=== PATIENT | female | born 1945 | race Caucasian/White ===

== ENCOUNTER 2023-07-28 13:50 | Emergency (ER) | payer MEDICARE, OTHER, SELFPAY ==
[2023-07-28] VITALS (14 sets, daily range): BP systolic 96–108; BP diastolic 54–65; PULSE 85–99; RESP 18–29; TEMP 36.7; O2SAT 92–96; BMI 25.7
--- NOTE | 2023-07-28 14:01 | ED.SOB1 ---
HPI - SOB/Dyspnea General Chief Complaint: Upper Respiratory Infection Stated Complaint: SHORTNESS OF BREATH/COUGH Time Seen by Provider: 07/28/23 14:01 Source: patient and family Mode of arrival: ambulance History of Present Illness HPI Narrative: tthis patient is here from home with her for evaluation of shortness of breath. She was in [place] approximately a week ago for not feeling well. They gave her some potassium treatments but did not diagnose influenza, Covid or respiratory syncytial virus. Her cough has continued. She is not on any antibiotics. She has a brain tumor, she is not ambulatory but she is awake and alert. Related Data Home Medications Medication Instructions Recorded Confirmed apixaban 5 mg tablet (Eliquis) 5 mg PO BID 07/28/23 07/28/23 citalopram 20 mg tablet 20 mg PO DAILY 07/28/23 07/28/23 dexamethasone 2 mg tablet 2 mg PO DAILY 07/28/23 07/28/23 famotidine 20 mg tablet 20 mg PO DAILY 07/28/23 07/28/23 furosemide 20 mg tablet 20 mg PO BID 07/28/23 07/28/23 hydrochlorothiazide 25 mg tablet 25 mg PO DAILY 07/28/23 07/28/23 lisinopril 10 mg tablet 10 mg PO DAILY 07/28/23 07/28/23 lomustine 40 mg capsule (Gleostine) 160 mg PO .COMPLEX 07/28/23 07/28/23 potassium chloride 20 mEq 20 meq PO BID 07/28/23 07/28/23 tablet,extended release(part/cryst) Allergies Allergy/AdvReac Type Severity Reaction Status Date / Time No Known Drug Allergies Allergy Verified 07/28/23 14:01 Exam Narrative Exam Narrative: patient's awake alert good historian here with several family members. We also receive records from her other hospital. That institution her respiratory syncytial virus, Covid and influenza were all negative. BNP was negative as was troponin. Additionally I will mention at this stage and her who previously had lung cancer has oxygen at home, has nebulizer machine at home and also has pulse oximetry. She's been running ninety-two percent at home. She does feel better after nebulizer treatment here with less coughing. She is currently not on any antibiotics steroids or bronchodilators Examination she's not confused she's awake alert good historian. Her skin is warm dry mucous members are moist and pink with no evidence of dehydration. Lungs have scattered bronchospastic type cough or oximetry maintained ninety-three percent. Cardiac evaluation her EKG is normal with no ST segment elevation or malignant ectopy. There is nonspecific T-wave flattening. Otherwise is normal. Her legs do not have any edema. Skin perfusion is excellent. Constitutional Vital Signs, click to edit/add: Last Vital Signs Temp 98.0 F 07/28/23 13:58 Pulse 99 H 07/28/23 13:58 Resp 18 07/28/23 13:58 BP 108/54 07/28/23 13:58 Pulse Ox 96 07/28/23 13:58 O2 Del Method Room Air 07/28/23 13:58 Course Vital Signs Vital signs: Vital Signs Temperature 98.0 F 07/28/23 13:58 Pulse Rate 99 H 07/28/23 13:58 Respiratory Rate 18 07/28/23 13:58 Blood Pressure 108/54 07/28/23 13:58 Pulse Oximetry 96 07/28/23 13:58 Oxygen Delivery Method Room Air 07/28/23 13:58 Temperature 98.0 F 07/28/23 13:58 Pulse Rate 99 H 07/28/23 13:58 Respiratory Rate 18 07/28/23 13:58 Blood Pressure 108/54 07/28/23 13:58 Pulse Oximetry 96 07/28/23 13:58 Oxygen Delivery Method Room Air 07/28/23 13:58 MDM - SOB/Dyspnea MDM Narrative Medical decision making narrative: her repeat respiratory syncytial virus testing is positive. This institution. Otherwise her laboratory testing CBC troponin and BNP are all essentially normal. His findings are consistent with respiratory syncytial virus bronchiolitis. She does have the ability to take oxygen and steroid at home. We'll give her breathing treatments every four hours. Discharge Plan Discharge Chief Complaint: Upper Respiratory Infection Clinical Impression: Respiratory syncytial virus (RSV) bronchiolitis Patient Disposition: Home, Self-Care Time of Disposition Decision: 15:51 Prescriptions / Home Meds: No Action Eliquis 5 mg tablet 5 mg PO BID citalopram 20 mg tablet 20 mg PO DAILY furosemide 20 mg tablet 20 mg PO BID hydrochlorothiazide 25 mg tablet 25 mg PO DAILY Gleostine 40 mg capsule 160 mg PO .COMPLEX Rx Instructions: 160 mg orally Q6wks; dexamethasone 2 mg tablet 2 mg PO DAILY famotidine 20 mg tablet 20 mg PO DAILY lisinopril 10 mg tablet 10 mg PO DAILY potassium chloride 20 mEq tablet,ER particles/crystals 20 meq PO BID Additional Instructions: prednisone/albuterol/return if she deteriorates or has low oxygen saturation Stand Alone Forms: Portal Instructions Referrals: DENYS HINKLE [Primary Care Provider] - 1 week
--- NOTE | 2023-07-28 14:20 | ECG_ITS ---
[facility] Test Date: 2023-07-28 Pat Name: BRAD HANDY Department: Room: - Gender: Female [employer]sembling [employer]: : 1945 Requested By: [id number] Order Number: [id number] Reading MD: ORCAEL STANLEY Measurements Intervals [place] Rate: 89 P: 40 [place]: 152 QRS: 55 QRSD: 88 T: -69 QT: 338 QTc: 384 Interpretive Statements 1100 Sinus rhythm 1470 with occasional supraventricular premature complexes [address] depression, can't exclude inferolateral ischemia 9150 abnormal ECG No previous ECG available for comparison Electronically Signed On 07-29-2023 11:30:30 EST by ROCAEL STANLEY
--- NOTE | 2023-07-28 14:20 | XR_ITS ---
The [address] [address] Patient Name: BRAD HANDY MRN: [id number] date: 1945 Sex: F Assigned Patient Location: ER Current Patient Location: ED.MAIN Accession/Order Number: [id number] Exam Date: 07/28/2023 15:00 Report Date: 07/28/2023 15:50 At the request of: STEPHAN WRIGHT Procedure: XR chest 1V EXAM: XR chest 1V COMPARISON: None available. CLINICAL INDICATION: Cough. FINDINGS: The cardiomediastinal silhouette is within normal limits. Nonspecific obscuration left hemidiaphragm. No focal consolidation. No significant pleural effusion. No pneumothorax. XR/XR chest 1V IMPRESSION: Nonspecific obscuration left hemidiaphragm. Otherwise the lungs appear clear. Electronically authenticated by: ZAID CARRERA Date: 07/28/2023 15:50
[2023-07-28] MEDS: 0.9 % SODIUM CHLORIDE 1,000 ML 100 ML IV (14:37)
[2023-07-28] MEDS: IPRATROPIUM/ALBUTEROL SULFATE 3 ML AMPUL.NEB IH (14:40)
[2023-07-28 14:43] LABS: Basophils Percent Auto 0.4 % (0.2-2.0); Eosinophils Percent Auto 0.1 % (0.9-7.0); Hematocrit 33.7 % (36.0-48.0); Hemoglobin 10.5 g/dL (12.0-16.0); Immature Granulocytes Abs Auto 0.04 10^3/uL (0.00-0.03); Immature Granulocytes Pct Auto 0.5 % (0.0-0.5); Lymphocytes Absolute Auto 0.2 10^3/uL (1.2-3.8); Lymphocytes Percent Auto 2.2 % (20.5-60.0); Mean Corpuscular HGB Conc 31.2 g/dL (29.9-35.2); Mean Corpuscular Hemoglobin 30.8 pg (26.7-34.0); Mean Corpuscular Volume 98.8 fL (81.0-99.0); Mean Platelet Volume 10.4 fL (9.5-13.5); Monocytes Absolute Auto 0.3 10^3/uL (0.3-0.8); Monocytes Percent Auto 4.5 % (1.7-12.0); Neutrophils Absolute Auto 6.8 10^3/uL (1.4-6.5); Neutrophils Percent Auto 92.3 % (43.0-75.0); Platelet Count 203 10^3/uL (150-450); Red Blood Count 3.41 10^6/uL (4.20-5.40); Red Cell Distribution Width 14.5 % (11.0-15.0); White Blood Count 7.4 10^3/uL (4.0-11.0)
[2023-07-28 14:45] LABS: PCO2 VBG 35.9 mmHg (40.0-52.0); pH VBG 7.452 (7.330-7.430)
[2023-07-28 15:02] LABS: SARS-CoV-2 Ag NEGATIVE (NEGATIVE)
[2023-07-28 15:03] LABS: Influenza Virus A Antigen Negative; Influenza Virus B Antigen Negative; Internal Control Within Normal Limits; Respiratory Syncytial Virus Detected (NOT DETECTE)
[2023-07-28 15:05] LABS: Troponin I High Sensitivity 5.7 pg/mL (4.0-51.3)
[2023-07-29 15:59] LABS: SARS-CoV-2 NAA NOT DETECTED (NOT DETECTE)
== END 2023-07-28 16:15 | disposition home or self-care (01) ==
PROVIDERS: Emergency Provider Emergency Medicine Emergency Medical Services; PCP Family Medicine
DX: J21.0 Acute bronchiolitis due to respiratory syncytial virus (principal); Z79.01 Long term (current) use of anticoagulants; Z79.899 Other long term (current) drug therapy; Z20.822 Contact with and (suspected) exposure to COVID-19
CPT/HCPCS: 36415; 71045; 82800; 83880; 84484; 85025; 87420; 87635; 87798; 87804; 87811; 93005; 94640; 99285

== ENCOUNTER 2023-07-31 02:37 | Observation (INO) | payer MEDICARE, OTHER, SELFPAY ==
[2023-07-31] VITALS (34 sets, daily range): BP systolic 124–134; BP diastolic 63–83; PULSE 78–108; RESP 16–33; TEMP 36.3–37.3; O2SAT 91–98; BMI 26.6; BMI 27.7
--- OUTSIDE RECORDS SUMMARY | 2023-07-31 02:50 | XMS_ITS | CCD ---
Author Name Unknown Address [address] [place] [address] Organization [facility] Care Team Providers Care Communications Operator Name Role Phone RICH MEJÍA Attending Unavailable RICH MEJÍA Consulting Unavailable RICH MEJÍA Admitting Unavailable DR MILVIA HINKLE Primary Care Unavailable MD Milvia Hinkle Primary Care Provider DO Anastacio Friedman Attending Provider Milvia Hinkle Primary Care Provider [phone] Sherry Winchester RN Unavailable [phone] Anshul Riggs MD Unavailable [phone] Jessica Cartagena PA-C Unavailable Aníbal JEFFERSON, Marian Unavailable Unavailable Sherry Winchester RN Unavailable ANSHUL RIGGS Referring Unavailable MILVIA HINKLE Primary Care Unavailable MILVIA HINKLE Primary Care Unavailable JESSICA CARTAGENA Referring Unavailable MD Milvia Lynch Primary Care Pr ovider PAUL Dimas Emergency Provider Milvia Lynch Primary Care Un available Kayley Dimas Attending Unavailable Kayley Dimas Admitting Unavailable MAX STALLINGS Attending Unavailable MILVIA HINKLE Primary Care Unavailable ANSHUL RIGGS Referring Unavailable MILVIA HINKLE Primary Care Unavailable MILVIA HINKLE Primary Care Unavailable TERRA AGUILERA Referring Unavailable MILVIA HINKLE Primary Care Unavailable MILVIA HINKLE Primary Care Unavailable JESSICA CARTAGENA Attending Unavailable MILVIA HINKLE Primary Care Unavailable KARAMLOU, ANSHUL Referring Unavailable MILVIA HINKLE Primary Care Unavailable MILVIA HINKLE Primary Care Unavailable KARAMLOU, ANSHUL Referring Unavailable JESSICA CARTAGENA Attending Unavailable MILVIA HINKLE Primary Care Unavailable CHANDRAKANT, MAX Referring Unavailable MILVIA HINKLE Primary Care Unavailable KARAMLOU, ANSHUL Referring Unavailable KARAMLOU, ANSHUL Attending Unavailable MILVIA HINKLE Primary Care Unavailable CHANDRAKANT, MAX Referring Unavailable MILVIA HINKLE Primary Care Unavailable KARAMLOU, ANSHUL Referring Unavailable KARAMLOU, ANSHUL Attending Unavailable MILVIA HINKLE Primary Care Unavailable CHANDRAKANT, MAX Referring Unavailable MILVIA HINKLE Primary Care Unavailable KARAMLOU, ANSHUL Referring Unavailable KARAMLOU, ANSHUL Attending Unavailable MILVIA HINKLE Primary Care Unavailable MARTINA GUTIERREZ Referring Unavailable MILVIA HINKLE Primary Care Unavailable MARTINA GUTIERREZ Attending Unavailable MILVIA HINKLE Primary Care Unavailable MILVIA HINKLE Primary Care Unavailable KARAMLOU, ANSHUL Referring Unavailable MILVIA HINKLE Primary Care Unavailable KARAMLOU, ANSHUL Attending Unavailable MILVIA HINKLE Primary Care Unavailable Jenn HOLT Attending Unavailable MILVIA HINKLE Primary Care Unavailable MILVIA HINKLE Primary Care Unavailable KARAMLOU, ANSHUL Referring Unavailable LOTUS KATE Referring Unavailable PUNEET GAUTAMUEL Attending Unavailable MILVIA HINKLE Primary Care Unavailable MILVIA HINKLE Primary Care Unavailable CHANDRAKANT, MAX Attending Unavailable MILVIA HINKLE Primary Care Unavailable CHANDRAKANT, MAX Referring Unavailable MILVIA HINKLE Primary Care Unavailable MILVIA HINKLE Primary Care Unavailable YISSEL GREENWOOD Referring Unavailable SERLETIS, DEMITRE Referring Unavailable MILVIA HINKLE Primary Care Unavailable TERRA AGUILERA Referring Unavailable MILVIA HINKLE Primary Care Unavailable MILVIA HINKLE Primary Care Unavailable KARAMLOU, ANSHUL Attending Unavailable MILVIA HINKLE Primary Care Unavailable KARAMLOU, ANSHUL Referring Unavailable PUNEET BARKERAN Attending Unavailable JEWELL VANDANA Admitting Unavailable MILVIA HINKLE Primary Care Unavailable MARQUIS, ROSE Consulting Unavailable MILVIA HINLKE Primary Care Unavailable KARAMLOU, ANSHUL Attending Unavailable MILVIA HINKLE G Primary Care Unavailable KARAMLOU, ANSHUL Referring Unavailable ARIN, MILVIA G Primary Care Unavailable KARAMLOU, ANSHUL Attending Unavailable KARAMLOU, ANSHUL Referring Unavailable KARAMLOU, ANSHUL Referring Unavailable ARIN, MILVIA Griffith Primary Care Unavailable ARIN, MILVIA Griffith Primary Care Unavailable SA CHANDRAKANTJU Attending Unavailable MILVIA HINKLE Primary Care Unavailable CHANDRAKANT, MAX Referring Unavailable MILVIA HINKLE Primary Care Unavailable KARAMLOU, ANSHUL Referring Unavailable KARAMLOU, ANSHUL Attending Unavailable MILVIA HINKLE Primary Care Unavailable KARAMLOU, ANSHUL Referring Unavailable DIYA MURRY Attending Unavailable MILVIA HINKLE Primary Care Unavailable FIGUEROA, YVONNE Referring Unavailable JACKLYN MIR Attending Unavailable JACKLYN MIR Admitting Unavailable MILVIA HINKLE Primary Care Unavailable TERENCE HEARD Attending Unavailable MILVIA HINKLE Primary Care Unavailable DEMOND CAMARENA Admitting Unavailable JACKLYN MIR Attending Unavailable SERLETIS, DEMITRE Admitting Unavailable MILVIA HINKLE Primary Care Unavailable PUNEET BARKERAN Attending Unavailable JEWELL, VANDANA Admitting Unavailable MARQUIS, ROSE Consulting Unavailable MILVIA HINKLE Primary Care Unavailable KARAMLOU, ANSHUL Attending Unavailable PUNEET GAUTAMUEL Referring Unavailable MILVIA HINKLE Primary Care Unavailable ARIN, MILVIA Griffith Primary Care Unavailable MILVIA HINKLE Primary Care Unavailable SA CHANDRAKANTJU Attending Unavailable JACKLYN MIR Referring Unavailable KARAMLOU, ANSHUL Referring Unavailable ADOLFO MARTINS Attending Unavailable MILVIA HINKLE Primary Care Unavailable DIPIKA DUFF Referring Unavaila ble MILVIA HINKLE Primary Care Unavailable KARAMLOU, ANSHUL Referring Unavailable JESSICA CARTAGENA Attending Unavailable MILVIA HINKLE Primary Care Unavailable MILVIA HINKLE Primary Care Unavailable MILVIA HINKLE Primary Care Unavailable MILVIA HINKLE Primary Care Unavailable MILVIA HINKLE Primary Care Unavailable NEVAFedeBRENANMARTINA Attending Unavailable MILVIA HINKLE Primary Care Unavailable MILVIA HINKLE Primary Care Unavailable JESSICA CARTAGENA Referring Unavailable MILVIA HINKLE Primary Care Unavailable MILVIA HINKLE Primary Care Unavailable KARAMLOU, ANSHUL Attending Unavailable MILVIA HINKLE Primary Care Unavailable MILVIA HINKLE Primary Care Unavailable CHANDRAKANT, MAX Referring Unavailable MILVIA HINKLE Primary Care Unavailable KARAMLOU, ANSHUL Referring Unavailable KARAMLOU, ANSHUL Attending Unavailable MILVIA HINKLE Primary Care Unavailable MILVIA HINKLE Primary Care Unavailable KARAMLOU, ANSHUL Referring Unavailable JESSICA CARTAGENA Attending Unavailable MILVIA HINKLE Primary Care Unavailable KARAMLOU, ANSHUL Referring Unavailable MILVIA HINKLE Primary Care Unavailable MILVIA HINKLE Primary Care Unavailable MILVIA HINKLE Primary Care Unavailable MILVIA HINKLE Primary Care Unavailable MILVIA HINKLE Primary Care Unavailable CHANDRAKANT, MAX Attending Unavailable MILVIA HINKLE Primary Care Unavailable MILVIA HINKLE Primary Care Unavailable KARAMLOU, ANSHUL Referring Unavailable MILVIA HINKLE Primary Care Unavailable KARAMLOU, ANSHUL Attending Unavailable MILVIA HINKLE Primary Care Unavailable CHANDRAKANT, MAX Attending Unavailable MILVIA HINKLE Primary Care Unavailable PATO BELTRE Attending Unavailable PATO BELTRE Admitting Unavailable MILVIA HINKLE Primary Care Unavailable MILVIA HINKLE Primary Care Unavailable MILVIA HINKLE Primary Care Unavailable JESSICA CARTAGENA Attending Unavailable MILVIA HINKLE Primary Care Unavailable JESSICA CARTAGENA Referring Unavailable MILVIA HINKLE Primary Care Unavailable MILVIA HINKLE Primary Care Unavailable MILVIA HINKLE Primary Care Unavailable CHANDRAKANT, MAX Attending Unavailable MILVIA HINKLE Primary Care Unavailable MILVIA HINKLE Primary Care Unavailable MILVIA HINKLE Primary Care Unavailable DIPIKA DUFF Referring Unavaila ble MILVIA HINKLE Primary Care Unavailable MILVIA HINKLE Primary Care Unavailable MILVIA HINKLE Primary Care Unavailable CHANDRAKANT, MAX Referring Unavailable MILVIA HINKLE Primary Care Unavailable LOTUS, KATE Referring Unavailable MILVIA HINKLE Primary Care Unavailable LOTUS, KATE Attending Unavailable LOTUS, KATE Referring Unavailable MILVIA HINKLE Primary Care Unavailable LOTUS, KATE Referring Unavailable ARIN, MILVIA Griffith Primary Care Unavailable LOTUS, KATE Referring Unavailable MILVIA HINKLE Primary Care Unavailable MILVIA HINKLE Primary Care Unavailable ARIN, MILVIA Griffith Primary Care Unavailable CHANDRAKANT, MAX Attending Unavailable CHANDRAKANT, MAX Referring Unavailable MILVIA HINKLE Primary Care Unavailable KARAMLOU, ANSHUL Referring Unavailable MILVIA HINKLE Primary Care Unavailable CHANDRAKANT, MAX Referring Unavailable MILVIA HINKLE Primary Care Unavailable KARAMLOU, ANSHUL Referring Unavailable KARAMLOU, ANSHUL Attending Unavailable MILVIA HINKLE Primary Care Unavailable CHANDRAKANT, MAX Referring Unavailable MILVIA HINKLE Primary Care Unavailable ARIN, MILVIA Griffith Primary Care Unavailable Allergies Allergy Classification Reported Allergen(s) Allergy Type Date of Onset Reaction(s) Facility (20 sources) pantoprazole; Translations: [PANTOPRAZOLE] Drug Allergy 11-02-2022 Other: See Comments [facility] Medications Current Medications Medication Drug Class(es) Dates Sig (Normalized) Sig (Original) dexamethasone 2 mg oral tablet (20 sources) Corticosteroid Start: 06-15-2023 End: 09-13-2023 take 1 tablet by mouth once daily at breakfast dexAMETHasone (DECADRON) 2 mg tablet Take 1 tablet by mouth daily with breakfast. 30 tablet 2 06/15/2023 09/13/2023 Active Start: 01-09-2023 End: 06-29-2023 take 1 tablet by mouth once daily at breakfast dexAMETHasone (DECADRON) 4 mg tablet Take 1 tablet by mouth daily with breakfast. 30 tablet 1 04/04/2023 06/29/2023 Discontinued Start: 01-09-2023 End: 01-09-2023 take 1 tablet by mouth once daily at breakfast dexAMETHasone (DECADRON) 2 mg tablet Take 1 tablet by mouth daily with breakfast. 90 tablet 1 01/09/2023 01/09/2023 Discontinued Start: 12-20-2022 End: 01-19-2023 dexAMETHasone (DECADRON) 4 m g tablet Take 1 tablet by mouth every 48 hours. 15 tablet 0 12/20/2022 01/09/2023 Discontinued Start: 11-07-2022 End: 02-05-2023 take 1 tablet by mouth twice daily at mealtime dexAMETHasone (DECADRON) 4 mg tablet Take 1 tablet by mouth twice daily with meals. 60 tablet 2 11/07/2022 12/20/2022 Discontinued Start: 10-16-2022 End: 10-24-2022 dexAMETHasone (DECADRON) 2 m g tablet Take as discussed. 2 tablets in am (4mg) and 1 tablet in PM (2mg). Can increase to 2 tablets in AM and PM in necessary. 60 tablet 2 10/24/2022 Active Start: 09-07-2022 End: 10-12-2022 take 1 tablet by mouth every twelve hours dexAMETHasone (DECADRON) 2 mg tablet Take 1 tablet by mouth every 12 hours for 30 days. 60 tablet 0 09/07/2022 10/06/2022 Discontinued Start: 08-28-2022 End: 09-24-2022 take 1 tablet by mouth twice daily at mealtime dexAMETHasone (DECADRON) 2 mg tablet Take 1 tablet by mouth twice daily with meals for 54 doses. 54 tablet 0 08/28/2022 09/12/2022 Discontinued (Duplicate Entry) Start: 08-10-2022 End: 08-17-2022 take 1 tablet by mouth twice daily at mealtime dexAMETHasone (DECADRON) 6 mg tablet Take 1 tablet by mouth twice daily with meals for 7 days. 14 tablet 0 08/10/2022 08/17/2022 Suspended Comment on above: Take 1 tablet by mayank th twice daily with meals for 7 days. Take 1 tablet by mayank th twice daily with meals for 54 doses. Take 1 tablet by mayank th every 12 hours for 30 days. Take 2 tablets by mo [facility] twice daily with meals. Take as discussed. 2 tablets in am (4mg) and 1 tablet in PM (2mg). Can increase to 2 tablets in AM and PM in necessary. Take 1 tablet by mayank th twice daily with meals. Take 1 tablet by mayank th twice daily with Breakfast and Dinner. Take 1 tablet by mayank th every 48 hours. Take 1 tablet by mayank th daily with breakfast. furosemide 20 mg oral tablet (9 sources) Loop Diuretic Start: 06-15-20 End: 09-13-19 take 1 tablet by mouth twice daily furosemide (LASIX) 20 mg tablet Take 1 tablet by mouth two times a day. TAKE 60MG (3 X 20MG TABLETS) TWICE DAILY. 60 tablet 2 06/15/2023 09/13/2023 Active Comment on above: Take 1 tablet by mayank th two times a day. TAKE 60MG (3 X 20MG TABLETS) TWICE DAILY. iv contrast (will be provided with radiology test) (11 sources) Start: 06-18-20 End: 06-19-20 inject 1 dose intravenously once iv contrast (will be provided with radiology test) Indications: Glioblastoma (HCC) MRI Brain Inject, intravenously, once for 1 dose.No IV access, insert saline lock prior to beginning of sedation, infusion, injection of imaging exam.Discontinue saline lock post exam. If Pt. has a central line or IVAD, may access for administration according to line specific nursing protocol.Once exam is complete flush line and de-access according to line specific nursing protocol in the MR contrast administration guidelines link 1 Each 0 06/18/2023 06/19/2023 Active Start: 06-07-2023 End: 06-08-2023 inject 1 dose intravenously once iv contrast (will be provided with radiology test) Indications: Glioblastoma (HCC) MRI Brain Inject, intravenously, once for 1 dose.No IV access, insert saline lock prior to beginning of sedation, infusion, injection of imaging exam.Discontinue saline lock post exam. If Pt. has a central line or IVAD, may access for administration according to line specific nursing protocol.Once exam is complete flush line and de-access according to line specific nursing protocol in the MR contrast administration guidelines link 1 Each 0 06/07/2023 06/08/2023 Active Start: 04-04-2023 End: 04-05-2023 inject 1 dose intravenously once iv contrast (will be provided with radiology test) MRI Brain Inject, intravenously, once for 1 dose.No IV access, insert saline lock prior to beginning of sedation, infusion, injection of imaging exam.Discontinue saline lock post exam. If Pt. has a central line or IVAD, may access for administration according to line specific nursing protocol.Once exam is complete flush line and de-access according to line specific nursing protocol in the MR contrast administration guidelines link 1 Each 0 04/04/2023 04/05/2023 Active Start: 01-09-2023 End: 01-10-2023 inject 1 dose intravenously once iv contrast (will be provided with radiology test) Indications: Glioblastoma multiforme (HCC) MRI Brain Inject, intravenously, once for 1 dose.No IV access, insert saline lock prior to beginning of sedation, infusion, injection of imaging exam.Discontinue saline lock post exam. If Pt. has a central line or IVAD, may access for administration according to line specific nursing protocol.Once exam is complete flush line and de-access according to line specific nursing protocol in the MR contrast administration guidelines link 1 Each 0 01/09/2023 01/10/2023 Active Start: 11-13-2022 End: 11-14-2022 inject 1 dose intravenously once iv contrast (will be provided with radiology test) Indications: Glioblastoma multiforme (HCC) MRI Brain Inject, intravenously, once for 1 dose.No IV access, insert saline lock prior to beginning of sedation, infusion, injection of imaging exam.Discontinue saline lock post exam. If Pt. has a central line or IVAD, may access for administration according to line specific nursing protocol.Once exam is complete flush line and de-access according to line specific nursing protocol in the MR contrast administration guidelines link 1 Each 0 11/13/2022 11/14/2022 Start: 11-02-2022 End: 11-03-2022 inject 1 dose intravenously once iv contrast (will be provided with radiology test) Indications: Glioblastoma multiforme (HCC) MRI Brain Inject, intravenously, once for 1 dose.No IV access, insert saline lock prior to beginning of sedation, infusion, injection of imaging exam.Discontinue saline lock post exam. If Pt. has a central line or IVAD, may access for administration according to line specific nursing protocol.Once exam is complete flush line and de-access according to line specific nursing protocol in the MR contrast administration guidelines link 1 Each 0 11/02/2022 11/03/2022 Start: 11-02-2022 End: 11-03-2022 inject 1 dose intravenously once iv contrast (will be provided with radiology test) Indications: Glioblastoma multiforme (HCC) MRI Brain Inject, intravenously, once for 1 dose.No IV access, insert saline lock prior to beginning of sedation, infusion, injection of imaging exam.Discontinue saline lock post exam. If Pt. has a central line or IVAD, may access for administration according to line specific nursing protocol.Once exam is complete flush line and de-access according to line specific nursing protocol in the MR contrast administration guidelines link 1 Each 0 11/02/2022 11/03/2022 Active Comment on above: MRI Brain Inject, in travenously, once for 1 dose.No IV access, insert saline lock prior to beginning of sedation, infusion, injection of imaging exam.Discontinue saline lock post exam. If Pt. has a central line or IVAD, may access for administration according to line specific nursing protocol.Once exam is complete flush line and de-access according to line specific nursing protocol in the MR contrast administration guidelines link lisinopril 10 mg oral tablet (20 sources) Angiotensin Converting Enzyme Inhibitor Start: 3 End: 3 take 1 tablet by mouth once daily lisinopril (ZESTRIL) 10 mg tablet Take 1 tablet by mouth once daily. 90 tablet 0 04/18/2023 07/17/2023 Active Start: 06-05-2022 End: 09-19-2022 lisinopril (ZESTRIL, PRINIVI L) 10 mg tablet Comment on above: Take 1 tablet by mayank th once daily. Take 1 tablet by mayank th every morning. LORazepam 1 mg oral tablet (20 sources) Benzodiazepine Start: 01-09-2023 End: 01-11-2023 LORazepam (ATIVAN) 1 mg tablet Indications: Glioblastoma multiforme (HCC) , Anxiety about health Take 1 tablet by mouth one time only for 1 dose. Take 30 min prior to MRI 2 tablet 0 01/09/2023 01/11/2023 Active Start: 11-30-2022 End: 12-02-2022 LORazepam (ATIVAN) 1 mg tabl et Indications: Glioblastoma multiforme (HCC) Take 1 tablet by mouth one time only for 1 dose. Take 30 min prior to MRI 2 tablet 0 11/30/2022 12/02/2022 Active Start: 11-07-2022 End: 11-24-2022 LORazepam (ATIVAN) 1 mg tabl et Take 1 tablet by mouth once daily as needed (prior to MRI) for up to 2 doses. 2 tablet 0 11/07/2022 11/24/2022 Active Start: 11-02-2022 End: 11-04-2022 take 1 tablet by mouth once LORazepam (ATIVAN) 1 mg ta blet Indications: Glioblastoma multiforme (HCC) Take 1 tablet by mouth one time only for 1 dose. Prior to MRI 2 tablet 0 11/02/2022 11/04/2022 Active Start: 09-20-2022 End: 09-25-2022 LORazepam (ATIVAN) 0.5 mg In dications: Brain tumor (HCC) Take half of a tablet (0.25 mg) one hour prior to radiation treatment as needed for anxiety/claustrophobia. 15 tablet 0 09/20/2022 09/25/2022 Start: 09-11-2022 End: 09-20-2022 LORazepam (ATIVAN) 0.5 mg In dications: Brain tumor (HCC) Take one tablet 60 minutes prior to radiation treatment as needed for anxiety/claustrophobia. May repeat once 15 minutes prior to radiation treatment for anxiety/claustrophobia if still necessary. Do not start before September 11, 2022. 10 tablet 0 09/11/2022 09/20/2022 Discontinued Start: 08-02-2022 LORazepam (ATI VAN) 0.5 mg Comment on above: Take one tablet 60 m inutes prior to radiation treatment as needed for anxiety/claustrophobia. May repeat once 15 minutes prior to radiation treatment for anxiety/claustrophobia if still necessary. Do not start before September 11, 2022. Take half of a table t (0.25 mg) one hour prior to radiation treatment as needed for anxiety/claustrophobia. Take 1 tablet by mayank th one time only for 1 dose. Prior to MRI Take 1 tablet by mayank th once daily as needed (prior to MRI) for up to 2 doses. Take 1 tablet by mayank th one time only for 1 dose. Take 30 min prior to MRI sulfamethoxazole 800 mg / trimethoprim 160 mg oral tablet (20 sources) Dihydrofolate Reductase Inhibitor Antibacterial, Sulfonamide Antimicrobial Start: 2022 End: 2022 take 1 tablet by mouth three times weekly sulfamethoxazole- trimethoprim (BACTRIM DS) 800-160 mg per tablet Take 1 tablet by mouth three times a week (Sun, Sun, Sun). 12 tablet 0 11/16/2022 11/17/2022 Discontinued Start: 11-08-2022 End: 05-30-2023 take 1 tablet by mouth once sulfamethoxazole-trimethoprim (BACTRIM D S) 800-160 mg per tablet Take 1 tablet by mouth every Sunday,Sunday,Sunday. 24 tablet 2 02/07/2023 05/30/2023 Active Comment on above: 1 tablet by ORAL/FEE DING TUBE route every Sunday,Sunday,Sunday. Take 1 tablet by mayank th three times a week (Sun, Sun, Sun). Take 1 tablet by mayank th every Sunday,Sunday,Sunday. Completed/Discontinued Medications Medication Drug Class(es) Dates Sig (Normalized) Sig (Original) acetaminophen 325 mg oral tablet (20 sources) Start: 08-10-2022 End: 01-09-2023 take 2 tablets by mouth every six hours as needed acetaminophen (TYLENOL) 325 mg tablet 2 tablets by ORAL/FEEDING TUBE route every 6 hours as needed for pain or fever (specify). 0 08/10/2022 01/09/2023 Discontinued Comment on above: 2 tablets by ORAL/FE EDING TUBE route every 6 hours as needed for pain or fever (specify). aluminum hydroxide 40 mg/ml / magnesium hydroxide 40 mg/ml / simethicone 4 mg/ml oral suspension (20 sources) Start: 11-07-2022 take 30 mL by mouth every six hours as needed aluminum-magnesium hydroxide-simethico ne 200-200-20 mg/5 mL suspension Take 30 mL by mouth every 6 hours as needed. 0 11/07/2022 Active Comment on above: Take 30 mL by mouth every 6 hours as needed. apixaban 5 mg oral tablet (20 sources) Factor Xa Inhibitor Start: 11-16-2022 take 1 tablet by mouth in the morning, then take 1 tablet by mouth at bedtime apixaban (ELIQUIS) 5 mg tab(s) Take 1 tablet (5 mg total) by mouth in the morning and 1 tablet (5 mg total) before bedtime. Do all this for 30 days. Indications: Blood Clot in a Deep Vein. 60 tablet 0 11/16/2022 Active Start: 09-27-2022 End: 11-08-2022 take 1 tablet by mouth twice daily apixaban (ELIQUIS) 5 mg tab(s) Take 1 tablet by mouth twice daily. 180 tablet 3 10/09/2022 11/08/2022 Active Start: 09-20-2022 End: 09-27-2022 take 1 tablet by mouth twice daily apixaban (ELIQUIS) 2.5 mg tab(s) Take 1 tablet by mouth twice daily. 60 tablet 1 09/20/2022 09/27/2022 Discontinued Comment on above: Take 1 tablet by mayank th twice daily. Take 1 tablet (5 mg total) by mouth in the morning and 1 tablet (5 mg total) before bedtime. Do all this for 30 days. Indications: Blood Clot in a Deep Vein. atorvastatin 40 mg oral tablet (20 sources) HMG-CoA Reductase Inhibitor Start: 06-05-2022 End: 09-19-2022 atorvastatin (LIPITOR) 40 mg tablet cephalexin 500 mg oral capsule (7 sources) Cephalosporin Antibacterial Start: 12-19-2022 End: 01-09-2023 cephALEXin (KEFLEX) 500 mg capsule Start: 07-25-2022 cephALEXin (KE FLEX) 500 mg capsule citalopram 20 mg oral tablet (20 sources) Serotonin Reuptake Inhibitor Start: 01-09-2023 End: 04-09-2023 take 1 tablet by mouth once daily citalopram (CELEXA) 20 mg tablet Take 1 tablet by mouth once daily. 30 tablet 2 04/05/2023 Active Comment on above: Take 1 tablet by mayank th once daily. diclofenac sodium 50 mg delayed release oral tablet (3 sources) Nonsteroidal Anti-inflammatory Drug Start: 06-05-2022 diclofenac, EC, (VOLTAREN) 50 mg EC tablet docusate sodium 100 mg oral capsule (14 sources) Start: 08-28-2022 End: 09-19-2022 take 1 capsule by mouth every twelve hours as needed docusate sodium (COLACE) 100 mg capsule Take 1 capsule by mouth twice daily as needed for constipation. 0 08/28/2022 09/19/2022 Discontinued Comment on above: Take 1 capsule by mo [facility] twice daily as needed for constipation. docusate sodium 50 mg / sennosides, shelter 8.6 mg oral tablet (10 sources) Start: 08-28-2022 End: 09-14-2022 take 1 tablet by mouth twice daily senna-docusate (SENNA-S) 8.6-50 mg per tablet 1 tablet by ORAL/FEEDING TUBE route twice daily. 0 08/28/2022 09/14/2022 Discontinued (Discontinued by Patient) Comment on above: 1 tablet by ORAL/FEE DING TUBE route twice daily. ergocalciferol 1.25 mg oral capsule (20 sources) Provitamin D2 Compound Start: 06-05-2022 End: 01-09-2023 take 1 capsule by mouth every week ergocalciferol 50,000 unit capsule (VITAMIN D2, DRISDOL) Take 50,000 Units by mouth one time a week. 0 06/05/2022 01/09/2023 Discontinued (Discontinued by Patient) Comment on above: Take 50,000 Units by mouth one time a week. famotidine 20 mg oral tablet (20 sources) Histamine-2 Receptor Antagonist Start: 11-07-2022 End: 03-07-2023 take 1 tablet by mouth twice daily at bedtime famotidine (PEPCID) 20 mg tablet Take 1 tablet by mouth twice daily in the morning and before bedtime. 60 tablet 0 03/07/2023 Active Comment on above: Take 1 tablet by mayank th twice daily. Take 1 tablet by mayank twice daily in the morning and before bedtime. FLUoxetine 40 mg oral capsule (20 sources) Serotonin Reuptake Inhibitor Start: 09-27-2022 End: 01-09-2023 take 1 capsule by mouth once daily in the morning FLUoxetine (PROZAC) 40 mg capsule Take 1 capsule by mouth every morning. 90 capsule 0 12/25/2022 01/09/2023 Discontinued (Side Effects) Comment on above: Take 1 capsule by mo uth once daily. Take 1 capsule by mo uth every morning. granisetron 1 mg oral tablet (20 sources) Serotonin-3 Receptor Antagonist Start: 06-18-2023 take 1 tablet by mouth once granisetron HCl (KYTRIL) 1 mg tablet Indications: Glioblastoma (HCC) Take 1 tablet by mouth 1 hour before taking chemo. May take every 12 hours after. 30 tablet 0 06/18/2023 Active Start: 09-13-2022 End: 01-09-2023 take 1 tablet by mouth once granisetron HCl (KYTRIL) 1 mg tablet Indications: Glioblastoma (HCC) Take 1 tablet by mouth 1 hour before taking chemo. May take every 12 hours after. 30 tablet 0 06/18/2023 Active Comment on above: Take 1 tablet by mayank th 1 hour prior to temozolomide dose to prevent nausea, may take an additional dose in the am if needed Take 1 tablet by mayank th 1 hour before taking chemo. May take every 12 hours after. 1 ml heparin sodium, porcine 5000 unt/ml injection (6 sources) Unfractionated Heparin, Anti-coagulant Star t: 01-09 End: 08-24 inject 1 mL by subcutaneous injection every eight hours heparin 5,000 unit/mL injection Inject 1 mL subcutaneously every 8 hours. 0 08/28/2022 09/12/2022 Discontinued Comment on above: Inject 1 mL subcutan eously every 8 hours. hydroCHLOROthiazide 12.5 mg oral tablet (20 sources) Thiazide Diuretic Star t: 10-22 take 1 tablet by mouth once daily in the morning hydroCHLOROthiazide 12.5 mg tablet Take 1 tablet by mouth every morning. 30 tablet 0 11/16/2022 Active Start: 11-08-2022 End: 02-06-2023 take 1 tablet by mouth once daily hydroCHLOROthiazide 25 mg tablet 1 tablet by ORAL/FEEDING TUBE route once daily. 30 tablet 2 11/08/2022 11/17/2022 Discontinued Start: 06-05-2022 End: 09-19-2022 take 1 tablet by mouth once daily hydroCHLOROthiazide (HYDRODIURIL, ESIDRIX) 25 mg tablet Take 25 mg by mouth once daily. 0 06/05/2022 09/19/2022 Discontinued Comment on above: Take 25 mg by mouth once daily. 1 tablet by ORAL/FEE DING TUBE route once daily. Take 1 tablet by mayank th every morning. levETIRAcetam 750 mg oral tablet (20 sources) Start: 08-10-19 End: 03-07-20 take 1 tablet by mouth twice daily in the morning levETIRAcetam (KEPPRA) 750 mg tablet Take 1 tablet by mouth twice daily in the morning and before bed. 60 tablet 0 11/16/2022 03/07/2023 Discontinued Comment on above: Take 1 tablet by mayank th twice daily for 7 days. Take 1 tablet by mayank th twice daily. Maintain until follow-up. Take 1 tablet by mayank th twice daily at 6AM and 9PM. Take 1 tablet by mayank th twice daily. Take 1 tablet twice a day on Sunday, Sunday, and Sunday Take 1 tablet by mayank th twice daily in the morning and before bed. lomustine 40 mg oral capsule (6 sources) Alkylating Drug Start: 07-02-20 End: 07-03-20 lomustine (GLEOSTINE) 40 mg capsule Take 4 capsules (160 mg) by mouth every 6 weeks. First dose 06/22/23, next dose due 08/03/23 4 capsule 2 07/03/2023 Active Start: 06-18-2023 End: 06-19-2023 take 4 capsules by mouth once lomustine (GLEOSTINE) 40 mg capsule Indications: Glioblastoma (HCC) Take 4 capsules (160 mg) by mouth one time only for 1 dose. 4 capsule 0 06/18/2023 06/19/2023 Active Comment on above: Take 4 capsules (160 mg) by mouth one time only for 1 dose. Take 4 capsules (160 mg) by mouth every 6 weeks. First dose 06/22/23, next dose due 08/03/23 Take 160 mg by mouth every 6 weeks. First does 06/22/23, next dose due 08/03/23 meclizine hydrochloride 25 mg oral tablet (20 sources) Antiemetic Start: 06-05-20 End: 09-19-19 meclizine (ANTIVERT) 25 mg tab Take 25 mg by mouth as needed. 0 06/05/2022 09/19/2022 Discontinued Comment on above: Take 25 mg by mouth as needed. methocarbamol 750 mg oral tablet (6 sources) Muscle Relaxant Start: 08-28-19 End: 09-12-19 take 1 tablet by mouth three times daily methocarbamol (ROBAXIN) 750 mg tablet 1 tablet by ORAL/FEEDING TUBE route three times daily. 0 08/28/2022 09/12/2022 Discontinued (Discontinued by another Health Care Provider) Comment on above: 1 tablet by ORAL/FEE DING TUBE route three times daily. methylphenidate hydrochloride 5 mg oral tablet (20 sources) Central Nervous System Stimulant Start: 04-04-20 End: 06-29-20 take 2 tablets by mouth once daily methylphenidate (RITALIN) 5 mg tablet Indications: Glioblastoma multiforme (HCC) Take 2 tablets by mouth once daily for 30 days. 60 tablet 0 04/18/2023 06/29/2023 Discontinued (Course of therapy completed) Start: 03-27-2023 End: 04-26-2023 take 1 tablet by mouth twice daily methylphenidate (RITALIN) 5 mg tablet Indications: Glioblastoma multiforme (HCC) Take 1 tablet by mouth twice daily for 30 days. 60 tablet 0 03/27/2023 04/04/2023 Discontinued Start: 03-07-2023 End: 04-06-2023 take 1 tablet by mouth once daily methylphenidate (RITALIN) 5 mg tablet Indications: Glioblastoma multiforme (HCC) Take 1 tablet by mouth once daily for 30 days. 30 tablet 0 03/07/2023 03/27/2023 Discontinued Comment on above: Take 1 tablet by mayank once daily for 30 days. Take 1 tablet by mayank twice daily for 30 days. Take 2 tablets by mo [facility] once daily for 30 days. ondansetron 8 mg oral tablet (2 sources) Serotonin-3 Receptor Antagonist Start: 023 End: 023 take 1 tablet by mouth every eight hours as needed ondansetron (ZOFRAN) 8 mg tablet Take 1 tablet by mouth every 8 hours as needed for nausea/vomiting. 30 tablet 1 09/12/2022 09/13/2022 Discontinued Comment on above: Take 1 tablet by mayank every 8 hours as needed for nausea/vomiting. pantoprazole 40 mg delayed release oral tablet (20 sources) Proton Pump Inhibitor Start: End: take 1 tablet by mouth once daily in the morning pantoprazole DR (PROTONIX) 40 mg tablet Take 1 tablet by mouth once daily at 6 am for 30 days. 30 tablet 0 10/20/2022 11/02/2022 Discontinued (Allergic response) Comment on above: Take 1 tablet by mayank th DAILY (6 AM). Take 1 tablet by mayank th once daily at 6 am for 30 days. polyethylene glycol 3350 40157 mg powder for oral solution (11 sources) Osmotic Laxative Start: End: polyethylene glycol 3350 17 gram packet Take 1 Packet by mouth once daily as needed. Dissolve dose in 4 - 8 ounces of liquid and take as directed. 0 11/07/2022 01/09/2023 Discontinued (Discontinued by Patient) Comment on above: Take 1 Packet by mayank th once daily as needed. Dissolve dose in 4 - 8 ounces of liquid and take as directed. prochlorperazine 10 mg oral tablet (20 sources) Phenothiazine Start: End: take 1 tablet by mouth every four hours as needed prochlorperazine (COMPAZINE) 10 mg tablet Take 1 tablet by mouth every 4 hours as needed. 30 tablet 1 09/12/2022 01/09/2023 Discontinued (Discontinued by Patient) Start: 08-28-2022 End: 09-13-2022 take 10 mg intravenously every six hours as needed prochlorperazine (COMPAZINE) 10 mg/2 mL (5 mg/mL) soln injection Inject 10 mg intravenously every 6 hours as needed. 0 08/28/2022 09/13/2022 Discontinued Comment on above: Inject 10 mg intrave nously every 6 hours as needed. Take 1 tablet by mayank th every 4 hours as needed. temozolomide 20 mg oral capsule (20 sources) Alkylating Drug Start: 03-07-2023 temozolomide (TEMODAR) 20 mg capsule Take 1 capsule (20 mg) by mouth once daily with 1 other temozolomide prescription for 270 mg total. 5 capsule 1 03/07/2023 Active Start: 01-10-2023 End: 03-07-2023 temozolomide (TEMODAR) 5 mg capsule Take 3 capsules (15 mg) by mouth once daily with 1 other temozolomide prescription for 265 mg total. 15 capsule 3 01/10/2023 03/07/2023 Discontinued Start: 11-07-2022 End: 01-09-2023 temozolomide (TEMODAR) 20 mg capsule Take 1 capsule (20 mg) by mouth once daily for 5 days with 1 other temozolomide prescription for 270 mg total. 5 capsule 0 11/30/2022 01/09/2023 Discontinued Start: 11-07-2022 End: 03-07-2023 Temozolomide 250 mg capsule Take 1 capsule (250 mg) by mouth once daily with 1 other Temozolomide prescription for 270 mg total. 5 capsule 1 03/07/2023 Active Start: 09-12-2022 End: 10-25-2022 temozolomide (TEMODAR) 20 mg capsule Take 1 capsule (20 mg) by mouth once daily with 2 other temozolomide prescriptions for 135 mg total. 42 capsule 0 09/12/2022 Active Start: 09-12-2022 End: 10-25-2022 temozolomide (TEMODAR) 5 mg capsule Take 3 capsules (15 mg) by mouth once daily with 2 other temozolomide prescriptions for 135 mg total. 126 capsule 0 09/12/2022 Active Start: 09-12-2022 End: 10-25-2022 temozolomide (TEMODAR) 100 m g capsule Take 1 capsule (100 mg) by mouth once daily with 2 other temozolomide prescriptions for 135 mg total. 42 capsule 0 09/12/2022 Active Comment on above: Take 3 capsules (15 mg) by mouth once daily with 2 other temozolomide prescriptions for 135 mg total. Take 1 capsule (20 m g) by mouth once daily with 2 other temozolomide prescriptions for 135 mg total. Take 1 capsule (100 mg) by mouth once daily with 2 other temozolomide prescriptions for 135 mg total. Take 1 capsule (20 m g) by mouth once daily for 5 days with 1 other temozolomide prescription for 270 mg total. Take 1 capsule (250 mg) by mouth once daily for 5 days with 1 other Temozolomide prescription for 270 mg total. Take 1 capsule (250 mg) by mouth once daily for 5 days. Take 3 capsules (15 mg) by mouth once daily with 1 other temozolomide prescription for 265 mg total. Take 1 capsule (250 mg) by mouth once daily with 1 other Temozolomide prescription for 265 mg total. Take 1 capsule (20 m g) by mouth once daily with 1 other temozolomide prescription for 270 mg total. Take 1 capsule (250 mg) by mouth once daily with 1 other Temozolomide prescription for 270 mg total. Problems Active Problems Problem Classification Problem Date Documented Date Episodic/Chronic Acute cerebrovascular disease (20 sources) Hematoma of subdural space of neuraxis; Translations: [SDH (subdural hematoma)] Onset: 3 08-25-2022 Chronic Anxiety disorders (5 sources) Anxiety about body function or health; Translations: [Other specified anxiety disorders] Onset: 3 Chronic Anxiety disorders (1 source) Anxiety disorder due to a general medical condition; Translations: [Anxiety disorder due to known physiological condition] 05-11-2023 Episodic Cancer of brain and nervous system (20 sources) Glioblastoma multiforme ; Translations: [Malignant neoplasm of brain, unspecified] Onset: 3 Chronic Coagulation and hemorrhagic disorders (5 sources) Hypercoagulability state; Translations: [Other primary thrombophilia] Onset: 3 05-07-2023 Chronic Disorders of lipid metabolism (20 sources) Hyperlipidemia; Translations: [Hyperlipidemia, unspecified] Onset: 3 08-08-2022 Chronic Essential hypertension (20 sources) Hypertensive disorder; Translations: [Essential (primary) hypertension] Onset: 3 08-08-2022 Chronic Malaise and fatigue (20 sources) Asthenia; Translations: [Weakness] Onset: 3 11-04-2022 Episodic Mood disorders (1 source) Depressive disorder; Translations: [Other specified depressive episodes] Chronic Neoplasms of unspecified nature or uncertain behavior (20 sources) Neoplasm of brain; Translations: [Neoplasm of unspecified behavior of brain] Onset: 3 08-08-2022 Chronic Other and ill-defined cerebrovascular disease (1 source) Cerebral autosomal dominant arteriopathy with subcortical infarcts and leukoencephalopathy; Translations: [Cerebral autosomal dominant arteriopathy with subcortical infarcts and leukoencephalopathy] 06-09-2023 Chronic Other and unspecified benign neoplasm (1 source) Benign neoplasm of meninges; Translations: [Benign neoplasm of meninges, unspecified] 06-07-2023 Chronic Other circulatory disease (1 source) History of insertion of inferior vena caval filter; Translations: [Presence of other vascular implants and grafts] 04-30-2023 Chronic Other circulatory disease (1 source) Inferior vena cava filter in situ; Translations: [Presence of other vascular implants and grafts] 05-11-2023 Chronic Other circulatory disease (1 source) Presence of other vascular implants and grafts; Translations: [S/P IVC filter] Onset: 3 Chronic Other lower respiratory disease (3 sources) Cough; Translations: [COUGH] Onset: 1 Episodic Other lower respiratory disease (1 source) Dyspnea; Translations: [Dyspnea, unspecified] 07-18-2023 Episodic Other nervous system disorders (1 source) Mass lesion of brain; Translations: [Other specified disorders of brain] Chronic Other nervous system disorders (20 sources) Cerebral edema; Translations: [Cerebral edema] Onset: 3 08-08-2022 Chronic Other nervous system disorders (1 source) Difficulty in walking, not elsewhere classified; Translations: [Difficulty walking] Onset: 3 Chronic Other nervous system disorders (1 source) Other specified disorders of brain; Translations: [Brain mass] Onset: 3 Chronic Other nervous system disorders (1 source) Disorder of nervous system; Translations: [Other specified disorders of central nervous system] 06-09-2023 Episodic Other nutritional; endocrine; and metabolic disorders (20 sources) Hypophosphatemia; Translations: [Other disorders of phosphorus metabolism] Onset: 3 08-18-2022 Chronic Secondary malignancies (1 source) Secondary malignant neoplastic disease; 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] Chronic Viral infection (2 sources) COVID-19; Translations: [COVID-19] Onset: 1 Past or Other Problems Problem Classification Problem Date Documented Da te Episodic/Chronic Epilepsy; convulsions (1 source) Unspecified convulsions; Translations: [Seizure-like activity (HCC)] Onset: 08-08-2022 Episodic Fluid and electrolyte disorders (20 sources) Hypokalemia; Translations: [Hypokalemia] Onset: 08-18-2022 08-18-2022 Episodic Other connective tissue disease (20 sources) Other symptoms and signs involving the musculoskeletal system; Translations: [Other musculoskeletal symptoms referable to limbs] Onset: 08-16-2022 08-16-2022 Episodic Phlebitis; thrombophlebitis and thromboembolism (20 sources) Deep venous thrombosis; Translations: [Acute embolism and thrombosis of unspecified deep veins of unspecified lower extremity] Onset: 08-18-2022 08-18-2022 Episodic Residual codes; unclassified (20 sources) At risk of epileptic fits; Translations: [Other specified personal risk factors, not elsewhere classified] Onset: 08-08-2022 08-08-2022 Episodic Urinary tract infections (1 source) Urinary tract infection, site not specified; Translations: [Urinary tract infection without hematuria, site unspecified] Onset: 11-04-2022 Episodic Results Test Name Value Interpretation Reference Range Facility [facility] 07-27-2023 [facility] Normal [facility] CNPNon 07-24-2023 CNPN Normal [facility] CNPNon 07-20-2023 CNPN Normal [facility] Activated partial thrombopla stin time (aPTT) in platelet poor plasma by coagulation aOrdered By: Kayley Dimas on 07-18-2023 aPTT Coag (PPP) [Time] 31.0 s 25.1-36.5 [facility] Comment on above: A hematocrit value g reater than 55% may lead to inaccurate results in coagulation testing. Patients having hematocrit values >55% require a special collection tube for coagulation studies. Please contact the laboratory at [phone] for redraw instructions. Alanine aminotransferase [En zymatic activity/volume] in Serum or PlasmaOrdered By: PROVIDER TEMP on 07-18-2023 ALT [Catalytic activity/Vol] 7 U/L 7-52 [facility] Albumin [Mass/volume] in Ser um or Plasma by Bromocresol green (BCG) dye binding methoOrdered By: PROVIDER TEMP on 07-18-2023 Albumin BCG dye [Mass/Vol] 3.8 g/dL 3.5-5.7 [facility] Alkaline phosphatase [Enzyma tic activity/volume] in Serum or PlasmaOrdered By: PROVIDER TEMP on 07-18-2023 ALP [Catalytic activity/Vol] 67 U/L 34-104 [facility] Aspartate aminotransferase [ Enzymatic activity/volume] in Serum or PlasmaOrdered By: PROVIDER TEMP on 07-18-2023 AST [Catalytic activity/Vol] 7 U/L 13-39 [facility] Automated urine color determ inationOrdered By: Kayley Dimas on 07-18-2023 Color (U) Yellow Normal Yellow [facility] Comment on above: Order Comment: Name Collection Type:: Clean-Voided Midstream Performed By: #### U A #### [facility] [address] B-Type Natriuretic Peptideon 07-18-2023 Natriuretic peptide B (Bld) [Mass/Vol] 371.0 pg/mL High 5-100 [facility] Comment on above: Result Comment: PERF ORMED BY: [place] [address] PATHOLOGIST MEDICAL TRANSCRIPTION EDITOR CALIN HIDALGO M.D. Performed By: #### P TT, PT #### [facility] [address] Basophils Auto (Bld) [#/Vol] Ordered By: PROVIDER TEMP on 07-18-2023 Basophils (Bld) [#/Vol] 0.1 10*3/uL 0.0-0.2 [facility] Basophils/100 WBC Auto (Bld) Ordered By: PROVIDER TEMP on 07-18-2023 Basophils/100 WBC (Bld) 0.8 % . [facility] Bilirubin Test strip Ql (U)O rdered By: Kayley Dimas on 07-18-2023 Bilirubin Ql (U) Negative Negative [facility] Bilirubin.total [Mass/volume ] in Serum or PlasmaOrdered By: PROVIDER TEMP on 07-18-2023 Bilirubin [Mass/Vol] 0.5 mg/dL 0.3-1.0 [facility] CNPNon 07-18-2023 CNPN Normal [facility] COVID CepheidOrdered By: Himanshu Diaz on 07-18-2023 SARS-CoV-2 (COVID-19) Ab IA Ql Negative Negative [facility] Comment on above: This is a duplicate Cepheid Xpert Xpress CoV-2/Flu/RSV Plus RNA by RT-PCR result to be used for statistical tracking purpose only. SARS-CoV-2 (COVID-19) RNA JOAN+probe Ql (Unsp spec) [facility] COVID-19 / Flu A/B / RSV PCR on 07-18-2023 SARS-CoV-2 (COVID-19) RNA JOAN+probe Ql (Unsp spec) COVID-19 Cepheid Result Negative for SARS-CoV-2 RNA by RT-PCR Flu A Cepheid Result Negative for Flu A RNA by RT-PCR Flu B Cepheid Result Negative for Flu B RNA by RT-PCR RSV Cepheid Result Negative for RSV RNA by RT-PCR COVID19 Blank Space -- Reference: Negative COVID19 Blank Space -- Cepheid Disclaimer The Cepheid Xpert Xpress CoV-2/Flu/RSV Plus has Cepheid Disclaimer not been FDA cleared or approved; this test has Cepheid Disclaimer been authorized by FDA under an EUA for use by Cepheid Disclaimer authorized laboratories; this test has been Cepheid Disclaimer authorized only for the simultaneous qualitative Cepheid Disclaimer detection and differentiation of nucleic acids from Cepheid Disclaimer SARS-CoV-2, influenza A, influenza B, and Cepheid Disclaimer respiratory syncytial virus (RSV), and not for any Cepheid Disclaimer other viruses or pathogens; and this test is only Cepheid Disclaimer authorized for the duration of the declaration that Cepheid Disclaimer circumstances exist justifying the authorization of Cepheid Disclaimer emergency use of in vitro diagnostic tests for Cepheid Disclaimer detection and/or diagnosis of COVID-19 under Cepheid Disclaimer Section 564(b)(1) of the Act, 21 U.S.C. 360bbb- Cepheid Disclaimer 3(b)(1), unless the authorization is terminated or Cepheid Disclaimer revoked sooner. PERFORMED BY: [facility] [address] [place] [address] PATHOLOGIST MEDICAL TRANSCRIPTION EDITOR CALIN HIDALGO M.D. Normal [facility] Comment on above: Performed By: #### C OVID19 FLU RSV, CEPHEID NEG #### [address] [address] [facility] Calcium [Mass/volume] in Ser um or PlasmaOrdered By: PROVIDER TEMP on 07-18-2023 Calcium [Mass/Vol] 8.9 mg/dL 8.6-10.3 [facility] Carbon dioxide, total [Moles /volume] in Serum or PlasmaOrdered By: PROVIDER TEMP on 07-18-2023 CO2 [Moles/Vol] 27.1 mmol/L 21.0-31.0 [facility] Cepheid COVID PCR Negativeon 07-18-2023 SARS-CoV-2 (COVID-19) RNA JOAN+probe Ql (Unsp spec) Negative Normal Negative [facility] Comment on above: Result Comment: This is a duplicate Cepheid Xpert Xpress CoV-2/Flu/RSV Plus RNA by RT-PCR result to be used for statistical tracking purpose only. PERFORMED BY: [place] [address] PATHOLOGIST MEDICAL TRANSCRIPTION EDITOR CALIN HIDALGO M.D. Performed By: #### C OVID19 FLU RSV, CEPHEID NEG #### [facility] [address] [place] [address] [place] Chloride [Moles/volume] in S jethro or PlasmaOrdered By: PROVIDER TEMP on 07-18-2023 Chloride [Moles/Vol] 106 mmol/L 98-107 [facility] Complete Blood Count Auto Di ffon 07-18-2023 Basophils (Bld) [#/Vol] 0.1 10*3/uL Normal 0.0-0.2 [facility] Comment on above: Result Comment: PERF ORMED BY: [facility] [address] [place] [address] PATHOLOGIST MEDICAL TRANSCRIPTION EDITOR CALIN HIDALGO M.D. Performed By: #### C MP, CBC, BNP, HS TROP #### [facility] [address] [place] [address] Basophils/100 WBC (Bld) 0.8 % Normal . [facility] Comment on above: Performed By: #### C MP, CBC, BNP, HS TROP #### [facility] [address] [place] [address] Eosinophils (Bld) [#/Vol] 0.0 10*3/uL Normal 0.0-0.45 [facility] Comment on above: Performed By: #### C MP, CBC, BNP, HS TROP #### [address] Eosinophils/100 WBC (Bld) 0.1 % Normal . [facility] Comment on above: Performed By: #### C MP, CBC, BNP, HS TROP #### [address] Erythrocyte distribution width (RBC) [Ratio] 14.6 % Normal 11.9-15.3 [facility] Comment on above: Performed By: #### C MP, CBC, BNP, HS TROP #### [address] Hematocrit (Bld) [Volume fraction] 31.4 % Low 34.0-46.4 [facility] Comment on above: Performed By: #### C MP, CBC, BNP, HS TROP #### [place] [address] [place] Hemoglobin (Bld) [Mass/Vol] 10.8 g/dL Low 11.8-15.4 [facility] Comment on above: Performed By: #### C MP, CBC, BNP, HS TROP #### [facility] [address] [place] [address] [place] Lymphocytes (Bld) [#/Vol] 0.1 10*3/uL Low 1.00-4.8 [facility] Comment on above: Performed By: #### C MP, CBC, BNP, HS TROP #### [place] [address] [place] Lymphocytes/100 WBC (Bld) 0.9 % Normal . [facility] Comment on above: Performed By: #### C MP, CBC, BNP, HS TROP #### [address] MCH (RBC) [Entitic mass] 31.5 pg Normal 24.7-34.3 [facility] Comment on above: Performed By: #### C MP, CBC, BNP, HS TROP #### [address] MCV (RBC) [Entitic vol] 91.5 fL Normal 80-100 [facility] Comment on above: Performed By: #### C MP, CBC, BNP, HS TROP #### [address] Mean Corpuscular HGB Conc 34.4 g/dL Normal 32.0-35.0 [facility] Comment on above: Performed By: #### C MP, CBC, BNP, HS TROP #### [address] Monocytes (Bld) [#/Vol] 0.2 10*3/uL Normal 0.0-0.8 [facility] Comment on above: Performed By: #### C MP, CBC, BNP, HS TROP #### [address] Monocytes/100 WBC (Bld) 26.85 % High 0.00-20.00 [facility] Comment on above: Result Comment: For adults in ED, MDW > 20.0 may be associated with a higher risk of sepsis during the first 12 hrs of hospital admission Performed By: #### C MP, CBC, BNP, HS TROP #### [place] [address] [place] Monocytes/100 WBC (Bld) 1.7 % Normal . [facility] Comment on above: Performed By: #### C MP, CBC, BNP, HS TROP #### [address] Neutrophils (Bld) [#/Vol] 10.4 10*3/uL High 1.8-7.7 [facility] Comment on above: Performed By: #### C MP, CBC, BNP, HS TROP #### [address] Neutrophils/100 WBC (Bld) 96.5 % Normal . [facility] Comment on above: Performed By: #### C MP, CBC, BNP, HS TROP #### [address] NRBC% 0.0 /100{WBC} Normal 0-0.5 [facility] Comment on above: Performed By: #### C MP, CBC, BNP, HS TROP #### [address] Platelet mean volume (Bld) [Entitic vol] 8.8 fL Normal 6.3-10.7 [facility] Comment on above: Performed By: #### C MP, CBC, BNP, HS TROP #### [address] Platelets (Bld) [#/Vol] 140 10*3/uL Low 150-450 [facility] Comment on above: Performed By: #### C MP, CBC, BNP, HS TROP #### [address] RBC (Bld) [#/Vol] 3.43 10*6/uL Low 3.60-5.00 [facility] Comment on above: Performed By: #### C MP, CBC, BNP, HS TROP #### [address] WBC (Bld) [#/Vol] 10.8 10*3/uL Normal 3.8-11.6 [facility] Comment on above: Performed By: #### C MP, CBC, BNP, HS TROP #### [address] Comprehensive Metabolic Pane noelle 07-18-2023 Albumin [Mass/Vol] 3.8 g/dL Normal 3.5-5.7 [facility] Comment on above: Performed By: #### C MP, CBC, BNP, HS TROP #### [facility] [address] Albumin/Globulin [Mass ratio] 1.4 {ratio} Normal [facility] Comment on above: Performed By: #### C MP, CBC, BNP, HS TROP #### [facility] [address] ALP [Catalytic activity/Vol] 67 U/L Normal 34-104 [facility] Comment on above: Performed By: #### C MP, CBC, BNP, HS TROP #### [facility] [address] ALT [Catalytic activity/Vol] 7 U/L Normal 7-52 [facility] Comment on above: Performed By: #### C MP, CBC, BNP, HS TROP #### [facility] [address] [place] [address] Anion gap [Moles/Vol] 12.9 mmol/L Normal 6.0-15.0 [facility] Comment on above: Performed By: #### C MP, CBC, BNP, HS TROP #### [facility] [address] [place] [address] [place] AST [Catalytic activity/Vol] 7 U/L Low 13-39 [facility] Comment on above: Performed By: #### C MP, CBC, BNP, HS TROP #### [facility] [address] [place] [address] [place] Bilirubin [Mass/Vol] 0.5 mg/dL Normal 0.3-1.0 [facility] Comment on above: Performed By: #### C MP, CBC, BNP, HS TROP #### [facility] [address] [place] [address] [place] Calcium [Mass/Vol] 8.9 mg/dL Normal 8.6-10.3 [facility] Comment on above: Performed By: #### C MP, CBC, BNP, HS TROP #### [facility] [address] [place] [address] [place] Chloride [Moles/Vol] 106 mmol/L Normal 98-107 [facility] Comment on above: Performed By: #### C MP, CBC, BNP, HS TROP #### [address] CO2 [Moles/Vol] 27.1 mmol/L Normal 21.0-31.0 [facility] Comment on above: Performed By: #### C MP, CBC, BNP, HS TROP #### [address] Creatinine [Mass/Vol] 0.61 mg/dL Normal 0.60-1.20 [facility] Comment on above: Performed By: #### C MP, CBC, BNP, HS TROP #### [address] Creatinine Clr Calc Pharmacy 53.96 [facility] Comment on above: Result Comment: PERF ORMED BY: [place] [address] PATHOLOGIST MEDICAL TRANSCRIPTION EDITOR CALIN HIDALGO M.D. Performed By: #### C MP, CBC, BNP, HS TROP #### [address] GFR/1.73 sq M.predicted MDRD (S/P/Bld) [Vol rate/Area] mL/min/{1.73_m2} [facility] Comment on above: Performed By: #### C MP, CBC, BNP, HS TROP #### [address] Globulin (S) [Mass/Vol] 2.7 g/dL Normal [facility] Comment on above: Performed By: #### C MP, CBC, BNP, HS TROP #### [address] Glucose [Mass/Vol] 135 mg/dL High 70-100 [facility] Comment on above: Result Comment: [place] Glucose Reference Range is dependent on time and content of last meal. Glucose of more than 200 mg/dL in a nonstressed, ambulatory subject supports the diagnosis of Diabetes Mellitus. ADA recommended reference range Performed By: #### C MP, CBC, BNP, HS TROP #### [facility] [address] Potassium [Moles/Vol] 3.0 mmol/L Low 3.5-5.1 [facility] Comment on above: Performed By: #### C MP, CBC, BNP, HS TROP #### [facility] [address] Protein [Mass/Vol] 6.5 g/dL Normal 6.4-8.9 [facility] Comment on above: Performed By: #### C MP, CBC, BNP, HS TROP #### [facility] [address] Sodium [Moles/Vol] 143 mmol/L Normal 136-145 [facility] Comment on above: Performed By: #### C MP, CBC, BNP, HS TROP #### [address] Urea nitrogen [Mass/Vol] 22 mg/dL Normal 7-25 [facility] Comment on above: Performed By: #### C MP, CBC, BNP, HS TROP #### [address] Creatinine [Mass/volume] in Serum or PlasmaOrdered By: PROVIDER TEMP on 07-18-2023 Creatinine [Mass/Vol] 0.61 mg/dL 0.60-1.20 [facility] ECG 12 lead ECGon 07-18-2023 ECG 12 lead ECG [facility] [place] [address] Electrocardiograph Report Signed Patient: Marilin Mae MR#: [id number] : 1945 Acct:[id number] Age/Sex: 78 / F ADM Date: 07/18/23 Loc: ER Room: Type: [facility] ER Attending Dr: Ordering Provider: Kayley Dimas APRN Date of Service: 07/18/23 ECG/ECG 12 lead ECG: Shortness of Breath/Dyspnea Copies to: Test Reason : Blood Pressure : / mmHG Vent. Rate : 088 BPM Atrial Rate : 088 BPM P-R Int : 100 ms QRS Dur : 102 ms QT Int : 394 ms P-R-T Axes : 037 053 264 degrees QTc Int : 476 ms Sinus rhythm with short [place] Confirmed by Terrance DUENAS DO ([id number]) on 07/19/2023 6:11:13 AM Referred By: Electronically Signed By:Terrance DUENAS DO Transcribed By: MUS Signed By Terrance Duenas DO 1 09/19/22 0611 Normal [facility] Eosinophils Auto (Bld) [#/Vo l]Ordered By: PROVIDER TEMP on 07-18-2023 Eosinophils (Bld) [#/Vol] 0.0 10*3/uL 0.0-0.45 [facility] Eosinophils/100 WBC Auto (Bl d)Ordered By: PROVIDER TEMP on 07-18-2023 Eosinophils/100 WBC (Bld) 0.1 % . [facility] Erythrocyte distribution wid th Auto (RBC) [Ratio]Ordered By: PROVIDER TEMP on 07-18-2023 Erythrocyte distribution width (RBC) [Ratio] 14.6 % 11.9-15.3 [facility] Fecal occult blood detection by immunochemistryOrdered By: Kayley Dimas on 07-18-2023 Hemoglobin.gastrointest inal Ql (Stl) [facility] Globulin Calc (S) [Mass/Vol] Ordered By: PROVIDER TEMP on 07-18-2023 Globulin (S) [Mass/Vol] 2.7 g/dL [facility] Glucose [Mass/volume] in Ser um or PlasmaOrdered By: PROVIDER TEMP on 07-18-2023 Glucose [Mass/Vol] 135 mg/dL 70-100 [facility] Comment on above: ADA recommended refe rence rangeRandom Glucose Reference Range is dependent on time and content of last meal. Glucose of more than 200 mg/dL in a nonstressed, ambulatory subject supports the diagnosis of Diabetes Mellitus. Hematocrit Auto (Bld) [Volum e fraction]Ordered By: PROVIDER TEMP on 07-18-2023 Hematocrit (Bld) [Volume fraction] 31.4 % 34.0-46.4 [facility] Hemoglobin [Mass/volume] in BloodOrdered By: PROVIDER TEMP on 07-18-2023 Hemoglobin (Bld) [Mass/Vol] 10.8 g/dL 11.8-15.4 [facility] INR in Platelet poor plasma by Coagulation assayOrdered By: Kayley Dimas on 07-18-2023 INR Coag (PPP) [Relative time] 1.5 {INR} [facility] Comment on above: INR Therapeutic Rang e A) Pre- and Peroperative OAT started two weeks before surgery. NOT HIP SURGERY: 1.5 - 2.5 HIP SURGERY: 2 - 3B) Primary and secondary prevention of venous THROMBOSIS: 2 - 3C) Active venous thrombosis, pulmonary embolismand prevention of recurrent venous thrombosis: 2 - 3D) Prevention of arterial thromboembolismincluding patients with mechanical heart valves: 3 - 4.5 Ketones Auto test strip (U) [Mass/Vol]Ordered By: Kayley Dimas on 07-18-2023 Ketones (U) [Mass/Vol] Negative Negative Fi [facility] Leukocytes [#/volume] correc bradly for nucleated erythrocytes in Blood by Automated counOrdered By: PROVIDER TEMP on 07-18-2023 WBC corrected for nucl RBC Auto (Bld) [#/Vol] 10.8 10*3/uL 3.8-11.6 [facility] Lymphocytes Auto (Bld) [#/Vo l]Ordered By: PROVIDER TEMP on 07-18-2023 Lymphocytes (Bld) [#/Vol] 0.1 10*3/uL 1.00-4.8 [facility] Lymphocytes/100 WBC Auto (Bl d)Ordered By: PROVIDER TEMP on 07-18-2023 Lymphocytes/100 WBC (Bld) 0.9 % . [facility] MCH Auto (RBC) [Entitic mass ]Ordered By: PROVIDER TEMP on 07-18-2023 MCH (RBC) [Entitic mass] 31.5 pg 24.7-34.3 [facility] MCHC Auto (RBC) [Mass/Vol]Or dered By: PROVIDER TEMP on 07-18-2023 MCHC (RBC) [Mass/Vol] 34.4 g/dL 32.0-35.0 [facility] MCV Auto (RBC) [Entitic vol] Ordered By: PROVIDER TEMP on 07-18-2023 MCV (RBC) [Entitic vol] 91.5 fL 80-100 F [facility] Monocyte distribution width [Entitic volume] in Blood by AutomatedOrdered By: PROVIDER TEMP on 07-18-2023 Monocyte distribution width Auto (Bld) [Entitic vol] 26.85 % 0.00-20.00 [facility] Comment on above: For adults in ED, MD W > 20.0 may be associated with a higher risk of sepsis during the first 12 hrs of hospital admission Monocytes Auto (Bld) [#/Vol] Ordered By: PROVIDER TEMP on 07-18-2023 Monocytes (Bld) [#/Vol] 0.2 10*3/uL 0.0-0.8 [facility] Monocytes/100 WBC Auto (Bld) Ordered By: PROVIDER TEMP on 07-18-2023 Monocytes/100 WBC (Bld) 1.7 % . F [facility] Natriuretic peptide B [Mass/ Vol]Ordered By: PROVIDER TEMP on 07-18-2023 Natriuretic peptide B (Bld) [Mass/Vol] 371.0 pg/mL 5-100 [facility] Neutrophils Auto (Bld) [#/Vo l]Ordered By: PROVIDER TEMP on 07-18-2023 Neutrophils (Bld) [#/Vol] 10.4 10*3/uL 1.8-7.7 [facility] Neutrophils/100 WBC Auto (Bl d)Ordered By: PROVIDER TEMP on 07-18-2023 Neutrophils/100 WBC (Bld) 96.5 % . [facility] Nitrite Test strip Ql (U)Ord ered By: Kayley Dimas on 07-18-2023 Nitrite Ql (U) Negative Negative [facility] No Panel InformationOrdered By: PROVIDER TEMP on 07-18-2023 Estimated GFR (CKD-EPI) > 60.0 mL/Min [facility] Pharmacy Creatinine Clearance (Chem 53.96 [facility] Nucleated erythrocytes [Pres ence] in Blood by Automated countOrdered By: PROVIDER TEMP on 07-18-2023 Nucleated RBC Auto Ql (Bld) 0.0 /100{WBC} 0-0.5 [facility] Partial Thromboplastin Timeo n 07-18-2023 aPTT Coag (Bld) [Time] 31.0 s Normal 25.1-36.5 [facility] Comment on above: Result Comment: A he matocrit value greater than 55% may lead to inaccurate results in coagulation testing. Patients having hematocrit values >55% require a special collection tube for coagulation studies. Please contact the laboratory at [phone] for redraw instructions. PERFORMED BY: [place] [address] PATHOLOGIST MEDICAL TRANSCRIPTION EDITOR CALIN HIDALGO M.D. Performed By: #### P TT, PT #### [address] Platelet mean volume Auto (B ld) [Entitic vol]Ordered By: PROVIDER TEMP on 07-18-2023 Platelet mean volume (Bld) [Entitic vol] 8.8 fL 6.3-10.7 [facility] Platelets Auto (Bld) [#/Vol] Ordered By: PROVIDER TEMP on 07-18-2023 Platelets (Bld) [#/Vol] 140 10*3/uL 150-450 [facility] Potassium [Moles/volume] in Serum or PlasmaOrdered By: PROVIDER TEMP on 07-18-2023 Potassium [Moles/Vol] 3.0 mmol/L 3.5-5.1 [facility] Protein Auto test strip (U) [Mass/Vol]Ordered By: Kayley Dimas on 07-18-2023 Protein (U) [Mass/Vol] Negative Negative [facility] Protein [Mass/volume] in Ser um or PlasmaOrdered By: PROVIDER TEMP on 07-18-2023 Protein [Mass/Vol] 6.5 g/dL 6.4-8.9 [facility] Prothrombin Time INRon 07-18 INR Coag (PPP) [Relative time] 1.5 {INR} Normal [facility] Comment on above: Result Comment: INR Therapeutic Range A) Pre- and Peroperative OAT started two weeks before surgery. NOT HIP SURGERY: 1.5 - 2.5 HIP SURGERY: 2 - 3 B) Primary and secondary prevention of venous THROMBOSIS: 2 - 3 C) Active venous thrombosis, pulmonary embolism and prevention of recurrent venous thrombosis: 2 - 3 D) Prevention of arterial thromboembolism including patients with mechanical heart valves: 3 - 4.5 Performed By: #### P TT, PT #### [facility] [address] [place] [id number] [facility] PT Coag (PPP) [Time] 17.6 s High 9.0-12.9 [facility] Comment on above: Result Comment: A he matocrit value greater than 55% may lead to inaccurate results in coagulation testing. Patients having hematocrit values >55% require a special collection tube for coagulation studies. Please contact the laboratory at [phone] for redraw instructions. Performed By: #### P TT, PT #### [facility] [address] [place] [address] [facility] Prothrombin time (PT)Ordered By: Kayley Dimas on 07-18-2023 PT Coag (PPP) [Time] 17.6 s 9.0-12.9 [facility] Comment on above: A hematocrit value g reater than 55% may lead to inaccurate results in coagulation testing. Patients having hematocrit values >55% require a special collection tube for coagulation studies. Please contact the laboratory at [phone] for redraw instructions. RBC Auto (Bld) [#/Vol]Ordere d By: PROVIDER TEMP on 07-18-2023 RBC (Bld) [#/Vol] 3.43 10*6/uL 3.60-5.00 [facility] Serum or plasma albumin/glob ulin mass ratioOrdered By: PROVIDER TEMP on 07-18-2023 Albumin/Globulin [Mass ratio] 1.4 {ratio} [facility] Serum or plasma anion gap de terminationOrdered By: PROVIDER TEMP on 07-18-2023 Anion gap [Moles/Vol] 12.9 mmol/L 6.0-15.0 [facility] Sodium [Moles/volume] in Ser um or PlasmaOrdered By: PROVIDER TEMP on 07-18-2023 Sodium [Moles/Vol] 143 mmol/L 136-145 [facility] Specific gravity Auto test s trip (U) [Rel density]Ordered By: Kayley Dimas on 07-18-2023 Specific gravity (U) [Rel density] 1.015 1.001-1.03 0 [facility] Stool Occult Blood (Guaiac)o n 07-18-2023 Stool Occult Blood (Guaiac) Occult Blood Negative for Occult Blood by Guaiac Methodology -- Reference range = Negative PERFORMED BY: [place] [address] PATHOLOGIST MEDICAL TRANSCRIPTION EDITOR CALIN HIDALGO M.D. Normal [facility] Comment on above: Performed By: #### O B(GUAIAC) #### [facility] [address] [place] [address] [place] Troponin I High Sensitivityo n 07-18-2023 Troponin I High Sensitivity 7.3 pg/mL Normal 0.0-15.0 [facility] Comment on above: Result Comment: PERF ORMED BY: [place] [address] PATHOLOGIST MEDICAL TRANSCRIPTION EDITOR CALIN HIDALGO M.D. Performed By: #### P TT, PT #### [facility] [address] [place] [address] Troponin I.cardiac [Mass/vol ume] in Serum or Plasma by Detection limit <= 0.01 ng/Ordered By: PROVIDER TEMP on 07-18-2023 Troponin I.cardiac DL <= 0.01 ng/mL [Mass/Vol] 7.3 pg/mL 0.0-15.0 [facility] Urea nitrogen [Mass/volume] in Serum or PlasmaOrdered By: PROVIDER TEMP on 07-18-2023 Urea nitrogen [Mass/Vol] 22 mg/dL 02-13 [facility] Urinalysison 07-18-2023 Appearance (U) Clear Normal Clear [facility] Comment on above: Order Comment: Name Collection Type:: Clean-Voided Midstream Performed By: #### U A #### [facility] [address] [place] [address] [place] Bilirubin,Urine Negative Normal Negative [facility] Comment on above: Order Comment: Name Collection Type:: Clean-Voided Midstream Performed By: #### U A #### [address] Glucose Ql (U) Normal Normal Normal [facility] Comment on above: Order Comment: Name Collection Type:: Clean-Voided Midstream Performed By: #### U A #### [address] Ketones Ql (U) Negative Normal Negative [facility] Comment on above: Order Comment: Name Collection Type:: Clean-Voided Midstream Performed By: #### U A #### [address] Leukocyte esterase Test strip Ql (U) Negative Normal Negative [facility] Comment on above: Order Comment: Name Collection Type:: Clean-Voided Midstream Performed By: #### U A #### [facility] [address] [place] [address] [place] Nitrite,Urine Negative Normal Negative [facility] Comment on above: Order Comment: Name Collection Type:: Clean-Voided Midstream Performed By: #### U A #### [facility] [address] [place] [address] Occult Blood,Urine Negative Normal Negative [facility] Comment on above: Order Comment: Name Collection Type:: Clean-Voided Midstream Result Comment: PERF ORMED BY: [place] [address] PATHOLOGIST MEDICAL TRANSCRIPTION EDITOR CALIN HIDALGO M.D. Performed By: #### U A #### [place] [address] [place] Protein,Urine Negative Normal Negative [facility] Comment on above: Order Comment: Name Collection Type:: Clean-Voided Midstream Performed By: #### U A #### [facility] [address] [place] [address] [place] Specificy [place],Urine 1.015 Normal 1.00 1-1.03 0 [facility] Comment on above: Order Comment: Name Collection Type:: Clean-Voided Midstream Performed By: #### U A #### [place] [id number] [facility] Urobilinogen,Urine Normal Normal Normal [facility] Comment on above: Order Comment: Name Collection Type:: Clean-Voided Midstream Performed By: #### U A #### [place] [id number] [facility] Urine clarity by refractomet ry automatedOrdered By: Kayley Dimas on 07-18-2023 Clarity Refractometry automated (U) Clear Clear [facility] Urine glucose measurement by automated test strip (mass/volume)Ordered By: Kayley Dimas on 07-18-2023 Glucose Auto test strip (U) [Mass/Vol] Normal mg/dL Normal [facility] Urine hemoglobin detection b y automated test stripOrdered By: Kayley Dimas on 07-18-2023 Hemoglobin Auto test strip Ql (U) Negative Negative [facility] Urine leukocyte esterase det ection by automated test stripOrdered By: Kayley Dimas on 07-18-2023 Leukocyte esterase Auto test strip Ql (U) Negative Negative [facility] Urine pH measurement by auto mated test stripOrdered By: Kayley Dimas on 07-18-2023 pH (U) 6.0 [pH] Normal 5.0-9.0 [facility] Comment on above: Order Comment: Name Collection Type:: Clean-Voided Midstream Performed By: #### U A #### [place] [id number] [facility] Urobilinogen Auto test strip (U) [Mass/Vol]Ordered By: Kayley Dimas on 07-18-2023 Urobilinogen (U) [Mass/Vol] Normal mg/dL Normal [facility] WBC Auto (Bld) [#/Vol]Ordere d By: AARON TEMP on 07-18-2023 WBC (Bld) [#/Vol] 10.8 10*3/uL 3.8-11.6 [facility] XR chest 2V*on 07-18-2023 XR chest 2V* [facility] [place] [address] [place], [place] [id number] XRay Report Signed Patient: Marilin Mae MR#: [id number] : 1945 Acct:[id number] Age/Sex: 78 / F ADM Date: 07/18/23 Loc: ER Room: Type: PRE ER Attending Dr: Copies to: AARON MUJICA Ordering Provider: AARON MUJICA Date of Service: 07/18/23 XR/XR chest 2V*: Shortness of Breath/Dyspnea Plain film chest 2 view HISTORY: Weakness. Bilateral lower extremity edema. Shortness of breath COMPARISON: 12/02/2013 FINDINGS: SUPPORT DEVICES: None POSTSURGICAL CHANGES: None HEART: Within normal limits PULMONARY TONY: Within normal limits MEDIASTINUM: Unremarkable LUNGS AND PLEURA: Developing mild basilar pleural-parenchymal changes. No pneumothorax. BONY STRUCTURES: Intact ADDITIONAL FINDINGS None XR/XR chest 2V* IMPRESSION: Developing mild basilar pleural-parenchymal changes. May consider failure with small bilateral pleural effusions. Impression dictated by: Keshav Monsivais M.D.07/18/2023 4:26 PM Dictation Location: [place] [address] Transcribed By: [facility] 07/18/231625 Dictated By: Keshav Monsivais DO 07/18/231624 Signed By: 07/18/231625 [facility] CBC W Auto Differential pane l (Bld)on 07-17-2023 Basophils (Bld) [#/Vol] 10*3/uL Normal <0.11 C [facility] Comment on above: Order Comment: Speci men Type: BLOOD SPECIMENOrdering Facility: [facility] Address: [address] [place] [address] Performed By: #### 5 7021-8 ####[facility] LABCLIA [id number] [place] [address] Basophils/100 WBC (Bld) 0.1 % Normal C [facility] Comment on above: Order Comment: Speci men Type: BLOOD SPECIMENOrdering Facility: [facility] Address: [address] [place] [address] Performed By: #### 5 7021-8 ####[facility] LABCLIA [id number] [place] [address] Differential cell count method Nom (Bld) Auto Normal [facility] Comment on above: Order Comment: Speci men Type: BLOOD SPECIMENOrdering Facility: [facility] Address: [address] [place] [address] Performed By: #### 5 7021-8 ####[facility] LABCLIA [id number] [place] [address] Eosinophils (Bld) [#/Vol] 10*3/uL Normal <0.46 [facility] Comment on above: Order Comment: Speci men Type: BLOOD SPECIMENOrdering Facility: [facility] Address: [address] [place] [address] Performed By: #### 5 7021-8 ####[facility] LABCLIA [id number] [place] [address] Eosinophils/100 WBC (Bld) 0.1 % Normal [facility] Comment on above: Order Comment: Speci men Type: BLOOD SPECIMENOrdering Facility: [facility] Address: [address] [place] [address] Performed By: #### 5 7021-8 ####[facility] LABCLIA [id number] [place] [address] Erythrocyte distribution width (RBC) [Ratio] 13.8 % Normal 11.5-15.0 [facility] Comment on above: Order Comment: Speci men Type: BLOOD SPECIMENOrdering Facility: [facility] Address: [address] [place] [address] Performed By: #### 5 7021-8 ####[facility] LABCLIA [id number] [place] [address] Hematocrit (Bld) [Volume fraction] 33.4 % Low 36.0-46.0 [facility] Comment on above: Order Comment: Speci men Type: BLOOD SPECIMENOrdering Facility: [facility] Address: [address] [place] [address] Performed By: #### 5 7021-8 ####[facility]CLIA [id number] [place] [address] Hemoglobin (Bld) [Mass/Vol] 10.9 g/dL Low 11.5-15.5 [facility] Comment on above: Order Comment: Speci men Type: BLOOD SPECIMENOrdering Facility: [facility] Address: [address] [place] [address] Performed By: #### 5 7021-8 ####[facility] LABCLIA [id number] [place] [address] Immature granulocytes (Bld) [#/Vol] 0.05 10*3/uL Normal <0.10 [facility] Comment on above: Order Comment: Speci men Type: BLOOD SPECIMENOrdering Facility: [facility] Address: [address] [place] [address] Performed By: #### 5 7021-8 ####[facility] LABCLIA [id number] [place] [address] Immature granulocytes/100 WBC (Bld) 0.6 % Normal [facility] Comment on above: Order Comment: Speci men Type: BLOOD SPECIMENOrdering Facility: [facility] Address: [address] [place] [address] Performed By: #### 5 7021-8 ####[facility] LABCLIA [id number] [place] [address] Lymphocytes (Bld) [#/Vol] 0.48 10*3/uL Low 1.00-4.00 [facility] Comment on above: Order Comment: Speci men Type: BLOOD SPECIMENOrdering Facility: [facility] Address: [address] [place] [address] Performed By: #### 5 7021-8 ####[facility] LABCLIA [id number] [place] [address] Lymphocytes/100 WBC (Bld) 5.4 % Normal [facility] Comment on above: Order Comment: Speci men Type: BLOOD SPECIMENOrdering Facility: [facility] Address: [address] [place] [address] Performed By: #### 5 7021-8 ####[facility] LABCLIA [id number] [place] [address] MCH (RBC) [Entitic mass] 30.8 pg Normal 26.0-34.0 [facility] Comment on above: Order Comment: Speci men Type: BLOOD SPECIMENOrdering Facility: [facility] Address: [address] [place] [address] Performed By: #### 5 7021-8 ####[facility] LABIA [id number] [place] [address] MCHC (RBC) [Mass/Vol] 32.6 g/dL Normal 30.5-36.0 [facility] Comment on above: Order Comment: Speci men Type: BLOOD SPECIMENOrdering Facility: [facility] Address: [address] [place] [address] Performed By: #### 5 7021-8 ####[facility] LABCLIA [id number] [place] [address] MCV (RBC) [Entitic vol] 94.4 fL Normal 80.0-100.0 [facility] Comment on above: Order Comment: Speci men Type: BLOOD SPECIMENOrdering Facility: [facility] Address: [address] [place] [address] Performed By: #### 5 7021-8 ####[facility] LABIA [id number] [place] [address] Monocytes (Bld) [#/Vol] 0.51 10*3/uL Normal <0.87 [facility] Comment on above: Order Comment: Speci men Type: BLOOD SPECIMENOrdering Facility: [facility] Address: [address] [place] [address] Performed By: #### 5 7021-8 ####[facility] LABCLIA [id number] [place] [address] Monocytes/100 WBC (Bld) 5.8 % Normal [facility] Comment on above: Order Comment: Speci men Type: BLOOD SPECIMENOrdering Facility: [facility] Address: [address] [place] [address] Performed By: #### 5 7021-8 ####[facility] LABCLIA [id number] [place] [address] Neutrophils (Bld) [#/Vol] 7.75 10*3/uL High 1.45-7.50 [facility] Comment on above: Order Comment: Speci men Type: BLOOD SPECIMENOrdering Facility: [facility] Address: [address] [place] [address] Performed By: #### 5 7021-8 ####[facility] LABCLIA [id number] [place] [address] Neutrophils/100 WBC (Bld) 88.0 % Normal [facility] Comment on above: Order Comment: Speci men Type: BLOOD SPECIMENOrdering Facility: [facility] Address: [address] [place] [address] Performed By: #### 5 7021-8 ####[facility] LABCLIA [id number] [place] [address] Nucleated RBC (Bld) [#/Vol] 10*3/uL Normal <0.01 [facility] Comment on above: Order Comment: Speci men Type: BLOOD SPECIMENOrdering Facility: [facility] Address: [address] [place] [address] Performed By: #### 5 7021-8 ####[facility] LABCLIA [id number] [place] [address] Nucleated RBC/100 WBC (Bld) [Ratio] 0.0 /100 WBC Normal [facility] Comment on above: Order Comment: Speci men Type: BLOOD SPECIMENOrdering Facility: [facility] Address: [address] [place] [address] Performed By: #### 5 7021-8 ####[facility] LABCLIA [id number] [place] [address] Platelet mean volume (Bld) [Entitic vol] 10.4 fL Normal 9.0-12.7 [facility] Comment on above: Order Comment: Speci men Type: BLOOD SPECIMENOrdering Facility: [facility] Address: [address] [place] [address] Performed By: #### 5 7021-8 ####[facility] LABCLIA [id number] [place] [address] Platelets (Bld) [#/Vol] 127 10*3/uL Low 150-400 [facility] Comment on above: Order Comment: Speci men Type: BLOOD SPECIMENOrdering Facility: [facility] Address: [address] [place] [address] Performed By: #### 5 7021-8 ####[facility] LABCLIA [id number] [place] [address] RBC (Bld) [#/Vol] 3.54 10*6/uL Low 3.90-5.20 [facility] Comment on above: Order Comment: Speci men Type: BLOOD SPECIMENOrdering Facility: [facility] Address: [address] [place] [address] Performed By: #### 5 7021-8 ####[facility] LABCLIA [id number] [place] [address] WBC (Bld) [#/Vol] 8.81 10*3/uL Normal 3.70-11.00 [facility] Comment on above: Order Comment: Speci men Type: BLOOD SPECIMENOrdering Facility: [facility] Address: [address] [place] [address] Performed By: #### 5 7021-8 ####[facility] LABCLIA [id number] [place] [address] CNPNon 07-17-2023 CNPN Normal [facility] metabolic 2000 panelon 07-17-2023 Albumin [Mass/Vol] 3.7 g/dL Low 3.9-4.9 [facility] Comment on above: Order Comment: Speci men Type: BLOOD SPECIMENOrdering Facility: [facility] Address: [address] [place] [address] Performed By: #### 2 4323-8 ####[facility] LABCLIA [id number] [place] [address] ALP [Catalytic activity/Vol] 65 U/L Normal 34-123 [facility] Comment on above: Order Comment: Speci men Type: BLOOD SPECIMENOrdering Facility: [facility] Address: [address] [place] [address] Performed By: #### 2 4323-8 ####[facility] LABCLIA [id number] [place] [address] ALT [Catalytic activity/Vol] 7 U/L Normal 7-38 [facility] Comment on above: Order Comment: Speci men Type: BLOOD SPECIMENOrdering Facility: [facility] Address: [address] [place] [address] Performed By: #### 2 4323-8 ####[facility] LABCLIA [id number] [place] [address] Anion gap [Moles/Vol] 15 mmol/L Normal 9-18 [facility] Comment on above: Order Comment: Speci men Type: BLOOD SPECIMENOrdering Facility: [facility] Address: [address] [place] [address] Performed By: #### 2 4323-8 ####[facility] LABCLIA [id number] [place] [address] AST [Catalytic activity/Vol] 7 U/L Low 13-35 [facility] Comment on above: Order Comment: Speci men Type: BLOOD SPECIMENOrdering Facility: [facility] Address: [address] [place] [address] Performed By: #### 2 4323-8 ####[facility] LABCLIA [id number] [place] [address] Bilirubin [Mass/Vol] 0.3 mg/dL Normal 0.2-1.3 [facility] Comment on above: Order Comment: Speci men Type: BLOOD SPECIMENOrdering Facility: [facility] Address: [address] [place] [address] Performed By: #### 2 4323-8 ####[facility] LABCLIA [id number] [place] [address] Calcium [Mass/Vol] 9.5 mg/dL Normal 8.5-10.2 [facility] Comment on above: Order Comment: Speci men Type: BLOOD SPECIMENOrdering Facility: [facility] Address: [address] [place] [address] Performed By: #### 2 4323-8 ####[facility] LABCLIA [id number] [place] [address] Chloride [Moles/Vol] 104 mmol/L Normal 97-105 [facility] Comment on above: Order Comment: Speci men Type: BLOOD SPECIMENOrdering Facility: [facility] Address: [address] [place] [address] Performed By: #### 2 4323-8 ####[facility] LABCLIA [id number] [place] [address] CO2 [Moles/Vol] 24 mmol/L Normal 22-30 [facility] Comment on above: Order Comment: Speci men Type: BLOOD SPECIMENOrdering Facility: [facility] Address: [address] [place] [address] Performed By: #### 2 4323-8 ####[facility] LABCLIA [id number] [place] [address] Creatinine [Mass/Vol] 0.67 mg/dL Normal 0.58-0.96 [facility] Comment on above: Order Comment: Kurt barraza Type: BLOOD SPECIMENOrdering Facility: [facility] Address: [address] [place] [id number] Performed By: #### 2 4323-8 ####[facility] LABCLIA [id number] [place] [address] Creatinine and Glomerular filtration rate.predicted panel (S/P/Bld) 88 mL/min/1.73m??? Normal >=60 [facility] Comment on above: Order Comment: Kurt barraza Type: BLOOD SPECIMENOrdering Facility: [facility] Address: [address] [place] [address] Result Comment: Kim mated Glomerular Filtration Rate (eGFR) is calculated using the 2020 CKD-EPI creatinine equation. This equation utilizes serum creatinine, sex, and age as parameters. The creatinine assay has traceable calibration to isotope dilution-mass spectrometry. Refer to KDIGO guidelines for clinical interpretation. In patients with unstable renal function, e.g. those with acute kidney injury, the eGFR may not accurately reflect actual GFR. Performed By: #### 2 4323-8 ####[facility] LABCLIA [id number] [place] [address] Glucose [Mass/Vol] 96 mg/dL Normal 74-99 [facility] Comment on above: Order Comment: Kurt barraza Type: BLOOD SPECIMENOrdering Facility: [facility] Address: [address] [place] [address] Result Comment: The [place] Diabetes [employer] (ADA) provides guidance for cutoff values for fasting glucose and random glucose. The ADA defines fasting as no caloric intake for at least 8 hours. Fasting plasma glucose results between 100 to 125 mg/dL indicate increased risk for diabetes (prediabetes).Fasting plasma glucose results greater than or equal to 126 mg/dL meet the criteria for diagnosis of diabetes. In the absence of unequivocal hyperglycemia, results should be confirmed by repeat testing. In a patient with classic symptoms of hyperglycemia or hyperglycemic crisis, random plasma glucose results greater than or equal to 200 mg/dL meet the criteria for diagnosis of diabetes.Reference: Standards of Medical Care in Diabetes 2016, [place] [employer]. Diabetes Care. 2016.39(Suppl 1). Performed By: #### 2 4323-8 ####[facility] LABCLIA [id number] [place] [address] Potassium [Moles/Vol] 2.5 mmol/L Low 3.7-5.1 [facility] Comment on above: Order Comment: Speci men Type: BLOOD SPECIMENOrdering Facility: [facility] Address: [address] [place] [address] Performed By: #### 2 4323-8 ####[facility] LABCLIA [id number] [place] [address] Protein [Mass/Vol] 6.2 g/dL Low 6.3-8.0 [facility] Comment on above: Order Comment: Speci men Type: BLOOD SPECIMENOrdering Facility: [facility] Address: [address] [place] [address] Performed By: #### 2 4323-8 ####[facility] LABCLIA [id number] [place] [address] Sodium [Moles/Vol] 143 mmol/L Normal 136-144 [facility] Comment on above: Order Comment: Speci men Type: BLOOD SPECIMENOrdering Facility: [facility] Address: [address] [place] [address] Performed By: #### 2 4323-8 ####[facility] LABCLIA [id number] [place] [address] Urea nitrogen [Mass/Vol] 23 mg/dL High 7-21 [facility] Comment on above: Order Comment: Speci men Type: BLOOD SPECIMENOrdering Facility: [facility] Address: [address] [place] [address] Performed By: #### 2 4323-8 ####[facility] LABCLIA [id number] [place] [address] CBC W Auto Differential pane l (Bld)on 07-10-2023 Basophils (Bld) [#/Vol] 10*3/uL Normal <0.11 [facility] Comment on above: Order Comment: Speci men Type: BLOOD SPECIMENOrdering Facility: [facility] Address: [address] [place] [address] Performed By: #### 5 7021-8 ####[facility] LABCLIA [id number] [place] [address] Basophils/100 WBC (Bld) 0.3 % Normal [facility] Comment on above: Order Comment: Speci men Type: BLOOD SPECIMENOrdering Facility: [facility] Address: [address] [place] [address] Performed By: #### 5 7021-8 ####[facility] LABCLIA [id number] [place] [address] Differential cell count method Nom (Bld) Auto Normal [facility] Comment on above: Order Comment: Speci men Type: BLOOD SPECIMENOrdering Facility: [facility] Address: [address] [place] [address] Performed By: #### 5 7021-8 ####[facility] LABCLIA [id number] [place] [address] Eosinophils (Bld) [#/Vol] 10*3/uL Normal <0.46 [facility] Comment on above: Order Comment: Speci men Type: BLOOD SPECIMENOrdering Facility: [facility] Address: [address] [place] [address] Performed By: #### 5 7021-8 ####[facility] LABCLIA [id number] [place] [address] Eosinophils/100 WBC (Bld) 0.0 % Normal [facility] Comment on above: Order Comment: Speci men Type: BLOOD SPECIMENOrdering Facility: [facility] Address: [address] [place] [address] Performed By: #### 5 7021-8 ####[facility] LABCLIA [id number] [place] [address] Erythrocyte distribution width (RBC) [Ratio] 14.4 % Normal 11.5-15.0 [facility] Comment on above: Order Comment: Speci men Type: BLOOD SPECIMENOrdering Facility: [facility] Address: [address] [place] [address] Performed By: #### 5 7021-8 ####[facility] LABCLIA [id number] [place] [address] Hematocrit (Bld) [Volume fraction] 35.9 % Low 36.0-46.0 [facility] Comment on above: Order Comment: Speci men Type: BLOOD SPECIMENOrdering Facility: [facility] Address: [address] [place] [address] Performed By: #### 5 7021-8 ####[facility] LABCLIA [id number] [place] [address] Hemoglobin (Bld) [Mass/Vol] 11.9 g/dL Normal 11.5-15.5 [facility] Comment on above: Order Comment: Speci men Type: BLOOD SPECIMENOrdering Facility: [facility] Address: [address] [place] [address] Performed By: #### 5 7021-8 ####[facility] LABCLIA [id number] [place] [address] Immature granulocytes (Bld) [#/Vol] 0.08 10*3/uL Normal <0.10 [facility] Comment on above: Order Comment: Speci men Type: BLOOD SPECIMENOrdering Facility: [facility] Address: [address] [place] [address] Performed By: #### 5 7021-8 ####[facility] LABIA [id number] [place] [address] Immature granulocytes/100 WBC (Bld) 1.1 % Normal [facility] Comment on above: Order Comment: Speci men Type: BLOOD SPECIMENOrdering Facility: [facility] Address: [address] [place] [address] Performed By: #### 5 7021-8 ####[facility] LABCLIA [id number] [place] [address] Lymphocytes (Bld) [#/Vol] 0.24 10*3/uL Low 1.00-4.00 [facility] Comment on above: Order Comment: Speci men Type: BLOOD SPECIMENOrdering Facility: [facility] Address: [address] [place] [address] Performed By: #### 5 7021-8 ####[facility] LABCLIA [id number] [place] [address] Lymphocytes/100 WBC (Bld) 3.3 % Normal [facility] Comment on above: Order Comment: Speci men Type: BLOOD SPECIMENOrdering Facility: [facility] Address: [address] [place] [address] Performed By: #### 5 7021-8 ####[facility] LABCLIA [id number] [place] [address] MCH (RBC) [Entitic mass] 31.6 pg Normal 26.0-34.0 [facility] Comment on above: Order Comment: Speci men Type: BLOOD SPECIMENOrdering Facility: [facility] Address: [address] [place] [address] Performed By: #### 5 7021-8 ####[facility] LABCLIA [id number] [place] [address] MCHC (RBC) [Mass/Vol] 33.1 g/dL Normal 30.5-36.0 [facility] Comment on above: Order Comment: Speci men Type: BLOOD SPECIMENOrdering Facility: [facility] Address: [address] [place] [address] Performed By: #### 5 7021-8 ####[facility] LABCLIA [id number] [place] [address] MCV (RBC) [Entitic vol] 95.5 fL Normal 80.0-100.0 [facility] Comment on above: Order Comment: Speci men Type: BLOOD SPECIMENOrdering Facility: [facility] Address: [address] [place] [address] Performed By: #### 5 7021-8 ####[facility] [id number] [place] [address] Monocytes (Bld) [#/Vol] 0.42 10*3/uL Normal <0.87 [facility] Comment on above: Order Comment: Speci men Type: BLOOD SPECIMENOrdering Facility: [facility] Address: [address] [place] [address] Performed By: #### 5 7021-8 ####[facility] [id number] [place] [address] Monocytes/100 WBC (Bld) 5.8 % Normal C [facility] Comment on above: Order Comment: Speci men Type: BLOOD SPECIMENOrdering Facility: [facility] Address: [address] [place] [address] Performed By: #### 5 7021-8 ####[facility] [id number] [place] [address] Neutrophils (Bld) [#/Vol] 6.45 10*3/uL Normal 1.45-7.50 [facility] Comment on above: Order Comment: Speci men Type: BLOOD SPECIMENOrdering Facility: [facility] Address: [address] [place] [address] Performed By: #### 5 7021-8 ####[facility] LABCLIA [id number] [place] [address] Neutrophils/100 WBC (Bld) 89.5 % Normal [facility] Comment on above: Order Comment: Speci men Type: BLOOD SPECIMENOrdering Facility: [facility] Address: [address] [place] [address] Performed By: #### 5 7021-8 ####[facility] LABCLIA [id number] [place] [address] Nucleated RBC (Bld) [#/Vol] 10*3/uL Normal <0.01 [facility] Comment on above: Order Comment: Speci men Type: BLOOD SPECIMENOrdering Facility: [facility] Address: [address] [place] [address] Performed By: #### 5 7021-8 ####[facility] LABCLIA [id number] [place] [address] Nucleated RBC/100 WBC (Bld) [Ratio] 0.0 /100 WBC Normal [facility] Comment on above: Order Comment: Speci men Type: BLOOD SPECIMENOrdering Facility: [facility] Address: [address] [place] [address] Performed By: #### 5 7021-8 ####[facility] LABCLIA [id number] [place] [address] Platelet mean volume (Bld) [Entitic vol] 9.9 fL Normal 9.0-12.7 [facility] Comment on above: Order Comment: Speci men Type: BLOOD SPECIMENOrdering Facility: [facility] Address: [address] [place] [address] Performed By: #### 5 7021-8 ####[facility] LABCLIA [id number] [place] [address] Platelets (Bld) [#/Vol] 144 10*3/uL Low 150-400 [facility] Comment on above: Order Comment: Speci men Type: BLOOD SPECIMENOrdering Facility: [facility] Address: [address] [place] [address] Performed By: #### 5 7021-8 ####[facility] LABCLIA [id number] [place] [address] RBC (Bld) [#/Vol] 3.76 10*6/uL Low 3.90-5.20 [facility] Comment on above: Order Comment: Speci men Type: BLOOD SPECIMENOrdering Facility: [facility] Address: [address] [place] [address] Performed By: #### 5 7021-8 ####[facility] LABIA [id number] [place] [address] WBC (Bld) [#/Vol] 7.21 10*3/uL Normal 3.70-11.00 [facility] Comment on above: Order Comment: Speci men Type: BLOOD SPECIMENOrdering Facility: [facility] Address: [address] [place] [address] Performed By: #### 5 7021-8 ####[facility] LABIA [id number] [place] [address] CNOVSPon 07-10-2023 CNOVSP Normal [facility] metabolic 2000 panelon 07-10-2023 Albumin [Mass/Vol] 4.1 g/dL Normal 3.9-4.9 [facility] Comment on above: Order Comment: Speci men Type: BLOOD SPECIMENOrdering Facility: [facility] Address: [address] [place] [address] Performed By: #### 2 4323-8 ####[facility] LABIA [id number] [place] [address] ALP [Catalytic activity/Vol] 56 U/L Normal 34-123 [facility] Comment on above: Order Comment: Speci men Type: BLOOD SPECIMENOrdering Facility: [facility] Address: [address] [place] [address] Performed By: #### 2 4323-8 ####[facility] LABCLIA [id number] [place] [address] ALT [Catalytic activity/Vol] 6 U/L Low 7-38 [facility] Comment on above: Order Comment: Speci men Type: BLOOD SPECIMENOrdering Facility: [facility] Address: [address] [place] [address] Performed By: #### 2 4323-8 ####[facility] LABCLIA [id number] [place] [address] Anion gap [Moles/Vol] 14 mmol/L Normal 9-18 [facility] Comment on above: Order Comment: Speci men Type: BLOOD SPECIMENOrdering Facility: [facility] Address: [address] [place] [address] Performed By: #### 2 4323-8 ####[facility] LABCLIA [id number] [place] [address] AST [Catalytic activity/Vol] 8 U/L Low 13-35 [facility] Comment on above: Order Comment: Speci men Type: BLOOD SPECIMENOrdering Facility: [facility] Address: [address] [place] [address] Performed By: #### 2 4323-8 ####[facility] LABCLIA [id number] [place] [address] Bilirubin [Mass/Vol] 0.4 mg/dL Normal 0.2-1.3 [facility] Comment on above: Order Comment: Speci men Type: BLOOD SPECIMENOrdering Facility: [facility] Address: [address] [place] [address] Performed By: #### 2 4323-8 ####[facility] LABCLIA [id number] [place] [address] Calcium [Mass/Vol] 9.5 mg/dL Normal 8.5-10.2 [facility] Comment on above: Order Comment: Speci men Type: BLOOD SPECIMENOrdering Facility: [facility] Address: [address] [place] [address] Performed By: #### 2 4323-8 ####[facility] LABCLIA [id number] [place] [address] Chloride [Moles/Vol] 105 mmol/L Normal 97-105 [facility] Comment on above: Order Comment: Speci men Type: BLOOD SPECIMENOrdering Facility: [facility] Address: [address] [place] [address] Performed By: #### 2 4323-8 ####[facility] LABCLIA [id number] [place] [address] CO2 [Moles/Vol] 24 mmol/L Normal 22-30 [facility] Comment on above: Order Comment: Speci men Type: BLOOD SPECIMENOrdering Facility: [facility] Address: [address] [place] [address] Performed By: #### 2 4323-8 ####[facility] LABCLIA [id number] [place] [address] Creatinine [Mass/Vol] 0.75 mg/dL Normal 0.58-0.96 [facility] Comment on above: Order Comment: Speci men Type: BLOOD SPECIMENOrdering Facility: [facility] Address: [address] [place] [address] Performed By: #### 2 4323-8 ####[facility] LABCLIA [id number] [place] [address] Creatinine and Glomerular filtration rate.predicted panel (S/P/Bld) 81 mL/min/1.73m??? Normal >=60 [facility] Comment on above: Order Comment: Speci men Type: BLOOD SPECIMENOrdering Facility: [facility] Address: [address] [place] [address] Result Comment: Kim mated Glomerular Filtration Rate (eGFR) is calculated using the 2020 CKD-EPI creatinine equation. This equation utilizes serum creatinine, sex, and age as parameters. The creatinine assay has traceable calibration to isotope dilution-mass spectrometry. Refer to KDIGO guidelines for clinical interpretation. In patients with unstable renal function, e.g. those with acute kidney injury, the eGFR may not accurately reflect actual GFR. Performed By: #### 2 4323-8 ####[facility] LABCLIA [id number] [place] [address] Glucose [Mass/Vol] 165 mg/dL High 74-99 [facility] Comment on above: Order Comment: Speci men Type: BLOOD SPECIMENOrdering Facility: [facility] Address: [address] [id number] Result Comment: The [place] [employer] (ADA) provides guidance for cutoff values for fasting glucose and random glucose. The ADA defines fasting as no caloric intake for at least 8 hours. Fasting plasma glucose results between 100 to 125 mg/dL indicate increased risk for diabetes (prediabetes).Fasting plasma glucose results greater than or equal to 126 mg/dL meet the criteria for diagnosis of diabetes. In the absence of unequivocal hyperglycemia, results should be confirmed by repeat testing. In a patient with classic symptoms of hyperglycemia or hyperglycemic crisis, random plasma glucose results greater than or equal to 200 mg/dL meet the criteria for diagnosis of diabetes.Reference: Standards of Medical Care in Diabetes 2016, [place] [employer]. Diabetes Care. 2016.39(Suppl 1). Performed By: #### 2 4323-8 ####[facility] LABCLIA [id number] [place] [address] Potassium [Moles/Vol] 3.4 mmol/L Low 3.7-5.1 [facility] Comment on above: Order Comment: Speci men Type: BLOOD SPECIMENOrdering Facility: [facility] Address: [address] [place] [address] Performed By: #### 2 4323-8 ####[facility]CLIA [id number] [place] [address] Protein [Mass/Vol] 6.2 g/dL Low 6.3-8.0 [facility] Comment on above: Order Comment: Speci men Type: BLOOD SPECIMENOrdering Facility: [facility] Address: [address] [place] [address] Performed By: #### 2 4323-8 ####[facility]CLIA [id number] [place] [address] Sodium [Moles/Vol] 143 mmol/L Normal 136-144 [facility] Comment on above: Order Comment: Speci men Type: BLOOD SPECIMENOrdering Facility: [facility] Address: [address] [place] [address] Performed By: #### 2 4323-8 ####[facility] LABCLIA [id number] [place] [address] Urea nitrogen [Mass/Vol] 22 mg/dL High 7- [facility] Comment on above: Order Comment: Speci men Type: BLOOD SPECIMENOrdering Facility: [facility] Address: [address] [place] [address] Performed By: #### 2 4323-8 ####[facility] LABCLIA [id number] [place] [address] CNPNon 07-02-2023 CNPN Normal [facility] CBC W Auto Differential pane l (Bld)on 06-29-2023 Basophils (Bld) [#/Vol] 10*3/uL Normal <0.11 C [facility] Comment on above: Order Comment: Speci men Type: BLOOD SPECIMENOrdering Facility: [facility] Address: [address] [place] [address] Performed By: #### 5 7021-8 ####[facility] LABCLIA [id number] [place] [address] Basophils/100 WBC (Bld) 0.2 % Normal C [facility] Comment on above: Order Comment: Speci men Type: BLOOD SPECIMENOrdering Facility: [facility] Address: [address] [place] [address] Performed By: #### 5 7021-8 ####[facility] LABCLIA [id number] [place] [address] Differential cell count method Nom (Bld) Auto Normal [facility] Comment on above: Order Comment: Speci men Type: BLOOD SPECIMENOrdering Facility: [facility] Address: [address] [place] [address] Performed By: #### 5 7021-8 ####[facility] LABCLIA [id number] [place] [address] Eosinophils (Bld) [#/Vol] 10*3/uL Normal <0.46 [facility] Comment on above: Order Comment: Speci men Type: BLOOD SPECIMENOrdering Facility: [facility] Address: [address] [place] [address] Performed By: #### 5 7021-8 ####[facility] LABCLIA [id number] [place] [address] Eosinophils/100 WBC (Bld) 0.0 % Normal [facility] Comment on above: Order Comment: Speci men Type: BLOOD SPECIMENOrdering Facility: [facility] Address: [address] [place] [address] Performed By: #### 5 7021-8 ####[facility] LABCLIA [id number] [place] [address] Erythrocyte distribution width (RBC) [Ratio] 13.8 % Normal 11.5-15.0 [facility] Comment on above: Order Comment: Speci men Type: BLOOD SPECIMENOrdering Facility: [facility] Address: [address] [place] [address] Performed By: #### 5 7021-8 ####[facility] LABCLIA [id number] [place] [address] Hematocrit (Bld) [Volume fraction] 35.1 % Low 36.0-46.0 [facility] Comment on above: Order Comment: Speci men Type: BLOOD SPECIMENOrdering Facility: [facility] Address: [address] [place] [address] Performed By: #### 5 7021-8 ####[facility] LABCLIA [id number] [place] [address] Hemoglobin (Bld) [Mass/Vol] 11.5 g/dL Normal 11.5-15.5 [facility] Comment on above: Order Comment: Speci men Type: BLOOD SPECIMENOrdering Facility: [facility] Address: [address] [place] [address] Performed By: #### 5 7021-8 ####[facility] LABCLIA [id number] [place] [address] Immature granulocytes (Bld) [#/Vol] 0.05 10*3/uL Normal <0.10 [facility] Comment on above: Order Comment: Speci men Type: BLOOD SPECIMENOrdering Facility: [facility] Address: [address] [place] [address] Performed By: #### 5 7021-8 ####[facility] LABCLIA [id number] [place] [address] Immature granulocytes/100 WBC (Bld) 0.9 % Normal [facility] Comment on above: Order Comment: Speci men Type: BLOOD SPECIMENOrdering Facility: [facility] Address: [address] [place] [address] Performed By: #### 5 7021-8 ####[facility] LABCLIA [id number] [place] [address] Lymphocytes (Bld) [#/Vol] 0.50 10*3/uL Low 1.00-4.00 [facility] Comment on above: Order Comment: Speci men Type: BLOOD SPECIMENOrdering Facility: [facility] Address: [address] [place] [address] Performed By: #### 5 7021-8 ####[facility] LABCLIA [id number] [place] [address] Lymphocytes/100 WBC (Bld) 9.0 % Normal [facility] Comment on above: Order Comment: Speci men Type: BLOOD SPECIMENOrdering Facility: [facility] Address: [address] [place] [address] Performed By: #### 5 7021-8 ####[facility] LABIA [id number] [place] [address] MCH (RBC) [Entitic mass] 31.3 pg Normal 26.0-34.0 [facility] Comment on above: Order Comment: Speci men Type: BLOOD SPECIMENOrdering Facility: [facility] Address: [address] [place] [address] Performed By: #### 5 7021-8 ####[facility] LABCLIA [id number] [place] [address] MCHC (RBC) [Mass/Vol] 32.8 g/dL Normal 30.5-36.0 [facility] Comment on above: Order Comment: Speci men Type: BLOOD SPECIMENOrdering Facility: [facility] Address: [address] [place] [address] Performed By: #### 5 7021-8 ####[facility] LABCLIA [id number] [place] [address] MCV (RBC) [Entitic vol] 95.4 fL Normal 80.0-100.0 C [facility] Comment on above: Order Comment: Speci men Type: BLOOD SPECIMENOrdering Facility: [facility] Address: [address] [place] [address] Performed By: #### 5 7021-8 ####[facility] LABCLIA [id number] [place] [address] Monocytes (Bld) [#/Vol] 0.34 10*3/uL Normal <0.87 [facility] Comment on above: Order Comment: Speci men Type: BLOOD SPECIMENOrdering Facility: [facility] Address: [address] [place] [address] Performed By: #### 5 7021-8 ####[facility] LABCLIA [id number] [place] [address] Monocytes/100 WBC (Bld) 6.1 % Normal C [facility] Comment on above: Order Comment: Speci men Type: BLOOD SPECIMENOrdering Facility: [facility] Address: [address] [place] [address] Performed By: #### 5 7021-8 ####[facility] LABCLIA [id number] [place] [address] Neutrophils (Bld) [#/Vol] 4.63 10*3/uL Normal 1.45-7.50 [facility] Comment on above: Order Comment: Speci men Type: BLOOD SPECIMENOrdering Facility: [facility] Address: [address] [place] [address] Performed By: #### 5 7021-8 ####[facility] LABCLIA [id number] [place] [address] Neutrophils/100 WBC (Bld) 83.8 % Normal [facility] Comment on above: Order Comment: Speci men Type: BLOOD SPECIMENOrdering Facility: [facility] Address: [address] [place] [address] Performed By: #### 5 7021-8 ####[facility] LABCLIA [id number] [place] [address] Nucleated RBC (Bld) [#/Vol] 10*3/uL Normal <0.01 [facility] Comment on above: Order Comment: Speci men Type: BLOOD SPECIMENOrdering Facility: [facility] Address: [address] [place] [address] Performed By: #### 5 7021-8 ####[facility] LABCLIA [id number] [place] [address] Nucleated RBC/100 WBC (Bld) [Ratio] 0.0 /100 WBC Normal [facility] Comment on above: Order Comment: Speci men Type: BLOOD SPECIMENOrdering Facility: [facility] Address: [address] [place] [address] Performed By: #### 5 7021-8 ####[facility] LABCLIA [id number] [place] [address] Platelet mean volume (Bld) [Entitic vol] 10.6 fL Normal 9.0-12.7 [facility] Comment on above: Order Comment: Speci men Type: BLOOD SPECIMENOrdering Facility: [facility] Address: [address] [place] [address] Performed By: #### 5 7021-8 ####[facility] LABCLIA [id number] [place] [address] Platelets (Bld) [#/Vol] 188 10*3/uL Normal 150-400 [facility] Comment on above: Order Comment: Speci men Type: BLOOD SPECIMENOrdering Facility: [facility] Address: [address] [place] [address] Performed By: #### 5 7021-8 ####[facility] LABCLIA [id number] [place] [address] RBC (Bld) [#/Vol] 3.68 10*6/uL Low 3.90-5.20 [facility] Comment on above: Order Comment: Speci men Type: BLOOD SPECIMENOrdering Facility: [facility] Address: [address] [place] [address] Performed By: #### 5 7021-8 ####[facility] LABCLIA [id number] [place] [address] WBC (Bld) [#/Vol] 5.53 10*3/uL Normal 3.70-11.00 [facility] Comment on above: Order Comment: Speci men Type: BLOOD SPECIMENOrdering Facility: [facility] Address: [address] [place] [address] Performed By: #### 5 7021-8 ####[facility] LABCLIA [id number] [place] [address] CNOVSPon 06-29-2023 CNOVSP Normal [facility] CNPNon 06-29-2023 CNPN Normal [facility] Comprehensive metabolic 2000 panelon 06-29-2023 Albumin [Mass/Vol] 4.0 g/dL Normal 3.9-4.9 [facility] Comment on above: Order Comment: Speci men Type: BLOOD SPECIMENOrdering Facility: [facility] Address: [address] [place] [address] Performed By: #### 2 4323-8 ####[facility] LABCLIA [id number] [place] [address] ALP [Catalytic activity/Vol] 65 U/L Normal 34-123 [facility] Comment on above: Order Comment: Speci men Type: BLOOD SPECIMENOrdering Facility: [facility] Address: [address] [place] [address] Performed By: #### 2 4323-8 ####[facility] LABCLIA [id number] [place] [address] ALT [Catalytic activity/Vol] 6 U/L Low 7-38 [facility] Comment on above: Order Comment: Speci men Type: BLOOD SPECIMENOrdering Facility: [facility] Address: [address] [place] [address] Performed By: #### 2 4323-8 ####[facility] LABCLIA [id number] [place] [address] Anion gap [Moles/Vol] 14 mmol/L Normal 9-18 [facility] Comment on above: Order Comment: Speci men Type: BLOOD SPECIMENOrdering Facility: [facility] Address: [address] [place] [address] Performed By: #### 2 4323-8 ####[facility] LABCLIA [id number] [place] [address] AST [Catalytic activity/Vol] 8 U/L Low 13-35 [facility] Comment on above: Order Comment: Speci men Type: BLOOD SPECIMENOrdering Facility: [facility] Address: [address] [place] [address] Performed By: #### 2 4323-8 ####[facility] LABCLIA [id number] [place] [address] Bilirubin [Mass/Vol] 0.4 mg/dL Normal 0.2-1.3 [facility] Comment on above: Order Comment: Speci men Type: BLOOD SPECIMENOrdering Facility: [facility] Address: [address] [place] [address] Performed By: #### 2 4323-8 ####[facility] LABCLIA [id number] [place] [address] Calcium [Mass/Vol] 9.7 mg/dL Normal 8.5-10.2 [facility] Comment on above: Order Comment: Speci men Type: BLOOD SPECIMENOrdering Facility: [facility] Address: [address] [place] [address] Performed By: #### 2 4323-8 ####[facility] LABCLIA [id number] [place] [address] Chloride [Moles/Vol] 106 mmol/L High 97-105 [facility] Comment on above: Order Comment: Speci men Type: BLOOD SPECIMENOrdering Facility: [facility] Address: [address] [place] [address] Performed By: #### 2 4323-8 ####[facility] LABCLIA [id number] [place] [address] CO2 [Moles/Vol] 25 mmol/L Normal 22-30 [facility] Comment on above: Order Comment: Speci men Type: BLOOD SPECIMENOrdering Facility: [facility] Address: [address] [place] [address] Performed By: #### 2 4323-8 ####[facility] LABCLIA [id number] [place] [address] Creatinine [Mass/Vol] 0.73 mg/dL Normal 0.58-0.96 [facility] Comment on above: Order Comment: Speci men Type: BLOOD SPECIMENOrdering Facility: [facility] Address: [address] [place] [address] Performed By: #### 2 4323-8 ####[facility] LABIA [id number] [place] [address] Creatinine and Glomerular filtration rate.predicted panel (S/P/Bld) 83 mL/min/1.73m??? Normal >=60 [facility] Comment on above: Order Comment: Speci men Type: BLOOD SPECIMENOrdering Facility: [facility] Address: [address] [place] [address] Result Comment: Kim mated Glomerular Filtration Rate (eGFR) is calculated using the 2020 CKD-EPI creatinine equation. This equation utilizes serum creatinine, sex, and age as parameters. The creatinine assay has traceable calibration to isotope dilution-mass spectrometry. Refer to KDIGO guidelines for clinical interpretation. In patients with unstable renal function, e.g. those with acute kidney injury, the eGFR may not accurately reflect actual GFR. Performed By: #### 2 4323-8 ####[facility] LABCLIA [id number] [place] [address] Glucose [Mass/Vol] 133 mg/dL High 74-99 [facility] Comment on above: Order Comment: Kurt barraza Type: BLOOD SPECIMENOrdering Facility: [facility] Address: [address] [place] [address] Result Comment: The [place] [employer] (ADA) provides guidance for cutoff values for fasting glucose and random glucose. The ADA defines fasting as no caloric intake for at least 8 hours. Fasting plasma glucose results between 100 to 125 mg/dL indicate increased risk for diabetes (prediabetes).Fasting plasma glucose results greater than or equal to 126 mg/dL meet the criteria for diagnosis of diabetes. In the absence of unequivocal hyperglycemia, results should be confirmed by repeat testing. In a patient with classic symptoms of hyperglycemia or hyperglycemic crisis, random plasma glucose results greater than or equal to 200 mg/dL meet the criteria for diagnosis of diabetes.Reference: Standards of Medical Care in Diabetes 2016, [place] [employer]. Diabetes Care. 2016.39(Suppl 1). Performed By: #### 2 4323-8 ####[facility] LABCLIA [id number] [place] [address] Potassium [Moles/Vol] 3.8 mmol/L Normal 3.7-5.1 [facility] Comment on above: Order Comment: Kurt barraza Type: BLOOD SPECIMENOrdering Facility: [facility] Address: [address] [place] [address] Performed By: #### 2 4323-8 ####[facility] LABCLIA [id number] [place] [address] Protein [Mass/Vol] 6.1 g/dL Low 6.3-8.0 [facility] Comment on above: Order Comment: Speci men Type: BLOOD SPECIMENOrdering Facility: [facility] Address: [address] [place] [address] Performed By: #### 2 4323-8 ####[facility] LABCLIA [id number] [place] [address] Sodium [Moles/Vol] 145 mmol/L High 136-144 [facility] Comment on above: Order Comment: Speci men Type: BLOOD SPECIMENOrdering Facility: [facility] Address: [address] [place] [address] Performed By: #### 2 4323-8 ####[facility] LABCLIA [id number] [place] [address] Urea nitrogen [Mass/Vol] 21 mg/dL Normal 7-21 [facility] Comment on above: Order Comment: Speci men Type: BLOOD SPECIMENOrdering Facility: [facility] Address: [address] [place] [address] Performed By: #### 2 4323-8 ####[facility] LABCLIA [id number] [place] [address] CNSWon 06-25-2023 CNSW Normal [facility] CNPNon 06-23-2023 CNPN Normal [facility] CNPNon 06-22-2023 CNPN Normal [facility] CNCOon 06-19-2023 CNCO Letter Text Normal [facility] CNPNon 06-18-2023 CNPN Normal [facility] CNOVon 06-15-2023 CNOV Normal [facility] CNPNon 06-15-2023 CNPN Normal [facility] CNPNon 06-04-2023 CNPN Normal [facility] CNPNon 06-01-2023 CNPN Normal [facility] CNTRTMon 05-31-2023 CNTRTM Normal [facility] CBC W Auto Differential pane l (Bld)on 05-29-2023 Basophils (Bld) [#/Vol] 0.03 10*3/uL Normal <0.11 [facility] Comment on above: Order Comment: Speci men Type: BLOOD SPECIMENOrdering Facility: [facility] Address: [address] [place] [address] Performed By: #### 5 7021-8 ####[facility] LABCLIA [id number] [place] [address] Basophils/100 WBC (Bld) 0.5 % Normal [facility] Comment on above: Order Comment: Speci men Type: BLOOD SPECIMENOrdering Facility: [facility] Address: [address] [place] [address] Performed By: #### 5 7021-8 ####[facility] LABCLIA [id number] [place] [address] Differential cell count method Nom (Bld) Auto Normal [facility] Comment on above: Order Comment: Speci men Type: BLOOD SPECIMENOrdering Facility: [facility] Address: [address] [place] [address] Performed By: #### 5 7021-8 ####[facility] LABCLIA [id number] [place] [address] Eosinophils (Bld) [#/Vol] 10*3/uL Normal <0.46 [facility] Comment on above: Order Comment: Speci men Type: BLOOD SPECIMENOrdering Facility: [facility] Address: [address] [place] [address] Performed By: #### 5 7021-8 ####[facility] LABCLIA [id number] [place] [address] Eosinophils/100 WBC (Bld) 0.2 % Normal [facility] Comment on above: Order Comment: Speci men Type: BLOOD SPECIMENOrdering Facility: [facility] Address: [address] [place] [address] Performed By: #### 5 7021-8 ####[facility] LABCLIA [id number] [place] [address] Erythrocyte distribution width (RBC) [Ratio] 14.4 % Normal 11.5-15.0 [facility] Comment on above: Order Comment: Speci men Type: BLOOD SPECIMENOrdering Facility: [facility] Address: [address] [place] [address] Performed By: #### 5 7021-8 ####[facility] LABCLIA [id number] [place] [address] Hematocrit (Bld) [Volume fraction] 31.8 % Low 36.0-46.0 [facility] Comment on above: Order Comment: Speci men Type: BLOOD SPECIMENOrdering Facility: [facility] Address: [address] [place] [address] Performed By: #### 5 7021-8 ####[facility] LABCLIA [id number] [place] [address] Hemoglobin (Bld) [Mass/Vol] 10.5 g/dL Low 11.5-15.5 [facility] Comment on above: Order Comment: Speci men Type: BLOOD SPECIMENOrdering Facility: [facility] Address: [address] [place] [address] Performed By: #### 5 7021-8 ####[facility] LABCLIA [id number] [place] [address] Immature granulocytes (Bld) [#/Vol] 0.07 10*3/uL Normal <0.10 [facility] Comment on above: Order Comment: Speci men Type: BLOOD SPECIMENOrdering Facility: [facility] Address: [address] [place] [address] Performed By: #### 5 7021-8 ####[facility] LABCLIA [id number] [place] [address] Immature granulocytes/100 WBC (Bld) 1.1 % Normal [facility] Comment on above: Order Comment: Speci men Type: BLOOD SPECIMENOrdering Facility: [facility] Address: [address] [place] [address] Performed By: #### 5 7021-8 ####[facility] LABCLIA [id number] [place] [address] Lymphocytes (Bld) [#/Vol] 0.79 10*3/uL Low 1.00-4.00 [facility] Comment on above: Order Comment: Speci men Type: BLOOD SPECIMENOrdering Facility: [facility] Address: [address] [place] [address] Performed By: #### 5 7021-8 ####[facility] LABCLIA [id number] [place] [address] Lymphocytes/100 WBC (Bld) 12.4 % Normal [facility] Comment on above: Order Comment: Speci men Type: BLOOD SPECIMENOrdering Facility: [facility] Address: [address] [place] [address] Performed By: #### 5 7021-8 ####[facility] LABCLIA [id number] [place] [address] MCH (RBC) [Entitic mass] 32.1 pg Normal 26.0-34.0 [facility] Comment on above: Order Comment: Speci men Type: BLOOD SPECIMENOrdering Facility: [facility] Address: [address] [place] [address] Performed By: #### 5 7021-8 ####[facility] LABCLIA [id number] [place] [address] MCHC (RBC) [Mass/Vol] 33.0 g/dL Normal 30.5-36.0 [facility] Comment on above: Order Comment: Speci men Type: BLOOD SPECIMENOrdering Facility: [facility] Address: [address] [place] [address] Performed By: #### 5 7021-8 ####[facility] LABCLIA [id number] [place] [address] MCV (RBC) [Entitic vol] 97.2 fL Normal 80.0-100.0 C [facility] Comment on above: Order Comment: Speci men Type: BLOOD SPECIMENOrdering Facility: [facility] Address: [address] [place] [address] Performed By: #### 5 7021-8 ####[facility] LABCLIA [id number] [place] [address] Monocytes (Bld) [#/Vol] 0.67 10*3/uL Normal <0.87 [facility] Comment on above: Order Comment: Speci men Type: BLOOD SPECIMENOrdering Facility: [facility] Address: [address] [place] [address] Performed By: #### 5 7021-8 ####[facility] LABCLIA [id number] [place] [address] Monocytes/100 WBC (Bld) 10.5 % Normal C [facility] Comment on above: Order Comment: Speci men Type: BLOOD SPECIMENOrdering Facility: [facility] Address: [address] [place] [address] Performed By: #### 5 7021-8 ####[facility] LABCLIA [id number] [place] [address] Neutrophils (Bld) [#/Vol] 4.80 10*3/uL Normal 1.45-7.50 [facility] Comment on above: Order Comment: Speci men Type: BLOOD SPECIMENOrdering Facility: [facility] Address: [address] [place] [address] Performed By: #### 5 7021-8 ####[facility] LABCLIA [id number] [place] [address] Neutrophils/100 WBC (Bld) 75.3 % Normal [facility] Comment on above: Order Comment: Speci men Type: BLOOD SPECIMENOrdering Facility: [facility] Address: [address] [place] [address] Performed By: #### 5 7021-8 ####[facility] LABCLIA [id number] [place] [address] Nucleated RBC (Bld) [#/Vol] 10*3/uL Normal <0.01 [facility] Comment on above: Order Comment: Speci men Type: BLOOD SPECIMENOrdering Facility: [facility] Address: [address] [place] [address] Performed By: #### 5 7021-8 ####[facility] LABCLIA [id number] [place] [address] Nucleated RBC/100 WBC (Bld) [Ratio] 0.0 /100 WBC Normal [facility] Comment on above: Order Comment: Speci men Type: BLOOD SPECIMENOrdering Facility: [facility] Address: [address] [place] [address] Performed By: #### 5 7021-8 ####[facility] LABCLIA [id number] [place] [address] Platelet mean volume (Bld) [Entitic vol] 10.5 fL Normal 9.0-12.7 [facility] Comment on above: Order Comment: Speci men Type: BLOOD SPECIMENOrdering Facility: [facility] Address: [address] [place] [address] Performed By: #### 5 7021-8 ####[facility] LABCLIA [id number] [place] [address] Platelets (Bld) [#/Vol] 204 10*3/uL Normal 150-400 [facility] Comment on above: Order Comment: Speci men Type: BLOOD SPECIMENOrdering Facility: [facility] Address: [address] [place] [address] Performed By: #### 5 7021-8 ####[facility] LABCLIA [id number] [place] [address] RBC (Bld) [#/Vol] 3.27 10*6/uL Low 3.90-5.20 [facility] Comment on above: Order Comment: Speci men Type: BLOOD SPECIMENOrdering Facility: [facility] Address: [address] [place] [address] Performed By: #### 5 7021-8 ####[facility] LABIA [id number] [place] [address] WBC (Bld) [#/Vol] 6.37 10*3/uL Normal 3.70-11.00 [facility] Comment on above: Order Comment: Speci men Type: BLOOD SPECIMENOrdering Facility: [facility] Address: [address] [place] [address] Performed By: #### 5 7021-8 ####[facility] LABIA [id number] [place] [address] CNOVSPon 05-29-2023 CNOVSP Normal [facility] metabolic 2000 panelon 05-29-2023 Albumin [Mass/Vol] 4.1 g/dL Normal 3.9-4.9 [facility] Comment on above: Order Comment: Speci men Type: BLOOD SPECIMENOrdering Facility: [facility] Address: [address] [place] [address] Performed By: #### 2 4323-8 ####[facility] LABIA [id number] [place] [address] ALP [Catalytic activity/Vol] 45 U/L Normal 34-123 [facility] Comment on above: Order Comment: Speci men Type: BLOOD SPECIMENOrdering Facility: [facility] Address: [address] [place] [address] Performed By: #### 2 4323-8 ####ST. [facility] [id number] [place] [address] ALT [Catalytic activity/Vol] 8 U/L Normal 7-38 [facility] Comment on above: Order Comment: Speci men Type: BLOOD SPECIMENOrdering Facility: [facility] Address: [address] [place] [address] Performed By: #### 2 4323-8 ####[facility] LABCLIA [id number] [place] [address] Anion gap [Moles/Vol] 12 mmol/L Normal 9-18 [facility] Comment on above: Order Comment: Speci men Type: BLOOD SPECIMENOrdering Facility: [facility] Address: [address] [place] [address] Performed By: #### 2 4323-8 ####[facility] LABCL[facility] [id number] [place] [address] AST [Catalytic activity/Vol] 10 U/L Low 13-35 [facility] Comment on above: Order Comment: Speci men Type: BLOOD SPECIMENOrdering Facility: [facility] Address: [address] [place] [address] Performed By: #### 2 4323-8 ####[facility] LABCLIA [id number] [place] [address] Bilirubin [Mass/Vol] 0.3 mg/dL Normal 0.2-1.3 [facility] Comment on above: Order Comment: Speci men Type: BLOOD SPECIMENOrdering Facility: [facility] Address: [address] [place] [address] Performed By: #### 2 4323-8 ####[facility] LABCLIA [id number] [place] [address] Calcium [Mass/Vol] 9.4 mg/dL Normal 8.5-10.2 [facility] Comment on above: Order Comment: Speci men Type: BLOOD SPECIMENOrdering Facility: [facility] Address: [address] [place] [address] Performed By: #### 2 4323-8 ####[facility]CL[facility] [id number] [place] [address] Chloride [Moles/Vol] 104 mmol/L Normal 97-105 [facility] Comment on above: Order Comment: Speci men Type: BLOOD SPECIMENOrdering Facility: [facility] Address: [address] [place] [address] Performed By: #### 2 4323-8 ####[facility]CL[facility] [id number] [place] [address] CO2 [Moles/Vol] 26 mmol/L Normal 22-30 [facility] Comment on above: Order Comment: Speci men Type: BLOOD SPECIMENOrdering Facility: [facility] Address: [address] [place] [address] Performed By: #### 2 4323-8 ####[facility]CL[facility] [id number] [place] [address] Creatinine [Mass/Vol] 0.97 mg/dL High 0.58-0.96 [facility] Comment on above: Order Comment: Speci men Type: BLOOD SPECIMENOrdering Facility: [facility] Address: [address] [place] [address] Performed By: #### 2 4323-8 ####[facility] [id number] [place] [address] Creatinine and Glomerular filtration rate.predicted panel (S/P/Bld) 59 mL/min/1.73m??? Low >=60 [facility] Comment on above: Order Comment: Speci men Type: BLOOD SPECIMENOrdering Facility: [facility] Address: [address] [place] [address] Result Comment: Kim mated Glomerular Filtration Rate (eGFR) is calculated using the 2020 CKD-EPI creatinine equation. This equation utilizes serum creatinine, sex, and age as parameters. The creatinine assay has traceable calibration to isotope dilution-mass spectrometry. Refer to KDIGO guidelines for clinical interpretation. In patients with unstable renal function, e.g. those with acute kidney injury, the eGFR may not accurately reflect actual GFR. Performed By: #### 2 4323-8 ####[facility]CL[facility] [id number] [place] [address] Glucose [Mass/Vol] 114 mg/dL High 74-99 [facility] Comment on above: Order Comment: Speci men Type: BLOOD SPECIMENOrdering Facility: [facility] Address: [address] [place] [address] Result Comment: The [place] Diabetes Association (ADA) provides guidance for cutoff values for fasting glucose and random glucose. The ADA defines fasting as no caloric intake for at least 8 hours. Fasting plasma glucose results between 100 to 125 mg/dL indicate increased risk for diabetes (prediabetes).Fasting plasma glucose results greater than or equal to 126 mg/dL meet the criteria for diagnosis of diabetes. In the absence of unequivocal hyperglycemia, results should be confirmed by repeat testing. In a patient with classic symptoms of hyperglycemia or hyperglycemic crisis, random plasma glucose results greater than or equal to 200 mg/dL meet the criteria for diagnosis of diabetes.Reference: Standards of Medical Care in Diabetes 2016, [place] [employer]. Diabetes Care. 2016.39(Suppl 1). Performed By: #### 2 4323-8 ####[facility]CL[facility] [id number] [place] [address] Potassium [Moles/Vol] 3.0 mmol/L Low 3.7-5.1 [facility] Comment on above: Order Comment: Speci men Type: BLOOD SPECIMENOrdering Facility: [facility] Address: [address] [place] [address] Performed By: #### 2 4323-8 ####[facility] [id number] [place] [address] Protein [Mass/Vol] 6.0 g/dL Low 6.3-8.0 [facility] Comment on above: Order Comment: Speci men Type: BLOOD SPECIMENOrdering Facility: [facility] Address: [address] [place] [address] Performed By: #### 2 4323-8 ####[facility]CL[facility] [id number] [place] [address] Sodium [Moles/Vol] 142 mmol/L Normal 136-144 [facility] Comment on above: Order Comment: Speci men Type: BLOOD SPECIMENOrdering Facility: [facility] Address: [address] [address] Performed By: #### 2 4323-8 ####[facility]CL[facility] [id number] [place] [address] Urea nitrogen [Mass/Vol] 24 mg/dL High 7-21 [facility] Comment on above: Order Comment: Speci men Type: BLOOD SPECIMENOrdering Facility: [facility] Address: [place] [address] Performed By: #### 2 4323-8 ####[facility]CL[facility] [id number] [place] [address] ALLIED HEALTHon 05-25-2023 [facility] HNO ID: [id number] Author: Umm Junior MRI Tech Service: Radiology Author Type: Manager Net Type: Allied Health Filed: 05/25/2023 2:45 PM Note Text: Radiology Service Progress Note DATE OF SERVICE: May 25, 2023 TIME: 2:17 PM PATIENT IDENTITY VERIFICATION COMPLETED USING TWO (2) STANDARD IDENTIFIERS: Name and Date of confirmed by patient verbally and Name and Date of confirmed by identification band. FALL SCREENING: Has the patient had 2 falls in the last year or 1 fall with injury or currently using an Ambulatory Assistive Device (Walker, Cane, Wheelchair, Crutches, etc.)? No PATIENT GENDER DATA: Female. status: : No status: NO. PATIENT RELEVANT IMPLANT DATA REVIEWED: Yes ALLERGIES: Reviewed and unchanged CONTRAST ALLERGY: NO. EXAM: MRI - CONTRAST TYPE: GROUP II PERIPHERAL IV DATA: Ambulatory: A peripheral IV was started in the Right antecubital site with a Angio cath: 24 gauge. RADIOLOGY DEPARTMENT: MR; Exam(s) Completed: Head: Routine Brain SIGNATURE: LEENA Leonardo, Za Smith, RT(R) PATIENT NAME: Marilin Mae DATE: May 25, 2023 TIME: 2:17 PM [facility] MRI BRAIN WO/W IVCONon 05-25 MRI BRAIN WO/W IVCON * * *Final Report* * * DATE OF EXAM: May 25 2023 2:46PM [facility] 0295 - MRI BRAIN WO/W IVCON / PROCEDURE REASON: Glioblastoma multiforme (HCC) * * * * Physician Interpretation * * * * EXAMINATION: MRI BRAIN WO/W IVCON CLINICAL HISTORY: Glioblastoma multiform he TECHNIQUE: Routine brain MRI protocol without and with contrast including diffusion images. MQ: MRBWOW_2 Contrast: 14 mL Dotarem IV COMPARISON: Brain MRI from 02/23/2023 and 12/08/2022. RESULT: Postoperative changes: Postoperative changes from prior right frontoparietal craniotomy changes are again seen with mild adjacent dural thickening and enhancement with blood breakdown products as before. Acute Change: There is no evidence of restricted diffusion to suggest an acute infarct. Hemorrhage: Extensive blood breakdown products are seen at the site of the surgical cavity about the high right parietal convexity and the right parafalcine parietal lobe, as before. Mass Lesion/ Mass Effect: Redemonstration of thick enhancing foci about the right parietal centrum semiovale with an adjacent focus at periventricular parietal garcia radiata with associated susceptibility, along with a punctate focus in the right parietal parafalcine region as before, overall increased in size since prior examination. Extensive confluent areas of T2 prolongation within the bilateral deep white matter, right more than left appear to have progressed since the prior examination. Foci of T2 prolongation in the infratentorial brain, likely represent chronic microangiopathic ischemic changes. Parenchyma: Moderate diffuse cerebral volume loss. Ventricles: Diffuse ventriculomegaly in proportion to the degree of central cerebral volume loss. Skull Base: Hypothalamic and pituitary region are grossly normal. Craniocervical junction is normal. No significant marrow replacement process. Vasculature: Major intracranial arterial structures, and dural venous sinuses show typical flow void, suggesting patency by spin echo criteria. Other: Mild polypoid mucosal thickening of the bilateral maxillary sinuses. Bilateral pseudophakia fatty infiltration of the bilateral parotid glands. The orbits and extracranial soft tissues are unremarkable. IMPRESSION: Interval further increase in the size and definition of the previously seen foci of avid enhancement in the right parietal region with associated susceptibility, along with increased right more than left asymmetric confluent deep white matter T2 prolongation. Additional ancillary findings are unchanged since the prior exam. Framing Carpenter: DOV Transcribe Date/Time: May 25 2023 4:35P Dictated by : KEHINDE BECKETT MD This examination was interpreted and the report reviewed and electronically signed by: KEHINDE BECKETT MD on May 25 2023 4:55PM EST [id number] [facility] NURSING PROGon 05-25-2023 NURSING PROG HNO ID: [id number] Author: Gloria Hare RN Service: Radiology Author Type: Registered Nurse Type: Nursing Progress Note Filed: 05/25/2023 2:46 PM Note Text: Radiology Service Progress Note DATE OF SERVICE: May 25, 2023 TIME: 2:45 PM PATIENT WEIGHT: 152 LBS PATIENT IDENTITY VERIFICATION COMPLETED USING TWO (2) STANDARD IDENTIFIERS: Name and Date of confirmed by patient verbally and Name and Date of confirmed by identification band. FALL SCREENING: Has the patient had 2 falls in the last year or 1 fall with injury or currently using an Ambulatory Assistive Device (Walker, Cane, Wheelchair, Crutches, etc.)? No PATIENT GENDER DATA: Female. status: : No status: NO. ALLERGIES: Reviewed and unchanged CONTRAST ALLERGY: No EXAM: MRI - CONTRAST TYPE: GROUP II IV SITE: Ambulatory: A peripheral IV was started in the Right antecubital site with a Angio cath: 24 gauge. and A Saline lock was inserted per protocol inserted by Willy Corrigan Rn IV SITE APPEARANCE: Clean,Dry and Intact SIGNATURE: Gloria Hare RN PATIENT NAME: Marilin Mae DATE: May 25, 2023 TIME: 2:45 PM [facility] BRIEF OP NOTon 05-24-2023 BRIEF OP NOT Normal [facility] HISTORY PHYSICALon HISTORY PHYSICAL Normal [facility] IR IVC FILTER REMOVALon IR IVC FILTER REMOVAL Normal [facility] NURSING PROGon 05-24-2023 NURSING PROG Normal [facility] PT EDon 05-24-2023 PT ED Normal [facility] SURGICAL PATHOLOGYon 023 CASE REPORT Normal [facility] Comment on above: Order Comment: Speci men Type: TISSUE SPECIMENOrdering Facility: [facility] Address: [address] [place] [address] Result Comment: Surg ical Pathology Report Case: [id number] Provider: Pato Beltre MD Collected: 05/24/2023 03:02 PMOrdering Location: [place] [address] Received: 05/25/2023 01:03 AMPathologist: Beny Underwood MD, PhDSpecimen: HARDWARE Performed By: #### S ####[facility] LABCLIA [id number] [place] [address] [place] CLINICAL HISTORY IVC filter removal Normal [facility] Comment on above: Order Comment: Speci men Type: TISSUE SPECIMENOrdering Facility: [facility] Address: [address] [place] [address] Performed By: #### S ####[facility] LABCLIA [id number] [place] [address] [place] FINAL DIAGNOSIS Normal [facility] Comment on above: Order Comment: Speci men Type: TISSUE SPECIMENOrdering Facility: [facility] Address: [address] [place] [address] Result Comment: A. I nferior vena cava, removal:-Vascular Filter (gross examination only)./MLG Performed By: #### S ####[facility] LABCLIA [id number] [address] [place] FINAL PERFORMING LAB Normal [facility] Comment on above: Order Comment: Speci men Type: TISSUE SPECIMENOrdering Facility: [facility] Address: [address] [place] [address] Result Comment: Diag nostic interpretation performed at [facility], [address] [place] [address] CLIA# [id number] Director: Mike Escobedo M.D. Performed By: #### S ####[facility] LABCLIA [id number] [place] [address] [place] GROSS DESCRIPTION A. HARDWARE Normal [facility] Comment on above: Order Comment: Speci men Type: TISSUE SPECIMENOrdering Facility: [facility] Address: [address] [place] [address] Result Comment: Rece ived fresh labeled as hardware is a vascular filter composed of six struts. The vascular filter is intact with no soft tissue present. Photographs are taken. No sections are taken. The specimen is reviewed with Dr. Underwood.[facility] May 25, 2023 10:44 AMGross examination performed at [facility], [address] [place] [address] Performed By: #### S ####[facility] LABCLIA [id number] [facility] [id number] [address] [place] Basic metabolic 2000 panelon 05-22-2023 Anion gap [Moles/Vol] 12 mmol/L Normal 9-18 [facility] Comment on above: Order Comment: Speci men Type: BLOOD SPECIMENOrdering Facility: [facility] Address: [address] [place] [address] Performed By: #### 2 4321-2 ####[facility] LABCLIA [id number] [place] [address] Calcium [Mass/Vol] 9.7 mg/dL Normal 8.5-10.2 [facility] Comment on above: Order Comment: Speci men Type: BLOOD SPECIMENOrdering Facility: [facility] Address: [address] [place] [address] Performed By: #### 2 4321-2 ####[facility] LABCLIA [id number] [place] [address] Chloride [Moles/Vol] 103 mmol/L Normal 97-105 [facility] Comment on above: Order Comment: Speci men Type: BLOOD SPECIMENOrdering Facility: [facility] Address: [address] [place] [address] Performed By: #### 2 4321-2 ####[facility] LABCLIA [id number] [place] [address] CO2 [Moles/Vol] 24 mmol/L Normal 22-30 [facility] Comment on above: Order Comment: Speci men Type: BLOOD SPECIMENOrdering Facility: [facility] Address: [address] [place] [address] Performed By: #### 2 4321-2 ####[facility] LABCLIA [id number] [place] [address] Creatinine [Mass/Vol] 0.78 mg/dL Normal 0.58-0.96 [facility] Comment on above: Order Comment: Speci men Type: BLOOD SPECIMENOrdering Facility: [facility] Address: [address] [place] [address] Performed By: #### 2 4321-2 ####[facility] LABCLIA [id number] [place] [address] Creatinine and Glomerular filtration rate.predicted panel (S/P/Bld) 77 mL/min/1.73m??? Normal >=60 [facility] Comment on above: Order Comment: Speci men Type: BLOOD SPECIMENOrdering Facility: [facility] Address: [address] [place] [address] Result Comment: Kim mated Glomerular Filtration Rate (eGFR) is calculated using the 2020 CKD-EPI creatinine equation. This equation utilizes serum creatinine, sex, and age as parameters. The creatinine assay has traceable calibration to isotope dilution-mass spectrometry. Refer to KDIGO guidelines for clinical interpretation. In patients with unstable renal function, e.g. those with acute kidney injury, the eGFR may not accurately reflect actual GFR. Performed By: #### 2 4321-2 ####[facility] LABCLIA [id number] [place] [address] Glucose [Mass/Vol] 157 mg/dL High 74-99 [facility] Comment on above: Order Comment: Speci men Type: BLOOD SPECIMENOrdering Facility: [facility] Address: [address] [place] [address] Result Comment: The [place] Diabetes Association (ADA) provides guidance for cutoff values for fasting glucose and random glucose. The ADA defines fasting as no caloric intake for at least 8 hours. Fasting plasma glucose results between 100 to 125 mg/dL indicate increased risk for diabetes (prediabetes).Fasting plasma glucose results greater than or equal to 126 mg/dL meet the criteria for diagnosis of diabetes. In the absence of unequivocal hyperglycemia, results should be confirmed by repeat testing. In a patient with classic symptoms of hyperglycemia or hyperglycemic crisis, random plasma glucose results greater than or equal to 200 mg/dL meet the criteria for diagnosis of diabetes.Reference: Standards of Medical Care in Diabetes 2016, [place] [employer]. Diabetes Care. 2016.39(Suppl 1). Performed By: #### 2 4321-2 ####[facility] LABCLIA [id number] [place] [address] Potassium [Moles/Vol] 3.3 mmol/L Low 3.7-5.1 [facility] Comment on above: Order Comment: Speci men Type: BLOOD SPECIMENOrdering Facility: [facility] Address: [address] [place] [address] Performed By: #### 2 4321-2 ####[facility] [id number] [place] [address] Sodium [Moles/Vol] 139 mmol/L Normal 136-144 [facility] Comment on above: Order Comment: Speci men Type: BLOOD SPECIMENOrdering Facility: [facility] Address: [address] [place] [address] Performed By: #### 2 4321-2 ####[facility] LABCLIA [id number] [place] [address] Urea nitrogen [Mass/Vol] 26 mg/dL High 7-21 [facility] Comment on above: Order Comment: Speci men Type: BLOOD SPECIMENOrdering Facility: [facility] Address: [address] [place] [address] Performed By: #### 2 4321-2 ####[facility] LABIA [id number] [place] [address] CBC W Auto Differential pane l (Bld)on 05-22-2023 Basophils (Bld) [#/Vol] 10*3/uL Normal <0.11 [facility] Comment on above: Order Comment: Speci men Type: BLOOD SPECIMENOrdering Facility: [facility] Address: [address] [place] [address] Performed By: #### 5 7021-8 ####[facility] LABCLIA [id number] [place] [address] Basophils/100 WBC (Bld) 0.3 % Normal [facility] Comment on above: Order Comment: Speci men Type: BLOOD SPECIMENOrdering Facility: [facility] Address: [address] [place] [address] Performed By: #### 5 7021-8 ####[facility] LABCLIA [id number] [place] [address] Differential cell count method Nom (Bld) Auto Normal [facility] Comment on above: Order Comment: Speci men Type: BLOOD SPECIMENOrdering Facility: [facility] Address: [address] [place] [address] Performed By: #### 5 7021-8 ####[facility] LABCLIA [id number] [place] [address] Eosinophils (Bld) [#/Vol] 10*3/uL Normal <0.46 [facility] Comment on above: Order Comment: Speci men Type: BLOOD SPECIMENOrdering Facility: [facility] Address: [address] [place] [address] Performed By: #### 5 7021-8 ####[facility] LABCLIA [id number] [place] [address] Eosinophils/100 WBC (Bld) 0.1 % Normal [facility] Comment on above: Order Comment: Speci men Type: BLOOD SPECIMENOrdering Facility: [facility] Address: [address] [place] [address] Performed By: #### 5 7021-8 ####[facility] LABCLIA [id number] [place] [address] Erythrocyte distribution width (RBC) [Ratio] 14.5 % Normal 11.5-15.0 [facility] Comment on above: Order Comment: Speci men Type: BLOOD SPECIMENOrdering Facility: [facility] Address: [address] [place] [address] Performed By: #### 5 7021-8 ####[facility] LABCLIA [id number] [place] [address] Hematocrit (Bld) [Volume fraction] 35.1 % Low 36.0-46.0 [facility] Comment on above: Order Comment: Speci men Type: BLOOD SPECIMENOrdering Facility: [facility] Address: [address] [place] [address] Performed By: #### 5 7021-8 ####[facility] LABIA [id number] [place] [address] Hemoglobin (Bld) [Mass/Vol] 11.6 g/dL Normal 11.5-15.5 [facility] Comment on above: Order Comment: Speci men Type: BLOOD SPECIMENOrdering Facility: [facility] Address: [address] [place] [address] Performed By: #### 5 7021-8 ####[facility] LABCLIA [id number] [place] [address] Immature granulocytes (Bld) [#/Vol] 0.11 10*3/uL High <0.10 [facility] Comment on above: Order Comment: Speci men Type: BLOOD SPECIMENOrdering Facility: [facility] Address: [address] [place] [address] Performed By: #### 5 7021-8 ####[facility] LAB[facility] [id number] [place] [address] Immature granulocytes/100 WBC (Bld) 1.6 % Normal [facility] Comment on above: Order Comment: Speci men Type: BLOOD SPECIMENOrdering Facility: [facility] Address: [address] [place] [address] Performed By: #### 5 7021-8 ####[facility] LABCLIA [id number] [place] [address] Lymphocytes (Bld) [#/Vol] 0.41 10*3/uL Low 1.00-4.00 [facility] Comment on above: Order Comment: Speci men Type: BLOOD SPECIMENOrdering Facility: [facility] Address: [address] [place] [address] Performed By: #### 5 7021-8 ####[facility] LABCLIA [id number] [place] [address] Lymphocytes/100 WBC (Bld) 6.0 % Normal [facility] Comment on above: Order Comment: Speci men Type: BLOOD SPECIMENOrdering Facility: [facility] Address: [address] [place] [address] Performed By: #### 5 7021-8 ####[facility] LABCLIA [id number] [place] [address] MCH (RBC) [Entitic mass] 32.1 pg Normal 26.0-34.0 [facility] Comment on above: Order Comment: Speci men Type: BLOOD SPECIMENOrdering Facility: [facility] Address: [address] [place] [address] Performed By: #### 5 7021-8 ####[facility] LABCLIA [id number] [place] [address] MCHC (RBC) [Mass/Vol] 33.0 g/dL Normal 30.5-36.0 [facility] Comment on above: Order Comment: Speci men Type: BLOOD SPECIMENOrdering Facility: [facility] Address: [address] [place] [address] Performed By: #### 5 7021-8 ####[facility] LABCLIA [id number] [place] [address] MCV (RBC) [Entitic vol] 97.2 fL Normal 80.0-100.0 [facility] Comment on above: Order Comment: Speci men Type: BLOOD SPECIMENOrdering Facility: [facility] Address: [address] [place] [address] Performed By: #### 5 7021-8 ####[facility] LABCLIA [id number] [place] [address] Monocytes (Bld) [#/Vol] 0.16 10*3/uL Normal <0.87 [facility] Comment on above: Order Comment: Speci men Type: BLOOD SPECIMENOrdering Facility: [facility] Address: [address] [place] [address] Performed By: #### 5 7021-8 ####[facility] LABCLIA [id number] [place] [address] Monocytes/100 WBC (Bld) 2.3 % Normal [facility] Comment on above: Order Comment: Speci men Type: BLOOD SPECIMENOrdering Facility: [facility] Address: [address] [place] [address] Performed By: #### 5 7021-8 ####[facility] LABCLIA [id number] [place] [address] Neutrophils (Bld) [#/Vol] 6.12 10*3/uL Normal 1.45-7.50 [facility] Comment on above: Order Comment: Speci men Type: BLOOD SPECIMENOrdering Facility: [facility] Address: [address] [place] [address] Performed By: #### 5 7021-8 ####[facility] LABCLIA [id number] [place] [address] Neutrophils/100 WBC (Bld) 89.7 % Normal [facility] Comment on above: Order Comment: Speci men Type: BLOOD SPECIMENOrdering Facility: [facility] Address: [address] [place] [address] Performed By: #### 5 7021-8 ####[facility] LABCLIA [id number] [place] [address] Nucleated RBC (Bld) [#/Vol] 10*3/uL Normal <0.01 [facility] Comment on above: Order Comment: Speci men Type: BLOOD SPECIMENOrdering Facility: [facility] Address: [address] [place] [address] Performed By: #### 5 7021-8 ####[facility] LABCLIA [id number] [place] [address] Nucleated RBC/100 WBC (Bld) [Ratio] 0.0 /100 WBC Normal [facility] Comment on above: Order Comment: Speci men Type: BLOOD SPECIMENOrdering Facility: [facility] Address: [address] [place] [address] Performed By: #### 5 7021-8 ####[facility] LABCLIA [id number] [place] [address] Platelet mean volume (Bld) [Entitic vol] 10.3 fL Normal 9.0-12.7 [facility] Comment on above: Order Comment: Speci men Type: BLOOD SPECIMENOrdering Facility: [facility] Address: [address] [place] [address] Performed By: #### 5 7021-8 ####[facility] LABCLIA [id number] [place] [address] Platelets (Bld) [#/Vol] 232 10*3/uL Normal 150-400 [facility] Comment on above: Order Comment: Speci men Type: BLOOD SPECIMENOrdering Facility: [facility] Address: [address] [place] [address] Performed By: #### 5 7021-8 ####[facility] LABCLIA [id number] [place] [address] RBC (Bld) [#/Vol] 3.61 10*6/uL Low 3.90-5.20 [facility] Comment on above: Order Comment: Speci men Type: BLOOD SPECIMENOrdering Facility: [facility] Address: [address] [place] [address] Performed By: #### 5 7021-8 ####[facility] LABCLIA [id number] [place] [address] WBC (Bld) [#/Vol] 6.83 10*3/uL Normal 3.70-11.00 [facility] Comment on above: Order Comment: Speci men Type: BLOOD SPECIMENOrdering Facility: [facility] Address: [address] [place] [address] Performed By: #### 5 7021-8 ####[facility] LABCLIA [id number] [place] [address] PT panel Coag (PPP)on 2022 INR Coag (PPP) [Relative time] 1.0 {INR} Normal 0.9-1.3 [facility] Comment on above: Order Comment: Speci men Type: BLOOD SPECIMENOrdering Facility: [facility] Address: [address] [place] [address] Result Comment: Milana min K Antagonist (VKA) Therapeutic Range: INR 2 to 3 (Target INR of 2.5)Note: For patients treated with VKA drugs, such as warfarin, the [employer] 2012 Guideline recommends a therapeutic INR range of 2 to 3 (target INR of 2.5). This recommendation includes high-risk patients with antiphospholipid syndrome with previous arterial or venous thromboembolism, current-generation mechanical or bioprosthetic aortic heart valve replacement.Note: Patients with mechanical aortic valve replacement and additional risk factors for thromboembolic events (atrial fibrillation, previous thromboembolism, LV dysfunction, hypercoagulable conditions) or an older generation mechanical AVR (i.e., ball in-Cage) or any mechanical MVR should have a INR therapeutic range of 2.5 to 3.5 (target INR of 3).Funmilayo GH, et al. Chest 2012, 141:7S-47SKevin RA, et al. [facility] 2017, 70: 252-289 Performed By: #### 3 4528-0 ####[facility] LABCLIA [id number] [facility] [id number] [place] PT Coag (PPP) [Time] 10.5 s Normal 9.7-13.0 [facility] Comment on above: Order Comment: Speci men Type: BLOOD SPECIMENOrdering Facility: [facility] Address: [address] [place] [address] Performed By: #### 3 4528-0 ####[facility] LABCLIA [id number] [facility] [id number] [address] [facility] [place] NURSING PROGon 05-17-2023 NURSING PROG Normal [facility] CNPNon 05-11-2023 CNPN Normal [facility] CBC W Auto Differential pane l (Bld)on 05-04-2023 Basophils (Bld) [#/Vol] 10*3/uL Normal <0.11 [facility] Comment on above: Order Comment: Speci men Type: BLOOD SPECIMENOrdering Facility: [facility] Address: [address] [place] [address] Performed By: #### 5 7021-8 ####[facility] LABCLIA [id number] [place] [address] Basophils/100 WBC (Bld) 0.2 % Normal [facility] Comment on above: Order Comment: Speci men Type: BLOOD SPECIMENOrdering Facility: [facility] Address: [address] [place] [address] Performed By: #### 5 7021-8 ####[facility] LABCLIA [id number] [place] [address] Differential cell count method Nom (Bld) Auto Normal [facility] Comment on above: Order Comment: Speci men Type: BLOOD SPECIMENOrdering Facility: [facility] Address: [address] [place] [address] Performed By: #### 5 7021-8 ####[facility] LABCLIA [id number] [place] [address] Eosinophils (Bld) [#/Vol] 10*3/uL Normal <0.46 [facility] Comment on above: Order Comment: Speci men Type: BLOOD SPECIMENOrdering Facility: [facility] Address: [address] [place] [address] Performed By: #### 5 7021-8 ####[facility] LABCLIA [id number] [place] [address] Eosinophils/100 WBC (Bld) 0.1 % Normal [facility] Comment on above: Order Comment: Speci men Type: BLOOD SPECIMENOrdering Facility: [facility] Address: [address] [place] [address] Performed By: #### 5 7021-8 ####[facility] LABCLIA [id number] [place] [address] Erythrocyte distribution width (RBC) [Ratio] 14.6 % Normal 11.5-15.0 [facility] Comment on above: Order Comment: Speci men Type: BLOOD SPECIMENOrdering Facility: [facility] Address: [address] [place] [address] Performed By: #### 5 7021-8 ####[facility] LABCLIA [id number] [place] [address] Hematocrit (Bld) [Volume fraction] 34.7 % Low 36.0-46.0 [facility] Comment on above: Order Comment: Speci men Type: BLOOD SPECIMENOrdering Facility: [facility] Address: [address] [place] [address] Performed By: #### 5 7021-8 ####[facility] LABCLIA [id number] [place] [address] Hemoglobin (Bld) [Mass/Vol] 11.4 g/dL Low 11.5-15.5 [facility] Comment on above: Order Comment: Speci men Type: BLOOD SPECIMENOrdering Facility: [facility] Address: [address] [place] [address] Performed By: #### 5 7021-8 ####[facility] LABCLIA [id number] [place] [address] Immature granulocytes (Bld) [#/Vol] 0.31 10*3/uL High <0.10 [facility] Comment on above: Order Comment: Speci men Type: BLOOD SPECIMENOrdering Facility: [facility] Address: [address] [place] [address] Performed By: #### 5 7021-8 ####[facility] LABCLIA [id number] [place] [address] Immature granulocytes/100 WBC (Bld) 2.9 % Normal [facility] Comment on above: Order Comment: Speci men Type: BLOOD SPECIMENOrdering Facility: [facility] Address: [address] [place] [address] Performed By: #### 5 7021-8 ####[facility] LABCLIA [id number] [place] [address] Lymphocytes (Bld) [#/Vol] 0.62 10*3/uL Low 1.00-4.00 [facility] Comment on above: Order Comment: Speci men Type: BLOOD SPECIMENOrdering Facility: [facility] Address: [address] [place] [address] Performed By: #### 5 7021-8 ####[facility] LABCLIA [id number] [place] [address] Lymphocytes/100 WBC (Bld) 5.7 % Normal [facility] Comment on above: Order Comment: Speci men Type: BLOOD SPECIMENOrdering Facility: [facility] Address: [address] [place] [address] Performed By: #### 5 7021-8 ####[facility] LABCLIA [id number] [place] [address] MCH (RBC) [Entitic mass] 32.9 pg Normal 26.0-34.0 [facility] Comment on above: Order Comment: Speci men Type: BLOOD SPECIMENOrdering Facility: [facility] Address: [address] [place] [address] Performed By: #### 5 7021-8 ####[facility] LABCLIA [id number] [place] [address] MCHC (RBC) [Mass/Vol] 32.9 g/dL Normal 30.5-36.0 [facility] Comment on above: Order Comment: Speci men Type: BLOOD SPECIMENOrdering Facility: [facility] Address: [address] [place] [address] Performed By: #### 5 7021-8 ####[facility] LABCLIA [id number] [place] [address] MCV (RBC) [Entitic vol] 100.0 fL Normal 80.0-100.0 C [facility] Comment on above: Order Comment: Speci men Type: BLOOD SPECIMENOrdering Facility: [facility] Address: [address] [place] [address] Performed By: #### 5 7021-8 ####[facility] LABCLIA [id number] [place] [address] Monocytes (Bld) [#/Vol] 0.81 10*3/uL Normal <0.87 [facility] Comment on above: Order Comment: Speci men Type: BLOOD SPECIMENOrdering Facility: [facility] Address: [address] [place] [address] Performed By: #### 5 7021-8 ####[facility] LABCLIA [id number] [place] [address] Monocytes/100 WBC (Bld) 7.5 % Normal C [facility] Comment on above: Order Comment: Speci men Type: BLOOD SPECIMENOrdering Facility: [facility] Address: [address] [place] [address] Performed By: #### 5 7021-8 ####[facility] LABCLIA [id number] [place] [address] Neutrophils (Bld) [#/Vol] 9.09 10*3/uL High 1.45-7.50 [facility] Comment on above: Order Comment: Speci men Type: BLOOD SPECIMENOrdering Facility: [facility] Address: [address] [place] [address] Performed By: #### 5 7021-8 ####[facility] LABCLIA [id number] [place] [address] Neutrophils/100 WBC (Bld) 83.6 % Normal [facility] Comment on above: Order Comment: Speci men Type: BLOOD SPECIMENOrdering Facility: [facility] Address: [address] [place] [address] Performed By: #### 5 7021-8 ####[facility] LABCLIA [id number] [place] [address] Nucleated RBC (Bld) [#/Vol] 10*3/uL Normal <0.01 [facility] Comment on above: Order Comment: Speci men Type: BLOOD SPECIMENOrdering Facility: [facility] Address: [address] [place] [address] Performed By: #### 5 7021-8 ####[facility] LABCLIA [id number] [place] [address] Nucleated RBC/100 WBC (Bld) [Ratio] 0.0 /100 WBC Normal [facility] Comment on above: Order Comment: Speci men Type: BLOOD SPECIMENOrdering Facility: [facility] Address: [address] [place] [address] Performed By: #### 5 7021-8 ####[facility] LABCLIA [id number] [place] [address] Platelet mean volume (Bld) [Entitic vol] 10.4 fL Normal 9.0-12.7 [facility] Comment on above: Order Comment: Speci men Type: BLOOD SPECIMENOrdering Facility: [facility] Address: [address] [place] [address] Performed By: #### 5 7021-8 ####[facility] LABCLIA [id number] [place] [address] Platelets (Bld) [#/Vol] 189 10*3/uL Normal 150-400 [facility] Comment on above: Order Comment: Speci men Type: BLOOD SPECIMENOrdering Facility: [facility] Address: [address] [place] [address] Performed By: #### 5 7021-8 ####[facility] LABCLIA [id number] [place] [address] RBC (Bld) [#/Vol] 3.47 10*6/uL Low 3.90-5.20 [facility] Comment on above: Order Comment: Speci men Type: BLOOD SPECIMENOrdering Facility: [facility] Address: [address] [place] [address] Performed By: #### 5 7021-8 ####[facility] LABIA [id number] [place] [address] WBC (Bld) [#/Vol] 10.86 10*3/uL Normal 3.70-11.00 [facility] Comment on above: Order Comment: Speci men Type: BLOOD SPECIMENOrdering Facility: [facility] Address: [address] [place] [address] Performed By: #### 5 7021-8 ####[facility] LABIA [id number] [place] [address] CNOVSPon 05-04-2023 CNOVSP Normal [facility] Comprehensive metabolic 2000 panelon 05-04-2023 Albumin [Mass/Vol] 4.2 g/dL Normal 3.9-4.9 [facility] Comment on above: Order Comment: Speci men Type: BLOOD SPECIMENOrdering Facility: [facility] Address: [address] [place] [address] Performed By: #### 2 4323-8 ####[facility] LABCLIA [id number] [place] [address] ALP [Catalytic activity/Vol] 39 U/L Normal 34-123 [facility] Comment on above: Order Comment: Speci men Type: BLOOD SPECIMENOrdering Facility: [facility] Address: [address] [place] [address] Performed By: #### 2 4323-8 ####[facility] LABCLIA [id number] [place] [address] ALT [Catalytic activity/Vol] 12 U/L Normal 7-38 [facility] Comment on above: Order Comment: Speci men Type: BLOOD SPECIMENOrdering Facility: [facility] Address: [address] [place] [address] Performed By: #### 2 4323-8 ####[facility] LABCLIA [id number] [place] [address] Anion gap [Moles/Vol] 11 mmol/L Normal 9-18 [facility] Comment on above: Order Comment: Speci men Type: BLOOD SPECIMENOrdering Facility: [facility] Address: [address] [place] [address] Performed By: #### 2 4323-8 ####[facility] LABCLIA [id number] [place] [address] AST [Catalytic activity/Vol] 11 U/L Low 13-35 [facility] Comment on above: Order Comment: Speci men Type: BLOOD SPECIMENOrdering Facility: [facility] Address: [address] [place] [address] Performed By: #### 2 4323-8 ####[facility] LABCLIA [id number] [place] [address] Bilirubin [Mass/Vol] 0.3 mg/dL Normal 0.2-1.3 [facility] Comment on above: Order Comment: Speci men Type: BLOOD SPECIMENOrdering Facility: [facility] Address: [address] [place] [address] Performed By: #### 2 4323-8 ####[facility] LABCLIA [id number] [place] [address] Calcium [Mass/Vol] 10.0 mg/dL Normal 8.5-10.2 [facility] Comment on above: Order Comment: Speci men Type: BLOOD SPECIMENOrdering Facility: [facility] Address: [address] [place] [address] Result Comment: LO PENALOZA JT Performed By: #### 2 4323-8 ####[facility] LABCLIA [id number] [place] [address] Chloride [Moles/Vol] 105 mmol/L Normal 97-105 [facility] Comment on above: Order Comment: Speci men Type: BLOOD SPECIMENOrdering Facility: [facility] Address: [address] [place] [address] Performed By: #### 2 4323-8 ####[facility] LABCLIA [id number] [place] [address] CO2 [Moles/Vol] 28 mmol/L Normal 22-30 [facility] Comment on above: Order Comment: Speci men Type: BLOOD SPECIMENOrdering Facility: [facility] Address: [address] [place] [address] Performed By: #### 2 4323-8 ####[facility] LABCLIA [id number] [place] [address] Creatinine [Mass/Vol] 0.79 mg/dL Normal 0.58-0.96 [facility] Comment on above: Order Comment: Speci men Type: BLOOD SPECIMENOrdering Facility: [facility] Address: [address] [place] [address] Performed By: #### 2 4323-8 ####[facility] LABCLIA [id number] [place] [address] Creatinine and Glomerular filtration rate.predicted panel (S/P/Bld) 76 mL/min/1.73m??? Normal >=60 [facility] Comment on above: Order Comment: Speci men Type: BLOOD SPECIMENOrdering Facility: [facility] Address: [address] [place] [address] Result Comment: Kim mated Glomerular Filtration Rate (eGFR) is calculated using the 2020 CKD-EPI creatinine equation. This equation utilizes serum creatinine, sex, and age as parameters. The creatinine assay has traceable calibration to isotope dilution-mass spectrometry. Refer to KDIGO guidelines for clinical interpretation. In patients with unstable renal function, e.g. those with acute kidney injury, the eGFR may not accurately reflect actual GFR. Performed By: #### 2 4323-8 ####[facility] LABCLIA [id number] [place] [address] Glucose [Mass/Vol] 84 mg/dL Normal 74-99 [facility] Comment on above: Order Comment: Speci men Type: BLOOD SPECIMENOrdering Facility: [facility] Address: [address] [place] [address] Result Comment: The [place] [employer] (ADA) provides guidance for cutoff values for fasting glucose and random glucose. The ADA defines fasting as no caloric intake for at least 8 hours. Fasting plasma glucose results between 100 to 125 mg/dL indicate increased risk for diabetes (prediabetes).Fasting plasma glucose results greater than or equal to 126 mg/dL meet the criteria for diagnosis of diabetes. In the absence of unequivocal hyperglycemia, results should be confirmed by repeat testing. In a patient with classic symptoms of hyperglycemia or hyperglycemic crisis, random plasma glucose results greater than or equal to 200 mg/dL meet the criteria for diagnosis of diabetes.Reference: Standards of Medical Care in Diabetes 2016, [place] [employer]. Diabetes Care. 2016.39(Suppl 1). Performed By: #### 2 4323-8 ####[facility] LABCLIA [id number] [place] [address] Potassium [Moles/Vol] 3.3 mmol/L Low 3.7-5.1 [facility] Comment on above: Order Comment: Speci men Type: BLOOD SPECIMENOrdering Facility: [facility] Address: [address] [place] [address] Performed By: #### 2 4323-8 ####[facility] LABCLIA [id number] [place] [address] Protein [Mass/Vol] 6.1 g/dL Low 6.3-8.0 [facility] Comment on above: Order Comment: Speci men Type: BLOOD SPECIMENOrdering Facility: [facility] Address: [address] [place] [id number] Performed By: #### 2 4323-8 ####[facility] LABCLIA [id number] [place] [address] Sodium [Moles/Vol] 144 mmol/L Normal 136-144 [facility] Comment on above: Order Comment: Speci men Type: BLOOD SPECIMENOrdering Facility: [facility] Address: [address] [place] [address] Performed By: #### 2 4323-8 ####[facility] LABCLIA [id number] [place] [address] Urea nitrogen [Mass/Vol] 33 mg/dL High 7-21 [facility] Comment on above: Order Comment: Speci men Type: BLOOD SPECIMENOrdering Facility: [facility] Address: [address] [place] [address] Performed By: #### 2 4323-8 ####[facility] LABCLIA [id number] [place] [address] US LEG VEIN DVT VIVIENNE VAS LABo n 04-13-2023 US LEG VEIN DVT VIVIENNE VAS LAB Normal [facility] CNPNon 04-09-2023 CNPN Normal [facility] CBC W Auto Differential pane l (Bld)on 04-04-2023 Anisocytosis Ql (Bld) Present Normal [facility] Comment on above: Order Comment: Speci men Type: BLOOD SPECIMENOrdering Facility: [facility] Address: [address] [place] [id number] Performed By: #### 5 7021-8 ####[facility] LABCLIA [id number] [place], [place] [address]CL[facility] [id number] [place] [address] [place] Basophils (Bld) [#/Vol] 0.00 10*3/uL Normal <0.11 [facility] Comment on above: Order Comment: Speci men Type: BLOOD SPECIMENOrdering Facility: [facility] Address: [address] [place] [address] Performed By: #### 5 7021-8 ####[facility] LABCLIA [id number] [address] LABCLIA [id number] [place] [address] [place] Basophils/100 WBC (Bld) 0.0 % Normal [facility] Comment on above: Order Comment: Speci men Type: BLOOD SPECIMENOrdering Facility: [facility] Address: [address] [place] [address] Performed By: #### 5 7021-8 ####[facility] LABCLIA [id number] [address] LABCLIA [id number] [place] [address] [place] Dacrocytes LM Ql (Bld) Few Normal [facility] Comment on above: Order Comment: Speci men Type: BLOOD SPECIMENOrdering Facility: [facility] Address: [address] [place] [address] Performed By: #### 5 7021-8 ####[facility] LABCLIA [id number] [address] LABCLIA [id number] [place] [address] [place] Differential cell count method Nom (Bld) Manual Normal [facility] Comment on above: Order Comment: Speci men Type: BLOOD SPECIMENOrdering Facility: [facility] Address: [address] [place] [address] Performed By: #### 5 7021-8 ####[facility] LABCLIA [id number] [address] LABCLIA [id number] [place] [address] [place] Eosinophils (Bld) [#/Vol] 0.00 10*3/uL Normal <0.46 [facility] Comment on above: Order Comment: Speci men Type: BLOOD SPECIMENOrdering Facility: [facility] Address: [address] [place] [address] Performed By: #### 5 7021-8 ####[facility] LABCLIA [id number] [address] LABCLIA [id number] [place] [address] [place] Eosinophils/100 WBC (Bld) 0.0 % Normal [facility] Comment on above: Order Comment: Speci men Type: BLOOD SPECIMENOrdering Facility: [facility] Address: [address] [place], [place] [address] Performed By: #### 5 7021-8 ####[facility] LABCLIA [id number] [address] LABCLIA [id number] [place] [address] [place] Erythrocyte distribution width (RBC) [Ratio] 15.2 % High 11.5-15.0 [facility] Comment on above: Order Comment: Speci men Type: BLOOD SPECIMENOrdering Facility: [facility] Address: [address] Performed By: #### 5 7021-8 ####[facility] LABCLIA [id number] [address] LABCLIA [id number] [place] [address] [place] Hematocrit (Bld) [Volume fraction] 34.4 % Low 36.0-46.0 [facility] Comment on above: Order Comment: Speci men Type: BLOOD SPECIMENOrdering Facility: [facility] Address: [address] [place] [address] Performed By: #### 5 7021-8 ####[facility] LABCLIA [id number] [address] LABCLIA [id number] [place] [address] [place] Hemoglobin (Bld) [Mass/Vol] 11.3 g/dL Low 11.5-15.5 [facility] Comment on above: Order Comment: Speci men Type: BLOOD SPECIMENOrdering Facility: [facility] Address: [address] [place] [address] Performed By: #### 5 7021-8 ####[facility] LABCLIA [id number] [address] LABCLIA [id number] [place] [address] [place] Lymphocytes (Bld) [#/Vol] 0.16 10*3/uL Low 1.00-4.00 [facility] Comment on above: Order Comment: Speci men Type: BLOOD SPECIMENOrdering Facility: [facility] Address: [address] [place] [address] Performed By: #### 5 7021-8 ####[facility] LABCLIA [id number] [address] LABCLIA [id number] [place] [address] [place] Lymphocytes/100 WBC (Bld) 1.7 % Normal [facility] Comment on above: Order Comment: Speci men Type: BLOOD SPECIMENOrdering Facility: [facility] Address: [address] [place] [address] Performed By: #### 5 7021-8 ####[facility] LABCLIA [id number] [place] [address] LABCLIA [id number] [place] [address] [place] MCH (RBC) [Entitic mass] 32.6 pg Normal 26.0-34.0 [facility] Comment on above: Order Comment: Speci men Type: BLOOD SPECIMENOrdering Facility: [facility] Address: [address] [place] [address] Performed By: #### 5 7021-8 ####[facility] LABCLIA [id number] [address] LABCLIA [id number] [place] [address] [place] MCHC (RBC) [Mass/Vol] 32.8 g/dL Normal 30.5-36.0 [facility] Comment on above: Order Comment: Speci men Type: BLOOD SPECIMENOrdering Facility: [facility] Address: [address] [place], [place] [id number] Performed By: #### 5 7021-8 ####[facility] LABCLIA [id number] [address] LABCLIA [id number] [place] [address] [place] MCV (RBC) [Entitic vol] 99.1 fL Normal 80.0-100.0 [facility] Comment on above: Order Comment: Speci men Type: BLOOD SPECIMENOrdering Facility: [facility] Address: [address] [place], [place] [id number] Performed By: #### 5 7021-8 ####[facility] LABCLIA [id number] [address] LABCLIA [id number] [place] [address] [place] Metamyelocytes/100 WBC (Bld) 1.7 % Normal [facility] Comment on above: Order Comment: Speci men Type: BLOOD SPECIMENOrdering Facility: [facility] Address: [address] [place] [address] Performed By: #### 5 7021-8 ####[facility] LABCLIA [id number] [address] LABCLIA [id number] [place] [address] [place] Monocytes (Bld) [#/Vol] 0.16 10*3/uL Normal <0.87 [facility] Comment on above: Order Comment: Speci men Type: BLOOD SPECIMENOrdering Facility: [facility] Address: [address] [place] [address] Performed By: #### 5 7021-8 ####[facility] LABCLIA [id number] [address] LABCLIA [id number] [place] [address] [place] Monocytes/100 WBC (Bld) 1.7 % Normal [facility] Comment on above: Order Comment: Speci men Type: BLOOD SPECIMENOrdering Facility: [facility] Address: [address] [place] [address] Performed By: #### 5 7021-8 ####[facility] LABCLIA [id number] [address] LABCLIA [id number] [place] [address] [place] Neutrophils (Bld) [#/Vol] 9.14 10*3/uL High 1.45-7.50 [facility] Comment on above: Order Comment: Speci men Type: BLOOD SPECIMENOrdering Facility: [facility] Address: [address] [place] [address] Performed By: #### 5 7021-8 ####[facility] LABCLIA [id number] [place] [address] LABCLIA [id number] [place] [address] [place] Neutrophils/100 WBC (Bld) 94.9 % Normal [facility] Comment on above: Order Comment: Speci men Type: BLOOD SPECIMENOrdering Facility: [facility] Address: [address] [place] [address] Performed By: #### 5 7021-8 ####[facility] LABCLIA [id number] [address] LABCLIA [id number] [place] [address] [place] Nucleated RBC (Bld) [#/Vol] 10*3/uL Normal <0.01 [facility] Comment on above: Order Comment: Speci men Type: BLOOD SPECIMENOrdering Facility: [facility] Address: [address] [place] [address] Performed By: #### 5 7021-8 ####[facility] LABCLIA [id number] [address] LABCLIA [id number] [place] [address] [place] Nucleated RBC/100 WBC (Bld) [Ratio] 0.0 /100 WBC Normal [facility] Comment on above: Order Comment: Speci men Type: BLOOD SPECIMENOrdering Facility: [facility] Address: [address] [place] [address] Performed By: #### 5 7021-8 ####[facility] LABCLIA [id number] [address] LABCLIA [id number] [place] [address] [place] Ovalocytes LM Ql (Bld) Few Normal [facility] Comment on above: Order Comment: Speci men Type: BLOOD SPECIMENOrdering Facility: [facility] Address: [address] [place] [address] Performed By: #### 5 7021-8 ####[facility] LABCLIA [id number] [address] LABCLIA [id number] [place] [address] [place] Platelet mean volume (Bld) [Entitic vol] 10.0 fL Normal 9.0-12.7 [facility] Comment on above: Order Comment: Speci men Type: BLOOD SPECIMENOrdering Facility: [facility] Address: [address] [place] [address] Performed By: #### 5 7021-8 ####[facility] LABCLIA [id number] [address] LABCLIA [id number] [place] [address] [place] Platelets (Bld) [#/Vol] 196 10*3/uL Normal 150-400 [facility] Comment on above: Order Comment: Speci men Type: BLOOD SPECIMENOrdering Facility: [facility] Address: [address] [place] [address] Performed By: #### 5 7021-8 ####[facility] LABCLIA [id number] [address] LABCLIA [id number] [place] [address] [place] Platelets Estimate (Bld) [#/Vol] Adequate Normal [facility] Comment on above: Order Comment: Speci men Type: BLOOD SPECIMENOrdering Facility: [facility] Address: [address] [place], [place] [address] Performed By: #### 5 7021-8 ####[facility] LABCLIA [id number] [address] LABCLIA [id number] [place] [address] [place] Polychromasia LM Ql (Bld) Slight Normal [facility] Comment on above: Order Comment: Speci men Type: BLOOD SPECIMENOrdering Facility: [facility] Address: [address] [place] [address] Performed By: #### 5 7021-8 ####[facility] LABCLIA [id number] [address] LABCLIA [id number] [place] [address] [place] RBC (Bld) [#/Vol] 3.47 10*6/uL Low 3.90-5.20 [facility] Comment on above: Order Comment: Speci men Type: BLOOD SPECIMENOrdering Facility: [facility] Address: [address] [place] [address] Performed By: #### 5 7021-8 ####[facility] LABCLIA [id number] [address] LABCLIA [id number] [place] [address] [place] RED CELL MORPH Reviewed: see result s of individual morphologies Normal [facility] Comment on above: Order Comment: Speci men Type: BLOOD SPECIMENOrdering Facility: [facility] Address: [address] [place], [place] [address] Performed By: #### 5 7021-8 ####[facility] LABCLIA [id number] [address] LABCLIA [id number] [place] [address] [place] WBC (Bld) [#/Vol] 9.63 10*3/uL Normal 3.70-11.00 [facility] Comment on above: Order Comment: Speci men Type: BLOOD SPECIMENOrdering Facility: [facility] Address: [address] Performed By: #### 5 7021-8 ####[facility] LABCLIA [id number] [place], [place] [address] LABCLIA [id number] [place] [address] [place] WBC Left Shift Ql (Bld) Present Normal [facility] Comment on above: Order Comment: Speci men Type: BLOOD SPECIMENOrdering Facility: [facility] Address: [address] [place] [address] Performed By: #### 5 7021-8 ####[facility] LABCLIA [id number] [place] [address] LABCLIA [id number] [place] [address] [place] CNOVSPon 04-04-2023 CNOVSP Normal [facility] Comprehensive metabolic 2000 panelon 04-04-2023 Albumin [Mass/Vol] 4.0 g/dL Normal 3.9-4.9 [facility] Comment on above: Order Comment: Speci men Type: BLOOD SPECIMENOrdering Facility: [facility] Address: [address] [place] [address] Performed By: #### 2 4323-8 ####[facility] LABCLIA [id number] [place] [address] ALP [Catalytic activity/Vol] 41 U/L Normal 34-123 [facility] Comment on above: Order Comment: Speci men Type: BLOOD SPECIMENOrdering Facility: [facility] Address: [address] [place], [place] [address] Performed By: #### 2 4323-8 ####[facility] LABCLIA [id number] [place] [address] ALT [Catalytic activity/Vol] 17 U/L Normal 7-38 [facility] Comment on above: Order Comment: Speci men Type: BLOOD SPECIMENOrdering Facility: [facility] Address: [address] [place] [address] Performed By: #### 2 4323-8 ####[facility] LABCLIA [id number] [place] [address] Anion gap [Moles/Vol] 15 mmol/L Normal 9-18 [facility] Comment on above: Order Comment: Speci men Type: BLOOD SPECIMENOrdering Facility: [facility] Address: [address] [address] Performed By: #### 2 4323-8 ####[facility] LABCLIA [id number] [place] [address] AST [Catalytic activity/Vol] 11 U/L Low 13-35 [facility] Comment on above: Order Comment: Speci men Type: BLOOD SPECIMENOrdering Facility: [facility] Address: [address] [address] Performed By: #### 2 4323-8 ####[facility] LABCLIA [id number] [place] [address] Bilirubin [Mass/Vol] 0.3 mg/dL Normal 0.2-1.3 [facility] Comment on above: Order Comment: Speci men Type: BLOOD SPECIMENOrdering Facility: [facility] Address: [address] [address] Performed By: #### 2 4323-8 ####[facility] LABCLIA [id number] [place] [address] Calcium [Mass/Vol] 9.1 mg/dL Normal 8.5-10.2 [facility] Comment on above: Order Comment: Speci men Type: BLOOD SPECIMENOrdering Facility: [facility] Address: [address] [address] Performed By: #### 2 4323-8 ####[facility] LABCLIA [id number] [place] [address] Chloride [Moles/Vol] 106 mmol/L High 97-105 [facility] Comment on above: Order Comment: Speci men Type: BLOOD SPECIMENOrdering Facility: [facility] Address: [address] [place] [address] Performed By: #### 2 4323-8 ####[facility] LABCLIA [id number] [place] [address] CO2 [Moles/Vol] 21 mmol/L Low 22-30 [facility] Comment on above: Order Comment: Speci men Type: BLOOD SPECIMENOrdering Facility: [facility] Address: [address] [place] [address] Performed By: #### 2 4323-8 ####[facility] LABCLIA [id number] [place] [address] Creatinine [Mass/Vol] 0.99 mg/dL High 0.58-0.96 [facility] Comment on above: Order Comment: Speci men Type: BLOOD SPECIMENOrdering Facility: [facility] Address: [address] [place] [address] Performed By: #### 2 4323-8 ####[facility] LABCLIA [id number] [place] [address] Creatinine and Glomerular filtration rate.predicted panel (S/P/Bld) 58 mL/min/1.73m??? Low >=60 [facility] Comment on above: Order Comment: Speci men Type: BLOOD SPECIMENOrdering Facility: [facility] Address: [address] [place] [address] Result Comment: Kim mated Glomerular Filtration Rate (eGFR) is calculated using the 2020 CKD-EPI creatinine equation. This equation utilizes serum creatinine, sex, and age as parameters. The creatinine assay has traceable calibration to isotope dilution-mass spectrometry. Refer to KDIGO guidelines for clinical interpretation. In patients with unstable renal function, e.g. those with acute kidney injury, the eGFR may not accurately reflect actual GFR. Performed By: #### 2 4323-8 ####[facility] LABCLIA [id number] [place] [address] Glucose [Mass/Vol] 145 mg/dL High 74-99 [facility] Comment on above: Order Comment: Speci men Type: BLOOD SPECIMENOrdering Facility: [facility] Address: [address] [place] [address] Result Comment: The [place] Diabetes Association (ADA) provides guidance for cutoff values for fasting glucose and random glucose. The ADA defines fasting as no caloric intake for at least 8 hours. Fasting plasma glucose results between 100 to 125 mg/dL indicate increased risk for diabetes (prediabetes).Fasting plasma glucose results greater than or equal to 126 mg/dL meet the criteria for diagnosis of diabetes. In the absence of unequivocal hyperglycemia, results should be confirmed by repeat testing. In a patient with classic symptoms of hyperglycemia or hyperglycemic crisis, random plasma glucose results greater than or equal to 200 mg/dL meet the criteria for diagnosis of diabetes.Reference: Standards of Medical Care in Diabetes 2016, [place] [employer]. Diabetes Care. 2016.39(Suppl 1). Performed By: #### 2 4323-8 ####[facility] LABCLIA [id number] [place] [address] Potassium [Moles/Vol] 4.1 mmol/L Normal 3.7-5.1 [facility] Comment on above: Order Comment: Speci men Type: BLOOD SPECIMENOrdering Facility: [facility] Address: [address] [place] [address] Performed By: #### 2 4323-8 ####[facility] LABCLIA [id number] [place] [address] Protein [Mass/Vol] 5.9 g/dL Low 6.3-8.0 [facility] Comment on above: Order Comment: Speci men Type: BLOOD SPECIMENOrdering Facility: [facility] Address: [address] [place] [address] Performed By: #### 2 4323-8 ####[facility] LABCLIA [id number] [place] [address] Sodium [Moles/Vol] 142 mmol/L Normal 136-144 [facility] Comment on above: Order Comment: Speci men Type: BLOOD SPECIMENOrdering Facility: [facility] Address: [address] [place] [address] Performed By: #### 2 4323-8 ####[facility] LABCLIA [id number] [place] [address] Urea nitrogen [Mass/Vol] 32 mg/dL High 7-21 [facility] Comment on above: Order Comment: Speci men Type: BLOOD SPECIMENOrdering Facility: [facility] Address: [address] [address] Performed By: #### 2 4323-8 ####[facility] LABCLIA [id number] [place] [address] CNPNon 03-30-2023 CNPN Normal [facility] CNPNon 03-22-2023 CNPN Normal [facility] CNPNon 03-13-2023 CNPN Normal [facility] CBC W Auto Differential pane l (Bld)on 03-07-2023 Anisocytosis Ql (Bld) Present Normal [facility] Comment on above: Order Comment: Speci men Type: BLOOD SPECIMENOrdering Facility: [facility] Address: [address] [place] [address] Performed By: #### 5 7021-8 ####[facility] LABCLIA [id number] [place], [place] [address]OSCZSJVTPOH[facility] LABCL[facility] [id number] [facility] [id number] [place] [id number] [place] Basophils (Bld) [#/Vol] 0.00 10*3/uL Normal <0.11 [facility] Comment on above: Order Comment: Speci men Type: BLOOD SPECIMENOrdering Facility: [facility] Address: [address] [place] [address] Performed By: #### 5 7021-8 ####[facility] LABCLIA [id number] [address] LABCLIA [id number] [place] [address] [place] Basophils/100 WBC (Bld) 0.0 % Normal [facility] Comment on above: Order Comment: Speci men Type: BLOOD SPECIMENOrdering Facility: [facility] Address: [address] [place] [address] Performed By: #### 5 7021-8 ####[facility] LABCLIA [id number] [address] LABCLIA [id number] [place] [address] [place] Differential cell count method Nom (Bld) Manual Normal [facility] Comment on above: Order Comment: Speci men Type: BLOOD SPECIMENOrdering Facility: [facility] Address: [address] [place] [address] Performed By: #### 5 7021-8 ####[facility] LABCLIA [id number] [address] LABCLIA [id number] [place] [address] [place] Eosinophils (Bld) [#/Vol] 0.00 10*3/uL Normal <0.46 [facility] Comment on above: Order Comment: Speci men Type: BLOOD SPECIMENOrdering Facility: [facility] Address: [address] [place] [address] Performed By: #### 5 7021-8 ####[facility] LABCLIA [id number] [address] LABCLIA [id number] [place] [address] [place] Eosinophils/100 WBC (Bld) 0.0 % Normal [facility] Comment on above: Order Comment: Speci men Type: BLOOD SPECIMENOrdering Facility: [facility] Address: [address] [place] [address] Performed By: #### 5 7021-8 ####[facility] LABCLIA [id number] [address] LABCLIA [id number] [place] [address] [place] Erythrocyte distribution width (RBC) [Ratio] 15.2 % High 11.5-15.0 [facility] Comment on above: Order Comment: Speci men Type: BLOOD SPECIMENOrdering Facility: [facility] Address: [address] [place] [address] Performed By: #### 5 7021-8 ####[facility] LABCLIA [id number] [address] LABCLIA [id number] [place] [address] [place] Hematocrit (Bld) [Volume fraction] 33.0 % Low 36.0-46.0 [facility] Comment on above: Order Comment: Speci men Type: BLOOD SPECIMENOrdering Facility: [facility] Address: [address] [place] [address] Performed By: #### 5 7021-8 ####[facility] LABCLIA [id number] [address] LABCLIA [id number] [place] [address] [place] Hemoglobin (Bld) [Mass/Vol] 10.8 g/dL Low 11.5-15.5 [facility] Comment on above: Order Comment: Speci men Type: BLOOD SPECIMENOrdering Facility: [facility] Address: [address] [place] [address] Performed By: #### 5 7021-8 ####[facility] LABCLIA [id number] [address] LABCLIA [id number] [place] [address] [place] Lymphocytes (Bld) [#/Vol] 0.17 10*3/uL Low 1.00-4.00 [facility] Comment on above: Order Comment: Speci men Type: BLOOD SPECIMENOrdering Facility: [facility] Address: [address] [place] [address] Performed By: #### 5 7021-8 ####[facility] LABCLIA [id number] [address] LABCLIA [id number] [place] [address] [place] Lymphocytes/100 WBC (Bld) 1.7 % Normal [facility] Comment on above: Order Comment: Speci men Type: BLOOD SPECIMENOrdering Facility: [facility] Address: [address] [place] [address] Performed By: #### 5 7021-8 ####[facility] LABCLIA [id number] [address] LABCLIA [id number] [place] [address] [place] MCH (RBC) [Entitic mass] 33.1 pg Normal 26.0-34.0 [facility] Comment on above: Order Comment: Speci men Type: BLOOD SPECIMENOrdering Facility: [facility] Address: [address] [place], [place] [address] Performed By: #### 5 7021-8 ####[facility] LABCLIA [id number] [address] LABCLIA [id number] [place] [address] [place] MCHC (RBC) [Mass/Vol] 32.7 g/dL Normal 30.5-36.0 [facility] Comment on above: Order Comment: Speci men Type: BLOOD SPECIMENOrdering Facility: [facility] Address: [address] [place] [address] Performed By: #### 5 7021-8 ####[facility] LABCLIA [id number] [address] LABCLIA [id number] [place] [address] [place] MCV (RBC) [Entitic vol] 101.2 fL High 80.0-100.0 C [facility] Comment on above: Order Comment: Speci men Type: BLOOD SPECIMENOrdering Facility: [facility] Address: [address] [place] [address] Performed By: #### 5 7021-8 ####[facility] LABCLIA [id number] [address] LABCLIA [id number] [place] [address] [place] Monocytes (Bld) [#/Vol] 0.26 10*3/uL Normal <0.87 [facility] Comment on above: Order Comment: Speci men Type: BLOOD SPECIMENOrdering Facility: [facility] Address: [address] [place] [address] Performed By: #### 5 7021-8 ####[facility] LABCLIA [id number] [address] LABCLIA [id number] [place] [address] [place] Monocytes/100 WBC (Bld) 2.6 % Normal C [facility] Comment on above: Order Comment: Speci men Type: BLOOD SPECIMENOrdering Facility: [facility] Address: [address] [place] [address] Performed By: #### 5 7021-8 ####[facility] LABCLIA [id number] [place] [address] LABCLIA [id number] [place] [address] [place] MYELO% 0.9 % Normal [facility] Comment on above: Order Comment: Speci men Type: BLOOD SPECIMENOrdering Facility: [facility] Address: [address] [place] [address] Performed By: #### 5 7021-8 ####[facility] LABCLIA [id number] [address] LABCLIA [id number] [place] [address] [place] Neutrophils (Bld) [#/Vol] 9.49 10*3/uL High 1.45-7.50 [facility] Comment on above: Order Comment: Speci men Type: BLOOD SPECIMENOrdering Facility: [facility] Address: [address] [place] [address] Performed By: #### 5 7021-8 ####[facility] LABCLIA [id number] [address] LABCLIA [id number] [place] [address] [place] Neutrophils/100 WBC (Bld) 94.8 % Normal [facility] Comment on above: Order Comment: Speci men Type: BLOOD SPECIMENOrdering Facility: [facility] Address: [address] [place] [address] Performed By: #### 5 7021-8 ####[facility] LABCLIA [id number] [address] LABCLIA [id number] [place] [address] [place] Nucleated RBC (Bld) [#/Vol] 10*3/uL Normal <0.01 [facility] Comment on above: Order Comment: Speci men Type: BLOOD SPECIMENOrdering Facility: [facility] Address: [facility] [address] Performed By: #### 5 7021-8 ####[facility] LABCLIA [id number] [address] LABCLIA [id number] [place] [address] [place] Nucleated RBC/100 WBC (Bld) [Ratio] 0.0 /100 WBC Normal [facility] Comment on above: Order Comment: Speci men Type: BLOOD SPECIMENOrdering Facility: [facility] Address: [address] Performed By: #### 5 7021-8 ####[facility] LABCLIA [id number] [address] LABCLIA [id number] [place] [address] [place] Ovalocytes LM Ql (Bld) Few Normal [facility] Comment on above: Order Comment: Speci men Type: BLOOD SPECIMENOrdering Facility: [facility] Address: [address] Performed By: #### 5 7021-8 ####[facility] LABCLIA [id number] [address] LABCLIA [id number] [place] [address] [place] Platelet mean volume (Bld) [Entitic vol] 10.2 fL Normal 9.0-12.7 [facility] Comment on above: Order Comment: Speci men Type: BLOOD SPECIMENOrdering Facility: [facility] Address: [address] Performed By: #### 5 7021-8 ####[facility] LABCLIA [id number] [address] LABCLIA [id number] [place] [address] [place] Platelets (Bld) [#/Vol] 201 10*3/uL Normal 150-400 [facility] Comment on above: Order Comment: Speci men Type: BLOOD SPECIMENOrdering Facility: [facility] Address: [address] [place] [address] Performed By: #### 5 7021-8 ####[facility] LABCLIA [id number] [address] LABCLIA [id number] [place] [address] [place] Platelets Estimate (Bld) [#/Vol] Adequate Normal [facility] Comment on above: Order Comment: Speci men Type: BLOOD SPECIMENOrdering Facility: [facility] Address: [address] [place] [address] Performed By: #### 5 7021-8 ####[facility] LABCLIA [id number] [address] LABCLIA [id number] [place] [address] [place] Polychromasia LM Ql (Bld) Slight Normal [facility] Comment on above: Order Comment: Speci men Type: BLOOD SPECIMENOrdering Facility: [facility] Address: [address] [place], [place] [address] Performed By: #### 5 7021-8 ####[facility] LABCLIA [id number] [address] LABCLIA [id number] [place] [address] [place] RBC (Bld) [#/Vol] 3.26 10*6/uL Low 3.90-5.20 [facility] Comment on above: Order Comment: Speci men Type: BLOOD SPECIMENOrdering Facility: [facility] Address: [address] [place], [place] [id number] Performed By: #### 5 7021-8 ####[facility] LABCLIA [id number] [address] LABCLIA [id number] [place] [address] [place] RED CELL MORPH Reviewed: see result s of individual morphologies Normal [facility] Comment on above: Order Comment: Speci men Type: BLOOD SPECIMENOrdering Facility: [facility] Address: [address] [address] Performed By: #### 5 7021-8 ####[facility] LABCLIA [id number] [address] LABCLIA [id number] [place] [address] [place] WBC (Bld) [#/Vol] 10.01 10*3/uL Normal 3.70-11.00 [facility] Comment on above: Order Comment: Speci men Type: BLOOD SPECIMENOrdering Facility: [facility] Address: [address] [place], [place] [address] Performed By: #### 5 7021-8 ####[facility] LABCLIA [id number] [address] LABCLIA [id number] [place] [address] [place] WBC Left Shift Ql (Bld) Present Normal C [facility] Comment on above: Order Comment: Speci men Type: BLOOD SPECIMENOrdering Facility: [facility] Address: [address] [place] [address] Performed By: #### 5 7021-8 ####[facility] LABCLIA [id number] [address] LABCLIA [id number] [place] [address] [place] CNOVSPon 03-07-2023 CNOVSP Normal [facility] Comprehensive metabolic 2000 panelon 03-07-2023 Albumin [Mass/Vol] 4.1 g/dL Normal 3.9-4.9 [facility] Comment on above: Order Comment: Speci men Type: BLOOD SPECIMENOrdering Facility: [facility] Address: [address] [place] [address] Performed By: #### 2 4323-8 ####[facility] LABCLIA [id number] [place] [address] [place] ALP [Catalytic activity/Vol] 39 U/L Normal 34-123 [facility] Comment on above: Order Comment: Speci men Type: BLOOD SPECIMENOrdering Facility: [facility] Address: [address] [place] [address] Performed By: #### 2 4323-8 ####[facility] LABCLIA [id number] [place] [address] [place] ALT [Catalytic activity/Vol] 15 U/L Normal 7-38 [facility] Comment on above: Order Comment: Speci men Type: BLOOD SPECIMENOrdering Facility: [facility] Address: [address] [place] [address] Performed By: #### 2 4323-8 ####[facility] LABCLIA [id number] [place] [address] [place] Anion gap [Moles/Vol] 13 mmol/L Normal 9-18 [facility] Comment on above: Order Comment: Speci men Type: BLOOD SPECIMENOrdering Facility: [facility] Address: [address] [place] [address] Performed By: #### 2 4323-8 ####[facility] LABCLIA [id number] [place] [address] [place] AST [Catalytic activity/Vol] 14 U/L Normal 13-35 [facility] Comment on above: Order Comment: Speci men Type: BLOOD SPECIMENOrdering Facility: [facility] Address: [address] Performed By: #### 2 4323-8 ####[facility] LABCLIA [id number] [place] [address] [place] Bilirubin [Mass/Vol] 0.3 mg/dL Normal 0.2-1.3 [facility] Comment on above: Order Comment: Speci men Type: BLOOD SPECIMENOrdering Facility: [facility] Address: [address] Performed By: #### 2 4323-8 ####[facility] LABCLIA [id number] [place] [address] [place] Calcium [Mass/Vol] 9.6 mg/dL Normal 8.5-10.2 [facility] Comment on above: Order Comment: Speci men Type: BLOOD SPECIMENOrdering Facility: [facility] Address: [address] Performed By: #### 2 4323-8 ####[facility] LABCLIA [id number] [place] [address] [place] Chloride [Moles/Vol] 100 mmol/L Normal 97-105 [facility] Comment on above: Order Comment: Speci men Type: BLOOD SPECIMENOrdering Facility: [facility] Address: [address] Performed By: #### 2 4323-8 ####[facility] LABCLIA [id number] [place] [address] [place] CO2 [Moles/Vol] 25 mmol/L Normal 22-30 [facility] Comment on above: Order Comment: Speci men Type: BLOOD SPECIMENOrdering Facility: [facility] Address: [address] Performed By: #### 2 4323-8 ####[facility] LABCLIA [id number] [address] [facility] Creatinine [Mass/Vol] 0.94 mg/dL Normal 0.58-0.96 [facility] Comment on above: Order Comment: Kurt barraza Type: BLOOD SPECIMENOrdering Facility: [facility] Address: [address] [address] Performed By: #### 2 4323-8 ####[facility] LABIA [id number] [address] Creatinine and Glomerular filtration rate.predicted panel (S/P/Bld) 61 mL/min/1.73m??? Normal >=60 [facility] Comment on above: Order Comment: Kurt barraza Type: BLOOD SPECIMENOrdering Facility: [facility] Address: [address] [place] [address] Result Comment: Kim mated Glomerular Filtration Rate (eGFR) is calculated using the 2020 CKD-EPI creatinine equation. This equation utilizes serum creatinine, sex, and age as parameters. The creatinine assay has traceable calibration to isotope dilution-mass spectrometry. Refer to KDIGO guidelines for clinical interpretation. In patients with unstable renal function, e.g. those with acute kidney injury, the eGFR may not accurately reflect actual GFR. Performed By: #### 2 4323-8 ####[facility] LABIA [id number] [address] [place] Glucose [Mass/Vol] 139 mg/dL High 74-99 [facility] Comment on above: Order Comment: Kurt barraza Type: BLOOD SPECIMENOrdering Facility: [facility] Address: [address] [address] Result Comment: The [place] Diabetes Association (ADA) provides guidance for cutoff values for fasting glucose and random glucose. The ADA defines fasting as no caloric intake for at least 8 hours. Fasting plasma glucose results between 100 to 125 mg/dL indicate increased risk for diabetes (prediabetes).Fasting plasma glucose results greater than or equal to 126 mg/dL meet the criteria for diagnosis of diabetes. In the absence of unequivocal hyperglycemia, results should be confirmed by repeat testing. In a patient with classic symptoms of hyperglycemia or hyperglycemic crisis, random plasma glucose results greater than or equal to 200 mg/dL meet the criteria for diagnosis of diabetes.Reference: Standards of Medical Care in Diabetes 2016, [place] Diabetes Association. Diabetes Care. 2016.39(Suppl 1). Performed By: #### 2 4323-8 ####[facility] LABCLIA [id number] [place] [address] [place] Potassium [Moles/Vol] 4.2 mmol/L Normal 3.7-5.1 [facility] Comment on above: Order Comment: Speci men Type: BLOOD SPECIMENOrdering Facility: [facility] Address: [address] [address] Performed By: #### 2 4323-8 ####[facility] LABIA [id number] [place] [address] [place] Protein [Mass/Vol] 6.1 g/dL Low 6.3-8.0 [facility] Comment on above: Order Comment: Speci men Type: BLOOD SPECIMENOrdering Facility: [facility] Address: [address] [address] Performed By: #### 2 4323-8 ####[facility] LABIA [id number] [place] [address] [place] Sodium [Moles/Vol] 138 mmol/L Normal 136-144 [facility] Comment on above: Order Comment: Speci men Type: BLOOD SPECIMENOrdering Facility: [facility] Address: [address] Performed By: #### 2 4323-8 ####[facility] LABIA [id number] [place] [address] [place] Urea nitrogen [Mass/Vol] 37 mg/dL High 7-21 [facility] Comment on above: Order Comment: Speci men Type: BLOOD SPECIMENOrdering Facility: [facility] Address: [address] Performed By: #### 2 4323-8 ####[facility] LABCLIA [id number] [place] [id number] [facility] ALLIED HEALTHon 02-23-2023 ALLIED HEALTH HNO ID: [id number] Author: Tatiana Hill RT(R) Service: Radiology Author Type: Technologist Type: Allied Health Filed: 02/23/2023 12:06 PM Note Text: Radiology Service Progress Note DATE OF SERVICE: February 23, 2023 TIME: 11:48 AM PATIENT IDENTITY VERIFICATION COMPLETED USING TWO (2) STANDARD IDENTIFIERS: Name and Date of confirmed by patient verbally and Name and Date of confirmed by identification band. FALL SCREENING: Has the patient had 2 falls in the last year or 1 fall with injury or currently using an Ambulatory Assistive Device (Walker, Cane, Wheelchair, Crutches, etc.)? Yes, Patient High Risk for Falls What interventions were put in place to prevent falls during this visit? [place] Risk Wristband Applied, Instructed Patient to Call for Help if Needed, Offered Assistance with Transfers/Clothing, Instructed Patient to Remain Seated (Not on Exam Table) Until Exam, and Increased Observations by Caregivers PATIENT GENDER DATA: Female. status: : No status: NO. PATIENT RELEVANT IMPLANT DATA REVIEWED: Yes ALLERGIES: Reviewed and unchanged CONTRAST ALLERGY: NO. EXAM: MRI - CONTRAST TYPE: GROUP II PERIPHERAL IV DATA: Ambulatory: A peripheral IV was started in the Right with a Butterfly: 23 gauge. RADIOLOGY DEPARTMENT: MR; Exam(s) Completed: Head: Routine Brain SIGNATURE: RT Jonnie(R), RT Lubna(R) PATIENT NAME: Marilin Mae DATE: February 23, 2023 TIME: 11:48 AM [facility] MRI BRAIN WO/W IVCONon 02-23 MRI BRAIN WO/W IVCON * * *Final Report* * * DATE OF EXAM: Feb 23 2023 12:06PM [facility] 0295 - MRI BRAIN WO/W IVCON / PROCEDURE REASON: Glioblastoma multiforme (HCC) * * * * Physician Interpretation * * * * EXAMINATION: MRI BRAIN WO/W IVCON HISTORY: Glioblastoma multiforme (HCC). TECHNIQUE: Multi-planar multi-sequence MR images were obtained through the brain both pre-and post intravenous contrast administration. MQ: MRBWOW_2 Contrast: 14 mL Dotarem IV COMPARISON: MRI brain dated 12/08/2022. RESULT: Right parietal craniotomy is again seen with resection cavity in the right frontal region with peripheral thick linear enhancement. More confluent patchy enhancement in the right high parietal region has overall decreased in extent compared to the prior MRI dated 12/08/2022. Also, FLAIR hyperintense presumed left products within the right parietal resection cavity have evolved since the prior exam. Confluent T2 and FLAIR hyperintensity involving the right posterior frontal lobe and right parietal lobe appears similar in extent. Bilateral deep and periventricular confluent T2 and FLAIR hyperintensity has mildly progressed, perhaps representing posttreatment changes and/or chronic microvascular ischemic changes. Areas of susceptibility seen along the margins of the right parietal resection cavity compatible with old hemorrhagic products. Ventricles are unchanged in size and configuration. No significant ventricular enlargement or midline shift. No evidence of acute hemorrhage on sequences obtained. Trace ethmoid sinus mucosal thickening is seen. No evidence of acute infarct. IMPRESSION: Small area of patchy/confluent enhancement in the right parietal region which has decreased in extent since 12/08/2022. Right parietal resection cavity with thick peripheral linear enhancement seen. Stable extent confluent T2 and FLAIR hyperintensity in the right posterior frontal and parietal regions. Increased extent of bilateral confluent T2 and FLAIR hyperintensity involving the deep and periventricular white matter, perhaps chronic microvascular ischemic changes and/or posttreatment changes. Susceptibility/old hemorrhagic products along the margins of the right parietal resection cavity. Framing [facility] Transcribe Date/Time: Feb 23 2023 12:27P Dictated by : JOSH WOLF MD This examination was interpreted and the report reviewed and electronically signed by: JOSH WOLF MD on Feb 23 2023 12:37PM EST [id number] Normal [facility] CNOVSPon 02-07-2023 CNOVSP Normal [facility] CBC W Auto Differential pane l (Bld)on 01-09-2023 Anisocytosis Ql (Bld) Present Normal [facility] Comment on above: Order Comment: Speci men Type: BLOOD SPECIMENOrdering Facility: [facility] Address: [address] [place] [address] [place] [address] Performed By: #### 5 7021-8 ####[facility] LABCLIA [id number] [address] LABCLIA [id number] [place] [address] [place] Basophils (Bld) [#/Vol] 0.00 10*3/uL Normal <0.11 [facility] Comment on above: Order Comment: Speci men Type: BLOOD SPECIMENOrdering Facility: [facility] Address: [address] Performed By: #### 5 7021-8 ####[facility] LABCLIA [id number] [address] LABCLIA [id number] [place] [address] [place] Basophils/100 WBC (Bld) 0.0 % Normal [facility] Comment on above: Order Comment: Speci men Type: BLOOD SPECIMENOrdering Facility: [facility] Address: [address] Performed By: #### 5 7021-8 ####[facility] LABCLIA [id number] [address] LABCLIA [id number] [place] [address] [place] Differential cell count method Nom (Bld) Manual Normal [facility] Comment on above: Order Comment: Speci men Type: BLOOD SPECIMENOrdering Facility: [facility] Address: [address] [place] [address] Performed By: #### 5 7021-8 ####[facility] LABCLIA [id number] [address] LABCLIA [id number] [place] [address] [place] Eosinophils (Bld) [#/Vol] 0.00 10*3/uL Normal <0.46 [facility] Comment on above: Order Comment: Speci men Type: BLOOD SPECIMENOrdering Facility: [facility] Address: [address] [place] [address] Performed By: #### 5 7021-8 ####[facility] LABCLIA [id number] [address] LABCLIA [id number] [place] [address] [place] Eosinophils/100 WBC (Bld) 0.0 % Normal [facility] Comment on above: Order Comment: Speci men Type: BLOOD SPECIMENOrdering Facility: [facility] Address: [address] [place] [address] Performed By: #### 5 7021-8 ####[facility] LABCLIA [id number] [address] LABCLIA [id number] [place] [address] [place] Erythrocyte distribution width (RBC) [Ratio] 17.1 % High 11.5-15.0 [facility] Comment on above: Order Comment: Speci men Type: BLOOD SPECIMENOrdering Facility: [facility] Address: [address] [place] [address] Performed By: #### 5 7021-8 ####[facility] LABCLIA [id number] [address] LABCLIA [id number] [place] [address] [place] Hematocrit (Bld) [Volume fraction] 31.3 % Low 36.0-46.0 [facility] Comment on above: Order Comment: Speci men Type: BLOOD SPECIMENOrdering Facility: [facility] Address: [address] [place] [address] Performed By: #### 5 7021-8 ####[facility] LABCLIA [id number] [place] [id number] LABCLIA [id number] [place] [address] [place] Hemoglobin (Bld) [Mass/Vol] 10.4 g/dL Low 11.5-15.5 [facility] Comment on above: Order Comment: Speci men Type: BLOOD SPECIMENOrdering Facility: [facility] Address: [address] [place] [address] Performed By: #### 5 7021-8 ####[facility] LABCLIA [id number] [address] LABCLIA [id number] [place] [address] [place] Lymphocytes (Bld) [#/Vol] 0.27 10*3/uL Low 1.00-4.00 [facility] Comment on above: Order Comment: Speci men Type: BLOOD SPECIMENOrdering Facility: [facility] Address: [address] [place] [address] Performed By: #### 5 7021-8 ####[facility] LABCLIA [id number] [address] LABCLIA [id number] [place] [address] [place] Lymphocytes/100 WBC (Bld) 2.7 % Normal [facility] Comment on above: Order Comment: Speci men Type: BLOOD SPECIMENOrdering Facility: [facility] Address: [address] [place], [place] [address] Performed By: #### 5 7021-8 ####[facility] LABCLIA [id number] [address] LABCLIA [id number] [place] [address] [place] MCH (RBC) [Entitic mass] 30.6 pg Normal 26.0-34.0 [facility] Comment on above: Order Comment: Speci men Type: BLOOD SPECIMENOrdering Facility: [facility] Address: [address] [place] [address] Performed By: #### 5 7021-8 ####[facility] LABCLIA [id number] [address] LABCLIA [id number] [place] [address] [place] MCHC (RBC) [Mass/Vol] 33.2 g/dL Normal 30.5-36.0 [facility] Comment on above: Order Comment: Speci men Type: BLOOD SPECIMENOrdering Facility: [facility] Address: [address] [place] [address] Performed By: #### 5 7021-8 ####[facility] LABCLIA [id number] [address] LABCLIA [id number] [place] [address] [place] MCV (RBC) [Entitic vol] 92.1 fL Normal 80.0-100.0 C [facility] Comment on above: Order Comment: Speci men Type: BLOOD SPECIMENOrdering Facility: [facility] Address: [address] [place], [place] [address] Performed By: #### 5 7021-8 ####[facility] LABCLIA [id number] [address] LABCLIA [id number] [place] [address] [place] Monocytes (Bld) [#/Vol] 0.09 10*3/uL Normal <0.87 [facility] Comment on above: Order Comment: Speci men Type: BLOOD SPECIMENOrdering Facility: [facility] Address: [address] [place], [place] [address] Performed By: #### 5 7021-8 ####[facility] LABCLIA [id number] [address] LABCLIA [id number] [place] [address] [place] Monocytes/100 WBC (Bld) 0.9 % Normal [facility] Comment on above: Order Comment: Speci men Type: BLOOD SPECIMENOrdering Facility: [facility] Address: [address] [place] [address] Performed By: #### 5 7021-8 ####[facility] LABCLIA [id number] [address] LABCLIA [id number] [place] [address] [place] MYELO% 1.8 % Normal [facility] Comment on above: Order Comment: Speci men Type: BLOOD SPECIMENOrdering Facility: [facility] Address: [address] [place] [address] Performed By: #### 5 7021-8 ####[facility] LABCLIA [id number] [address] LABCLIA [id number] [place] [address] [place] Neutrophils (Bld) [#/Vol] 9.33 10*3/uL High 1.45-7.50 [facility] Comment on above: Order Comment: Speci men Type: BLOOD SPECIMENOrdering Facility: [facility] Address: [address] [place], [place] [address] Performed By: #### 5 7021-8 ####[facility] LABCLIA [id number] [address] LABCLIA [id number] [place] [address] [place] Neutrophils/100 WBC (Bld) 94.6 % Normal [facility] Comment on above: Order Comment: Speci men Type: BLOOD SPECIMENOrdering Facility: [facility] Address: [address] [address] Performed By: #### 5 7021-8 ####[facility] LABCLIA [id number] [address] LABCLIA [id number] [place] [address] [place] Nucleated RBC (Bld) [#/Vol] 0.09 10*3/uL High <0.01 [facility] Comment on above: Order Comment: Speci men Type: BLOOD SPECIMENOrdering Facility: [facility] Address: [address] [place] [address] Performed By: #### 5 7021-8 ####[facility] LABCLIA [id number] [address] LABCLIA [id number] [place] [address] [place] Nucleated RBC/100 WBC (Bld) [Ratio] 0.9 /100 WBC Normal [facility] Comment on above: Order Comment: Speci men Type: BLOOD SPECIMENOrdering Facility: [facility] Address: [address] [place] [address] Performed By: #### 5 7021-8 ####[facility] LABCLIA [id number] [address] LABCLIA [id number] [place] [address] [place] Ovalocytes LM Ql (Bld) Few Normal [facility] Comment on above: Order Comment: Speci men Type: BLOOD SPECIMENOrdering Facility: [facility] Address: [address] [place] [address] Performed By: #### 5 7021-8 ####[facility] LABCLIA [id number] [address] [facility] LABCLIA [id number] [place] [address] [place] Platelet mean volume (Bld) [Entitic vol] 10.1 fL Normal 9.0-12.7 [facility] Comment on above: Order Comment: Speci men Type: BLOOD SPECIMENOrdering Facility: [facility] Address: [address] [place] [address] Performed By: #### 5 7021-8 ####[facility] LABCLIA [id number] [address] LABCLIA [id number] [place] [address] [place] Platelets (Bld) [#/Vol] 231 10*3/uL Normal 150-400 [facility] Comment on above: Order Comment: Speci men Type: BLOOD SPECIMENOrdering Facility: [facility] Address: [address] [place] [address] Performed By: #### 5 7021-8 ####[facility] LABCLIA [id number] [address] LABCLIA [id number] [place] [address] [place] Platelets Estimate (Bld) [#/Vol] Adequate Normal [facility] Comment on above: Order Comment: Speci men Type: BLOOD SPECIMENOrdering Facility: [facility] Address: [address] [place], [place] [address] Performed By: #### 5 7021-8 ####[facility] LABCLIA [id number] [address] LABCLIA [id number] [place] [address] [place] RBC (Bld) [#/Vol] 3.40 10*6/uL Low 3.90-5.20 [facility] Comment on above: Order Comment: Speci men Type: BLOOD SPECIMENOrdering Facility: [facility] Address: [address] [place] [address] Performed By: #### 5 7021-8 ####[facility] LABCLIA [id number] [place] [id number] LABCLIA [id number] [place] [address] [place] RED CELL MORPH Reviewed: see result s of individual morphologies Normal [facility] Comment on above: Order Comment: Speci men Type: BLOOD SPECIMENOrdering Facility: [facility] Address: [address] [place] [address] Performed By: #### 5 7021-8 ####[facility] LABCLIA [id number] [address] LABCLIA [id number] [place] [address] [place] WBC (Bld) [#/Vol] 9.86 10*3/uL Normal 3.70-11.00 [facility] Comment on above: Order Comment: Speci men Type: BLOOD SPECIMENOrdering Facility: [facility] Address: [address] [place] [address] Performed By: #### 5 7021-8 ####[facility] LABCLIA [id number] [place] [id number] LABCLIA [id number] [place] [address] [place] WBC Left Shift Ql (Bld) Present Normal C [facility] Comment on above: Order Comment: Speci men Type: BLOOD SPECIMENOrdering Facility: [facility] Address: [address] [place] [address] Performed By: #### 5 7021-8 ####[facility] LABCLIA [id number] [address] LABCLIA [id number] [place] [id number] [id number] [place] CNOVSPon 01-09-2023 CNOVSP Normal [facility] Comprehensive metabolic 2000 panelon 01-09-2023 Albumin [Mass/Vol] 3.8 g/dL Low 3.9-4.9 [facility] Comment on above: Order Comment: Speci men Type: BLOOD SPECIMENOrdering Facility: [facility] Address: [address] [place] [address] Performed By: #### 2 4323-8 ####[facility] LABCLIA [id number] [place] [address] ALP [Catalytic activity/Vol] 60 U/L Normal 34-123 [facility] Comment on above: Order Comment: Speci men Type: BLOOD SPECIMENOrdering Facility: [facility] Address: [address] [place] [address] Performed By: #### 2 4323-8 ####[facility] LABCLIA [id number] [place] [address] ALT [Catalytic activity/Vol] 16 U/L Normal 7-38 [facility] Comment on above: Order Comment: Speci men Type: BLOOD SPECIMENOrdering Facility: [facility] Address: [address] [place] [address] Performed By: #### 2 4323-8 ####[facility] LABCLIA [id number] [place] [address] Anion gap [Moles/Vol] 12 mmol/L Normal 9-18 [facility] Comment on above: Order Comment: Speci men Type: BLOOD SPECIMENOrdering Facility: [facility] Address: [address] [place] [address] Performed By: #### 2 4323-8 ####[facility] LABCLIA [id number] [place] [address] AST [Catalytic activity/Vol] 12 U/L Low 13-35 [facility] Comment on above: Order Comment: Speci men Type: BLOOD SPECIMENOrdering Facility: [facility] Address: [address] [address] Performed By: #### 2 4323-8 ####[facility] LABCLIA [id number] [place] [address] Bilirubin [Mass/Vol] 0.6 mg/dL Normal 0.2-1.3 [facility] Comment on above: Order Comment: Speci men Type: BLOOD SPECIMENOrdering Facility: [facility] Address: [address] [address] Performed By: #### 2 4323-8 ####[facility] LABCLIA [id number] [place] [address] Calcium [Mass/Vol] 10.0 mg/dL Normal 8.5-10.2 [facility] Comment on above: Order Comment: Speci men Type: BLOOD SPECIMENOrdering Facility: [facility] Address: [address] [place] [address] Performed By: #### 2 4323-8 ####[facility] LABCLIA [id number] [place] [address] Chloride [Moles/Vol] 101 mmol/L Normal 97-105 [facility] Comment on above: Order Comment: Speci men Type: BLOOD SPECIMENOrdering Facility: [facility] Address: [address] [place] [address] Performed By: #### 2 4323-8 ####[facility] LABCLIA [id number] [place] [address] CO2 [Moles/Vol] 26 mmol/L Normal 22-30 [facility] Comment on above: Order Comment: Speci men Type: BLOOD SPECIMENOrdering Facility: [facility] Address: [address] [place] [address] Performed By: #### 2 4323-8 ####[facility] LABCLIA [id number] [place] [address] Creatinine [Mass/Vol] 0.80 mg/dL Normal 0.58-0.96 [facility] Comment on above: Order Comment: Kurt barraza Type: BLOOD SPECIMENOrdering Facility: [facility] Address: [address] [address] Performed By: #### 2 4323-8 ####[facility] LABIA [id number] [place] [address] ESTIMATED GLOMERULAR FILTRATION RATE 75 mL/min/1.73m??? Normal >=60 [facility] Comment on above: Order Comment: Kurt barraza Type: BLOOD SPECIMENOrdering Facility: [facility] Address: [address] [place] [address] Result Comment: Kim mated Glomerular Filtration Rate (eGFR) is calculated using the 2020 CKD-EPI creatinine equation. This equation utilizes serum creatinine, sex, and age as parameters. The creatinine assay has traceable calibration to isotope dilution-mass spectrometry. Refer to KDIGO guidelines for clinical interpretation. In patients with unstable renal function, e.g. those with acute kidney injury, the eGFR may not accurately reflect actual GFR. Performed By: #### 2 4323-8 ####[facility] LABIA [id number] [place] [address] Glucose [Mass/Vol] 161 mg/dL High 74-99 [facility] Comment on above: Order Comment: Kurt barraza Type: BLOOD SPECIMENOrdering Facility: [facility] Address: [address] [place] [address] Result Comment: The [place] Diabetes Association (ADA) provides guidance for cutoff values for fasting glucose and random glucose. The ADA defines fasting as no caloric intake for at least 8 hours. Fasting plasma glucose results between 100 to 125 mg/dL indicate increased risk for diabetes (prediabetes).Fasting plasma glucose results greater than or equal to 126 mg/dL meet the criteria for diagnosis of diabetes. In the absence of unequivocal hyperglycemia, results should be confirmed by repeat testing. In a patient with classic symptoms of hyperglycemia or hyperglycemic crisis, random plasma glucose results greater than or equal to 200 mg/dL meet the criteria for diagnosis of diabetes.Reference: Standards of Medical Care in Diabetes 2016, [place] [employer]. Diabetes Care. 2016.39(Suppl 1). Performed By: #### 2 4323-8 ####[facility] LABCLIA [id number] [place] [address] Potassium [Moles/Vol] 3.4 mmol/L Low 3.7-5.1 [facility] Comment on above: Order Comment: Speci men Type: BLOOD SPECIMENOrdering Facility: [facility] Address: [address] [address] Performed By: #### 2 4323-8 ####[facility] LABCLIA [id number] [place] [address] Protein [Mass/Vol] 6.1 g/dL Low 6.3-8.0 [facility] Comment on above: Order Comment: Speci men Type: BLOOD SPECIMENOrdering Facility: [facility] Address: [address] [address] Performed By: #### 2 4323-8 ####[facility] LABCLIA [id number] [place] [address] Sodium [Moles/Vol] 139 mmol/L Normal 136-144 [facility] Comment on above: Order Comment: Speci men Type: BLOOD SPECIMENOrdering Facility: [facility] Address: [address] [address] Performed By: #### 2 4323-8 ####[facility] LABCLIA [id number] [place] [address] Urea nitrogen [Mass/Vol] 47 mg/dL High 7-21 [facility] Comment on above: Order Comment: Speci men Type: BLOOD SPECIMENOrdering Facility: [facility] Address: [address] [address] Performed By: #### 2 4323-8 ####[facility] LABCLIA [id number] [place] [address] CBC W Auto Differential pane l (Bld)on 12-20-2022 Anisocytosis Ql (Bld) Present Normal [facility] Comment on above: Order Comment: Speci men Type: BLOOD SPECIMENOrdering Facility: [facility] Address: [address] [place] [address] Performed By: #### 5 7021-8 ####[facility] LABCLIA [id number] [address] LABCLIA [id number] [place] [address] [place] Basophils (Bld) [#/Vol] 0.00 10*3/uL Normal <0.11 [facility] Comment on above: Order Comment: Speci men Type: BLOOD SPECIMENOrdering Facility: [facility] Address: [address] [place] [address] Performed By: #### 5 7021-8 ####[facility] LABCLIA [id number] [address] LABCLIA [id number] [place] [address] [place] Basophils/100 WBC (Bld) 0.0 % Normal [facility] Comment on above: Order Comment: Speci men Type: BLOOD SPECIMENOrdering Facility: [facility] Address: [address] [place], [place] [address] Performed By: #### 5 7021-8 ####[facility] LABCLIA [id number] [address] LABCLIA [id number] [place] [address] [place] Differential cell count method Nom (Bld) Manual Normal [facility] Comment on above: Order Comment: Speci men Type: BLOOD SPECIMENOrdering Facility: [facility] Address: [address] [place] [address] Performed By: #### 5 7021-8 ####[facility] LABCLIA [id number] [address] LABCLIA [id number] [place] [address] [place] Eosinophils (Bld) [#/Vol] 0.00 10*3/uL Normal <0.46 [facility] Comment on above: Order Comment: Speci men Type: BLOOD SPECIMENOrdering Facility: [facility] Address: [address] [place] [address] Performed By: #### 5 7021-8 ####[facility] LABCLIA [id number] [address] LABCLIA [id number] [place] [address] [place] Eosinophils/100 WBC (Bld) 0.0 % Normal [facility] Comment on above: Order Comment: Speci men Type: BLOOD SPECIMENOrdering Facility: [facility] Address: [address] [place], [place] [address] Performed By: #### 5 7021-8 ####[facility] LABCLIA [id number] [address] LABCLIA [id number] [place] [address] [place] Erythrocyte distribution width (RBC) [Ratio] 15.5 % High 11.5-15.0 [facility] Comment on above: Order Comment: Speci men Type: BLOOD SPECIMENOrdering Facility: [facility] Address: [address] Performed By: #### 5 7021-8 ####[facility] LABCLIA [id number] [address] LABCLIA [id number] [place] [address] [place] Hematocrit (Bld) [Volume fraction] 35.0 % Low 36.0-46.0 [facility] Comment on above: Order Comment: Speci men Type: BLOOD SPECIMENOrdering Facility: [facility] Address: [address] [place] [address] Performed By: #### 5 7021-8 ####[facility] LABCLIA [id number] [address] LABCLIA [id number] [place] [address] [place] Hemoglobin (Bld) [Mass/Vol] 11.7 g/dL Normal 11.5-15.5 [facility] Comment on above: Order Comment: Speci men Type: BLOOD SPECIMENOrdering Facility: [facility] Address: [address] [place] [address] Performed By: #### 5 7021-8 ####[facility] LABCLIA [id number] [address] LABCLIA [id number] [place] [address] [place] Lymphocytes (Bld) [#/Vol] 0.31 10*3/uL Low 1.00-4.00 [facility] Comment on above: Order Comment: Speci men Type: BLOOD SPECIMENOrdering Facility: [facility] Address: [address] [place] [address] Performed By: #### 5 7021-8 ####[facility] LABCLIA [id number] [address] LABCLIA [id number] [place] [address] [place] Lymphocytes/100 WBC (Bld) 3.0 % Normal [facility] Comment on above: Order Comment: Speci men Type: BLOOD SPECIMENOrdering Facility: [facility] Address: [address] [place] [address] Performed By: #### 5 7021-8 ####[facility] LABCLIA [id number] [address] [address] LABCLIA [id number] [place] [address] [place] MCH (RBC) [Entitic mass] 30.2 pg Normal 26.0-34.0 [facility] Comment on above: Order Comment: Speci men Type: BLOOD SPECIMENOrdering Facility: [facility] Address: [address] [place] [address] Performed By: #### 5 7021-8 ####[facility] LABCLIA [id number] [address] LABCLIA [id number] [place] [address] [place] MCHC (RBC) [Mass/Vol] 33.4 g/dL Normal 30.5-36.0 [facility] Comment on above: Order Comment: Speci men Type: BLOOD SPECIMENOrdering Facility: [facility] Address: [address] [place] [address] Performed By: #### 5 7021-8 ####[facility] LABCLIA [id number] [address] LABCLIA [id number] [place] [address] [place] MCV (RBC) [Entitic vol] 90.2 fL Normal 80.0-100.0 [facility] Comment on above: Order Comment: Speci men Type: BLOOD SPECIMENOrdering Facility: [facility] Address: [address] [place], [place] [address] Performed By: #### 5 7021-8 ####[facility] LABCLIA [id number] [address] LABCLIA [id number] [place] [address] [place] Monocytes (Bld) [#/Vol] 0.41 10*3/uL Normal <0.87 [facility] Comment on above: Order Comment: Speci men Type: BLOOD SPECIMENOrdering Facility: [facility] Address: [address] [place] [address] Performed By: #### 5 7021-8 ####[facility] LABCLIA [id number] [address] LABCLIA [id number] [place] [address] [place] Monocytes/100 WBC (Bld) 4.0 % Normal [facility] Comment on above: Order Comment: Speci men Type: BLOOD SPECIMENOrdering Facility: [facility] Address: [address] [place] [address] Performed By: #### 5 7021-8 ####[facility] LABCLIA [id number] [address] LABCLIA [id number] [place] [address] [place] Neutrophils (Bld) [#/Vol] 9.50 10*3/uL High 1.45-7.50 [facility] Comment on above: Order Comment: Speci men Type: BLOOD SPECIMENOrdering Facility: [facility] Address: [address] [place], [place] [address] Performed By: #### 5 7021-8 ####[facility] LABCLIA [id number] [address] LABCLIA [id number] [place] [address] [place] Neutrophils/100 WBC (Bld) 93.0 % Normal [facility] Comment on above: Order Comment: Speci men Type: BLOOD SPECIMENOrdering Facility: [facility] Address: [address] [place], [place] [address] Performed By: #### 5 7021-8 ####[facility] LABCLIA [id number] [address] LABCLIA [id number] [place] [address] [place] Nucleated RBC (Bld) [#/Vol] 10*3/uL Normal <0.01 [facility] Comment on above: Order Comment: Speci men Type: BLOOD SPECIMENOrdering Facility: [facility] Address: [address] [place] [address] Performed By: #### 5 7021-8 ####[facility] LABCLIA [id number] [address] LABCLIA [id number] [place] [address] [place] Nucleated RBC/100 WBC (Bld) [Ratio] 0.0 /100 WBC Normal [facility] Comment on above: Order Comment: Speci men Type: BLOOD SPECIMENOrdering Facility: [facility] Address: [address] [place] [address] Performed By: #### 5 7021-8 ####[facility] LABCLIA [id number] [address] LABCLIA [id number] [place] [address] [place] Ovalocytes LM Ql (Bld) Few Normal [facility] Comment on above: Order Comment: Speci men Type: BLOOD SPECIMENOrdering Facility: [facility] Address: [address] [place] [address] Performed By: #### 5 7021-8 ####[facility] LABCLIA [id number] [address] LABCLIA [id number] [place] [address] [place] Platelet mean volume (Bld) [Entitic vol] 10.5 fL Normal 9.0-12.7 [facility] Comment on above: Order Comment: Speci men Type: BLOOD SPECIMENOrdering Facility: [facility] Address: [address] [place] [address] Performed By: #### 5 7021-8 ####[facility] LABCLIA [id number] [address] LABCLIA [id number] [place] [address] [place] Platelets (Bld) [#/Vol] 151 10*3/uL Normal 150-400 [facility] Comment on above: Order Comment: Speci men Type: BLOOD SPECIMENOrdering Facility: [facility] Address: [address] [place] [address] Performed By: #### 5 7021-8 ####[facility] LABCLIA [id number] [address] LABCLIA [id number] [place] [address] [place] Platelets Estimate (Bld) [#/Vol] Adequate Normal [facility] Comment on above: Order Comment: Speci men Type: BLOOD SPECIMENOrdering Facility: [facility] Address: [address] [place] [address] Performed By: #### 5 7021-8 ####[facility] LABCLIA [id number] [address] LABCLIA [id number] [place] [address] [place] Polychromasia LM Ql (Bld) Slight Normal [facility] Comment on above: Order Comment: Speci men Type: BLOOD SPECIMENOrdering Facility: [facility] Address: [address] [place] [address] Performed By: #### 5 7021-8 ####[facility] LABCLIA [id number] [address] LABCLIA [id number] [place] [address] [place] RBC (Bld) [#/Vol] 3.88 10*6/uL Low 3.90-5.20 [facility] Comment on above: Order Comment: Speci men Type: BLOOD SPECIMENOrdering Facility: [facility] Address: [address] [place] [address] Performed By: #### 5 7021-8 ####[facility] LABCLIA [id number] [address] LABCLIA [id number] [place] [address] [place] RED CELL MORPH Reviewed: see result s of individual morphologies Normal [facility] Comment on above: Order Comment: Speci men Type: BLOOD SPECIMENOrdering Facility: [facility] Address: [address] [place] [address] Performed By: #### 5 7021-8 ####[facility] LABCLIA [id number] [address] LABCLIA [id number] [place] [address] [place] WBC (Bld) [#/Vol] 10.21 10*3/uL Normal 3.70-11.00 [facility] Comment on above: Order Comment: Speci men Type: BLOOD SPECIMENOrdering Facility: [facility] Address: [address] [place], [place] [address] Performed By: #### 5 7021-8 ####[facility] LABCLIA [id number] [address] LABCLIA [id number] [place] [address] [place] CNOVSPon 12-20-2022 CNOVSP Normal [facility] Comprehensive metabolic 2000 panelon 12-20-2022 Albumin [Mass/Vol] 4.0 g/dL Normal 3.9-4.9 [facility] Comment on above: Order Comment: Speci men Type: BLOOD SPECIMENOrdering Facility: [facility] Address: [address] [address] Performed By: #### 2 4323-8 ####[facility] LABCLIA [id number] [place] [address] ALP [Catalytic activity/Vol] 48 U/L Normal 34-123 [facility] Comment on above: Order Comment: Speci men Type: BLOOD SPECIMENOrdering Facility: [facility] Address: [address] [address] Performed By: #### 2 4323-8 ####[facility] LABCLIA [id number] [place] [address] ALT [Catalytic activity/Vol] 21 U/L Normal 7-38 [facility] Comment on above: Order Comment: Speci men Type: BLOOD SPECIMENOrdering Facility: [facility] Address: [address] [address] Performed By: #### 2 4323-8 ####[facility] LABCLIA [id number] [place] [address] Anion gap [Moles/Vol] 9 mmol/L Normal 9-18 [facility] Comment on above: Order Comment: Speci men Type: BLOOD SPECIMENOrdering Facility: [facility] Address: [address] [address] Performed By: #### 2 4323-8 ####[facility] LABCLIA [id number] [place] [address] AST [Catalytic activity/Vol] 16 U/L Normal 13-35 [facility] Comment on above: Order Comment: Speci men Type: BLOOD SPECIMENOrdering Facility: [facility] Address: [address] [address] Performed By: #### 2 4323-8 ####[facility] LABCLIA [id number] [place] [address] Bilirubin [Mass/Vol] 0.6 mg/dL Normal 0.2-1.3 [facility] Comment on above: Order Comment: Speci men Type: BLOOD SPECIMENOrdering Facility: [facility] Address: [address] [place] [address] Performed By: #### 2 4323-8 ####[facility] LABCLIA [id number] [place] [address] Calcium [Mass/Vol] 9.8 mg/dL Normal 8.5-10.2 [facility] Comment on above: Order Comment: Speci men Type: BLOOD SPECIMENOrdering Facility: [facility] Address: [address] [place] [address] Performed By: #### 2 4323-8 ####[facility] LABCLIA [id number] [place] [address] Chloride [Moles/Vol] 101 mmol/L Normal 97-105 [facility] Comment on above: Order Comment: Speci men Type: BLOOD SPECIMENOrdering Facility: [facility] Address: [address] [place] [address] Performed By: #### 2 4323-8 ####[facility] LABCLIA [id number] [place] [address] CO2 [Moles/Vol] 27 mmol/L Normal 22-30 [facility] Comment on above: Order Comment: Speci men Type: BLOOD SPECIMENOrdering Facility: [facility] Address: [address] [place] [address] Performed By: #### 2 4323-8 ####[facility] LABCLIA [id number] [place] [address] Creatinine [Mass/Vol] 0.79 mg/dL Normal 0.58-0.96 [facility] Comment on above: Order Comment: Speci men Type: BLOOD SPECIMENOrdering Facility: [facility] Address: [facility] [address] [address] Performed By: #### 2 4323-8 ####[facility] LABCLIA [id number] [place] [address] ESTIMATED GLOMERULAR FILTRATION RATE 76 mL/min/1.73m??? Normal >=60 [facility] Comment on above: Order Comment: Kurt barraza Type: BLOOD SPECIMENOrdering Facility: [facility] Address: [address] [place] [address] Result Comment: Kim mated Glomerular Filtration Rate (eGFR) is calculated using the 2020 CKD-EPI creatinine equation. This equation utilizes serum creatinine, sex, and age as parameters. The creatinine assay has traceable calibration to isotope dilution-mass spectrometry. Refer to KDIGO guidelines for clinical interpretation. In patients with unstable renal function, e.g. those with acute kidney injury, the eGFR may not accurately reflect actual GFR. Performed By: #### 2 4323-8 ####[facility] LABCLIA [id number] [place] [address] Glucose [Mass/Vol] 118 mg/dL High 74-99 [facility] Comment on above: Order Comment: Kurt barraza Type: BLOOD SPECIMENOrdering Facility: [facility] Address: [address] [place] [address] Result Comment: The [place] Diabetes [employer] (ADA) provides guidance for cutoff values for fasting glucose and random glucose. The ADA defines fasting as no caloric intake for at least 8 hours. Fasting plasma glucose results between 100 to 125 mg/dL indicate increased risk for diabetes (prediabetes).Fasting plasma glucose results greater than or equal to 126 mg/dL meet the criteria for diagnosis of diabetes. In the absence of unequivocal hyperglycemia, results should be confirmed by repeat testing. In a patient with classic symptoms of hyperglycemia or hyperglycemic crisis, random plasma glucose results greater than or equal to 200 mg/dL meet the criteria for diagnosis of diabetes.Reference: Standards of Medical Care in Diabetes 2016, [place] [employer]. Diabetes Care. 2016.39(Suppl 1). Performed By: #### 2 4323-8 ####[facility] LABCLIA [id number] [place] [address] Potassium [Moles/Vol] 4.1 mmol/L Normal 3.7-5.1 [facility] Comment on above: Order Comment: Speci men Type: BLOOD SPECIMENOrdering Facility: [facility] Address: [address] [place] [address] Performed By: #### 2 4323-8 ####[facility] LABCLIA [id number] [place] [address] Protein [Mass/Vol] 6.3 g/dL Normal 6.3-8.0 [facility] Comment on above: Order Comment: Speci men Type: BLOOD SPECIMENOrdering Facility: [facility] Address: [address] [place] [address] Performed By: #### 2 4323-8 ####[facility] LABIA [id number] [place] [address] Sodium [Moles/Vol] 137 mmol/L Normal 136-144 [facility] Comment on above: Order Comment: Speci men Type: BLOOD SPECIMENOrdering Facility: [facility] Address: [address] [place] [address] Performed By: #### 2 4323-8 ####[facility] LABCLIA [id number] [place] [address] Urea nitrogen [Mass/Vol] 44 mg/dL High 7-21 [facility] Comment on above: Order Comment: Speci men Type: BLOOD SPECIMENOrdering Facility: [facility] Address: [address] [place] [address] Performed By: #### 2 4323-8 ####[facility] LABIA [id number] [place] [address] MRI BRAIN WO/W IVCONon 12-08 MRI BRAIN WO/W IVCON Normal [facility] CBC W Auto Differential pane l (Bld)on 11-30-2022 Basophils (Bld) [#/Vol] 10*3/uL Normal <0.11 [facility] Comment on above: Order Comment: Speci men Type: BLOOD SPECIMENOrdering Facility: [facility] Address: [address] [address] Performed By: #### 5 7021-8 ####[facility] LABCLIA [id number] [place] [address] Basophils/100 WBC (Bld) 0.0 % Normal [facility] Comment on above: Order Comment: Speci men Type: BLOOD SPECIMENOrdering Facility: [facility] Address: [address] [address] Performed By: #### 5 7021-8 ####[facility] LABCLIA [id number] [place] [address] Differential cell count method Nom (Bld) Auto Normal [facility] Comment on above: Order Comment: Speci men Type: BLOOD SPECIMENOrdering Facility: [facility] Address: [address] [address] Performed By: #### 5 7021-8 ####[facility] LABCLIA [id number] [place] [address] Eosinophils (Bld) [#/Vol] 10*3/uL Normal <0.46 [facility] Comment on above: Order Comment: Speci men Type: BLOOD SPECIMENOrdering Facility: [facility] Address: [address] [address] Performed By: #### 5 7021-8 ####[facility] LABCLIA [id number] [place] [address] Eosinophils/100 WBC (Bld) 0.0 % Normal [facility] Comment on above: Order Comment: Speci men Type: BLOOD SPECIMENOrdering Facility: [facility] Address: [address] [address] Performed By: #### 5 7021-8 ####[facility] LABCLIA [id number] [place] [address] Erythrocyte distribution width (RBC) [Ratio] 14.4 % Normal 11.5-15.0 [facility] Comment on above: Order Comment: Speci men Type: BLOOD SPECIMENOrdering Facility: [facility] Address: [address] [place] [address] Performed By: #### 5 7021-8 ####[facility] LABIA [id number] [place] [address] Hematocrit (Bld) [Volume fraction] 37.7 % Normal 36.0-46.0 [facility] Comment on above: Order Comment: Speci men Type: BLOOD SPECIMENOrdering Facility: [facility] Address: [address] [place] [address] Performed By: #### 5 7021-8 ####[facility] [id number] [place] [address] Hemoglobin (Bld) [Mass/Vol] 12.6 g/dL Normal 11.5-15.5 [facility] Comment on above: Order Comment: Speci men Type: BLOOD SPECIMENOrdering Facility: [facility] Address: [address] [place] [address] Performed By: #### 5 7021-8 ####[facility] [id number] [place] [address] Immature granulocytes (Bld) [#/Vol] 0.18 10*3/uL High <0.10 [facility] Comment on above: Order Comment: Speci men Type: BLOOD SPECIMENOrdering Facility: [facility] Address: [address] [place] [address] Performed By: #### 5 7021-8 ####[facility] [id number] [place] [address] Immature granulocytes/100 WBC (Bld) 2.3 % Normal [facility] Comment on above: Order Comment: Speci men Type: BLOOD SPECIMENOrdering Facility: [facility] Address: [address] [place] [address] Performed By: #### 5 7021-8 ####[facility] [id number] [place] [address] Lymphocytes (Bld) [#/Vol] 0.17 10*3/uL Low 1.00-4.00 [facility] Comment on above: Order Comment: Speci men Type: BLOOD SPECIMENOrdering Facility: [facility] Address: [address] [place] [address] Performed By: #### 5 7021-8 ####[facility] [id number] [place] [address] Lymphocytes/100 WBC (Bld) 2.2 % Normal [facility] Comment on above: Order Comment: Speci men Type: BLOOD SPECIMENOrdering Facility: [facility] Address: [address] [place] [address] Performed By: #### 5 7021-8 ####[facility] [id number] [place] [address] MCH (RBC) [Entitic mass] 30.0 pg Normal 26.0-34.0 [facility] Comment on above: Order Comment: Speci men Type: BLOOD SPECIMENOrdering Facility: [facility] Address: [address] [place] [address] Performed By: #### 5 7021-8 ####[facility] [id number] [place] [address] MCHC (RBC) [Mass/Vol] 33.4 g/dL Normal 30.5-36.0 [facility] Comment on above: Order Comment: Speci men Type: BLOOD SPECIMENOrdering Facility: [facility] Address: [address] [place] [address] Performed By: #### 5 7021-8 ####[facility] LABCLIA [id number] [place] [address] MCV (RBC) [Entitic vol] 89.8 fL Normal 80.0-100.0 [facility] Comment on above: Order Comment: Speci men Type: BLOOD SPECIMENOrdering Facility: [facility] Address: [address] [place] [address] Performed By: #### 5 7021-8 ####[facility] LABCLIA [id number] [place] [address] Monocytes (Bld) [#/Vol] 0.45 10*3/uL Normal <0.87 [facility] Comment on above: Order Comment: Speci men Type: BLOOD SPECIMENOrdering Facility: [facility] Address: [address] [place] [address] Performed By: #### 5 7021-8 ####[facility] LABCLIA [id number] [place] [address] Monocytes/100 WBC (Bld) 5.9 % Normal [facility] Comment on above: Order Comment: Speci men Type: BLOOD SPECIMENOrdering Facility: [facility] Address: [address] [place] [address] Performed By: #### 5 7021-8 ####[facility] LABCLIA [id number] [place] [address] Neutrophils (Bld) [#/Vol] 6.88 10*3/uL Normal 1.45-7.50 [facility] Comment on above: Order Comment: Speci men Type: BLOOD SPECIMENOrdering Facility: [facility] Address: [address] [place] [address] Performed By: #### 5 7021-8 ####[facility] LABCLIA [id number] [place] [address] Neutrophils/100 WBC (Bld) 89.6 % Normal [facility] Comment on above: Order Comment: Speci men Type: BLOOD SPECIMENOrdering Facility: [facility] Address: [address] [place] [address] Performed By: #### 5 7021-8 ####[facility] LABCLIA [id number] [place] [address] Nucleated RBC (Bld) [#/Vol] 10*3/uL Normal <0.01 [facility] Comment on above: Order Comment: Speci men Type: BLOOD SPECIMENOrdering Facility: [facility] Address: [address] [place] [address] Performed By: #### 5 7021-8 ####[facility] LABCLIA [id number] [place] [address] Nucleated RBC/100 WBC (Bld) [Ratio] 0.0 /100 WBC Normal [facility] Comment on above: Order Comment: Speci men Type: BLOOD SPECIMENOrdering Facility: [facility] Address: [address] [place] [address] Performed By: #### 5 7021-8 ####[facility] [id number] [place] [address] Platelet mean volume (Bld) [Entitic vol] 10.3 fL Normal 9.0-12.7 [facility] Comment on above: Order Comment: Speci men Type: BLOOD SPECIMENOrdering Facility: [facility] Address: [address] [place] [address] Performed By: #### 5 7021-8 ####[facility] [id number] [place] [address] Platelets (Bld) [#/Vol] 138 10*3/uL Low 150-400 [facility] Comment on above: Order Comment: Speci men Type: BLOOD SPECIMENOrdering Facility: [facility] Address: [address] [place] [address] Result Comment: Resu lts checked and verified.No clot detected. Performed By: #### 5 7021-8 ####[facility] [id number] [place] [address] RBC (Bld) [#/Vol] 4.20 10*6/uL Normal 3.90-5.20 [facility] Comment on above: Order Comment: Speci men Type: BLOOD SPECIMENOrdering Facility: [facility] Address: [address] [place] [address] Performed By: #### 5 7021-8 ####[facility] [id number] [place] [address] WBC (Bld) [#/Vol] 7.68 10*3/uL Normal 3.70-11.00 [facility] Comment on above: Order Comment: Speci men Type: BLOOD SPECIMENOrdering Facility: [facility] Address: [address] [place] [address] Performed By: #### 5 7021-8 ####[facility] [id number] [place] [address] CNOVon 11-30-2022 CNOV Normal [facility] CNOVSPon 11-30-2022 CNOVSP Normal [facility] Comprehensive metabolic 2000 panelon 11-30-2022 Albumin [Mass/Vol] 3.8 g/dL Low 3.9-4.9 [facility] Comment on above: Order Comment: Speci men Type: BLOOD SPECIMENOrdering Facility: [facility] Address: [address] [place] [address] Performed By: #### 2 4323-8 ####[facility] LABCLIA [id number] [place] [address] ALP [Catalytic activity/Vol] 53 U/L Normal 34-123 [facility] Comment on above: Order Comment: Speci men Type: BLOOD SPECIMENOrdering Facility: [facility] Address: [address] [place] [address] Performed By: #### 2 4323-8 ####[facility] LABCLIA [id number] [place] [address] ALT [Catalytic activity/Vol] 24 U/L Normal 7-38 [facility] Comment on above: Order Comment: Speci men Type: BLOOD SPECIMENOrdering Facility: [facility] Address: [address] [address] Performed By: #### 2 4323-8 ####[facility] LABCLIA [id number] [place] [address] Anion gap [Moles/Vol] 11 mmol/L Normal 9-18 [facility] Comment on above: Order Comment: Speci men Type: BLOOD SPECIMENOrdering Facility: [facility] Address: [address] [address] Performed By: #### 2 4323-8 ####[facility] [id number] [place] [address] AST [Catalytic activity/Vol] 12 U/L Low 13-35 [facility] Comment on above: Order Comment: Speci men Type: BLOOD SPECIMENOrdering Facility: [facility] Address: [address] [address] Performed By: #### 2 4323-8 ####[facility] [id number] [place] [address] Bilirubin [Mass/Vol] 0.7 mg/dL Normal 0.2-1.3 [facility] Comment on above: Order Comment: Speci men Type: BLOOD SPECIMENOrdering Facility: [facility] Address: [address] [address] Performed By: #### 2 4323-8 ####[facility] LABCLIA [id number] [place] [address] Calcium [Mass/Vol] 9.4 mg/dL Normal 8.5-10.2 [facility] Comment on above: Order Comment: Speci men Type: BLOOD SPECIMENOrdering Facility: [facility] Address: [address] [address] Performed By: #### 2 4323-8 ####[facility] LABCLIA [id number] [place] [address] Chloride [Moles/Vol] 101 mmol/L Normal 97-105 [facility] Comment on above: Order Comment: Speci men Type: BLOOD SPECIMENOrdering Facility: [facility] Address: [address] [place] [address] Performed By: #### 2 4323-8 ####[facility] LABCLIA [id number] [place] [address] CO2 [Moles/Vol] 26 mmol/L Normal 22-30 [facility] Comment on above: Order Comment: Speci men Type: BLOOD SPECIMENOrdering Facility: [facility] Address: [address] [place] [address] Performed By: #### 2 4323-8 ####[facility] LABCLIA [id number] [place] [address] Creatinine [Mass/Vol] 0.86 mg/dL Normal 0.58-0.96 [facility] Comment on above: Order Comment: Speci men Type: BLOOD SPECIMENOrdering Facility: [facility] Address: [address] [place] [address] Performed By: #### 2 4323-8 ####[facility] LABCLIA [id number] [place] [address] ESTIMATED GLOMERULAR FILTRATION RATE 69 mL/min/1.73m??? Normal >=60 [facility] Comment on above: Order Comment: Speci men Type: BLOOD SPECIMENOrdering Facility: [facility] Address: [address] [place] [address] Result Comment: Kim mated Glomerular Filtration Rate (eGFR) is calculated using the 2020 CKD-EPI creatinine equation. This equation utilizes serum creatinine, sex, and age as parameters. The creatinine assay has traceable calibration to isotope dilution-mass spectrometry. Refer to KDIGO guidelines for clinical interpretation. In patients with unstable renal function, e.g. those with acute kidney injury, the eGFR may not accurately reflect actual GFR. Performed By: #### 2 4323-8 ####[facility] LABCLIA [id number] [place] [address] Glucose [Mass/Vol] 127 mg/dL High 74-99 [facility] Comment on above: Order Comment: Speci men Type: BLOOD SPECIMENOrdering Facility: [facility] Address: [address] [place] [address] Result Comment: The [place] Diabetes Association (ADA) provides guidance for cutoff values for fasting glucose and random glucose. The ADA defines fasting as no caloric intake for at least 8 hours. Fasting plasma glucose results between 100 to 125 mg/dL indicate increased risk for diabetes (prediabetes).Fasting plasma glucose results greater than or equal to 126 mg/dL meet the criteria for diagnosis of diabetes. In the absence of unequivocal hyperglycemia, results should be confirmed by repeat testing. In a patient with classic symptoms of hyperglycemia or hyperglycemic crisis, random plasma glucose results greater than or equal to 200 mg/dL meet the criteria for diagnosis of diabetes.Reference: Standards of Medical Care in Diabetes 2016, [place] [employer]. Diabetes Care. 2016.39(Suppl 1). Performed By: #### 2 4323-8 ####[facility] LABCLIA [id number] [place] [address] Potassium [Moles/Vol] 3.7 mmol/L Normal 3.7-5.1 [facility] Comment on above: Order Comment: Speci men Type: BLOOD SPECIMENOrdering Facility: [facility] Address: [address] [address] Performed By: #### 2 4323-8 ####[facility] LABCLIA [id number] [place] [address] Protein [Mass/Vol] 6.0 g/dL Low 6.3-8.0 [facility] Comment on above: Order Comment: Speci men Type: BLOOD SPECIMENOrdering Facility: [facility] Address: [address] [place] [address] Performed By: #### 2 4323-8 ####[facility] LABCLIA [id number] [place] [address] Sodium [Moles/Vol] 138 mmol/L Normal 136-144 [facility] Comment on above: Order Comment: Speci men Type: BLOOD SPECIMENOrdering Facility: [facility] Address: [address] [place] [address] Performed By: #### 2 4323-8 ####[facility] LABCLIA [id number] [place] [address] Urea nitrogen [Mass/Vol] 27 mg/dL High 7-21 [facility] Comment on above: Order Comment: Speci men Type: BLOOD SPECIMENOrdering Facility: [facility] Address: [address] [place] [address] Performed By: #### 2 4323-8 ####[facility] LABCLIA [id number] [place] [address] CNPNon 11-28-2022 CNPN Normal [facility] CNPNon 11-24-2022 CNPN Normal [facility] CNOVSPon 11-17-2022 CNOVSP Normal [facility] Comprehensive metabolic 2000 panelon 11-17-2022 Albumin [Mass/Vol] 4.2 g/dL Normal 3.9-4.9 [facility] Comment on above: Order Comment: Speci men Type: BLOOD SPECIMENOrdering Facility: [facility] Address: [address] [place] [address] Performed By: #### 2 4323-8 ####[facility] LABCLIA [id number] [place] [address] ALP [Catalytic activity/Vol] 44 U/L Normal 34-123 [facility] Comment on above: Order Comment: Speci men Type: BLOOD SPECIMENOrdering Facility: [facility] Address: [address] [place] [address] Performed By: #### 2 4323-8 ####[facility] LABCLIA [id number] [place] [address] ALT [Catalytic activity/Vol] 25 U/L Normal 7-38 [facility] Comment on above: Order Comment: Speci men Type: BLOOD SPECIMENOrdering Facility: [facility] Address: [address] [address] Performed By: #### 2 4323-8 ####[facility] LABCLIA [id number] [place] [address] Anion gap [Moles/Vol] 11 mmol/L Normal 9-18 [facility] Comment on above: Order Comment: Speci men Type: BLOOD SPECIMENOrdering Facility: [facility] Address: [address] [place] [address] Performed By: #### 2 4323-8 ####[facility] LAB[facility] [id number] [place] [address] AST [Catalytic activity/Vol] 15 U/L Normal 13-35 [facility] Comment on above: Order Comment: Speci men Type: BLOOD SPECIMENOrdering Facility: [facility] Address: [address] [place] [address] Performed By: #### 2 4323-8 ####[facility] LABCLIA [id number] [place] [address] Bilirubin [Mass/Vol] 0.6 mg/dL Normal 0.2-1.3 [facility] Comment on above: Order Comment: Speci men Type: BLOOD SPECIMENOrdering Facility: [facility] Address: [address] [address] Performed By: #### 2 4323-8 ####[facility] LABCLIA [id number] [place] [address] Calcium [Mass/Vol] 9.6 mg/dL Normal 8.5-10.2 [facility] Comment on above: Order Comment: Speci men Type: BLOOD SPECIMENOrdering Facility: [facility] Address: [address] [place] [address] Performed By: #### 2 4323-8 ####[facility] LABCLIA [id number] [place] [address] Chloride [Moles/Vol] 98 mmol/L Normal 97-105 [facility] Comment on above: Order Comment: Speci men Type: BLOOD SPECIMENOrdering Facility: [facility] Address: [address] [place] [address] Performed By: #### 2 4323-8 ####[facility] LABCLIA [id number] [place] [address] CO2 [Moles/Vol] 27 mmol/L Normal 22-30 [facility] Comment on above: Order Comment: Speci men Type: BLOOD SPECIMENOrdering Facility: [facility] Address: [address] [place] [address] Performed By: #### 2 4323-8 ####[facility] LABCLIA [id number] [place] [address] Creatinine [Mass/Vol] 0.83 mg/dL Normal 0.58-0.96 [facility] Comment on above: Order Comment: Speci men Type: BLOOD SPECIMENOrdering Facility: [facility] Address: [address] [place] [address] Performed By: #### 2 4323-8 ####[facility] LABCLIA [id number] [place] [address] ESTIMATED GLOMERULAR FILTRATION RATE 72 mL/min/1.73m??? Normal >=60 [facility] Comment on above: Order Comment: Speci men Type: BLOOD SPECIMENOrdering Facility: [facility] Address: [address] [place] [address] Result Comment: Kim mated Glomerular Filtration Rate (eGFR) is calculated using the 2020 CKD-EPI creatinine equation. This equation utilizes serum creatinine, sex, and age as parameters. The creatinine assay has traceable calibration to isotope dilution-mass spectrometry. Refer to KDIGO guidelines for clinical interpretation. In patients with unstable renal function, e.g. those with acute kidney injury, the eGFR may not accurately reflect actual GFR. Performed By: #### 2 4323-8 ####[facility] [id number] [place] [address] Glucose [Mass/Vol] 115 mg/dL High 74-99 [facility] Comment on above: Order Comment: Speci men Type: BLOOD SPECIMENOrdering Facility: [facility] Address: [address] [place] [address] Result Comment: The [place] Diabetes Association (ADA) provides guidance for cutoff values for fasting glucose and random glucose. The ADA defines fasting as no caloric intake for at least 8 hours. Fasting plasma glucose results between 100 to 125 mg/dL indicate increased risk for diabetes (prediabetes).Fasting plasma glucose results greater than or equal to 126 mg/dL meet the criteria for diagnosis of diabetes. In the absence of unequivocal hyperglycemia, results should be confirmed by repeat testing. In a patient with classic symptoms of hyperglycemia or hyperglycemic crisis, random plasma glucose results greater than or equal to 200 mg/dL meet the criteria for diagnosis of diabetes.Reference: Standards of Medical Care in Diabetes 2016, [place] [employer]. Diabetes Care. 2016.39(Suppl 1). Performed By: #### 2 4323-8 ####[facility] [id number] [place] [address] Potassium [Moles/Vol] 4.4 mmol/L Normal 3.7-5.1 [facility] Comment on above: Order Comment: Speci men Type: BLOOD SPECIMENOrdering Facility: [facility] Address: [address] [address] Performed By: #### 2 4323-8 ####[facility] [id number] [place] [address] Protein [Mass/Vol] 6.3 g/dL Normal 6.3-8.0 [facility] Comment on above: Order Comment: Speci men Type: BLOOD SPECIMENOrdering Facility: [facility] Address: [address] [address] Performed By: #### 2 4323-8 ####[facility] LABCLIA [id number] [place] [address] Sodium [Moles/Vol] 136 mmol/L Normal 136-144 [facility] Comment on above: Order Comment: Speci men Type: BLOOD SPECIMENOrdering Facility: [facility] Address: [address] [place] [address] Performed By: #### 2 4323-8 ####[facility] LABCLIA [id number] [place] [id number] Urea nitrogen [Mass/Vol] 37 mg/dL High 7-21 [facility] Comment on above: Order Comment: Speci men Type: BLOOD SPECIMENOrdering Facility: [facility] Address: [address] [place] [address] Performed By: #### 2 4323-8 ####[facility] LABCLIA [id number] [place] [id number] TSH SerPl-aCncon 11-17-2022 TSH Qn 1.800 m[IU]/L Normal 0.270-4.20 0 [facility] Comment on above: Order Comment: Speci men Type: BLOOD SPECIMENOrdering Facility: [facility] Address: [address] [place] [address] Performed By: #### 3 016-3 ####[facility] LABCLIA [id number] [place] [address] [place] CBC W Auto Differential pane l (Bld)on 11-16-2022 Basophils (Bld) [#/Vol] 0.00 10*3/uL <0.11 k/uL [facility] Basophils/100 WBC (Bld) 0.0 % C [facility] Differential cell count method Nom (Bld) Manual [facility] Eosinophils (Bld) [#/Vol] 0.00 10*3/uL <0.46 k/uL [facility] Eosinophils/100 WBC (Bld) 0.0 % [facility] Erythrocyte distribution width (RBC) [Ratio] 13.8 % 11.5 - 15.0 % [facility] Hematocrit (Bld) [Volume fraction] 35.7 % Low 36.0 - 46.0 % [facility] Hemoglobin (Bld) [Mass/Vol] 11.7 g/dL 11.5 - 15.5 g/dL [facility] Lymphocytes (Bld) [#/Vol] 0.15 10*3/uL Low 1.00 - 4.00 k/uL [facility] Lymphocytes/100 WBC (Bld) 2.0 % [facility] MCH (RBC) [Entitic mass] 29.7 pg 26.0 - 34.0 pg [facility] MCHC (RBC) [Mass/Vol] 32.8 g/dL 30.5 - 36.0 g/dL [facility] MCV (RBC) [Entitic vol] 90.6 fL 80.0 - 100.0 fL [facility] [place] % 1.0 % [facility] Monocytes (Bld) [#/Vol] 0.38 10*3/uL <0.87 k/uL [facility] Monocytes/100 WBC (Bld) 5.0 % C [facility] Neutrophils (Bld) [#/Vol] 6.97 10*3/uL 1.45 - 7.50 k/uL [facility] Neutrophils/100 WBC (Bld) 92.0 % [facility] Nucleated RBC (Bld) [#/Vol] <0.01 k/uL [facility] Nucleated RBC/100 WBC (Bld) [Ratio] 0.0 /100 WBC [facility] Platelet mean volume (Bld) [Entitic vol] 10.7 fL 9.0 - 12.7 fL [facility] Platelets (Bld) [#/Vol] 152 10*3/uL 150 - 400 k/uL [facility] Platelets Estimate (Bld) [#/Vol] Adequate [facility] RBC (Bld) [#/Vol] 3.94 10*6/uL 3.90 - 5.20 m/uL [facility] Red Cell Morph Reviewed: unremarkable [facility] WBC (Bld) [#/Vol] 7.58 10*3/uL 3.70 - 11.00 k/uL [facility] WBC Left Shift Ql (Bld) Present [facility] Basophils (Bld) [#/Vol] 0.00 10*3/uL Normal <0.11 [facility] Comment on above: Order Comment: Speci men Type: BLOOD SPECIMENOrdering Facility: [facility] Address: [address] [place] [address] Performed By: #### 5 7021-8 ####[facility] LABORATORYCLIA [id number] [place] [address] [place] Basophils/100 WBC (Bld) 0.0 % Normal [facility] Comment on above: Order Comment: Speci men Type: BLOOD SPECIMENOrdering Facility: [facility] Address: [address] [place] [address] Performed By: #### 5 7021-8 ####[facility] LABORATORYCLIA [id number] [place] [address] [place] Differential cell count method Nom (Bld) Manual Normal [facility] Comment on above: Order Comment: Speci men Type: BLOOD SPECIMENOrdering Facility: [facility] Address: [address] [place] [address] Performed By: #### 5 7021-8 ####[facility] LABORATORYCLIA [id number] [place] [address] [place] Eosinophils (Bld) [#/Vol] 0.00 10*3/uL Normal <0.46 [facility] Comment on above: Order Comment: Speci men Type: BLOOD SPECIMENOrdering Facility: [facility] Address: [address] [place] [address] Performed By: #### 5 7021-8 ####[facility] LABORATORYCLIA [id number] [place] [address] [place] Eosinophils/100 WBC (Bld) 0.0 % Normal [facility] Comment on above: Order Comment: Speci men Type: BLOOD SPECIMENOrdering Facility: [facility] Address: [address] [place] [address] Performed By: #### 5 7021-8 ####[facility] LABORATORYCLIA [id number] [place] [address] [place] Erythrocyte distribution width (RBC) [Ratio] 13.8 % Normal 11.5-15.0 [facility] Comment on above: Order Comment: Speci men Type: BLOOD SPECIMENOrdering Facility: [facility] Address: [address] [place] [address] Performed By: #### 5 7021-8 ####[facility] LABORATORYCLIA [id number] [place] [address] [place] Hematocrit (Bld) [Volume fraction] 35.7 % Low 36.0-46.0 [facility] [facility] Comment on above: Order Comment: Speci men Type: BLOOD SPECIMENOrdering Facility: [facility] Address: [address] [place] [address] Performed By: #### 5 7021-8 ####MICHAEL LABORATORYCLIA [id number] [place] [address] [place] Hemoglobin (Bld) [Mass/Vol] 11.7 g/dL Normal 11.5-15.5 [facility] Comment on above: Order Comment: Speci men Type: BLOOD SPECIMENOrdering Facility: [facility] Address: [address] [place] [address] Performed By: #### 5 7021-8 ####MICHAEL LABORATORYCLIA [id number] [place] [address] [place] Lymphocytes (Bld) [#/Vol] 0.15 10*3/uL Low 1.00-4.00 [facility] Comment on above: Order Comment: Speci men Type: BLOOD SPECIMENOrdering Facility: [facility] Address: [address] [place] [address] Performed By: #### 5 7021-8 ####MICHAEL LABORATORYCLIA [id number] [place] [address] [place] Lymphocytes/100 WBC (Bld) 2.0 % Normal [facility] Comment on above: Order Comment: Speci men Type: BLOOD SPECIMENOrdering Facility: [facility] Address: [address] [place] [address] Performed By: #### 5 7021-8 ####MICHAEL LABORATORYCLIA [id number] [place] [address] [place] MCH (RBC) [Entitic mass] 29.7 pg Normal 26.0-34.0 [facility] Comment on above: Order Comment: Speci men Type: BLOOD SPECIMENOrdering Facility: [facility] Address: [address] [place] [address] Performed By: #### 5 7021-8 ####MICHAEL LABORATORYCLIA [id number] [place] [address] [place] MCHC (RBC) [Mass/Vol] 32.8 g/dL Normal 30.5-36.0 [facility] Comment on above: Order Comment: Speci men Type: BLOOD SPECIMENOrdering Facility: [facility] Address: [address] [place] [address] Performed By: #### 5 7021-8 ####MICHAEL LABORATORYCLIA [id number] [place] [address] [place] MCV (RBC) [Entitic vol] 90.6 fL Normal 80.0-100.0 [facility] Comment on above: Order Comment: Speci men Type: BLOOD SPECIMENOrdering Facility: [facility] Address: [address] [place] [address] Performed By: #### 5 7021-8 ####MICHAEL LABORATORYCLIA [id number] [place] [address] [place] Metamyelocytes/100 WBC (Bld) 1.0 % Normal [facility] Comment on above: Order Comment: Speci men Type: BLOOD SPECIMENOrdering Facility: [facility] Address: [address] [place] [address] Performed By: #### 5 7021-8 ####MICHAEL LABORATORYCLIA [id number] [place] [address] [place] Monocytes (Bld) [#/Vol] 0.38 10*3/uL Normal <0.87 [facility] Comment on above: Order Comment: Speci men Type: BLOOD SPECIMENOrdering Facility: [facility] Address: [address] [place] [address] Performed By: #### 5 7021-8 ####MICHAEL LABORATORYCLIA [id number] [place] [address] [place] Monocytes/100 WBC (Bld) 5.0 % Normal [facility] Comment on above: Order Comment: Speci men Type: BLOOD SPECIMENOrdering Facility: [facility] Address: [address] [place] [address] Performed By: #### 5 7021-8 ####MICHAEL LABORATORYCLIA [id number] [place] [address] [place] Neutrophils (Bld) [#/Vol] 6.97 10*3/uL Normal 1.45-7.50 [facility] Comment on above: Order Comment: Speci men Type: BLOOD SPECIMENOrdering Facility: [facility] Address: [address] [place] [address] Performed By: #### 5 7021-8 ####MICHEAL LABORATORYCLIA [id number] [place] [address] [place] Neutrophils/100 WBC (Bld) 92.0 % Normal [facility] Comment on above: Order Comment: Speci men Type: BLOOD SPECIMENOrdering Facility: [facility] Address: [address] [place] [address] Performed By: #### 5 7021-8 ####MICHAEL LABORATORYCLIA [id number] [place] [address] [place] Nucleated RBC (Bld) [#/Vol] 10*3/uL Normal <0.01 [facility] Comment on above: Order Comment: Speci men Type: BLOOD SPECIMENOrdering Facility: [facility] Address: [address] [place] [address] Performed By: #### 5 7021-8 ####MICHAEL LABORATORYCLIA [id number] [place] [address] [place] Nucleated RBC/100 WBC (Bld) [Ratio] 0.0 /100 WBC Normal [facility] Comment on above: Order Comment: Speci men Type: BLOOD SPECIMENOrdering Facility: [facility] Address: [address] [place] [address] Performed By: #### 5 7021-8 ####MICHAEL LABORATORYCLIA [id number] [place] [address] [place] Platelet mean volume (Bld) [Entitic vol] 10.7 fL Normal 9.0-12.7 [facility] Comment on above: Order Comment: Speci men Type: BLOOD SPECIMENOrdering Facility: [facility] Address: [address] [place] [address] Performed By: #### 5 7021-8 ####MICHAEL LABORATORYCLIA [id number] [place] [address] [place] Platelets (Bld) [#/Vol] 152 10*3/uL Normal 150-400 [facility] Comment on above: Order Comment: Speci men Type: BLOOD SPECIMENOrdering Facility: [facility] Address: [address] [place] [address] Performed By: #### 5 7021-8 ####MICHAEL LABORATORYCLIA [id number] [place] [address] [place] Platelets Estimate (Bld) [#/Vol] Adequate Normal [facility] Comment on above: Order Comment: Speci men Type: BLOOD SPECIMENOrdering Facility: [facility] Address: [address] [place] [address] Performed By: #### 5 7021-8 ####MICHAEL LABORATORYCLIA [id number] [place] [address] [place] RBC (Bld) [#/Vol] 3.94 10*6/uL Normal 3.90-5.20 [facility] Comment on above: Order Comment: Speci men Type: BLOOD SPECIMENOrdering Facility: [facility] Address: [address] [place] [address] Performed By: #### 5 7021-8 ####MICHAEL LABORATORYCLIA [id number] [place] [address] [place] RED CELL MORPH Reviewed: unremarkable Normal [facility] Comment on above: Order Comment: Speci men Type: BLOOD SPECIMENOrdering Facility: [facility] Address: [address] [place] [address] Performed By: #### 5 7021-8 ####MICHAEL LABORATORYCLIA [id number] [place] [address] [place] WBC (Bld) [#/Vol] 7.58 10*3/uL Normal 3.70-11.00 [facility] Comment on above: Order Comment: Speci men Type: BLOOD SPECIMENOrdering Facility: [facility] Address: [address] [place] [address] Performed By: #### 5 7021-8 ####MICHAEL LABORATORYCLIA [id number] [place] [address] [place] WBC Left Shift Ql (Bld) Present Normal C [facility] Comment on above: Order Comment: Speci men Type: BLOOD SPECIMENOrdering Facility: [facility] Address: [address] [place] [address] Performed By: #### 5 7021-8 ####MICHAEL LABORATORYCLIA [id number] [place] [address] [place] Comprehensive metabolic 2000 panelon 11-16-2022 Albumin [Mass/Vol] 3.6 g/dL Low 3.9 - 4.9 g/dL [facility] ALP [Catalytic activity/Vol] 36 U/L 34 - 123 U/L [facility] ALT [Catalytic activity/Vol] 19 U/L 7 - 38 U/L [facility] Anion gap [Moles/Vol] 8 mmol/L Low 9 - 18 mmol/L [facility] AST [Catalytic activity/Vol] 13 U/L 13 - 35 U/L [facility] Bilirubin [Mass/Vol] 0.6 mg/dL 0.2 - 1 .3 mg/dL [facility] Calcium [Mass/Vol] 9.2 mg/dL 8.5 - 10. 2 mg/dL [facility] Chloride [Moles/Vol] 101 mmol/L 97 - 10 5 mmol/L [facility] CO2 [Moles/Vol] 27 mmol/L 22 - 30 mmol/L [facility] Creatinine [Mass/Vol] 0.89 mg/dL 0.58 - 0.96 mg/dL [facility] Estimated Glomerular Filtration Rate 66 mL/min/1.73m >=60 mL/min/1.7 3m [facility] Glucose [Mass/Vol] 91 mg/dL 74 - 99 mg/dL [facility] Potassium [Moles/Vol] 4.5 mmol/L 3.7 - 5.1 mmol/L [facility] Protein [Mass/Vol] 5.2 g/dL Low 6.3 - 8.0 g/dL [facility] Sodium [Moles/Vol] 136 mmol/L 136 - 144 mmol/L [facility] Urea nitrogen [Mass/Vol] 36 mg/dL High 7 - 21 mg/dL [facility] Albumin [Mass/Vol] 3.6 g/dL Low 3.9-4.9 [facility] Comment on above: Order Comment: Speci men Type: BLOOD SPECIMENOrdering Facility: [facility] Address: [address] [place] [address] Performed By: #### 2 4323-8 ####MICHAEL LABORATORYCLIA [id number] [place] [address] [place] ALP [Catalytic activity/Vol] 36 U/L Normal 34-123 [facility] Comment on above: Order Comment: Speci men Type: BLOOD SPECIMENOrdering Facility: [facility] Address: [address] [place] [address] Performed By: #### 2 4323-8 ####MICHAEL LABORATORYCLIA [id number] [place] [address] [place] ALT [Catalytic activity/Vol] 19 U/L Normal 7-38 [facility] Comment on above: Order Comment: Speci men Type: BLOOD SPECIMENOrdering Facility: [facility] Address: [address] [place] [address] Performed By: #### 2 4323-8 ####MICHAEL LABORATORYCLIA [id number] [place] [address] [place] Anion gap [Moles/Vol] 8 mmol/L Low 9-18 [facility] Comment on above: Order Comment: Speci men Type: BLOOD SPECIMENOrdering Facility: [facility] Address: [address] [place] [address] Performed By: #### 2 4323-8 ####MICHAEL LABORATORYCLIA [id number] [place] [address] [place] AST [Catalytic activity/Vol] 13 U/L Normal 13-35 [facility] Comment on above: Order Comment: Speci men Type: BLOOD SPECIMENOrdering Facility: [facility] Address: [address] [place] [address] Performed By: #### 2 4323-8 ####MICHAEL LABORATORYCLIA [id number] [place] [address] [place] Bilirubin [Mass/Vol] 0.6 mg/dL Normal 0.2-1.3 [facility] Comment on above: Order Comment: Speci men Type: BLOOD SPECIMENOrdering Facility: [facility] Address: [address] [place] [address] Performed By: #### 2 4323-8 ####MICHAEL LABORATORYCLIA [id number] [place] [address] [place] Calcium [Mass/Vol] 9.2 mg/dL Normal 8.5-10.2 [facility] Comment on above: Order Comment: Speci men Type: BLOOD SPECIMENOrdering Facility: [facility] Address: [address] [place] [address] Performed By: #### 2 4323-8 ####MICHAEL LABORATORYCLIA [id number] [place] [address] [place] Chloride [Moles/Vol] 101 mmol/L Normal 97-105 [facility] Comment on above: Order Comment: Speci men Type: BLOOD SPECIMENOrdering Facility: [facility] Address: [address] [place] [address] Performed By: #### 2 4323-8 ####MICHAEL LABORATORYCLIA [id number] [place] [address] [place] CO2 [Moles/Vol] 27 mmol/L Normal 22-30 [facility] Comment on above: Order Comment: Speci men Type: BLOOD SPECIMENOrdering Facility: [facility] Address: [address] [place] [address] Performed By: #### 2 4323-8 ####MICHAEL LABORATORYCLIA [id number] [place] [address] [place] Creatinine [Mass/Vol] 0.89 mg/dL Normal 0.58-0.96 [facility] Comment on above: Order Comment: Speci men Type: BLOOD SPECIMENOrdering Facility: [facility] Address: [address] [place] [address] Performed By: #### 2 4323-8 ####MICHAEL LABORATORYCLIA [id number] [place] [address] [place] ESTIMATED GLOMERULAR FILTRATION RATE 66 mL/min/1.73m??? Normal >=60 [facility] Comment on above: Order Comment: Speci men Type: BLOOD SPECIMENOrdering Facility: [facility] Address: [address] [place] [address] Result Comment: Kim mated Glomerular Filtration Rate (eGFR) is calculated using the 2020 CKD-EPI creatinine equation. This equation utilizes serum creatinine, sex, and age as parameters. The creatinine assay has traceable calibration to isotope dilution-mass spectrometry. Refer to KDIGO guidelines for clinical interpretation. In patients with unstable renal function, e.g. those with acute kidney injury, the eGFR may not accurately reflect actual GFR. Performed By: #### 2 4323-8 ####MICHAEL LABORATORYCLIA [id number] [place] [address] [place] Glucose [Mass/Vol] 91 mg/dL Normal 74-99 [facility] Comment on above: Order Comment: Speci men Type: BLOOD SPECIMENOrdering Facility: [facility] Address: [address] [place] [address] Result Comment: The [place] [employer] (ADA) provides guidance for cutoff values for fasting glucose and random glucose. The ADA defines fasting as no caloric intake for at least 8 hours. Fasting plasma glucose results between 100 to 125 mg/dL indicate increased risk for diabetes (prediabetes).Fasting plasma glucose results greater than or equal to 126 mg/dL meet the criteria for diagnosis of diabetes. In the absence of unequivocal hyperglycemia, results should be confirmed by repeat testing. In a patient with classic symptoms of hyperglycemia or hyperglycemic crisis, random plasma glucose results greater than or equal to 200 mg/dL meet the criteria for diagnosis of diabetes.Reference: Standards of Medical Care in Diabetes 2016, [place] [employer]. Diabetes Care. 2016.39(Suppl 1). Performed By: #### 2 4323-8 ####MICHAEL LABORATORYCLIA [id number] [place] [address] [place] Potassium [Moles/Vol] 4.5 mmol/L Normal 3.7-5.1 [facility] Comment on above: Order Comment: Speci men Type: BLOOD SPECIMENOrdering Facility: [facility] Address: [address] [place] [address] Performed By: #### 2 4323-8 ####MICHAEL LABORATORYCLIA [id number] [place] [address] [place] Protein [Mass/Vol] 5.2 g/dL Low 6.3-8.0 [facility] Comment on above: Order Comment: Speci men Type: BLOOD SPECIMENOrdering Facility: [facility] Address: [address] [place] [address] Performed By: #### 2 4323-8 ####MICHAEL LABORATORYCLIA [id number] [place] [address] [place] Sodium [Moles/Vol] 136 mmol/L Normal 136-144 [facility] Comment on above: Order Comment: Speci men Type: BLOOD SPECIMENOrdering Facility: [facility] Address: [address] [place] [address] Performed By: #### 2 4323-8 ####MICHAEL LABORATORYCLIA [id number] [place] [address] [place] Urea nitrogen [Mass/Vol] 36 mg/dL High 7-21 [facility] Comment on above: Order Comment: Speci men Type: BLOOD SPECIMENOrdering Facility: [facility] Address: [address] [place] [address] Performed By: #### 2 4323-8 ####SAN JUAN LABORATORYCLIA [id number] [place] [address] [place] CBC W Auto Differential pane l (Bld)on 11-13-2022 Basophils (Bld) [#/Vol] <0.11 k/uL C [facility] Basophils/100 WBC (Bld) 0.1 % C [facility] Differential cell count method Nom (Bld) Auto [facility] Eosinophils (Bld) [#/Vol] <0.46 k/uL [facility] Eosinophils/100 WBC (Bld) 0.0 % [facility] Erythrocyte distribution width (RBC) [Ratio] 13.7 % 11.5 - 15.0 % [facility] Hematocrit (Bld) [Volume fraction] 36.9 % 36.0 - 46.0 % [facility] Hemoglobin (Bld) [Mass/Vol] 12.1 g/dL 11.5 - 15.5 g/dL [facility] Immature granulocytes (Bld) [#/Vol] 0.14 10*3/uL High <0.10 k/uL [facility] Immature granulocytes/100 WBC (Bld) 2.0 % [facility] Lymphocytes (Bld) [#/Vol] 0.34 10*3/uL Low 1.00 - 4.00 k/uL [facility] Lymphocytes/100 WBC (Bld) 4.8 % [facility] MCH (RBC) [Entitic mass] 30.3 pg 26.0 - 34.0 pg [facility] MCHC (RBC) [Mass/Vol] 32.8 g/dL 30.5 - 36.0 g/dL [facility] MCV (RBC) [Entitic vol] 92.3 fL 80.0 - 100.0 fL [facility] Monocytes (Bld) [#/Vol] 0.56 10*3/uL <0.87 k/uL [facility] Monocytes/100 WBC (Bld) 7.9 % C [facility] Neutrophils (Bld) [#/Vol] 6.04 10*3/uL 1.45 - 7.50 k/uL [facility] Neutrophils/100 WBC (Bld) 85.2 % [facility] Nucleated RBC (Bld) [#/Vol] <0.01 k/uL [facility] Nucleated RBC/100 WBC (Bld) [Ratio] 0.0 /100 WBC [facility] Platelet mean volume (Bld) [Entitic vol] 11.0 fL 9.0 - 12.7 fL [facility] Platelets (Bld) [#/Vol] 148 10*3/uL Low 150 - 400 k/uL [facility] RBC (Bld) [#/Vol] 4.00 10*6/uL 3.90 - 5.20 m/uL [facility] WBC (Bld) [#/Vol] 7.09 10*3/uL 3.70 - 11.00 k/uL [facility] Basophils (Bld) [#/Vol] 10*3/uL Normal <0.11 [facility] Comment on above: Order Comment: Speci men Type: BLOOD SPECIMENOrdering Facility: [facility] Address: [address] [place] [address] Performed By: #### 5 7021-8 ####MICHAEL LABORATORYCLIA [id number] [place] [address] [place] Basophils/100 WBC (Bld) 0.1 % Normal [facility] Comment on above: Order Comment: Speci men Type: BLOOD SPECIMENOrdering Facility: [facility] Address: [address] [place] [address] Performed By: #### 5 7021-8 ####MICHAEL LABORATORYCLIA [id number] [place] [address] [place] Differential cell count method Nom (Bld) Auto Normal [facility] Comment on above: Order Comment: Speci men Type: BLOOD SPECIMENOrdering Facility: [facility] Address: [address] [place] [address] Performed By: #### 5 7021-8 ####MICHAEL LABORATORYCLIA [id number] [place] [address] [place] Eosinophils (Bld) [#/Vol] 10*3/uL Normal <0.46 [facility] Comment on above: Order Comment: Speci men Type: BLOOD SPECIMENOrdering Facility: [facility] Address: [address] [place] [address] Performed By: #### 5 7021-8 ####MICHAEL LABORATORYCLIA [id number] [place] [address] [place] Eosinophils/100 WBC (Bld) 0.0 % Normal [facility] Comment on above: Order Comment: Speci men Type: BLOOD SPECIMENOrdering Facility: [facility] Address: [address] [place] [address] Performed By: #### 5 7021-8 ####MICHAEL LABORATORYCLIA [id number] [place] [address] [place] Erythrocyte distribution width (RBC) [Ratio] 13.7 % Normal 11.5-15.0 [facility] Comment on above: Order Comment: Speci men Type: BLOOD SPECIMENOrdering Facility: [facility] Address: [address] [place] [address] Performed By: #### 5 7021-8 ####MICHAEL LABORATORYCLIA [id number] [place] [address] [place] Hematocrit (Bld) [Volume fraction] 36.9 % Normal 36.0-46.0 [facility] Comment on above: Order Comment: Speci men Type: BLOOD SPECIMENOrdering Facility: [facility] Address: [address] [place] [address] Performed By: #### 5 7021-8 ####MICHAEL LABORATORYCLIA [id number] [place] [address] [place] Hemoglobin (Bld) [Mass/Vol] 12.1 g/dL Normal 11.5-15.5 [facility] Comment on above: Order Comment: Speci men Type: BLOOD SPECIMENOrdering Facility: [facility] Address: [address] [place] [address] Performed By: #### 5 7021-8 ####MICHAEL LABORATORYCLIA [id number] [place] [address] [place] Immature granulocytes (Bld) [#/Vol] 0.14 10*3/uL High <0.10 [facility] Comment on above: Order Comment: Speci men Type: BLOOD SPECIMENOrdering Facility: [facility] Address: [address] [place] [address] Performed By: #### 5 7021-8 ####MICHAEL LABORATORYCLIA [id number] [place] [address] [place] Immature granulocytes/100 WBC (Bld) 2.0 % Normal [facility] Comment on above: Order Comment: Speci men Type: BLOOD SPECIMENOrdering Facility: [facility] Address: [address] [place] [address] Performed By: #### 5 7021-8 ####MICHAEL LABORATORYCLIA [id number] [place] [address] [place] Lymphocytes (Bld) [#/Vol] 0.34 10*3/uL Low 1.00-4.00 [facility] Comment on above: Order Comment: Speci men Type: BLOOD SPECIMENOrdering Facility: [facility] Address: [address] [place] [address] Performed By: #### 5 7021-8 ####MICHAEL LABORATORYCLIA [id number] [place] [address] [place] Lymphocytes/100 WBC (Bld) 4.8 % Normal [facility] Comment on above: Order Comment: Speci men Type: BLOOD SPECIMENOrdering Facility: [facility] Address: [address] [place] [address] Performed By: #### 5 7021-8 ####MICHAEL LABORATORYCLIA [id number] [place] [address] [place] MCH (RBC) [Entitic mass] 30.3 pg Normal 26.0-34.0 [facility] Comment on above: Order Comment: Speci men Type: BLOOD SPECIMENOrdering Facility: [facility] Address: [address] [place] [address] Performed By: #### 5 7021-8 ####MICHAEL LABORATORYCLIA [id number] [place] [address] [place] MCHC (RBC) [Mass/Vol] 32.8 g/dL Normal 30.5-36.0 [facility] Comment on above: Order Comment: Speci men Type: BLOOD SPECIMENOrdering Facility: [facility] Address: [address] [place] [address] Performed By: #### 5 7021-8 ####MICHAEL LABORATORYCLIA [id number] [place] [address] [place] MCV (RBC) [Entitic vol] 92.3 fL Normal 80.0-100.0 [facility] Comment on above: Order Comment: Speci men Type: BLOOD SPECIMENOrdering Facility: [facility] Address: [address] [place] [address] Performed By: #### 5 7021-8 ####MICHAEL LABORATORYCLIA [id number] [place] [address] [place] Monocytes (Bld) [#/Vol] 0.56 10*3/uL Normal <0.87 [facility] Comment on above: Order Comment: Speci men Type: BLOOD SPECIMENOrdering Facility: [facility] Address: [address] [place] [address] Performed By: #### 5 7021-8 ####MICHAEL LABORATORYCLIA [id number] [place] [address] [place] Monocytes/100 WBC (Bld) 7.9 % Normal C [facility] Comment on above: Order Comment: Speci men Type: BLOOD SPECIMENOrdering Facility: [facility] Address: [address] [place] [address] Performed By: #### 5 7021-8 ####MICHAEL LABORATORYCLIA [id number] [place] [address] [place] Neutrophils (Bld) [#/Vol] 6.04 10*3/uL Normal 1.45-7.50 [facility] Comment on above: Order Comment: Speci men Type: BLOOD SPECIMENOrdering Facility: [facility] Address: [address] [place] [address] Performed By: #### 5 7021-8 ####MICHAEL LABORATORYCLIA [id number] [place] [address] [place] Neutrophils/100 WBC (Bld) 85.2 % Normal [facility] Comment on above: Order Comment: Speci men Type: BLOOD SPECIMENOrdering Facility: [facility] Address: [address] [place] [address] Performed By: #### 5 7021-8 ####MICHAEL LABORATORYCLIA [id number] [place] [address] [place] Nucleated RBC (Bld) [#/Vol] 10*3/uL Normal <0.01 [facility] Comment on above: Order Comment: Speci men Type: BLOOD SPECIMENOrdering Facility: [facility] Address: [address] [place] [address] Performed By: #### 5 7021-8 ####MICHAEL LABORATORYCLIA [id number] [place] [address] [place] Nucleated RBC/100 WBC (Bld) [Ratio] 0.0 /100 WBC Normal [facility] Comment on above: Order Comment: Speci men Type: BLOOD SPECIMENOrdering Facility: [facility] Address: [address] [place] [address] Performed By: #### 5 7021-8 ####MICHAEL LABORATORYCLIA [id number] [place] [address] [place] Platelet mean volume (Bld) [Entitic vol] 11.0 fL Normal 9.0-12.7 [facility] Comment on above: Order Comment: Speci men Type: BLOOD SPECIMENOrdering Facility: [facility] Address: [address] [place] [address] Performed By: #### 5 7021-8 ####MICHAEL LABORATORYCLIA [id number] [place] [address] [place] Platelets (Bld) [#/Vol] 148 10*3/uL Low 150-400 [facility] Comment on above: Order Comment: Speci men Type: BLOOD SPECIMENOrdering Facility: [facility] Address: [address] [place] [address] Performed By: #### 5 7021-8 ####MICHAEL LABORATORYCLIA [id number] [place] [address] [facility] RBC (Bld) [#/Vol] 4.00 10*6/uL Normal 3.90-5.20 [facility] Comment on above: Order Comment: Speci men Type: BLOOD SPECIMENOrdering Facility: [facility] Address: [address] [place] [address] Performed By: #### 5 7021-8 ####MICHAEL LABORATORYCLIA [id number] [place] [address] [facility] WBC (Bld) [#/Vol] 7.09 10*3/uL Normal 3.70-11.00 [facility] Comment on above: Order Comment: Speci men Type: BLOOD SPECIMENOrdering Facility: [facility] Address: [address] [place] [address] Performed By: #### 5 7021-8 ####MICHAEL LABORATORYCLIA [id number] [place] [address] [facility] Comprehensive metabolic 2000 panelon 11-13-2022 Albumin [Mass/Vol] 3.7 g/dL Low 3.9 - 4.9 g/dL [facility] ALP [Catalytic activity/Vol] 39 U/L 34 - 123 U/L [facility] ALT [Catalytic activity/Vol] 19 U/L 7 - 38 U/L [facility] Anion gap [Moles/Vol] 11 mmol/L 9 - 18 mmol/L [facility] AST [Catalytic activity/Vol] 14 U/L 13 - 35 U/L [facility] Bilirubin [Mass/Vol] 0.5 mg/dL 0.2 - 1 .3 mg/dL [facility] Calcium [Mass/Vol] 9.3 mg/dL 8.5 - 10. 2 mg/dL [facility] Chloride [Moles/Vol] 101 mmol/L 97 - 10 5 mmol/L [facility] CO2 [Moles/Vol] 26 mmol/L 22 - 30 mmol/L [facility] Creatinine [Mass/Vol] 0.85 mg/dL 0.58 - 0.96 mg/dL [facility] Estimated Glomerular Filtration Rate 70 mL/min/1.73m >=60 mL/min/1.7 3m [facility] Glucose [Mass/Vol] 98 mg/dL 74 - 99 mg/dL [facility] Potassium [Moles/Vol] 5.1 mmol/L 3.7 - 5.1 mmol/L [facility] Protein [Mass/Vol] 5.2 g/dL Low 6.3 - 8.0 g/dL [facility] Sodium [Moles/Vol] 138 mmol/L 136 - 144 mmol/L [facility] Urea nitrogen [Mass/Vol] 42 mg/dL High 7 - 21 mg/dL [facility] Albumin [Mass/Vol] 3.7 g/dL Low 3.9-4.9 [facility] Comment on above: Order Comment: Speci men Type: BLOOD SPECIMENOrdering Facility: [facility] Address: [address] [place] [address] Performed By: #### 2 4323-8 ####MICHAEL LABORATORYCLIA [id number] [place] [address] [place] ALP [Catalytic activity/Vol] 39 U/L Normal 34-123 [facility] Comment on above: Order Comment: Speci men Type: BLOOD SPECIMENOrdering Facility: [facility] Address: [address] [place] [address] Performed By: #### 2 4323-8 ####MICHAEL LABORATORYCLIA [id number] [place] [address] [place] ALT [Catalytic activity/Vol] 19 U/L Normal 7-38 [facility] Comment on above: Order Comment: Speci men Type: BLOOD SPECIMENOrdering Facility: [facility] Address: [address] [place] [address] Performed By: #### 2 4323-8 ####MICHAEL LABORATORYCLIA [id number] [place] [address] [place] Anion gap [Moles/Vol] 11 mmol/L Normal 9-18 [facility] Comment on above: Order Comment: Speci men Type: BLOOD SPECIMENOrdering Facility: [facility] Address: [address] [place] [address] Performed By: #### 2 4323-8 ####MICHAEL LABORATORYCLIA [id number] [place] [address] [place] AST [Catalytic activity/Vol] 14 U/L Normal 13-35 [facility] Comment on above: Order Comment: Speci men Type: BLOOD SPECIMENOrdering Facility: [facility] Address: [address] [place] [address] Performed By: #### 2 4323-8 ####MICHAEL LABORATORYCLIA [id number] [place] [address] [place] Bilirubin [Mass/Vol] 0.5 mg/dL Normal 0.2-1.3 [facility] Comment on above: Order Comment: Speci men Type: BLOOD SPECIMENOrdering Facility: [facility] Address: [address] [place] [address] Performed By: #### 2 4323-8 ####MICHAEL LABORATORYCLIA [id number] [place] [address] [place] Calcium [Mass/Vol] 9.3 mg/dL Normal 8.5-10.2 [facility] Comment on above: Order Comment: Speci men Type: BLOOD SPECIMENOrdering Facility: [facility] Address: [address] [place] [address] Performed By: #### 2 4323-8 ####MICHAEL LABORATORYCLIA [id number] [place] [address] [place] Chloride [Moles/Vol] 101 mmol/L Normal 97-105 [facility] Comment on above: Order Comment: Speci men Type: BLOOD SPECIMENOrdering Facility: [facility] Address: [address] [place] [address] Performed By: #### 2 4323-8 ####MICHAEL LABORATORYCLIA [id number] [place] [address] [place] CO2 [Moles/Vol] 26 mmol/L Normal 22-30 [facility] Comment on above: Order Comment: Speci men Type: BLOOD SPECIMENOrdering Facility: [facility] Address: [address] [place] [address] Performed By: #### 2 4323-8 ####MICHAEL LABORATORYCLIA [id number] [place] [address] [place] Creatinine [Mass/Vol] 0.85 mg/dL Normal 0.58-0.96 [facility] Comment on above: Order Comment: Speci men Type: BLOOD SPECIMENOrdering Facility: [facility] Address: [address] [place] [address] Performed By: #### 2 4323-8 ####MICHAEL LABORATORYCLIA [id number] [place] [address] [place] ESTIMATED GLOMERULAR FILTRATION RATE 70 mL/min/1.73m??? Normal >=60 [facility] Comment on above: Order Comment: Speci men Type: BLOOD SPECIMENOrdering Facility: [facility] Address: [address] [place] [address] Result Comment: Kim mated Glomerular Filtration Rate (eGFR) is calculated using the 2020 CKD-EPI creatinine equation. This equation utilizes serum creatinine, sex, and age as parameters. The creatinine assay has traceable calibration to isotope dilution-mass spectrometry. Refer to KDIGO guidelines for clinical interpretation. In patients with unstable renal function, e.g. those with acute kidney injury, the eGFR may not accurately reflect actual GFR. Performed By: #### 2 4323-8 ####MICHAEL LABORATORYCLIA [id number] [place] [address] [place] Glucose [Mass/Vol] 98 mg/dL Normal 74-99 [facility] Comment on above: Order Comment: Speci men Type: BLOOD SPECIMENOrdering Facility: [facility] Address: [address] [place] [address] Result Comment: The [place] [employer] (ADA) provides guidance for cutoff values for fasting glucose and random glucose. The ADA defines fasting as no caloric intake for at least 8 hours. Fasting plasma glucose results between 100 to 125 mg/dL indicate increased risk for diabetes (prediabetes).Fasting plasma glucose results greater than or equal to 126 mg/dL meet the criteria for diagnosis of diabetes. In the absence of unequivocal hyperglycemia, results should be confirmed by repeat testing. In a patient with classic symptoms of hyperglycemia or hyperglycemic crisis, random plasma glucose results greater than or equal to 200 mg/dL meet the criteria for diagnosis of diabetes.Reference: Standards of Medical Care in Diabetes 2016, [place] [employer]. Diabetes Care. 2016.39(Suppl 1). Performed By: #### 2 4323-8 ####MICHAEL LABORATORYCLIA [id number] [place] [address] [place] Potassium [Moles/Vol] 5.1 mmol/L Normal 3.7-5.1 [facility] Comment on above: Order Comment: Speci men Type: BLOOD SPECIMENOrdering Facility: [facility] Address: [address] [place] [address] Performed By: #### 2 4323-8 ####MICHAEL LABORATORYCLIA [id number] [place] [address] [place] Protein [Mass/Vol] 5.2 g/dL Low 6.3-8.0 [facility] Comment on above: Order Comment: Speci men Type: BLOOD SPECIMENOrdering Facility: [facility] Address: [address] [place] [address] Performed By: #### 2 4323-8 ####MICHAEL LABORATORYCLIA [id number] [place] [address] [place] Sodium [Moles/Vol] 138 mmol/L Normal 136-144 [facility] Comment on above: Order Comment: Speci men Type: BLOOD SPECIMENOrdering Facility: [facility] Address: [address] [place] [address] Performed By: #### 2 4323-8 ####MICHAEL LABORATORYCLIA [id number] [place] [address] [place] Urea nitrogen [Mass/Vol] 42 mg/dL High 7-21 [facility] Comment on above: Order Comment: Speci men Type: BLOOD SPECIMENOrdering Facility: [facility] Address: [address] [place] [address] Performed By: #### 2 4323-8 ####SAN JUAN LABORATORYIA [id number] [place] [address] [place] CBC W Auto Differential pane l (Bld)on 11-09-2022 Basophils (Bld) [#/Vol] <0.11 k/uL [facility] Basophils/100 WBC (Bld) 0.1 % [facility] Differential cell count method Nom (Bld) Auto [facility] Eosinophils (Bld) [#/Vol] <0.46 k/uL [facility] Eosinophils/100 WBC (Bld) 0.1 % [facility] Erythrocyte distribution width (RBC) [Ratio] 13.5 % 11.5 - 15.0 % [facility] Hematocrit (Bld) [Volume fraction] 38.5 % 36.0 - 46.0 % [facility] Hemoglobin (Bld) [Mass/Vol] 12.8 g/dL 11.5 - 15.5 g/dL [facility] Immature granulocytes (Bld) [#/Vol] 0.14 10*3/uL High <0.10 k/uL [facility] Immature granulocytes/100 WBC (Bld) 1.7 % [facility] Lymphocytes (Bld) [#/Vol] 0.42 10*3/uL Low 1.00 - 4.00 k/uL [facility] Lymphocytes/100 WBC (Bld) 5.1 % [facility] MCH (RBC) [Entitic mass] 29.9 pg 26.0 - 34.0 pg [facility] MCHC (RBC) [Mass/Vol] 33.2 g/dL 30.5 - 36.0 g/dL [facility] MCV (RBC) [Entitic vol] 90.0 fL 80.0 - 100.0 fL [facility] Monocytes (Bld) [#/Vol] 0.58 10*3/uL <0.87 k/uL [facility] Monocytes/100 WBC (Bld) 7.1 % C [facility] Neutrophils (Bld) [#/Vol] 7.01 10*3/uL 1.45 - 7.50 k/uL [facility] Neutrophils/100 WBC (Bld) 85.9 % [facility] Nucleated RBC (Bld) [#/Vol] <0.01 k/uL [facility] Nucleated RBC/100 WBC (Bld) [Ratio] 0.0 /100 WBC [facility] Platelet mean volume (Bld) [Entitic vol] 10.9 fL 9.0 - 12.7 fL [facility] Platelets (Bld) [#/Vol] 156 10*3/uL 150 - 400 k/uL [facility] RBC (Bld) [#/Vol] 4.28 10*6/uL 3.90 - 5.20 m/uL [facility] WBC (Bld) [#/Vol] 8.17 10*3/uL 3.70 - 11.00 k/uL [facility] Basophils (Bld) [#/Vol] 10*3/uL Normal <0.11 C [facility] Comment on above: Order Comment: Speci men Type: BLOOD SPECIMENOrdering Facility: [facility] Address: [address] [place] [address] Performed By: #### 5 7021-8 ####MICHAEL LABORATORYCLIA [id number] [place] [address] [place] Basophils/100 WBC (Bld) 0.1 % Normal [facility] Comment on above: Order Comment: Speci men Type: BLOOD SPECIMENOrdering Facility: [facility] Address: [address] [place] [address] Performed By: #### 5 7021-8 ####MICHAEL LABORATORYCLIA [id number] [place] [address] [place] Differential cell count method Nom (Bld) Auto Normal [facility] Comment on above: Order Comment: Speci men Type: BLOOD SPECIMENOrdering Facility: [facility] Address: [address] [place] [address] Performed By: #### 5 7021-8 ####MICHAEL LABORATORYCLIA [id number] [place] [address] [place] Eosinophils (Bld) [#/Vol] 10*3/uL Normal <0.46 [facility] Comment on above: Order Comment: Speci men Type: BLOOD SPECIMENOrdering Facility: [facility] Address: [address] [place] [address] Performed By: #### 5 7021-8 ####MICHAEL LABORATORYCLIA [id number] [place] [address] [place] Eosinophils/100 WBC (Bld) 0.1 % Normal [facility] Comment on above: Order Comment: Speci men Type: BLOOD SPECIMENOrdering Facility: [facility] Address: [address] [place] [address] Performed By: #### 5 7021-8 ####MICHAEL LABORATORYCLIA [id number] [place] [address] [place] Erythrocyte distribution width (RBC) [Ratio] 13.5 % Normal 11.5-15.0 [facility] Comment on above: Order Comment: Speci men Type: BLOOD SPECIMENOrdering Facility: [facility] Address: [address] [place] [address] Performed By: #### 5 7021-8 ####MICHAEL LABORATORYCLIA [id number] [place] [address] [place] Hematocrit (Bld) [Volume fraction] 38.5 % Normal 36.0-46.0 [facility] Comment on above: Order Comment: Speci men Type: BLOOD SPECIMENOrdering Facility: [facility] Address: [address] [place] [address] Performed By: #### 5 7021-8 ####MICHAEL LABORATORYCLIA [id number] [place] [address] [place] Hemoglobin (Bld) [Mass/Vol] 12.8 g/dL Normal 11.5-15.5 [facility] Comment on above: Order Comment: Speci men Type: BLOOD SPECIMENOrdering Facility: [facility] Address: [address] [place] [address] Performed By: #### 5 7021-8 ####MICHAEL LABORATORYCLIA [id number] [place] [address] [place] Immature granulocytes (Bld) [#/Vol] 0.14 10*3/uL High <0.10 [facility] Comment on above: Order Comment: Speci men Type: BLOOD SPECIMENOrdering Facility: [facility] Address: [address] [place] [address] Performed By: #### 5 7021-8 ####MICHAEL LABORATORYCLIA [id number] [place] [address] [place] Immature granulocytes/100 WBC (Bld) 1.7 % Normal [facility] Comment on above: Order Comment: Speci men Type: BLOOD SPECIMENOrdering Facility: [facility] Address: [address] [place] [address] Performed By: #### 5 7021-8 ####MICHAEL LABORATORYCLIA [id number] [place] [address] [place] Lymphocytes (Bld) [#/Vol] 0.42 10*3/uL Low 1.00-4.00 [facility] Comment on above: Order Comment: Speci men Type: BLOOD SPECIMENOrdering Facility: [facility] Address: [address] [place] [address] Performed By: #### 5 7021-8 ####MICHAEL LABORATORYCLIA [id number] [place] [address] [place] Lymphocytes/100 WBC (Bld) 5.1 % Normal [facility] Comment on above: Order Comment: Speci men Type: BLOOD SPECIMENOrdering Facility: [facility] Address: [address] [place] [address] Performed By: #### 5 7021-8 ####MICHAEL LABORATORYCLIA [id number] [place] [address] [place] MCH (RBC) [Entitic mass] 29.9 pg Normal 26.0-34.0 [facility] Comment on above: Order Comment: Speci men Type: BLOOD SPECIMENOrdering Facility: [facility] Address: [address] [place] [address] Performed By: #### 5 7021-8 ####MICHAEL LABORATORYCLIA [id number] [place] [address] [place] MCHC (RBC) [Mass/Vol] 33.2 g/dL Normal 30.5-36.0 [facility] Comment on above: Order Comment: Speci men Type: BLOOD SPECIMENOrdering Facility: [facility] Address: [address] [place] [address] Performed By: #### 5 7021-8 ####MICHAEL LABORATORYCLIA [id number] [place] [address] [place] MCV (RBC) [Entitic vol] 90.0 fL Normal 80.0-100.0 [facility] Comment on above: Order Comment: Speci men Type: BLOOD SPECIMENOrdering Facility: [facility] Address: [address] [place] [address] Performed By: #### 5 7021-8 ####MICHAEL LABORATORYCLIA [id number] [place] [address] [place] Monocytes (Bld) [#/Vol] 0.58 10*3/uL Normal <0.87 [facility] Comment on above: Order Comment: Speci men Type: BLOOD SPECIMENOrdering Facility: [facility] Address: [address] [place] [address] Performed By: #### 5 7021-8 ####MICHAEL LABORATORYCLIA [id number] [place] [address] [place] Monocytes/100 WBC (Bld) 7.1 % Normal C [facility] Comment on above: Order Comment: Speci men Type: BLOOD SPECIMENOrdering Facility: [facility] Address: [address] [place] [address] Performed By: #### 5 7021-8 ####MICHAEL LABORATORYCLIA [id number] [place] [address] [place] Neutrophils (Bld) [#/Vol] 7.01 10*3/uL Normal 1.45-7.50 [facility] Comment on above: Order Comment: Speci men Type: BLOOD SPECIMENOrdering Facility: [facility] Address: [address] [place] [address] Performed By: #### 5 7021-8 ####MICHAEL LABORATORYCLIA [id number] [place] [address] [place] Neutrophils/100 WBC (Bld) 85.9 % Normal [facility] Comment on above: Order Comment: Speci men Type: BLOOD SPECIMENOrdering Facility: [facility] Address: [address] [place] [address] Performed By: #### 5 7021-8 ####MICHAEL LABORATORYCLIA [id number] [place] [address] [place] Nucleated RBC (Bld) [#/Vol] 10*3/uL Normal <0.01 [facility] Comment on above: Order Comment: Speci men Type: BLOOD SPECIMENOrdering Facility: [facility] Address: [address] [place] [address] Performed By: #### 5 7021-8 ####MICHAEL LABORATORYCLIA [id number] [place] [address] [place] Nucleated RBC/100 WBC (Bld) [Ratio] 0.0 /100 WBC Normal [facility] Comment on above: Order Comment: Speci men Type: BLOOD SPECIMENOrdering Facility: [facility] Address: [address] [place] [address] Performed By: #### 5 7021-8 ####MICHAEL LABORATORYCLIA [id number] [place] [address] [place] Platelet mean volume (Bld) [Entitic vol] 10.9 fL Normal 9.0-12.7 [facility] Comment on above: Order Comment: Speci men Type: BLOOD SPECIMENOrdering Facility: [facility] Address: [address] [place] [address] Performed By: #### 5 7021-8 ####MICHAEL LABORATORYCLIA [id number] [place] [address] [place] Platelets (Bld) [#/Vol] 156 10*3/uL Normal 150-400 [facility] Comment on above: Order Comment: Speci men Type: BLOOD SPECIMENOrdering Facility: [facility] Address: [address] [place] [address] Performed By: #### 5 7021-8 ####MICHAEL LABORATORYCLIA [id number] [place] [address] [facility] RBC (Bld) [#/Vol] 4.28 10*6/uL Normal 3.90-5.20 [facility] Comment on above: Order Comment: Speci men Type: BLOOD SPECIMENOrdering Facility: [facility] Address: [address] [place] [address] Performed By: #### 5 7021-8 ####MICHAEL LABORATORYCLIA [id number] [place] [address] [facility] WBC (Bld) [#/Vol] 8.17 10*3/uL Normal 3.70-11.00 [facility] Comment on above: Order Comment: Speci men Type: BLOOD SPECIMENOrdering Facility: [facility] Address: [address] [place] [address] Performed By: #### 5 7021-8 ####MICHAEL LABORATORYCLIA [id number] [place] [address] [facility] Comprehensive metabolic 2000 panelon 11-09-2022 Albumin [Mass/Vol] 3.5 g/dL Low 3.9 - 4.9 g/dL [facility] ALP [Catalytic activity/Vol] 31 U/L Low 34 - 123 U/L [facility] ALT [Catalytic activity/Vol] 11 U/L 7 - 38 U/L [facility] Anion gap [Moles/Vol] 9 mmol/L 9 - 18 mmol/L [facility] AST [Catalytic activity/Vol] 10 U/L Low 13 - 35 U/L [facility] Bilirubin [Mass/Vol] 0.7 mg/dL 0.2 - 1 .3 mg/dL [facility] Calcium [Mass/Vol] 9.1 mg/dL 8.5 - 10. 2 mg/dL [facility] Chloride [Moles/Vol] 101 mmol/L 97 - 10 5 mmol/L [facility] CO2 [Moles/Vol] 27 mmol/L 22 - 30 mmol/L [facility] Creatinine [Mass/Vol] 0.75 mg/dL 0.58 - 0.96 mg/dL [facility] Estimated Glomerular Filtration Rate 81 mL/min/1.73m >=60 mL/min/1.7 3m [facility] Glucose [Mass/Vol] 94 mg/dL 74 - 99 mg/dL [facility] Potassium [Moles/Vol] 4.2 mmol/L 3.7 - 5.1 mmol/L [facility] Protein [Mass/Vol] 5.2 g/dL Low 6.3 - 8.0 g/dL [facility] Sodium [Moles/Vol] 137 mmol/L 136 - 144 mmol/L [facility] Urea nitrogen [Mass/Vol] 26 mg/dL High 7 - 21 mg/dL [facility] Albumin [Mass/Vol] 3.5 g/dL Low 3.9-4.9 [facility] Comment on above: Order Comment: Speci men Type: BLOOD SPECIMENOrdering Facility: [facility] Address: [address] [place] [address] Performed By: #### 2 4323-8 ####MICHAEL LABORATORYCLIA [id number] [place] [address] [place] ALP [Catalytic activity/Vol] 31 U/L Low 34-123 [facility] Comment on above: Order Comment: Speci men Type: BLOOD SPECIMENOrdering Facility: [facility] Address: [address] [place] [address] Performed By: #### 2 4323-8 ####MICHAEL LABORATORYCLIA [id number] [place] [id number] [place] ALT [Catalytic activity/Vol] 11 U/L Normal 7-38 [facility] Comment on above: Order Comment: Speci men Type: BLOOD SPECIMENOrdering Facility: [facility] Address: [address] [place] [address] Performed By: #### 2 4323-8 ####MICHAEL LABORATORYCLIA [id number] [place] [address] [place] Anion gap [Moles/Vol] 9 mmol/L Normal 9-18 [facility] Comment on above: Order Comment: Speci men Type: BLOOD SPECIMENOrdering Facility: [facility] Address: [address] [place] [address] Performed By: #### 2 4323-8 ####MICHAEL LABORATORYCLIA [id number] [place] [address] [place] AST [Catalytic activity/Vol] 10 U/L Low 13-35 [facility] Comment on above: Order Comment: Speci men Type: BLOOD SPECIMENOrdering Facility: [facility] Address: [address] [place] [address] Performed By: #### 2 4323-8 ####MICHAEL LABORATORYCLIA [id number] [place] [address] [place] Bilirubin [Mass/Vol] 0.7 mg/dL Normal 0.2-1.3 [facility] Comment on above: Order Comment: Speci men Type: BLOOD SPECIMENOrdering Facility: [facility] Address: [address] [place] [address] Performed By: #### 2 4323-8 ####MICHAEL LABORATORYCLIA [id number] [place] [address] [place] Calcium [Mass/Vol] 9.1 mg/dL Normal 8.5-10.2 [facility] Comment on above: Order Comment: Speci men Type: BLOOD SPECIMENOrdering Facility: [facility] Address: [address] [place] [address] Performed By: #### 2 4323-8 ####MICHAEL LABORATORYCLIA [id number] [place] [address] [place] Chloride [Moles/Vol] 101 mmol/L Normal 97-105 [facility] Comment on above: Order Comment: Speci men Type: BLOOD SPECIMENOrdering Facility: [facility] Address: [address] [place] [address] Performed By: #### 2 4323-8 ####MICHAEL LABORATORYCLIA [id number] [place] [address] [place] CO2 [Moles/Vol] 27 mmol/L Normal 22-30 [facility] Comment on above: Order Comment: Speci men Type: BLOOD SPECIMENOrdering Facility: [facility] Address: [address] [place] [address] Performed By: #### 2 4323-8 ####MICHAEL LABORATORYCLIA [id number] [place] [address] [place] Creatinine [Mass/Vol] 0.75 mg/dL Normal 0.58-0.96 [facility] Comment on above: Order Comment: Speci men Type: BLOOD SPECIMENOrdering Facility: [facility] Address: [address] [place] [address] Performed By: #### 2 4323-8 ####MICHAEL LABORATORYCLIA [id number] [place] [address] [place] ESTIMATED GLOMERULAR FILTRATION RATE 81 mL/min/1.73m??? Normal >=60 [facility] Comment on above: Order Comment: Speci men Type: BLOOD SPECIMENOrdering Facility: [facility] Address: [address] [place] [address] Result Comment: Kim mated Glomerular Filtration Rate (eGFR) is calculated using the 2020 CKD-EPI creatinine equation. This equation utilizes serum creatinine, sex, and age as parameters. The creatinine assay has traceable calibration to isotope dilution-mass spectrometry. Refer to KDIGO guidelines for clinical interpretation. In patients with unstable renal function, e.g. those with acute kidney injury, the eGFR may not accurately reflect actual GFR. Performed By: #### 2 4323-8 ####MICHAEL LABORATORYCLIA [id number] [place] [address] [place] Glucose [Mass/Vol] 94 mg/dL Normal 74-99 [facility] Comment on above: Order Comment: Speci men Type: BLOOD SPECIMENOrdering Facility: [facility] Address: [address] [place] [address] Result Comment: The [place] Diabetes Association (ADA) provides guidance for cutoff values for fasting glucose and random glucose. The ADA defines fasting as no caloric intake for at least 8 hours. Fasting plasma glucose results between 100 to 125 mg/dL indicate increased risk for diabetes (prediabetes).Fasting plasma glucose results greater than or equal to 126 mg/dL meet the criteria for diagnosis of diabetes. In the absence of unequivocal hyperglycemia, results should be confirmed by repeat testing. In a patient with classic symptoms of hyperglycemia or hyperglycemic crisis, random plasma glucose results greater than or equal to 200 mg/dL meet the criteria for diagnosis of diabetes.Reference: Standards of Medical Care in Diabetes 2016, [place] [employer] Association. Diabetes Care. 2016.39(Suppl 1). Performed By: #### 2 4323-8 ####MICHAEL LABORATORYCLIA [id number] [place] [address] [place] Potassium [Moles/Vol] 4.2 mmol/L Normal 3.7-5.1 [facility] Comment on above: Order Comment: Speci men Type: BLOOD SPECIMENOrdering Facility: [facility] Address: [address] [place] [address] Performed By: #### 2 4323-8 ####MICHAEL LABORATORYCLIA [id number] [place] [address] [place] Protein [Mass/Vol] 5.2 g/dL Low 6.3-8.0 [facility] Comment on above: Order Comment: Speci men Type: BLOOD SPECIMENOrdering Facility: [facility] Address: [address] [place] [address] Performed By: #### 2 4323-8 ####MICHAEL LABORATORYCLIA [id number] [place] [address] [place] Sodium [Moles/Vol] 137 mmol/L Normal 136-144 [facility] Comment on above: Order Comment: Speci men Type: BLOOD SPECIMENOrdering Facility: [facility] Address: [address] [place] [address] Performed By: #### 2 4323-8 ####MICHAEL LABORATORYCLIA [id number] [place] [address] [place] Urea nitrogen [Mass/Vol] 26 mg/dL High 7-21 [facility] Comment on above: Order Comment: Speci men Type: BLOOD SPECIMENOrdering Facility: [facility] Address: [address] [place] [address] Performed By: #### 2 4323-8 ####IMCHAEL LABORATORYCLIA [id number] [place] [address] [place] MAGNESIUM BLDon 11-09-2022 Magnesium [Mass/Vol] 2.1 mg/dL 1.7 - 2 .3 mg/dL [facility] Magnesium SerPl-mCncon 11-09 Magnesium [Mass/Vol] 2.1 mg/dL Normal 1.7-2.3 [facility] Comment on above: Order Comment: Speci men Type: BLOOD SPECIMENOrdering Facility: [facility] Address: [address] [place] [address] Performed By: #### 1 9123-9 ####[facility] LABORATORYCLIA [id number] [place] [address] [place] CNPNon 11-08-2022 CNPN Normal [facility] CASE MANAGEMon 11-07-2022 CASE MANAGEM Normal [facility] CASE MANAGEM Normal [facility] CBC W Auto Differential pane l (Bld)on 11-07-2022 Basophils (Bld) [#/Vol] 10*3/uL Normal <0.11 [facility] Comment on above: Order Comment: Speci men Type: BLOOD SPECIMENOrdering Facility: [facility] Address: [address] [place] [address] Performed By: #### 5 7021-8 ####[facility] LABCLIA [id number] [place] [address] [place] Basophils/100 WBC (Bld) 0.1 % Normal [facility] Comment on above: Order Comment: Speci men Type: BLOOD SPECIMENOrdering Facility: [facility] Address: [address] [place] [address] Performed By: #### 5 7021-8 ####[facility] LABCLIA [id number] [place] [address] [place] Differential cell count method Nom (Bld) Auto Normal [facility] Comment on above: Order Comment: Speci men Type: BLOOD SPECIMENOrdering Facility: [facility] Address: [address] Performed By: #### 5 7021-8 ####[facility] LABCLIA [id number] [place] [address] [place] [facility] [place] Eosinophils (Bld) [#/Vol] 0.06 10*3/uL Normal <0.46 [facility] Comment on above: Order Comment: Speci men Type: BLOOD SPECIMENOrdering Facility: [facility] Address: [address] Performed By: #### 5 7021-8 ####[facility] LABCLIA [id number] [place] [address] [place] Eosinophils/100 WBC (Bld) 0.4 % Normal [facility] Comment on above: Order Comment: Speci men Type: BLOOD SPECIMENOrdering Facility: [facility] Address: [address] [place], [place] [address] Performed By: #### 5 7021-8 ####[facility] LABCLIA [id number] [place] [address] [place] Erythrocyte distribution width (RBC) [Ratio] 13.3 % Normal 11.5-15.0 [facility] Comment on above: Order Comment: Speci men Type: BLOOD SPECIMENOrdering Facility: [facility] Address: [address] [place], [place] [address] Performed By: #### 5 7021-8 ####[facility] LABCLIA [id number] [address] [place] Hematocrit (Bld) [Volume fraction] 45.7 % Normal 36.0-46.0 [facility] Comment on above: Order Comment: Speci men Type: BLOOD SPECIMENOrdering Facility: [facility] Address: [address] Performed By: #### 5 7021-8 ####[facility] LABCLIA [id number] [place] [address] [place] Hemoglobin (Bld) [Mass/Vol] 15.1 g/dL Normal 11.5-15.5 [facility] Comment on above: Order Comment: Speci men Type: BLOOD SPECIMENOrdering Facility: [facility] Address: [address] [place] [address] Performed By: #### 5 7021-8 ####[facility] LABCLIA [id number] [place] [address] [place] Immature granulocytes (Bld) [#/Vol] 0.15 10*3/uL High <0.10 [facility] Comment on above: Order Comment: Speci men Type: BLOOD SPECIMENOrdering Facility: [facility] Address: [address] [place] [address] Performed By: #### 5 7021-8 ####[facility] LABCLIA [id number] [place] [address] [place] Immature granulocytes/100 WBC (Bld) 1.1 % Normal [facility] Comment on above: Order Comment: Speci men Type: BLOOD SPECIMENOrdering Facility: [facility] Address: [address] [place] [address] Performed By: #### 5 7021-8 ####[facility] LABCLIA [id number] [place] [address] [place] Lymphocytes (Bld) [#/Vol] 0.43 10*3/uL Low 1.00-4.00 [facility] Comment on above: Order Comment: Speci men Type: BLOOD SPECIMENOrdering Facility: [facility] Address: [address] [place] [address] Performed By: #### 5 7021-8 ####[facility] LABCLIA [id number] [place] [address] [place] Lymphocytes/100 WBC (Bld) 3.1 % Normal [facility] Comment on above: Order Comment: Speci men Type: BLOOD SPECIMENOrdering Facility: [facility] Address: [address] [place] [address] Performed By: #### 5 7021-8 ####[facility] LABIA [id number] [address] STATES OF [facility] MCH (RBC) [Entitic mass] 30.5 pg Normal 26.0-34.0 [facility] Comment on above: Order Comment: Speci men Type: BLOOD SPECIMENOrdering Facility: [facility] Address: [address] [place] [address] Performed By: #### 5 7021-8 ####[facility] [id number] [address] [place] MCHC (RBC) [Mass/Vol] 33.0 g/dL Normal 30.5-36.0 [facility] Comment on above: Order Comment: Speci men Type: BLOOD SPECIMENOrdering Facility: [facility] Address: [address] Performed By: #### 5 7021-8 ####[facility] LABIA [id number] [address] [place] MCV (RBC) [Entitic vol] 92.3 fL Normal 80.0-100.0 [facility] Comment on above: Order Comment: Speci men Type: BLOOD SPECIMENOrdering Facility: [facility] Address: [address] Performed By: #### 5 7021-8 ####[facility] [id number] [place] [address] [place] Monocytes (Bld) [#/Vol] 0.69 10*3/uL Normal <0.87 [facility] Comment on above: Order Comment: Speci men Type: BLOOD SPECIMENOrdering Facility: [facility] Address: [address] [place], [place] [address] Performed By: #### 5 7021-8 ####[facility] LABCLIA [id number] [place] [address] [place] Monocytes/100 WBC (Bld) 5.0 % Normal [facility] Comment on above: Order Comment: Speci men Type: BLOOD SPECIMENOrdering Facility: [facility] Address: [address] [place], [place] [address] Performed By: #### 5 7021-8 ####[facility] LABCLIA [id number] [place] [address] [place] Neutrophils (Bld) [#/Vol] 12.51 10*3/uL High 1.45-7.50 [facility] Comment on above: Order Comment: Speci men Type: BLOOD SPECIMENOrdering Facility: [facility] Address: [address] [place], [place] [address] Performed By: #### 5 7021-8 ####[facility] LABCLIA [id number] [place] [address] [place] Neutrophils/100 WBC (Bld) 90.3 % Normal [facility] Comment on above: Order Comment: Speci men Type: BLOOD SPECIMENOrdering Facility: [facility] Address: [address] [place], [place] [address] Performed By: #### 5 7021-8 ####[facility] LABCLIA [id number] [place] [address] [place] Nucleated RBC (Bld) [#/Vol] 10*3/uL Normal <0.01 [facility] Comment on above: Order Comment: Speci men Type: BLOOD SPECIMENOrdering Facility: [facility] Address: [address] [place], [place] [address] Performed By: #### 5 7021-8 ####[facility] LABCLIA [id number] [place] [address] [place] Nucleated RBC/100 WBC (Bld) [Ratio] 0.0 /100 WBC Normal [facility] Comment on above: Order Comment: Speci men Type: BLOOD SPECIMENOrdering Facility: [facility] Address: [address] [place], [place] [address] Performed By: #### 5 7021-8 ####[facility] LABCLIA [id number] [place] [address] [place] Platelet mean volume (Bld) [Entitic vol] 10.9 fL Normal 9.0-12.7 [facility] Comment on above: Order Comment: Speci men Type: BLOOD SPECIMENOrdering Facility: [facility] Address: [address] [place], [place] [address] Performed By: #### 5 7021-8 ####[facility] LABCLIA [id number] [place] [address] [place] Platelets (Bld) [#/Vol] 182 10*3/uL Normal 150-400 [facility] Comment on above: Order Comment: Speci men Type: BLOOD SPECIMENOrdering Facility: [facility] Address: [address] [place], [place] [address] Performed By: #### 5 7021-8 ####[facility] LABIA [id number] [place] [address] [place] RBC (Bld) [#/Vol] 4.95 10*6/uL Normal 3.90-5.20 [facility] Comment on above: Order Comment: Speci men Type: BLOOD SPECIMENOrdering Facility: [facility] Address: [address] [place], [place] [address] Performed By: #### 5 7021-8 ####[facility] LABCLIA [id number] [place] [address] [place] WBC (Bld) [#/Vol] 13.86 10*3/uL High 3.70-11.00 [facility] Comment on above: Order Comment: Speci men Type: BLOOD SPECIMENOrdering Facility: [facility] Address: [address] [place] [address] Performed By: #### 5 7021-8 ####[facility] LABCLIA [id number] [place] [address] [place] Basophils (Bld) [#/Vol] 10*3/uL Normal <0.11 [facility] Comment on above: Order Comment: Speci men Type: BLOOD SPECIMENOrdering Facility: [facility] Address: [address] [place] [address] Performed By: #### 5 7021-8 ####[facility] LABCLIA [id number] [place] [address] [place] Basophils/100 WBC (Bld) 0.1 % Normal [facility] Comment on above: Order Comment: Speci men Type: BLOOD SPECIMENOrdering Facility: [facility] Address: [address] [place] [address] Performed By: #### 5 7021-8 ####[facility] LABCLIA [id number] [place] [address] [place] Differential cell count method Nom (Bld) Auto Normal [facility] Comment on above: Order Comment: Speci men Type: BLOOD SPECIMENOrdering Facility: [facility] Address: [address] Performed By: #### 5 7021-8 ####[facility] LABCLIA [id number] [place] [address] [place] Eosinophils (Bld) [#/Vol] 0.19 10*3/uL Normal <0.46 [facility] Comment on above: Order Comment: Speci men Type: BLOOD SPECIMENOrdering Facility: [facility] Address: [address] [place], [place] [address] Performed By: #### 5 7021-8 ####[facility] LABCLIA [id number] [place] [address] [place] Eosinophils/100 WBC (Bld) 1.9 % Normal [facility] Comment on above: Order Comment: Speci men Type: BLOOD SPECIMENOrdering Facility: [facility] Address: [address] [place] [address] Performed By: #### 5 7021-8 ####[facility] LABIA [id number] [place] [address] [place] Erythrocyte distribution width (RBC) [Ratio] 13.3 % Normal 11.5-15.0 [facility] Comment on above: Order Comment: Speci men Type: BLOOD SPECIMENOrdering Facility: [facility] Address: [address] [place] [address] Performed By: #### 5 7021-8 ####[facility] LABIA [id number] [place] [address] [place] Hematocrit (Bld) [Volume fraction] 45.8 % Normal 36.0-46.0 [facility] Comment on above: Order Comment: Speci men Type: BLOOD SPECIMENOrdering Facility: [facility] Address: [address] [place], [place] [address] Performed By: #### 5 7021-8 ####[facility] LABIA [id number] [place] [address] [place] Hemoglobin (Bld) [Mass/Vol] 15.2 g/dL Normal 11.5-15.5 [facility] Comment on above: Order Comment: Speci men Type: BLOOD SPECIMENOrdering Facility: [facility] Address: [address] [place], [place] [address] Performed By: #### 5 7021-8 ####[facility] LABCLIA [id number] [place] [address] [place] Immature granulocytes (Bld) [#/Vol] 0.13 10*3/uL High <0.10 [facility] Comment on above: Order Comment: Speci men Type: BLOOD SPECIMENOrdering Facility: [facility] Address: [address] [place] [address] Performed By: #### 5 7021-8 ####[facility] LABCLIA [id number] [address] STATES [facility] Immature granulocytes/100 WBC (Bld) 1.3 % Normal [facility] Comment on above: Order Comment: Speci men Type: BLOOD SPECIMENOrdering Facility: [facility] Address: [address] Performed By: #### 5 7021-8 ####[facility] LABCLIA [id number] [place] [address] [place] Lymphocytes (Bld) [#/Vol] 0.53 10*3/uL Low 1.00-4.00 [facility] Comment on above: Order Comment: Speci men Type: BLOOD SPECIMENOrdering Facility: [facility] Address: [address] Performed By: #### 5 7021-8 ####[facility] LABCLIA [id number] [address] STATES [facility] Lymphocytes/100 WBC (Bld) 5.3 % Normal [facility] Comment on above: Order Comment: Speci men Type: BLOOD SPECIMENOrdering Facility: [facility] Address: [address] Performed By: #### 5 7021-8 ####[facility] LABCLIA [id number] [place] [address] [place] MCH (RBC) [Entitic mass] 30.3 pg Normal 26.0-34.0 [facility] Comment on above: Order Comment: Speci men Type: BLOOD SPECIMENOrdering Facility: [facility] Address: [address] Performed By: #### 5 7021-8 ####[facility] LABCLIA [id number] [place] [address] [place] MCHC (RBC) [Mass/Vol] 33.2 g/dL Normal 30.5-36.0 [facility] Comment on above: Order Comment: Speci men Type: BLOOD SPECIMENOrdering Facility: [facility] Address: [address] [place] [address] Performed By: #### 5 7021-8 ####[facility] LABIA [id number] [place] [address] [place] MCV (RBC) [Entitic vol] 91.4 fL Normal 80.0-100.0 [facility] Comment on above: Order Comment: Speci men Type: BLOOD SPECIMENOrdering Facility: [facility] Address: [address] [place] [address] Performed By: #### 5 7021-8 ####[facility] LABIA [id number] [address] [place] Monocytes (Bld) [#/Vol] 0.65 10*3/uL Normal <0.87 [facility] Comment on above: Order Comment: Speci men Type: BLOOD SPECIMENOrdering Facility: [facility] Address: [address] [place] [address] Performed By: #### 5 7021-8 ####[facility] LABIA [id number] [address] [place] Monocytes/100 WBC (Bld) 6.4 % Normal [facility] Comment on above: Order Comment: Speci men Type: BLOOD SPECIMENOrdering Facility: [facility] Address: [address] [place], [place] [address] Performed By: #### 5 7021-8 ####[facility] LABIA [id number] [place] [address] [place] Neutrophils (Bld) [#/Vol] 8.58 10*3/uL High 1.45-7.50 [facility] Comment on above: Order Comment: Speci men Type: BLOOD SPECIMENOrdering Facility: [facility] Address: [address] Performed By: #### 5 7021-8 ####[facility] LABCLIA [id number] [place] [address] [place] Neutrophils/100 WBC (Bld) 85.0 % Normal [facility] Comment on above: Order Comment: Speci men Type: BLOOD SPECIMENOrdering Facility: [facility] Address: [address] [place], [place] [address] Performed By: #### 5 7021-8 ####[facility] LABIA [id number] [place] [address] [place] Nucleated RBC (Bld) [#/Vol] 10*3/uL Normal <0.01 [facility] Comment on above: Order Comment: Speci men Type: BLOOD SPECIMENOrdering Facility: [facility] Address: [address] [place], [place] [address] Performed By: #### 5 7021-8 ####[facility] LABIA [id number] [place] [address] [place] Nucleated RBC/100 WBC (Bld) [Ratio] 0.0 /100 WBC Normal [facility] Comment on above: Order Comment: Speci men Type: BLOOD SPECIMENOrdering Facility: [facility] Address: [address] Performed By: #### 5 7021-8 ####[facility] LABIA [id number] [place] [address] [place] Platelet mean volume (Bld) [Entitic vol] 10.8 fL Normal 9.0-12.7 [facility] Comment on above: Order Comment: Speci men Type: BLOOD SPECIMENOrdering Facility: [facility] Address: [address] [place] [address] Performed By: #### 5 7021-8 ####[facility] LABIA [id number] [place] [address] [place] Platelets (Bld) [#/Vol] 172 10*3/uL Normal 150-400 [facility] Comment on above: Order Comment: Speci men Type: BLOOD SPECIMENOrdering Facility: [facility] Address: [address] Performed By: #### 5 7021-8 ####[facility] LABIA [id number] [place] [address] [place] RBC (Bld) [#/Vol] 5.01 10*6/uL Normal 3.90-5.20 [facility] Comment on above: Order Comment: Speci men Type: BLOOD SPECIMENOrdering Facility: [facility] Address: [address] Performed By: #### 5 7021-8 ####[facility] [id number] [place] [address] [place] WBC (Bld) [#/Vol] 10.09 10*3/uL Normal 3.70-11.00 [facility] Comment on above: Order Comment: Speci men Type: BLOOD SPECIMENOrdering Facility: [facility] Address: [address] [place] [address] Performed By: #### 5 7021-8 ####[facility] [id number] [place] [id number] [place] CNDSon 11-07-2022 CNDS Normal [facility] CONSULTon 11-07-2022 CONSULT Normal [facility] Comprehensive metabolic 2000 panelon 11-07-2022 Albumin [Mass/Vol] 3.7 g/dL Low 3.9-4.9 [facility] Comment on above: Order Comment: Speci men Type: BLOOD SPECIMENOrdering Facility: [facility] Address: [address] Performed By: #### 2 4323-8 ####[facility] LABCLIA [id number] [place] [address] [place] ALP [Catalytic activity/Vol] 44 U/L Normal 34-123 [facility] Comment on above: Order Comment: Speci men Type: BLOOD SPECIMENOrdering Facility: [facility] Address: [address] Performed By: #### 2 4323-8 ####[facility] LABCLIA [id number] [address] [place] ALT [Catalytic activity/Vol] 15 U/L Normal 7-38 [facility] Comment on above: Order Comment: Speci men Type: BLOOD SPECIMENOrdering Facility: [facility] Address: [address] [place], [place] [address] Performed By: #### 2 4323-8 ####[facility] LABCLIA [id number] [place] [address] [place] Anion gap [Moles/Vol] 9 mmol/L Normal 9-18 [facility] Comment on above: Order Comment: Speci men Type: BLOOD SPECIMENOrdering Facility: [facility] Address: [address] [place], [place] [address] Performed By: #### 2 4323-8 ####[facility] LABCLIA [id number] [place] [address] [place] AST [Catalytic activity/Vol] 9 U/L Low 13-35 [facility] Comment on above: Order Comment: Speci men Type: BLOOD SPECIMENOrdering Facility: [facility] Address: [address] [place], [place] [address] Performed By: #### 2 4323-8 ####[facility] LABCLIA [id number] [place] [address] [place] Bilirubin [Mass/Vol] 0.7 mg/dL Normal 0.2-1.3 [facility] Comment on above: Order Comment: Speci men Type: BLOOD SPECIMENOrdering Facility: [facility] Address: [address] [place], [place] [address] Performed By: #### 2 4323-8 ####[facility] LABCLIA [id number] [place] [address] [place] Calcium [Mass/Vol] 9.9 mg/dL Normal 8.5-10.2 [facility] Comment on above: Order Comment: Speci men Type: BLOOD SPECIMENOrdering Facility: [facility] Address: [address] [place], [place] [address] Performed By: #### 2 4323-8 ####[facility] LABCLIA [id number] [place] [address] [place] Chloride [Moles/Vol] 99 mmol/L Normal 97-105 [facility] Comment on above: Order Comment: Speci men Type: BLOOD SPECIMENOrdering Facility: [facility] Address: [address] [place], [place] [address] Performed By: #### 2 4323-8 ####[facility] LABCLIA [id number] [place] [address] [place] CO2 [Moles/Vol] 28 mmol/L Normal 22-30 [facility] Comment on above: Order Comment: Speci men Type: BLOOD SPECIMENOrdering Facility: [facility] Address: [address] [place], [place] [address] Performed By: #### 2 4323-8 ####[facility] LABCLIA [id number] [place] [address] [place] Creatinine [Mass/Vol] 0.71 mg/dL Normal 0.58-0.96 [facility] Comment on above: Order Comment: Speci men Type: BLOOD SPECIMENOrdering Facility: [facility] Address: [address] [address] Performed By: #### 2 4323-8 ####[facility] LABCLIA [id number] [place] [address] [place] [facility] ESTIMATED GLOMERULAR FILTRATION RATE 87 mL/min/1.73m??? Normal >=60 [facility] Comment on above: Order Comment: Kurt barraza Type: BLOOD SPECIMENOrdering Facility: [facility] Address: [address] [address] Result Comment: Kim mated Glomerular Filtration Rate (eGFR) is calculated using the 2020 CKD-EPI creatinine equation. This equation utilizes serum creatinine, sex, and age as parameters. The creatinine assay has traceable calibration to isotope dilution-mass spectrometry. Refer to KDIGO guidelines for clinical interpretation. In patients with unstable renal function, e.g. those with acute kidney injury, the eGFR may not accurately reflect actual GFR. Performed By: #### 2 4323-8 ####[facility] LABIA [id number] [place] [address] [place] Glucose [Mass/Vol] 109 mg/dL High 74-99 [facility] Comment on above: Order Comment: Kurt barraza Type: BLOOD SPECIMENOrdering Facility: [facility] Address: [address] [place] [address] Result Comment: The [place] Diabetes [employer] (ADA) provides guidance for cutoff values for fasting glucose and random glucose. The ADA defines fasting as no caloric intake for at least 8 hours. Fasting plasma glucose results between 100 to 125 mg/dL indicate increased risk for diabetes (prediabetes).Fasting plasma glucose results greater than or equal to 126 mg/dL meet the criteria for diagnosis of diabetes. In the absence of unequivocal hyperglycemia, results should be confirmed by repeat testing. In a patient with classic symptoms of hyperglycemia or hyperglycemic crisis, random plasma glucose results greater than or equal to 200 mg/dL meet the criteria for diagnosis of diabetes.Reference: Standards of Medical Care in Diabetes 2016, [place] [employer]. Diabetes Care. 2016.39(Suppl 1). Performed By: #### 2 4323-8 ####[facility] LABCLIA [id number] [place] [address] [place] Potassium [Moles/Vol] 3.8 mmol/L Normal 3.7-5.1 [facility] Comment on above: Order Comment: Speci men Type: BLOOD SPECIMENOrdering Facility: [facility] Address: [address] [place] [address] Performed By: #### 2 4323-8 ####[facility] LABCLIA [id number] [place] [address] [place] Protein [Mass/Vol] 5.8 g/dL Low 6.3-8.0 [facility] Comment on above: Order Comment: Speci men Type: BLOOD SPECIMENOrdering Facility: [facility] Address: [address] [place] [address] Performed By: #### 2 4323-8 ####[facility] LABCLIA [id number] [place] [address] [place] Sodium [Moles/Vol] 136 mmol/L Normal 136-144 [facility] Comment on above: Order Comment: Speci men Type: BLOOD SPECIMENOrdering Facility: [facility] Address: [address] [place] [address] Performed By: #### 2 4323-8 ####[facility] LABCLIA [id number] [place] [address] [place] Urea nitrogen [Mass/Vol] 30 mg/dL High 7-21 [facility] Comment on above: Order Comment: Speci men Type: BLOOD SPECIMENOrdering Facility: [facility] Address: [address] [place] [address] Performed By: #### 2 4323-8 ####[facility] LABCLIA [id number] [place] [address] [place] Albumin [Mass/Vol] 3.9 g/dL Normal 3.9-4.9 [facility] Comment on above: Order Comment: Speci men Type: BLOOD SPECIMENOrdering Facility: [facility] Address: [address] Performed By: #### 2 4323-8 ####[facility] LABCLIA [id number] [place] [address] [place] ALP [Catalytic activity/Vol] 46 U/L Normal 34-123 [facility] Comment on above: Order Comment: Speci men Type: BLOOD SPECIMENOrdering Facility: [facility] Address: [address] Performed By: #### 2 4323-8 ####[facility] LABCLIA [id number] [place] [address] [place] ALT [Catalytic activity/Vol] 14 U/L Normal 7-38 [facility] Comment on above: Order Comment: Speci men Type: BLOOD SPECIMENOrdering Facility: [facility] Address: [address] Performed By: #### 2 4323-8 ####[facility] LABCLIA [id number] [place] [address] [place] Anion gap [Moles/Vol] 13 mmol/L Normal 9-18 [facility] Comment on above: Order Comment: Speci men Type: BLOOD SPECIMENOrdering Facility: [facility] Address: [address] Performed By: #### 2 4323-8 ####[facility] LABCLIA [id number] [place] [address] [place] AST [Catalytic activity/Vol] 11 U/L Low 13-35 [facility] Comment on above: Order Comment: Speci men Type: BLOOD SPECIMENOrdering Facility: [facility] Address: [address] Performed By: #### 2 4323-8 ####[facility] LABCLIA [id number] [place] [address] [place] Bilirubin [Mass/Vol] 0.7 mg/dL Normal 0.2-1.3 [facility] Comment on above: Order Comment: Speci men Type: BLOOD SPECIMENOrdering Facility: [facility] Address: [address] [place] [address] Performed By: #### 2 4323-8 ####[facility] LABCLIA [id number] [place] [address] [place] Calcium [Mass/Vol] 10.0 mg/dL Normal 8.5-10.2 [facility] Comment on above: Order Comment: Speci men Type: BLOOD SPECIMENOrdering Facility: [facility] Address: [address] [place] [address] Performed By: #### 2 4323-8 ####[facility] LABCLIA [id number] [place] [address] [place] Chloride [Moles/Vol] 99 mmol/L Normal 97-105 [facility] Comment on above: Order Comment: Speci men Type: BLOOD SPECIMENOrdering Facility: [facility] Address: [address] [place] [address] Performed By: #### 2 4323-8 ####[facility] LABCLIA [id number] [place] [address] [place] CO2 [Moles/Vol] 26 mmol/L Normal 22-30 [facility] Comment on above: Order Comment: Speci men Type: BLOOD SPECIMENOrdering Facility: [facility] Address: [address] [place], [place] [address] Performed By: #### 2 4323-8 ####[facility] LABCLIA [id number] [place] [address] [place] Creatinine [Mass/Vol] 0.66 mg/dL Normal 0.58-0.96 [facility] Comment on above: Order Comment: Speci men Type: BLOOD SPECIMENOrdering Facility: [facility] Address: [address] [address] Performed By: #### 2 4323-8 ####[facility] LABIA [id number] [address] [place] ESTIMATED GLOMERULAR FILTRATION RATE 89 mL/min/1.73m??? Normal >=60 [facility] Comment on above: Order Comment: Kurt barraza Type: BLOOD SPECIMENOrdering Facility: [facility] Address: [address] [place] [address] Result Comment: Ikm mated Glomerular Filtration Rate (eGFR) is calculated using the 2020 CKD-EPI creatinine equation. This equation utilizes serum creatinine, sex, and age as parameters. The creatinine assay has traceable calibration to isotope dilution-mass spectrometry. Refer to KDIGO guidelines for clinical interpretation. In patients with unstable renal function, e.g. those with acute kidney injury, the eGFR may not accurately reflect actual GFR. Performed By: #### 2 4323-8 ####[facility] LABIA [id number] [place] [address] [place] Glucose [Mass/Vol] 79 mg/dL Normal 74-99 [facility] Comment on above: Order Comment: Kurt barraza Type: BLOOD SPECIMENOrdering Facility: [facility] Address: [address] [place] [address] Result Comment: The [place] Diabetes Association (ADA) provides guidance for cutoff values for fasting glucose and random glucose. The ADA defines fasting as no caloric intake for at least 8 hours. Fasting plasma glucose results between 100 to 125 mg/dL indicate increased risk for diabetes (prediabetes).Fasting plasma glucose results greater than or equal to 126 mg/dL meet the criteria for diagnosis of diabetes. In the absence of unequivocal hyperglycemia, results should be confirmed by repeat testing. In a patient with classic symptoms of hyperglycemia or hyperglycemic crisis, random plasma glucose results greater than or equal to 200 mg/dL meet the criteria for diagnosis of diabetes.Reference: Standards of Medical Care in Diabetes 2016, [place] [employer]. Diabetes Care. 2016.39(Suppl 1). Performed By: #### 2 4323-8 ####[facility] LABCLIA [id number] [place] [address] [place] Potassium [Moles/Vol] 4.0 mmol/L Normal 3.7-5.1 [facility] Comment on above: Order Comment: Speci men Type: BLOOD SPECIMENOrdering Facility: [facility] Address: [address] [address] Performed By: #### 2 4323-8 ####[facility] LABIA [id number] [place] [address] [place] Protein [Mass/Vol] 6.0 g/dL Low 6.3-8.0 [facility] Comment on above: Order Comment: Speci men Type: BLOOD SPECIMENOrdering Facility: [facility] Address: [address] [place] [address] Performed By: #### 2 4323-8 ####[facility] LABIA [id number] [place] [address] [place] Sodium [Moles/Vol] 138 mmol/L Normal 136-144 [facility] Comment on above: Order Comment: Speci men Type: BLOOD SPECIMENOrdering Facility: [facility] Address: [address] [place] [address] Performed By: #### 2 4323-8 ####[facility] LABIA [id number] [place] [address] [place] Urea nitrogen [Mass/Vol] 28 mg/dL High 7-21 [facility] Comment on above: Order Comment: Speci men Type: BLOOD SPECIMENOrdering Facility: [facility] Address: [address] [place], [place] [address] Performed By: #### 2 4323-8 ####[facility] LABIA [id number] [place] [address] [place] PT panel Coag (PPP)on 2022 INR Coag (PPP) [Relative time] 1.0 {INR} Normal 0.9-1.3 [facility] Comment on above: Order Comment: Kurt barraza Type: BLOOD SPECIMENOrdering Facility: [facility] Address: [address] [address] Result Comment: Milana min K Antagonist (VKA) Therapeutic Range: INR 2 to 3 (Target INR of 2.5)Note: For patients treated with VKA drugs, such as warfarin, the [place] [employer] 2012 Guideline recommends a therapeutic INR range of 2 to 3 (target INR of 2.5). This recommendation includes high-risk patients with antiphospholipid syndrome with previous arterial or venous thromboembolism, current-generation mechanical or bioprosthetic aortic heart valve replacement.Note: Patients with mechanical aortic valve replacement and additional risk factors for thromboembolic events (atrial fibrillation, previous thromboembolism, LV dysfunction, hypercoagulable conditions) or an older generation mechanical AVR (i.e., ball in-Cage) or any mechanical MVR should have a INR therapeutic range of 2.5 to 3.5 (target INR of 3).Funmilayo MATT, et al. Chest 2012, 141:7S-47SNishamber RA, et al. [facility] 2017, 70: 252-289 Performed By: #### 3 4528-0, 97965-7 ####[facility] LABIA [id number] [place] [address] [place] PT Coag (PPP) [Time] 10.1 s Normal 9.7-13.0 [facility] Comment on above: Order Comment: Kurt barraza Type: BLOOD SPECIMENOrdering Facility: [facility] Address: [address] [id number] Performed By: #### 3 4528-0, 79741-5 ####[facility] LABIA [id number] [place] [address] [place] TYPE + SCREENon 11-07-2022 ABO A Normal [facility] Comment on above: Order Comment: Kurt barraza Type: BLOOD SPECIMENOrdering Facility: [facility] Address: [address] [id number] Performed By: #### T SCR ####[facility] BLOOD BANKCLIA [id number] [address] HISTORICAL AB SCR STATUS Negative Normal [facility] Comment on above: Order Comment: Speci men Type: BLOOD SPECIMENOrdering Facility: [facility] Address: [address] [place] [address] Performed By: #### T SCR ####CC MAIN BLOOD BANKCLIA [id number] [address] [place] Rh Nom (Bld) Positive Normal [facility] Comment on above: Order Comment: Speci men Type: BLOOD SPECIMENOrdering Facility: [facility] Address: [address] [place] [address] Performed By: #### T SCR ####CC MAIN BLOOD BANKCLIA [id number] [address] OF [facility] TYPE AND SCREEN EXPIRATION 11/10/2022 23:59 Normal [facility] Comment on above: Order Comment: Speci men Type: BLOOD SPECIMENOrdering Facility: [facility] Address: [address] [place] [address] Performed By: #### T SCR ####CC MAIN BLOOD BANKCLIA [id number] [place] [address] [place] aPTT PPPon 11-07-2022 aPTT Coag (PPP) [Time] 23.1 s Normal 23.0-32.4 [facility] Comment on above: Order Comment: Speci men Type: BLOOD SPECIMENOrdering Facility: [facility] Address: [address] [place] [address] Performed By: #### 3 4528-0, 45204-3 ####[facility] LABCLIA [id number] [address] [place] CASE MGT INIT ASSESon 04-17- 2023 CASE MGT INIT ASSES Normal [facility] CBC W Auto Differential pane l (Bld)on 11-06-2022 Basophils (Bld) [#/Vol] 10*3/uL Normal <0.11 [facility] Comment on above: Order Comment: Speci men Type: BLOOD SPECIMENOrdering Facility: [facility] Address: [address] [place] [address] Performed By: #### 5 7021-8 ####[facility] LABCLIA [id number] [place] [address] [place] Basophils/100 WBC (Bld) 0.1 % Normal C [facility] Comment on above: Order Comment: Speci men Type: BLOOD SPECIMENOrdering Facility: [facility] Address: [address] [place] [address] Performed By: #### 5 7021-8 ####[facility] LABCLIA [id number] [place] [address] [place] Differential cell count method Nom (Bld) Auto Normal [facility] Comment on above: Order Comment: Speci men Type: BLOOD SPECIMENOrdering Facility: [facility] Address: [address] [place] [address] Performed By: #### 5 7021-8 ####[facility] LABCLIA [id number] [place] [address] [place] Eosinophils (Bld) [#/Vol] 10*3/uL Normal <0.46 [facility] Comment on above: Order Comment: Speci men Type: BLOOD SPECIMENOrdering Facility: [facility] Address: [address] [place], [place] [address] Performed By: #### 5 7021-8 ####[facility] LABCLIA [id number] [place] [address] [place] Eosinophils/100 WBC (Bld) 0.1 % Normal [facility] Comment on above: Order Comment: Speci men Type: BLOOD SPECIMENOrdering Facility: [facility] Address: [address] Performed By: #### 5 7021-8 ####[facility] LABIA [id number] [place] [address] [place] Erythrocyte distribution width (RBC) [Ratio] 13.2 % Normal 11.5-15.0 [facility] Comment on above: Order Comment: Speci men Type: BLOOD SPECIMENOrdering Facility: [facility] Address: [address] Performed By: #### 5 7021-8 ####[facility] LABIA [id number] [place] [address] [place] Hematocrit (Bld) [Volume fraction] 43.7 % Normal 36.0-46.0 [facility] Comment on above: Order Comment: Speci men Type: BLOOD SPECIMENOrdering Facility: [facility] Address: [address] [place], [place] [address] Performed By: #### 5 7021-8 ####[facility] LABIA [id number] [place] [address] [place] Hemoglobin (Bld) [Mass/Vol] 14.7 g/dL Normal 11.5-15.5 [facility] Comment on above: Order Comment: Speci men Type: BLOOD SPECIMENOrdering Facility: [facility] Address: [address] Performed By: #### 5 7021-8 ####[facility] LABIA [id number] [place] [address] [place] Immature granulocytes (Bld) [#/Vol] 0.12 10*3/uL High <0.10 [facility] Comment on above: Order Comment: Speci men Type: BLOOD SPECIMENOrdering Facility: [facility] Address: [address] [place], [place] [address] Performed By: #### 5 7021-8 ####[facility] LABCLIA [id number] [place] [address] [place] Immature granulocytes/100 WBC (Bld) 1.3 % Normal [facility] Comment on above: Order Comment: Speci men Type: BLOOD SPECIMENOrdering Facility: [facility] Address: [address] [place] [address] Performed By: #### 5 7021-8 ####[facility] LABCLIA [id number] [place] [address] [place] Lymphocytes (Bld) [#/Vol] 0.43 10*3/uL Low 1.00-4.00 [facility] Comment on above: Order Comment: Speci men Type: BLOOD SPECIMENOrdering Facility: [facility] Address: [address] [place] [address] Performed By: #### 5 7021-8 ####[facility] LABCLIA [id number] [place] [address] [place] Lymphocytes/100 WBC (Bld) 4.5 % Normal [facility] Comment on above: Order Comment: Speci men Type: BLOOD SPECIMENOrdering Facility: [facility] Address: [address] [place] [address] Performed By: #### 5 7021-8 ####[facility] LABCLIA [id number] [place] [address] [place] MCH (RBC) [Entitic mass] 30.0 pg Normal 26.0-34.0 [facility] Comment on above: Order Comment: Speci men Type: BLOOD SPECIMENOrdering Facility: [facility] Address: [address] [place], [place] [address] Performed By: #### 5 7021-8 ####[facility] LABCLIA [id number] [place] [address] [place] MCHC (RBC) [Mass/Vol] 33.6 g/dL Normal 30.5-36.0 [facility] Comment on above: Order Comment: Speci men Type: BLOOD SPECIMENOrdering Facility: [facility] Address: [address] [place], [place] [address] Performed By: #### 5 7021-8 ####[facility] LABCLIA [id number] [place] [address] [place] MCV (RBC) [Entitic vol] 89.2 fL Normal 80.0-100.0 C [facility] Comment on above: Order Comment: Speci men Type: BLOOD SPECIMENOrdering Facility: [facility] Address: [address] [place], [place] [address] Performed By: #### 5 7021-8 ####[facility] LABIA [id number] [place] [address] [place] Monocytes (Bld) [#/Vol] 0.59 10*3/uL Normal <0.87 [facility] Comment on above: Order Comment: Speci men Type: BLOOD SPECIMENOrdering Facility: [facility] Address: [address] [place], [place] [address] Performed By: #### 5 7021-8 ####[facility] LABIA [id number] [address] [place] Monocytes/100 WBC (Bld) 6.2 % Normal C [facility] Comment on above: Order Comment: Speci men Type: BLOOD SPECIMENOrdering Facility: [facility] Address: [address] [place], [place] [address] Performed By: #### 5 7021-8 ####[facility] LABIA [id number] [place] [address] [place] Neutrophils (Bld) [#/Vol] 8.34 10*3/uL High 1.45-7.50 [facility] Comment on above: Order Comment: Speci men Type: BLOOD SPECIMENOrdering Facility: [facility] Address: [address] [place], [place] [address] Performed By: #### 5 7021-8 ####[facility] LABCLIA [id number] [place] [address] [place] Neutrophils/100 WBC (Bld) 87.8 % Normal [facility] Comment on above: Order Comment: Speci men Type: BLOOD SPECIMENOrdering Facility: [facility] Address: [address] [place], [place] [address] Performed By: #### 5 7021-8 ####[facility] LABCLIA [id number] [place] [address] [place] Nucleated RBC (Bld) [#/Vol] 10*3/uL Normal <0.01 [facility] Comment on above: Order Comment: Speci men Type: BLOOD SPECIMENOrdering Facility: [facility] Address: [address] [place], [place] [address] Performed By: #### 5 7021-8 ####[facility] LABIA [id number] [place] [address] [place] Nucleated RBC/100 WBC (Bld) [Ratio] 0.0 /100 WBC Normal [facility] Comment on above: Order Comment: Speci men Type: BLOOD SPECIMENOrdering Facility: [facility] Address: [address] [place], [place] [address] Performed By: #### 5 7021-8 ####[facility] LABCLIA [id number] [place] [address] [place] Platelet mean volume (Bld) [Entitic vol] 10.9 fL Normal 9.0-12.7 [facility] Comment on above: Order Comment: Speci men Type: BLOOD SPECIMENOrdering Facility: [facility] Address: [address] [place], [place] [address] Performed By: #### 5 7021-8 ####[facility] LABIA [id number] [place] [address] [place] Platelets (Bld) [#/Vol] 171 10*3/uL Normal 150-400 [facility] [facility] Comment on above: Order Comment: Speci men Type: BLOOD SPECIMENOrdering Facility: [facility] Address: [address] [place], [place] [address] Performed By: #### 5 7021-8 ####[facility] LABCLIA [id number] [place] [address] [place] RBC (Bld) [#/Vol] 4.90 10*6/uL Normal 3.90-5.20 [facility] Comment on above: Order Comment: Speci men Type: BLOOD SPECIMENOrdering Facility: [facility] Address: [address] [place], [place] [address] Performed By: #### 5 7021-8 ####[facility] LABCLIA [id number] [place] [address] [place] WBC (Bld) [#/Vol] 9.50 10*3/uL Normal 3.70-11.00 [facility] Comment on above: Order Comment: Speci men Type: BLOOD SPECIMENOrdering Facility: [facility] Address: [address] [place], [place] [address] Performed By: #### 5 7021-8 ####[facility] LABCLIA [id number] [place] [address] [place] CONSULTon 11-06-2022 CONSULT Normal [facility] Comprehensive metabolic 2000 panelon 11-06-2022 Albumin [Mass/Vol] 3.9 g/dL Normal 3.9-4.9 [facility] Comment on above: Order Comment: Speci men Type: BLOOD SPECIMENOrdering Facility: [facility] Address: [address] [place], [place] [address] Performed By: #### 2 4323-8 ####[facility] LABCLIA [id number] [place] [address] [place] ALP [Catalytic activity/Vol] 46 U/L Normal 34-123 [facility] Comment on above: Order Comment: Speci men Type: BLOOD SPECIMENOrdering Facility: [facility] Address: [address] [address] Performed By: #### 2 4323-8 ####[facility] LABCLIA [id number] [place] [address] [place] ALT [Catalytic activity/Vol] 16 U/L Normal 7-38 [facility] Comment on above: Order Comment: Speci men Type: BLOOD SPECIMENOrdering Facility: [facility] Address: [address] [place] [address] Performed By: #### 2 4323-8 ####[facility] LABCLIA [id number] [place] [address] [place] Anion gap [Moles/Vol] 15 mmol/L Normal 9-18 [facility] Comment on above: Order Comment: Speci men Type: BLOOD SPECIMENOrdering Facility: [facility] Address: [address] [place] [address] Performed By: #### 2 4323-8 ####[facility] LABCLIA [id number] [place] [address] [place] AST [Catalytic activity/Vol] 14 U/L Normal 13-35 [facility] Comment on above: Order Comment: Speci men Type: BLOOD SPECIMENOrdering Facility: [facility] Address: [address] Performed By: #### 2 4323-8 ####[facility] LABCLIA [id number] [place] [address] [place] Bilirubin [Mass/Vol] 1.0 mg/dL Normal 0.2-1.3 [facility] Comment on above: Order Comment: Speci men Type: BLOOD SPECIMENOrdering Facility: [facility] Address: [address] [place], [place] [address] Performed By: #### 2 4323-8 ####[facility] LABCLIA [id number] [facility] [place] [address] [place] Calcium [Mass/Vol] 9.5 mg/dL Normal 8.5-10.2 [facility] Comment on above: Order Comment: Speci men Type: BLOOD SPECIMENOrdering Facility: [facility] Address: [address] [place], [place] [address] Performed By: #### 2 4323-8 ####[facility] LABCLIA [id number] [place] [address] [place] Chloride [Moles/Vol] 101 mmol/L Normal 97-105 [facility] Comment on above: Order Comment: Speci men Type: BLOOD SPECIMENOrdering Facility: [facility] Address: [address] Performed By: #### 2 4323-8 ####[facility] LABCLIA [id number] [place] [address] [place] CO2 [Moles/Vol] 21 mmol/L Low 22-30 [facility] Comment on above: Order Comment: Speci men Type: BLOOD SPECIMENOrdering Facility: [facility] Address: [address] [place] [address] Performed By: #### 2 4323-8 ####[facility] LABCLIA [id number] [place] [address] [place] Creatinine [Mass/Vol] 0.58 mg/dL Normal 0.58-0.96 [facility] Comment on above: Order Comment: Speci men Type: BLOOD SPECIMENOrdering Facility: [facility] Address: [address] [place] [address] Performed By: #### 2 4323-8 ####[facility] LABCLIA [id number] [place] [address] [place] ESTIMATED GLOMERULAR FILTRATION RATE 92 mL/min/1.73m??? Normal >=60 [facility] Comment on above: Order Comment: Kurt barraza Type: BLOOD SPECIMENOrdering Facility: [facility] Address: [address] [place] [address] Result Comment: [place] mated Glomerular Filtration Rate (eGFR) is calculated using the 2020 CKD-EPI creatinine equation. This equation utilizes serum creatinine, sex, and age as parameters. The creatinine assay has traceable calibration to isotope dilution-mass spectrometry. Refer to KDIGO guidelines for clinical interpretation. In patients with unstable renal function, e.g. those with acute kidney injury, the eGFR may not accurately reflect actual GFR. Performed By: #### 2 4323-8 ####[facility] [id number] [place] [address] [place] Glucose [Mass/Vol] 89 mg/dL Normal 74-99 [facility] Comment on above: Order Comment: Kurt barraza Type: BLOOD SPECIMENOrdering Facility: [facility] Address: [address] [place] [address] Result Comment: The [place] Diabetes Association (ADA) provides guidance for cutoff values for fasting glucose and random glucose. The ADA defines fasting as no caloric intake for at least 8 hours. Fasting plasma glucose results between 100 to 125 mg/dL indicate increased risk for diabetes (prediabetes).Fasting plasma glucose results greater than or equal to 126 mg/dL meet the criteria for diagnosis of diabetes. In the absence of unequivocal hyperglycemia, results should be confirmed by repeat testing. In a patient with classic symptoms of hyperglycemia or hyperglycemic crisis, random plasma glucose results greater than or equal to 200 mg/dL meet the criteria for diagnosis of diabetes.Reference: Standards of Medical Care in Diabetes 2016, [place] [employer] Association. Diabetes Care. 2016.39(Suppl 1). Performed By: #### 2 4323-8 ####[facility] [id number] [place] [address] [place] Potassium [Moles/Vol] 4.2 mmol/L Normal 3.7-5.1 [facility] Comment on above: Order Comment: Kurt barraza Type: BLOOD SPECIMENOrdering Facility: [facility] Address: [address] [address] Performed By: #### 2 4323-8 ####[facility] LABIA [id number] [place] [address] [place] Protein [Mass/Vol] 6.0 g/dL Low 6.3-8.0 [facility] Comment on above: Order Comment: Speci men Type: BLOOD SPECIMENOrdering Facility: [facility] Address: [address] [place] [address] Performed By: #### 2 4323-8 ####[facility] LABIA [id number] [place] [address] [place] Sodium [Moles/Vol] 137 mmol/L Normal 136-144 [facility] Comment on above: Order Comment: Speci men Type: BLOOD SPECIMENOrdering Facility: [facility] Address: [address] [place] [address] Performed By: #### 2 4323-8 ####[facility] LABIA [id number] [place] [address] [place] Urea nitrogen [Mass/Vol] 18 mg/dL Normal 7-21 [facility] Comment on above: Order Comment: Speci men Type: BLOOD SPECIMENOrdering Facility: [facility] Address: [address] [place] [address] Performed By: #### 2 4323-8 ####[facility] LABIA [id number] [place] [address] [place] NUTRITIONon 11-06-2022 NUTRITION Normal [facility] THERAPY NTon 11-06-2022 THERAPY NT Normal [facility] THERAPY NT Normal [facility] CBC W Auto Differential pane l (Bld)on 11-05-2022 Basophils (Bld) [#/Vol] 10*3/uL Normal <0.11 [facility] Comment on above: Order Comment: Speci men Type: BLOOD SPECIMENOrdering Facility: [facility] Address: [address] Performed By: #### 5 7021-8 ####[facility] LABCLIA [id number] [address] STATES [facility] Basophils/100 WBC (Bld) 0.1 % Normal [facility] Comment on above: Order Comment: Speci men Type: BLOOD SPECIMENOrdering Facility: [facility] Address: [address] [place], [place] [address] Performed By: #### 5 7021-8 ####[facility] LABCLIA [id number] [address] OF [facility] Differential cell count method Nom (Bld) Auto Normal [facility] Comment on above: Order Comment: Speci men Type: BLOOD SPECIMENOrdering Facility: [facility] Address: [address] [place], [place] [address] Performed By: #### 5 7021-8 ####[facility] LABCLIA [id number] [place] [address] [place] Eosinophils (Bld) [#/Vol] 10*3/uL Normal <0.46 [facility] Comment on above: Order Comment: Speci men Type: BLOOD SPECIMENOrdering Facility: [facility] Address: [address] [place], [place] [address] Performed By: #### 5 7021-8 ####[facility] LABCLIA [id number] [address] STATES [facility] Eosinophils/100 WBC (Bld) 0.2 % Normal [facility] Comment on above: Order Comment: Speci men Type: BLOOD SPECIMENOrdering Facility: [facility] Address: [address] [place], [place] [address] Performed By: #### 5 7021-8 ####[facility] LABCLIA [id number] [id number] [address] [place] Erythrocyte distribution width (RBC) [Ratio] 13.4 % Normal 11.5-15.0 [facility] Comment on above: Order Comment: Speci men Type: BLOOD SPECIMENOrdering Facility: [facility] Address: [address] [place] [address] Performed By: #### 5 7021-8 ####[facility] LABCLIA [id number] [place] [address] [place] Hematocrit (Bld) [Volume fraction] 40.7 % Normal 36.0-46.0 [facility] Comment on above: Order Comment: Speci men Type: BLOOD SPECIMENOrdering Facility: [facility] Address: [address] [place] [address] Performed By: #### 5 7021-8 ####[facility] LABCLIA [id number] [place] [address] [place] Hemoglobin (Bld) [Mass/Vol] 13.7 g/dL Normal 11.5-15.5 [facility] Comment on above: Order Comment: Speci men Type: BLOOD SPECIMENOrdering Facility: [facility] Address: [address] [place], [place] [address] Performed By: #### 5 7021-8 ####[facility] LABCLIA [id number] [place] [address] [place] Immature granulocytes (Bld) [#/Vol] 0.11 10*3/uL High <0.10 [facility] Comment on above: Order Comment: Speci men Type: BLOOD SPECIMENOrdering Facility: [facility] Address: [address] [place], [place] [address] Performed By: #### 5 7021-8 ####[facility] LABCLIA [id number] [place] [address] [place] Immature granulocytes/100 WBC (Bld) 1.0 % Normal [facility] Comment on above: Order Comment: Speci men Type: BLOOD SPECIMENOrdering Facility: [facility] Address: [address] Performed By: #### 5 7021-8 ####[facility] LABCLIA [id number] [place] [address] [place] [facility] Lymphocytes (Bld) [#/Vol] 0.27 10*3/uL Low 1.00-4.00 [facility] Comment on above: Order Comment: Speci men Type: BLOOD SPECIMENOrdering Facility: [facility] Address: [address] [address] Performed By: #### 5 7021-8 ####[facility] LABCLIA [id number] [address] [place] Lymphocytes/100 WBC (Bld) 2.6 % Normal [facility] Comment on above: Order Comment: Speci men Type: BLOOD SPECIMENOrdering Facility: [facility] Address: [address] [place], [place] [address] Performed By: #### 5 7021-8 ####[facility] LABCLIA [id number] [place] [address] [place] MCH (RBC) [Entitic mass] 30.2 pg Normal 26.0-34.0 [facility] Comment on above: Order Comment: Speci men Type: BLOOD SPECIMENOrdering Facility: [facility] Address: [address] Performed By: #### 5 7021-8 ####[facility] LABCLIA [id number] [place] [address] [place] MCHC (RBC) [Mass/Vol] 33.7 g/dL Normal 30.5-36.0 [facility] Comment on above: Order Comment: Speci men Type: BLOOD SPECIMENOrdering Facility: [facility] Address: [address] [place], [place] [address] Performed By: #### 5 7021-8 ####[facility] LABCLIA [id number] [place] [address] [place] MCV (RBC) [Entitic vol] 89.8 fL Normal 80.0-100.0 C [facility] Comment on above: Order Comment: Speci men Type: BLOOD SPECIMENOrdering Facility: [facility] Address: [address] [place] [address] Performed By: #### 5 7021-8 ####[facility] LABIA [id number] [place] [address] [place] Monocytes (Bld) [#/Vol] 0.38 10*3/uL Normal <0.87 [facility] Comment on above: Order Comment: Speci men Type: BLOOD SPECIMENOrdering Facility: [facility] Address: [address] [place] [address] Performed By: #### 5 7021-8 ####[facility] LABIA [id number] [place] [address] [place] Monocytes/100 WBC (Bld) 3.6 % Normal [facility] Comment on above: Order Comment: Speci men Type: BLOOD SPECIMENOrdering Facility: [facility] Address: [address] [place] [address] Performed By: #### 5 7021-8 ####[facility] LABIA [id number] [place] [address] [place] Neutrophils (Bld) [#/Vol] 9.78 10*3/uL High 1.45-7.50 [facility] Comment on above: Order Comment: Speci men Type: BLOOD SPECIMENOrdering Facility: [facility] Address: [address] [place], [place] [address] Performed By: #### 5 7021-8 ####[facility] LABIA [id number] [place] [address] [place] Neutrophils/100 WBC (Bld) 92.5 % Normal [facility] Comment on above: Order Comment: Speci men Type: BLOOD SPECIMENOrdering Facility: [facility] Address: [address] Performed By: #### 5 7021-8 ####[facility] LABIA [id number] [place] [address] [place] Nucleated RBC (Bld) [#/Vol] 10*3/uL Normal <0.01 [facility] Comment on above: Order Comment: Speci men Type: BLOOD SPECIMENOrdering Facility: [facility] Address: [address] Performed By: #### 5 7021-8 ####[facility] [id number] [place] [address] [place] Nucleated RBC/100 WBC (Bld) [Ratio] 0.0 /100 WBC Normal [facility] Comment on above: Order Comment: Speci men Type: BLOOD SPECIMENOrdering Facility: [facility] Address: [address] Performed By: #### 5 7021-8 ####[facility] [id number] [place] [address] [place] Platelet mean volume (Bld) [Entitic vol] 11.1 fL Normal 9.0-12.7 [facility] Comment on above: Order Comment: Speci men Type: BLOOD SPECIMENOrdering Facility: [facility] Address: [address] [place] [address] Performed By: #### 5 7021-8 ####[facility] [id number] [place] [address] [place] Platelets (Bld) [#/Vol] 150 10*3/uL Normal 150-400 [facility] Comment on above: Order Comment: Speci men Type: BLOOD SPECIMENOrdering Facility: [facility] Address: [address] [place] [address] Performed By: #### 5 7021-8 ####[facility] LABCLIA [id number] [place] [address] [place] RBC (Bld) [#/Vol] 4.53 10*6/uL Normal 3.90-5.20 [facility] Comment on above: Order Comment: Speci men Type: BLOOD SPECIMENOrdering Facility: [facility] Address: [address] [place], [place] [address] Performed By: #### 5 7021-8 ####[facility] LABCLIA [id number] [place] [address] [place] WBC (Bld) [#/Vol] 10.57 10*3/uL Normal 3.70-11.00 [facility] Comment on above: Order Comment: Speci men Type: BLOOD SPECIMENOrdering Facility: [facility] Address: [address] [place], [place] [address] Performed By: #### 5 7021-8 ####[facility] LABIA [id number] [place] [address] [place] Comprehensive metabolic 2000 panelon 11-05-2022 Albumin [Mass/Vol] 3.7 g/dL Low 3.9-4.9 [facility] Comment on above: Order Comment: Speci men Type: BLOOD SPECIMENOrdering Facility: [facility] Address: [address] [place] [address] Performed By: #### 2 4323-8 ####[facility] LABCLIA [id number] [place] [address] [place] ALP [Catalytic activity/Vol] 44 U/L Normal 34-123 [facility] Comment on above: Order Comment: Speci men Type: BLOOD SPECIMENOrdering Facility: [facility] Address: [address] [place], [place] [address] Performed By: #### 2 4323-8 ####[facility] LABCLIA [id number] [place] [address] [place] ALT [Catalytic activity/Vol] 17 U/L Normal 7-38 [facility] Comment on above: Order Comment: Speci men Type: BLOOD SPECIMENOrdering Facility: [facility] Address: [address] [place] [address] Performed By: #### 2 4323-8 ####[facility] LABCLIA [id number] [place] [address] [place] Anion gap [Moles/Vol] 15 mmol/L Normal 9-18 [facility] Comment on above: Order Comment: Speci men Type: BLOOD SPECIMENOrdering Facility: [facility] Address: [address] [place] [address] Performed By: #### 2 4323-8 ####[facility] LABCLIA [id number] [place] [address] [place] AST [Catalytic activity/Vol] 14 U/L Normal 13-35 [facility] Comment on above: Order Comment: Speci men Type: BLOOD SPECIMENOrdering Facility: [facility] Address: [address] [place], [place] [address] Performed By: #### 2 4323-8 ####[facility] LABCLIA [id number] [place] [address] [place] Bilirubin [Mass/Vol] 0.8 mg/dL Normal 0.2-1.3 [facility] Comment on above: Order Comment: Speci men Type: BLOOD SPECIMENOrdering Facility: [facility] Address: [address] [place], [place] [address] Performed By: #### 2 4323-8 ####[facility] LABCLIA [id number] [place] [address] [place] Calcium [Mass/Vol] 9.1 mg/dL Normal 8.5-10.2 [facility] Comment on above: Order Comment: Speci men Type: BLOOD SPECIMENOrdering Facility: [facility] Address: [address] Performed By: #### 2 4323-8 ####[facility] LABCLIA [id number] [place] [address] [place] Chloride [Moles/Vol] 100 mmol/L Normal 97-105 [facility] Comment on above: Order Comment: Speci men Type: BLOOD SPECIMENOrdering Facility: [facility] Address: [address] [address] Performed By: #### 2 4323-8 ####[facility] LABCLIA [id number] [place] [address] [place] CO2 [Moles/Vol] 20 mmol/L Low 22-30 [facility] Comment on above: Order Comment: Speci men Type: BLOOD SPECIMENOrdering Facility: [facility] Address: [address] [place] [address] Performed By: #### 2 4323-8 ####[facility] LABIA [id number] [place] [address] [place] Creatinine [Mass/Vol] 0.66 mg/dL Normal 0.58-0.96 [facility] Comment on above: Order Comment: Speci men Type: BLOOD SPECIMENOrdering Facility: [facility] Address: [address] [place] [address] Performed By: #### 2 4323-8 ####[facility] LABCLIA [id number] [place] [address] [place] ESTIMATED GLOMERULAR FILTRATION RATE 89 mL/min/1.73m??? Normal >=60 [facility] Comment on above: Order Comment: Speci men Type: BLOOD SPECIMENOrdering Facility: [facility] Address: [address] [place] [address] Result Comment: Kim mated Glomerular Filtration Rate (eGFR) is calculated using the 2020 CKD-EPI creatinine equation. This equation utilizes serum creatinine, sex, and age as parameters. The creatinine assay has traceable calibration to isotope dilution-mass spectrometry. Refer to KDIGO guidelines for clinical interpretation. In patients with unstable renal function, e.g. those with acute kidney injury, the eGFR may not accurately reflect actual GFR. Performed By: #### 2 4323-8 ####[facility] LABCLIA [id number] [place] [address] [place] Glucose [Mass/Vol] 99 mg/dL Normal 74-99 [facility] Comment on above: Order Comment: Kurt barraza Type: BLOOD SPECIMENOrdering Facility: [facility] Address: [address] [id number] Result Comment: The [place] Diabetes [employer] (ADA) provides guidance for cutoff values for fasting glucose and random glucose. The ADA defines fasting as no caloric intake for at least 8 hours. Fasting plasma glucose results between 100 to 125 mg/dL indicate increased risk for diabetes (prediabetes).Fasting plasma glucose results greater than or equal to 126 mg/dL meet the criteria for diagnosis of diabetes. In the absence of unequivocal hyperglycemia, results should be confirmed by repeat testing. In a patient with classic symptoms of hyperglycemia or hyperglycemic crisis, random plasma glucose results greater than or equal to 200 mg/dL meet the criteria for diagnosis of diabetes.Reference: Standards of Medical Care in Diabetes 2016, [place] [employer]. Diabetes Care. 2016.39(Suppl 1). Performed By: #### 2 4323-8 ####[facility] LABCLIA [id number] [place] [address] [place] Potassium [Moles/Vol] 4.0 mmol/L Normal 3.7-5.1 [facility] Comment on above: Order Comment: Kurt barraza Type: BLOOD SPECIMENOrdering Facility: [facility] Address: [address] [place] [address] Performed By: #### 2 4323-8 ####[facility] LABCLIA [id number] [address] [address] [place] Protein [Mass/Vol] 6.0 g/dL Low 6.3-8.0 [facility] Comment on above: Order Comment: Speci men Type: BLOOD SPECIMENOrdering Facility: [facility] Address: [address] [address] Performed By: #### 2 4323-8 ####[facility] LABCLIA [id number] [place] [address] [place] Sodium [Moles/Vol] 135 mmol/L Low 136-144 [facility] Comment on above: Order Comment: Speci men Type: BLOOD SPECIMENOrdering Facility: [facility] Address: [address] [place] [address] Performed By: #### 2 4323-8 ####[facility] LABCLIA [id number] [place] [address] [place] Urea nitrogen [Mass/Vol] 21 mg/dL Normal 7-21 [facility] Comment on above: Order Comment: Speci men Type: BLOOD SPECIMENOrdering Facility: [facility] Address: [address] [place] [address] Performed By: #### 2 4323-8 ####[facility] LABIA [id number] [place] [address] [place] CBC W Auto Differential pane l (Bld)on 11-04-2022 Basophils (Bld) [#/Vol] 10*3/uL Normal <0.11 [facility] Comment on above: Order Comment: Speci men Type: BLOOD SPECIMENOrdering Facility: [facility] Address: [address] [address] Performed By: #### 5 7021-8 ####[facility] LABIA [id number] [place] [address] [place] Basophils/100 WBC (Bld) 0.1 % Normal [facility] Comment on above: Order Comment: Speci men Type: BLOOD SPECIMENOrdering Facility: [facility] Address: [address] [place] [address] Performed By: #### 5 7021-8 ####[facility] LABCLIA [id number] [address] [place] Differential cell count method Nom (Bld) Auto Normal [facility] Comment on above: Order Comment: Speci men Type: BLOOD SPECIMENOrdering Facility: [facility] Address: [address] [place], [place] [address] Performed By: #### 5 7021-8 ####[facility] LABCLIA [id number] [place] [address] [place] Eosinophils (Bld) [#/Vol] 10*3/uL Normal <0.46 [facility] Comment on above: Order Comment: Speci men Type: BLOOD SPECIMENOrdering Facility: [facility] Address: [address] [place], [place] [address] Performed By: #### 5 7021-8 ####[facility] LABCLIA [id number] [address] [place] Eosinophils/100 WBC (Bld) 0.0 % Normal [facility] Comment on above: Order Comment: Speci men Type: BLOOD SPECIMENOrdering Facility: [facility] Address: [address] [place] [address] Performed By: #### 5 7021-8 ####[facility] LABIA [id number] [place] [address] [place] Erythrocyte distribution width (RBC) [Ratio] 13.4 % Normal 11.5-15.0 [facility] Comment on above: Order Comment: Speci men Type: BLOOD SPECIMENOrdering Facility: [facility] Address: [address] [place] [address] Performed By: #### 5 7021-8 ####[facility] LABCLIA [id number] [address] [place] Hematocrit (Bld) [Volume fraction] 41.7 % Normal 36.0-46.0 [facility] Comment on above: Order Comment: Speci men Type: BLOOD SPECIMENOrdering Facility: [facility] Address: [address] [place], [place] [address] Performed By: #### 5 7021-8 ####[facility] LABCLIA [id number] [place] [address] [place] Hemoglobin (Bld) [Mass/Vol] 14.0 g/dL Normal 11.5-15.5 [facility] Comment on above: Order Comment: Speci men Type: BLOOD SPECIMENOrdering Facility: [facility] Address: [address] [place] [address] Performed By: #### 5 7021-8 ####[facility] LABCLIA [id number] [place] [address] [place] Immature granulocytes (Bld) [#/Vol] 0.19 10*3/uL High <0.10 [facility] Comment on above: Order Comment: Speci men Type: BLOOD SPECIMENOrdering Facility: [facility] Address: [address] [place] [address] Performed By: #### 5 7021-8 ####[facility] LABIA [id number] [place] [address] [place] Immature granulocytes/100 WBC (Bld) 1.5 % Normal [facility] Comment on above: Order Comment: Speci men Type: BLOOD SPECIMENOrdering Facility: [facility] Address: [address] [place] [address] Performed By: #### 5 7021-8 ####[facility] LABIA [id number] [place] [address] [place] Lymphocytes (Bld) [#/Vol] 0.22 10*3/uL Low 1.00-4.00 [facility] Comment on above: Order Comment: Speci men Type: BLOOD SPECIMENOrdering Facility: [facility] Address: [address] Performed By: #### 5 7021-8 ####[facility] LABIA [id number] [address] STATES OF [facility] Lymphocytes/100 WBC (Bld) 1.8 % Normal [facility] Comment on above: Order Comment: Speci men Type: BLOOD SPECIMENOrdering Facility: [facility] Address: [address] [place] [address] Performed By: #### 5 7021-8 ####[facility] LABIA [id number] [place] [address] [place] MCH (RBC) [Entitic mass] 30.3 pg Normal 26.0-34.0 [facility] Comment on above: Order Comment: Speci men Type: BLOOD SPECIMENOrdering Facility: [facility] Address: [address] [place], [place] [address] Performed By: #### 5 7021-8 ####[facility] LABIA [id number] [place] [address] [place] MCHC (RBC) [Mass/Vol] 33.6 g/dL Normal 30.5-36.0 [facility] Comment on above: Order Comment: Speci men Type: BLOOD SPECIMENOrdering Facility: [facility] Address: [address] [place], [place] [address] Performed By: #### 5 7021-8 ####[facility] LABIA [id number] [address] [place] MCV (RBC) [Entitic vol] 90.3 fL Normal 80.0-100.0 C [facility] Comment on above: Order Comment: Speci men Type: BLOOD SPECIMENOrdering Facility: [facility] Address: [address] [place], [place] [address] Performed By: #### 5 7021-8 ####[facility] LABIA [id number] [place] [address] [place] Monocytes (Bld) [#/Vol] 0.62 10*3/uL Normal <0.87 [facility] Comment on above: Order Comment: Speci men Type: BLOOD SPECIMENOrdering Facility: [facility] Address: [address] [place] [address] Performed By: #### 5 7021-8 ####[facility] LABCLIA [id number] [place] [address] [place] Monocytes/100 WBC (Bld) 5.0 % Normal [facility] Comment on above: Order Comment: Speci men Type: BLOOD SPECIMENOrdering Facility: [facility] Address: [address] [place] [address] Performed By: #### 5 7021-8 ####[facility] LABCLIA [id number] [place] [address] [place] Neutrophils (Bld) [#/Vol] 11.35 10*3/uL High 1.45-7.50 [facility] Comment on above: Order Comment: Speci men Type: BLOOD SPECIMENOrdering Facility: [facility] Address: [address] [place] [address] Performed By: #### 5 7021-8 ####[facility] LABCLIA [id number] [place] [address] [place] Neutrophils/100 WBC (Bld) 91.6 % Normal [facility] Comment on above: Order Comment: Speci men Type: BLOOD SPECIMENOrdering Facility: [facility] Address: [address] [place] [address] Performed By: #### 5 7021-8 ####[facility] LABCLIA [id number] [place] [address] [place] Nucleated RBC (Bld) [#/Vol] 10*3/uL Normal <0.01 [facility] Comment on above: Order Comment: Speci men Type: BLOOD SPECIMENOrdering Facility: [facility] Address: [address] Performed By: #### 5 7021-8 ####[facility] LABIA [id number] [place] [address] [place] Nucleated RBC/100 WBC (Bld) [Ratio] 0.0 /100 WBC Normal [facility] Comment on above: Order Comment: Speci men Type: BLOOD SPECIMENOrdering Facility: [facility] Address: [address] Performed By: #### 5 7021-8 ####[facility] LABIA [id number] [place] [address] [place] Platelet mean volume (Bld) [Entitic vol] 11.1 fL Normal 9.0-12.7 [facility] Comment on above: Order Comment: Speci men Type: BLOOD SPECIMENOrdering Facility: [facility] Address: [address] [place] [address] Performed By: #### 5 7021-8 ####[facility] LABIA [id number] [place] [address] [place] Platelets (Bld) [#/Vol] 187 10*3/uL Normal 150-400 [facility] Comment on above: Order Comment: Speci men Type: BLOOD SPECIMENOrdering Facility: [facility] Address: [address] [place] [address] Performed By: #### 5 7021-8 ####[facility] LABIA [id number] [place] [address] [place] RBC (Bld) [#/Vol] 4.62 10*6/uL Normal 3.90-5.20 [facility] Comment on above: Order Comment: Speci men Type: BLOOD SPECIMENOrdering Facility: [facility] Address: [address] [place] [address] Performed By: #### 5 7021-8 ####[facility] LABCLIA [id number] [place] [address] [place] WBC (Bld) [#/Vol] 12.39 10*3/uL High 3.70-11.00 [facility] Comment on above: Order Comment: Speci men Type: BLOOD SPECIMENOrdering Facility: [facility] Address: [address] [place] [address] Performed By: #### 5 7021-8 ####[facility] LABCLIA [id number] [place] [address] [place] BRAIN WO IVCONon 11-05-19 CT BRAIN WO IVCON Normal [facility] metabolic 2000 panelon 11-04-2022 Albumin [Mass/Vol] 3.8 g/dL Low 3.9-4.9 [facility] Comment on above: Order Comment: Speci men Type: BLOOD SPECIMENOrdering Facility: [facility] Address: [address] [place], [place] [address] Performed By: #### 2 4323-8, 84434-3, 2777-1, 3016-3 ####[facility] LABIA [id number] [place] [address] [place] ALP [Catalytic activity/Vol] 47 U/L Normal 34-123 [facility] Comment on above: Order Comment: Speci men Type: BLOOD SPECIMENOrdering Facility: [facility] Address: [address] Performed By: #### 2 4323-8, 47000-2, 2777-1, 3016-3 ####[facility] LABCLIA [id number] [place] [address] [place] ALT [Catalytic activity/Vol] 15 U/L Normal 7-38 [facility] Comment on above: Order Comment: Speci men Type: BLOOD SPECIMENOrdering Facility: [facility] Address: [address] [place] [address] Performed By: #### 2 4323-8, 57295-8, 2777-1, 3016-3 ####[facility] LABCLIA [id number] [place] [address] [place] Anion gap [Moles/Vol] 11 mmol/L Normal 9-18 [facility] Comment on above: Order Comment: Speci men Type: BLOOD SPECIMENOrdering Facility: [facility] Address: [address] [place] [address] Performed By: #### 2 4323-8, 51121-0, 2777-1, 3016-3 ####[facility] LABCLIA [id number] [place] [address] [place] AST [Catalytic activity/Vol] 9 U/L Low 13-35 [facility] Comment on above: Order Comment: Speci men Type: BLOOD SPECIMENOrdering Facility: [facility] Address: [address] [place] [address] Performed By: #### 2 4323-8, 25519-2, 2777-1, 3016-3 ####[facility] LABCLIA [id number] [place] [address] [place] Bilirubin [Mass/Vol] 0.6 mg/dL Normal 0.2-1.3 [facility] Comment on above: Order Comment: Speci men Type: BLOOD SPECIMENOrdering Facility: [facility] Address: [address] [place] [address] Performed By: #### 2 4323-8, 85924-8, 2777-1, 3016-3 ####[facility] LABCLIA [id number] [place] [address] [place] Calcium [Mass/Vol] 9.0 mg/dL Normal 8.5-10.2 [facility] Comment on above: Order Comment: Speci men Type: BLOOD SPECIMENOrdering Facility: [facility] Address: [address] [place], [place] [address] Performed By: #### 2 4323-8, 32230-9, 2777-1, 3016-3 ####[facility] LABCLIA [id number] [place] [address] [place] Chloride [Moles/Vol] 102 mmol/L Normal 97-105 [facility] Comment on above: Order Comment: Speci men Type: BLOOD SPECIMENOrdering Facility: [facility] Address: [address] [place], [place] [address] Performed By: #### 2 4323-8, 62848-1, 2777-1, 3016-3 ####[facility] LABCLIA [id number] [place] [address] [place] CO2 [Moles/Vol] 22 mmol/L Normal 22-30 [facility] Comment on above: Order Comment: Speci men Type: BLOOD SPECIMENOrdering Facility: [facility] Address: [address] [place], [place] [address] Performed By: #### 2 4323-8, 76614-0, 277-1, 3016-3 ####[facility] LABCLIA [id number] [place] [address] [place] Creatinine [Mass/Vol] 0.65 mg/dL Normal 0.58-0.96 [facility] Comment on above: Order Comment: Speci men Type: BLOOD SPECIMENOrdering Facility: [facility] Address: [address] [place], [place] [address] Performed By: #### 2 4323-8, 65682-4, 2777-1, 3016-3 ####[facility] LABCLIA [id number] [place] [address] [place] ESTIMATED GLOMERULAR FILTRATION RATE 90 mL/min/1.73m??? Normal >=60 [facility] Comment on above: Order Comment: Speci men Type: BLOOD SPECIMENOrdering Facility: [facility] Address: [facility] [place] [address] Result Comment: Kim mated Glomerular Filtration Rate (eGFR) is calculated using the 2020 CKD-EPI creatinine equation. This equation utilizes serum creatinine, sex, and age as parameters. The creatinine assay has traceable calibration to isotope dilution-mass spectrometry. Refer to KDIGO guidelines for clinical interpretation. In patients with unstable renal function, e.g. those with acute kidney injury, the eGFR may not accurately reflect actual GFR. Performed By: #### 2 4323-8, 98363-0, 2776-1, 6-3 ####[facility] LABIA [id number] [place] [id number] [place] Glucose [Mass/Vol] 114 mg/dL High 74-99 [facility] Comment on above: Order Comment: Kurt barraza Type: BLOOD SPECIMENOrdering Facility: [facility] Address: [address] [address] Result Comment: The [place] Diabetes Association (ADA) provides guidance for cutoff values for fasting glucose and random glucose. The ADA defines fasting as no caloric intake for at least 8 hours. Fasting plasma glucose results between 100 to 125 mg/dL indicate increased risk for diabetes (prediabetes).Fasting plasma glucose results greater than or equal to 126 mg/dL meet the criteria for diagnosis of diabetes. In the absence of unequivocal hyperglycemia, results should be confirmed by repeat testing. In a patient with classic symptoms of hyperglycemia or hyperglycemic crisis, random plasma glucose results greater than or equal to 200 mg/dL meet the criteria for diagnosis of diabetes.Reference: Standards of Medical Care in Diabetes 2016, [place] [employer] Association. Diabetes Care. 2016.39(Suppl 1). Performed By: #### 2 4323-8, 41622-4, 2776-1, 6-3 ####[facility] LABIA [id number] [place] [id number] [place] Potassium [Moles/Vol] 4.2 mmol/L Normal 3.7-5.1 [facility] Comment on above: Order Comment: Kurt men Type: BLOOD SPECIMENOrdering Facility: [facility] Address: [address] [place] [address] Performed By: #### 2 4323-8, 71250-5, 2777-1, 3016-3 ####[facility] LABCLIA [id number] [place] [id number] [place] Protein [Mass/Vol] 5.8 g/dL Low 6.3-8.0 [facility] Comment on above: Order Comment: Speci men Type: BLOOD SPECIMENOrdering Facility: [facility] Address: [address] [address] Performed By: #### 2 4323-8, 81217-6, 2777-1, 3016-3 ####[facility] LABIA [id number] [place] [address] [place] Sodium [Moles/Vol] 135 mmol/L Low 136-144 [facility] Comment on above: Order Comment: Speci men Type: BLOOD SPECIMENOrdering Facility: [facility] Address: [address] [place], [place] [address] Performed By: #### 2 4323-8, 60207-9, 2777-1, 3016-3 ####[facility] LABIA [id number] [place] [address] [place] Urea nitrogen [Mass/Vol] 26 mg/dL High 7-21 [facility] Comment on above: Order Comment: Speci men Type: BLOOD SPECIMENOrdering Facility: [facility] Address: [address] [place] [address] Performed By: #### 2 4323-8, 69659-6, 2777-1, 3016-3 ####[facility] LABIA [id number] [place] [id number] [place] ED NOTEon 11-04-2022 ED NOTE HNO ID: [id number] Author: Emily Cruz RN Service: Emergency Medicine Author Type: Registered Nurse Type: ED Notes Filed: 11/04/2022 4:59 PM Note Text: Called report to Mishel REED. Normal [facility] ED PROV NOTEon 11-04-2022 ED PROV NOTE Normal [facility] HISTORY PHYSICALon HISTORY PHYSICAL Normal [facility] Magnesium SerPl-mCncon 11-04 Magnesium [Mass/Vol] 2.3 mg/dL Normal 1.7-2.3 [facility] Comment on above: Order Comment: Speci men Type: BLOOD SPECIMENOrdering Facility: [facility] Address: [address] [place], [place] [address] Performed By: #### 2 4323-8, 66642-5, 2777-1, 3016-3 ####[facility] LABCLIA [id number] [place] [id number] [place] Phosphate SerPl-mCncon 11-04 Phosphate [Mass/Vol] 3.4 mg/dL Normal 2.7-4.8 [facility] Comment on above: Order Comment: Speci men Type: BLOOD SPECIMENOrdering Facility: [facility] Address: [address] [place] [address] Performed By: #### 2 4323-8, 28429-5, 277-1, 3016-3 ####[facility] LABCLIA [id number] [place] [id number] [place] TSH SerPl-aCncon 11-04-2022 TSH Qn 0.940 m[IU]/L Normal 0.270-4.20 0 [facility] Comment on above: Order Comment: Speci men Type: BLOOD SPECIMENOrdering Facility: [facility] Address: [address] [place], [place] [address] Performed By: #### 2 4323-8, 07519-9, 277-1, 3016-3 ####[facility] LABCLIA [id number] [address] [address] [place] Urinalysis complete panel (U )on 11-04-2022 Bilirubin Ql (U) Negative Normal Negative [facility] Comment on above: Order Comment: Speci men Type: URINE SPECIMENOrdering Facility: [facility] Address: [address] Performed By: #### 2 4356-8 ####[facility] LABCLIA [id number] [place] [address] [place] Clarity (Unsp spec) Clear Normal Clear [facility] Comment on above: Order Comment: Speci men Type: URINE SPECIMENOrdering Facility: [facility] Address: [address] Performed By: #### 2 4356-8 ####[facility] LABCLIA [id number] [place] [address] [place] Color (U) Yellow Normal Yellow [facility] Comment on above: Order Comment: Speci men Type: URINE SPECIMENOrdering Facility: [facility] Address: [address] Performed By: #### 2 4356-8 ####[facility] LABCLIA [id number] [place] [address] [place] Epithelial cells LM.HPF (Urine sed) [#/Area] Few Normal [facility] Comment on above: Order Comment: Speci men Type: URINE SPECIMENOrdering Facility: [facility] Address: [address] Performed By: #### 2 4356-8 ####[facility] LABCLIA [id number] [place] [address] [place] Glucose Test strip (U) [Mass/Vol] Negative Normal Trace, Negative [facility] Comment on above: Order Comment: Speci men Type: URINE SPECIMENOrdering Facility: [facility] Address: [address] Performed By: #### 2 4356-8 ####[facility] LABCLIA [id number] [place] [address] [place] Hemoglobin Ql (U) Negative Normal Negative, Trace [facility] Comment on above: Order Comment: Speci men Type: URINE SPECIMENOrdering Facility: [facility] Address: [address] [place] [address] Performed By: #### 2 4356-8 ####[facility] LABCLIA [id number] [place] [address] [place] Ketones Ql (U) Negative Normal Trace, Negative [facility] Comment on above: Order Comment: Speci men Type: URINE SPECIMENOrdering Facility: [facility] Address: [address] [place] [address] Performed By: #### 2 4356-8 ####[facility] LABCLIA [id number] [place] [address] [place] Leukocyte esterase Test strip Ql (U) 250 Gretta/uL Abnormal Negative, 25 Gretta/uL [facility] Comment on above: Order Comment: Speci men Type: URINE SPECIMENOrdering Facility: [facility] Address: [address] [place] [address] Performed By: #### 2 4356-8 ####[facility] LABCLIA [id number] [place] [address] [place] Nitrite Ql (U) Negative Normal Negative [facility] Comment on above: Order Comment: Speci men Type: URINE SPECIMENOrdering Facility: [facility] Address: [address] [place], [place] [address] Performed By: #### 2 4356-8 ####[facility] LABCLIA [id number] [place] [address] [place] pH (U) 6.5 [pH] Normal 5.0-8.0 [facility] Comment on above: Order Comment: Speci men Type: URINE SPECIMENOrdering Facility: [facility] Address: [address] [place], [place] [address] Performed By: #### 2 4356-8 ####[facility] LABIA [id number] [place] [address] [place] Protein (U) [Mass/Vol] Trace Normal Trace , Negative [facility] Comment on above: Order Comment: Speci men Type: URINE SPECIMENOrdering Facility: [facility] Address: [address] [place], [place] [address] Performed By: #### 2 4356-8 ####[facility] [id number] [place] [address] [place] RBC LM.HPF (Urine sed) [#/Area] 3-5 /HPF Abnormal 0-3 /HPF [facility] Comment on above: Order Comment: Speci men Type: URINE SPECIMENOrdering Facility: [facility] Address: [address] [place], [place] [address] Performed By: #### 2 4356-8 ####[facility] [id number] [place] [address] [place] Specific gravity (U) [Rel density] 1.031 High 1.005-1.03 0 [facility] Comment on above: Order Comment: Speci men Type: URINE SPECIMENOrdering Facility: [facility] Address: [address] [place], [place] [address] Performed By: #### 2 4356-8 ####[facility] [id number] [place] [address] [place] Urobilinogen Ql (U) Negative Normal Negative [facility] Comment on above: Order Comment: Speci men Type: URINE SPECIMENOrdering Facility: [facility] Address: [address] [place], [place] [address] Performed By: #### 2 4356-8 ####[facility] LABIA [id number] [address] [id number] [address] [place] WBC LM.HPF (Urine sed) [#/Area] 11-25 /HPF Abnormal 0-5 /HPF [facility] Comment on above: Order Comment: Speci men Type: URINE SPECIMENOrdering Facility: [facility] Address: [address] [place] [address] Performed By: #### 2 4356-8 ####[facility] LABCLIA [id number] [address] [place] Urinalysis complete pnl Uron 11-04-2022 Urinalysis complete panel (U) Normal [facility] Comment on above: Order Comment: Speci men Type: URINE SPECIMENOrdering Facility: [facility] Address: [address] [place] [address] Performed By: #### 2 4356-8 ####[facility] LABCLIA [id number] [address] [place] XR CHEST 1V FRONTAL PORTon 0 11-04-2022 XR CHEST 1V FRONTAL PORT Normal [facility] CBC W Auto Differential pane l (Bld)on 11-02-2022 Basophils (Bld) [#/Vol] 10*3/uL Normal <0.11 [facility] Comment on above: Order Comment: Speci men Type: BLOOD SPECIMENOrdering Facility: [facility] Address: [address] [place] [address] Performed By: #### 5 7021-8 ####[facility] LABCL[facility] [id number] [place] [address] Basophils/100 WBC (Bld) 0.1 % Normal C [facility] Comment on above: Order Comment: Speci men Type: BLOOD SPECIMENOrdering Facility: [facility] Address: [address] [place] [address] Performed By: #### 5 7021-8 ####[facility] LABCLIA [id number] [place] [address] Differential cell count method Nom (Bld) Auto Normal [facility] Comment on above: Order Comment: Speci men Type: BLOOD SPECIMENOrdering Facility: WAYNE [facility] Address: [address] [place] [address] Performed By: #### 5 7021-8 ####[facility] LABCLIA [id number] [place] [address] Eosinophils (Bld) [#/Vol] 10*3/uL Normal <0.46 [facility] Comment on above: Order Comment: Speci men Type: BLOOD SPECIMENOrdering Facility: [facility] Address: [address] [address] Performed By: #### 5 7021-8 ####[facility] LABCLIA [id number] [place] [address] Eosinophils/100 WBC (Bld) 0.1 % Normal [facility] Comment on above: Order Comment: Speci men Type: BLOOD SPECIMENOrdering Facility: [facility] Address: [address] [place] [address] Performed By: #### 5 7021-8 ####[facility] LABCLIA [id number] [place] [address] Erythrocyte distribution width (RBC) [Ratio] 13.5 % Normal 11.5-15.0 [facility] Comment on above: Order Comment: Speci men Type: BLOOD SPECIMENOrdering Facility: [facility] Address: [address] [place] [address] Performed By: #### 5 7021-8 ####[facility] LABCLIA [id number] [place] [address] Hematocrit (Bld) [Volume fraction] 41.8 % Normal 36.0-46.0 [facility] Comment on above: Order Comment: Speci men Type: BLOOD SPECIMENOrdering Facility: [facility] Address: [address] [place] [address] Performed By: #### 5 7021-8 ####[facility] LABCLIA [id number] [place] [address] Hemoglobin (Bld) [Mass/Vol] 13.7 g/dL Normal 11.5-15.5 [facility] Comment on above: Order Comment: Speci men Type: BLOOD SPECIMENOrdering Facility: [facility] Address: [address] [place] [address] Performed By: #### 5 7021-8 ####[facility] LABCLIA [id number] [place] [address] Immature granulocytes (Bld) [#/Vol] 0.11 10*3/uL High <0.10 [facility] Comment on above: Order Comment: Speci men Type: BLOOD SPECIMENOrdering Facility: [facility] Address: [address] [place] [address] Performed By: #### 5 7021-8 ####[facility] LABCLIA [id number] [place] [address] Immature granulocytes/100 WBC (Bld) 1.1 % Normal [facility] Comment on above: Order Comment: Speci men Type: BLOOD SPECIMENOrdering Facility: [facility] Address: [address] [place] [address] Performed By: #### 5 7021-8 ####[facility] LABCLIA [id number] [place] [address] Lymphocytes (Bld) [#/Vol] 0.33 10*3/uL Low 1.00-4.00 [facility] Comment on above: Order Comment: Speci men Type: BLOOD SPECIMENOrdering Facility: [facility] Address: [address] [place] [address] Performed By: #### 5 7021-8 ####[facility] LABCLIA [id number] [place] [address] Lymphocytes/100 WBC (Bld) 3.4 % Normal [facility] Comment on above: Order Comment: Speci men Type: BLOOD SPECIMENOrdering Facility: [facility] Address: [address] [address] Performed By: #### 5 7021-8 ####[facility] LABCLIA [id number] [place] [address] MCH (RBC) [Entitic mass] 30.3 pg Normal 26.0-34.0 [facility] Comment on above: Order Comment: Speci men Type: BLOOD SPECIMENOrdering Facility: [facility] Address: [address] [place] [address] Performed By: #### 5 7021-8 ####[facility] LABCLIA [id number] [place] [address] MCHC (RBC) [Mass/Vol] 32.8 g/dL Normal 30.5-36.0 [facility] Comment on above: Order Comment: Speci men Type: BLOOD SPECIMENOrdering Facility: [facility] Address: [address] [place] [address] Performed By: #### 5 7021-8 ####[facility] LABIA [id number] [place] [address] MCV (RBC) [Entitic vol] 92.5 fL Normal 80.0-100.0 [facility] Comment on above: Order Comment: Speci men Type: BLOOD SPECIMENOrdering Facility: [facility] Address: [address] [place] [address] Performed By: #### 5 7021-8 ####[facility] LABCLIA [id number] [place] [address] Monocytes (Bld) [#/Vol] 0.56 10*3/uL Normal <0.87 [facility] Comment on above: Order Comment: Speci men Type: BLOOD SPECIMENOrdering Facility: [facility] Address: [address] [place] [address] Performed By: #### 5 7021-8 ####[facility] LABCLIA [id number] [place] [address] Monocytes/100 WBC (Bld) 5.7 % Normal [facility] Comment on above: Order Comment: Speci men Type: BLOOD SPECIMENOrdering Facility: [facility] Address: [address] [place] [address] Performed By: #### 5 7021-8 ####[facility] LABCLIA [id number] [place] [address] Neutrophils (Bld) [#/Vol] 8.81 10*3/uL High 1.45-7.50 [facility] Comment on above: Order Comment: Speci men Type: BLOOD SPECIMENOrdering Facility: [facility] Address: [address] [place] [address] Performed By: #### 5 7021-8 ####[facility] LABCLIA [id number] [place] [address] Neutrophils/100 WBC (Bld) 89.6 % Normal [facility] Comment on above: Order Comment: Speci men Type: BLOOD SPECIMENOrdering Facility: [facility] Address: [address] [place] [address] Performed By: #### 5 7021-8 ####[facility] LABCLIA [id number] [place] [address] Nucleated RBC (Bld) [#/Vol] 10*3/uL Normal <0.01 [facility] Comment on above: Order Comment: Speci men Type: BLOOD SPECIMENOrdering Facility: [facility] Address: [address] [place] [address] Performed By: #### 5 7021-8 ####[facility] LABCLIA [id number] [place] [address] Nucleated RBC/100 WBC (Bld) [Ratio] 0.0 /100 WBC Normal [facility] Comment on above: Order Comment: Speci men Type: BLOOD SPECIMENOrdering Facility: [facility] Address: [address] [place] [address] Performed By: #### 5 7021-8 ####[facility] LABCLIA [id number] [place] [address] Platelet mean volume (Bld) [Entitic vol] 10.8 fL Normal 9.0-12.7 [facility] Comment on above: Order Comment: Speci men Type: BLOOD SPECIMENOrdering Facility: [facility] Address: [address] [place], [place] [address] Performed By: #### 5 7021-8 ####[facility] LABCLIA [id number] [place] [address] Platelets (Bld) [#/Vol] 179 10*3/uL Normal 150-400 [facility] Comment on above: Order Comment: Speci men Type: BLOOD SPECIMENOrdering Facility: [facility] Address: [address] [place] [address] Performed By: #### 5 7021-8 ####[facility] LABIA [id number] [place] [address] RBC (Bld) [#/Vol] 4.52 10*6/uL Normal 3.90-5.20 [facility] Comment on above: Order Comment: Speci men Type: BLOOD SPECIMENOrdering Facility: [facility] Address: [address] [place] [address] Performed By: #### 5 7021-8 ####[facility] LABIA [id number] [place] [address] WBC (Bld) [#/Vol] 9.83 10*3/uL Normal 3.70-11.00 [facility] Comment on above: Order Comment: Speci men Type: BLOOD SPECIMENOrdering Facility: [facility] Address: [address] [place] [address] Performed By: #### 5 7021-8 ####[facility] LABIA [id number] [place] [address] CNOVSPon 11-02-2022 CNOVSP Normal [facility] CNPNon 11-02-2022 CNPN Normal [facility] Comprehensive metabolic 2000 panelon 11-02-2022 Albumin [Mass/Vol] 4.1 g/dL Normal 3.9-4.9 [facility] Comment on above: Order Comment: Speci men Type: BLOOD SPECIMENOrdering Facility: [facility] Address: [address] [place] [address] Performed By: #### 2 4323-8 ####[facility] LABCLIA [id number] [place] [address] ALP [Catalytic activity/Vol] 47 U/L Normal 34-123 [facility] Comment on above: Order Comment: Speci men Type: BLOOD SPECIMENOrdering Facility: [facility] Address: [address] [place] [address] Performed By: #### 2 4323-8 ####[facility] LABCLIA [id number] [place] [address] ALT [Catalytic activity/Vol] 13 U/L Normal 7-38 [facility] Comment on above: Order Comment: Speci men Type: BLOOD SPECIMENOrdering Facility: [facility] Address: [address] [place] [address] Performed By: #### 2 4323-8 ####[facility] LABCLIA [id number] [place] [address] Anion gap [Moles/Vol] 6 mmol/L Low 9-18 [facility] Comment on above: Order Comment: Speci men Type: BLOOD SPECIMENOrdering Facility: [facility] Address: [address] [place] [address] Performed By: #### 2 4323-8 ####[facility] LABCLIA [id number] [place] [address] AST [Catalytic activity/Vol] 9 U/L Low 13-35 [facility] Comment on above: Order Comment: Speci men Type: BLOOD SPECIMENOrdering Facility: [facility] Address: [address] [address] Performed By: #### 2 4323-8 ####[facility] LABCLIA [id number] [place] [address] Bilirubin [Mass/Vol] 0.6 mg/dL Normal 0.2-1.3 [facility] Comment on above: Order Comment: Speci men Type: BLOOD SPECIMENOrdering Facility: [facility] Address: [address] [address] Performed By: #### 2 4323-8 ####[facility] LAB[facility] [id number] [place] [address] Calcium [Mass/Vol] 9.2 mg/dL Normal 8.5-10.2 [facility] Comment on above: Order Comment: Speci men Type: BLOOD SPECIMENOrdering Facility: [facility] Address: [address] [place] [address] Performed By: #### 2 4323-8 ####[facility] LABCL[facility] [id number] [place] [address] Chloride [Moles/Vol] 101 mmol/L Normal 97-105 [facility] Comment on above: Order Comment: Speci men Type: BLOOD SPECIMENOrdering Facility: [facility] Address: [address] [place] [address] Performed By: #### 2 4323-8 ####[facility] LABCLIA [id number] [place] [address] CO2 [Moles/Vol] 28 mmol/L Normal 22-30 [facility] Comment on above: Order Comment: Speci men Type: BLOOD SPECIMENOrdering Facility: [facility] Address: [address] [place] [address] Performed By: #### 2 4323-8 ####[facility] LABCLIA [id number] [place] [address] Creatinine [Mass/Vol] 0.75 mg/dL Normal 0.58-0.96 [facility] Comment on above: Order Comment: Kurt barraza Type: BLOOD SPECIMENOrdering Facility: [facility] Address: [address] [id number] Performed By: #### 2 4323-8 ####[facility] LABCLIA [id number] [place] [address] ESTIMATED GLOMERULAR FILTRATION RATE 81 mL/min/1.73m??? Normal >=60 [facility] Comment on above: Order Comment: Kurt barraza Type: BLOOD SPECIMENOrdering Facility: [facility] Address: [address] [place] [address] Result Comment: Kim mated Glomerular Filtration Rate (eGFR) is calculated using the 2020 CKD-EPI creatinine equation. This equation utilizes serum creatinine, sex, and age as parameters. The creatinine assay has traceable calibration to isotope dilution-mass spectrometry. Refer to KDIGO guidelines for clinical interpretation. In patients with unstable renal function, e.g. those with acute kidney injury, the eGFR may not accurately reflect actual GFR. Performed By: #### 2 4323-8 ####[facility] LABIA [id number] [place] [address] Glucose [Mass/Vol] 117 mg/dL High 74-99 [facility] Comment on above: Order Comment: Kurt barraza Type: BLOOD SPECIMENOrdering Facility: [facility] Address: [address] [place] [address] Result Comment: The [place] [employer] (ADA) provides guidance for cutoff values for fasting glucose and random glucose. The ADA defines fasting as no caloric intake for at least 8 hours. Fasting plasma glucose results between 100 to 125 mg/dL indicate increased risk for diabetes (prediabetes).Fasting plasma glucose results greater than or equal to 126 mg/dL meet the criteria for diagnosis of diabetes. In the absence of unequivocal hyperglycemia, results should be confirmed by repeat testing. In a patient with classic symptoms of hyperglycemia or hyperglycemic crisis, random plasma glucose results greater than or equal to 200 mg/dL meet the criteria for diagnosis of diabetes.Reference: Standards of Medical Care in Diabetes 2016, [place] [employer]. Diabetes Care. 2016.39(Suppl 1). Performed By: #### 2 4323-8 ####[facility] LABCLIA [id number] [place] [address] Potassium [Moles/Vol] 4.1 mmol/L Normal 3.7-5.1 [facility] Comment on above: Order Comment: Speci men Type: BLOOD SPECIMENOrdering Facility: [facility] Address: [address] [address] Performed By: #### 2 4323-8 ####[facility] LABCLIA [id number] [place] [address] Protein [Mass/Vol] 6.2 g/dL Low 6.3-8.0 [facility] Comment on above: Order Comment: Speci men Type: BLOOD SPECIMENOrdering Facility: [facility] Address: [address] [address] Performed By: #### 2 4323-8 ####[facility] LABCLIA [id number] [place] [address] Sodium [Moles/Vol] 135 mmol/L Low 136-144 [facility] Comment on above: Order Comment: Speci men Type: BLOOD SPECIMENOrdering Facility: [facility] Address: [address] [address] Performed By: #### 2 4323-8 ####[facility] LABCLIA [id number] [place] [address] Urea nitrogen [Mass/Vol] 27 mg/dL High 7-21 [facility] Comment on above: Order Comment: Speci men Type: BLOOD SPECIMENOrdering Facility: [facility] Address: [address] [address] Performed By: #### 2 4323-8 ####[facility] LABCLIA [id number] [place] [address] CNPNon 10-27-2022 CNPN Normal [facility] CNOVon 10-24-2022 CNOV Normal [facility] CNPNon 10-24-2022 CNPN Normal [facility] CBC W Auto Differential pane l (Bld)on 10-20-2022 Basophils (Bld) [#/Vol] 10*3/uL Normal <0.11 [facility] Comment on above: Order Comment: Speci men Type: BLOOD SPECIMENOrdering Facility: [facility] Address: [address] [address] Performed By: #### 5 7021-8 ####[facility] LABCLIA [id number] [place] [address] Basophils/100 WBC (Bld) 0.1 % Normal [facility] Comment on above: Order Comment: Speci men Type: BLOOD SPECIMENOrdering Facility: [facility] Address: [address] [place] [address] Performed By: #### 5 7021-8 ####[facility] LABCLIA [id number] [place] [address] Differential cell count method Nom (Bld) Auto Normal [facility] Comment on above: Order Comment: Speci men Type: BLOOD SPECIMENOrdering Facility: [facility] Address: [address] [place] [address] Performed By: #### 5 7021-8 ####[facility] LABCLIA [id number] [place] [address] Eosinophils (Bld) [#/Vol] 10*3/uL Normal <0.46 [facility] Comment on above: Order Comment: Speci men Type: BLOOD SPECIMENOrdering Facility: [facility] Address: [address] [place] [address] Performed By: #### 5 7021-8 ####[facility] LABCLIA [id number] [place] [address] Eosinophils/100 WBC (Bld) 0.0 % Normal [facility] Comment on above: Order Comment: Speci men Type: BLOOD SPECIMENOrdering Facility: [facility] Address: [address] [address] Performed By: #### 5 7021-8 ####[facility] LABCLIA [id number] [place] [address] Erythrocyte distribution width (RBC) [Ratio] 13.6 % Normal 11.5-15.0 [facility] Comment on above: Order Comment: Speci men Type: BLOOD SPECIMENOrdering Facility: [facility] Address: [address] [place] [address] Performed By: #### 5 7021-8 ####[facility] LABCLIA [id number] [place] [address] Hematocrit (Bld) [Volume fraction] 39.9 % Normal 36.0-46.0 [facility] Comment on above: Order Comment: Speci men Type: BLOOD SPECIMENOrdering Facility: [facility] Address: [address] [address] Performed By: #### 5 7021-8 ####[facility] LABIA [id number] [place] [address] Hemoglobin (Bld) [Mass/Vol] 13.1 g/dL Normal 11.5-15.5 [facility] Comment on above: Order Comment: Speci men Type: BLOOD SPECIMENOrdering Facility: [facility] Address: [address] [address] Performed By: #### 5 7021-8 ####[facility] LABIA [id number] [place] [address] Immature granulocytes (Bld) [#/Vol] 0.13 10*3/uL High <0.10 [facility] Comment on above: Order Comment: Speci men Type: BLOOD SPECIMENOrdering Facility: [facility] Address: [address] [place] [address] Performed By: #### 5 7021-8 ####[facility] LABCLIA [id number] [place] [address] Immature granulocytes/100 WBC (Bld) 1.4 % Normal [facility] Comment on above: Order Comment: Speci men Type: BLOOD SPECIMENOrdering Facility: [facility] Address: [address] [place] [address] Performed By: #### 5 7021-8 ####[facility] LABCLIA [id number] [place] [address] Lymphocytes (Bld) [#/Vol] 0.41 10*3/uL Low 1.00-4.00 [facility] Comment on above: Order Comment: Speci men Type: BLOOD SPECIMENOrdering Facility: [facility] Address: [address] [place] [address] Performed By: #### 5 7021-8 ####[facility] LABCLIA [id number] [place] [address] Lymphocytes/100 WBC (Bld) 4.4 % Normal [facility] Comment on above: Order Comment: Speci men Type: BLOOD SPECIMENOrdering Facility: [facility] Address: [address] [place] [address] Performed By: #### 5 7021-8 ####[facility] LABCLIA [id number] [place] [address] MCH (RBC) [Entitic mass] 30.6 pg Normal 26.0-34.0 [facility] Comment on above: Order Comment: Speci men Type: BLOOD SPECIMENOrdering Facility: [facility] Address: [address] [place] [address] Performed By: #### 5 7021-8 ####[facility] LABCLIA [id number] [place] [address] MCHC (RBC) [Mass/Vol] 32.8 g/dL Normal 30.5-36.0 [facility] Comment on above: Order Comment: Speci men Type: BLOOD SPECIMENOrdering Facility: [facility] Address: [address] [place] [address] Performed By: #### 5 7021-8 ####[facility] LABCLIA [id number] [place] [address] MCV (RBC) [Entitic vol] 93.2 fL Normal 80.0-100.0 C [facility] Comment on above: Order Comment: Speci men Type: BLOOD SPECIMENOrdering Facility: [facility] Address: [address] [place] [address] Performed By: #### 5 7021-8 ####[facility] LABCLIA [id number] [place] [address] Monocytes (Bld) [#/Vol] 0.75 10*3/uL Normal <0.87 [facility] Comment on above: Order Comment: Speci men Type: BLOOD SPECIMENOrdering Facility: [facility] Address: [address] [address] Performed By: #### 5 7021-8 ####[facility] LABCLIA [id number] [place] [address] Monocytes/100 WBC (Bld) 8.0 % Normal C [facility] Comment on above: Order Comment: Speci men Type: BLOOD SPECIMENOrdering Facility: [facility] Address: [address] [place] [address] Performed By: #### 5 7021-8 ####[facility] LABCLIA [id number] [place] [address] Neutrophils (Bld) [#/Vol] 8.02 10*3/uL High 1.45-7.50 [facility] Comment on above: Order Comment: Speci men Type: BLOOD SPECIMENOrdering Facility: [facility] Address: [address] [place] [address] Performed By: #### 5 7021-8 ####[facility] LABCLIA [id number] [place] [address] Neutrophils/100 WBC (Bld) 86.1 % Normal [facility] Comment on above: Order Comment: Speci men Type: BLOOD SPECIMENOrdering Facility: [facility] Address: [address] [place] [address] Performed By: #### 5 7021-8 ####[facility] LABCLIA [id number] [place] [address] Nucleated RBC (Bld) [#/Vol] 10*3/uL Normal <0.01 [facility] Comment on above: Order Comment: Speci men Type: BLOOD SPECIMENOrdering Facility: [facility] Address: [address] [place] [address] Performed By: #### 5 7021-8 ####[facility] LABCLIA [id number] [place] [address] Nucleated RBC/100 WBC (Bld) [Ratio] 0.0 /100 WBC Normal [facility] Comment on above: Order Comment: Speci men Type: BLOOD SPECIMENOrdering Facility: [facility] Address: [address] [place] [address] Performed By: #### 5 7021-8 ####[facility] LABCLIA [id number] [place] [address] Platelet mean volume (Bld) [Entitic vol] 10.6 fL Normal 9.0-12.7 [facility] Comment on above: Order Comment: Speci men Type: BLOOD SPECIMENOrdering Facility: [facility] Address: [address] [place] [address] Performed By: #### 5 7021-8 ####[facility] LABCLIA [id number] [place] [address] Platelets (Bld) [#/Vol] 270 10*3/uL Normal 150-400 [facility] Comment on above: Order Comment: Speci men Type: BLOOD SPECIMENOrdering Facility: [facility] Address: [address] [address] Performed By: #### 5 7021-8 ####[facility] LABIA [id number] [place] [address] RBC (Bld) [#/Vol] 4.28 10*6/uL Normal 3.90-5.20 [facility] Comment on above: Order Comment: Speci men Type: BLOOD SPECIMENOrdering Facility: [facility] Address: [address] [place] [address] Performed By: #### 5 7021-8 ####[facility] LABIA [id number] [place] [address] WBC (Bld) [#/Vol] 9.32 10*3/uL Normal 3.70-11.00 [facility] Comment on above: Order Comment: Speci men Type: BLOOD SPECIMENOrdering Facility: [facility] Address: [address] [place] [address] Performed By: #### 5 7021-8 ####[facility] LABIA [id number] [place] [address] CNOVSPon 10-20-2022 CNOVSP Normal [facility] Comprehensive metabolic 2000 panelon 10-20-2022 Albumin [Mass/Vol] 4.2 g/dL Normal 3.9-4.9 [facility] Comment on above: Order Comment: Speci men Type: BLOOD SPECIMENOrdering Facility: [facility] Address: [address] [place] [address] Performed By: #### 2 4323-8 ####[facility] LABIA [id number] [place] [address] ALP [Catalytic activity/Vol] 52 U/L Normal 34-123 [facility] Comment on above: Order Comment: Speci men Type: BLOOD SPECIMENOrdering Facility: [facility] Address: [address] [place] [address] Performed By: #### 2 4323-8 ####[facility] LABCLIA [id number] [place] [address] ALT [Catalytic activity/Vol] 9 U/L Normal 7-38 [facility] Comment on above: Order Comment: Speci men Type: BLOOD SPECIMENOrdering Facility: [facility] Address: [address] [place] [address] Performed By: #### 2 4323-8 ####[facility] LABCLIA [id number] [place] [address] Anion gap [Moles/Vol] 11 mmol/L Normal 9-18 [facility] Comment on above: Order Comment: Speci men Type: BLOOD SPECIMENOrdering Facility: [facility] Address: [address] [place] [address] Performed By: #### 2 4323-8 ####[facility] LABCLIA [id number] [place] [address] AST [Catalytic activity/Vol] 10 U/L Low 13-35 [facility] Comment on above: Order Comment: Speci men Type: BLOOD SPECIMENOrdering Facility: [facility] Address: [address] [place] [address] Performed By: #### 2 4323-8 ####[facility] LABCLIA [id number] [place] [address] Bilirubin [Mass/Vol] 0.5 mg/dL Normal 0.2-1.3 [facility] Comment on above: Order Comment: Speci men Type: BLOOD SPECIMENOrdering Facility: [facility] Address: [address] [place] [address] Performed By: #### 2 4323-8 ####[facility] LABCLIA [id number] [place] [address] Calcium [Mass/Vol] 9.1 mg/dL Normal 8.5-10.2 [facility] Comment on above: Order Comment: Speci men Type: BLOOD SPECIMENOrdering Facility: [facility] Address: [address] [place] [address] Performed By: #### 2 4323-8 ####[facility] LABCLIA [id number] [place] [address] Chloride [Moles/Vol] 103 mmol/L Normal 97-105 [facility] Comment on above: Order Comment: Speci men Type: BLOOD SPECIMENOrdering Facility: [facility] Address: [address] [place] [address] Performed By: #### 2 4323-8 ####[facility] LABCLIA [id number] [place] [address] CO2 [Moles/Vol] 26 mmol/L Normal 22-30 [facility] Comment on above: Order Comment: Speci men Type: BLOOD SPECIMENOrdering Facility: [facility] Address: [address] [place] [address] Performed By: #### 2 4323-8 ####[facility] LABCLIA [id number] [place] [address] Creatinine [Mass/Vol] 0.74 mg/dL Normal 0.58-0.96 [facility] Comment on above: Order Comment: Speci men Type: BLOOD SPECIMENOrdering Facility: [facility] Address: [address] [place] [address] Performed By: #### 2 4323-8 ####[facility] LABCLIA [id number] [place] [address] ESTIMATED GLOMERULAR FILTRATION RATE 82 mL/min/1.73m??? Normal >=60 [facility] Comment on above: Order Comment: Speci men Type: BLOOD SPECIMENOrdering Facility: [facility] Address: [address] [place] [address] Result Comment: [place] mated Glomerular Filtration Rate (eGFR) is calculated using the 2020 CKD-EPI creatinine equation. This equation utilizes serum creatinine, sex, and age as parameters. The creatinine assay has traceable calibration to isotope dilution-mass spectrometry. Refer to KDIGO guidelines for clinical interpretation. In patients with unstable renal function, e.g. those with acute kidney injury, the eGFR may not accurately reflect actual GFR. Performed By: #### 2 4323-8 ####[facility] LABCLIA [id number] [place] [address] Glucose [Mass/Vol] 108 mg/dL High 74-99 [facility] Comment on above: Order Comment: Speci men Type: BLOOD SPECIMENOrdering Facility: [facility] Address: [address] [place] [id number] Result Comment: The [place] Diabetes Association (ADA) provides guidance for cutoff values for fasting glucose and random glucose. The ADA defines fasting as no caloric intake for at least 8 hours. Fasting plasma glucose results between 100 to 125 mg/dL indicate increased risk for diabetes (prediabetes).Fasting plasma glucose results greater than or equal to 126 mg/dL meet the criteria for diagnosis of diabetes. In the absence of unequivocal hyperglycemia, results should be confirmed by repeat testing. In a patient with classic symptoms of hyperglycemia or hyperglycemic crisis, random plasma glucose results greater than or equal to 200 mg/dL meet the criteria for diagnosis of diabetes.Reference: Standards of Medical Care in Diabetes 2016, [place] [employer]. Diabetes Care. 2016.39(Suppl 1). Performed By: #### 2 4323-8 ####[facility] LABCLIA [id number] [place] [address] Potassium [Moles/Vol] 4.4 mmol/L Normal 3.7-5.1 [facility] Comment on above: Order Comment: Speci men Type: BLOOD SPECIMENOrdering Facility: [facility] Address: [address] [place] [address] Performed By: #### 2 4323-8 ####[facility] LABCLIA [id number] [place] [address] Protein [Mass/Vol] 6.4 g/dL Normal 6.3-8.0 [facility] Comment on above: Order Comment: Speci men Type: BLOOD SPECIMENOrdering Facility: [facility] Address: [address] [place] [address] Performed By: #### 2 4323-8 ####[facility] LABCLIA [id number] [place] [address] Sodium [Moles/Vol] 140 mmol/L Normal 136-144 [facility] Comment on above: Order Comment: Speci men Type: BLOOD SPECIMENOrdering Facility: [facility] Address: [address] [place] [place] [address] Performed By: #### 2 4323-8 ####[facility] LABCLIA [id number] [place] [address] Urea nitrogen [Mass/Vol] 19 mg/dL Normal 7-21 [facility] Comment on above: Order Comment: Speci men Type: BLOOD SPECIMENOrdering Facility: [facility] Address: [address] [place] [address] Performed By: #### 2 4323-8 ####[facility] LABCLIA [id number] [place] [address] CNOVon 10-19-2022 CNOV Normal [facility] CNSWon 10-12-2022 CNSW Normal [facility] CNOVon 10-11-2022 CNOV Normal [facility] CBC W Auto Differential pane l (Bld)on 10-06-2022 Basophils (Bld) [#/Vol] 0.05 10*3/uL Normal <0.11 [facility] Comment on above: Order Comment: Speci men Type: BLOOD SPECIMENOrdering Facility: [facility] Address: [address] [address] Performed By: #### 5 7021-8 ####[facility] LABIA [id number] [place] [address] Basophils/100 WBC (Bld) 0.6 % Normal C [facility] Comment on above: Order Comment: Speci men Type: BLOOD SPECIMENOrdering Facility: [facility] Address: [address] [address] Performed By: #### 5 7021-8 ####[facility] LABCLIA [id number] [place] [address] Differential cell count method Nom (Bld) Auto Normal [facility] Comment on above: Order Comment: Speci men Type: BLOOD SPECIMENOrdering Facility: [facility] Address: [address] [place] [address] Performed By: #### 5 7021-8 ####[facility] LABCLIA [id number] [place] [address] Eosinophils (Bld) [#/Vol] 0.09 10*3/uL Normal <0.46 [facility] Comment on above: Order Comment: Speci men Type: BLOOD SPECIMENOrdering Facility: [facility] Address: [address] [place] [address] Performed By: #### 5 7021-8 ####[facility] LABCLIA [id number] [place] [address] Eosinophils/100 WBC (Bld) 1.1 % Normal [facility] Comment on above: Order Comment: Speci men Type: BLOOD SPECIMENOrdering Facility: [facility] Address: [address] [place] [address] Performed By: #### 5 7021-8 ####[facility] LABCLIA [id number] [place] [address] Erythrocyte distribution width (RBC) [Ratio] 14.6 % Normal 11.5-15.0 [facility] Comment on above: Order Comment: Speci men Type: BLOOD SPECIMENOrdering Facility: [facility] Address: [address] [place] [address] Performed By: #### 5 7021-8 ####[facility] LABCLIA [id number] [place] [address] Hematocrit (Bld) [Volume fraction] 37.1 % Normal 36.0-46.0 [facility] Comment on above: Order Comment: Speci men Type: BLOOD SPECIMENOrdering Facility: [facility] Address: [address] [place] [address] Performed By: #### 5 7021-8 ####[facility] LABCLIA [id number] [place] [address] Hemoglobin (Bld) [Mass/Vol] 11.8 g/dL Normal 11.5-15.5 [facility] Comment on above: Order Comment: Speci men Type: BLOOD SPECIMENOrdering Facility: [facility] Address: [address] [place] [address] Performed By: #### 5 7021-8 ####[facility] LABCLIA [id number] [place] [address] Immature granulocytes (Bld) [#/Vol] 0.04 10*3/uL Normal <0.10 [facility] Comment on above: Order Comment: Speci men Type: BLOOD SPECIMENOrdering Facility: [facility] Address: [address] [place] [address] Performed By: #### 5 7021-8 ####[facility] LABIA [id number] [place] [address] Immature granulocytes/100 WBC (Bld) 0.5 % Normal [facility] Comment on above: Order Comment: Speci men Type: BLOOD SPECIMENOrdering Facility: [facility] Address: [address] [place] [place] [address] Performed By: #### 5 7021-8 ####[facility] LABIA [id number] [place] [address] Lymphocytes (Bld) [#/Vol] 0.70 10*3/uL Low 1.00-4.00 [facility] Comment on above: Order Comment: Speci men Type: BLOOD SPECIMENOrdering Facility: [facility] Address: [address] [place] [address] Performed By: #### 5 7021-8 ####[facility] LABCLIA [id number] [place] [address] Lymphocytes/100 WBC (Bld) 8.9 % Normal [facility] Comment on above: Order Comment: Speci men Type: BLOOD SPECIMENOrdering Facility: [facility] Address: [address] [place] [address] Performed By: #### 5 7021-8 ####[facility] LABCLIA [id number] [place] [address] MCH (RBC) [Entitic mass] 30.5 pg Normal 26.0-34.0 [facility] Comment on above: Order Comment: Speci men Type: BLOOD SPECIMENOrdering Facility: [facility] Address: [address] [place] [address] Performed By: #### 5 7021-8 ####[facility] LABIA [id number] [place] [address] MCHC (RBC) [Mass/Vol] 31.8 g/dL Normal 30.5-36.0 [facility] Comment on above: Order Comment: Speci men Type: BLOOD SPECIMENOrdering Facility: [facility] Address: [address] [place] [address] Performed By: #### 5 7021-8 ####[facility] LABCLIA [id number] [place] [address] MCV (RBC) [Entitic vol] 95.9 fL Normal 80.0-100.0 C [facility] Comment on above: Order Comment: Speci men Type: BLOOD SPECIMENOrdering Facility: [facility] Address: [address] [place] [address] Performed By: #### 5 7021-8 ####[facility] LABIA [id number] [place] [address] Monocytes (Bld) [#/Vol] 0.59 10*3/uL Normal <0.87 [facility] Comment on above: Order Comment: Speci men Type: BLOOD SPECIMENOrdering Facility: [facility] Address: [address] [address] Performed By: #### 5 7021-8 ####[facility] LABCLIA [id number] [place] [address] Monocytes/100 WBC (Bld) 7.5 % Normal [facility] Comment on above: Order Comment: Speci men Type: BLOOD SPECIMENOrdering Facility: [facility] Address: [address] [address] Performed By: #### 5 7021-8 ####[facility] LABCLIA [id number] [place] [address] Neutrophils (Bld) [#/Vol] 6.37 10*3/uL Normal 1.45-7.50 [facility] Comment on above: Order Comment: Speci men Type: BLOOD SPECIMENOrdering Facility: [facility] Address: [address] [address] Performed By: #### 5 7021-8 ####[facility] LABIA [id number] [place] [address] Neutrophils/100 WBC (Bld) 81.4 % Normal [facility] Comment on above: Order Comment: Speci men Type: BLOOD SPECIMENOrdering Facility: [facility] Address: [address] [place] [address] Performed By: #### 5 7021-8 ####[facility] LABCLIA [id number] [place] [address] Nucleated RBC (Bld) [#/Vol] 10*3/uL Normal <0.01 [facility] Comment on above: Order Comment: Speci men Type: BLOOD SPECIMENOrdering Facility: [facility] Address: [address] [place] [address] Performed By: #### 5 7021-8 ####[facility] LABCLIA [id number] [place] [address] Nucleated RBC/100 WBC (Bld) [Ratio] 0.0 /100 WBC Normal [facility] Comment on above: Order Comment: Speci men Type: BLOOD SPECIMENOrdering Facility: [facility] Address: [address] [place] [address] Performed By: #### 5 7021-8 ####[facility] LABIA [id number] [place] [address] Platelet mean volume (Bld) [Entitic vol] 10.3 fL Normal 9.0-12.7 [facility] Comment on above: Order Comment: Speci men Type: BLOOD SPECIMENOrdering Facility: [facility] Address: [address] [place] [address] Performed By: #### 5 7021-8 ####[facility] LABIA [id number] [place] [address] Platelets (Bld) [#/Vol] 222 10*3/uL Normal 150-400 [facility] Comment on above: Order Comment: Speci men Type: BLOOD SPECIMENOrdering Facility: [facility] Address: [address] [place] [address] Performed By: #### 5 7021-8 ####[facility] LABIA [id number] [place] [address] RBC (Bld) [#/Vol] 3.87 10*6/uL Low 3.90-5.20 [facility] Comment on above: Order Comment: Speci men Type: BLOOD SPECIMENOrdering Facility: [facility] Address: [address] [place] [address] Performed By: #### 5 7021-8 ####[facility] LABIA [id number] [place] [address] WBC (Bld) [#/Vol] 7.84 10*3/uL Normal 3.70-11.00 [facility] Comment on above: Order Comment: Speci men Type: BLOOD SPECIMENOrdering Facility: [facility] Address: [address] [address] Performed By: #### 5 7021-8 ####[facility] LABCLIA [id number] [place] [address] CNOVSPon 10-06-2022 CNOVSP Normal [facility] metabolic 2000 panelon 10-06-2022 Albumin [Mass/Vol] 4.1 g/dL Normal 3.9-4.9 [facility] Comment on above: Order Comment: Speci men Type: BLOOD SPECIMENOrdering Facility: [facility] Address: [address] [address] Performed By: #### 2 4323-8 ####[facility] LABCLIA [id number] [place] [address] ALP [Catalytic activity/Vol] 51 U/L Normal 34-123 [facility] Comment on above: Order Comment: Speci men Type: BLOOD SPECIMENOrdering Facility: [facility] Address: [address] [address] Performed By: #### 2 4323-8 ####[facility] LABCLIA [id number] [place] [address] ALT [Catalytic activity/Vol] 8 U/L Normal 7-38 [facility] Comment on above: Order Comment: Speci men Type: BLOOD SPECIMENOrdering Facility: [facility] Address: [address] [address] Performed By: #### 2 4323-8 ####[facility] LABCLIA [id number] [place] [address] Anion gap [Moles/Vol] 12 mmol/L Normal 9-18 [facility] Comment on above: Order Comment: Speci men Type: BLOOD SPECIMENOrdering Facility: [facility] Address: [address] [address] Performed By: #### 2 4323-8 ####[facility] LABCLIA [id number] [place] [address] AST [Catalytic activity/Vol] 10 U/L Low 13-35 [facility] Comment on above: Order Comment: Speci men Type: BLOOD SPECIMENOrdering Facility: [facility] Address: [address] [place] [address] Performed By: #### 2 4323-8 ####[facility] LABCLIA [id number] [place] [address] Bilirubin [Mass/Vol] 0.4 mg/dL Normal 0.2-1.3 [facility] Comment on above: Order Comment: Speci men Type: BLOOD SPECIMENOrdering Facility: [facility] Address: [address] [place] [address] Performed By: #### 2 4323-8 ####[facility] LABCLIA [id number] [place] [address] Calcium [Mass/Vol] 9.4 mg/dL Normal 8.5-10.2 [facility] Comment on above: Order Comment: Speci men Type: BLOOD SPECIMENOrdering Facility: [facility] Address: [address] [place] [address] Performed By: #### 2 4323-8 ####[facility] LABCLIA [id number] [place] [address] Chloride [Moles/Vol] 105 mmol/L Normal 97-105 [facility] Comment on above: Order Comment: Speci men Type: BLOOD SPECIMENOrdering Facility: [facility] Address: [address] [place] [address] Performed By: #### 2 4323-8 ####[facility] LABCLIA [id number] [place] [address] CO2 [Moles/Vol] 27 mmol/L Normal 22-30 [facility] Comment on above: Order Comment: Speci men Type: BLOOD SPECIMENOrdering Facility: [facility] Address: [address] [address] Performed By: #### 2 4323-8 ####[facility] LABCLIA [id number] [place] [address] Creatinine [Mass/Vol] 0.76 mg/dL Normal 0.58-0.96 [facility] Comment on above: Order Comment: Speci men Type: BLOOD SPECIMENOrdering Facility: [facility] Address: [address] [address] Performed By: #### 2 4323-8 ####[facility] LABCLIA [id number] [place] [address] ESTIMATED GLOMERULAR FILTRATION RATE 80 mL/min/1.73m??? Normal >=60 [facility] Comment on above: Order Comment: Speci men Type: BLOOD SPECIMENOrdering Facility: [facility] Address: [address] [place] [address] Result Comment: [place] mated Glomerular Filtration Rate (eGFR) is calculated using the 2020 CKD-EPI creatinine equation. This equation utilizes serum creatinine, sex, and age as parameters. The creatinine assay has traceable calibration to isotope dilution-mass spectrometry. Refer to KDIGO guidelines for clinical interpretation. In patients with unstable renal function, e.g. those with acute kidney injury, the eGFR may not accurately reflect actual GFR. Performed By: #### 2 4323-8 ####[facility] LABCLIA [id number] [place] [address] Glucose [Mass/Vol] 102 mg/dL High 74-99 [facility] Comment on above: Order Comment: Speci men Type: BLOOD SPECIMENOrdering Facility: [facility] Address: [address] [place] [address] Result Comment: The [place] Diabetes Association (ADA) provides guidance for cutoff values for fasting glucose and random glucose. The ADA defines fasting as no caloric intake for at least 8 hours. Fasting plasma glucose results between 100 to 125 mg/dL indicate increased risk for diabetes (prediabetes).Fasting plasma glucose results greater than or equal to 126 mg/dL meet the criteria for diagnosis of diabetes. In the absence of unequivocal hyperglycemia, results should be confirmed by repeat testing. In a patient with classic symptoms of hyperglycemia or hyperglycemic crisis, random plasma glucose results greater than or equal to 200 mg/dL meet the criteria for diagnosis of diabetes.Reference: Standards of Medical Care in Diabetes 2016, [place] [employer]. Diabetes Care. 2016.39(Suppl 1). Performed By: #### 2 4323-8 ####[facility] LABCLIA [id number] [place] [address] Potassium [Moles/Vol] 3.6 mmol/L Low 3.7-5.1 [facility] Comment on above: Order Comment: Speci men Type: BLOOD SPECIMENOrdering Facility: [facility] Address: [address] [place] [address] Performed By: #### 2 4323-8 ####[facility] LABIA [id number] [place] [address] Protein [Mass/Vol] 6.2 g/dL Low 6.3-8.0 [facility] Comment on above: Order Comment: Speci men Type: BLOOD SPECIMENOrdering Facility: [facility] Address: [address] [place] [address] Performed By: #### 2 4323-8 ####[facility] LABCLIA [id number] [place] [address] Sodium [Moles/Vol] 144 mmol/L Normal 136-144 [facility] Comment on above: Order Comment: Speci men Type: BLOOD SPECIMENOrdering Facility: [facility] Address: [address] [place] [address] Performed By: #### 2 4323-8 ####[facility] LABIA [id number] [place] [address] Urea nitrogen [Mass/Vol] 13 mg/dL Normal 7-21 [facility] Comment on above: Order Comment: Speci men Type: BLOOD SPECIMENOrdering Facility: [facility] Address: [address] [address] Performed By: #### 2 4323-8 ####[facility] LABCLIA [id number] [place] [address] CNSWon 10-05-2022 CNSW Normal [facility] CNOVon 10-04-2022 CNOV Normal [facility] CNPNon 10-04-2022 CNPN Normal [facility] CT BRAIN WO IVCONon 10-04-19 CT BRAIN WO IVCON [facility] CBC W Auto Differential pane l (Bld)on 09-27-2022 Basophils (Bld) [#/Vol] 0.07 10*3/uL Normal <0.11 [facility] Comment on above: Order Comment: Speci men Type: BLOOD SPECIMENOrdering Facility: [facility] Address: [address] [address] Performed By: #### 5 7021-8 ####[facility] LABCLIA [id number] [place] [address] Basophils/100 WBC (Bld) 0.8 % Normal C [facility] Comment on above: Order Comment: Speci men Type: BLOOD SPECIMENOrdering Facility: [facility] Address: [address] [place] [address] Performed By: #### 5 7021-8 ####[facility] LABCLIA [id number] [place] [address] Differential cell count method Nom (Bld) Auto Normal [facility] Comment on above: Order Comment: Speci men Type: BLOOD SPECIMENOrdering Facility: [facility] Address: [address] [address] Performed By: #### 5 7021-8 ####[facility] LABCLIA [id number] [place] [address] Eosinophils (Bld) [#/Vol] 10*3/uL Normal <0.46 [facility] Comment on above: Order Comment: Speci men Type: BLOOD SPECIMENOrdering Facility: [facility] Address: [address] [place] [address] Performed By: #### 5 7021-8 ####[facility] LABCLIA [id number] [place] [address] Eosinophils/100 WBC (Bld) 0.2 % Normal [facility] Comment on above: Order Comment: Speci men Type: BLOOD SPECIMENOrdering Facility: [facility] Address: [address] [place] [address] Performed By: #### 5 7021-8 ####[facility] LABCLIA [id number] [place] [address] Erythrocyte distribution width (RBC) [Ratio] 14.9 % Normal 11.5-15.0 [facility] Comment on above: Order Comment: Speci men Type: BLOOD SPECIMENOrdering Facility: [facility] Address: [address] [place] [address] Performed By: #### 5 7021-8 ####[facility] LABCLIA [id number] [place] [address] Hematocrit (Bld) [Volume fraction] 38.9 % Normal 36.0-46.0 [facility] Comment on above: Order Comment: Speci men Type: BLOOD SPECIMENOrdering Facility: [facility] Address: [address] [place] [address] Performed By: #### 5 7021-8 ####[facility] LABCLIA [id number] [place] [address] Hemoglobin (Bld) [Mass/Vol] 12.6 g/dL Normal 11.5-15.5 [facility] Comment on above: Order Comment: Speci men Type: BLOOD SPECIMENOrdering Facility: [facility] Address: [address] [place] [address] Performed By: #### 5 7021-8 ####[facility] LABCLIA [id number] [place] [address] Immature granulocytes (Bld) [#/Vol] 0.09 10*3/uL Normal <0.10 [facility] Comment on above: Order Comment: Speci men Type: BLOOD SPECIMENOrdering Facility: [facility] Address: [address] [place] [address] Performed By: #### 5 7021-8 ####[facility] LABCLIA [id number] [place] [address] Immature granulocytes/100 WBC (Bld) 1.0 % Normal [facility] Comment on above: Order Comment: Speci men Type: BLOOD SPECIMENOrdering Facility: [facility] Address: [address] [place] [address] Performed By: #### 5 7021-8 ####[facility] LABCLIA [id number] [place] [address] Lymphocytes (Bld) [#/Vol] 1.25 10*3/uL Normal 1.00-4.00 [facility] Comment on above: Order Comment: Speci men Type: BLOOD SPECIMENOrdering Facility: [facility] Address: [address] [place] [address] Performed By: #### 5 7021-8 ####[facility] LABCLIA [id number] [place] [address] Lymphocytes/100 WBC (Bld) 13.8 % Normal [facility] Comment on above: Order Comment: Speci men Type: BLOOD SPECIMENOrdering Facility: [facility] Address: [address] [place] [address] Performed By: #### 5 7021-8 ####[facility] LABCLIA [id number] [place] [address] MCH (RBC) [Entitic mass] 30.8 pg Normal 26.0-34.0 [facility] Comment on above: Order Comment: Speci men Type: BLOOD SPECIMENOrdering Facility: [facility] Address: [address] [address] Performed By: #### 5 7021-8 ####[facility] LABCLIA [id number] [place] [address] MCHC (RBC) [Mass/Vol] 32.4 g/dL Normal 30.5-36.0 [facility] Comment on above: Order Comment: Speci men Type: BLOOD SPECIMENOrdering Facility: [facility] Address: [address] [address] Performed By: #### 5 7021-8 ####[facility] LABIA [id number] [place] [address] MCV (RBC) [Entitic vol] 95.1 fL Normal 80.0-100.0 C [facility] Comment on above: Order Comment: Speci men Type: BLOOD SPECIMENOrdering Facility: [facility] Address: [address] [address] Performed By: #### 5 7021-8 ####[facility]IA [id number] [place] [address] Monocytes (Bld) [#/Vol] 0.63 10*3/uL Normal <0.87 [facility] Comment on above: Order Comment: Speci men Type: BLOOD SPECIMENOrdering Facility: [facility] Address: [address] [address] Performed By: #### 5 7021-8 ####[facility] [facility] [id number] [place] [address] Monocytes/100 WBC (Bld) 6.9 % Normal C [facility] Comment on above: Order Comment: Speci men Type: BLOOD SPECIMENOrdering Facility: [facility] Address: [address] [place] [address] Performed By: #### 5 7021-8 ####[facility] LABIA [id number] [place] [address] Neutrophils (Bld) [#/Vol] 7.02 10*3/uL Normal 1.45-7.50 [facility] Comment on above: Order Comment: Speci men Type: BLOOD SPECIMENOrdering Facility: [facility] Address: [address] [place] [address] Performed By: #### 5 7021-8 ####[facility] LABCLIA [id number] [place] [address] Neutrophils/100 WBC (Bld) 77.3 % Normal [facility] Comment on above: Order Comment: Speci men Type: BLOOD SPECIMENOrdering Facility: [facility] Address: [address] [place] [address] Performed By: #### 5 7021-8 ####[facility] LABCLIA [id number] [place] [address] Nucleated RBC (Bld) [#/Vol] 10*3/uL Normal <0.01 [facility] Comment on above: Order Comment: Speci men Type: BLOOD SPECIMENOrdering Facility: [facility] Address: [address] [place] [address] Performed By: #### 5 7021-8 ####[facility] LABCLIA [id number] [place] [address] Nucleated RBC/100 WBC (Bld) [Ratio] 0.0 /100 WBC Normal [facility] Comment on above: Order Comment: Speci men Type: BLOOD SPECIMENOrdering Facility: [facility] Address: [address] [place] [address] Performed By: #### 5 7021-8 ####[facility] LABCLIA [id number] [place] [address] Platelet mean volume (Bld) [Entitic vol] 10.1 fL Normal 9.0-12.7 [facility] Comment on above: Order Comment: Speci men Type: BLOOD SPECIMENOrdering Facility: [facility] Address: [address] [place] [address] Performed By: #### 5 7021-8 ####[facility] LABCLIA [id number] [place] [address] Platelets (Bld) [#/Vol] 214 10*3/uL Normal 150-400 [facility] Comment on above: Order Comment: Speci men Type: BLOOD SPECIMENOrdering Facility: [facility] Address: [address] [place] [address] Performed By: #### 5 7021-8 ####[facility] LABCLIA [id number] [place] [address] RBC (Bld) [#/Vol] 4.09 10*6/uL Normal 3.90-5.20 [facility] Comment on above: Order Comment: Speci men Type: BLOOD SPECIMENOrdering Facility: [facility] Address: [address] [place] [address] Performed By: #### 5 7021-8 ####[facility] LABIA [id number] [place] [address] WBC (Bld) [#/Vol] 9.08 10*3/uL Normal 3.70-11.00 [facility] Comment on above: Order Comment: Speci men Type: BLOOD SPECIMENOrdering Facility: [facility] Address: [address] [place] [address] Performed By: #### 5 7021-8 ####[facility] LABIA [id number] [place] [address] CNOVon 09-27-2022 CNOV Normal [facility] CNOVSPon 09-27-2022 CNOVSP Normal [facility] CNPNon 09-27-2022 CNPN Normal [facility] Comprehensive metabolic 2000 panelon 09-27-2022 Albumin [Mass/Vol] 4.3 g/dL Normal 3.9-4.9 [facility] Comment on above: Order Comment: Speci men Type: BLOOD SPECIMENOrdering Facility: [facility] Address: [address] [address] Performed By: #### 2 4323-8 ####[facility] LABCLIA [id number] [place] [address] ALP [Catalytic activity/Vol] 58 U/L Normal 34-123 [facility] Comment on above: Order Comment: Speci men Type: BLOOD SPECIMENOrdering Facility: [facility] Address: [address] [address] Performed By: #### 2 4323-8 ####[facility] LABCLIA [id number] [place] [address] ALT [Catalytic activity/Vol] 9 U/L Normal 7-38 [facility] Comment on above: Order Comment: Speci men Type: BLOOD SPECIMENOrdering Facility: [facility] Address: [address] [place] [address] Performed By: #### 2 4323-8 ####[facility] LABCLIA [id number] [place] [address] Anion gap [Moles/Vol] 9 mmol/L Normal 9-18 [facility] Comment on above: Order Comment: Speci men Type: BLOOD SPECIMENOrdering Facility: [facility] Address: [address] [place] [address] Performed By: #### 2 4323-8 ####[facility] LABCLIA [id number] [place] [address] AST [Catalytic activity/Vol] 11 U/L Low 13-35 [facility] Comment on above: Order Comment: Speci men Type: BLOOD SPECIMENOrdering Facility: [facility] Address: [address] [place] [address] Performed By: #### 2 4323-8 ####[facility] LABCLIA [id number] [place] [address] Bilirubin [Mass/Vol] 0.4 mg/dL Normal 0.2-1.3 [facility] Comment on above: Order Comment: Speci men Type: BLOOD SPECIMENOrdering Facility: [facility] Address: [address] [address] Performed By: #### 2 4323-8 ####[facility] LABCLIA [id number] [place] [address] Calcium [Mass/Vol] 9.6 mg/dL Normal 8.5-10.2 [facility] Comment on above: Order Comment: Speci men Type: BLOOD SPECIMENOrdering Facility: [facility] Address: [address] [address] Performed By: #### 2 4323-8 ####[facility] LABCLIA [id number] [place] [address] Chloride [Moles/Vol] 103 mmol/L Normal 97-105 [facility] Comment on above: Order Comment: Speci men Type: BLOOD SPECIMENOrdering Facility: [facility] Address: [address] [address] Performed By: #### 2 4323-8 ####[facility] LABCLIA [id number] [place] [address] CO2 [Moles/Vol] 29 mmol/L Normal 22-30 [facility] Comment on above: Order Comment: Speci men Type: BLOOD SPECIMENOrdering Facility: [facility] Address: [address] [place] [address] Performed By: #### 2 4323-8 ####[facility] LABCLIA [id number] [place] [address] Creatinine [Mass/Vol] 0.70 mg/dL Normal 0.58-0.96 [facility] Comment on above: Order Comment: Speci men Type: BLOOD SPECIMENOrdering Facility: [facility] Address: [address] [place] [address] Performed By: #### 2 4323-8 ####[facility] LABCLIA [id number] [place] [address] ESTIMATED GLOMERULAR FILTRATION RATE 88 mL/min/1.73m??? Normal >=60 [facility] Comment on above: Order Comment: Kurt barraza Type: BLOOD SPECIMENOrdering Facility: [facility] Address: [address] [place] [address] Result Comment: Kim mated Glomerular Filtration Rate (eGFR) is calculated using the 2020 CKD-EPI creatinine equation. This equation utilizes serum creatinine, sex, and age as parameters. The creatinine assay has traceable calibration to isotope dilution-mass spectrometry. Refer to KDIGO guidelines for clinical interpretation. In patients with unstable renal function, e.g. those with acute kidney injury, the eGFR may not accurately reflect actual GFR. Performed By: #### 2 4323-8 ####[facility] LABCLIA [id number] [place] [address] Glucose [Mass/Vol] 96 mg/dL Normal 74-99 [facility] Comment on above: Order Comment: Kurt barraza Type: BLOOD SPECIMENOrdering Facility: [facility] Address: [address] [place] [address] Result Comment: The [place] Diabetes Association (ADA) provides guidance for cutoff values for fasting glucose and random glucose. The ADA defines fasting as no caloric intake for at least 8 hours. Fasting plasma glucose results between 100 to 125 mg/dL indicate increased risk for diabetes (prediabetes).Fasting plasma glucose results greater than or equal to 126 mg/dL meet the criteria for diagnosis of diabetes. In the absence of unequivocal hyperglycemia, results should be confirmed by repeat testing. In a patient with classic symptoms of hyperglycemia or hyperglycemic crisis, random plasma glucose results greater than or equal to 200 mg/dL meet the criteria for diagnosis of diabetes.Reference: Standards of Medical Care in Diabetes 2016, [place] [employer]. Diabetes Care. 2016.39(Suppl 1). Performed By: #### 2 4323-8 ####[facility] LABCLIA [id number] [place] [address] Potassium [Moles/Vol] 3.7 mmol/L Normal 3.7-5.1 [facility] Comment on above: Order Comment: Speci men Type: BLOOD SPECIMENOrdering Facility: [facility] Address: [address] [address] Performed By: #### 2 4323-8 ####[facility] LABCLIA [id number] [place] [address] Protein [Mass/Vol] 6.5 g/dL Normal 6.3-8.0 [facility] Comment on above: Order Comment: Speci men Type: BLOOD SPECIMENOrdering Facility: [facility] Address: [address] [address] Performed By: #### 2 4323-8 ####[facility] LABCLIA [id number] [place] [address] Sodium [Moles/Vol] 141 mmol/L Normal 136-144 [facility] Comment on above: Order Comment: Speci men Type: BLOOD SPECIMENOrdering Facility: [facility] Address: [address] [place] [address] Performed By: #### 2 4323-8 ####[facility] LABCLIA [id number] [place] [address] Urea nitrogen [Mass/Vol] 15 mg/dL Normal 7-21 [facility] Comment on above: Order Comment: Speci men Type: BLOOD SPECIMENOrdering Facility: [facility] Address: [address] [place] [address] Performed By: #### 2 4323-8 ####[facility] LABIA [id number] [place] [address] CNPNon 09-26-2022 CNPN Normal [facility] CNOVon 09-20-2022 CNOV Normal [facility] CBC W Auto Differential pane l (Bld)on 09-19-2022 Basophils (Bld) [#/Vol] 10*3/uL Normal <0.11 [facility] Comment on above: Order Comment: Speci men Type: BLOOD SPECIMENOrdering Facility: [facility] Address: [address] [address] Performed By: #### 5 7021-8 ####[facility] LABCLIA [id number] [place] [address] Basophils/100 WBC (Bld) 0.2 % Normal [facility] Comment on above: Order Comment: Speci men Type: BLOOD SPECIMENOrdering Facility: [facility] Address: [address] [place] [address] Performed By: #### 5 7021-8 ####[facility] LABCLIA [id number] [place] [address] Differential cell count method Nom (Bld) Auto Normal [facility] Comment on above: Order Comment: Speci men Type: BLOOD SPECIMENOrdering Facility: [facility] Address: [address] [place] [address] Performed By: #### 5 7021-8 ####[facility] LABCLIA [id number] [place] [address] Eosinophils (Bld) [#/Vol] 10*3/uL Normal <0.46 [facility] Comment on above: Order Comment: Speci men Type: BLOOD SPECIMENOrdering Facility: [facility] Address: [address] [place] [address] Performed By: #### 5 7021-8 ####[facility] LABCLIA [id number] [place] [address] Eosinophils/100 WBC (Bld) 0.0 % Normal [facility] Comment on above: Order Comment: Speci men Type: BLOOD SPECIMENOrdering Facility: [facility] Address: [address] [place] [address] Performed By: #### 5 7021-8 ####[facility] LABCLIA [id number] [place] [address] Erythrocyte distribution width (RBC) [Ratio] 14.6 % Normal 11.5-15.0 [facility] Comment on above: Order Comment: Speci men Type: BLOOD SPECIMENOrdering Facility: [facility] Address: [address] [address] Performed By: #### 5 7021-8 ####[facility] LABCLIA [id number] [place] [address] Hematocrit (Bld) [Volume fraction] 38.1 % Normal 36.0-46.0 [facility] Comment on above: Order Comment: Speci men Type: BLOOD SPECIMENOrdering Facility: [facility] Address: [address] [place] [address] Performed By: #### 5 7021-8 ####[facility] LABCLIA [id number] [place] [address] Hemoglobin (Bld) [Mass/Vol] 12.5 g/dL Normal 11.5-15.5 [facility] Comment on above: Order Comment: Speci men Type: BLOOD SPECIMENOrdering Facility: [facility] Address: [address] [address] Performed By: #### 5 7021-8 ####[facility] LABCLIA [id number] [place] [address] Immature granulocytes (Bld) [#/Vol] 0.11 10*3/uL High <0.10 [facility] Comment on above: Order Comment: Speci men Type: BLOOD SPECIMENOrdering Facility: [facility] Address: [address] [place] [address] Performed By: #### 5 7021-8 ####[facility] LABCLIA [id number] [place] [address] Immature granulocytes/100 WBC (Bld) 1.2 % Normal [facility] Comment on above: Order Comment: Speci men Type: BLOOD SPECIMENOrdering Facility: [facility] Address: [address] [place] [address] Performed By: #### 5 7021-8 ####[facility] LABCLIA [id number] [place] [address] Lymphocytes (Bld) [#/Vol] 0.89 10*3/uL Low 1.00-4.00 [facility] Comment on above: Order Comment: Speci men Type: BLOOD SPECIMENOrdering Facility: [facility] Address: [address] [place] [address] Performed By: #### 5 7021-8 ####[facility] LABCLIA [id number] [place] [address] Lymphocytes/100 WBC (Bld) 9.4 % Normal [facility] Comment on above: Order Comment: Speci men Type: BLOOD SPECIMENOrdering Facility: [facility] Address: [address] [place] [address] Performed By: #### 5 7021-8 ####[facility] LABIA [id number] [place] [address] MCH (RBC) [Entitic mass] 30.7 pg Normal 26.0-34.0 [facility] Comment on above: Order Comment: Speci men Type: BLOOD SPECIMENOrdering Facility: [facility] Address: [address] [place] [address] Performed By: #### 5 7021-8 ####[facility] LABCLIA [id number] [place] [address] MCHC (RBC) [Mass/Vol] 32.8 g/dL Normal 30.5-36.0 [facility] Comment on above: Order Comment: Speci men Type: BLOOD SPECIMENOrdering Facility: [facility] Address: [address] [place] [address] Performed By: #### 5 7021-8 ####[facility] LABIA [id number] [place] [address] MCV (RBC) [Entitic vol] 93.6 fL Normal 80.0-100.0 [facility] Comment on above: Order Comment: Speci men Type: BLOOD SPECIMENOrdering Facility: [facility] Address: [address] [address] Performed By: #### 5 7021-8 ####[facility] LABCLIA [id number] [place] [address] Monocytes (Bld) [#/Vol] 0.50 10*3/uL Normal <0.87 [facility] Comment on above: Order Comment: Speci men Type: BLOOD SPECIMENOrdering Facility: [facility] Address: [address] [address] Performed By: #### 5 7021-8 ####[facility] LABCLIA [id number] [place] [address] Monocytes/100 WBC (Bld) 5.3 % Normal [facility] Comment on above: Order Comment: Speci men Type: BLOOD SPECIMENOrdering Facility: [facility] Address: [address] [place] [address] Performed By: #### 5 7021-8 ####[facility] LABCLIA [id number] [place] [address] Neutrophils (Bld) [#/Vol] 7.90 10*3/uL High 1.45-7.50 [facility] Comment on above: Order Comment: Speci men Type: BLOOD SPECIMENOrdering Facility: [facility] Address: [address] [place] [address] Performed By: #### 5 7021-8 ####[facility] LABCLIA [id number] [place] [address] Neutrophils/100 WBC (Bld) 83.9 % Normal [facility] Comment on above: Order Comment: Speci men Type: BLOOD SPECIMENOrdering Facility: [facility] Address: [address] [place] [address] Performed By: #### 5 7021-8 ####[facility] LABCLIA [id number] [place] [address] Nucleated RBC (Bld) [#/Vol] 10*3/uL Normal <0.01 [facility] Comment on above: Order Comment: Speci men Type: BLOOD SPECIMENOrdering Facility: [facility] Address: [address] [place] [address] Performed By: #### 5 7021-8 ####[facility] LABCLIA [id number] [place] [address] Nucleated RBC/100 WBC (Bld) [Ratio] 0.0 /100 WBC Normal [facility] Comment on above: Order Comment: Speci men Type: BLOOD SPECIMENOrdering Facility: [facility] Address: [address] [place] [address] Performed By: #### 5 7021-8 ####[facility] LABCLIA [id number] [place] [address] Platelet mean volume (Bld) [Entitic vol] 10.4 fL Normal 9.0-12.7 [facility] Comment on above: Order Comment: Speci men Type: BLOOD SPECIMENOrdering Facility: [facility] Address: [address] [place] [address] Performed By: #### 5 7021-8 ####[facility] LABCLIA [id number] [place] [address] Platelets (Bld) [#/Vol] 236 10*3/uL Normal 150-400 [facility] Comment on above: Order Comment: Speci men Type: BLOOD SPECIMENOrdering Facility: [facility] Address: [address] [place] [address] Performed By: #### 5 7021-8 ####[facility] LABIA [id number] [place] [address] RBC (Bld) [#/Vol] 4.07 10*6/uL Normal 3.90-5.20 [facility] Comment on above: Order Comment: Speci men Type: BLOOD SPECIMENOrdering Facility: [facility] Address: [address] [address] Performed By: #### 5 7021-8 ####[facility] LABCLIA [id number] [place] [address] WBC (Bld) [#/Vol] 9.42 10*3/uL Normal 3.70-11.00 [facility] Comment on above: Order Comment: Speci men Type: BLOOD SPECIMENOrdering Facility: [facility] Address: [address] [address] Performed By: #### 5 7021-8 ####[facility] LABIA [id number] [place] [address] CNOVSPon 09-19-2022 CNOVSP Normal [facility] CNPNon 09-19-2022 CNPN Normal [facility] CT BRAIN WO IVCONon 09-19-19 CT BRAIN WO IVCON Normal [facility] Comprehensive metabolic 2000 panelon 09-19-2022 Albumin [Mass/Vol] 4.3 g/dL Normal 3.9-4.9 [facility] Comment on above: Order Comment: Speci men Type: BLOOD SPECIMENOrdering Facility: [facility] Address: [address] [address] Performed By: #### 2 4323-8 ####[facility] LABCLIA [id number] [place] [address] ALP [Catalytic activity/Vol] 60 U/L Normal 34-123 [facility] Comment on above: Order Comment: Speci men Type: BLOOD SPECIMENOrdering Facility: [facility] Address: [address] [address] Performed By: #### 2 4323-8 ####[facility] LABCLIA [id number] [place] [address] ALT [Catalytic activity/Vol] 10 U/L Normal 7-38 [facility] Comment on above: Order Comment: Speci men Type: BLOOD SPECIMENOrdering Facility: [facility] Address: [address] [address] Performed By: #### 2 4323-8 ####[facility] LABCLIA [id number] [place] [address] Anion gap [Moles/Vol] 9 mmol/L Normal 9-18 [facility] Comment on above: Order Comment: Speci men Type: BLOOD SPECIMENOrdering Facility: [facility] Address: [address] [address] Performed By: #### 2 4323-8 ####[facility] LABCLIA [id number] [place] [address] AST [Catalytic activity/Vol] 11 U/L Low 13-35 [facility] Comment on above: Order Comment: Speci men Type: BLOOD SPECIMENOrdering Facility: [facility] Address: [address] [place] [address] Performed By: #### 2 4323-8 ####[facility] LABCLIA [id number] [place] [address] Bilirubin [Mass/Vol] 0.4 mg/dL Normal 0.2-1.3 [facility] Comment on above: Order Comment: Speci men Type: BLOOD SPECIMENOrdering Facility: [facility] Address: [address] [address] Performed By: #### 2 4323-8 ####[facility] LABCLIA [id number] [place] [address] Calcium [Mass/Vol] 9.7 mg/dL Normal 8.5-10.2 [facility] Comment on above: Order Comment: Speci men Type: BLOOD SPECIMENOrdering Facility: [facility] Address: [address] [place] [address] Performed By: #### 2 4323-8 ####[facility] LABCLIA [id number] [place] [address] Chloride [Moles/Vol] 103 mmol/L Normal 97-105 [facility] Comment on above: Order Comment: Speci men Type: BLOOD SPECIMENOrdering Facility: [facility] Address: [address] [place] [address] Performed By: #### 2 4323-8 ####[facility] LABCLIA [id number] [place] [address] CO2 [Moles/Vol] 28 mmol/L Normal 22-30 [facility] Comment on above: Order Comment: Speci men Type: BLOOD SPECIMENOrdering Facility: [facility] Address: [address] [place] [address] Performed By: #### 2 4323-8 ####[facility] LABCLIA [id number] [place] [address] Creatinine [Mass/Vol] 0.74 mg/dL Normal 0.58-0.96 [facility] Comment on above: Order Comment: Speci men Type: BLOOD SPECIMENOrdering Facility: [facility] Address: [address] [place] [address] Performed By: #### 2 4323-8 ####[facility] LABCLIA [id number] [place] [address] ESTIMATED GLOMERULAR FILTRATION RATE 82 mL/min/1.73m??? Normal >=60 [facility] Comment on above: Order Comment: Speci men Type: BLOOD SPECIMENOrdering Facility: [facility] Address: [address] [place] [address] Result Comment: Kim mated Glomerular Filtration Rate (eGFR) is calculated using the 2020 CKD-EPI creatinine equation. This equation utilizes serum creatinine, sex, and age as parameters. The creatinine assay has traceable calibration to isotope dilution-mass spectrometry. Refer to KDIGO guidelines for clinical interpretation. In patients with unstable renal function, e.g. those with acute kidney injury, the eGFR may not accurately reflect actual GFR. Performed By: #### 2 4323-8 ####[facility] LABCL[facility] [id number] [place] [address] Glucose [Mass/Vol] 178 mg/dL High 74-99 [facility] Comment on above: Order Comment: Speci men Type: BLOOD SPECIMENOrdering Facility: [facility] Address: [address] [place] [address] Result Comment: The [place] [employer] (ADA) provides guidance for cutoff values for fasting glucose and random glucose. The ADA defines fasting as no caloric intake for at least 8 hours. Fasting plasma glucose results between 100 to 125 mg/dL indicate increased risk for diabetes (prediabetes).Fasting plasma glucose results greater than or equal to 126 mg/dL meet the criteria for diagnosis of diabetes. In the absence of unequivocal hyperglycemia, results should be confirmed by repeat testing. In a patient with classic symptoms of hyperglycemia or hyperglycemic crisis, random plasma glucose results greater than or equal to 200 mg/dL meet the criteria for diagnosis of diabetes.Reference: Standards of Medical Care in Diabetes 2016, [place] [employer]. Diabetes Care. 2016.39(Suppl 1). Performed By: #### 2 4323-8 ####[facility] LABCL[facility] [id number] [place] [address] Potassium [Moles/Vol] 4.2 mmol/L Normal 3.7-5.1 [facility] Comment on above: Order Comment: Speci men Type: BLOOD SPECIMENOrdering Facility: [facility] Address: [address] [place] [address] Performed By: #### 2 4323-8 ####[facility] LABCL[facility] [id number] [place] [address] Protein [Mass/Vol] 6.4 g/dL Normal 6.3-8.0 [facility] Comment on above: Order Comment: Speci men Type: BLOOD SPECIMENOrdering Facility: [facility] Address: [address] [place] [address] Performed By: #### 2 4323-8 ####[facility] LABCL[facility] [id number] [place] [address] Sodium [Moles/Vol] 140 mmol/L Normal 136-144 [facility] Comment on above: Order Comment: Speci men Type: BLOOD SPECIMENOrdering Facility: [facility] Address: [address] [place] [address] Performed By: #### 2 4323-8 ####[facility] LABCLIA [id number] [place] [address] Urea nitrogen [Mass/Vol] 20 mg/dL Normal 7- [facility] Comment on above: Order Comment: Speci men Type: BLOOD SPECIMENOrdering Facility: [facility] Address: [address] [place] [place] [address] Performed By: #### 2 4323-8 ####[facility] LABCLIA [id number] [place] [address] CNPNon 09-18-2022 CNPN Normal [facility] CNSWon 09-15-2022 CNSW Normal [facility] CNOVon 09-14-2022 CNOV Normal [facility] US LEG VEIN DVT VIVIENNE VAS LABo n 09-14-2022 [place] LEG VEIN DVT VIVIENNE VAS LAB Normal [facility] CNNURSEon 09-13-2022 CNNURSE Normal [facility] CNOVon 09-13-2022 CNOV Normal [facility] CNPNon 09-13-2022 CNPN Normal [facility] CNOVSPon 09-12-2022 CNOVSP Normal [facility] CBC W Auto Differential pane l (Bld)on 09-11-2022 Basophils (Bld) [#/Vol] <0.11 k/uL C [facility] Basophils/100 WBC (Bld) 0.2 % C [facility] Differential cell count method Nom (Bld) Auto [facility] Eosinophils (Bld) [#/Vol] 0.08 10*3/uL <0.46 k/uL [facility] Eosinophils/100 WBC (Bld) 1.5 % [facility] Erythrocyte distribution width (RBC) [Ratio] 15.5 % High 11.5 - 15.0 % [facility] Hematocrit (Bld) [Volume fraction] 33.9 % Low 36.0 - 46.0 % [facility] Hemoglobin (Bld) [Mass/Vol] 10.9 g/dL Low 11.5 - 15.5 g/dL [facility] Immature granulocytes (Bld) [#/Vol] 0.09 10*3/uL <0.10 k/uL [facility] Immature granulocytes/100 WBC (Bld) 1.7 % [facility] Lymphocytes (Bld) [#/Vol] 0.89 10*3/uL Low 1.00 - 4.00 k/uL [facility] Lymphocytes/100 WBC (Bld) 17.1 % [facility] MCH (RBC) [Entitic mass] 30.6 pg 26.0 - 34.0 pg [facility] MCHC (RBC) [Mass/Vol] 32.2 g/dL 30.5 - 36.0 g/dL [facility] MCV (RBC) [Entitic vol] 95.2 fL 80.0 - 100.0 fL [facility] Monocytes (Bld) [#/Vol] 0.44 10*3/uL <0.87 k/uL [facility] Monocytes/100 WBC (Bld) 8.5 % C [facility] Neutrophils (Bld) [#/Vol] 3.69 10*3/uL 1.45 - 7.50 k/uL [facility] Neutrophils/100 WBC (Bld) 71.0 % [facility] Nucleated RBC (Bld) [#/Vol] <0.01 k/uL [facility] Nucleated RBC/100 WBC (Bld) [Ratio] 0.0 /100 WBC [facility] Platelet mean volume (Bld) [Entitic vol] 10.8 fL 9.0 - 12.7 fL [facility] Platelets (Bld) [#/Vol] 183 10*3/uL 150 - 400 k/uL [facility] RBC (Bld) [#/Vol] 3.56 10*6/uL Low 3.90 - 5.20 m/uL [facility] WBC (Bld) [#/Vol] 5.20 10*3/uL 3.70 - 11.00 k/uL [facility] Basophils (Bld) [#/Vol] 10*3/uL Normal <0.11 C [facility] Comment on above: Order Comment: Speci men Type: BLOOD SPECIMENOrdering Facility: [facility] Address: [address] [place] [address] Performed By: #### 5 7021-8 ####MICHAEL LABORATORYCLIA [id number] [place] [id number] [place] Basophils/100 WBC (Bld) 0.2 % Normal C [facility] Comment on above: Order Comment: Speci men Type: BLOOD SPECIMENOrdering Facility: [facility] Address: [address] [place] [address] Performed By: #### 5 7021-8 ####MICHAEL LABORATORYCLIA [id number] [place] [address] [place] Differential cell count method Nom (Bld) Auto Normal [facility] Comment on above: Order Comment: Speci men Type: BLOOD SPECIMENOrdering Facility: [facility] Address: [address] [place] [address] Performed By: #### 5 7021-8 ####MICHAEL LABORATORYCLIA [id number] [place] [address] [place] Eosinophils (Bld) [#/Vol] 0.08 10*3/uL Normal <0.46 [facility] Comment on above: Order Comment: Speci men Type: BLOOD SPECIMENOrdering Facility: [facility] Address: [address] [place] [address] Performed By: #### 5 7021-8 ####MICHAEL LABORATORYCLIA [id number] [place] [address] [place] Eosinophils/100 WBC (Bld) 1.5 % Normal [facility] Comment on above: Order Comment: Speci men Type: BLOOD SPECIMENOrdering Facility: [facility] Address: [address] [place] [address] Performed By: #### 5 7021-8 ####MICHAEL LABORATORYCLIA [id number] [place] [address] [place] Erythrocyte distribution width (RBC) [Ratio] 15.5 % High 11.5-15.0 [facility] Comment on above: Order Comment: Speci men Type: BLOOD SPECIMENOrdering Facility: [facility] Address: [address] [place] [address] Performed By: #### 5 7021-8 ####MICHAEL LABORATORYCLIA [id number] [place] [address] [place] Hematocrit (Bld) [Volume fraction] 33.9 % Low 36.0-46.0 [facility] Comment on above: Order Comment: Speci men Type: BLOOD SPECIMENOrdering Facility: [facility] Address: [address] [place] [address] Performed By: #### 5 7021-8 ####MICHAEL LABORATORYCLIA [id number] [place] [address] [place] Hemoglobin (Bld) [Mass/Vol] 10.9 g/dL Low 11.5-15.5 [facility] Comment on above: Order Comment: Speci men Type: BLOOD SPECIMENOrdering Facility: [facility] Address: [address] [place] [address] Performed By: #### 5 7021-8 ####MICHAEL LABORATORYCLIA [id number] [place] [address] [place] Immature granulocytes (Bld) [#/Vol] 0.09 10*3/uL Normal <0.10 [facility] Comment on above: Order Comment: Speci men Type: BLOOD SPECIMENOrdering Facility: [facility] Address: [address] [place] [address] Performed By: #### 5 7021-8 ####MICHAEL LABORATORYCLIA [id number] [place] [address] [place] Immature granulocytes/100 WBC (Bld) 1.7 % Normal [facility] Comment on above: Order Comment: Speci men Type: BLOOD SPECIMENOrdering Facility: [facility] Address: [address] [place] [address] Performed By: #### 5 7021-8 ####MICHAEL LABORATORYCLIA [id number] [place] [address] [place] Lymphocytes (Bld) [#/Vol] 0.89 10*3/uL Low 1.00-4.00 [facility] Comment on above: Order Comment: Speci men Type: BLOOD SPECIMENOrdering Facility: [facility] Address: [address] [place] [address] Performed By: #### 5 7021-8 ####MICHAEL LABORATORYCLIA [id number] [place] [address] [place] Lymphocytes/100 WBC (Bld) 17.1 % Normal [facility] Comment on above: Order Comment: Speci men Type: BLOOD SPECIMENOrdering Facility: [facility] Address: [address] [place] [address] Performed By: #### 5 7021-8 ####MICHAEL LABORATORYCLIA [id number] [place] [address] [place] MCH (RBC) [Entitic mass] 30.6 pg Normal 26.0-34.0 [facility] Comment on above: Order Comment: Speci men Type: BLOOD SPECIMENOrdering Facility: [facility] Address: [address] [place] [address] Performed By: #### 5 7021-8 ####MICHAEL LABORATORYCLIA [id number] [place] [address] [place] MCHC (RBC) [Mass/Vol] 32.2 g/dL Normal 30.5-36.0 [facility] Comment on above: Order Comment: Speci men Type: BLOOD SPECIMENOrdering Facility: [facility] Address: [address] [place] [address] Performed By: #### 5 7021-8 ####MICHAEL LABORATORYCLIA [id number] [place] [address] [place] MCV (RBC) [Entitic vol] 95.2 fL Normal 80.0-100.0 C [facility] Comment on above: Order Comment: Speci men Type: BLOOD SPECIMENOrdering Facility: [facility] Address: [address] [place] [address] Performed By: #### 5 7021-8 ####MICHAEL LABORATORYCLIA [id number] [place] [address] [place] Monocytes (Bld) [#/Vol] 0.44 10*3/uL Normal <0.87 [facility] Comment on above: Order Comment: Speci men Type: BLOOD SPECIMENOrdering Facility: [facility] Address: [address] [place] [address] Performed By: #### 5 7021-8 ####MICHAEL LABORATORYCLIA [id number] [place] [address] [place] Monocytes/100 WBC (Bld) 8.5 % Normal [facility] Comment on above: Order Comment: Speci men Type: BLOOD SPECIMENOrdering Facility: [facility] Address: [address] [place] [address] Performed By: #### 5 7021-8 ####MICHAEL LABORATORYCLIA [id number] [place] [address] [place] Neutrophils (Bld) [#/Vol] 3.69 10*3/uL Normal 1.45-7.50 [facility] Comment on above: Order Comment: Speci men Type: BLOOD SPECIMENOrdering Facility: [facility] Address: [address] [place] [address] Performed By: #### 5 7021-8 ####MICHAEL LABORATORYCLIA [id number] [place] [address] [place] Neutrophils/100 WBC (Bld) 71.0 % Normal [facility] Comment on above: Order Comment: Speci men Type: BLOOD SPECIMENOrdering Facility: [facility] Address: [address] [place] [address] Performed By: #### 5 7021-8 ####MICHAEL LABORATORYCLIA [id number] [place] [address] [place] Nucleated RBC (Bld) [#/Vol] 10*3/uL Normal <0.01 [facility] Comment on above: Order Comment: Speci men Type: BLOOD SPECIMENOrdering Facility: [facility] Address: [address] [place] [address] Performed By: #### 5 7021-8 ####MICHAEL LABORATORYCLIA [id number] [place] [address] [place] Nucleated RBC/100 WBC (Bld) [Ratio] 0.0 /100 WBC Normal [facility] Comment on above: Order Comment: Speci men Type: BLOOD SPECIMENOrdering Facility: [facility] Address: [address] [place] [address] Performed By: #### 5 7021-8 ####MICHAEL LABORATORYCLIA [id number] [place] [address] [place] Platelet mean volume (Bld) [Entitic vol] 10.8 fL Normal 9.0-12.7 [facility] Comment on above: Order Comment: Speci men Type: BLOOD SPECIMENOrdering Facility: [facility] Address: [address] [place] [address] Performed By: #### 5 7021-8 ####MICHAEL LABORATORYCLIA [id number] [place] [address] [place] Platelets (Bld) [#/Vol] 183 10*3/uL Normal 150-400 [facility] Comment on above: Order Comment: Speci men Type: BLOOD SPECIMENOrdering Facility: [facility] Address: [address] [place] [address] Performed By: #### 5 7021-8 ####MICHAEL LABORATORYCLIA [id number] [place] [address] [place] RBC (Bld) [#/Vol] 3.56 10*6/uL Low 3.90-5.20 [facility] Comment on above: Order Comment: Speci men Type: BLOOD SPECIMENOrdering Facility: [facility] Address: [address] [place] [address] Performed By: #### 5 7021-8 ####MICHAEL LABORATORYCLIA [id number] [place] [address] [place] WBC (Bld) [#/Vol] 5.20 10*3/uL Normal 3.70-11.00 [facility] Comment on above: Order Comment: Speci men Type: BLOOD SPECIMENOrdering Facility: [facility] Address: [address] [place] [address] Performed By: #### 5 7021-8 ####MICHAEL LABORATORYCLIA [id number] [address] Comprehensive metabolic 2000 panelon 09-11-2022 Albumin [Mass/Vol] 3.8 g/dL Low 3.9 - 4.9 g/dL [facility] ALP [Catalytic activity/Vol] 52 U/L 34 - 123 U[facility] ALT [Catalytic activity/Vol] 11 U/L 7 - 38 U/L [facility] Anion gap [Moles/Vol] 13 mmol/L 9 - 18 mmol/L [facility] AST [Catalytic activity/Vol] 13 U/L 13 - 35 U/L [facility] Bilirubin [Mass/Vol] 0.3 mg/dL 0.2 - 1 .3 mg/dL [facility] Calcium [Mass/Vol] 9.4 mg/dL 8.5 - 10. 2 mg/dL [facility] Chloride [Moles/Vol] 105 mmol/L 97 - 10 5 mmol/L [facility] CO2 [Moles/Vol] 26 mmol/L 22 - 30 mmol/L [facility] Creatinine [Mass/Vol] 0.64 mg/dL 0.58 - 0.96 mg/dL [facility] Estimated Glomerular Filtration Rate 90 mL/min/1.73m >=60 mL/min/1.7 3m [facility] Glucose [Mass/Vol] 93 mg/dL 74 - 99 mg/dL [facility] Potassium [Moles/Vol] 4.2 mmol/L 3.7 - 5.1 mmol/L [facility] Protein [Mass/Vol] 5.7 g/dL Low 6.3 - 8.0 g/dL [facility] Sodium [Moles/Vol] 144 mmol/L 136 - 144 mmol/L [facility] Urea nitrogen [Mass/Vol] 20 mg/dL 7 - 21 mg/dL [facility] Albumin [Mass/Vol] 3.8 g/dL Low 3.9-4.9 [facility] Comment on above: Order Comment: Speci men Type: BLOOD SPECIMENOrdering Facility: [facility] Address: [address] [place] [address] Performed By: #### 2 4323-8 ####MICHAEL LABORATORYCLIA [id number] [place] [address] [place] ALP [Catalytic activity/Vol] 52 U/L Normal 34-123 [facility] Comment on above: Order Comment: Speci men Type: BLOOD SPECIMENOrdering Facility: [facility] Address: [address] [place] [address] Performed By: #### 2 4323-8 ####MICHAEL LABORATORYCLIA [id number] [place] [address] [place] ALT [Catalytic activity/Vol] 11 U/L Normal 7-38 [facility] Comment on above: Order Comment: Speci men Type: BLOOD SPECIMENOrdering Facility: [facility] Address: [address] [place] [address] Performed By: #### 2 4323-8 ####MICHAEL LABORATORYCLIA [id number] [place] [address] [place] Anion gap [Moles/Vol] 13 mmol/L Normal 9-18 [facility] Comment on above: Order Comment: Speci men Type: BLOOD SPECIMENOrdering Facility: [facility] Address: [address] [place] [address] Performed By: #### 2 4323-8 ####MICHAEL LABORATORYCLIA [id number] [place] [address] [place] AST [Catalytic activity/Vol] 13 U/L Normal 13-35 [facility] Comment on above: Order Comment: Speci men Type: BLOOD SPECIMENOrdering Facility: [facility] Address: [address] [place] [address] Performed By: #### 2 4323-8 ####MICHAEL LABORATORYCLIA [id number] [place] [address] [place] Bilirubin [Mass/Vol] 0.3 mg/dL Normal 0.2-1.3 [facility] Comment on above: Order Comment: Speci men Type: BLOOD SPECIMENOrdering Facility: [facility] Address: [address] [place] [address] Performed By: #### 2 4323-8 ####MICHAEL LABORATORYCLIA [id number] [place] [address] [place] Calcium [Mass/Vol] 9.4 mg/dL Normal 8.5-10.2 [facility] Comment on above: Order Comment: Speci men Type: BLOOD SPECIMENOrdering Facility: [facility] Address: [address] [place] [address] Performed By: #### 2 4323-8 ####MICHAEL LABORATORYCLIA [id number] [place] [address] [place] Chloride [Moles/Vol] 105 mmol/L Normal 97-105 [facility] Comment on above: Order Comment: Speci men Type: BLOOD SPECIMENOrdering Facility: [facility] Address: [address] [place] [address] Performed By: #### 2 4323-8 ####MICHAEL LABORATORYCLIA [id number] [place] [address] [place] CO2 [Moles/Vol] 26 mmol/L Normal 22-30 [facility] Comment on above: Order Comment: Speci men Type: BLOOD SPECIMENOrdering Facility: [facility] Address: [address] [place] [address] Performed By: #### 2 4323-8 ####MICHAEL LABORATORYCLIA [id number] [place] [address] [place] Creatinine [Mass/Vol] 0.64 mg/dL Normal 0.58-0.96 [facility] Comment on above: Order Comment: Speci men Type: BLOOD SPECIMENOrdering Facility: [facility] Address: [address] [place] [address] Performed By: #### 2 4323-8 ####MICHAEL LABORATORYCLIA [id number] [place] [address] [place] ESTIMATED GLOMERULAR FILTRATION RATE 90 mL/min/1.73m??? Normal >=60 [facility] Comment on above: Order Comment: Speci men Type: BLOOD SPECIMENOrdering Facility: [facility] Address: [address] [place] [address] Result Comment: Kim mated Glomerular Filtration Rate (eGFR) is calculated using the 2020 CKD-EPI creatinine equation. This equation utilizes serum creatinine, sex, and age as parameters. The creatinine assay has traceable calibration to isotope dilution-mass spectrometry. Refer to KDIGO guidelines for clinical interpretation. In patients with unstable renal function, e.g. those with acute kidney injury, the eGFR may not accurately reflect actual GFR. Performed By: #### 2 4323-8 ####MICHAEL LABORATORYCLIA [id number] [place] [address] [place] Glucose [Mass/Vol] 93 mg/dL Normal 74-99 [facility] Comment on above: Order Comment: Kurt barraza Type: BLOOD SPECIMENOrdering Facility: [facility] Address: [address] [place] [address] Result Comment: The [place] [employer] (ADA) provides guidance for cutoff values for fasting glucose and random glucose. The ADA defines fasting as no caloric intake for at least 8 hours. Fasting plasma glucose results between 100 to 125 mg/dL indicate increased risk for diabetes (prediabetes).Fasting plasma glucose results greater than or equal to 126 mg/dL meet the criteria for diagnosis of diabetes. In the absence of unequivocal hyperglycemia, results should be confirmed by repeat testing. In a patient with classic symptoms of hyperglycemia or hyperglycemic crisis, random plasma glucose results greater than or equal to 200 mg/dL meet the criteria for diagnosis of diabetes.Reference: Standards of Medical Care in Diabetes 2016, [place] [employer]. Diabetes Care. 2016.39(Suppl 1). Performed By: #### 2 4323-8 ####MICHAEL LABORATORYCLIA [id number] [place] [address] [place] Potassium [Moles/Vol] 4.2 mmol/L Normal 3.7-5.1 [facility] Comment on above: Order Comment: Kurt christi Type: BLOOD SPECIMENOrdering Facility: [facility] Address: [address] [place] [address] Performed By: #### 2 4323-8 ####MICHAEL LABORATORYCLIA [id number] [place] [address] [place] Protein [Mass/Vol] 5.7 g/dL Low 6.3-8.0 [facility] Comment on above: Order Comment: Speci men Type: BLOOD SPECIMENOrdering Facility: [facility] Address: [address] [place] [address] Performed By: #### 2 4323-8 ####MICHAEL LABORATORYCLIA [id number] [place] [address] [place] Sodium [Moles/Vol] 144 mmol/L Normal 136-144 [facility] Comment on above: Order Comment: Speci men Type: BLOOD SPECIMENOrdering Facility: [facility] Address: [address] [place] [address] Performed By: #### 2 4323-8 ####MICHAEL LABORATORYCLIA [id number] [place] [address] [place] Urea nitrogen [Mass/Vol] 20 mg/dL Normal 7-21 [facility] Comment on above: Order Comment: Speci men Type: BLOOD SPECIMENOrdering Facility: [facility] Address: [address] [place] [address] Performed By: #### 2 4323-8 ####MICHAEL LABORATORYCLIA [id number] [place] [address] [place] CBC W Auto Differential pane l (Bld)on 09-07-2022 Basophils (Bld) [#/Vol] 0.03 10*3/uL <0.11 k/uL [facility] Basophils/100 WBC (Bld) 0.5 % [facility] Differential cell count method Nom (Bld) Auto [facility] Eosinophils (Bld) [#/Vol] 0.08 10*3/uL <0.46 k/uL [facility] Eosinophils/100 WBC (Bld) 1.3 % [facility] Erythrocyte distribution width (RBC) [Ratio] 15.4 % High 11.5 - 15.0 % [facility] Hematocrit (Bld) [Volume fraction] 32.7 % Low 36.0 - 46.0 % [facility] Hemoglobin (Bld) [Mass/Vol] 10.4 g/dL Low 11.5 - 15.5 g/dL [facility] Immature granulocytes (Bld) [#/Vol] 0.06 10*3/uL <0.10 k/uL [facility] Immature granulocytes/100 WBC (Bld) 0.9 % [facility] Lymphocytes (Bld) [#/Vol] 0.90 10*3/uL Low 1.00 - 4.00 k/uL [facility] Lymphocytes/100 WBC (Bld) 14.2 % [facility] MCH (RBC) [Entitic mass] 30.5 pg 26.0 - 34.0 pg [facility] MCHC (RBC) [Mass/Vol] 31.8 g/dL 30.5 - 36.0 g/dL [facility] MCV (RBC) [Entitic vol] 95.9 fL 80.0 - 100.0 fL [facility] Monocytes (Bld) [#/Vol] 0.59 10*3/uL <0.87 k/uL [facility] Monocytes/100 WBC (Bld) 9.3 % [facility] Neutrophils (Bld) [#/Vol] 4.67 10*3/uL 1.45 - 7.50 k/uL [facility] Neutrophils/100 WBC (Bld) 73.8 % [facility] Nucleated RBC (Bld) [#/Vol] <0.01 k/uL [facility] Nucleated RBC/100 WBC (Bld) [Ratio] 0.0 /100 WBC [facility] Platelet mean volume (Bld) [Entitic vol] 10.8 fL 9.0 - 12.7 fL [facility] Platelets (Bld) [#/Vol] 177 10*3/uL 150 - 400 k/uL [facility] RBC (Bld) [#/Vol] 3.41 10*6/uL Low 3.90 - 5.20 m/uL [facility] WBC (Bld) [#/Vol] 6.33 10*3/uL 3.70 - 11.00 k/uL [facility] Basophils (Bld) [#/Vol] 0.03 10*3/uL Normal <0.11 [facility] Comment on above: Order Comment: Speci men Type: BLOOD SPECIMENOrdering Facility: [facility] Address: [address] [place] [address] Performed By: #### 5 7021-8 ####MICHAEL LABORATORYCLIA [id number] [place] [address] [place] Basophils/100 WBC (Bld) 0.5 % Normal C [facility] Comment on above: Order Comment: Speci men Type: BLOOD SPECIMENOrdering Facility: [facility] Address: [address] [place] [address] Performed By: #### 5 7021-8 ####MICHAEL LABORATORYCLIA [id number] [place] [address] [place] Differential cell count method Nom (Bld) Auto Normal [facility] Comment on above: Order Comment: Speci men Type: BLOOD SPECIMENOrdering Facility: [facility] Address: [address] [place] [address] Performed By: #### 5 7021-8 ####MICHAEL LABORATORYCLIA [id number] [place] [address] [place] Eosinophils (Bld) [#/Vol] 0.08 10*3/uL Normal <0.46 [facility] Comment on above: Order Comment: Speci men Type: BLOOD SPECIMENOrdering Facility: [facility] Address: [address] [place] [address] Performed By: #### 5 7021-8 ####MICHAEL LABORATORYCLIA [id number] [place] [address] [place] Eosinophils/100 WBC (Bld) 1.3 % Normal [facility] Comment on above: Order Comment: Speci men Type: BLOOD SPECIMENOrdering Facility: [facility] Address: [address] [place] [address] Performed By: #### 5 7021-8 ####MICHAEL LABORATORYCLIA [id number] [place] [address] [place] Erythrocyte distribution width (RBC) [Ratio] 15.4 % High 11.5-15.0 [facility] Comment on above: Order Comment: Speci men Type: BLOOD SPECIMENOrdering Facility: [facility] Address: [address] [place] [address] Performed By: #### 5 7021-8 ####MICHAEL LABORATORYCLIA [id number] [place] [address] [place] Hematocrit (Bld) [Volume fraction] 32.7 % Low 36.0-46.0 [facility] Comment on above: Order Comment: Speci men Type: BLOOD SPECIMENOrdering Facility: [facility] Address: [address] [place] [address] Performed By: #### 5 7021-8 ####MICHAEL LABORATORYCLIA [id number] [place] [address] [place] Hemoglobin (Bld) [Mass/Vol] 10.4 g/dL Low 11.5-15.5 [facility] Comment on above: Order Comment: Speci men Type: BLOOD SPECIMENOrdering Facility: [facility] Address: [address] [place] [address] Performed By: #### 5 7021-8 ####MICHAEL LABORATORYCLIA [id number] [place] [address] [place] Immature granulocytes (Bld) [#/Vol] 0.06 10*3/uL Normal <0.10 [facility] Comment on above: Order Comment: Speci men Type: BLOOD SPECIMENOrdering Facility: [facility] Address: [address] [place] [address] Performed By: #### 5 7021-8 ####MICHAEL LABORATORYCLIA [id number] [place] [address] [place] Immature granulocytes/100 WBC (Bld) 0.9 % Normal [facility] Comment on above: Order Comment: Speci men Type: BLOOD SPECIMENOrdering Facility: [facility] Address: [address] [place] [address] Performed By: #### 5 7021-8 ####MICHAEL LABORATORYCLIA [id number] [place] [address] [place] Lymphocytes (Bld) [#/Vol] 0.90 10*3/uL Low 1.00-4.00 [facility] Comment on above: Order Comment: Speci men Type: BLOOD SPECIMENOrdering Facility: [facility] Address: [address] [place] [address] Performed By: #### 5 7021-8 ####MICHAEL LABORATORYCLIA [id number] [place] [address] [place] Lymphocytes/100 WBC (Bld) 14.2 % Normal [facility] Comment on above: Order Comment: Speci men Type: BLOOD SPECIMENOrdering Facility: [facility] Address: [address] [place] [address] Performed By: #### 5 7021-8 ####MICHAEL LABORATORYCLIA [id number] [place] [address] [place] MCH (RBC) [Entitic mass] 30.5 pg Normal 26.0-34.0 [facility] Comment on above: Order Comment: Speci men Type: BLOOD SPECIMENOrdering Facility: [facility] Address: [address] [place] [address] Performed By: #### 5 7021-8 ####MICHAEL LABORATORYCLIA [id number] [place] [address] [place] MCHC (RBC) [Mass/Vol] 31.8 g/dL Normal 30.5-36.0 [facility] Comment on above: Order Comment: Speci men Type: BLOOD SPECIMENOrdering Facility: [facility] Address: [address] [place] [address] Performed By: #### 5 7021-8 ####MICHAEL LABORATORYCLIA [id number] [place] [address] [place] MCV (RBC) [Entitic vol] 95.9 fL Normal 80.0-100.0 [facility] Comment on above: Order Comment: Speci men Type: BLOOD SPECIMENOrdering Facility: [facility] Address: [address] [place] [address] Performed By: #### 5 7021-8 ####MICHAEL LABORATORYCLIA [id number] [place] [address] [place] Monocytes (Bld) [#/Vol] 0.59 10*3/uL Normal <0.87 [facility] Comment on above: Order Comment: Speci men Type: BLOOD SPECIMENOrdering Facility: [facility] Address: [address] [place] [address] Performed By: #### 5 7021-8 ####MICHAEL LABORATORYCLIA [id number] [place] [address] [place] Monocytes/100 WBC (Bld) 9.3 % Normal [facility] Comment on above: Order Comment: Speci men Type: BLOOD SPECIMENOrdering Facility: [facility] Address: [address] [place] [address] Performed By: #### 5 7021-8 ####MICHAEL LABORATORYCLIA [id number] [place] [address] [place] Neutrophils (Bld) [#/Vol] 4.67 10*3/uL Normal 1.45-7.50 [facility] Comment on above: Order Comment: Speci men Type: BLOOD SPECIMENOrdering Facility: [facility] Address: [address] [place] [address] Performed By: #### 5 7021-8 ####MICHAEL LABORATORYCLIA [id number] [place] [address] [place] Neutrophils/100 WBC (Bld) 73.8 % Normal [facility] Comment on above: Order Comment: Speci men Type: BLOOD SPECIMENOrdering Facility: [facility] Address: [address] [place] [address] Performed By: #### 5 7021-8 ####MICHAEL LABORATORYCLIA [id number] [place] [address] [place] Nucleated RBC (Bld) [#/Vol] 10*3/uL Normal <0.01 [facility] Comment on above: Order Comment: Speci men Type: BLOOD SPECIMENOrdering Facility: [facility] Address: [address] [place] [address] Performed By: #### 5 7021-8 ####MICHAEL LABORATORYCLIA [id number] [place] [address] [place] Nucleated RBC/100 WBC (Bld) [Ratio] 0.0 /100 WBC Normal [facility] Comment on above: Order Comment: Speci men Type: BLOOD SPECIMENOrdering Facility: [facility] Address: [address] [place] [address] Performed By: #### 5 7021-8 ####MICHAEL LABORATORYCLIA [id number] [place] [address] [place] Platelet mean volume (Bld) [Entitic vol] 10.8 fL Normal 9.0-12.7 [facility] Comment on above: Order Comment: Speci men Type: BLOOD SPECIMENOrdering Facility: [facility] Address: [address] [place] [address] Performed By: #### 5 7021-8 ####MICHAEL LABORATORYCLIA [id number] [place] [address] [place] Platelets (Bld) [#/Vol] 177 10*3/uL Normal 150-400 [facility] Comment on above: Order Comment: Speci men Type: BLOOD SPECIMENOrdering Facility: [facility] Address: [address] [place] [address] Performed By: #### 5 7021-8 ####MICHAEL LABORATORYCLIA [id number] [place] [address] [place] RBC (Bld) [#/Vol] 3.41 10*6/uL Low 3.90-5.20 [facility] Comment on above: Order Comment: Speci men Type: BLOOD SPECIMENOrdering Facility: [facility] Address: [address] [place] [address] Performed By: #### 5 7021-8 ####MICHAEL LABORATORYCLIA [id number] [place] [address] [place] WBC (Bld) [#/Vol] 6.33 10*3/uL Normal 3.70-11.00 [facility] Comment on above: Order Comment: Speci men Type: BLOOD SPECIMENOrdering Facility: [facility] Address: [address] [place] [address] Performed By: #### 5 7021-8 ####MICHAEL LABORATORYCLIA [id number] [address] OF [facility] Comprehensive metabolic 2000 panelon 09-07-2022 Albumin [Mass/Vol] 3.7 g/dL Low 3.9 - 4.9 g/dL [facility] ALP [Catalytic activity/Vol] 47 U/L 34 - 123 U/L [facility] ALT [Catalytic activity/Vol] 13 U/L 7 - 38 U/L [facility] Anion gap [Moles/Vol] 9 mmol/L 9 - 18 mmol/L [facility] AST [Catalytic activity/Vol] 12 U/L Low 13 - 35 U/L [facility] Bilirubin [Mass/Vol] 0.3 mg/dL 0.2 - 1 .3 mg/dL [facility] Calcium [Mass/Vol] 8.9 mg/dL 8.5 - 10. 2 mg/dL [facility] Chloride [Moles/Vol] 105 mmol/L 97 - 10 5 mmol/L [facility] CO2 [Moles/Vol] 27 mmol/L 22 - 30 mmol/L [facility] Creatinine [Mass/Vol] 0.62 mg/dL 0.58 - 0.96 mg/dL [facility] Estimated Glomerular Filtration Rate 91 mL/min/1.73m >=60 mL/min/1.7 3m [facility] Glucose [Mass/Vol] 82 mg/dL 74 - 99 mg/dL [facility] Potassium [Moles/Vol] 4.2 mmol/L 3.7 - 5.1 mmol/L [facility] Protein [Mass/Vol] 5.6 g/dL Low 6.3 - 8.0 g/dL [facility] Sodium [Moles/Vol] 141 mmol/L 136 - 144 mmol/L [facility] Urea nitrogen [Mass/Vol] 26 mg/dL High 7 - 21 mg/dL [facility] Albumin [Mass/Vol] 3.7 g/dL Low 3.9-4.9 [facility] Comment on above: Order Comment: Speci men Type: BLOOD SPECIMENOrdering Facility: [facility] Address: [address] [place] [address] Performed By: #### 2 4323-8 ####MICHAEL LABORATORYCLIA [id number] [place] [address] [place] ALP [Catalytic activity/Vol] 47 U/L Normal 34-123 [facility] Comment on above: Order Comment: Speci men Type: BLOOD SPECIMENOrdering Facility: [facility] Address: [address] [place] [address] Performed By: #### 2 4323-8 ####MICHAEL LABORATORYCLIA [id number] [place] [address] [place] ALT [Catalytic activity/Vol] 13 U/L Normal 7-38 [facility] Comment on above: Order Comment: Speci men Type: BLOOD SPECIMENOrdering Facility: [facility] Address: [address] [place] [address] Performed By: #### 2 4323-8 ####MICHAEL LABORATORYCLIA [id number] [place] [address] [place] Anion gap [Moles/Vol] 9 mmol/L Normal 9-18 [facility] Comment on above: Order Comment: Speci men Type: BLOOD SPECIMENOrdering Facility: [facility] Address: [address] [place] [address] Performed By: #### 2 4323-8 ####MICHAEL LABORATORYCLIA [id number] [place] [address] [place] AST [Catalytic activity/Vol] 12 U/L Low 13-35 [facility] Comment on above: Order Comment: Speci men Type: BLOOD SPECIMENOrdering Facility: [facility] Address: [address] [place] [address] Performed By: #### 2 4323-8 ####MICHAEL LABORATORYCLIA [id number] [place] [address] [place] Bilirubin [Mass/Vol] 0.3 mg/dL Normal 0.2-1.3 [facility] Comment on above: Order Comment: Speci men Type: BLOOD SPECIMENOrdering Facility: [facility] Address: [address] [place] [address] Performed By: #### 2 4323-8 ####MICHAEL LABORATORYCLIA [id number] [place] [address] [place] Calcium [Mass/Vol] 8.9 mg/dL Normal 8.5-10.2 [facility] Comment on above: Order Comment: Speci men Type: BLOOD SPECIMENOrdering Facility: [facility] Address: [address] [place] [address] Performed By: #### 2 4323-8 ####MICHAEL LABORATORYCLIA [id number] [place] [address] [place] Chloride [Moles/Vol] 105 mmol/L Normal 97-105 [facility] Comment on above: Order Comment: Speci men Type: BLOOD SPECIMENOrdering Facility: [facility] Address: [address] [place] [address] Performed By: #### 2 4323-8 ####MICHAEL LABORATORYCLIA [id number] [place] [address] [place] CO2 [Moles/Vol] 27 mmol/L Normal 22-30 [facility] Comment on above: Order Comment: Speci men Type: BLOOD SPECIMENOrdering Facility: [facility] Address: [address] [place] [address] Performed By: #### 2 4323-8 ####MICHAEL LABORATORYCLIA [id number] [place] [address] [place] Creatinine [Mass/Vol] 0.62 mg/dL Normal 0.58-0.96 [facility] Comment on above: Order Comment: Speci men Type: BLOOD SPECIMENOrdering Facility: [facility] Address: [address] [place] [address] Performed By: #### 2 4323-8 ####MICHAEL LABORATORYCLIA [id number] [place] [address] [place] ESTIMATED GLOMERULAR FILTRATION RATE 91 mL/min/1.73m??? Normal >=60 [facility] Comment on above: Order Comment: Kurt barraza Type: BLOOD SPECIMENOrdering Facility: [facility] Address: [address] [place] [address] Result Comment: Kim mated Glomerular Filtration Rate (eGFR) is calculated using the 2020 CKD-EPI creatinine equation. This equation utilizes serum creatinine, sex, and age as parameters. The creatinine assay has traceable calibration to isotope dilution-mass spectrometry. Refer to KDIGO guidelines for clinical interpretation. In patients with unstable renal function, e.g. those with acute kidney injury, the eGFR may not accurately reflect actual GFR. Performed By: #### 2 4323-8 ####MICHAEL LABORATORYCLIA [id number] [place] [address] [place] Glucose [Mass/Vol] 82 mg/dL Normal 74-99 [facility] Comment on above: Order Comment: Kurt barraza Type: BLOOD SPECIMENOrdering Facility: [facility] Address: [address] [place] [address] Result Comment: The [place] [employer] (ADA) provides guidance for cutoff values for fasting glucose and random glucose. The ADA defines fasting as no caloric intake for at least 8 hours. Fasting plasma glucose results between 100 to 125 mg/dL indicate increased risk for diabetes (prediabetes).Fasting plasma glucose results greater than or equal to 126 mg/dL meet the criteria for diagnosis of diabetes. In the absence of unequivocal hyperglycemia, results should be confirmed by repeat testing. In a patient with classic symptoms of hyperglycemia or hyperglycemic crisis, random plasma glucose results greater than or equal to 200 mg/dL meet the criteria for diagnosis of diabetes.Reference: Standards of Medical Care in Diabetes 2016, [place] [employer]. Diabetes Care. 2016.39(Suppl 1). Performed By: #### 2 4323-8 ####MICHAEL LABORATORYCLIA [id number] [place] [address] [place] Potassium [Moles/Vol] 4.2 mmol/L Normal 3.7-5.1 [facility] Comment on above: Order Comment: Kurt barraza Type: BLOOD SPECIMENOrdering Facility: [facility] Address: [address] [place], [place] [address] Performed By: #### 2 4323-8 ####MICHAEL LABORATORYCLIA [id number] [place] [address] [place] Protein [Mass/Vol] 5.6 g/dL Low 6.3-8.0 [facility] Comment on above: Order Comment: Speci men Type: BLOOD SPECIMENOrdering Facility: [facility] Address: [address] [place] [address] Performed By: #### 2 4323-8 ####MICHAEL LABORATORYCLIA [id number] [place] [address] [place] Sodium [Moles/Vol] 141 mmol/L Normal 136-144 [facility] Comment on above: Order Comment: Speci men Type: BLOOD SPECIMENOrdering Facility: [facility] Address: [address] [place] [address] Performed By: #### 2 4323-8 ####MICHAEL LABORATORYCLIA [id number] [place] [address] [place] Urea nitrogen [Mass/Vol] 26 mg/dL High 7-21 [facility] Comment on above: Order Comment: Speci men Type: BLOOD SPECIMENOrdering Facility: [facility] Address: [address] [place] [address] Performed By: #### 2 4323-8 ####MICHAEL LABORATORYCLIA [id number] [place] [address] [place] CBC W Auto Differential pane l (Bld)on 09-04-2022 Basophils (Bld) [#/Vol] <0.11 k/uL [facility] Basophils/100 WBC (Bld) 0.3 % [facility] Differential cell count method Nom (Bld) Auto [facility] Eosinophils (Bld) [#/Vol] 0.05 10*3/uL <0.46 k/uL [facility] Eosinophils/100 WBC (Bld) 0.7 % [facility] Erythrocyte distribution width (RBC) [Ratio] 15.0 % 11.5 - 15.0 % [facility] Hematocrit (Bld) [Volume fraction] 31.6 % Low 36.0 - 46.0 % [facility] Hemoglobin (Bld) [Mass/Vol] 10.4 g/dL Low 11.5 - 15.5 g/dL [facility] Immature granulocytes (Bld) [#/Vol] 0.07 10*3/uL <0.10 k/uL [facility] Immature granulocytes/100 WBC (Bld) 1.0 % [facility] Lymphocytes (Bld) [#/Vol] 0.95 10*3/uL Low 1.00 - 4.00 k/uL [facility] Lymphocytes/100 WBC (Bld) 14.1 % [facility] MCH (RBC) [Entitic mass] 30.8 pg 26.0 - 34.0 pg [facility] MCHC (RBC) [Mass/Vol] 32.9 g/dL 30.5 - 36.0 g/dL [facility] MCV (RBC) [Entitic vol] 93.5 fL 80.0 - 100.0 fL [facility] Monocytes (Bld) [#/Vol] 0.45 10*3/uL <0.87 k/uL [facility] Monocytes/100 WBC (Bld) 6.7 % [facility] Neutrophils (Bld) [#/Vol] 5.19 10*3/uL 1.45 - 7.50 k/uL [facility] Neutrophils/100 WBC (Bld) 77.2 % [facility] Nucleated RBC (Bld) [#/Vol] <0.01 k/uL [facility] Nucleated RBC/100 WBC (Bld) [Ratio] 0.0 /100 WBC [facility] Platelet mean volume (Bld) [Entitic vol] 10.7 fL 9.0 - 12.7 fL [facility] Platelets (Bld) [#/Vol] 174 10*3/uL 150 - 400 k/uL [facility] RBC (Bld) [#/Vol] 3.38 10*6/uL Low 3.90 - 5.20 m/uL [facility] WBC (Bld) [#/Vol] 6.73 10*3/uL 3.70 - 11.00 k/uL [facility] Basophils (Bld) [#/Vol] 10*3/uL Normal <0.11 [facility] Comment on above: Order Comment: Speci men Type: BLOOD SPECIMENOrdering Facility: [facility] Address: [address] [place] [address] Performed By: #### 5 7021-8 ####MICHAEL LABORATORYCLIA [id number] [place] [address] [place] Basophils/100 WBC (Bld) 0.3 % Normal [facility] Comment on above: Order Comment: Speci men Type: BLOOD SPECIMENOrdering Facility: [facility] Address: [address] [place] [address] Performed By: #### 5 7021-8 ####MICHAEL LABORATORYCLIA [id number] [place] [address] [place] Differential cell count method Nom (Bld) Auto Normal [facility] Comment on above: Order Comment: Speci men Type: BLOOD SPECIMENOrdering Facility: [facility] Address: [address] [place] [address] Performed By: #### 5 7021-8 ####MICHAEL LABORATORYCLIA [id number] [place] [address] [place] Eosinophils (Bld) [#/Vol] 0.05 10*3/uL Normal <0.46 [facility] Comment on above: Order Comment: Speci men Type: BLOOD SPECIMENOrdering Facility: [facility] Address: [address] [place] [address] Performed By: #### 5 7021-8 ####MICHAEL LABORATORYCLIA [id number] [place] [address] [place] Eosinophils/100 WBC (Bld) 0.7 % Normal [facility] Comment on above: Order Comment: Speci men Type: BLOOD SPECIMENOrdering Facility: [facility] Address: [address] [place] [address] Performed By: #### 5 7021-8 ####MICHAEL LABORATORYCLIA [id number] [place] [address] [place] Erythrocyte distribution width (RBC) [Ratio] 15.0 % Normal 11.5-15.0 [facility] Comment on above: Order Comment: Speci men Type: BLOOD SPECIMENOrdering Facility: [facility] Address: [address] [place] [address] Performed By: #### 5 7021-8 ####MICHAEL LABORATORYCLIA [id number] [place] [address] [place] Hematocrit (Bld) [Volume fraction] 31.6 % Low 36.0-46.0 [facility] Comment on above: Order Comment: Speci men Type: BLOOD SPECIMENOrdering Facility: [facility] Address: [address] [place] [address] Performed By: #### 5 7021-8 ####MICHAEL LABORATORYCLIA [id number] [place] [address] [place] Hemoglobin (Bld) [Mass/Vol] 10.4 g/dL Low 11.5-15.5 [facility] Comment on above: Order Comment: Speci men Type: BLOOD SPECIMENOrdering Facility: [facility] Address: [address] [place] [address] Performed By: #### 5 7021-8 ####MICHAEL LABORATORYCLIA [id number] [place] [address] [place] Immature granulocytes (Bld) [#/Vol] 0.07 10*3/uL Normal <0.10 [facility] Comment on above: Order Comment: Speci men Type: BLOOD SPECIMENOrdering Facility: [facility] Address: [address] [place] [address] Performed By: #### 5 7021-8 ####MICHAEL LABORATORYCLIA [id number] [place] [address] [place] Immature granulocytes/100 WBC (Bld) 1.0 % Normal [facility] Comment on above: Order Comment: Speci men Type: BLOOD SPECIMENOrdering Facility: [facility] Address: [address] [place] [address] Performed By: #### 5 7021-8 ####MICHAEL LABORATORYCLIA [id number] [place] [address] [place] Lymphocytes (Bld) [#/Vol] 0.95 10*3/uL Low 1.00-4.00 [facility] Comment on above: Order Comment: Speci men Type: BLOOD SPECIMENOrdering Facility: [facility] Address: [address] [place] [address] Performed By: #### 5 7021-8 ####MICHAEL LABORATORYCLIA [id number] [place] [address] [place] Lymphocytes/100 WBC (Bld) 14.1 % Normal [facility] Comment on above: Order Comment: Speci men Type: BLOOD SPECIMENOrdering Facility: [facility] Address: [address] [place] [address] Performed By: #### 5 7021-8 ####MICHAEL LABORATORYCLIA [id number] [place] [address] [place] MCH (RBC) [Entitic mass] 30.8 pg Normal 26.0-34.0 [facility] Comment on above: Order Comment: Speci men Type: BLOOD SPECIMENOrdering Facility: [facility] Address: [address] [place] [address] Performed By: #### 5 7021-8 ####MICHAEL LABORATORYCLIA [id number] [place] [address] [place] MCHC (RBC) [Mass/Vol] 32.9 g/dL Normal 30.5-36.0 [facility] Comment on above: Order Comment: Speci men Type: BLOOD SPECIMENOrdering Facility: [facility] Address: [address] [place] [address] Performed By: #### 5 7021-8 ####MICHAEL LABORATORYCLIA [id number] [place] [address] [place] MCV (RBC) [Entitic vol] 93.5 fL Normal 80.0-100.0 [facility] Comment on above: Order Comment: Speci men Type: BLOOD SPECIMENOrdering Facility: [facility] Address: [address] [place] [address] Performed By: #### 5 7021-8 ####MICHAEL LABORATORYCLIA [id number] [place] [address] [place] Monocytes (Bld) [#/Vol] 0.45 10*3/uL Normal <0.87 [facility] Comment on above: Order Comment: Speci men Type: BLOOD SPECIMENOrdering Facility: [facility] Address: [address] [place] [address] Performed By: #### 5 7021-8 ####MICHAEL LABORATORYCLIA [id number] [place] [address] [place] Monocytes/100 WBC (Bld) 6.7 % Normal [facility] Comment on above: Order Comment: Speci men Type: BLOOD SPECIMENOrdering Facility: [facility] Address: [address] [place] [address] Performed By: #### 5 7021-8 ####MICHAEL LABORATORYCLIA [id number] [place] [address] [place] Neutrophils (Bld) [#/Vol] 5.19 10*3/uL Normal 1.45-7.50 [facility] Comment on above: Order Comment: Speci men Type: BLOOD SPECIMENOrdering Facility: [facility] Address: [address] [place] [address] Performed By: #### 5 7021-8 ####MICHAEL LABORATORYCLIA [id number] [place] [address] [place] Neutrophils/100 WBC (Bld) 77.2 % Normal [facility] Comment on above: Order Comment: Speci men Type: BLOOD SPECIMENOrdering Facility: [facility] Address: [address] [place] [address] Performed By: #### 5 7021-8 ####MICHAEL LABORATORYCLIA [id number] [place] [address] [place] Nucleated RBC (Bld) [#/Vol] 10*3/uL Normal <0.01 [facility] Comment on above: Order Comment: Speci men Type: BLOOD SPECIMENOrdering Facility: [facility] Address: [address] [place] [address] Performed By: #### 5 7021-8 ####MICHAEL LABORATORYCLIA [id number] [place] [address] [place] Nucleated RBC/100 WBC (Bld) [Ratio] 0.0 /100 WBC Normal [facility] Comment on above: Order Comment: Speci men Type: BLOOD SPECIMENOrdering Facility: [facility] Address: [address] [place] [address] Performed By: #### 5 7021-8 ####MICHAEL LABORATORYCLIA [id number] [place] [address] [place] Platelet mean volume (Bld) [Entitic vol] 10.7 fL Normal 9.0-12.7 [facility] Comment on above: Order Comment: Speci men Type: BLOOD SPECIMENOrdering Facility: [facility] Address: [address] [place] [address] Performed By: #### 5 7021-8 ####MICHAEL LABORATORYCLIA [id number] [place] [id number] [place] Platelets (Bld) [#/Vol] 174 10*3/uL Normal 150-400 [facility] Comment on above: Order Comment: Speci men Type: BLOOD SPECIMENOrdering Facility: [facility] Address: [address] [place] [address] Performed By: #### 5 7021-8 ####MICHAEL LABORATORYCLIA [id number] [place] [id number] [place] RBC (Bld) [#/Vol] 3.38 10*6/uL Low 3.90-5.20 [facility] Comment on above: Order Comment: Speci men Type: BLOOD SPECIMENOrdering Facility: [facility] Address: [address] [place] [address] Performed By: #### 5 7021-8 ####MICHAEL LABORATORYCLIA [id number] [place] [address] [place] WBC (Bld) [#/Vol] 6.73 10*3/uL Normal 3.70-11.00 [facility] Comment on above: Order Comment: Speci men Type: BLOOD SPECIMENOrdering Facility: [facility] Address: [address] [place] [address] Performed By: #### 5 7021-8 ####MICHAEL LABORATORYCLIA [id number] [place] [address] [place] CNPNon 09-04-2022 CNPN Normal [facility] Comprehensive metabolic 2000 panelon 09-04-2022 Albumin [Mass/Vol] 3.8 g/dL Low 3.9 - 4.9 g/dL [facility] ALP [Catalytic activity/Vol] 49 U/L 34 - 123 U/L [facility] ALT [Catalytic activity/Vol] 14 U/L 7 - 38 U/L [facility] Anion gap [Moles/Vol] 11 mmol/L 9 - 18 mmol/L [facility] AST [Catalytic activity/Vol] 11 U/L Low 13 - 35 U/L [facility] Bilirubin [Mass/Vol] 0.3 mg/dL 0.2 - 1 .3 mg/dL [facility] Calcium [Mass/Vol] 9.2 mg/dL 8.5 - 10. 2 mg/dL [facility] Chloride [Moles/Vol] 106 mmol/L High 97 - 10 5 mmol/L [facility] CO2 [Moles/Vol] 26 mmol/L 22 - 30 mmol/L [facility] Creatinine [Mass/Vol] 0.60 mg/dL 0.58 - 0.96 mg/dL [facility] Estimated Glomerular Filtration Rate 91 mL/min/1.73m >=60 mL/min/1.7 3m [facility] Glucose [Mass/Vol] 100 mg/dL High 74 - 99 mg/dL [facility] Potassium [Moles/Vol] 4.7 mmol/L 3.7 - 5.1 mmol/L [facility] Protein [Mass/Vol] 5.7 g/dL Low 6.3 - 8.0 g/dL [facility] Sodium [Moles/Vol] 143 mmol/L 136 - 144 mmol/L [facility] Urea nitrogen [Mass/Vol] 28 mg/dL High 7 - 21 mg/dL [facility] Albumin [Mass/Vol] 3.8 g/dL Low 3.9-4.9 [facility] Comment on above: Order Comment: Speci men Type: BLOOD SPECIMENOrdering Facility: [facility] Address: [address] [place] [address] Performed By: #### 2 4323-8 ####MICHAEL LABORATORYCLIA [id number] [place] [address] [place] ALP [Catalytic activity/Vol] 49 U/L Normal 34-123 [facility] Comment on above: Order Comment: Speci men Type: BLOOD SPECIMENOrdering Facility: [facility] Address: [address] [place] [address] Performed By: #### 2 4323-8 ####MICHAEL LABORATORYCLIA [id number] [place] [address] [place] ALT [Catalytic activity/Vol] 14 U/L Normal 7-38 [facility] Comment on above: Order Comment: Speci men Type: BLOOD SPECIMENOrdering Facility: [facility] Address: [address] [place] [address] Performed By: #### 2 4323-8 ####MICHAEL LABORATORYCLIA [id number] [place] [address] [place] Anion gap [Moles/Vol] 11 mmol/L Normal 9-18 [facility] Comment on above: Order Comment: Speci men Type: BLOOD SPECIMENOrdering Facility: [facility] Address: [address] [place] [address] Performed By: #### 2 4323-8 ####MICHAEL LABORATORYCLIA [id number] [place] [address] [place] AST [Catalytic activity/Vol] 11 U/L Low 13-35 [facility] Comment on above: Order Comment: Speci men Type: BLOOD SPECIMENOrdering Facility: [facility] Address: [address] [place] [address] Performed By: #### 2 4323-8 ####MICHAEL LABORATORYCLIA [id number] [place] [address] [place] Bilirubin [Mass/Vol] 0.3 mg/dL Normal 0.2-1.3 [facility] Comment on above: Order Comment: Speci men Type: BLOOD SPECIMENOrdering Facility: [facility] Address: [address] [place] [address] Performed By: #### 2 4323-8 ####MICHAEL LABORATORYCLIA [id number] [place] [address] [place] Calcium [Mass/Vol] 9.2 mg/dL Normal 8.5-10.2 [facility] Comment on above: Order Comment: Speci men Type: BLOOD SPECIMENOrdering Facility: [facility] Address: [address] [place] [address] Performed By: #### 2 4323-8 ####MICHAEL LABORATORYCLIA [id number] [place] [address] [place] Chloride [Moles/Vol] 106 mmol/L High 97-105 [facility] Comment on above: Order Comment: Speci men Type: BLOOD SPECIMENOrdering Facility: [facility] Address: [address] [place] [address] Performed By: #### 2 4323-8 ####MICHAEL LABORATORYCLIA [id number] [place] [address] [place] CO2 [Moles/Vol] 26 mmol/L Normal 22-30 [facility] Comment on above: Order Comment: Speci men Type: BLOOD SPECIMENOrdering Facility: [facility] Address: [address] [place] [address] Performed By: #### 2 4323-8 ####MICHAEL LABORATORYCLIA [id number] [place] [address] [place] Creatinine [Mass/Vol] 0.60 mg/dL Normal 0.58-0.96 [facility] Comment on above: Order Comment: Speci men Type: BLOOD SPECIMENOrdering Facility: [facility] Address: [address] [place] [address] Performed By: #### 2 4323-8 ####MICHAEL LABORATORYCLIA [id number] [place] [address] [place] ESTIMATED GLOMERULAR FILTRATION RATE 91 mL/min/1.73m??? Normal >=60 [facility] Comment on above: Order Comment: Kurt barraza Type: BLOOD SPECIMENOrdering Facility: [facility] Address: [address] [place] [address] Result Comment: Kim mated Glomerular Filtration Rate (eGFR) is calculated using the 2020 CKD-EPI creatinine equation. This equation utilizes serum creatinine, sex, and age as parameters. The creatinine assay has traceable calibration to isotope dilution-mass spectrometry. Refer to KDIGO guidelines for clinical interpretation. In patients with unstable renal function, e.g. those with acute kidney injury, the eGFR may not accurately reflect actual GFR. Performed By: #### 2 4323-8 ####MICHAEL LABORATORYCLIA [id number] [place] [address] [place] Glucose [Mass/Vol] 100 mg/dL High 74-99 [facility] Comment on above: Order Comment: Kurt barraza Type: BLOOD SPECIMENOrdering Facility: [facility] Address: [address] [place] [address] Result Comment: The [place] [employer] (ADA) provides guidance for cutoff values for fasting glucose and random glucose. The ADA defines fasting as no caloric intake for at least 8 hours. Fasting plasma glucose results between 100 to 125 mg/dL indicate increased risk for diabetes (prediabetes).Fasting plasma glucose results greater than or equal to 126 mg/dL meet the criteria for diagnosis of diabetes. In the absence of unequivocal hyperglycemia, results should be confirmed by repeat testing. In a patient with classic symptoms of hyperglycemia or hyperglycemic crisis, random plasma glucose results greater than or equal to 200 mg/dL meet the criteria for diagnosis of diabetes.Reference: Standards of Medical Care in Diabetes 2016, [place] [employer]. Diabetes Care. 2016.39(Suppl 1). Performed By: #### 2 4323-8 ####MICHAEL LABORATORYCLIA [id number] [place] [address] [place] Potassium [Moles/Vol] 4.7 mmol/L Normal 3.7-5.1 [facility] Comment on above: Order Comment: Kurt barraza Type: BLOOD SPECIMENOrdering Facility: [facility] Address: [address] [place] [address] Performed By: #### 2 4323-8 ####MICHAEL LABORATORYCLIA [id number] [place] [address] [place] Protein [Mass/Vol] 5.7 g/dL Low 6.3-8.0 [facility] Comment on above: Order Comment: Speci men Type: BLOOD SPECIMENOrdering Facility: [facility] Address: [address] [place] [address] Performed By: #### 2 4323-8 ####MICHAEL LABORATORYCLIA [id number] [place] [address] [place] Sodium [Moles/Vol] 143 mmol/L Normal 136-144 [facility] Comment on above: Order Comment: Speci men Type: BLOOD SPECIMENOrdering Facility: [facility] Address: [address] [place] [address] Performed By: #### 2 4323-8 ####MICHAEL LABORATORYCLIA [id number] [place] [address] [place] Urea nitrogen [Mass/Vol] 28 mg/dL High 7-21 [facility] Comment on above: Order Comment: Speci men Type: BLOOD SPECIMENOrdering Facility: [facility] Address: [address] [place] [address] Performed By: #### 2 4323-8 ####MICHAEL LABORATORYCLIA [id number] [place] [address] [place] CBC W Auto Differential pane l (Bld)on 08-31-2022 Basophils (Bld) [#/Vol] 0.03 10*3/uL <0.11 k/uL [facility] Basophils/100 WBC (Bld) 0.4 % [facility] Differential cell count method Nom (Bld) Auto [facility] Eosinophils (Bld) [#/Vol] 0.20 10*3/uL <0.46 k/uL [facility] Eosinophils/100 WBC (Bld) 3.0 % [facility] Erythrocyte distribution width (RBC) [Ratio] 14.9 % 11.5 - 15.0 % [facility] Hematocrit (Bld) [Volume fraction] 31.4 % Low 36.0 - 46.0 % [facility] Hemoglobin (Bld) [Mass/Vol] 10.1 g/dL Low 11.5 - 15.5 g/dL [facility] Immature granulocytes (Bld) [#/Vol] 0.09 10*3/uL <0.10 k/uL [facility] Immature granulocytes/100 WBC (Bld) 1.3 % [facility] Lymphocytes (Bld) [#/Vol] 1.39 10*3/uL 1.00 - 4.00 k/uL [facility] Lymphocytes/100 WBC (Bld) 20.7 % [facility] MCH (RBC) [Entitic mass] 30.1 pg 26.0 - 34.0 pg [facility] MCHC (RBC) [Mass/Vol] 32.2 g/dL 30.5 - 36.0 g/dL [facility] MCV (RBC) [Entitic vol] 93.5 fL 80.0 - 100.0 fL [facility] Monocytes (Bld) [#/Vol] 0.61 10*3/uL <0.87 k/uL [facility] Monocytes/100 WBC (Bld) 9.1 % [facility] Neutrophils (Bld) [#/Vol] 4.41 10*3/uL 1.45 - 7.50 k/uL [facility] Neutrophils/100 WBC (Bld) 65.5 % [facility] Nucleated RBC (Bld) [#/Vol] <0.01 k/uL [facility] Nucleated RBC/100 WBC (Bld) [Ratio] 0.0 /100 WBC [facility] Platelet mean volume (Bld) [Entitic vol] 11.2 fL 9.0 - 12.7 fL [facility] Platelets (Bld) [#/Vol] 166 10*3/uL 150 - 400 k/uL [facility] RBC (Bld) [#/Vol] 3.36 10*6/uL Low 3.90 - 5.20 m/uL [facility] WBC (Bld) [#/Vol] 6.73 10*3/uL 3.70 - 11.00 k/uL [facility] Basophils (Bld) [#/Vol] 0.03 10*3/uL Normal <0.11 [facility] Comment on above: Order Comment: Speci men Type: BLOOD SPECIMENOrdering Facility: [facility] Address: [address] [place] [address] Performed By: #### 5 7021-8 ####MICHAEL LABORATORYCLIA [id number] [place] [address] [place] Basophils/100 WBC (Bld) 0.4 % Normal [facility] Comment on above: Order Comment: Speci men Type: BLOOD SPECIMENOrdering Facility: [facility] Address: [address] [place] [address] Performed By: #### 5 7021-8 ####MICHAEL LABORATORYCLIA [id number] [place] [address] [place] Differential cell count method Nom (Bld) Auto Normal [facility] Comment on above: Order Comment: Speci men Type: BLOOD SPECIMENOrdering Facility: [facility] Address: [address] [place] [address] Performed By: #### 5 7021-8 ####MICHAEL LABORATORYCLIA [id number] [place] [address] [place] Eosinophils (Bld) [#/Vol] 0.20 10*3/uL Normal <0.46 [facility] Comment on above: Order Comment: Speci men Type: BLOOD SPECIMENOrdering Facility: [facility] Address: [address] [place] [address] Performed By: #### 5 7021-8 ####MICHAEL LABORATORYCLIA [id number] [place] [address] [place] Eosinophils/100 WBC (Bld) 3.0 % Normal [facility] Comment on above: Order Comment: Speci men Type: BLOOD SPECIMENOrdering Facility: [facility] Address: [address] [place] [address] Performed By: #### 5 7021-8 ####MICHAEL LABORATORYCLIA [id number] [place] [address] [place] Erythrocyte distribution width (RBC) [Ratio] 14.9 % Normal 11.5-15.0 [facility] Comment on above: Order Comment: Speci men Type: BLOOD SPECIMENOrdering Facility: [facility] Address: [address] [place] [address] Performed By: #### 5 7021-8 ####MICHAEL LABORATORYCLIA [id number] [place] [address] [place] Hematocrit (Bld) [Volume fraction] 31.4 % Low 36.0-46.0 [facility] Comment on above: Order Comment: Speci men Type: BLOOD SPECIMENOrdering Facility: [facility] Address: [address] [place] [address] Performed By: #### 5 7021-8 ####MICHAEL LABORATORYCLIA [id number] [place] [address] [place] Hemoglobin (Bld) [Mass/Vol] 10.1 g/dL Low 11.5-15.5 [facility] Comment on above: Order Comment: Speci men Type: BLOOD SPECIMENOrdering Facility: [facility] Address: [address] [place] [address] Performed By: #### 5 7021-8 ####MICHAEL LABORATORYCLIA [id number] [place] [address] [place] Immature granulocytes (Bld) [#/Vol] 0.09 10*3/uL Normal <0.10 [facility] Comment on above: Order Comment: Speci men Type: BLOOD SPECIMENOrdering Facility: [facility] Address: [address] [place] [address] Performed By: #### 5 7021-8 ####MICHAEL LABORATORYCLIA [id number] [place] [address] [place] Immature granulocytes/100 WBC (Bld) 1.3 % Normal [facility] Comment on above: Order Comment: Speci men Type: BLOOD SPECIMENOrdering Facility: [facility] Address: [address] [place] [address] Performed By: #### 5 7021-8 ####MICHAEL LABORATORYCLIA [id number] [place] [address] [place] Lymphocytes (Bld) [#/Vol] 1.39 10*3/uL Normal 1.00-4.00 [facility] Comment on above: Order Comment: Speci men Type: BLOOD SPECIMENOrdering Facility: [facility] Address: [address] [place] [address] Performed By: #### 5 7021-8 ####MICHAEL LABORATORYCLIA [id number] [place] [address] [place] Lymphocytes/100 WBC (Bld) 20.7 % Normal [facility] Comment on above: Order Comment: Speci men Type: BLOOD SPECIMENOrdering Facility: [facility] Address: [address] [place] [address] Performed By: #### 5 7021-8 ####MICHAEL LABORATORYCLIA [id number] [place] [address] [place] MCH (RBC) [Entitic mass] 30.1 pg Normal 26.0-34.0 [facility] Comment on above: Order Comment: Speci men Type: BLOOD SPECIMENOrdering Facility: [facility] Address: [address] [place] [address] Performed By: #### 5 7021-8 ####MICHAEL LABORATORYCLIA [id number] [place] [address] [place] MCHC (RBC) [Mass/Vol] 32.2 g/dL Normal 30.5-36.0 [facility] Comment on above: Order Comment: Speci men Type: BLOOD SPECIMENOrdering Facility: [facility] Address: [address] [place] [address] Performed By: #### 5 7021-8 ####MICHAEL LABORATORYCLIA [id number] [place] [address] [place] MCV (RBC) [Entitic vol] 93.5 fL Normal 80.0-100.0 [facility] Comment on above: Order Comment: Speci men Type: BLOOD SPECIMENOrdering Facility: [facility] Address: [address] [place] [address] Performed By: #### 5 7021-8 ####MICHAEL LABORATORYCLIA [id number] [place] [address] [place] Monocytes (Bld) [#/Vol] 0.61 10*3/uL Normal <0.87 [facility] Comment on above: Order Comment: Speci men Type: BLOOD SPECIMENOrdering Facility: [facility] Address: [address] [place] [address] Performed By: #### 5 7021-8 ####MICHAEL LABORATORYCLIA [id number] [place] [address] [place] Monocytes/100 WBC (Bld) 9.1 % Normal [facility] Comment on above: Order Comment: Speci men Type: BLOOD SPECIMENOrdering Facility: [facility] Address: [address] [place] [address] Performed By: #### 5 7021-8 ####MICHAEL LABORATORYCLIA [id number] [place] [address] [place] Neutrophils (Bld) [#/Vol] 4.41 10*3/uL Normal 1.45-7.50 [facility] Comment on above: Order Comment: Speci men Type: BLOOD SPECIMENOrdering Facility: [facility] Address: [address] [place] [address] Performed By: #### 5 7021-8 ####MICHAEL LABORATORYCLIA [id number] [place] [address] [place] Neutrophils/100 WBC (Bld) 65.5 % Normal [facility] Comment on above: Order Comment: Speci men Type: BLOOD SPECIMENOrdering Facility: [facility] Address: [address] [place] [address] Performed By: #### 5 7021-8 ####MICHAEL LABORATORYCLIA [id number] [place] [address] [place] Nucleated RBC (Bld) [#/Vol] 10*3/uL Normal <0.01 [facility] Comment on above: Order Comment: Speci men Type: BLOOD SPECIMENOrdering Facility: [facility] Address: [address] [place] [address] Performed By: #### 5 7021-8 ####MICHAEL LABORATORYCLIA [id number] [place] [address] [place] Nucleated RBC/100 WBC (Bld) [Ratio] 0.0 /100 WBC Normal [facility] Comment on above: Order Comment: Speci men Type: BLOOD SPECIMENOrdering Facility: [facility] Address: [address] [place] [address] Performed By: #### 5 7021-8 ####MICHAEL LABORATORYCLIA [id number] [place] [address] [place] Platelet mean volume (Bld) [Entitic vol] 11.2 fL Normal 9.0-12.7 [facility] Comment on above: Order Comment: Speci men Type: BLOOD SPECIMENOrdering Facility: [facility] Address: [address] [place] [address] Performed By: #### 5 7021-8 ####MICHAEL LABORATORYCLIA [id number] [place] [address] [place] Platelets (Bld) [#/Vol] 166 10*3/uL Normal 150-400 [facility] Comment on above: Order Comment: Speci men Type: BLOOD SPECIMENOrdering Facility: [facility] Address: [address] [place] [address] Performed By: #### 5 7021-8 ####MICHAEL LABORATORYCLIA [id number] [place] [address] [place] RBC (Bld) [#/Vol] 3.36 10*6/uL Low 3.90-5.20 [facility] Comment on above: Order Comment: Speci men Type: BLOOD SPECIMENOrdering Facility: [facility] Address: [address] [place] [address] Performed By: #### 5 7021-8 ####MICHAEL LABORATORYCLIA [id number] [place] [address] [place] WBC (Bld) [#/Vol] 6.73 10*3/uL Normal 3.70-11.00 [facility] Comment on above: Order Comment: Speci men Type: BLOOD SPECIMENOrdering Facility: [facility] Address: [address] [place] [address] Performed By: #### 5 7021-8 ####[place] LABORATORYCLIA [id number] [place] [address] [place] [facility] Comprehensive metabolic 2000 panelon 08-31-2022 Albumin [Mass/Vol] 3.9 g/dL 3.9 - 4.9 g/dL [facility] ALP [Catalytic activity/Vol] 47 U/L 34 - 123 U/L [facility] ALT [Catalytic activity/Vol] 23 U/L 7 - 38 U/L [facility] Anion gap [Moles/Vol] 11 mmol/L 9 - 18 mmol/L [facility] AST [Catalytic activity/Vol] 13 U/L 13 - 35 U/L [facility] Bilirubin [Mass/Vol] 0.4 mg/dL 0.2 - 1 .3 mg/dL [facility] Calcium [Mass/Vol] 8.9 mg/dL 8.5 - 10. 2 mg/dL [facility] Chloride [Moles/Vol] 101 mmol/L 97 - 10 5 mmol/L [facility] CO2 [Moles/Vol] 27 mmol/L 22 - 30 mmol/L [facility] Creatinine [Mass/Vol] 0.62 mg/dL 0.58 - 0.96 mg/dL [facility] Estimated Glomerular Filtration Rate 91 mL/min/1.73m >=60 mL/min/1.7 3m [facility] Glucose [Mass/Vol] 84 mg/dL 74 - 99 mg/dL [facility] Potassium [Moles/Vol] 3.6 mmol/L Low 3.7 - 5.1 mmol/L [facility] Protein [Mass/Vol] 5.9 g/dL Low 6.3 - 8.0 g/dL [facility] Sodium [Moles/Vol] 139 mmol/L 136 - 144 mmol/L [facility] Urea nitrogen [Mass/Vol] 26 mg/dL High 7 - 21 mg/dL [facility] Albumin [Mass/Vol] 3.9 g/dL Normal 3.9-4.9 [facility] Comment on above: Order Comment: Speci men Type: BLOOD SPECIMENOrdering Facility: [facility] Address: [address] [place] [address] Performed By: #### 2 4323-8 ####MICHAEL LABORATORYCLIA [id number] [place] [address] [place] ALP [Catalytic activity/Vol] 47 U/L Normal 34-123 [facility] Comment on above: Order Comment: Speci men Type: BLOOD SPECIMENOrdering Facility: [facility] Address: [address] [place] [address] Performed By: #### 2 432-8 ####MICHAEL LABORATORYCLIA [id number] [place] [address] [place] ALT [Catalytic activity/Vol] 23 U/L Normal 7-38 [facility] Comment on above: Order Comment: Speci men Type: BLOOD SPECIMENOrdering Facility: [facility] Address: [address] [place] [address] Performed By: #### 2 4323-8 ####MICHAEL LABORATORYCLIA [id number] [place] [address] [place] Anion gap [Moles/Vol] 11 mmol/L Normal 9-18 [facility] Comment on above: Order Comment: Speci men Type: BLOOD SPECIMENOrdering Facility: [facility] Address: [address] [place] [address] Performed By: #### 2 4323-8 ####MICHAEL LABORATORYCLIA [id number] [place] [address] [place] AST [Catalytic activity/Vol] 13 U/L Normal 13-35 [facility] Comment on above: Order Comment: Speci men Type: BLOOD SPECIMENOrdering Facility: [facility] Address: [address] [place] [address] Performed By: #### 2 4323-8 ####MICHAEL LABORATORYCLIA [id number] [place] [address] [place] Bilirubin [Mass/Vol] 0.4 mg/dL Normal 0.2-1.3 [facility] Comment on above: Order Comment: Speci men Type: BLOOD SPECIMENOrdering Facility: [facility] Address: [address] [place] [address] Performed By: #### 2 4323-8 ####MICHAEL LABORATORYCLIA [id number] [place] [address] [place] Calcium [Mass/Vol] 8.9 mg/dL Normal 8.5-10.2 [facility] Comment on above: Order Comment: Speci men Type: BLOOD SPECIMENOrdering Facility: [facility] Address: [address] [place] [address] Performed By: #### 2 4323-8 ####MICHAEL LABORATORYCLIA [id number] [place] [address] [place] Chloride [Moles/Vol] 101 mmol/L Normal 97-105 [facility] Comment on above: Order Comment: Speci men Type: BLOOD SPECIMENOrdering Facility: [facility] Address: [address] [place] [address] Performed By: #### 2 4323-8 ####MICHAEL LABORATORYCLIA [id number] [place] [address] [place] CO2 [Moles/Vol] 27 mmol/L Normal 22-30 [facility] Comment on above: Order Comment: Speci men Type: BLOOD SPECIMENOrdering Facility: [facility] Address: [address] [place] [address] Performed By: #### 2 4323-8 ####MICHAEL LABORATORYCLIA [id number] [place] [address] [place] Creatinine [Mass/Vol] 0.62 mg/dL Normal 0.58-0.96 [facility] Comment on above: Order Comment: Speci men Type: BLOOD SPECIMENOrdering Facility: [facility] Address: [address] [place] [address] Performed By: #### 2 4323-8 ####MICHAEL LABORATORYCLIA [id number] [place] [address] [place] ESTIMATED GLOMERULAR FILTRATION RATE 91 mL/min/1.73m??? Normal >=60 [facility] Comment on above: Order Comment: Kurt barraza Type: BLOOD SPECIMENOrdering Facility: [facility] Address: [address] [place] [address] Result Comment: Kim mated Glomerular Filtration Rate (eGFR) is calculated using the 2020 CKD-EPI creatinine equation. This equation utilizes serum creatinine, sex, and age as parameters. The creatinine assay has traceable calibration to isotope dilution-mass spectrometry. Refer to KDIGO guidelines for clinical interpretation. In patients with unstable renal function, e.g. those with acute kidney injury, the eGFR may not accurately reflect actual GFR. Performed By: #### 2 4323-8 ####MICHAEL LABORATORYCLIA [id number] [place] [address] [place] Glucose [Mass/Vol] 84 mg/dL Normal 74-99 [facility] Comment on above: Order Comment: Kurt barraza Type: BLOOD SPECIMENOrdering Facility: [facility] Address: [address] [place] [address] Result Comment: The [place] Diabetes Association (ADA) provides guidance for cutoff values for fasting glucose and random glucose. The ADA defines fasting as no caloric intake for at least 8 hours. Fasting plasma glucose results between 100 to 125 mg/dL indicate increased risk for diabetes (prediabetes).Fasting plasma glucose results greater than or equal to 126 mg/dL meet the criteria for diagnosis of diabetes. In the absence of unequivocal hyperglycemia, results should be confirmed by repeat testing. In a patient with classic symptoms of hyperglycemia or hyperglycemic crisis, random plasma glucose results greater than or equal to 200 mg/dL meet the criteria for diagnosis of diabetes.Reference: Standards of Medical Care in Diabetes 2016, [place] [employer] Association. Diabetes Care. 2016.39(Suppl 1). Performed By: #### 2 4323-8 ####MICHAEL LABORATORYCLIA [id number] [place] [address] [place] Potassium [Moles/Vol] 3.6 mmol/L Low 3.7-5.1 [facility] Comment on above: Order Comment: Speci men Type: BLOOD SPECIMENOrdering Facility: [facility] Address: [address] [place] [address] Performed By: #### 2 4323-8 ####MICHAEL LABORATORYCLIA [id number] [place] [address] [place] Protein [Mass/Vol] 5.9 g/dL Low 6.3-8.0 [facility] Comment on above: Order Comment: Speci men Type: BLOOD SPECIMENOrdering Facility: [facility] Address: [address] [place] [address] Performed By: #### 2 4323-8 ####MICHAEL LABORATORYCLIA [id number] [place] [address] [place] Sodium [Moles/Vol] 139 mmol/L Normal 136-144 [facility] Comment on above: Order Comment: Speci men Type: BLOOD SPECIMENOrdering Facility: [facility] Address: [address] [place] [address] Performed By: #### 2 4323-8 ####MICHAEL LABORATORYCLIA [id number] [place] [address] [place] Urea nitrogen [Mass/Vol] 26 mg/dL High 7-21 [facility] Comment on above: Order Comment: Speci men Type: BLOOD SPECIMENOrdering Facility: [facility] Address: [address] [place] [address] Performed By: #### 2 4323-8 ####MICHAEL LABORATORYCLIA [id number] [place] [address] [place] MAGNESIUM BLDon 08-31-2022 Magnesium [Mass/Vol] 2.2 mg/dL 1.7 - 2 .3 mg/dL [facility] Magnesium SerPl-mCncon 08-31 Magnesium [Mass/Vol] 2.2 mg/dL Normal 1.7-2.3 [facility] Comment on above: Order Comment: Speci men Type: BLOOD SPECIMENOrdering Facility: [facility] Address: [address] [place] [address] Performed By: #### 1 9123-9 ####[facility] LABORATORYCLIA [id number] [place] [address] [place] CASE MANAGEMon 08-28-2022 CASE MANAGEM Normal [facility] CASE MANAGEM Normal [facility] CBC panel Auto (Bld)on 08-28 Erythrocyte distribution width (RBC) [Ratio] 14.2 % Normal 11.5-15.0 [facility] Comment on above: Order Comment: Speci men Type: BLOOD SPECIMENOrdering Facility: [facility] Address: [address] [place] [address] Performed By: #### 5 8410-2 ####[facility] LABCLIA [id number] [place] [address] [place] Hematocrit (Bld) [Volume fraction] 30.3 % Low 36.0-46.0 [facility] Comment on above: Order Comment: Speci men Type: BLOOD SPECIMENOrdering Facility: [facility] Address: [address] [place] [address] Performed By: #### 5 8410-2 ####[facility] LABCLIA [id number] [place] [address] [place] Hemoglobin (Bld) [Mass/Vol] 10.1 g/dL Low 11.5-15.5 [facility] Comment on above: Order Comment: Speci men Type: BLOOD SPECIMENOrdering Facility: [facility] Address: [address] Performed By: #### 5 8410-2 ####[facility] LABCLIA [id number] [place] [address] [place] MCH (RBC) [Entitic mass] 30.2 pg Normal 26.0-34.0 [facility] Comment on above: Order Comment: Speci men Type: BLOOD SPECIMENOrdering Facility: [facility] Address: [address] [place], [place] [address] Performed By: #### 5 8410-2 ####[facility] LABIA [id number] [place] [address] [place] MCHC (RBC) [Mass/Vol] 33.3 g/dL Normal 30.5-36.0 [facility] Comment on above: Order Comment: Speci men Type: BLOOD SPECIMENOrdering Facility: [facility] Address: [address] [place] [address] Performed By: #### 5 8410-2 ####[facility] LABIA [id number] [address] [place] MCV (RBC) [Entitic vol] 90.7 fL Normal 80.0-100.0 [facility] Comment on above: Order Comment: Speci men Type: BLOOD SPECIMENOrdering Facility: [facility] Address: [address] [place] [address] Performed By: #### 5 8410-2 ####[facility] [id number] [place] [address] [place] Nucleated RBC (Bld) [#/Vol] 10*3/uL Normal <0.01 [facility] Comment on above: Order Comment: Speci men Type: BLOOD SPECIMENOrdering Facility: [facility] Address: [address] [place], [place] [address] Performed By: #### 5 8410-2 ####[facility] LABIA [id number] [place] [address] [place] Platelet mean volume (Bld) [Entitic vol] 10.5 fL Normal 9.0-12.7 [facility] Comment on above: Order Comment: Speci men Type: BLOOD SPECIMENOrdering Facility: [facility] Address: [address] [place], [place] [address] Performed By: #### 5 8410-2 ####[facility] LABIA [id number] [place] [address] [place] [facility] [place] Platelets (Bld) [#/Vol] 162 10*3/uL Normal 150-400 [facility] Comment on above: Order Comment: Speci men Type: BLOOD SPECIMENOrdering Facility: [facility] Address: [address] [place], [place] [address] Performed By: #### 5 8410-2 ####[facility] LABCLIA [id number] [place] [address] [place] RBC (Bld) [#/Vol] 3.34 10*6/uL Low 3.90-5.20 [facility] Comment on above: Order Comment: Speci men Type: BLOOD SPECIMENOrdering Facility: [facility] Address: [address] [place], [place] [address] Performed By: #### 5 8410-2 ####[facility] LABCLIA [id number] [place] [address] [place] WBC (Bld) [#/Vol] 9.86 10*3/uL Normal 3.70-11.00 [facility] Comment on above: Order Comment: Speci men Type: BLOOD SPECIMENOrdering Facility: [facility] Address: [address] [place], [place] [address] Performed By: #### 5 8410-2 ####[facility] LABCLIA [id number] [place] [address] [place] CNDSon 08-28-2022 CNDS Normal [facility] CBC panel Auto (Bld)on 08-27 Erythrocyte distribution width (RBC) [Ratio] 13.8 % Normal 11.5-15.0 [facility] Comment on above: Order Comment: Speci men Type: BLOOD SPECIMENOrdering Facility: [facility] Address: [address] [place], [place] [address] Performed By: #### 5 8410-2 ####[facility] LABCLIA [id number] [place] [address] [place] Hematocrit (Bld) [Volume fraction] 30.5 % Low 36.0-46.0 [facility] Comment on above: Order Comment: Speci men Type: BLOOD SPECIMENOrdering Facility: [facility] Address: [address] [place] [address] Performed By: #### 5 8410-2 ####[facility] LABCLIA [id number] [address] STATES OF [facility] Hemoglobin (Bld) [Mass/Vol] 10.1 g/dL Low 11.5-15.5 [facility] Comment on above: Order Comment: Speci men Type: BLOOD SPECIMENOrdering Facility: [facility] Address: [address] [place] [address] Performed By: #### 5 8410-2 ####[facility] LABCLIA [id number] [address] [place] MCH (RBC) [Entitic mass] 29.9 pg Normal 26.0-34.0 [facility] Comment on above: Order Comment: Speci men Type: BLOOD SPECIMENOrdering Facility: [facility] Address: [address] [place] [address] Performed By: #### 5 8410-2 ####[facility] LABIA [id number] [address] [place] MCHC (RBC) [Mass/Vol] 33.1 g/dL Normal 30.5-36.0 [facility] Comment on above: Order Comment: Speci men Type: BLOOD SPECIMENOrdering Facility: [facility] Address: [address] [place] [address] Performed By: #### 5 8410-2 ####[facility] LABIA [id number] [address] [place] MCV (RBC) [Entitic vol] 90.2 fL Normal 80.0-100.0 [facility] Comment on above: Order Comment: Speci men Type: BLOOD SPECIMENOrdering Facility: [facility] Address: [address] [place] [address] Performed By: #### 5 8410-2 ####[facility] LABIA [id number] [place] [address] [place] Nucleated RBC (Bld) [#/Vol] 10*3/uL Normal <0.01 [facility] Comment on above: Order Comment: Speci men Type: BLOOD SPECIMENOrdering Facility: [facility] Address: [address] Performed By: #### 5 8410-2 ####[facility] LABIA [id number] [place] [address] [place] Platelet mean volume (Bld) [Entitic vol] 10.3 fL Normal 9.0-12.7 [facility] Comment on above: Order Comment: Speci men Type: BLOOD SPECIMENOrdering Facility: [facility] Address: [address] Performed By: #### 5 8410-2 ####[facility] LABIA [id number] [place] [address] [place] Platelets (Bld) [#/Vol] 159 10*3/uL Normal 150-400 [facility] Comment on above: Order Comment: Speci men Type: BLOOD SPECIMENOrdering Facility: [facility] Address: [address] [place] [address] Performed By: #### 5 8410-2 ####[facility] LABIA [id number] [place] [address] [place] RBC (Bld) [#/Vol] 3.38 10*6/uL Low 3.90-5.20 [facility] Comment on above: Order Comment: Speci men Type: BLOOD SPECIMENOrdering Facility: [facility] Address: [address] [place] [address] Performed By: #### 5 8410-2 ####[facility] LABCLIA [id number] [place] [address] [place] WBC (Bld) [#/Vol] 10.40 10*3/uL Normal 3.70-11.00 [facility] Comment on above: Order Comment: Speci men Type: BLOOD SPECIMENOrdering Facility: [facility] Address: [address] [place] [address] Performed By: #### 5 8410-2 ####[facility] LABCLIA [id number] [place] [address] [place] CBC panel Auto (Bld)on 08-26 Erythrocyte distribution width (RBC) [Ratio] 13.7 % Normal 11.5-15.0 [facility] Comment on above: Order Comment: Speci men Type: BLOOD SPECIMENOrdering Facility: [facility] Address: [address] [place] [address] Performed By: #### 5 8410-2 ####[facility] LABIA [id number] [place] [address] [place] Hematocrit (Bld) [Volume fraction] 33.2 % Low 36.0-46.0 [facility] Comment on above: Order Comment: Speci men Type: BLOOD SPECIMENOrdering Facility: [facility] Address: [address] [place], [place] [address] Performed By: #### 5 8410-2 ####[facility] LABCLIA [id number] [place] [address] [place] Hemoglobin (Bld) [Mass/Vol] 10.8 g/dL Low 11.5-15.5 [facility] Comment on above: Order Comment: Speci men Type: BLOOD SPECIMENOrdering Facility: [facility] Address: [address] [place] [address] Performed By: #### 5 8410-2 ####[facility] LABCLIA [id number] [address] MCH (RBC) [Entitic mass] 29.3 pg Normal 26.0-34.0 [facility] Comment on above: Order Comment: Speci men Type: BLOOD SPECIMENOrdering Facility: [facility] Address: [address] [place] [address] Performed By: #### 5 8410-2 ####[facility] LABCLIA [id number] [address] MCHC (RBC) [Mass/Vol] 32.5 g/dL Normal 30.5-36.0 [facility] Comment on above: Order Comment: Speci men Type: BLOOD SPECIMENOrdering Facility: [facility] Address: [address] [place] [address] Performed By: #### 5 8410-2 ####[facility] LABCLIA [id number] [address] OF [facility] MCV (RBC) [Entitic vol] 90.2 fL Normal 80.0-100.0 [facility] Comment on above: Order Comment: Speci men Type: BLOOD SPECIMENOrdering Facility: [facility] Address: [address] [place] [address] Performed By: #### 5 8410-2 ####[facility] LABCLIA [id number] [address] [place] Nucleated RBC (Bld) [#/Vol] 10*3/uL Normal <0.01 [facility] Comment on above: Order Comment: Speci men Type: BLOOD SPECIMENOrdering Facility: [facility] Address: [address] [place] [address] Performed By: #### 5 8410-2 ####[facility] LABCLIA [id number] [address] [place] Platelet mean volume (Bld) [Entitic vol] 11.0 fL Normal 9.0-12.7 [facility] Comment on above: Order Comment: Speci men Type: BLOOD SPECIMENOrdering Facility: [facility] Address: [address] [place] [address] Performed By: #### 5 8410-2 ####[facility] LABCLIA [id number] [place] [address] [place] Platelets (Bld) [#/Vol] 204 10*3/uL Normal 150-400 [facility] Comment on above: Order Comment: Speci men Type: BLOOD SPECIMENOrdering Facility: [facility] Address: [address] [place] [address] Performed By: #### 5 8410-2 ####[facility] LABIA [id number] [place] [address] [place] RBC (Bld) [#/Vol] 3.68 10*6/uL Low 3.90-5.20 [facility] Comment on above: Order Comment: Speci men Type: BLOOD SPECIMENOrdering Facility: [facility] Address: [address] [place] [address] Performed By: #### 5 8410-2 ####[facility] LABIA [id number] [place] [address] [place] WBC (Bld) [#/Vol] 11.95 10*3/uL High 3.70-11.00 [facility] Comment on above: Order Comment: Speci men Type: BLOOD SPECIMENOrdering Facility: [facility] Address: [address] [place] [address] Performed By: #### 5 8410-2 ####[facility] LABIA [id number] [place] [address] [place] CT BRAIN WO IVCONon 08-26-19 CT BRAIN WO IVCON Normal [facility] PTT, ANTICOAGULANT THERAPYon 08-26-2022 aPTT Coag (PPP) [Time] 21.8 s Low 23.0-32.4 [facility] Comment on above: Order Comment: Speci men Type: BLOOD SPECIMENOrdering Facility: [facility] Address: [address] [place] [address] Performed By: #### P TTAC ####[facility] LABCLIA [id number] [place] [address] [place] CASE MANAGEMon 08-25-2022 CASE MANAGEM Normal [facility] CBC panel Auto (Bld)on 08-25 Erythrocyte distribution width (RBC) [Ratio] 13.6 % Normal 11.5-15.0 [facility] Comment on above: Order Comment: Speci men Type: BLOOD SPECIMENOrdering Facility: [facility] Address: [address] [place] [address] Performed By: #### 5 8410-2 ####[facility] LABCLIA [id number] [address] [place] Hematocrit (Bld) [Volume fraction] 29.9 % Low 36.0-46.0 [facility] Comment on above: Order Comment: Speci men Type: BLOOD SPECIMENOrdering Facility: [facility] Address: [address] [place] [address] Performed By: #### 5 8410-2 ####[facility] LABCLIA [id number] [place] [address] [place] Hemoglobin (Bld) [Mass/Vol] 9.9 g/dL Low 11.5-15.5 [facility] Comment on above: Order Comment: Speci men Type: BLOOD SPECIMENOrdering Facility: [facility] Address: [address] [place] [address] Performed By: #### 5 8410-2 ####[facility] LABCLIA [id number] [place] [address] [place] MCH (RBC) [Entitic mass] 29.6 pg Normal 26.0-34.0 [facility] Comment on above: Order Comment: Speci men Type: BLOOD SPECIMENOrdering Facility: [facility] Address: [address] Performed By: #### 5 8410-2 ####[facility] LABIA [id number] [address] [place] MCHC (RBC) [Mass/Vol] 33.1 g/dL Normal 30.5-36.0 [facility] Comment on above: Order Comment: Speci men Type: BLOOD SPECIMENOrdering Facility: [facility] Address: [address] Performed By: #### 5 8410-2 ####[facility] LABIA [id number] [address] [place] MCV (RBC) [Entitic vol] 89.3 fL Normal 80.0-100.0 [facility] Comment on above: Order Comment: Speci men Type: BLOOD SPECIMENOrdering Facility: [facility] Address: [address] Performed By: #### 5 8410-2 ####[facility] LABIA [id number] [place] [address] [place] Nucleated RBC (Bld) [#/Vol] 10*3/uL Normal <0.01 [facility] Comment on above: Order Comment: Speci men Type: BLOOD SPECIMENOrdering Facility: [facility] Address: [address] Performed By: #### 5 8410-2 ####[facility] LABIA [id number] [address] [place] Platelet mean volume (Bld) [Entitic vol] 10.8 fL Normal 9.0-12.7 [facility] Comment on above: Order Comment: Speci men Type: BLOOD SPECIMENOrdering Facility: [facility] Address: [address] Performed By: #### 5 8410-2 ####[facility] LABIA [id number] [place] [address] [place] Platelets (Bld) [#/Vol] 208 10*3/uL Normal 150-400 [facility] Comment on above: Order Comment: Speci men Type: BLOOD SPECIMENOrdering Facility: [facility] Address: [address] [place], [place] [address] Performed By: #### 5 8410-2 ####[facility] [id number] [place] [address] [place] RBC (Bld) [#/Vol] 3.35 10*6/uL Low 3.90-5.20 [facility] Comment on above: Order Comment: Speci men Type: BLOOD SPECIMENOrdering Facility: [facility] Address: [address] [place], [place] [address] Performed By: #### 5 8410-2 ####[facility] [id number] [place] [address] [place] WBC (Bld) [#/Vol] 11.25 10*3/uL High 3.70-11.00 [facility] Comment on above: Order Comment: Speci men Type: BLOOD SPECIMENOrdering Facility: [facility] Address: [address] [place], [place] [address] Performed By: #### 5 8410-2 ####[facility] [id number] [place] [address] [place] CNNURSEon 08-25-2022 CNNURSE Normal [facility] CONSULT PROGon 08-25-2022 CONSULT PROG Normal [facility] CT BRAIN WO IVCONon 08-25-[address] BRAIN WO IVCON Normal [facility] NUTRITIONon 08-25-2022 NUTRITION Normal [facility] PTT, ANTICOAGULANT THERAPYon 08-25-2022 aPTT Coag (PPP) [Time] 62.4 s High 23.0-32.4 [facility] Comment on above: Order Comment: Speci men Type: BLOOD SPECIMENOrdering Facility: [facility] Address: [address] [place] [address] Performed By: #### P TTAC ####[facility] LABCLIA [id number] [address] OF [facility] aPTT Coag (PPP) [Time] s High 23.0-32.4 [facility] Comment on above: Order Comment: Speci men Type: BLOOD SPECIMENOrdering Facility: [facility] Address: [address] [place] [address] Result Comment: Resu lt rechecked.Sample checked for clot. Performed By: #### P TTAC ####[facility] LABCLIA [id number] [address] [place] THERAPY NTon 08-25-2022 THERAPY NT Normal [facility] THERAPY NT Normal [facility] aPTT PPPon 08-25-2022 aPTT Coag (PPP) [Time] 58.3 s High 23.0-32.4 [facility] Comment on above: Order Comment: Speci men Type: BLOOD SPECIMENOrdering Facility: [facility] Address: [address] [place] [address] Performed By: #### 1 4979-9 ####[facility] LABCLIA [id number] [address] [place] aPTT Coag (PPP) [Time] 119.9 s High 23.0-32.4 [facility] Comment on above: Order Comment: Speci men Type: BLOOD SPECIMENOrdering Facility: [facility] Address: [address] [place] [address] Result Comment: Resu lt rechecked.Sample checked for clot. Performed By: #### 1 4979-9 ####[facility] LABCLIA [id number] [address] [place] CBC panel Auto (Bld)on 08-24 Erythrocyte distribution width (RBC) [Ratio] 13.5 % Normal 11.5-15.0 [facility] Comment on above: Order Comment: Speci men Type: BLOOD SPECIMENOrdering Facility: [facility] Address: [address] [place] [address] Performed By: #### 5 8410-2 ####[facility] LABIA [id number] [address] [place] Hematocrit (Bld) [Volume fraction] 30.1 % Low 36.0-46.0 [facility] Comment on above: Order Comment: Speci men Type: BLOOD SPECIMENOrdering Facility: [facility] Address: [address] [place] [address] Performed By: #### 5 8410-2 ####[facility] LABIA [id number] [address] [place] Hemoglobin (Bld) [Mass/Vol] 9.9 g/dL Low 11.5-15.5 [facility] Comment on above: Order Comment: Speci men Type: BLOOD SPECIMENOrdering Facility: [facility]NE [facility] Address: [address] [place], [place] [address] Performed By: #### 5 8410-2 ####[facility] LABIA [id number] [place] [address] [place] MCH (RBC) [Entitic mass] 29.5 pg Normal 26.0-34.0 [facility] Comment on above: Order Comment: Speci men Type: BLOOD SPECIMENOrdering Facility: [facility] Address: [address] [place], [place] [address] Performed By: #### 5 8410-2 ####[facility] LABIA [id number] [address] [place] MCHC (RBC) [Mass/Vol] 32.9 g/dL Normal 30.5-36.0 [facility] Comment on above: Order Comment: Speci men Type: BLOOD SPECIMENOrdering Facility: [facility] Address: [address] [place], [place] [address] Performed By: #### 5 8410-2 ####[facility] LABIA [id number] [address] [place] MCV (RBC) [Entitic vol] 89.6 fL Normal 80.0-100.0 [facility] Comment on above: Order Comment: Speci men Type: BLOOD SPECIMENOrdering Facility: [facility] Address: [address] [place], [place] [address] Performed By: #### 5 8410-2 ####[facility] LABIA [id number] [place] [address] [place] Nucleated RBC (Bld) [#/Vol] 10*3/uL Normal <0.01 [facility] Comment on above: Order Comment: Speci men Type: BLOOD SPECIMENOrdering Facility: [facility] Address: [address] [place], [place] [address] Performed By: #### 5 8410-2 ####[facility] LABIA [id number] [place] [address] [place] Platelet mean volume (Bld) [Entitic vol] 11.0 fL Normal 9.0-12.7 [facility] Comment on above: Order Comment: Speci men Type: BLOOD SPECIMENOrdering Facility: [facility] Address: [address] [place], [place] [address] Performed By: #### 5 8410-2 ####[facility] LABIA [id number] [place] [address] [place] Platelets (Bld) [#/Vol] 201 10*3/uL Normal 150-400 [facility] Comment on above: Order Comment: Speci men Type: BLOOD SPECIMENOrdering Facility: [facility] Address: [address] [place] [address] Performed By: #### 5 8410-2 ####[facility] LABIA [id number] [place] [address] [place] RBC (Bld) [#/Vol] 3.36 10*6/uL Low 3.90-5.20 [facility] Comment on above: Order Comment: Speci men Type: BLOOD SPECIMENOrdering Facility: [facility] Address: [address] Performed By: #### 5 8410-2 ####[facility] LABIA [id number] [place] [address] [place] WBC (Bld) [#/Vol] 11.63 10*3/uL High 3.70-11.00 [facility] Comment on above: Order Comment: Speci men Type: BLOOD SPECIMENOrdering Facility: [facility] Address: [address] Performed By: #### 5 8410-2 ####[facility] LABIA [id number] [place] [address] [place] CONSULT PROGon 08-24-2022 CONSULT PROG Normal [facility] THERAPY NTon 08-24-2022 THERAPY NT Normal [facility] THERAPY NT Normal [facility] CBC panel Auto (Bld)on 08-23 Erythrocyte distribution width (RBC) [Ratio] 13.4 % Normal 11.5-15.0 [facility] Comment on above: Order Comment: Speci men Type: BLOOD SPECIMENOrdering Facility: [facility] Address: [address] [place] [address] Performed By: #### 5 8410-2 ####[facility] LABCLIA [id number] [place] [address] [place] Hematocrit (Bld) [Volume fraction] 36.5 % Normal 36.0-46.0 [facility] Comment on above: Order Comment: Speci men Type: BLOOD SPECIMENOrdering Facility: [facility] Address: [address] [place] [address] Performed By: #### 5 8410-2 ####[facility] LABCLIA [id number] [place] [address] [place] Hemoglobin (Bld) [Mass/Vol] 12.1 g/dL Normal 11.5-15.5 [facility] Comment on above: Order Comment: Speci men Type: BLOOD SPECIMENOrdering Facility: [facility] Address: [address] [place] [address] Performed By: #### 5 8410-2 ####[facility] LABCLIA [id number] [address] [place] MCH (RBC) [Entitic mass] 29.5 pg Normal 26.0-34.0 [facility] Comment on above: Order Comment: Speci men Type: BLOOD SPECIMENOrdering Facility: [facility] Address: [address] [place], [place] [address] Performed By: #### 5 8410-2 ####[facility] LABIA [id number] [address] [place] MCHC (RBC) [Mass/Vol] 33.2 g/dL Normal 30.5-36.0 [facility] Comment on above: Order Comment: Speci men Type: BLOOD SPECIMENOrdering Facility: [facility] Address: [address] Performed By: #### 5 8410-2 ####[facility] LABIA [id number] [place] [address] [place] MCV (RBC) [Entitic vol] 89.0 fL Normal 80.0-100.0 C [facility] Comment on above: Order Comment: Speci men Type: BLOOD SPECIMENOrdering Facility: [facility] Address: [address] [place], [place] [address] Performed By: #### 5 8410-2 ####[facility] LABCLIA [id number] [place] [address] [place] Nucleated RBC (Bld) [#/Vol] 10*3/uL Normal <0.01 [facility] Comment on above: Order Comment: Speci men Type: BLOOD SPECIMENOrdering Facility: [facility] Address: [address] Performed By: #### 5 8410-2 ####[facility] LABIA [id number] [place] [address] [place] Platelet mean volume (Bld) [Entitic vol] 11.1 fL Normal 9.0-12.7 [facility] Comment on above: Order Comment: Speci men Type: BLOOD SPECIMENOrdering Facility: [facility] Address: [address] Performed By: #### 5 8410-2 ####[facility] LABIA [id number] [place] [address] [place] Platelets (Bld) [#/Vol] 208 10*3/uL Normal 150-400 [facility] Comment on above: Order Comment: Speci men Type: BLOOD SPECIMENOrdering Facility: [facility] Address: [address] [place] [address] Performed By: #### 5 8410-2 ####[facility] LABCLIA [id number] [place] [address] [place] RBC (Bld) [#/Vol] 4.10 10*6/uL Normal 3.90-5.20 [facility] Comment on above: Order Comment: Speci men Type: BLOOD SPECIMENOrdering Facility: [facility] Address: [address] Performed By: #### 5 8410-2 ####[facility] LABCLIA [id number] [place] [address] [place] WBC (Bld) [#/Vol] 17.12 10*3/uL High 3.70-11.00 [facility] Comment on above: Order Comment: Speci men Type: BLOOD SPECIMENOrdering Facility: [facility] Address: [address] [place] [address] Performed By: #### 5 8410-2 ####[facility] LABCLIA [id number] [place] [address] [place] PT EDon 08-23-2022 PT ED Normal [facility] THERAPY NTon 08-23-2022 THERAPY NT Normal [facility] NT Normal [facility] CASE MANAGEMon 08-22-2022 CASE MANAGEM Normal [facility] CONSULTon 08-22-2022 CONSULT Normal [facility] CONSULT Normal [facility] THERAPY NTon 08-22-2022 THERAPY NT Normal [facility] NT Normal [facility] Basic metabolic 2000 panelon 08-21-2022 Anion gap [Moles/Vol] 11 mmol/L Normal 9-18 [facility] Comment on above: Order Comment: Speci men Type: BLOOD SPECIMENOrdering Facility: [facility] Address: [address] [place] [address] Performed By: #### 2 4321-2 ####[facility] LABCLIA [id number] [place] [address] [place] Calcium [Mass/Vol] 8.8 mg/dL Normal 8.5-10.2 [facility] Comment on above: Order Comment: Speci men Type: BLOOD SPECIMENOrdering Facility: [facility] Address: [address] [place] [address] Performed By: #### 2 4321-2 ####[facility] LABCLIA [id number] [place] [id number] [place] Chloride [Moles/Vol] 102 mmol/L Normal 97-105 [facility] Comment on above: Order Comment: Speci men Type: BLOOD SPECIMENOrdering Facility: [facility] Address: [address] [place] [address] Performed By: #### 2 4321-2 ####[facility] LABCLIA [id number] [place] [address] [place] CO2 [Moles/Vol] 24 mmol/L Normal 22-30 [facility] Comment on above: Order Comment: Speci men Type: BLOOD SPECIMENOrdering Facility: [facility] Address: [address] [place] [address] Performed By: #### 2 4321-2 ####[facility] LABIA [id number] [address] OF [facility] Creatinine [Mass/Vol] 0.95 mg/dL Normal 0.58-0.96 [facility] Comment on above: Order Comment: Speci men Type: BLOOD SPECIMENOrdering Facility: [facility] Address: [address] [place] [address] Performed By: #### 2 4321-2 ####[facility] LABIA [id number] [address] ESTIMATED GLOMERULAR FILTRATION RATE 61 mL/min/1.73m??? Normal >=60 [facility] Comment on above: Order Comment: Speci men Type: BLOOD SPECIMENOrdering Facility: [facility] Address: [address] [place] [address] Result Comment: Kim mated Glomerular Filtration Rate (eGFR) is calculated using the 2020 CKD-EPI creatinine equation. This equation utilizes serum creatinine, sex, and age as parameters. The creatinine assay has traceable calibration to isotope dilution-mass spectrometry. Refer to KDIGO guidelines for clinical interpretation. In patients with unstable renal function, e.g. those with acute kidney injury, the eGFR may not accurately reflect actual GFR. Performed By: #### 2 4321-2 ####[facility] LABCLIA [id number] [place] [address] [place] Glucose [Mass/Vol] 125 mg/dL High 74-99 [facility] Comment on above: Order Comment: Speci men Type: BLOOD SPECIMENOrdering Facility: [facility] Address: [address] [place] [address] Result Comment: The [place] Diabetes Association (ADA) provides guidance for cutoff values for fasting glucose and random glucose. The ADA defines fasting as no caloric intake for at least 8 hours. Fasting plasma glucose results between 100 to 125 mg/dL indicate increased risk for diabetes (prediabetes).Fasting plasma glucose results greater than or equal to 126 mg/dL meet the criteria for diagnosis of diabetes. In the absence of unequivocal hyperglycemia, results should be confirmed by repeat testing. In a patient with classic symptoms of hyperglycemia or hyperglycemic crisis, random plasma glucose results greater than or equal to 200 mg/dL meet the criteria for diagnosis of diabetes.Reference: Standards of Medical Care in Diabetes 2016, [place] [employer]. Diabetes Care. 2016.39(Suppl 1). Performed By: #### 2 4321-2 ####[facility] LABCLIA [id number] [place] [address] [place] Potassium [Moles/Vol] 3.9 mmol/L Normal 3.7-5.1 [facility] Comment on above: Order Comment: Speci men Type: BLOOD SPECIMENOrdering Facility: [facility] Address: [address] [place] [address] Performed By: #### 2 4321-2 ####[facility] LABCLIA [id number] [place] [address] [place] Sodium [Moles/Vol] 137 mmol/L Normal 136-144 [facility] Comment on above: Order Comment: Speci men Type: BLOOD SPECIMENOrdering Facility: [facility] Address: [address] [place] [address] Performed By: #### 2 4321-2 ####[facility] LABCLIA [id number] [id number] [address] [place] Urea nitrogen [Mass/Vol] 20 mg/dL Normal 7-21 [facility] Comment on above: Order Comment: Speci men Type: BLOOD SPECIMENOrdering Facility: [facility] Address: [address] [place] [address] Performed By: #### 2 4321-2 ####[facility] LABCLIA [id number] [address] OF [facility] CASE MANAGEMon 08-21-2022 CASE MANAGEM Normal [facility] CBC panel Auto (Bld)on 08-21 Erythrocyte distribution width (RBC) [Ratio] 13.1 % Normal 11.5-15.0 [facility] Comment on above: Order Comment: Speci men Type: BLOOD SPECIMENOrdering Facility: [facility] Address: [address] [place] [address] Performed By: #### 5 8410-2 ####[facility] LABCLIA [id number] [address] [place] Hematocrit (Bld) [Volume fraction] 33.0 % Low 36.0-46.0 [facility] Comment on above: Order Comment: Speci men Type: BLOOD SPECIMENOrdering Facility: [facility] Address: [address] [place] [address] Performed By: #### 5 8410-2 ####[facility] LABCLIA [id number] [place] [address] [place] Hemoglobin (Bld) [Mass/Vol] 11.0 g/dL Low 11.5-15.5 [facility] Comment on above: Order Comment: Speci men Type: BLOOD SPECIMENOrdering Facility: [facility] Address: [address] [place] [address] Performed By: #### 5 8410-2 ####[facility] LABCLIA [id number] [place] [address] [place] MCH (RBC) [Entitic mass] 29.6 pg Normal 26.0-34.0 [facility] Comment on above: Order Comment: Speci men Type: BLOOD SPECIMENOrdering Facility: [facility] Address: [address] [place], [place] [address] Performed By: #### 5 8410-2 ####[facility] LABIA [id number] [address] [place] MCHC (RBC) [Mass/Vol] 33.3 g/dL Normal 30.5-36.0 [facility] Comment on above: Order Comment: Speci men Type: BLOOD SPECIMENOrdering Facility: [facility] Address: [address] [place] [address] Performed By: #### 5 8410-2 ####[facility] LABIA [id number] [place] [address] [place] MCV (RBC) [Entitic vol] 88.7 fL Normal 80.0-100.0 [facility] Comment on above: Order Comment: Speci men Type: BLOOD SPECIMENOrdering Facility: [facility] Address: [address] [place], [place] [address] Performed By: #### 5 8410-2 ####[facility] LABIA [id number] [place] [address] [place] Nucleated RBC (Bld) [#/Vol] 10*3/uL Normal <0.01 [facility] Comment on above: Order Comment: Speci men Type: BLOOD SPECIMENOrdering Facility: [facility] Address: [address] [place], [place] [address] Performed By: #### 5 8410-2 ####[facility] LABIA [id number] [place] [address] [place] Platelet mean volume (Bld) [Entitic vol] 11.8 fL Normal 9.0-12.7 [facility] Comment on above: Order Comment: Speci men Type: BLOOD SPECIMENOrdering Facility: [facility] Address: [address] Performed By: #### 5 8410-2 ####[facility] LABIA [id number] [place] [address] [place] Platelets (Bld) [#/Vol] 180 10*3/uL Normal 150-400 [facility] Comment on above: Order Comment: Speci men Type: BLOOD SPECIMENOrdering Facility: [facility] Address: [address] [place], [place] [address] Performed By: #### 5 8410-2 ####[facility] [id number] [place] [address] [place] RBC (Bld) [#/Vol] 3.72 10*6/uL Low 3.90-5.20 [facility] Comment on above: Order Comment: Speci men Type: BLOOD SPECIMENOrdering Facility: [facility] Address: [address] [place] [address] Performed By: #### 5 8410-2 ####[facility] [id number] [place] [address] [place] WBC (Bld) [#/Vol] 21.82 10*3/uL High 3.70-11.00 [facility] Comment on above: Order Comment: Speci men Type: BLOOD SPECIMENOrdering Facility: [facility] Address: [address] [place] [address] Performed By: #### 5 8410-2 ####[facility] [id number] [place] [id number] [place] THERAPY NTon 08-21-2022 THERAPY NT Normal [facility] THERAPY NT Normal [facility] NUTRITIONon 08-20-2022 NUTRITION Normal [facility] BRIEF OP NOTon 08-19-2022 BRIEF OP NOT Normal [facility] CONSULTon 08-19-2022 CONSULT Normal [facility] IR FILTER PLACEMENT IVCon IR FILTER PLACEMENT IVC [facility] 08-19-2022 PT ED Normal [facility] CASE MANAGEMon 08-18-2022 CASE MANAGEM Normal [facility] CBC W Auto Differential pane l (Bld)on 08-18-2022 Basophils (Bld) [#/Vol] 0.00 10*3/uL Normal <0.11 [facility] Comment on above: Order Comment: Speci men Type: BLOOD SPECIMENOrdering Facility: [facility] Address: [address] [place] [address] Performed By: #### 5 7021-8 ####[facility] LABCLIA [id number] [place] [address] [place] Basophils/100 WBC (Bld) 0.0 % Normal [facility] Comment on above: Order Comment: Speci men Type: BLOOD SPECIMENOrdering Facility: [facility] Address: [address] [place] [address] Performed By: #### 5 7021-8 ####[facility] LABCLIA [id number] [place] [address] [place] Differential cell count method Nom (Bld) Manual Normal [facility] Comment on above: Order Comment: Speci men Type: BLOOD SPECIMENOrdering Facility: [facility] Address: [address] [place] [address] Performed By: #### 5 7021-8 ####[facility] LABCLIA [id number] [place] [address] [place] Eosinophils (Bld) [#/Vol] 0.00 10*3/uL Normal <0.46 [facility] Comment on above: Order Comment: Speci men Type: BLOOD SPECIMENOrdering Facility: [facility] Address: [address] [place] [address] Performed By: #### 5 7021-8 ####[facility] LABCLIA [id number] [place] [address] [place] Eosinophils/100 WBC (Bld) 0.0 % Normal [facility] Comment on above: Order Comment: Speci men Type: BLOOD SPECIMENOrdering Facility: [facility] Address: [address] [place] [address] Performed By: #### 5 7021-8 ####[facility] LABCLIA [id number] [place] [address] [place] Erythrocyte distribution width (RBC) [Ratio] 12.3 % Normal 11.5-15.0 [facility] Comment on above: Order Comment: Speci men Type: BLOOD SPECIMENOrdering Facility: [facility] Address: [address] [place] [address] Performed By: #### 5 7021-8 ####[facility] LABIA [id number] [place] [address] [place] Hematocrit (Bld) [Volume fraction] 27.3 % Low 36.0-46.0 [facility] Comment on above: Order Comment: Speci men Type: BLOOD SPECIMENOrdering Facility: [facility] Address: [address] [place], [place] [address] Performed By: #### 5 7021-8 ####[facility] LABCLIA [id number] [place] [address] [place] Hemoglobin (Bld) [Mass/Vol] 9.4 g/dL Low 11.5-15.5 [facility] Comment on above: Order Comment: Speci men Type: BLOOD SPECIMENOrdering Facility: [facility] Address: [address] [place], [place] [address] Performed By: #### 5 7021-8 ####[facility] LABCLIA [id number] [place] [address] [place] Lymphocytes (Bld) [#/Vol] 1.02 10*3/uL Normal 1.00-4.00 [facility] Comment on above: Order Comment: Speci men Type: BLOOD SPECIMENOrdering Facility: [facility] Address: [address] [place] [place] [address] Performed By: #### 5 7021-8 ####[facility] LABCLIA [id number] [address] STATES OF [facility] Lymphocytes/100 WBC (Bld) 10.0 % Normal [facility] Comment on above: Order Comment: Speci men Type: BLOOD SPECIMENOrdering Facility: [facility] Address: [address] Performed By: #### 5 7021-8 ####[facility] LABCLIA [id number] [place] [address] [place] MCH (RBC) [Entitic mass] 29.7 pg Normal 26.0-34.0 [facility] Comment on above: Order Comment: Speci men Type: BLOOD SPECIMENOrdering Facility: [facility] Address: [address] Performed By: #### 5 7021-8 ####[facility] LABCLIA [id number] [address] [place] MCHC (RBC) [Mass/Vol] 34.4 g/dL Normal 30.5-36.0 [facility] Comment on above: Order Comment: Speci men Type: BLOOD SPECIMENOrdering Facility: [facility] Address: [address] [place] [address] Performed By: #### 5 7021-8 ####[facility] LABCLIA [id number] [place] [address] [place] MCV (RBC) [Entitic vol] 86.4 fL Normal 80.0-100.0 C [facility] Comment on above: Order Comment: Speci men Type: BLOOD SPECIMENOrdering Facility: [facility] Address: [address] [place], [place] [address] Performed By: #### 5 7021-8 ####[facility] LABCLIA [id number] [place] [address] [place] Monocytes (Bld) [#/Vol] 0.71 10*3/uL Normal <0.87 [facility] Comment on above: Order Comment: Speci men Type: BLOOD SPECIMENOrdering Facility: [facility] Address: [address] [place] [address] Performed By: #### 5 7021-8 ####[facility] LABCLIA [id number] [place] [address] [place] Monocytes/100 WBC (Bld) 7.0 % Normal [facility] Comment on above: Order Comment: Speci men Type: BLOOD SPECIMENOrdering Facility: [facility] Address: [address] [place] [address] Performed By: #### 5 7021-8 ####[facility] LABCLIA [id number] [address] [place] MYELO% 2.0 % Normal [facility] Comment on above: Order Comment: Speci men Type: BLOOD SPECIMENOrdering Facility: [facility] Address: [address] [place] [address] Performed By: #### 5 7021-8 ####[facility] LABCLIA [id number] [place] [address] [place] Neutrophils (Bld) [#/Vol] 8.24 10*3/uL High 1.45-7.50 [facility] Comment on above: Order Comment: Speci men Type: BLOOD SPECIMENOrdering Facility: [facility] Address: [address] [place] [address] Performed By: #### 5 7021-8 ####[facility] LABCLIA [id number] [address] [place] Neutrophils/100 WBC (Bld) 81.0 % Normal [facility] Comment on above: Order Comment: Speci men Type: BLOOD SPECIMENOrdering Facility: [facility] Address: [address] Performed By: #### 5 7021-8 ####[facility] LABCLIA [id number] [address] STATES [facility] Nucleated RBC (Bld) [#/Vol] 10*3/uL Normal <0.01 [facility] Comment on above: Order Comment: Speci men Type: BLOOD SPECIMENOrdering Facility: [facility] Address: [address] Performed By: #### 5 7021-8 ####[facility] LABCLIA [id number] [place] [address] [place] Nucleated RBC/100 WBC (Bld) [Ratio] 0.0 /100 WBC Normal [facility] Comment on above: Order Comment: Speci men Type: BLOOD SPECIMENOrdering Facility: [facility] Address: [address] Performed By: #### 5 7021-8 ####[facility] LABCLIA [id number] [place] [address] [place] Ovalocytes LM Ql (Bld) Few Normal [facility] Comment on above: Order Comment: Speci men Type: BLOOD SPECIMENOrdering Facility: [facility] Address: [address] Performed By: #### 5 7021-8 ####[facility] LABCLIA [id number] [place] [address] [place] [place] Platelet mean volume (Bld) [Entitic vol] 12.1 fL Normal 9.0-12.7 [facility] Comment on above: Order Comment: Speci men Type: BLOOD SPECIMENOrdering Facility: [facility] Address: [address] Performed By: #### 5 7021-8 ####[facility] LABCLIA [id number] [place] [address] [place] Platelets (Bld) [#/Vol] 132 10*3/uL Low 150-400 [facility] Comment on above: Order Comment: Speci men Type: BLOOD SPECIMENOrdering Facility: [facility] Address: [address] [place] [address] Performed By: #### 5 7021-8 ####[facility] LABCLIA [id number] [place] [address] [place] Platelets Estimate (Bld) [#/Vol] Decreased Normal [facility] Comment on above: Order Comment: Speci men Type: BLOOD SPECIMENOrdering Facility: [facility] Address: [address] [place], [place] [address] Performed By: #### 5 7021-8 ####[facility] LABIA [id number] [place] [address] [place] RBC (Bld) [#/Vol] 3.16 10*6/uL Low 3.90-5.20 [facility] Comment on above: Order Comment: Speci men Type: BLOOD SPECIMENOrdering Facility: [facility] Address: [address] [place], [place] [address] Performed By: #### 5 7021-8 ####[facility] LABIA [id number] [place] [address] [place] RED CELL MORPH Reviewed: see result s of individual morphologies Normal [facility] Comment on above: Order Comment: Speci men Type: BLOOD SPECIMENOrdering Facility: [facility] Address: [address] [place], [place] [address] Performed By: #### 5 7021-8 ####[facility] LABCLIA [id number] [place] [address] [place] WBC (Bld) [#/Vol] 10.17 10*3/uL Normal 3.70-11.00 [facility] Comment on above: Order Comment: Speci men Type: BLOOD SPECIMENOrdering Facility: [facility] Address: [address] [place] [address] Performed By: #### 5 7021-8 ####[facility] LABIA [id number] [place] [address] [place] WBC Left Shift Ql (Bld) Present Normal C [facility] Comment on above: Order Comment: Speci men Type: BLOOD SPECIMENOrdering Facility: [facility] Address: [address] [place] [address] Performed By: #### 5 7021-8 ####[facility] [id number] [place] [address] [place] Magnesium SerPl-mCncon 08-18 Magnesium [Mass/Vol] 2.1 mg/dL Normal 1.7-2.3 [facility] Comment on above: Order Comment: Speci men Type: BLOOD SPECIMENOrdering Facility: [facility] Address: [address] [address] Performed By: #### 2 4362-6, 55864-3 ####[facility] [id number] [place] [address] [place] Platelets Auto (Bld) [#/Vol] on 08-18-2022 Platelets (Bld) [#/Vol] 161 10*3/uL Normal 150-400 [facility] Comment on above: Order Comment: Speci men Type: BLOOD SPECIMENOrdering Facility: [facility] Address: [address] Performed By: #### 7 77-3 ####[facility] LABIA [id number] [place] [address] [place] Renal function 2000 panelon 08-18-2022 Albumin [Mass/Vol] 3.3 g/dL Low 3.9-4.9 [facility] Comment on above: Order Comment: Speci men Type: BLOOD SPECIMENOrdering Facility: [facility] Address: [address] [place] [address] Performed By: #### 2 4362-6, ####[facility] LABCLIA [id number] [place] [address] [place] Anion gap [Moles/Vol] 9 mmol/L Normal 9-18 [facility] Comment on above: Order Comment: Speci men Type: BLOOD SPECIMENOrdering Facility: [facility] Address: [address] Performed By: #### 2 4362-6, ####[facility] LABCLIA [id number] [place] [address] [place] Calcium [Mass/Vol] 8.6 mg/dL Normal 8.5-10.2 [facility] Comment on above: Order Comment: Speci men Type: BLOOD SPECIMENOrdering Facility: [facility] Address: [address] Performed By: #### 2 436-6, ####[facility] LABCLIA [id number] [place] [address] [place] Chloride [Moles/Vol] 104 mmol/L Normal 97-105 [facility] Comment on above: Order Comment: Speci men Type: BLOOD SPECIMENOrdering Facility: [facility] Address: [address] [place] [address] Performed By: #### 2 4362-6, ####[facility] LABCLIA [id number] [place] [id number] [place] CO2 [Moles/Vol] 25 mmol/L Normal 22-30 [facility] Comment on above: Order Comment: Speci men Type: BLOOD SPECIMENOrdering Facility: [facility] Address: [address] Performed By: #### 2 4362-6, ####[facility] LABIA [id number] [address] [place] Creatinine [Mass/Vol] 0.50 mg/dL Low 0.58-0.96 [facility] Comment on above: Order Comment: Speci men Type: BLOOD SPECIMENOrdering Facility: [facility] Address: [address] [place] [address] Performed By: #### 2 4362-6, ####[facility] LABIA [id number] [place] [address] [place] [facility] ESTIMATED GLOMERULAR FILTRATION RATE 96 mL/min/1.73m??? Normal >=60 [facility] Comment on above: Order Comment: Speci men Type: BLOOD SPECIMENOrdering Facility: [facility] Address: [address] Result Comment: Kim mated Glomerular Filtration Rate (eGFR) is calculated using the 2020 CKD-EPI creatinine equation. This equation utilizes serum creatinine, sex, and age as parameters. The creatinine assay has traceable calibration to isotope dilution-mass spectrometry. Refer to KDIGO guidelines for clinical interpretation. In patients with unstable renal function, e.g. those with acute kidney injury, the eGFR may not accurately reflect actual GFR. Performed By: #### 2 4362-6, ####[facility] LABIA [id number] [place] [address] [place] Glucose [Mass/Vol] 109 mg/dL High 74-99 [facility] Comment on above: Order Comment: Speci men Type: BLOOD SPECIMENOrdering Facility: [facility] Address: [address] [place] [address] Result Comment: The [place] Diabetes Association (ADA) provides guidance for cutoff values for fasting glucose and random glucose. The ADA defines fasting as no caloric intake for at least 8 hours. Fasting plasma glucose results between 100 to 125 mg/dL indicate increased risk for diabetes (prediabetes).Fasting plasma glucose results greater than or equal to 126 mg/dL meet the criteria for diagnosis of diabetes. In the absence of unequivocal hyperglycemia, results should be confirmed by repeat testing. In a patient with classic symptoms of hyperglycemia or hyperglycemic crisis, random plasma glucose results greater than or equal to 200 mg/dL meet the criteria for diagnosis of diabetes.Reference: Standards of Medical Care in Diabetes 2016, [place] [employer]. Diabetes Care. 2016.39(Suppl 1). Performed By: #### 2 436-, ####[facility] LABCLIA [id number] [place] [address] [place] Phosphate [Mass/Vol] 2.4 mg/dL Low 2.7-4.8 [facility] Comment on above: Order Comment: Speci men Type: BLOOD SPECIMENOrdering Facility: [facility] Address: [address] [place] [address] Performed By: #### 2 4361-12, ####[facility] LABCLIA [id number] [place] [address] [place] Potassium [Moles/Vol] 3.6 mmol/L Low 3.7-5.1 [facility] Comment on above: Order Comment: Speci men Type: BLOOD SPECIMENOrdering Facility: [facility] Address: [address] Performed By: #### 2 43608-28, ####[facility] LABCLIA [id number] [place] [address] [place] Sodium [Moles/Vol] 138 mmol/L Normal 136-144 [facility] Comment on above: Order Comment: Speci men Type: BLOOD SPECIMENOrdering Facility: [facility] Address: [address] [place] [address] Performed By: #### 2 43608-28, ####[facility] LABCLIA [id number] [place] [id number] [place] Urea nitrogen [Mass/Vol] 19 mg/dL Normal 7-21 [facility] Comment on above: Order Comment: Speci men Type: BLOOD SPECIMENOrdering Facility: [facility] Address: [address] [place] [address] Performed By: #### 2 4362-6, 55302-0 ####[facility] LABCLIA [id number] [address] [place] THERAPY NTon 08-18-2022 THERAPY NT Normal [facility] THERAPY NT Normal [facility] US LEG VEIN DVT UNL VAS LABo n 08-18-2022 US LEG VEIN DVT UNL VAS LAB Normal [facility] CASE MANAGEMon 08-17-2022 CASE MANAGEM Normal [facility] CBC W Auto Differential pane l (Bld)on 08-17-2022 Differential cell count method Nom (Bld) Manual Normal [facility] Comment on above: Order Comment: Speci men Type: BLOOD SPECIMENOrdering Facility: [facility] Address: [address] [place], [place] [address] Performed By: #### 5 7021-8 ####[facility] LABCLIA [id number] [place] [address] [place] Erythrocyte distribution width (RBC) [Ratio] 12.2 % Normal 11.5-15.0 [facility] Comment on above: Order Comment: Speci men Type: BLOOD SPECIMENOrdering Facility: [facility] Address: [address] [place], [place] [address] Performed By: #### 5 7021-8 ####[facility] LABCLIA [id number] [place] [address] [place] Hematocrit (Bld) [Volume fraction] 27.7 % Low 36.0-46.0 [facility] Comment on above: Order Comment: Speci men Type: BLOOD SPECIMENOrdering Facility: [facility] Address: [address] Performed By: #### 5 7021-8 ####[facility] LABCLIA [id number] [place] [address] [place] Hemoglobin (Bld) [Mass/Vol] 9.4 g/dL Low 11.5-15.5 [facility] Comment on above: Order Comment: Speci men Type: BLOOD SPECIMENOrdering Facility: [facility] Address: [address] [place] [address] Performed By: #### 5 7021-8 ####[facility] LABCLIA [id number] [address] [place] Lymphocytes/100 WBC (Bld) 7.0 % Normal [facility] Comment on above: Order Comment: Speci men Type: BLOOD SPECIMENOrdering Facility: [facility] Address: [address] [place] [address] Performed By: #### 5 7021-8 ####[facility] LABIA [id number] [address] [place] MCH (RBC) [Entitic mass] 29.7 pg Normal 26.0-34.0 [facility] Comment on above: Order Comment: Speci men Type: BLOOD SPECIMENOrdering Facility: [facility] Address: [address] [place] [address] Performed By: #### 5 7021-8 ####[facility] LABIA [id number] [place] [address] [place] MCHC (RBC) [Mass/Vol] 33.9 g/dL Normal 30.5-36.0 [facility] Comment on above: Order Comment: Speci men Type: BLOOD SPECIMENOrdering Facility: [facility] Address: [address] [place], [place] [address] Performed By: #### 5 7021-8 ####[facility] LABIA [id number] [place] [address] [place] MCV (RBC) [Entitic vol] 87.4 fL Normal 80.0-100.0 C [facility] Comment on above: Order Comment: Speci men Type: BLOOD SPECIMENOrdering Facility: [facility] Address: [address] Performed By: #### 5 7021-8 ####[facility] LABCLIA [id number] [place] [address] [place] Monocytes/100 WBC (Bld) 5.0 % Normal C [facility] Comment on above: Order Comment: Speci men Type: BLOOD SPECIMENOrdering Facility: [facility] Address: [address] Performed By: #### 5 7021-8 ####[facility] LABCLIA [id number] [place] [address] [place] MYELO% 1.0 % Normal [facility] Comment on above: Order Comment: Speci men Type: BLOOD SPECIMENOrdering Facility: [facility] Address: [address] Performed By: #### 5 7021-8 ####[facility] LABCLIA [id number] [place] [address] [place] Neutrophils/100 WBC (Bld) 87.0 % Normal [facility] Comment on above: Order Comment: Speci men Type: BLOOD SPECIMENOrdering Facility: [facility] Address: [address] [place], [place] [address] Performed By: #### 5 7021-8 ####[facility] LABCLIA [id number] [place] [address] [place] Ovalocytes LM Ql (Bld) Few Normal [facility] Comment on above: Order Comment: Speci men Type: BLOOD SPECIMENOrdering Facility: [facility] Address: [address] Performed By: #### 5 7021-8 ####[facility] LABCLIA [id number] [place] [address] [place] Platelet mean volume (Bld) [Entitic vol] 12.0 fL Normal 9.0-12.7 [facility] Comment on above: Order Comment: Speci men Type: BLOOD SPECIMENOrdering Facility: [facility] Address: [address] [place] [address] Performed By: #### 5 7021-8 ####[facility] LABCLIA [id number] [place] [address] [place] Platelets (Bld) [#/Vol] 121 10*3/uL Low 150-400 [facility] Comment on above: Order Comment: Speci men Type: BLOOD SPECIMENOrdering Facility: [facility] Address: [address] [place] [address] Performed By: #### 5 7021-8 ####[facility] LABIA [id number] [place] [address] [place] Platelets Estimate (Bld) [#/Vol] Decreased Normal [facility] Comment on above: Order Comment: Speci men Type: BLOOD SPECIMENOrdering Facility: [facility] Address: [address] [place], [place] [address] Performed By: #### 5 7021-8 ####[facility] LABIA [id number] [place] [address] [place] RBC (Bld) [#/Vol] 3.17 10*6/uL Low 3.90-5.20 [facility] Comment on above: Order Comment: Speci men Type: BLOOD SPECIMENOrdering Facility: [facility] Address: [address] [place], [place] [address] Performed By: #### 5 7021-8 ####[facility] LABIA [id number] [place] [address] [place] RED CELL MORPH Reviewed: see result s of individual morphologies Normal [facility] Comment on above: Order Comment: Speci men Type: BLOOD SPECIMENOrdering Facility: [facility] Address: [address] [place] [place] [address] Performed By: #### 5 7021-8 ####[facility] LABIA [id number] [place] [address] [place] WBC (Bld) [#/Vol] 9.85 10*3/uL Normal 3.70-11.00 [facility] Comment on above: Order Comment: Speci men Type: BLOOD SPECIMENOrdering Facility: [facility] Address: [address] [place] [address] Performed By: #### 5 7021-8 ####[facility] LABIA [id number] [place] [address] [place] WBC Left Shift Ql (Bld) Present Normal C [facility] Comment on above: Order Comment: Speci men Type: BLOOD SPECIMENOrdering Facility: [facility] Address: [address] [place] [address] Performed By: #### 5 7021-8 ####[facility] LABIA [id number] [place] [address] [place] Magnesium SerPl-mCncon 08-17 Magnesium [Mass/Vol] 2.3 mg/dL Normal 1.7-2.3 [facility] Comment on above: Order Comment: Speci men Type: BLOOD SPECIMENOrdering Facility: [facility] Address: [address] [place] [address] Performed By: #### 1 9123-9, 43781-8 ####[facility] LABIA [id number] [place] [address] [place] Renal function 2000 panelon 08-17-2022 Albumin [Mass/Vol] 3.3 g/dL Low 3.9-4.9 [facility] Comment on above: Order Comment: Speci men Type: BLOOD SPECIMENOrdering Facility: [facility] Address: [address] [place] [address], [place] [address] Performed By: #### 1 9123-9, 16708-8 ####[facility] LABCLIA [id number] [place] [address] [place] Anion gap [Moles/Vol] 8 mmol/L Low 9-18 [facility] Comment on above: Order Comment: Speci men Type: BLOOD SPECIMENOrdering Facility: [facility] Address: [address] Performed By: #### 1 9123-9, 84168-7 ####[facility] LABCLIA [id number] [place] [address] [place] Calcium [Mass/Vol] 8.7 mg/dL Normal 8.5-10.2 [facility] Comment on above: Order Comment: Speci men Type: BLOOD SPECIMENOrdering Facility: [facility] Address: [address] Performed By: #### 1 9123-9, 04043-1 ####[facility] LABCLIA [id number] [place] [address] [place] Chloride [Moles/Vol] 103 mmol/L Normal 97-105 [facility] Comment on above: Order Comment: Speci men Type: BLOOD SPECIMENOrdering Facility: [facility] Address: [address] [place] [address] Performed By: #### 1 9123-9, 64126-0 ####[facility] LABCLIA [id number] [place] [address] [place] CO2 [Moles/Vol] 27 mmol/L Normal 22-30 [facility] Comment on above: Order Comment: Speci men Type: BLOOD SPECIMENOrdering Facility: [facility] Address: [address] Performed By: #### 1 9123-9, 83715-1 ####[facility] LABCLIA [id number] [place] [address] [place] Creatinine [Mass/Vol] 0.62 mg/dL Normal 0.58-0.96 [facility] Comment on above: Order Comment: Kurt barraza Type: BLOOD SPECIMENOrdering Facility: [facility] Address: [address] [place] [address] Performed By: #### 1 9123-9, 17203-5 ####[facility] LABIA [id number] [address] OF [facility] ESTIMATED GLOMERULAR FILTRATION RATE 91 mL/min/1.73m??? Normal >=60 [facility] Comment on above: Order Comment: Kurt barraza Type: BLOOD SPECIMENOrdering Facility: [facility] Address: [address] [place] [address] Result Comment: Kim mated Glomerular Filtration Rate (eGFR) is calculated using the 2020 CKD-EPI creatinine equation. This equation utilizes serum creatinine, sex, and age as parameters. The creatinine assay has traceable calibration to isotope dilution-mass spectrometry. Refer to KDIGO guidelines for clinical interpretation. In patients with unstable renal function, e.g. those with acute kidney injury, the eGFR may not accurately reflect actual GFR. Performed By: #### 1 9123-9, 44583-0 ####[facility] LABIA [id number] [place] [address] [place] Glucose [Mass/Vol] 133 mg/dL High 74-99 [facility] Comment on above: Order Comment: Kurt barraza Type: BLOOD SPECIMENOrdering Facility: [facility] Address: [address] [place] [address] Result Comment: The [place] Diabetes Association (ADA) provides guidance for cutoff values for fasting glucose and random glucose. The ADA defines fasting as no caloric intake for at least 8 hours. Fasting plasma glucose results between 100 to 125 mg/dL indicate increased risk for diabetes (prediabetes).Fasting plasma glucose results greater than or equal to 126 mg/dL meet the criteria for diagnosis of diabetes. In the absence of unequivocal hyperglycemia, results should be confirmed by repeat testing. In a patient with classic symptoms of hyperglycemia or hyperglycemic crisis, random plasma glucose results greater than or equal to 200 mg/dL meet the criteria for diagnosis of diabetes.Reference: Standards of Medical Care in Diabetes 2016, [place] [employer]. Diabetes Care. 2016.39(Suppl 1). Performed By: #### 1 9123-9, ####[facility] LABCLIA [id number] [place] [address] [place] Phosphate [Mass/Vol] 2.8 mg/dL Normal 2.7-4.8 [facility] Comment on above: Order Comment: Speci men Type: BLOOD SPECIMENOrdering Facility: [facility] Address: [address] [place] [address] Performed By: #### 1 9123-9, ####[facility] LABCLIA [id number] [place] [address] [place] Potassium [Moles/Vol] 3.7 mmol/L Normal 3.7-5.1 [facility] Comment on above: Order Comment: Speci men Type: BLOOD SPECIMENOrdering Facility: [facility] Address: [address] [place] [address] Performed By: #### 1 9123-9, ####[facility] LABCLIA [id number] [place] [address] [place] Sodium [Moles/Vol] 138 mmol/L Normal 136-144 [facility] Comment on above: Order Comment: Speci men Type: BLOOD SPECIMENOrdering Facility: [facility] Address: [address] Performed By: #### 1 9123-9, ####[facility] LABCLIA [id number] [place] [id number] [place] Urea nitrogen [Mass/Vol] 17 mg/dL Normal 7-21 [facility] Comment on above: Order Comment: Speci men Type: BLOOD SPECIMENOrdering Facility: [facility] Address: [address] [place] [address] Performed By: #### 1 9123-9, 22974-1 ####[facility] LABCLIA [id number] [place] [address] [place] THERAPY NTon 08-17-2022 THERAPY NT Normal [facility] THERAPY NT Normal [facility] CBC W Auto Differential pane l (Bld)on 08-16-2022 Basophils (Bld) [#/Vol] 0.00 10*3/uL Normal <0.11 [facility] Comment on above: Order Comment: Speci men Type: BLOOD SPECIMENOrdering Facility: [facility] Address: [address] [place] [address] Performed By: #### 5 7021-8 ####[facility] LABCLIA [id number] [place] [address] [place] Basophils/100 WBC (Bld) 0.0 % Normal C [facility] Comment on above: Order Comment: Speci men Type: BLOOD SPECIMENOrdering Facility: [facility] Address: [address] [place] [address] Performed By: #### 5 7021-8 ####[facility] LABCLIA [id number] [place] [address] [place] Differential cell count method Nom (Bld) Manual Normal [facility] Comment on above: Order Comment: Speci men Type: BLOOD SPECIMENOrdering Facility: [facility] Address: [address] [place] [address] Performed By: #### 5 7021-8 ####[facility] LABCLIA [id number] [place] [address] [place] Eosinophils (Bld) [#/Vol] 0.00 10*3/uL Normal <0.46 [facility] Comment on above: Order Comment: Speci men Type: BLOOD SPECIMENOrdering Facility: [facility] Address: [address] Performed By: #### 5 7021-8 ####[facility] LABCLIA [id number] [place] [address] [place] Eosinophils/100 WBC (Bld) 0.0 % Normal [facility] Comment on above: Order Comment: Speci men Type: BLOOD SPECIMENOrdering Facility: [facility] Address: [address] Performed By: #### 5 7021-8 ####[facility] LABCLIA [id number] [place] [address] [place] Erythrocyte distribution width (RBC) [Ratio] 12.4 % Normal 11.5-15.0 [facility] Comment on above: Order Comment: Speci men Type: BLOOD SPECIMENOrdering Facility: [facility] Address: [address] Performed By: #### 5 7021-8 ####[facility] LABCLIA [id number] [place] [address] [place] Hematocrit (Bld) [Volume fraction] 32.3 % Low 36.0-46.0 [facility] Comment on above: Order Comment: Speci men Type: BLOOD SPECIMENOrdering Facility: [facility] Address: [address] Performed By: #### 5 7021-8 ####[facility] LABCLIA [id number] [place] [address] [place] Hemoglobin (Bld) [Mass/Vol] 10.6 g/dL Low 11.5-15.5 [facility] Comment on above: Order Comment: Speci men Type: BLOOD SPECIMENOrdering Facility: [facility] Address: [address] Performed By: #### 5 7021-8 ####[facility] LABCLIA [id number] [place] [address] [place] Lymphocytes (Bld) [#/Vol] 0.83 10*3/uL Low 1.00-4.00 [facility] Comment on above: Order Comment: Speci men Type: BLOOD SPECIMENOrdering Facility: [facility] Address: [address] [place] [address] Performed By: #### 5 7021-8 ####[facility] LABCLIA [id number] [place] [address] [place] Lymphocytes/100 WBC (Bld) 6.0 % Normal [facility] Comment on above: Order Comment: Speci men Type: BLOOD SPECIMENOrdering Facility: [facility] Address: [address] [place] [address] Performed By: #### 5 7021-8 ####[facility] LABCLIA [id number] [place] [address] [place] MCH (RBC) [Entitic mass] 29.4 pg Normal 26.0-34.0 [facility] Comment on above: Order Comment: Speci men Type: BLOOD SPECIMENOrdering Facility: [facility] Address: [address] [place] [address] Performed By: #### 5 7021-8 ####[facility] LABIA [id number] [place] [address] [place] MCHC (RBC) [Mass/Vol] 32.8 g/dL Normal 30.5-36.0 [facility] Comment on above: Order Comment: Speci men Type: BLOOD SPECIMENOrdering Facility: [facility] Address: [address] [place], [place] [address] Performed By: #### 5 7021-8 ####[facility] LABCLIA [id number] [place] [address] [place] MCV (RBC) [Entitic vol] 89.5 fL Normal 80.0-100.0 C [facility] Comment on above: Order Comment: Speci men Type: BLOOD SPECIMENOrdering Facility: [facility] Address: [address] Performed By: #### 5 7021-8 ####[facility] LABCLIA [id number] [place] [address] [place] Monocytes (Bld) [#/Vol] 1.10 10*3/uL High <0.87 [facility] Comment on above: Order Comment: Speci men Type: BLOOD SPECIMENOrdering Facility: [facility] Address: [address] Performed By: #### 5 7021-8 ####[facility] LABCLIA [id number] [place] [address] [place] Monocytes/100 WBC (Bld) 8.0 % Normal C [facility] Comment on above: Order Comment: Speci men Type: BLOOD SPECIMENOrdering Facility: [facility] Address: [address] Performed By: #### 5 7021-8 ####[facility] LABCLIA [id number] [place] [address] [place] MYELO% 1.0 % Normal [facility] Comment on above: Order Comment: Speci men Type: BLOOD SPECIMENOrdering Facility: [facility] Address: [address] [place] [address] Performed By: #### 5 7021-8 ####[facility] LABCLIA [id number] [place] [address] [place] Neutrophils (Bld) [#/Vol] 11.70 10*3/uL High 1.45-7.50 [facility] Comment on above: Order Comment: Speci men Type: BLOOD SPECIMENOrdering Facility: [facility] Address: [address] Performed By: #### 5 7021-8 ####[facility] LABCLIA [id number] [place] [address] [place] Neutrophils/100 WBC (Bld) 85.0 % Normal [facility] Comment on above: Order Comment: Speci men Type: BLOOD SPECIMENOrdering Facility: [facility] Address: [address] [place] [address] Performed By: #### 5 7021-8 ####[facility] LABCLIA [id number] [place] [address] [place] Nucleated RBC (Bld) [#/Vol] 10*3/uL Normal <0.01 [facility] Comment on above: Order Comment: Speci men Type: BLOOD SPECIMENOrdering Facility: [facility] Address: [address] [place] [address] Performed By: #### 5 7021-8 ####[facility] LABCLIA [id number] [place] [address] [place] Nucleated RBC/100 WBC (Bld) [Ratio] 0.0 /100 WBC Normal [facility] Comment on above: Order Comment: Speci men Type: BLOOD SPECIMENOrdering Facility: [facility] Address: [address] [place] [address] Performed By: #### 5 7021-8 ####[facility] LABCLIA [id number] [place] [address] [place] Ovalocytes LM Ql (Bld) Few Normal [facility] Comment on above: Order Comment: Speci men Type: BLOOD SPECIMENOrdering Facility: [facility] Address: [address] [place], [place] [address] Performed By: #### 5 7021-8 ####[facility] LABIA [id number] [place] [address] [place] Platelet mean volume (Bld) [Entitic vol] 12.3 fL Normal 9.0-12.7 [facility] Comment on above: Order Comment: Speci men Type: BLOOD SPECIMENOrdering Facility: [facility] Address: [address] [place] [address] Performed By: #### 5 7021-8 ####[facility] LABCLIA [id number] [place] [address] [place] Platelets (Bld) [#/Vol] 137 10*3/uL Low 150-400 [facility] Comment on above: Order Comment: Speci men Type: BLOOD SPECIMENOrdering Facility: [facility] Address: [address] Performed By: #### 5 7021-8 ####[facility] LABCLIA [id number] [place] [address] [place] Platelets Estimate (Bld) [#/Vol] Decreased Normal [facility] Comment on above: Order Comment: Speci men Type: BLOOD SPECIMENOrdering Facility: [facility] Address: [address] Performed By: #### 5 7021-8 ####[facility] LABCLIA [id number] [place] [address] [place] Polychromasia LM Ql (Bld) Slight Normal [facility] Comment on above: Order Comment: Speci men Type: BLOOD SPECIMENOrdering Facility: [facility] Address: [address] [place] [address] Performed By: #### 5 7021-8 ####[facility] LABCLIA [id number] [place] [address] [place] RBC (Bld) [#/Vol] 3.61 10*6/uL Low 3.90-5.20 [facility] Comment on above: Order Comment: Speci men Type: BLOOD SPECIMENOrdering Facility: [facility] Address: [address] [place] [address] Performed By: #### 5 7021-8 ####[facility] LABCLIA [id number] [place] [address] [place] RED CELL MORPH Reviewed: see result s of individual morphologies Normal [facility] Comment on above: Order Comment: Speci men Type: BLOOD SPECIMENOrdering Facility: [facility] Address: [address] [place] [address] Performed By: #### 5 7021-8 ####[facility] LABCLIA [id number] [place] [address] [place] WBC (Bld) [#/Vol] 13.77 10*3/uL High 3.70-11.00 [facility] Comment on above: Order Comment: Speci men Type: BLOOD SPECIMENOrdering Facility: [facility] Address: [address] [place] [address] Performed By: #### 5 7021-8 ####[facility] LABCLIA [id number] [place] [address] [place] WBC Left Shift Ql (Bld) Present Normal [facility] Comment on above: Order Comment: Speci men Type: BLOOD SPECIMENOrdering Facility: [facility] Address: [address] [place], [place] [address] Performed By: #### 5 7021-8 ####[facility] LABCLIA [id number] [place] [address] [place] Magnesium SerPl-mCncon 08-16 Magnesium [Mass/Vol] 2.4 mg/dL High 1.7-2.3 [facility] Comment on above: Order Comment: Speci men Type: BLOOD SPECIMENOrdering Facility: [facility] Address: [address] [place], [place] [address] Performed By: #### 1 9123-9, 67668-4 ####[facility] LABCLIA [id number] [place] [address] [place] Renal function 2000 panelon 08-16-2022 Albumin [Mass/Vol] 3.7 g/dL Low 3.9-4.9 [facility] Comment on above: Order Comment: Speci men Type: BLOOD SPECIMENOrdering Facility: [facility] Address: [address] [place] [address] Performed By: #### 1 9123-9, 15114-1 ####[facility] LABCLIA [id number] [place] [address] [place] Anion gap [Moles/Vol] 11 mmol/L Normal 9-18 [facility] Comment on above: Order Comment: Speci men Type: BLOOD SPECIMENOrdering Facility: [facility] Address: [address] [place] [address] Performed By: #### 1 9123-9, 76283-8 ####[facility] LABCLIA [id number] [place] [address] [place] Calcium [Mass/Vol] 9.0 mg/dL Normal 8.5-10.2 [facility] Comment on above: Order Comment: Speci men Type: BLOOD SPECIMENOrdering Facility: [facility] Address: [address] [place], [place] [address] Performed By: #### 1 9123-9, 68795-7 ####[facility] LABCLIA [id number] [place] [address] [place] Chloride [Moles/Vol] 101 mmol/L Normal 97-105 [facility] Comment on above: Order Comment: Speci men Type: BLOOD SPECIMENOrdering Facility: [facility] Address: [address] [place], [place] [address] Performed By: #### 1 9123-9, 21540-9 ####[facility] LABCLIA [id number] [place] [address] [place] CO2 [Moles/Vol] 22 mmol/L Normal 22-30 [facility] Comment on above: Order Comment: Speci men Type: BLOOD SPECIMENOrdering Facility: [facility] Address: [address] [address] Performed By: #### 1 9123-9, 31005-7 ####[facility] LABCLIA [id number] [place] [address] [place] Creatinine [Mass/Vol] 0.62 mg/dL Normal 0.58-0.96 [facility] Comment on above: Order Comment: Speci men Type: BLOOD SPECIMENOrdering Facility: [facility] Address: [address] [place] [address] Performed By: #### 1 9123-9, 95056-6 ####[facility] LABIA [id number] [place] [address] [place] ESTIMATED GLOMERULAR FILTRATION RATE 91 mL/min/1.73m??? Normal >=60 [facility] Comment on above: Order Comment: Speci men Type: BLOOD SPECIMENOrdering Facility: [facility] Address: [address] [place] [address] Result Comment: Kim mated Glomerular Filtration Rate (eGFR) is calculated using the 2020 CKD-EPI creatinine equation. This equation utilizes serum creatinine, sex, and age as parameters. The creatinine assay has traceable calibration to isotope dilution-mass spectrometry. Refer to KDIGO guidelines for clinical interpretation. In patients with unstable renal function, e.g. those with acute kidney injury, the eGFR may not accurately reflect actual GFR. Performed By: #### 1 9123-9, 51492-5 ####[facility] LABIA [id number] [place] [address] [place] Glucose [Mass/Vol] 107 mg/dL High 74-99 [facility] Comment on above: Order Comment: Speci men Type: BLOOD SPECIMENOrdering Facility: [facility] Address: [address] [place] [address] Result Comment: The [place] Diabetes [employer] (ADA) provides guidance for cutoff values for fasting glucose and random glucose. The ADA defines fasting as no caloric intake for at least 8 hours. Fasting plasma glucose results between 100 to 125 mg/dL indicate increased risk for diabetes (prediabetes).Fasting plasma glucose results greater than or equal to 126 mg/dL meet the criteria for diagnosis of diabetes. In the absence of unequivocal hyperglycemia, results should be confirmed by repeat testing. In a patient with classic symptoms of hyperglycemia or hyperglycemic crisis, random plasma glucose results greater than or equal to 200 mg/dL meet the criteria for diagnosis of diabetes.Reference: Standards of Medical Care in Diabetes 2016, [place] [employer]. Diabetes Care. 2016.39(Suppl 1). Performed By: #### 1 9123-9, 00604-6 ####[facility] LABCLIA [id number] [place] [address] [place] Phosphate [Mass/Vol] 2.5 mg/dL Low 2.7-4.8 [facility] Comment on above: Order Comment: Speci men Type: BLOOD SPECIMENOrdering Facility: [facility] Address: [address] [place] [address] Performed By: #### 1 91239, ####[facility] LABCLIA [id number] [place] [address] [place] Potassium [Moles/Vol] 3.7 mmol/L Normal 3.7-5.1 [facility] Comment on above: Order Comment: Speci men Type: BLOOD SPECIMENOrdering Facility: [facility] Address: [address] Performed By: #### 1 91239, ####[facility] LABCLIA [id number] [place] [address] [place] Sodium [Moles/Vol] 134 mmol/L Low 136-144 [facility] Comment on above: Order Comment: Speci men Type: BLOOD SPECIMENOrdering Facility: [facility] Address: [address] Performed By: #### 1 91239, 89980-3 ####[facility] LABCLIA [id number] [place] [address] [place] Urea nitrogen [Mass/Vol] 17 mg/dL Normal 7-21 [facility] Comment on above: Order Comment: Speci men Type: BLOOD SPECIMENOrdering Facility: [facility] Address: [address] [address] Performed By: #### 1 9123-9, 46818-1 ####[facility] [id number] [place] [address] [place] THERAPY NTon 08-16-2022 THERAPY NT Normal [facility] NT Normal [facility] THERAPY NT Normal [facility] ALLIED HEALTHon 08-15-2022 ALLIED HEALTH Normal [facility] ANES POSTPROC EVALon 023 ANES POSTPROC EVAL Normal [facility] CASE MGT INIT ASSESon 2022 CASE MGT INIT ASSES Normal [facility] MRI BRAIN WO/W IVCONon 08-15 MRI BRAIN WO/W IVCON Normal [facility] THERAPY NTon 08-15-2022 THERAPY NT Normal [facility] NT Normal [facility] ANES PRE-OPon 08-14-2022 ANES PRE-OP Normal [facility] ARTERIAL BLOOD GASESon 08-14 Base deficit (BldA) [Moles/Vol] -1 mmol/L Normal -2-0 [facility] Comment on above: Order Comment: Speci men Type: ARTERIAL BLOOD SPECIMENOrdering Facility: [facility] Address: [address] [id number] Performed By: #### A LLBG ####[facility] LABIA [id number] [place] [address] [place] Calcium.ionized (Bld) [Mass/Vol] 1.05 mmol/L Low 1.08-1.30 [facility] Comment on above: Order Comment: Speci men Type: ARTERIAL BLOOD SPECIMENOrdering Facility: [facility] Address: [address] [address] Performed By: #### A LLBG ####[facility] [id number] [place] [address] [place] Calcium.ionized adjusted to pH 7.4 (BldA) [Moles/Vol] 1.07 mmol/L Low 1.08-1.30 [facility] Comment on above: Order Comment: Speci men Type: ARTERIAL BLOOD SPECIMENOrdering Facility: [facility] Address: [address] [address] Performed By: #### A LLBG ####[facility] [id number] [place] [address] [place] Carboxyhemoglobin (BldA) [Mass fraction] 1.3 % Normal 0.0-2.0 [facility] Comment on above: Order Comment: Speci men Type: ARTERIAL BLOOD SPECIMENOrdering Facility: [facility] Address: [address] [address] Result Comment: Carb oxyhemoglobin Reference Range for Smokers: 2.0-8.0% Performed By: #### A LLBG ####[facility] [id number] [place] [address] [place] CO2 (Bld) [Partial pressure] 33 mm Hg Low 36-46 [facility] Comment on above: Order Comment: Speci men Type: ARTERIAL BLOOD SPECIMENOrdering Facility: [facility] Address: [address] Performed By: #### A LLBG ####[facility] [id number] [place] [address] [place] CO2 [Moles/Vol] 23 mmol/L Normal 22-28 [facility] Comment on above: Order Comment: Speci men Type: ARTERIAL BLOOD SPECIMENOrdering Facility: [facility] Address: [address] Performed By: #### A LLBG ####[facility] LABCLIA [id number] [place] [address] [place] CO2 adjusted to patient's actual temperature (Bld) [Partial pressure] 33 mmHg Low 36-46 [facility] Comment on above: Order Comment: Speci men Type: ARTERIAL BLOOD SPECIMENOrdering Facility: [facility] Address: [address] [place] [address] Performed By: #### A LLBG ####[facility] LABCLIA [id number] [place] [address] [place] Glucose [Mass/Vol] 138 mg/dL High 60-105 [facility] Comment on above: Order Comment: Speci men Type: ARTERIAL BLOOD SPECIMENOrdering Facility: [facility] Address: [address] [place] [address] Performed By: #### A LLBG ####[facility] LABCLIA [id number] [place] [address] [place] HCO3 (Bld) [Moles/Vol] 22 mmol/L Normal 22-26 [facility] Comment on above: Order Comment: Speci men Type: ARTERIAL BLOOD SPECIMENOrdering Facility: [facility] Address: [address] [place], [place] [address] Performed By: #### A LLBG ####[facility] LABCLIA [id number] [place] [address] [place] Hematocrit (Bld) [Volume fraction] 37.6 % Normal 36.0-46.0 [facility] Comment on above: Order Comment: Speci men Type: ARTERIAL BLOOD SPECIMENOrdering Facility: [facility] Address: [address] [place], [place] [address] Performed By: #### A LLBG ####[facility] LABCLIA [id number] [place] [address] [place] Hemoglobin (Bld) [Mass/Vol] 12.2 g/dL Normal 11.5-15.5 [facility] Comment on above: Order Comment: Speci men Type: ARTERIAL BLOOD SPECIMENOrdering Facility: [facility] Address: [address] [place], [place] [address] Performed By: #### A LLBG ####[facility] LABCLIA [id number] [place] [address] [place] Lactate [Moles/Vol] 1.8 mmol/L Normal 0.5-2.2 [facility] Comment on above: Order Comment: Speci men Type: ARTERIAL BLOOD SPECIMENOrdering Facility: [facility] Address: [address] [place], [place] [address] Performed By: #### A LLBG ####[facility] LABCLIA [id number] [address] [place] Methemoglobin (Bld) [Mass fraction] 0.7 % Normal 0.0-1.5 [facility] Comment on above: Order Comment: Speci men Type: ARTERIAL BLOOD SPECIMENOrdering Facility: [facility] Address: [address] [place], [place] [address] Performed By: #### A LLBG ####[facility] LABCLIA [id number] [address] [place] Oxygen (Bld) [Partial pressure] 183 mm Hg High 85-95 [facility] Comment on above: Order Comment: Speci men Type: ARTERIAL BLOOD SPECIMENOrdering Facility: [facility] Address: [address] Performed By: #### A LLBG ####[facility] LABCLIA [id number] [place] [address] [place] Oxygen adjusted to patient's actual temperature (Bld) [Partial pressure] 183 mmHg High 85-95 [facility] Comment on above: Order Comment: Speci men Type: ARTERIAL BLOOD SPECIMENOrdering Facility: [facility] Address: [address] [place] [address] Performed By: #### A LLBG ####[facility] LABCLIA [id number] [place] [address] [place] Oxyhemoglobin (BldA) [Mass fraction] 98 % Normal 95-98 [facility] Comment on above: Order Comment: Speci men Type: ARTERIAL BLOOD SPECIMENOrdering Facility: [facility] Address: [address] [place], [place] [address] Performed By: #### A LLBG ####[facility] LABCLIA [id number] [place] [address] [place] pH (Bld) 7.44 [pH] Normal 7.35-7.45 [facility] Comment on above: Order Comment: Speci men Type: ARTERIAL BLOOD SPECIMENOrdering Facility: [facility] Address: [address] [place], [place] [address] Performed By: #### A LLBG ####[facility] LABIA [id number] [place] [address] [place] pH adjusted to patient's actual temperature (Bld) 7.44 Normal 7.35-7.45 [facility] Comment on above: Order Comment: Speci men Type: ARTERIAL BLOOD SPECIMENOrdering Facility: [facility] Address: [address] [place], [place] [address] Performed By: #### A LLBG ####[facility] LABCLIA [id number] [place] [address] [place] Potassium [Moles/Vol] 3.5 mmol/L Normal 3.5-5.0 [facility] Comment on above: Order Comment: Speci men Type: ARTERIAL BLOOD SPECIMENOrdering Facility: [facility] Address: [address] [place], [place] [address] Performed By: #### A LLBG ####[facility] LABIA [id number] [place] [address] [place] Sodium [Moles/Vol] 139 mmol/L Normal 136-144 [facility] Comment on above: Order Comment: Speci men Type: ARTERIAL BLOOD SPECIMENOrdering Facility: [facility] Address: [address] [place] [address] Performed By: #### A LLBG ####[facility] LABCLIA [id number] [place] [address] [place] ARTERIAL BLOOD GASES WITH IO NIZED MAGNESIUMon 08-14-2022 Base excess Calc (Bld) [Moles/Vol] 0 mmol/L Normal 0-2 [facility] Comment on above: Order Comment: Speci men Type: ARTERIAL BLOOD SPECIMENOrdering Facility: [facility] Address: [address] [place], [place] [address] Performed By: #### A LLMG ####[facility] LABIA [id number] [address] [place] Calcium.ionized (Bld) [Mass/Vol] 1.14 mmol/L Normal 1.08-1.30 [facility] Comment on above: Order Comment: Speci men Type: ARTERIAL BLOOD SPECIMENOrdering Facility: [facility] Address: [address] [place] [address] Performed By: #### A LLMG ####[facility] LABIA [id number] [address] [place] Calcium.ionized adjusted to pH 7.4 (BldA) [Moles/Vol] 1.18 mmol/L Normal 1.08-1.30 [facility] Comment on above: Order Comment: Speci men Type: ARTERIAL BLOOD SPECIMENOrdering Facility: [facility] Address: [address] [place], [place] [address] Performed By: #### A LLMG ####[facility] LABCLIA [id number] [place] [address] [place] Carboxyhemoglobin (BldA) [Mass fraction] 1.3 % Normal 0.0-2.0 [facility] Comment on above: Order Comment: Speci men Type: ARTERIAL BLOOD SPECIMENOrdering Facility: [facility] Address: [address] [address] Result Comment: Carb oxyhemoglobin Reference Range for Smokers: 2.0-8.0% Performed By: #### A LLMG ####[facility] LABCLIA [id number] [place] [address] [place] CO2 (Bld) [Partial pressure] 31 mm Hg Low 36-46 [facility] Comment on above: Order Comment: Speci men Type: ARTERIAL BLOOD SPECIMENOrdering Facility: [facility] Address: [address] [place] [address] Performed By: #### A LLMG ####[facility] LABCLIA [id number] [place] [address] [place] CO2 [Moles/Vol] 23 mmol/L Normal 22-28 [facility] Comment on above: Order Comment: Speci men Type: ARTERIAL BLOOD SPECIMENOrdering Facility: [facility] Address: [address] [place] [address] Performed By: #### A LLMG ####[facility] LABCLIA [id number] [place] [address] [place] CO2 adjusted to patient's actual temperature (Bld) [Partial pressure] 31 mmHg Low 36-46 [facility] Comment on above: Order Comment: Speci men Type: ARTERIAL BLOOD SPECIMENOrdering Facility: [facility] Address: [address] [address] Performed By: #### A LLMG ####[facility] LABCLIA [id number] [place] [address] [place] Glucose [Mass/Vol] 133 mg/dL High 60-105 [facility] Comment on above: Order Comment: Speci men Type: ARTERIAL BLOOD SPECIMENOrdering Facility: [facility] Address: [address] [address] Performed By: #### A LLMG ####[facility] LABCLIA [id number] [place] [address] [place] HCO3 (Bld) [Moles/Vol] 22 mmol/L Normal 22-26 [facility] Comment on above: Order Comment: Speci men Type: ARTERIAL BLOOD SPECIMENOrdering Facility: [facility] Address: [address] [place], [place] [address] Performed By: #### A LLMG ####[facility] LABCLIA [id number] [place] [address] [place] Hematocrit (Bld) [Volume fraction] 41.3 % Normal 36.0-46.0 [facility] Comment on above: Order Comment: Speci men Type: ARTERIAL BLOOD SPECIMENOrdering Facility: [facility] Address: [address] [place], [place] [address] Performed By: #### A LLMG ####[facility] LABIA [id number] [place] [address] [place] Hemoglobin (Bld) [Mass/Vol] 13.4 g/dL Normal 11.5-15.5 [facility] Comment on above: Order Comment: Speci men Type: ARTERIAL BLOOD SPECIMENOrdering Facility: [facility] Address: [address] Performed By: #### A LLMG ####[facility] LABCLIA [id number] [place] [address] [place] Lactate [Moles/Vol] 1.4 mmol/L Normal 0.5-2.2 [facility] Comment on above: Order Comment: Speci men Type: ARTERIAL BLOOD SPECIMENOrdering Facility: [facility] Address: [address] Performed By: #### A LLMG ####[facility] LABCLIA [id number] [address] [id number] [address] [place] Magnesium [Moles/Vol] 0.77 mmol/L High 0.45-0.60 [facility] Comment on above: Order Comment: Speci men Type: ARTERIAL BLOOD SPECIMENOrdering Facility: [facility] Address: [address] [place], [place] [address] Performed By: #### A LLMG ####[facility] LABCLIA [id number] [place] [address] [place] Methemoglobin (Bld) [Mass fraction] 1.0 % Normal 0.0-1.5 [facility] Comment on above: Order Comment: Speci men Type: ARTERIAL BLOOD SPECIMENOrdering Facility: [facility] Address: [address] [place], [place] [address] Performed By: #### A LLMG ####[facility] LABCLIA [id number] [place] [address] [place] Oxygen (Bld) [Partial pressure] 143 mm Hg High 85-95 [facility] Comment on above: Order Comment: Speci men Type: ARTERIAL BLOOD SPECIMENOrdering Facility: [facility] Address: [address] [place], [place] [address] Performed By: #### A LLMG ####[facility] LABCLIA [id number] [place] [address] [place] Oxygen adjusted to patient's actual temperature (Bld) [Partial pressure] 143 mmHg High 85-95 [facility] Comment on above: Order Comment: Speci men Type: ARTERIAL BLOOD SPECIMENOrdering Facility: [facility] Address: [address] [place], [place] [address] Performed By: #### A LLMG ####[facility] LABCLIA [id number] [place] [address] [place] Oxyhemoglobin (BldA) [Mass fraction] 97 % Normal 95-98 [facility] Comment on above: Order Comment: Speci men Type: ARTERIAL BLOOD SPECIMENOrdering Facility: [facility] Address: [address] Performed By: #### A LLMG ####[facility] LABCLIA [id number] [place] [address] [place] pH (Bld) 7.47 [pH] High 7.35-7.45 [facility] Comment on above: Order Comment: Speci men Type: ARTERIAL BLOOD SPECIMENOrdering Facility: [facility] Address: [address] Performed By: #### A LLMG ####[facility] LABIA [id number] [place] [address] [place] pH adjusted to patient's actual temperature (Bld) 7.47 High 7.35-7.45 [facility] Comment on above: Order Comment: Speci men Type: ARTERIAL BLOOD SPECIMENOrdering Facility: [facility] Address: [address] [place], [place] [address] Performed By: #### A LLMG ####[facility] LABIA [id number] [place] [address] [place] Potassium [Moles/Vol] 3.0 mmol/L Low 3.5-5.0 [facility] Comment on above: Order Comment: Speci men Type: ARTERIAL BLOOD SPECIMENOrdering Facility: [facility] Address: [address] [place], [place] [address] Performed By: #### A LLMG ####[facility] LABCLIA [id number] [place] [address] [place] Sodium [Moles/Vol] 140 mmol/L Normal 136-144 [facility] Comment on above: Order Comment: Speci men Type: ARTERIAL BLOOD SPECIMENOrdering Facility: [facility] Address: [address] [place], [place] [address] Performed By: #### A LLMG ####[facility] LABCLIA [id number] [place] [address] [place] Basic metabolic 2000 panelon 08-14-2022 Anion gap [Moles/Vol] 9 mmol/L Normal 9-18 [facility] Comment on above: Order Comment: Speci men Type: BLOOD SPECIMENOrdering Facility: [facility] Address: [address] [place] [address] Performed By: #### 2 4321-2 ####[facility] LABCLIA [id number] [place] [address] [place] Calcium [Mass/Vol] 8.0 mg/dL Low 8.5-10.2 [facility] Comment on above: Order Comment: Speci men Type: BLOOD SPECIMENOrdering Facility: [facility] Address: [address] [place] [address] Performed By: #### 2 4321-2 ####[facility] LABCLIA [id number] [place] [address] [place] Chloride [Moles/Vol] 110 mmol/L High 97-105 [facility] Comment on above: Order Comment: Speci men Type: BLOOD SPECIMENOrdering Facility: [facility] Address: [address] [place], [place] [address] Performed By: #### 2 4321-2 ####[facility] LABCLIA [id number] [place] [address] [place] CO2 [Moles/Vol] 22 mmol/L Normal 22-30 [facility] Comment on above: Order Comment: Speci men Type: BLOOD SPECIMENOrdering Facility: [facility] Address: [address] [place], [place] [address] Performed By: #### 2 4321-2 ####[facility] LABCLIA [id number] [place] [address] [place] Creatinine [Mass/Vol] 0.67 mg/dL Normal 0.58-0.96 [facility] Comment on above: Order Comment: Speci men Type: BLOOD SPECIMENOrdering Facility: [facility] Address: [address] [address] Performed By: #### 2 4321-2 ####[facility] LABIA [id number] [place] [address] [place] ESTIMATED GLOMERULAR FILTRATION RATE 89 mL/min/1.73m??? Normal >=60 [facility] Comment on above: Order Comment: Kurt men Type: BLOOD SPECIMENOrdering Facility: [facility] Address: [address] [address] Result Comment: Kim mated Glomerular Filtration Rate (eGFR) is calculated using the 2020 CKD-EPI creatinine equation. This equation utilizes serum creatinine, sex, and age as parameters. The creatinine assay has traceable calibration to isotope dilution-mass spectrometry. Refer to KDIGO guidelines for clinical interpretation. In patients with unstable renal function, e.g. those with acute kidney injury, the eGFR may not accurately reflect actual GFR. Performed By: #### 2 4321-2 ####[facility] LABCLIA [id number] [place] [address] [place] Glucose [Mass/Vol] 152 mg/dL High 74-99 [facility] Comment on above: Order Comment: Kurt barraza Type: BLOOD SPECIMENOrdering Facility: [facility] Address: [address] [place] [address] Result Comment: The [place] Diabetes Association (ADA) provides guidance for cutoff values for fasting glucose and random glucose. The ADA defines fasting as no caloric intake for at least 8 hours. Fasting plasma glucose results between 100 to 125 mg/dL indicate increased risk for diabetes (prediabetes).Fasting plasma glucose results greater than or equal to 126 mg/dL meet the criteria for diagnosis of diabetes. In the absence of unequivocal hyperglycemia, results should be confirmed by repeat testing. In a patient with classic symptoms of hyperglycemia or hyperglycemic crisis, random plasma glucose results greater than or equal to 200 mg/dL meet the criteria for diagnosis of diabetes.Reference: Standards of Medical Care in Diabetes 2016, [place] Diabetes Association. Diabetes Care. 2016.39(Suppl 1). Performed By: #### 2 4321-2 ####[facility] LABCLIA [id number] [place] [address] [place] Potassium [Moles/Vol] 3.8 mmol/L Normal 3.7-5.1 [facility] Comment on above: Order Comment: Speci men Type: BLOOD SPECIMENOrdering Facility: [facility] Address: [address] [place] [address] Performed By: #### 2 4321-2 ####[facility] LABCLIA [id number] [place] [address] [place] Sodium [Moles/Vol] 141 mmol/L Normal 136-144 [facility] Comment on above: Order Comment: Speci men Type: BLOOD SPECIMENOrdering Facility: [facility] Address: [address] [place] [address] Performed By: #### 2 4321-2 ####[facility] LABCLIA [id number] [place] [address] [place] Urea nitrogen [Mass/Vol] 20 mg/dL Normal 7-21 [facility] Comment on above: Order Comment: Speci men Type: BLOOD SPECIMENOrdering Facility: [facility] Address: [address] [place] [address] Performed By: #### 2 4321-2 ####[facility] LABCLIA [id number] [place] [address] [place] FISH FOR 1P/19Qon 08-14-2022 FISH FOR 1P/19Q FISH for 1p/19q Normal [facility] Comment on above: Order Comment: Speci men Type: TISSUE SPECIMENOrdering Facility: [facility] Address: [address] [place] [address] Result Comment: Tiffany coffey Accession Number: [id number]: [id number]: [id number] Type: FFPETSample Description: BRAIN, RIGHT PARIETAL LESIONReceived Date: 2022-08-17 14:08:38RESULTS:Chromosome 1p: INTACT, EUSOMICChromosome 19q: INTACT, EUSOMICQuantitative FISH results:Number of nuclei scored: 401p36: 2.731q25: 2.481p36/1q25 ratio: 1.10 (Reference Range: Intact > 0.75; Loss < or =0.75)Number of nuclei scored: 8528y82: 2.8112j55: 2.4070i88/19p13 ratio: 0.98 (Reference Range: Intact > 0.75; Loss < or= 0.75)INTERPRETATION:A majority of nuclei showed similar numbers of 1p36 and 1q25 signals.There is no evidence of allelic loss on the short arm of chromosome 1(1p).A majority of nuclei showed similar numbers of 19q13 and 98z97wakkxnv. There is no evidence of allelic loss of 19q.COMMENT:Allelic loss on chromosome 1p has been shown to correlate withchemoresponsiveness and long progression-free survival in somegliomas. This correlation is stronger when there is concomitantallelic loss on 19q. An association of chemoresponsiveness and/or longprogression-free survival with allelic loss on 19q in the absence ofloss on 1p has not been established. In patients with 1p/19q loss,aneusomy for chromosome 1 and 19 may be associated with earlierrecurrence. In addition, codeletion of the loci on 1p and 19q isassociated with an oligodendroglioma phenotype.REFERENCES:Stephen DN, Maribel Grimaldo W[place]. World Health OrganizationClassification of Tumours of the Central Nervous System. 4th ed. Smith:International Agency for Research on Cancer, 2016.METHODOLOGY:Interphase fluorescence in situ hybridization (FISH) was performed onformalin-fixed, paraffin embedded tissue sections with the LSI 1p36(1p36.3)/LSI 1q25 (1q25.2) and LSI 19p13 (19p13.3)/LSI 19q13 (19q13.3)probe sets ([employer], [place], [place]). Reported quantitative datarepresents an average of 40 nuclei. Loss is defined as a ratio of lessthan or equal to 0.75. Aneusomy is defined as a mean of greater thanor equal to 3.0 for the reference probe signals (1q25, 19p13). Theslides were scored manually.LIMITATIONS:This test will not identify all rearrangements involving 1p and 19q.Rare, cryptic abnormalities may be below the resolution of the assay,or may otherwise be undetected. Specimen size, quality orrepresentativeness can affect the quality of the results. This assayhas been validated for tissues fixed with 10% neutral bufferedformalin. Decalcification agents and fixation agents containing heavymetals, e.g. B5, or harsh acid or base components (e.g. Bouin'ssolution) can adversely impact assay performance.DISCLAIMER:This test was developed and its performance characteristics determinedby the [facility] [place] ([facility]). It has not been cleared or approved bythe FDA. [facility] is regulated under CLIA as qualified to perform high-complexity testing. This test is used for clinical purposes. It shouldnot be regarded as investigational or for research.Interpretation performed at [facility], [address] [place] [address]. CLIA Number: [id number] reviewed by Abhay Lai MD, PhD Performed By: #### M GMT, IDH12G, 1P19Q, EGFRF ####[facility] LIMSCLIA [id number] [place] [address] [place]#### S ####[facility] LABCLIA [id number] [address] [place] FISH FOR EGFRon 08-14-2022 FISH FOR EGFR FISH for EGFR Normal [facility] Comment on above: Order Comment: Speci men Type: TISSUE SPECIMENOrdering Facility: [facility] Address: [address] [id number] Result Comment: Tiffany coffey Accession Number: [id number]: [id number]: [id number] Type: FFPETSample Description: BRAIN, RIGHT PARIETAL LESIONReceived Date: 08/17/2022RESULTS: EGFR AMPLIFIEDNumber of nuclei scored: 40INTERPRETATION:Positive for amplification of the EGFR gene. Clinical and pathologicalcorrelation is recommended.The following FISH results were obtained:EGFR: 18.95CEP7: 3.15EGFR/CEP7 ratio: 6.02 (Reference Range: Amplified >2.00)Aneusomy is present.COMMENT:A combination of genetic signature and histology stratifies lower-grade gliomas better than histology alone. IDH-wildtype infiltratingor diffuse astrocytomas with EGFR amplification are predicted tofollow an aggressive clinical course resembling that of IDH-wildtypeglioblastoma. Reference: Evelyn MORRIS et al. cIMPACT-NOW update 3:recommended diagnostic criteria for Diffuse astrocytic glioma, IDH-wildtype, with molecular features of glioblastoma, WHO grade IV. ActaNeuropathol. 2018 Nov;136(5):805-810.METHODOLOGY:Amplification of the Epidermal Growth Factor Receptor (EGFR) gene wasevaluated with interphase fluorescence in situ hybridization (FISH) onformalin-fixed paraffin embedded tissue sections using the LSI EGFR(7p11.2) and chromosome 7 centromere (CEP 7) probes ([employer],[place], [place]). The slides were scored manually.LIMITATIONS:This test will not identify all rearrangements involving EGFR. Rare,cryptic abnormalities may be below the resolution of the assay, or mayotherwise be undetected. Specimen size, quality or representativenesscan affect the quality of the result. This assay has been validatedfor tissues fixed with 10% neutral buffered formalin. Decalcificationagents and fixation agents containing heavy metals, e.g. B5, or harshacid or base components (e.g. Bouin's solution) can adversely impactassay performance.DISCLAIMER:This test was developed and its performance characteristics determinedby the [facility]'s [facility] [place] ([facility]). It has not been cleared or approved bythe FDA. [facility] is regulated under CLIA as qualified to perform high-complexity testing. This test is used for clinical purposes. It shouldnot be regarded as investigational or for research.Interpretation performed at [facility], [address] [place], [place] [address]. CLIA Number: [id number] reviewed by Abhay Lai MD, PhD Performed By: #### M GMT, IDH12G, 1P19Q, EGFRF ####[facility] [id number] [address] [address] [place]#### S ####[facility] LABCLIA [id number] [address] IDH1 AND IDH2 GENE ANALYSISo n 08-14-2022 IDH1 AND IDH2 GENE ANALYSIS Normal [facility] Comment on above: Order Comment: Speci men Type: TISSUE SPECIMENOrdering Facility: [facility] Address: [address] [place] [address] Result Comment: IDH1 and IDH2 Gene AnalysisLaboratory Accession Number: [id number] #: [id number] #: [id number] Type: FFPET% Tumor: 70Result:IDH1 - No variant detected [Reference sequence: ([id number])].IDH2 - No variant detected [Reference sequence: (NM_[id number])].Interpretation:No cancer-related sequence changes were identified in IDH1 codon 132,IDH2 codon 172 or other mutation hotspots within the IDH1 or PXB7evqym.IDH1 (isocitrate dehydrogenase 1 (NADP+)) is a cytosolic andperoxisomal obligate homodimer that catalyzes the oxidativedecarboxylation of isocitrate to alpha-ketoglutarate, using NADP+ as acofactor. Heterozygous mutations in IDH1 codon 132 in exon 4 convertalpha-ketoglutarate to the oncogenic metabolite (D)-2-hydroxyglutarate(2-HG). The accumulation of 2-HG is believed to induce a block incellular differentiation through epigenetic modification, contributingto tumor initiation and progression. IDH1 is mutated in elxgwrnxabnxd10-42 % of grade II and III diffuse gliomas and secondaryglioblastomas, but only about 5 % of primary glioblastomas. The T851Dcbeqtpry produces a substitution of histidine for arginine at ryyscnou808, and accounts for 80-90% of IDH1 mutations in glioma. IDH1 toyae817 mutations serve as pathologic markers of low grade gliomas andsecondary glioblastomas, and appear to be associated with favorableprognosis in grade II, III, and possibly IV gliomas. (Garrett H, Miguel Melendrez, et al. New Engl J Med 2009;360:765-773; Pebbles Curtis,Dasha S, et al. J Clin Oncol 2009;27:4150-54; Houillier C, Colon X,Sudhakar Griffith, et al. Neurology 2010;75:1560-6; Dalila Graham, Constantin Y, Si G, etal. Cancer Sci 2012;103:269-273; Paula, Juan V,et al. PLoS One 2015;10:[id number]; Kasia MS, Suad , Garrett H. Neuro-Oncol 2016;18:16-26.)IDH2 (isocitrate dehydrogenase 2 (NADP+), mitochondrial) is amitochondrial obligate homodimer that catalyzes the oxidativedecarboxylation of isocitrate to alpha-ketoglutarate, using NADP+ as acofactor. Heterozygous mutations in IDH2 codon 172 in exon 4 convertalpha-ketoglutarate to the oncogenic metabolite (D)-2-hydroxyglutarate(2-HG). The accumulation of 2-HG is believed to induce a block incellular differentiation through epigenetic modification, contributingto tumor initiation and progression. IDH2 is mutated in approximately1-5 % of grade II and III diffuse gliomas and secondary glioblastomas,and very rarely in primary glioblastomas. The R172K (c.515G>A)mutation substitutes lysine for arginine at position 172, and accountsfor approximately 60% of IDH2 mutations in gliomas. The R172M(c.515G>T) mutation substitutes methionine for arginine at opdktawb688, and represents approximately 23% of IDH2 mutations. Othermutations in codon 172 occur at lesser frequencies. IDH2 codon 172mutations serve as pathologic markers of low grade gliomas andsecondary glioblastomas, and appear to be associated with favorableprognosis in grade II, III, and possibly IV gliomas. (Garrett Pulliam, Miguel Melendrez, et al. New Engl J Med 2009;360:765-773; Pebbles Curtis,Dasha S, et al. J Clin Oncol 2009;27:4150-54; Isaiah Mclaughlin,Sudhakar Griffith, et al. Neurology 2010;75:1560-6; Dalila Graham, Constantin Ferro, Marlon G, etal. Cancer Sci 2012;103:269-273; Paula, Juan V,et al. PLoS One 2015;10:[id number]; Kasia MS, Suad BH, Garrett H. Neuro-Oncol 2016;18:16-26.)Methodology:Following extraction of tumor DNA from microdissected FFPE, FNA, andCB specimens and library construction utilizing the custom [employer] Panel v.1 ([employer], [place], [place]), DNAsequencing of gene mutation hotspot regions was performed on the [employer] ([employer], [place], [place]). [employer] software ([employer],[place], [place]) was used to analyze FASTQ files to identify hotspotmutations in requested genes.Limitations:Sequence changes outside the analyzed mutation hotspots, includingintronic, noncoding, and splicing site variants, will not beidentified in this test.Insertions and deletions larger than the 20 and 40 bp, respectively,may not be identified in this test.The lower limit of detection of this assay is approximately 5% alleleproportion. Variants below 5% allele proportion may be reported at thediscretion of the molecular pathology professional staff if thetechnical quality of the sequencing is sufficient at that location andthe call is unequivocal.Negative results from specimens for which the percentage of tumorcells is 10% or less should be interpreted with caution.A minimum coverage depth of 100 reads is required across the entireregion of interest. Any region below this minimum will not beresulted, and a list of low coverage areas will be included in thereport as applicable.Fixation in neutral buffered formalin is preferred. Decalcificationagents and fixation agents containing heavy metals (e.g., B5) or harshacid or base components (e.g. Bouin's solution) can inhibit PCRreactions.Disclaimer:This test was developed and its performance characteristics determinedby [facility]'s [facility] [place] ([facility]). It has not been cleared or approved bythe FDA. -[facility] is regulated under CLIA as certified to perform high-complexity testing. This test is used for clinical purposes. It shouldnot be regarded as investigational or for research.Testing and interpretation performed at [facility], [address] [place] [address]. CLIA Number: [id number] reviewed by Sydnee Eng, PhD, FAC Performed By: #### M GMT, IDH12G, 1P19Q, EGFRF ####[facility] LIMSCLIA [id number] [address] [place] [id number] [place]#### S ####[facility] LABCLIA [id number] [place] [id number] [place] MGMT PROMOTER METHYLATIONon 08-14-2022 MGMT METHYLATION Normal Jose stokes On License Of [facility] Comment on above: Order Comment: Speci men Type: TISSUE SPECIMENOrdering Facility: [facility] Address: [address] [id number] Result Comment: MGMT MethylationLaboratory Accession Number: [id number] #: [id number] #: [id number] Tumor: 70Result:Hypermethylated (The mean methylation of MGMT promoter region isgreater than or equal to 12%)Tissue Analyzed:right parietal lesionReference Range:<=7% Not hypermethylated8-11% Indeterminate>=12% HypermethylatedInterpretation:O6-methylguanine DNA methyltransferase, or MGMT, is a DNA repairprotein that reverses alkylation at the O6 position of guanine. Byrepairing DNA damage caused by alkylating agents, MGMT activity playsa central role in resistance of gliomas to drugs such as temozolomide.Hypermethylation of CpG sites in the MGMT promoter region and exon 1reduces gene expression and subsequent protein production, whichconfers increased sensitivity of gliomas to alkylating agents. MGMTpromoter hypermethylation is thus a favorable prognostic marker inpatients with glioblastomas or low grade gliomas who are treated withtemozolomide, and in elderly patients appears to be predictive oftemozolomide responsiveness.Methodology:Formalin-fixed, paraffin-embedded tissue (FFPE) from glioma specimensis microdissected to enrich for tumor cells. Genomic DNA is extractedand treated with sodium bisulfite to convert unmethylated cytosinesinto uracil. PCR amplification of a targeted region of exon 1 is thenperformed. Methylation of CpG sites 74-78 within nucleotides 28-52 isanalyzed by pyrosequencing of the amplicons using the Qiagen HighScore House instrument (Qiagen,Petar). The mean percentage methylation iscalculated and used to determine methylation status.References:1) Maeve Kramer, et al. Clinical Neuropathology practice guide 5-2015:MGMT methylation pyrosequencing in glioblastoma: unresolved issues andopen questions. Clin Neuropathol 2015;34:250-57.2) Maynor VT, et al. The correlation and prognostic significance of MGMTpromoter methylation and MGMT protein in glioblastomas. Jajfokfegfnj9538;65:866-75.3) Damián J, et al. Extent of MGMT promoter methylation correlates withoutcome in glioblastomas given temozolomide and radiotherapy. Br JCancer 2009;101:124-31.4) Halima Kramer, et al. Inactivation of the DNA-repair gene MGMT and theclinical response of gliomas to alkylating agents. N Engl J Hbg2302;343:1350-4.5) Joe G, et al. Temozolomide in Elderly Patients With NewlyDiagnosed Glioblastoma and Poor Performance Status: An ANOCEF Phase IITrail. J. Clin Oncol 2011;29:3050-55.6) Juan Hsuton, et al. Comparative assessment of 5 methods(Methylation-specific polymerase chain reaction, MethyLight,Pyrosequencing, Methylation-sensative high-resolution meltin, andimmunohistochemistry to analyze U7-beneeuifcymod-BMO-methyltransferasein a series of 100 glioblastoma patients. Cancer 2012;118:4201-11.7) Juan Huston, et al. Outcome-based determination of optimalpyrosequencing assay for MGMT methylation detection in glioblastomapatients. J Neurooncol 2014;116:487-96.Disclaimer:This test was developed and its performance characteristics determinedby [facility]'s [facility] Pathology [facility] LaboratoryMedicine [place] ([facility]). It has not been cleared or approved bythe FDA. [facility] is regulated under CLIA as certified to perform high-complexity testing. This test is used for clinical purposes. It shouldnot be regarded as investigational or for research.Testing and interpretation performed at [facility], [address] [place] [address]. CLIA Number: [id number] reviewed by Sandee Navarrete, PhD, [facility] Performed By: #### M GMT, IDH12G, 1P19Q, EGFRF ####[facility] LIMSCLIA [id number] [address] [place]#### S ####[facility] LABCLIA [id number] [address] [place] MRI BRAIN INTRAOP WO/W IVCON on 08-14-2022 MRI BRAIN INTRAOP WO/W IVCON Normal [facility] MRI BRAIN LOCAL WO/W IVCONon 08-14-2022 MRI BRAIN LOCAL WO/W IVCON Normal [facility] NURSING PROGon 08-14-2022 NURSING PROG Normal [facility] OPERATIVE NOon 08-14-2022 OPERATIVE NO Normal [facility] SURGICAL PATHOLOGYon 023 ADDENDUM 1: Normal [facility] Comment on above: Order Comment: Speci men Type: TISSUE SPECIMENOrdering Facility: [facility] Address: [address] [place], [place] [address] Result Comment: Base d on the FISH and IDH molecular findings, 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, IDH 1/2, 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, WHO Grade 4.RAP/rw 08/24/2022ddendum electronically signed by Lan Carlton MD on 08/24/2022 at 4:00 PM Performed By: #### M GMT, IDH12G, 1P19Q, EGFRF ####[facility] LIMSCA [id number] [place] [address] [place]#### S ####[facility] LABCLIA [id number] [place] [address] [place] CASE REPORT Normal [facility] Comment on above: Order Comment: Speci men Type: TISSUE SPECIMENOrdering Facility: [facility] Address: [address] [place] [phone] Result Comment: Surg ical Pathology Report Case: [id number] Provider: Jacklyn Mir MD Collected: 08/14/2022 10:42 AMOrdering Location: Neurosurgery Received: 08/14/2022 10:56 AMPathologist: Lan Carlton MDIntraop: YURIY Francopecimens: A) - BRAIN BIOPSY, RIGHT PARIETAL LESION B) - BRAIN RESECTION, right parietal lesion Performed By: #### M GMT, IDH12G, 1P19Q, EGFRF ####[facility] LIMSCLIA [id number] [address]#### S ####[facility] LABCLIA [id number] [address] STATES [facility] CLINICAL HISTORY Normal [facility] Comment on above: Order Comment: Speci men Type: TISSUE SPECIMENOrdering Facility: [facility] Address: [address] [place] [address] Result Comment: Pre- op diagnosis:Brain mass [G93.89] Performed By: #### M GMT, IDH12G, 1P19Q, EGFRF ####[facility]LL[facility] LIMSCLIA [id number] [address]#### S ####[facility] LABCLIA [id number] [address] DIAGNOSIS COMMENT Normal [facility] Comment on above: Order Comment: Speci men Type: TISSUE SPECIMENOrdering Facility: [facility] Address: [address] [place] [address] Result Comment: The tumor is marked by prominent cellularity, identifiable mitotic activity, vascular proliferative changes and necrosis. Immunostains were performed on block B2. The tumor did not stain with antibody to IDH-1(R132H) . ATRX staining was retained. Focally, greater than 30% of cells demonstrate p53 immunostaining. A Ki-67 index in excess of 30% is noted. Additional molecular testing including 1p/19q FISH, EGFR FISH, MGMT analysis and IDH1/2 PCR have been ordered on this case and results will be signed out separately when available.If the tumor demonstrates evidence of co-deletion on chromosomes 1p and 19q and evidence of an IDH mutation, the tumor should be considered an oligodendroglioma, WHO Grade 3. If the tumor does not show both of the aforementioned molecular findings, the tumor should be considered a high grade astrocytic neoplasm. If the tumor represents an astrocytoma and demonstrates evidence of an IDH mutation, the tumor should be considered an astrocytoma, WHO Grade 4. If the tumor is an astrocytoma and does not show evidence of and IDH mutation, the tumor should be considered a glioblastoma, WHO Grade 4.Laboratory Developed Test (LDT) Disclaimer:Performance characteristics of immunohistochemical, immunofluorescent and chromogenic in-situ hybridization tests have been determined by the performing laboratory within [facility]???[facility] [place] ([facility], [facility] or [facility]) in a manner consistent with CLIA requirements. One or more of these tests have not been cleared or approved by the FDA. [facility] is regulated under CLIA as qualified to perform high-complexity testing. These tests are used for clinical purposes. They should not be regarded as investigational or for research. Positive and negative controls stain appropriately. Performed By: #### M GMT, IDH12G, 1P19Q, EGFRF ####[facility] ILLUM[facility] LIMSCLIA [id number] [address] [place]#### S ####[facility] LABCLIA [id number] [address] STATES [facility] FINAL DIAGNOSIS Normal [facility] Comment on above: Order Comment: Speci men Type: TISSUE SPECIMENOrdering Facility: [facility] Address: [address] [place] [address] Result Comment: A-B. Right parietal lobe, excision:- Morphologically consistent with high grade glioma.RAP/barron 08/17/2022 Performed By: #### M GMT, IDH12G, 1P19Q, EGFRF ####[facility] ILLUMINA LIMSCLIA [id number] [place] [address] [place]#### S ####[facility] LABCLIA [id number] [address] STATES OF [facility] FINAL PERFORMING LAB Normal [facility] Comment on above: Order Comment: Speci men Type: TISSUE SPECIMENOrdering Facility: [facility] Address: [address] [id number] Result Comment: Diag nostic interpretation performed at [facility], [address] [place] [address] CLIA# [id number] Director: Mike Escobedo M.D. Performed By: #### M GMT, IDH12G, 1P19Q, EGFRF ####[facility] LIMSCLIA [id number] [address] [place]#### S ####[facility] LABCLIA [id number] [place] [address] [place] GROSS DESCRIPTION A. BRAIN BIOPSY Normal [facility] Comment on above: Order Comment: Speci men Type: TISSUE SPECIMENOrdering Facility: [facility] Address: [address] [place] [address] Result Comment: Rece ived fresh for frozen section intraoperative consultation, labeled right parietal lesion, brain biopsy is an unoriented, 1.1 x 0.8 x 0.4 cm portion of pink-red soft tissue. Half of the specimen is submitted in cassette FSA1. The remainder of the specimen is submitted in cassette A2.AKA August 14, 2022 11:31 AMGross examination performed at [facility], [address] [place], [place] [address]B. BRAIN RESECTIONReceived fresh, labeled right parietal lesion are multiple portions of njf-qony-bgj and red, markedly soft tissue, weighing 2.2 g, and aggregating to 3.0 x 2.3 x 0.8 cm. The specimen is entirely submitted in cassettes B1-B3.AKA August 14, 2022 1:23 PMGross examination performed at [facility], [address] [place] [address] Performed By: #### M GMT, IDH12G, 1P19Q, EGFRF ####[facility] ILLUMINA LIMSCLIA [id number] [address] [place]#### S ####[facility] LABCLIA [id number] [address] [place] INTRAOPERATIVE DIAGNOSIS A. BRAIN BIOPSY Normal [facility] Comment on above: Order Comment: Speci men Type: TISSUE SPECIMENOrdering Facility: [facility] Address: [address] [address] Result Comment: FSA1 : Right parietal lesion - high-grade glioma (Dr. Moreno).Intraoperative diagnosis performed at [facility], [facility] [address] CLIA# [id number] Performed By: #### M GMT, IDH12G, 1P19Q, EGFRF ####[facility] ILLUMINA LIMSCLIA [id number] [address] [place]#### S ####[facility] LABCLIA [id number] [address] [place] HISTORY PHYSICALon HISTORY PHYSICAL Normal [facility] Renal function 2000 panelon 08-13-2022 Albumin [Mass/Vol] 3.9 g/dL Normal 3.9-4.9 [facility] Comment on above: Order Comment: Speci men Type: BLOOD SPECIMENOrdering Facility: [facility] Address: [address] [place] [address] Performed By: #### 2 4362-6 ####[facility] LABCLIA [id number] [place] [address] [place] Anion gap [Moles/Vol] 10 mmol/L Normal 9-18 [facility] Comment on above: Order Comment: Speci men Type: BLOOD SPECIMENOrdering Facility: [facility] Address: [address] [place] [address] Performed By: #### 2 4362-6 ####[facility] LABCLIA [id number] [place] [address] [place] Calcium [Mass/Vol] 9.3 mg/dL Normal 8.5-10.2 [facility] Comment on above: Order Comment: Speci men Type: BLOOD SPECIMENOrdering Facility: [facility] Address: [address] Performed By: #### 2 4362-6 ####[facility] LABCLIA [id number] [place] [address] [place] Chloride [Moles/Vol] 102 mmol/L Normal 97-105 [facility] Comment on above: Order Comment: Speci men Type: BLOOD SPECIMENOrdering Facility: [facility] Address: [address] [address] Performed By: #### 2 4362-6 ####[facility] LABCLIA [id number] [place] [address] [place] CO2 [Moles/Vol] 27 mmol/L Normal 22-30 [facility] Comment on above: Order Comment: Speci men Type: BLOOD SPECIMENOrdering Facility: [facility] Address: [address] Performed By: #### 2 4362-6 ####[facility] LABCLIA [id number] [place] [address] [place] Creatinine [Mass/Vol] 0.78 mg/dL Normal 0.58-0.96 [facility] Comment on above: Order Comment: Speci men Type: BLOOD SPECIMENOrdering Facility: [facility] Address: [address] Performed By: #### 2 4362-6 ####[facility] LABCLIA [id number] [place] [address] [place] ESTIMATED GLOMERULAR FILTRATION RATE 77 mL/min/1.73m??? Normal >=60 [facility] Comment on above: Order Comment: Speci men Type: BLOOD SPECIMENOrdering Facility: [facility] Address: [address] Result Comment: [place] mated Glomerular Filtration Rate (eGFR) is calculated using the 2020 CKD-EPI creatinine equation. This equation utilizes serum creatinine, sex, and age as parameters. The creatinine assay has traceable calibration to isotope dilution-mass spectrometry. Refer to KDIGO guidelines for clinical interpretation. In patients with unstable renal function, e.g. those with acute kidney injury, the eGFR may not accurately reflect actual GFR. Performed By: #### 2 4362-6 ####[facility] LABCLIA [id number] [place] [address] [place] Glucose [Mass/Vol] 132 mg/dL High 74-99 [facility] Comment on above: Order Comment: Kurt barraza Type: BLOOD SPECIMENOrdering Facility: [facility] Address: [address] [address] Result Comment: The [place] Diabetes Association (ADA) provides guidance for cutoff values for fasting glucose and random glucose. The ADA defines fasting as no caloric intake for at least 8 hours. Fasting plasma glucose results between 100 to 125 mg/dL indicate increased risk for diabetes (prediabetes).Fasting plasma glucose results greater than or equal to 126 mg/dL meet the criteria for diagnosis of diabetes. In the absence of unequivocal hyperglycemia, results should be confirmed by repeat testing. In a patient with classic symptoms of hyperglycemia or hyperglycemic crisis, random plasma glucose results greater than or equal to 200 mg/dL meet the criteria for diagnosis of diabetes.Reference: Standards of Medical Care in Diabetes 2016, [place] Diabetes Association. Diabetes Care. 2016.39(Suppl 1). Performed By: #### 2 4362-6 ####[facility] LABCLIA [id number] [place] [address] [place] Phosphate [Mass/Vol] 3.3 mg/dL Normal 2.7-4.8 [facility] Comment on above: Order Comment: Kurt barraza Type: BLOOD SPECIMENOrdering Facility: [facility] Address: [address] [id number] Performed By: #### 2 4362-6 ####[facility] LABCLIA [id number] [place] [address] [place] Potassium [Moles/Vol] 4.5 mmol/L Normal 3.7-5.1 [facility] Comment on above: Order Comment: Speci men Type: BLOOD SPECIMENOrdering Facility: [facility] Address: [address] [place] [address] Performed By: #### 2 4362-6 ####[facility] LABCLIA [id number] [place] [address] [place] Sodium [Moles/Vol] 139 mmol/L Normal 136-144 [facility] Comment on above: Order Comment: Speci men Type: BLOOD SPECIMENOrdering Facility: [facility] Address: [address] [place] [address] Performed By: #### 2 4362-6 ####[facility] LABIA [id number] [place] [address] [place] Urea nitrogen [Mass/Vol] 24 mg/dL High 7-21 [facility] Comment on above: Order Comment: Speci men Type: BLOOD SPECIMENOrdering Facility: [facility] Address: [address] [place] [address] Performed By: #### 2 4362-6 ####[facility] LABIA [id number] [place] [address] [place] SARS-CoV-2 RNA Resp Ql JOAN+p robeon 08-13-2022 SARS-CoV-2 (COVID-19) RNA JOAN+probe Ql (Resp) COVID 19 RESULT: SARS-CoV-2 (Agent of COVID-19) Not Detected by RT-PCR or equivalent method. This test has been authorized by FDA under an Emergency Use Authorization (EUA). Normal [facility] Comment on above: Performed By: #### 9 4500-6 ####[facility] LABCLIA [id number] [place] [address] [place] CASE MANAGEMon 08-10-2022 CASE MANAGEM Normal [facility] CNDSon 08-10-2022 CNDS Normal [facility] CNPNon 08-10-2022 CNPN Normal [facility] TYPE AND SCREEN,30 DAYon ABO A Normal [facility] Comment on above: Order Comment: Speci men Type: BLOOD SPECIMENOrdering Facility: [facility] Address: [address] [place] [address] Performed By: #### T SCR30 ####CC [facility] BLOOD BANKCLIA [id number] [address] [place] HISTORICAL AB SCR STATUS Negative Normal [facility] Comment on above: Order Comment: Speci men Type: BLOOD SPECIMENOrdering Facility: [facility] Address: [address] [place] [address] Performed By: #### T SCR30 ####CC MA[facility] BLOOD BANKCLIA [id number] [address] [place] Rh Nom (Bld) Positive Normal [facility] Comment on above: Order Comment: Speci men Type: BLOOD SPECIMENOrdering Facility: [facility] Address: [address] [place] [address] Performed By: #### T SCR30 ####CC MA[facility] BLOOD BANKCLIA [id number] [place] [address] [place] ALLIED HEALTHon 08-09-2022 ALLIED HEALTH Normal [facility] CONSULT PROGon 08-09-2022 CONSULT PROG Normal [facility] MRI BRAIN LOCAL WO/W IVCONon 08-09-2022 MRI BRAIN LOCAL WO/W IVCON Normal [facility] NURSING PROGon 08-09-2022 NURSING PROG Normal [facility] THERAPY NTon 08-09-2022 THERAPY NT Normal [facility] THERAPY NT Normal [facility] ABO AND RH ONLYon 08-08-2022 ABO A Normal [facility] Comment on above: Order Comment: Speci men Type: BLOOD SPECIMENOrdering Facility: [facility] Address: [address] [address] Performed By: #### A BORH ####CC [facility] BLOOD BANKCLIA [id number] [place] [address] [place] Rh Nom (Bld) Positive Normal [facility] Comment on above: Order Comment: Speci men Type: BLOOD SPECIMENOrdering Facility: [facility] Address: [address] [address] Performed By: #### A YAMEL ####[facility] BLOOD BANKIA [id number] [place] [address] [place] CASE MGT INIT ASSESon 2022 CASE MGT INIT ASSES Normal [facility] CBC W Auto Differential pane l (Bld)on 08-08-2022 Basophils (Bld) [#/Vol] 0.05 10*3/uL Normal <0.11 [facility] Comment on above: Order Comment: Speci men Type: BLOOD SPECIMENOrdering Facility: [facility] Address: [address] [place], [place] [address] Performed By: #### 5 7021-8 ####[facility] LABCLIA [id number] [address] [place] Basophils/100 WBC (Bld) 0.8 % Normal C [facility] Comment on above: Order Comment: Speci men Type: BLOOD SPECIMENOrdering Facility: [facility] Address: [address] [place], [place] [address] Performed By: #### 5 7021-8 ####[facility] LABCLIA [id number] [place] [address] [place] Differential cell count method Nom (Bld) Auto Normal [facility] Comment on above: Order Comment: Speci men Type: BLOOD SPECIMENOrdering Facility: [facility] Address: [address] [place], [place] [address] Performed By: #### 5 7021-8 ####[facility] LABCLIA [id number] [place] [address] [place] Eosinophils (Bld) [#/Vol] 0.09 10*3/uL Normal <0.46 [facility] Comment on above: Order Comment: Speci men Type: BLOOD SPECIMENOrdering Facility: [facility] Address: [address] [place] [address] Performed By: #### 5 7021-8 ####[facility] LABCLIA [id number] [place] [address] [place] Eosinophils/100 WBC (Bld) 1.4 % Normal [facility] Comment on above: Order Comment: Speci men Type: BLOOD SPECIMENOrdering Facility: [facility] Address: [address] [place] [address] Performed By: #### 5 7021-8 ####[facility] LABCLIA [id number] [address] [place] Erythrocyte distribution width (RBC) [Ratio] 12.6 % Normal 11.5-15.0 [facility] Comment on above: Order Comment: Speci men Type: BLOOD SPECIMENOrdering Facility: [facility] Address: [address] [place], [place] [address] Performed By: #### 5 7021-8 ####[facility] LABCLIA [id number] [place] [address] [place] Hematocrit (Bld) [Volume fraction] 36.4 % Normal 36.0-46.0 [facility] Comment on above: Order Comment: Speci men Type: BLOOD SPECIMENOrdering Facility: [facility] Address: [address] [place], [place] [address] Performed By: #### 5 7021-8 ####[facility] LABCLIA [id number] [place] [address] [place] Hemoglobin (Bld) [Mass/Vol] 12.7 g/dL Normal 11.5-15.5 [facility] Comment on above: Order Comment: Speci men Type: BLOOD SPECIMENOrdering Facility: [facility] Address: [address] [address] Performed By: #### 5 7021-8 ####[facility] LABCLIA [id number] [place] [address] [place] Immature granulocytes (Bld) [#/Vol] 10*3/uL Normal <0.10 [facility] Comment on above: Order Comment: Speci men Type: BLOOD SPECIMENOrdering Facility: [facility] Address: [address] Performed By: #### 5 7021-8 ####[facility] LABCLIA [id number] [place] [address] [place] Immature granulocytes/100 WBC (Bld) 0.2 % Normal [facility] Comment on above: Order Comment: Speci men Type: BLOOD SPECIMENOrdering Facility: [facility] Address: [address] Performed By: #### 5 7021-8 ####[facility] LABCLIA [id number] [place] [address] [place] Lymphocytes (Bld) [#/Vol] 1.69 10*3/uL Normal 1.00-4.00 [facility] Comment on above: Order Comment: Speci men Type: BLOOD SPECIMENOrdering Facility: [facility] Address: [address] Performed By: #### 5 7021-8 ####[facility] LABCLIA [id number] [place] [address] [place] Lymphocytes/100 WBC (Bld) 26.2 % Normal [facility] Comment on above: Order Comment: Speci men Type: BLOOD SPECIMENOrdering Facility: [facility] Address: [address] Performed By: #### 5 7021-8 ####[facility] LABCLIA [id number] [place] [address] [place] MCH (RBC) [Entitic mass] 30.2 pg Normal 26.0-34.0 [facility] Comment on above: Order Comment: Speci men Type: BLOOD SPECIMENOrdering Facility: [facility] Address: [address] [place] [address] Performed By: #### 5 7021-8 ####[facility] [id number] [address] STATES OF [facility] MCHC (RBC) [Mass/Vol] 34.9 g/dL Normal 30.5-36.0 [facility] Comment on above: Order Comment: Speci men Type: BLOOD SPECIMENOrdering Facility: [facility] Address: [address] [place] [address] Performed By: #### 5 7021-8 ####[facility] [id number] [address] [place] MCV (RBC) [Entitic vol] 86.5 fL Normal 80.0-100.0 [facility] Comment on above: Order Comment: Speci men Type: BLOOD SPECIMENOrdering Facility: [facility] Address: [address] [place], [place] [address] Performed By: #### 5 7021-8 ####[facility] [id number] [place] [address] [place] Monocytes (Bld) [#/Vol] 0.72 10*3/uL Normal <0.87 [facility] Comment on above: Order Comment: Speci men Type: BLOOD SPECIMENOrdering Facility: [facility] Address: [address] [place], [place] [address] Performed By: #### 5 7021-8 ####[facility] [id number] [address] OF [facility] Monocytes/100 WBC (Bld) 11.2 % Normal C [facility] Comment on above: Order Comment: Speci men Type: BLOOD SPECIMENOrdering Facility: [facility] Address: [address] Performed By: #### 5 7021-8 ####[facility] LABCLIA [id number] [place] [address] [place] Neutrophils (Bld) [#/Vol] 3.89 10*3/uL Normal 1.45-7.50 [facility] Comment on above: Order Comment: Speci men Type: BLOOD SPECIMENOrdering Facility: [facility] Address: [address] [place], [place] [address] Performed By: #### 5 7021-8 ####[facility] LABCLIA [id number] [place] [address] [place] Neutrophils/100 WBC (Bld) 60.2 % Normal [facility] Comment on above: Order Comment: Speci men Type: BLOOD SPECIMENOrdering Facility: [facility] Address: [address] [place], [place] [address] Performed By: #### 5 7021-8 ####[facility] LABCLIA [id number] [place] [address] [place] Nucleated RBC (Bld) [#/Vol] 10*3/uL Normal <0.01 [facility] Comment on above: Order Comment: Speci men Type: BLOOD SPECIMENOrdering Facility: [facility] Address: [address] Performed By: #### 5 7021-8 ####[facility] LABCLIA [id number] [place] [address] [place] Nucleated RBC/100 WBC (Bld) [Ratio] 0.0 /100 WBC Normal [facility] Comment on above: Order Comment: Speci men Type: BLOOD SPECIMENOrdering Facility: [facility] Address: [address] [place], [place] [address] Performed By: #### 5 7021-8 ####[facility] LABCLIA [id number] [place] [address] [place] Platelet mean volume (Bld) [Entitic vol] 10.5 fL Normal 9.0-12.7 [facility] Comment on above: Order Comment: Speci men Type: BLOOD SPECIMENOrdering Facility: [facility] Address: [address] [place] [address] Performed By: #### 5 7021-8 ####[facility] LABIA [id number] [place] [address] [place] Platelets (Bld) [#/Vol] 223 10*3/uL Normal 150-400 [facility] Comment on above: Order Comment: Speci men Type: BLOOD SPECIMENOrdering Facility: [facility] Address: [address] [place], [place] [address] Performed By: #### 5 7021-8 ####[facility] LABIA [id number] [place] [address] [place] RBC (Bld) [#/Vol] 4.21 10*6/uL Normal 3.90-5.20 [facility] Comment on above: Order Comment: Speci men Type: BLOOD SPECIMENOrdering Facility: [facility] Address: [address] [place] [id number] Performed By: #### 5 7021-8 ####[facility] LABIA [id number] [place] [address] [place] WBC (Bld) [#/Vol] 6.45 10*3/uL Normal 3.70-11.00 [facility] Comment on above: Order Comment: Speci men Type: BLOOD SPECIMENOrdering Facility: [facility] Address: [address] [place] [address] Performed By: #### 5 7021-8 ####[facility] LABCLIA [id number] [place] [address] [place] Basophils (Bld) [#/Vol] 0.09 10*3/uL Normal <0.11 [facility] Comment on above: Order Comment: Speci men Type: BLOOD SPECIMENOrdering Facility: [facility] Address: [address] [place] [address] Performed By: #### 5 7021-8 ####[facility] LABCLIA [id number] [place] [address] [place] Basophils/100 WBC (Bld) 1.3 % Normal [facility] Comment on above: Order Comment: Speci men Type: BLOOD SPECIMENOrdering Facility: [facility] Address: [address] [place] [address] Performed By: #### 5 7021-8 ####[facility] LABCLIA [id number] [place] [address] [place] Eosinophils (Bld) [#/Vol] 0.17 10*3/uL Normal <0.46 [facility] Comment on above: Order Comment: Speci men Type: BLOOD SPECIMENOrdering Facility: [facility] Address: [address] [place] [address] Performed By: #### 5 7021-8 ####[facility] LABCLIA [id number] [address] [place] Eosinophils/100 WBC (Bld) 2.4 % Normal [facility] Comment on above: Order Comment: Speci men Type: BLOOD SPECIMENOrdering Facility: [facility] Address: [address] [place] [address] Performed By: #### 5 7021-8 ####[facility] LABCLIA [id number] [place] [address] [place] Erythrocyte distribution width (RBC) [Ratio] 12.5 % Normal 11.5-15.0 [facility] Comment on above: Order Comment: Speci men Type: BLOOD SPECIMENOrdering Facility: [facility] Address: [address] Performed By: #### 5 7021-8 ####[facility] LABIA [id number] [address] [place] Hematocrit (Bld) [Volume fraction] 43.3 % Normal 36.0-46.0 [facility] Comment on above: Order Comment: Speci men Type: BLOOD SPECIMENOrdering Facility: [facility] Address: [address] Performed By: #### 5 7021-8 ####[facility] LABIA [id number] [place] [address] [place] Hemoglobin (Bld) [Mass/Vol] 15.1 g/dL Normal 11.5-15.5 [facility] Comment on above: Order Comment: Speci men Type: BLOOD SPECIMENOrdering Facility: [facility] Address: [address] Performed By: #### 5 7021-8 ####[facility] LABIA [id number] [place] [address] [place] Immature granulocytes (Bld) [#/Vol] 0.09 10*3/uL Normal <0.10 [facility] Comment on above: Order Comment: Speci men Type: BLOOD SPECIMENOrdering Facility: [facility] Address: [address] Performed By: #### 5 7021-8 ####[facility] LABIA [id number] [address] [place] Immature granulocytes/100 WBC (Bld) 1.3 % Normal [facility] Comment on above: Order Comment: Speci men Type: BLOOD SPECIMENOrdering Facility: [facility] Address: [address] Performed By: #### 5 7021-8 ####[facility] LABCLIA [id number] [place] [address] [place] Lymphocytes (Bld) [#/Vol] 1.61 10*3/uL Normal 1.00-4.00 [facility] Comment on above: Order Comment: Speci men Type: BLOOD SPECIMENOrdering Facility: [facility] Address: [address] [place] [address] Performed By: #### 5 7021-8 ####[facility] LABIA [id number] [address] [place] Lymphocytes/100 WBC (Bld) 22.8 % Normal [facility] Comment on above: Order Comment: Speci men Type: BLOOD SPECIMENOrdering Facility: [facility] Address: [address] [place] [address] Performed By: #### 5 7021-8 ####[facility] LABIA [id number] [address] [place] MCH (RBC) [Entitic mass] 29.7 pg Normal 26.0-34.0 [facility] Comment on above: Order Comment: Speci men Type: BLOOD SPECIMENOrdering Facility: [facility] Address: [address] [place] [address] Performed By: #### 5 7021-8 ####[facility] LABIA [id number] [place] [address] [place] MCHC (RBC) [Mass/Vol] 34.9 g/dL Normal 30.5-36.0 [facility] Comment on above: Order Comment: Speci men Type: BLOOD SPECIMENOrdering Facility: [facility] Address: [address] [place] [address] Performed By: #### 5 7021-8 ####[facility] LABIA [id number] [address] [place] MCV (RBC) [Entitic vol] 85.2 fL Normal 80.0-100.0 C [facility] Comment on above: Order Comment: Speci men Type: BLOOD SPECIMENOrdering Facility: [facility] Address: [address] Performed By: #### 5 7021-8 ####[facility] LABCLIA [id number] [place] [address] [place] Monocytes (Bld) [#/Vol] 0.68 10*3/uL Normal <0.87 [facility] Comment on above: Order Comment: Speci men Type: BLOOD SPECIMENOrdering Facility: [facility] Address: [address] [place], [place] [address] Performed By: #### 5 7021-8 ####[facility] LABCLIA [id number] [place] [address] [place] Monocytes/100 WBC (Bld) 9.6 % Normal C [facility] Comment on above: Order Comment: Speci men Type: BLOOD SPECIMENOrdering Facility: [facility] Address: [address] [place], [place] [address] Performed By: #### 5 7021-8 ####[facility] LABCLIA [id number] [place] [address] [place] Neutrophils (Bld) [#/Vol] 4.43 10*3/uL Normal 1.45-7.50 [facility] Comment on above: Order Comment: Speci men Type: BLOOD SPECIMENOrdering Facility: [facility] Address: [address] Performed By: #### 5 7021-8 ####[facility] LABCLIA [id number] [place] [address] [place] Neutrophils/100 WBC (Bld) 62.6 % Normal [facility] Comment on above: Order Comment: Speci men Type: BLOOD SPECIMENOrdering Facility: [facility] Address: [address] Performed By: #### 5 7021-8 ####[facility] LABIA [id number] [place] [address] [place] Platelet mean volume (Bld) [Entitic vol] Normal [facility] Comment on above: Order Comment: Speci men Type: BLOOD SPECIMENOrdering Facility: [facility] Address: [address] [place] [address] Result Comment: Unab le to report Performed By: #### 5 7021-8 ####[facility] LABIA [id number] [place] [address] [place] Platelets (Bld) [#/Vol] Normal C [facility] Comment on above: Order Comment: Speci men Type: BLOOD SPECIMENOrdering Facility: [facility] Address: [address] [place] [address] Result Comment: Plat elets clumped, estimate low. Platelet count confirmed by manual review of peripheral blood smear. Sample checked for clot. Result rechecked. Performed By: #### 5 7021-8 ####[facility] LABIA [id number] [place] [address] [place] RBC (Bld) [#/Vol] 5.08 10*6/uL Normal 3.90-5.20 [facility] Comment on above: Order Comment: Speci men Type: BLOOD SPECIMENOrdering Facility: [facility] Address: [address] [place], [place] [address] Performed By: #### 5 7021-8 ####[facility] [id number] [place] [address] [place] WBC (Bld) [#/Vol] 7.07 10*3/uL Normal 3.70-11.00 [facility] Comment on above: Order Comment: Speci men Type: BLOOD SPECIMENOrdering Facility: [facility] Address: [address] [place], [place] [address] Performed By: #### 5 7021-8 ####[facility] LABCLIA [id number] [place] [address] [place] CONSULTon 08-08-2022 CONSULT Normal [facility] CT BRAIN WO IVCONon 08-08-19 CT BRAIN WO IVCON Normal [facility] Comprehensive metabolic 2000 panelon 08-08-2022 Albumin [Mass/Vol] 4.8 g/dL Normal 3.9-4.9 [facility] Comment on above: Order Comment: Speci men Type: BLOOD SPECIMENOrdering Facility: [facility] Address: [address] Performed By: #### 2 777-1, , ####[facility] LABCLIA [id number] [place] [address] [place] ALP [Catalytic activity/Vol] 57 U/L Normal 34-123 [facility] Comment on above: Order Comment: Speci men Type: BLOOD SPECIMENOrdering Facility: [facility] Address: [address] [place] [address] Performed By: #### 2 777-1, , ####[facility] LABIA [id number] [place] [address] [place] ALT [Catalytic activity/Vol] 10 U/L Normal 7-38 [facility] Comment on above: Order Comment: Speci men Type: BLOOD SPECIMENOrdering Facility: [facility] Address: [address] [place] [place] [id number] Performed By: #### 2 777-1, , ####[facility] LABIA [id number] [place] [address] [place] Anion gap [Moles/Vol] 13 mmol/L Normal 9-18 [facility] Comment on above: Order Comment: Speci men Type: BLOOD SPECIMENOrdering Facility: [facility] Address: [address] Performed By: #### 2 777-1, 13640-9, ####[facility] LABCLIA [id number] [place] [address] [place] AST [Catalytic activity/Vol] 15 U/L Normal 13-35 [facility] Comment on above: Order Comment: Speci men Type: BLOOD SPECIMENOrdering Facility: [facility] Address: [address] [place] [address] Performed By: #### 2 777-1, 03722-0, ####[facility] LABCLIA [id number] [place] [address] [place] Bilirubin [Mass/Vol] 0.4 mg/dL Normal 0.2-1.3 [facility] Comment on above: Order Comment: Speci men Type: BLOOD SPECIMENOrdering Facility: [facility] Address: [address] [place] [address] Performed By: #### 2 777-1, 87530-2, ####[facility] LABIA [id number] [place] [address] [place] Calcium [Mass/Vol] 10.1 mg/dL Normal 8.5-10.2 [facility] Comment on above: Order Comment: Speci men Type: BLOOD SPECIMENOrdering Facility: [facility] Address: [address] [place], [place] [address] Performed By: #### 2 777-1, 76122-5, ####[facility] LABIA [id number] [place] [address] [place] Chloride [Moles/Vol] 102 mmol/L Normal 97-105 [facility] Comment on above: Order Comment: Speci men Type: BLOOD SPECIMENOrdering Facility: [facility] Address: [address] [place], [place] [address] Performed By: #### 2 777-1, 43793-9, ####[facility] LABCLIA [id number] [place] [address] [place] CO2 [Moles/Vol] 26 mmol/L Normal 22-30 [facility] Comment on above: Order Comment: Speci men Type: BLOOD SPECIMENOrdering Facility: [facility] Address: [address] [place] [address] Performed By: #### 2 777-1, 08654-4, ####[facility] LABIA [id number] [place] [address] [place] Creatinine [Mass/Vol] 0.71 mg/dL Normal 0.58-0.96 [facility] Comment on above: Order Comment: Speci men Type: BLOOD SPECIMENOrdering Facility: [facility] Address: [address] [place] [address] Performed By: #### 2 777-1, , ####[facility] LABIA [id number] [place] [address] [place] ESTIMATED GLOMERULAR FILTRATION RATE 87 mL/min/1.73m??? Normal >=60 [facility] Comment on above: Order Comment: Speci men Type: BLOOD SPECIMENOrdering Facility: [facility] Address: [address] [place] [address] Result Comment: [place] mated Glomerular Filtration Rate (eGFR) is calculated using the 2020 CKD-EPI creatinine equation. This equation utilizes serum creatinine, sex, and age as parameters. The creatinine assay has traceable calibration to isotope dilution-mass spectrometry. Refer to KDIGO guidelines for clinical interpretation. In patients with unstable renal function, e.g. those with acute kidney injury, the eGFR may not accurately reflect actual GFR. Performed By: #### 2 777-1, 33403-9, 18354-0 ####[facility] LABCLIA [id number] [place] [address] [place] Glucose [Mass/Vol] 94 mg/dL Normal 74-99 [facility] Comment on above: Order Comment: Speci men Type: BLOOD SPECIMENOrdering Facility: [facility] Address: [address] [place] [address] Result Comment: The [place] [employer] (ADA) provides guidance for cutoff values for fasting glucose and random glucose. The ADA defines fasting as no caloric intake for at least 8 hours. Fasting plasma glucose results between 100 to 125 mg/dL indicate increased risk for diabetes (prediabetes).Fasting plasma glucose results greater than or equal to 126 mg/dL meet the criteria for diagnosis of diabetes. In the absence of unequivocal hyperglycemia, results should be confirmed by repeat testing. In a patient with classic symptoms of hyperglycemia or hyperglycemic crisis, random plasma glucose results greater than or equal to 200 mg/dL meet the criteria for diagnosis of diabetes.Reference: Standards of Medical Care in Diabetes 2016, [place] [employer]. Diabetes Care. 2016.39(Suppl 1). Performed By: #### 2 777-1, 42936-3, ####[facility] LABIA [id number] [place] [address] [place] Potassium [Moles/Vol] 3.4 mmol/L Low 3.7-5.1 [facility] Comment on above: Order Comment: Speci men Type: BLOOD SPECIMENOrdering Facility: [facility] Address: [address] [place], [place] [address] Performed By: #### 2 777-1, 93701-8, ####[facility] LABIA [id number] [address] [address] [place] Protein [Mass/Vol] 7.2 g/dL Normal 6.3-8.0 [facility] Comment on above: Order Comment: Speci men Type: BLOOD SPECIMENOrdering Facility: [facility] Address: [address] [place], [place] [address] Performed By: #### 2 777-1, , ####[facility] LABIA [id number] [place] [address] [place] Sodium [Moles/Vol] 141 mmol/L Normal 136-144 [facility] Comment on above: Order Comment: Speci men Type: BLOOD SPECIMENOrdering Facility: [facility] Address: [address] [place] [address] Performed By: #### 2 777-1, 94238-4, ####[facility] LABIA [id number] [place] [address] [place] Urea nitrogen [Mass/Vol] 23 mg/dL High 7-21 [facility] Comment on above: Order Comment: Speci men Type: BLOOD SPECIMENOrdering Facility: [facility] Address: [address] [place] [address] Performed By: #### 2 777-1, 31799-2, ####[facility] LABIA [id number] [place] [address] [place] ED NOTEon 08-08-2022 ED NOTE Normal [facility] ED NOTE HNO ID: [id number] Author: Maricarmen Thomas RN Service: Emergency Medicine Author Type: Registered Nurse Type: ED Notes Filed: 08/08/2022 2:16 AM Note Text: Con ABO reorder per Blood Bank request Normal [facility] ED PROV NOTEon 08-08-2022 ED PROV NOTE Normal [facility] Magnesium SerPl-mCncon 08-08 Magnesium [Mass/Vol] 1.9 mg/dL Normal 1.7-2.3 [facility] Comment on above: Order Comment: Speci men Type: BLOOD SPECIMENOrdering Facility: [facility] Address: [address] [place] [address] Performed By: #### 1 9123-9 ####[facility] LABIA [id number] [place] [address] [place] Magnesium [Mass/Vol] 2.1 mg/dL Normal 1.7-2.3 [facility] Comment on above: Order Comment: Kurt barraza Type: BLOOD SPECIMENOrdering Facility: [facility] Address: [address] [place], [place] [address] Performed By: #### 2 777-1, 92817-8, 72934-8 ####[facility] LABCLIA [id number] [place] [address] [place] PT panel Coag (PPP)on 2022 INR Coag (PPP) [Relative time] 1.0 {INR} Normal 0.9-1.3 [facility] Comment on above: Order Comment: Kurt barraza Type: BLOOD SPECIMENOrdering Facility: [facility] Address: [address] [place] [address] Result Comment: Milana min K Antagonist (VKA) Therapeutic Range: INR 2 to 3 (Target INR of 2.5)Note: For patients treated with VKA drugs, such as warfarin, the [place] [employer] 2012 Guideline recommends a therapeutic INR range of 2 to 3 (target INR of 2.5). This recommendation includes high-risk patients with antiphospholipid syndrome with previous arterial or venous thromboembolism, current-generation mechanical or bioprosthetic aortic heart valve replacement.Note: Patients with mechanical aortic valve replacement and additional risk factors for thromboembolic events (atrial fibrillation, previous thromboembolism, LV dysfunction, hypercoagulable conditions) or an older generation mechanical AVR (i.e., ball in-Cage) or any mechanical MVR should have a INR therapeutic range of 2.5 to 3.5 (target INR of 3).Funmilayo GH, et al. Chest 2012, 141:7S-47SNishimcande RA, et al. JACC 2017, 70: 252-289 Performed By: #### 3 4528-0, 90554-6 ####[facility] LABCLIA [id number] [place] [address] [place] PT Coag (PPP) [Time] 10.8 s Normal 9.7-13.0 [facility] Comment on above: Order Comment: Speci men Type: BLOOD SPECIMENOrdering Facility: [facility] Address: [address] [address] Performed By: #### 3 4528-0, 65329-9 ####[facility] LABCLIA [id number] [place] [address] [place] Phosphate SerPl-mCncon 08-08 Phosphate [Mass/Vol] 3.6 mg/dL Normal 2.7-4.8 [facility] Comment on above: Order Comment: Speci men Type: BLOOD SPECIMENOrdering Facility: [facility] Address: [address] [place] [address] Performed By: #### 2 777-1, 16626-0, 17383-0 ####[facility] LABCLIA [id number] [address] [place] SARS-CoV-2 RNA Resp Ql JOAN+p robeon 08-08-2022 SARS-CoV-2 (COVID-19) RNA JOAN+probe Ql (Resp) COVID 19 RESULT: SARS-CoV-2 (Agent of COVID-19) Not Detected by RT-PCR or equivalent method. This test has been authorized by FDA under an Emergency Use Authorization (EUA). Normal [facility] Comment on above: Performed By: #### 9 4500-6 ####[facility] LABCLIA [id number] [place] [address] [place] STAPH AUREUS PCRon 3 S. aureus and MRSA panel JOAN+probe (Nose) Normal Negative [facility] Comment on above: Order Comment: Speci men Type: SWAB OF INTERNAL NOSEOrdering Facility: [facility] Address: [address] [address] Result Comment: Nega tive for Staphylococcus aureus by PCR.Negative for MRSA by PCR Performed By: #### S APCR ####[facility] LABCLIA [id number] [address] [place] TOX SCREEN ROUT URon -17-2 023 Amphetamines Confirm (U) [Mass/Vol] Negative Normal Negative [facility] Comment on above: Order Comment: Speci men Type: URINE SPECIMENOrdering Facility: [facility] Address: [address] [place] [address] Result Comment: Cuto ff threshold at 1000 ng/mL. Performed By: #### U TOX2 ####[facility] LABCLIA [id number] [place] [address] [place] BARBITURATES, URINE Negative Normal Negative [facility] Comment on above: Order Comment: Speci men Type: URINE SPECIMENOrdering Facility: [facility] Address: [address] [place] [address] Result Comment: Cuto ff threshold at 200 ng/mL. Performed By: #### U TOX2 ####[facility] LABIA [id number] [place] [address] [place] BENZODIAZEPINES, UR Negative Normal Negative [facility] Comment on above: Order Comment: Speci men Type: URINE SPECIMENOrdering Facility: [facility] Address: [address] [place] [address] Result Comment: Cuto ff threshold at 200 ng/mL. Performed By: #### U TOX2 ####[facility] LABIA [id number] [place] [address] [place] CANNABINOIDS,URINE Negative Normal Negative [facility] Comment on above: Order Comment: Speci men Type: URINE SPECIMENOrdering Facility: [facility] Address: [address] [place] [address] Result Comment: Cuto ff threshold at 50 ng/mL. Performed By: #### U TOX2 ####[facility] LABCLIA [id number] [place] [address] [place] Cocaine Ql (U) Negative Normal Negative [facility] Comment on above: Order Comment: Speci men Type: URINE SPECIMENOrdering Facility: [facility] Address: [address] [address] Result Comment: Cuto ff threshold at 300 ng/mL. Performed By: #### U TOX2 ####[facility] LABCLIA [id number] [place] [address] [place] Ethanol (U) [Mass/Vol] <11 Normal <11 [facility] Comment on above: Order Comment: Speci men Type: URINE SPECIMENOrdering Facility: [facility] Address: [address] [place] [address] Performed By: #### U TOX2 ####[facility] LABIA [id number] [address] [place] Opiates Screen Ql (U) Negative Normal Negative [facility] Comment on above: Order Comment: Speci men Type: URINE SPECIMENOrdering Facility: [facility] Address: [address] [place] [address] Result Comment: Cuto ff threshold at 300 ng/mL. Performed By: #### U TOX2 ####[facility] LABIA [id number] [address] [place] oxyCODONE cutoff Screen (U) [Mass/Vol] Negative Normal Negative [facility] Comment on above: Order Comment: Speci men Type: URINE SPECIMENOrdering Facility: [facility] Address: [address] [address] Result Comment: Cuto ff threshold at 100 ng/mL. Performed By: #### U TOX2 ####[facility] LABIA [id number] [address] [place] Phencyclidine Ql (U) Negative Normal Negative [facility] Comment on above: Order Comment: Speci men Type: URINE SPECIMENOrdering Facility: [facility] Address: [address] [address] Result Comment: Cuto ff threshold at 25 ng/mL. Performed By: #### U TOX2 ####[facility] LABCLIA [id number] [place] [address] [place] TYPE + SCREENon 08-08-2022 ABO A Normal [facility] Comment on above: Order Comment: Speci men Type: BLOOD SPECIMENOrdering Facility: [facility] Address: [address] [place] [address] Performed By: #### T SCR ####[facility] BLOOD BANKCLIA [id number] [place] [address] [place] HISTORICAL AB SCR STATUS Negative Normal [facility] Comment on above: Order Comment: Speci men Type: BLOOD SPECIMENOrdering Facility: [facility] Address: [address] [place] [address] Performed By: #### T SCR ####[facility] BLOOD BANKCLIA [id number] [place] [address] [place] Rh Nom (Bld) Positive Normal [facility] Comment on above: Order Comment: Speci men Type: BLOOD SPECIMENOrdering Facility: [facility] Address: [address] [place] [address] Performed By: #### T SCR ####[facility] BLOOD BANKCLIA [id number] [place] [address] [place] TYPE AND SCREEN EXPIRATION 08/11/2022 23:59 Normal [facility] Comment on above: Order Comment: Speci men Type: BLOOD SPECIMENOrdering Facility: [facility] Address: [address] [place] [address] Performed By: #### T SCR ####[facility] BLOOD BANKCLIA [id number] [place] [address] [place] US LEG VEIN DVT VIVIENNE VAS LABo n 08-08-2022 US LEG VEIN DVT VIVIENNE VAS LAB Normal [facility] Urinalysis complete panel (U )on 08-08-2022 Bilirubin Ql (U) Negative Normal Negative [facility] Comment on above: Order Comment: Speci men Type: URINE SPECIMENOrdering Facility: [facility] Address: [address] Performed By: #### 2 4356-8 ####[facility] LABCLIA [id number] [place] [address] [place] CALCIUM OXALATE CRYSTALS (UA) Few Abnormal None Seen [facility] Comment on above: Order Comment: Speci men Type: URINE SPECIMENOrdering Facility: [facility] Address: [address] Performed By: #### 2 4356-8 ####[facility] LABCLIA [id number] [place] [address] [place] Clarity (Unsp spec) Clear Normal Clear [facility] Comment on above: Order Comment: Speci men Type: URINE SPECIMENOrdering Facility: [facility] Address: [address] [place], [place] [address] Performed By: #### 2 4356-8 ####[facility] LABCLIA [id number] [place] [address] [place] Color (U) Yellow Normal Yellow [facility] Comment on above: Order Comment: Speci men Type: URINE SPECIMENOrdering Facility: [facility] Address: [address] [place] [address] Performed By: #### 2 4356-8 ####[facility] LABCLIA [id number] [place] [address] [place] Epithelial cells LM.HPF (Urine sed) [#/Area] Few Normal [facility] Comment on above: Order Comment: Speci men Type: URINE SPECIMENOrdering Facility: [facility] Address: [address] [place] [address] Performed By: #### 2 4356-8 ####[facility] LABCLIA [id number] [place] AV[address]UED[id number] Glucose Test strip (U) [Mass/Vol] Negative Normal Trace, Negative [facility] Comment on above: Order Comment: Speci men Type: URINE SPECIMENOrdering Facility: [facility] Address: [address] Performed By: #### 2 4356-8 ####[facility] LABCLIA [id number] [place] [address] [place] Hemoglobin Ql (U) Negative Normal Negative, Trace [facility] Comment on above: Order Comment: Speci men Type: URINE SPECIMENOrdering Facility: [facility] Address: [address] Performed By: #### 2 4356-8 ####[facility] LABCLIA [id number] [address] [place] Ketones Ql (U) 1+ Abnormal Trace, Negative [facility] Comment on above: Order Comment: Speci men Type: URINE SPECIMENOrdering Facility: [facility] Address: [address] Performed By: #### 2 4356-8 ####[facility] LABCLIA [id number] [address] [place] Leukocyte esterase Test strip Ql (U) 250 Gretta/mL Abnormal Negative, 25 Gretta/mL [facility] Comment on above: Order Comment: Speci men Type: URINE SPECIMENOrdering Facility: [facility] Address: [address] Performed By: #### 2 4356-8 ####[facility] LABCLIA [id number] [address] [place] Nitrite Ql (U) Negative Normal Negative [facility] Comment on above: Order Comment: Speci men Type: URINE SPECIMENOrdering Facility: [facility] Address: [address] Performed By: #### 2 4356-8 ####[facility] LABCLIA [id number] [place] [address] [place] pH (U) 6.0 [pH] Normal 5.0-8.0 [facility] Comment on above: Order Comment: Speci men Type: URINE SPECIMENOrdering Facility: [facility] Address: [address] [place] [address] Performed By: #### 2 4356-8 ####[facility] LABIA [id number] [place] [address] [place] Protein (U) [Mass/Vol] Trace Normal Trace , Negative [facility] Comment on above: Order Comment: Speci men Type: URINE SPECIMENOrdering Facility: [facility] Address: [address] [place] [address] Performed By: #### 2 4356-8 ####[facility] LABIA [id number] [place] [address] [place] RBC LM.HPF (Urine sed) [#/Area] 0-3 /HPF Normal 0-3 /HPF [facility] Comment on above: Order Comment: Speci men Type: URINE SPECIMENOrdering Facility: [facility] Address: [address] [place] [address] Performed By: #### 2 4356-8 ####[facility] LABIA [id number] [place] [address] [place] Specific gravity (U) [Rel density] 1.031 High 1.005-1.03 0 [facility] Comment on above: Order Comment: Speci men Type: URINE SPECIMENOrdering Facility: [facility] Address: [address] [place] [address] Performed By: #### 2 4356-8 ####[facility] LABIA [id number] [place] [address] [place] Urobilinogen Ql (U) Negative Normal Negative [facility] Comment on above: Order Comment: Speci men Type: URINE SPECIMENOrdering Facility: [facility] Address: [address] [place] [address] Performed By: #### 2 4356-8 ####[facility] LABIA [id number] [place] [address] [place] WBC LM.HPF (Urine sed) [#/Area] 6-10 /HPF Abnormal 0-5 /HPF [facility] Comment on above: Order Comment: Speci men Type: URINE SPECIMENOrdering Facility: [facility] Address: [address] [place] [address] Performed By: #### 2 4356-8 ####[facility] [id number] [place] [address] [place] XR CHEST 1V FRONTAL PORTon 0 08-08-2022 XR CHEST 1V FRONTAL PORT Normal [facility] aPTT PPPon 08-08-2022 aPTT Coag (PPP) [Time] 26.1 s Normal 23.0-32.4 [facility] Comment on above: Order Comment: Speci men Type: BLOOD SPECIMENOrdering Facility: [facility] Address: [address] [place] [address] Performed By: #### 3 4528-0, 37358-7 ####[facility] LABIA [id number] [place] [address] [place] CNPNon 08-07-2022 CNPN Normal [facility] CNPNon 08-04-2022 CNPN Normal [facility] CNPNon 08-03-2022 CNPN Normal [facility] CT Abdomen/Pelvis w + w/o Co ntraston 08-02-2022 CT Abdomen/Pelvis w + w/o Contrast CLINICAL INDICATION: Abnormal brain CT, difficulty walking, left-sided weakness. COMPARISON: Pelvis radiographs 06/05/22 TECHNIQUE: Multidetector helical CT of the abdomen and pelvis following IV contrast administration. Sagittal and coronal reformatted images were reviewed. FINDINGS: The liver contains a 15 mm cyst in segment 7. Gallbladder shows no calcified stone, wall thickening, or surrounding fluid. Common bile duct appears within normal limits. Spleen is normal in appearance. Pancreas is unremarkable. Adrenal glands are normal in appearance. The kidneys showed no hydronephrosis or stones. The stomach shows a small hiatal hernia. Small bowel shows no dilation or wall thickening. There are noninflamed diverticuli of the sigmoid colon. No bowel mass or obstruction is seen. The appendix is not seen but there is no evidence of appendicitis. No free air or significant free fluid. No lymphadenopathy. Bladder appears normal. The uterus has been removed. There is no adnexal mass. There are mild degenerative changes of the lumbar spine. No concerning lytic or sclerotic lesions or fractures are seen. Soft tissues are unremarkable. IMPRESSION: 1. No CT evidence of abdominopelvic malignancy. 2. 15 mm simple cyst in the liver. 3. Small hiatal hernia. 4. Sigmoid: Diverticulosis. Report reported and signed by Pato Gage on 08/02/2022 1324 Normal [facility] CT Chest w/ + w/o Contraston 08-02-2022 CT Chest w/ + w/o Contrast CLINICAL INDICATION: Abnormal brain CT, difficulty walking, left-sided weakness COMPARISON: Chest x-rays 07/25/22. TECHNIQUE: Axial CT scan of the chest was performed following intravenous contrast. Sagittal and coronal reformats were obtained. One or more of the following dose reduction techniques were utilized: Automated exposure control, MA and/or KV adjustment according to the patient's size, and or iterative reconstruction technique. FINDINGS: Lungs: Pulmonary parenchyma is without evidence of consolidation. No nodules or masses demonstrated. There are 2 punctate calcified granulomas in the left lower lobe. No pleural effusion. No pneumothorax. Mediastinum, heart, and hilum: No evidence of mediastinal or hilar adenopathy. Normal cardiac chamber orientation. No pericardial thickening or effusion. There are mild coronary and aortic calcifications. Upper Abdomen: 15 mm cyst in hepatic segment 7. Small hiatal hernia Bones and soft tissues: Normal IMPRESSION: 1. No acute or neoplastic abnormality in the chest. 2. Mild coronary and aortic atherosclerosis. 3. Punctate granulomas in the left lower lobe. 4. Small hepatic cyst. 5. Small hiatal hernia. Report reported and signed by Pato Gage on 08/02/2022 1233 Normal [facility] MRI Brain w/o + w/on 023 MRI Brain w/o + w/ CLINICAL INDICATION: Abnormal brain CT. Left-sided weakness, difficulty walking. COMPARISON: Head CT from 08/01/22. TECHNIQUE: Multiplanar multisequence 1.5 Makayla brain MRI was performed before and after IV contrast. 14 mL ProHance IV contrast was used. FINDINGS: Cerebral volume is within normal limits for age. The ventricles are proportional and show no evidence of acute hydrocephalus. The basal cisterns are patent. A mild degree of small T2 FLAIR hyperintense foci in the periventricular and subcortical white matter is likely due to chronic small vessel disease. No acute infarct or hemorrhage is seen. The right parietal lobe contains 2 immediately adjacent enhancing lesions with central necrosis and surrounding vasogenic edema. The larger, more lorie-superior lesion measures 3.3 x 2.9 cm, whereas the more posterior inferior lesion measures 2.8 x 2.6 cm. There are also nearby subcentimeter enhancing nodules medial and lateral to these lesions. The posterior fossa structures and visualized cervical spine appear normal. The major arterial and venous flow-voids are patent. No acute abnormality in the orbits. No significant paranasal sinus or mastoid air cell disease. The scalp soft tissues are unremarkable. The calvarium, skull base and visualized facial bones appear normal. IMPRESSION: Enhancing lesions with surrounding edema in the right parietal lobe. The larger lesions have central necrosis. 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 Neurosurgical consultation and biopsy are recommended. Report reported and signed by Pato Gage on 08/02/2022 1544 Normal [facility] Manager Reporting XR Chest 2 Views*on 07-25-19 23 XR Chest 2 Views* FINDINGS: No focal infiltrates are identified; no worrisome mass lesions are seen. Small hilar calcifications are present suggesting old granulomatous disease. Mild left ventricular prominence. Mild compressive volume loss right medial base accentuated by mild hemidiaphragm eventration. Cardiac silhouette size is normal. Skeletal structures are unremarkable IMPRESSION: No focal infiltrates. Report reported and signed by Carl Harp on 07/25/2022 1558 Normal [facility] Manager Reporting XR Hip Bilateral w/Pelvison 06-05-2022 XR Hip Bilateral w/Pelvis HISTORY: Right hip pain for several years. No injury. No complaints for left hip. FINDINGS: The bones are demineralized. There is mild to moderate joint space narrowing and subchondral cystic and sclerotic change of both hips. No fracture or dislocation is seen. Sacral arcuate lines are intact. The SI joints are symmetric. There are mild degenerative changes in the lower lumbar spine. IMPRESSION: 1. 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 2. Mild degenerative change in the lower lumbar spine. Report reported and signed by Pato Gage on 06/05/2022 1148 Normal [facility] Complete Blood Count with Au to Diffon 09-28-2021 Basophils (Bld) [#/Vol] 0.05 10*3/uL Normal 0.00-0.20 [facility] Specialist Comment on above: Performed By: #### C MP, VITD, LIPD, CBCAD #### [facility] [address] [place], [place] [id number] Basophils/100 WBC (Bld) 1.0 % Normal N [facility] Comment on above: Performed By: #### C MP, VITD, LIPD, CBCAD #### [facility] [address] [place], [place] [id number] Eosinophils (Bld) [#/Vol] 0.16 10*3/uL Normal 0.02-0.50 [facility] Comment on above: Performed By: #### C MP, VITD, LIPD, CBCAD #### [facility] [address] [place], [place] [id number] Eosinophils/100 WBC (Bld) 3.3 % Normal [facility] Comment on above: Performed By: #### C MP, VITD, LIPD, CBCAD #### [facility] [address] [place], [place] [id number] Erythrocyte distribution width (RBC) [Ratio] 12.9 % Normal 11.0-15.0 [facility] Comment on above: Performed By: #### C MP, VITD, LIPD, CBCAD #### [facility] [address] [place], [place] [id number] Hematocrit (Bld) [Volume fraction] 39.9 % Normal 35.0-47.0 [facility] Specialist Comment on above: Performed By: #### C MP, VITD, LIPD, CBCAD #### [facility] [address] [place], [place] [id number] Hemoglobin (Bld) [Mass/Vol] 13.1 g/dL Normal 11.6-15.5 [facility] Specialist Comment on above: Performed By: #### C MP, VITD, LIPD, CBCAD #### [facility] [address] [place], [place] [id number] Lymphocytes (Bld) [#/Vol] 1.1 10*3/uL Normal 0.9-3.9 [facility] Comment on above: Performed By: #### C MP, VITD, LIPD, CBCAD #### [facility] [address] [place], [place] [id number] Lymphocytes/100 WBC (Bld) 22.2 % Normal [facility] Specialist Comment on above: Performed By: #### C MP, VITD, LIPD, CBCAD #### [facility] [address] [place], [place] [id number] MCH (RBC) [Entitic mass] 29.4 pg Normal 27.0-33.0 [facility] Specialist Comment on above: Performed By: #### C MP, VITD, LIPD, CBCAD #### [facility] [address] [place], [place] [id number] MCHC (RBC) [Mass/Vol] 32.8 g/dL Normal 32.0-36.0 [facility] Comment on above: Performed By: #### C MP, VITD, LIPD, CBCAD #### [facility] [address] [place], [place] [id number] MCV (RBC) [Entitic vol] 90 fL Normal 80-100 N [facility] Comment on above: Performed By: #### C MP, VITD, LIPD, CBCAD #### [facility] [address] [place], [place] [id number] Monocytes (Bld) [#/Vol] 0.5 10*3/uL Normal 0.2-0.9 [facility] Specialist Comment on above: Performed By: #### C MP, VITD, LIPD, CBCAD #### [facility] [address] [place], [place] [id number] Monocytes/100 WBC (Bld) 10.6 % [facility] Comment on above: Performed By: #### C MP, VITD, LIPD, CBCAD #### [facility] [address] [place], [place] [id number] Neutrophils (Bld) [#/Vol] 3.0 10*3/uL Normal 1.5-7.8 [facility] Comment on above: Performed By: #### C MP, VITD, LIPD, CBCAD #### [facility] [address] [place], [place] [id number] Neutrophils/100 WBC (Bld) 62.7 % Normal [facility] Comment on above: Performed By: #### C MP, VITD, LIPD, CBCAD #### [facility] [address] [place], [place] [id number] Platelet mean volume (Bld) [Entitic vol] 11.10 fL Normal 7.50-12.50 [facility] Comment on above: Performed By: #### C MP, VITD, LIPD, CBCAD #### [facility] [address] [place], [place] [id number] Platelets (Bld) [#/Vol] 239 10*3/uL Normal 140-400 [facility] Specialist Comment on above: Performed By: #### C MP, VITD, LIPD, CBCAD #### [facility] [address] [place], [place] [id number] RBC (Bld) [#/Vol] 4.45 10*6/uL Normal 3.90-5.20 [facility] Comment on above: Performed By: #### C MP, VITD, LIPD, CBCAD #### [facility] [address] [place], [place] [id number] RDW-SD 42.3 fL Normal 37.0-50.0 [facility] Specialist Comment on above: Performed By: #### C MP, VITD, LIPD, CBCAD #### [facility] [address] [place], [place] [id number] WBC (Bld) [#/Vol] 4.8 10*3/uL Normal 3.8-11.0 [place] [place] Manager Reporting Comment on above: Performed By: #### C MP, VITD, LIPD, CBCAD #### [facility] [address] [place], [place] [id number] Comprehensive Metabolic Pane noelle 09-28-2021 Albumin [Mass/Vol] 4.6 g/dL Normal 3.6-5.1 [place] [facility] [place] Manager Reporting Comment on above: Performed By: #### C MP, VITD, LIPD, CBCAD #### [facility] [address] [place], [place] [id number] Albumin/Globulin [Mass ratio] 2.6 {ratio} High 1.0-2.5 [facility] Manager Reporting Comment on above: Performed By: #### C MP, VITD, LIPD, CBCAD #### [facility] [address] [place], [place] [id number] ALP [Catalytic activity/Vol] 59 U/L Normal 35-119 [facility] Specialist Comment on above: Performed By: #### C MP, VITD, LIPD, CBCAD #### [facility] [address] [place], [place] [id number] ALT [Catalytic activity/Vol] 12 U/L Normal 6-33 [facility] Specialist Comment on above: Result Comment: 06/22 Female reference range changed. Performed By: #### C MP, VITD, LIPD, CBCAD #### [facility] [address] [place], [place] [id number] Anion gap [Moles/Vol] 17 mmol/L Normal 12-20 [facility] Specialist Comment on above: Result Comment: Effe ctive 07/28/2019 reference range changed. Performed By: #### C MP, VITD, LIPD, CBCAD #### [facility] [address] [place], [place] [id number] AST [Catalytic activity/Vol] 14 U/L Normal 9-34 [facility] Specialist Comment on above: Performed By: #### C MP, VITD, LIPD, CBCAD #### [facility] [address] [place], [place] [id number] Bilirubin [Mass/Vol] 0.67 mg/dL Normal 0.30-1.20 [facility] Comment on above: Performed By: #### C MP, VITD, LIPD, CBCAD #### [facility] [address] [place], [place] [id number] BUN/CREA 32 Ratio High 6-22 [facility] Comment on above: Performed By: #### C MP, VITD, LIPD, CBCAD #### [facility] [address] [place], [place] [id number] Calcium [Mass/Vol] 9.4 mg/dL Normal 8.6-10.2 [facility] Comment on above: Performed By: #### C MP, VITD, LIPD, CBCAD #### [facility] [address] [place], [place] [id number] Chloride [Moles/Vol] 103 mmol/L Normal 98-107 [facility] Comment on above: Performed By: #### C MP, VITD, LIPD, CBCAD #### [facility] [address] [place], [place] [id number] CO2 [Moles/Vol] 28 mmol/L Normal 20-31 [facility] Comment on above: Performed By: #### C MP, VITD, LIPD, CBCAD #### [facility] [address] [place], [place] [id number] Creatinine [Mass/Vol] 0.7 mg/dL Normal 0.6-1.4 [facility] Comment on above: Performed By: #### C MP, VITD, LIPD, CBCAD #### [facility] [address] [place], [place] [id number] eGFRAA 93 mL/min/1.73m2 Normal >60 [facility] Comment on above: Performed By: #### C MP, VITD, LIPD, CBCAD #### [facility] [address] [place], [place] [id number] eGFRNAA 77 mL/min/1.73m2 Normal >60 [facility] Comment on above: Performed By: #### C MP, VITD, LIPD, CBCAD #### [facility] [address] [place], [place] [id number] Globulin (S) [Mass/Vol] 1.8 g/dL Low 1.9-3.7 [facility] Specialist Comment on above: Performed By: #### C MP, VITD, LIPD, CBCAD #### [facility] [address] [place], [place] [id number] Glucose [Mass/Vol] 92 mg/dL Normal 65-99 [facility] Manager Reporting Comment on above: Result Comment: For FASTING Glucose --- ADA reference ranges: Normal 65-99 mg/dl Prediabetes 100-125 Diabetes >/= 126 Performed By: #### C MP, VITD, LIPD, CBCAD #### [facility] [address] [place], [place] [id number] Potassium [Moles/Vol] 3.9 mmol/L Normal 3.5-5.5 [facility] Specialist Comment on above: Performed By: #### C MP, VITD, LIPD, CBCAD #### [facility] [address] [place], [place] [id number] Protein [Mass/Vol] 6.4 g/dL Normal 6.1-8.1 [facility] Manager Reporting Comment on above: Performed By: #### C MP, VITD, LIPD, CBCAD #### [facility] [address] [place], [place] [id number] Sodium [Moles/Vol] 144 mmol/L Normal 135-146 [facility] Manager Reporting Comment on above: Performed By: #### C MP, VITD, LIPD, CBCAD #### [facility] [address] [place], [place] [id number] Urea nitrogen [Mass/Vol] 24 mg/dL Normal 7-25 [facility] Specialist Comment on above: Performed By: #### C MP, VITD, LIPD, CBCAD #### [facility] [address] [place], [place] [id number] Lipid Panelon 09-28-2021 Cholesterol [Mass/Vol] 221 mg/dL High 125-200 No [facility] Manager Reporting Comment on above: Result Comment: Low risk < 200mg/dL Borderline risk 201-239 mg/dl High risk > or equal to 240 Performed By: #### C MP, VITD, LIPD, CBCAD #### [facility] [address] [place], [place] [id number] Cholesterol in HDL [Mass/Vol] 70 mg/dL Normal >40 [facility] Comment on above: Result Comment: High Cardiovascular Risk HDL <40 mg/dL Low Cardiovascular Risk HDL > or equal to 60 mg/dl Performed By: #### C MP, VITD, LIPD, CBCAD #### [facility] [address] [place], [place] [id number] Cholesterol in LDL [Mass/Vol] 135 mg/dL Normal [facility] Comment on above: Result Comment: LDL ATP III CLASSIFICATION LDL less than 100 mg/dl Optimal LDL 100-129 mg/dl Near or above optimal LDL 130-159 Borderline high LDL 160-189 High LDL greater than 189 mg/dl Very High Performed By: #### C MP, VITD, LIPD, CBCAD #### [facility] [address] [place], [place] [id number] Cholesterol in VLDL [Mass/Vol] 16 mg/dL Normal [facility] Comment on above: Performed By: #### C MP, VITD, LIPD, CBCAD #### [facility] [address] [place], [place] [id number] Cholesterol.total/Fiona sterol in HDL [Mass ratio] 3 {ratio} Normal [facility] Comment on above: Performed By: #### C MP, VITD, LIPD, CBCAD #### [facility] [address] [place], [place] [id number] Triglyceride [Mass/Vol] 80 mg/dL Normal 30-150 [facility] Comment on above: Result Comment: TRIG ATPIII CLASSIFICATIONS TRIG less than 150 mg/dl Normal TRIG 150-199 mg/dl Borderline High TRIG 200-500 mg/dl High TRIG greather than 500 mg/dl Very High Performed By: #### C MP, VITD, LIPD, CBCAD #### [facility] [address] [place], [place] [id number] Vitamin D 25-OHon 09-28-2021 VIT D 25 OH 36 ng/ml Normal >29 [facility] Comment on above: Result Comment: Milana min D Status Deficiency <20 ng/mL Insufficiency 20-29 ng/mL Optimal 30-100 ng/mL Possible Toxicity >=150 ng/mL Performed By: #### C MP, VITD, LIPD, CBCAD #### [facility] [address] [place], [place] [id number] XR Bone Density (DEXA)on XR Bone Density (DEXA) EXAM: Dual Femur Bone Density FINDINGS: Dual Femur bone density obtained with a Dooc[employer] whole body system: QmggoyBCRUqdmo-PcporUuu-Pc tched Total(g/cm2)(%)T-Score(%)Z -Score [id number] Impression: The mean BMD and corresponding T-score indicated above indicate Low Bone Mass (Osteopenia) and places the patient at a mild to moderate increased risk for fracture. There may be a future risk of developing osteoporosis. EXAM: AP Lumbar Bone Density FINDINGS: AP Spine bone density obtained with a [employer]oc[employer] whole body system: CepvjvGKETpscf-ZpqexGwq-Jq tched Total(g/cm2)(%)T-Score(%)Z -Score L1-[id number] Impression: The mean BMD and corresponding T-score indicated above indicate Low Bone Mass (Osteopenia) and places the patient at a mild to moderate increased risk for fracture. There may be a future risk of developing osteoporosis. Comment: The T-score is the primary focus of the interpretation of a patient???s bone mineral density measurement. The T-score is the number of standard deviations an individual is above or below the mean value for a young female having normal bone mass. The WHO defines osteoporosis based on the T-score value??? +1.0 to ???0.9: Normal bone mass -1.0 to -2.5: Osteopenia and thus may be at future risk of fracture -2.6 to ???5: Osteoporosis and ???at significantly increased risk of fracture??? A Z-Score of -2.0 or lower is defined as ???below the expected range for age??? and a Z-Score above -2.0 is ???within the expected range for age.??? Osteoporosis cannot be diagnosed in men under the age of 50 on the basis of BMD alone. Per 2019 ISCD guidelines, Z-Scores (not T-Scores) are preferred when reporting data in premenopausal females and males less than 50 years of age. Report reported and signed by Carl Harp on 09/20/2021 1234 Normal [facility] Manager Reporting Covid-19 PCR (CVDTB)on 03-23 SARS-CoV-2 (COVID-19) RNA JOAN+probe Ql (Unsp spec) Detected Critically abnormal NOT DETECTED [facility] Comment on above: Result Comment: This test is not yet approved or cleared by the [place] FDA. When there are no FDA-approved or cleared tests available, and other criteria are met, FDA can make tests available under an emergency access mechanism called an Emergency Use Authorization (EUA). The EUA for this test is supported by the Manager Presentation of Health and Human Service's (HHS's) declaration that circumstances exist to justify the emergency use of in vitro diagnostics for the detection and/or diagnosis of the virus that causes COVID-19. This EUA will remain in effect (meaning this test can be used) for the duration of the COVID-19 declaration justifying emergency of IVDs, unless it is terminated or revoked by FDA (after which the test may no longer be used). Performed By: #### C [facility] #### [facility] [address] [place] [address] Dr. Ortega Lee Vital Signs Date Time Vital Sign Value Performing Clinician Facility 07-18-2023 19:02-0500 Diastolic blood pressure 67 mm[Hg] MD Milvia Hinkle Work Phone: [facility] 07-18-2023 19:02-0500 Heart rate 72 /min MD Milvia Hinkle Work Phone: [facility] 07-18-2023 19:02-0500 Respiratory rate 20 /min MD Milvia Hinkle Work Phone: [facility] 07-18-2023 19:02-0500 SaO2% (BldA) [Mass fraction] 95 % MD Milvia Hinkle Work Phone: [facility] 07-18-2023 19:02-0500 Systolic blood pressure 140 mm[Hg] MD Milvia Hinkle Work Phone: [facility] 07-18-2023 13:50-0500 Body height 162.56 cm MD Milvia Hinkle Work Phone: [facility] 07-18-2023 13:50-0500 Body temperature 98.5 [degF] MD Milvia Hinkle Work Phone: [facility] 07-18-2023 13:50-0500 Body weight 70.3 kg MD Milvia Hinkle Work Phone: [facility] 06-15-2023 10:36-0500 Body temperature 98.2 [degF] Adolfo Martins MD, PhD Work Phone: [facility] 06-15-2023 10:36-0500 Diastolic blood pressure 77 mm[Hg] Adolfo Stokes, PhD Work Phone: [facility] 06-15-2023 10:36-0500 Heart rate 74 /min Adolfo Martins MD, PhD Work Phone: [facility] 06-15-2023 10:36-0500 Respiratory rate 18 /min Adolfo Martins MD, PhD Work Phone: [facility] 06-15-2023 10:36-0500 SaO2% (BldA) [Mass fraction] 96 % Adolfo Martins MD, PhD Work Phone: [facility] 06-15-2023 10:36-0500 Systolic blood pressure 156 mm[Hg] Adolfo Martins MD , PhD Work Phone: [facility] 05-04-2023 10:31-0400 Body height 162.6 cm Anshul Riggs MD Work Phone: [facility] 05-04-2023 10:31-0400 Body temperature 97.5 [degF] Anshul Riggs MD Work Phone: [facility] 05-04-2023 10:31-0400 Diastolic blood pressure 74 mm[Hg] Anshul Riggs MD Work Phone: [facility] 05-04-2023 10:31-0400 Heart rate 77 /min Anshul Riggs MD Work Phone: [facility] 05-04-2023 10:31-0400 Respiratory rate 18 /min Anshul Riggs MD Work Phone: [facility] 05-04-2023 10:31-0400 SaO2% (BldA) [Mass fraction] 97 % Anshul Riggs MD Work Phone: [facility] 05-04-2023 10:31-0400 Systolic blood pressure 135 mm[Hg] Anshul Stokes Work Phone: [facility] 04-04-2023 14:51-0400 Body temperature 97.3 [degF] Anshul Riggs MD Work Phone: [facility] 04-04-2023 14:51-0400 Diastolic blood pressure 62 mm[Hg] Anshul Riggs MD Work Phone: [facility] 04-04-2023 14:51-0400 Heart rate 93 /min Anshul Riggs MD Work Phone: [facility] 04-04-2023 14:51-0400 Respiratory rate 16 /min Anshul Riggs MD Work Phone: [facility] 04-04-2023 14:51-0400 SaO2% (BldA) [Mass fraction] 95 % Anshul Riggs MD Work Phone: [facility] 04-04-2023 14:51-0400 Systolic blood pressure 103 mm[Hg] Anshul Stokes Work Phone: [facility] 02-07-2023 14:29-0400 Body height 162.6 cm Anshul Riggs MD Work Phone: [facility] 02-07-2023 14:29-0400 Body temperature 97.39 [degF] Anshul Riggs MD Work Phone: [facility] 02-07-2023 14:29-0400 Diastolic blood pressure 82 mm[Hg] Anshul Riggs MD Work Phone: [facility] 02-07-2023 14:29-0400 Heart rate 112 /min Anshul Riggs MD Work Phone: [facility] 02-07-2023 14:29-0400 Respiratory rate 16 /min Anshul Riggs MD Work Phone: [facility] 02-07-2023 14:29-0400 SaO2% (BldA) [Mass fraction] 98 % Anshul Riggs MD Work Phone: [facility] 02-07-2023 14:29-0400 Systolic blood pressure 97 mm[Hg] Anshul Stokes Work Phone: [facility] 01-09-2023 14:57-0400 Body height 162.6 cm Jessica Camila PA-C Work Phone: [facility] 01-09-2023 14:57-0400 Body temperature 97.81 [degF] Jessica Camila PA-C Work Phone: [facility] 01-09-2023 14:57-0400 Diastolic blood pressure 64 mm[Hg] Jessica Camila PA -C Work Phone: [facility] 01-09-2023 14:57-0400 Heart rate 79 /min Jessica Camila PA-C Work Phone: [facility] 01-09-2023 14:57-0400 Respiratory rate 16 /min Jessica Camila PA-C Work Phone: [facility] 01-09-2023 14:57-0400 SaO2% (BldA) [Mass fraction] 97 % Jessica Camila PA-C Work Phone: [facility] 01-09-2023 14:57-0400 Systolic blood pressure 117 mm[Hg] Jessica Rae Work Phone: [facility] 12-20-2022 14:34-0400 Body height 162.6 cm Anshul Riggs MD Work Phone: [facility] 12-20-2022 14:34-0400 Body temperature 97 [degF] Anshul Riggs MD Work Phone: [facility] 12-20-2022 14:34-0400 Diastolic blood pressure 66 mm[Hg] Anshul Riggs MD Work Phone: [facility] 12-20-2022 14:34-0400 Heart rate 79 /min Anshul Riggs MD Work Phone: [facility] 12-20-2022 14:34-0400 Respiratory rate 18 /min Anshul Riggs MD Work Phone: [facility] 12-20-2022 14:34-0400 SaO2% (BldA) [Mass fraction] 99 % Anshul Riggs MD Work Phone: [facility] 12-20-2022 14:34-0400 Systolic blood pressure 131 mm[Hg] Anshul Stokes Work Phone: [facility] 11-30-2022 15:06-0400 Body height 162.6 cm Anshul Riggs MD Work Phone: [facility] 11-30-2022 15:06-0400 Body temperature 97.39 [degF] Anshul Riggs MD Work Phone: [facility] 11-30-2022 15:06-0400 Body weight 69.13 kg Anshul Riggs MD Work Phone: [facility] 11-30-2022 15:06-0400 Diastolic blood pressure 58 mm[Hg] Anshul Riggs MD Work Phone: [facility] 11-30-2022 15:06-0400 Heart rate 89 /min Anshul Riggs MD Work Phone: [facility] 11-30-2022 15:06-0400 Respiratory rate 16 /min Anshul Riggs MD Work Phone: [facility] 11-30-2022 15:06-0400 SaO2% (BldA) [Mass fraction] 96 % Anshul Riggs MD Work Phone: [facility] 11-30-2022 15:06-0400 Systolic blood pressure 99 mm[Hg] Anshul Stokes Work Phone: [facility] 11-17-2022 14:59-0400 Body height 162.6 cm Anshul Riggs MD Work Phone: [facility] 11-17-2022 14:59-0400 Body temperature 97.3 [degF] Anshul Riggs MD Work Phone: [facility] 11-17-2022 14:59-0400 Body weight 69.85 kg Anshul Riggs MD Work Phone: [facility] 11-17-2022 14:59-0400 Diastolic blood pressure 61 mm[Hg] Anshul Riggs MD Work Phone: [facility] 11-17-2022 14:59-0400 Heart rate 78 /min Anshul Riggs MD Work Phone: [facility] 11-17-2022 14:59-0400 Respiratory rate 16 /min Anshul Riggs MD Work Phone: [facility] 11-17-2022 14:59-0400 SaO2% (BldA) [Mass fraction] 94 % Anshul Riggs MD Work Phone: [facility] 11-17-2022 14:59-0400 Systolic blood pressure 115 mm[Hg] Anshul Stokes Work Phone: [facility] 11-02-2022 08:56-0400 Body height 162.6 cm Anshul Riggs MD Work Phone: [facility] 11-02-2022 08:56-0400 Body temperature 97.59 [degF] Anshul Riggs MD Work Phone: [facility] 11-02-2022 08:56-0400 Body weight 70.76 kg Anshul Riggs MD Work Phone: [facility] 11-02-2022 08:56-0400 Diastolic blood pressure 68 mm[Hg] Anshul Riggs MD Work Phone: [facility] 11-02-2022 08:56-0400 Heart rate 77 /min Anshul Riggs MD Work Phone: [facility] 11-02-2022 08:56-0400 Respiratory rate 16 /min Anshul Riggs MD Work Phone: [facility] 11-02-2022 08:56-0400 SaO2% (BldA) [Mass fraction] 98 % Anshul Riggs MD Work Phone: [facility] 11-02-2022 08:56-0400 Systolic blood pressure 141 mm[Hg] Anshul Stokes Work Phone: [facility] 10-20-2022 10:55-0400 Body height 162.6 cm Jessica Cartagena PA-C Work Phone: [facility] 10-20-2022 10:55-0400 Body temperature 97.5 [degF] Jessica Cartagena PA-C Work Phone: [facility] 10-20-2022 10:55-0400 Body weight 72.76 kg Jessica Deeer PA-C Work Phone: [facility] 10-20-2022 10:55-0400 Diastolic blood pressure 81 mm[Hg] Jessica Camila PA -C Work Phone: [facility] 10-20-2022 10:55-0400 Heart rate 70 /min Jessiac Camila PA-C Work Phone: [facility] 10-20-2022 10:55-0400 Respiratory rate 16 /min Jessica Camila PA-C Work Phone: [facility] 10-20-2022 10:55-0400 SaO2% (BldA) [Mass fraction] 95 % Jessica Camila PA-C Work Phone: [facility] 10-20-2022 10:55-0400 Systolic blood pressure 136 mm[Hg] Jessica Camila PA- C Work Phone: [facility] 10-11-2022 10:53-0400 Body temperature 96.8 [degF] Max Stallings MD Work Phone: [facility] 10-11-2022 10:53-0400 Body weight 73.26 kg Max Stallings MD Work Phone: [facility] 10-11-2022 10:53-0400 Diastolic blood pressure 79 mm[Hg] Max Stallings MD Work Phone: [facility] 10-11-2022 10:53-0400 Heart rate 96 /min Max Stallings MD Work Phone: [facility] 10-11-2022 10:53-0400 Respiratory rate 18 /min Max Stallings MD Work Phone: [facility] 10-11-2022 10:53-0400 SaO2% (BldA) [Mass fraction] 97 % Max Stallings MD Work Phone: [facility] 10-11-2022 10:53-0400 Systolic blood pressure 156 mm[Hg] Max Stallings MD Work Phone: [facility] 10-06-2022 08:51-0400 Body height 162.6 cm Jessica Camila PA-C Work Phone: [facility] 10-06-2022 08:51-0400 Body temperature 97.59 [degF] Jessica Camila PA-C Work Phone: [facility] 10-06-2022 08:51-0400 Body weight 73.94 kg Jessica Camila PA-C Work Phone: [facility] 10-06-2022 08:51-0400 Diastolic blood pressure 75 mm[Hg] Jessica Camila PA -C Work Phone: [facility] 10-06-2022 08:51-0400 Heart rate 80 /min Jessica Camila PA-C Work Phone: [facility] 10-06-2022 08:51-0400 Respiratory rate 16 /min Jessica Camila PA-C Work Phone: [facility] 10-06-2022 08:51-0400 SaO2% (BldA) [Mass fraction] 95 % Jesisca Camila PA-C Work Phone: [facility] 10-06-2022 08:51-0400 Systolic blood pressure 110 mm[Hg] Jessica Camila PA- C Work Phone: [facility] 10-04-2022 10:45-0400 Body temperature 97.39 [degF] Max Stallings MD Work Phone: [facility] 10-04-2022 10:45-0400 Body weight 73.85 kg Max Stallings MD Work Phone: [facility] 10-04-2022 10:45-0400 Diastolic blood pressure 84 mm[Hg] Max Stallings MD Work Phone: [facility] 10-04-2022 10:45-0400 Heart rate 77 /min Max Stallings MD Work Phone: [facility] 10-04-2022 10:45-0400 Respiratory rate 18 /min Max Stallings MD Work Phone: [facility] 10-04-2022 10:45-0400 SaO2% (BldA) [Mass fraction] 98 % Max Stallings MD Work Phone: [facility] 10-04-2022 10:45-0400 Systolic blood pressure 155 mm[Hg] Max Stallings MD Work Phone: [facility] 09-27-2022 09:29-0500 Body height 162.6 cm Anshul Riggs MD Work Phone: [facility] 09-27-2022 09:29-0500 Body temperature 97.59 [degF] Anshul Riggs MD Work Phone: [facility] 09-27-2022 09:29-0500 Body weight 73.48 kg Anshul Riggs MD Work Phone: [facility] 09-27-2022 09:29-0500 Diastolic blood pressure 64 mm[Hg] Anshul Riggs MD Work Phone: [facility] 09-27-2022 09:29-0500 Heart rate 75 /min Anshul Riggs MD Work Phone: [facility] 09-27-2022 09:29-0500 Respiratory rate 18 /min Anshul Riggs MD Work Phone: [facility] 09-27-2022 09:29-0500 SaO2% (BldA) [Mass fraction] 100 % Anshul Riggs MD Work Phone: [facility] 09-27-2022 09:29-0500 Systolic blood pressure 139 mm[Hg] Anshul Stokes Work Phone: [facility] 09-20-2022 11:02-0500 Body temperature 97.39 [degF] Max Stallings MD Work Phone: [facility] 09-20-2022 11:02-0500 Body weight 72.03 kg Max Stallings MD Work Phone: [facility] 03-01-2023 11:02-0500 Diastolic blood pressure 67 mm[Hg] Max Stallings MD Work Phone: [facility] 09-20-2022 11:02-0500 Heart rate 76 /min Max Stallings MD Work Phone: [facility] 09-20-2022 11:02-0500 Respiratory rate 18 /min Max Stallings MD Work Phone: [facility] 09-20-2022 11:02-0500 SaO2% (BldA) [Mass fraction] 99 % Max Stallings MD Work Phone: [facility] 09-20-2022 11:02-0500 Systolic blood pressure 107 mm[Hg] Max Stallings MD Work Phone: [facility] 09-19-2022 13:16-0500 Body height 162.6 cm Jessica Camila PA-C Work Phone: [facility] 09-19-2022 13:16-0500 Body temperature 97.7 [degF] Jessica Camila PA-C Work Phone: [facility] 09-19-2022 13:16-0500 Body weight 70.13 kg Jessica Camila PA-C Work Phone: [facility] 09-19-2022 13:16-0500 Diastolic blood pressure 73 mm[Hg] Jessica Camila PA -C Work Phone: [facility] 09-19-2022 13:16-0500 Heart rate 87 /min Jessica Camila PA-C Work Phone: [facility] 09-19-2022 13:16-0500 Respiratory rate 16 /min Jessica Camila PA-C Work Phone: [facility] 09-19-2022 13:16-0500 SaO2% (BldA) [Mass fraction] 97 % Jessica Camila PA-C Work Phone: [facility] 09-19-2022 13:16-0500 Systolic blood pressure 126 mm[Hg] Jessica Camila PA- C Work Phone: [facility] 09-14-2022 15:47-0500 Body height 162.6 cm Martina Gutierrez MD Work Phone: [facility] 09-14-2022 15:47-0500 Body weight 70.22 kg Martina Gutierrez MD Work Phone: [facility] 09-14-2022 15:47-0500 Diastolic blood pressure 63 mm[Hg] Martina roca MD Work Phone: [facility] 09-14-2022 15:47-0500 Heart rate 72 /min Martina Gutierrez MD Work Phone: [facility] 09-14-2022 15:47-0500 SaO2% (BldA) [Mass fraction] 99 % Martina Gutierrez MD Work Phone: [facility] 09-14-2022 15:47-0500 Systolic blood pressure 110 mm[Hg] Martina Gutierrez MD Work Phone: [facility] 09-13-2022 09:21-0500 Body temperature 97.59 [degF] Max Stallings MD Work Phone: [facility] 09-13-2022 09:21-0500 Diastolic blood pressure 84 mm[Hg] Max Stallings MD Work Phone: [facility] 09-13-2022 09:21-0500 Heart rate 80 /min Max Stallings MD Work Phone: [facility] 09-13-2022 09:21-0500 Respiratory rate 18 /min Max Stallings MD Work Phone: [facility] 09-13-2022 09:21-0500 SaO2% (BldA) [Mass fraction] 99 % Max Stallings MD Work Phone: [facility] 09-13-2022 09:21-0500 Systolic blood pressure 146 mm[Hg] Max Stallings MD Work Phone: [facility] 09-12-2022 10:46-0500 Body height 162.6 cm Anshul Riggs MD Work Phone: [facility] 09-12-2022 10:46-0500 Body temperature 97 [degF] Anshul Riggs MD Work Phone: [facility] 09-12-2022 10:46-0500 Body weight 72.58 kg Anshul Riggs MD Work Phone: [facility] 09-12-2022 10:46-0500 Diastolic blood pressure 70 mm[Hg] Anshul Riggs MD Work Phone: [facility] 09-12-2022 10:46-0500 Heart rate 83 /min Anshul Riggs MD Work Phone: [facility] 09-12-2022 10:46-0500 Respiratory rate 16 /min Anshul Riggs MD Work Phone: [facility] 09-12-2022 10:46-0500 SaO2% (BldA) [Mass fraction] 97 % Anshul Riggs MD Work Phone: [facility] 09-12-2022 10:46-0500 Systolic blood pressure 132 mm[Hg] Anshul Stokes Work Phone: [facility] 08-14-2022 15:25-0500 SaO2% (BldA) [Mass fraction] 100 % MAX STALLINGS [facility] Comment on above: Order Comment: Specimen Type: ARTERIAL B LOOD SPECIMENOrdering Facility: [facility] Address: [address] [id number] Performed By: #### A LLBG ####[facility] LABCLIA [id number] [place] [address] [place] 08-14-2022 12:47-0500 SaO2% (BldA) [Mass fraction] 99 % MAX STALLINGS [facility] Comment on above: Order Comment: Specimen Type: ARTERIAL B LOOD SPECIMENOrdering Facility: [facility] Address: [address] [id number] Performed By: #### A LLMG ####[facility] LABCLIA [id number] [id number] [address] [place] Encounters Encounter Date Encounter Type Care Provider Facility Start: 07-26-2023 End: 07-26-2023 ambulatory MILVIA HINKLE Facility:[facility] Start: 07-25-2023 End: 07-26-2023 ambulatory MILVIA HINKLE Facility:[facility] Start: 07-18-2023 End: 07-18-2023 Emergency department patient visit Milvia Hinkle Facility:[facility] Start: 07-18-2023 End: 07-18-2023 Emergency department patient visit MD Milvia Hinkle Work Phone: [facility] Work Phone: Start: 07-17-2023 End: 07-17-2023 ambulatory JESSICA CARTAGENA Facility:[facility] Start: 07-10-2023 End: 07-10-2023 ambulatory ANSHUL KARAMLOU Facility:[facility] Start: 07-03-2023 Refill Emily [facility] Start: 07-02-2023 Refill Emily [facility] Start: 06-29-2023 Telephone encounter Yaneth Farfan itt [facility] Work Phone: [facility] HB[facility] Comment on above: Medication Assistanc e (Gleostine PAP free drug application initiated) Start: 06-29-2023 End: 06-29-2023 ambulatory ANSHUL KARAMLOU Facility:[facility] Start: 06-25-2023 Social Work [facility]iel[facility] Start: 06-23-2023 Telephone encounter Adolfo dumont MD, PhD Work Phone: [facility] Comment on above: Home Care Start: 06-22-2023 Telephone encounter Adolfo dumont MD, PhD Work Phone: [facility] Comment on above: Lomustine cycle #1 ( 90 mg/m2) Start: 06-18-2023 Orders Only Adolfo Martins MD, PhD Work Phone: [facility] (Formerly [facility]) Comment on above: Glioblastoma (HCC) ( Primary Dx) SPP Oral Oncology/he matology - Treatment Referral (Gleostine); Insurance Authorization (No PA Needed) Start: 06-15-2023 End: 06-15-2023 ambulatory DIPIKA DUFF Facility:[facility] Start: 06-15-2023 End: 06-15-2023 Office outpatient new 60 minutes Adolfo Martins MD, PhD Work Phone: [facility] (Formerly [facility]) Comment on above: Glioblastoma (HCC) ( Primary Dx) Start: 06-08-2023 Orders Only Dipika Callaway MD Work Phone: [facility] (Former[facility]) Comment on above: Glioblastoma (HCC) ( Primary Dx); Cerebral autosomal dominant arteriopathy with subcortical infarcts and leukoencephalopathy; Other specified disorders of central nervous system Start: 06-07-2023 Orders Only Dar Stokes Work Phone: [facility] (Former[facility]) Comment on above: Glioblastoma (HCC) ( Primary Dx); Benign neoplasm of meninges (HCC) Start: 06-04-2023 Telephone encounter Dipika Duff MD Work Phone: [facility] ([facility]) Comment on above: Urgent 1-2 weeks Start: 05-31-2023 ambulatory Radha Reynolds RN Work Phone: [facility] ([facility]) Start: 05-29-2023 End: 05-29-2023 ambulatory [facility] Facility:[facility] Start: 05-25-2023 ambulatory [facility] Facility :[facility] Start: 05-25-2023 End: 05-25-2023 Subsequent hospital visit by physician Leena [facility] (Istat/3t) Work Phone: [facility] Radiology MRI Comment on above: Glioblastoma multifo rme (HCC) [C71.9] Start: 05-24-2023 End: 05-24-2023 ambulatory MILVIA HINKLE Facility:[facility] Start: 05-24-2023 End: 05-24-2023 ambulatory PATO BELTRE Facility:[facility] Start: 05-22-2023 End: 05-22-2023 ambulatory MILVIA HINKLE Facility:[facility] Start: 05-11-2023 Telephone encounter Milla soto PA-C Work Phone: Radiology Comment on above: Appointment Start: 05-08-2023 End: 05-08-2023 ambulatory ANSHUL RIGGS Facility:[facility] Start: 05-08-2023 End: 05-08-2023 [facility] Diya Murry PhD Work Phone: [facility] Psychology Comment on above: 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); Glioblastoma multiforme (HCC); Anxiety; Panic disorder without agoraphobia Start: 05-04-2023 End: 05-04-2023 ambulatory ANSHUL RIGGS Facility:[facility] Start: 05-04-2023 End: 05-04-2023 ambulatory Anshul Riggs MD Work Phone: Hematology/Oncology Comment on above: Glioblastoma multifo rme (HCC) (Primary Dx) Start: 05-04-2023 End: 05-04-2023 Patient encounter procedure Anshul Riggs MD Work Phone: [facility] Start: 04-30-2023 End: 04-30-2023 ambulatory MARTINA GUTIERREZ Facility:[facility] Start: 04-30-2023 End: 04-30-2023 ambulatory Martina Gutierrez MD Work Phone: Vascular Medicine Comment on above: S/P IVC filter (Prim ekta Dx); Recurrent deep vein thrombosis (DVT) (HCC); Glioblastoma (HCC); Hypercoagulable state (HCC) Start: 04-30-2023 End: 04-30-2023 Telemedicine consultation with patient Martina Gutierrez MD Work Phone: [facility] Start: 04-13-2023 End: 04-13-2023 ambulatory MARTINA GUTIERREZ Facility:[facility] Start: 04-09-2023 Telephone encounter Daiana Gatica liative Medicine Comment on above: Initial Consult Start: 04-04-2023 End: 04-04-2023 ambulatory ANSHUL RIGGS Facility:[facility] Start: 04-04-2023 End: 04-04-2023 Patient encounter procedure Anshul Riggs MD Work Phone: [facility] Start: 04-04-2023 End: 04-04-2023 ambulatory Anshul Riggs MD Work Phone: Hematology/Oncology Comment on above: Glioblastoma multifo rme (HCC) (Primary Dx); Anxiety Refill Request Start: 03-30-2023 Telephone encounter Sherry Winchester RN Work Phone: Hematology/Oncology Comment on above: Care Coordination (M edication question) Start: 03-27-2023 Refill Tiffany Coffman RN Hemat ology/Oncology Comment on above: Refill Request Start: 03-22-2023 Telephone encounter Tiffany Jama Hematology/Oncology Comment on above: Medication Problem Start: 03-13-2023 Telephone encounter Danica ramirez APRN.CNP Work Phone: Radiology Start: 03-07-2023 End: 03-07-2023 Refill Anshul Riggs MD Work Phone: [facility] Comment on above: Refill Request Start: 02-23-2023 ambulatory MILVIA Betancourt ity:[facility] Start: 02-23-2023 End: 02-23-2023 Subsequent hospital visit by physician [facility] (Istat/3t) Work Phone: [facility] Radiology MRI Comment on above: Glioblastoma multifo rme (HCC) [C71.9] Start: 02-07-2023 End: 02-07-2023 ambulatory Anshul Riggs MD Work Phone: Hematology/Oncology Comment on above: Glioblastoma multifo rme (HCC) (Primary Dx) Start: 02-07-2023 End: 02-07-2023 Patient encounter procedure Anshul Riggs MD Work Phone: [facility] Start: 01-18-2023 Refill Yaneth Chicas [facility] Work Phone: [facility] Comment on above: Refill Request Start: 01-09-2023 End: 01-09-2023 Refill Jamaica Haddad [facility] Work Phone: [facility] Comment on above: Refill Request Glioblastoma multifo rme (HCC) (Primary Dx); Anxiety about health; Other depression Start: 12-25-2022 Refill Jamaica Betancourt ick [facility] Work Phone: [facility] Comment on above: Refill Request Start: 12-20-2022 End: 12-20-2022 ambulatory ANSHUL RIGGS Facility:[facility] Start: 12-20-2022 End: 12-20-2022 ambulatory Anshul Riggs MD Work Phone: Hematology/Oncology Comment on above: Glioblastoma multifo rme (HCC) (Primary Dx) Start: 12-20-2022 End: 12-20-2022 Patient encounter procedure Anshul Riggs MD Work Phone: [place] Start: 12-08-2022 End: 12-08-2022 ambulatory ANSHUL RIGGS Facility:[facility] Start: 11-30-2022 End: 11-30-2022 ambulatory Anshul Riggs MD Work Phone: Hematology/Oncology Comment on above: Glioblastoma multifo rme (HCC) (Primary Dx) Start: 11-30-2022 End: 11-30-2022 Patient encounter procedure Anshul Riggs MD Work Phone: [place] Start: 11-20-2022 Refill Jamaica Betancourt ick [facility] Work Phone: [facility] Comment on above: Refill Request Start: 11-17-2022 End: 11-17-2022 ambulatory Anshul Riggs MD Work Phone: Hematology/Oncology Comment on above: Glioblastoma multifo rme (HCC) (Primary Dx) Start: 11-17-2022 End: 11-17-2022 Patient encounter procedure Anshul Riggs MD Work Phone: [facility] Start: 11-08-2022 Telephone encounter Sherry Winchester RN Work Phone: Hematology/Oncology Comment on above: Care Coordination (H ospital d/c follow up call) Care Coordination (C linical update) [employer] Start: 11-07-2022 End: 11-17-2022 ambulatory VANDANA BARKER Facility:[facility] Start: 11-07-2022 End: 11-17-2022 Subsequent hospital visit by physician Vandana Barker DO Work Phone: [facility] Start: 11-04-2022 End: 11-07-2022 Evaluation and management of inpatient TERENCE HEARD Facility:[facility] Start: 11-02-2022 Telephone encounter Sherry Winchester RN Work Phone: Hematology/Oncology Comment on above: Care Coordination (P hysical therapy) Start: 11-02-2022 End: 11-02-2022 ambulatory Anshul Riggs MD Work Phone: Hematology/Oncology Comment on above: Glioblastoma multifo rme (HCC) (Primary Dx); 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) Start: 11-02-2022 End: 11-02-2022 Patient encounter procedure Anshul Riggs MD Work Phone: [facility] Start: 10-27-2022 Telephone encounter Sherry Winchester RN Work Phone: Hematology/Oncology Comment on above: Care Coordination (E quipment questions) Start: 10-24-2022 End: 10-24-2022 Orders Only Max Chandrakant MD Work Phone: Radiation Oncology Comment on above: Brain tumor (HCC) (P rimary Dx); Left leg weakness Orders Refill Request Start: 10-23-2022 End: 10-23-2022 ambulatory MILVIA HINKLE Facility:[facility] Start: 10-20-2022 End: 10-20-2022 ambulatory Jessica Cartagena PA-C Work Phone: Hematology/Oncology Comment on above: Glioblastoma multifo rme (HCC) (Primary Dx) Start: 10-20-2022 End: 10-20-2022 Patient encounter procedure Jessica Cartagena PA-C Work Phone: [facility] Start: 10-19-2022 End: 10-19-2022 ambulatory Jenn HOLT Facility:[facility] Start: 10-19-2022 End: 10-19-2022 Patient encounter procedure Jenn Holt MD Work Phone: Radiation Oncology Comment on above: Brain tumor (HCC) (P rimary Dx) Start: 10-18-2022 End: 10-18-2022 ambulatory MILVIA HINKLE Facility:[facility] Start: 10-17-2022 End: 10-17-2022 ambulatory MILVIA HINKLE Facility:[facility] Start: 10-16-2022 End: 10-16-2022 Refill Anshul Riggs MD Work Phone: Radiation Oncology Comment on above: Patient Update; Refi ll Request Start: 10-13-2022 End: 10-13-2022 ambulatory MILVIA HINKLE Facility:[facility] Start: 10-12-2022 End: 10-12-2022 ambulatory MILVIA HINKLE Facility:[facility] Start: 10-11-2022 End: 10-11-2022 ambulatory MILVIA HINKLE Facility:[facility] Start: 10-11-2022 End: 10-11-2022 Patient encounter procedure Max Stallings MD Work Phone: Radiation Oncology Comment on above: Brain tumor (HCC) (P rimary Dx) Start: 10-10-2022 End: 10-10-2022 ambulatory MILVIA HINKLE Facility:[facility] Start: 10-09-2022 End: 10-09-2022 Refill Jamaica Haddad [facility] Work Phone: Hematology/Oncology Comment on above: Refill Request Start: 10-06-2022 End: 10-06-2022 ambulatory Jessica Cartagena PA-C Work Phone: Hematology/Oncology Comment on above: Glioblastoma multifo rme (HCC) (Primary Dx) Start: 10-06-2022 End: 10-06-2022 Patient encounter procedure Jessica Cartagena PA-C Work Phone: [facility] Start: 10-05-2022 End: 10-05-2022 Social Work Marian JEFFERSON Hematology/Oncology Start: 10-04-2022 Telephone encounter Sherry Winchester RN Work Phone: Hematology/Oncology Comment on above: Care Coordination (M edication update) Start: 10-04-2022 End: 10-04-2022 ambulatory MAX STALLINGS Facility:[facility] Start: 10-04-2022 End: 10-04-2022 Patient encounter procedure Max Stallings MD Work Phone: Radiation Oncology Comment on above: Brain tumor (HCC) (P rimary Dx) Start: 10-03-2022 End: 10-03-2022 ambulatory MILVIA HINKLE Facility:[facility] Start: 10-02-2022 End: 10-02-2022 ambulatory MILVIA HINKLE Facility:[facility] Start: 09-29-2022 End: 09-29-2022 ambulatory MILVIA HINKLE Facility:[facility] Start: 09-28-2022 End: 09-28-2022 ambulatory MILVIA HINKLE Facility:[facility] Start: 09-27-2022 Telephone encounter Anshul ghotra MD Work Phone: Radiation Oncology Comment on above: Medication Question Care Coordination (M edication question) Medication Authoriza tion (Eliquis appeal sent) Start: 09-27-2022 End: 09-27-2022 ambulatory MILVIA HINKLE Facility:[facility] Start: 09-27-2022 End: 09-27-2022 ambulatory ANSHUL RIGGS Facility:[facility] Start: 09-27-2022 End: 09-27-2022 Patient encounter procedure Max Stallings MD Work Phone: Radiation Oncology Comment on above: Brain tumor (HCC) (P rimary Dx) Start: 09-27-2022 End: 09-27-2022 ambulatory Anshul Riggs MD Work Phone: Hematology/Oncology Comment on above: Glioblastoma multifo rme (HCC) (Primary Dx) Start: 09-27-2022 End: 09-27-2022 Patient encounter procedure Anshul Riggs MD Work Phone: [place] Start: 09-26-2022 Telephone encounter Jessica ocasio PA-C Work Phone: [facility] Comment on above: Insurance Authorizat ion (Eliquis) Start: 09-26-2022 End: 09-26-2022 ambulatory MILVIA HINKLE Facility:[facility] Start: 09-25-2022 End: 09-25-2022 ambulatory MILVIA HINKLE Facility:[facility] Start: 09-22-2022 End: 09-22-2022 ambulatory MILVIA HINKLE Facility:[facility] Start: 09-21-2022 End: 09-21-2022 ambulatory MILVIA HINKLE Facility:[facility] Start: 09-20-2022 End: 09-20-2022 ambulatory MILVIA HINKLE Facility:[facility] Start: 09-20-2022 End: 09-20-2022 Patient encounter procedure Max Stallings MD Work Phone: Radiation Oncology Comment on above: Brain tumor (HCC) Start: 09-19-2022 Telephone encounter Emily Hooks [facility] Comment on above: Medication Update (U pdated meds per patient/family.) Start: 09-19-2022 End: 09-19-2022 ambulatory Jessica Cartagena PA-C Work Phone: Hematology/Oncology Comment on above: Glioblastoma multifo rme (HCC) (Primary Dx) Start: 09-19-2022 End: 09-19-2022 Patient encounter procedure Jessica Cartagena PA-C Work Phone: [facility] Start: 09-18-2022 Telephone encounter Sherry Winchester RN Work Phone: Hematology/Oncology Comment on above: Care Coordination (C 1D1 treatment follow up call) Care Coordination (M ed question) Start: 09-18-2022 End: 09-18-2022 ambulatory MILVIA HINKLE Facility:[facility] Start: 09-15-2022 End: 09-15-2022 Social Work Marian Spangler [facility] Hematology/Oncology Start: 09-14-2022 End: 09-15-2022 ambulatory MARTINA GUTIERREZ Facility:[facility] Start: 09-14-2022 End: 09-14-2022 Evaluation and management of inpatient MILVIA HINKLE Facility:[facility] Start: 09-14-2022 End: 09-14-2022 Patient encounter procedure Martina Gutierrez MD Work Phone: Vascular Medicine Comment on above: Acute deep vein thro mbosis (DVT) of left femoral vein (HCC) (Primary Dx); Personal history of DVT (deep vein thrombosis); Glioblastoma multiforme (HCC) Start: 09-14-2022 End: 09-14-2022 ambulatory MILVIA HINKLE Facility:[facility] Start: 09-13-2022 Telephone encounter Sherry Winchester RN Work Phone: Hematology/Oncology Comment on above: Care Coordination (O ral chemo) Start: 09-13-2022 End: 09-13-2022 ambulatory MILVIA HINKLE Facility:[facility] Start: 09-13-2022 End: 09-13-2022 Patient encounter procedure Max Stallings MD Work Phone: Radiation Oncology Comment on above: Brain tumor (HCC) (P rimary Dx) Start: 09-13-2022 End: 09-13-2022 Nursing evaluation of patient and report Sherry Winchester RN Work Phone: Hematology/Oncology Comment on above: Glioblastoma multifo rme (HCC) (Primary Dx) Start: 09-12-2022 End: 09-13-2022 ambulatory Anshul Riggs MD Work Phone: Hematology/Oncology Comment on above: Glioblastoma multifo rme (HCC) (Primary Dx) Start: 09-12-2022 End: 09-12-2022 Patient encounter procedure Anshul Riggs MD Work Phone: [facility] Start: 09-04-2022 Telephone encounter Shaniqua Nieto RN Hematology/Oncology Comment on above: Appointment Patient Update; Zoë ent Question Start: 08-29-2022 End: 09-11-2022 ambulatory VANDANA BARKER Facility:[facility] Start: 08-28-2022 End: 09-11-2022 Subsequent hospital visit by physician Vandana Barker DO Work Phone: [facility] Start: 08-25-2022 Patient encounter procedure Kate Gautam MD Work Phone: [facility] Start: 08-25-2022 Radiation Oncology Note Kate Gautam MD Work Phone: Radiation Oncology Comment on above: Simulation Note Treatment Planning Start: 08-25-2022 End: 08-25-2022 ambulatory KATE GAUTAM Facility:[facility] Start: 08-25-2022 End: 08-25-2022 ambulatory KATE GAUTAM Facility:[facility] Start: 08-23-2022 Orders Only Kate Gautam MD Work Phone: Radiation Oncology Comment on above: Brain tumor (HCC) (P rimary Dx) Start: 08-18-2022 End: 08-18-2022 ambulatory TERRA WILLY Facility:[facility] Start: 08-13-2022 End: 08-29-2022 Evaluation and management of inpatient YVONNEANTOINETTE FARIASA Facility:[facility] Start: 08-10-2022 Telephone encounter Umm griffith RN Work Phone: [facility] Comment on above: JACQUE post op Start: 08-10-2022 End: 08-11-2022 ambulatory TERRA AGUILERA Facility:[facility] Start: 08-08-2022 End: 08-08-2022 Evaluation and management of inpatient ROYAL VÁZQUEZ Facility:[facility] Start: 08-08-2022 End: 08-10-2022 Evaluation and management of inpatient JACKLYN MIR Facility:[facility] Start: 08-07-2022 Telephone encounter Sherry Winchester RN Work Phone: Hematology/Oncology Comment on above: Care Coordination (E R visit) Start: 08-04-2022 Telephone encounter [facility] Comment on above: Triage (Internal Ref erral) Start: 08-03-2022 Telephone encounter [facility] Comment on above: Triage (Internal) Care Coordination (N eurosurgery JACQUE) Start: 01-05-2022 End: 01-05-2022 Departed Referred MD Milvia Hinkle Work Phone: [facility] [place] Start: 04-07-2021 End: 04-08-2021 [facility] Procedures Date Procedure Procedure Detail Performing Clinician Start: 07-18-2023 Plain chest X-ray MD Phu Hinkle Work Phone: Start: 07-18-2023 SARS-CoV-2, Influenz a & RSV (PCR) MD Milvia Hinkle Work Phone: Start: 07-18-2023 Screening for occult blood in feces MD Milvia Hinkle Work Phone: Start: 05-25-2023 Mri brain brain stem w/o w/contrast material Anshul Riggs MD Work Phone: Start: 02-23-2023 Mri brain brain stem w/o w/contrast material Jessica Cartagena PA-C Work Phone: Start: 11-16-2022 Blood count complete auto&auto difrntl wbc Zulma Mccarthy [employer]ST[employer] LINING [employer]TER.DIRECTOR OF CARDIOPULMONARY SERVICES Work Phone: Start: 11-13-2022 Blood count complete auto&auto difrntl wbc Zulma Mccarthy LOCKSTITCH LINING SETTER.DIRECTOR OF CARDIOPULMONARY SERVICES Work Phone: Start: 11-09-2022 Blood count complete auto&auto difrntl wbc Zulma Mccarthy LOCKSTITCH LINING SETTER.DIRECTOR OF CARDIOPULMONARY SERVICES Work Phone: Start: 11-07-2022 Antibody screen MAX CRUZ Comment on above: Order Comment: Speci men Type: BLOOD SPECIMENOrdering Facility: [facility] Address: [address] [place] [address] Performed By: #### T SCR ####CC MAIN BLOOD BANKCLIA [id number] [address] Start: 09-11-2022 Blood count complete auto&auto difrntl wbc Zulma Mccarthy LOCKSTITCH LINING SETTER.DIRECTOR OF CARDIOPULMONARY SERVICES Work Phone: Start: 09-07-2022 Blood count complete auto&auto difrntl wbc Zulma Mccarthy LOCKSTITCH LINING SETTER.DIRECTOR OF CARDIOPULMONARY SERVICES Work Phone: Start: 09-04-2022 Blood count complete auto&auto difrntl wbc Zulma Mccarthy LOCKSTITCH LINING SETTER.DIRECTOR OF CARDIOPULMONARY SERVICES Work Phone: Start: 08-31-2022 Blood count complete auto&auto difrntl wbc Zulma Mccarthy LOCKSTITCH LINING SETTER.DIRECTOR OF CARDIOPULMONARY SERVICES Work Phone: Start: 08-10-2022 Antibody screen MAX CRUZ Comment on above: Order Comment: Speci men Type: BLOOD SPECIMENOrdering Facility: [facility] Address: [address] [place] [address] Performed By: #### T SCR30 ####CC MAIN BLOOD BANKCLIA [id number] [address] Start: 08-08-2022 Antibody screen MAX CRUZ Comment on above: Order Comment: Speci men Type: BLOOD SPECIMENOrdering Facility: [facility] Address: [address] [place] [id number] Performed By: #### T SCR ####CC MAIN BLOOD BANKCLIA [id number] KAVITA ELLIOTT [address] OF [facility] Plan of Treatment Date Care Activity Detail Author Start: 02-28-2029 Urine microalbumin profile [facility] Start: 06-29-2026 Diabetes Screening Diabetes Screening [facility] Start: 05-29-2026 Diabetes Screening Diabetes Screening [facility] Start: 05-22-2026 Diabetes Screening Diabetes Screening [facility] Start: 05-04-2026 Diabetes Screening Diabetes Screening [facility] Start: 04-04-2026 Diabetes Screening Diabetes Screening [facility] Start: 03-07-2026 DIABETES SCREEN DIABETES SCREEN [facility] Start: 01-09-2026 DIABETES SCREEN DIABETES SCREEN [facility] Start: 12-20-2025 DIABETES SCREEN DIABETES SCREEN [facility] Start: 11-30-2025 DIABETES SCREEN DIABETES SCREEN [facility] Start: 11-17-2025 DIABETES SCREEN DIABETES SCREEN [facility] Start: 11-16-2025 DIABETES SCREEN DIABETES SCREEN [facility] Start: 11-13-2025 DIABETES SCREEN DIABETES SCREEN [facility] Start: 11-07-2025 DIABETES SCREEN DIABETES SCREEN [facility] Start: 11-02-2025 DIABETES SCREEN DIABETES SCREEN [facility] Start: 10-20-2025 DIABETES SCREEN DIABETES SCREEN [facility] Start: 10-06-2025 DIABETES SCREEN DIABETES SCREEN [facility] Start: 09-27-2025 DIABETES SCREEN DIABETES SCREEN [facility] Start: 09-19-2025 DIABETES SCREEN DIABETES SCREEN [facility] Start: 09-11-2025 DIABETES SCREEN DIABETES SCREEN [facility] Start: 09-04-2025 DIABETES SCREEN DIABETES SCREEN [facility] Start: 08-31-2025 DIABETES SCREEN DIABETES SCREEN [facility] Start: 08-21-2025 DIABETES SCREEN DIABETES SCREEN [facility] Start: 08-14-2025 DIABETES SCREEN DIABETES SCREEN [facility] Start: 08-08-2025 DIABETES SCREEN DIABETES SCREEN [facility] Start: 05-29-2024 BP Controlled (<130/80) BP Controlled (<130/80) [facility] Start: 04-04-2024 BP Controlled (<130/80) BP Controlled (<130/80) [facility] Start: 03-07-2024 BP CONTROLLED (<130/80) BP CONTROLLED (<130/80) [facility] Start: 01-10-2024 BP CONTROLLED (<130/80) BP CONTROLLED (<130/80) [facility] Start: 12-01-2023 BP CONTROLLED (<130/80) BP CONTROLLED (<130/80) [facility] Start: 11-18-2023 BP CONTROLLED (<130/80) BP CONTROLLED (<130/80) [facility] Start: 10-07-2023 BP CONTROLLED (<130/80) BP CONTROLLED (<130/80) [facility] Start: 09-21-2023 BP CONTROLLED (<130/80) BP CONTROLLED (<130/80) [facility] Start: 09-19-2023 BP CONTROLLED (<130/80) BP CONTROLLED (<130/80) [facility] Start: 09-14-2023 BP CONTROLLED (<130/80) BP CONTROLLED (<130/80) [facility] Start: 06-15-2023 End: 06-16-2023 Amylase [Enzymatic activity/volume] in Serum or Plasma AMYLASE BLD Lab STAT Glioblastoma (HCC) Expected: 06/15/2023 (Approximate), Expires: 06/16/2023 [facility] Work Phone: Comment on above: Expected: 06/15/2023 (Approximate), Expi res: 06/16/2023 Start: 06-15-2023 End: 06-16-2023 aPTT in Platelet poor plasma by Coagulation assay ACTIVATED PTT Lab STAT Glioblastoma (HCC) Cerebral autosomal dominant arteriopathy with subcortical infarcts and leukoencephalopathy Expected: 06/15/2023 (Approximate), Expires: 06/16/2023 [facility] Work Phone: Comment on above: Expected: 06/15/2023 (Approximate), Expi res: 06/16/2023 Start: 06-15-2023 End: 06-16-2023 CBC W Auto Differential panel - Blood CBC + DIFF Lab STAT Glioblastoma (HCC) Expected: 06/15/2023 (Approximate), Expires: 06/16/2023 [facility] Work Phone: Comment on above: Expected: 06/15/2023 (Approximate), Expi res: 06/16/2023 Start: 06-15-2023 End: 06-16-2023 CLINICAL TRIAL DRAW CLINICAL TRIAL DRAW Lab STAT Glioblastoma (HCC) Expected: 06/15/2023 (Approximate), Expires: 06/16/2023 [facility] Work Phone: Comment on above: Expected: 06/15/2023 (Approximate), Expi res: 06/16/2023 Start: 06-15-2023 End: 06-16-2023 Comprehensive metabolic 2000 panel - Serum or Plasma COMP METABOLIC PANEL Lab STAT Glioblastoma (HCC) Expected: 06/15/2023 (Approximate), Expires: 06/16/2023 [facility] Work Phone: Comment on above: Expected: 06/15/2023 (Approximate), Expi res: 06/16/2023 Start: 06-15-2023 End: 06-16-2023 Lipase [Enzymatic activity/volume] in Serum or Plasma LIPASE BLD Lab STAT Glioblastoma (HCC) Expected: 06/15/2023 (Approximate), Expires: 06/16/2023 [facility] Work Phone: Comment on above: Expected: 06/15/2023 (Approximate), Expi res: 06/16/2023 Start: 06-15-2023 End: 06-16-2023 PT panel - Platelet poor plasma by Coagulation assay PROTHROMBIN TIME/PT Lab STAT Glioblastoma (HCC) Other specified disorders of central nervous system Expected: 06/15/2023 (Approximate), Expires: 06/16/2023 [facility] Work Phone: Comment on above: Expected: 06/15/2023 (Approximate), Expi res: 06/16/2023 Start: 06-15-2023 End: 06-16-2023 URINALYSIS, DIPSTICK ONLY URINALYSIS, DIPSTICK ONLY Lab STAT Glioblastoma (HCC) Expected: 06/15/2023 (Approximate), Expires: 06/16/2023 [facility] Work Phone: Comment on above: Expected: 06/15/2023 (Approximate), Expi res: 06/16/2023 Start: 06-11-2023 End: 09-10-2023 Basic metabolic 2000 panel - Serum or Plasma BASIC METABOLIC PNL Lab Routine Presence of IVC filter Expected: 06/11/2023 (Approximate), Expires: 09/10/2023 [facility] Work Phone: Comment on above: Expected: 06/11/2023 (Approximate), Expi res: 09/10/2023 Start: 06-11-2023 End: 09-10-2023 CBC W Auto Differential panel - Blood CBC + DIFF Lab Routine Presence of IVC filter Expected: 06/11/2023 (Approximate), Expires: 09/10/2023 [facility] Work Phone: Comment on above: Expected: 06/11/2023 (Approximate), Expi res: 09/10/2023 Start: 06-11-2023 End: 09-10-2023 PT panel - Platelet poor plasma by Coagulation assay PROTHROMBIN TIME/PT Lab Routine Presence of IVC filter Expected: 06/11/2023 (Approximate), Expires: 09/10/2023 [facility] Work Phone: Comment on above: Expected: 06/11/2023 (Approximate), Expi res: 09/10/2023 Start: 05-29-2023 End: 07-29-2023 CBC W Auto Differential panel - Blood CBC + DIFF Lab Routine Glioblastoma multiforme (HCC) Expected: 05/29/2023, Expires: 07/29/2023 [facility] Work Phone: Comment on above: Expected: 05/29/2023, Expires: Start: 05-29-2023 End: 07-29-2023 Comprehensive metabolic 2000 panel - Serum or Plasma COMP METABOLIC PANEL Lab Routine Glioblastoma multiforme (HCC) Expected: 05/29/2023, Expires: 07/29/2023 [facility] Work Phone: Comment on above: Expected: 05/29/2023, Expires: Start: 05-04-2023 End: 07-04-2023 CBC W Auto Differential panel - Blood CBC + DIFF Lab Routine Glioblastoma multiforme (HCC) Expected: 05/04/2023 (Approximate), Expires: 07/04/2023 [facility] Work Phone: Comment on above: Expected: 05/04/2023 (Approximate), Expi res: 07/04/2023 Start: 05-04-2023 End: 07-04-2023 Comprehensive metabolic 2000 panel - Serum or Plasma COMP METABOLIC PANEL Lab Routine Glioblastoma multiforme (HCC) Expected: 05/04/2023 (Approximate), Expires: 07/04/2023 [facility] Work Phone: Comment on above: Expected: 05/04/2023 (Approximate), Expi res: 07/04/2023 Start: 05-04-2023 End: 05-03-2024 Mri brain brain stem w/o w/contrast material MRI BRAIN WO/W IVCON Radiology Routine Glioblastoma multiforme (HCC) Expected: 05/04/2023 (Approximate), Expires: 05/03/2024 [facility] Work Phone: Comment on above: Expected: 05/04/2023 (Approximate), Expi res: 05/03/2024 Start: 03-23-2023 Covid-19 Vaccine ( season) Covid-19 Vaccine ( season) [facility] Start: 03-23-2023 Influenza vaccination [facility] Start: 03-07-2023 End: 05-07-2023 CBC W Auto Differential panel - Blood CBC + DIFF Lab Routine Glioblastoma multiforme (HCC) Expected: 03/07/2023 (Approximate), Expires: 05/07/2023 [facility] Work Phone: Comment on above: Expected: 03/07/2023 (Approximate), Expi res: 05/07/2023 Start: 03-07-2023 End: 05-07-2023 Comprehensive metabolic 2000 panel - Serum or Plasma COMP METABOLIC PANEL Lab Routine Glioblastoma multiforme (HCC) Expected: 03/07/2023 (Approximate), Expires: 05/07/2023 [facility] Work Phone: Comment on above: Expected: 03/07/2023 (Approximate), Expi res: 05/07/2023 Start: 02-08-2023 End: 02-08-2024 Mri brain brain stem w/o w/contrast material MRI BRAIN WO/W IVCON Radiology Routine Glioblastoma multiforme (HCC) Expected: 02/08/2023 (Approximate), Expires: 02/08/2024 [facility] Work Phone: Comment on above: Expected: 02/08/2023 (Approximate), Expi res: 02/08/2024 Start: 01-10-2023 End: 03-12-2023 CBC W Auto Differential panel - Blood CBC + DIFF Lab Routine Glioblastoma multiforme (HCC) Expected: 01/10/2023 (Approximate), Expires: 03/12/2023 [facility] Work Phone: Comment on above: Expected: 01/10/2023 (Approximate), Expi res: 03/12/2023 Start: 01-10-2023 End: 03-12-2023 Comprehensive metabolic 2000 panel - Serum or Plasma COMP METABOLIC PANEL Lab Routine Glioblastoma multiforme (HCC) Expected: 01/10/2023 (Approximate), Expires: 03/12/2023 [facility] Work Phone: Comment on above: Expected: 01/10/2023 (Approximate), Expi res: 03/12/2023 Start: 12-21-2022 End: 02-20-2023 CBC W Auto Differential panel - Blood CBC + DIFF Lab Routine Glioblastoma multiforme (HCC) Expected: 12/21/2022 (Approximate), Expires: 02/20/2023 [facility] Work Phone: Comment on above: Expected: 12/21/2022 (Approximate), Expi res: 02/20/2023 Start: 12-21-2022 End: 02-20-2023 Comprehensive metabolic 2000 panel - Serum or Plasma COMP METABOLIC PANEL Lab Routine Glioblastoma multiforme (HCC) Expected: 12/21/2022 (Approximate), Expires: 02/20/2023 [facility] Work Phone: Comment on above: Expected: 12/21/2022 (Approximate), Expi res: 02/20/2023 Start: 12-01-2022 End: 01-31-2023 CBC W Auto Differential panel - Blood CBC + DIFF Lab Routine Glioblastoma multiforme (HCC) Expected: 12/01/2022 (Approximate), Expires: 01/31/2023 [facility] Work Phone: Comment on above: Expected: 12/01/2022 (Approximate), Expi res: 01/31/2023 Start: 12-01-2022 End: 01-31-2023 Comprehensive metabolic 2000 panel - Serum or Plasma COMP METABOLIC PANEL Lab Routine Glioblastoma multiforme (HCC) Expected: 12/01/2022 (Approximate), Expires: 01/31/2023 [facility] Work Phone: Comment on above: Expected: 12/01/2022 (Approximate), Expi res: 01/31/2023 Start: 11-16-2022 End: 01-16-2023 CBC W Auto Differential panel - Blood CBC + DIFF Lab Routine Glioblastoma multiforme (HCC) Expected: 11/16/2022 (Approximate), Expires: 01/16/2023 [facility] Work Phone: Comment on above: Expected: 11/16/2022 (Approximate), Expi res: 01/16/2023 Start: 11-16-2022 End: 01-16-2023 Comprehensive metabolic 2000 panel - Serum or Plasma COMP METABOLIC PANEL Lab Routine Glioblastoma multiforme (HCC) Expected: 11/16/2022 (Approximate), Expires: 01/16/2023 [facility] Work Phone: Comment on above: Expected: 11/16/2022 (Approximate), Expi res: 01/16/2023 Start: 11-16-2022 End: 12-02-2023 Mri brain brain stem w/o w/contrast material MRI BRAIN WO/W IVCON Radiology Routine Glioblastoma multiforme (HCC) Expected: 11/16/2022, Expires: 12/02/2023 [facility] Work Phone: Comment on above: Expected: 11/16/2022, Expires: 4 Start: 11-16-2022 End: 01-16-2023 Thyrotropin [Units/volume] in Serum or Plasma TSH BLD Lab Routine Glioblastoma multiforme (HCC) 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) Expected: 11/16/2022 (Approximate), Expires: 01/16/2023 [facility] Work Phone: Comment on above: Expected: 11/16/2022 (Approximate), Expi res: 01/16/2023 Start: 10-20-2022 End: 12-20-2022 CBC W Auto Differential panel - Blood CBC + DIFF Lab Routine Glioblastoma multiforme (HCC) Expected: 10/20/2022, Expires: 12/20/2022 [facility] Work Phone: Comment on above: Expected: 10/20/2022, Expires: 3 Start: 10-20-2022 End: 12-20-2022 Comprehensive metabolic 2000 panel - Serum or Plasma COMP METABOLIC PANEL Lab Routine Glioblastoma multiforme (HCC) Expected: 10/20/2022, Expires: 12/20/2022 [facility] Work Phone: Comment on above: Expected: 10/20/2022, Expires: 3 Start: 10-06-2022 End: 12-06-2022 CBC W Auto Differential panel - Blood CBC + DIFF Lab Routine Glioblastoma multiforme (HCC) Expected: 10/06/2022, Expires: 12/06/2022 [facility] Work Phone: Comment on above: Expected: 10/06/2022, Expires: 3 Start: 10-06-2022 End: 12-06-2022 Comprehensive metabolic 2000 panel - Serum or Plasma COMP METABOLIC PANEL Lab Routine Glioblastoma multiforme (HCC) Expected: 10/06/2022, Expires: 12/06/2022 [facility] Work Phone: Comment on above: Expected: 10/06/2022, Expires: Start: 10-04-2022 End: 12-04-2022 CBC W Auto Differential panel - Blood CBC + DIFF Lab Routine Glioblastoma multiforme (HCC) Expected: 10/04/2022 (Approximate), Expires: 12/04/2022 [facility] Work Phone: Comment on above: Expected: 10/04/2022 (Approximate), Expi res: 12/04/2022 Start: 10-04-2022 End: 12-04-2022 Comprehensive metabolic 2000 panel - Serum or Plasma COMP METABOLIC PANEL Lab Routine Glioblastoma multiforme (HCC) Expected: 10/04/2022 (Approximate), Expires: 12/04/2022 [facility] Work Phone: Comment on above: Expected: 10/04/2022 (Approximate), Expi res: 12/04/2022 Start: 09-19-2022 End: 11-19-2022 CBC W Auto Differential panel - Blood [facility] Work Phone: Comment on above: Expected: 09/19/2022 (Approximate), Expi res: 11/19/2022 Expected: 09/19/2022 , Expires: 11/19/2022 Start: 09-19-2022 End: 11-19-2022 Comprehensive metabolic 2000 panel - Serum or Plasma [facility] Work Phone: Comment on above: Expected: 09/19/2022 (Approximate), Expi res: 11/19/2022 Expected: 09/19/2022 , Expires: 11/19/2022 Start: 07-23-2022 ADVANCE DIRECTIVE DISCUSSION ADVANCE DIRECTIVE DISCUSSION [facility] Start: 07-23-2022 DEPRESSION ASSESSMENT DEPRESSION ASSESSMENT [facility] Start: 03-23-2022 Influenza vaccination INFLUENZA (#1) [facility] Start: 01-17-2022 COVID-19 VACCINE (5 - Booster for Pfizer series) COVID-19 VACCINE (5 - Booster for Pfizer series) [facility] Start: 01-17-2022 COVID-19 VACCINE (5 - Pfizer risk series) COVID-19 VACCINE (5 - Pfizer risk series) [facility] Start: 05-29-2014 SHINGRIX VACCINE (1 of 2) SHINGRIX VACCINE (1 of 2) [facility] Start: 05-29-2014 SHINGRIX VACCINE (2 of 3) SHINGRIX VACCINE (2 of 3) [facility] Start: 01-08-2008 BONE DENSITY BONE DENSITY [facility] Start: 01-08-2008 Bone Density Screening Bone Density Screening [facility] Start: 01-08-2008 PNEUMOCOCCAL: 65+ (1 - PCV) PNEUMOCOCCAL: 65+ (1 - PCV) [facility] Start: 01-08-2008 Screening for osteoporosis Bone Density Screening [facility] Start: 2003 RSV Vaccine (1 - 1-dose 60+ series) RSV Vaccine (1 - 1-dose 60+ series) [facility] Start: 1993 SHINGRIX VACCINE (1 of 2) SHINGRIX VACCINE (1 of 2) [facility] Start: 01-08-1988 DIABETES SCREEN DIABETES SCREEN [facility] Start: 1962 Urine microalbumin profile DTAP,TDAP,TD (1 - Tdap) [facility] Start: 1961 ANNUAL PCP TEAM CHRONIC DISEASE VISIT ANNUAL PCP TEAM CHRONIC DISEASE VISIT [facility] Start: 1961 BP CONTROLLED (<130/80) BP CONTROLLED (<130/80) [facility] Start: 1943 COVID-19 VACCINE (#1) COVID-19 VACCINE (#1) [facility] End: 06-17-2024 CBC W Auto Differential panel - Blood CBC + DIFF Lab STAT Glioblastoma (HCC) Once per week for 6 Occurrences starting 06/18/2023 until 06/17/2024 [facility] Work Phone: Comment on above: Once per week for 6 Occurrences starting 06/18/2023 until 06/17/2024 End: 06-17-2024 Comprehensive metabolic 2000 panel - Serum or Plasma COMP METABOLIC PANEL Lab STAT Glioblastoma (HCC) Once per week for 6 Occurrences starting 06/18/2023 until 06/17/2024 [facility] Work Phone: Comment on above: Once per week for 6 Occurrences starting 06/18/2023 until 06/17/2024 CT SIM PLANNING RADIATION ONCOLOGY CT SIM PLANNING RADIATION ONCOLOGY Radiology Routine Brain tumor (HCC) Ordered: 08/24/2022 [facility] Work Phone: Comment on above: Ordered: 08/24/2022 End: 06-08-2024 ECG COMPLETE ECG COMPLETE ECG Routine Glioblastoma (HCC) 1 Occurrences starting 06/09/2023 until 06/08/2024 [facility] Work Phone: Comment on above: 1 Occurrences starting 06/09/2023 until 06/08/2024 IR IVC FILTER REMOVAL IR IVC MARY TER REMOVAL Radiology Routine S/P IVC filter Ordered: 05/07/2023 [facility] Work Phone: Comment on above: Ordered: 05/07/2023 End: 12-13-2023 Mri brain brain stem w/o w/contrast material MRI BRAIN WO/W IVCON Radiology Routine Glioblastoma multiforme (HCC) 1 Occurrences starting 11/13/2022 until 12/13/2023 [facility] Work Phone: Comment on above: 1 Occurrences starting 11/13/2022 until 12/13/2023 End: 07-06-2024 Mri brain brain stem w/o w/contrast material MRI BRAIN WO/W IVCON Radiology Routine Glioblastoma (HCC) 1 Occurrences starting 06/07/2023 until 07/06/2024 [facility] Work Phone: Comment on above: 1 Occurrences starting 06/07/2023 until 07/06/2024 End: 07-17-2024 Mri brain brain stem w/o w/contrast material MRI BRAIN WO/W IVCON Radiology Routine Glioblastoma (HCC) 1 Occurrences starting 06/18/2023 until 07/17/2024 [facility] Work Phone: Comment on above: 1 Occurrences starting 06/18/2023 until 07/17/2024 Patient Education Generalized Weakness [facility] Work Phone: Patient referral [facility] Work Phone: End: 07-17-2024 SPIROMETRY BASELINE ONLY SPIROMETRY BASELINE ONLY PFT Routine Glioblastoma (HCC) 1 Occurrences starting 06/18/2023 until 07/17/2024 [facility] Work Phone: Comment on above: 1 Occurrences starting 06/18/2023 until 07/17/2024 End: 09-14-2023 US LEG VEIN DVT [facility] US LEG VEIN DVT [facility] Vascular Lab Routine Personal history of DVT (deep vein thrombosis) 1 Occurrences starting 09/14/2022 until 09/14/2023 [facility] Work Phone: Comment on above: 1 Occurrences starting 09/14/2022 until 09/14/2023 [facility] Immunizations Immunization Date Immunization Notes Care Provider [facility] 04-24-2022 influenza, high-dose , quadrivalent vaccine (FLUZONE HIGH DOSE QUADRIVALENT) Anshul Riggs MD Work Phone: [facility] 04-24-2022 influenza virus vacc ine, unspecified formulation Anshul Riggs MD Work Phone: [facility] 11-22-2021 COVID-19 original vaccine, full dose, monovalent (MODERNA) Anshul Riggs MD Work Phone: [facility] 06-20-2021 COVID-19 original vaccine, age 12+ yr, monovalent (PFIZER-[employer] - PURPLE TOP) Anshul Riggs MD Work Phone: [facility] 05-03-2021 influenza (aIIV4) vaccine, age 65+ yr, quadrivalent, PF (FLUAD QUADRIVALENT) Anshul Riggs MD Work Phone: [facility] 09-16-2020 COVID-19 original vaccine, age 12+ yr, monovalent (PFIZER-[employer] - PURPLE TOP) Anshul Riggs MD Work Phone: [facility] 08-19-2020 COVID-19 original vaccine, age 12+ yr, monovalent (PFIZER-[employer] - PURPLE TOP) Anshul Riggs MD Work Phone: [facility] 03-23-2020 influenza, high-dose , quadrivalent vaccine (FLUZONE HIGH DOSE QUADRIVALENT) Anshul Riggs MD Work Phone: [facility] 05-01-2019 influenza, injectabl e, quadrivalent, preservative free Anshul Riggs MD Work Phone: [facility] 04-30-2019 influenza, high dose seasonal, preservative-free Anshul Riggs MD Work Phone: [facility] 02-28-2019 tetanus toxoid, redu shae diphtheria toxoid, and acellular pertussis vaccine, adsorbed Anshul Riggs MD Work Phone: [facility] 04-04-2017 influenza, high dose seasonal, preservative-free Anshul Riggs MD Work Phone: [facility] 05-04-2016 influenza, injectabl e, quadrivalent, preservative free Anshul Riggs MD Work Phone: [facility] 03-18-2015 influenza, injectabl e, quadrivalent, preservative free Anshul Riggs MD Work Phone: [facility] 03-17-2015 influenza, high dose seasonal, preservative-free Anshul Riggs MD Work Phone: [facility] 11-20-2014 pneumococcal conjuga te vaccine, 13 valent Anshul Riggs MD Work Phone: [facility] 04-03-2014 zoster vaccine, live Anshul munoz MD Work Phone: [facility] 03-23-2014 influenza, injectabl e, quadrivalent, preservative free Anshul Riggs MD Work Phone: [facility] 04-24-2013 influenza, high dose seasonal, preservative-free Anshul Riggs MD Work Phone: [facility] 04-24-2013 influenza, seasonal, injectable, preservative free Anshul Riggs MD Work Phone: [facility] 06-15-2011 influenza, seasonal, injectable, preservative free Anshul Riggs MD Work Phone: [facility] 06-15-2011 pneumococcal polysaccharide vaccine, 23 valent Anshul Riggs MD Work Phone: [facility] 08-15-2008 tetanus and diphther ia toxoids, adsorbed, preservative free, for adult use (5 Lf of tetanus toxoid and 2 Lf of diphtheria toxoid) Anshul Riggs MD Work Phone: [facility] Payers Date Payer Category Payer Self-pay [id number] 2020 Unknown [id number] 2007 Medicare MEDICARE MEDICAR E A AND B [id number] 2007-Present [phone] [place] [address] Medicare [id number] 1959 Medicare [id number] 1959 Unknown [id number] 1943 Unknown [id number] Unknown [facility] Health Claims [id number] Unknown [id number] Social History Date Type Detail Facility Tobacco smoking status OKIS Unknown if ever smoked [facility] Work Phone: Start: 1945 Sex Assigned At Female [facility] Tobacco smoking status OKIS Tobacco smoking consumption unknown [facility] Work Phone: Start: 1945 Sex Assigned At Not on file [facility] Start: 08-07-2022 End: 07-18-2023 Tobacco smoking status OKIS Never smoked tobacco [facility] Start: 08-07-2022 End: 06-15-2023 Alcohol intake Ex-drinker (finding) [facility] Start: 09-12-2022 End: 01-09-2023 Tobacco use and exposure Smokeless tobacco non-user [facility] Start: 09-12-2022 End: 11-06-2022 Alcohol intake [facility] Start: 09-12-2022 Alcohol Comment 1 glass per day [facility] Start: 11-06-2022 History SDOH Financial 5 [facility] Start: 11-06-2022 History SDOH Food Worry 1 [facility] Start: 11-06-2022 History SDOH Transport Med 2 [facility] Start: 11-06-2022 End: 02-07-2023 Tobacco use panel [facility] How hard is it for you to pay for the very basics like food, housing, medical care, and heating Not hard at all [facility] (I/We) worried whether (my/our) food would run out before (I/we) got money to buy more. Never true [facility] In the past 12 months, was there a time when you were not able to pay the mortgage or rent on time? No [facility] NEGATED: Highlighted rowStart: NINF History of tobacco use Passive smoker [facility] Medical Equipment Procedure Code Equipment Code Equipment Origin al Text Equipment Identifier Dates Plate Low Profil e Titanium 12mm Bone 2 Hole Bar 1.5mm Screw Nonsterile - [id number] Start: 08-14-2022 Screw Bone Unive rsal Neuro 3 4mm 1.5mm Self Drill Axial Stability Latex - [id number] Start: 08-14-2022 System Option 6. 5fr 0-32mm 5fr 70cm Embolic Protection Filter Kit - [id number] Start: 08-18-2022 Clinical Notes 08-01-2022 to 07-25-2023 Telephone Encounter - Yaneth Chicas RPh - 06/29/2023 10:25 AM ESTSDariela solares LSW - 06/25/2023 1:24 PM ESTTelephone Encounter - Abigail Cruz RN - 06/23/2023 9:32 AM ESTPatient Instructions Note Date & Type Note Facility 07-25-2023 Note HNO ID: [id number] Author: Anshul Riggs MD Service: ? Author Type: Physician Type: Progress Notes Filed: 07/25/2023 5:02 PM Note Text: II spoke to her daughters regarding her prognosis and also hospice care. Will see her on Sunday t o further discuss [facility] 07-10-2023 Note [facility] 06-29-2023 Note [facility] 06-29-2023 Miscellaneous Notes Mr. Mae stopped in pharmacy to inquire about assistance for Gleostine. Currently all grants for glioblastoma are closed. [facility] PAP application initiated and signed by Marilin. Mr. Mae stated he will drop off 2021 tax returns. Her next dose is due 08/03/23. Once we have tax returns, we will fax application. Yaneth Chicas RPh documented in this encounter [facility] 06-25-2023 Note [facility] 06-25-2023 History of Present illness Narrative Social Work Problem Referral Note INFORMATION/REFERRAL : Marilin Mae 78 year old female was [facility] by physician - [facility] for the following reason(s): home care IMPRESSION/PLAN: SW received referral from Dr. Martins sharing that home care orders were sent to [facility] Home care on behalf of pt. [facility] home care does not service pt's area, and shared that pt has been connected with [facility] in the past. SW printed and faxed pt's needed information and home health orders to [facility] for review. SW provided update to pt's regional social insurance adviser, Marian UREÑA. SW received fax that forms were faxed successfully to [facility]. F/U APPOINTMENT: PRN Assigned SW listed in Care Team tab: Yes, LI Bartlett documented in this encounter [facility] 06-23-2023 Miscellaneous Notes Thank you for the referral of your patient to [facility]. Unfortunately, we have to decline the referral as your patient lives outside our service area. Thank you, Abigail Cruz RN 06/23/2023 9:33 AM documented in this encounter [facility] 06-22-2023 Miscellaneous Notes Labs drawn 05/29/2023 and results reviewed. Per Dr. Martins proceed with cycle #1 160 mg, 90mg/m2 x BSA 1.76 = 158.4mg. Will check labs again at week 3: 07/11/23, week 4: 07/18/23, week 5: 07/25/23 and week 6: 08/01/23 Plan to start next cycle #2 beginning 08/02/2023 if all is well. documented in this encounter [facility] 06-18-2023 Note [facility] 06-18-2023 Note [facility] 06-18-2023 Note [facility] 06-18-2023 Note [facility] 06-18-2023 History of Present illness Narrative [facility] received prescription(s) for Gleostine from Dr. Martins's office. Benefits investigation was conducted, indicating that a prior authorization is not required at this time per patient's plan with [employer]. Prescriptions will now be processed through [facility] for determination of next steps. Sary Ziegler (Pocketed Spring Machine Operator) Addendum June 18, 2023 5:50 PM : First copay is high (>$887) due to the different phases of patient's traditional Medicare part D plan. It is estimated that the patient's copays will be somewhat similar until (s)he gets through the medicare coverage gap (can take up to ~$3700) after which future fills are expected to be ~$90 monthly thereafter. There is no funding available for patients diagnosis at this time. Patient will be referred to [facility] Assistance [facility]. Note will be update once pt is contacted. Lyudmila Brown, PharmD Clinical Pharmacist, Oncology [facility] P: , F: Pool: P [facility] Pool #: [id number] documented in this encounter [facility] 06-15-2023 Note [facility] 06-15-2023 Instructions Adolfo Martins MD, PhD - 06/15/2023 11:30 AM EST Steroids: change dose to 2mg daily x 1 week then 2mg every other day Lung test before starting chemotherapy (PFTs) Lomustine chemotherapy Lasix (water pill) -- 20mg daily Celexa (citalopram) increase to 1 and a half tablets daily (from 1 tab daily) MRI in July documented in this encounter [facility] 06-15-2023 History of Present illness Narrative Images from the original note were not included. [facility] New Patient Consultation Referred by Anshul Riggs [address] [place] [address] Diagnosis: Glioblastoma, WHO Grade 4, IDHwt, MGMT hypermethylated, EGFR amplified Treatments Received: Surgery: 08/14/2022, R parietal craniotomy, NTR, Dr. Mir Radiation: 09/13-10/24/2022, 60Gy in 30#, concurrent w/ 75mg/m2 of TMZ Chemotherapy: 11/08/2022 - 04/04/2023 completed 6 cycles of adjuvant TMZ Subjective History of Present Illness: Ms. Mae is a 78 year old left handed FEMALE, consulted to neuro-oncology for progressive glioblastoma. Her medical condition is complicated by HTN, HLD, post-op DVT/SDH (previously had IVC filter, now removed, and on apixaban), arthritis, cataracts. 08/03/2022: Noted first symptoms of dysequilibrium and unsteadiness with left sided weakness, and underwent MRI brain on 08/08/2022, which revealed multicentric 3.3 x 3 x 3cm lesion in the high R parietal region and 2.8 x 2.6 x 1.8 cm R P-O ring enhancing lesion. L arm started doing wild things . No vision changes noted at that time. 08/12/2022: Worsening L sided weakness prompted CT brain revealing 2.5cc intralesional hemorrhage 08/14/2022: Underwent surgery for NTR of multifocal lesion by Dr. Mir at [facility]. 09/13-10/24/2022: Concurrent 6 weeks TMZ and chemotherapy completed 11/08/2022 - 04/04/2023: Completed 6 cycles of adjuvant TMZ on 04/04/2023. States that she tolerated TMZ without significant issue. 05/25/2023: Follow up MRI brain concerning for progression. 06/15/2023: She is accompanied today with her family, and states that she has been doing okay over the past few weeks. She feels that her left side is now weaker compared to a few weeks ago, and that her general mobility has declined. She is nonambulatory at this time essentially wheelchair dependent. She does have dependent edema in the left leg. States that her balance is off , and requires assistance with almost all basic ADLs. She states that in the home her set up is such that she is able to accomplish her daily tasks with assistance. She reports no headaches, though perhaps intermittent pain at times in the morning. These are not accompanied by any nausea. She has had no seizures, and notes no episodes concerning for seizures. No speech or swallow concerns. No new vision changes. No other new focal neurologic deficits. She is presently on 4 mg 3 times a week of dexamethasone, and has had no change in symptoms as this medication has been down titrated. She follows with local oncologist, and was referred for consideration of clinical trial after discussion at our multidisciplinary tumor board. Therapy Status Data Form Past Medical History: PAST MEDICAL HISTORY Diagnosis Date Arthritis Brain mass 2021 Cataracts, bilateral Family history of cancer History of blood clots HTN (hypertension) Hyperlipidemia Past Surgical History: PAST SURGICAL HISTORY Procedure Laterality Date COLONSCOPY SCREENING HIGH RISK TOTAL ABDOM HYSTERECTOMY TOTAL KNEE REPLACEMENT Right 2012 TOTAL KNEE REPLACEMENT Left 2013 Family History: FAMILY HISTORY Problem Relation Age of Onset Stroke Mother Social History Tobacco Use Smoking status: Never Passive exposure: Never Smokeless tobacco: Never Vaping Use Vaping Use: Never used Substance Use Topics Alcohol use: Not Currently Alcohol/week: 1.0 standard drink of alcohol Types: 1 Glasses of wine per week Comment: 1 glass per day Drug use: Never Allergies: Pantoprazole Current Outpatient Medications Medication Sig dexAMETHasone (DECADRON) 2 mg tablet Take 1 tablet by mouth daily with breakfast. furosemide (LASIX) 20 mg tablet Take 1 tablet by mouth two times a day. TAKE 60MG (3 X 20MG TABLETS) TWICE DAILY. lisinopril (ZESTRIL) 10 mg tablet Take 1 tablet by mouth once daily. methylphenidate (RITALIN) 5 mg tablet Take 2 tablets by mouth once daily for 30 days. citalopram (CELEXA) 20 mg tablet Take 1 tablet by mouth once daily. dexAMETHasone (DECADRON) 4 mg tablet Take 1 tablet by mouth daily with breakfast. famotidine (PEPCID) 20 mg tablet Take 1 tablet by mouth twice daily in the morning and before bedtime. temozolomide (TEMODAR) 20 mg capsule Take 1 capsule (20 mg) by mouth once daily with 1 other temozolomide prescription for 270 mg total. Temozolomide 250 mg capsule Take 1 capsule (250 mg) by mouth once daily with 1 other Temozolomide prescription for 270 mg total. granisetron HCl (KYTRIL) 1 mg tablet Take 1 tablet by mouth 1 hour prior to temozolomide dose to prevent nausea, may take an additional dose in the am if needed apixaban (ELIQUIS) 5 mg tab(s) Take 1 tablet (5 mg total) by mouth in the morning and 1 tablet (5 mg total) before bedtime. Do all this for 30 days. Indications: Blood Clot in a Deep Vein. aluminum-magnesium hydroxide-simethicone 200-200-20 mg/5 mL suspension Take 30 mL by mouth every 6 hours as needed. No current facility-administered medications for this visit. Review of systems: Constitutional: No recent fever or weight loss. Eyes: No history of glaucoma or cataracts. ENMT: No recent ear infection, nasal congestion, mouth sores or sore throat. CV: No history of chest pain, palpitations or leg swelling. Respiratory: No history of SOB, asthma or recent cough. Gastrointestinal: No history of nausea, vomiting, dysphagia or abdominal pain. Genitourinary: No history of hematuria or dysuria. Musculoskeletal: No complaint of arthritis, unstable gait or arm/leg weakness. Psychiatric: No history of hallucinations or depression or anxiety. ROS Neurological: -headache. -tinnitus. -decreased hearing. -diplopia. -decreased visual acuity. -arm/leg numbness. +problems with limb coordination. -syncope -seizures -disorientation Objective Physical Exam: BP 156/77 Pulse 74 Temp (Src) 98.2 (Oral) Resp 18 Ht [unable to stand[ (0.00m) Wt 0 lb (0.0kg) SpO2 96% General appearance: Seen in clinic, accompanied by family members. Appears well, in no acute distress, alert and conversant Head: Atraumatic Eyes: clear, anicteric Oropharynx: clear, no lesions. No sign of thrush. Neck: supple, no cervical/pre-/post-auricular, supra/infra-clavicular LAD Lungs: CTA bilaterally, no wheezes or crackles. No sign of peripheral or central cyanosis. Heart: N S1 S2, RR without murmur noted Extremities: warm, no cyanosis. Significant asymmetric dependent edema left greater than right, pitting to the knees bilaterally. Skin: color and turgor unremarkable. There was moderate dry skin and bilateral lower extremities. No rashes or lesions. Complete neurologic examination: Inspection: Facies: Unremarkable. Mental status: Behaviour: Appropriate Orientation: Oriented to date, person, location, and reason for consultation Affect: Appropriate, though generally flat Memory: Intact given conversation Concentration: Intact given conversation Language: Naming: Intact Fluency: Normal Comprehension: Able to understand multistep commands Repetition: Intact Phonation/Respiration: Able to normally inhale and , no vocal tremor Knejiv-[id number]-dfcporgusv articulation: Able to repeat the syllables /pa/ /ta/ and /ka/ normally. Cranial Nerves: I: Deferred examination II: Visual acuity grossly normal bilaterally, Visual patel full to confrontation on bedside testing, Funduscopy: Deferred. Pupils equal round, reactive to light bilaterally. III/IV/: Extraocular movements intact throughout, no nystagmus, consentual light reflex present; no RAPD V: Facial sensation intact and equal bilaterally VII: Facial movements symmetric; no facial droop or ptosis, Eye moisture appears appropriate. VIII: Hearing intact to finger rub bilaterally IX, X: Symmetric evaluation of palate, Gag reflex deferred XI: Shoulder shrug and sternocleidomastoid strength full bilaterally XII: Symmetric protrusion of tongue; symmetric lateral motion of tongue bilaterally Motor: Inspection: Normal bulk, No atrophy, No fasciculations noted throughout. No tremor at rest. Tone: Increased tone in the left upper and lower extremities, there is some clenching of the left hand, there appears to be an action induced perhaps dystonic tremor in the left upper extremity. Bradykinesia: Rapid finger movements: Markedly slowed on the left compared to right Power: Left-sided pronator drift Muscle (Innervation) Left Right Deltoid (C5-6, Axillary n.) 4/5 5/5 Brachioradialis (C5-6, Radial n.) 4/5 5/5 Biceps (C5-6, Musculocutaneous n.) 4+/5 5/5 Triceps (C6-8, Radial n.) 4/5 5/5 Wrist extensors (C6-8, Radial n.) 4/5 5/5 Wrist flexors (C6-7, Median/Ulnar n.) 4/5 5/5 Digit Extensors (C6-8, Radial n.) 4/5 5/5 Digit flexors (C7-T1) 4/5 5/5 Finger abductors (C8, T1) 4/5 5/5 Hip Flexors 3/5 4-/5 Knee Flexion 4/5 4/5 Knee Extension 4/5 4/5 Foot Dorsiflexion 3/5 4/5 Foot Plantarflexion 3/5 4/5 Extensor Hallucis 3/5 4/5 Reflexes: Muscle (Innervation) Left Right Biceps 3+ 2+ Triceps 2+ 2+ Brachioradialis 3+ 2+ Patellar tendon 3+ 2+ Ankle 2+ 2+ Ankle clonus Not present Not present Tromner's sign Negative Negative Oliva's sign Negative Negative Cerebellar testing: [id number]-zm-Bjte: No dysmetria Ocular saccades: Smooth pursuit bilaterally, no ocular dysmetria Gait: Ability to rise from chair unassisted: no Sensory Examination: Light touch: Intact symmetrically throughout Karnofsky performance status: 50 - Requires considerable assistance from others and frequent medical care. ECOG performance status: 3 - Capable of only limited self-care, confined to bed or chair more than 50% of waking hours. PHQ 2 and 9 Total Scores 05/04/2023 PHQ-2 Score 0 Labs: CBC Latest Ref Rng & Units 05/04/2023 05/22/2023 05/29/2023 WBC 3.70 - 11.00 k/uL 10.86 6.83 6.37 RBC 3.90 - 5.20 m/uL 3.47(L) 3.61(L) 3.27(L) HEMOGLOBIN 11.5 - 15.5 g/dL 11.4(L) 11.6 10.5(L) HEMOGLOBIN TOTAL, WHOLE BLOOD 11.5 - 15.5 g/dL - - - HEMATOCRIT 36.0 - 46.0 % 34.7(L) 35.1(L) 31.8(L) MCV 80.0 - 100.0 fL 100.0 97.2 97.2 MCH 26.0 - 34.0 pg 32.9 32.1 32.1 MCHC 30.5 - 36.0 g/dL 32.9 33.0 33.0 RDW-CV 11.5 - 15.0 % 14.6 14.5 14.4 PLATELETS 150 - 400 k/uL 189 232 204 MPV 9.0 - 12.7 fL 10.4 10.3 10.5 BASO% % 0.2 0.3 0.5 ABS NEUT (ANC) 1.45 - 7.50 k/uL 9.09(H) 6.12 4.80 ABS LYMPH 1.00 - 4.00 k/uL 0.62(L) 0.41(L) 0.79(L) ABS MONO <0.87 k/uL 0.81 0.16 0.67 ABS EOSIN <0.46 k/uL <0.03 <0.03 <0.03 ABS BASO <0.11 k/uL <0.03 <0.03 0.03 NRBC /100 WBC 0.0 0.0 0.0 META% % - - - MYELO% % - - - ANISOCYTOSIS - - - - LEFT SHIFT - - - - OVALOCYTES - - - - POLYCHROMASIA - - - - RBC FRAGMENTS None Seen - - - PLATELET ESTIMATE - - - - CMP Latest Ref Rng & Units 05/04/2023 05/22/2023 05/29/2023 SODIUM 136 - 144 mmol/L 144 139 142 POTASSIUM 3.7 - 5.1 mmol/L 3.3(L) 3.3(L) 3.0(L) CHLORIDE 97 - 105 mmol/L 105 103 104 CO2 22 - 30 mmol/L 28 24 26 GLUCOSE 74 - 99 mg/dL 84 157(H) 114(H) BUN 7 - 21 mg/dL 33(H) 26(H) 24(H) CREATININE 0.58 - 0.96 mg/dL 0.79 0.78 0.97(H) EGFR >=60 mL/min/1.73m 76 77 59(L) PROTEIN, TOTAL 6.3 - 8.0 g/dL 6.1(L) - 6.0(L) ALBUMIN 3.9 - 4.9 g/dL 4.2 - 4.1 CALCIUM, TOTAL 8.5 - 10.2 mg/dL 10.0 9.7 9.4 BILIRUBIN, TOTAL 0.2 - 1.3 mg/dL 0.3 - 0.3 AST 13 - 35 U/L 11(L) - 10(L) ALT 7 - 38 U/L 12 - 8 ALKALINE PHOSPHATASE 34 - 123 U/L 39 - 45 Final Pathology: Resection 08/14/2022 FINAL DIAGNOSIS A-B. Right parietal lobe, excision: - Morphologically consistent with high grade glioma. RAP/barron 08/17/2022 Diagnosis Comment The tumor is marked by prominent cellularity, identifiable mitotic activity, vascular proliferative changes and necrosis. Immunostains were performed on block B2. The tumor did not stain with antibody to IDH-1(R132H) . ATRX staining was retained. Focally, greater than 30% of cells demonstrate p53 immunostaining. A Ki-67 index in excess of 30% is noted. Additional molecular testing including 1p/19q FISH, EGFR FISH, MGMT analysis and IDH1/2 PCR have been ordered on this case and results will be signed out separately when available. If the tumor demonstrates evidence of co-deletion on chromosomes 1p and 19q and evidence of an IDH mutation, the tumor should be considered an oligodendroglioma, WHO Grade 3. If the tumor does not show both of the aforementioned molecular findings, the tumor should be considered a high grade astrocytic neoplasm. If the tumor represents an astrocytoma and demonstrates evidence of an IDH mutation, the tumor should be considered an astrocytoma, WHO Grade 4. If the tumor is an astrocytoma and does not show evidence of and IDH mutation, the tumor should be considered a glioblastoma, WHO Grade 4. IDH1 AND IDH2 GENE ANALYSIS IDH1 and IDH2 Gene Analysis Laboratory Accession Number: [id number] Case #: [id number] Block #: B2 Sample Type: FFPET % Tumor: 70 Result: IDH1 - No variant detected [Reference sequence: ([id number])]. IDH2 - No variant detected [Reference sequence: (NM_[id number])]. Interpretation: No cancer-related sequence changes were identified in IDH1 codon 132, IDH2 codon 172 or other mutation hotspots within the IDH1 or IDH2 genes. MGMT METHYLATION MGMT Methylation Laboratory Accession Number: [id number] Case #: [id number] Block #: B2 % Tumor: 70 Result: Hypermethylated (The mean methylation of MGMT promoter region is greater than or equal to 12%) Tissue Analyzed: right parietal lesion FISH FOR 1P/19Q FISH for 1p/19q Laboratory Accession Number: [id number] Case: [id number] Block: B2 Sample Type: FFPET Sample Description: BRAIN, RIGHT PARIETAL LESION Received Date: 2022-08-17 14:08:38 RESULTS: Chromosome 1p: INTACT, EUSOMIC Chromosome 19q: INTACT, EUSOMIC FISH FOR EGFR FISH for EGFR Laboratory Accession Number: [id number] Case: [id number] Block: B2 Sample Type: FFPET Sample Description: BRAIN, RIGHT PARIETAL LESION Received Date: 08/17/2022 RESULTS: EGFR AMPLIFIED Number of nuclei scored: 40 INTERPRETATION: Positive for amplification of the EGFR gene. Clinical and pathological correlation is recommended. Imaging: MRI Report MRI BRAIN WO/W IVCON Exam End: 05/25/2023 2:46 PM (Final result) Narrative: * * *Final Report* * * DATE OF EXAM: May 25 2023 2:46PM [facility] [id number] - MRI BRAIN WO/W IVCON / PROCEDURE REASON: Glioblastoma multiforme (HCC) * * * * Physician Interpretation * * * * EXAMINATION: MRI BRAIN WO/W IVCON CLINICAL HISTORY: Glioblastoma multiform he TECHNIQUE: Routine brain MRI protocol without and with contrast including diffusion images. MQ: [id number] Contrast: 14 mL Dotarem IV COMPARISON: Brain MRI from 02/23/2023 and 12/08/2022. RESULT: Postoperative changes: Postoperative changes from prior right frontoparietal craniotomy changes are again seen with mild adjacent dural thickening and enhancement with blood breakdown products as before. Acute Change: There is no evidence of restricted diffusion to suggest an acute infarct. Hemorrhage: Extensive blood breakdown products are seen at the site of the surgical cavity about the high right parietal convexity and the right parafalcine parietal lobe, as before. Mass Lesion/ Mass Effect: Redemonstration of thick enhancing foci about the right parietal centrum semiovale with an adjacent focus at periventricular parietal garcia radiata with associated susceptibility, along with a punctate focus in the right parietal parafalcine region as before, overall increased in size since prior examination. Extensive confluent areas of T2 prolongation within the bilateral deep white matter, right more than left appear to have progressed since the prior examination. Foci of T2 prolongation in the infratentorial brain, likely represent chronic microangiopathic ischemic changes. Parenchyma: Moderate diffuse cerebral volume loss. Ventricles: Diffuse ventriculomegaly in proportion to the degree of central cerebral volume loss. Skull Base: Hypothalamic and pituitary region are grossly normal. Craniocervical junction is normal. No significant marrow replacement process. Vasculature: Major intracranial arterial structures, and dural venous sinuses show typical flow void, suggesting patency by spin echo criteria. Other: Mild polypoid mucosal thickening of the bilateral maxillary sinuses. Bilateral pseudophakia fatty infiltration of the bilateral parotid glands. The orbits and extracranial soft tissues are unremarkable. Impression: IMPRESSION: Interval further increase in the size and definition of the previously seen foci of avid enhancement in the right parietal region with associated susceptibility, along with increased right more than left asymmetric confluent deep white matter T2 prolongation. Additional ancillary findings are unchanged since the prior exam. Framing Carpenter: DOV Transcribe Date/Time: May 25 2023 4:35P Dictated by : KEHINDE BECKETT MD This examination was interpreted and the report reviewed and electronically signed by: KEHINDE BECKETT MD on May 25 2023 4:55PM EST Assessment & Plan In sum, Ms. Mae is a 78 year old right handed FEMALE, consulted to neuro-oncology for glioblastoma. Her medical condition is complicated by DVT (on apixaban), HTN, HLD, arthritis, and cataracts. On history, reports worsening left sided weakness and general energy, and physical examination today discloses the same. These localize well to known location of tumor, with perhaps elements of steroid myopathy and deconditioning in addition. We had a long discussion today regarding her next steps, and discussed that at this point because of low KPS and inability to ambulate independently, she is not eligible for any clinical trial at this point. We therefore will recommend lomustine chemotherapy, tapering dexamethasone as able, increasing citalopram for mood, adding Lasix for bilateral lower extremity edema, and reimaging in 2 months. We discussed that she may have this care with her local oncologist and we are happy to help facilitate that. To expedite treatment, we will order lomustine for the first cycle here and she may follow-up thereafter with local oncology. Ms. Mae was in full agreement with this plan and I answered all of their questions. Summary of plan as follows: I have recommended Lomustine (aka CCNU) and explained its risks and benefits, especially the risk for cytopenias and the rare side effect of interstitial lung disease. Baseline PFT will be obtained to document no restrictive process and PFTs will be monitored every two cycles or sooner pending tolerance. -- PFT to establish baseline then q 2 cycles while on lomustine -- Lomustine dose 90mg/kg: Wt 152 lbs (documented 05/25/2023) ; height 162.6cm documented 05/29/2023 = BSA 1.76m2 x 90mg/m2 = 158.4mg PO x 1 q6wk (round very slightly up to 160mg = 4 x 40mg tabs) -- Standing order for CBC, CMP weeks 3 4 5 6 while on lomustine -- Kytril prior to lomustine dose - Dex taper: 2mg daily now x 1 wk then 2mg q2days then check in and can potentially further reduce - PPI ppx with famotidine 20mg daily to continue -- Increase citalopram to 30mg from 20mg daily, follow with onc psychology/psychiatry - Lasix 20mg daily in AM for BLE edema -- Plan to re-image after 2 months -- Follow up in 2mos by virtual visit / in person, or may choose to follow w/ local oncologist -- Call sooner if any questions or changes Adolfo Martins MD DPtxl [facility] Medical Neuro-Oncology Staff Physician Joslyn Couch [facility], [facility] June 14, 2023 Brain Tumor Neuro[facility]cology Center CC: Patient Care Team: Milvia Hinkle as PCP - General (Family Medicine) Sherry Winchester, RN as Specialty Forestry Tree Pruner (Hematology/Oncology) Anshul Riggs MD as Physician (Hematology/Oncology) Jessica Cartagena PA-C as Physician Documentation Nurse (Hematology/Oncology) Marian Spangler LSW as Marketing Database Consultant documented in this encounter [facility] 06-15-2023 Nurse Note Additional intake questions: Has the patient had fever, nausea, vomiting, diarrhea, constipation, fatigue for > 1 week? Yes, fatigue and Provider Notified Does the patient have a decreased appetite? No Does patient want to see a Seo Specialist? No (yes to any of above refer patient to schedulers for dietitian appointment) ) Does patient have any new or increased numbness or tingling of extremities? No Is patient interested in fertility information? No Does patient need any prescription refills? No Does patient have an advanced directive in place? No, Patient referred to Resource Center documented in this encounter [facility] 06-05-2023 Miscellaneous Notes Called pt. Spoke to her, her spouse and daughter, scheduled pt to be seen on 06/07/23 at 9am. Manda Rae Time Frame: 1-2 weeks Orders: Consult to neuro oncology (60 MIN VISIT) Provider: First available Referring: Dr Riggs Diagnosis: GBM with methylated MGMT- R Parietal multifocal lesion Presented to by Dr Lipscomb- patient to be seen as new patient for evaluation for clinical trial. documented in this encounter [facility] 05-31-2023 Note [facility] 05-31-2023 Note [facility] 05-31-2023 History of Present illness Narrative Summary: Communication with Oncology team RE BT Board recommendations. Images from the original note were not included. Communication with Oncology team RE BT Board recommendations. ===View-only below this line=== ----- Message ----- From: Dipika Duff MD Sent: 05/31/2023 5:55 PM EST To: Dipika Duff MD; Max Stallings MD; * Hi Dr. Riggs and colleagues, I presented the patient to Brain Tumor Board, please see the recommendations. I recommend for us to se her in our Brain Tumor Clinic at [facility] to assess her for treatments including clinical trials. Dr. Riggs, Please kindly inform the patient, and let us know if the patient wishes to see us in our clinic in [place]. We will make arrangements to see her only if the patients agrees. This will need to be most preferably an in person visit. Please let me know if this meets your approval, and I am happy to discuss further. Thank you, Ned Duff MD Staff Neuro-Oncologist Federico Couch [facility] [phone] [facility] [id number] Tumor Board 05/31/2023 [facility] Dipika Duff MD Neurology Progress Notes Dipika Duff MD (Physician) Neurology Summary: BRAIN TUMOR BOARD May 31, 2023 BRAIN TUMOR BOARD May 31, 2023 Participants: Neuroradiology: Dr. Juan Luis Johnson Neurosurgery Radiation Oncologist Medical Oncology/Neuro-Oncology Recommendations and comments from the board, see below. I will inform the patient about the recommendations at the earliest opportunity/or next short interval follow up appointment. Dipika Duff MD May 31, 2023 17 [facility] [id number] Glioblastoma Glioblastoma Ophelia 05/25/23, 02/23/23, 12/08/22 No Unknown 78 y/o female with dx with GBM with methylated MGMT,EGFR amplified 08/14/2022 s/p R parietal craniotomy for resection of multifocal brain lesion. Post op c/b DVT and subdural hematoma (s/p IVC filter-since removed and now on Eliquis) Completed Temodar and XRT 10/24/2022 and ADJ TMZ x 6 [id number]-erscmemuf-7/2023. MRI 05/25 concerning for progression Radiology diff dx - concern for progression Also treatment options. Recommend evaluate patient in clinic for Clinical Trials: GCAR for progressive disease Or even To look at other potential trials i.e., [place] - wait list only, Part 1 closed VS SOC documented in this encounter [facility] 05-31-2023 History of Present illness Narrative Summary: BRAIN TUMOR BOARD May 31, 2023 BRAIN TUMOR BOARD May 31, 2023 Participants: Neuroradiology: Dr. Juan Luis Johnson Neurosurgery Radiation Oncologist Medical Oncology/Neuro-Oncology Recommendations and comments from the board, see below. I will inform the patient about the recommendations at the earliest opportunity/or next short interval follow up appointment. Dipika Duff MD May 31, 2023 [facility] Marilin Mae [id number] Glioblastoma Glioblastoma Ophelia 05/25/23, 02/23/23, 12/08/22 No Unknown 78 y/o female with dx with GBM with methylated MGMT,EGFR amplified 08/14/2022 s/p R parietal craniotomy for resection of multifocal brain lesion. Post op c/b DVT and subdural hematoma (s/p IVC filter-since removed and now on Eliquis) Completed Temodar and XRT 10/24/2022 and ADJ TMZ x 6 [id number]-diskukkef-7/2023. MRI 05/25 concerning for progression Radiology diff dx - concern for progression Also treatment options. Recommend evaluate patient in clinic for Clinical Trials: GCAR for progressive disease Or even To look at other potential trials i.e., [place] - wait list only, Part 1 closed VS SOC documented in this encounter [facility] 05-31-2023 Note [facility] 05-31-2023 History of Present illness Narrative Clinical Trial Inquiry: Please note this is an abstract note serving only to load and organize information prior to patient's visit to [facility] (new consult) or visit to treating physician (established patient). This includes information gathered from outside records and/or information that has been previously documented in [facility] and will be confirmed with the patient and modified should patient proceed with clinical trials. Requested by: Dt. Duff on 05/31/2023 by [facility] WHO tumor grade: IV Disease stage: recurrent Pathology biomarkers: GBM, IDH wildtype, EGFR amplified, MGMT hypermethylated, ATRX retained, p53 >30%, Ki-67 of >30%, 1p19q intact CARIS order is in process History: 08/03/2022 - p/w disequilibrium, unsteadiness, TRAINING CONSULTANT 08/08/2022 - MRI brain wwo contrast reveals multicentric 3.3 x 3 cm x 3 cm high R parietal and a 2.8 x 2.6 x 1.8 R parieto-occipital ring-enhancing lesions 08/12/2022 - p/w worsening TRAINING CONSULTANT; CTH at outside ED shows 2.5 cc hemorrhage into the known lesion, with no hemorrhage elsewhere 08/14/2022 - R parietal crani for resection of multifocal brain lesion by Dr. Mir -post op MRI = near total resection of enhancing areas 09/13/2022 to 10/24/2022 - concurrent chemoradiation (6000 cGy in 30 Fx + TMZ 75 mg/m2) 11/08/2022 - Adjuvant TMZ Cycle 1 12/06/2022 - Adjuvant TMZ Cycle 2 12/14/2022 - fall with elbow fracture ~01/09/2023 - Adjuvant TMZ Cycle 3 ~02/07/2023 - Adjuvant TMZ Cycle 4 ~03/07/2023 - Adjuvant TMZ Cycle 5 ~04/04/2023 - Adjuvant TMZ Cycle 6 Surveillance 05/25/2023 - MRI c/f progressive disease = Progressive Disease #1 Other pertinent information: Current treatment: surveillance Last dose of previous treatment medication: TMZ c6d5 ~mid Mar 2023 Steroid dose: 4 mg daily (as of 05/29/2023 MD note) Anticoagulants / Antiplatelets: apixaban 5mg BID (since 09/19/2022) PMHx = HTN, HLD, blood clot (remote; during 50+ years ago), DVT in the LLE (popliteal through femoral vein; 08/13/2022; Eliquis started 09/19/2022)), arthritis, cataracts, measles, mumps, depression PSHx = brain surgery (08/14/2022), hysterectomy ([facility] for benign disease ), bilateral knee replacements (2012, 2013), IVCF placement (after LLE DVT 08/18/2022) and retrieval (05/24/2023) Previously seen by [facility] physician: YES Previous clinical trials patient participated in: NO Clinical trials potentially available for patient criteria here at [facility]: YES Potential Clinical Trial(s): [place] - unable to meet next treatment slot on 06/05/2023 UTEX 1322 - no slots available at this time [facility] - not eligible due IDH-wildtype status P[place] (PMV ) - no NGS to review if tumor harbors a p53 Y220C mutation BN010 - on hold [place] - wait list only, Part 1 closed PREL 1Z22 - wait list only, multiple [facility] patients in queue (>2 months) Potentials: GCAR PD -Lomustine SOC vs Troriluzole+Lomustine vs [id number] -KPS needs to be>/= 70 -dex must be </= 4 mg/daily -Eliquis allowed Case [id number] -must be eligible for re-resection (patient has multifocal disease) -does not appear to have a thyroid history that would disqualify her -KPS needs to be>/= 70 Potential clinical trial barriers: multifocal disease, high dose steroids (>/=4 mg for nearly entire 2022), age if it limits performance status or labs (like CrCl) Chart routed to Dr. Ophelia Reynolds RN 05/31/2023 9:03 AM documented in this encounter [facility] 05-29-2023 Note [facility] 05-25-2023 Miscellaneous Notes Radiology Service Progress Note DATE OF SERVICE: May 25, 2023 TIME: 2:17 PM PATIENT IDENTITY VERIFICATION COMPLETED USING TWO (2) STANDARD IDENTIFIERS: Name and Date of confirmed by patient verbally and Name and Date of confirmed by identification band. FALL SCREENING: Has the patient had 2 falls in the last year or 1 fall with injury or currently using an Ambulatory Assistive Device (Walker, Cane, Wheelchair, Crutches, etc.)? No PATIENT GENDER DATA: Female. status: : No status: NO. PATIENT RELEVANT IMPLANT DATA REVIEWED: Yes ALLERGIES: Reviewed and unchanged CONTRAST ALLERGY: NO. EXAM: MRI - CONTRAST TYPE: GROUP II PERIPHERAL IV DATA: Ambulatory: A peripheral IV was started in the Right antecubital site with a Angio cath: 24 gauge. RADIOLOGY DEPARTMENT: MR; Exam(s) Completed: Head: Routine Brain SIGNATURE: LEENA Leonardo, Za Smith, RT(R) PATIENT NAME: Marilin Mae DATE: May 25, 2023 TIME: 2:17 PM documented in this encounter [facility] 05-25-2023 Nurse Note Radiology Service Progress Note DATE OF SERVICE: May 25, 2023 TIME: 2:45 PM PATIENT WEIGHT: 152 LBS PATIENT IDENTITY VERIFICATION COMPLETED USING TWO (2) STANDARD IDENTIFIERS: Name and Date of confirmed by patient verbally and Name and Date of confirmed by identification band. FALL SCREENING: Has the patient had 2 falls in the last year or 1 fall with injury or currently using an Ambulatory Assistive Device (Walker, Cane, Wheelchair, Crutches, etc.)? No PATIENT GENDER DATA: Female. status: : No status: NO. ALLERGIES: Reviewed and unchanged CONTRAST ALLERGY: No EXAM: MRI - CONTRAST TYPE: GROUP II IV SITE: Ambulatory: A peripheral IV was started in the Right antecubital site with a Angio cath: 24 gauge. and A Saline lock was inserted per protocol inserted by Willy Corrigan Rn IV SITE APPEARANCE: Clean,Dry and Intact SIGNATURE: Gloria Hare RN PATIENT NAME: Marilin Mae DATE: May 25, 2023 TIME: 2:45 PM documented in this encounter [facility] 05-14-2023 Miscellaneous Notes SPOKE WITH PT AGREED TO DOS 05/24 IVC FILTER REMOVAL @ 1 INTERVENTIONAL RADIOLOGY PATIENT APPOINTMENT REQUEST May 11, 2023 Marilin Mae [id number] Request: Schedule Requestor: Milla Rangel PA-C Ref.Physician: Dr. Pablo KING Physician: Any Procedure/Request: IVC Filter removal Reason/ICD Code: s/p IVC Filter placement Priority: routine Scheduling Comments: Please schedule for first available IVC Filter removal Does MD need to be present for consult?: yes IR Procedure Room: No Preferred Room Equipment or Vendor Request: No / N/A Anticipated length of procedure (not including prep or Anesthesia): 90 minutes Pre-Procedure Orders: Labs Ordered Sedation: Moderate Sedation Bed Reservation: No Location of Procedure: [facility] [place] documented in this encounter [facility] 05-08-2023 Note [facility] 05-08-2023 History of Present illness Narrative VIRTUAL VISIT PROGRESS NOTE This is a virtual visit. It required patient-provider interaction for the clinical decision making as documented below. Marilin Mae has consented to this virtual visit and their location was confirmed The patient e-signed the Informed Consent for Psychological Evaluation & Care Form, and the behavioral health care insurance benefits, fees for service, emergency procedures, and the limits of confidentiality that may pertain with any given case were discussed with the patient. The patient was given a copy of the consent form on [employer]. Due to the need for ongoing mental health services, the following visit was completed virtually to reduce the risk of COVID-19 exposure. Consent related to virtual visits was obtained verbally. Audio and video quality were good, and connectivity was generally continuous. Chief Complaint/Reason: anxiety [facility] Psycho-Oncology Program CONFIDENTIAL INITIAL PSYCHOLOGICAL EVALUATION DATE OF SERVICE: May 08, 2023 SERVICE/CPT CODE: 82408 Initial Psychodiagnostic Evaluation, 9:15a to 10:18a PRESENT: Patient; Collateral Parties: child: Daniella, adult daughter REFERRAL SOURCE: [facility] Physician - Anshul De La O MD INITIAL IMPRESSIONS and SUMMARY (for full evaluation see below): Marilin Mae is a 78 year old female diagnosed with a glioblastoma. Psycho-oncology was consulted for assistance with coping Marilin Mae was open and engaged during the session. DIAGNOSIS 1. 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 None ASSESSMENT, TREATMENT PLAN AND RECOMMENDATIONS Plan to outline goals and interventions with patient at next appointment. No indication for psychiatric hospitalization. Recommended routine psychology appointments coordinated with oncology care. Follow up to be scheduled by patient. Continue following with Dr. Anshul Riggs for psychotropic medication management. Provided written information on how to reach the clinic between visits as well as a reminder to call 911 or go to the nearest emergency department if an urgent issue arises. Provided information about the [place] [employer] Suicide and Crisis Line. Provided information about support services offered at [facility] and within the community and encouraged participation in services for additional coping and support. Co-manage patient's mental health care with her care team. Will communicate with oncology team members as needed for treatment planning purposes. Thank you for referring this patient. Please do not hesitate to call or page with any questions or concerns. Diya Murry, Ph.D. Clinical Psychologist, [facility] Ext: , Pager: [phone] Discussed the Agreement for Psychological Evaluation & Care Form. Reviewed credentials, confidentiality guidelines and limitations, EMR access, emergency procedures, financial responsibility, and initial treatment recommendations. Patient acknowledged understanding of the agreement and signed form. IDENTIFYING INFORMATION Marilin Mae is a 78 year old female, with 2 grown children. Marilin Mae was diagnosed in 2022 with a GBM, currently receiving treatment. Marilin's oncologist is Anshul Riggs MD. Mental health history is unremarkable. PRESENTING PROBLEMS/SYMPTOMS - Marilin reports that she panics (freezes, high anxiety, limiting movement at home) when she tries to go from sitting to standing to walk around the home and won't navigate stairs at home due to fear of falling. She will freeze in place and then will sit back down. CHIEF COMPLAINT: anxiety. SUICIDE RISK ASSESSMENT: Suicide Attempt(s): Patient denies previous suicide attempts. Risk Factors: Physical illness Protective Factors: Strong support system, Strong ties to medical/mental heatlh professionals, Skills in problem solving SAFETY SCREENING A safety assessment was completed. Risk factors include: age, physical symptom burden, and cancer diagnosis. Based on this assessment, the patient does NOT pose an acutely elevated risk of harm. These risks are mitigated by the following protective factors: no current thoughts of suicide, no current thoughts of self-harm, commitment to children and/or pets, supportive friends and/or family, education level, and engagement in care. MENTAL HEALTH HISTORY Prior Diagnosis: None Prior Psychiatrist: No prior psychiatrist Therapist: No prior therapist Last Hospitalization: Denies history of inpatient psychiatric hospitalizations Suicide Attempt(s): Patient denies previous suicide attempts. History of treatment for substance use disorder: The patient has never had any substance abuse treatment SUBSTANCE USE Nicotine: denied use Caffeine: limited Alcohol: not currently Marijuana: denied use Other substances used recreationally: denied use CURRENT PSYCHOTROPIC MEDICATIONS Active psychotropic medications include ritalin and cymbalta. Marilin described appropriate medication adherence and continues to follow-up with Dr. Riggs for medication management. FAMILY MENTAL HEALTH HISTORY No family psychiatric or substance abuse history reported FAMILY AND SOCIOCULTURAL HISTORY Marilin denied developmental delays, learning disabilities, or behavioral problems during school age. Marilin Mae lives in [place], [place] with her . Abuse history not discussed. Marital Status: Children: Yes, Daniella and sisters Vianney Grandchildren: Yes, 4 , 5 great kids Spiritual/Zoroastrianism affiliation: No sikhism affiliation discussed Spiritual concerns noted: No Financial Issues: not identified Service: None Legal: Pt. denied any past legal history EDUCATION/EMPLOYMENT Marilin Mae completed High school Marilin Mae is retired. PATIENT-IDENTIFIED COPING STRATEGIES Avoidance, Crying, Distraction, and Talking with social supports Per patient, these coping strategies have been partially effective. PATIENT-IDENTIFIED GOALS FOR PSYCHOTHERAPY To decrease anxiety and increase comfort moving around her home SELF REPORT SCREENING MEASURES BH TAB: not completed this session MENTAL STATUS EXAMINATION Appearance: Casually dressed Behavior: Behaves appropriately during the encounter Social relatedness: Anxious/Nervousness and Tearful Orientation: Person, Place, Time and Situation Speech/Language:The patient demonstrates appropriate tone, prosody, twin, phonetics, and syntax Cognition, memory: Fair Thought process: logical and coherent Attention and concentration: good Mood: Anxious, Sad, and Worried Affect: Full and appropriate to topic Psychomotor Activity: Within normal limits Associations: Intact and linear Hallucinations: None Delusions: None Suicidal Ideation: No suicidal ideation, intent or plan. Homicidal Ideation: No homicidal ideation, intent or plan. Insight/Judgment: Appropriate; Appropriate Sleep: is described as normal Appetite: fair Obsessions: none Compulsions: none Self mutilation: Denies SUMMARY IMPRESSION: Marilin Mae presented with stressors related to her cancer diagnosis and resulting side effects. Marilin reported that she experiences a brain block when she panics. This centers around needing to walk from one place to another in her home, and transitioning from sitting to standing. She expressed having a strong fear of falling, which has happened before at home, and this fear is keeping her from doing things at home and going places. Her daughter reported that Marilin will stand up at home from her chair, will tense up and freeze, and will not move. She has a walker and wheelchair at home, is never home alone, and has a lift chair. She is participating in physical therapy, and her daughter reports that in therapy, Marilin will use stairs, move from sitting to standing, and is more confident. But when at home, she will freeze up, even with all of her assistance and someone standing next to her. She will eventually move around the house, but refuses to go up stairs. Marilin expressed that she loves her family, loves to have a busy house with her kids and grandkids visiting, doing puzzles and watching TV. She also shared that she loves to go shopping and to thrift stores, but she won't with her fear. Her goal is to be able to move around the house with less fear and to feel happy. . Marilin Mae reported some significant changes in eating, sleeping, mood or behavior. Patient reported med compliance with limited effect. GOALS/OBJECTIVES/INTERVENTIONS: Therapist used [place], Solution focused and Supportive therapy to assist patient in processing her feelings. Therapist normalized patient feelings and provided empathetic listening, support and reflection. Patient was receptive to interventions used. Therapist will continue to assist with effective management of mood and behavior. Patient was seen for an initial evaluation. All information is from Patient report except when noted. This evaluation is NOT intended for forensic, disability or child custody purposes. Informed consent was discussed and signed by the patient. documented in this encounter [facility] 05-04-2023 Note [facility] 05-04-2023 History of Present illness Narrative ativanPATIENT NAME: Marilin Mae [facility] NO.: [id number] ATTENDING PHYSICIAN: Anshul Riggs MD DATE OF SERVICE: May 04, 2023 Some of the elements of this note have been copied from my previous progress note dated 04/04/2023. All the information has been reviewed carefully. Dear Dr. Milvia Hinkle, here is an update on a follow up visit on female Marilin Mae at the clinic May 04, 2023 Diagnosis: GBM with methylated MGMT- R Parietal multifocal lesion Treatment History: 08/14/2022: 1. Right parietal craniotomy for resection of multifocal brain lesion . Use of intraoperative neuro navigation for intradural procedure . Intraoperative MRI brain Modifier 22 - increased complexity, length, risk, and difficulty due to location adjacent to eloquent structures necessitating neuro monitoring for cortical motor mapping and bipolar stim 2. DVT Post op- IVC filter 08/18/2022 due to Subdural hematoma- Resolved on CT 09/19/2022- Eliquis started 09/19/2022 2. Temodar and XRT 09/13/2022-10/24/2022 3. Temodar 150 mg/m2 11/08/2022 -03/2023 HPI: Marilin Mae is a 78 year old year old female here for follow up. She is having therapy and also still anxious when she tries to walk at home. They tried to taper the dex to 2 mg daily and that effected her walking and she is back to the 4 mg dose again PAST MEDICAL HISTORY Diagnosis Date Arthritis Brain mass 2021 Cataracts, bilateral Family history of cancer History of blood clots HTN (hypertension) Hyperlipidemia Social History Tobacco Use Smoking status: Never Passive exposure: Never Smokeless tobacco: Never Vaping Use Vaping Use: Never used Substance Use Topics Alcohol use: Not Currently Alcohol/week: 1.0 standard drink of alcohol Types: 1 Glasses of wine per week Comment: 1 glass per day Drug use: Never FAMILY HISTORY Problem Relation Age of Onset Stroke Mother Past medical, social and family history reviewed without any changes. REVIEW OF SYSTEMS GENERAL: No weight loss, malaise or fevers. No night sweats. HEENT: Negative for headaches, No changes in hearing or vision, no nose bleeds or other nasal problems. RESPIRATORY: Negative for cough, wheezing and shortness of breath CARDIOVASCULAR: Negative for chest pain, leg swelling and palpitations GI: Negative for abdominal discomfort, blood in stools or black stools and change in bowel habits : Negative for dysuria, frequency and incontinence MUSCULOSKELETAL: Negative for joint pain or swelling, back pain, and muscle pain. SKIN: Negative for lesions, rash, and itching. HEMATOLOGY/LYMPHOLOGY Negative for prolonged bleeding, bruising easily, and swollen nodes. NEURO: Negative for numbness or tingling of hands/feet. No weakness. PHYSICAL EXAMINATION: BP 135/74 Pulse 77 Temp (Src) 97.5 (Temporal) Resp 18 Ht 5' 4.016 (1.63m) Wt 0 lb (0.0kg) SpO2 97% Wt 73.5 kg (162 lb) BMI 27.79 kg/m2 Last 3 Encounter Wt Readings: Date: Wt: 09/27/2022 73.5 kg (162 lb) 09/20/2022 72 kg (158 lb 12.8 oz) 09/19/2022 70.1 kg (154 lb 9.6 oz) General appearance:ECOG PERFORMANCE STATUS: 1- Restricted in physically strenuous activity. Carries out light duty. Patient in NAD. Skin: Skin color, texture, turgor normal. No rashes or lesions. Eyes: Anicteric sclera. Pupils are equally round and reactive to light. Extraocular movements are intact. Lymph Nodes: No cervical, supraclavicular, axillary or inguinal adenopathy. Oropharynx: Lips, mucosa, and tongue normal. Back: No pain to percussion. Negative SLR test Lungs clear to auscultation, No wheezing or rhonchi Heart: RRR without murmur, gallop, or rubs. Abdomen soft, non-tender. No masses, organomegaly Extremities: No deformities. No edema Neuro: Gait and speech normal. Reflexes normal and symmetric. Muscular strength intact. Sensation grossly intact. Rectal: Deferred : Deferred LABS: Glucose (mg/dL) Date Value 04/04/2023 145 Potassium (mmol/L) Date Value 04/04/2023 4.1 Sodium (mmol/L) Date Value 04/04/2023 142 Chloride (mmol/L) Date Value 04/04/2023 106 CO2 (mmol/L) Date Value 04/04/2023 21 Creatinine (mg/dL) Date Value 04/04/2023 0.99 BUN (mg/dL) Date Value 04/04/2023 32 Anion Gap (mmol/L) Date Value 04/04/2023 15 Calcium, Total (mg/dL) Date Value 04/04/2023 9.1 Protein, Total (g/dL) Date Value 04/04/2023 5.9 Albumin (g/dL) Date Value 04/04/2023 4.0 Bilirubin, Total (mg/dL) Date Value 04/04/2023 0.3 Alkaline Phosphatase (U/L) Date Value 04/04/2023 41 AST (U/L) Date Value 04/04/2023 11 ALT (U/L) Date Value 04/04/2023 17 WBC Date Value Ref Range Status 05/04/2023 10.86 3.70 - 11.00 k/uL Preliminary RBC Date Value Ref Range Status 05/04/2023 3.47 (L) 3.90 - 5.20 m/uL Preliminary Hemoglobin Date Value Ref Range Status 05/04/2023 11.4 (L) 11.5 - 15.5 g/dL Preliminary Hematocrit Date Value Ref Range Status 05/04/2023 34.7 (L) 36.0 - 46.0 % Preliminary MCV Date Value Ref Range Status 05/04/2023 100.0 80.0 - 100.0 fL Preliminary MCH Date Value Ref Range Status 05/04/2023 32.9 26.0 - 34.0 pg Preliminary MCHC Date Value Ref Range Status 05/04/2023 32.9 30.5 - 36.0 g/dL Preliminary RDW-CV Date Value Ref Range Status 05/04/2023 14.6 11.5 - 15.0 % Preliminary Platelet Count Date Value Ref Range Status 05/04/2023 189 150 - 400 k/uL Preliminary MPV Date Value Ref Range Status 05/04/2023 10.4 9.0 - 12.7 fL Preliminary Abs Neut (Segs + Bands) Date Value Ref Range Status 04/04/2023 9.14 (H) 1.45 - 7.50 k/uL Final Lymphocytes % Date Value Ref Range Status 04/04/2023 1.7 % Final Abs Lymph (Normal + Reactive) Date Value Ref Range Status 04/04/2023 0.16 (L) 1.00 - 4.00 k/uL Final Monocytes % Date Value Ref Range Status 04/04/2023 1.7 % Final Abs [place] Date Value Ref Range Status 04/04/2023 0.16 <0.87 k/uL Final Eosin% Date Value Ref Range Status 04/04/2023 0.0 % Final Abs Eosin Date Value Ref Range Status 04/04/2023 0.00 <0.46 k/uL Final Basophils % Date Value Ref Range Status 04/04/2023 0.0 % Final Abs Baso Date Value Ref Range Status 04/04/2023 0.00 <0.11 k/uL Final PATH: 08/14/2022 Craniotomy: FINAL DIAGNOSIS A-B. Right parietal lobe, excision: - Morphologically consistent with high grade glioma. RAP/barron 08/17/2022 Diagnosis Comment The tumor is marked by prominent cellularity, identifiable mitotic activity, vascular proliferative changes and necrosis. Immunostains were performed on block B2. The tumor did not stain with antibody to IDH-1(R132H) . ATRX staining was retained. Focally, greater than 30% of cells demonstrate p53 immunostaining. A Ki-67 index in excess of 30% is noted. Additional molecular testing including 1p/19q FISH, EGFR FISH, MGMT analysis and IDH1/2 PCR have been ordered on this case and results will be signed out separately when available. If the tumor demonstrates evidence of co-deletion on chromosomes 1p and 19q and evidence of an IDH mutation, the tumor should be considered an oligodendroglioma, WHO Grade 3. If the tumor does not show both of the aforementioned molecular findings, the tumor should be considered a high grade astrocytic neoplasm. If the tumor represents an astrocytoma and demonstrates evidence of an IDH mutation, the tumor should be considered an astrocytoma, WHO Grade 4. If the tumor is an astrocytoma and does not show evidence of and IDH mutation, the tumor should be considered a glioblastoma, WHO Grade 4. Chromosome 1p: INTACT, EUSOMIC Chromosome 19q: INTACT, EUSOMIC RESULTS: EGFR AMPLIFIED IDH1 - No variant detected [Reference sequence: ([id number])]. IDH2 - No variant detected [Reference sequence: ([id number])]. Hypermethylated (The mean methylation of MGMT promoter region is greater than or equal to 12%) IMAGING: MRI Brain 07/2022: Dominant heterogeneous enhancing masses are present in the right parietal lobe distorting the adjacent posterior right frontal lobe and paramedian right parietal lobe, measuring approximately 2.8 cm and 2 cm respectively. Additional smaller enhancing satellite nodules are visible. Main differential considerations are high-grade neoplasm such as glioblastoma, anaplastic astrocytoma or metastasis. There is local mass effect and effacement of the atrium of the right lateral ventricle. No gross midline shift or herniation. US 08/18/2022: LEFT SIDE - DEEP VEINS Acute proximal deep vein thrombosis in the femoral vein from proximal to distal. Acute proximal deep vein thrombosis in the popliteal vein. MRI Brain 12/08/2022: There is increasing enhancing parenchyma within the right parietal lobe resection site extending to the cingulate gyrus as seen on post contrast T1 images. The nature of this enhancement is indeterminant in that it could be due to granulation, radiation necrosis, or tumor recurrence. Although there does appears to be increased cerebral blood volume in this deep parietal area there is considerable susceptibility artifact from the blood products in this area making the cerebral blood volume maps unreliable. No evidence of leptomeningeal disease. MRI Brain 02/2023: Small area of patchy/confluent enhancement in the right parietal region which has decreased in extent since 12/08/2022. Right parietal resection cavity with thick peripheral linear enhancement seen. Stable extent confluent T2 and FLAIR hyperintensity in the right posterior frontal and parietal regions. Increased extent of bilateral confluent T2 and FLAIR hyperintensity involving the deep and periventricular white matter, perhaps chronic microvascular ischemic changes and/or posttreatment changes. Susceptibility/old hemorrhagic products along the margins of the right parietal resection cavity. Assessment and Plan: Marilin Mae is a 78 year old year old female here for follow up. 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 Completed 6 cycles of therapy last 03/2023. MRI scheduled 05/25/2023 DVT- Post IVC due to subdural hematoma. She had an IVC filter placed 08/18/[address] last week with near resolution of the subdural hematoma, she was started on 2.5 mg PO BID and plan a repeat CT 10/03/2022, which she did and on 5 mg BID Continues Dex 4 mg daily on PJP prophylaxis, discussed tapering and again and try 4 mg M, W and F Continue Paxil - refer to Behavioral health, and scheduled a VV next week Continue Ritalin for fatigue, which has helped See back after MRI and continue PT Thank you for the kind referral. If there are any questions and or concerns please do not hesitate to contact me at [phone]. Anshul Riggs MD Hematology/Medical Oncology [facility] I spent a total of 30 minutes on the date of the service which included preparing to see the patient, [id number] patient care, completing clinical documentation, obtaining and/or reviewing separately obtained history, performing a medically appropriate examination, counseling and educating the patient/family/caregiver, and ordering medications, tests, or procedures. CC: Milvia Hinkle MD documented in this encounter [facility] 04-30-2023 Note [facility] 04-30-2023 History of Present illness Narrative Heart[facility] V[facility] [place] Department of Cardiovascular Medicine VIRTUAL VIDEO VISIT ESTABLISHED OUTPATIENT VISIT SERVICE DATE: 04/30/2023 Patient: Marilin Mae SERVICE TIME: 1:58 PM : 1945 This is a virtual video visit. It required patient-provider interaction for the medical decision making as documented below. Marilin Mae has consented to this video encounter. I have communicated my name and active licensure. The patient's identity and physical location were verified at the time of this visit. Either the patient or their legal media sales representative has been informed of the risks and benefits of -- and alternatives to -- treatment through a remote evaluation and consents to proceed with the evaluation remotely. CHIEF COMPLAINT Follow up HISTORY OF PRESENT ILLNESS Marilin Mae is a 78 year old female seen for follow up. Just finished last chemo 04/11. Patient notes that the left leg is not as strong as right side, working with PT. LLE had been quite swollen up until about a month ago but got a new recliner / lift chair which gets the legs up much better and now edema has greatly resolved. Decadron started taper yesterday 4mg -> 2mg. Has been anticoagulated on apixaban since end of Aug 2022. Denies any s/o bleeding. Does have some easy bruising -- discussed expectation that this should improve with tapering of steroids. PAST MEDICAL HISTORY Diagnosis Date Arthritis Brain mass 2021 Cataracts, bilateral Family history of cancer History of blood clots HTN (hypertension) Hyperlipidemia PAST SURGICAL HISTORY Procedure Laterality Date COLONSCOPY SCREENING HIGH RISK TOTAL ABDOM HYSTERECTOMY TOTAL KNEE REPLACEMENT Right 2013 TOTAL KNEE REPLACEMENT Left 2014 FAMILY HISTORY Problem Relation Age of Onset Stroke Mother Social History Tobacco Use Smoking status: Never Passive exposure: Never Smokeless tobacco: Never Vaping Use Vaping Use: Never used Substance Use Topics Alcohol use: Not Currently Alcohol/week: 1.0 standard drink of alcohol Types: 1 Glasses of wine per week Comment: 1 glass per day Drug use: Never ALLERGIES Allergen Reactions Pantoprazole Other: See Comments Clammy and almost passed CURRENT MEDICATIONS lisinopril (ZESTRIL) 10 mg tablet Take 1 tablet by mouth once daily. methylphenidate (RITALIN) 5 mg tablet Take 2 tablets by mouth once daily for 30 days. citalopram (CELEXA) 20 mg tablet Take 1 tablet by mouth once daily. dexAMETHasone (DECADRON) 4 mg tablet Take 1 tablet by mouth daily with breakfast. famotidine (PEPCID) 20 mg tablet Take 1 tablet by mouth twice daily in the morning and before bedtime. temozolomide (TEMODAR) 20 mg capsule Take 1 capsule (20 mg) by mouth once daily with 1 other temozolomide prescription for 270 mg total. Temozolomide 250 mg capsule Take 1 capsule (250 mg) by mouth once daily with 1 other Temozolomide prescription for 270 mg total. sulfamethoxazole-trimethoprim (BACTRIM DS) 800-160 mg per tablet Take 1 tablet by mouth every Sunday,Sunday,Sunday. granisetron HCl (KYTRIL) 1 mg tablet Take 1 tablet by mouth 1 hour prior to temozolomide dose to prevent nausea, may take an additional dose in the am if needed apixaban (ELIQUIS) 5 mg tab(s) Take 1 tablet (5 mg total) by mouth in the morning and 1 tablet (5 mg total) before bedtime. Do all this for 30 days. Indications: Blood Clot in a Deep Vein. hydroCHLOROthiazide 12.5 mg tablet Take 1 tablet by mouth every morning. (Patient taking differently: Take 25 mg by mouth every morning.) aluminum-magnesium hydroxide-simethicone 200-200-20 mg/5 mL suspension Take 30 mL by mouth every 6 hours as needed. REVIEW OF SYSTEMS: GENERAL: Negative for: Weight loss or gain, Fever or Chills, Weakness and Sleep difficulties. HEENT: Negative for: Headache, Impaired Vision, Glasses, Hearing Impairment, Ringing in Ears, Nosebleeds, Poor dental care, Bleeding Gums, Dentures NECK: Negative for: Swelling, Pain, Stiffness RESPIRATORY: Negative for: Cough, Blood in Sputum, Shortness of breath, Wheezing, Apnea GASTROINTESTINAL: Negative for: Trouble swallowing, Heartburn, Change in bowel habits, Blood in stool, Dark black stools MUSCULOSKELETAL: Negative for: Muscle or joint pain, Stiffness , Joint swelling NEUROLOGIC/PSYCHIATRIC: Negative for: Weakness, Paralysis, Numbness, Tingling, Tremor, Nervousness, Depressed mood, Memory loss SKIN: Negative for: Rashes, Itching HEMATOLOGICAL/LYMPHATIC: Negative for: Easy bruising , Easy bleeding ENDOCRINE: Negative for: Heat or cold intolerance, Excessive sweating, Frequent urination, Frequent thirst PHYSICAL EXAMINATION: VIDEO EXAM: (if completed, performed via video enabled technology) GENERAL: alert and appropriate, in no distress, well-hydrated, well nourished, and happy, smiling, interactive PATIENT ENTERED QUESTIONNAIRE SCORES PROMIS Global Health - (T-Scores - the mean of general population = 50. Five points is a clinically meaningful difference.) 04/04/2023 Physical T-Score 39.8 Mental T-Score 38.8 ASSESSMENT: Marilin Mae is a 78 year old female seen for follow up re hx of DVT s/p IVC filter. Patient's daughter and family present to assist patient with VV today. PMHx significant for: __HTN __Hyperlipidemia __Remote hx of LLE DVT in the setting of 50yrs ago. No recurrence since then, not on anticoagulation prior to admission. __Arthritis s/p bilateral knee replacements 2012, 2013 __S/p remote ANTON for benign disease __Never smoker __Multifocal brain mass Admitted for newly diagnosed right parietal lesions (two, both measuring ~3cm) s/p 08/15/2022 right parietal craniotomy for resection. 08/18/2022 patient had venous US of lower extremities showing acute left femoral and popliteal DVT. Hospital VM team had discussed with NSGY team -- bleeding risk presently prohibitive for use of anticoagulation due to recent crani (also surgical pathology showing gliosis -> suggesting glioblastoma). Favored IVC filter placement. Later had trial of heparin IV while admitted but there was concern re increased SDH in operative bed. While off anticoagulation-- 09/14/2022 new acute right peroneal vein DVT, and left has propagated to the common femoral from the femoral - popliteal segments and into the gastroc, PT, and peroneal veins in the calf. Started anticoagulation with apixaban 09/19/2022. Seen for follow up. Overall doing well. Family notes that her leg edema significantly improved after she received new lift chair and has been able to actually elevate legs. No s/o bleeding on apixaban. Does get bruising on hands / forearms -- especially given she is on high dose steroids. Discussed IVC filter retrieval. PLAN (Active Outpatient Problems): __Referral to IR for IVC filter retrieval. __Continue apixaban 5mg BID. __Duration of anticoagulation: extended duration given cancer associated thrombosis with current ongoing treatment for malignancy. __Reviewed warning sx of recurrent thrombosis and bleeding for which she needs immediate evaluation. __Continue leg elevation. Recommend knee high compression to additionally help with leg edema, can start with light support 15-20mmHg. __Follow up: 6 months and additionally as needed. Martina Gutierrez MD April 30, 2023 1:58 PM documented in this encounter [facility] 04-09-2023 Miscellaneous Notes Referral to Oncology Behavioral Health - psychiatry and psychology. Left a voicemail with information on how to call back and schedule. Will continue to follow up. Munira Maloney April 09, 2023 documented in this encounter [facility] 04-04-2023 Note [facility] 04-04-2023 History of Present illness Narrative ativanPATIENT NAME: Marilin Mae [facility] NO.: [id number] ATTENDING PHYSICIAN: Anshul Riggs MD DATE OF SERVICE: April 04, 2023 Some of the elements of this note have been copied from my previous progress note dated 03/07/2023. All the information has been reviewed carefully. Dear Dr. Milvia Hinkle, here is an update on a follow up visit on female Marilin Mae at the clinic April 04, 2023 Diagnosis: GBM with methylated MGMT- R Parietal multifocal lesion Treatment History: 08/14/2022: 1. Right parietal craniotomy for resection of multifocal brain lesion . Use of intraoperative neuro navigation for intradural procedure . Intraoperative MRI brain Modifier 22 - increased complexity, length, risk, and difficulty due to location adjacent to eloquent structures necessitating neuro monitoring for cortical motor mapping and bipolar stim 2. DVT Post op- IVC filter 08/18/2022 due to Subdural hematoma- Resolved on CT 09/19/2022- Eliquis started 09/19/2022 2. Temodar and XRT 09/13/2022-10/24/2022 3. Temodar 150 mg/m2 11/08/2022 HPI: Marilin Mae is a 78 year old year old female here for follow up. She states that the Ritalin has helped and wondering if she can take more only in the morning. She is eatong well and denies any seizures and or WATKINS. Continues on the dex. PAST MEDICAL HISTORY Diagnosis Date Arthritis Brain mass 2021 Cataracts, bilateral Family history of cancer History of blood clots HTN (hypertension) Hyperlipidemia Social History Tobacco Use Smoking status: Never Passive exposure: Never Smokeless tobacco: Never Vaping Use Vaping Use: Never used Substance Use Topics Alcohol use: Not Currently Alcohol/week: 1.0 standard drink of alcohol Types: 1 Glasses of wine per week Comment: 1 glass per day Drug use: Never FAMILY HISTORY Problem Relation Age of Onset Stroke Mother Past medical, social and family history reviewed without any changes. REVIEW OF SYSTEMS GENERAL: No weight loss, malaise or fevers. No night sweats. HEENT: Negative for headaches, No changes in hearing or vision, no nose bleeds or other nasal problems. RESPIRATORY: Negative for cough, wheezing and shortness of breath CARDIOVASCULAR: Negative for chest pain, leg swelling and palpitations GI: Negative for abdominal discomfort, blood in stools or black stools and change in bowel habits : Negative for dysuria, frequency and incontinence MUSCULOSKELETAL: Negative for joint pain or swelling, back pain, and muscle pain. SKIN: Negative for lesions, rash, and itching. HEMATOLOGY/LYMPHOLOGY Negative for prolonged bleeding, bruising easily, and swollen nodes. NEURO: Negative for numbness or tingling of hands/feet. No weakness. PHYSICAL EXAMINATION: BP 103/62 Pulse 93 Temp (Src) 97.3 (Temporal) Resp 16 SpO2 95% Wt 73.5 kg (162 lb) BMI 27.79 kg/m2 Last 3 Encounter Wt Readings: Date: Wt: 09/27/2022 73.5 kg (162 lb) 09/20/2022 72 kg (158 lb 12.8 oz) 09/19/2022 70.1 kg (154 lb 9.6 oz) General appearance:ECOG PERFORMANCE STATUS: 1- Restricted in physically strenuous activity. Carries out light duty. Patient in NAD. Skin: Skin color, texture, turgor normal. No rashes or lesions. Eyes: Anicteric sclera. Pupils are equally round and reactive to light. Extraocular movements are intact. Lymph Nodes: No cervical, supraclavicular, axillary or inguinal adenopathy. Oropharynx: Lips, mucosa, and tongue normal. Back: No pain to percussion. Negative SLR test Lungs clear to auscultation, No wheezing or rhonchi Heart: RRR without murmur, gallop, or rubs. Abdomen soft, non-tender. No masses, organomegaly Extremities: No deformities. No edema Neuro: Gait and speech normal. Reflexes normal and symmetric. Muscular strength intact. Sensation grossly intact. Rectal: Deferred : Deferred LABS: Glucose (mg/dL) Date Value 03/07/2023 139 Potassium (mmol/L) Date Value 03/07/2023 4.2 Sodium (mmol/L) Date Value 03/07/2023 138 Chloride (mmol/L) Date Value 03/07/2023 100 CO2 (mmol/L) Date Value 03/07/2023 25 Creatinine (mg/dL) Date Value 03/07/2023 0.94 BUN (mg/dL) Date Value 03/07/2023 37 Anion Gap (mmol/L) Date Value 03/07/2023 13 Calcium, Total (mg/dL) Date Value 03/07/2023 9.6 Protein, Total (g/dL) Date Value 03/07/2023 6.1 Albumin (g/dL) Date Value 03/07/2023 4.1 Bilirubin, Total (mg/dL) Date Value 03/07/2023 0.3 Alkaline Phosphatase (U/L) Date Value 03/07/2023 39 AST (U/L) Date Value 03/07/2023 14 ALT (U/L) Date Value 03/07/2023 15 WBC Date Value Ref Range Status 04/04/2023 9.63 3.70 - 11.00 k/uL Preliminary RBC Date Value Ref Range Status 04/04/2023 3.47 (L) 3.90 - 5.20 m/uL Preliminary Hemoglobin Date Value Ref Range Status 04/04/2023 11.3 (L) 11.5 - 15.5 g/dL Preliminary Hematocrit Date Value Ref Range Status 04/04/2023 34.4 (L) 36.0 - 46.0 % Preliminary MCV Date Value Ref Range Status 04/04/2023 99.1 80.0 - 100.0 fL Preliminary MCH Date Value Ref Range Status 04/04/2023 32.6 26.0 - 34.0 pg Preliminary MCHC Date Value Ref Range Status 04/04/2023 32.8 30.5 - 36.0 g/dL Preliminary RDW-CV Date Value Ref Range Status 04/04/2023 15.2 (H) 11.5 - 15.0 % Preliminary Platelet Count Date Value Ref Range Status 04/04/2023 196 150 - 400 k/uL Preliminary MPV Date Value Ref Range Status 04/04/2023 10.0 9.0 - 12.7 fL Preliminary Abs Neut (Segs + Bands) Date Value Ref Range Status 03/07/2023 9.49 (H) 1.45 - 7.50 k/uL Final Lymphocytes % Date Value Ref Range Status 03/07/2023 1.7 % Final Abs Lymph (Normal + Reactive) Date Value Ref Range Status 03/07/2023 0.17 (L) 1.00 - 4.00 k/uL Final Monocytes % Date Value Ref Range Status 03/07/2023 2.6 % Final Abs [place] Date Value Ref Range Status 03/07/2023 0.26 <0.87 k/uL Final Eosin% Date Value Ref Range Status 03/07/2023 0.0 % Final Abs Eosin Date Value Ref Range Status 03/07/2023 0.00 <0.46 k/uL Final Basophils % Date Value Ref Range Status 03/07/2023 0.0 % Final Abs Baso Date Value Ref Range Status 03/07/2023 0.00 <0.11 k/uL Final PATH: 08/14/2022 Craniotomy: FINAL DIAGNOSIS A-B. Right parietal lobe, excision: - Morphologically consistent with high grade glioma. RAP/barron 08/17/2022 Diagnosis Comment The tumor is marked by prominent cellularity, identifiable mitotic activity, vascular proliferative changes and necrosis. Immunostains were performed on block B2. The tumor did not stain with antibody to IDH-1(R132H) . ATRX staining was retained. Focally, greater than 30% of cells demonstrate p53 immunostaining. A Ki-67 index in excess of 30% is noted. Additional molecular testing including 1p/19q FISH, EGFR FISH, MGMT analysis and IDH1/2 PCR have been ordered on this case and results will be signed out separately when available. If the tumor demonstrates evidence of co-deletion on chromosomes 1p and 19q and evidence of an IDH mutation, the tumor should be considered an oligodendroglioma, WHO Grade 3. If the tumor does not show both of the aforementioned molecular findings, the tumor should be considered a high grade astrocytic neoplasm. If the tumor represents an astrocytoma and demonstrates evidence of an IDH mutation, the tumor should be considered an astrocytoma, WHO Grade 4. If the tumor is an astrocytoma and does not show evidence of and IDH mutation, the tumor should be considered a glioblastoma, WHO Grade 4. Chromosome 1p: INTACT, EUSOMIC Chromosome 19q: INTACT, EUSOMIC RESULTS: EGFR AMPLIFIED IDH1 - No variant detected [Reference sequence: ([id number])]. IDH2 - No variant detected [Reference sequence: (NM_[id number])]. Hypermethylated (The mean methylation of MGMT promoter region is greater than or equal to 12%) IMAGING: MRI Brain 07/2022: Dominant heterogeneous enhancing masses are present in the right parietal lobe distorting the adjacent posterior right frontal lobe and paramedian right parietal lobe, measuring approximately 2.8 cm and 2 cm respectively. Additional smaller enhancing satellite nodules are visible. Main differential considerations are high-grade neoplasm such as glioblastoma, anaplastic astrocytoma or metastasis. There is local mass effect and effacement of the atrium of the right lateral ventricle. No gross midline shift or herniation. US 08/18/2022: LEFT SIDE - DEEP VEINS Acute proximal deep vein thrombosis in the femoral vein from proximal to distal. Acute proximal deep vein thrombosis in the popliteal vein. MRI Brain 12/08/2022: There is increasing enhancing parenchyma within the right parietal lobe resection site extending to the cingulate gyrus as seen on post contrast T1 images. The nature of this enhancement is indeterminant in that it could be due to granulation, radiation necrosis, or tumor recurrence. Although there does appears to be increased cerebral blood volume in this deep parietal area there is considerable susceptibility artifact from the blood products in this area making the cerebral blood volume maps unreliable. No evidence of leptomeningeal disease. MRI Brain 02/2023: Small area of patchy/confluent enhancement in the right parietal region which has decreased in extent since 12/08/2022. Right parietal resection cavity with thick peripheral linear enhancement seen. Stable extent confluent T2 and FLAIR hyperintensity in the right posterior frontal and parietal regions. Increased extent of bilateral confluent T2 and FLAIR hyperintensity involving the deep and periventricular white matter, perhaps chronic microvascular ischemic changes and/or posttreatment changes. Susceptibility/old hemorrhagic products along the margins of the right parietal resection cavity. Assessment and Plan: Marilin Mae is a 78 year old year old female here for follow up. 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 Continue at current dose. Will start cycle 6 this monthm this will be her final cycle of chemo DVT- Post IVC due to subdural hematoma. She had an IVC filter placed 08/18/[address] last week with near resolution of the subdural hematoma, she was started on 2.5 mg PO BID and plan a repeat CT 10/03/2022, which she did and on 5 mg BID Continues Dex 4 mg daily on PJP prophylaxis, discussed tapering and agrees Continue Paxil - refer to Behavioral health, may consider a VV Continue Ritalin for fatigue, which has helped See back in 4 weeks and labs and also repeat MRI Thank you for the kind referral. If there are any questions and or concerns please do not hesitate to contact me at [phone]. Anshul Riggs MD Hematology/Medical Oncology [facility] spent a total of 30 minutes on the date of the service which included preparing to see the patient, [id number] patient care, completing clinical documentation, obtaining and/or reviewing separately obtained history, performing a medically appropriate examination, counseling and educating the patient/family/caregiver, and ordering medications, tests, or procedures. CC: Milvia Hinkle MD documented in this encounter [facility] 04-02-2023 Miscellaneous Notes Called and spoke with pt's . He will have pt stop her evening dose of ritalin, and will continue morning dose for now. Sherry Winchester RN They can stop that Call received from pt's daughter stating pt can't continue taking the Ritalin BID because it's keeping her awake at night. Please advise Sherry Winchester RN documented in this encounter [facility] 03-27-2023 Miscellaneous Notes Called to inquire if pt feeling less tired with increase of Ritalin. She does note improvement. BOOGIE/MM: pended new RX. Please review and sign if agreeable. Tiffany Coffman RN documented in this encounter [facility] 03-23-2023 Miscellaneous Notes Pt's and daughter notified. They will try this over the weekend and if it helps pt will need a refill with new instructions on Sunday. Sherry Winchester RN She can take the 5 mg BID Pt daughter requesting increase of Ritalin. Mother remains tired on the 5 mgs. BOOGIE/MM: please advise Tiffany Coffman RN documented in this encounter [facility] 03-13-2023 Miscellaneous Notes Telephone Encounter~ Person of Contact: Marilin Carmelita Reason for Call: IVC filter f/u Outcome of Call: Gave patient number for US and vascular medicine for missed appointments. She is tolerating Eliquis well, no bleeding. Contact Number Given: Yes Number of minutes: A total of (10) minutes was spent on this encounter Danica Neville APRN.CNP March 13, 2023 documented in this encounter [facility] 03-07-2023 Note [facility] 02-23-2023 Miscellaneous Notes Radiology Service Progress Note DATE OF SERVICE: February 23, 2023 TIME: 11:48 AM PATIENT IDENTITY VERIFICATION COMPLETED USING TWO (2) STANDARD IDENTIFIERS: Name and Date of confirmed by patient verbally and Name and Date of confirmed by identification band. FALL SCREENING: Has the patient had 2 falls in the last year or 1 fall with injury or currently using an Ambulatory Assistive Device (Walker, Cane, Wheelchair, Crutches, etc.)? Yes, Patient High Risk for Falls What interventions were put in place to prevent falls during this visit? [place] Risk Wristband Applied, Instructed Patient to Call for Help if Needed, Offered Assistance with Transfers/Clothing, Instructed Patient to Remain Seated (Not on Exam Table) Until Exam, and Increased Observations by Caregivers PATIENT GENDER DATA: Female. status: : No status: NO. PATIENT RELEVANT IMPLANT DATA REVIEWED: Yes ALLERGIES: Reviewed and unchanged CONTRAST ALLERGY: NO. EXAM: MRI - CONTRAST TYPE: GROUP II PERIPHERAL IV DATA: Ambulatory: A peripheral IV was started in the Right with a Butterfly: 23 gauge. RADIOLOGY DEPARTMENT: MR; Exam(s) Completed: Head: Routine Brain SIGNATURE: RT Jonnie(R), RT Lubna(R) PATIENT NAME: Marilin Mae DATE: February 23, 2023 TIME: 11:48 AM documented in this encounter [facility] 02-07-2023 Note [facility] 02-07-2023 History of Present illness Narrative ativanPATIENT NAME: Marilin Mae [facility] NO.: [id number] ATTENDING PHYSICIAN: Anshul Riggs MD DATE OF SERVICE: February 07, 2023 Some of the elements of this note have been copied from my previous progress note dated 12/20/2022. All the information has been reviewed carefully. Dear Dr. 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 Right parietal craniotomy for resection of multifocal brain lesion . Use of intraoperative neuro navigation for intradural procedure . Intraoperative MRI brain Modifier 22 - increased complexity, length, risk, and difficulty due to location adjacent to eloquent structures necessitating neuro monitoring for cortical motor mapping and bipolar stim 2. DVT Post op- IVC filter 08/18/2022 due to Subdural hematoma- Resolved on CT 09/19/2022- Eliquis started 09/19/2022 2. Temodar and XRT 09/13/2022-10/24/2022 3. Temodar 150 mg/m2 11/08/2022 HPI: Marilin Mae is a 77 year old year old female here for follow up. She is getting stronger and does have L lower extremity swelling which gets better with compression stockings and also elevation. She is eating well and getting stronger. Still on Dex 4 mg daily PAST MEDICAL HISTORY Diagnosis Date Arthritis Brain mass 2021 Cataracts, bilateral Family history of cancer History of blood clots HTN (hypertension) Hyperlipidemia Social History Tobacco Use Smoking status: Never Passive exposure: Never Smokeless tobacco: Never Vaping Use Vaping Use: Never used Substance Use Topics Alcohol use: Not Currently Alcohol/week: 1.0 standard drink of alcohol Types: 1 Glasses of wine per week Comment: 1 glass per day Drug use: Never FAMILY HISTORY Problem Relation Age of Onset Stroke Mother Past medical, social and family history reviewed without any changes. REVIEW OF SYSTEMS GENERAL: No weight loss, malaise or fevers. No night sweats. HEENT: Negative for headaches, No changes in hearing or vision, no nose bleeds or other nasal problems. RESPIRATORY: Negative for cough, wheezing and shortness of breath CARDIOVASCULAR: Negative for chest pain, leg swelling and palpitations GI: Negative for abdominal discomfort, blood in stools or black stools and change in bowel habits : Negative for dysuria, frequency and incontinence MUSCULOSKELETAL: Negative for joint pain or swelling, back pain, and muscle pain. SKIN: Negative for lesions, rash, and itching. HEMATOLOGY/LYMPHOLOGY Negative for prolonged bleeding, bruising easily, and swollen nodes. NEURO: Negative for numbness or tingling of hands/feet. No weakness. PHYSICAL EXAMINATION: Ht 5' 4.016 (1.63m) Wt 73.5 kg (162 lb) BMI 27.79 kg/m2 Last 3 Encounter Wt Readings: Date: Wt: 09/27/2022 73.5 kg (162 lb) 09/20/2022 72 kg (158 lb 12.8 oz) 09/19/2022 70.1 kg (154 lb 9.6 oz) General appearance:ECOG PERFORMANCE STATUS: 1- Restricted in physically strenuous activity. Carries out light duty. Patient in NAD. Skin: Skin color, texture, turgor normal. No rashes or lesions. Eyes: Anicteric sclera. Pupils are equally round and reactive to light. Extraocular movements are intact. Lymph Nodes: No cervical, supraclavicular, axillary or inguinal adenopathy. Oropharynx: Lips, mucosa, and tongue normal. Back: No pain to percussion. Negative SLR test Lungs clear to auscultation, No wheezing or rhonchi Heart: RRR without murmur, gallop, or rubs. Abdomen soft, non-tender. No masses, organomegaly Extremities: No deformities. No edema Neuro: Gait and speech normal. Reflexes normal and symmetric. Muscular strength intact. Sensation grossly intact. Rectal: Deferred : Deferred LABS: Glucose (mg/dL) Date Value 01/09/2023 161 Potassium (mmol/L) Date Value 01/09/2023 3.4 Sodium (mmol/L) Date Value 01/09/2023 139 Chloride (mmol/L) Date Value 01/09/2023 101 CO2 (mmol/L) Date Value 01/09/2023 26 Creatinine (mg/dL) Date Value 01/09/2023 0.80 BUN (mg/dL) Date Value 01/09/2023 47 Anion Gap (mmol/L) Date Value 01/09/2023 12 Calcium, Total (mg/dL) Date Value 01/09/2023 10.0 Protein, Total (g/dL) Date Value 01/09/2023 6.1 Albumin (g/dL) Date Value 01/09/2023 3.8 Bilirubin, Total (mg/dL) Date Value 01/09/2023 0.6 Alkaline Phosphatase (U/L) Date Value 01/09/2023 60 AST (U/L) Date Value 01/09/2023 12 ALT (U/L) Date Value 01/09/2023 16 WBC Date Value Ref Range Status 01/09/2023 9.86 3.70 - 11.00 k/uL Final RBC Date Value Ref Range Status 01/09/2023 3.40 (L) 3.90 - 5.20 m/uL Final Hemoglobin Date Value Ref Range Status 01/09/2023 10.4 (L) 11.5 - 15.5 g/dL Final Hematocrit Date Value Ref Range Status 01/09/2023 31.3 (L) 36.0 - 46.0 % Final MCV Date Value Ref Range Status 01/09/2023 92.1 80.0 - 100.0 fL Final MCH Date Value Ref Range Status 01/09/2023 30.6 26.0 - 34.0 pg Final MCHC Date Value Ref Range Status 01/09/2023 33.2 30.5 - 36.0 g/dL Final RDW-CV Date Value Ref Range Status 01/09/2023 17.1 (H) 11.5 - 15.0 % Final Platelet Count Date Value Ref Range Status 01/09/2023 231 150 - 400 k/uL Final MPV Date Value Ref Range Status 01/09/2023 10.1 9.0 - 12.7 fL Final Abs Neut (Segs + Bands) Date Value Ref Range Status 01/09/2023 9.33 (H) 1.45 - 7.50 k/uL Final Lymphocytes % Date Value Ref Range Status 01/09/2023 2.7 % Final Abs Lymph (Normal + Reactive) Date Value Ref Range Status 01/09/2023 0.27 (L) 1.00 - 4.00 k/uL Final Monocytes % Date Value Ref Range Status 01/09/2023 0.9 % Final Abs [place] Date Value Ref Range Status 01/09/2023 0.09 <0.87 k/uL Final Eosin% Date Value Ref Range Status 01/09/2023 0.0 % Final Abs Eosin Date Value Ref Range Status 01/09/2023 0.00 <0.46 k/uL Final Basophils % Date Value Ref Range Status 01/09/2023 0.0 % Final Abs Baso Date Value Ref Range Status 01/09/2023 0.00 <0.11 k/uL Final PATH: 08/14/2022 Craniotomy: FINAL DIAGNOSIS A-B. Right parietal lobe, excision: - Morphologically consistent with high grade glioma. RAP/barron 08/17/2022 Diagnosis Comment The tumor is marked by prominent cellularity, identifiable mitotic activity, vascular proliferative changes and necrosis. Immunostains were performed on block B2. The tumor did not stain with antibody to IDH-1(R132H) . ATRX staining was retained. Focally, greater than 30% of cells demonstrate p53 immunostaining. A Ki-67 index in excess of 30% is noted. Additional molecular testing including 1p/19q FISH, EGFR FISH, MGMT analysis and IDH1/2 PCR have been ordered on this case and results will be signed out separately when available. If the tumor demonstrates evidence of co-deletion on chromosomes 1p and 19q and evidence of an IDH mutation, the tumor should be considered an oligodendroglioma, WHO Grade 3. If the tumor does not show both of the aforementioned molecular findings, the tumor should be considered a high grade astrocytic neoplasm. If the tumor represents an astrocytoma and demonstrates evidence of an IDH mutation, the tumor should be considered an astrocytoma, WHO Grade 4. If the tumor is an astrocytoma and does not show evidence of and IDH mutation, the tumor should be considered a glioblastoma, WHO Grade 4. Chromosome 1p: INTACT, EUSOMIC Chromosome 19q: INTACT, EUSOMIC RESULTS: EGFR AMPLIFIED IDH1 - No variant detected [Reference sequence: ([id number])]. IDH2 - No variant detected [Reference sequence: ([id number])]. Hypermethylated (The mean methylation of MGMT promoter region is greater than or equal to 12%) IMAGING: MRI Brain 07/2022: Dominant heterogeneous enhancing masses are present in the right parietal lobe distorting the adjacent posterior right frontal lobe and paramedian right parietal lobe, measuring approximately 2.8 cm and 2 cm respectively. Additional smaller enhancing satellite nodules are visible. Main differential considerations are high-grade neoplasm such as glioblastoma, anaplastic astrocytoma or metastasis. There is local mass effect and effacement of the atrium of the right lateral ventricle. No gross midline shift or herniation. US 08/18/2022: LEFT SIDE - DEEP VEINS Acute proximal deep vein thrombosis in the femoral vein from proximal to distal. Acute proximal deep vein thrombosis in the popliteal vein. MRI Brain 12/08/2022: There is increasing enhancing parenchyma within the right parietal lobe resection site extending to the cingulate gyrus as seen on post contrast T1 images. The nature of this enhancement is indeterminant in that it could be due to granulation, radiation necrosis, or tumor recurrence. Although there does appears to be increased cerebral blood volume in this deep parietal area there is considerable susceptibility artifact from the blood products in this area making the cerebral blood volume maps unreliable. No evidence of leptomeningeal disease. Assessment and Plan: Marilin Mae is a 77 year old year old female here for follow up. 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 Continue at current dose. DVT- Post IVC due to subdural hematoma. She had an IVC filter placed 08/18/[address] last week with near resolution of the subdural hematoma, she was started on 2.5 mg PO BID and plan a repeat CT 10/03/2022, if that is negative will increase dose to 5 mg PO BID and need to also discuss removing the IVC filter at some point as well. Suggested decreasing Dex to 2 mg daily and on PJP prophylaxis l. Continue Paxil Continue Keppra at the current dose See back in 4 weeks and MRI scheduled for 02/23/2023 Thank you for the kind referral. If there are any questions and or concerns please do not hesitate to contact me at [phone]. Anshul Riggs MD Hematology/Medical Oncology [facility] I spent a total of 30 minutes on the date of the service which included preparing to see the patient, [id number] patient care, completing clinical documentation, obtaining and/or reviewing separately obtained history, performing a medically appropriate examination, counseling and educating the patient/family/caregiver, and ordering medications, tests, or procedures. CC: Milvia Hinkle MD documented in this encounter [facility] 01-18-2023 Miscellaneous Notes The following approved medication requests have been denied. Requested Prescriptions Refused Prescriptions Disp Refills famotidine (PEPCID) 20 mg tablet 60 tablet 0 Sig: Take 1 tablet by mouth twice daily in the morning and before bedtime. Refused By: ALYSSA ESPARZA Reason for Refusal: A Refill not appropriate Alyssa Esparza APRN.DIRECTOR OF CARDIOPULMONARY SERVICES documented in this encounter [facility] 01-09-2023 Note [facility] 01-09-2023 Miscellaneous Notes Sorry, I forgot the total dose as a group. Total dose = 265mg Oskar RameyD, BCOP documented in this encounter [facility] 01-09-2023 History of Present illness Narrative PATIENT NAME: Marilin Mae [facility] NO.: [id number] ATTENDING PHYSICIAN: Anshul Riggs MD DATE OF SERVICE: January 09, 2023 (Elements copied from Dr. 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 Right parietal craniotomy for resection of multifocal brain lesion . Use of intraoperative neuro navigation for intradural procedure . Intraoperative MRI brain Modifier 22 - increased complexity, length, risk, and difficulty due to location adjacent to eloquent structures necessitating neuro monitoring for cortical motor mapping and bipolar stim 2. DVT Post op- IVC filter 08/18/2022 due to Subdural hematoma- Resolved on CT 09/19/2022- Eliquis started 09/19/2022 2. Temodar and XRT 09/13/2022-10/24/2022 3. Temodar 150 mg/m2 11/08/2022 HPI: Marilin returns for follow up. She is doing better each day. Her elbow is healing. She is starting to walk on her own again. She remains on dex 4mg daily. They tried to do every other day, but she wasn't able to walk when they decreased the dose. She did decrease her keppra as recommended and has not had any seizure activity. She is eating and drinking well. She denies any headaches. For the last 2 days she has had some tenderness off and on the right side of her head. No swelling or masses. She did restart her HCTZ because she developed some swelling in her right foot which improved with the HCTZ. PAST MEDICAL HISTORY Diagnosis Date Arthritis Brain mass 2021 Cataracts, bilateral Family history of cancer History of blood clots HTN (hypertension) Hyperlipidemia Social History Tobacco Use Smoking status: Never Smokeless tobacco: Never Vaping Use Vaping Use: Never used Substance Use Topics Alcohol use: Not Currently Alcohol/week: 1.0 standard drink Types: 1 Glasses of wine per week Comment: 1 glass per day Drug use: Never FAMILY HISTORY Problem Relation Age of Onset Stroke Mother Past medical, social and family history reviewed without any changes. REVIEW OF SYSTEMS GENERAL: No weight loss, malaise or fevers. No night sweats. HEENT: Negative for headaches, No changes in hearing or vision, no nose bleeds or other nasal problems.+tenderness to right head RESPIRATORY: Negative for cough, wheezing and shortness of breath CARDIOVASCULAR: Negative for chest pain, leg swelling and palpitations GI: Negative for abdominal discomfort, blood in stools or black stools and change in bowel habits : Negative for dysuria, frequency and incontinence MUSCULOSKELETAL: Negative for joint pain or swelling, back pain, and muscle pain. SKIN: Negative for lesions, rash, and itching. HEMATOLOGY/LYMPHOLOGY Negative for prolonged bleeding, bruising easily, and swollen nodes. NEURO: Negative for numbness or tingling of hands/feet. No weakness. PHYSICAL EXAMINATION: BP 117/64 Pulse 79 Temp (Src) 97.8 (Temporal) Resp 16 Ht 5' 4.016 (1.63m) Wt 0 lb (0.0kg) SpO2 97% :ECOG PERFORMANCE STATUS: 1- Restricted in physically strenuous activity. Carries out light duty. General: Alert and oriented, no distress, pleasant and cooperative.In a wheelchair, mildly cushingoid Heart: Regular, normal S1 and S2, no murmurs, rubs, or gallops Lungs: Clear to auscultation bilaterally Abdomen: Benignm Extremities: mild edema to right foot LABS: Glucose (mg/dL) Date Value 01/09/2023 161 Potassium (mmol/L) Date Value 01/09/2023 3.4 Sodium (mmol/L) Date Value 01/09/2023 139 Chloride (mmol/L) Date Value 01/09/2023 101 CO2 (mmol/L) Date Value 01/09/2023 26 Creatinine (mg/dL) Date Value 01/09/2023 0.80 BUN (mg/dL) Date Value 01/09/2023 47 Anion Gap (mmol/L) Date Value 01/09/2023 12 Calcium, Total (mg/dL) Date Value 01/09/2023 10.0 Protein, Total (g/dL) Date Value 01/09/2023 6.1 Albumin (g/dL) Date Value 01/09/2023 3.8 Bilirubin, Total (mg/dL) Date Value 01/09/2023 0.6 Alkaline Phosphatase (U/L) Date Value 01/09/2023 60 AST (U/L) Date Value 01/09/2023 12 ALT (U/L) Date Value 01/09/2023 16 WBC Date Value Ref Range Status 01/09/2023 9.86 3.70 - 11.00 k/uL Preliminary RBC Date Value Ref Range Status 01/09/2023 3.40 (L) 3.90 - 5.20 m/uL Preliminary Hemoglobin Date Value Ref Range Status 01/09/2023 10.4 (L) 11.5 - 15.5 g/dL Preliminary Hematocrit Date Value Ref Range Status 01/09/2023 31.3 (L) 36.0 - 46.0 % Preliminary MCV Date Value Ref Range Status 01/09/2023 92.1 80.0 - 100.0 fL Preliminary MCH Date Value Ref Range Status 01/09/2023 30.6 26.0 - 34.0 pg Preliminary MCHC Date Value Ref Range Status 01/09/2023 33.2 30.5 - 36.0 g/dL Preliminary RDW-CV Date Value Ref Range Status 01/09/2023 17.1 (H) 11.5 - 15.0 % Preliminary Platelet Count Date Value Ref Range Status 01/09/2023 231 150 - 400 k/uL Preliminary MPV Date Value Ref Range Status 01/09/2023 10.1 9.0 - 12.7 fL Preliminary Abs Neut (Segs + Bands) Date Value Ref Range Status 12/20/2022 9.50 (H) 1.45 - 7.50 k/uL Final Lymphocytes % Date Value Ref Range Status 12/20/2022 3.0 % Final Abs Lymph (Normal + Reactive) Date Value Ref Range Status 12/20/2022 0.31 (L) 1.00 - 4.00 k/uL Final Monocytes % Date Value Ref Range Status 12/20/2022 4.0 % Final Abs [place] Date Value Ref Range Status 12/20/2022 0.41 <0.87 k/uL Final Eosin% Date Value Ref Range Status 12/20/2022 0.0 % Final Abs Eosin Date Value Ref Range Status 12/20/2022 0.00 <0.46 k/uL Final Basophils % Date Value Ref Range Status 12/20/2022 0.0 % Final Abs Baso Date Value Ref Range Status 12/20/2022 0.00 <0.11 k/uL Final PATH: 08/14/2022 Craniotomy: FINAL DIAGNOSIS A-B. Right parietal lobe, excision: - Morphologically consistent with high grade glioma. RAP/barron 08/17/2022 Diagnosis Comment The tumor is marked by prominent cellularity, identifiable mitotic activity, vascular proliferative changes and necrosis. Immunostains were performed on block B2. The tumor did not stain with antibody to IDH-1(R132H) . ATRX staining was retained. Focally, greater than 30% of cells demonstrate p53 immunostaining. A Ki-67 index in excess of 30% is noted. Additional molecular testing including 1p/19q FISH, EGFR FISH, MGMT analysis and IDH1/2 PCR have been ordered on this case and results will be signed out separately when available. If the tumor demonstrates evidence of co-deletion on chromosomes 1p and 19q and evidence of an IDH mutation, the tumor should be considered an oligodendroglioma, WHO Grade 3. If the tumor does not show both of the aforementioned molecular findings, the tumor should be considered a high grade astrocytic neoplasm. If the tumor represents an astrocytoma and demonstrates evidence of an IDH mutation, the tumor should be considered an astrocytoma, WHO Grade 4. If the tumor is an astrocytoma and does not show evidence of and IDH mutation, the tumor should be considered a glioblastoma, WHO Grade 4. Chromosome 1p: INTACT, EUSOMIC Chromosome 19q: INTACT, EUSOMIC RESULTS: EGFR AMPLIFIED IDH1 - No variant detected [Reference sequence: (NM_005896.2)]. IDH2 - No variant detected [Reference sequence: (NM_002168.2)]. Hypermethylated (The mean methylation of MGMT promoter region is greater than or equal to 12%) IMAGING: MRI Brain 07/2022: Dominant heterogeneous enhancing masses are present in the right parietal lobe distorting the adjacent posterior right frontal lobe and paramedian right parietal lobe, measuring approximately 2.8 cm and 2 cm respectively. Additional smaller enhancing satellite nodules are visible. Main differential considerations are high-grade neoplasm such as glioblastoma, anaplastic astrocytoma or metastasis. There is local mass effect and effacement of the atrium of the right lateral ventricle. No gross midline shift or herniation. US 08/18/2022: LEFT SIDE - DEEP VEINS Acute proximal deep vein thrombosis in the femoral vein from proximal to distal. Acute proximal deep vein thrombosis in the popliteal vein. MRI Brain 12/08/2022: There is increasing enhancing parenchyma within the right parietal lobe resection site extending to the cingulate gyrus as seen on post contrast T1 images. The nature of this enhancement is indeterminant in that it could be due to granulation, radiation necrosis, or tumor recurrence. Although there does appears to be increased cerebral blood volume in this deep parietal area there is considerable susceptibility artifact from the blood products in this area making the cerebral blood volume maps unreliable. No evidence of leptomeningeal disease. Assessment and Plan: Marilin Mae is a 78 year old year old female here for follow up. 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 Second course of Temodar was 12/08/2022-12/12/2022. Start cycle 3 of temodar. Repeat MRI in 2--3 monthsl . See us in 4 weeks. DVT- Post IVC due to subdural hematoma. She had an IVC filter placed 08/18/[address] last week with near resolution of the subdural hematoma, she was started on 2.5 mg PO BID and plan a repeat CT 10/03/2022, if that is negative will increase dose to 5 mg PO BID and need to also discuss removing the IVC filter at some point as well. For now continue Dex 4 mg, unable to tolerate every other day dosing. Continue PJP prophylaxis . Patient d/c'd fluoxetine due to side effects. Discussed with pharmacy who recommended trial of celexa and I did prescribe that today. Continue Keppra 750 mg once daily See back in 4 weeks Jessica Cartagena PA-C CC: Milvia Hinkle MD documented in this encounter [facility] 01-09-2023 Miscellaneous Notes Called to request refill on dexamethasone. Last script was 4mg Q48 Oskar RameyD, BCOP documented in this encounter [facility] 12-25-2022 Miscellaneous Notes Last note says to continue paxil, but I do not see Paxil on her meds list at all. I do see fluoxetine. Did you mean to continue the fluoxetine? If so she will need a refill on this please. Austin Haddad, PharmD, BCOP documented in this encounter [facility] 12-20-2022 Note [facility] 12-20-2022 History of Present illness Narrative ativanPATIENT NAME: Marilin Mae CLINIC NO.: [id number] ATTENDING PHYSICIAN: Anshul Riggs MD DATE OF SERVICE: December 20, 2022 Some of the elements of this note have been copied from my previous progress note dated 11/30/2022. All the information has been reviewed carefully. Dear Dr. 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 Right parietal craniotomy for resection of multifocal brain lesion . Use of intraoperative neuro navigation for intradural procedure . Intraoperative MRI brain Modifier 22 - increased complexity, length, risk, and difficulty due to location adjacent to eloquent structures necessitating neuro monitoring for cortical motor mapping and bipolar stim 2. DVT Post op- IVC filter 08/18/2022 due to Subdural hematoma- Resolved on CT 09/19/2022- Eliquis started 09/19/2022 2. Temodar and XRT 09/13/2022-10/24/2022 3. Temodar 150 mg/m2 11/08/2022 HPI: Marilin Mae is a 77 year old year old female here for follow up. She has a big fear of falling, she had a fall last week and has a possible elbow fracture and is seeing ortho for follow units. She is tired at all times and likes to sleep and denies any balance issues PAST MEDICAL HISTORY Diagnosis Date Arthritis Brain mass 2021 Cataracts, bilateral Family history of cancer History of blood clots HTN (hypertension) Hyperlipidemia Social History Tobacco Use Smoking status: Never Smokeless tobacco: Never Vaping Use Vaping Use: Never used Substance Use Topics Alcohol use: Not Currently Alcohol/week: 1.0 standard drink Types: 1 Glasses of wine per week Comment: 1 glass per day Drug use: Never FAMILY HISTORY Problem Relation Age of Onset Stroke Mother Past medical, social and family history reviewed without any changes. REVIEW OF SYSTEMS GENERAL: No weight loss, malaise or fevers. No night sweats. HEENT: Negative for headaches, No changes in hearing or vision, no nose bleeds or other nasal problems. RESPIRATORY: Negative for cough, wheezing and shortness of breath CARDIOVASCULAR: Negative for chest pain, leg swelling and palpitations GI: Negative for abdominal discomfort, blood in stools or black stools and change in bowel habits : Negative for dysuria, frequency and incontinence MUSCULOSKELETAL: Negative for joint pain or swelling, back pain, and muscle pain. SKIN: Negative for lesions, rash, and itching. HEMATOLOGY/LYMPHOLOGY Negative for prolonged bleeding, bruising easily, and swollen nodes. NEURO: Negative for numbness or tingling of hands/feet. No weakness. PHYSICAL EXAMINATION: BP 131/66 Pulse 79 Temp (Src) 97 (Temporal) Resp 18 Ht 5' 4.016 (1.63m) SpO2 99% Wt 73.5 kg (162 lb) BMI 27.79 kg/m2 Last 3 Encounter Wt Readings: Date: Wt: 09/27/2022 73.5 kg (162 lb) 09/20/2022 72 kg (158 lb 12.8 oz) 09/19/2022 70.1 kg (154 lb 9.6 oz) General appearance:ECOG PERFORMANCE STATUS: 1- Restricted in physically strenuous activity. Carries out light duty. Patient in NAD. Skin: Skin color, texture, turgor normal. No rashes or lesions. Eyes: Anicteric sclera. Pupils are equally round and reactive to light. Extraocular movements are intact. Lymph Nodes: No cervical, supraclavicular, axillary or inguinal adenopathy. Oropharynx: Lips, mucosa, and tongue normal. Back: No pain to percussion. Negative SLR test Lungs clear to auscultation, No wheezing or rhonchi Heart: RRR without murmur, gallop, or rubs. Abdomen soft, non-tender. No masses, organomegaly Extremities: No deformities. No edema Neuro: Gait and speech normal. Reflexes normal and symmetric. Muscular strength intact. Sensation grossly intact. Rectal: Deferred : Deferred LABS: Glucose (mg/dL) Date Value 11/30/2022 127 Potassium (mmol/L) Date Value 11/30/2022 3.7 Sodium (mmol/L) Date Value 11/30/2022 138 Chloride (mmol/L) Date Value 11/30/2022 101 CO2 (mmol/L) Date Value 11/30/2022 26 Creatinine (mg/dL) Date Value 11/30/2022 0.86 BUN (mg/dL) Date Value 11/30/2022 27 Anion Gap (mmol/L) Date Value 11/30/2022 11 Calcium, Total (mg/dL) Date Value 11/30/2022 9.4 Protein, Total (g/dL) Date Value 11/30/2022 6.0 Albumin (g/dL) Date Value 11/30/2022 3.8 Bilirubin, Total (mg/dL) Date Value 11/30/2022 0.7 Alkaline Phosphatase (U/L) Date Value 11/30/2022 53 AST (U/L) Date Value 11/30/2022 12 ALT (U/L) Date Value 11/30/2022 24 WBC Date Value Ref Range Status 12/20/2022 10.21 3.70 - 11.00 k/uL Preliminary RBC Date Value Ref Range Status 12/20/2022 3.88 (L) 3.90 - 5.20 m/uL Preliminary Hemoglobin Date Value Ref Range Status 12/20/2022 11.7 11.5 - 15.5 g/dL Preliminary Hematocrit Date Value Ref Range Status 12/20/2022 35.0 (L) 36.0 - 46.0 % Preliminary MCV Date Value Ref Range Status 12/20/2022 90.2 80.0 - 100.0 fL Preliminary MCH Date Value Ref Range Status 12/20/2022 30.2 26.0 - 34.0 pg Preliminary MCHC Date Value Ref Range Status 12/20/2022 33.4 30.5 - 36.0 g/dL Preliminary RDW-CV Date Value Ref Range Status 12/20/2022 15.5 (H) 11.5 - 15.0 % Preliminary Platelet Count Date Value Ref Range Status 12/20/2022 151 150 - 400 k/uL Preliminary MPV Date Value Ref Range Status 12/20/2022 10.5 9.0 - 12.7 fL Preliminary Abs Neut Date Value Ref Range Status 11/30/2022 6.88 1.45 - 7.50 k/uL Final Lymphocytes % Date Value Ref Range Status 11/30/2022 2.2 % Final Abs Lymph Date Value Ref Range Status 11/30/2022 0.17 (L) 1.00 - 4.00 k/uL Final Monocytes % Date Value Ref Range Status 11/30/2022 5.9 % Final Abs [place] Date Value Ref Range Status 11/30/2022 0.45 <0.87 k/uL Final Eosinophils % Date Value Ref Range Status 11/30/2022 0.0 % Final Abs Eosin Date Value Ref Range Status 11/30/2022 <0.03 <0.46 k/uL Final Basophils % Date Value Ref Range Status 11/30/2022 0.0 % Final Abs Baso Date Value Ref Range Status 11/30/2022 <0.03 <0.11 k/uL Final PATH: 08/14/2022 Craniotomy: FINAL DIAGNOSIS A-B. Right parietal lobe, excision: - Morphologically consistent with high grade glioma. RAP/barron 08/17/2022 Diagnosis Comment The tumor is marked by prominent cellularity, identifiable mitotic activity, vascular proliferative changes and necrosis. Immunostains were performed on block B2. The tumor did not stain with antibody to IDH-1(R132H) . ATRX staining was retained. Focally, greater than 30% of cells demonstrate p53 immunostaining. A Ki-67 index in excess of 30% is noted. Additional molecular testing including 1p/19q FISH, EGFR FISH, MGMT analysis and IDH1/2 PCR have been ordered on this case and results will be signed out separately when available. If the tumor demonstrates evidence of co-deletion on chromosomes 1p and 19q and evidence of an IDH mutation, the tumor should be considered an oligodendroglioma, WHO Grade 3. If the tumor does not show both of the aforementioned molecular findings, the tumor should be considered a high grade astrocytic neoplasm. If the tumor represents an astrocytoma and demonstrates evidence of an IDH mutation, the tumor should be considered an astrocytoma, WHO Grade 4. If the tumor is an astrocytoma and does not show evidence of and IDH mutation, the tumor should be considered a glioblastoma, WHO Grade 4. Chromosome 1p: INTACT, EUSOMIC Chromosome 19q: INTACT, EUSOMIC RESULTS: EGFR AMPLIFIED IDH1 - No variant detected [Reference sequence: (NM_[id number])]. IDH2 - No variant detected [Reference sequence: (NM_[id number])]. Hypermethylated (The mean methylation of MGMT promoter region is greater than or equal to 12%) IMAGING: MRI Brain 07/2022: Dominant heterogeneous enhancing masses are present in the right parietal lobe distorting the adjacent posterior right frontal lobe and paramedian right parietal lobe, measuring approximately 2.8 cm and 2 cm respectively. Additional smaller enhancing satellite nodules are visible. Main differential considerations are high-grade neoplasm such as glioblastoma, anaplastic astrocytoma or metastasis. There is local mass effect and effacement of the atrium of the right lateral ventricle. No gross midline shift or herniation. US 08/18/2022: LEFT SIDE - DEEP VEINS Acute proximal deep vein thrombosis in the femoral vein from proximal to distal. Acute proximal deep vein thrombosis in the popliteal vein. MRI Brain 12/08/2022: There is increasing enhancing parenchyma within the right parietal lobe resection site extending to the cingulate gyrus as seen on post contrast T1 images. The nature of this enhancement is indeterminant in that it could be due to granulation, radiation necrosis, or tumor recurrence. Although there does appears to be increased cerebral blood volume in this deep parietal area there is considerable susceptibility artifact from the blood products in this area making the cerebral blood volume maps unreliable. No evidence of leptomeningeal disease. Assessment and Plan: Marilin Mae is a 77 year old year old female here for follow up. 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 Plan for repeat MRI per NS. Second course of Temodar was 12/08/2022-12/12/2022 DVT- Post IVC due to subdural hematoma. She had an IVC filter placed 08/18/[address] last week with near resolution of the subdural hematoma, she was started on 2.5 mg PO BID and plan a repeat CT 10/03/2022, if that is negative will increase dose to 5 mg PO BID and need to also discuss removing the IVC filter at some point as well. For now continue Dex 4 mg and switch to every other day dosing if tolerable and on PJP prophylaxis as well. Continue Paxil Decrease Keppra to once daily and taper as that may contribute to fatigue See back in 3 weeks Stop HCTZ Thank you for the kind referral. If there are any questions and or concerns please do not hesitate to contact me at [phone]. Anshul Riggs MD Hematology/Medical Oncology [facility] spent a total of 30 minutes on the date of the service which included preparing to see the patient, [id number] patient care, completing clinical documentation, obtaining and/or reviewing separately obtained history, performing a medically appropriate examination, counseling and educating the patient/family/caregiver, and ordering medications, tests, or procedures. CC: Milvia Hinkle MD documented in this encounter [facility] 12-08-2022 Note [facility] 12-08-2022 Note [facility] 12-08-2022 Note [facility] 12-08-2022 Note [facility] 11-30-2022 Note [facility] 11-30-2022 History of Present illness Narrative ativanPATIENT NAME: Marilin Mae CLINIC NO.: [id number] ATTENDING PHYSICIAN: Anshul Riggs MD DATE OF SERVICE: November 30, 2022 Some of the elements of this note have been copied from my previous progress note dated 11/17/2022. All the information has been reviewed carefully. Dear Dr. 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 Right parietal craniotomy for resection of multifocal brain lesion . Use of intraoperative neuro navigation for intradural procedure . Intraoperative MRI brain Modifier 22 - increased complexity, length, risk, and difficulty due to location adjacent to eloquent structures necessitating neuro monitoring for cortical motor mapping and bipolar stim 2. DVT Post op- IVC filter 08/18/2022 due to Subdural hematoma- Resolved on CT 09/19/2022- Eliquis started 09/19/2022 2. Temodar and XRT 09/13/2022-10/24/2022 3. Temodar 150 mg/m2 11/08/2022 HPI: Marilin Mae is a 77 year old year old female here for follow up. She is feeling better and also getting stronger. Denies any nausea and also denies any abdominal pain. They can't decrease the dex lower than 4 BID at this time PAST MEDICAL HISTORY Diagnosis Date Arthritis Brain mass 2021 Cataracts, bilateral Family history of cancer History of blood clots HTN (hypertension) Hyperlipidemia Social History Tobacco Use Smoking status: Never Smokeless tobacco: Never Vaping Use Vaping Use: Never used Substance Use Topics Alcohol use: Not Currently Alcohol/week: 1.0 standard drink Types: 1 Glasses of wine per week Comment: 1 glass per day Drug use: Never FAMILY HISTORY Problem Relation Age of Onset Stroke Mother Past medical, social and family history reviewed without any changes. REVIEW OF SYSTEMS GENERAL: No weight loss, malaise or fevers. No night sweats. HEENT: Negative for headaches, No changes in hearing or vision, no nose bleeds or other nasal problems. RESPIRATORY: Negative for cough, wheezing and shortness of breath CARDIOVASCULAR: Negative for chest pain, leg swelling and palpitations GI: Negative for abdominal discomfort, blood in stools or black stools and change in bowel habits : Negative for dysuria, frequency and incontinence MUSCULOSKELETAL: Negative for joint pain or swelling, back pain, and muscle pain. SKIN: Negative for lesions, rash, and itching. HEMATOLOGY/LYMPHOLOGY Negative for prolonged bleeding, bruising easily, and swollen nodes. NEURO: Negative for numbness or tingling of hands/feet. No weakness. PHYSICAL EXAMINATION: BP 99/58 Pulse 89 Temp (Src) 97.4 (Temporal) Resp 16 Ht 5' 4.016 (1.63m) Wt 152 lb 6.4 oz (69.1kg) SpO2 96% BMI 26.15 kg/(m^2). Wt 73.5 kg (162 lb) BMI 27.79 kg/m2 Last 3 Encounter Wt Readings: Date: Wt: 09/27/2022 73.5 kg (162 lb) 09/20/2022 72 kg (158 lb 12.8 oz) 09/19/2022 70.1 kg (154 lb 9.6 oz) General appearance:ECOG PERFORMANCE STATUS: 1- Restricted in physically strenuous activity. Carries out light duty. Patient in NAD. Skin: Skin color, texture, turgor normal. No rashes or lesions. Eyes: Anicteric sclera. Pupils are equally round and reactive to light. Extraocular movements are intact. Lymph Nodes: No cervical, supraclavicular, axillary or inguinal adenopathy. Oropharynx: Lips, mucosa, and tongue normal. Back: No pain to percussion. Negative SLR test Lungs clear to auscultation, No wheezing or rhonchi Heart: RRR without murmur, gallop, or rubs. Abdomen soft, non-tender. No masses, organomegaly Extremities: No deformities. No edema Neuro: Gait and speech normal. Reflexes normal and symmetric. Muscular strength intact. Sensation grossly intact. Rectal: Deferred : Deferred LABS: Glucose (mg/dL) Date Value 11/17/2022 115 Potassium (mmol/L) Date Value 11/17/2022 4.4 Sodium (mmol/L) Date Value 11/17/2022 136 Chloride (mmol/L) Date Value 11/17/2022 98 CO2 (mmol/L) Date Value 11/17/2022 27 Creatinine (mg/dL) Date Value 11/17/2022 0.83 BUN (mg/dL) Date Value 11/17/2022 37 Anion Gap (mmol/L) Date Value 11/17/2022 11 Calcium, Total (mg/dL) Date Value 11/17/2022 9.6 Protein, Total (g/dL) Date Value 11/17/2022 6.3 Albumin (g/dL) Date Value 11/17/2022 4.2 Bilirubin, Total (mg/dL) Date Value 11/17/2022 0.6 Alkaline Phosphatase (U/L) Date Value 11/17/2022 44 AST (U/L) Date Value 11/17/2022 15 ALT (U/L) Date Value 11/17/2022 25 WBC Date Value Ref Range Status 11/17/2022 10.61 3.70 - 11.00 k/uL Final RBC Date Value Ref Range Status 11/17/2022 4.40 3.90 - 5.20 m/uL Final Hemoglobin Date Value Ref Range Status 11/17/2022 13.3 11.5 - 15.5 g/dL Final Hematocrit Date Value Ref Range Status 11/17/2022 39.4 36.0 - 46.0 % Final MCV Date Value Ref Range Status 11/17/2022 89.5 80.0 - 100.0 fL Final MCH Date Value Ref Range Status 11/17/2022 30.2 26.0 - 34.0 pg Final MCHC Date Value Ref Range Status 11/17/2022 33.8 30.5 - 36.0 g/dL Final RDW-CV Date Value Ref Range Status 11/17/2022 14.0 11.5 - 15.0 % Final Platelet Count Date Value Ref Range Status 11/17/2022 186 150 - 400 k/uL Final MPV Date Value Ref Range Status 11/17/2022 10.1 9.0 - 12.7 fL Final Abs Neut (Segs + Bands) Date Value Ref Range Status 11/17/2022 9.97 (H) 1.45 - 7.50 k/uL Final Lymphocytes % Date Value Ref Range Status 11/17/2022 4.0 % Final Abs Lymph (Normal + Reactive) Date Value Ref Range Status 11/17/2022 0.42 (L) 1.00 - 4.00 k/uL Final Monocytes % Date Value Ref Range Status 11/17/2022 2.0 % Final Abs [place] Date Value Ref Range Status 11/17/2022 0.21 <0.87 k/uL Final Eosin% Date Value Ref Range Status 11/17/2022 0.0 % Final Abs Eosin Date Value Ref Range Status 11/17/2022 0.00 <0.46 k/uL Final Basophils % Date Value Ref Range Status 11/17/2022 0.0 % Final Abs Baso Date Value Ref Range Status 11/17/2022 0.00 <0.11 k/uL Final PATH: 08/14/2022 Craniotomy: FINAL DIAGNOSIS A-B. Right parietal lobe, excision: - Morphologically consistent with high grade glioma. RAP/barron 08/17/2022 Diagnosis Comment The tumor is marked by prominent cellularity, identifiable mitotic activity, vascular proliferative changes and necrosis. Immunostains were performed on block B2. The tumor did not stain with antibody to IDH-1(R132H) . ATRX staining was retained. Focally, greater than 30% of cells demonstrate p53 immunostaining. A Ki-67 index in excess of 30% is noted. Additional molecular testing including 1p/19q FISH, EGFR FISH, MGMT analysis and IDH1/2 PCR have been ordered on this case and results will be signed out separately when available. If the tumor demonstrates evidence of co-deletion on chromosomes 1p and 19q and evidence of an IDH mutation, the tumor should be considered an oligodendroglioma, WHO Grade 3. If the tumor does not show both of the aforementioned molecular findings, the tumor should be considered a high grade astrocytic neoplasm. If the tumor represents an astrocytoma and demonstrates evidence of an IDH mutation, the tumor should be considered an astrocytoma, WHO Grade 4. If the tumor is an astrocytoma and does not show evidence of and IDH mutation, the tumor should be considered a glioblastoma, WHO Grade 4. Chromosome 1p: INTACT, EUSOMIC Chromosome 19q: INTACT, EUSOMIC RESULTS: EGFR AMPLIFIED IDH1 - No variant detected [Reference sequence: (NM_005896.2)]. IDH2 - No variant detected [Reference sequence: (NM_002168.2)]. Hypermethylated (The mean methylation of MGMT promoter region is greater than or equal to 12%) IMAGING: MRI Brain 07/2022: Dominant heterogeneous enhancing masses are present in the right parietal lobe distorting the adjacent posterior right frontal lobe and paramedian right parietal lobe, measuring approximately 2.8 cm and 2 cm respectively. Additional smaller enhancing satellite nodules are visible. Main differential considerations are high-grade neoplasm such as glioblastoma, anaplastic astrocytoma or metastasis. There is local mass effect and effacement of the atrium of the right lateral ventricle. No gross midline shift or herniation. US 08/18/2022: LEFT SIDE - DEEP VEINS Acute proximal deep vein thrombosis in the femoral vein from proximal to distal. Acute proximal deep vein thrombosis in the popliteal vein. Assessment and Plan: Marilin Mae is a 77 year old year old female here for follow up. 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 Plan for repeat MRI per NS. Second course of Temodar 12/06/2022 DVT- Post IVC due to subdural hematoma. She had an IVC filter placed 08/18/[address] last week with near resolution of the subdural hematoma, she was started on 2.5 mg PO BID and plan a repeat CT 10/03/2022, if that is negative will increase dose to 5 mg PO BID and need to also discuss removing the IVC filter at some point as well. For now continue Dex 4 mg PO BID and on PJP prophylaxis as well. Continue Paxil Continue seizure meds See back in 3 weeks Requested Ativan prior to MRI Thank you for the kind referral. If there are any questions and or concerns please do not hesitate to contact me at [phone]. Anshul Riggs MD Hematology/Medical Oncology [facility] spent a total of 30 minutes on the date of the service which included preparing to see the patient, [id number] patient care, completing clinical documentation, obtaining and/or reviewing separately obtained history, performing a medically appropriate examination, counseling and educating the patient/family/caregiver, and ordering medications, tests, or procedures. CC: Milvia Hinkle MD documented in this encounter [facility] 11-30-2022 Note [facility] 11-17-2022 Note [facility] 11-17-2022 History of Present illness Narrative ativanPATIENT NAME: Marilin Mae [facility] NO.: [id number] ATTENDING PHYSICIAN: Anshul Riggs MD DATE OF SERVICE: November 17, 2022 Some of the elements of this note have been copied from my previous progress note dated 11/02/2022. All the information has been reviewed carefully. Dear Dr. 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 Right parietal craniotomy for resection of multifocal brain lesion . Use of intraoperative neuro navigation for intradural procedure . Intraoperative MRI brain Modifier 22 - increased complexity, length, risk, and difficulty due to location adjacent to eloquent structures necessitating neuro monitoring for cortical motor mapping and bipolar stim 2. DVT Post op- IVC filter 08/18/2022 due to Subdural hematoma- Resolved on CT 09/19/2022- Eliquis started 09/19/2022 2. Temodar and XRT 09/13/2022-10/24/2022 3. Temodar 150 mg/m2 11/08/2022 HPI: Marilin Mae is a 77 year old year old female here for follow up. She was hospitalized with increasing weakness and did have a UTI and repeat MRI was read at [facility] and it demonstrated New 6 mm ovoid focus of enhancement at the cortical medullary junction of he right paracentral lobule at the cingulate sulcus suspicious for metastatic disease and a repeat MRI with perfusion was requested and pending. She was in rehab and she has been doing better, ahe also did well with her first cycle of Temodar. She is still on the dex BID dosing and was also started on Bactrim prophylaxis PAST MEDICAL HISTORY Diagnosis Date Arthritis Brain mass 2021 Cataracts, bilateral Family history of cancer History of blood clots HTN (hypertension) Hyperlipidemia Social History Tobacco Use Smoking status: Never Smokeless tobacco: Never Vaping Use Vaping Use: Never used Substance Use Topics Alcohol use: Not Currently Alcohol/week: 1.0 standard drink Types: 1 Glasses of wine per week Comment: 1 glass per day Drug use: Never FAMILY HISTORY Problem Relation Age of Onset Stroke Mother Past medical, social and family history reviewed without any changes. REVIEW OF SYSTEMS GENERAL: No weight loss, malaise or fevers. No night sweats. HEENT: Negative for headaches, No changes in hearing or vision, no nose bleeds or other nasal problems. RESPIRATORY: Negative for cough, wheezing and shortness of breath CARDIOVASCULAR: Negative for chest pain, leg swelling and palpitations GI: Negative for abdominal discomfort, blood in stools or black stools and change in bowel habits : Negative for dysuria, frequency and incontinence MUSCULOSKELETAL: Negative for joint pain or swelling, back pain, and muscle pain. SKIN: Negative for lesions, rash, and itching. HEMATOLOGY/LYMPHOLOGY Negative for prolonged bleeding, bruising easily, and swollen nodes. NEURO: Negative for numbness or tingling of hands/feet. No weakness. PHYSICAL EXAMINATION: BP 115/61 Pulse 78 Temp (Src) 97.3 (Temporal) Resp 16 Ht 5' 4.016 (1.63m) Wt 154 lb (69.9kg) SpO2 94% BMI 26.42 kg/(m^2). Wt 73.5 kg (162 lb) BMI 27.79 kg/m2 Last 3 Encounter Wt Readings: Date: Wt: 09/27/2022 73.5 kg (162 lb) 09/20/2022 72 kg (158 lb 12.8 oz) 09/19/2022 70.1 kg (154 lb 9.6 oz) General appearance:ECOG PERFORMANCE STATUS: 1- Restricted in physically strenuous activity. Carries out light duty. Patient in NAD. Skin: Skin color, texture, turgor normal. No rashes or lesions. Eyes: Anicteric sclera. Pupils are equally round and reactive to light. Extraocular movements are intact. Lymph Nodes: No cervical, supraclavicular, axillary or inguinal adenopathy. Oropharynx: Lips, mucosa, and tongue normal. Back: No pain to percussion. Negative SLR test Lungs clear to auscultation, No wheezing or rhonchi Heart: RRR without murmur, gallop, or rubs. Abdomen soft, non-tender. No masses, organomegaly Extremities: No deformities. No edema Neuro: Gait and speech normal. Reflexes normal and symmetric. Muscular strength intact. Sensation grossly intact. Rectal: Deferred : Deferred LABS: Glucose (mg/dL) Date Value 11/17/2022 115 Potassium (mmol/L) Date Value 11/17/2022 4.4 Sodium (mmol/L) Date Value 11/17/2022 136 Chloride (mmol/L) Date Value 11/17/2022 98 CO2 (mmol/L) Date Value 11/17/2022 27 Creatinine (mg/dL) Date Value 11/17/2022 0.83 BUN (mg/dL) Date Value 11/17/2022 37 Anion Gap (mmol/L) Date Value 11/17/2022 11 Calcium, Total (mg/dL) Date Value 11/17/2022 9.6 Protein, Total (g/dL) Date Value 11/17/2022 6.3 Albumin (g/dL) Date Value 11/17/2022 4.2 Bilirubin, Total (mg/dL) Date Value 11/17/2022 0.6 Alkaline Phosphatase (U/L) Date Value 11/17/2022 44 AST (U/L) Date Value 11/17/2022 15 ALT (U/L) Date Value 11/17/2022 25 WBC Date Value Ref Range Status 11/17/2022 10.61 3.70 - 11.00 k/uL Preliminary RBC Date Value Ref Range Status 11/17/2022 4.40 3.90 - 5.20 m/uL Preliminary Hemoglobin Date Value Ref Range Status 11/17/2022 13.3 11.5 - 15.5 g/dL Preliminary Hematocrit Date Value Ref Range Status 11/17/2022 39.4 36.0 - 46.0 % Preliminary MCV Date Value Ref Range Status 11/17/2022 89.5 80.0 - 100.0 fL Preliminary MCH Date Value Ref Range Status 11/17/2022 30.2 26.0 - 34.0 pg Preliminary MCHC Date Value Ref Range Status 11/17/2022 33.8 30.5 - 36.0 g/dL Preliminary RDW-CV Date Value Ref Range Status 11/17/2022 14.0 11.5 - 15.0 % Preliminary Platelet Count Date Value Ref Range Status 11/17/2022 186 150 - 400 k/uL Preliminary MPV Date Value Ref Range Status 11/17/2022 10.1 9.0 - 12.7 fL Preliminary Abs Neut (Segs + Bands) Date Value Ref Range Status 11/16/2022 6.97 1.45 - 7.50 k/uL Final Lymphocytes % Date Value Ref Range Status 11/16/2022 2.0 % Final Abs Lymph (Normal + Reactive) Date Value Ref Range Status 11/16/2022 0.15 (L) 1.00 - 4.00 k/uL Final Monocytes % Date Value Ref Range Status 11/16/2022 5.0 % Final Abs [place] Date Value Ref Range Status 11/16/2022 0.38 <0.87 k/uL Final Eosin% Date Value Ref Range Status 11/16/2022 0.0 % Final Abs Eosin Date Value Ref Range Status 11/16/2022 0.00 <0.46 k/uL Final Basophils % Date Value Ref Range Status 11/16/2022 0.0 % Final Abs Baso Date Value Ref Range Status 11/16/2022 0.00 <0.11 k/uL Final PATH: 08/14/2022 Craniotomy: FINAL DIAGNOSIS A-B. Right parietal lobe, excision: - Morphologically consistent with high grade glioma. RAP/barron 08/17/2022 Diagnosis Comment The tumor is marked by prominent cellularity, identifiable mitotic activity, vascular proliferative changes and necrosis. Immunostains were performed on block B2. The tumor did not stain with antibody to IDH-1(R132H) . ATRX staining was retained. Focally, greater than 30% of cells demonstrate p53 immunostaining. A Ki-67 index in excess of 30% is noted. Additional molecular testing including 1p/19q FISH, EGFR FISH, MGMT analysis and IDH1/2 PCR have been ordered on this case and results will be signed out separately when available. If the tumor demonstrates evidence of co-deletion on chromosomes 1p and 19q and evidence of an IDH mutation, the tumor should be considered an oligodendroglioma, WHO Grade 3. If the tumor does not show both of the aforementioned molecular findings, the tumor should be considered a high grade astrocytic neoplasm. If the tumor represents an astrocytoma and demonstrates evidence of an IDH mutation, the tumor should be considered an astrocytoma, WHO Grade 4. If the tumor is an astrocytoma and does not show evidence of and IDH mutation, the tumor should be considered a glioblastoma, WHO Grade 4. Chromosome 1p: INTACT, EUSOMIC Chromosome 19q: INTACT, EUSOMIC RESULTS: EGFR AMPLIFIED IDH1 - No variant detected [Reference sequence: ([id number])]. IDH2 - No variant detected [Reference sequence: ([id number])]. Hypermethylated (The mean methylation of MGMT promoter region is greater than or equal to 12%) IMAGING: MRI Brain 07/2022: Dominant heterogeneous enhancing masses are present in the right parietal lobe distorting the adjacent posterior right frontal lobe and paramedian right parietal lobe, measuring approximately 2.8 cm and 2 cm respectively. Additional smaller enhancing satellite nodules are visible. Main differential considerations are high-grade neoplasm such as glioblastoma, anaplastic astrocytoma or metastasis. There is local mass effect and effacement of the atrium of the right lateral ventricle. No gross midline shift or herniation. US 08/18/2022: LEFT SIDE - DEEP VEINS Acute proximal deep vein thrombosis in the femoral vein from proximal to distal. Acute proximal deep vein thrombosis in the popliteal vein. Assessment and Plan: Marilin Mae is a 77 year old year old female here for follow up. 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 Plan for repeat MRI per NS. DVT- Post IVC due to subdural hematoma. She had an IVC filter placed 08/18/[address] last week with near resolution of the subdural hematoma, she was started on 2.5 mg PO BID and plan a repeat CT 10/03/2022, if that is negative will increase dose to 5 mg PO BID and need to also discuss removing the IVC filter at some point as well. For now continue Dex 4 mg PO BID and on PJP prophylaxis as well. Continue Paxil Continue seizure meds See back in 2 weeks Thank you for the kind referral. If there are any questions and or concerns please do not hesitate to contact me at [phone]. Anshul Riggs MD Hematology/Medical Oncology [facility] spent a total of 30 minutes on the date of the service which included preparing to see the patient, [id number] patient care, completing clinical documentation, obtaining and/or reviewing separately obtained history, performing a medically appropriate examination, counseling and educating the patient/family/caregiver, and ordering medications, tests, or procedures. CC: Milvia Hinkle MD documented in this encounter [facility] 11-15-2022 Miscellaneous Notes Called patient left message with date and time of MRI [facility] 1st avaible appt for this specfic scan is December 08 at 1:50 I did take the appointment not sure what else to do? I will call patient once you guys are aware. Can we work on getting this MRI scheduled at [facility] in the [facility] building during recommended times of -, - per neuro's nurse recommendations. Thanks Sherry Winchester RN Ordered Spoke with Lien at [facility]. She states she's worked there for 10 years and she's only seen the orders as how the one is that I've pended for you to sign. She pulled pt's orders up and said the perfusion just needs to be stated in the comments like it is, there is no separate order. Sherry Winchester RN They wanted a perfusion scan and I am wondering if the order is different Call received from nurse in neuro. She states she orders these often and an MRI brain needs to be ordered with specific instructions in the comments to be diamox mr perfusion and can only be scheduled at [facility] building [facility] from -. I have included this in the order. KK: please sign PSS: please schedule at main in the [facility] building per instructions. Thanks Sherry Winchester RN Images from the original note were not included. Anshul Riggs MD You 4 days ago Called. Can you ask how I can order mri with perfusion. Thanks. Messages have been left with neurosurgery and radiation requesting help with this. Awaiting their calls back. Sherry Winchester RN Pt's daughter was here in the office today and is concerned about pt's recent hospitalization. She states pt's doctors had her and her roommate mixed up during her stay, and one doctor told her her results were normal and there was nothing that needed to be done, and another doctor said that here is new concerning results, and follow up was needed. Daughter states then the staff was very hush hush and wouldn't discuss any results with them, stating that they needed to follow up with Dr Riggs to get any testing results that were done while pt was admitted. Daughter is requesting to speak with Dr Riggs. Please call Suha at [phone] Thanks Sherry Winchester RN documented in this encounter [facility] 11-08-2022 Miscellaneous Notes DISCHARGE CALL BACK Today's date: November 08, 2022 Notified of Pt discharge by: MD-IT d/c folder Patient discharged on 11/07/22 from [facility] Primary Cancer Diagnosis: glioblastoma Admitting Diagnosis: weakness, brain tumor, HTN Discharge Summary/SBAR reviewed: Yes Handoff Discussed with [employer]: No, unavailable Psychosocial Risk Factors: None If patient discharged to SNF/Rehab Facility, phone call completed to reinforce discharge instructions and follow up: Yes, spoke with pt's daughter Call Disposition: Patient discharged to [facility] facility Sherry Winchester RN documented in this encounter [facility] 11-08-2022 Miscellaneous Notes I had patient's daughter Caridad Shetzer wanting to talk to you about patient being at [facility]. Caridad feels things were mixed up there. She wants to make sure everything is straight here. Can you please call Caridad back at [phone]?? Vianney Garcia documented in this encounter [facility] 11-07-2022 Note HNO ID: [id number] Author: Mya Langley RN Service: ? Author Type: Registered Nurse Type: Nursing Progress Note Filed: 11/07/2022 4:57 PM Note Text: Report called to acute rehab facility [facility] Report given to Nurse Nina Rosen. [facility] 11-07-2022 Note [facility] 11-06-2022 Note [facility] 11-06-2022 Note [facility] 11-04-2022 Note [facility] 11-04-2022 Note [facility] 11-03-2022 Miscellaneous Notes Call placed to pt's and notified him that we will be ordering home health and PT for pt. He likes this idea and will set things up with them when they call. Order and records faxed to [facility]. Sherry Winchester RN Please sign pending home health referral with physical therapy. I'll call and get it set up. Thanks Sherry Winchester RN ----- Message from Anshul Riggs MD sent at 11/02/2022 10:18 AM EDT ----- Regarding: PT Would it be possible to arrange home PT for her? Thanks documented in this encounter [facility] 11-02-2022 Note [facility] 11-02-2022 History of Present illness Narrative ativanPATIENT NAME: Marilin Mae CLINIC NO.: [id number] ATTENDING PHYSICIAN: Anshul Riggs MD DATE OF SERVICE: November 02, 2022 Some of the elements of this note have been copied from my previous progress note dated 09/27/2022. All the information has been reviewed carefully. Dear Dr. Milvia Hinkle, here is an update on a follow up visit on female Marilin Mae at the clinic November 02, 2022 Diagnosis: GBM with methylated MGMT- R Parietal multifocal lesion Treatment History: 08/14/2022: 1. Right parietal craniotomy for resection of multifocal brain lesion . Use of intraoperative neuro navigation for intradural procedure . Intraoperative MRI brain Modifier 22 - increased complexity, length, risk, and difficulty due to location adjacent to eloquent structures necessitating neuro monitoring for cortical motor mapping and bipolar stim 2. DVT Post op- IVC filter 08/18/2022 due to Subdural hematoma- Resolved on CT 09/19/2022- Eliquis started 09/19/2022 2. Temodar and XRT 09/13/2022-10/24/2022 HPI: Marilin Mae is a 77 year old year old female here for follow up. She apparantly had a reaction to the PPI with light headedness and shakiness which occurred on 2 occasions after she took the medicine. She denies any nausea and or WATKINS. She also states that she tried to taper the dex to once per day and she had sig weakness and better after the current 4 mg PO BID dosing. PAST MEDICAL HISTORY Diagnosis Date Arthritis Brain mass 2021 Cataracts, bilateral Family history of cancer History of blood clots HTN (hypertension) Hyperlipidemia Social History Tobacco Use Smoking status: Never Smokeless tobacco: Never Vaping Use Vaping Use: Never used Substance Use Topics Alcohol use: Not Currently Alcohol/week: 1.0 standard drink Types: 1 Glasses of wine per week Comment: 1 glass per day Drug use: Never FAMILY HISTORY Problem Relation Age of Onset Stroke Mother Past medical, social and family history reviewed without any changes. REVIEW OF SYSTEMS GENERAL: No weight loss, malaise or fevers. No night sweats. HEENT: Negative for headaches, No changes in hearing or vision, no nose bleeds or other nasal problems. RESPIRATORY: Negative for cough, wheezing and shortness of breath CARDIOVASCULAR: Negative for chest pain, leg swelling and palpitations GI: Negative for abdominal discomfort, blood in stools or black stools and change in bowel habits : Negative for dysuria, frequency and incontinence MUSCULOSKELETAL: Negative for joint pain or swelling, back pain, and muscle pain. SKIN: Negative for lesions, rash, and itching. HEMATOLOGY/LYMPHOLOGY Negative for prolonged bleeding, bruising easily, and swollen nodes. NEURO: Negative for numbness or tingling of hands/feet. No weakness. PHYSICAL EXAMINATION: BP 141/68 Pulse 77 Temp (Src) 97.6 (Temporal) Resp 16 Ht 5' 4.016 (1.63m) Wt 156 lb (70.8kg) SpO2 98% BMI 26.76 kg/(m^2). Wt 73.5 kg (162 lb) BMI 27.79 kg/m2 Last 3 Encounter Wt Readings: Date: Wt: 09/27/2022 73.5 kg (162 lb) 09/20/2022 72 kg (158 lb 12.8 oz) 09/19/2022 70.1 kg (154 lb 9.6 oz) General appearance:ECOG PERFORMANCE STATUS: 1- Restricted in physically strenuous activity. Carries out light duty. Patient in NAD. Skin: Skin color, texture, turgor normal. No rashes or lesions. Eyes: Anicteric sclera. Pupils are equally round and reactive to light. Extraocular movements are intact. Lymph Nodes: No cervical, supraclavicular, axillary or inguinal adenopathy. Oropharynx: Lips, mucosa, and tongue normal. Back: No pain to percussion. Negative SLR test Lungs clear to auscultation, No wheezing or rhonchi Heart: RRR without murmur, gallop, or rubs. Abdomen soft, non-tender. No masses, organomegaly Extremities: No deformities. No edema Neuro: Gait and speech normal. Reflexes normal and symmetric. Muscular strength intact. Sensation grossly intact. Rectal: Deferred : Deferred LABS: Glucose (mg/dL) Date Value 11/02/2022 117 Potassium (mmol/L) Date Value 11/02/2022 4.1 Sodium (mmol/L) Date Value 11/02/2022 135 Chloride (mmol/L) Date Value 11/02/2022 101 CO2 (mmol/L) Date Value 11/02/2022 28 Creatinine (mg/dL) Date Value 11/02/2022 0.75 BUN (mg/dL) Date Value 11/02/2022 27 Anion Gap (mmol/L) Date Value 11/02/2022 6 Calcium, Total (mg/dL) Date Value 11/02/2022 9.2 Protein, Total (g/dL) Date Value 11/02/2022 6.2 Albumin (g/dL) Date Value 11/02/2022 4.1 Bilirubin, Total (mg/dL) Date Value 11/02/2022 0.6 Alkaline Phosphatase (U/L) Date Value 11/02/2022 47 AST (U/L) Date Value 11/02/2022 9 ALT (U/L) Date Value 11/02/2022 13 WBC Date Value Ref Range Status 11/02/2022 9.83 3.70 - 11.00 k/uL Final RBC Date Value Ref Range Status 11/02/2022 4.52 3.90 - 5.20 m/uL Final Hemoglobin Date Value Ref Range Status 11/02/2022 13.7 11.5 - 15.5 g/dL Final Hematocrit Date Value Ref Range Status 11/02/2022 41.8 36.0 - 46.0 % Final MCV Date Value Ref Range Status 11/02/2022 92.5 80.0 - 100.0 fL Final MCH Date Value Ref Range Status 11/02/2022 30.3 26.0 - 34.0 pg Final MCHC Date Value Ref Range Status 11/02/2022 32.8 30.5 - 36.0 g/dL Final RDW-CV Date Value Ref Range Status 11/02/2022 13.5 11.5 - 15.0 % Final Platelet Count Date Value Ref Range Status 11/02/2022 179 150 - 400 k/uL Final MPV Date Value Ref Range Status 11/02/2022 10.8 9.0 - 12.7 fL Final Abs Neut Date Value Ref Range Status 11/02/2022 8.81 (H) 1.45 - 7.50 k/uL Final Lymphocytes % Date Value Ref Range Status 11/02/2022 3.4 % Final Abs Lymph Date Value Ref Range Status 11/02/2022 0.33 (L) 1.00 - 4.00 k/uL Final Monocytes % Date Value Ref Range Status 11/02/2022 5.7 % Final Abs [place] Date Value Ref Range Status 11/02/2022 0.56 <0.87 k/uL Final Eosinophils % Date Value Ref Range Status 11/02/2022 0.1 % Final Abs Eosin Date Value Ref Range Status 11/02/2022 <0.03 <0.46 k/uL Final Basophils % Date Value Ref Range Status 11/02/2022 0.1 % Final Abs Baso Date Value Ref Range Status 11/02/2022 <0.03 <0.11 k/uL Final PATH: 08/14/2022 Craniotomy: FINAL DIAGNOSIS A-B. Right parietal lobe, excision: - Morphologically consistent with high grade glioma. RAP/barron 08/17/2022 Diagnosis Comment The tumor is marked by prominent cellularity, identifiable mitotic activity, vascular proliferative changes and necrosis. Immunostains were performed on block B2. The tumor did not stain with antibody to IDH-1(R132H) . ATRX staining was retained. Focally, greater than 30% of cells demonstrate p53 immunostaining. A Ki-67 index in excess of 30% is noted. Additional molecular testing including 1p/19q FISH, EGFR FISH, MGMT analysis and IDH1/2 PCR have been ordered on this case and results will be signed out separately when available. If the tumor demonstrates evidence of co-deletion on chromosomes 1p and 19q and evidence of an IDH mutation, the tumor should be considered an oligodendroglioma, WHO Grade 3. If the tumor does not show both of the aforementioned molecular findings, the tumor should be considered a high grade astrocytic neoplasm. If the tumor represents an astrocytoma and demonstrates evidence of an IDH mutation, the tumor should be considered an astrocytoma, WHO Grade 4. If the tumor is an astrocytoma and does not show evidence of and IDH mutation, the tumor should be considered a glioblastoma, WHO Grade 4. Chromosome 1p: INTACT, EUSOMIC Chromosome 19q: INTACT, EUSOMIC RESULTS: EGFR AMPLIFIED IDH1 - No variant detected [Reference sequence: (NM_005896.2)]. IDH2 - No variant detected [Reference sequence: (NM_002168.2)]. Hypermethylated (The mean methylation of MGMT promoter region is greater than or equal to 12%) IMAGING: MRI Brain 07/2022: Dominant heterogeneous enhancing masses are present in the right parietal lobe distorting the adjacent posterior right frontal lobe and paramedian right parietal lobe, measuring approximately 2.8 cm and 2 cm respectively. Additional smaller enhancing satellite nodules are visible. Main differential considerations are high-grade neoplasm such as glioblastoma, anaplastic astrocytoma or metastasis. There is local mass effect and effacement of the atrium of the right lateral ventricle. No gross midline shift or herniation. US 08/18/2022: LEFT SIDE - DEEP VEINS Acute proximal deep vein thrombosis in the femoral vein from proximal to distal. Acute proximal deep vein thrombosis in the popliteal vein. Assessment and Plan: Marilin Mae is a 77 year old year old female here for follow up. 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 She had an IVC filter placed 08/18/[address] last week with near resolution of the subdural hematoma, she was started on 2.5 mg PO BID and plan a repeat CT 10/03/2022, if that is negative will increase dose to 5 mg PO BID and need to also discuss removing the IVC filter at some point as well. For now continue Dex 4 mg PO BID Continue Paxil Taper off SZ meds, she has never had a documented seizure See back in 2 weeks and plan repeat MRI of the Brain Home PT Thank you for the kind referral. If there are any questions and or concerns please do not hesitate to contact me at [phone]. Anshul Riggs MD Hematology/Medical Oncology [facility] spent a total of 30 minutes on the date of the service which included preparing to see the patient, [id number] patient care, completing clinical documentation, obtaining and/or reviewing separately obtained history, performing a medically appropriate examination, counseling and educating the patient/family/caregiver, and ordering medications, tests, or procedures. CC: Milvia Hinkle MD documented in this encounter [facility] 10-30-2022 Miscellaneous Notes Update office note faxed as requested. Aminah Bryant LPN Daughter calls stating pt was suppose to have a wheelchair and bedside commode ordered. Orders were placed by Dr Stallings, however the [employer] company needs a revised progress note. This has been requested by rad onc nurses. Call placed to [employer] ([facility]) and once they receive the updated progress noted, demographics, and insurance info they will call pt and deliver these items to her. Pt's daughter notified of this. Dr Stallings: please update progress note per their request. Thanks Sherry Winchester RN documented in this encounter [facility] 10-25-2022 Miscellaneous Notes I faxed orders to [employer]. To [phone]. Aminah Bryant LPN Marilin was walking back with her walker to her radiation therapy appt and her left leg was weak. She couldn't continue walking so I had her sit in a wheelchair. Dr. Stallings spoke to her and her while here for treatment. While helping Marilin out to her car today after radiation therapy I asked Marilin if she needed any assistance at home. She does not have a wheelchair or bedside commode and is very interested in getting these. Orders pending your approval. Dr. Stallings will you dictate an office visit note today stating the reason for the these devices? We will then fax the orders and letter to [employer] in [place]. Aminah Bryant LPN documented in this encounter [facility] 10-24-2022 Note [facility] 10-24-2022 Note [facility] 10-24-2022 Note [facility] 10-24-2022 History of Present illness Narrative Discussed with patients spouse who indicates that patient has had significant decline with decreasing steroid down to 2mg BID on Sunday. Agreed to increase to 4mg AM and 2mg PM and if no improvement at that dose, then will increase back to 4mg BID. Refill sent to pharmacy. Max Stallings MD documented in this encounter [facility] 10-24-2022 Miscellaneous Notes Refill pending your approval. Aminah Bryant LPN documented in this encounter [facility] 10-24-2022 History of Present illness Narrative Radiation Oncology - Note PATIENT NAME: Marilin Mae PATIENT DIAGNOSIS:Right parietal glioblastoma IDH wt, EGFR amplified, MGMT hypermethylated s/p STR of hemorrhagic mass on 08/14/2022 with post-operative DVT. COURSE: post-operative and concurrent chemotherapy (temozolomide) Area Treated: Partial brain (right) Current dose: 6000 cGy in 30 fx Planned dose: 6000 cGy in 30 fx Concurrent chemotherapy: Temozolomide Steroids: Yes, 2 mg BID Patient has been experiencing progression of generalized fatigue and weakness as well specifically in her left leg through the course of treatment and having difficulty ambulating with the assistance of a walker. She would benefit from the use of a wheelchair as well as a bedside commode. Her mentioned that she worsened clinically since Sunday after reducing steroids down to 2 mg BID. We agreed to increase back to 4mg AM and 2mg PM and may increase further to 4mg BID if no improvement. Prescription refill sent to pharmacy. Max Stallings MD documented in this encounter [facility] 10-20-2022 Note [facility] 10-20-2022 Instructions Jessica Cartagena PA-C - 10/20/2022 11:29 AM EDT Patient instruction for Decadron: Starting 10/23/2022 decrease decadron to 2mg (one tablet) twice a day for 7 days, then on 10/30/2022 take 2 mg (one tablet) for 7days, then see us on 11/03 Restart protonix (pantoprozole) every morning documented in this encounter [facility] 10-20-2022 History of Present illness Narrative PATIENT NAME: Marilin Mae [facility] NO.: [id number] ATTENDING PHYSICIAN: Anshul Riggs MD DATE OF SERVICE: October 20, 2022 (Elements copied from my note dated October 06, 2022, have been reviewed and updated where appropriate, and all reflect current assessment and medical decision making during today's encounter, October 20, 2022) CC: Follow up Diagnosis: GBM with methylated MGMT- R Parietal multifocal lesion Treatment History: 08/14/2022: 1. Right parietal craniotomy for resection of multifocal brain lesion . Use of intraoperative neuro navigation for intradural procedure . Intraoperative MRI brain Modifier 22 - increased complexity, length, risk, and difficulty due to location adjacent to eloquent structures necessitating neuro monitoring for cortical motor mapping and bipolar stim 2. DVT Post op- IVC filter 08/18/2022 due to Subdural hematoma- Resolved on CT 09/19/2022- Eliquis started 09/19/2022 2. Temodar and XRT 09/13/2022 HPI: Had rought weekend of significant muscle weakness and couldn't even walk. She was instructed to go back on Dex 4 mg BID as of 10/16/22. This helped immensely. She is still on temodar 135 mg daily and she will finish in 4-5 days along with radiation. On Eliquis and was able to get a year supply free. No signs of bleeding. No headaches. No nausea or vomiting. PAST MEDICAL HISTORY Diagnosis Date Arthritis Brain mass 2021 Cataracts, bilateral Family history of cancer History of blood clots HTN (hypertension) Hyperlipidemia Social History Tobacco Use Smoking status: Never Smokeless tobacco: Never Vaping Use Vaping Use: Never used Substance Use Topics Alcohol use: Not Currently Alcohol/week: 1.0 standard drink Types: 1 Glasses of wine per week Comment: 1 glass per day Drug use: Never FAMILY HISTORY Problem Relation Age of Onset Stroke Mother Past medical, social and family history reviewed without any changes. REVIEW OF SYSTEMS GENERAL: No weight loss, malaise or fevers. No night sweats. HEENT: Negative for headaches, No changes in hearing or vision, no nose bleeds or other nasal problems. RESPIRATORY: Negative for cough, wheezing and shortness of breath CARDIOVASCULAR: Negative for chest pain, leg swelling and palpitations GI: Negative for abdominal discomfort, blood in stools or black stools and change in bowel habits : Negative for dysuria, frequency and incontinence MUSCULOSKELETAL: Negative for joint pain or swelling, back pain, and muscle pain. SKIN: Negative for lesions, rash, and itching. HEMATOLOGY/LYMPHOLOGY Negative for prolonged bleeding, bruising easily, and swollen nodes. NEURO: Negative for numbness or tingling of hands/feet. No weakness. PHYSICAL EXAMINATION: BP 136/81 Pulse 70 Temp (Src) 97.5 (Temporal) Resp 16 Ht 5' 4.016 (1.63m) Wt 160 lb 6.4 oz (72.8kg) SpO2 95% BMI 27.52 kg/(m^2). ECOG PERFORMANCE STATUS: 1- Restricted in physically strenuous activity. Carries out light duty. General: Alert and oriented, no distress, pleasant and cooperative. Using a walker Heart: Regular, normal S1 and S2, no murmurs, rubs, or gallops Lungs: Clear to auscultation bilaterally Abdomen: Benign Extremities: Feet/ankles without edema, posterior tibial pulses full and symmetrical LABS: Glucose (mg/dL) Date Value 10/20/2022 108 Potassium (mmol/L) Date Value 10/20/2022 4.4 Sodium (mmol/L) Date Value 10/20/2022 140 Chloride (mmol/L) Date Value 10/20/2022 103 CO2 (mmol/L) Date Value 10/20/2022 26 Creatinine (mg/dL) Date Value 10/20/2022 0.74 BUN (mg/dL) Date Value 10/20/2022 19 Anion Gap (mmol/L) Date Value 10/20/2022 11 Calcium, Total (mg/dL) Date Value 10/20/2022 9.1 Protein, Total (g/dL) Date Value 10/20/2022 6.4 Albumin (g/dL) Date Value 10/20/2022 4.2 Bilirubin, Total (mg/dL) Date Value 10/20/2022 0.5 Alkaline Phosphatase (U/L) Date Value 10/20/2022 52 AST (U/L) Date Value 10/20/2022 10 ALT (U/L) Date Value 10/20/2022 9 WBC Date Value Ref Range Status 10/20/2022 9.32 3.70 - 11.00 k/uL Final RBC Date Value Ref Range Status 10/20/2022 4.28 3.90 - 5.20 m/uL Final Hemoglobin Date Value Ref Range Status 10/20/2022 13.1 11.5 - 15.5 g/dL Final Hematocrit Date Value Ref Range Status 10/20/2022 39.9 36.0 - 46.0 % Final MCV Date Value Ref Range Status 10/20/2022 93.2 80.0 - 100.0 fL Final MCH Date Value Ref Range Status 10/20/2022 30.6 26.0 - 34.0 pg Final MCHC Date Value Ref Range Status 10/20/2022 32.8 30.5 - 36.0 g/dL Final RDW-CV Date Value Ref Range Status 10/20/2022 13.6 11.5 - 15.0 % Final Platelet Count Date Value Ref Range Status 10/20/2022 270 150 - 400 k/uL Final MPV Date Value Ref Range Status 10/20/2022 10.6 9.0 - 12.7 fL Final Abs Neut Date Value Ref Range Status 10/20/2022 8.02 (H) 1.45 - 7.50 k/uL Final Lymphocytes % Date Value Ref Range Status 10/20/2022 4.4 % Final Abs Lymph Date Value Ref Range Status 10/20/2022 0.41 (L) 1.00 - 4.00 k/uL Final Monocytes % Date Value Ref Range Status 10/20/2022 8.0 % Final Abs [place] Date Value Ref Range Status 10/20/2022 0.75 <0.87 k/uL Final Eosinophils % Date Value Ref Range Status 10/20/2022 0.0 % Final Abs Eosin Date Value Ref Range Status 10/20/2022 <0.03 <0.46 k/uL Final Basophils % Date Value Ref Range Status 10/20/2022 0.1 % Final Abs Baso Date Value Ref Range Status 10/20/2022 <0.03 <0.11 k/uL Final PATH: 08/14/2022 Craniotomy: FINAL DIAGNOSIS A-B. Right parietal lobe, excision: - Morphologically consistent with high grade glioma. RAP/barron 08/17/2022 Diagnosis Comment The tumor is marked by prominent cellularity, identifiable mitotic activity, vascular proliferative changes and necrosis. Immunostains were performed on block B2. The tumor did not stain with antibody to IDH-1(R132H) . ATRX staining was retained. Focally, greater than 30% of cells demonstrate p53 immunostaining. A Ki-67 index in excess of 30% is noted. Additional molecular testing including 1p/19q FISH, EGFR FISH, MGMT analysis and IDH1/2 PCR have been ordered on this case and results will be signed out separately when available. If the tumor demonstrates evidence of co-deletion on chromosomes 1p and 19q and evidence of an IDH mutation, the tumor should be considered an oligodendroglioma, WHO Grade 3. If the tumor does not show both of the aforementioned molecular findings, the tumor should be considered a high grade astrocytic neoplasm. If the tumor represents an astrocytoma and demonstrates evidence of an IDH mutation, the tumor should be considered an astrocytoma, WHO Grade 4. If the tumor is an astrocytoma and does not show evidence of and IDH mutation, the tumor should be considered a glioblastoma, WHO Grade 4. Chromosome 1p: INTACT, EUSOMIC Chromosome 19q: INTACT, EUSOMIC RESULTS: EGFR AMPLIFIED IDH1 - No variant detected [Reference sequence: ([id number])]. IDH2 - No variant detected [Reference sequence: ([id number])]. Hypermethylated (The mean methylation of MGMT promoter region is greater than or equal to 12%) IMAGING: CT brain 10/03/2022 Stable postoperative changes. Negligible residua from prior subdural hematoma along the inner table of the prior craniotomy. No acute abnormalities. MRI Brain 07/2022: Dominant heterogeneous enhancing masses are present in the right parietal lobe distorting the adjacent posterior right frontal lobe and paramedian right parietal lobe, measuring approximately 2.8 cm and 2 cm respectively. Additional smaller enhancing satellite nodules are visible. Main differential considerations are high-grade neoplasm such as glioblastoma, anaplastic astrocytoma or metastasis. There is local mass effect and effacement of the atrium of the right lateral ventricle. No gross midline shift or herniation. US 08/18/2022: LEFT SIDE - DEEP VEINS Acute proximal deep vein thrombosis in the femoral vein from proximal to distal. Acute proximal deep vein thrombosis in the popliteal vein. Assessment and Plan: Marilin Mae is a 77 year old year old female here for follow up. 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 Will finish on 10/24/2022. DVT- Post IVC due to subdural hematoma. She had an IVC filter placed 08/18/[address] last week with near resolution of the subdural hematoma, she was started on 2.5 mg PO BID and repeat CT 10/03/2022 showed stable findings. Her dose of Eliquis was increased to 5 mg BID. Tolerating well. Continue Had dex withdrawal symptoms and back on dex 4mg BID. Discussed weaning again starting 10/23/2022 with 2 mg BID for 7 days, then 10/30/2022 to 2 mg daily. (Patient and given written instructions) See back 11/03/22 for discussion of further weaning dex, planning for MRI brain, and maintenance Temodar dosing and start date Jessica Cartagena PA-C CC: Milvia Hinkle MD documented in this encounter [facility] 10-19-2022 Note [facility] 10-19-2022 History of Present illness Narrative Radiation Oncology - On Treatment Review (OTR) Note PATIENT NAME: Marilin Mae PATIENT DIAGNOSIS:Right parietal glioblastoma IDH wt, EGFR amplified, MGMT hypermethylated s/p STR of hemorrhagic mass on 08/14/2022 with post-operative DVT. COURSE: post-operative and concurrent chemotherapy (temozolomide) Area Treated: Partial brain (right) Current dose: 5400 cGy in 27 fx Planned dose: 6000 cGy in 30 fx Concurrent chemotherapy: Temozolomide Steroids: Yes, 1 mg twice daily SUBJECTIVE: Overall tolerance to treatment is good. Mild skin/scalp irritation. No headaches. No visual change. She does have some difficulty with decreased left leg strength. Is undergoing physical therapy. Was put back on Decadron with out significant change. Still ambulating with walker. EXAM: 10/19/22 1104 BP: (P) 162/82 Pulse: (P) 74 Resp: (P) 18 Temp: (P) 36.5 C (97.7 F) SpO2: (P) 97% Weight: (P) 72.9 kg (160 lb 12.8 oz) KPS: 70 General Appearance: Alert and oriented. No acute distress. Radiation dermatitis: No IMAGING/LAB RESULTS: None Treatment chart checked: Yes Patient treatment site reviewed and verified:Yes Port films reviewed and current:Yes Medications started: None ASSESSMENT/PLAN: Tolerating radiation therapy as expected. Imaging reviewed. Continue treatment as outlined. Will discuss with medical oncology regarding potentially tapering her Decadron as she finishes next week. Follow-up including imaging will be scheduled through medical oncology. Jenn Holt MD documented in this encounter [facility] 10-16-2022 Miscellaneous Notes REfill sent. Will see as scheduled and discuss trying to wean again. Jessica Cartagena PA-C Marilin is here for radiation therapy requesting a new prescription for dexamethasone 2mg tablets. Mr. Mae said they called in over the weekend and spoke to the religion teacher physician . Sunday10/14/22, Marilin was unable to get out of bed due to left lower extremity weakness. She said the religion teacher physician told her she was going through steroid withdrawal and prescribed dexamethasone 2mg sig: take 2 tablets twice a day. She states she has definitely noticed improvement in her weakness since increasing her dexamethasone on Sunday. She does need a refill and further instructions for dexamethasone. Marilin has a follow up appt scheduled with Jessica 10/20/22. Dr. Stallings is out of the office this week. Refill pending your approval. Mr. Mae said they need the refill today. Aminah Bryant LPN documented in this encounter [facility] 10-16-2022 Miscellaneous Notes Approved for free drug through [employer] (10/13/22-07/22/23): [phone] ID: [id number] Eliquis approved on appeal. Patient's co-pay $379.34. Jyoti Cardona RPh Call placed to [employer] appeals dept for status. The rep was unable to locate the appeal. She took the appeal information over the phone and requested the I re-fax. It is a 7 day turn around. Thanks Faxed today's office note and appeal to [employer] @ [phone] for the 2.5mg and 5mg Eliquis. They stated a standard 7 day turn around time since she currently has medication. Call [phone] for status. documented in this encounter [facility] 10-12-2022 Note [facility] 10-12-2022 Note [facility] 10-11-2022 History of Present illness Narrative Radiation Oncology - On Treatment Review (OTR) Note PATIENT NAME: Marilin Mae PATIENT DIAGNOSIS: Ms. Mae is a 77 yo woman with right parietal glioblastoma IDH wt, EGFR amplified, MGMT hypermethylated s/p STR of hemorrhagic mass on 08/14/2022 with post-operative DVT. COURSE: post-operative and concurrent chemotherapy (temozolomide) Area Treated: Partial brain (right) Current dose: 4200 cGy in 21 fx Planned dose: 6000 cGy in 30 fx Concurrent chemotherapy: Temozolomide Steroids: No, completed taper. SUBJECTIVE: Tolerating surgery well and reports having completed her steroid taper. She did have physical therapy yesterday and feels that as result she is little more sore and weak in the left lower extremity. She did have a headache this morning which she managed with Tylenol and denies any nausea or loss of vision or sensory abnormalities. She does note fatigue and has been sleeping well and discontinued her Ativan. She endorses stable appetite and hydration and weight. EXAM: KPS: 70 General Appearance: Alert and oriented. No acute distress. Radiation dermatitis: No IMAGING/LAB RESULTS: None Treatment chart checked: Yes Patient treatment site reviewed and verified:Yes Port films reviewed and current:Yes Medications started: None ASSESSMENT/PLAN: Clinically stable. Toxicity within expected parameters. Continue radiation treatment as planned. Max Stallings MD documented in this encounter [facility] 10-11-2022 Nurse Note Status: Post-menopausal. Krys Gillis RN documented in this encounter [facility] 10-09-2022 Miscellaneous Notes This script is for FREE drug please only sign while IN OFFICE as script is set to print. Thanks Austin Haddad, OskarD, BCOP documented in this encounter [facility] 10-06-2022 Note [facility] 10-06-2022 History of Present illness Narrative PATIENT NAME: Marilin Mae CLINIC NO.: [id number] ATTENDING PHYSICIAN: Anshul Riggs MD DATE OF SERVICE: October 06, 2022 (Elements copied from Dr. Riggs's note dated September 27, 2022, have been reviewed and updated where appropriate, and all reflect current assessment and medical decision making during today's encounter, October 06, 2022) CC: Follow up Diagnosis: GBM with methylated MGMT- R Parietal multifocal lesion Treatment History: 08/14/2022: 1. Right parietal craniotomy for resection of multifocal brain lesion . Use of intraoperative neuro navigation for intradural procedure . Intraoperative MRI brain Modifier 22 - increased complexity, length, risk, and difficulty due to location adjacent to eloquent structures necessitating neuro monitoring for cortical motor mapping and bipolar stim 2. DVT Post op- IVC filter 08/18/2022 due to Subdural hematoma- Resolved on CT 09/19/2022- Eliquis started 09/19/2022 2. Temodar and XRT 09/13/2022 HPI: Marilin had repeat CT brain without any signs of bleeding. She did increase her eliquis to 5 mg BID. She is currently on Dex 1 mg daily as well. She also restarted her fluoxetine as well. Remains on Temodar 135 mg daily with radiation and doing well. No fever, chills, nausea, vomiting, HAs or new neurological issues. She is worried about the cost of her Eliquis as she will be due for a refill soon. PAST MEDICAL HISTORY Diagnosis Date Arthritis Brain mass 2021 Cataracts, bilateral Family history of cancer History of blood clots HTN (hypertension) Hyperlipidemia Social History Tobacco Use Smoking status: Never Smokeless tobacco: Never Vaping Use Vaping Use: Never used Substance Use Topics Alcohol use: Not Currently Alcohol/week: 1.0 standard drink Types: 1 Glasses of wine per week Comment: 1 glass per day Drug use: Never FAMILY HISTORY Problem Relation Age of Onset Stroke Mother Past medical, social and family history reviewed without any changes. REVIEW OF SYSTEMS GENERAL: No weight loss, malaise or fevers. No night sweats. HEENT: Negative for headaches, No changes in hearing or vision, no nose bleeds or other nasal problems. RESPIRATORY: Negative for cough, wheezing and shortness of breath CARDIOVASCULAR: Negative for chest pain, leg swelling and palpitations GI: Negative for abdominal discomfort, blood in stools or black stools and change in bowel habits : Negative for dysuria, frequency and incontinence MUSCULOSKELETAL: Negative for joint pain or swelling, back pain, and muscle pain. SKIN: Negative for lesions, rash, and itching. HEMATOLOGY/LYMPHOLOGY Negative for prolonged bleeding, bruising easily, and swollen nodes. NEURO: Negative for numbness or tingling of hands/feet. No weakness. PHYSICAL EXAMINATION: BP 110/75 Pulse 80 Temp (Src) 97.6 (Temporal) Resp 16 Ht 5' 4.016 (1.63m) Wt 163 lb (73.9kg) SpO2 95% BMI 27.97 kg/(m^2). ECOG PERFORMANCE STATUS: 1- Restricted in physically strenuous activity. Carries out light duty. General: Alert and oriented, no distress, pleasant and cooperative. Using a walker Heart: Regular, normal S1 and S2, no murmurs, rubs, or gallops Lungs: Clear to auscultation bilaterally Abdomen: Benign Extremities: Feet/ankles without edema, posterior tibial pulses full and symmetrical LABS: Glucose (mg/dL) Date Value 10/06/2022 102 Potassium (mmol/L) Date Value 10/06/2022 3.6 Sodium (mmol/L) Date Value 10/06/2022 144 Chloride (mmol/L) Date Value 10/06/2022 105 CO2 (mmol/L) Date Value 10/06/2022 27 Creatinine (mg/dL) Date Value 10/06/2022 0.76 BUN (mg/dL) Date Value 10/06/2022 13 Anion Gap (mmol/L) Date Value 10/06/2022 12 Calcium, Total (mg/dL) Date Value 10/06/2022 9.4 Protein, Total (g/dL) Date Value 10/06/2022 6.2 Albumin (g/dL) Date Value 10/06/2022 4.1 Bilirubin, Total (mg/dL) Date Value 10/06/2022 0.4 Alkaline Phosphatase (U/L) Date Value 10/06/2022 51 AST (U/L) Date Value 10/06/2022 10 ALT (U/L) Date Value 10/06/2022 8 WBC Date Value Ref Range Status 10/06/2022 7.84 3.70 - 11.00 k/uL Final RBC Date Value Ref Range Status 10/06/2022 3.87 (L) 3.90 - 5.20 m/uL Final Hemoglobin Date Value Ref Range Status 10/06/2022 11.8 11.5 - 15.5 g/dL Final Hematocrit Date Value Ref Range Status 10/06/2022 37.1 36.0 - 46.0 % Final MCV Date Value Ref Range Status 10/06/2022 95.9 80.0 - 100.0 fL Final MCH Date Value Ref Range Status 10/06/2022 30.5 26.0 - 34.0 pg Final MCHC Date Value Ref Range Status 10/06/2022 31.8 30.5 - 36.0 g/dL Final RDW-CV Date Value Ref Range Status 10/06/2022 14.6 11.5 - 15.0 % Final Platelet Count Date Value Ref Range Status 10/06/2022 222 150 - 400 k/uL Final MPV Date Value Ref Range Status 10/06/2022 10.3 9.0 - 12.7 fL Final Abs Neut Date Value Ref Range Status 10/06/2022 6.37 1.45 - 7.50 k/uL Final Lymphocytes % Date Value Ref Range Status 10/06/2022 8.9 % Final Abs Lymph Date Value Ref Range Status 10/06/2022 0.70 (L) 1.00 - 4.00 k/uL Final Monocytes % Date Value Ref Range Status 10/06/2022 7.5 % Final Abs [place] Date Value Ref Range Status 10/06/2022 0.59 <0.87 k/uL Final Eosinophils % Date Value Ref Range Status 10/06/2022 1.1 % Final Abs Eosin Date Value Ref Range Status 10/06/2022 0.09 <0.46 k/uL Final Basophils % Date Value Ref Range Status 10/06/2022 0.6 % Final Abs Baso Date Value Ref Range Status 10/06/2022 0.05 <0.11 k/uL Final PATH: 08/14/2022 Craniotomy: FINAL DIAGNOSIS A-B. Right parietal lobe, excision: - Morphologically consistent with high grade glioma. RAP/barron 08/17/2022 Diagnosis Comment The tumor is marked by prominent cellularity, identifiable mitotic activity, vascular proliferative changes and necrosis. Immunostains were performed on block B2. The tumor did not stain with antibody to IDH-1(R132H) . ATRX staining was retained. Focally, greater than 30% of cells demonstrate p53 immunostaining. A Ki-67 index in excess of 30% is noted. Additional molecular testing including 1p/19q FISH, EGFR FISH, MGMT analysis and IDH1/2 PCR have been ordered on this case and results will be signed out separately when available. If the tumor demonstrates evidence of co-deletion on chromosomes 1p and 19q and evidence of an IDH mutation, the tumor should be considered an oligodendroglioma, WHO Grade 3. If the tumor does not show both of the aforementioned molecular findings, the tumor should be considered a high grade astrocytic neoplasm. If the tumor represents an astrocytoma and demonstrates evidence of an IDH mutation, the tumor should be considered an astrocytoma, WHO Grade 4. If the tumor is an astrocytoma and does not show evidence of and IDH mutation, the tumor should be considered a glioblastoma, WHO Grade 4. Chromosome 1p: INTACT, EUSOMIC Chromosome 19q: INTACT, EUSOMIC RESULTS: EGFR AMPLIFIED IDH1 - No variant detected [Reference sequence: (NM_[id number])]. IDH2 - No variant detected [Reference sequence: (NM_002168.2)]. Hypermethylated (The mean methylation of MGMT promoter region is greater than or equal to 12%) IMAGING: CT brain 10/03/2022 Stable postoperative changes. Negligible residua from prior subdural hematoma along the inner table of the prior craniotomy. No acute abnormalities. MRI Brain 07/2022: Dominant heterogeneous enhancing masses are present in the right parietal lobe distorting the adjacent posterior right frontal lobe and paramedian right parietal lobe, measuring approximately 2.8 cm and 2 cm respectively. Additional smaller enhancing satellite nodules are visible. Main differential considerations are high-grade neoplasm such as glioblastoma, anaplastic astrocytoma or metastasis. There is local mass effect and effacement of the atrium of the right lateral ventricle. No gross midline shift or herniation. US 08/18/2022: LEFT SIDE - DEEP VEINS Acute proximal deep vein thrombosis in the femoral vein from proximal to distal. Acute proximal deep vein thrombosis in the popliteal vein. Assessment and Plan: Marilin Mae is a 77 year old year old female here for follow up. 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 She had an IVC filter placed 08/18/[address] last week with near resolution of the subdural hematoma, she was started on 2.5 mg PO BID and repeat CT 10/03/2022 showed stable findings. Her dose of Eliquis was increased to 5 mg BID. There are coverage issues with eliquis and I will have social work get involved as well. I Doing well with 1 mg of dex and will stop for now Back on antidepressant See her in 2 weeks with repeat labs Jessica Cartagena PA-C CC: Milvia Hinkle MD documented in this encounter [facility] 10-05-2022 Note [facility] 10-05-2022 History of Present illness Narrative SOCIAL WORK FOLLOW UP NOTE: [facility] Date of service:10/05/22 Marilin Mae is being seen for a follow up social work visit. Today's visit includes: spouse and patient TOPICS ADDRESSED: wig fitting PLAN: Continue follow up as needed Assigned SW listed in Care Team tab: Yes Patient requested a wig fitting. Patient was able to find a wig from the [employer]. SW will remain available and will follow up as appropriate. ADELITA Beaver documented in this encounter [facility] 10-04-2022 Note [facility] 10-04-2022 History of Present illness Narrative Radiation Oncology - On Treatment Review (OTR) Note PATIENT NAME: Marilin Mae PATIENT DIAGNOSIS: Ms. Mae is a 77 yo woman with right parietal glioblastoma IDH wt, EGFR amplified, MGMT hypermethylated s/p STR of hemorrhagic mass on 08/14/2022 with post-operative DVT. COURSE: post-operative and concurrent chemotherapy (temozolomide) Area Treated: Partial brain (right) Current dose: 3200 cGy in 16 fx Planned dose: 6000 cGy in 30 fx Concurrent chemotherapy: Temozolomide Steroids: Yes, 1 mg twice daily SUBJECTIVE: Tolerating XRT well but notices more unsteadiness especially when fatigued. She has started physical therapy and has had 2 sessions. She denies any headaches, vision changes, intractable nausea or any new neurological issues. She is starting to ambulate without a walker at home. She endorses fatigue with stable appetite and hydration movement. EXAM: KPS: 70 General Appearance: Alert and oriented. No acute distress. Radiation dermatitis: No IMAGING/LAB RESULTS: None Treatment chart checked: Yes Patient treatment site reviewed and verified:Yes Port films reviewed and current:Yes Medications started: None ASSESSMENT/PLAN: Clinically stable. Toxicity within expected parameters. Continue radiation treatment as planned. Max Stallings MD documented in this encounter [facility] 10-04-2022 Miscellaneous Notes Pt's notified and read back directions without difficulty. Sherry Winchester RN ----- Message from Jessica Cartagena PA-C sent at 10/04/2022 8:04 AM EDT ----- Please call patient and advise that her CT is stable and she can increase her eliquis dose to 5 mg BID as planned documented in this encounter [facility] 10-04-2022 Nurse Note Status: Post-menopausal. Krys Gillis RN documented in this encounter [facility] 10-03-2022 Note [facility] 09-28-2022 Note [facility] 09-27-2022 History of Present illness Narrative Radiation Oncology - On Treatment Review (OTR) Note PATIENT NAME: Marilin Mae PATIENT DIAGNOSIS: Ms. Mae is a 77 yo woman with right parietal glioblastoma IDH wt, EGFR amplified, MGMT hypermethylated s/p STR of hemorrhagic mass on 08/14/2022 with post-operative DVT. COURSE: post-operative and concurrent chemotherapy (temozolomide) Area Treated: Partial brain (right) Current dose: 2200 cGy in 11 fx Planned dose: 6000 cGy in 30 fx Concurrent chemotherapy: Temozolomide Steroids: Yes, 1 mg twice daily SUBJECTIVE: Tolerating XRT well and notes that she is ambulating better with her walker and plans to start physical therapy tomorrow. She reports slight improvement in her left-sided weakness and denies any new neurological issues such as headache, vision changes, intractable nausea, new motor or sensory abnormalities. She does endorse fatigue and has cut down to 1/4 tablet of her Ativan for anxiety/claustrophobia with treatment. She endorses stable appetite and hydration. EXAM: KPS: 70 General Appearance: Alert and oriented. No acute distress. Radiation dermatitis: No IMAGING/LAB RESULTS: None Treatment chart checked: Yes Patient treatment site reviewed and verified:Yes Port films reviewed and current:Yes Medications started: None ASSESSMENT/PLAN: Clinically stable. Toxicity within expected parameters. Continue radiation treatment as planned. Max Stallings MD documented in this encounter [facility] 09-27-2022 Miscellaneous Notes Pt notified that she can resume this. Also aware that script was sent to her pharmacy Sherry Winchester RN sent Pt calls stating she has some fluoxetine 40 mg at home, which she was taking from Dr Hinkle prior to being diagnosed. Pt states she feels she could use a little boost and would like to go back on this if possible. Please advise Sherry Winchester RN documented in this encounter [facility] 09-27-2022 Miscellaneous Notes I think that we will take off Dex at that time I notified Mr. Mae that Dr. Riggs would like Marilin to take 2mg--1/2 tablet daily for one week. Jessica will evaluate patient on 10/05/22 as scheduled and give further instructions. Aminah Bryant LPN Yes, do whatever would like. Jessica Cartagena PA-C Yes. I want her to tale 1/2 for a week and then stop likely after that Dr. Riggs will you please clarify the dose of dexamethasone you would like Marilin to take? Jessica's not last week states to decrease dose to 2 mg daily x 14 days and your note from today states to decrease to 2 mg daily. I'm just trying to clarify if you meant maintain current dose at 2 mg daily or if you really want her to take 1/2 tablet of the 2mg daily. Patient and her are confused. I will call patient with your instructions. Thanks Aminah Bryant LPN documented in this encounter [facility] 09-27-2022 Note [facility] 09-27-2022 History of Present illness Narrative PATIENT NAME: Marilin Mae [facility] NO.: [id number] ATTENDING PHYSICIAN: Anshul Riggs MD DATE OF SERVICE: September 27, [address] Milvia Hinkle, here is an update on a follow up visit on female Marilin Mae at the clinic 09/27/2022 Diagnosis: GBM with methylated MGMT- R Parietal multifocal lesion Treatment History: 08/14/2022: 1. Right parietal craniotomy for resection of multifocal brain lesion . Use of intraoperative neuro navigation for intradural procedure . Intraoperative MRI brain Modifier 22 - increased complexity, length, risk, and difficulty due to location adjacent to eloquent structures necessitating neuro monitoring for cortical motor mapping and bipolar stim 2. DVT Post op- IVC filter 08/18/2022 due to Subdural hematoma- Resolved on CT 09/19/2022- Eliquis started 09/19/2022 2. Temodar and XRT 09/13/2022 HPI: Marilin Mae is a 77 year old year old female here for follow up. She is doing ok and she feels that she needs her anti-depressant restarted. She denies any fevers and or WATKINS and also starting PT soon PAST MEDICAL HISTORY Diagnosis Date Arthritis Brain mass 2021 Cataracts, bilateral Family history of cancer History of blood clots HTN (hypertension) Hyperlipidemia Social History Tobacco Use Smoking status: Never Smokeless tobacco: Never Vaping Use Vaping Use: Never used Substance Use Topics Alcohol use: Not Currently Alcohol/week: 1.0 standard drink Types: 1 Glasses of wine per week Comment: 1 glass per day Drug use: Never FAMILY HISTORY Problem Relation Age of Onset Stroke Mother Past medical, social and family history reviewed without any changes. REVIEW OF SYSTEMS GENERAL: No weight loss, malaise or fevers. No night sweats. HEENT: Negative for headaches, No changes in hearing or vision, no nose bleeds or other nasal problems. RESPIRATORY: Negative for cough, wheezing and shortness of breath CARDIOVASCULAR: Negative for chest pain, leg swelling and palpitations GI: Negative for abdominal discomfort, blood in stools or black stools and change in bowel habits : Negative for dysuria, frequency and incontinence MUSCULOSKELETAL: Negative for joint pain or swelling, back pain, and muscle pain. SKIN: Negative for lesions, rash, and itching. HEMATOLOGY/LYMPHOLOGY Negative for prolonged bleeding, bruising easily, and swollen nodes. NEURO: Negative for numbness or tingling of hands/feet. No weakness. PHYSICAL EXAMINATION: BP 139/64 Pulse 75 Temp (Src) 97.6 (Temporal) Resp 18 Ht 5' 4.016 (1.63m) Wt 162 lb (73.5kg) SpO2 100% BMI 27.79 kg/(m^2). Wt 73.5 kg (162 lb) BMI 27.79 kg/m2 Last 3 Encounter Wt Readings: Date: Wt: 09/27/2022 73.5 kg (162 lb) 09/20/2022 72 kg (158 lb 12.8 oz) 09/19/2022 70.1 kg (154 lb 9.6 oz) General appearance:ECOG PERFORMANCE STATUS: 1- Restricted in physically strenuous activity. Carries out light duty. Patient in NAD. Skin: Skin color, texture, turgor normal. No rashes or lesions. Eyes: Anicteric sclera. Pupils are equally round and reactive to light. Extraocular movements are intact. Lymph Nodes: No cervical, supraclavicular, axillary or inguinal adenopathy. Oropharynx: Lips, mucosa, and tongue normal. Back: No pain to percussion. Negative SLR test Lungs clear to auscultation, No wheezing or rhonchi Heart: RRR without murmur, gallop, or rubs. Abdomen soft, non-tender. No masses, organomegaly Extremities: No deformities. No edema Neuro: Gait and speech normal. Reflexes normal and symmetric. Muscular strength intact. Sensation grossly intact. Rectal: Deferred : Deferred LABS: Glucose (mg/dL) Date Value 09/19/2022 178 Potassium (mmol/L) Date Value 09/19/2022 4.2 Sodium (mmol/L) Date Value 09/19/2022 140 Chloride (mmol/L) Date Value 09/19/2022 103 CO2 (mmol/L) Date Value 09/19/2022 28 Creatinine (mg/dL) Date Value 09/19/2022 0.74 BUN (mg/dL) Date Value 09/19/2022 20 Anion Gap (mmol/L) Date Value 09/19/2022 9 Calcium, Total (mg/dL) Date Value 09/19/2022 9.7 Protein, Total (g/dL) Date Value 09/19/2022 6.4 Albumin (g/dL) Date Value 09/19/2022 4.3 Bilirubin, Total (mg/dL) Date Value 09/19/2022 0.4 Alkaline Phosphatase (U/L) Date Value 09/19/2022 60 AST (U/L) Date Value 09/19/2022 11 ALT (U/L) Date Value 09/19/2022 10 WBC Date Value Ref Range Status 09/27/2022 9.08 3.70 - 11.00 k/uL Final RBC Date Value Ref Range Status 09/27/2022 4.09 3.90 - 5.20 m/uL Final Hemoglobin Date Value Ref Range Status 09/27/2022 12.6 11.5 - 15.5 g/dL Final Hematocrit Date Value Ref Range Status 09/27/2022 38.9 36.0 - 46.0 % Final MCV Date Value Ref Range Status 09/27/2022 95.1 80.0 - 100.0 fL Final MCH Date Value Ref Range Status 09/27/2022 30.8 26.0 - 34.0 pg Final MCHC Date Value Ref Range Status 09/27/2022 32.4 30.5 - 36.0 g/dL Final RDW-CV Date Value Ref Range Status 09/27/2022 14.9 11.5 - 15.0 % Final Platelet Count Date Value Ref Range Status 09/27/2022 214 150 - 400 k/uL Final MPV Date Value Ref Range Status 09/27/2022 10.1 9.0 - 12.7 fL Final Abs Neut Date Value Ref Range Status 09/27/2022 7.02 1.45 - 7.50 k/uL Final Lymphocytes % Date Value Ref Range Status 09/27/2022 13.8 % Final Abs Lymph Date Value Ref Range Status 09/27/2022 1.25 1.00 - 4.00 k/uL Final Monocytes % Date Value Ref Range Status 09/27/2022 6.9 % Final Abs [place] Date Value Ref Range Status 09/27/2022 0.63 <0.87 k/uL Final Eosinophils % Date Value Ref Range Status 09/27/2022 0.2 % Final Abs Eosin Date Value Ref Range Status 09/27/2022 <0.03 <0.46 k/uL Final Basophils % Date Value Ref Range Status 09/27/2022 0.8 % Final Abs Baso Date Value Ref Range Status 09/27/2022 0.07 <0.11 k/uL Final PATH: 08/14/2022 Craniotomy: FINAL DIAGNOSIS A-B. Right parietal lobe, excision: - Morphologically consistent with high grade glioma. RAP/barron 08/17/2022 Diagnosis Comment The tumor is marked by prominent cellularity, identifiable mitotic activity, vascular proliferative changes and necrosis. Immunostains were performed on block B2. The tumor did not stain with antibody to IDH-1(R132H) . ATRX staining was retained. Focally, greater than 30% of cells demonstrate p53 immunostaining. A Ki-67 index in excess of 30% is noted. Additional molecular testing including 1p/19q FISH, EGFR FISH, MGMT analysis and IDH1/2 PCR have been ordered on this case and results will be signed out separately when available. If the tumor demonstrates evidence of co-deletion on chromosomes 1p and 19q and evidence of an IDH mutation, the tumor should be considered an oligodendroglioma, WHO Grade 3. If the tumor does not show both of the aforementioned molecular findings, the tumor should be considered a high grade astrocytic neoplasm. If the tumor represents an astrocytoma and demonstrates evidence of an IDH mutation, the tumor should be considered an astrocytoma, WHO Grade 4. If the tumor is an astrocytoma and does not show evidence of and IDH mutation, the tumor should be considered a glioblastoma, WHO Grade 4. Chromosome 1p: INTACT, EUSOMIC Chromosome 19q: INTACT, EUSOMIC RESULTS: EGFR AMPLIFIED IDH1 - No variant detected [Reference sequence: ([id number])]. IDH2 - No variant detected [Reference sequence: ([id number])]. Hypermethylated (The mean methylation of MGMT promoter region is greater than or equal to 12%) IMAGING: MRI Brain 07/2022: Dominant heterogeneous enhancing masses are present in the right parietal lobe distorting the adjacent posterior right frontal lobe and paramedian right parietal lobe, measuring approximately 2.8 cm and 2 cm respectively. Additional smaller enhancing satellite nodules are visible. Main differential considerations are high-grade neoplasm such as glioblastoma, anaplastic astrocytoma or metastasis. There is local mass effect and effacement of the atrium of the right lateral ventricle. No gross midline shift or herniation. US 08/18/2022: LEFT SIDE - DEEP VEINS Acute proximal deep vein thrombosis in the femoral vein from proximal to distal. Acute proximal deep vein thrombosis in the popliteal vein. Assessment and Plan: Marilin Carmelita is a 77 year old year old female here for follow up. 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 She had an IVC filter placed 08/18/[address] last week with near resolution of the subdural hematoma, she was started on 2.5 mg PO BID and plan a repeat CT 10/03/2022, if that is negative will increase dose to 5 mg PO BID and need to also discuss removing the IVC filter at some point as well. There has been coverage issues for the Eliquis and working in her insurance as the original request was denied Decrease Dex to 2 mg daily and plan to continue taper She will call with her Anti-depressant med and will refill if safe See back next week, if all stable can see her every 2 weeks Thank you for the kind referral. If there are any questions and or concerns please do not hesitate to contact me at [phone]. Anshul Riggs MD Hematology/Medical Oncology [facility] spent a total of 30 minutes on the date of the service which included preparing to see the patient, [id number] patient care, completing clinical documentation, obtaining and/or reviewing separately obtained history, performing a medically appropriate examination, counseling and educating the patient/family/caregiver, and ordering medications, tests, or procedures. CC: Milvia Hinkle MD documented in this encounter [facility] 09-26-2022 Miscellaneous Notes Ambulatory Pharmacy Prior Authorization Note Provider Intervention Required?: No- Pharmacy completed on your behalf. Rx Plan: Drug: Eliquis Cover My Meds Mcmahon: [id number] Determination: Denied PA Denied because: Formulary Prior Authorization/Case #: [id number] Prior Authorization Expiration: Time to PA Submission in CMM: 15 min Time to PA Determination in CMM: 1 day Additional Information: Appeal needs to be filed. Patient was given one month free while we work on the PA appeal. For questions relating to this submission, please contact [facility] at [phone] documented in this encounter [facility] 09-21-2022 Note [facility] 09-20-2022 History of Present illness Narrative Radiation Oncology - On Treatment Review (OTR) Note PATIENT NAME: Marilin Mae PATIENT DIAGNOSIS: Ms. Mae is a 77 yo woman with right parietal glioblastoma IDH wt, EGFR amplified, MGMT hypermethylated s/p STR of hemorrhagic mass on 08/14/2022 with post-operative DVT. COURSE: post-operative and concurrent chemotherapy (temozolomide) Area Treated: Partial brain (right) Current dose: 1200 cGy in 6 fx Planned dose: 6000 cGy in 30 fx Concurrent chemotherapy: Temozolomide Steroids: Yes, 2 mg twice daily SUBJECTIVE: Tolerating XRT well and denies any new neurological issues including headache, vision changes or intractable nausea. She feels that her gait/balance has been slowly improving and ambulates along with a walker. She also feels that her memory is also improving. She has not yet started physical therapy/Occupational Therapy. She does note fatigue as she takes the Ativan for anxiety during her mask/treatment but is tapering down. She endorses good appetite and hydration. EXAM: KPS: 70 General Appearance: Alert and oriented. No acute distress. Radiation dermatitis: No IMAGING/LAB RESULTS: None Treatment chart checked: Yes Patient treatment site reviewed and verified:Yes Port films reviewed and current:Yes Medications started: None ASSESSMENT/PLAN: Clinically stable. Toxicity within expected parameters. Continue radiation treatment as planned. Max Stallings MD documented in this encounter [facility] 09-19-2022 Note [facility] 09-19-2022 Note [facility] 09-19-2022 History of Present illness Narrative PATIENT NAME: Marilin Mae CLINIC NO.: [id number] ATTENDING PHYSICIAN: Anshul Riggs MD DATE OF SERVICE: September 19, 2022 (Elements copied from Dr. Riggs's note dated September 12, 2022, have been reviewed and updated where appropriate, and all reflect current assessment and medical decision making during today's encounter, September 19, 2022) CHIEF COMPLAINT: I have Brain cancer Diagnosis: Glioblastoma multiforme and methylated MGMT DVT Treatment: Right parietal craniotomy 07/2022 2. Temodar and radiation started 09/13/2022 3. IVC filter placed 08/13/2022 HPI: She saw vascular with repeat dopplers of her legs which showed New findings of acute deep vein thrombosis in the right peroneal vein, left common femoral, gastrocnemius, posterior tibial and peroneal veins. Positive for propagation of known deep vein thrombosis in the left femoral and popliteal veins. Therefore, the IVC filter is staying in place per vascular. She has started radiation and Temodar and is tolerating it well. Denies any fever, chills, swelling, nausea, vomiting, diarrhea, headache or seizure. She has been on Dex 2 mg BID since 08/24/2022 , and keppra as well. Current Outpatient Medications Medication Sig granisetron HCl (KYTRIL) 1 mg tablet Take 1 tablet by mouth 1 hour prior to temozolomide dose to prevent nausea, may take an additional dose in the am if needed temozolomide (TEMODAR) 5 mg capsule Take 3 capsules (15 mg) by mouth once daily with 2 other temozolomide prescriptions for 135 mg total. temozolomide (TEMODAR) 20 mg capsule Take 1 capsule (20 mg) by mouth once daily with 2 other temozolomide prescriptions for 135 mg total. temozolomide (TEMODAR) 100 mg capsule Take 1 capsule (100 mg) by mouth once daily with 2 other temozolomide prescriptions for 135 mg total. prochlorperazine (COMPAZINE) 10 mg tablet Take 1 tablet by mouth every 4 hours as needed. dexAMETHasone (DECADRON) 2 mg tablet Take 1 tablet by mouth every 12 hours for [address] (PROTONIX) 40 mg tablet Take 1 tablet by mouth DAILY (6 AM). levETIRAcetam (KEPPRA) 750 mg tablet Take 1 tablet by mouth twice daily. Maintain until follow-up. docusate sodium (COLACE) 100 mg capsule Take 1 capsule by mouth twice daily as needed for constipation. acetaminophen (TYLENOL) 325 mg tablet 2 tablets by ORAL/FEEDING TUBE route every 6 hours as needed for pain or fever (specify). levETIRAcetam (KEPPRA) 750 mg tablet Take 1 tablet by mouth twice daily for 7 days. atorvastatin (LIPITOR) 40 mg tablet (Patient not taking: No sig reported) ergocalciferol 50,000 unit capsule (VITAMIN D2, DRISDOL) Take 50,000 Units by mouth one time a week. hydroCHLOROthiazide (HYDRODIURIL, ESIDRIX) 25 mg tablet Take 25 mg by mouth once daily. lisinopril (ZESTRIL, PRINIVIL) 10 mg tablet (Patient not taking: Reported on 09/14/2022) meclizine (ANTIVERT) 25 mg tab Take 25 mg by mouth as needed. No current facility-administered medications for this visit. ALLERGIES No Known Allergies PAST MEDICAL HISTORY Diagnosis Date Arthritis Brain mass 2021 Cataracts, bilateral Family history of cancer History of blood clots HTN (hypertension) Hyperlipidemia PAST SURGICAL HISTORY Procedure Laterality Date COLONSCOPY SCREENING HIGH RISK TOTAL ABDOM HYSTERECTOMY TOTAL KNEE REPLACEMENT Right 2013 TOTAL KNEE REPLACEMENT Left 2013 FAMILY HISTORY Problem Relation Age of Onset Stroke Mother Social History Tobacco Use Smoking status: Never Smokeless tobacco: Never Vaping Use Vaping Use: Never used Substance Use Topics Alcohol use: Not Currently Alcohol/week: 1.0 standard drink Types: 1 Glasses of wine per week Comment: 1 glass per day Drug use: Never REVIEW OF SYSTEMS GENERAL: No weight loss, malaise or fevers. No night sweats. HEENT: Negative for headaches, No changes in hearing or vision, no nose bleeds or other nasal problems. RESPIRATORY: Negative for cough, wheezing and shortness of breath CARDIOVASCULAR: Negative for chest pain, leg swelling and palpitations GI: Negative for abdominal discomfort, blood in stools or black stools and change in bowel habits : Negative for dysuria, frequency and incontinence MUSCULOSKELETAL: Negative for joint pain or swelling, back pain, and muscle pain. SKIN: Negative for lesions, rash, and itching. HEMATOLOGY/LYMPHOLOGY Negative for prolonged bleeding, bruising easily, and swollen nodes. NEURO: Negative for numbness or tingling of hands/feet. No weakness. PHYSICAL EXAMINATION: BP 126/73 Pulse 87 Temp 36.5 C (97.7 F) (Temporal) Resp 16 Ht 162.6 cm (5' 4.02 ) Wt 70.1 kg (154 lb 9.6 oz) SpO2 97% BMI 26.52 kg/m ECOG PERFORMANCE STATUS: 1- Restricted in physically strenuous activity. Carries out light duty. General: Alert and oriented, no distress, pleasant and cooperative. Heart: Regular, normal S1 and S2, no murmurs, rubs, or gallops Lungs: Clear to auscultation bilaterally Abdomen: Benign Extremities: Feet/ankles without edema, posterior tibial pulses full and symmetrical LABS: Glucose (mg/dL) Date Value 09/19/2022 178 Potassium (mmol/L) Date Value 09/19/2022 4.2 Sodium (mmol/L) Date Value 09/19/2022 140 Chloride (mmol/L) Date Value 09/19/2022 103 CO2 (mmol/L) Date Value 09/19/2022 28 Creatinine (mg/dL) Date Value 09/19/2022 0.74 BUN (mg/dL) Date Value 09/19/2022 20 Anion Gap (mmol/L) Date Value 09/19/2022 9 Calcium, Total (mg/dL) Date Value 09/19/2022 9.7 Protein, Total (g/dL) Date Value 09/19/2022 6.4 Albumin (g/dL) Date Value 09/19/2022 4.3 Bilirubin, Total (mg/dL) Date Value 09/19/2022 0.4 Alkaline Phosphatase (U/L) Date Value 09/19/2022 60 AST (U/L) Date Value 09/19/2022 11 ALT (U/L) Date Value 09/19/2022 10 WBC Date Value Ref Range Status 09/19/2022 9.42 3.70 - 11.00 k/uL Final RBC Date Value Ref Range Status 09/19/2022 4.07 3.90 - 5.20 m/uL Final Hemoglobin Date Value Ref Range Status 09/19/2022 12.5 11.5 - 15.5 g/dL Final Hematocrit Date Value Ref Range Status 09/19/2022 38.1 36.0 - 46.0 % Final MCV Date Value Ref Range Status 09/19/2022 93.6 80.0 - 100.0 fL Final MCH Date Value Ref Range Status 09/19/2022 30.7 26.0 - 34.0 pg Final MCHC Date Value Ref Range Status 09/19/2022 32.8 30.5 - 36.0 g/dL Final RDW-CV Date Value Ref Range Status 09/19/2022 14.6 11.5 - 15.0 % Final Platelet Count Date Value Ref Range Status 09/19/2022 236 150 - 400 k/uL Final MPV Date Value Ref Range Status 09/19/2022 10.4 9.0 - 12.7 fL Final Abs Neut Date Value Ref Range Status 09/19/2022 7.90 (H) 1.45 - 7.50 k/uL Final Lymph% Date Value Ref Range Status 09/19/2022 9.4 % Final Abs Lymph Date Value Ref Range Status 09/19/2022 0.89 (L) 1.00 - 4.00 k/uL Final [place]% Date Value Ref Range Status 09/19/2022 5.3 % Final Abs [place] Date Value Ref Range Status 09/19/2022 0.50 <0.87 k/uL Final Eosin% Date Value Ref Range Status 09/19/2022 0.0 % Final Abs Eosin Date Value Ref Range Status 09/19/2022 <0.03 <0.46 k/uL Final Baso% Date Value Ref Range Status 09/19/2022 0.2 % Final Abs Baso Date Value Ref Range Status 09/19/2022 <0.03 <0.11 k/uL Final PATH: 08/14/2022 Craniotomy: FINAL DIAGNOSIS A-B. Right parietal lobe, excision: - Morphologically consistent with high grade glioma. RAP/barron 08/17/2022 Diagnosis Comment The tumor is marked by prominent cellularity, identifiable mitotic activity, vascular proliferative changes and necrosis. Immunostains were performed on block B2. The tumor did not stain with antibody to IDH-1(R132H) . ATRX staining was retained. Focally, greater than 30% of cells demonstrate p53 immunostaining. A Ki-67 index in excess of 30% is noted. Additional molecular testing including 1p/19q FISH, EGFR FISH, MGMT analysis and IDH1/2 PCR have been ordered on this case and results will be signed out separately when available. If the tumor demonstrates evidence of co-deletion on chromosomes 1p and 19q and evidence of an IDH mutation, the tumor should be considered an oligodendroglioma, WHO Grade 3. If the tumor does not show both of the aforementioned molecular findings, the tumor should be considered a high grade astrocytic neoplasm. If the tumor represents an astrocytoma and demonstrates evidence of an IDH mutation, the tumor should be considered an astrocytoma, WHO Grade 4. If the tumor is an astrocytoma and does not show evidence of and IDH mutation, the tumor should be considered a glioblastoma, WHO Grade 4. Chromosome 1p: INTACT, EUSOMIC Chromosome 19q: INTACT, EUSOMIC RESULTS: EGFR AMPLIFIED IDH1 - No variant detected [Reference sequence: (NM_[id number])]. IDH2 - No variant detected [Reference sequence: (NM_[id number])]. Hypermethylated (The mean methylation of MGMT promoter region is greater than or equal to 12%) IMAGING: US 09/14/2022 Compared to prior study of 08/18/2022, New findings of acute deep vein thrombosis in the right peroneal vein, left common femoral, gastrocnemius, posterior tibial and peroneal veins. Positive for propagation of known deep vein thrombosis in the left femoral and popliteal veins. RIGHT SIDE - DEEP VEINS Acute calf deep vein thrombosis in the peroneal veins at the mid calf. LEFT SIDE - DEEP VEINS Acute proximal deep vein thrombosis in the common femoral vein. Positive for propagation of the known deep vein thrombosis in the femoral vein and popliteal vein. Acute calf deep vein thrombosis in the gastrocnemius veins at the knee crease. Acute calf deep vein thrombosis in the posterior tibial veins and peroneal veins at the proximal calf. LEFT SIDE - SUPERFICIAL VEINS Unable to visualize the great saphenous vein. MRI Brain 07/2022: Dominant heterogeneous enhancing masses are present in the right parietal lobe distorting the adjacent posterior right frontal lobe and paramedian right parietal lobe, measuring approximately 2.8 cm and 2 cm respectively. Additional smaller enhancing satellite nodules are visible. Main differential considerations are high-grade neoplasm such as glioblastoma, anaplastic astrocytoma or metastasis. There is local mass effect and effacement of the atrium of the right lateral ventricle. No gross midline shift or herniation. US 08/18/2022: LEFT SIDE - DEEP VEINS Acute proximal deep vein thrombosis in the femoral vein from proximal to distal. Acute proximal deep vein thrombosis in the popliteal vein. ASSESSMENT AND PLAN: Marilin Mae is a 77 year old year old female HTN and HLD with newly diagnosed multicentric GBM, MGMT hypermethylation and EGFR amplification post gross resection. IDH 1 and 2 are negative and no 1p and 19q abnormalities as expected in GBM. She developed an asymptomatic DVT and had IVC filter due to proximity to craniotomy was placed on heparin full dose and had a small subdural hematoma and was on prophylactic heparin at rehab. GBM post gross resection- continue with planned concurrent Temodar and radiation and then adjuvant Temodar for 6 months. Tolerating well 2. Continue Dexamethasone and will start taper to 2 mg daily for 14 days, then if doing well will wean to 1 mg daily 3. On Keppra per NS. No recorded SZ activity 4. DVT L Leg 08/18/2022- post IVC filter and now with new Right DVT and extensive left DVt. Discussed with Dr Riggs who recommend CT brain to evaluate for small subdural hematoma resolution. If resolved, will start eliquis 2.5 mg BID due to decreased WOOD BORER bleeding a/w it and then repeat CT brain a week later. 5. Return in 1 week for repeat labs Jessica Cartagena PA-C CC: Milvia Hinkle MD documented in this encounter [facility] 09-18-2022 Miscellaneous Notes Pt is asking if she can cut her Ativan in half to see if this is as effective as a whole one. Spoke with pharmacist who states yes, this can be cut in half. Pt/daughter notified and pt will try this tomorrow. Sherry Winchester RN documented in this encounter [facility] 09-18-2022 Miscellaneous Notes ORAL ANTI-CANCER AGENTS FOLLOW-UP PHONE CALL/VISIT Patient identified by name and date of . YES Patient is on cycle 1, week 1, day 6 of Temozolomide (Temodar) for Glioblastoma. SYMPTOM ASSESSMENT Headache: No Visual Changes: No Dizziness: No Do you have any periods of confusion? No Mood changes: No Mouth or throat pain: No Appetite: no changes in appetite, appetite good Taste changes: No Nausea: No Vomiting: No Episodes of palpitations/chest discomfort/pressure/pain No Shortness of breath: No Cough: No Diarrhea: no Constipation: no Bladder/Urinary Changes: None Pain: No=0 (pain 0 on a scale of 0-10). Fever: No Chills: No Cold sensitivity: No Numbness/weakness: No Edema: No Skin changes: No Itching: No Yellowing of skin or eyes: No Musculoskeletal/joint changes/issues No Bleeding issues: No Activity Level (0-100%): a little more tired than normal but feels this is from taking Ativan prior to radiation Do you need to take naps? No Does the patient need interventions or same day appointment:No ADDITIONAL FOLLOW UP: The next outreach call is due on: as needed and was scheduled as needed The following lab tests are due: CBC, CMP Verified patient is aware of next appointment in the cancer center: Yes. Verified patient verbalized how to correctly refill the oral agent prescription. Yes Does the patient have any financial difficulties affording this medication? No Patient verbalizes understanding of when to seek Medical Attention? YES Patient verbalizes understanding of after-hours and weekend phone number? YES Patient verbalized importance of medication compliance in taking the oral agent as prescribed. Patient instructed to call if unable to comply. Sherry Winchester RN documented in this encounter [facility] 09-15-2022 Note [facility] 09-15-2022 History of Present illness Narrative SOCIAL WORK FOLLOW UP NOTE: CANCER CENTER Date of service:09/15/22 Marilin Mae is being seen for a follow up social work visit. Today's visit includes: spouse and patient TOPICS ADDRESSED: community resources and gas cards PLAN: Continue follow up as needed Assigned SW listed in Care Team tab: Yes DEREK PowellCC asked this SW to meet the Patient and at their request regarding gas cards. Patient lives in [facility] and is eligible for up $500 worth of gas cards through the [facility] Cancer [facility] Fund. SW completed an intake application and faxed it. SW asked Patient to contact the [facility] to discuss how to receive the gas cards. Patient and were appreciative. SW will remain available and will follow up as appropriate. ADELITA Beaver documented in this encounter [facility] 09-14-2022 Note [facility] 09-14-2022 History of Present illness Narrative Images from the original note were not included. [facility] Department of Cardiovascular Medicine SECTION OF VASCULAR MEDICINE OUTPATIENT VISIT DATE September 14, 2022 OUTPATIENT VISIT TYPE ESTABLISHED Follow up regarding: DVT Allergies: has No Known Allergies. Medications: Current Outpatient Medications Medication Sig granisetron HCl (KYTRIL) 1 mg tablet Take 1 tablet by mouth 1 hour prior to temozolomide dose to prevent nausea, may take an additional dose in the am if needed temozolomide (TEMODAR) 5 mg capsule Take 3 capsules (15 mg) by mouth once daily with 2 other temozolomide prescriptions for 135 mg total. temozolomide (TEMODAR) 20 mg capsule Take 1 capsule (20 mg) by mouth once daily with 2 other temozolomide prescriptions for 135 mg total. temozolomide (TEMODAR) 100 mg capsule Take 1 capsule (100 mg) by mouth once daily with 2 other temozolomide prescriptions for 135 mg total. prochlorperazine (COMPAZINE) 10 mg tablet Take 1 tablet by mouth every 4 hours as needed. dexAMETHasone (DECADRON) 2 mg tablet Take 1 tablet by mouth every 12 hours for 30 days. LORazepam (ATIVAN) 0.5 mg Take one tablet 60 minutes prior to radiation treatment as needed for anxiety/claustrophobia. May repeat once 15 minutes prior to radiation treatment for anxiety/claustrophobia if still necessary. Do not start before September 11, [address]22. pantoprazole DR (PROTONIX) 40 mg tablet Take 1 tablet by mouth DAILY (6 AM). levETIRAcetam (KEPPRA) 750 mg tablet Take 1 tablet by mouth twice daily. Maintain until follow-up. docusate sodium (COLACE) 100 mg capsule Take 1 capsule by mouth twice daily as needed for constipation. acetaminophen (TYLENOL) 325 mg tablet 2 tablets by ORAL/FEEDING TUBE route every 6 hours as needed for pain or fever (specify). levETIRAcetam (KEPPRA) 750 mg tablet Take 1 tablet by mouth twice daily for 7 days. ergocalciferol 50,000 unit capsule (VITAMIN D2, DRISDOL) Take 50,000 Units by mouth one time a week. hydroCHLOROthiazide (HYDRODIURIL, ESIDRIX) 25 mg tablet Take 25 mg by mouth once daily. meclizine (ANTIVERT) 25 mg tab Take 25 mg by mouth as needed. atorvastatin (LIPITOR) 40 mg tablet (Patient not taking: No sig reported) lisinopril (ZESTRIL, PRINIVIL) 10 mg tablet (Patient not taking: Reported on 09/14/2022) No current facility-administered medications for this visit. Subjective: Seen for follow up. Reviewed hx of DVT and IVC filter with patient and her family. They notes that she has been doing well overall since discharge, and she reports only observed sx is some weakness in right leg -- daughter reminded patient that she had been informed that this was due to her brain surgery / tumor. Discussed propagation of DVT as seen on US today, that being said, she has very minimal swelling. Discussed that propagation may have occurred a few weeks ago while still in hospital even. Reviewed warning sx of additional VTE. No outward s/o bleeding or bruising off anticoagulation, they did recall receiving mini dose heparin or enoxaparin injections. Remainder of 10 system ROS is otherwise negative/normal. Objective: BP 110/63 (BP Site: Left Arm) Pulse 72 Ht 162.6 cm (5' 4 ) Wt 70.2 kg (154 lb 12.8 oz) SpO2 99% BMI 26.57 kg/m General: Alert and oriented, in no acute distress, pleasant mood. Skin: Healthy, intact, no ulcerations, no rashes. HEENT: Head normocephalic, extraocular muscles intact, sclera anicteric, nasal and oral mucosa moist and pink, neck supple, no JVD, no carotid bruit. Cardiovascular: Heart has a regular rate and rhythm without murmur. Respiratory: Lungs clear auscultation bilaterally. Gastrointestinal: Abdomen soft and nontender. No abdominal bruit or palpable mass. Musculoskeletal: No cyanosis or clubbing. Peripheral vascular: Dorsalis pedis and posterior tibial pulses 2+/2 bilaterally. Feet and toes warm pink and well perfused. Lower extremities: Trace ankle edema bilaterally, minimally reduced strength in right lower leg (variable). Labs Component Latest Ref Rng & Units 09/11/2022 WBC 3.70 - 11.00 k/uL 5.20 RBC 3.90 - 5.20 m/uL 3.56 (L) Hemoglobin 11.5 - 15.5 g/dL 10.9 (L) Hematocrit 36.0 - 46.0 % 33.9 (L) MCV 80.0 - 100.0 fL 95.2 MCH 26.0 - 34.0 pg 30.6 MCHC 30.5 - 36.0 g/dL 32.2 RDW-CV 11.5 - 15.0 % 15.5 (H) Platelet Count 150 - 400 k/uL 183 Component Latest Ref Rng & Units 09/11/2022 Protein, Total 6.3 - 8.0 g/dL 5.7 (L) Albumin 3.9 - 4.9 g/dL 3.8 (L) Calcium 8.5 - 10.2 mg/dL 9.4 Bilirubin, Total 0.2 - 1.3 mg/dL 0.3 Alkaline Phosphatase 34 - 123 U/L 52 AST 13 - 35 U/L 13 ALT 7 - 38 U/L 11 Glucose 74 - 99 mg/dL 93 BUN 7 - 21 mg/dL 20 Creatinine 0.58 - 0.96 mg/dL 0.64 Sodium 136 - 144 mmol/L 144 Potassium 3.7 - 5.1 mmol/L 4.2 Chloride 97 - 105 mmol/L 105 CO2 22 - 30 mmol/L 26 Anion Gap 9 - 18 mmol/L 13 eGFR >=60 mL/min/1.73m 90 Imaging 09/14/2022 venous US Compared to prior study of 08/18/2022, New findings of acute deep vein thrombosis in the right peroneal vein, left common femoral, gastrocnemius, posterior tibial and peroneal veins. Positive for propagation of known deep vein thrombosis in the left femoral and popliteal veins. RIGHT SIDE - DEEP VEINS Acute calf deep vein thrombosis in the peroneal veins at the mid calf. LEFT SIDE - DEEP VEINS Acute proximal deep vein thrombosis in the common femoral vein. Positive for propagation of the known deep vein thrombosis in the femoral vein and popliteal vein. Acute calf deep vein thrombosis in the gastrocnemius veins at the knee crease. Acute calf deep vein thrombosis in the posterior tibial veins and peroneal veins at the proximal calf. LEFT SIDE - SUPERFICIAL VEINS Unable to visualize the great saphenous vein. Assessment: Ms. Marilin Mae is a 77 year old female seen regarding acute left femoral, popliteal DVT. PMHx significant for: __HTN __Hyperlipidemia __Remote hx of LLE DVT in the setting of 50yrs ago. No recurrence since then, not on anticoagulation prior to admission. __Arthritis s/p bilateral knee replacements 2012, 2013 __S/p remote ANTON for benign disease __Never smoker __Multifocal brain mass Recently admitted for newly diagnosed right parietal lesions (two, both measuring ~3cm) s/p 08/15/2022 right parietal craniotomy for resection. 08/18/2022 patient had venous US of lower extremities showing acute left femoral and popliteal DVT. Hospital VM team had discussed with NSGY team -- bleeding risk presently prohibitive for use of anticoagulation due to recent crani (also surgical pathology showing gliosis -> suggesting glioblastoma). Favored IVC filter placement. Later had trial of heparin IV while admitted but there was concern re increased SDH in operative bed. Seen for follow up. Discussed propagation of lower extremity DVT as seen on ultrasound today: 09/14/2022 new acute right peroneal vein DVT, and left has propagated to the common femoral from the femoral - popliteal segments and into the gastroc, PT, and peroneal veins in the calf. Fortunately does not have significant lower extremity symptoms associated with DVT. No other new sx today, spent visit discussing anticipated management for DVT and expectations regarding IVC filter retrieval at later date. plan: __Discussed that I will need to discuss with NSGY team re risks of bleeding and whether she is candidate for trial of anticoagulation -- or at least to remain on prophylactic intensity anticoagulation. Discussed that apixaban vs enoxaparin would be likely anticoagulants. __Discussed that IVC filter will remain in place until being certain that she can tolerate therapeutic intensity anticoagulation to treat / prevent recurrent thrombosis. __Reviewed warning sx of increasing leg DVT burden, filter thrombosis, and PE for which she needs immediate evaluation. __Follow up: 3 months with repeat leg ultrasound before appointment. OK to have ultrasound locally and then VV after if unable to coordinate with other appts in [place] around that time. Martina Gutierrez MD documented in this encounter [facility] 09-14-2022 Note [facility] 09-13-2022 History of Present illness Narrative Radiation Oncology - On Treatment Review (OTR) Note PATIENT NAME: Marilin Mae PATIENT Max Stallings MD documented in this encounter [facility] 09-13-2022 Note [facility] 09-13-2022 Miscellaneous Notes Patient started/will start taking Temodar on 09/13/22. Sherry Winchester RN documented in this encounter [facility] 09-13-2022 Note [facility] 09-13-2022 History of Present illness Narrative ORAL ANTI-CANCER AGENTS EDUCATION patient, spouse, and daughters here today for oral medication education for Temozolomide (Temodar) for Glioblastoma READINESS TO LEARN Cognitive Ability: Alert and oriented Motivation to Learn: Interested Family Support: High - Very involved in pt care Instruction Provided to: Patient, Spouse, and Daughters Patient learns best by: Multiple Methods Factors affecting learning: None Physical limitation affecting learning: None MCMAHON ASSESSMENT: 1.) Verified that patient knows that the oral agents are for cancer and are taken by mouth. Yes 2.) Medication reconciliation completed during visit. Yes Pt's daughter will be calling back on Sunday with a medication update. Will reach out to PCP as well as vascular to see what medications pt should be taking after recent discharge 3.) Patient is able to swallow pills. Yes 4.) Patient is able to read the drug label/information. Yes 5.) Patient is able to open the medication bottles and packages. Yes 6.) Has patient taken other pills for cancer? No 7.) Is patient experiencing any symptoms that would affect their ability to keep down pills, for example nausea or vomiting? No 8.) Verified that patient understands prescription delivery, benefit investigation and refill process. Yes Pt will be filling through [facility] pharmacy PATIENT EDUCATION: 1.) Verified that patient attended individualized instruction on chemotherapy taught by a pharmacist. and nurse. Yes 2.) Verified that patient received Chemotherapy Safety in the Home handout and ChemoCare Medication Information handout: Temodar: Yes DRUG-SPECIFIC EDUCATION: 1.) Verified that patient knows the drug name. Yes 2.) Verified patient understands the dose and schedule of oral chemo agent:with water, at least one hour before or two hours after a meal. Pt will take at bedtime. Yes 3.) Verified patient knows what to do if a medication dose is missed. Yes 4.) Verified patient understands where to store the drug. Yes 5.) Verified patient understands potential side effects and how to manage them. Yes Nausea , Vomiting, Diarrhea, Fever / Chills / Risk for Neutropenic Fever, Headache, Neutropenia, Thrombocytopenia, Anemia, Fatigue, Abdominal Discomfort, Rash, Myalgia, Arthalgia, Hypersensitivity Reaction, Chest Pain, Shortness of Breath, Risk for DVT, and Fluid Retention 6.)Verified that patient understands handling precautions of oral chemo agent. Yes 7.) Verified that patient understands when and whom to call with questions. Yes 8.) Verified that patient understands where and how to return drug. Yes EVALUATE: Patient was able to demonstrate an understanding of all the above education using the teach-back method. Yes Patient instructed to call us with any questions, concerns, and/or unresolved symptoms. Will continue to follow up with patient and provide reinforcement of teaching topics as needed. Total time spent with patient: 60 minutes Total time spent on encounter: 5 minutes Sherry Winchester RN Images from the original note were not included. [facility] Department of Pharmacy Oncology Pharmacy Medication Education Patient Name: Marilin Mae Primary Oncologist: Anshul Riggs Diagnosis: Glioblastoma Marilin Mae is a 77 year old patient, spouse, and daughter here today for medication education for PO Temozolomide (Temodar). Drug Interactions: Clinically significant interactions with chemotherapy, immunosuppression, or other standard of care treatment plan medications anticipated: No. There are no pertinent drug interactions identified. Patient was counseled accordingly. Allergies: Patient confirmed allergies documented in Epic are correct: Yes Was medication education provided?: Yes Medication Education: Administration and schedule: 1*100mg, 1*20mg, and 3*5mg for a total dose of 135mg by mouth once daily at bedtime Potential side effects discussed: anemia, appetite changes, electrolyte disturbances, fatigue, fluid retention, infection, nausea/vomitting, neutropenia, peripheral edema, thrombocytopenia PO chemo: Verified patient understands where to store the drug. Yes Verified that patient understands prescription delivery, benefit investigation and refill process. Yes Was medication reconciliation performed?: No-family to call with correct current medications after vascular appt tomorrow - Chemotherapy education was provided by a pharmacist YES - Provided important phone numbers and contacts during and after hours. YES - Provided information on symptoms that require immediate assistance. YES - Provided Chemotherapy when to call handouts YES - Preventing infection. YES - Treatment schedule and confirmation of appointment times. YES - Available support groups. NA - The importance of contraception during the course of chemotherapy NA - Prescriptions for anti-emetics or treatment prep was given: Compazine and Kytril. YES Thank you for allowing us to participate in the care of this patient. I spent 15 time (15 minute increments) with the patient Jennifer Haddad RPh Pager: documented in this encounter [facility] 09-13-2022 Miscellaneous Notes Addended by: JAMAICA HADDAD on: 09/13/2022 12:52 PM Modules accepted: Orders documented in this encounter [facility] 09-12-2022 Note [facility] 09-12-2022 History of Present illness Narrative PATIENT NAME: Marilin Mae [facility] NO.: [id number] ATTENDING PHYSICIAN: Anshul Riggs MD DATE OF SERVICE: September 12, [address] Milvia Hinkle, thank you for referring Mrs Marilin Mae for an opinion regarding GBM. CHIEF COMPLAINT: I have Brain cancer HPI: Marilin Mae is a 77 year old year old female with PMH HTN, HLD initially presented to ED 08/08/2022 with R sided weakness and on imaging was noted to have a multicentric 3.3 x 3 cm x 3 cm R parietal and a 2.8 x 2.6 x 1.8 R parieto-occipital ring-enhancing lesions with FLAIR changes and vasogenic edema. She was referred to NS at [facility] and underwent right parietal craniotomy on 08/14. Path with GBM and methylated MGMT as well. Post op DVT in the LLE and she had an IVC filter placed 08/13/2022. CT 08/25/2022 with small R Frontal subdural hematoma and follow up CT without progression. She follows vascular team at [facility] She is doing much better, denies any seizures and or WATKINS. She states that she is eating better and denies any rashes. She is on Dex 2 mg PO BID and Keppra as well. She states that she is not on any AC and seeing vascular this week for follow up and planned to have IVC removed as well. Current Outpatient Medications Medication Sig dexAMETHasone (DECADRON) 2 mg tablet Take 1 tablet by mouth every 12 hours for 30 days. LORazepam (ATIVAN) 0.5 mg Take one tablet 60 minutes prior to radiation treatment as needed for anxiety/claustrophobia. May repeat once 15 minutes prior to radiation treatment for anxiety/claustrophobia if still necessary. Do not start before September 11, [address]22. pantoprazole DR (PROTONIX) 40 mg tablet Take 1 tablet by mouth DAILY (6 AM). prochlorperazine (COMPAZINE) 10 mg/2 mL (5 mg/mL) soln injection Inject 10 mg intravenously every 6 hours as needed. senna-docusate (SENNA-S) 8.6-50 mg per tablet 1 tablet by ORAL/FEEDING TUBE route twice daily. levETIRAcetam (KEPPRA) 750 mg tablet Take 1 tablet by mouth twice daily. Maintain until follow-up. docusate sodium (COLACE) 100 mg capsule Take 1 capsule by mouth twice daily as needed for constipation. heparin 5,000 unit/mL injection Inject 1 mL subcutaneously every 8 hours. acetaminophen (TYLENOL) 325 mg tablet 2 tablets by ORAL/FEEDING TUBE route every 6 hours as needed for pain or fever (specify). atorvastatin (LIPITOR) 40 mg tablet ergocalciferol 50,000 unit capsule (VITAMIN D2, DRISDOL) hydroCHLOROthiazide (HYDRODIURIL, ESIDRIX) 25 mg tablet lisinopril (ZESTRIL, PRINIVIL) 10 mg tablet meclizine (ANTIVERT) [address] (PROTONIX) 40 mg tablet Take 1 tablet by mouth once daily at 6 am for 30 days. levETIRAcetam (KEPPRA) 750 mg tablet Take 1 tablet by mouth twice daily for 7 days. No current facility-administered medications for this visit. ALLERGIES No Known Allergies PAST MEDICAL HISTORY Diagnosis Date Arthritis Brain mass 2021 Cataracts, bilateral Family history of cancer History of blood clots HTN (hypertension) Hyperlipidemia PAST SURGICAL HISTORY Procedure Laterality Date COLONSCOPY SCREENING HIGH RISK TOTAL ABDOM HYSTERECTOMY TOTAL KNEE REPLACEMENT Right 2013 TOTAL KNEE REPLACEMENT Left 2014 FAMILY HISTORY Problem Relation Age of Onset Stroke Mother Social History Tobacco Use Smoking status: Never Smokeless tobacco: Never Vaping Use Vaping Use: Never used Substance Use Topics Alcohol use: Not Currently Alcohol/week: 1.0 standard drink Types: 1 Glasses of wine per week Comment: 1 glass per day Drug use: Never REVIEW OF SYSTEMS GENERAL: No weight loss, malaise or fevers. No night sweats. HEENT: Negative for headaches, No changes in hearing or vision, no nose bleeds or other nasal problems. RESPIRATORY: Negative for cough, wheezing and shortness of breath CARDIOVASCULAR: Negative for chest pain, leg swelling and palpitations GI: Negative for abdominal discomfort, blood in stools or black stools and change in bowel habits : Negative for dysuria, frequency and incontinence MUSCULOSKELETAL: Negative for joint pain or swelling, back pain, and muscle pain. SKIN: Negative for lesions, rash, and itching. HEMATOLOGY/LYMPHOLOGY Negative for prolonged bleeding, bruising easily, and swollen nodes. NEURO: Negative for numbness or tingling of hands/feet. No weakness. PHYSICAL EXAMINATION: BP 132/70 Pulse 83 Temp 36.1 C (97 F) (Temporal) Resp 16 Ht 162.6 cm (5' 4.02 ) Wt 72.6 kg (160 lb) SpO2 97% BMI 27.45 kg/m Wt 72.6 kg (160 lb) BMI 27.45 kg/m2 Last 3 Encounter Wt Readings: Date: Wt: 09/12/2022 72.6 kg (160 lb) 08/13/2022 73 kg (160 lb 15 oz) 08/07/2022 74.7 kg (164 lb 10.9 oz) General appearance:ECOG PERFORMANCE STATUS: 1- Restricted in physically strenuous activity. Carries out light duty. Patient in NAD. Skin: Skin color, texture, turgor normal. No rashes or lesions. Eyes: Anicteric sclera. Pupils are equally round and reactive to light. Extraocular movements are intact. Breast: No palpable breast masses. No nipple change or discharge. Lymph Nodes: No cervical, supraclavicular, axillary or inguinal adenopathy. Oropharynx: Lips, mucosa, and tongue normal. Back: No pain to percussion. Negative SLR test Lungs clear to auscultation, No wheezing or rhonchi Heart: RRR without murmur, gallop, or rubs. Abdomen soft, non-tender. No masses, organomegaly Extremities: No deformities. No edema Neuro: Gait and speech normal. Reflexes normal and symmetric. Muscular strength intact. Sensation grossly intact. Rectal: Deferred : Deferred LABS: Glucose (mg/dL) Date Value 09/11/2022 93 Potassium (mmol/L) Date Value 09/11/2022 4.2 Sodium (mmol/L) Date Value 09/11/2022 144 Chloride (mmol/L) Date Value 09/11/2022 105 CO2 (mmol/L) Date Value 09/11/2022 26 Creatinine (mg/dL) Date Value 09/11/2022 0.64 BUN (mg/dL) Date Value 09/11/2022 20 Anion Gap (mmol/L) Date Value 09/11/2022 13 Calcium, Total (mg/dL) Date Value 09/11/2022 9.4 Protein, Total (g/dL) Date Value 09/11/2022 5.7 Albumin (g/dL) Date Value 09/11/2022 3.8 Bilirubin, Total (mg/dL) Date Value 09/11/2022 0.3 Alkaline Phosphatase (U/L) Date Value 09/11/2022 52 AST (U/L) Date Value 09/11/2022 13 ALT (U/L) Date Value 09/11/2022 11 WBC Date Value Ref Range Status 09/11/2022 5.20 3.70 - 11.00 k/uL Final RBC Date Value Ref Range Status 09/11/2022 3.56 (L) 3.90 - 5.20 m/uL Final Hemoglobin Date Value Ref Range Status 09/11/2022 10.9 (L) 11.5 - 15.5 g/dL Final Hematocrit Date Value Ref Range Status 09/11/2022 33.9 (L) 36.0 - 46.0 % Final MCV Date Value Ref Range Status 09/11/2022 95.2 80.0 - 100.0 fL Final MCH Date Value Ref Range Status 09/11/2022 30.6 26.0 - 34.0 pg Final MCHC Date Value Ref Range Status 09/11/2022 32.2 30.5 - 36.0 g/dL Final RDW-CV Date Value Ref Range Status 09/11/2022 15.5 (H) 11.5 - 15.0 % Final Platelet Count Date Value Ref Range Status 09/11/2022 183 150 - 400 k/uL Final MPV Date Value Ref Range Status 09/11/2022 10.8 9.0 - 12.7 fL Final Abs Neut Date Value Ref Range Status 09/11/2022 3.69 1.45 - 7.50 k/uL Final Lymph% Date Value Ref Range Status 09/11/2022 17.1 % Final Abs Lymph Date Value Ref Range Status 09/11/2022 0.89 (L) 1.00 - 4.00 k/uL Final [place]% Date Value Ref Range Status 09/11/2022 8.5 % Final Abs [place] Date Value Ref Range Status 09/11/2022 0.44 <0.87 k/uL Final Eosin% Date Value Ref Range Status 09/11/2022 1.5 % Final Abs Eosin Date Value Ref Range Status 09/11/2022 0.08 <0.46 k/uL Final Baso% Date Value Ref Range Status 09/11/2022 0.2 % Final Abs Baso Date Value Ref Range Status 09/11/2022 <0.03 <0.11 k/uL Final PATH: 08/14/2022 Craniotomy: FINAL DIAGNOSIS A-B. Right parietal lobe, excision: - Morphologically consistent with high grade glioma. RAP/barron 08/17/2022 Diagnosis Comment The tumor is marked by prominent cellularity, identifiable mitotic activity, vascular proliferative changes and necrosis. Immunostains were performed on block B2. The tumor did not stain with antibody to IDH-1(R132H) . ATRX staining was retained. Focally, greater than 30% of cells demonstrate p53 immunostaining. A Ki-67 index in excess of 30% is noted. Additional molecular testing including 1p/19q FISH, EGFR FISH, MGMT analysis and IDH1/2 PCR have been ordered on this case and results will be signed out separately when available. If the tumor demonstrates evidence of co-deletion on chromosomes 1p and 19q and evidence of an IDH mutation, the tumor should be considered an oligodendroglioma, WHO Grade 3. If the tumor does not show both of the aforementioned molecular findings, the tumor should be considered a high grade astrocytic neoplasm. If the tumor represents an astrocytoma and demonstrates evidence of an IDH mutation, the tumor should be considered an astrocytoma, WHO Grade 4. If the tumor is an astrocytoma and does not show evidence of and IDH mutation, the tumor should be considered a glioblastoma, WHO Grade 4. Chromosome 1p: INTACT, EUSOMIC Chromosome 19q: INTACT, EUSOMIC RESULTS: EGFR AMPLIFIED IDH1 - No variant detected [Reference sequence: ([id number])]. IDH2 - No variant detected [Reference sequence: ([id number])]. Hypermethylated (The mean methylation of MGMT promoter region is greater than or equal to 12%) IMAGING: MRI Brain 07/2022: Dominant heterogeneous enhancing masses are present in the right parietal lobe distorting the adjacent posterior right frontal lobe and paramedian right parietal lobe, measuring approximately 2.8 cm and 2 cm respectively. Additional smaller enhancing satellite nodules are visible. Main differential considerations are high-grade neoplasm such as glioblastoma, anaplastic astrocytoma or metastasis. There is local mass effect and effacement of the atrium of the right lateral ventricle. No gross midline shift or herniation. US 08/18/2022: LEFT SIDE - DEEP VEINS Acute proximal deep vein thrombosis in the femoral vein from proximal to distal. Acute proximal deep vein thrombosis in the popliteal vein. ASSESSMENT AND PLAN: Marilin Mae is a 77 year old year old female HTN and HLD with newly diagnosed multicentric GBM, MGMT hypermethylation and EGFR amplification post gross resection. IDH 1 and 2 are negative and no 1p and 19q abnormalities as expected in GBM. She developed an asymptomatic DVT and had IVC filter due to proximity to craniotomy was placed on heparin full dose and had a small subdural hematoma and was on prophylactic heparin at rehab. GBM post gross resection- Proceed with planned concurrent Temodar and radiatiopn and then adjuvant Temodar for 6 months. Discussed the toxicities, GI, hematologic and also infectious and she understands. Will schedule teach and start concurrently with XRT. Anti-emetics provided as well 2. Continue Dexamethasone and taper accordingly- On 2 mg PO BID now 3. On Keppra per NS. No recorded SZ activity 4. DVT L Leg 08/18/2022- post IVC filter and plan for removal. She will need to be on full dose AC. Preferably a NOAC as that is associated with lower WOOD BORER bleed risk and she may need senior care AC due to her malignancy but if she is in remission may consider stopping after 6 months and completion of treatment. She is seeing Vascular later this week and will decide on restarting therapy. 5. Arrange chemo teach 6. See back next week Dear Dr. Milvia Hinkle thank you for allowing me to participate in Mrs. Marilin Mae care, if there are any questions or concerns please do not hesitate to contact me at the number below. Anshul Riggs M.D. Hematology/Medical Oncology [facility] [phone] CC: Milvia Hinkle MD I spent a total of 60 minutes on the date of the service which included preparing to see the patient, [id number] patient care, completing clinical documentation, obtaining and/or reviewing separately obtained history, performing a medically appropriate examination, counseling and educating the patient/family/caregiver, and ordering medications, tests, or procedures. documented in this encounter [facility] 09-04-2022 Miscellaneous Notes I notified Mr. Mae and Molly that we rescheduled Dr. Riggs's consult to 09/12/22 at 11:00 and Radiation therapy new start rescheduled to 09/13/22 for an 1115 arrival. I notified them that Dr. Stallings will send a prescription for Ativan to our pharmacy and it will be available on 09/12/22 when they are here for consultation. Both family members are very thankful for our call and deny questions at this time. Aminah Bryant LPN Will send script for Ativan to the pharmacy which can be picked up when she is here for appointment with Dr. Riggs. Thanks! Max Sounds good Molly, pt's dtr, called stating Marilin is still inpt at [facility] and is expected to be dc'd 09/11/22 a.m. She said Marilin is extremely claustrophobic and will need to be premedicated. She said the physicians in [place] told her Dr. Stallings could prescribe her something. NKDA- Please advise. We are working on coordinating her radiation therapy new start and consult with Dr. Riggs upon discharge. Aminah Bryant LPN documented in this encounter [facility] 09-04-2022 Miscellaneous Notes I can see 09/11 BOOGIE: You can disregard. Karlene Clark and radiation are working on getting this all rescheduled appropriately. Shaniqua Nieto RN Received call from pt's stating pt is scheduled for her first appt with Dr Riggs tomorrow but she is still in acute rehab at [facility] so they would like to know if appt can be a virtual visit or if appt can be same day as her radiation appt on 09/11 which is when she is due to be discharged from rehab. BOOGIE: Please advise. Shaniqua Nieto RN documented in this encounter [facility] 08-29-2022 Note HNO ID: [id number] Author: Ilsa Ybarra RN Service: ? Author Type: Registered Nurse Type: Nursing Progress Note Filed: 08/29/2022 4:42 AM Note Text: Event(s) / Intervention Note: 2233 - Called report to Carrol PEREIRA, spoke with DEREK Bourgeois. [facility] 08-27-2022 Note [facility] 08-27-2022 Note [facility] 08-26-2022 Note [facility] 08-26-2022 Note [facility] 08-25-2022 Note [facility] 08-25-2022 Note [facility] 08-25-2022 Note [facility] 08-25-2022 Note [facility] 08-25-2022 Note [facility] 08-25-2022 Note [facility] 08-25-2022 Note [facility] 08-25-2022 History of Present illness Narrative MARILIN MAE [id number] 08/25/2022 [facility] Department of Radiation Oncology [facility] RADIATION ONCOLOGY SIMULATION NOTE DATE OF SIMULATION: 08/25/2022 MACHINE: CT Simulator DIAGNOSIS: 77 yo female with right parietal glioblastoma IDH wt, EGFR amplified, MGMT hypermethylated s/p STR of hemorrhagic mass on 08/14/2022 with post-operative DVT. AREA:BRAIN PATIENT POSITION: Supine. CONTRAST: None PROTOCOL: None BLOCKS: Custom blocks are necessary to develop an optimal plan. (IMRT/VMAT) FIXATION DEVICE: In order to achieve accurate and reproducible treatments, the patient is immobilized mask. PROCEDURE: A time-out was conducted and recorded by the therapist. Patient was simulated on the CT scanner for external beam radiation therapy. Treatment site was marked by the simulation therapist. ASSESSMENT/PLAN: Patient tolerated simulation procedure well. Treatments will be initiated after treatment planning. The patient will be scheduled for a verification simulation on the treatment machine to ensure proper set-up and field arrangement is correct prior to the first treatment of primary and any boost patel if applicable. Electronically Signed Puneet Gautam M.D. 35:45 PM documented in this encounter [facility] 08-25-2022 History of Present illness Narrative MARILIN MAE [id number] 08/25/2022 [facility] Department of Radiation Oncology Treatment Planning Note For reasons stated in the consult note, Marilin Mae is a candidate for radiation therapy. Based on review and interpretation of the relevant diagnostic studies together with the exam findings, Marilin Mae was simulated on 08/25/2022 at which time the target volume and/or requisite patel were delineated, as indicated in the simulation note, to be treated according to the prescription. The treatment target and organs at risk were contoured on the simulation scan using the fused MRI. Special consideration to these and other structures was given in light of the potential for increased toxicities of combined chemoradiation. After reviewing multiple treatment plans with dosimetry, the best plan was approved to deliver the prescribed course of radiation to the target area using inverse planning to allow for the best isodose distribution, treating to the 98% isodose line with 6MV and 4 patel. Custom MLC for IMRT was the treatment device used to shape/modify the beams. Limiting dose to normal tissue was confirmed upon review of the calculated dose volume histogram. IMRT planning was used because it best met the dose/volume constraints for the organs at risk for this patient, better than what could be achieved using conventional or 3D planning. The specific dose requirements for the PTV, organs at risk and dose-volume histograms are contained in this treatment plan and/or elsewhere in the medical record. A completed summary of this plan dated 08/31/22 incorporated herein by reference includes dose, beam arrangements, energy, blocking, isodose distribution, and/or ports and DVH. Electronically Signed Puneet Gautam M.D. 38:29 PM documented in this encounter [facility] 08-25-2022 History of Present illness Narrative MARILIN MAE [id number] 08/25/2022 [facility] Department of Radiation Oncology [facility] RADIATION ONCOLOGY SIMULATION NOTE DATE OF SIMULATION: 08/25/2022 MACHINE: CT Simulator DIAGNOSIS: 77 yo female with right parietal glioblastoma IDH wt, EGFR amplified, MGMT hypermethylated s/p STR of hemorrhagic mass on 08/14/2022 with post-operative DVT. AREA:BRAIN PATIENT POSITION: Supine. CONTRAST: 100CC IV OMNIPAQUE PROTOCOL: None BLOCKS: Custom blocks are necessary to develop an optimal plan. (IMRT/VMAT) FIXATION DEVICE: In order to achieve accurate and reproducible treatments, the patient is immobilized mask. PROCEDURE: A time-out was conducted and recorded by the therapist. Patient was simulated on the CT scanner for external beam radiation therapy. Treatment site was marked by the simulation therapist. ASSESSMENT/PLAN: Patient tolerated simulation procedure well. Treatments will be initiated after treatment planning. The patient will be scheduled for a verification simulation on the treatment machine to ensure proper set-up and field arrangement is correct prior to the first treatment of primary and any boost patel if applicable. Electronically Signed Puneet Gautam M.D. 39:00 PM documented in this encounter [facility] 08-24-2022 Note [facility] 08-23-2022 Note [facility] 08-23-2022 Note [facility] 08-22-2022 Note [facility] 08-21-2022 Note [facility] 08-20-2022 Note [facility] 08-19-2022 Note [facility] 08-19-2022 Note HNO ID: [id number] Author: Interface Note Service: ? Author Type: ? Type: Progress Notes Filed: 08/19/2022 4:18 AM Note Text: Epic Scheduled Downtime: 08/19/2022 1:00:00 AM to 08/19/2022 3:56:00 AM [facility] 08-18-2022 Note [facility] 08-18-2022 Note [facility] 08-17-2022 Note [facility] 08-16-2022 Note [facility] 08-15-2022 Note [facility] 08-15-2022 Note [facility] 08-14-2022 Note [facility] 08-14-2022 Note [facility] 08-14-2022 Note [facility] 08-14-2022 Note [facility] 08-14-2022 Note [facility] 08-14-2022 Note [facility] 08-14-2022 Note [facility] 08-10-2022 Miscellaneous Notes Time Frame: 2 week post op-please schedule for Aug 24 or please Orders: none Provider: fede castro for wound check, and any med onc and rad onc please Surgery/GK Date: 08/14/22* Diagnosis: brain tumor documented in this encounter [facility] 08-09-2022 Note [facility] 08-09-2022 Note [facility] 08-08-2022 Note [facility] 08-08-2022 Note [facility] 08-08-2022 Note [facility] 08-07-2022 Miscellaneous Notes Agree Daughter calls stating pt has declined throughout the day today and they are taking her to main [facility]. Daughter states she's having more problems walking, headache, nausea, dizziness, and involuntary movements of her left arm. They wanted our office to be aware. Sherry Winchester RN documented in this encounter [facility] 08-07-2022 Miscellaneous Notes Thanks Spoke to patient & rescheduled for 08/15/2022@11 am. Vianney Garcia Let's reschedule her appointment to after that so we have a better plan. Thanks Pt has been scheduled with Dr Montero on 08/10. KK: do you still want to see pt on 08/08, or reschedule to after Dr Montero's appointment? Please advise Sherry Winchester RN Patient's and daughter called & was inquiring about the consult to neurosurgery. Advised & daughter that Dr Wong office should be calling them soon to schedule an appointment. Vianney Garcia I spoke with Dr. Wong and also send him a message in this regard Called and spoke with dr office they have to triage it and will call patient to schedule Dr Riggs just called stating he spoke with Dr Gerard Wong and he's agreed to see the pt. Please call his office and schedule Thanks Sherry Winchester RN Records are scanned and images are uploaded. Julia keep me posted and I will call after sent and order Is signed Dr Hinkle has spoke with Dr Riggs regarding this pt and he would like a consult to neurosurgery JACQUE. Spoke with Julia in med records and she will be getting these records from [facility] as soon as she can. KK: please sign pending order PSS: please schedule neurosurgery consult JACQUE Thanks Sherry Winchester RN documented in this encounter [facility] 08-04-2022 Miscellaneous Notes Duplicate entry. Please see triage completed on 08/03/22 by Maryanne Yeung APRN.DIRECTOR OF CARDIOPULMONARY SERVICES MD Sherry Sams RN Future Order Information Expires 08/03/23 Associated Diagnoses Brain mass [G93.89] Reason for Exam Priority: Routine Dx: Brain mass [G93.89 (ICD-10-CM)] Order Questions Question Answer [facility] Epic access? Yes [facility] Brain Tumor documented in this encounter [facility] 08-03-2022 Miscellaneous Notes Images from the original note were not included. Time Frame: URGENT/JACQUE Provider: Intra-axial surgeon Referring: Anshul Riggs MD Please instruct patient to hand carry/ upload images prior to appt Dx: Probable high grade neoplasm/GBM ___ Patient: Marilin Mae Address: Marilin Mae [id number] [place] [id number] Per Triage: Marilin Mae is a 77 year old female that requests evaluation of ~ 3 cm enhancing lesions with surrounding edema in the right parietal lobe. The larger with central necrosis - felt to be GBM. Presented with left sided weakness/decreased dexterity and gait impairment. Referred by: Anshul iRggs MD Patient expectations: New Consult Tumor Specifics: Location: brain Previous Evaluations: MRI w/wo contrast (BRAIN):08/01/22 Previous Treatments: None Impression: Based on triage, recommend patient be scheduled with Intra Axial Surgeons Maryanne Nieto APRN.CNP August 03, 2022 1. Epic: Who is requesting this appointment? Anshul Riggs MD 2. Epic: Please indicate the best contact information for our team to reach you with any questions/concerns we may have: 3. Epic: For this appointment, we will need to request a few records from you. This will help our triage team be able to select the best provider for your treatment: MRI-BRAIN 4. Have you had any surgeries pertaining to this appointment? No 5. Epic: What facility and/or hospital have you been seen at? [facility] 6. Epic: Please allow up to 48-72 hours for our triage team to review your records. Once they reviewed your records, we will be in contact with you. Was the patient made aware of the turnaround time? Yes 7. Epic: Our department offers virtual visits. Can I get you scheduled to be seen virtually?No 8. Sent to triage pool. (Waiting on approval) 9. What is your expectation? Appointment with Dr. Wong. (Dr. Wong has agreed to see the patient) Jessica documented in this encounter [facility] 08-01-2022 Note HISTORY: Left side w eakness, unsteady gait x 1 week. PROCEDURE: Without IV contrast, images of the brain were performed. FINDINGS: No intracranial hemorrhage. Several hyperdense nodular areas within the right parietal lobe near midline, surrounding intra-axial edema occupying the right centrum semiovale. No significant midline shift. No acute or subacute major vessel ischemia. Mild diffuse underlying loss of brain volume. Unremarkable mastoid air cells, paranasal sinuses, and orbital contents. IMPRESSION: Right parietal findings consistent with a neoplastic process, likely metastatic disease, with significant intra-axial edema. Recommend evaluation for site of a primary malignancy (chest, abdomen, and pelvis CT and possibly brain MRI) for further characterization Report reported and signed by Carl Harp on 08/02/2022 [id number] [facility] Manager Reporting Evaluation note No assessment [facility]: Evaluation note Diagnosis Brain mass- Primary Unspecified condition of [facility] ([facility])- Primary Neoplasm of unspecified nature of brain [facility] Brain tumor ([facility])- Primary Neoplasm of unspecified nature of brain [facility] Diagnosis Glioblastoma multiforme (HCC)- Primary Malignant neoplasm of brain, unspecified site [facility] Diagnosis Glioblastoma multiforme (HCC)- Primary Malignant neoplasm of brain, unspecified site [facility] Diagnosis Glioblastoma multiforme (HCC)- Primary Malignant neoplasm of brain, unspecified site [facility] Diagnosis Acute deep vein thrombosis (DVT) of left femoral vein (HCC)- Primary Personal history of DVT (deep vein thrombosis) Personal history of venous thrombosis and embolism Glioblastoma multiforme (HCC) Malignant neoplasm of brain, unspecified site [facility] Brain tumor ([facility])- Primary Neoplasm of unspecified nature of brain [facility] Diagnosis Glioblastoma multiforme (HCC)- Primary Malignant neoplasm of brain, unspecified site [facility] Diagnosis Brain tumor (HCC) Neoplasm of unspecified nature of brain [facility] Diagnosis Glioblastoma multiforme (HCC)- Primary Malignant neoplasm of brain, unspecified site [facility] Diagnosis Brain tumor (HCC)- Primary Neoplasm of unspecified nature of brain [facility] Brain tumor (HCC)- Primary Neoplasm of unspecified nature of brain [facility] Brain tumor (HCC)- Primary Neoplasm of unspecified nature of brain [facility] Diagnosis Glioblastoma multiforme (HCC)- Primary Malignant neoplasm of brain, unspecified site [facility] Diagnosis Brain tumor (HCC)- Primary Neoplasm of unspecified nature of brain [facility] Brain tumor (HCC)- Primary Neoplasm of unspecified nature of brain Left leg weakness Other musculoskeletal symptoms referable to limbs [facility] Brain tumor (H[facility])- Primary Neoplasm of unspecified nature of brain Left leg weakness Other musculoskeletal symptoms referable to limbs [facility] note* Diagnosis Glioblastoma multiforme (HCC)- Primary Malignant neoplasm of brain, unspecified site 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) [facility] Diagnosis Glioblastoma multiforme (HCC)- Primary Malignant neoplasm of brain, unspecified site [facility] Diagnosis Glioblastoma multiforme (HCC)- Primary Malignant neoplasm of brain, unspecified site [facility] Diagnosis Glioblastoma multiforme (HCC)- Primary Malignant neoplasm of brain, unspecified site [facility] Diagnosis Glioblastoma multiforme (HCC)- Primary Malignant neoplasm of brain, unspecified site [facility] Diagnosis Glioblastoma multiforme (HCC)- Primary Malignant neoplasm of brain, unspecified site Anxiety about health Other depression [facility] Diagnosis Glioblastoma multiforme (HCC)- Primary Malignant neoplasm of brain, unspecified site [facility] Diagnosis Glioblastoma multiforme (HCC) Malignant neoplasm of brain, unspecified site [facility] Diagnosis Glioblastoma multiforme (HCC)- Primary Malignant neoplasm of brain, unspecified site Anxiety Anxiety state, unspecified [facility] Diagnosis Glioblastoma multiforme (HCC)- Primary Malignant neoplasm of brain, unspecified site [facility]* Diagnosis S/P IVC filter- Primary Other postprocedural status Recurrent deep vein thrombosis (DVT) (HCC) Glioblastoma (HCC) Malignant neoplasm of brain, unspecified site Hypercoagulable state (HCC) Primary hypercoagulable state [facility]* Diagnosis 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 Anxiety disorder in conditions classified elsewhere Glioblastoma multiforme (HCC) Malignant neoplasm of brain, unspecified site Anxiety Anxiety state, unspecified Panic disorder without agoraphobia [facility] Diagnosis Presence of IVC filter- Primary Other postprocedural status S/P IVC filter Other postprocedural status [facility] Diagnosis Glioblastoma multiforme (HCC) Malignant neoplasm of brain, unspecified site 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 [facility] Diagnosis Glioblastoma (HCC)- Primary Malignant neoplasm of brain, unspecified site Cerebral autosomal dominant arteriopathy with subcortical infarcts and leukoencephalopathy Unspecified cerebral artery occlusion with cerebral infarction Other specified disorders of central nervous system [facility] Diagnosis Glioblastoma (HCC)- Primary Malignant neoplasm of brain, unspecified site [facility] Diagnosis Glioblastoma (HCC)- Primary Malignant neoplasm of brain, unspecified site [facility] Diagnosis Glioblastoma multiforme (HCC)- Primary Malignant neoplasm of brain, unspecified site [facility] Additional Instructions Continue home medications as prescribed Elevate your lower extremities as discussed Return here if any problems persist or worsen including shortness of breath, chest pain or any other [facility] Work Phone: Reason for referral (narrative)* Outpatient Procedure (Routine) - Authorized Specialty Diagnoses / Procedures Referred By Anabela t Referred To Contact [facility] Diagnoses Personal history of DVT (deep vein thrombosis) Procedures US LEG VEIN DVT VIVIENNE VAS LAB DUP-SCAN XTR VEINS COMPLETE BILATERAL STUDY Martina Gutierrez MD [address] [place] [address] [facility] [place] [facility] [place] [address] Referral ID Status Reason Start Date Expiration Date Visits Requested Visits Authorized [id number] Authorized Auto-Generat ed Referral 09/14/2022 09/14/2023 1 1 [facility] Outpatient Procedure (Routine) - Pending Review Specialty Diagnoses / Procedures Referred By Anabela varma Referred [facility] Diagnoses Glioblastoma (HCC) Procedures ECG COMPLETE ECG ROUTINE ECG W/LEAST 12 LDS W/I&R Dipika Duff MD [address] [place] [address] [facility] [place] [address] [place] [id number] Referral ID Status Reason Start Date Expiration Date Visits Requested Visits Authorized [id number] Pending Review Auto-Generat ed Referral 3 06/07/2024 1 1 [facility] Summary Purpose Family History No Family History Records FoundNo Family History Records FoundNo Family History Records FoundNo Family History Records FoundNo Family History Records Found Advance Directives No Advanced Directives Records Found Advance Directive Response Recorded Date/ Time Advance Directives No March 12:18pm Latest Code Status on File Code Status Date Activated Date Inactivated Comments Full Code 11/04/2022 7:56 PM 11/07/2022 10:06 PM Full Code Order Discussed With: Patient Latest Code Status on File Code Status Date Activated Date Inactivated Comments Full Code 11/04/2022 7:56 PM 11/07/2022 10:06 PM Latest Code Status on File Code Status Date Activated Date Inactivated Comments Full Code 11/04/2022 7:56 PM 11/07/2022 10:06 PM Question Answer Comments Full Code Order Discussed With: Patient Latest Code Status on File Code Status Date Activated Date Inactivated Comments Full Code 11/04/2022 7:56 PM 11/07/2022 10:06 PM Question Answer Comments Full Code Order Discussed With: Patient Latest Code Status on File Code Status Date Activated Date Inactivated Comments Full Code 11/04/2022 7:56 PM 11/07/2022 10:06 PM Question Answer Comments Full Code Order Discussed With: Patient Latest Code Status on File Code Status Date Activated Date Inactivated Comments Full Code 11/04/2022 7:56 PM 11/07/2022 10:06 PM Question Answer Comments Full Code Order Discussed With: Patient Advance Directive Response Recorded Date/ Time Advance Directives No March 11:18am Chief Complaint and Reason for Visit Chief Complaint positive cologuard Chief Complaint wheezing,cough Reason for Referral Specialty Diagnoses / Procedures Referred By Contac t Referred To Contact Neurosurgery Diagnoses Brain mass Procedures CONSULT TO NEUROSURGERY OFFICE/OUTPATIENT [facility] MDM 60-74 MINUTES Anshul Riggs MD [address] [place] [address] Referral ID Status Reason Start Date Expiration Date Visits Requested Visits Authorized [id number] Authorized PCP Requested Referral 08/03/2022 08/03/2023 1 1 Specialty Diagnoses / Procedures Referred By Contac t Referred To Contact Diagnoses Brain tumor (HCC) Procedures CT SIM PLANNING RADIATION ONCOLOGY THER RAD SIMULAJ-AIDED [place]ELD [place] [address] [place] [id number] Referral ID Status Reason Start Date Expiration Date Visits Requested Visits Authorized [id number] Pending Review PCP Requested Referral 08/24/2022 11/21/2022 1 1 Specialty Diagnoses / Procedures Referred By Contac t Referred To Contact CT IMAGING Diagnoses Glioblastoma multiforme (HCC) Procedures CT BRAIN WO IVCON CT HEAD/BRAIN W/O CONTRAST MATERIAL Jessica Cartagena PA-C [address] [place] [id number] [address] [facility] Referral ID Status Reason Start Date Expiration Date V isits Requested Visits Authorized [id number] Closed Auto-Generate d Referral 09/19/2022 10/19/2023 1 1 Specialty Diagnoses / Procedures Referred By Contac t Referred To Contact MR IMAGING Diagnoses Glioblastoma multiforme (HCC) Procedures MRI BRAIN WO/W IVCON MRI BRAIN BRAIN STEM W/O W/CONTRAST MATERIAL Anshul Riggs MD [address] [place] [address] Mr Imaging Referral ID Status Reason Start Date Expiration Date Visits Requested Visits Authorized [id number] Pending Review Auto-Generat ed Referral 11/16/2022 12/02/2023 1 1 Specialty Diagnoses / Procedures Referred By Contac t Referred To Contact Diagnoses Glioblastoma multiforme (HCC) Procedures CONSULT TO HOME HEALTH (OCS) Anshul Riggs MD [address] [place] [address] Referral ID Status Reason Start Date Expiration Date Visits Requested Visits Authorized [id number] Ref Not Required PCP Requested Referral 11/02/2022 01/31/2023 3 3 Referral ID Status Reason Start Date Expiration Date Visits Requested Visits Authorized [id number] Authorized Auto-Generat ed Referral 11/13/2022 12/13/2023 1 1 Specialty Diagnoses / Procedures Referred By Contac t Referred To Contact MR IMAGING Diagnoses Glioblastoma multiforme (HCC) Procedures MRI BRAIN WO/W IVCON MRI BRAIN BRAIN STEM W/O W/CONTRAST MATERIAL Jessica Cartagena PA-C [address] [place] [address] [place] [address] Mr Imaging Referral ID Status Reason Start Date Expiration Date Visits Requested Visits Authorized [id number] Authorized Auto-Generat ed Referral 02/08/2023 02/08/2024 1 1 Specialty Diagnoses / Procedures Referred By Contac t Referred To Contact MR IMAGING Diagnoses Glioblastoma multiforme (HCC) Procedures MRI BRAIN WO/W IVCON MRI BRAIN BRAIN STEM W/O W/CONTRAST MATERIAL Anshul Riggs MD [address] [place] [address] [place] [address] Referral ID Status Reason Start Date Expiration Date Visits Requested Visits Authorized [id number] Authorized Auto-Generat ed Referral 05/03/2024 1 1 Specialty Diagnoses / Procedures Referred By Contac t Referred To Contact MR IMAGING Diagnoses Glioblastoma multiforme (HCC) Procedures MRI BRAIN WO/W IVCON MRI BRAIN BRAIN STEM W/O W/CONTRAST MATERIAL Jessica Cartagena PA-C [address] [place] [address] [place] [address] [place] [address] Referral ID Status Reason Start Date Expiration Date V isits Requested Visits Authorized [id number] Closed Auto-Generate d Referral 02/08/2023 02/08/2024 1 1 Referral ID Status Reason Start Date Expiration Date V isits Requested Visits Authorized [id number] Closed Auto-Generate d Referral 05/04/2023 05/03/2024 1 1 Specialty Diagnoses / Procedures Referred By Contac t Referred To Contact MR IMAGING Diagnoses Glioblastoma (HCC) Procedures MRI BRAIN WO/W IVCON MRI BRAIN BRAIN STEM W/O W/CONTRAST MATERIAL Nitin Cr DO, PhD [address] [place] [id number] Mr [facility] [place] [address] Referral ID Status Reason Start Date Expiration Date Visits Requested Visits Authorized [id number] Pending Review Auto-Generat ed Referral 3 07/06/2024 1 1 Specialty Diagnoses / Procedures Referred By Contac t Referred To Contact MR IMAGING Diagnoses Glioblastoma (HCC) Procedures MRI BRAIN WO/W IVCON MRI BRAIN BRAIN STEM W/O W/CONTRAST MATERIAL Adolfo Martins MD, PhD [address] [place] [address] Mr Imaging [place] [address] Referral ID Status Reason Start Date Expiration Date Visits Requested Visits Authorized [id number] Pending Review Auto-Generat ed Referral 07/17/2024 1 1 Specialty Diagnoses / Procedures Referred By Contac t Referred To [facility] Diagnoses Glioblastoma (HCC) Procedures SPIROMETRY BASELINE ONLY SPMTRY W/VC EXPIRATORY FRANCIS W/WO MXML VOL VNTJ Adolfo Martins MD, PhD [address] [place] [address] [facility] [place] [address] [place] [address] Referral ID Status Reason Start Date Expiration Date Visits Requested Visits Authorized [id number] Pending Review Auto-Generat ed Referral 3 07/17/2024 1 1 Health Concerns Infection Onset Date Last Indicated Resolved Time COVID-19 Rule-Out 08/08/2022 08/08/2022 08/08/2022 3:40 AM EST Infection Onset Date Last Indicated Resolved Time COVID-19 Rule-Out 08/13/2022 08/13/2022 08/13/2022 4:23 PM EST Additional Source Comments INFORMATION SOURCE (unrecogn ized section and content) DATE CREATED AUTHOR 04/28/2021 [facility] DATE CREATED AUTHOR AUTHOR'S ORGANIZ ATION 08/03/2022 [facility] dical Specialist DATE CREATED AUTHOR AUTHOR'S ORGANIZ ATION 05/27/2023 [facility] DATE CREATED AUTHOR AUTHOR'S ORGANIZ ATION 07/20/2023 [facility] DATE CREATED AUTHOR AUTHOR'S ORGANIZ ATION 07/30/2023 [facility] Care Teams (unrecognized sec tion and content) Team Status: Inactive Member Role Status Dates Milvia Hinkle MD Primary Care Provider Active Anastacio Friedman DO Attending Provider Active Team Status: Active Member Role Status Dates iMlvia Hinkle MD Primary Care Provider Active Communications Operator Relationship Specialty Start Date End Date Milvia Hinkle [address] [place] [address] PCP - General Family Medicine 08/02/22 Communications Operator Relationship Specialty Start Date End Date Milvia Hinkle [address] [place] [address] PCP - General Family Medicine 08/02/22 Communications Operator Relationship Specialty Start Date End Date Milvia Hinkle [address] [place] [address] PCP - General Family Medicine 08/02/22 Communications Operator Relationship Specialty Start Date End Date Milvia Hinkle [address] [place] [address] PCP - General Family Medicine 08/02/22 Communications Operator Relationship Specialty Start Date End Date Milvia Hinkle [address] [place] [address] PCP - General Family Medicine 08/02/22 Communications Operator Relationship Specialty Start Date End Date Milvia Hinkle [address] [place] [address] PCP - General Family Medicine 08/02/22 Communications Operator Relationship Specialty Start Date End Date Milvia Hinkle [address] [place] [address] PCP - General Family Medicine 08/02/22 Communications Operator Relationship Specialty Start Date End Date Milvia Hinkle [address] [place] [address] PCP - General Family Medicine 08/02/22 Communications Operator Relationship Specialty Start Date End Date Milvia Hinkle [address] [place] [address] PCP - General Family Medicine 08/02/22 Communications Operator Relationship Specialty Start Date End Date Milvia Hinkle [address] [place] [address] PCP - General Family Medicine 08/02/22 Communications Operator Relationship Specialty Start Date End Date Milvia Hinkle [address] [place] [address] PCP - General Family Medicine 08/02/22 Communications Operator Relationship Specialty Start Date End Date Milvia Hinkle [address] [place] [address] PCP - General Family Medicine 08/02/22 Communications Operator Relationship Specialty Start Date End Date Milvia Hinkle [address] [place] [address] PCP - General Family Medicine 08/02/22 Communications Operator Relationship Specialty Start Date End Date Milvia Hinkle [address] [place] [address] PCP - General Family Medicine 08/02/22 Communications Operator Relationship Specialty Start Date End Date Milvia Hinkle [address] [place] [facility] [place] [address] PCP - General Family Medicine 08/02/22 Sherry Winchester, RN [address] [facility] [place] [address] Specialty Forestry Tree Pruner Hematology/Oncology 09/15/22 Anshul Riggs MD [address] [place] [address] Physician Hematology/Oncology 09/15/22 Jessica Cartagena, PACassidyC [address] [facility] [address] Physician Documentation Nurse Hematology/Oncology 09/15/22 Marian Spangler, TRAINING CONSULTANT Marketing Database Consultant 09/15/22 Communications Operator Relationship Specialty Start Date End Date Milvia Hinkle [address] [place] [facility] [place] [phone] PCP - General Family Medicine 08/02/22 Sherry Winchester, RN [address] [facility] [place] [address] Specialty Forestry Tree Pruner Hematology/Oncology 09/15/22 Anshul Riggs MD [address] [place] [address] Physician Hematology/Oncology 09/15/22 Jessica Cartagena, PA-C [address] [place] [address] Physician Documentation Nurse Hematology/Oncology 09/15/22 Marian Spangler, TRAINING CONSULTANT Marketing Database Consultant 09/15/22 Communications Operator Relationship Specialty Start Date End Date Milvia Hinkle [address] [place] [phone] PCP - General Family Medicine 08/02/22 Sherry Winchester, RN [address] [facility] [place] [address] Specialty Forestry Tree Pruner Hematology/Oncology 09/15/22 Anshul Riggs MD [address] [place] [address] Physician Hematology/Oncology 09/15/22 Jessica Cartagena, KIMC [address] [facility] [facility] [place] [address] Physician Documentation Nurse Hematology/Oncology 09/15/22 Marian Spangler, TRAINING CONSULTANT Marketing Database Consultant 09/15/22 Communications Operator Relationship Specialty Start Date End Date Milvia Hinkle [address] [place] [phone] PCP - General Family Medicine 08/02/22 Sherry Winchester, RN [address] [facility] [place] [address] Specialty Forestry Tree Pruner Hematology/Oncology 09/15/22 Anshul Riggs MD [address] [place] [address] Physician Hematology/Oncology 09/15/22 Jessica Cartagena PA-C [address] [facility] [place] [address] Physician Documentation Nurse Hematology/Oncology 09/15/22 Marian Spangler, TRAINING CONSULTANT Marketing Database Consultant 09/15/22 Communications Operator Relationship Specialty Start Date End Date Milvia Hinkle [address] [place] [address] [phone] PCP - General Family Medicine 08/02/22 Communications Operator Relationship Specialty Start Date End Date Milvia Hinkle [address] [place] [address] PCP - General Family Medicine 08/02/22 Sherry Winchester, RN [address] [facility] [place] [address] Specialty Forestry Tree Pruner Hematology/Oncology 09/15/22 Anshul Riggs MD [address] [place] [address] Physician Hematology/Oncology 09/15/22 Jessica Cartagena, STAS [address] [facility] [place] [address] Physician Documentation Nurse Hematology/Oncology 09/15/22 Marian Spangler, TRAINING CONSULTANT Marketing Database Consultant 09/15/22 Communications Operator Relationship Specialty Start Date End Date Milvia Hinkle [address] [place] [facility] [phone] PCP - General Family Medicine 08/02/22 Communications Operator Relationship Specialty Start Date End Date Milvia Hinkle [address] [place] [address] PCP - General Family Medicine 08/02/22 Sherry Winchester RN [address] [facility] [place] [address] Specialty Forestry Tree Pruner Hematology/Oncology 09/15/22 Anshul Riggs MD [address] [place] [address] Physician Hematology/Oncology 09/15/22 Jessica Cartagena PA-C [address] [facility] [place] [address] Physician Documentation Nurse Hematology/Oncology 09/15/22 Marian Spangler, TRAINING CONSULTANT Marketing Database Consultant 09/15/22 Communications Operator Relationship Specialty Start Date End Date Milvia Hinkle [address] [place] [address] PCP - General Family Medicine 08/02/22 Sherry Winchester, RN [address] [facility] [place] [address] Specialty Forestry Tree Pruner Hematology/Oncology 09/15/22 Anshul Riggs MD [address] [place] [address] Physician Hematology/Oncology 09/15/22 Jessica Cartagena, KIMC [address] [facility] [place] [address] Physician Documentation Nurse Hematology/Oncology 09/15/22 Marian Spangler, TRAINING CONSULTANT Marketing Database Consultant 09/15/22 Communications Operator Relationship Specialty Start Date End Date Milvia Hinkle [address] [place] [phone] PCP - General Family Medicine 08/02/22 Sherry Winchester RN [address] [facility] [place] [address] Specialty Forestry Tree Pruner Hematology/Oncology 09/15/22 Anshul Riggs MD [address] [place] [address] Physician Hematology/Oncology 09/15/22 Jessica Cartagena PA-C [address] [facility] [place] [address] Physician Documentation Nurse Hematology/Oncology 09/15/22 Marian Spangler, TRAINING CONSULTANT Marketing Database Consultant 09/15/22 Communications Operator Relationship Specialty Start Date End Date Milvia Hinkle [address] [place] [place] [address] [phone] - General Family Medicine 08/02/22 Sherry Winchester RN [address] [facility] [place] [address] Specialty Forestry Tree Pruner Hematology/Oncology 09/15/22 Anshul Riggs MD [address] [facility] [place] [address] Physician Hematology/Oncology 09/15/22 Jessica Cartagena PA-C [address] [facility] [place] [address] Physician Documentation Nurse Hematology/Oncology 09/15/22 Marian Spangler, TRAINING CONSULTANT Marketing Database Consultant 09/15/22 Communications Operator Relationship Specialty Start Date End Date Milvia Hinkle [address] [place] [phone] PCP - General Family Medicine 08/02/22 Sherry Winchester, RN [address] [facility] [place] [address] Specialty Forestry Tree Pruner Hematology/Oncology 09/15/22 Anshul Riggs MD [address] [facility] [place] [address] Physician Hematology/Oncology 09/15/22 Jessica Cartagena PA-C [address] [facility] [place] [address] Physician Documentation Nurse Hematology/Oncology 09/15/22 Marian Spangler, TRAINING CONSULTANT Marketing Database Consultant 09/15/22 Communications Operator Relationship Specialty Start Date End Date Milvia Hinkle [address] [place] [address] [phone] PCP - General Family Medicine 08/02/22 Sherry Winchester, RN [address] [facility] [place] [address] Specialty Forestry Tree Pruner Hematology/Oncology 09/15/22 Anshul Riggs MD [address] [facility] [place] [address] Physician Hematology/Oncology 09/15/22 Jessica Cartagena PA-C [address] [facility] [place] [address] Physician Documentation Nurse Hematology/Oncology 09/15/22 Marian Spangler, TRAINING CONSULTANT Marketing Database Consultant 09/15/22 Communications Operator Relationship Specialty Start Date End Date Milvia Hinkle [address] [place] [place] [address] PCP - General Family Medicine 08/02/22 Sherry Winchester, RN [address] [facility] [place] [address] Specialty Forestry Tree Pruner Hematology/Oncology 09/15/22 Anshul Riggs MD [address] [place] [address] Physician Hematology/Oncology 09/15/22 Jessica Cartagena PA-C [address] [facility] [place] [address] Physician Documentation Nurse Hematology/Oncology 09/15/22 Marian Spangler, [facility] Marketing Database Consultant 09/15/22 Communications Operator Relationship Specialty Start Date End Date Milvia Hinkle [address] [place] [address] [phone] PCP - General Family Medicine 08/02/22 Sherry Winchester, RN [address] [facility] [place] [address] Specialty Forestry Tree Pruner Hematology/Oncology 09/15/22 Anshul Riggs MD [address] [place] [facility] [place] [address] Physician Hematology/Oncology 09/15/22 Jessica Cartagena PA-C [address] [facility] [place] [address] Physician Documentation Nurse Hematology/Oncology 09/15/22 Marian Spangler LSW Marketing Database Consultant 09/15/22 Communications Operator Relationship Specialty Start Date End Date ArinMilvia delgado [address] [place] [facility] [place] [address] PCP - General Family Medicine 08/02/22 Sherry Winchester, RN [address] [facility] [address] [place] [address] [employer]ty [employer] Tree Pruner Hematology/Oncology 09/15/22 Anshul Riggs MD [address] [facility] [place] [address] Physician Hematology/Oncology 09/15/22 Jessica Cartagena, PA-C [address] [facility] [place] [address] Physician Documentation Nurse Hematology/Oncology 09/15/22 Marian Spangler TRAINING CONSULTANT Marketing Database Consultant 09/15/22 Communications Operator Relationship Specialty Start Date End Date Milvia Hinkle [address] [place] [facility] [place] [address] PCP - General Family Medicine 08/02/22 Sherry Winchester, RN [address] [facility] [place] [address] Specialty Forestry Tree Pruner Hematology/Oncology 09/15/22 Anshul Riggs MD [address] [place] [address] Physician Hematology/Oncology 09/15/22 Jessica Cartagena, PA-C [address] [facility] [place] [address] Physician Documentation Nurse Hematology/Oncology 09/15/22 Marian Spangler LSW Marketing Database Consultant 09/15/22 Communications Operator Relationship Specialty Start Date End Date Milvia Hinkle [address] [place] [facility] [place] [address] PCP - General Family Medicine 08/02/22 Sherry Winchester, RN [address] [facility] [place] [address] Specialty Forestry Tree Pruner Hematology/Oncology 09/15/22 Anshul Riggs MD [address] [facility] [place] [address] Physician Hematology/Oncology 09/15/22 Jessica Cartagena PA-C [address] [facility] [place] [address] Physician Documentation Nurse Hematology/Oncology 09/15/22 Marian Spangler LSW Marketing Database Consultant 09/15/22 Communications Operator Relationship Specialty Start Date End Date Milvia Hinkle [address] [place] [phone] PCP - General Family Medicine 08/02/22 Sherry Winchester RN [address] [facility] [place] [address] Specialty Forestry Tree Pruner Hematology/Oncology 09/15/22 Anshul Riggs MD [address] [place] [address] Physician Hematology/Oncology 09/15/22 Jessica Cartagena PA-C [address] [facility] [place] [address] Physician Documentation Nurse Hematology/Oncology 09/15/22 Marian Spangler LSW Marketing Database Consultant 09/15/22 Communications Operator Relationship Specialty Start Date End Date Milvia Hinkle [address] [place] [address] [phone] PCP - General Family Medicine 08/02/22 Sherry Winchester, RN [address] [facility] [place] [address] Specialty Forestry Tree Pruner Hematology/Oncology 09/15/22 Anshul Riggs MD [address] [place] [address] Physician Hematology/Oncology 09/15/22 Jessica Cartagena PA-C [address] [facility] [place] [address] Physician Documentation Nurse Hematology/Oncology 09/15/22 Marian Spangler, TRAINING CONSULTANT Marketing Database Consultant 09/15/22 Communications Operator Relationship Specialty Start Date End Date Milvia Hinkle [address] [place] [phone] PCP - General Family Medicine 08/02/22 Sherry Winchester, RN [address] [facility] [place] [address] Specialty Forestry Tree Pruner Hematology/Oncology 09/15/22 Anshul Riggs MD [address] [place] [address] Physician Hematology/Oncology 09/15/22 Jessica Cartagena PA-C [address] [facility] [place] [address] Physician Documentation Nurse Hematology/Oncology 09/15/22 Marian Spangler, TRAINING CONSULTANT Marketing Database Consultant 09/15/22 Communications Operator Relationship Specialty Start Date End Date Milvia Hinkle [address] [place] [address] [phone] PCP - General Family Medicine 08/02/22 Sherry Winchester, RN [address] [facility] [place] [address] Specialty Forestry Tree Pruner Hematology/Oncology 09/15/22 Anshul Riggs MD [address] [place] [address] Physician Hematology/Oncology 09/15/22 Jessica Cartagena PA-C [address] [facility] [place] [address] Physician Documentation Nurse Hematology/Oncology 09/15/22 Marian Spangler LSW Marketing Database Consultant 09/15/22 Communications Operator Relationship Specialty Start Date End Date ArinMilvia delgado Jenn [address] [place] [place] [address] PCP - General Family Medicine 08/02/22 Sherry Winchester, RN [address] [facility] [place] [address] Specialty Forestry Tree Pruner Hematology/Oncology 09/15/22 Anshul Riggs MD [address] [place] [address] Physician Hematology/Oncology 09/15/22 Jessica Cartagena, PA-C [address] [facility] [place] [address] Physician Documentation Nurse Hematology/Oncology 09/15/22 Marian Spangler LSW Marketing Database Consultant 09/15/22 Communications Operator Relationship Specialty Start Date End Date Milvia Hinkle [address] [place] [address] PCP - General Family Medicine 08/02/22 Sherry Winchester, DEREK [address] [facility] [place] [address] Specialty Forestry Tree Pruner Hematology/Oncology 09/15/22 Anshul Riggs MD [address] [place] [address] Physician Hematology/Oncology 09/15/22 Jessica Cartagean, PA-C [address] [facility] [place] [address] Physician Documentation Nurse Hematology/Oncology 09/15/22 Marian Spangler LSW Marketing Database Consultant 09/15/22 Communications Operator Relationship Specialty Start Date End Date Milvia Hinkle [address] [place] [address] PCP - General Family Medicine 08/02/22 Sherry Winchester, RN [address] [facility] [place] [address] Specialty Forestry Tree Pruner Hematology/Oncology 09/15/22 Anshul Riggs MD [address] [place] [address] Physician Hematology/Oncology 09/15/22 Jessica Cartagena, PA-C [address] [facility] [place] [address] Physician Documentation Nurse Hematology/Oncology 09/15/22 Marian Spangler, TRAINING CONSULTANT Marketing Database Consultant 09/15/22 Communications Operator Relationship Specialty Start Date End Date Milvia Hinkle [address] [place] [address] PCP - General Family Medicine 08/02/22 Sherry Winchester RN [address] [facility] [place] [address] Specialty Forestry Tree Pruner Hematology/Oncology 09/15/22 Anshul Riggs MD [address] [place] [address] Physician Hematology/Oncology 09/15/22 Jessica Cartagena, PACassidyC [address] [facility] [place] [address] Physician Documentation Nurse Hematology/Oncology 09/15/22 Marian Spangler, TRAINING CONSULTANT Marketing Database Consultant 09/15/22 Communications Operator Relationship Specialty Start Date End Date Milvia Hinkle [address] [place] [address] [phone] PCP - General Family Medicine 08/02/22 Sherry Winchester, RN [address] [facility] [place] [address] Specialty Forestry Tree Pruner Hematology/Oncology 09/15/22 Anshul Riggs MD [address] [place] [address] Physician Hematology/Oncology 09/15/22 Jessica Cartagena, PACassidyC [address] [facility] [place] [address] Physician Documentation Nurse Hematology/Oncology 09/15/22 Marian Spangler, TRAINING CONSULTANT Marketing Database Consultant 09/15/22 Communications Operator Relationship Specialty Start Date End Date Milvia Hinkle [address] [place] [address] PCP - General Family Medicine 08/02/22 Sherry Winchester RN [address] [facility] [place] [address] Specialty Forestry Tree Pruner Hematology/Oncology 09/15/22 Anshul Riggs MD [address] [place] [address] Physician Hematology/Oncology 09/15/22 Jessica Cartagena, PACassidyC [address] [facility] [place] [address] Physician Documentation Nurse Hematology/Oncology 09/15/22 Marian Spangler, TRAINING CONSULTANT Marketing Database Consultant 09/15/22 Communications Operator Relationship Specialty Start Date End Date Milvia Hinkle [address] [place] [address] [phone] PCP - General Family Medicine 08/02/22 Sherry Winchester RN [address] [facility] [place] [address] Specialty Forestry Tree Pruner Hematology/Oncology 09/15/22 Anshul Riggs MD [address] [place] [address] Physician Hematology/Oncology 09/15/22 Jessica Cartagena PA-C [address] [facility] [address] Physician Documentation Nurse Hematology/Oncology 09/15/22 Marian Spangler, TRAINING CONSULTANT Marketing Database Consultant 09/15/22 Communications Operator Relationship Specialty Start Date End Date ArinMilvia delgado Jenn [address] [place] [address] PCP - General Family Medicine 08/02/22 Sherry Winchester, RN [address] [facility] [place] [address] Specialty Forestry Tree Pruner Hematology/Oncology 09/15/22 Anshul Riggs MD [address] [place] [address] Physician Hematology/Oncology 09/15/22 Jessica Cartagena PA-C [address] [facility] [place] [address] Physician Documentation Nurse Hematology/Oncology 09/15/22 Marian Spangler, [facility] Marketing Database Consultant 09/15/22 Communications Operator Relationship Specialty Start Date End Date Milvia Hinkle [address] [place] [phone] PCP - General Family Medicine 08/02/22 Sherry Winchester, RN [address] [facility] [place] [address] Specialty Forestry Tree Pruner Hematology/Oncology 09/15/22 Anshul Riggs MD [address] [place] [facility] [place] [address] Physician Hematology/Oncology 09/15/22 Jessica Cartagena PA-C [address] [facility] [place] [address] Physician Documentation Nurse Hematology/Oncology 09/15/22 Marian Spangler, TRAINING CONSULTANT Marketing Database Consultant 09/15/22 Communications Operator Relationship Specialty Start Date End Date ArinMilvia delgado Jenn [address] [place] [address] PCP - General Family Medicine 08/02/22 Sherry Winchester, RN [address] [facility] [place] [address] Specialty Forestry Tree Pruner Hematology/Oncology 09/15/22 Anshul Riggs MD [address] [facility] [place] [address] Physician Hematology/Oncology 09/15/22 Jessica Cartagena, PA-C [address] [facility] [place] [address] Physician Documentation Nurse Hematology/Oncology 09/15/22 Marian Spangler, TRAINING CONSULTANT Marketing Database Consultant 09/15/22 Communications Operator Relationship Specialty Start Date End Date Milvia Hinkle [address] [place] [phone] PCP - General Family Medicine 08/02/22 Sherry Winchester, RN [address] [facility] [place] [address] Specialty Forestry Tree Pruner Hematology/Oncology 09/15/22 Anshul Riggs MD [address] [facility] [place] [address] Physician Hematology/Oncology 09/15/22 Jessica Cartagena, PA-C [address] [place] [address] Physician Documentation Nurse Hematology/Oncology 09/15/22 Marian Spangler, TRAINING CONSULTANT Marketing Database Consultant 09/15/22 Communications Operator Relationship Specialty Start Date End Date Milvia Hinkle [address] [place] [phone] PCP - General Family Medicine 08/02/22 Sherry Winchester, DEREK [address] [facility] [address] [place], [place] [address] Specialty Forestry Tree Pruner Hematology/Oncology 09/15/22 Anshul Riggs MD [address] [facility] [place] [address] Physician Hematology/Oncology 09/15/22 Jessica Cartagena, PA-C [address] [facility] [place] [address] Physician Documentation Nurse Hematology/Oncology 09/15/22 Marian Spangler, TRAINING CONSULTANT Marketing Database Consultant 09/15/22 Communications Operator Relationship Specialty Start Date End Date Milvia Hinkle [address] [facility] [place] [phone] PCP - General Family Medicine 08/02/22 Sherry Winchester RN [address] [facility] [place] [address] Specialty Forestry Tree Pruner Hematology/Oncology 09/15/22 Anshul Riggs MD [address] [facility] [place] [address] Physician Hematology/Oncology 09/15/22 Jessica Cartagena, PA-C [address] [facility] [place] [address] Physician Documentation Nurse Hematology/Oncology 09/15/22 Marian Spangler, TRAINING CONSULTANT Marketing Database Consultant 09/15/22 Communications Operator Relationship Specialty Start Date End Date Milvia Hinkle [address] [facility] [place] [address] PCP - General Family Medicine 08/02/22 Sherry Winchester RN [address] [facility] [place] [address] Specialty Forestry Tree Pruner Hematology/Oncology 09/15/22 Anshul Riggs MD [address] [facility] [place] [address] Physician Hematology/Oncology 09/15/22 Jessica Cartagena, KIMC [address] [place] [address] [place] [address] Physician Documentation Nurse Hematology/Oncology 09/15/22 Marian Spangler, TRAINING CONSULTANT Marketing Database Consultant 09/15/22 Communications Operator Relationship Specialty Start Date End Date Milvia Hinkle [address] [place] [address] PCP - General Family Medicine 08/02/22 Sherry Winchester RN [address] [facility] [place] [address] Specialty Forestry Tree Pruner Hematology/Oncology 09/15/22 Anshul Riggs MD [address] [facility] [place] [address] Physician Hematology/Oncology 09/15/22 Jessica Cartagena PA-C [address] [facility] [place] [address] Physician Documentation Nurse Hematology/Oncology 09/15/22 Marian Spangler, TRAINING CONSULTANT Marketing Database Consultant 09/15/22 Communications Operator Relationship Specialty Start Date End Date Milvia Hinkle [address] [place] [address] PCP - General Family Medicine 08/02/22 Sherry Winchester, RN [address] [facility] [place] [address] Specialty Forestry Tree Pruner Hematology/Oncology 09/15/22 Anshul Riggs MD [address] [facility] [place] [address] Physician Hematology/Oncology 09/15/22 Jessica Cartagena PA-C [address] [place] [address] [place] [address] Physician Documentation Nurse Hematology/Oncology 09/15/22 Marian Spangler, LI Marketing Database Consultant 09/15/22 Communications Operator Relationship Specialty Start Date End Date Milvia Hinkle [address] [place] [phone] PCP - General Family Medicine 08/02/22 Sherry Winchester RN [address] [facility] [place] [address] Specialty Forestry Tree Pruner Hematology/Oncology 09/15/22 Anshul Riggs MD [address] [place] [address] [place] [address] Physician Hematology/Oncology 09/15/22 Jessica Cartagena PA-C [address] [place] [address] [place] [address] Physician Documentation Nurse Hematology/Oncology 09/15/22 Marian Spangler, LI Marketing Database Consultant 09/15/22 Communications Operator Relationship Specialty Start Date End Date Milvia Hinkle [address] [place] [phone] PCP - General Family Medicine 08/02/22 Sherry Winchester RN [address] [facility] [place] [address] Specialty Forestry Tree Pruner Hematology/Oncology 09/15/22 Anshul Riggs MD [address] [facility] [place] [address] Physician Hematology/Oncology 09/15/22 Jessica Cartagena PA-C [address] [place] [address] [place] [address] Physician Documentation Nurse Hematology/Oncology 09/15/22 Marian Spangler, TRAINING CONSULTANT Marketing Database Consultant 09/15/22 Communications Operator Relationship Specialty Start Date End Date Milvia Hinkle [address] [place] [phone] PCP - General Family Medicine 08/02/22 Sherry Winchester RN [address] [facility] [place] [address] Specialty Forestry Tree Pruner Hematology/Oncology 09/15/22 Anshul Riggs MD [address] [place] [address] [place] [address] Physician Hematology/Oncology 09/15/22 Jessica Cartagena PA-C [address] [place] [address] [place] [address] Physician Documentation Nurse Hematology/Oncology 09/15/22 Marian Spangler LSW Marketing Database Consultant 09/15/22 Communications Operator Relationship Specialty Start Date End Date Milvia Hinkle [address] [facility] [place] [phone] PCP - General Family Medicine 08/02/22 Sherry Winchester RN [address] [facility] [place] [address] Specialty Forestry Tree Pruner Hematology/Oncology 09/15/22 Anshul Riggs MD [address] [place] [address] Physician Hematology/Oncology 09/15/22 Jessica Cartagena PA-C [address] [facility] [place] [address] Physician Documentation Nurse Hematology/Oncology 09/15/22 Marian Spangler, TRAINING CONSULTANT Marketing Database Consultant 09/15/22 Communications Operator Relationship Specialty Start Date End Date Milvia Hinkle [address] [facility] [place] [address] PCP - General Family Medicine 08/02/22 Sherry Winchester RN [address] [facility] [place] [address] Specialty Forestry Tree Pruner Hematology/Oncology 09/15/22 Anshul Riggs MD [address] [place] [address] Physician Hematology/Oncology 09/15/22 Jessica Cartagena PA-C [address] [facility] [place] [address] Physician Documentation Nurse Hematology/Oncology 09/15/22 Marian Spangler, TRAINING CONSULTANT Marketing Database Consultant 09/15/22 Communications Operator Relationship Specialty Start Date End Date Milvia Hinkle [address] [place] [address] PCP - General Family Medicine 08/02/22 Sherry Winchester RN [address] [facility] [place] [address] Specialty Forestry Tree Pruner Hematology/Oncology 09/15/22 Anshul Riggs MD [address] [facility] [place] [address] Physician Hematology/Oncology 09/15/22 Jessica Cartagena PA-C [address] [facility] [place] [address] Physician Documentation Nurse Hematology/Oncology 09/15/22 Marian Spangler, TRAINING CONSULTANT Marketing Database Consultant 09/15/22 Communications Operator Relationship Specialty Start Date End Date Milvia Hinkle [address] [place] [address] PCP - General Family Medicine 08/02/22 Sherry Winchester, RN [address] [place] [address] Specialty Forestry Tree Pruner Hematology/Oncology 09/15/22 Anshul Riggs MD [address] [facility] [place] [address] Physician Hematology/Oncology 09/15/22 Jessica Cartagena PA-C [address] [facility] [place] [address] Physician Documentation Nurse Hematology/Oncology 09/15/22 Marian Spangler, TRAINING CONSULTANT Marketing Database Consultant 09/15/22 Communications Operator Relationship Specialty Start Date End Date Milvia Hinkle [address] [place] [address] PCP - General Family Medicine 08/02/22 Sherry Winchester, RN [address] [place] [address] Specialty Forestry Tree Pruner Hematology/Oncology 09/15/22 Anshul Riggs MD [address] [place] [address] [place] [address] Physician Hematology/Oncology 09/15/22 Jessica Cartagena PA-C [address] [place] [address] [place] [address] Physician Documentation Nurse Hematology/Oncology 09/15/22 Marian Spangler, TRAINING CONSULTANT Marketing Database Consultant 09/15/22 Communications Operator Relationship Specialty Start Date End Date Milvia Hinkle [address] [facility] [place] [address] PCP - General Family Medicine 08/02/22 Sherry Winchester, RN [address] [facility] [place] [address] Specialty Forestry Tree Pruner Hematology/Oncology 09/15/22 Anshul Riggs MD [address] [place] [address] [place] [address] Physician Hematology/Oncology 09/15/22 Jessica Cartagena PA-C [address] [place] [address] [place] [address] Physician Documentation Nurse Hematology/Oncology 09/15/22 Marian Spangler, TRAINING CONSULTANT Marketing Database Consultant 09/15/22 Communications Operator Relationship Specialty Start Date End Date Milvia Hinkle [address] [facility] [place] [address] PCP - General Family Medicine 08/02/22 Sherry Winchester, RN [address] [facility] [place] [address] Specialty Forestry Tree Pruner Hematology/Oncology 09/15/22 Anshul Riggs MD [address] [place] [address] [place] [address] Physician Hematology/Oncology 09/15/22 Jessica Cartagena PA-C [address] [facility] [place] [address] Physician Documentation Nurse Hematology/Oncology 09/15/22 Marian Spangler, TRAINING CONSULTANT Marketing Database Consultant 09/15/22 Communications Operator Relationship Specialty Start Date End Date Milvia Hinkle [address] [place] [address] PCP - General Family Medicine 08/02/22 Sherry Winchester, RN [address] [facility] [place] [address] Specialty Forestry Tree Pruner Hematology/Oncology 09/15/22 Anshul Riggs MD [address] [place] [address] [place] [address] Physician Hematology/Oncology 09/15/22 Jessica Cartagena PA-C [address] [place] [address] [place] [address] Physician Documentation Nurse Hematology/Oncology 09/15/22 Marian Spangler, TRAINING CONSULTANT Marketing Database Consultant 09/15/22 Communications Operator Relationship Specialty Start Date End Date Milvia Hinkle [address] [place] [address] PCP - General Family Medicine 08/02/22 Sherry Winchester, RN [address] [facility] [place] [address] Specialty Forestry Tree Pruner Hematology/Oncology 09/15/22 Anshul Riggs MD [address] [place] [address] [place] [address] Physician Hematology/Oncology 09/15/22 Jessica Cartagena PA-C [address] [facility] [place] [address] Physician Documentation Nurse Hematology/Oncology 09/15/22 Marian Spangler, TRAINING CONSULTANT Marketing Database Consultant 09/15/22 Communications Operator Relationship Specialty Start Date End Date Milvia Hinkle Jenn [address] [place] [address] PCP - General Family Medicine 08/02/22 Sherry Winchester, RN [address] [facility] [place] [address] Specialty Forestry Tree Pruner Hematology/Oncology 09/15/22 Anshul Riggs MD [address] [place] [address] Physician Hematology/Oncology 09/15/22 Jessica Cartagena PA-C [address] [facility] [place] [address] Physician Documentation Nurse Hematology/Oncology 09/15/22 Marian Spangler, TRAINING CONSULTANT Marketing Database Consultant 09/15/22 Communications Operator Relationship Specialty Start Date End Date Milvia Hinkle [address] [place] [address] PCP - General Family Medicine 08/02/22 Sherry Winchester, RN [address] [facility] [place] [address] Specialty Forestry Tree Pruner Hematology/Oncology 09/15/22 Anshul Riggs MD [address] [facility] [place] [address] Physician Hematology/Oncology 09/15/22 Jessica Cartagena PA-C [address] [place] [address] Physician Documentation Nurse Hematology/Oncology 09/15/22 Marian Spangler, TRAINING CONSULTANT Marketing Database Consultant 09/15/22 [facility] Home Care [facility] 06/25/23 Communications Operator Relationship Specialty Start Date End Date Milvia Hinkle [address] [facility] [phone] PCP - General Family Medicine 08/02/22 Sherry Winchester, RN [address] [place] [address] Specialty Forestry Tree Pruner Hematology/Oncology 09/15/22 Anshul Riggs MD [address] [facility] [place] [place] [address] Physician Hematology/Oncology 09/15/22 Jessica Cartagena PA-C [address] [place] [address] Physician Documentation Nurse Hematology/Oncology 09/15/22 Marian Spangler LSW Marketing Database Consultant 09/15/22 [facility] Home Care Provider 06/25/23 Communications Operator Relationship Specialty Start Date End Date Milvia Hinkle [address] [facility] [place] [phone] PCP - General Family Medicine 08/02/22 Sherry Winchester, RN [address] [place] [address] [employer]ty [employer] Hematology/Oncology 09/15/22 Anshul Riggs MD [address] [place] [address] [place] [address] Physician Hematology/Oncology 09/15/22 Jessica Cartagena PA-C [address] [place] [address] [place] [address] Physician Documentation Nurse Hematology/Oncology 09/15/22 Marian Spangler LSW Marketing Database Consultant 09/15/22 [facility] Home Care Provider 06/25/23 Team Status: Active Member Role Status Dates Milvia Hinkle MD Primary Care Provide r Active Team Status: Inactive Member Role Status Dates Milvia Hinkle MD Primary Care Provide r Active Kayley Dimas APRN Emergency Provider Active Goals (unrecognized section and content) Goals may be documented in a n alternate sectionGoals may be documented in an alternate section Source Comments (unrecognize d section and content) In the event this informatio n is protected by the Federal Confidentiality of Alcohol and Drug Abuse Patient Records regulations: The Federal rules restrict any use of the information to criminally investigate or prosecute any alcohol or drug abuse patient.[facility]In the event this information is protected by the Federal Confidentiality of Alcohol and Drug Abuse Patient Records regulations: The Federal rules restrict any use of the information to criminally investigate or prosecute any alcohol or drug abuse patient.[facility] HospitalIn the event this information is protected by the Federal Confidentiality of Alcohol and Drug Abuse Patient Records regulations: The Federal rules restrict any use of the information to criminally investigate or prosecute any alcohol or drug abuse patient.[facility] HospitalIn the event this information is protected by the Federal Confidentiality of Alcohol and Drug Abuse Patient Records regulations: The Federal rules restrict any use of the information to criminally investigate or prosecute any alcohol or drug abuse patient.[facility] HospitalIn the event this information is protected by the Federal Confidentiality of Alcohol and Drug Abuse Patient Records regulations: The Federal rules restrict any use of the information to criminally investigate or prosecute any alcohol or drug abuse patient.[facility] HospitalIn the event this information is protected by the Federal Confidentiality of Alcohol and Drug Abuse Patient Records regulations: The Federal rules restrict any use of the information to criminally investigate or prosecute any alcohol or drug abuse patient.[facility] HospitalIn the event this information is protected by the Federal Confidentiality of Alcohol and Drug Abuse Patient Records regulations: The Federal rules restrict any use of the information to criminally investigate or prosecute any alcohol or drug abuse patient.[facility] HospitalIn the event this information is protected by the Federal Confidentiality of Alcohol and Drug Abuse Patient Records regulations: The Federal rules restrict any use of the information to criminally investigate or prosecute any alcohol or drug abuse patient.[facility] HospitalIn the event this information is protected by the Federal Confidentiality of Alcohol and Drug Abuse Patient Records regulations: The Federal rules restrict any use of the information to criminally investigate or prosecute any alcohol or drug abuse patient.[facility] HospitalIn the event this information is protected by the Federal Confidentiality of Alcohol and Drug Abuse Patient Records regulations: The Federal rules restrict any use of the information to criminally investigate or prosecute any alcohol or drug abuse patient.[facility] HospitalIn the event this information is protected by the Federal Confidentiality of Alcohol and Drug Abuse Patient Records regulations: The Federal rules restrict any use of the information to criminally investigate or prosecute any alcohol or drug abuse patient.[facility] HospitalIn the event this information is protected by the Federal Confidentiality of Alcohol and Drug Abuse Patient Records regulations: The Federal rules restrict any use of the information to criminally investigate or prosecute any alcohol or drug abuse patient.[facility] HospitalIn the event this information is protected by the Federal Confidentiality of Alcohol and Drug Abuse Patient Records regulations: The Federal rules restrict any use of the information to criminally investigate or prosecute any alcohol or drug abuse patient.[facility] HospitalIn the event this information is protected by the Federal Confidentiality of Alcohol and Drug Abuse Patient Records regulations: The Federal rules restrict any use of the information to criminally investigate or prosecute any alcohol or drug abuse patient.[facility] HospitalIn the event this information is protected by the Federal Confidentiality of Alcohol and Drug Abuse Patient Records regulations: The Federal rules restrict any use of the information to criminally investigate or prosecute any alcohol or drug abuse patient.[facility] HospitalIn the event this information is protected by the Federal Confidentiality of Alcohol and Drug Abuse Patient Records regulations: The Federal rules restrict any use of the information to criminally investigate or prosecute any alcohol or drug abuse patient.[facility] HospitalIn the event this information is protected by the Federal Confidentiality of Alcohol and Drug Abuse Patient Records regulations: The Federal rules restrict any use of the information to criminally investigate or prosecute any alcohol or drug abuse patient.[facility] HospitalIn the event this information is protected by the Federal Confidentiality of Alcohol and Drug Abuse Patient Records regulations: The Federal rules restrict any use of the information to criminally investigate or prosecute any alcohol or drug abuse patient.[facility] HospitalIn the event this information is protected by the Federal Confidentiality of Alcohol and Drug Abuse Patient Records regulations: The Federal rules restrict any use of the information to criminally investigate or prosecute any alcohol or drug abuse patient.[facility] HospitalIn the event this information is protected by the Federal Confidentiality of Alcohol and Drug Abuse Patient Records regulations: The Federal rules restrict any use of the information to criminally investigate or prosecute any alcohol or drug abuse patient.[facility] HospitalIn the event this information is protected by the Federal Confidentiality of Alcohol and Drug Abuse Patient Records regulations: The Federal rules restrict any use of the information to criminally investigate or prosecute any alcohol or drug abuse patient.[facility] HospitalIn the event this information is protected by the Federal Confidentiality of Alcohol and Drug Abuse Patient Records regulations: The Federal rules restrict any use of the information to criminally investigate or prosecute any alcohol or drug abuse patient.[facility] HospitalIn the event this information is protected by the Federal Confidentiality of Alcohol and Drug Abuse Patient Records regulations: The Federal rules restrict any use of the information to criminally investigate or prosecute any alcohol or drug abuse patient.[facility] HospitalIn the event this information is protected by the Federal Confidentiality of Alcohol and Drug Abuse Patient Records regulations: The Federal rules restrict any use of the information to criminally investigate or prosecute any alcohol or drug abuse patient.[facility] HospitalIn the event this information is protected by the Federal Confidentiality of Alcohol and Drug Abuse Patient Records regulations: The Federal rules restrict any use of the information to criminally investigate or prosecute any alcohol or drug abuse patient.[facility]In the event this information is protected by the Federal Confidentiality of Alcohol and Drug Abuse Patient Records regulations: The Federal rules restrict any use of the information to criminally investigate or prosecute any alcohol or drug abuse patient.[facility] HospitalIn the event this information is protected by the Federal Confidentiality of Alcohol and Drug Abuse Patient Records regulations: The Federal rules restrict any use of the information to criminally investigate or prosecute any alcohol or drug abuse patient.[facility] HospitalIn the event this information is protected by the Federal Confidentiality of Alcohol and Drug Abuse Patient Records regulations: The Federal rules restrict any use of the information to criminally investigate or prosecute any alcohol or drug abuse patient.[facility] HospitalIn the event this information is protected by the Federal Confidentiality of Alcohol and Drug Abuse Patient Records regulations: The Federal rules restrict any use of the information to criminally investigate or prosecute any alcohol or drug abuse patient.[facility] HospitalIn the event this information is protected by the Federal Confidentiality of Alcohol and Drug Abuse Patient Records regulations: The Federal rules restrict any use of the information to criminally investigate or prosecute any alcohol or drug abuse patient.[facility] HospitalIn the event this information is protected by the Federal Confidentiality of Alcohol and Drug Abuse Patient Records regulations: The Federal rules restrict any use of the information to criminally investigate or prosecute any alcohol or drug abuse patient.[facility] HospitalIn the event this information is protected by the Federal Confidentiality of Alcohol and Drug Abuse Patient Records regulations: The Federal rules restrict any use of the information to criminally investigate or prosecute any alcohol or drug abuse patient.[facility] HospitalIn the event this information is protected by the Federal Confidentiality of Alcohol and Drug Abuse Patient Records regulations: The Federal rules restrict any use of the information to criminally investigate or prosecute any alcohol or drug abuse patient.[facility] HospitalIn the event this information is protected by the Federal Confidentiality of Alcohol and Drug Abuse Patient Records regulations: The Federal rules restrict any use of the information to criminally investigate or prosecute any alcohol or drug abuse patient.[facility] HospitalIn the event this information is protected by the Federal Confidentiality of Alcohol and Drug Abuse Patient Records regulations: The Federal rules restrict any use of the information to criminally investigate or prosecute any alcohol or drug abuse patient.[facility] HospitalIn the event this information is protected by the Federal Confidentiality of Alcohol and Drug Abuse Patient Records regulations: The Federal rules restrict any use of the information to criminally investigate or prosecute any alcohol or drug abuse patient.[facility] HospitalIn the event this information is protected by the Federal Confidentiality of Alcohol and Drug Abuse Patient Records regulations: The Federal rules restrict any use of the information to criminally investigate or prosecute any alcohol or drug abuse patient.[facility] HospitalIn the event this information is protected by the Federal Confidentiality of Alcohol and Drug Abuse Patient Records regulations: The Federal rules restrict any use of the information to criminally investigate or prosecute any alcohol or drug abuse patient.[facility] HospitalIn the event this information is protected by the Federal Confidentiality of Alcohol and Drug Abuse Patient Records regulations: The Federal rules restrict any use of the information to criminally investigate or prosecute any alcohol or drug abuse patient.[facility] HospitalIn the event this information is protected by the Federal Confidentiality of Alcohol and Drug Abuse Patient Records regulations: The Federal rules restrict any use of the information to criminally investigate or prosecute any alcohol or drug abuse patient.[facility] HospitalIn the event this information is protected by the Federal Confidentiality of Alcohol and Drug Abuse Patient Records regulations: The Federal rules restrict any use of the information to criminally investigate or prosecute any alcohol or drug abuse patient.[facility] HospitalIn the event this information is protected by the Federal Confidentiality of Alcohol and Drug Abuse Patient Records regulations: The Federal rules restrict any use of the information to criminally investigate or prosecute any alcohol or drug abuse patient.[facility] HospitalIn the event this information is protected by the Federal Confidentiality of Alcohol and Drug Abuse Patient Records regulations: The Federal rules restrict any use of the information to criminally investigate or prosecute any alcohol or drug abuse patient.[facility] HospitalIn the event this information is protected by the Federal Confidentiality of Alcohol and Drug Abuse Patient Records regulations: The Federal rules restrict any use of the information to criminally investigate or prosecute any alcohol or drug abuse patient.[facility] HospitalIn the event this information is protected by the Federal Confidentiality of Alcohol and Drug Abuse Patient Records regulations: The Federal rules restrict any use of the information to criminally investigate or prosecute any alcohol or drug abuse patient.[facility] HospitalIn the event this information is protected by the Federal Confidentiality of Alcohol and Drug Abuse Patient Records regulations: The Federal rules restrict any use of the information to criminally investigate or prosecute any alcohol or drug abuse patient.[facility] HospitalIn the event this information is protected by the Federal Confidentiality of Alcohol and Drug Abuse Patient Records regulations: The Federal rules restrict any use of the information to criminally investigate or prosecute any alcohol or drug abuse patient.[facility] HospitalIn the event this information is protected by the Federal Confidentiality of Alcohol and Drug Abuse Patient Records regulations: The Federal rules restrict any use of the information to criminally investigate or prosecute any alcohol or drug abuse patient.[facility] HospitalIn the event this information is protected by the Federal Confidentiality of Alcohol and Drug Abuse Patient Records regulations: The Federal rules restrict any use of the information to criminally investigate or prosecute any alcohol or drug abuse patient.[facility] HospitalIn the event this information is protected by the Federal Confidentiality of Alcohol and Drug Abuse Patient Records regulations: The Federal rules restrict any use of the information to criminally investigate or prosecute any alcohol or drug abuse patient.[facility] HospitalIn the event this information is protected by the Federal Confidentiality of Alcohol and Drug Abuse Patient Records regulations: The Federal rules restrict any use of the information to criminally investigate or prosecute any alcohol or drug abuse patient.[facility] HospitalIn the event this information is protected by the Federal Confidentiality of Alcohol and Drug Abuse Patient Records regulations: The Federal rules restrict any use of the information to criminally investigate or prosecute any alcohol or drug abuse patient.[facility] HospitalIn the event this information is protected by the Federal Confidentiality of Alcohol and Drug Abuse Patient Records regulations: The Federal rules restrict any use of the information to criminally investigate or prosecute any alcohol or drug abuse patient.[facility] HospitalIn the event this information is protected by the Federal Confidentiality of Alcohol and Drug Abuse Patient Records regulations: The Federal rules restrict any use of the information to criminally investigate or prosecute any alcohol or drug abuse patient.[facility] HospitalIn the event this information is protected by the Federal Confidentiality of Alcohol and Drug Abuse Patient Records regulations: The Federal rules restrict any use of the information to criminally investigate or prosecute any alcohol or drug abuse patient.[facility] HospitalIn the event this information is protected by the Federal Confidentiality of Alcohol and Drug Abuse Patient Records regulations: The Federal rules restrict any use of the information to criminally investigate or prosecute any alcohol or drug abuse patient.[facility] HospitalIn the event this information is protected by the Federal Confidentiality of Alcohol and Drug Abuse Patient Records regulations: The Federal rules restrict any use of the information to criminally investigate or prosecute any alcohol or drug abuse patient.[facility] HospitalIn the event this information is protected by the Federal Confidentiality of Alcohol and Drug Abuse Patient Records regulations: The Federal rules restrict any use of the information to criminally investigate or prosecute any alcohol or drug abuse patient.[facility] HospitalIn the event this information is protected by the Federal Confidentiality of Alcohol and Drug Abuse Patient Records regulations: The Federal rules restrict any use of the information to criminally investigate or prosecute any alcohol or drug abuse patient.[facility] HospitalIn the event this information is protected by the Federal Confidentiality of Alcohol and Drug Abuse Patient Records regulations: The Federal rules restrict any use of the information to criminally investigate or prosecute any alcohol or drug abuse patient.[facility] HospitalIn the event this information is protected by the Federal Confidentiality of Alcohol and Drug Abuse Patient Records regulations: The Federal rules restrict any use of the information to criminally investigate or prosecute any alcohol or drug abuse patient.[facility] HospitalIn the event this information is protected by the Federal Confidentiality of Alcohol and Drug Abuse Patient Records regulations: The Federal rules restrict any use of the information to criminally investigate or prosecute any alcohol or drug abuse patient.[facility] HospitalIn the event this information is protected by the Federal Confidentiality of Alcohol and Drug Abuse Patient Records regulations: The Federal rules restrict any use of the information to criminally investigate or prosecute any alcohol or drug abuse patient.[facility] HospitalIn the event this information is protected by the Federal Confidentiality of Alcohol and Drug Abuse Patient Records regulations: The Federal rules restrict any use of the information to criminally investigate or prosecute any alcohol or drug abuse patient.[facility] HospitalIn the event this information is protected by the Federal Confidentiality of Alcohol and Drug Abuse Patient Records regulations: The Federal rules restrict any use of the information to criminally investigate or prosecute any alcohol or drug abuse patient.[facility] HospitalIn the event this information is protected by the Federal Confidentiality of Alcohol and Drug Abuse Patient Records regulations: The Federal rules restrict any use of the information to criminally investigate or prosecute any alcohol or drug abuse patient.[facility] HospitalIn the event this information is protected by the Federal Confidentiality of Alcohol and Drug Abuse Patient Records regulations: The Federal rules restrict any use of the information to criminally investigate or prosecute any alcohol or drug abuse patient.[facility] HospitalIn the event this information is protected by the Federal Confidentiality of Alcohol and Drug Abuse Patient Records regulations: The Federal rules restrict any use of the information to criminally investigate or prosecute any alcohol or drug abuse patient.[facility] HospitalIn the event this information is protected by the Federal Confidentiality of Alcohol and Drug Abuse Patient Records regulations: The Federal rules restrict any use of the information to criminally investigate or prosecute any alcohol or drug abuse patient.[facility] HospitalIn the event this information is protected by the Federal Confidentiality of Alcohol and Drug Abuse Patient Records regulations: The Federal rules restrict any use of the information to criminally investigate or prosecute any alcohol or drug abuse patient.[facility] HospitalIn the event this information is protected by the Federal Confidentiality of Alcohol and Drug Abuse Patient Records regulations: The Federal rules restrict any use of the information to criminally investigate or prosecute any alcohol or drug abuse patient.[facility] HospitalIn the event this information is protected by the Federal Confidentiality of Alcohol and Drug Abuse Patient Records regulations: The Federal rules restrict any use of the information to criminally investigate or prosecute any alcohol or drug abuse patient.[facility] HospitalIn the event this information is protected by the Federal Confidentiality of Alcohol and Drug Abuse Patient Records regulations: The Federal rules restrict any use of the information to criminally investigate or prosecute any alcohol or drug abuse patient.[facility] HospitalIn the event this information is protected by the Federal Confidentiality of Alcohol and Drug Abuse Patient Records regulations: The Federal rules restrict any use of the information to criminally investigate or prosecute any alcohol or drug abuse patient.[facility] HospitalIn the event this information is protected by the Federal Confidentiality of Alcohol and Drug Abuse Patient Records regulations: The Federal rules restrict any use of the information to criminally investigate or prosecute any alcohol or drug abuse patient.[facility]In the event this information is protected by the Federal Confidentiality of Alcohol and Drug Abuse Patient Records regulations: The Federal rules restrict any use of the information to criminally investigate or prosecute any alcohol or drug abuse patient.[facility] HospitalIn the event this information is protected by the Federal Confidentiality of Alcohol and Drug Abuse Patient Records regulations: The Federal rules restrict any use of the information to criminally investigate or prosecute any alcohol or drug abuse patient.[facility] HospitalIn the event this information is protected by the Federal Confidentiality of Alcohol and Drug Abuse Patient Records regulations: The Federal rules restrict any use of the information to criminally investigate or prosecute any alcohol or drug abuse patient.[facility] HospitalIn the event this information is protected by the Federal Confidentiality of Alcohol and Drug Abuse Patient Records regulations: The Federal rules restrict any use of the information to criminally investigate or prosecute any alcohol or drug abuse patient.[facility] HospitalIn the event this information is protected by the Federal Confidentiality of Alcohol and Drug Abuse Patient Records regulations: The Federal rules restrict any use of the information to criminally investigate or prosecute any alcohol or drug abuse patient.[facility] HospitalIn the event this information is protected by the Federal Confidentiality of Alcohol and Drug Abuse Patient Records regulations: The Federal rules restrict any use of the information to criminally investigate or prosecute any alcohol or drug abuse patient.[facility] HospitalIn the event this information is protected by the Federal Confidentiality of Alcohol and Drug Abuse Patient Records regulations: The Federal rules restrict any use of the information to criminally investigate or prosecute any alcohol or drug abuse patient.[facility] HospitalIn the event this information is protected by the Federal Confidentiality of Alcohol and Drug Abuse Patient Records regulations: The Federal rules restrict any use of the information to criminally investigate or prosecute any alcohol or drug abuse patient.[facility] HospitalIn the event this information is protected by the Federal Confidentiality of Alcohol and Drug Abuse Patient Records regulations: The Federal rules restrict any use of the information to criminally investigate or prosecute any alcohol or drug abuse patient.[facility] HospitalIn the event this information is protected by the Federal Confidentiality of Alcohol and Drug Abuse Patient Records regulations: The Federal rules restrict any use of the information to criminally investigate or prosecute any alcohol or drug abuse patient.[facility] HospitalIn the event this information is protected by the Federal Confidentiality of Alcohol and Drug Abuse Patient Records regulations: The Federal rules restrict any use of the information to criminally investigate or prosecute any alcohol or drug abuse patient.[facility] HospitalIn the event this information is protected by the Federal Confidentiality of Alcohol and Drug Abuse Patient Records regulations: The Federal rules restrict any use of the information to criminally investigate or prosecute any alcohol or drug abuse patient.[facility] HospitalIn the event this information is protected by the Federal Confidentiality of Alcohol and Drug Abuse Patient Records regulations: The Federal rules restrict any use of the information to criminally investigate or prosecute any alcohol or drug abuse patient.[facility] HospitalIn the event this information is protected by the Federal Confidentiality of Alcohol and Drug Abuse Patient Records regulations: The Federal rules restrict any use of the information to criminally investigate or prosecute any alcohol or drug abuse patient.[facility] Reason for Visit (unrecogniz ed section and content) Reason Comments Triage Internal Reason Comments Triage Internal Referral Reason Comments Care Coordination Neurosurgery JACQUE Reason Comments Care Coordination ER visit Reason Comments JACQUE post op Reason Onset Date Comments Simulation Request Form 08/23/2022 Reason Comments Appointment Reason Comments Patient Update Patient Question Reason Comments Glioblastoma New patient consult Reason Comments First Time Treatment Education Reason Comments Care Coordination Oral chemo Reason Comments Care Coordination C1D1 treatment follo w up call Reason Comments Care Coordination Med question Reason Comments Medication Update Updated meds per pat ient/family. Reason Comments Glioblastoma multiforme 1 week follow up Specialty Diagnoses / Procedures Referred By Anabela varma Referred To Contact NEUROSURGERY Diagnoses Brain mass Brain mass [G93.89] Procedures CRANIEC CRANIOSYNOSTOSIS FRONT/PARIET BONE FLAP CRANIOTOMY FRONTAL [facility] Rad [address] [place] [address] Referral ID Status Reason Start Date Expiration Date Visits Re quested Visits Authorized [id number] 1 Reason Comments Insurance Authorization Eliquis Reason Comments Radiotherapy On-treatment Visit Reason Comments Glioblastoma multiforme (HCC) Reason Comments Medication Question Reason Comments Care Coordination Medication question Reason Comments brain tumor Treatment visit Reason Comments Care Coordination Medication update Reason Comments glioblastoma multiforme Reason Onset Date Comments Refill Request 10/09/2022 Reason Comments Medication Authorization Eliquis appeal sent Reason Comments Patient Update Refill Request Reason Comments Brain Tumor Reason Comments glioblastoma multiforme Reason Comments Orders Reason Onset Date Comments Refill Request 10/24/2022 Reason Comments Care Coordination Equipment questions Reason Comments Glioblastoma multiforme (HCC) Reason Comments Care Coordination Physical therapy Reason Comments Care Coordination Hospital d/c follow up call Reason Comments Care Coordination Clinical update Reason Comments Glioblastoma multiforme Reason Onset Date Comments Refill Request 11/20/2022 Reason Comments glioblastoma Follow up Reason Comments [employer] - Other Reason Onset Date Comments Refill Request 12/25/2022 Reason Onset Date Comments Refill Request 01/09/2023 Reason Comments Glioblastoma multiforme 2 week follow up Reason Onset Date Comments Refill Request 01/18/2023 Reason Onset Date Comments Refill Request 03/07/2023 Reason Comments Medication Problem Reason Comments Refill Request Reason Onset Date Comments Refill Request 04/04/2023 Reason Comments Initial Consult Reason Comments Follow Up Reason Comments Anxiety Specialty Diagnoses / Procedures Referred By Contac t Referred To Contact Psychology / PSYCHOLOGY Diagnoses *Virtual - New Consult Procedures VIDEO PSYC/PSYL Anshul Brown MD [address] [place] [address] Diya Murry, PhD [address] [place] [address] Referral ID Status Reason Start Date Expiration Date V isits Requested Visits Authorized [id number] Pending Review 05/08/2023 08/06/2023 1 1 Specialty Diagnoses / Procedures Referred By Contac t Referred To Contact MR IMAGING Diagnoses Glioblastoma multiforme (HCC) Procedures MRI BRAIN WO/W IVCON MRI BRAIN BRAIN STEM W/O W/CONTRAST MATERIAL Jessica Cartagena PA-C [address] [place] [address] [place] [address] [place] [address] Referral ID Status Reason Start Date Expiration Date V isits Requested Visits Authorized [id number] Closed Auto-Generate d Referral 02/08/2023 02/08/2024 1 1 Specialty Diagnoses / Procedures Referred By Contac t Referred To Contact MR IMAGING Diagnoses Glioblastoma multiforme (HCC) Procedures MRI BRAIN WO/W IVCON MRI BRAIN BRAIN STEM W/O W/CONTRAST MATERIAL Anshul Riggs MD [address] [place] [address] [place] [address] Referral ID Status Reason Start Date Expiration Date V isits Requested Visits Authorized [id number] Closed Auto-Generate d Referral 05/04/2023 05/03/2024 1 1 Reason Comments Urgent 1-2 weeks Reason Comments New Patient Reason Onset Date Comments SPP Oral Oncology/hematology - Treatment Referra l 06/18/2023 [employer] Insurance Authorization 06/18/2023 No PA Ne eded Reason Comments Lomustine cycle #1 (90 mg/m2) Reason Comments Home Care Reason Comments Medication Assistance Gleostine PAP free drug application initiated FOR RECORDS PERTAINING TO PATIENTS WHO ARE OR HAVE BEEN ENROLLED IN A CHEMICAL DEPENDENCY/SUBSTANCEABUSE PROGRAM, SOME INFORMATION MAY BE OMITTED. This clinical summary was aggregated from multiple sources. Caution should be exercised in using it in the provision of clinical care. This summary normalizes information from multiple sources, and as a consequence, information in this document may materially change the coding, format and clinical context of patient data. In addition, data may be omitted in some cases. CLINICAL DECISIONS SHOULD BE BASED ON THE PRIMARY CLINICAL RECORDS. [employer] provides no warranty or guarantee of the accuracy or completeness of information in this document.
--- NOTE | 2023-07-31 03:03 | ED_ITS ---
HPI - URI/Sore Throat General Chief Complaint: Upper Respiratory Infection Stated Complaint: COUGH RSV Time Seen by Provider: 07/31/23 02:46 Source: patient History of Present Illness HPI Narrative: patient seen this past weekend and diagnosed with RSV. Returns this AM with worsening cough. No fever. cough is dry. history of glioblastoma . Receiving chemo. Has been on dexamethasone for one year. 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 Related Data Home Medications Medication Instructions Recorded Confirmed apixaban 5 mg tablet (Eliquis) 5 mg PO BID 07/28/23 07/31/23 citalopram 20 mg tablet 20 mg PO DAILY 07/28/23 07/31/23 dexamethasone 2 mg tablet 2 mg PO DAILY 07/28/23 07/31/23 famotidine 20 mg tablet 20 mg PO DAILY 07/28/23 07/31/23 furosemide 20 mg tablet 20 mg PO BID 07/28/23 07/31/23 hydrochlorothiazide 25 mg tablet 25 mg PO DAILY 07/28/23 07/28/23 lisinopril 10 mg tablet 10 mg PO DAILY 07/28/23 07/31/23 lomustine 40 mg capsule (Gleostine) 160 mg PO .COMPLEX 07/28/23 07/28/23 potassium chloride 20 mEq 20 meq PO BID 07/28/23 07/31/23 tablet,extended release(part/cryst) methylphenidate HCl 5 mg tablet mg 07/31/23 Allergies Allergy/AdvReac Type Severity Reaction Status Date / Time No Known Drug Allergies Allergy Verified 07/28/23 14:01 Review of Systems ROS Status of ROS 10 or more systems reviewed and unremark able except as noted in history and below PFSH PFSH Social History Smoking status: Never smoker Exam Constitutional Vital Signs, click to edit/add: Last Vital Signs Temp 99.1 F 07/31/23 02:40 Pulse 94 H 07/31/23 03:43 Resp 26 H 07/31/23 03:43 BP 124/80 07/31/23 03:16 Pulse Ox 96 07/31/23 03:43 O2 Del Method Nasal Cannula 07/31/23 03:43 O2 Flow Rate 2 07/31/23 03:43 Common normals: oriented x3 and well nourished (frequent dry cough) [facility] Common normals: normocephalic and head/scalp atraumatic Respiratory Auscultation: rales Cardio Common normals: regular rate and regular rhythm GI Common normals: Normal to inspection, nondistended, normoactive bowel sounds present, soft to palpation and non-tender Neuro [place] 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) Common normals: oriented x3 and CN's II-XII intact bilaterally Psych Appearance: grossly normal Course Vital Signs Vital signs: Vital Signs Temperature 99.1 F 07/31/23 02:40 Pulse Rate 94 H 07/31/23 02:40 Respiratory Rate 16 07/31/23 02:40 Blood Pressure 132/75 07/31/23 02:40 Pulse Oximetry 94 L 07/31/23 02:40 Oxygen Delivery Method Room Air 07/31/23 02:40 Temperature 99.1 F 07/31/23 02:40 Pulse Rate 94 H 07/31/23 03:43 Respiratory Rate 26 H 07/31/23 03:43 Blood Pressure 124/80 07/31/23 03:16 Pulse Oximetry 96 07/31/23 03:43 Oxygen Delivery Method Nasal Cannula 07/31/23 03:43 Oxygen Delivery Flow Rate 2 07/31/23 03:43 MDM - URI/Sore Throat MDM Narrative Medical decision making narrative: recently diagnosed with RSV 3 days ago. Now presents because family feels her cough is worse. coughing all night and now sleeping. using duoneb treatments at home without improvement. xray with finding of atelectasis. On exam she has crackles and wheezing. Treated with solumedrol and Duoneb. Continues to wheeze and cough. tropoinin and BNP WNL. discussed with the hospitalist and will plan obs admission Lab Data Labs: Lab Results 07/31/23 Range/Units 03:32 WBC 5.2 (4.0-11.0) 10^3/uL RBC 3.34 L (4.20-5.40) 10^6/uL Hgb 10.3 L (12.0-16.0) g/dL Hct 32.0 L (36.0-48.0) % MCV 95.8 (81.0-99.0) fL MCH 30.8 (26.7-34.0) pg MCHC 32.2 (29.9-35.2) g/dL RDW 14.2 (11.0-15.0) % Plt Count 75 L (150-450) 10^3/uL MPV 11.9 (9.5-13.5) fL Neut % (Auto) 88.4 H (43.0-75.0) % Lymph % (Auto) 3.5 L (20.5-60.0) % Kleberg % (Auto) 7.5 (1.7-12.0) % Eos % (Auto) 0.0 L (0.9-7.0) % Baso % (Auto) 0.2 (0.2-2.0) % Neut # (Auto) 4.6 (1.4-6.5) 10^3/uL Lymph # (Auto) 0.2 L (1.2-3.8) 10^3/uL Kleberg # (Auto) 0.4 (0.3-0.8) 10^3/uL Eos # (Auto) 0.0 (0.0-0.7) 10^3/uL Baso # (Auto) 0.0 (0.0-0.1) 10^3/uL Abs Immat Gran (auto) 0.02 (0.00-0.03) 10^3/uL Imm/Tot Granulo (auto) 0.4 (0.0-0.5) % Sodium 145 (136-145) mmol/L Potassium 3.6 (3.5-5.1) mmol/L Chloride 107 (98-107) mmol/L Carbon Dioxide 28.2 (21.0-32.0) mmol/L Anion Gap 13.4 BUN 35.0 H (7.0-18.0) mg/dL Creatinine 0.94 (0.55-1.02) mg/dL Est GFR ( Amer) >60 (>=60) Est GFR (Non-Af Amer) 57 L (>=60) BUN/Creatinine Ratio 37.2 Glucose 125 H (74-106) mg/dL Calcium 9.7 (8.5-10.1) mg/dL Troponin I High Sens 9.3 (4.0-51.3) pg/mL NT-Pro-B Natriuret Pep 921.0 (<=1800.0) pg/mL Discharge Plan Discharge Chief Complaint: Upper Respiratory Infection Clinical Impression: Acute bronchospasm, Respiratory syncytial virus (RSV) bronchiolitis Patient Disposition: Admitted as Observation
--- NOTE | 2023-07-31 03:05 | XR_ITS ---
The [address] [address] Patient Name: BRAD HANDY MRN: [id number] date: 1945 Sex: F Assigned Patient Location: ER Current Patient Location: ER Accession/Order Number: [id number] Exam Date: 07/31/2023 03:15 Report Date: 07/31/2023 04:15 At the request of: MILDRED PAUL Procedure: XR chest 1V EXAMINATION: XR chest 1V HISTORY: short of breath COMPARISON: XR chest 07/28/2023 FINDINGS: LUNGS: Mild haziness within medial right lung base. Persistent obscuration of left lateral lung base heart margin and diaphragm. VASCULATURE: No increased pulmonary vasculature. PLEURA: No pneumothorax, effusion, or pleural thickening. CARDIAC: No cardiomegaly or cardiac silhouette abnormality. MEDIASTINUM: No visible mass or adenopathy. BONES: No fracture or visible bone lesion. OTHER: Negative. XR/XR chest 1V IMPRESSION: 1. Trace amount of infiltrates versus atelectasis within medial right lung base/infrahilar region. 2. Prominent pericardial fat pad versus lingular infiltrates; unchanged. Electronically authenticated by: EVANGELINA MENDOZA Date: 07/31/2023 04:15
--- NOTE | 2023-07-31 03:05 | ECG_ITS ---
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
[2023-07-31] MEDS: METHYLPREDNISOLONE SOD SUCC PF 125 MG/2 ML VIAL IVP (03:15)
[2023-07-31] MEDS: IPRATROPIUM/ALBUTEROL SULFATE 3 ML AMPUL.NEB IH ×6 (03:32→23:25)
[2023-07-31 03:44] LABS: Basophils Percent Auto 0.2 % (0.2-2.0); Hemoglobin 10.3 g/dL (12.0-16.0); Immature Granulocytes Abs Auto 0.02 10^3/uL (0.00-0.03); Immature Granulocytes Pct Auto 0.4 % (0.0-0.5); Lymphocytes Absolute Auto 0.2 10^3/uL (1.2-3.8); Lymphocytes Percent Auto 3.5 % (20.5-60.0); Mean Corpuscular HGB Conc 32.2 g/dL (29.9-35.2); Mean Corpuscular Hemoglobin 30.8 pg (26.7-34.0); Mean Corpuscular Volume 95.8 fL (81.0-99.0); Mean Platelet Volume 11.9 fL (9.5-13.5); Monocytes Absolute Auto 0.4 10^3/uL (0.3-0.8); Monocytes Percent Auto 7.5 % (1.7-12.0); Neutrophils Absolute Auto 4.6 10^3/uL (1.4-6.5); Neutrophils Percent Auto 88.4 % (43.0-75.0); Platelet Count 75 10^3/uL (150-450); Red Blood Count 3.34 10^6/uL (4.20-5.40); Red Cell Distribution Width 14.2 % (11.0-15.0); White Blood Count 5.2 10^3/uL (4.0-11.0)
[2023-07-31 03:59] LABS: Anion Gap 13.4; BUN Creatinine Ratio 37.2; Calcium 9.7 mg/dL (8.5-10.1); Carbon Dioxide 28.2 mmol/L (21.0-32.0); Chloride 107 mmol/L (98-107); Estimated GFR (African America >60 (>=60); Estimated GFR (Non-African Ame 57 (>=60); Glucose 125 mg/dL (74-106); Potassium 3.6 mmol/L (3.5-5.1); Sodium 145 mmol/L (136-145); Troponin I High Sensitivity 9.3 pg/mL (4.0-51.3)
--- OUTSIDE RECORDS SUMMARY | 2023-07-31 05:33 | XMS_ITS | CCD ---
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 Name Role Phone RICH MEJÍA Attending Unavailable RICH MEJÍA Consulting Unavailable RICH MEJÍA Admitting Unavailable DR MILVIA HINKLE Primary Care Unavailable MD Milvia Hinkle Primary Care Provider DO Anastacio Friedman Attending Provider Milvia Hinkle Primary Care Provider Sherry Winchester RN Unavailable Anshul Riggs MD Unavailable Jessica Cartagena PA-C Unavailable [phone] Aníbal JEFFERSON, Marian Unavailable Unavailable Sherry Winchester RN Unavailable [phone] ANSHUL RIGGS Referring Unavailable MILVIA HINKLE Primary Care Unavailable MILVIA HINKLE Primary Care Unavailable JESSICA CARTAGENA Referring Unavailable MD Milvia Lynch Primary Care Pr ovider PAUL Dimas Emergency Provider [phone] Milvia Lynch Primary Care Un available Kayley [...] Attending Unavailable MILVIA HINKLE Primary Care Unavailable CHANDRAKNAT, MAX Referring Unavailable MILVIA HINKLE Primary Care [...] Care Unavailable MARQUIS, ROSE Consulting Unavailable MILVIA HINKLE [...] Attending Unavailable SERLETIS, DEMITRE Admitting Unavailable MILVIA HINLKE Primary Care Unavailable PUNEET BARKERAN Attending Unavailable [...] Care Unavailable MILVIA HINKLE Primary Care Unavailable NEVAFedeBRENNAMARTINA Attending Unavailable MILVIA HINKLE Primary Care Unavailable [...] [PANTOPRAZOLE] Drug Allergy 11-02-2022 Other: See Comments [facility] Medications Current Medications Medication Drug Class(es) Dates [...] 30 days. Take 2 tablets by mo [facility] twice daily with meals. Take as discussed. [...] on above: Take 1 capsule by mo [facility] twice daily as needed for constipation. docusate sodium 50 mg / sennosides, care home 8.6 mg oral tablet (10 sources) Start: [...] 30 days. Take 2 tablets by mo [facility] once daily for 30 days. ondansetron 8 [...] am for 30 days. polyethylene glycol 3350 [id number] mg powder for oral solution (11 sources) [...] Test Name Value Interpretation Reference Range Facility [facility] 07-27-2023 [facility] Normal [facility] CNPNon 07-24-2023 CNPN Normal [facility] CNPNon 07-20-2023 CNPN Normal [facility] Activated partial thrombopla stin time (aPTT) in platelet poor plasma by coagulation aOrdered By: Kayley Dimas on 07-18-2023 aPTT Coag (PPP) [Time] 31.0 s 25.1-36.5 [facility] Comment on above: A hematocrit value g reater than 55% may lead to inaccurate results in coagulation testing. Patients having hematocrit values >55% require a special collection tube for coagulation studies. Please contact the laboratory at [phone] for redraw instructions. Alanine aminotransferase [En zymatic activity/volume] in Serum or PlasmaOrdered By: PROVIDER TEMP on 07-18-2023 ALT [Catalytic activity/Vol] 7 U/L 7-52 [facility] Albumin [Mass/volume] in Ser um or Plasma by Bromocresol green (BCG) dye binding methoOrdered By: PROVIDER TEMP on 07-18-2023 Albumin BCG dye [Mass/Vol] 3.8 g/dL 3.5-5.7 [facility] Alkaline phosphatase [Enzyma tic activity/volume] in Serum or PlasmaOrdered By: PROVIDER TEMP on 07-18-2023 ALP [Catalytic activity/Vol] 67 U/L 34-104 [facility] Aspartate aminotransferase [ Enzymatic activity/volume] in Serum or PlasmaOrdered By: PROVIDER TEMP on 07-18-2023 AST [Catalytic activity/Vol] 7 U/L 13-39 [facility] Automated urine color determ inationOrdered By: Kayley Dimas on 07-18-2023 Color (U) Yellow Normal Yellow [facility] Comment on above: Order Comment: Name Collection Type:: Clean-Voided Midstream Performed By: #### U A #### [facility] [address] B-Type Natriuretic Peptideon 07-18-2023 Natriuretic peptide B (Bld) [Mass/Vol] 371.0 pg/mL High 5-100 [facility] Comment on above: Result Comment: PERF ORMED BY: [place] [address] PATHOLOGIST PROJECT MANAGEMENT ADVISOR CALIN HIDALGO M.D. Performed By: #### P TT, PT #### [facility] [address] Basophils Auto (Bld) [#/Vol] Ordered By: PROVIDER TEMP on 07-18-2023 Basophils (Bld) [#/Vol] 0.1 10*3/uL 0.0-0.2 [facility] Basophils/100 WBC Auto (Bld) Ordered By: PROVIDER TEMP on 07-18-2023 Basophils/100 WBC (Bld) 0.8 % . [facility] Bilirubin Test strip Ql (U)O rdered By: Kayley Dimas on 07-18-2023 Bilirubin Ql (U) Negative Negative [facility] Bilirubin.total [Mass/volume ] in Serum or PlasmaOrdered By: PROVIDER TEMP on 07-18-2023 Bilirubin [Mass/Vol] 0.5 mg/dL 0.3-1.0 [facility] CNPNon 07-18-2023 CNPN Normal [facility] COVID CepheidOrdered By: Himanshu Diaz on 07-18-2023 SARS-CoV-2 (COVID-19) Ab IA Ql Negative Negative [facility] Comment on above: This is a duplicate Cepheid Xpert Xpress CoV-2/Flu/RSV Plus RNA by RT-PCR result to be used for statistical tracking purpose only. SARS-CoV-2 (COVID-19) RNA JOAN+probe Ql (Unsp spec) [facility] COVID-19 / Flu A/B / RSV PCR [...] or Cepheid Disclaimer revoked sooner. PERFORMED BY: [facility] [address] [place] [address] PATHOLOGIST PROJECT MANAGEMENT ADVISOR CALIN HIDALGO M.D. Normal [facility] Comment on above: Performed By: #### C OVID19 FLU RSV, CEPHEID NEG #### [address] [address] [facility] Calcium [Mass/volume] in Ser um or PlasmaOrdered By: PROVIDER TEMP on 07-18-2023 Calcium [Mass/Vol] 8.9 mg/dL 8.6-10.3 [facility] Carbon dioxide, total [Moles /volume] in Serum or PlasmaOrdered By: PROVIDER TEMP on 07-18-2023 CO2 [Moles/Vol] 27.1 mmol/L 21.0-31.0 [facility] Cepheid COVID PCR Negativeon 07-18-2023 SARS-CoV-2 (COVID-19) RNA JOAN+probe Ql (Unsp spec) Negative Normal Negative [facility] Comment on above: Result Comment: This is a duplicate Cepheid Xpert Xpress CoV-2/Flu/RSV Plus RNA by RT-PCR result to be used for statistical tracking purpose only. PERFORMED BY: [place] [address] PATHOLOGIST PROJECT MANAGEMENT ADVISOR CALIN HIDALGO M.D. Performed By: #### C OVID19 FLU RSV, CEPHEID NEG #### [facility] [address] [place] [address] [place] Chloride [Moles/volume] in S jethro or PlasmaOrdered By: PROVIDER TEMP on 07-18-2023 Chloride [Moles/Vol] 106 mmol/L 98-107 [facility] Complete Blood Count Auto Di ffon 07-18-2023 Basophils (Bld) [#/Vol] 0.1 10*3/uL Normal 0.0-0.2 [facility] Comment on above: Result Comment: PERF ORMED BY: [facility] [address] [place] [address] PATHOLOGIST PROJECT MANAGEMENT ADVISOR CALIN HIDALGO M.D. Performed By: #### C MP, CBC, BNP, HS TROP #### [facility] [address] [place] [address] Basophils/100 WBC (Bld) 0.8 % Normal . [facility] Comment on above: Performed By: #### C MP, CBC, BNP, HS TROP #### [facility] [address] [place] [address] Eosinophils (Bld) [#/Vol] 0.0 10*3/uL Normal 0.0-0.45 [facility] Comment on above: Performed By: #### C MP, CBC, BNP, HS TROP #### [address] Eosinophils/100 WBC (Bld) 0.1 % Normal . [facility] Comment on above: Performed By: #### C MP, CBC, BNP, HS TROP #### [address] Erythrocyte distribution width (RBC) [Ratio] 14.6 % Normal 11.9-15.3 [facility] Comment on above: Performed By: #### C MP, CBC, BNP, HS TROP #### [address] Hematocrit (Bld) [Volume fraction] 31.4 % Low 34.0-46.4 [facility] Comment on above: Performed By: #### C MP, CBC, BNP, HS TROP #### [place] [address] [place] Hemoglobin (Bld) [Mass/Vol] 10.8 g/dL Low 11.8-15.4 [facility] Comment on above: Performed By: #### C MP, CBC, BNP, HS TROP #### [facility] [address] [place] [address] [place] Lymphocytes (Bld) [#/Vol] 0.1 10*3/uL Low 1.00-4.8 [facility] Comment on above: Performed By: #### C MP, CBC, BNP, HS TROP #### [place] [address] [place] Lymphocytes/100 WBC (Bld) 0.9 % Normal . [facility] Comment on above: Performed By: #### C MP, CBC, BNP, HS TROP #### [address] MCH (RBC) [Entitic mass] 31.5 pg Normal 24.7-34.3 [facility] Comment on above: Performed By: #### C MP, CBC, BNP, HS TROP #### [address] MCV (RBC) [Entitic vol] 91.5 fL Normal 80-100 [facility] Comment on above: Performed By: #### C MP, CBC, BNP, HS TROP #### [address] Mean Corpuscular HGB Conc 34.4 g/dL Normal 32.0-35.0 [facility] Comment on above: Performed By: #### C MP, CBC, BNP, HS TROP #### [address] Monocytes (Bld) [#/Vol] 0.2 10*3/uL Normal 0.0-0.8 [facility] Comment on above: Performed By: #### C MP, CBC, BNP, HS TROP #### [address] Monocytes/100 WBC (Bld) 26.85 % High 0.00-20.00 [facility] Comment on above: Result Comment: For adults in ED, MDW > 20.0 may be associated with a higher risk of sepsis during the first 12 hrs of hospital admission Performed By: #### C MP, CBC, BNP, HS TROP #### [place] [address] [place] Monocytes/100 WBC (Bld) 1.7 % Normal . [facility] Comment on above: Performed By: #### C MP, CBC, BNP, HS TROP #### [address] Neutrophils (Bld) [#/Vol] 10.4 10*3/uL High 1.8-7.7 [facility] Comment on above: Performed By: #### C MP, CBC, BNP, HS TROP #### [address] Neutrophils/100 WBC (Bld) 96.5 % Normal . [facility] Comment on above: Performed By: #### C MP, CBC, BNP, HS TROP #### [address] NRBC% 0.0 /100{WBC} Normal 0-0.5 [facility] Comment on above: Performed By: #### C MP, CBC, BNP, HS TROP #### [address] Platelet mean volume (Bld) [Entitic vol] 8.8 fL Normal 6.3-10.7 [facility] Comment on above: Performed By: #### C MP, CBC, BNP, HS TROP #### [address] Platelets (Bld) [#/Vol] 140 10*3/uL Low 150-450 [facility] Comment on above: Performed By: #### C MP, CBC, BNP, HS TROP #### [address] RBC (Bld) [#/Vol] 3.43 10*6/uL Low 3.60-5.00 [facility] Comment on above: Performed By: #### C MP, CBC, BNP, HS TROP #### [address] WBC (Bld) [#/Vol] 10.8 10*3/uL Normal 3.8-11.6 [facility] Comment on above: Performed By: #### C MP, CBC, BNP, HS TROP #### [address] Comprehensive Metabolic Pane noelle 07-18-2023 Albumin [Mass/Vol] 3.8 g/dL Normal 3.5-5.7 [facility] Comment on above: Performed By: #### C MP, CBC, BNP, HS TROP #### [facility] [address] Albumin/Globulin [Mass ratio] 1.4 {ratio} Normal [facility] Comment on above: Performed By: #### C MP, CBC, BNP, HS TROP #### [facility] [address] ALP [Catalytic activity/Vol] 67 U/L Normal 34-104 [facility] Comment on above: Performed By: #### C MP, CBC, BNP, HS TROP #### [facility] [address] ALT [Catalytic activity/Vol] 7 U/L Normal 7-52 [facility] Comment on above: Performed By: #### C MP, CBC, BNP, HS TROP #### [facility] [address] [place] [address] Anion gap [Moles/Vol] 12.9 mmol/L Normal 6.0-15.0 [facility] Comment on above: Performed By: #### C MP, CBC, BNP, HS TROP #### [facility] [address] [place] [address] [place] AST [Catalytic activity/Vol] 7 U/L Low 13-39 [facility] Comment on above: Performed By: #### C MP, CBC, BNP, HS TROP #### [facility] [address] [place] [address] [place] Bilirubin [Mass/Vol] 0.5 mg/dL Normal 0.3-1.0 [facility] Comment on above: Performed By: #### C MP, CBC, BNP, HS TROP #### [facility] [address] [place] [address] [place] Calcium [Mass/Vol] 8.9 mg/dL Normal 8.6-10.3 [facility] Comment on above: Performed By: #### C MP, CBC, BNP, HS TROP #### [facility] [address] [place] [address] [place] Chloride [Moles/Vol] 106 mmol/L Normal 98-107 [facility] Comment on above: Performed By: #### C MP, CBC, BNP, HS TROP #### [address] CO2 [Moles/Vol] 27.1 mmol/L Normal 21.0-31.0 [facility] Comment on above: Performed By: #### C MP, CBC, BNP, HS TROP #### [address] Creatinine [Mass/Vol] 0.61 mg/dL Normal 0.60-1.[address] [facility] Comment on above: Performed By: #### C MP, CBC, BNP, HS TROP #### [address] Creatinine Clr Calc Pharmacy 53.96 [facility] Comment on above: Result Comment: PERF ORMED BY: [place] [address] PATHOLOGIST PROJECT MANAGEMENT ADVISOR CALIN HIDALGO M.D. Performed By: #### C MP, CBC, BNP, HS TROP #### [address] GFR/1.73 sq M.predicted MDRD (S/P/Bld) [Vol rate/Area] mL/min/{1.73_m2} [facility] Comment on above: Performed By: #### C MP, CBC, BNP, HS TROP #### [address] Globulin (S) [Mass/Vol] 2.7 g/dL Normal [facility] Comment on above: Performed By: #### C MP, CBC, BNP, HS TROP #### [address] Glucose [Mass/Vol] 135 mg/dL High 70-100 [facility] Comment on above: Result Comment: [place] Glucose Reference Range is dependent on time and content of last meal. Glucose of more than 200 mg/dL in a nonstressed, ambulatory subject supports the diagnosis of Diabetes Mellitus. ADA recommended reference range Performed By: #### C MP, CBC, BNP, HS TROP #### [facility] [address] Potassium [Moles/Vol] 3.0 mmol/L Low 3.5-5.[address] [facility] Comment on above: Performed By: #### C MP, CBC, BNP, HS TROP #### [facility] [address] Protein [Mass/Vol] 6.5 g/dL Normal 6.4-8.9 [facility] Comment on above: Performed By: #### C MP, CBC, BNP, HS TROP #### [facility] [address] Sodium [Moles/Vol] 143 mmol/L Normal 136-145 [facility] Comment on above: Performed By: #### C MP, CBC, BNP, HS TROP #### [address] Urea nitrogen [Mass/Vol] 22 mg/dL Normal 7-25 [facility] Comment on above: Performed By: #### C MP, CBC, BNP, HS TROP #### [address] Creatinine [Mass/volume] in Serum or PlasmaOrdered By: PROVIDER TEMP on 07-18-2023 Creatinine [Mass/Vol] 0.61 mg/dL 0.60-1.[address] [facility] ECG 12 lead ECGon 07-18-2023 ECG 12 lead ECG [facility] [place] [address] Electrocardiograph Report Signed Patient: Marilin Mae MR#: [id number] : 1945 Acct:[id number] Age/Sex: 78 / F ADM Date: 07/18/23 Loc: ER Room: Type: [facility] ER Attending Dr: Ordering Provider: [...] : 476 ms Sinus rhythm with short DC Confirmed by Terrance DUENAS DO ([id number]) on 07/19/2023 6:11:13 AM Referred By: Electronically Signed By:Terrance DUENAS DO Transcribed By: MUS Signed By Terrance Duenas DO 1 09/19/22 0611 Normal [facility] Eosinophils Auto (Bld) [#/Vo l]Ordered By: PROVIDER TEMP on 07-18-2023 Eosinophils (Bld) [#/Vol] 0.0 10*3/uL 0.0-0.45 [facility] Eosinophils/100 WBC Auto (Bl d)Ordered By: PROVIDER TEMP on 07-18-2023 Eosinophils/100 WBC (Bld) 0.1 % . [facility] Erythrocyte distribution wid th Auto (RBC) [Ratio]Ordered By: PROVIDER TEMP on 07-18-2023 Erythrocyte distribution width (RBC) [Ratio] 14.6 % 11.9-15.3 [facility] Fecal occult blood detection by immunochemistryOrdered By: Kayley Dimas on 07-18-2023 Hemoglobin.gastrointest inal Ql (Stl) [facility] Globulin Calc (S) [Mass/Vol] Ordered By: PROVIDER TEMP on 07-18-2023 Globulin (S) [Mass/Vol] 2.7 g/dL [facility] Glucose [Mass/volume] in Ser um or PlasmaOrdered By: PROVIDER TEMP on 07-18-2023 Glucose [Mass/Vol] 135 mg/dL 70-100 [facility] Comment on above: ADA recommended refe rence rangeRandom Glucose Reference Range is dependent on time and content of last meal. Glucose of more than 200 mg/dL in a nonstressed, ambulatory subject supports the diagnosis of Diabetes Mellitus. Hematocrit Auto (Bld) [Volum e fraction]Ordered By: PROVIDER TEMP on 07-18-2023 Hematocrit (Bld) [Volume fraction] 31.4 % 34.0-46.4 [facility] Hemoglobin [Mass/volume] in BloodOrdered By: PROVIDER TEMP on 07-18-2023 Hemoglobin (Bld) [Mass/Vol] 10.8 g/dL 11.8-15.4 [facility] INR in Platelet poor plasma by Coagulation assayOrdered By: Kayley Dimas on 07-18-2023 INR Coag (PPP) [Relative time] 1.5 {INR} [facility] Comment on above: INR Therapeutic Rang e [...] 07-18-2023 Ketones (U) [Mass/Vol] Negative Negative [facility] [place] Leukocytes [#/volume] correc bradly for nucleated erythrocytes in Blood by Automated counOrdered By: PROVIDER TEMP on 07-18-2023 WBC corrected for nucl RBC Auto (Bld) [#/Vol] 10.8 10*3/uL 3.8-11.6 [facility] Lymphocytes Auto (Bld) [#/Vo l]Ordered By: PROVIDER TEMP on 07-18-2023 Lymphocytes (Bld) [#/Vol] 0.1 10*3/uL 1.00-4.8 [facility] Lymphocytes/100 WBC Auto (Bl d)Ordered By: PROVIDER TEMP on 07-18-2023 Lymphocytes/100 WBC (Bld) 0.9 % . [facility] MCH Auto (RBC) [Entitic mass ]Ordered By: PROVIDER TEMP on 07-18-2023 MCH (RBC) [Entitic mass] 31.5 pg 24.7-34.3 [facility] MCHC Auto (RBC) [Mass/Vol]Or dered By: PROVIDER TEMP on 07-18-2023 MCHC (RBC) [Mass/Vol] 34.4 g/dL 32.0-35.[address] [facility] MCV Auto (RBC) [Entitic vol] Ordered By: PROVIDER TEMP on 07-18-2023 MCV (RBC) [Entitic vol] 91.5 fL 80-100 [facility] Monocyte distribution width [Entitic volume] in Blood by AutomatedOrdered By: PROVIDER TEMP on 07-18-2023 Monocyte distribution width Auto (Bld) [Entitic vol] 26.85 % 0.00-20.00 [facility] Comment on above: For adults in ED, MD W > 20.0 may be associated with a higher risk of sepsis during the first 12 hrs of hospital admission Monocytes Auto (Bld) [#/Vol] Ordered By: PROVIDER TEMP on 07-18-2023 Monocytes (Bld) [#/Vol] 0.2 10*3/uL 0.0-0.8 [facility] Monocytes/100 WBC Auto (Bld) Ordered By: PROVIDER TEMP on 07-18-2023 Monocytes/100 WBC (Bld) 1.7 % . F [facility] Natriuretic peptide B [Mass/ Vol]Ordered By: PROVIDER TEMP on 07-18-2023 Natriuretic peptide B (Bld) [Mass/Vol] 371.0 pg/mL 5-100 [facility] Neutrophils Auto (Bld) [#/Vo l]Ordered By: PROVIDER TEMP on 07-18-2023 Neutrophils (Bld) [#/Vol] 10.4 10*3/uL 1.8-7.7 [facility] Neutrophils/100 WBC Auto (Bl d)Ordered By: PROVIDER TEMP on 07-18-2023 Neutrophils/100 WBC (Bld) 96.5 % . [facility] Nitrite Test strip Ql (U)Ord ered By: Kayley Dimas on 07-18-2023 Nitrite Ql (U) Negative Negative [facility] No Panel InformationOrdered By: PROVIDER TEMP on 07-18-2023 Estimated GFR (CKD-EPI) > 60.0 mL/Min [facility] Creatinine Clearance (Chem 53.96 [facility] Nucleated erythrocytes [Pres ence] in Blood by Automated countOrdered By: PROVIDER TEMP on 07-18-2023 Nucleated RBC Auto Ql (Bld) 0.0 /100{WBC} 0-0.5 [facility] Partial Thromboplastin Timeo n 07-18-2023 aPTT Coag (Bld) [Time] 31.0 s Normal 25.1-36.5 [facility] Comment on above: Result Comment: A he matocrit value greater than 55% may lead to inaccurate results in coagulation testing. Patients having hematocrit values >55% require a special collection tube for coagulation studies. Please contact the laboratory at [phone] for redraw instructions. PERFORMED BY: [place] [address] PATHOLOGIST PROJECT MANAGEMENT ADVISOR CALIN HIDALGO M.D. Performed By: #### P TT, PT #### [address] Platelet mean volume Auto (B ld) [Entitic vol]Ordered By: PROVIDER TEMP on 07-18-2023 Platelet mean volume (Bld) [Entitic vol] 8.8 fL 6.3-10.7 [facility] Platelets Auto (Bld) [#/Vol] Ordered By: PROVIDER TEMP on 07-18-2023 Platelets (Bld) [#/Vol] 140 10*3/uL 150-450 [facility] Potassium [Moles/volume] in Serum or PlasmaOrdered By: PROVIDER TEMP on 07-18-2023 Potassium [Moles/Vol] 3.0 mmol/L 3.5-5.[address] [facility] Protein Auto test strip (U) [Mass/Vol]Ordered By: Kayley Dimas on 07-18-2023 Protein (U) [Mass/Vol] Negative Negative [facility] Protein [Mass/volume] in Ser um or PlasmaOrdered By: PROVIDER TEMP on 07-18-2023 Protein [Mass/Vol] 6.5 g/dL 6.4-8.9 [facility] Prothrombin Time INRon 07-18 INR Coag (PPP) [Relative time] 1.5 {INR} Normal [facility] Comment on above: Result Comment: INR Therapeutic [...] Performed By: #### P TT, PT #### [facility] [address] [place] [id number] [facility] PT Coag (PPP) [Time] 17.6 s High 9.0-12.9 [facility] Comment on above: Result Comment: A he matocrit value greater than 55% may lead to inaccurate results in coagulation testing. Patients having hematocrit values >55% require a special collection tube for coagulation studies. Please contact the laboratory at [phone] for redraw instructions. Performed By: #### P TT, PT #### [facility] [address] [place] [address] [facility] Prothrombin time (PT)Ordered By: Kayley Dimas on 07-18-2023 PT Coag (PPP) [Time] 17.6 s 9.0-12.9 [facility] Comment on above: A hematocrit value g reater than 55% may lead to inaccurate results in coagulation testing. Patients having hematocrit values >55% require a special collection tube for coagulation studies. Please contact the laboratory at [phone] for redraw instructions. RBC Auto (Bld) [#/Vol]Ordere d By: PROVIDER TEMP on 07-18-2023 RBC (Bld) [#/Vol] 3.43 10*6/uL 3.60-5.00 [facility] Serum or plasma albumin/glob ulin mass ratioOrdered By: PROVIDER TEMP on 07-18-2023 Albumin/Globulin [Mass ratio] 1.4 {ratio} [facility] Serum or plasma anion gap de terminationOrdered By: PROVIDER TEMP on 07-18-2023 Anion gap [Moles/Vol] 12.9 mmol/L 6.0-15.0 [facility] Sodium [Moles/volume] in Ser um or PlasmaOrdered By: PROVIDER TEMP on 07-18-2023 Sodium [Moles/Vol] 143 mmol/L 136-145 [facility] Specific gravity Auto test s trip (U) [Rel density]Ordered By: Kayley Dimas on 07-18-2023 Specific gravity (U) [Rel density] 1.015 1.001-1.03 0 [facility] Stool Occult Blood (Guaiac)o n 07-18-2023 Stool Occult Blood (Guaiac) Occult Blood Negative for Occult Blood by Guaiac Methodology -- Reference range = Negative PERFORMED BY: [place] [address] PATHOLOGIST PROJECT MANAGEMENT ADVISOR CALIN HIDALGO M.D. Normal [facility] Comment on above: Performed By: #### O B(GUAIAC) #### [facility] [address] [place] [address] [place] Troponin I High Sensitivityo n 07-18-2023 Troponin I High Sensitivity 7.3 pg/mL Normal 0.0-15.0 [facility] [facility] Comment on above: Result Comment: PERF ORMED BY: [place] [address] PATHOLOGIST PROJECT MANAGEMENT ADVISOR CALIN HIDALGO M.D. Performed By: #### P TT, PT #### [facility] [address] [place] [address] Troponin I.cardiac [Mass/vol ume] in Serum or Plasma by Detection limit <= 0.01 ng/Ordered By: PROVIDER TEMP on 07-18-2023 Troponin I.cardiac DL <= 0.01 ng/mL [Mass/Vol] 7.3 pg/mL 0.0-15.0 [facility] Urea nitrogen [Mass/volume] in Serum or PlasmaOrdered By: PROVIDER TEMP on 07-18-2023 Urea nitrogen [Mass/Vol] 22 mg/dL 02-13 [facility] Urinalysison 07-18-2023 Appearance (U) Clear Normal Clear [facility] Comment on above: Order Comment: Name Collection Type:: Clean-Voided Midstream Performed By: #### U A #### [facility] [address] [place] [address] [place] Bilirubin,Urine Negative Normal Negative [facility] Comment on above: Order Comment: Name Collection Type:: Clean-Voided Midstream Performed By: #### U A #### [address] Glucose Ql (U) Normal Normal Normal [facility] Comment on above: Order Comment: Name Collection Type:: Clean-Voided Midstream Performed By: #### U A #### [address] Ketones Ql (U) Negative Normal Negative [facility] Comment on above: Order Comment: Name Collection Type:: Clean-Voided Midstream Performed By: #### U A #### [address] Leukocyte esterase Test strip Ql (U) Negative Normal Negative [facility] Comment on above: Order Comment: Name Collection Type:: Clean-Voided Midstream Performed By: #### U A #### [facility] [address] [place] [address] [place] Nitrite,Urine Negative Normal Negative [facility] Comment on above: Order Comment: Name Collection Type:: Clean-Voided Midstream Performed By: #### U A #### [facility] [address] [place] [address] Occult Blood,Urine Negative Normal Negative [facility] Comment on above: Order Comment: Name Collection Type:: Clean-Voided Midstream Result Comment: PERF ORMED BY: [place] [address] PATHOLOGIST PROJECT MANAGEMENT ADVISOR CALIN HIDALGO M.D. Performed By: #### U A #### [place] [address] [place] Protein,Urine Negative Normal Negative [facility] Comment on above: Order Comment: Name Collection Type:: Clean-Voided Midstream Performed By: #### U A #### [facility] [address] [place] [address] [place] Specificy [place],Urine 1.015 Normal 1.00 1-1.03 0 [facility] Comment on above: Order Comment: Name Collection Type:: Clean-Voided Midstream Performed By: #### U A #### [place] [id number] [facility] Urobilinogen,Urine Normal Normal Normal [facility] Comment on above: Order Comment: Name Collection Type:: Clean-Voided Midstream Performed By: #### U A #### [place] [id number] [facility] Urine clarity by refractomet ry automatedOrdered By: Kayley Dimas on 07-18-2023 Clarity Refractometry automated (U) Clear Clear [facility] Urine glucose measurement by automated test strip (mass/volume)Ordered By: Kayley Dimas on 07-18-2023 Glucose Auto test strip (U) [Mass/Vol] Normal mg/dL Normal [facility] Urine hemoglobin detection b y automated test stripOrdered By: Kayley Dimas on 07-18-2023 Hemoglobin Auto test strip Ql (U) Negative Negative [facility] Urine leukocyte esterase det ection by automated test stripOrdered By: Kayley Dimas on 07-18-2023 Leukocyte esterase Auto test strip Ql (U) Negative Negative [facility] Urine pH measurement by auto mated test stripOrdered By: Kayley Dimas on 07-18-2023 pH (U) 6.0 [pH] Normal 5.0-9.0 [facility] Comment on above: Order Comment: Name Collection Type:: Clean-Voided Midstream Performed By: #### U A #### [place] [id number] [facility] Urobilinogen Auto test strip (U) [Mass/Vol]Ordered By: Kayley Dimas on 07-18-2023 Urobilinogen (U) [Mass/Vol] Normal mg/dL Normal [facility] WBC Auto (Bld) [#/Vol]Ordere d By: AARON TEMP on 07-18-2023 WBC (Bld) [#/Vol] 10.8 10*3/uL 3.8-11.6 [facility] XR chest 2V*on 07-18-2023 XR chest 2V* [facility] Main [place] [address] [place], [place] [id number] XRay Report Signed Patient: Marilin Mae MR#: [id number] : 1945 Acct:[id number] Age/Sex: 78 / F ADM Date: 07/18/23 [...] Keshav Monsivais M.D.07/18/2023 4:26 PM Dictation Location: [place] [address] Transcribed By: [facility] 07/18/231625 Dictated By: Keshav Monsivais DO 07/18/231624 Signed By: 07/18/231625 [facility] CBC W Auto Differential pane l (Bld)on 07-17-2023 Basophils (Bld) [#/Vol] 10*3/uL Normal <0.11 [facility] Comment on above: Order Comment: Speci men Type: BLOOD SPECIMENOrdering Facility: [facility] Address: [address] [place] [address] Performed By: #### 5 7021-8 ####[facility] LABCLIA [id number] [place] [address] Basophils/100 WBC (Bld) 0.1 % Normal [facility] Comment on above: Order Comment: Speci men Type: BLOOD SPECIMENOrdering Facility: [facility] Address: [address] [place] [address] Performed By: #### 5 7021-8 ####[facility] LABCLIA [id number] [place] [address] Differential cell count method Nom (Bld) Auto Normal [facility] Comment on above: Order Comment: Speci men Type: BLOOD SPECIMENOrdering Facility: [facility] Address: [address] [place] [address] Performed By: #### 5 7021-8 ####[facility] LABCLIA [id number] [place] [address] Eosinophils (Bld) [#/Vol] 10*3/uL Normal <0.46 [facility] Comment on above: Order Comment: Speci men Type: BLOOD SPECIMENOrdering Facility: [facility] Address: [address] [place] [address] Performed By: #### 5 7021-8 ####[facility] LABCLIA [id number] [place] [address] Eosinophils/100 WBC (Bld) 0.1 % Normal [facility] Comment on above: Order Comment: Speci men Type: BLOOD SPECIMENOrdering Facility: [facility] Address: [address] [place] [address] Performed By: #### 5 7021-8 ####[facility] LABCLIA [id number] [place] [address] Erythrocyte distribution width (RBC) [Ratio] 13.8 % Normal 11.5-15.0 [facility] Comment on above: Order Comment: Speci men Type: BLOOD SPECIMENOrdering Facility: [facility] Address: [address] [place] [address] Performed By: #### 5 7021-8 ####[facility] LABCLIA [id number] [place] [address] Hematocrit (Bld) [Volume fraction] 33.4 % Low 36.0-46.0 [facility] Comment on above: Order Comment: Speci men Type: BLOOD SPECIMENOrdering Facility: [facility] Address: [address] [place] [address] Performed By: #### 5 7021-8 ####[facility] LABCLIA [id number] [place] [address] Hemoglobin (Bld) [Mass/Vol] 10.9 g/dL Low 11.5-15.5 [facility] Comment on above: Order Comment: Speci men Type: BLOOD SPECIMENOrdering Facility: [facility] Address: [address] [place] [address] Performed By: #### 5 7021-8 ####[facility] LABCLIA [id number] [place] [address] Immature granulocytes (Bld) [#/Vol] 0.05 10*3/uL Normal <0.10 [facility] Comment on above: Order Comment: Speci men Type: BLOOD SPECIMENOrdering Facility: [facility] Address: [address] [place] [address] Performed By: #### 5 7021-8 ####[facility] LABCLIA [id number] [place] [address] Immature granulocytes/100 WBC (Bld) 0.6 % Normal [facility] Comment on above: Order Comment: Speci men Type: BLOOD SPECIMENOrdering Facility: [facility] Address: [address] [place] [address] Performed By: #### 5 7021-8 ####[facility] LABCLIA [id number] [place] [address] Lymphocytes (Bld) [#/Vol] 0.48 10*3/uL Low 1.00-4.00 [facility] Comment on above: Order Comment: Speci men Type: BLOOD SPECIMENOrdering Facility: [facility] Address: [address] [place] [address] Performed By: #### 5 7021-8 ####[facility] LABCLIA [id number] [place] [address] Lymphocytes/100 WBC (Bld) 5.4 % Normal [facility] Comment on above: Order Comment: Speci men Type: BLOOD SPECIMENOrdering Facility: [facility] Address: [address] [place] [address] Performed By: #### 5 7021-8 ####[facility] LABCLIA [id number] [place] [address] MCH (RBC) [Entitic mass] 30.8 pg Normal 26.0-34.0 [facility] Comment on above: Order Comment: Speci men Type: BLOOD SPECIMENOrdering Facility: [facility] Address: [address] [place] [address] Performed By: #### 5 7021-8 ####[facility] LABIA [id number] [place] [address] MCHC (RBC) [Mass/Vol] 32.6 g/dL Normal 30.5-36.0 [facility] Comment on above: Order Comment: Speci men Type: BLOOD SPECIMENOrdering Facility: [facility] Address: [address] [place] [address] Performed By: #### 5 7021-8 ####[facility] LABCLIA [id number] [place] [address] MCV (RBC) [Entitic vol] 94.4 fL Normal 80.0-100.0 [facility] Comment on above: Order Comment: Speci men Type: BLOOD SPECIMENOrdering Facility: [facility] Address: [address] [place] [address] Performed By: #### 5 7021-8 ####[facility] LABIA [id number] [place] [address] Monocytes (Bld) [#/Vol] 0.51 10*3/uL Normal <0.87 [facility] Comment on above: Order Comment: Speci men Type: BLOOD SPECIMENOrdering Facility: [facility] Address: [address] [place] [address] Performed By: #### 5 7021-8 ####[facility] LABCLIA [id number] [place] [address] Monocytes/100 WBC (Bld) 5.8 % Normal [facility] Comment on above: Order Comment: Speci men Type: BLOOD SPECIMENOrdering Facility: [facility] Address: [address] [place] [address] Performed By: #### 5 7021-8 ####[facility] LABCLIA [id number] [place] [address] Neutrophils (Bld) [#/Vol] 7.75 10*3/uL High 1.45-7.50 [facility] Comment on above: Order Comment: Speci men Type: BLOOD SPECIMENOrdering Facility: [facility] Address: [address] [place] [address] Performed By: #### 5 7021-8 ####[facility] LABCLIA [id number] [place] [address] Neutrophils/100 WBC (Bld) 88.0 % Normal [facility] Comment on above: Order Comment: Speci men Type: BLOOD SPECIMENOrdering Facility: [facility] Address: [address] [place] [address] Performed By: #### 5 7021-8 ####[facility] LABCLIA [id number] [place] [address] Nucleated RBC (Bld) [#/Vol] 10*3/uL Normal <0.01 [facility] Comment on above: Order Comment: Speci men Type: BLOOD SPECIMENOrdering Facility: [facility] Address: [address] [place] [address] Performed By: #### 5 7021-8 ####[facility] LABCLIA [id number] [place] [address] Nucleated RBC/100 WBC (Bld) [Ratio] 0.0 /100 WBC Normal [facility] Comment on above: Order Comment: Speci men Type: BLOOD SPECIMENOrdering Facility: [facility] Address: [address] [place] [address] Performed By: #### 5 7021-8 ####[facility] LABCLIA [id number] [place] [address] Platelet mean volume (Bld) [Entitic vol] 10.4 fL Normal 9.0-12.7 [facility] Comment on above: Order Comment: Speci men Type: BLOOD SPECIMENOrdering Facility: [facility] Address: [address] [place] [address] Performed By: #### 5 7021-8 ####[facility] LABCLIA [id number] [place] [address] Platelets (Bld) [#/Vol] 127 10*3/uL Low 150-400 [facility] Comment on above: Order Comment: Speci men Type: BLOOD SPECIMENOrdering Facility: [facility] Address: [address] [place] [address] Performed By: #### 5 7021-8 ####[facility] LABCLIA [id number] [place] [address] RBC (Bld) [#/Vol] 3.54 10*6/uL Low 3.90-5.20 [facility] Comment on above: Order Comment: Speci men Type: BLOOD SPECIMENOrdering Facility: [facility] Address: [address] [place] [address] Performed By: #### 5 7021-8 ####[facility] LABCLIA [id number] [place] [address] WBC (Bld) [#/Vol] 8.81 10*3/uL Normal 3.70-11.00 [facility] Comment on above: Order Comment: Speci men Type: BLOOD SPECIMENOrdering Facility: [facility] Address: [address] [place] [address] Performed By: #### 5 7021-8 ####[facility] LABCLIA [id number] [place] [address] CNPNon 07-17-2023 CNPN Normal [facility] metabolic 2000 panelon 07-17-2023 Albumin [Mass/Vol] 3.7 g/dL Low 3.9-4.9 [facility] Comment on above: Order Comment: Speci men Type: BLOOD SPECIMENOrdering Facility: [facility] Address: [address] [place] [address] Performed By: #### 2 4323-8 ####[facility] LABCLIA [id number] [place] [address] ALP [Catalytic activity/Vol] 65 U/L Normal 34-123 [facility] Comment on above: Order Comment: Speci men Type: BLOOD SPECIMENOrdering Facility: [facility] Address: [address] [place] [address] Performed By: #### 2 4323-8 ####[facility] LABCLIA [id number] [place] [address] ALT [Catalytic activity/Vol] 7 U/L Normal 7-38 [facility] Comment on above: Order Comment: Speci men Type: BLOOD SPECIMENOrdering Facility: [facility] Address: [address] [place] [address] Performed By: #### 2 4323-8 ####[facility] LABCLIA [id number] [place] [address] Anion gap [Moles/Vol] 15 mmol/L Normal 9-18 [facility] Comment on above: Order Comment: Speci men Type: BLOOD SPECIMENOrdering Facility: [facility] Address: [address] [place] [address] Performed By: #### 2 4323-8 ####[facility] LABCLIA [id number] [place] [address] AST [Catalytic activity/Vol] 7 U/L Low 13-35 [facility] Comment on above: Order Comment: Speci men Type: BLOOD SPECIMENOrdering Facility: [facility] Address: [address] [place] [address] Performed By: #### 2 4323-8 ####[facility] LABCLIA [id number] [place] [address] Bilirubin [Mass/Vol] 0.3 mg/dL Normal 0.2-1.3 [facility] Comment on above: Order Comment: Speci men Type: BLOOD SPECIMENOrdering Facility: [facility] Address: [address] [place] [address] Performed By: #### 2 4323-8 ####[facility] LABCLIA [id number] [place] [address] Calcium [Mass/Vol] 9.5 mg/dL Normal 8.5-10.2 [facility] Comment on above: Order Comment: Speci men Type: BLOOD SPECIMENOrdering Facility: [facility] Address: [address] [place] [address] Performed By: #### 2 4323-8 ####[facility] LABCLIA [id number] [place] [address] Chloride [Moles/Vol] 104 mmol/L Normal 97-105 [facility] Comment on above: Order Comment: Speci men Type: BLOOD SPECIMENOrdering Facility: [facility] Address: [address] [place] [address] Performed By: #### 2 4323-8 ####[facility] LABCLIA [id number] [place] [address] CO2 [Moles/Vol] 24 mmol/L Normal 22-30 [facility] Comment on above: Order Comment: Speci men Type: BLOOD SPECIMENOrdering Facility: [facility] Address: [address] [place] [address] Performed By: #### 2 4323-8 ####[facility] LABCLIA [id number] [place] [address] Creatinine [Mass/Vol] 0.67 mg/dL Normal 0.58-0.96 [facility] Comment on above: Order Comment: Kurt barraza Type: BLOOD SPECIMENOrdering Facility: [facility] Address: [address] [place] [id number] Performed By: #### 2 4323-8 ####[facility] LABCLIA [id number] [place] [address] Creatinine and Glomerular filtration rate.predicted panel (S/P/Bld) 88 mL/min/1.73m??? Normal >=60 [facility] Comment on above: Order Comment: Kurt barraza Type: BLOOD SPECIMENOrdering Facility: [facility] Address: [address] [place] [address] Result Comment: Kim mated Glomerular Filtration Rate [...] actual GFR. Performed By: #### 2 4323-8 ####[facility] LABCLIA [id number] [place] [address] Glucose [Mass/Vol] 96 mg/dL Normal 74-99 [facility] Comment on above: Order Comment: Kurt barraza Type: BLOOD SPECIMENOrdering Facility: [facility] Address: [address] [place] [address] Result Comment: The [place] [employer] (ADA) provides guidance for cutoff [...] Standards of Medical Care in Diabetes 2016, [place] [employer]. Diabetes Care. 2016.39(Suppl 1). Performed By: #### 2 4323-8 ####[facility] LABCLIA [id number] [place] [address] Potassium [Moles/Vol] 2.5 mmol/L Low 3.7-5.1 [facility] Comment on above: Order Comment: Speci men Type: BLOOD SPECIMENOrdering Facility: [facility] Address: [address] [place] [address] Performed By: #### 2 4323-8 ####[facility] LABCLIA [id number] [place] [address] Protein [Mass/Vol] 6.2 g/dL Low 6.3-8.0 [facility] Comment on above: Order Comment: Speci men Type: BLOOD SPECIMENOrdering Facility: [facility] Address: [address] [place] [address] Performed By: #### 2 4323-8 ####[facility] LABCLIA [id number] [place] [address] Sodium [Moles/Vol] 143 mmol/L Normal 136-144 [facility] Comment on above: Order Comment: Speci men Type: BLOOD SPECIMENOrdering Facility: [facility] Address: [address] [place] [address] Performed By: #### 2 4323-8 ####[facility] LABCLIA [id number] [place] [address] Urea nitrogen [Mass/Vol] 23 mg/dL High 7-21 [facility] Comment on above: Order Comment: Speci men Type: BLOOD SPECIMENOrdering Facility: [facility] Address: [address] [place] [address] Performed By: #### 2 4323-8 ####[facility] LABCLIA [id number] [place] [address] CBC W Auto Differential pane l (Bld)on 07-10-2023 Basophils (Bld) [#/Vol] 10*3/uL Normal <0.11 [facility] Comment on above: Order Comment: Speci men Type: BLOOD SPECIMENOrdering Facility: [facility] Address: [address] [place] [address] Performed By: #### 5 7021-8 ####[facility] LABCLIA [id number] [place] [address] Basophils/100 WBC (Bld) 0.3 % Normal [facility] Comment on above: Order Comment: Speci men Type: BLOOD SPECIMENOrdering Facility: [facility] Address: [address] [place] [address] Performed By: #### 5 7021-8 ####[facility] LABCLIA [id number] [place] [address] Differential cell count method Nom (Bld) Auto Normal [facility] Comment on above: Order Comment: Speci men Type: BLOOD SPECIMENOrdering Facility: [facility] Address: [address] [place] [address] Performed By: #### 5 7021-8 ####[facility] LABCLIA [id number] [place] [address] Eosinophils (Bld) [#/Vol] 10*3/uL Normal <0.46 [facility] Comment on above: Order Comment: Speci men Type: BLOOD SPECIMENOrdering Facility: [facility] Address: [address] [place] [address] Performed By: #### 5 7021-8 ####[facility] LABCLIA [id number] [place] [address] Eosinophils/100 WBC (Bld) 0.0 % Normal [facility] Comment on above: Order Comment: Speci men Type: BLOOD SPECIMENOrdering Facility: [facility] Address: [address] [place] [address] Performed By: #### 5 7021-8 ####[facility] LABCLIA [id number] [place] [address] Erythrocyte distribution width (RBC) [Ratio] 14.4 % Normal 11.5-15.0 [facility] Comment on above: Order Comment: Speci men Type: BLOOD SPECIMENOrdering Facility: [facility] Address: [address] [place] [address] Performed By: #### 5 7021-8 ####[facility] LABCLIA [id number] [place] [address] Hematocrit (Bld) [Volume fraction] 35.9 % Low 36.0-46.0 [facility] Comment on above: Order Comment: Speci men Type: BLOOD SPECIMENOrdering Facility: [facility] Address: [address] [place] [address] Performed By: #### 5 7021-8 ####[facility] LABCLIA [id number] [place] [address] Hemoglobin (Bld) [Mass/Vol] 11.9 g/dL Normal 11.5-15.5 [facility] Comment on above: Order Comment: Speci men Type: BLOOD SPECIMENOrdering Facility: [facility] Address: [address] [place] [address] Performed By: #### 5 7021-8 ####[facility] LABCLIA [id number] [place] [address] Immature granulocytes (Bld) [#/Vol] 0.08 10*3/uL Normal <0.10 [facility] Comment on above: Order Comment: Speci men Type: BLOOD SPECIMENOrdering Facility: [facility] Address: [address] [place] [address] Performed By: #### 5 7021-8 ####[facility] LABIA [id number] [place] [address] Immature granulocytes/100 WBC (Bld) 1.1 % Normal [facility] Comment on above: Order Comment: Speci men Type: BLOOD SPECIMENOrdering Facility: [facility] Address: [address] [place] [address] Performed By: #### 5 7021-8 ####[facility] LABCLIA [id number] [place] [address] Lymphocytes (Bld) [#/Vol] 0.24 10*3/uL Low 1.00-4.00 [facility] Comment on above: Order Comment: Speci men Type: BLOOD SPECIMENOrdering Facility: [facility] Address: [address] [place] [address] Performed By: #### 5 7021-8 ####[facility] LABCLIA [id number] [place] [address] Lymphocytes/100 WBC (Bld) 3.3 % Normal [facility] Comment on above: Order Comment: Speci men Type: BLOOD SPECIMENOrdering Facility: [facility] Address: [address] [place] [address] Performed By: #### 5 7021-8 ####[facility] LABCLIA [id number] [place] [address] MCH (RBC) [Entitic mass] 31.6 pg Normal 26.0-34.0 [facility] Comment on above: Order Comment: Speci men Type: BLOOD SPECIMENOrdering Facility: [facility] Address: [address] [place] [address] Performed By: #### 5 7021-8 ####[facility] LABCLIA [id number] [place] [address] MCHC (RBC) [Mass/Vol] 33.1 g/dL Normal 30.5-36.0 [facility] Comment on above: Order Comment: Speci men Type: BLOOD SPECIMENOrdering Facility: [facility] Address: [address] [place] [address] Performed By: #### 5 7021-8 ####[facility] LABCLIA [id number] [place] [address] MCV (RBC) [Entitic vol] 95.5 fL Normal 80.0-100.0 [facility] Comment on above: Order Comment: Speci men Type: BLOOD SPECIMENOrdering Facility: [facility] Address: [address] [place] [address] Performed By: #### 5 7021-8 ####[facility] LABCLIA [id number] [place] [address] Monocytes (Bld) [#/Vol] 0.42 10*3/uL Normal <0.87 [facility] Comment on above: Order Comment: Speci men Type: BLOOD SPECIMENOrdering Facility: [facility] Address: [address] [place] [address] Performed By: #### 5 7021-8 ####[facility] LABCLIA [id number] [place] [address] Monocytes/100 WBC (Bld) 5.8 % Normal [facility] Comment on above: Order Comment: Speci men Type: BLOOD SPECIMENOrdering Facility: [facility] Address: [address] [place] [address] Performed By: #### 5 7021-8 ####[facility] LABCLIA [id number] [place] [address] Neutrophils (Bld) [#/Vol] 6.45 10*3/uL Normal 1.45-7.50 [facility] Comment on above: Order Comment: Speci men Type: BLOOD SPECIMENOrdering Facility: [facility] Address: [address] [place] [address] Performed By: #### 5 7021-8 ####[facility] LABCLIA [id number] [place] [address] Neutrophils/100 WBC (Bld) 89.5 % Normal [facility] Comment on above: Order Comment: Speci men Type: BLOOD SPECIMENOrdering Facility: [facility] Address: [address] [place] [address] Performed By: #### 5 7021-8 ####[facility] LABCLIA [id number] [place] [address] Nucleated RBC (Bld) [#/Vol] 10*3/uL Normal <0.01 [facility] Comment on above: Order Comment: Speci men Type: BLOOD SPECIMENOrdering Facility: [facility] Address: [address] [place] [address] Performed By: #### 5 7021-8 ####[facility] LABCLIA [id number] [place] [address] Nucleated RBC/100 WBC (Bld) [Ratio] 0.0 /100 WBC Normal [facility] Comment on above: Order Comment: Speci men Type: BLOOD SPECIMENOrdering Facility: [facility] Address: [address] [place] [address] Performed By: #### 5 7021-8 ####[facility] LABCLIA [id number] [place] [address] Platelet mean volume (Bld) [Entitic vol] 9.9 fL Normal 9.0-12.7 [facility] Comment on above: Order Comment: Speci men Type: BLOOD SPECIMENOrdering Facility: [facility] Address: [address] [place] [address] Performed By: #### 5 7021-8 ####[facility] LABCLIA [id number] [place] [address] Platelets (Bld) [#/Vol] 144 10*3/uL Low 150-400 [facility] Comment on above: Order Comment: Speci men Type: BLOOD SPECIMENOrdering Facility: [facility] Address: [address] [place] [address] Performed By: #### 5 7021-8 ####[facility] LABCLIA [id number] [place] [address] RBC (Bld) [#/Vol] 3.76 10*6/uL Low 3.90-5.20 [facility] Comment on above: Order Comment: Speci men Type: BLOOD SPECIMENOrdering Facility: [facility] Address: [address] [place] [address] Performed By: #### 5 7021-8 ####[facility] LABIA [id number] [place] [address] WBC (Bld) [#/Vol] 7.21 10*3/uL Normal 3.70-11.00 [facility] Comment on above: Order Comment: Speci men Type: BLOOD SPECIMENOrdering Facility: [facility] Address: [address] [place] [address] Performed By: #### 5 7021-8 ####[facility] LABIA [id number] [place] [address] CNOVSPon 07-10-2023 CNOVSP Normal [facility] metabolic 2000 panelon 07-10-2023 Albumin [Mass/Vol] 4.1 g/dL Normal 3.9-4.9 [facility] Comment on above: Order Comment: Speci men Type: BLOOD SPECIMENOrdering Facility: [facility] Address: [address] [place] [address] Performed By: #### 2 4323-8 ####[facility] LABIA [id number] [place] [address] ALP [Catalytic activity/Vol] 56 U/L Normal 34-123 [facility] Comment on above: Order Comment: Speci men Type: BLOOD SPECIMENOrdering Facility: [facility] Address: [address] [place] [address] Performed By: #### 2 4323-8 ####[facility] LABCLIA [id number] [place] [address] ALT [Catalytic activity/Vol] 6 U/L Low 7-38 [facility] Comment on above: Order Comment: Speci men Type: BLOOD SPECIMENOrdering Facility: [facility] Address: [address] [place] [address] Performed By: #### 2 4323-8 ####[facility] LABCLIA [id number] [place] [address] Anion gap [Moles/Vol] 14 mmol/L Normal 9-18 [facility] Comment on above: Order Comment: Speci men Type: BLOOD SPECIMENOrdering Facility: [facility] Address: [address] [place] [address] Performed By: #### 2 4323-8 ####[facility] LABCLIA [id number] [place] [address] AST [Catalytic activity/Vol] 8 U/L Low 13-35 [facility] Comment on above: Order Comment: Speci men Type: BLOOD SPECIMENOrdering Facility: [facility] Address: [address] [place] [address] Performed By: #### 2 4323-8 ####[facility] LABCLIA [id number] [place] [address] Bilirubin [Mass/Vol] 0.4 mg/dL Normal 0.2-1.3 [facility] Comment on above: Order Comment: Speci men Type: BLOOD SPECIMENOrdering Facility: [facility] Address: [address] [place] [address] Performed By: #### 2 4323-8 ####[facility] LABCLIA [id number] [place] [address] Calcium [Mass/Vol] 9.5 mg/dL Normal 8.5-10.2 [facility] Comment on above: Order Comment: Speci men Type: BLOOD SPECIMENOrdering Facility: [facility] Address: [address] [place] [address] Performed By: #### 2 4323-8 ####[facility] LABCLIA [id number] [place] [address] Chloride [Moles/Vol] 105 mmol/L Normal 97-105 [facility] Comment on above: Order Comment: Speci men Type: BLOOD SPECIMENOrdering Facility: [facility] Address: [address] [place] [address] Performed By: #### 2 4323-8 ####[facility] LABCLIA [id number] [place] [address] CO2 [Moles/Vol] 24 mmol/L Normal 22-30 [facility] Comment on above: Order Comment: Speci men Type: BLOOD SPECIMENOrdering Facility: [facility] Address: [address] [place] [address] Performed By: #### 2 4323-8 ####[facility] LABCLIA [id number] [place] [address] Creatinine [Mass/Vol] 0.75 mg/dL Normal 0.58-0.96 [facility] Comment on above: Order Comment: Speci men Type: BLOOD SPECIMENOrdering Facility: [facility] Address: [address] [place] [address] Performed By: #### 2 4323-8 ####[facility] LABCLIA [id number] [place] [address] Creatinine and Glomerular filtration rate.predicted panel (S/P/Bld) 81 mL/min/1.73m??? Normal >=60 [facility] Comment on above: Order Comment: Speci men Type: BLOOD SPECIMENOrdering Facility: [facility] Address: [address] [place] [address] Result Comment: Kim mated Glomerular Filtration Rate [...] actual GFR. Performed By: #### 2 4323-8 ####[facility] LABCLIA [id number] [place] [address] Glucose [Mass/Vol] 165 mg/dL High 74-99 [facility] Comment on above: Order Comment: Speci men Type: BLOOD SPECIMENOrdering Facility: [facility] Address: [address] [place] [id number] Result Comment: The [place] [employer] (ADA) provides guidance for cutoff [...] Standards of Medical Care in Diabetes 2016, [place] [employer]. Diabetes Care. 2016.39(Suppl 1). Performed By: #### 2 4323-8 ####[facility] LABCLIA [id number] [place] [address] Potassium [Moles/Vol] 3.4 mmol/L Low 3.7-5.1 [facility] Comment on above: Order Comment: Speci men Type: BLOOD SPECIMENOrdering Facility: [facility] Address: [address] [place] [address] Performed By: #### 2 4323-8 ####[facility] LABCLIA [id number] [place] [address] Protein [Mass/Vol] 6.2 g/dL Low 6.3-8.0 [facility] Comment on above: Order Comment: Speci men Type: BLOOD SPECIMENOrdering Facility: [facility] Address: [address] [place] [address] Performed By: #### 2 4323-8 ####[facility] LABCLIA [id number] [place] [address] Sodium [Moles/Vol] 143 mmol/L Normal 136-144 [facility] Comment on above: Order Comment: Speci men Type: BLOOD SPECIMENOrdering Facility: [facility] Address: [address] [place] [address] Performed By: #### 2 4323-8 ####[facility] LABCLIA [id number] [place] [address] Urea nitrogen [Mass/Vol] 22 mg/dL High 7- [facility] Comment on above: Order Comment: Speci men Type: BLOOD SPECIMENOrdering Facility: [facility] Address: [address] [place] [address] Performed By: #### 2 4323-8 ####[facility] LABCLIA [id number] [place] [address] CNPNon 07-02-2023 CNPN Normal [facility] CBC W Auto Differential pane l (Bld)on 06-29-2023 Basophils (Bld) [#/Vol] 10*3/uL Normal <0.11 [facility] Comment on above: Order Comment: Speci men Type: BLOOD SPECIMENOrdering Facility: [facility] Address: [address] [place] [address] Performed By: #### 5 7021-8 ####[facility] LABCLIA [id number] [place] [address] Basophils/100 WBC (Bld) 0.2 % Normal [facility] Comment on above: Order Comment: Speci men Type: BLOOD SPECIMENOrdering Facility: [facility] Address: [address] [place] [address] Performed By: #### 5 7021-8 ####[facility] LABCLIA [id number] [place] [address] Differential cell count method Nom (Bld) Auto Normal [facility] Comment on above: Order Comment: Speci men Type: BLOOD SPECIMENOrdering Facility: [facility] Address: [address] [place] [address] Performed By: #### 5 7021-8 ####[facility] LABCLIA [id number] [place] [address] Eosinophils (Bld) [#/Vol] 10*3/uL Normal <0.46 [facility] Comment on above: Order Comment: Speci men Type: BLOOD SPECIMENOrdering Facility: [facility] Address: [address] [place] [address] Performed By: #### 5 7021-8 ####[facility] LABCLIA [id number] [place] [address] Eosinophils/100 WBC (Bld) 0.0 % Normal [facility] Comment on above: Order Comment: Speci men Type: BLOOD SPECIMENOrdering Facility: [facility] Address: [address] [place] [address] Performed By: #### 5 7021-8 ####[facility] LABCLIA [id number] [place] [address] Erythrocyte distribution width (RBC) [Ratio] 13.8 % Normal 11.5-15.0 [facility] Comment on above: Order Comment: Speci men Type: BLOOD SPECIMENOrdering Facility: [facility] Address: [address] [place] [address] Performed By: #### 5 7021-8 ####[facility] LABCLIA [id number] [place] [address] Hematocrit (Bld) [Volume fraction] 35.1 % Low 36.0-46.0 [facility] Comment on above: Order Comment: Speci men Type: BLOOD SPECIMENOrdering Facility: [facility] Address: [address] [place] [address] Performed By: #### 5 7021-8 ####[facility] LABCLIA [id number] [place] [address] Hemoglobin (Bld) [Mass/Vol] 11.5 g/dL Normal 11.5-15.5 [facility] Comment on above: Order Comment: Speci men Type: BLOOD SPECIMENOrdering Facility: [facility] Address: [address] [place] [address] Performed By: #### 5 7021-8 ####[facility] LABCLIA [id number] [place] [address] Immature granulocytes (Bld) [#/Vol] 0.05 10*3/uL Normal <0.10 [facility] Comment on above: Order Comment: Speci men Type: BLOOD SPECIMENOrdering Facility: [facility] Address: [address] [place] [address] Performed By: #### 5 7021-8 ####[facility] LABCLIA [id number] [place] [address] Immature granulocytes/100 WBC (Bld) 0.9 % Normal [facility] Comment on above: Order Comment: Speci men Type: BLOOD SPECIMENOrdering Facility: [facility] Address: [address] [place] [address] Performed By: #### 5 7021-8 ####[facility] LABCLIA [id number] [place] [address] Lymphocytes (Bld) [#/Vol] 0.50 10*3/uL Low 1.00-4.00 [facility] Comment on above: Order Comment: Speci men Type: BLOOD SPECIMENOrdering Facility: [facility] Address: [address] [place] [address] Performed By: #### 5 7021-8 ####[facility] LABCLIA [id number] [place] [address] Lymphocytes/100 WBC (Bld) 9.0 % Normal [facility] Comment on above: Order Comment: Speci men Type: BLOOD SPECIMENOrdering Facility: [facility] Address: [address] [place] [address] Performed By: #### 5 7021-8 ####[facility] LABIA [id number] [place] [address] MCH (RBC) [Entitic mass] 31.3 pg Normal 26.0-34.0 [facility] Comment on above: Order Comment: Speci men Type: BLOOD SPECIMENOrdering Facility: [facility] Address: [address] [place] [address] Performed By: #### 5 7021-8 ####[facility] LABCLIA [id number] [place] [address] MCHC (RBC) [Mass/Vol] 32.8 g/dL Normal 30.5-36.0 [facility] Comment on above: Order Comment: Speci men Type: BLOOD SPECIMENOrdering Facility: [facility] Address: [address] [place] [address] Performed By: #### 5 7021-8 ####[facility] LABCLIA [id number] [place] [address] MCV (RBC) [Entitic vol] 95.4 fL Normal 80.0-100.0 [facility] Comment on above: Order Comment: Speci men Type: BLOOD SPECIMENOrdering Facility: [facility] Address: [address] [place] [address] Performed By: #### 5 7021-8 ####[facility] LABCLIA [id number] [place] [address] Monocytes (Bld) [#/Vol] 0.34 10*3/uL Normal <0.87 [facility] Comment on above: Order Comment: Speci men Type: BLOOD SPECIMENOrdering Facility: [facility] Address: [address] [place] [address] Performed By: #### 5 7021-8 ####[facility] LABCLIA [id number] [place] [address] Monocytes/100 WBC (Bld) 6.1 % Normal [facility] Comment on above: Order Comment: Speci men Type: BLOOD SPECIMENOrdering Facility: [facility] Address: [address] [place] [address] Performed By: #### 5 7021-8 ####[facility] LABCLIA [id number] [place] [address] Neutrophils (Bld) [#/Vol] 4.63 10*3/uL Normal 1.45-7.50 [facility] Comment on above: Order Comment: Speci men Type: BLOOD SPECIMENOrdering Facility: [facility] Address: [address] [place] [address] Performed By: #### 5 7021-8 ####[facility] LABCLIA [id number] [place] [address] Neutrophils/100 WBC (Bld) 83.8 % Normal [facility] Comment on above: Order Comment: Speci men Type: BLOOD SPECIMENOrdering Facility: [facility] Address: [address] [place] [address] Performed By: #### 5 7021-8 ####[facility] LABCLIA [id number] [place] [address] Nucleated RBC (Bld) [#/Vol] 10*3/uL Normal <0.01 [facility] Comment on above: Order Comment: Speci men Type: BLOOD SPECIMENOrdering Facility: [facility] Address: [address] [place] [address] Performed By: #### 5 7021-8 ####[facility] LABCLIA [id number] [place] [address] Nucleated RBC/100 WBC (Bld) [Ratio] 0.0 /100 WBC Normal [facility] Comment on above: Order Comment: Speci men Type: BLOOD SPECIMENOrdering Facility: [facility] Address: [address] [place] [address] Performed By: #### 5 7021-8 ####[facility] LABCLIA [id number] [place] [address] Platelet mean volume (Bld) [Entitic vol] 10.6 fL Normal 9.0-12.7 [facility] Comment on above: Order Comment: Speci men Type: BLOOD SPECIMENOrdering Facility: [facility] Address: [address] [place] [address] Performed By: #### 5 7021-8 ####[facility] LABCLIA [id number] [place] [address] Platelets (Bld) [#/Vol] 188 10*3/uL Normal 150-400 [facility] Comment on above: Order Comment: Speci men Type: BLOOD SPECIMENOrdering Facility: [facility] Address: [address] [place] [address] Performed By: #### 5 7021-8 ####[facility] LABCLIA [id number] [place] [address] RBC (Bld) [#/Vol] 3.68 10*6/uL Low 3.90-5.20 [facility] Comment on above: Order Comment: Speci men Type: BLOOD SPECIMENOrdering Facility: [facility] Address: [address] [place] [address] Performed By: #### 5 7021-8 ####[facility] LABCLIA [id number] [place] [address] WBC (Bld) [#/Vol] 5.53 10*3/uL Normal 3.70-11.00 [facility] Comment on above: Order Comment: Speci men Type: BLOOD SPECIMENOrdering Facility: [facility] Address: [address] [place] [address] Performed By: #### 5 7021-8 ####[facility] LABCLIA [id number] [place] [address] CNOVSPon 06-29-2023 CNOVSP Normal [facility] CNPNon 06-29-2023 CNPN Normal [facility] Comprehensive metabolic 2000 panelon 06-29-2023 Albumin [Mass/Vol] 4.0 g/dL Normal 3.9-4.9 [facility] Comment on above: Order Comment: Speci men Type: BLOOD SPECIMENOrdering Facility: [facility] Address: [address] [place] [address] Performed By: #### 2 4323-8 ####[facility] LABCLIA [id number] [place] [address] ALP [Catalytic activity/Vol] 65 U/L Normal 34-123 [facility] Comment on above: Order Comment: Speci men Type: BLOOD SPECIMENOrdering Facility: [facility] Address: [address] [place] [address] Performed By: #### 2 4323-8 ####[facility] LABCLIA [id number] [place] [address] ALT [Catalytic activity/Vol] 6 U/L Low 7-38 [facility] Comment on above: Order Comment: Speci men Type: BLOOD SPECIMENOrdering Facility: [facility] Address: [address] [place] [address] Performed By: #### 2 4323-8 ####[facility] LABCLIA [id number] [place] [address] Anion gap [Moles/Vol] 14 mmol/L Normal 9-18 [facility] Comment on above: Order Comment: Speci men Type: BLOOD SPECIMENOrdering Facility: [facility] Address: [address] [place] [address] Performed By: #### 2 4323-8 ####[facility] LABCLIA [id number] [place] [address] AST [Catalytic activity/Vol] 8 U/L Low 13-35 [facility] Comment on above: Order Comment: Speci men Type: BLOOD SPECIMENOrdering Facility: [facility] Address: [address] [place] [address] Performed By: #### 2 4323-8 ####[facility] LABCLIA [id number] [place] [address] Bilirubin [Mass/Vol] 0.4 mg/dL Normal 0.2-1.3 [facility] Comment on above: Order Comment: Speci men Type: BLOOD SPECIMENOrdering Facility: [facility] Address: [address] [place] [address] Performed By: #### 2 4323-8 ####[facility] LABCLIA [id number] [place] [address] Calcium [Mass/Vol] 9.7 mg/dL Normal 8.5-10.2 [facility] Comment on above: Order Comment: Speci men Type: BLOOD SPECIMENOrdering Facility: [facility] Address: [address] [place] [address] Performed By: #### 2 4323-8 ####[facility] LABCLIA [id number] [place] [address] Chloride [Moles/Vol] 106 mmol/L High 97-105 [facility] Comment on above: Order Comment: Speci men Type: BLOOD SPECIMENOrdering Facility: [facility] Address: [address] [place] [address] Performed By: #### 2 4323-8 ####[facility] LABCLIA [id number] [place] [address] CO2 [Moles/Vol] 25 mmol/L Normal 22-30 [facility] Comment on above: Order Comment: Speci men Type: BLOOD SPECIMENOrdering Facility: [facility] Address: [address] [place] [address] Performed By: #### 2 4323-8 ####[facility] LABCLIA [id number] [place] [address] Creatinine [Mass/Vol] 0.73 mg/dL Normal 0.58-0.96 [facility] Comment on above: Order Comment: Speci men Type: BLOOD SPECIMENOrdering Facility: [facility] Address: [address] [place] [address] Performed By: #### 2 4323-8 ####[facility] LABIA [id number] [place] [address] Creatinine and Glomerular filtration rate.predicted panel (S/P/Bld) 83 mL/min/1.73m??? Normal >=60 [facility] Comment on above: Order Comment: Speci men Type: BLOOD SPECIMENOrdering Facility: [facility] Address: [address] [place] [address] Result Comment: Kim mated Glomerular Filtration Rate [...] actual GFR. Performed By: #### 2 4323-8 ####[facility] LABCLIA [id number] [place] [address] Glucose [Mass/Vol] 133 mg/dL High 74-99 [facility] Comment on above: Order Comment: Kurt barraza Type: BLOOD SPECIMENOrdering Facility: [facility] Address: [address] [place] [address] Result Comment: The [place] [employer] (ADA) provides guidance for cutoff [...] Standards of Medical Care in Diabetes 2016, [place] [employer]. Diabetes Care. 2016.39(Suppl 1). Performed By: #### 2 4323-8 ####[facility] LABCLIA [id number] [place] [address] Potassium [Moles/Vol] 3.8 mmol/L Normal 3.7-5.1 [facility] Comment on above: Order Comment: Kurt barraza Type: BLOOD SPECIMENOrdering Facility: [facility] Address: [address] [place] [address] Performed By: #### 2 4323-8 ####[facility] LABCLIA [id number] [place] [address] Protein [Mass/Vol] 6.1 g/dL Low 6.3-8.0 [facility] Comment on above: Order Comment: Speci men Type: BLOOD SPECIMENOrdering Facility: [facility] Address: [address] [place] [address] Performed By: #### 2 4323-8 ####[facility] LABCLIA [id number] [place] [address] Sodium [Moles/Vol] 145 mmol/L High 136-144 [facility] Comment on above: Order Comment: Speci men Type: BLOOD SPECIMENOrdering Facility: [facility] Address: [address] [place] [address] Performed By: #### 2 4323-8 ####[facility] LABCLIA [id number] [place] [address] Urea nitrogen [Mass/Vol] 21 mg/dL Normal 7-21 [facility] Comment on above: Order Comment: Speci men Type: BLOOD SPECIMENOrdering Facility: [facility] Address: [address] [place] [address] Performed By: #### 2 4323-8 ####[facility] LABCLIA [id number] [place] [address] CNSWon 06-25-2023 CNSW Normal [facility] CNPNon 06-23-2023 CNPN Normal [facility] CNPNon 06-22-2023 CNPN Normal [facility] CNCOon 06-19-2023 CNCO Letter Text Normal [facility] CNPNon 06-18-2023 CNPN Normal [facility] CNOVon 06-15-2023 CNOV Normal [facility] CNPNon 06-15-2023 CNPN Normal [facility] CNPNon 06-04-2023 CNPN Normal [facility] CNPNon 06-01-2023 CNPN Normal [facility] CNTRTMon 05-31-2023 CNTRTM Normal [facility] CBC W Auto Differential pane l (Bld)on 05-29-2023 Basophils (Bld) [#/Vol] 0.03 10*3/uL Normal <0.11 [facility] Comment on above: Order Comment: Speci men Type: BLOOD SPECIMENOrdering Facility: [facility] Address: [address] [place] [address] Performed By: #### 5 7021-8 ####[facility] LABCLIA [id number] [place] [address] Basophils/100 WBC (Bld) 0.5 % Normal [facility] Comment on above: Order Comment: Speci men Type: BLOOD SPECIMENOrdering Facility: [facility] Address: [address] [place] [address] Performed By: #### 5 7021-8 ####[facility] LABCLIA [id number] [place] [address] Differential cell count method Nom (Bld) Auto Normal [facility] Comment on above: Order Comment: Speci men Type: BLOOD SPECIMENOrdering Facility: [facility] Address: [address] [place] [address] Performed By: #### 5 7021-8 ####[facility] LABCLIA [id number] [place] [address] Eosinophils (Bld) [#/Vol] 10*3/uL Normal <0.46 [facility] Comment on above: Order Comment: Speci men Type: BLOOD SPECIMENOrdering Facility: [facility] Address: [address] [place] [address] Performed By: #### 5 7021-8 ####[facility] LABCLIA [id number] [place] [address] Eosinophils/100 WBC (Bld) 0.2 % Normal [facility] Comment on above: Order Comment: Speci men Type: BLOOD SPECIMENOrdering Facility: [facility] Address: [address] [place] [address] Performed By: #### 5 7021-8 ####[facility] LABCLIA [id number] [place] [address] Erythrocyte distribution width (RBC) [Ratio] 14.4 % Normal 11.5-15.0 [facility] Comment on above: Order Comment: Speci men Type: BLOOD SPECIMENOrdering Facility: [facility] Address: [address] [place] [address] Performed By: #### 5 7021-8 ####[facility] LABCLIA [id number] [place] [address] Hematocrit (Bld) [Volume fraction] 31.8 % Low 36.0-46.0 [facility] Comment on above: Order Comment: Speci men Type: BLOOD SPECIMENOrdering Facility: [facility] Address: [address] [place] [address] Performed By: #### 5 7021-8 ####[facility] LABCLIA [id number] [place] [address] Hemoglobin (Bld) [Mass/Vol] 10.5 g/dL Low 11.5-15.5 [facility] Comment on above: Order Comment: Speci men Type: BLOOD SPECIMENOrdering Facility: [facility] Address: [address] [place] [address] Performed By: #### 5 7021-8 ####[facility] LABCLIA [id number] [place] [address] Immature granulocytes (Bld) [#/Vol] 0.07 10*3/uL Normal <0.10 [facility] Comment on above: Order Comment: Speci men Type: BLOOD SPECIMENOrdering Facility: [facility] Address: [address] [place] [address] Performed By: #### 5 7021-8 ####[facility] LABCLIA [id number] [place] [address] Immature granulocytes/100 WBC (Bld) 1.1 % Normal [facility] Comment on above: Order Comment: Speci men Type: BLOOD SPECIMENOrdering Facility: [facility] Address: [address] [place] [address] Performed By: #### 5 7021-8 ####[facility] LABCLIA [id number] [place] [address] Lymphocytes (Bld) [#/Vol] 0.79 10*3/uL Low 1.00-4.00 [facility] Comment on above: Order Comment: Speci men Type: BLOOD SPECIMENOrdering Facility: [facility] Address: [address] [place] [address] Performed By: #### 5 7021-8 ####[facility] LABCLIA [id number] [place] [address] Lymphocytes/100 WBC (Bld) 12.4 % Normal [facility] Comment on above: Order Comment: Speci men Type: BLOOD SPECIMENOrdering Facility: [facility] Address: [address] [place] [address] Performed By: #### 5 7021-8 ####[facility] LABCLIA [id number] [place] [address] MCH (RBC) [Entitic mass] 32.1 pg Normal 26.0-34.0 [facility] Comment on above: Order Comment: Speci men Type: BLOOD SPECIMENOrdering Facility: [facility] Address: [address] [place] [address] Performed By: #### 5 7021-8 ####[facility] LABCLIA [id number] [place] [address] MCHC (RBC) [Mass/Vol] 33.0 g/dL Normal 30.5-36.0 [facility] Comment on above: Order Comment: Speci men Type: BLOOD SPECIMENOrdering Facility: [facility] Address: [address] [place] [address] Performed By: #### 5 7021-8 ####[facility] LABCLIA [id number] [place] [address] MCV (RBC) [Entitic vol] 97.2 fL Normal 80.0-100.0 [facility] Comment on above: Order Comment: Speci men Type: BLOOD SPECIMENOrdering Facility: [facility] Address: [address] [place] [address] Performed By: #### 5 7021-8 ####[facility] LABCLIA [id number] [place] [address] Monocytes (Bld) [#/Vol] 0.67 10*3/uL Normal <0.87 [facility] Comment on above: Order Comment: Speci men Type: BLOOD SPECIMENOrdering Facility: [facility] Address: [address] [place] [address] Performed By: #### 5 7021-8 ####[facility] LABCLIA [id number] [place] [address] Monocytes/100 WBC (Bld) 10.5 % Normal [facility] Comment on above: Order Comment: Speci men Type: BLOOD SPECIMENOrdering Facility: [facility] Address: [address] [place] [address] Performed By: #### 5 7021-8 ####[facility] LABCLIA [id number] [place] [address] Neutrophils (Bld) [#/Vol] 4.80 10*3/uL Normal 1.45-7.50 [facility] Comment on above: Order Comment: Speci men Type: BLOOD SPECIMENOrdering Facility: [facility] Address: [address] [place] [address] Performed By: #### 5 7021-8 ####[facility] LABCLIA [id number] [place] [address] Neutrophils/100 WBC (Bld) 75.3 % Normal [facility] Comment on above: Order Comment: Speci men Type: BLOOD SPECIMENOrdering Facility: [facility] Address: [address] [place] [address] Performed By: #### 5 7021-8 ####[facility] LABCLIA [id number] [place] [address] Nucleated RBC (Bld) [#/Vol] 10*3/uL Normal <0.01 [facility] Comment on above: Order Comment: Speci men Type: BLOOD SPECIMENOrdering Facility: [facility] Address: [address] [place] [address] Performed By: #### 5 7021-8 ####[facility] LABCLIA [id number] [place] [address] Nucleated RBC/100 WBC (Bld) [Ratio] 0.0 /100 WBC Normal [facility] Comment on above: Order Comment: Speci men Type: BLOOD SPECIMENOrdering Facility: [facility] Address: [address] [place] [address] Performed By: #### 5 7021-8 ####[facility] LABCLIA [id number] [place] [address] Platelet mean volume (Bld) [Entitic vol] 10.5 fL Normal 9.0-12.7 [facility] Comment on above: Order Comment: Speci men Type: BLOOD SPECIMENOrdering Facility: [facility] Address: [address] [place] [address] Performed By: #### 5 7021-8 ####[facility] LABCLIA [id number] [place] [address] Platelets (Bld) [#/Vol] 204 10*3/uL Normal 150-400 [facility] Comment on above: Order Comment: Speci men Type: BLOOD SPECIMENOrdering Facility: [facility] Address: [address] [place] [address] Performed By: #### 5 7021-8 ####[facility] LABCLIA [id number] [place] [address] RBC (Bld) [#/Vol] 3.27 10*6/uL Low 3.90-5.20 [facility] Comment on above: Order Comment: Speci men Type: BLOOD SPECIMENOrdering Facility: [facility] Address: [address] [place] [address] Performed By: #### 5 7021-8 ####[facility] LABIA [id number] [place] [address] WBC (Bld) [#/Vol] 6.37 10*3/uL Normal 3.70-11.00 [facility] Comment on above: Order Comment: Speci men Type: BLOOD SPECIMENOrdering Facility: [facility] Address: [address] [place] [address] Performed By: #### 5 7021-8 ####[facility] LABIA [id number] [place] [address] CNOVSPon 05-29-2023 CNOVSP Normal [facility] metabolic 2000 panelon 05-29-2023 Albumin [Mass/Vol] 4.1 g/dL Normal 3.9-4.9 [facility] Comment on above: Order Comment: Speci men Type: BLOOD SPECIMENOrdering Facility: [facility] Address: [address] [place] [address] Performed By: #### 2 4323-8 ####[facility] LABIA [id number] [place] [address] ALP [Catalytic activity/Vol] 45 U/L Normal 34-123 [facility] Comment on above: Order Comment: Speci men Type: BLOOD SPECIMENOrdering Facility: [facility] Address: [address] [place] [address] Performed By: #### 2 4323-8 ####[facility] LABIA [id number] [place] [address] ALT [Catalytic activity/Vol] 8 U/L Normal 7-38 [facility] Comment on above: Order Comment: Speci men Type: BLOOD SPECIMENOrdering Facility: [facility] Address: [address] [place] [address] Performed By: #### 2 4323-8 ####[facility] LABCLIA [id number] [place] [address] Anion gap [Moles/Vol] 12 mmol/L Normal 9-18 [facility] Comment on above: Order Comment: Speci men Type: BLOOD SPECIMENOrdering Facility: [facility] Address: [address] [place] [address] Performed By: #### 2 4323-8 ####[facility] LABCLIA [id number] [place] [address] AST [Catalytic activity/Vol] 10 U/L Low 13-35 [facility] Comment on above: Order Comment: Speci men Type: BLOOD SPECIMENOrdering Facility: [facility] Address: [address] [place] [address] Performed By: #### 2 4323-8 ####[facility] LABCLIA [id number] [place] [address] Bilirubin [Mass/Vol] 0.3 mg/dL Normal 0.2-1.3 [facility] Comment on above: Order Comment: Speci men Type: BLOOD SPECIMENOrdering Facility: [facility] Address: [address] [place] [address] Performed By: #### 2 4323-8 ####[facility] LABCLIA [id number] [place] [address] Calcium [Mass/Vol] 9.4 mg/dL Normal 8.5-10.2 [facility] Comment on above: Order Comment: Speci men Type: BLOOD SPECIMENOrdering Facility: [facility] Address: [address] [place] [address] Performed By: #### 2 4323-8 ####[facility] LABCLIA [id number] [place] [address] Chloride [Moles/Vol] 104 mmol/L Normal 97-105 [facility] Comment on above: Order Comment: Speci men Type: BLOOD SPECIMENOrdering Facility: [facility] Address: [address] [place] [address] Performed By: #### 2 4323-8 ####[facility] LABCLIA [id number] [place] [address] CO2 [Moles/Vol] 26 mmol/L Normal 22-30 [facility] Comment on above: Order Comment: Speci men Type: BLOOD SPECIMENOrdering Facility: [facility] Address: [address] [place] [address] Performed By: #### 2 4323-8 ####[facility] LABCLIA [id number] [place] [address] Creatinine [Mass/Vol] 0.97 mg/dL High 0.58-0.96 [facility] Comment on above: Order Comment: Speci men Type: BLOOD SPECIMENOrdering Facility: [facility] Address: [address] [place] [address] Performed By: #### 2 4323-8 ####[facility] LABCLIA [id number] [place] [address] Creatinine and Glomerular filtration rate.predicted panel (S/P/Bld) 59 mL/min/1.73m??? Low >=60 [facility] Comment on above: Order Comment: Speci men Type: BLOOD SPECIMENOrdering Facility: [facility] Address: [address] [place] [address] Result Comment: Kim mated Glomerular Filtration Rate [...] actual GFR. Performed By: #### 2 4323-8 ####[facility] LABCLIA [id number] [place] [address] Glucose [Mass/Vol] 114 mg/dL High 74-99 [facility] Comment on above: Order Comment: Speci men Type: BLOOD SPECIMENOrdering Facility: [facility] Address: [address] [place] [address] Result Comment: The [place] [employer] (ADA) provides guidance for cutoff [...] Standards of Medical Care in Diabetes 2016, [place] [employer]. Diabetes Care. 2016.39(Suppl 1). Performed By: #### 2 4323-8 ####[facility] LABCLIA [id number] [place] [address] Potassium [Moles/Vol] 3.0 mmol/L Low 3.7-5.1 [facility] Comment on above: Order Comment: Speci men Type: BLOOD SPECIMENOrdering Facility: [facility] Address: [address] [place] [address] Performed By: #### 2 4323-8 ####[facility] LABCLIA [id number] [place] [address] Protein [Mass/Vol] 6.0 g/dL Low 6.3-8.0 [facility] Comment on above: Order Comment: Speci men Type: BLOOD SPECIMENOrdering Facility: [facility] Address: [address] [place] [address] Performed By: #### 2 4323-8 ####[facility] LABCLIA [id number] [place] [address] Sodium [Moles/Vol] 142 mmol/L Normal 136-144 [facility] Comment on above: Order Comment: Speci men Type: BLOOD SPECIMENOrdering Facility: [facility] Address: [address] [place] [address] Performed By: #### 2 4323-8 ####[facility] LABCLIA [id number] [place] [address] Urea nitrogen [Mass/Vol] 24 mg/dL High 7-21 [facility] Comment on above: Order Comment: Speci men Type: BLOOD SPECIMENOrdering Facility: [facility] Address: [place] [address] Performed By: #### 2 4323-8 ####[facility] LABCLIA [id number] [place] [address] ALLIED HEALTHon 05-25-2023 ALLIED HEALTH HNO ID: [id number] Author: Umm Junior MRI Tech Service: Radiology Author Type: Early Interventionist Type: Allied Health Filed: 05/25/2023 2:45 PM [...] DATE: May 25, 2023 TIME: 2:17 PM [facility] MRI BRAIN WO/W IVCONon 05-25 MRI BRAIN WO/W IVCON * * *Final Report* * * DATE OF EXAM: May 25 2023 2:46PM [facility] 0295 - MRI BRAIN WO/W IVCON [...] findings are unchanged since the prior exam. Gun Numberer: DOV Transcribe Date/Time: May 25 2023 4:35P Dictated by : KEHINDE BECKETT MD This examination was interpreted and the report reviewed and electronically signed by: KEHINDE BECKETT MD on May 25 2023 4:55PM EST [id number] [facility] NURSING PROGon 05-25-2023 NURSING PROG HNO ID: [id number] Author: Gloria Hare RN Service: Radiology Author [...] DATE: May 25, 2023 TIME: 2:45 PM [facility] BRIEF OP NOTon 05-24-2023 BRIEF OP NOT Normal [facility] HISTORY PHYSICALon HISTORY PHYSICAL Normal [facility] IR IVC FILTER REMOVALon IR IVC FILTER REMOVAL Normal [facility] NURSING PROGon 05-24-2023 NURSING PROG Normal [facility] PT EDon 05-24-2023 PT ED Normal [facility] SURGICAL PATHOLOGYon 023 CASE REPORT Normal [facility] Comment on above: Order Comment: Speci men Type: TISSUE SPECIMENOrdering Facility: [facility] Address: [address] [place] [address] Result Comment: Surg ical Pathology Report Case: [id number] Provider: Pato Beltre MD Collected: 05/24/2023 03:02 PMOrdering Location: [place] [address] Received: 05/25/2023 01:03 AMPathologist: Beny Underwood MD, PhDSpecimen: HARDWARE Performed By: #### S ####[facility] LABCLIA [id number] [place] [address] [place] CLINICAL HISTORY IVC filter removal Normal [facility] Comment on above: Order Comment: Speci men Type: TISSUE SPECIMENOrdering Facility: [facility] Address: [address] [place] [address] Performed By: #### S ####[facility] LABCLIA [id number] [place] [address] [place] FINAL DIAGNOSIS Normal [facility] Comment on above: Order Comment: Speci men Type: TISSUE SPECIMENOrdering Facility: [facility] Address: [address] [place] [address] Result Comment: A. I nferior vena cava, removal:-Vascular Filter (gross examination only)./MLG Performed By: #### S ####[facility] LABCLIA [id number] [address] [place] FINAL PERFORMING LAB Normal [facility] Comment on above: Order Comment: Speci men Type: TISSUE SPECIMENOrdering Facility: [facility] Address: [address] [place] [address] Result Comment: Diag nostic interpretation performed at [facility], [address] [place] [address] CLIA# [id number] Director: Mike Escobedo M.D. Performed By: #### S ####[facility] LABCLIA [id number] [place] [address] [place] GROSS DESCRIPTION A. HARDWARE Normal [facility] Comment on above: Order Comment: Speci men Type: TISSUE SPECIMENOrdering Facility: [facility] Address: [address] [place] [address] Result Comment: Rece ived fresh labeled as hardware is a vascular filter composed of six struts. The vascular filter is intact with no soft tissue present. Photographs are taken. No sections are taken. The specimen is reviewed with Dr. Underwood.[facility] May 25, 2023 10:44 AMGross examination performed at [facility], [address] [place] [address] Performed By: #### S ####[facility] LABCLIA [id number] [facility] [id number] [address] [place] Basic metabolic 2000 panelon 05-22-2023 Anion gap [Moles/Vol] 12 mmol/L Normal 9-18 [facility] Comment on above: Order Comment: Speci men Type: BLOOD SPECIMENOrdering Facility: [facility] Address: [address] [place] [address] Performed By: #### 2 4321-2 ####[facility] LABCLIA [id number] [place] [address] Calcium [Mass/Vol] 9.7 mg/dL Normal 8.5-10.2 [facility] Comment on above: Order Comment: Speci men Type: BLOOD SPECIMENOrdering Facility: [facility] Address: [address] [place] [address] Performed By: #### 2 4321-2 ####[facility] LABCLIA [id number] [place] [address] Chloride [Moles/Vol] 103 mmol/L Normal 97-105 [facility] Comment on above: Order Comment: Speci men Type: BLOOD SPECIMENOrdering Facility: [facility] Address: [address] [place] [address] Performed By: #### 2 4321-2 ####[facility] LABCLIA [id number] [place] [address] CO2 [Moles/Vol] 24 mmol/L Normal 22-30 [facility] Comment on above: Order Comment: Speci men Type: BLOOD SPECIMENOrdering Facility: [facility] Address: [address] [place] [address] Performed By: #### 2 4321-2 ####[facility] LABCLIA [id number] [place] [address] Creatinine [Mass/Vol] 0.78 mg/dL Normal 0.58-0.96 [facility] Comment on above: Order Comment: Speci men Type: BLOOD SPECIMENOrdering Facility: [facility] Address: [address] [place] [address] Performed By: #### 2 4321-2 ####[facility] LABCLIA [id number] [place] [address] Creatinine and Glomerular filtration rate.predicted panel (S/P/Bld) 77 mL/min/1.73m??? Normal >=60 [facility] Comment on above: Order Comment: Speci men Type: BLOOD SPECIMENOrdering Facility: [facility] Address: [address] [place] [address] Result Comment: Kim mated Glomerular Filtration Rate [...] actual GFR. Performed By: #### 2 4321-2 ####[facility] LABCLIA [id number] [place] [address] Glucose [Mass/Vol] 157 mg/dL High 74-99 [facility] Comment on above: Order Comment: Speci men Type: BLOOD SPECIMENOrdering Facility: [facility] Address: [address] [place] [address] Result Comment: The [place] Diabetes Association (ADA) provides guidance for cutoff [...] Standards of Medical Care in Diabetes 2016, [place] [employer]. Diabetes Care. 2016.39(Suppl 1). Performed By: #### 2 4321-2 ####[facility] LABCLIA [id number] [place] [address] Potassium [Moles/Vol] 3.3 mmol/L Low 3.7-5.1 [facility] Comment on above: Order Comment: Speci men Type: BLOOD SPECIMENOrdering Facility: [facility] Address: [address] [place] [address] Performed By: #### 2 4321-2 ####[facility] LABIA [id number] [place] [address] Sodium [Moles/Vol] 139 mmol/L Normal 136-144 [facility] Comment on above: Order Comment: Speci men Type: BLOOD SPECIMENOrdering Facility: [facility] Address: [address] [place] [address] Performed By: #### 2 4321-2 ####[facility] LABCLIA [id number] [place] [address] Urea nitrogen [Mass/Vol] 26 mg/dL High 7-21 [facility] Comment on above: Order Comment: Speci men Type: BLOOD SPECIMENOrdering Facility: [facility] Address: [address] [place] [address] Performed By: #### 2 4321-2 ####[facility] LABIA [id number] [place] [address] CBC W Auto Differential pane l (Bld)on 05-22-2023 Basophils (Bld) [#/Vol] 10*3/uL Normal <0.11 [facility] Comment on above: Order Comment: Speci men Type: BLOOD SPECIMENOrdering Facility: [facility] Address: [address] [place] [address] Performed By: #### 5 7021-8 ####[facility] LABCLIA [id number] [place] [address] Basophils/100 WBC (Bld) 0.3 % Normal [facility] Comment on above: Order Comment: Speci men Type: BLOOD SPECIMENOrdering Facility: [facility] Address: [address] [place] [address] Performed By: #### 5 7021-8 ####[facility] LABCLIA [id number] [place] [address] Differential cell count method Nom (Bld) Auto Normal [facility] Comment on above: Order Comment: Speci men Type: BLOOD SPECIMENOrdering Facility: [facility] Address: [address] [place] [address] Performed By: #### 5 7021-8 ####[facility] LABCLIA [id number] [place] [address] Eosinophils (Bld) [#/Vol] 10*3/uL Normal <0.46 [facility] Comment on above: Order Comment: Speci men Type: BLOOD SPECIMENOrdering Facility: [facility] Address: [address] [place] [address] Performed By: #### 5 7021-8 ####[facility] LABCLIA [id number] [place] [address] Eosinophils/100 WBC (Bld) 0.1 % Normal [facility] Comment on above: Order Comment: Speci men Type: BLOOD SPECIMENOrdering Facility: [facility] Address: [address] [place] [address] Performed By: #### 5 7021-8 ####[facility] LABCLIA [id number] [place] [address] Erythrocyte distribution width (RBC) [Ratio] 14.5 % Normal 11.5-15.0 [facility] Comment on above: Order Comment: Speci men Type: BLOOD SPECIMENOrdering Facility: [facility] Address: [address] [place] [address] Performed By: #### 5 7021-8 ####[facility] LABCLIA [id number] [place] [address] Hematocrit (Bld) [Volume fraction] 35.1 % Low 36.0-46.0 [facility] Comment on above: Order Comment: Speci men Type: BLOOD SPECIMENOrdering Facility: [facility] Address: [address] [place] [address] Performed By: #### 5 7021-8 ####[facility] LABIA [id number] [place] [address] Hemoglobin (Bld) [Mass/Vol] 11.6 g/dL Normal 11.5-15.5 [facility] Comment on above: Order Comment: Speci men Type: BLOOD SPECIMENOrdering Facility: [facility] Address: [address] [place] [address] Performed By: #### 5 7021-8 ####[facility] [facility] LABCLIA [id number] [place] [address] Immature granulocytes (Bld) [#/Vol] 0.11 10*3/uL High <0.10 [facility] Comment on above: Order Comment: Speci men Type: BLOOD SPECIMENOrdering Facility: [facility] Address: [address] [place] [address] Performed By: #### 5 7021-8 ####[facility] LABIA [id number] [place] [address] Immature granulocytes/100 WBC (Bld) 1.6 % Normal [facility] Comment on above: Order Comment: Speci men Type: BLOOD SPECIMENOrdering Facility: [facility] Address: [address] [place] [address] Performed By: #### 5 7021-8 ####[facility] LABCLIA [id number] [place] [address] Lymphocytes (Bld) [#/Vol] 0.41 10*3/uL Low 1.00-4.00 [facility] Comment on above: Order Comment: Speci men Type: BLOOD SPECIMENOrdering Facility: [facility] Address: [address] [place] [address] Performed By: #### 5 7021-8 ####[facility] LABCLIA [id number] [place] [address] Lymphocytes/100 WBC (Bld) 6.0 % Normal [facility] Comment on above: Order Comment: Speci men Type: BLOOD SPECIMENOrdering Facility: [facility] Address: [address] [place] [address] Performed By: #### 5 7021-8 ####[facility] LABCLIA [id number] [place] [address] MCH (RBC) [Entitic mass] 32.1 pg Normal 26.0-34.0 [facility] Comment on above: Order Comment: Speci men Type: BLOOD SPECIMENOrdering Facility: [facility] Address: [address] [place] [address] Performed By: #### 5 7021-8 ####[facility] LABCLIA [id number] [place] [address] MCHC (RBC) [Mass/Vol] 33.0 g/dL Normal 30.5-36.0 [facility] Comment on above: Order Comment: Speci men Type: BLOOD SPECIMENOrdering Facility: [facility] Address: [address] [place] [address] Performed By: #### 5 7021-8 ####[facility] LABCLIA [id number] [place] [address] MCV (RBC) [Entitic vol] 97.2 fL Normal 80.0-100.0 [facility] Comment on above: Order Comment: Speci men Type: BLOOD SPECIMENOrdering Facility: [facility] Address: [address] [place] [address] Performed By: #### 5 7021-8 ####[facility] LABCLIA [id number] [place] [address] Monocytes (Bld) [#/Vol] 0.16 10*3/uL Normal <0.87 [facility] Comment on above: Order Comment: Speci men Type: BLOOD SPECIMENOrdering Facility: [facility] Address: [address] [place] [address] Performed By: #### 5 7021-8 ####[facility] LABCLIA [id number] [place] [address] Monocytes/100 WBC (Bld) 2.3 % Normal [facility] Comment on above: Order Comment: Speci men Type: BLOOD SPECIMENOrdering Facility: [facility] Address: [address] [place] [address] Performed By: #### 5 7021-8 ####[facility] LABCLIA [id number] [place] [address] Neutrophils (Bld) [#/Vol] 6.12 10*3/uL Normal 1.45-7.50 [facility] Comment on above: Order Comment: Speci men Type: BLOOD SPECIMENOrdering Facility: [facility] Address: [address] [place] [address] Performed By: #### 5 7021-8 ####[facility] LABCLIA [id number] [place] [address] Neutrophils/100 WBC (Bld) 89.7 % Normal [facility] Comment on above: Order Comment: Speci men Type: BLOOD SPECIMENOrdering Facility: [facility] Address: [address] [place] [address] Performed By: #### 5 7021-8 ####[facility] LABCLIA [id number] [place] [address] Nucleated RBC (Bld) [#/Vol] 10*3/uL Normal <0.01 [facility] Comment on above: Order Comment: Speci men Type: BLOOD SPECIMENOrdering Facility: [facility] Address: [address] [place] [address] Performed By: #### 5 7021-8 ####[facility] LABCLIA [id number] [place] [address] Nucleated RBC/100 WBC (Bld) [Ratio] 0.0 /100 WBC Normal [facility] Comment on above: Order Comment: Speci men Type: BLOOD SPECIMENOrdering Facility: [facility] Address: [address] [place] [address] Performed By: #### 5 7021-8 ####[facility] LABCLIA [id number] [place] [address] Platelet mean volume (Bld) [Entitic vol] 10.3 fL Normal 9.0-12.7 [facility] Comment on above: Order Comment: Speci men Type: BLOOD SPECIMENOrdering Facility: [facility] Address: [address] [place] [address] Performed By: #### 5 7021-8 ####[facility] LABCLIA [id number] [place] [address] Platelets (Bld) [#/Vol] 232 10*3/uL Normal 150-400 [facility] Comment on above: Order Comment: Speci men Type: BLOOD SPECIMENOrdering Facility: [facility] Address: [address] [place] [address] Performed By: #### 5 7021-8 ####[facility] LABCLIA [id number] [place] [address] RBC (Bld) [#/Vol] 3.61 10*6/uL Low 3.90-5.20 [facility] Comment on above: Order Comment: Speci men Type: BLOOD SPECIMENOrdering Facility: [facility] Address: [address] [place] [address] Performed By: #### 5 7021-8 ####[facility] LABCLIA [id number] [place] [address] WBC (Bld) [#/Vol] 6.83 10*3/uL Normal 3.70-11.00 [facility] Comment on above: Order Comment: Speci men Type: BLOOD SPECIMENOrdering Facility: [facility] Address: [address] [place] [address] Performed By: #### 5 7021-8 ####[facility] LABCLIA [id number] [place] [address] PT panel Coag (PPP)on 2022 INR Coag (PPP) [Relative time] 1.0 {INR} Normal 0.9-1.3 [facility] Comment on above: Order Comment: Speci men Type: BLOOD SPECIMENOrdering Facility: [facility] Address: [address] [place] [address] Result Comment: Milana min K Antagonist (VKA) Therapeutic Range: INR 2 to 3 (Target INR of 2.5)Note: For patients treated with VKA drugs, such as warfarin, the [place] [employer] 2012 Guideline recommends [...] al. Chest 2012, 141:7S-47SKevin RA, et al. [facility] 2017, 70: 252-289 Performed By: #### 3 4528-0 ####[facility] LABCLIA [id number] [facility] [id number] [place] PT Coag (PPP) [Time] 10.5 s Normal 9.7-13.0 [facility] Comment on above: Order Comment: Speci men Type: BLOOD SPECIMENOrdering Facility: [facility] Address: [address] [place] [address] Performed By: #### 3 4528-0 ####[facility] LABCLIA [id number] [facility] [id number], [place] [address] [facility] [place] NURSING PROGon 05-17-2023 NURSING PROG Normal [facility] CNPNon 05-11-2023 CNPN Normal [facility] CBC W Auto Differential pane l (Bld)on 05-04-2023 Basophils (Bld) [#/Vol] 10*3/uL Normal <0.11 [facility] Comment on above: Order Comment: Speci men Type: BLOOD SPECIMENOrdering Facility: [facility] Address: [address] [place] [address] Performed By: #### 5 7021-8 ####[facility] LABCLIA [id number] [place] [address] Basophils/100 WBC (Bld) 0.2 % Normal [facility] Comment on above: Order Comment: Speci men Type: BLOOD SPECIMENOrdering Facility: [facility] Address: [address] [place] [address] Performed By: #### 5 7021-8 ####[facility] LABCLIA [id number] [place] [address] Differential cell count method Nom (Bld) Auto Normal [facility] Comment on above: Order Comment: Speci men Type: BLOOD SPECIMENOrdering Facility: [facility] Address: [address] [place] [address] Performed By: #### 5 7021-8 ####[facility] LABCLIA [id number] [place] [address] Eosinophils (Bld) [#/Vol] 10*3/uL Normal <0.46 [facility] Comment on above: Order Comment: Speci men Type: BLOOD SPECIMENOrdering Facility: [facility] Address: [address] [place] [address] Performed By: #### 5 7021-8 ####[facility] LABCLIA [id number] [place] [address] Eosinophils/100 WBC (Bld) 0.1 % Normal [facility] Comment on above: Order Comment: Speci men Type: BLOOD SPECIMENOrdering Facility: [facility] Address: [address] [place] [address] Performed By: #### 5 7021-8 ####[facility] LABCLIA [id number] [place] [address] Erythrocyte distribution width (RBC) [Ratio] 14.6 % Normal 11.5-15.0 [facility] Comment on above: Order Comment: Speci men Type: BLOOD SPECIMENOrdering Facility: [facility] Address: [address] [place] [address] Performed By: #### 5 7021-8 ####[facility] LABCLIA [id number] [place] [address] Hematocrit (Bld) [Volume fraction] 34.7 % Low 36.0-46.0 [facility] Comment on above: Order Comment: Speci men Type: BLOOD SPECIMENOrdering Facility: [facility] Address: [address] [place] [address] Performed By: #### 5 7021-8 ####[facility] LABCLIA [id number] [place] [address] Hemoglobin (Bld) [Mass/Vol] 11.4 g/dL Low 11.5-15.5 [facility] Comment on above: Order Comment: Speci men Type: BLOOD SPECIMENOrdering Facility: [facility] Address: [address] [place] [address] Performed By: #### 5 7021-8 ####[facility] LABCLIA [id number] [place] [address] Immature granulocytes (Bld) [#/Vol] 0.31 10*3/uL High <0.10 [facility] Comment on above: Order Comment: Speci men Type: BLOOD SPECIMENOrdering Facility: [facility] Address: [address] [place] [address] Performed By: #### 5 7021-8 ####[facility] LABCLIA [id number] [place] [address] Immature granulocytes/100 WBC (Bld) 2.9 % Normal [facility] Comment on above: Order Comment: Speci men Type: BLOOD SPECIMENOrdering Facility: [facility] Address: [address] [place] [address] Performed By: #### 5 7021-8 ####[facility] LABCLIA [id number] [place] [address] Lymphocytes (Bld) [#/Vol] 0.62 10*3/uL Low 1.00-4.00 [facility] Comment on above: Order Comment: Speci men Type: BLOOD SPECIMENOrdering Facility: [facility] Address: [address] [place] [address] Performed By: #### 5 7021-8 ####[facility] LABCLIA [id number] [place] [address] Lymphocytes/100 WBC (Bld) 5.7 % Normal [facility] Comment on above: Order Comment: Speci men Type: BLOOD SPECIMENOrdering Facility: [facility] Address: [address] [place] [address] Performed By: #### 5 7021-8 ####[facility] LABCLIA [id number] [place] [address] MCH (RBC) [Entitic mass] 32.9 pg Normal 26.0-34.0 [facility] Comment on above: Order Comment: Speci men Type: BLOOD SPECIMENOrdering Facility: [facility] Address: [address] [place] [address] Performed By: #### 5 7021-8 ####[facility] LABCLIA [id number] [place] [address] MCHC (RBC) [Mass/Vol] 32.9 g/dL Normal 30.5-36.0 [facility] Comment on above: Order Comment: Speci men Type: BLOOD SPECIMENOrdering Facility: [facility] Address: [address] [place] [address] Performed By: #### 5 7021-8 ####[facility] LABCLIA [id number] [place] [address] MCV (RBC) [Entitic vol] 100.0 fL Normal 80.0-100.0 [facility] Comment on above: Order Comment: Speci men Type: BLOOD SPECIMENOrdering Facility: [facility] Address: [address] [place] [address] Performed By: #### 5 7021-8 ####[facility] LABCLIA [id number] [place] [address] Monocytes (Bld) [#/Vol] 0.81 10*3/uL Normal <0.87 [facility] Comment on above: Order Comment: Speci men Type: BLOOD SPECIMENOrdering Facility: [facility] Address: [address] [place] [address] Performed By: #### 5 7021-8 ####[facility] LABCLIA [id number] [place] [address] Monocytes/100 WBC (Bld) 7.5 % Normal [facility] Comment on above: Order Comment: Speci men Type: BLOOD SPECIMENOrdering Facility: [facility] Address: [address] [place] [address] Performed By: #### 5 7021-8 ####[facility] LABCLIA [id number] [place] [address] Neutrophils (Bld) [#/Vol] 9.09 10*3/uL High 1.45-7.50 [facility] Comment on above: Order Comment: Speci men Type: BLOOD SPECIMENOrdering Facility: [facility] Address: [address] [place] [address] Performed By: #### 5 7021-8 ####[facility] LABCLIA [id number] [place] [address] Neutrophils/100 WBC (Bld) 83.6 % Normal [facility] Comment on above: Order Comment: Speci men Type: BLOOD SPECIMENOrdering Facility: [facility] Address: [address] [place] [address] Performed By: #### 5 7021-8 ####[facility] LABCLIA [id number] [place] [address] Nucleated RBC (Bld) [#/Vol] 10*3/uL Normal <0.01 [facility] Comment on above: Order Comment: Speci men Type: BLOOD SPECIMENOrdering Facility: [facility] Address: [address] [place] [address] Performed By: #### 5 7021-8 ####[facility] LABCLIA [id number] [place] [address] Nucleated RBC/100 WBC (Bld) [Ratio] 0.0 /100 WBC Normal [facility] Comment on above: Order Comment: Speci men Type: BLOOD SPECIMENOrdering Facility: [facility] Address: [address] [place] [address] Performed By: #### 5 7021-8 ####[facility] LABCLIA [id number] [place] [address] Platelet mean volume (Bld) [Entitic vol] 10.4 fL Normal 9.0-12.7 [facility] Comment on above: Order Comment: Speci men Type: BLOOD SPECIMENOrdering Facility: [facility] Address: [address] [place] [address] Performed By: #### 5 7021-8 ####[facility] LABCLIA [id number] [place] [address] Platelets (Bld) [#/Vol] 189 10*3/uL Normal 150-400 [facility] Comment on above: Order Comment: Speci men Type: BLOOD SPECIMENOrdering Facility: [facility] Address: [address] [place] [address] Performed By: #### 5 7021-8 ####[facility] LABCLIA [id number] [place] [address] RBC (Bld) [#/Vol] 3.47 10*6/uL Low 3.90-5.20 [facility] Comment on above: Order Comment: Speci men Type: BLOOD SPECIMENOrdering Facility: [facility] Address: [address] [place] [address] Performed By: #### 5 7021-8 ####[facility] LABIA [id number] [place] [address] WBC (Bld) [#/Vol] 10.86 10*3/uL Normal 3.70-11.00 [facility] Comment on above: Order Comment: Speci men Type: BLOOD SPECIMENOrdering Facility: [facility] Address: [address] [place] [address] Performed By: #### 5 7021-8 ####[facility] LABIA [id number] [place] [address] CNOVSPon 05-04-2023 CNOVSP Normal [facility] Comprehensive metabolic 2000 panelon 05-04-2023 Albumin [Mass/Vol] 4.2 g/dL Normal 3.9-4.9 [facility] Comment on above: Order Comment: Speci men Type: BLOOD SPECIMENOrdering Facility: [facility] Address: [address] [place] [address] Performed By: #### 2 4323-8 ####[facility] LABCLIA [id number] [place] [address] ALP [Catalytic activity/Vol] 39 U/L Normal 34-123 [facility] Comment on above: Order Comment: Speci men Type: BLOOD SPECIMENOrdering Facility: [facility] Address: [address] [place] [address] Performed By: #### 2 4323-8 ####[facility] LABCLIA [id number] [place] [address] ALT [Catalytic activity/Vol] 12 U/L Normal 7-38 [facility] Comment on above: Order Comment: Speci men Type: BLOOD SPECIMENOrdering Facility: [facility] Address: [address] [place] [address] Performed By: #### 2 4323-8 ####[facility] LABCLIA [id number] [place] [address] Anion gap [Moles/Vol] 11 mmol/L Normal 9-18 [facility] Comment on above: Order Comment: Speci men Type: BLOOD SPECIMENOrdering Facility: [facility] Address: [address] [place] [address] Performed By: #### 2 4323-8 ####[facility] LABCLIA [id number] [place] [address] AST [Catalytic activity/Vol] 11 U/L Low 13-35 [facility] Comment on above: Order Comment: Speci men Type: BLOOD SPECIMENOrdering Facility: [facility] Address: [address] [place] [address] Performed By: #### 2 4323-8 ####[facility] LABCLIA [id number] [place] [address] Bilirubin [Mass/Vol] 0.3 mg/dL Normal 0.2-1.3 [facility] Comment on above: Order Comment: Speci men Type: BLOOD SPECIMENOrdering Facility: [facility] Address: [address] [place] [address] Performed By: #### 2 4323-8 ####[facility] LABCLIA [id number] [place] [address] Calcium [Mass/Vol] 10.0 mg/dL Normal 8.5-10.2 [facility] Comment on above: Order Comment: Speci men Type: BLOOD SPECIMENOrdering Facility: [facility] Address: [address] [place] [address] Result Comment: LO PENALOZA JT Performed By: #### 2 4323-8 ####[facility] LABCLIA [id number] [place] [address] Chloride [Moles/Vol] 105 mmol/L Normal 97-105 [facility] Comment on above: Order Comment: Speci men Type: BLOOD SPECIMENOrdering Facility: [facility] Address: [address] [place] [address] Performed By: #### 2 4323-8 ####[facility] LABCLIA [id number] [place] [address] CO2 [Moles/Vol] 28 mmol/L Normal 22-30 [facility] Comment on above: Order Comment: Speci men Type: BLOOD SPECIMENOrdering Facility: [facility] Address: [address] [place] [address] Performed By: #### 2 4323-8 ####[facility] LABCLIA [id number] [place] [address] Creatinine [Mass/Vol] 0.79 mg/dL Normal 0.58-0.96 [facility] Comment on above: Order Comment: Speci men Type: BLOOD SPECIMENOrdering Facility: [facility] Address: [address] [place] [address] Performed By: #### 2 4323-8 ####[facility] LABCLIA [id number] [place] [address] Creatinine and Glomerular filtration rate.predicted panel (S/P/Bld) 76 mL/min/1.73m??? Normal >=60 [facility] Comment on above: Order Comment: Speci men Type: BLOOD SPECIMENOrdering Facility: [facility] Address: [address] [place] [address] Result Comment: Kim mated Glomerular Filtration Rate [...] actual GFR. Performed By: #### 2 4323-8 ####[facility] LABCLIA [id number] [place] [address] Glucose [Mass/Vol] 84 mg/dL Normal 74-99 [facility] Comment on above: Order Comment: Speci men Type: BLOOD SPECIMENOrdering Facility: [facility] Address: [address] [place] [address] Result Comment: The [place] [employer] (ADA) provides guidance for cutoff [...] Standards of Medical Care in Diabetes 2016, [place] [employer]. Diabetes Care. 2016.39(Suppl 1). Performed By: #### 2 4323-8 ####[facility] LABCLIA [id number] [place] [address] Potassium [Moles/Vol] 3.3 mmol/L Low 3.7-5.1 [facility] Comment on above: Order Comment: Speci men Type: BLOOD SPECIMENOrdering Facility: [facility] Address: [address] [place] [address] Performed By: #### 2 4323-8 ####[facility] LABCLIA [id number] [place] [address] Protein [Mass/Vol] 6.1 g/dL Low 6.3-8.0 [facility] Comment on above: Order Comment: Speci men Type: BLOOD SPECIMENOrdering Facility: [facility] Address: [address] [place] [place] [id number] Performed By: #### 2 4323-8 ####[facility] LABCLIA [id number] [place] [address] Sodium [Moles/Vol] 144 mmol/L Normal 136-144 [facility] Comment on above: Order Comment: Speci men Type: BLOOD SPECIMENOrdering Facility: [facility] Address: [address] [place] [address] Performed By: #### 2 4323-8 ####[facility] LABCLIA [id number] [place] [address] Urea nitrogen [Mass/Vol] 33 mg/dL High 7-21 [facility] Comment on above: Order Comment: Speci men Type: BLOOD SPECIMENOrdering Facility: [facility] Address: [address] [place] [address] Performed By: #### 2 4323-8 ####[facility] LABCLIA [id number] [place] [address] [place] LEG VEIN DVT VIVIENNE VAS LABo n 04-13-2023 US LEG VEIN DVT VIVIENNE VAS LAB Normal [facility] CNPNon 04-09-2023 CNPN Normal [facility] CBC W Auto Differential pane l (Bld)on 04-04-2023 Anisocytosis Ql (Bld) Present Normal [facility] Comment on above: Order Comment: Speci men Type: BLOOD SPECIMENOrdering Facility: [facility] Address: [address] [place] [id number] Performed By: #### 5 7021-8 ####[facility] LABCLIA [id number] [place], [place] [address] LABCL[facility] [id number] [place] [address] [place] Basophils (Bld) [#/Vol] 0.00 10*3/uL Normal <0.11 [facility] Comment on above: Order Comment: Speci men Type: BLOOD SPECIMENOrdering Facility: [facility] Address: [address] [place] [address] Performed By: #### 5 7021-8 ####[facility] LABCLIA [id number] [address] LABCLIA [id number] [place] [address] [place] Basophils/100 WBC (Bld) 0.0 % Normal [facility] Comment on above: Order Comment: Speci men Type: BLOOD SPECIMENOrdering Facility: [facility] Address: [address] [place] [address] Performed By: #### 5 7021-8 ####[facility] LABCLIA [id number] [address] LABCLIA [id number] [place] [address] [place] Dacrocytes LM Ql (Bld) Few Normal Cl [facility] Comment on above: Order Comment: Speci men Type: BLOOD SPECIMENOrdering Facility: [facility] Address: [address] [place] [address] Performed By: #### 5 7021-8 ####[facility] LABCLIA [id number] [address] LABCLIA [id number] [place] [address] [place] Differential cell count method Nom (Bld) Manual Normal [facility] Comment on above: Order Comment: Speci men Type: BLOOD SPECIMENOrdering Facility: [facility] Address: [address] [place] [address] Performed By: #### 5 7021-8 ####[facility] LABCLIA [id number] [address] LABCLIA [id number] [place] [address] [place] Eosinophils (Bld) [#/Vol] 0.00 10*3/uL Normal <0.46 [facility] Comment on above: Order Comment: Speci men Type: BLOOD SPECIMENOrdering Facility: [facility] Address: [address] [place] [address] Performed By: #### 5 7021-8 ####[facility] LABCLIA [id number] [address] LABCLIA [id number] [place] [address] [place] Eosinophils/100 WBC (Bld) 0.0 % Normal [facility] Comment on above: Order Comment: Speci men Type: BLOOD SPECIMENOrdering Facility: [facility] Address: [address] [place], [place] [id number] Performed By: #### 5 7021-8 ####[facility] LABCLIA [id number] [address] LABCLIA [id number] [place] [address] [place] Erythrocyte distribution width (RBC) [Ratio] 15.2 % High 11.5-15.0 [facility] Comment on above: Order Comment: Speci men Type: BLOOD SPECIMENOrdering Facility: [facility] Address: [address] Performed By: #### 5 7021-8 ####[facility] LABCLIA [id number] [address] LABCLIA [id number] [place] [address] [place] Hematocrit (Bld) [Volume fraction] 34.4 % Low 36.0-46.0 [facility] Comment on above: Order Comment: Speci men Type: BLOOD SPECIMENOrdering Facility: [facility] Address: [address] [place] [address] Performed By: #### 5 7021-8 ####[facility] LABCLIA [id number] [address] LABCLIA [id number] [place] [address] [place] Hemoglobin (Bld) [Mass/Vol] 11.3 g/dL Low 11.5-15.5 [facility] Comment on above: Order Comment: Speci men Type: BLOOD SPECIMENOrdering Facility: [facility] Address: [address] [place] [address] Performed By: #### 5 7021-8 ####[facility] LABCLIA [id number] [address] LABCLIA [id number] [place] [address] [place] Lymphocytes (Bld) [#/Vol] 0.16 10*3/uL Low 1.00-4.00 [facility] Comment on above: Order Comment: Speci men Type: BLOOD SPECIMENOrdering Facility: [facility] Address: [address] [place] [address] Performed By: #### 5 7021-8 ####[facility] LABCLIA [id number] [address] LABCLIA [id number] [place] [address] [place] Lymphocytes/100 WBC (Bld) 1.7 % Normal [facility] Comment on above: Order Comment: Speci men Type: BLOOD SPECIMENOrdering Facility: [facility] Address: [address] [place] [address] Performed By: #### 5 7021-8 ####[facility] LABCLIA [id number] [place] [id number] LABCLIA [id number] [place] [address] [place] MCH (RBC) [Entitic mass] 32.6 pg Normal 26.0-34.0 [facility] Comment on above: Order Comment: Speci men Type: BLOOD SPECIMENOrdering Facility: [facility] Address: [address] [place] [address] Performed By: #### 5 7021-8 ####[facility] LABCLIA [id number] [address] LABCLIA [id number] [place] [address] [place] MCHC (RBC) [Mass/Vol] 32.8 g/dL Normal 30.5-36.0 [facility] Comment on above: Order Comment: Speci men Type: BLOOD SPECIMENOrdering Facility: [facility] Address: [address] [place], [place] [address] Performed By: #### 5 7021-8 ####[facility] LABCLIA [id number] [address] LABCLIA [id number] [place] [address] [place] MCV (RBC) [Entitic vol] 99.1 fL Normal 80.0-100.0 [facility] Comment on above: Order Comment: Speci men Type: BLOOD SPECIMENOrdering Facility: [facility] Address: [address] [place], [place] [address] Performed By: #### 5 7021-8 ####[facility] LABCLIA [id number] [address] LABCLIA [id number] [place] [address] [place] Metamyelocytes/100 WBC (Bld) 1.7 % Normal [facility] Comment on above: Order Comment: Speci men Type: BLOOD SPECIMENOrdering Facility: [facility] Address: [address] [place] [address] Performed By: #### 5 7021-8 ####[facility] LABCLIA [id number] [address] LABCLIA [id number] [place] [address] [place] Monocytes (Bld) [#/Vol] 0.16 10*3/uL Normal <0.87 [facility] Comment on above: Order Comment: Speci men Type: BLOOD SPECIMENOrdering Facility: [facility] Address: [address] [place] [address] Performed By: #### 5 7021-8 ####[facility] LABCLIA [id number] [address] LABCLIA [id number] [place] [address] [place] Monocytes/100 WBC (Bld) 1.7 % Normal [facility] Comment on above: Order Comment: Speci men Type: BLOOD SPECIMENOrdering Facility: [facility] Address: [address] [place] [address] Performed By: #### 5 7021-8 ####[facility] LABCLIA [id number] [address] LABCLIA [id number] [place] [address] [place] Neutrophils (Bld) [#/Vol] 9.14 10*3/uL High 1.45-7.50 [facility] Comment on above: Order Comment: Speci men Type: BLOOD SPECIMENOrdering Facility: [facility] Address: [address] [place] [address] Performed By: #### 5 7021-8 ####[facility] LABCLIA [id number] [place] [id number] LABCLIA [id number] [place] [address] [place] Neutrophils/100 WBC (Bld) 94.9 % Normal [facility] Comment on above: Order Comment: Speci men Type: BLOOD SPECIMENOrdering Facility: [facility] Address: [address] [place] [address] Performed By: #### 5 7021-8 ####[facility] LABCLIA [id number] [address] LABCLIA [id number] [place] [address] [place] Nucleated RBC (Bld) [#/Vol] 10*3/uL Normal <0.01 [facility] Comment on above: Order Comment: Speci men Type: BLOOD SPECIMENOrdering Facility: [facility] Address: [address] [place] [address] Performed By: #### 5 7021-8 ####[facility] LABCLIA [id number] [address] LABCLIA [id number] [place] [address] [place] Nucleated RBC/100 WBC (Bld) [Ratio] 0.0 /100 WBC Normal [facility] Comment on above: Order Comment: Speci men Type: BLOOD SPECIMENOrdering Facility: [facility] Address: [address] [place] [address] Performed By: #### 5 7021-8 ####[facility] LABCLIA [id number] [address] LABCLIA [id number] [place] [address] [place] Ovalocytes LM Ql (Bld) Few Normal [facility] Comment on above: Order Comment: Speci men Type: BLOOD SPECIMENOrdering Facility: [facility] Address: [address] [place] [address] Performed By: #### 5 7021-8 ####[facility] LABCLIA [id number] [address] LABCLIA [id number] [place] [address] [place] Platelet mean volume (Bld) [Entitic vol] 10.0 fL Normal 9.0-12.7 [facility] Comment on above: Order Comment: Speci men Type: BLOOD SPECIMENOrdering Facility: [facility] Address: [address] [place] [address] Performed By: #### 5 7021-8 ####[facility] LABCLIA [id number] [address] LABCLIA [id number] [place] [address] [place] Platelets (Bld) [#/Vol] 196 10*3/uL Normal 150-400 [facility] Comment on above: Order Comment: Speci men Type: BLOOD SPECIMENOrdering Facility: [facility] Address: [address] [place] [address] Performed By: #### 5 7021-8 ####[facility] LABCLIA [id number] [address] LABCLIA [id number] [place] [address] [place] Platelets Estimate (Bld) [#/Vol] Adequate Normal [facility] Comment on above: Order Comment: Speci men Type: BLOOD SPECIMENOrdering Facility: [facility] Address: [address] [place], [place] [address] Performed By: #### 5 7021-8 ####[facility] LABCLIA [id number] [address] LABCLIA [id number] [place] [address] [place] Polychromasia LM Ql (Bld) Slight Normal [facility] Comment on above: Order Comment: Speci men Type: BLOOD SPECIMENOrdering Facility: [facility] Address: [address] [place] [address] Performed By: #### 5 7021-8 ####[facility] LABCLIA [id number] [address] LABCLIA [id number] [place] [address] [place] RBC (Bld) [#/Vol] 3.47 10*6/uL Low 3.90-5.20 [facility] Comment on above: Order Comment: Speci men Type: BLOOD SPECIMENOrdering Facility: [facility] Address: [address] [place] [address] Performed By: #### 5 7021-8 ####[facility] LABCLIA [id number] [address] LABCLIA [id number] [place] [address] [place] RED CELL MORPH Reviewed: see result s of individual morphologies Normal [facility] Comment on above: Order Comment: Speci men Type: BLOOD SPECIMENOrdering Facility: [facility] Address: [address] [place], [place] [address] Performed By: #### 5 7021-8 ####[facility] LABCLIA [id number] [address] LABCLIA [id number] [place] [address] [place] WBC (Bld) [#/Vol] 9.63 10*3/uL Normal 3.70-11.00 [facility] Comment on above: Order Comment: Speci men Type: BLOOD SPECIMENOrdering Facility: [facility] Address: [address] Performed By: #### 5 7021-8 ####[facility] LABCLIA [id number] [place], [place] [address] LABCLIA [id number] [place] [address] [place] WBC Left Shift Ql (Bld) Present [facility] Comment on above: Order Comment: Speci men Type: BLOOD SPECIMENOrdering Facility: [facility] Address: [address] [place] [address] Performed By: #### 5 7021-8 ####[facility] LABCLIA [id number] [place] [id number] LABCLIA [id number] [place] [address] [place] CNOVSPon 04-04-2023 CNOVSP Normal [facility] Comprehensive metabolic 2000 panelon 04-04-2023 Albumin [Mass/Vol] 4.0 g/dL Normal 3.9-4.9 [facility] Comment on above: Order Comment: Speci men Type: BLOOD SPECIMENOrdering Facility: [facility] Address: [address] [place] [address] Performed By: #### 2 4323-8 ####[facility] LABCLIA [id number] [place] [address] ALP [Catalytic activity/Vol] 41 U/L Normal 34-123 [facility] Comment on above: Order Comment: Speci men Type: BLOOD SPECIMENOrdering Facility: [facility] Address: [address] [place], [place] [address] Performed By: #### 2 4323-8 ####[facility] LABCLIA [id number] [place] [address] ALT [Catalytic activity/Vol] 17 U/L Normal 7-38 [facility] Comment on above: Order Comment: Speci men Type: BLOOD SPECIMENOrdering Facility: [facility] Address: [address] [place] [address] Performed By: #### 2 4323-8 ####[facility] LABCLIA [id number] [place] [address] Anion gap [Moles/Vol] 15 mmol/L Normal 9-18 [facility] Comment on above: Order Comment: Speci men Type: BLOOD SPECIMENOrdering Facility: [facility] Address: [address] [place] [address] Performed By: #### 2 4323-8 ####[facility] LABCLIA [id number] [place] [address] AST [Catalytic activity/Vol] 11 U/L Low 13-35 [facility] Comment on above: Order Comment: Speci men Type: BLOOD SPECIMENOrdering Facility: [facility] Address: [address] [place] [address] Performed By: #### 2 4323-8 ####[facility] LABCLIA [id number] [place] [address] Bilirubin [Mass/Vol] 0.3 mg/dL Normal 0.2-1.3 [facility] Comment on above: Order Comment: Speci men Type: BLOOD SPECIMENOrdering Facility: [facility] Address: [address] [place] [address] Performed By: #### 2 4323-8 ####[facility] LABCLIA [id number] [place] [address] Calcium [Mass/Vol] 9.1 mg/dL Normal 8.5-10.2 [facility] Comment on above: Order Comment: Speci men Type: BLOOD SPECIMENOrdering Facility: [facility] Address: [address] [place] [address] Performed By: #### 2 4323-8 ####[facility] LABCLIA [id number] [place] [address] Chloride [Moles/Vol] 106 mmol/L High 97-105 [facility] Comment on above: Order Comment: Speci men Type: BLOOD SPECIMENOrdering Facility: [facility] Address: [address] [place] [address] Performed By: #### 2 4323-8 ####[facility] LABCLIA [id number] [place] [address] CO2 [Moles/Vol] 21 mmol/L Low 22-30 [facility] Comment on above: Order Comment: Speci men Type: BLOOD SPECIMENOrdering Facility: [facility] Address: [address] [place] [address] Performed By: #### 2 4323-8 ####[facility] LABCLIA [id number] [place] [address] Creatinine [Mass/Vol] 0.99 mg/dL High 0.58-0.96 [facility] Comment on above: Order Comment: Speci men Type: BLOOD SPECIMENOrdering Facility: [facility] Address: [address] [place] [address] Performed By: #### 2 4323-8 ####[facility] LABCLIA [id number] [place] [address] Creatinine and Glomerular filtration rate.predicted panel (S/P/Bld) 58 mL/min/1.73m??? Low >=60 [facility] Comment on above: Order Comment: Speci men Type: BLOOD SPECIMENOrdering Facility: [facility] Address: [address] [place] [address] Result Comment: Kim mated Glomerular Filtration Rate [...] actual GFR. Performed By: #### 2 4323-8 ####[facility] LABCLIA [id number] [place] [address] Glucose [Mass/Vol] 145 mg/dL High 74-99 [facility] Comment on above: Order Comment: Speci men Type: BLOOD SPECIMENOrdering Facility: [facility] Address: [address] [place] [address] Result Comment: The [place] [employer] (ADA) provides guidance for cutoff [...] Standards of Medical Care in Diabetes 2016, [place] [employer]. Diabetes Care. 2016.39(Suppl 1). Performed By: #### 2 4323-8 ####[facility] LABCLIA [id number] [place] [address] Potassium [Moles/Vol] 4.1 mmol/L Normal 3.7-5.1 [facility] Comment on above: Order Comment: Speci men Type: BLOOD SPECIMENOrdering Facility: [facility] Address: [address] [place] [address] Performed By: #### 2 4323-8 ####[facility] LABCLIA [id number] [place] [address] Protein [Mass/Vol] 5.9 g/dL Low 6.3-8.0 [facility] Comment on above: Order Comment: Speci men Type: BLOOD SPECIMENOrdering Facility: [facility] Address: [address] [place] [address] Performed By: #### 2 4323-8 ####[facility] LABCLIA [id number] [place] [address] Sodium [Moles/Vol] 142 mmol/L Normal 136-144 [facility] Comment on above: Order Comment: Speci men Type: BLOOD SPECIMENOrdering Facility: [facility] Address: [address] [place] [address] Performed By: #### 2 4323-8 ####[facility] LABCLIA [id number] [place] [address] Urea nitrogen [Mass/Vol] 32 mg/dL High 7-21 [facility] Comment on above: Order Comment: Speci men Type: BLOOD SPECIMENOrdering Facility: [facility] Address: [address] [place] [address] Performed By: #### 2 4323-8 ####[facility] LABCLIA [id number] [place] [address] CNPNon 03-30-2023 CNPN Normal [facility] CNPNon 03-22-2023 CNPN Normal [facility] CNPNon 03-13-2023 CNPN Normal [facility] CBC W Auto Differential pane l (Bld)on 03-07-2023 Anisocytosis Ql (Bld) Present Normal [facility] Comment on above: Order Comment: Speci men Type: BLOOD SPECIMENOrdering Facility: [facility] Address: [address] [place] [address] Performed By: #### 5 7021-8 ####[facility] LABCLIA [id number] [place], [place] [address] LABCLIA [id number] [facility] [id number] [id number] [place] Basophils (Bld) [#/Vol] 0.00 10*3/uL Normal <0.11 [facility] Comment on above: Order Comment: Speci men Type: BLOOD SPECIMENOrdering Facility: [facility] Address: [address] [place] [address] Performed By: #### 5 7021-8 ####[facility] LABCLIA [id number] [address] LABCLIA [id number] [place] [address] [place] Basophils/100 WBC (Bld) 0.0 % Normal [facility] Comment on above: Order Comment: Speci men Type: BLOOD SPECIMENOrdering Facility: [facility] Address: [address] [place] [address] Performed By: #### 5 7021-8 ####[facility] LABCLIA [id number] [address] LABCLIA [id number] [place] [address] [place] Differential cell count method Nom (Bld) Manual Normal [facility] Comment on above: Order Comment: Speci men Type: BLOOD SPECIMENOrdering Facility: [facility] Address: [address] [place] [address] Performed By: #### 5 7021-8 ####[facility] LABCLIA [id number] [address] LABCLIA [id number] [place] [address] [place] Eosinophils (Bld) [#/Vol] 0.00 10*3/uL Normal <0.46 [facility] Comment on above: Order Comment: Speci men Type: BLOOD SPECIMENOrdering Facility: [facility] Address: [address] [place] [address] Performed By: #### 5 7021-8 ####[facility] LABCLIA [id number] [address] LABCLIA [id number] [place] [address] [place] Eosinophils/100 WBC (Bld) 0.0 % Normal [facility] Comment on above: Order Comment: Speci men Type: BLOOD SPECIMENOrdering Facility: [facility] Address: [address] [place] [address] Performed By: #### 5 7021-8 ####[facility] LABCLIA [id number] [address] LABCLIA [id number] [place] [address] [place] Erythrocyte distribution width (RBC) [Ratio] 15.2 % High 11.5-15.0 [facility] Comment on above: Order Comment: Speci men Type: BLOOD SPECIMENOrdering Facility: [facility] Address: [address] [place] [address] Performed By: #### 5 7021-8 ####[facility] LABCLIA [id number] [address] LABCLIA [id number] [place] [address] [place] Hematocrit (Bld) [Volume fraction] 33.0 % Low 36.0-46.0 [facility] Comment on above: Order Comment: Speci men Type: BLOOD SPECIMENOrdering Facility: [facility] Address: [address] [place] [address] Performed By: #### 5 7021-8 ####[facility] LABCLIA [id number] [address] LABCLIA [id number] [place] [address] [place] Hemoglobin (Bld) [Mass/Vol] 10.8 g/dL Low 11.5-15.5 [facility] Comment on above: Order Comment: Speci men Type: BLOOD SPECIMENOrdering Facility: [facility] Address: [address] [place] [address] Performed By: #### 5 7021-8 ####[facility] LABCLIA [id number] [address] LABCLIA [id number] [place] [address] [place] Lymphocytes (Bld) [#/Vol] 0.17 10*3/uL Low 1.00-4.00 [facility] Comment on above: Order Comment: Speci men Type: BLOOD SPECIMENOrdering Facility: [facility] Address: [address] [place] [address] Performed By: #### 5 7021-8 ####[facility] LABCLIA [id number] [address] LABCLIA [id number] [place] [address] [place] Lymphocytes/100 WBC (Bld) 1.7 % Normal [facility] Comment on above: Order Comment: Speci men Type: BLOOD SPECIMENOrdering Facility: [facility] Address: [address] [place] [address] Performed By: #### 5 7021-8 ####[facility] LABCLIA [id number] [address] LABCLIA [id number] [place] [address] [place] MCH (RBC) [Entitic mass] 33.1 pg Normal 26.0-34.0 [facility] Comment on above: Order Comment: Speci men Type: BLOOD SPECIMENOrdering Facility: [facility] Address: [address] [place], [place] [address] Performed By: #### 5 7021-8 ####[facility] LABCLIA [id number] [address] LABCLIA [id number] [place] [address] [place] MCHC (RBC) [Mass/Vol] 32.7 g/dL Normal 30.5-36.0 [facility] Comment on above: Order Comment: Speci men Type: BLOOD SPECIMENOrdering Facility: [facility] Address: [address] [place] [address] Performed By: #### 5 7021-8 ####[facility] LABCLIA [id number] [address] LABCLIA [id number] [place] [address] [place] MCV (RBC) [Entitic vol] 101.2 fL High 80.0-100.0 [facility] Comment on above: Order Comment: Speci men Type: BLOOD SPECIMENOrdering Facility: [facility] Address: [address] [place] [address] Performed By: #### 5 7021-8 ####[facility] LABCLIA [id number] [address] LABCLIA [id number] [place] [address] [place] Monocytes (Bld) [#/Vol] 0.26 10*3/uL Normal <0.87 [facility] Comment on above: Order Comment: Speci men Type: BLOOD SPECIMENOrdering Facility: [facility] Address: [address] [place] [address] Performed By: #### 5 7021-8 ####[facility] LABCLIA [id number] [address] LABCLIA [id number] [place] [address] [place] Monocytes/100 WBC (Bld) 2.6 % Normal [facility] Comment on above: Order Comment: Speci men Type: BLOOD SPECIMENOrdering Facility: [facility] Address: [address] [place] [address] Performed By: #### 5 7021-8 ####[facility] LABCLIA [id number] [place] [id number] LABCLIA [id number] [place] [address] [place] MYELO% 0.9 % Normal [facility] Comment on above: Order Comment: Speci men Type: BLOOD SPECIMENOrdering Facility: [facility] Address: [address] [place] [address] Performed By: #### 5 7021-8 ####[facility] LABCLIA [id number] [address] LABCLIA [id number] [place] [address] [place] Neutrophils (Bld) [#/Vol] 9.49 10*3/uL High 1.45-7.50 [facility] Comment on above: Order Comment: Speci men Type: BLOOD SPECIMENOrdering Facility: [facility] Address: [address] [place] [address] Performed By: #### 5 7021-8 ####[facility] LABCLIA [id number] [address] LABCLIA [id number] [place] [address] [place] Neutrophils/100 WBC (Bld) 94.8 % Normal [facility] Comment on above: Order Comment: Speci men Type: BLOOD SPECIMENOrdering Facility: [facility] Address: [address] [place] [address] Performed By: #### 5 7021-8 ####[facility] LABCLIA [id number] [address] LABCLIA [id number] [place] [address] [place] Nucleated RBC (Bld) [#/Vol] 10*3/uL Normal <0.01 [facility] Comment on above: Order Comment: Speci men Type: BLOOD SPECIMENOrdering Facility: [facility] Address: [facility] [address] Performed By: #### 5 7021-8 ####[facility] [facility] LABCLIA [id number] [address] LABCLIA [id number] [place] [address] [place] Nucleated RBC/100 WBC (Bld) [Ratio] 0.0 /100 WBC Normal [facility] Comment on above: Order Comment: Speci men Type: BLOOD SPECIMENOrdering Facility: [facility] Address: [address] Performed By: #### 5 7021-8 ####[facility] LABCLIA [id number] [address] LABCLIA [id number] [place] [address] [place] Ovalocytes LM Ql (Bld) Few Normal [facility] Comment on above: Order Comment: Speci men Type: BLOOD SPECIMENOrdering Facility: [facility] Address: [address] Performed By: #### 5 7021-8 ####[facility] LABCLIA [id number] [address] LABCLIA [id number] [place] [address] [place] Platelet mean volume (Bld) [Entitic vol] 10.2 fL Normal 9.0-12.7 [facility] Comment on above: Order Comment: Speci men Type: BLOOD SPECIMENOrdering Facility: [facility] Address: [address] Performed By: #### 5 7021-8 ####[facility] LABCLIA [id number] [address] LABCLIA [id number] [place] [address] [place] Platelets (Bld) [#/Vol] 201 10*3/uL Normal 150-400 [facility] Comment on above: Order Comment: Speci men Type: BLOOD SPECIMENOrdering Facility: [facility] Address: [address] [place] [address] Performed By: #### 5 7021-8 ####[facility] LABCLIA [id number] [address] LABCLIA [id number] [place] [address] [place] Platelets Estimate (Bld) [#/Vol] Adequate Normal [facility] Comment on above: Order Comment: Speci men Type: BLOOD SPECIMENOrdering Facility: [facility] Address: [address] [place] [address] Performed By: #### 5 7021-8 ####[facility] LABCLIA [id number] [address] LABCLIA [id number] [place] [address] [place] Polychromasia LM Ql (Bld) Slight Normal [facility] Comment on above: Order Comment: Speci men Type: BLOOD SPECIMENOrdering Facility: [facility] Address: [address] [place], [place] [address] Performed By: #### 5 7021-8 ####[facility] LABCLIA [id number] [address] LABCLIA [id number] [place] [address] [place] RBC (Bld) [#/Vol] 3.26 10*6/uL Low 3.90-5.20 [facility] Comment on above: Order Comment: Speci men Type: BLOOD SPECIMENOrdering Facility: [facility] Address: [address] [place], [place] [address] Performed By: #### 5 7021-8 ####[facility] LABCLIA [id number] [address] LABCLIA [id number] [place] [address] [place] RED CELL MORPH Reviewed: see result s of individual morphologies Normal [facility] Comment on above: Order Comment: Speci men Type: BLOOD SPECIMENOrdering Facility: [facility] Address: [address] [place] [address] Performed By: #### 5 7021-8 ####[facility] LABCLIA [id number] [address] LABCLIA [id number] [place] [address] [place] WBC (Bld) [#/Vol] 10.01 10*3/uL Normal 3.70-11.00 [facility] Comment on above: Order Comment: Speci men Type: BLOOD SPECIMENOrdering Facility: [facility] Address: [address] [place] [address] Performed By: #### 5 7021-8 ####[facility] LABCLIA [id number] [address] LABCLIA [id number] [place] [address] [place] WBC Left Shift Ql (Bld) Present Normal [facility] Comment on above: Order Comment: Speci men Type: BLOOD SPECIMENOrdering Facility: [facility] Address: [address] [place] [address] Performed By: #### 5 7021-8 ####[facility] LABCLIA [id number] [address] LABCLIA [id number] [place] [address] [place] CNOVSPon 03-07-2023 CNOVSP Normal [facility] Comprehensive metabolic 2000 panelon 03-07-2023 Albumin [Mass/Vol] 4.1 g/dL Normal 3.9-4.9 [facility] Comment on above: Order Comment: Speci men Type: BLOOD SPECIMENOrdering Facility: [facility] Address: [address] [place] [address] Performed By: #### 2 4323-8 ####[facility] LABCLIA [id number] [place] [address] [place] ALP [Catalytic activity/Vol] 39 U/L Normal 34-123 [facility] Comment on above: Order Comment: Speci men Type: BLOOD SPECIMENOrdering Facility: [facility] Address: [address] [place] [address] Performed By: #### 2 4323-8 ####[facility] LABCLIA [id number] [place] [address] [place] ALT [Catalytic activity/Vol] 15 U/L Normal 7-38 [facility] Comment on above: Order Comment: Speci men Type: BLOOD SPECIMENOrdering Facility: [facility] Address: [address] [place] [address] Performed By: #### 2 4323-8 ####[facility] LABCLIA [id number] [place] [address] [place] Anion gap [Moles/Vol] 13 mmol/L Normal 9-18 [facility] Comment on above: Order Comment: Speci men Type: BLOOD SPECIMENOrdering Facility: [facility] Address: [address] [place] [address] Performed By: #### 2 4323-8 ####[facility] LABCLIA [id number] [place] [address] [place] AST [Catalytic activity/Vol] 14 U/L Normal 13-35 [facility] Comment on above: Order Comment: Speci men Type: BLOOD SPECIMENOrdering Facility: [facility] Address: [address] Performed By: #### 2 4323-8 ####[facility] LABCLIA [id number] [place] [address] [place] Bilirubin [Mass/Vol] 0.3 mg/dL Normal 0.2-1.3 [facility] Comment on above: Order Comment: Speci men Type: BLOOD SPECIMENOrdering Facility: [facility] Address: [address] Performed By: #### 2 4323-8 ####[facility] LABCLIA [id number] [place] [address] [place] Calcium [Mass/Vol] 9.6 mg/dL Normal 8.5-10.2 [facility] Comment on above: Order Comment: Speci men Type: BLOOD SPECIMENOrdering Facility: [facility] Address: [address] Performed By: #### 2 4323-8 ####[facility] LABCLIA [id number] [place] [address] [place] Chloride [Moles/Vol] 100 mmol/L Normal 97-105 [facility] Comment on above: Order Comment: Speci men Type: BLOOD SPECIMENOrdering Facility: [facility] Address: [address] Performed By: #### 2 4323-8 ####[facility] LABCLIA [id number] [place] [address] [place] CO2 [Moles/Vol] 25 mmol/L Normal 22-30 [facility] Comment on above: Order Comment: Speci men Type: BLOOD SPECIMENOrdering Facility: [facility] Address: [address] Performed By: #### 2 4323-8 ####[facility] LABCLIA [id number] [address] OF [facility] Creatinine [Mass/Vol] 0.94 mg/dL Normal 0.58-0.96 [facility] Comment on above: Order Comment: Kurt barraza Type: BLOOD SPECIMENOrdering Facility: [facility] Address: [address] [address] Performed By: #### 2 4323-8 ####[facility] LABIA [id number] [address] Creatinine and Glomerular filtration rate.predicted panel (S/P/Bld) 61 mL/min/1.73m??? Normal >=60 [facility] Comment on above: Order Comment: Kurt barraza Type: BLOOD SPECIMENOrdering Facility: [facility] Address: [address] [place] [address] Result Comment: Kim mated Glomerular Filtration Rate [...] actual GFR. Performed By: #### 2 4323-8 ####[facility] LABIA [id number] [address] [place] Glucose [Mass/Vol] 139 mg/dL High 74-99 [facility] Comment on above: Order Comment: Kurt barraza Type: BLOOD SPECIMENOrdering Facility: [facility] Address: [address] [address] Result Comment: The [place] [employer] (ADA) provides guidance for cutoff [...] Standards of Medical Care in Diabetes 2016, [place] [employer]. Diabetes Care. 2016.39(Suppl 1). Performed By: #### 2 4323-8 ####[facility] LABCLIA [id number] [place] [address] [place] Potassium [Moles/Vol] 4.2 mmol/L Normal 3.7-5.1 [facility] Comment on above: Order Comment: Speci men Type: BLOOD SPECIMENOrdering Facility: [facility] Address: [address] [address] Performed By: #### 2 4323-8 ####[facility] LABIA [id number] [place] [address] [place] Protein [Mass/Vol] 6.1 g/dL Low 6.3-8.0 [facility] Comment on above: Order Comment: Speci men Type: BLOOD SPECIMENOrdering Facility: [facility] Address: [address] [address] Performed By: #### 2 4323-8 ####[facility] LABIA [id number] [place] [address] [place] Sodium [Moles/Vol] 138 mmol/L Normal 136-144 [facility] Comment on above: Order Comment: Speci men Type: BLOOD SPECIMENOrdering Facility: [facility] Address: [address] Performed By: #### 2 4323-8 ####[facility] LABIA [id number] [place] [address] [place] Urea nitrogen [Mass/Vol] 37 mg/dL High 7-21 [facility] Comment on above: Order Comment: Speci men Type: BLOOD SPECIMENOrdering Facility: [facility] Address: [address] Performed By: #### 2 4323-8 ####[facility] LABCLIA [id number] [place] [id number] [facility] ALLIED HEALTHon 02-23-2023 ALLIED HEALTH HNO ID: [id number] Author: Tatiana Hill RT(R) Service: Radiology Author [...] DATE: February 23, 2023 TIME: 11:48 AM [facility] MRI BRAIN WO/W IVCONon 02-23 MRI BRAIN WO/W IVCON * * *Final Report* * * DATE OF EXAM: Feb 23 2023 12:06PM [facility] 0295 - MRI BRAIN WO/W IVCON [...] margins of the right parietal resection cavity. [facility] Transcribe Date/Time: Feb 23 2023 12:27P Dictated by : JOSH WOLF MD This examination was interpreted and the report reviewed and electronically signed by: JOSH WOLF MD on Feb 23 2023 12:37PM EST [id number] Normal [facility] CNOVSPon 02-07-2023 CNOVSP Normal [facility] CBC W Auto Differential pane l (Bld)on 01-09-2023 Anisocytosis Ql (Bld) Present Normal [facility] Comment on above: Order Comment: Speci men Type: BLOOD SPECIMENOrdering Facility: [facility] Address: [address] [place] [address] [place] [address] Performed By: #### 5 7021-8 ####[facility] LABCLIA [id number] [address] LABCLIA [id number] [place] [address] [place] Basophils (Bld) [#/Vol] 0.00 10*3/uL Normal <0.11 [facility] Comment on above: Order Comment: Speci men Type: BLOOD SPECIMENOrdering Facility: [facility] Address: [address] Performed By: #### 5 7021-8 ####[facility] LABCLIA [id number] [address] LABCLIA [id number] [place] [address] [place] Basophils/100 WBC (Bld) 0.0 % Normal [facility] Comment on above: Order Comment: Speci men Type: BLOOD SPECIMENOrdering Facility: [facility] Address: [address] Performed By: #### 5 7021-8 ####[facility] LABCLIA [id number] [address] LABCLIA [id number] [place] [address] [place] Differential cell count method Nom (Bld) Manual Normal [facility] Comment on above: Order Comment: Speci men Type: BLOOD SPECIMENOrdering Facility: [facility] Address: [address] [place] [address] Performed By: #### 5 7021-8 ####[facility] LABCLIA [id number] [address] LABCLIA [id number] [place] [address] [place] Eosinophils (Bld) [#/Vol] 0.00 10*3/uL Normal <0.46 [facility] Comment on above: Order Comment: Speci men Type: BLOOD SPECIMENOrdering Facility: [facility] Address: [address] [place] [address] Performed By: #### 5 7021-8 ####[facility] LABCLIA [id number] [address] LABCLIA [id number] [place] [address] [place] Eosinophils/100 WBC (Bld) 0.0 % Normal [facility] Comment on above: Order Comment: Speci men Type: BLOOD SPECIMENOrdering Facility: [facility] Address: [address] [place] [address] Performed By: #### 5 7021-8 ####[facility] LABCLIA [id number] [address] LABCLIA [id number] [place] [address] [place] Erythrocyte distribution width (RBC) [Ratio] 17.1 % High 11.5-15.0 [facility] Comment on above: Order Comment: Speci men Type: BLOOD SPECIMENOrdering Facility: [facility] Address: [address] [place] [address] Performed By: #### 5 7021-8 ####[facility] LABCLIA [id number] [address] LABCLIA [id number] [place] [address] [place] Hematocrit (Bld) [Volume fraction] 31.3 % Low 36.0-46.0 [facility] Comment on above: Order Comment: Speci men Type: BLOOD SPECIMENOrdering Facility: [facility] Address: [address] [place] [address] Performed By: #### 5 7021-8 ####[facility] LABCLIA [id number] [place] [id number] LABCLIA [id number] [place] [address] [place] Hemoglobin (Bld) [Mass/Vol] 10.4 g/dL Low 11.5-15.5 [facility] Comment on above: Order Comment: Speci men Type: BLOOD SPECIMENOrdering Facility: [facility] Address: [address] [place] [address] Performed By: #### 5 7021-8 ####[facility] LABCLIA [id number] [address] LABCLIA [id number] [place] [address] [place] Lymphocytes (Bld) [#/Vol] 0.27 10*3/uL Low 1.00-4.00 [facility] Comment on above: Order Comment: Speci men Type: BLOOD SPECIMENOrdering Facility: [facility] Address: [address] [place] [address] Performed By: #### 5 7021-8 ####[facility] LABCLIA [id number] [address] LABCLIA [id number] [place] [address] [place] Lymphocytes/100 WBC (Bld) 2.7 % Normal [facility] Comment on above: Order Comment: Speci men Type: BLOOD SPECIMENOrdering Facility: [facility] Address: [address] [place], [place] [address] Performed By: #### 5 7021-8 ####[facility] LABCLIA [id number] [address] LABCLIA [id number] [place] [address] [place] MCH (RBC) [Entitic mass] 30.6 pg Normal 26.0-34.0 [facility] Comment on above: Order Comment: Speci men Type: BLOOD SPECIMENOrdering Facility: [facility] Address: [address] [place] [address] Performed By: #### 5 7021-8 ####[facility] LABCLIA [id number] [address] LABCLIA [id number] [place] [address] [place] MCHC (RBC) [Mass/Vol] 33.2 g/dL Normal 30.5-36.0 [facility] Comment on above: Order Comment: Speci men Type: BLOOD SPECIMENOrdering Facility: [facility] Address: [address] [place] [address] Performed By: #### 5 7021-8 ####[facility] LABCLIA [id number] [address] LABCLIA [id number] [place] [address] [place] MCV (RBC) [Entitic vol] 92.1 fL Normal 80.0-100.0 [facility] Comment on above: Order Comment: Speci men Type: BLOOD SPECIMENOrdering Facility: [facility] Address: [address] [place], [place] [address] Performed By: #### 5 7021-8 ####[facility] LABCLIA [id number] [address] LABCLIA [id number] [place] [address] [place] Monocytes (Bld) [#/Vol] 0.09 10*3/uL Normal <0.87 [facility] Comment on above: Order Comment: Speci men Type: BLOOD SPECIMENOrdering Facility: [facility] Address: [address] [place], [place] [address] Performed By: #### 5 7021-8 ####[facility] LABCLIA [id number] [address] LABCLIA [id number] [place] [address] [place] Monocytes/100 WBC (Bld) 0.9 % Normal [facility] Comment on above: Order Comment: Speci men Type: BLOOD SPECIMENOrdering Facility: [facility] Address: [address] [place] [address] Performed By: #### 5 7021-8 ####[facility] LABCLIA [id number] [address] LABCLIA [id number] [place] [address] [place] MYELO% 1.8 % Normal [facility] Comment on above: Order Comment: Speci men Type: BLOOD SPECIMENOrdering Facility: [facility] Address: [address] [place] [address] Performed By: #### 5 7021-8 ####[facility] LABCLIA [id number] [address] LABCLIA [id number] [place] [address] [place] Neutrophils (Bld) [#/Vol] 9.33 10*3/uL High 1.45-7.50 [facility] Comment on above: Order Comment: Speci men Type: BLOOD SPECIMENOrdering Facility: [facility] Address: [address] [place], [place] [address] Performed By: #### 5 7021-8 ####[facility] LABCLIA [id number] [address] LABCLIA [id number] [place] [address] [place] Neutrophils/100 WBC (Bld) 94.6 % Normal [facility] Comment on above: Order Comment: Speci men Type: BLOOD SPECIMENOrdering Facility: [facility] Address: [address] [address] Performed By: #### 5 7021-8 ####[facility] LABCLIA [id number] [address] LABCLIA [id number] [place] [address] [place] Nucleated RBC (Bld) [#/Vol] 0.09 10*3/uL High <0.01 [facility] Comment on above: Order Comment: Speci men Type: BLOOD SPECIMENOrdering Facility: [facility] Address: [address] [place] [address] Performed By: #### 5 7021-8 ####[facility] LABCLIA [id number] [address] LABCLIA [id number] [place] [address] [place] Nucleated RBC/100 WBC (Bld) [Ratio] 0.9 /100 WBC Normal [facility] Comment on above: Order Comment: Speci men Type: BLOOD SPECIMENOrdering Facility: [facility] Address: [address] [place] [address] Performed By: #### 5 7021-8 ####[facility] LABCLIA [id number] [address] LABCLIA [id number] [place] [address] [place] Ovalocytes LM Ql (Bld) Few Normal [facility] Comment on above: Order Comment: Speci men Type: BLOOD SPECIMENOrdering Facility: [facility] Address: [address] [place] [address] Performed By: #### 5 7021-8 ####[facility] LABCLIA [id number] [address] [facility] LABCLIA [id number] [place] [address] [place] Platelet mean volume (Bld) [Entitic vol] 10.1 fL Normal 9.0-12.7 [facility] Comment on above: Order Comment: Speci men Type: BLOOD SPECIMENOrdering Facility: [facility] Address: [address] [place] [address] Performed By: #### 5 7021-8 ####[facility] LABCLIA [id number] [address] LABCLIA [id number] [place] [address] [place] Platelets (Bld) [#/Vol] 231 10*3/uL Normal 150-400 [facility] Comment on above: Order Comment: Speci men Type: BLOOD SPECIMENOrdering Facility: [facility] Address: [address] [place] [address] Performed By: #### 5 7021-8 ####[facility] LABCLIA [id number] [address] LABCLIA [id number] [place] [address] [place] Platelets Estimate (Bld) [#/Vol] Adequate Normal [facility] Comment on above: Order Comment: Speci men Type: BLOOD SPECIMENOrdering Facility: [facility] Address: [address] [place], [place] [address] Performed By: #### 5 7021-8 ####[facility] LABCLIA [id number] [address] LABCLIA [id number] [place] [address] [place] RBC (Bld) [#/Vol] 3.40 10*6/uL Low 3.90-5.20 [facility] Comment on above: Order Comment: Speci men Type: BLOOD SPECIMENOrdering Facility: [facility] Address: [address] [place] [address] Performed By: #### 5 7021-8 ####[facility] LABCLIA [id number] [place] [id number] LABCLIA [id number] [place] [address] [place] RED CELL MORPH Reviewed: see result s of individual morphologies Normal [facility] Comment on above: Order Comment: Speci men Type: BLOOD SPECIMENOrdering Facility: [facility] Address: [address] [place] [address] Performed By: #### 5 7021-8 ####[facility] LABCLIA [id number] [address] LABCLIA [id number] [place] [address] [place] WBC (Bld) [#/Vol] 9.86 10*3/uL Normal 3.70-11.00 [facility] Comment on above: Order Comment: Speci men Type: BLOOD SPECIMENOrdering Facility: [facility] Address: [address] [place] [address] Performed By: #### 5 7021-8 ####[facility] LABCLIA [id number] [place] [id number] LABCLIA [id number] [place] [address] [place] WBC Left Shift Ql (Bld) Present Normal [facility] Comment on above: Order Comment: Speci men Type: BLOOD SPECIMENOrdering Facility: [facility] Address: [address] [place] [address] Performed By: #### 5 7021-8 ####[facility] LABCLIA [id number] [address] LABCLIA [id number] [place] [id number] [place] [id number] [place] CNOVSPon 01-09-2023 CNOVSP Normal [facility] Comprehensive metabolic 2000 panelon 01-09-2023 Albumin [Mass/Vol] 3.8 g/dL Low 3.9-4.9 [facility] Comment on above: Order Comment: Speci men Type: BLOOD SPECIMENOrdering Facility: [facility] Address: [address] [address] Performed By: #### 2 4323-8 ####[facility] LABCLIA [id number] [place] [address] ALP [Catalytic activity/Vol] 60 U/L Normal 34-123 [facility] Comment on above: Order Comment: Speci men Type: BLOOD SPECIMENOrdering Facility: [facility] Address: [address] [address] Performed By: #### 2 4323-8 ####[facility] LABCLIA [id number] [place] [address] ALT [Catalytic activity/Vol] 16 U/L Normal 7-38 [facility] Comment on above: Order Comment: Speci men Type: BLOOD SPECIMENOrdering Facility: [facility] Address: [address] [place] [address] Performed By: #### 2 4323-8 ####[facility] LABCLIA [id number] [place] [address] Anion gap [Moles/Vol] 12 mmol/L Normal 9-18 [facility] Comment on above: Order Comment: Speci men Type: BLOOD SPECIMENOrdering Facility: [facility] Address: [address] [address] Performed By: #### 2 4323-8 ####[facility] LABCLIA [id number] [place] [address] AST [Catalytic activity/Vol] 12 U/L Low 13-35 [facility] Comment on above: Order Comment: Speci men Type: BLOOD SPECIMENOrdering Facility: [facility] Address: [address] [address] Performed By: #### 2 4323-8 ####[facility] LABCLIA [id number] [place] [address] Bilirubin [Mass/Vol] 0.6 mg/dL Normal 0.2-1.3 [facility] Comment on above: Order Comment: Speci men Type: BLOOD SPECIMENOrdering Facility: [facility] Address: [address] [address] Performed By: #### 2 4323-8 ####[facility] LABCLIA [id number] [place] [address] Calcium [Mass/Vol] 10.0 mg/dL Normal 8.5-10.2 [facility] Comment on above: Order Comment: Speci men Type: BLOOD SPECIMENOrdering Facility: [facility] Address: [address] [place] [address] Performed By: #### 2 4323-8 ####[facility] LABCLIA [id number] [place] [address] Chloride [Moles/Vol] 101 mmol/L Normal 97-105 [facility] Comment on above: Order Comment: Speci men Type: BLOOD SPECIMENOrdering Facility: [facility] Address: [address] [place] [address] Performed By: #### 2 4323-8 ####[facility] LABCLIA [id number] [place] [address] CO2 [Moles/Vol] 26 mmol/L Normal 22-30 [facility] Comment on above: Order Comment: Speci men Type: BLOOD SPECIMENOrdering Facility: [facility] Address: [address] [place] [address] Performed By: #### 2 4323-8 ####[facility] LABCLIA [id number] [place] [address] Creatinine [Mass/Vol] 0.80 mg/dL Normal 0.58-0.96 [facility] Comment on above: Order Comment: Kurt barraza Type: BLOOD SPECIMENOrdering Facility: [facility] Address: [address] [address] Performed By: #### 2 4323-8 ####[facility] LABIA [id number] [place] [address] ESTIMATED GLOMERULAR FILTRATION RATE 75 mL/min/1.73m??? Normal >=60 [facility] Comment on above: Order Comment: Kurt barraza Type: BLOOD SPECIMENOrdering Facility: [facility] Address: [address] [place] [address] Result Comment: Kim mated Glomerular Filtration Rate [...] actual GFR. Performed By: #### 2 4323-8 ####[facility] LABIA [id number] [place] [address] Glucose [Mass/Vol] 161 mg/dL High 74-99 [facility] Comment on above: Order Comment: Kurt barraza Type: BLOOD SPECIMENOrdering Facility: [facility] Address: [address] [place] [address] Result Comment: The [place] Diabetes Association (ADA) provides guidance for cutoff [...] Standards of Medical Care in Diabetes 2016, [place] [employer]. Diabetes Care. 2016.39(Suppl 1). Performed By: #### 2 4323-8 ####[facility] LABCLIA [id number] [place] [address] Potassium [Moles/Vol] 3.4 mmol/L Low 3.7-5.1 [facility] Comment on above: Order Comment: Speci men Type: BLOOD SPECIMENOrdering Facility: [facility] Address: [address] [address] Performed By: #### 2 4323-8 ####[facility] LABCLIA [id number] [place] [address] Protein [Mass/Vol] 6.1 g/dL Low 6.3-8.0 [facility] Comment on above: Order Comment: Speci men Type: BLOOD SPECIMENOrdering Facility: [facility] Address: [address] [address] Performed By: #### 2 4323-8 ####[facility] LABCLIA [id number] [place] [address] Sodium [Moles/Vol] 139 mmol/L Normal 136-144 [facility] Comment on above: Order Comment: Speci men Type: BLOOD SPECIMENOrdering Facility: [facility] Address: [address] [address] Performed By: #### 2 4323-8 ####[facility] LABCLIA [id number] [place] [address] Urea nitrogen [Mass/Vol] 47 mg/dL High 7-21 [facility] Comment on above: Order Comment: Speci men Type: BLOOD SPECIMENOrdering Facility: [facility] Address: [address] [address] Performed By: #### 2 4323-8 ####[facility] LABCLIA [id number] [place] [address] CBC W Auto Differential pane l (Bld)on 12-20-2022 Anisocytosis Ql (Bld) Present Normal [facility] Comment on above: Order Comment: Speci men Type: BLOOD SPECIMENOrdering Facility: [facility] Address: [address] [place] [address] Performed By: #### 5 7021-8 ####[facility] LABCLIA [id number] [address] LABCLIA [id number] [place] [address] [place] Basophils (Bld) [#/Vol] 0.00 10*3/uL Normal <0.11 [facility] Comment on above: Order Comment: Speci men Type: BLOOD SPECIMENOrdering Facility: [facility] Address: [address] [place] [address] Performed By: #### 5 7021-8 ####[facility] LABCLIA [id number] [address] LABCLIA [id number] [place] [address] [place] Basophils/100 WBC (Bld) 0.0 % Normal [facility] Comment on above: Order Comment: Speci men Type: BLOOD SPECIMENOrdering Facility: [facility] Address: [address] [place], [place] [address] Performed By: #### 5 7021-8 ####[facility] LABCLIA [id number] [address] LABCLIA [id number] [place] [address] [place] Differential cell count method Nom (Bld) Manual Normal [facility] Comment on above: Order Comment: Speci men Type: BLOOD SPECIMENOrdering Facility: [facility] Address: [address] [place] [address] Performed By: #### 5 7021-8 ####[facility] LABCLIA [id number] [address] LABCLIA [id number] [place] [address] [place] Eosinophils (Bld) [#/Vol] 0.00 10*3/uL Normal <0.46 [facility] Comment on above: Order Comment: Speci men Type: BLOOD SPECIMENOrdering Facility: [facility] Address: [address] [place] [address] Performed By: #### 5 7021-8 ####[facility] LABCLIA [id number] [address] LABCLIA [id number] [place] [address] [place] Eosinophils/100 WBC (Bld) 0.0 % Normal [facility] Comment on above: Order Comment: Speci men Type: BLOOD SPECIMENOrdering Facility: [facility] Address: [address] [place], [place] [address] Performed By: #### 5 7021-8 ####[facility] LABCLIA [id number] [address] LABCLIA [id number] [place] [address] [place] Erythrocyte distribution width (RBC) [Ratio] 15.5 % High 11.5-15.0 [facility] Comment on above: Order Comment: Speci men Type: BLOOD SPECIMENOrdering Facility: [facility] Address: [address] Performed By: #### 5 7021-8 ####[facility] LABCLIA [id number] [address] LABCLIA [id number] [place] [address] [place] Hematocrit (Bld) [Volume fraction] 35.0 % Low 36.0-46.0 [facility] Comment on above: Order Comment: Speci men Type: BLOOD SPECIMENOrdering Facility: [facility] Address: [address] [place] [address] Performed By: #### 5 7021-8 ####[facility] LABCLIA [id number] [address] LABCLIA [id number] [place] [address] [place] Hemoglobin (Bld) [Mass/Vol] 11.7 g/dL Normal 11.5-15.5 [facility] Comment on above: Order Comment: Speci men Type: BLOOD SPECIMENOrdering Facility: [facility] Address: [address] [place] [address] Performed By: #### 5 7021-8 ####[facility] LABCLIA [id number] [address] LABCLIA [id number] [place] [address] [place] Lymphocytes (Bld) [#/Vol] 0.31 10*3/uL Low 1.00-4.00 [facility] Comment on above: Order Comment: Speci men Type: BLOOD SPECIMENOrdering Facility: [facility] Address: [address] [place] [address] Performed By: #### 5 7021-8 ####[facility] LABCLIA [id number] [address] LABCLIA [id number] [place] [address] [place] Lymphocytes/100 WBC (Bld) 3.0 % Normal [facility] Comment on above: Order Comment: Speci men Type: BLOOD SPECIMENOrdering Facility: [facility] Address: [address] [place] [address] Performed By: #### 5 7021-8 ####[facility] LABCLIA [id number] [address] [address] LABCLIA [id number] [place] [address] [place] MCH (RBC) [Entitic mass] 30.2 pg Normal 26.0-34.0 [facility] Comment on above: Order Comment: Speci men Type: BLOOD SPECIMENOrdering Facility: [facility] Address: [address] [place] [address] Performed By: #### 5 7021-8 ####[facility] LABCLIA [id number] [address] LABCLIA [id number] [place] [address] [place] MCHC (RBC) [Mass/Vol] 33.4 g/dL Normal 30.5-36.0 [facility] Comment on above: Order Comment: Speci men Type: BLOOD SPECIMENOrdering Facility: [facility] Address: [address] [place] [address] Performed By: #### 5 7021-8 ####[facility] LABCLIA [id number] [address] LABCLIA [id number] [place] [address] [place] MCV (RBC) [Entitic vol] 90.2 fL Normal 80.0-100.0 [facility] Comment on above: Order Comment: Speci men Type: BLOOD SPECIMENOrdering Facility: [facility] Address: [address] [place], [place] [address] Performed By: #### 5 7021-8 ####[facility] LABCLIA [id number] [address] LABCLIA [id number] [place] [address] [place] Monocytes (Bld) [#/Vol] 0.41 10*3/uL Normal <0.87 [facility] Comment on above: Order Comment: Speci men Type: BLOOD SPECIMENOrdering Facility: [facility] Address: [address] [place] [address] Performed By: #### 5 7021-8 ####[facility] LABCLIA [id number] [address] LABCLIA [id number] [place] [address] [place] Monocytes/100 WBC (Bld) 4.0 % Normal [facility] Comment on above: Order Comment: Speci men Type: BLOOD SPECIMENOrdering Facility: [facility] Address: [address] [place] [address] Performed By: #### 5 7021-8 ####[facility] LABCLIA [id number] [address] LABCLIA [id number] [place] [address] [place] Neutrophils (Bld) [#/Vol] 9.50 10*3/uL High 1.45-7.50 [facility] Comment on above: Order Comment: Speci men Type: BLOOD SPECIMENOrdering Facility: [facility] Address: [address] [place], [place] [address] Performed By: #### 5 7021-8 ####[facility] LABCLIA [id number] [address] LABCLIA [id number] [place] [address] [place] Neutrophils/100 WBC (Bld) 93.0 % Normal [facility] Comment on above: Order Comment: Speci men Type: BLOOD SPECIMENOrdering Facility: [facility] Address: [address] [place], [place] [address] Performed By: #### 5 7021-8 ####[facility] LABCLIA [id number] [address] LABCLIA [id number] [place] [address] [place] Nucleated RBC (Bld) [#/Vol] 10*3/uL Normal <0.01 [facility] Comment on above: Order Comment: Speci men Type: BLOOD SPECIMENOrdering Facility: [facility] Address: [address] [place] [address] Performed By: #### 5 7021-8 ####[facility] LABCLIA [id number] [address] LABCLIA [id number] [place] [address] [place] Nucleated RBC/100 WBC (Bld) [Ratio] 0.0 /100 WBC Normal [facility] Comment on above: Order Comment: Speci men Type: BLOOD SPECIMENOrdering Facility: [facility] Address: [address] [place] [address] Performed By: #### 5 7021-8 ####[facility] LABCLIA [id number] [address] LABCLIA [id number] [place] [address] [place] Ovalocytes LM Ql (Bld) Few Normal Cl [facility] Comment on above: Order Comment: Speci men Type: BLOOD SPECIMENOrdering Facility: [facility] Address: [address] [place] [address] Performed By: #### 5 7021-8 ####[facility] LABCLIA [id number] [address] LABCLIA [id number] [place] [address] [place] Platelet mean volume (Bld) [Entitic vol] 10.5 fL Normal 9.0-12.7 [facility] Comment on above: Order Comment: Speci men Type: BLOOD SPECIMENOrdering Facility: [facility] Address: [address] [place] [address] Performed By: #### 5 7021-8 ####[facility] LABCLIA [id number] [address] LABCLIA [id number] [place] [address] [place] Platelets (Bld) [#/Vol] 151 10*3/uL Normal 150-400 [facility] Comment on above: Order Comment: Speci men Type: BLOOD SPECIMENOrdering Facility: [facility] Address: [address] [place] [address] Performed By: #### 5 7021-8 ####[facility] LABCLIA [id number] [address] LABCLIA [id number] [place] [address] [place] Platelets Estimate (Bld) [#/Vol] Adequate Normal [facility] Comment on above: Order Comment: Speci men Type: BLOOD SPECIMENOrdering Facility: [facility] Address: [address] [place] [address] Performed By: #### 5 7021-8 ####[facility] LABCLIA [id number] [address] LABCLIA [id number] [place] [address] [place] Polychromasia LM Ql (Bld) Slight Normal [facility] Comment on above: Order Comment: Speci men Type: BLOOD SPECIMENOrdering Facility: [facility] Address: [address] [place] [address] Performed By: #### 5 7021-8 ####[facility] LABCLIA [id number] [address] LABCLIA [id number] [place] [address] [place] RBC (Bld) [#/Vol] 3.88 10*6/uL Low 3.90-5.20 [facility] Comment on above: Order Comment: Speci men Type: BLOOD SPECIMENOrdering Facility: [facility] Address: [address] [place] [address] Performed By: #### 5 7021-8 ####[facility] LABCLIA [id number] [address] LABCLIA [id number] [place] [address] [place] RED CELL MORPH Reviewed: see result s of individual morphologies Normal [facility] Comment on above: Order Comment: Speci men Type: BLOOD SPECIMENOrdering Facility: [facility] Address: [address] [place] [address] Performed By: #### 5 7021-8 ####[facility] LABCLIA [id number] [address] LABCLIA [id number] [place] [address] [place] WBC (Bld) [#/Vol] 10.21 10*3/uL Normal 3.70-11.00 [facility] Comment on above: Order Comment: Speci men Type: BLOOD SPECIMENOrdering Facility: [facility] Address: [address] [place], [place] [address] Performed By: #### 5 7021-8 ####[facility] LABCLIA [id number] [address] LABCLIA [id number] [place] [address] [place] CNOVSPon 12-20-2022 CNOVSP Normal [facility] Comprehensive metabolic 2000 panelon 12-20-2022 Albumin [Mass/Vol] 4.0 g/dL Normal 3.9-4.9 [facility] Comment on above: Order Comment: Speci men Type: BLOOD SPECIMENOrdering Facility: [facility] Address: [address] [address] Performed By: #### 2 4323-8 ####[facility] LABCLIA [id number] [place] [address] ALP [Catalytic activity/Vol] 48 U/L Normal 34-123 [facility] Comment on above: Order Comment: Speci men Type: BLOOD SPECIMENOrdering Facility: [facility] Address: [address] [address] Performed By: #### 2 4323-8 ####[facility] LABCLIA [id number] [place] [address] ALT [Catalytic activity/Vol] 21 U/L Normal 7-38 [facility] Comment on above: Order Comment: Speci men Type: BLOOD SPECIMENOrdering Facility: [facility] Address: [address] [address] Performed By: #### 2 4323-8 ####[facility] LABCLIA [id number] [place] [address] Anion gap [Moles/Vol] 9 mmol/L Normal 9-18 [facility] Comment on above: Order Comment: Speci men Type: BLOOD SPECIMENOrdering Facility: [facility] Address: [address] [address] Performed By: #### 2 4323-8 ####[facility] LABCLIA [id number] [place] [address] AST [Catalytic activity/Vol] 16 U/L Normal 13-35 [facility] Comment on above: Order Comment: Speci men Type: BLOOD SPECIMENOrdering Facility: [facility] Address: [address] [address] Performed By: #### 2 4323-8 ####[facility] LABCLIA [id number] [place] [address] Bilirubin [Mass/Vol] 0.6 mg/dL Normal 0.2-1.3 [facility] Comment on above: Order Comment: Speci men Type: BLOOD SPECIMENOrdering Facility: [facility] Address: [address] [place] [address] Performed By: #### 2 4323-8 ####[facility] LABCLIA [id number] [place] [address] Calcium [Mass/Vol] 9.8 mg/dL Normal 8.5-10.2 [facility] Comment on above: Order Comment: Speci men Type: BLOOD SPECIMENOrdering Facility: [facility] Address: [address] [place] [address] Performed By: #### 2 4323-8 ####[facility] LABCLIA [id number] [place] [address] Chloride [Moles/Vol] 101 mmol/L Normal 97-105 [facility] Comment on above: Order Comment: Speci men Type: BLOOD SPECIMENOrdering Facility: [facility] Address: [address] [place] [address] Performed By: #### 2 4323-8 ####[facility] LABCLIA [id number] [place] [address] CO2 [Moles/Vol] 27 mmol/L Normal 22-30 [facility] Comment on above: Order Comment: Speci men Type: BLOOD SPECIMENOrdering Facility: [facility] Address: [address] [place] [address] Performed By: #### 2 4323-8 ####[facility] LABCLIA [id number] [place] [address] Creatinine [Mass/Vol] 0.79 mg/dL Normal 0.58-0.96 [facility] Comment on above: Order Comment: Speci men Type: BLOOD SPECIMENOrdering Facility: [facility] Address: [facility] [place] [address] Performed By: #### 2 4323-8 ####[facility] LABCLIA [id number] [place] [address] ESTIMATED GLOMERULAR FILTRATION RATE 76 mL/min/1.73m??? Normal >=60 [facility] Comment on above: Order Comment: Kurt barraza Type: BLOOD SPECIMENOrdering Facility: [facility] Address: [address] [place] [address] Result Comment: Kim mated Glomerular Filtration Rate [...] actual GFR. Performed By: #### 2 4323-8 ####[facility] LABCLIA [id number] [place] [address] Glucose [Mass/Vol] 118 mg/dL High 74-99 [facility] Comment on above: Order Comment: Kurt barraza Type: BLOOD SPECIMENOrdering Facility: [facility] Address: [address] [place] [address] Result Comment: The [place] [employer] (ADA) provides guidance for cutoff [...] Standards of Medical Care in Diabetes 2016, [place] [employer]. Diabetes Care. 2016.39(Suppl 1). Performed By: #### 2 4323-8 ####[facility] LABCLIA [id number] [place] [address] Potassium [Moles/Vol] 4.1 mmol/L Normal 3.7-5.1 [facility] Comment on above: Order Comment: Speci men Type: BLOOD SPECIMENOrdering Facility: [facility] Address: [address] [place] [address] Performed By: #### 2 4323-8 ####[facility] LABCLIA [id number] [place] [address] Protein [Mass/Vol] 6.3 g/dL Normal 6.3-8.0 [facility] Comment on above: Order Comment: Speci men Type: BLOOD SPECIMENOrdering Facility: [facility] Address: [address] [place] [address] Performed By: #### 2 4323-8 ####[facility] LABIA [id number] [place] [address] Sodium [Moles/Vol] 137 mmol/L Normal 136-144 [facility] Comment on above: Order Comment: Speci men Type: BLOOD SPECIMENOrdering Facility: [facility] Address: [address] [place] [address] Performed By: #### 2 4323-8 ####[facility] LABCLIA [id number] [place] [address] Urea nitrogen [Mass/Vol] 44 mg/dL High 7-21 [facility] Comment on above: Order Comment: Speci men Type: BLOOD SPECIMENOrdering Facility: [facility] Address: [address] [place] [address] Performed By: #### 2 4323-8 ####[facility] LABIA [id number] [place] [address] MRI BRAIN WO/W IVCONon 12-08 MRI BRAIN WO/W IVCON Normal [facility] CBC W Auto Differential pane l (Bld)on 11-30-2022 Basophils (Bld) [#/Vol] 10*3/uL Normal <0.11 [facility] Comment on above: Order Comment: Speci men Type: BLOOD SPECIMENOrdering Facility: [facility] Address: [address] [address] Performed By: #### 5 7021-8 ####[facility] LABCLIA [id number] [place] [address] Basophils/100 WBC (Bld) 0.0 % Normal [facility] Comment on above: Order Comment: Speci men Type: BLOOD SPECIMENOrdering Facility: [facility] Address: [address] [address] Performed By: #### 5 7021-8 ####[facility] LABCLIA [id number] [place] [address] Differential cell count method Nom (Bld) Auto Normal [facility] Comment on above: Order Comment: Speci men Type: BLOOD SPECIMENOrdering Facility: [facility] Address: [address] [address] Performed By: #### 5 7021-8 ####[facility] LABCLIA [id number] [place] [address] Eosinophils (Bld) [#/Vol] 10*3/uL Normal <0.46 [facility] Comment on above: Order Comment: Speci men Type: BLOOD SPECIMENOrdering Facility: [facility] Address: [address] [address] Performed By: #### 5 7021-8 ####[facility] LABCLIA [id number] [place] [address] Eosinophils/100 WBC (Bld) 0.0 % Normal [facility] Comment on above: Order Comment: Speci men Type: BLOOD SPECIMENOrdering Facility: [facility] Address: [address] [address] Performed By: #### 5 7021-8 ####[facility] LABCLIA [id number] [place] [address] Erythrocyte distribution width (RBC) [Ratio] 14.4 % Normal 11.5-15.0 [facility] Comment on above: Order Comment: Speci men Type: BLOOD SPECIMENOrdering Facility: [facility] Address: [address] [place] [address] Performed By: #### 5 7021-8 ####[facility] LABIA [id number] [place] [address] Hematocrit (Bld) [Volume fraction] 37.7 % Normal 36.0-46.0 [facility] Comment on above: Order Comment: Speci men Type: BLOOD SPECIMENOrdering Facility: [facility] Address: [address] [place] [address] Performed By: #### 5 7021-8 ####[facility] LABIA [id number] [place] [address] Hemoglobin (Bld) [Mass/Vol] 12.6 g/dL Normal 11.5-15.5 [facility] Comment on above: Order Comment: Speci men Type: BLOOD SPECIMENOrdering Facility: [facility] Address: [address] [place] [address] Performed By: #### 5 7021-8 ####[facility] LABIA [id number] [place] [address] Immature granulocytes (Bld) [#/Vol] 0.18 10*3/uL High <0.10 [facility] Comment on above: Order Comment: Speci men Type: BLOOD SPECIMENOrdering Facility: [facility] Address: [address] [place] [address] Performed By: #### 5 7021-8 ####[facility] LABIA [id number] [place] [address] Immature granulocytes/100 WBC (Bld) 2.3 % Normal [facility] Comment on above: Order Comment: Speci men Type: BLOOD SPECIMENOrdering Facility: [facility] Address: [address] [place] [address] Performed By: #### 5 7021-8 ####[facility] LABIA [id number] [place] [address] Lymphocytes (Bld) [#/Vol] 0.17 10*3/uL Low 1.00-4.00 [facility] Comment on above: Order Comment: Speci men Type: BLOOD SPECIMENOrdering Facility: [facility] Address: [address] [place] [address] Performed By: #### 5 7021-8 ####[facility] LABIA [id number] [place] [address] Lymphocytes/100 WBC (Bld) 2.2 % Normal [facility] Comment on above: Order Comment: Speci men Type: BLOOD SPECIMENOrdering Facility: [facility] Address: [address] [place] [address] Performed By: #### 5 7021-8 ####[facility] LABIA [id number] [place] [address] MCH (RBC) [Entitic mass] 30.0 pg Normal 26.0-34.0 [facility] Comment on above: Order Comment: Speci men Type: BLOOD SPECIMENOrdering Facility: [facility] Address: [address] [place] [address] Performed By: #### 5 7021-8 ####[facility] LABIA [id number] [place] [address] MCHC (RBC) [Mass/Vol] 33.4 g/dL Normal 30.5-36.0 [facility] Comment on above: Order Comment: Speci men Type: BLOOD SPECIMENOrdering Facility: [facility] Address: [address] [place] [address] Performed By: #### 5 7021-8 ####[facility] LABCLIA [id number] [place] [address] MCV (RBC) [Entitic vol] 89.8 fL Normal 80.0-100.0 [facility] Comment on above: Order Comment: Speci men Type: BLOOD SPECIMENOrdering Facility: [facility] Address: [address] [place] [address] Performed By: #### 5 7021-8 ####[facility] LABCLIA [id number] [place] [address] Monocytes (Bld) [#/Vol] 0.45 10*3/uL Normal <0.87 [facility] Comment on above: Order Comment: Speci men Type: BLOOD SPECIMENOrdering Facility: [facility] Address: [address] [place] [address] Performed By: #### 5 7021-8 ####[facility] LABCLIA [id number] [place] [address] Monocytes/100 WBC (Bld) 5.9 % Normal [facility] Comment on above: Order Comment: Speci men Type: BLOOD SPECIMENOrdering Facility: [facility] Address: [address] [place] [address] Performed By: #### 5 7021-8 ####[facility] LABCLIA [id number] [place] [address] Neutrophils (Bld) [#/Vol] 6.88 10*3/uL Normal 1.45-7.50 [facility] Comment on above: Order Comment: Speci men Type: BLOOD SPECIMENOrdering Facility: [facility] Address: [address] [place] [address] Performed By: #### 5 7021-8 ####[facility] LABCLIA [id number] [place] [address] Neutrophils/100 WBC (Bld) 89.6 % Normal [facility] Comment on above: Order Comment: Speci men Type: BLOOD SPECIMENOrdering Facility: [facility] Address: [address] [place] [address] Performed By: #### 5 7021-8 ####[facility] LABCLIA [id number] [place] [address] Nucleated RBC (Bld) [#/Vol] 10*3/uL Normal <0.01 [facility] Comment on above: Order Comment: Speci men Type: BLOOD SPECIMENOrdering Facility: [facility] Address: [address] [place] [address] Performed By: #### 5 7021-8 ####[facility] LABCLIA [id number] [place] [address] Nucleated RBC/100 WBC (Bld) [Ratio] 0.0 /100 WBC Normal [facility] Comment on above: Order Comment: Speci men Type: BLOOD SPECIMENOrdering Facility: [facility] Address: [address] [place] [address] Performed By: #### 5 7021-8 ####[facility] LABIA [id number] [place] [address] Platelet mean volume (Bld) [Entitic vol] 10.3 fL Normal 9.0-12.7 [facility] Comment on above: Order Comment: Speci men Type: BLOOD SPECIMENOrdering Facility: [facility] Address: [address] [place] [address] Performed By: #### 5 7021-8 ####[facility] LABIA [id number] [place] [address] Platelets (Bld) [#/Vol] 138 10*3/uL Low 150-400 [facility] Comment on above: Order Comment: Speci men Type: BLOOD SPECIMENOrdering Facility: [facility] Address: [address] [place] [address] Result Comment: Resu lts checked and verified.No clot detected. Performed By: #### 5 7021-8 ####[facility] LABIA [id number] [place] [address] RBC (Bld) [#/Vol] 4.20 10*6/uL Normal 3.90-5.20 [facility] Comment on above: Order Comment: Speci men Type: BLOOD SPECIMENOrdering Facility: [facility] Address: [address] [place] [address] Performed By: #### 5 7021-8 ####[facility] LABIA [id number] [place] [address] WBC (Bld) [#/Vol] 7.68 10*3/uL Normal 3.70-11.00 [facility] Comment on above: Order Comment: Speci men Type: BLOOD SPECIMENOrdering Facility: [facility] Address: [address] [place] [address] Performed By: #### 5 7021-8 ####[facility] LABIA [id number] [place] [address] CNOVon 11-30-2022 CNOV Normal [facility] CNOVSPon 11-30-2022 CNOVSP Normal [facility] Comprehensive metabolic 2000 panelon 11-30-2022 Albumin [Mass/Vol] 3.8 g/dL Low 3.9-4.9 [facility] Comment on above: Order Comment: Speci men Type: BLOOD SPECIMENOrdering Facility: [facility] Address: [address] [place] [address] Performed By: #### 2 4323-8 ####[facility] LABCLIA [id number] [place] [address] ALP [Catalytic activity/Vol] 53 U/L Normal 34-123 [facility] Comment on above: Order Comment: Speci men Type: BLOOD SPECIMENOrdering Facility: [facility] Address: [address] [place] [address] Performed By: #### 2 4323-8 ####[facility] LABCLIA [id number] [place] [address] ALT [Catalytic activity/Vol] 24 U/L Normal 7-38 [facility] Comment on above: Order Comment: Speci men Type: BLOOD SPECIMENOrdering Facility: [facility] Address: [address] [address] Performed By: #### 2 4323-8 ####[facility] LABCLIA [id number] [place] [address] Anion gap [Moles/Vol] 11 mmol/L Normal 9-18 [facility] Comment on above: Order Comment: Speci men Type: BLOOD SPECIMENOrdering Facility: [facility] Address: [address] [address] Performed By: #### 2 4323-8 ####[facility] LABCLIA [id number] [place] [address] AST [Catalytic activity/Vol] 12 U/L Low 13-35 [facility] Comment on above: Order Comment: Speci men Type: BLOOD SPECIMENOrdering Facility: [facility] Address: [address] [address] Performed By: #### 2 4323-8 ####[facility] LABCLIA [id number] [place] [address] Bilirubin [Mass/Vol] 0.7 mg/dL Normal 0.2-1.3 [facility] Comment on above: Order Comment: Speci men Type: BLOOD SPECIMENOrdering Facility: [facility] Address: [address] [address] Performed By: #### 2 4323-8 ####[facility] LABCLIA [id number] [place] [address] Calcium [Mass/Vol] 9.4 mg/dL Normal 8.5-10.2 [facility] Comment on above: Order Comment: Speci men Type: BLOOD SPECIMENOrdering Facility: [facility] Address: [address] [address] Performed By: #### 2 4323-8 ####[facility] LABCLIA [id number] [place] [address] Chloride [Moles/Vol] 101 mmol/L Normal 97-105 [facility] Comment on above: Order Comment: Speci men Type: BLOOD SPECIMENOrdering Facility: [facility] Address: [address] [place] [address] Performed By: #### 2 4323-8 ####[facility] LABCLIA [id number] [place] [address] CO2 [Moles/Vol] 26 mmol/L Normal 22-30 [facility] Comment on above: Order Comment: Speci men Type: BLOOD SPECIMENOrdering Facility: [facility] Address: [address] [place] [address] Performed By: #### 2 4323-8 ####[facility] LABCLIA [id number] [place] [address] Creatinine [Mass/Vol] 0.86 mg/dL Normal 0.58-0.96 [facility] Comment on above: Order Comment: Speci men Type: BLOOD SPECIMENOrdering Facility: [facility] Address: [address] [place] [address] Performed By: #### 2 4323-8 ####[facility] LABCLIA [id number] [place] [address] ESTIMATED GLOMERULAR FILTRATION RATE 69 mL/min/1.73m??? Normal >=60 [facility] Comment on above: Order Comment: Speci men Type: BLOOD SPECIMENOrdering Facility: [facility] Address: [address] [place] [address] Result Comment: Kim mated Glomerular Filtration Rate [...] actual GFR. Performed By: #### 2 4323-8 ####[facility] LABCLIA [id number] [place] [address] Glucose [Mass/Vol] 127 mg/dL High 74-99 [facility] Comment on above: Order Comment: Speci men Type: BLOOD SPECIMENOrdering Facility: [facility] Address: [address] [place] [address] Result Comment: The [place] [employer] (ADA) provides guidance for cutoff [...] Standards of Medical Care in Diabetes 2016, [place] [employer]. Diabetes Care. 2016.39(Suppl 1). Performed By: #### 2 4323-8 ####[facility] LABCLIA [id number] [place] [address] Potassium [Moles/Vol] 3.7 mmol/L Normal 3.7-5.1 [facility] Comment on above: Order Comment: Speci men Type: BLOOD SPECIMENOrdering Facility: [facility] Address: [address] [address] Performed By: #### 2 4323-8 ####[facility] LABCLIA [id number] [place] [address] Protein [Mass/Vol] 6.0 g/dL Low 6.3-8.0 [facility] Comment on above: Order Comment: Speci men Type: BLOOD SPECIMENOrdering Facility: [facility] Address: [address] [place] [address] Performed By: #### 2 4323-8 ####[facility] LABCLIA [id number] [place] [address] Sodium [Moles/Vol] 138 mmol/L Normal 136-144 [facility] Comment on above: Order Comment: Speci men Type: BLOOD SPECIMENOrdering Facility: [facility] Address: [address] [place] [address] Performed By: #### 2 4323-8 ####[facility] LABCLIA [id number] [place] [address] Urea nitrogen [Mass/Vol] 27 mg/dL High 7-21 [facility] Comment on above: Order Comment: Speci men Type: BLOOD SPECIMENOrdering Facility: [facility] Address: [address] [place] [address] Performed By: #### 2 4323-8 ####[facility] LABCLIA [id number] [place] [address] CNPNon 11-28-2022 CNPN Normal [facility] CNPNon 11-24-2022 CNPN Normal [facility] CNOVSPon 11-17-2022 CNOVSP Normal [facility] Comprehensive metabolic 2000 panelon 11-17-2022 Albumin [Mass/Vol] 4.2 g/dL Normal 3.9-4.9 [facility] Comment on above: Order Comment: Speci men Type: BLOOD SPECIMENOrdering Facility: [facility] Address: [address] [place] [address] Performed By: #### 2 4323-8 ####[facility] LABCLIA [id number] [place] [address] ALP [Catalytic activity/Vol] 44 U/L Normal 34-123 [facility] Comment on above: Order Comment: Speci men Type: BLOOD SPECIMENOrdering Facility: [facility] Address: [address] [place] [address] Performed By: #### 2 4323-8 ####[facility] LABCLIA [id number] [place] [address] ALT [Catalytic activity/Vol] 25 U/L Normal 7-38 [facility] Comment on above: Order Comment: Speci men Type: BLOOD SPECIMENOrdering Facility: [facility] Address: [address] [address] Performed By: #### 2 4323-8 ####[facility] LABCLIA [id number] [place] [address] Anion gap [Moles/Vol] 11 mmol/L Normal 9-18 [facility] Comment on above: Order Comment: Speci men Type: BLOOD SPECIMENOrdering Facility: [facility] Address: [address] [place] [address] Performed By: #### 2 4323-8 ####[facility] LABCLIA [id number] [place] [address] AST [Catalytic activity/Vol] 15 U/L Normal 13-35 [facility] Comment on above: Order Comment: Speci men Type: BLOOD SPECIMENOrdering Facility: [facility] Address: [address] [place] [address] Performed By: #### 2 4323-8 ####[facility] LABCLIA [id number] [place] [address] Bilirubin [Mass/Vol] 0.6 mg/dL Normal 0.2-1.3 [facility] Comment on above: Order Comment: Speci men Type: BLOOD SPECIMENOrdering Facility: [facility] Address: [address] [address] Performed By: #### 2 4323-8 ####[facility] LABCLIA [id number] [place] [address] Calcium [Mass/Vol] 9.6 mg/dL Normal 8.5-10.2 [facility] Comment on above: Order Comment: Speci men Type: BLOOD SPECIMENOrdering Facility: [facility] Address: [address] [place] [address] Performed By: #### 2 4323-8 ####[facility] LABCLIA [id number] [place] [address] Chloride [Moles/Vol] 98 mmol/L Normal 97-105 [facility] Comment on above: Order Comment: Speci men Type: BLOOD SPECIMENOrdering Facility: [facility] Address: [address] [place] [address] Performed By: #### 2 4323-8 ####[facility] LABCLIA [id number] [place] [address] CO2 [Moles/Vol] 27 mmol/L Normal 22-30 [facility] Comment on above: Order Comment: Speci men Type: BLOOD SPECIMENOrdering Facility: [facility] Address: [address] [place] [address] Performed By: #### 2 4323-8 ####[facility] LABCLIA [id number] [place] [address] Creatinine [Mass/Vol] 0.83 mg/dL Normal 0.58-0.96 [facility] Comment on above: Order Comment: Speci men Type: BLOOD SPECIMENOrdering Facility: [facility] Address: [address] [place] [address] Performed By: #### 2 4323-8 ####[facility] LABCLIA [id number] [place] [address] ESTIMATED GLOMERULAR FILTRATION RATE 72 mL/min/1.73m??? Normal >=60 [facility] Comment on above: Order Comment: Speci men Type: BLOOD SPECIMENOrdering Facility: [facility] Address: [address] [place] [address] Result Comment: Kim mated Glomerular Filtration Rate [...] actual GFR. Performed By: #### 2 4323-8 ####[facility] LABIA [id number] [place] [address] Glucose [Mass/Vol] 115 mg/dL High 74-99 [facility] Comment on above: Order Comment: Speci men Type: BLOOD SPECIMENOrdering Facility: [facility] Address: [address] [place] [address] Result Comment: The [place] Diabetes Association (ADA) provides guidance for cutoff [...] Standards of Medical Care in Diabetes 2016, [place] [employer]. Diabetes Care. 2016.39(Suppl 1). Performed By: #### 2 4323-8 ####[facility] LABIA [id number] [place] [address] Potassium [Moles/Vol] 4.4 mmol/L Normal 3.7-5.1 [facility] Comment on above: Order Comment: Speci men Type: BLOOD SPECIMENOrdering Facility: [facility] Address: [address] [address] Performed By: #### 2 4323-8 ####[facility] LABIA [id number] [place] [address] Protein [Mass/Vol] 6.3 g/dL Normal 6.3-8.0 [facility] Comment on above: Order Comment: Speci men Type: BLOOD SPECIMENOrdering Facility: [facility] Address: [address] [address] Performed By: #### 2 4323-8 ####[facility] LABCLIA [id number] [place] [address] Sodium [Moles/Vol] 136 mmol/L Normal 136-144 [facility] Comment on above: Order Comment: Speci men Type: BLOOD SPECIMENOrdering Facility: [facility] Address: [address] [place] [address] Performed By: #### 2 4323-8 ####[facility] LABCLIA [id number] [place] [id number] Urea nitrogen [Mass/Vol] 37 mg/dL High 7-21 [facility] Comment on above: Order Comment: Speci men Type: BLOOD SPECIMENOrdering Facility: [facility] Address: [address] [place] [address] Performed By: #### 2 4323-8 ####[facility] LABCLIA [id number] [place] [id number] TSH SerPl-aCncon 11-17-2022 TSH Qn 1.800 m[IU]/L Normal 0.270-4.20 0 [facility] Comment on above: Order Comment: Speci men Type: BLOOD SPECIMENOrdering Facility: [facility] Address: [address] [place] [address] Performed By: #### 3 016-3 ####[facility] LABCLIA [id number] [place] [address] [place] CBC W Auto Differential pane l (Bld)on 11-16-2022 Basophils (Bld) [#/Vol] 0.00 10*3/uL <0.11 k/uL [facility] Basophils/100 WBC (Bld) 0.0 % [facility] Differential cell count method Nom (Bld) Manual [facility] Eosinophils (Bld) [#/Vol] 0.00 10*3/uL <0.46 k/uL [facility] Eosinophils/100 WBC (Bld) 0.0 % [facility] Erythrocyte distribution width (RBC) [Ratio] 13.8 % 11.5 - 15.0 % [facility] Hematocrit (Bld) [Volume fraction] 35.7 % Low 36.0 - 46.0 % [facility] Hemoglobin (Bld) [Mass/Vol] 11.7 g/dL 11.5 - 15.5 g/dL [facility] Lymphocytes (Bld) [#/Vol] 0.15 10*3/uL Low 1.00 - 4.00 k/uL [facility] Lymphocytes/100 WBC (Bld) 2.0 % [facility] MCH (RBC) [Entitic mass] 29.7 pg 26.0 - 34.0 pg [facility] MCHC (RBC) [Mass/Vol] 32.8 g/dL 30.5 - 36.0 g/dL [facility] MCV (RBC) [Entitic vol] 90.6 fL 80.0 - 100.0 fL [facility] [place] % 1.0 % [facility] Monocytes (Bld) [#/Vol] 0.38 10*3/uL <0.87 k/uL [facility] Monocytes/100 WBC (Bld) 5.0 % [facility] Neutrophils (Bld) [#/Vol] 6.97 10*3/uL 1.45 - 7.50 k/uL [facility] Neutrophils/100 WBC (Bld) 92.0 % [facility] Nucleated RBC (Bld) [#/Vol] <0.01 k/uL [facility] Nucleated RBC/100 WBC (Bld) [Ratio] 0.0 /100 WBC [facility] Platelet mean volume (Bld) [Entitic vol] 10.7 fL 9.0 - 12.7 fL [facility] Platelets (Bld) [#/Vol] 152 10*3/uL 150 - 400 k/uL [facility] Platelets Estimate (Bld) [#/Vol] Adequate [facility] RBC (Bld) [#/Vol] 3.94 10*6/uL 3.90 - 5.20 m/uL [facility] Red Cell Morph Reviewed: unremarkable [facility] WBC (Bld) [#/Vol] 7.58 10*3/uL 3.70 - 11.00 k/uL [facility] WBC Left Shift Ql (Bld) Present [facility] Basophils (Bld) [#/Vol] 0.00 10*3/uL Normal <0.11 [facility] Comment on above: Order Comment: Speci men Type: BLOOD SPECIMENOrdering Facility: [facility] Address: [address] [place] [address] Performed By: #### 5 7021-8 ####[facility] LABORATORYCLIA [id number] [place] [address] [place] Basophils/100 WBC (Bld) 0.0 % Normal [facility] Comment on above: Order Comment: Speci men Type: BLOOD SPECIMENOrdering Facility: [facility] Address: [address] [place] [address] Performed By: #### 5 7021-8 ####[facility] LABORATORYCLIA [id number] [place] [address] [place] Differential cell count method Nom (Bld) Manual Normal [facility] Comment on above: Order Comment: Speci men Type: BLOOD SPECIMENOrdering Facility: [facility] Address: [address] [place] [address] Performed By: #### 5 7021-8 ####[facility] LABORATORYCLIA [id number] [place] [address] [place] Eosinophils (Bld) [#/Vol] 0.00 10*3/uL Normal <0.46 [facility] Comment on above: Order Comment: Speci men Type: BLOOD SPECIMENOrdering Facility: [facility] Address: [address] [place] [address] Performed By: #### 5 7021-8 ####[facility] LABORATORYCLIA [id number] [place] [address] [place] Eosinophils/100 WBC (Bld) 0.0 % Normal [facility] Comment on above: Order Comment: Speci men Type: BLOOD SPECIMENOrdering Facility: [facility] Address: [address] [place] [address] Performed By: #### 5 7021-8 ####[facility] LABORATORYCLIA [id number] [place] [address] [place] Erythrocyte distribution width (RBC) [Ratio] 13.8 % Normal 11.5-15.0 [facility] Comment on above: Order Comment: Speci men Type: BLOOD SPECIMENOrdering Facility: [facility] Address: [address] [place] [address] Performed By: #### 5 7021-8 ####[facility] LABORATORYCLIA [id number] [place] [address] [place] Hematocrit (Bld) [Volume fraction] 35.7 % Low 36.0-46.0 [facility] Comment on above: Order Comment: Speci men Type: BLOOD SPECIMENOrdering Facility: [facility] Address: [address] [place] [address] Performed By: #### 5 7021-8 ####[facility] LABORATORYCLIA [id number] [place] [address] [place] Hemoglobin (Bld) [Mass/Vol] 11.7 g/dL Normal 11.5-15.5 [facility] Comment on above: Order Comment: Speci men Type: BLOOD SPECIMENOrdering Facility: [facility] Address: [address] [place] [address] Performed By: #### 5 7021-8 ####[facility] LABORATORYCLIA [id number] [place] [address] [place] Lymphocytes (Bld) [#/Vol] 0.15 10*3/uL Low 1.00-4.00 [facility] Comment on above: Order Comment: Speci men Type: BLOOD SPECIMENOrdering Facility: [facility] Address: [address] [place] [address] Performed By: #### 5 7021-8 ####[facility] LABORATORYCLIA [id number] [place] [address] [place] Lymphocytes/100 WBC (Bld) 2.0 % Normal [facility] Comment on above: Order Comment: Speci men Type: BLOOD SPECIMENOrdering Facility: [facility] Address: [address] [place] [address] Performed By: #### 5 7021-8 ####MICHAEL LABORATORYCLIA [id number] [place] [address] [place] MCH (RBC) [Entitic mass] 29.7 pg Normal 26.0-34.0 [facility] Comment on above: Order Comment: Speci men Type: BLOOD SPECIMENOrdering Facility: [facility] Address: [address] [place] [address] Performed By: #### 5 7021-8 ####MICHAEL LABORATORYCLIA [id number] [place] [address] [place] MCHC (RBC) [Mass/Vol] 32.8 g/dL Normal 30.5-36.0 [facility] Comment on above: Order Comment: Speci men Type: BLOOD SPECIMENOrdering Facility: [facility] Address: [address] [place] [address] Performed By: #### 5 7021-8 ####MICHAEL LABORATORYCLIA [id number] [place] [address] [place] MCV (RBC) [Entitic vol] 90.6 fL Normal 80.0-100.0 [facility] Comment on above: Order Comment: Speci men Type: BLOOD SPECIMENOrdering Facility: [facility] Address: [address] [place] [address] Performed By: #### 5 7021-8 ####MICHAEL LABORATORYCLIA [id number] [place] [address] [place] Metamyelocytes/100 WBC (Bld) 1.0 % Normal [facility] Comment on above: Order Comment: Speci men Type: BLOOD SPECIMENOrdering Facility: [facility] [facility] Address: [address] [place] [address] Performed By: #### 5 7021-8 ####MICHAEL LABORATORYCLIA [id number] [place] [address] [place] Monocytes (Bld) [#/Vol] 0.38 10*3/uL Normal <0.87 [facility] Comment on above: Order Comment: Speci men Type: BLOOD SPECIMENOrdering Facility: [facility] Address: [address] [place] [address] Performed By: #### 5 7021-8 ####MICHAEL LABORATORYCLIA [id number] [place] [address] [place] Monocytes/100 WBC (Bld) 5.0 % Normal [facility] Comment on above: Order Comment: Speci men Type: BLOOD SPECIMENOrdering Facility: [facility] Address: [address] [place] [address] Performed By: #### 5 7021-8 ####MICHAEL LABORATORYCLIA [id number] [place] [id number] [place] Neutrophils (Bld) [#/Vol] 6.97 10*3/uL Normal 1.45-7.50 [facility] Comment on above: Order Comment: Speci men Type: BLOOD SPECIMENOrdering Facility: [facility] Address: [address] [place] [address] Performed By: #### 5 7021-8 ####MICHAEL LABORATORYCLIA [id number] [place] [id number] [place] Neutrophils/100 WBC (Bld) 92.0 % Normal [facility] Comment on above: Order Comment: Speci men Type: BLOOD SPECIMENOrdering Facility: [facility] Address: [address] [place] [address] Performed By: #### 5 7021-8 ####MICHAEL LABORATORYCLIA [id number] [place] [id number] [place] Nucleated RBC (Bld) [#/Vol] 10*3/uL Normal <0.01 [facility] Comment on above: Order Comment: Speci men Type: BLOOD SPECIMENOrdering Facility: [facility] Address: [address] [place] [address] Performed By: #### 5 7021-8 ####MICHAEL LABORATORYCLIA [id number] [place] [address] [place] Nucleated RBC/100 WBC (Bld) [Ratio] 0.0 /100 WBC Normal [facility] Comment on above: Order Comment: Speci men Type: BLOOD SPECIMENOrdering Facility: [facility] Address: [address] [place] [address] Performed By: #### 5 7021-8 ####MICHAEL LABORATORYCLIA [id number] [place] [address] [place] Platelet mean volume (Bld) [Entitic vol] 10.7 fL Normal 9.0-12.7 [facility] Comment on above: Order Comment: Speci men Type: BLOOD SPECIMENOrdering Facility: [facility] Address: [address] [place] [address] Performed By: #### 5 7021-8 ####MICHAEL LABORATORYCLIA [id number] [place] [address] [place] Platelets (Bld) [#/Vol] 152 10*3/uL Normal 150-400 [facility] Comment on above: Order Comment: Speci men Type: BLOOD SPECIMENOrdering Facility: [facility] Address: [address] [place] [address] Performed By: #### 5 7021-8 ####MICHAEL LABORATORYCLIA [id number] [place] [id number] [place] Platelets Estimate (Bld) [#/Vol] Adequate Normal [facility] Comment on above: Order Comment: Speci men Type: BLOOD SPECIMENOrdering Facility: [facility] Address: [address] [place] [address] Performed By: #### 5 7021-8 ####MICHAEL LABORATORYCLIA [id number] [place] [id number] [place] RBC (Bld) [#/Vol] 3.94 10*6/uL Normal 3.90-5.20 [facility] Comment on above: Order Comment: Speci men Type: BLOOD SPECIMENOrdering Facility: [facility] Address: [address] [place] [address] Performed By: #### 5 7021-8 ####MICHAEL LABORATORYCLIA [id number] [place] [id number] [place] RED CELL MORPH Reviewed: unremarkable Normal [facility] Comment on above: Order Comment: Speci men Type: BLOOD SPECIMENOrdering Facility: [facility] Address: [address] [place] [address] Performed By: #### 5 7021-8 ####MICHAEL LABORATORYCLIA [id number] [place] [address] [place] WBC (Bld) [#/Vol] 7.58 10*3/uL Normal 3.70-11.00 [facility] Comment on above: Order Comment: Speci men Type: BLOOD SPECIMENOrdering Facility: [facility] Address: [address] [place] [address] Performed By: #### 5 7021-8 ####MICHAEL LABORATORYCLIA [id number] [place] [address] [place] WBC Left Shift Ql (Bld) Present Normal [facility] Comment on above: Order Comment: Speci men Type: BLOOD SPECIMENOrdering Facility: [facility] Address: [address] [place] [address] Performed By: #### 5 7021-8 ####MICHAEL LABORATORYCLIA [id number] [place] [address] [place] Comprehensive metabolic 2000 panelon 11-16-2022 Albumin [Mass/Vol] 3.6 g/dL Low 3.9 - 4.9 g/dL [facility] ALP [Catalytic activity/Vol] 36 U/L 34 - 123 U/L [facility] ALT [Catalytic activity/Vol] 19 U/L 7 - 38 U/L [facility] Anion gap [Moles/Vol] 8 mmol/L Low 9 - 18 mmol/L [facility] AST [Catalytic activity/Vol] 13 U/L 13 - 35 U/L [facility] Bilirubin [Mass/Vol] 0.6 mg/dL 0.2 - 1 .3 mg/dL [facility] Calcium [Mass/Vol] 9.2 mg/dL 8.5 - 10. 2 mg/dL [facility] Chloride [Moles/Vol] 101 mmol/L 97 - 10 5 mmol/L [facility] CO2 [Moles/Vol] 27 mmol/L 22 - 30 mmol/L [facility] Creatinine [Mass/Vol] 0.89 mg/dL 0.58 - 0.96 mg/dL [facility] Estimated Glomerular Filtration Rate 66 mL/min/1.73m >=60 mL/min/1.7 3m [facility] Glucose [Mass/Vol] 91 mg/dL 74 - 99 mg/dL [facility] Potassium [Moles/Vol] 4.5 mmol/L 3.7 - 5.1 mmol/L [facility] Protein [Mass/Vol] 5.2 g/dL Low 6.3 - 8.0 g/dL [facility] Sodium [Moles/Vol] 136 mmol/L 136 - 144 mmol/L [facility] Urea nitrogen [Mass/Vol] 36 mg/dL High 7 - 21 mg/dL [facility] Albumin [Mass/Vol] 3.6 g/dL Low 3.9-4.9 [facility] Comment on above: Order Comment: Speci men Type: BLOOD SPECIMENOrdering Facility: [facility] Address: [address] [place] [address] Performed By: #### 2 4323-8 ####MICHAEL LABORATORYCLIA [id number] [place] [address] [place] ALP [Catalytic activity/Vol] 36 U/L Normal 34-123 [facility] Comment on above: Order Comment: Speci men Type: BLOOD SPECIMENOrdering Facility: [facility] Address: [address] [place] [address] Performed By: #### 2 4323-8 ####MICHAEL LABORATORYCLIA [id number] [place] [address] [place] ALT [Catalytic activity/Vol] 19 U/L Normal 7-38 [facility] Comment on above: Order Comment: Speci men Type: BLOOD SPECIMENOrdering Facility: [facility] Address: [address] [place] [address] Performed By: #### 2 4323-8 ####MICHAEL LABORATORYCLIA [id number] [place] [address] [place] Anion gap [Moles/Vol] 8 mmol/L Low 9-18 [facility] Comment on above: Order Comment: Speci men Type: BLOOD SPECIMENOrdering Facility: [facility] Address: [address] [place] [address] Performed By: #### 2 4323-8 ####MICHAEL LABORATORYCLIA [id number] [place] [address] [place] AST [Catalytic activity/Vol] 13 U/L Normal 13-35 [facility] Comment on above: Order Comment: Speci men Type: BLOOD SPECIMENOrdering Facility: [facility] Address: [address] [place] [address] Performed By: #### 2 4323-8 ####MICHAEL LABORATORYCLIA [id number] [place] [address] [place] Bilirubin [Mass/Vol] 0.6 mg/dL Normal 0.2-1.3 [facility] Comment on above: Order Comment: Speci men Type: BLOOD SPECIMENOrdering Facility: [facility] Address: [address] [place] [address] Performed By: #### 2 4323-8 ####MICHAEL LABORATORYCLIA [id number] [place] [address] [place] Calcium [Mass/Vol] 9.2 mg/dL Normal 8.5-10.2 [facility] Comment on above: Order Comment: Speci men Type: BLOOD SPECIMENOrdering Facility: [facility] Address: [address] [place] [address] Performed By: #### 2 4323-8 ####MICHAEL LABORATORYCLIA [id number] [place] [id number] [place] Chloride [Moles/Vol] 101 mmol/L Normal 97-105 [facility] Comment on above: Order Comment: Speci men Type: BLOOD SPECIMENOrdering Facility: [facility] Address: [address] [place] [address] Performed By: #### 2 4323-8 ####MICHAEL LABORATORYCLIA [id number] [place] [address] [place] CO2 [Moles/Vol] 27 mmol/L Normal 22-30 [facility] Comment on above: Order Comment: Speci men Type: BLOOD SPECIMENOrdering Facility: [facility] Address: [address] [place] [address] Performed By: #### 2 4323-8 ####MICHAEL LABORATORYCLIA [id number] [place] [id number] [place] Creatinine [Mass/Vol] 0.89 mg/dL Normal 0.58-0.96 [facility] Comment on above: Order Comment: Speci men Type: BLOOD SPECIMENOrdering Facility: [facility] Address: [address] [place] [address] Performed By: #### 2 4323-8 ####MICHAEL LABORATORYCLIA [id number] [place] [address] [place] ESTIMATED GLOMERULAR FILTRATION RATE 66 mL/min/1.73m??? Normal >=60 [facility] Comment on above: Order Comment: Speci men Type: BLOOD SPECIMENOrdering Facility: [facility] Address: [address] [place] [address] Result Comment: Kim mated Glomerular Filtration Rate [...] Performed By: #### 2 4323-8 ####MICHAEL LABORATORYCLIA [id number] [place] [id number] [place] Glucose [Mass/Vol] 91 mg/dL Normal 74-99 [facility] Comment on above: Order Comment: Speci men Type: BLOOD SPECIMENOrdering Facility: [facility] Address: [address] [place] [address] Result Comment: The [place] [employer] (ADA) provides guidance for cutoff [...] Standards of Medical Care in Diabetes 2016, [place] [employer]. Diabetes Care. 2016.39(Suppl 1). Performed By: #### 2 4323-8 ####MICHAEL LABORATORYCLIA [id number] [place] [id number] [place] Potassium [Moles/Vol] 4.5 mmol/L Normal 3.7-5.1 [facility] Comment on above: Order Comment: Speci men Type: BLOOD SPECIMENOrdering Facility: [facility] Address: [address] [place] [address] Performed By: #### 2 4323-8 ####MICHAEL LABORATORYCLIA [id number] [place] [id number] [place] Protein [Mass/Vol] 5.2 g/dL Low 6.3-8.0 [facility] Comment on above: Order Comment: Speci men Type: BLOOD SPECIMENOrdering Facility: [facility] Address: [address] [place] [address] Performed By: #### 2 4323-8 ####MICHAEL LABORATORYCLIA [id number] [place] [id number] [place] Sodium [Moles/Vol] 136 mmol/L Normal 136-144 [facility] Comment on above: Order Comment: Speci men Type: BLOOD SPECIMENOrdering Facility: [facility] Address: [address] [place] [address] Performed By: #### 2 4323-8 ####MICHAEL LABORATORYCLIA [id number] [place] [id number] [place] Urea nitrogen [Mass/Vol] 36 mg/dL High 7-21 [facility] Comment on above: Order Comment: Speci men Type: BLOOD SPECIMENOrdering Facility: [facility] Address: [address] [place] [address] Performed By: #### 2 4323-8 ####VERNON LABORATORYCLIA [id number] [place] [address] [place] CBC W Auto Differential pane l (Bld)on 11-13-2022 Basophils (Bld) [#/Vol] <0.11 k/uL [facility] Basophils/100 WBC (Bld) 0.1 % [facility] Differential cell count method Nom (Bld) Auto [facility] Eosinophils (Bld) [#/Vol] <0.46 k/uL [facility] Eosinophils/100 WBC (Bld) 0.0 % [facility] Erythrocyte distribution width (RBC) [Ratio] 13.7 % 11.5 - 15.0 % [facility] Hematocrit (Bld) [Volume fraction] 36.9 % 36.0 - 46.0 % [facility] Hemoglobin (Bld) [Mass/Vol] 12.1 g/dL 11.5 - 15.5 g/dL [facility] Immature granulocytes (Bld) [#/Vol] 0.14 10*3/uL High <0.10 k/uL [facility] Immature granulocytes/100 WBC (Bld) 2.0 % [facility] Lymphocytes (Bld) [#/Vol] 0.34 10*3/uL Low 1.00 - 4.00 k/uL [facility] Lymphocytes/100 WBC (Bld) 4.8 % [facility] MCH (RBC) [Entitic mass] 30.3 pg 26.0 - 34.0 pg [facility] MCHC (RBC) [Mass/Vol] 32.8 g/dL 30.5 - 36.0 g/dL [facility] MCV (RBC) [Entitic vol] 92.3 fL 80.0 - 100.0 fL [facility] Monocytes (Bld) [#/Vol] 0.56 10*3/uL <0.87 k/uL [facility] Monocytes/100 WBC (Bld) 7.9 % [facility] Neutrophils (Bld) [#/Vol] 6.04 10*3/uL 1.45 - 7.50 k/uL [facility] Neutrophils/100 WBC (Bld) 85.2 % [facility] Nucleated RBC (Bld) [#/Vol] <0.01 k/uL [facility] Nucleated RBC/100 WBC (Bld) [Ratio] 0.0 /100 WBC [facility] Platelet mean volume (Bld) [Entitic vol] 11.0 fL 9.0 - 12.7 fL [facility] Platelets (Bld) [#/Vol] 148 10*3/uL Low 150 - 400 k/uL [facility] RBC (Bld) [#/Vol] 4.00 10*6/uL 3.90 - 5.20 m/uL [facility] WBC (Bld) [#/Vol] 7.09 10*3/uL 3.70 - 11.00 k/uL [facility] Basophils (Bld) [#/Vol] 10*3/uL Normal <0.11 [facility] Comment on above: Order Comment: Speci men Type: BLOOD SPECIMENOrdering Facility: [facility] Address: [address] [place] [address] Performed By: #### 5 7021-8 ####MICHAEL LABORATORYCLIA [id number] [place] [address] [place] Basophils/100 WBC (Bld) 0.1 % Normal [facility] Comment on above: Order Comment: Speci men Type: BLOOD SPECIMENOrdering Facility: [facility] Address: [address] [place] [address] Performed By: #### 5 7021-8 ####MICHAEL LABORATORYCLIA [id number] [place] [address] [place] Differential cell count method Nom (Bld) Auto Normal [facility] Comment on above: Order Comment: Speci men Type: BLOOD SPECIMENOrdering Facility: [facility] Address: [address] [place] [address] Performed By: #### 5 7021-8 ####MICHAEL LABORATORYCLIA [id number] [place] [address] [place] Eosinophils (Bld) [#/Vol] 10*3/uL Normal <0.46 [facility] Comment on above: Order Comment: Speci men Type: BLOOD SPECIMENOrdering Facility: [facility] Address: [address] [place] [address] Performed By: #### 5 7021-8 ####MICHAEL LABORATORYCLIA [id number] [place] [id number] [place] Eosinophils/100 WBC (Bld) 0.0 % Normal [facility] Comment on above: Order Comment: Speci men Type: BLOOD SPECIMENOrdering Facility: [facility] Address: [address] [place] [address] Performed By: #### 5 7021-8 ####MICHAEL LABORATORYCLIA [id number] [place] [address] [place] Erythrocyte distribution width (RBC) [Ratio] 13.7 % Normal 11.5-15.0 [facility] Comment on above: Order Comment: Speci men Type: BLOOD SPECIMENOrdering Facility: [facility] Address: [address] [place] [address] Performed By: #### 5 7021-8 ####MICHAEL LABORATORYCLIA [id number] [place] [address] [place] Hematocrit (Bld) [Volume fraction] 36.9 % Normal 36.0-46.0 [facility] Comment on above: Order Comment: Speci men Type: BLOOD SPECIMENOrdering Facility: [facility] Address: [address] [place] [address] Performed By: #### 5 7021-8 ####MICHAEL LABORATORYCLIA [id number] [place] [address] [place] Hemoglobin (Bld) [Mass/Vol] 12.1 g/dL Normal 11.5-15.5 [facility] Comment on above: Order Comment: Speci men Type: BLOOD SPECIMENOrdering Facility: [facility] Address: [address] [place] [address] Performed By: #### 5 7021-8 ####MICHAEL LABORATORYCLIA [id number] [place] [address] [place] Immature granulocytes (Bld) [#/Vol] 0.14 10*3/uL High <0.10 [facility] Comment on above: Order Comment: Speci men Type: BLOOD SPECIMENOrdering Facility: [facility] Address: [address] [place] [address] Performed By: #### 5 7021-8 ####MICHAEL LABORATORYCLIA [id number] [place] [address] [place] Immature granulocytes/100 WBC (Bld) 2.0 % Normal [facility] Comment on above: Order Comment: Speci men Type: BLOOD SPECIMENOrdering Facility: [facility] Address: [address] [place] [address] Performed By: #### 5 7021-8 ####MICHAEL LABORATORYCLIA [id number] [place] [address] [place] Lymphocytes (Bld) [#/Vol] 0.34 10*3/uL Low 1.00-4.00 [facility] Comment on above: Order Comment: Speci men Type: BLOOD SPECIMENOrdering Facility: [facility] Address: [address] [place] [address] Performed By: #### 5 7021-8 ####MICHAEL LABORATORYCLIA [id number] [place] [address] [place] Lymphocytes/100 WBC (Bld) 4.8 % Normal [facility] Comment on above: Order Comment: Speci men Type: BLOOD SPECIMENOrdering Facility: [facility] Address: [address] [place] [address] Performed By: #### 5 7021-8 ####MICHAEL LABORATORYCLIA [id number] [place] [id number] [place] MCH (RBC) [Entitic mass] 30.3 pg Normal 26.0-34.0 [facility] Comment on above: Order Comment: Speci men Type: BLOOD SPECIMENOrdering Facility: [facility] Address: [address] [place] [address] Performed By: #### 5 7021-8 ####MICHAEL LABORATORYCLIA [id number] [place] [address] [place] MCHC (RBC) [Mass/Vol] 32.8 g/dL Normal 30.5-36.0 [facility] Comment on above: Order Comment: Speci men Type: BLOOD SPECIMENOrdering Facility: [facility] Address: [address] [place] [address] Performed By: #### 5 7021-8 ####MICHAEL LABORATORYCLIA [id number] [place] [address] [place] MCV (RBC) [Entitic vol] 92.3 fL Normal 80.0-100.0 [facility] Comment on above: Order Comment: Speci men Type: BLOOD SPECIMENOrdering Facility: [facility] Address: [address] [place] [address] Performed By: #### 5 7021-8 ####MICHAEL LABORATORYCLIA [id number] [place] [address] [place] Monocytes (Bld) [#/Vol] 0.56 10*3/uL Normal <0.87 [facility] Comment on above: Order Comment: Speci men Type: BLOOD SPECIMENOrdering Facility: [facility] Address: [address] [place] [address] Performed By: #### 5 7021-8 ####MICHAEL LABORATORYCLIA [id number] [place] [address] [place] Monocytes/100 WBC (Bld) 7.9 % Normal [facility] Comment on above: Order Comment: Speci men Type: BLOOD SPECIMENOrdering Facility: [facility] Address: [address] [place] [address] Performed By: #### 5 7021-8 ####MICHAEL LABORATORYCLIA [id number] [place] [address] [place] Neutrophils (Bld) [#/Vol] 6.04 10*3/uL Normal 1.45-7.50 [facility] Comment on above: Order Comment: Speci men Type: BLOOD SPECIMENOrdering Facility: [facility] Address: [address] [place] [address] Performed By: #### 5 7021-8 ####MICHAEL LABORATORYCLIA [id number] [place] [id number] [place] Neutrophils/100 WBC (Bld) 85.2 % Normal [facility] Comment on above: Order Comment: Speci men Type: BLOOD SPECIMENOrdering Facility: [facility] Address: [address] [place] [address] Performed By: #### 5 7021-8 ####MICHAEL LABORATORYCLIA [id number] [place] [address] [place] Nucleated RBC (Bld) [#/Vol] 10*3/uL Normal <0.01 [facility] Comment on above: Order Comment: Speci men Type: BLOOD SPECIMENOrdering Facility: [facility] Address: [address] [place] [address] Performed By: #### 5 7021-8 ####MICHAEL LABORATORYCLIA [id number] [place] [address] [place] Nucleated RBC/100 WBC (Bld) [Ratio] 0.0 /100 WBC Normal [facility] Comment on above: Order Comment: Speci men Type: BLOOD SPECIMENOrdering Facility: [facility] Address: [address] [place] [address] Performed By: #### 5 7021-8 ####MICHAEL LABORATORYCLIA [id number] [place] [address] [place] Platelet mean volume (Bld) [Entitic vol] 11.0 fL Normal 9.0-12.7 [facility] Comment on above: Order Comment: Speci men Type: BLOOD SPECIMENOrdering Facility: [facility] Address: [address] [place] [address] Performed By: #### 5 7021-8 ####MICHAEL LABORATORYCLIA [id number] [place] [address] [place] Platelets (Bld) [#/Vol] 148 10*3/uL Low 150-400 [facility] Comment on above: Order Comment: Speci men Type: BLOOD SPECIMENOrdering Facility: [facility] Address: [address] [place] [address] Performed By: #### 5 7021-8 ####MICHAEL LABORATORYCLIA [id number] [place] [id number] [facility] RBC (Bld) [#/Vol] 4.00 10*6/uL Normal 3.90-5.20 [facility] Comment on above: Order Comment: Speci men Type: BLOOD SPECIMENOrdering Facility: [facility] Address: [address] [place] [address] Performed By: #### 5 7021-8 ####MICHAEL LABORATORYCLIA [id number] [place] [id number] [facility] WBC (Bld) [#/Vol] 7.09 10*3/uL Normal 3.70-11.00 [facility] Comment on above: Order Comment: Speci men Type: BLOOD SPECIMENOrdering Facility: [facility] Address: [address] [place] [address] Performed By: #### 5 7021-8 ####MICHAEL LABORATORYCLIA [id number] [place] [id number] [facility] Comprehensive metabolic 2000 panelon 11-13-2022 Albumin [Mass/Vol] 3.7 g/dL Low 3.9 - 4.9 g/dL [facility] ALP [Catalytic activity/Vol] 39 U/L 34 - 123 U/L [facility] ALT [Catalytic activity/Vol] 19 U/L 7 - 38 U/L [facility] Anion gap [Moles/Vol] 11 mmol/L 9 - 18 mmol/L [facility] AST [Catalytic activity/Vol] 14 U/L 13 - 35 U/L [facility] Bilirubin [Mass/Vol] 0.5 mg/dL 0.2 - 1 .3 mg/dL [facility] Calcium [Mass/Vol] 9.3 mg/dL 8.5 - 10. 2 mg/dL [facility] Chloride [Moles/Vol] 101 mmol/L 97 - 10 5 mmol/L [facility] CO2 [Moles/Vol] 26 mmol/L 22 - 30 mmol/L [facility] Creatinine [Mass/Vol] 0.85 mg/dL 0.58 - 0.96 mg/dL [facility] Estimated Glomerular Filtration Rate 70 mL/min/1.73m >=60 mL/min/1.7 3m [facility] Glucose [Mass/Vol] 98 mg/dL 74 - 99 mg/dL [facility] Potassium [Moles/Vol] 5.1 mmol/L 3.7 - 5.1 mmol/L [facility] Protein [Mass/Vol] 5.2 g/dL Low 6.3 - 8.0 g/dL [facility] Sodium [Moles/Vol] 138 mmol/L 136 - 144 mmol/L [facility] Urea nitrogen [Mass/Vol] 42 mg/dL High 7 - 21 mg/dL [facility] Albumin [Mass/Vol] 3.7 g/dL Low 3.9-4.9 [facility] Comment on above: Order Comment: Speci men Type: BLOOD SPECIMENOrdering Facility: [facility] Address: [address] [place] [address] Performed By: #### 2 4323-8 ####MICHAEL LABORATORYCLIA [id number] [place] [id number] [place] ALP [Catalytic activity/Vol] 39 U/L Normal 34-123 [facility] Comment on above: Order Comment: Speci men Type: BLOOD SPECIMENOrdering Facility: [facility] Address: [address] [place] [address] Performed By: #### 2 4323-8 ####MICHAEL LABORATORYCLIA [id number] [place] [id number] [place] ALT [Catalytic activity/Vol] 19 U/L Normal 7-38 [facility] Comment on above: Order Comment: Speci men Type: BLOOD SPECIMENOrdering Facility: [facility] Address: [address] [place] [address] Performed By: #### 2 4323-8 ####MICHAEL LABORATORYCLIA [id number] [place] [id number] [place] Anion gap [Moles/Vol] 11 mmol/L Normal 9-18 [facility] Comment on above: Order Comment: Speci men Type: BLOOD SPECIMENOrdering Facility: [facility] Address: [address] [place] [address] Performed By: #### 2 4323-8 ####MICHAEL LABORATORYCLIA [id number] [place] [address] [place] AST [Catalytic activity/Vol] 14 U/L Normal 13-35 [facility] Comment on above: Order Comment: Speci men Type: BLOOD SPECIMENOrdering Facility: [facility] Address: [address] [place] [address] Performed By: #### 2 4323-8 ####MICHAEL LABORATORYCLIA [id number] [place] [id number] [place] Bilirubin [Mass/Vol] 0.5 mg/dL Normal 0.2-1.3 [facility] Comment on above: Order Comment: Speci men Type: BLOOD SPECIMENOrdering Facility: [facility] Address: [address] [place] [address] Performed By: #### 2 4323-8 ####MICHAEL LABORATORYCLIA [id number] [place] [address] [place] Calcium [Mass/Vol] 9.3 mg/dL Normal 8.5-10.2 [facility] Comment on above: Order Comment: Speci men Type: BLOOD SPECIMENOrdering Facility: [facility] Address: [address] [place] [address] Performed By: #### 2 4323-8 ####MICHAEL LABORATORYCLIA [id number] [place] [id number] [place] Chloride [Moles/Vol] 101 mmol/L Normal 97-105 [facility] Comment on above: Order Comment: Speci men Type: BLOOD SPECIMENOrdering Facility: [facility] Address: [address] [place] [address] Performed By: #### 2 4323-8 ####MICHAEL LABORATORYCLIA [id number] [place] [id number] [place] CO2 [Moles/Vol] 26 mmol/L Normal 22-30 [facility] Comment on above: Order Comment: Speci men Type: BLOOD SPECIMENOrdering Facility: [facility] Address: [address] [place] [address] Performed By: #### 2 4323-8 ####MICHAEL LABORATORYCLIA [id number] [place] [id number] [place] Creatinine [Mass/Vol] 0.85 mg/dL Normal 0.58-0.96 [facility] Comment on above: Order Comment: Speci men Type: BLOOD SPECIMENOrdering Facility: [facility] Address: [address] [place] [address] Performed By: #### 2 4323-8 ####MICHAEL LABORATORYCLIA [id number] [place] [id number] [place] ESTIMATED GLOMERULAR FILTRATION RATE 70 mL/min/1.73m??? Normal >=60 [facility] Comment on above: Order Comment: Speci men Type: BLOOD SPECIMENOrdering Facility: [facility] Address: [address] [place] [address] Result Comment: Kim mated Glomerular Filtration Rate [...] Performed By: #### 2 4323-8 ####MICHAEL LABORATORYCLIA [id number] [place] [id number] [place] Glucose [Mass/Vol] 98 mg/dL Normal 74-99 [facility] Comment on above: Order Comment: Speci men Type: BLOOD SPECIMENOrdering Facility: [facility] Address: [address] [place] [address] Result Comment: The [place] Diabetes Association (ADA) provides guidance for cutoff [...] Standards of Medical Care in Diabetes 2016, [place] [employer]. Diabetes Care. 2016.39(Suppl 1). Performed By: #### 2 4323-8 ####MICHAEL LABORATORYCLIA [id number] [place] [address] [place] Potassium [Moles/Vol] 5.1 mmol/L Normal 3.7-5.1 [facility] Comment on above: Order Comment: Speci men Type: BLOOD SPECIMENOrdering Facility: [facility] Address: [address] [place] [address] Performed By: #### 2 4323-8 ####MICHAEL LABORATORYCLIA [id number] [place] [id number] [place] Protein [Mass/Vol] 5.2 g/dL Low 6.3-8.0 [facility] Comment on above: Order Comment: Speci men Type: BLOOD SPECIMENOrdering Facility: [facility] Address: [address] [place] [address] Performed By: #### 2 4323-8 ####MICHAEL LABORATORYCLIA [id number] [place] [address] [place] Sodium [Moles/Vol] 138 mmol/L Normal 136-144 [facility] Comment on above: Order Comment: Speci men Type: BLOOD SPECIMENOrdering Facility: [facility] Address: [address] [place] [address] Performed By: #### 2 4323-8 ####MICHAEL LABORATORYCLIA [id number] [place] [id number] [place] Urea nitrogen [Mass/Vol] 42 mg/dL High 7-21 [facility] Comment on above: Order Comment: Speci men Type: BLOOD SPECIMENOrdering Facility: [facility] Address: [address] [place] [address] Performed By: #### 2 4323-8 ####VERNON LABORATORYIA [id number] [place] [address] [place] CBC W Auto Differential pane l (Bld)on 11-09-2022 Basophils (Bld) [#/Vol] <0.11 k/uL [facility] Bas[facility]/100 WBC (Bld) 0.1 % [facility] Differential cell count method Nom (Bld) Auto [facility] Eosinophils (Bld) [#/Vol] <0.46 k/uL [facility] Eosinophils/100 WBC (Bld) 0.1 % [facility] Erythrocyte distribution width (RBC) [Ratio] 13.5 % 11.5 - 15.0 % [facility] Hematocrit (Bld) [Volume fraction] 38.5 % 36.0 - 46.0 % [facility] Hemoglobin (Bld) [Mass/Vol] 12.8 g/dL 11.5 - 15.5 g/dL [facility] Immature granulocytes (Bld) [#/Vol] 0.14 10*3/uL High <0.10 k/uL [facility] Immature granulocytes/100 WBC (Bld) 1.7 % [facility] Lymphocytes (Bld) [#/Vol] 0.42 10*3/uL Low 1.00 - 4.00 k/uL [facility] Lymphocytes/100 WBC (Bld) 5.1 % [facility] MCH (RBC) [Entitic mass] 29.9 pg 26.0 - 34.0 pg [facility] MCHC (RBC) [Mass/Vol] 33.2 g/dL 30.5 - 36.0 g/dL [facility] MCV (RBC) [Entitic vol] 90.0 fL 80.0 - 100.0 fL [facility] Monocytes (Bld) [#/Vol] 0.58 10*3/uL <0.87 k/uL [facility] Monocytes/100 WBC (Bld) 7.1 % [facility] Neutrophils (Bld) [#/Vol] 7.01 10*3/uL 1.45 - 7.50 k/uL [facility] Neutrophils/100 WBC (Bld) 85.9 % [facility] Nucleated RBC (Bld) [#/Vol] <0.01 k/uL [facility] Nucleated RBC/100 WBC (Bld) [Ratio] 0.0 /100 WBC [facility] Platelet mean volume (Bld) [Entitic vol] 10.9 fL 9.0 - 12.7 fL [facility] Platelets (Bld) [#/Vol] 156 10*3/uL 150 - 400 k/uL [facility] RBC (Bld) [#/Vol] 4.28 10*6/uL 3.90 - 5.20 m/uL [facility] WBC (Bld) [#/Vol] 8.17 10*3/uL 3.70 - 11.00 k/uL [facility] Basophils (Bld) [#/Vol] 10*3/uL Normal <0.11 [facility] Comment on above: Order Comment: Speci men Type: BLOOD SPECIMENOrdering Facility: [facility] Address: [address] [place] [address] Performed By: #### 5 7021-8 ####MICHAEL LABORATORYCLIA [id number] [place] [address] [place] Basophils/100 WBC (Bld) 0.1 % Normal [facility] Comment on above: Order Comment: Speci men Type: BLOOD SPECIMENOrdering Facility: [facility] Address: [address] [place] [address] Performed By: #### 5 7021-8 ####MICHAEL LABORATORYCLIA [id number] [place] [address] [place] Differential cell count method Nom (Bld) Auto Normal [facility] Comment on above: Order Comment: Speci men Type: BLOOD SPECIMENOrdering Facility: [facility] Address: [address] [place] [address] Performed By: #### 5 7021-8 ####MICHAEL LABORATORYCLIA [id number] [place] [address] [place] Eosinophils (Bld) [#/Vol] 10*3/uL Normal <0.46 [facility] Comment on above: Order Comment: Speci men Type: BLOOD SPECIMENOrdering Facility: [facility] Address: [address] [place] [address] Performed By: #### 5 7021-8 ####MICHAEL LABORATORYCLIA [id number] [place] [address] [place] Eosinophils/100 WBC (Bld) 0.1 % Normal [facility] Comment on above: Order Comment: Speci men Type: BLOOD SPECIMENOrdering Facility: [facility] Address: [address] [place] [address] Performed By: #### 5 7021-8 ####MICHAEL LABORATORYCLIA [id number] [place] [address] [place] Erythrocyte distribution width (RBC) [Ratio] 13.5 % Normal 11.5-15.0 [facility] Comment on above: Order Comment: Speci men Type: BLOOD SPECIMENOrdering Facility: [facility] Address: [address] [place] [address] Performed By: #### 5 7021-8 ####MICHAEL LABORATORYCLIA [id number] [place] [address] [place] Hematocrit (Bld) [Volume fraction] 38.5 % Normal 36.0-46.0 [facility] Comment on above: Order Comment: Speci men Type: BLOOD SPECIMENOrdering Facility: [facility] Address: [address] [place] [address] Performed By: #### 5 7021-8 ####MICHAEL LABORATORYCLIA [id number] [place] [address] [place] Hemoglobin (Bld) [Mass/Vol] 12.8 g/dL Normal 11.5-15.5 [facility] Comment on above: Order Comment: Speci men Type: BLOOD SPECIMENOrdering Facility: [facility] Address: [address] [place] [address] Performed By: #### 5 7021-8 ####MICHAEL LABORATORYCLIA [id number] [place] [address] [place] Immature granulocytes (Bld) [#/Vol] 0.14 10*3/uL High <0.10 [facility] Comment on above: Order Comment: Speci men Type: BLOOD SPECIMENOrdering Facility: [facility] Address: [address] [place] [address] Performed By: #### 5 7021-8 ####MICHAEL LABORATORYCLIA [id number] [place] [address] [place] Immature granulocytes/100 WBC (Bld) 1.7 % Normal [facility] Comment on above: Order Comment: Speci men Type: BLOOD SPECIMENOrdering Facility: [facility] Address: [address] [place] [address] Performed By: #### 5 7021-8 ####MICHAEL LABORATORYCLIA [id number] [place] [address] [place] Lymphocytes (Bld) [#/Vol] 0.42 10*3/uL Low 1.00-4.00 [facility] Comment on above: Order Comment: Speci men Type: BLOOD SPECIMENOrdering Facility: [facility] Address: [address] [place] [address] Performed By: #### 5 7021-8 ####MICHAEL LABORATORYCLIA [id number] [place] [address] [place] Lymphocytes/100 WBC (Bld) 5.1 % Normal [facility] Comment on above: Order Comment: Speci men Type: BLOOD SPECIMENOrdering Facility: [facility] Address: [address] [place] [address] Performed By: #### 5 7021-8 ####MICHAEL LABORATORYCLIA [id number] [place] [address] [place] MCH (RBC) [Entitic mass] 29.9 pg Normal 26.0-34.0 [facility] Comment on above: Order Comment: Speci men Type: BLOOD SPECIMENOrdering Facility: [facility] Address: [address] [place] [address] Performed By: #### 5 7021-8 ####MICHAEL LABORATORYCLIA [id number] [place] [address] [place] MCHC (RBC) [Mass/Vol] 33.2 g/dL Normal 30.5-36.0 [facility] Comment on above: Order Comment: Speci men Type: BLOOD SPECIMENOrdering Facility: [facility] Address: [address] [place] [address] Performed By: #### 5 7021-8 ####MICHAEL LABORATORYCLIA [id number] [place] [address] [place] MCV (RBC) [Entitic vol] 90.0 fL Normal 80.0-100.0 [facility] Comment on above: Order Comment: Speci men Type: BLOOD SPECIMENOrdering Facility: [facility] Address: [address] [place] [address] Performed By: #### 5 7021-8 ####MICHAEL LABORATORYCLIA [id number] [place] [address] [place] Monocytes (Bld) [#/Vol] 0.58 10*3/uL Normal <0.87 [facility] Comment on above: Order Comment: Speci men Type: BLOOD SPECIMENOrdering Facility: [facility] Address: [address] [place] [address] Performed By: #### 5 7021-8 ####MICHAEL LABORATORYCLIA [id number] [place] [address] [place] Monocytes/100 WBC (Bld) 7.1 % Normal [facility] Comment on above: Order Comment: Speci men Type: BLOOD SPECIMENOrdering Facility: [facility] Address: [address] [place] [address] Performed By: #### 5 7021-8 ####MICHAEL LABORATORYCLIA [id number] [place] [address] [place] Neutrophils (Bld) [#/Vol] 7.01 10*3/uL Normal 1.45-7.50 [facility] Comment on above: Order Comment: Speci men Type: BLOOD SPECIMENOrdering Facility: [facility] Address: [address] [place] [address] Performed By: #### 5 7021-8 ####MICHAEL LABORATORYCLIA [id number] [place] [address] [place] Neutrophils/100 WBC (Bld) 85.9 % Normal [facility] Comment on above: Order Comment: Speci men Type: BLOOD SPECIMENOrdering Facility: [facility] Address: [address] [place] [address] Performed By: #### 5 7021-8 ####MICHAEL LABORATORYCLIA [id number] [place] [address] [place] Nucleated RBC (Bld) [#/Vol] 10*3/uL Normal <0.01 [facility] Comment on above: Order Comment: Speci men Type: BLOOD SPECIMENOrdering Facility: [facility] Address: [address] [place] [address] Performed By: #### 5 7021-8 ####MICHAEL LABORATORYCLIA [id number] [place] [address] [place] Nucleated RBC/100 WBC (Bld) [Ratio] 0.0 /100 WBC Normal [facility] Comment on above: Order Comment: Speci men Type: BLOOD SPECIMENOrdering Facility: [facility] Address: [address] [place] [address] Performed By: #### 5 7021-8 ####MICHAEL LABORATORYCLIA [id number] [place] [address] [place] Platelet mean volume (Bld) [Entitic vol] 10.9 fL Normal 9.0-12.7 [facility] Comment on above: Order Comment: Speci men Type: BLOOD SPECIMENOrdering Facility: [facility] Address: [address] [place] [address] Performed By: #### 5 7021-8 ####MICHAEL LABORATORYCLIA [id number] [place] [address] [place] Platelets (Bld) [#/Vol] 156 10*3/uL Normal 150-400 [facility] Comment on above: Order Comment: Speci men Type: BLOOD SPECIMENOrdering Facility: [facility] Address: [address] [place] [address] Performed By: #### 5 7021-8 ####MICHAEL LABORATORYCLIA [id number] [place] [address] [facility] RBC (Bld) [#/Vol] 4.28 10*6/uL Normal 3.90-5.20 [facility] Comment on above: Order Comment: Speci men Type: BLOOD SPECIMENOrdering Facility: [facility] Address: [address] [place] [address] Performed By: #### 5 7021-8 ####MICHAEL LABORATORYCLIA [id number] [place] [address] [facility] WBC (Bld) [#/Vol] 8.17 10*3/uL Normal 3.70-11.00 [facility] Comment on above: Order Comment: Speci men Type: BLOOD SPECIMENOrdering Facility: [facility] Address: [address] [place] [address] Performed By: #### 5 7021-8 ####MICHAEL LABORATORYCLIA [id number] [place] [id number] [facility] Comprehensive metabolic 2000 panelon 11-09-2022 Albumin [Mass/Vol] 3.5 g/dL Low 3.9 - 4.9 g/dL [facility] ALP [Catalytic activity/Vol] 31 U/L Low 34 - 123 U/L [facility] ALT [Catalytic activity/Vol] 11 U/L 7 - 38 U/L [facility] Anion gap [Moles/Vol] 9 mmol/L 9 - 18 mmol/L [facility] AST [Catalytic activity/Vol] 10 U/L Low 13 - 35 U/L [facility] Bilirubin [Mass/Vol] 0.7 mg/dL 0.2 - 1 .3 mg/dL [facility] Calcium [Mass/Vol] 9.1 mg/dL 8.5 - 10. 2 mg/dL [facility] Chloride [Moles/Vol] 101 mmol/L 97 - 10 5 mmol/L [facility] CO2 [Moles/Vol] 27 mmol/L 22 - 30 mmol/L [facility] Creatinine [Mass/Vol] 0.75 mg/dL 0.58 - 0.96 mg/dL [facility] Estimated Glomerular Filtration Rate 81 mL/min/1.73m >=60 mL/min/1.7 3m [facility] Glucose [Mass/Vol] 94 mg/dL 74 - 99 mg/dL [facility] Potassium [Moles/Vol] 4.2 mmol/L 3.7 - 5.1 mmol/L [facility] Protein [Mass/Vol] 5.2 g/dL Low 6.3 - 8.0 g/dL [facility] Sodium [Moles/Vol] 137 mmol/L 136 - 144 mmol/L [facility] Urea nitrogen [Mass/Vol] 26 mg/dL High 7 - 21 mg/dL [facility] Albumin [Mass/Vol] 3.5 g/dL Low 3.9-4.9 [facility] Comment on above: Order Comment: Speci men Type: BLOOD SPECIMENOrdering Facility: [facility] Address: [address] [place] [address] Performed By: #### 2 4323-8 ####MICHAEL LABORATORYCLIA [id number] [place] [address] [place] ALP [Catalytic activity/Vol] 31 U/L Low 34-123 [facility] Comment on above: Order Comment: Speci men Type: BLOOD SPECIMENOrdering Facility: [facility] Address: [address] [place] [address] Performed By: #### 2 4323-8 ####MICHAEL LABORATORYCLIA [id number] [place] [id number] [place] ALT [Catalytic activity/Vol] 11 U/L Normal 7-38 [facility] Comment on above: Order Comment: Speci men Type: BLOOD SPECIMENOrdering Facility: [facility] Address: [address] [place] [address] Performed By: #### 2 4323-8 ####MICHAEL LABORATORYCLIA [id number] [place] [address] [place] Anion gap [Moles/Vol] 9 mmol/L Normal 9-18 [facility] Comment on above: Order Comment: Speci men Type: BLOOD SPECIMENOrdering Facility: [facility] Address: [address] [place] [address] Performed By: #### 2 4323-8 ####MICHAEL LABORATORYCLIA [id number] [place] [address] [place] AST [Catalytic activity/Vol] 10 U/L Low 13-35 [facility] Comment on above: Order Comment: Speci men Type: BLOOD SPECIMENOrdering Facility: [facility] Address: [address] [place] [address] Performed By: #### 2 4323-8 ####MICHAEL LABORATORYCLIA [id number] [place] [address] [place] Bilirubin [Mass/Vol] 0.7 mg/dL Normal 0.2-1.3 [facility] Comment on above: Order Comment: Speci men Type: BLOOD SPECIMENOrdering Facility: [facility] Address: [address] [place] [address] Performed By: #### 2 4323-8 ####MICHAEL LABORATORYCLIA [id number] [place] [address] [place] Calcium [Mass/Vol] 9.1 mg/dL Normal 8.5-10.2 [facility] Comment on above: Order Comment: Speci men Type: BLOOD SPECIMENOrdering Facility: [facility] Address: [address] [place] [address] Performed By: #### 2 4323-8 ####MICHAEL LABORATORYCLIA [id number] [place] [id number] [place] Chloride [Moles/Vol] 101 mmol/L Normal 97-105 [facility] Comment on above: Order Comment: Speci men Type: BLOOD SPECIMENOrdering Facility: [facility] Address: [address] [place] [address] Performed By: #### 2 4323-8 ####MICHAEL LABORATORYCLIA [id number] [place] [id number] [place] CO2 [Moles/Vol] 27 mmol/L Normal 22-30 [facility] Comment on above: Order Comment: Speci men Type: BLOOD SPECIMENOrdering Facility: [facility] Address: [address] [place] [address] Performed By: #### 2 4323-8 ####MICHAEL LABORATORYCLIA [id number] [place] [id number] [place] Creatinine [Mass/Vol] 0.75 mg/dL Normal 0.58-0.96 [facility] Comment on above: Order Comment: Speci men Type: BLOOD SPECIMENOrdering Facility: [facility] Address: [address] [place] [address] Performed By: #### 2 4323-8 ####MICHAEL LABORATORYCLIA [id number] [place] [id number] [place] ESTIMATED GLOMERULAR FILTRATION RATE 81 mL/min/1.73m??? Normal >=60 [facility] Comment on above: Order Comment: Speci men Type: BLOOD SPECIMENOrdering Facility: [facility] Address: [address] [place] [address] Result Comment: Kim mated Glomerular Filtration Rate [...] Performed By: #### 2 4323-8 ####MICHAEL LABORATORYCLIA [id number] [place] [id number] [place] Glucose [Mass/Vol] 94 mg/dL Normal 74-99 [facility] Comment on above: Order Comment: Speci men Type: BLOOD SPECIMENOrdering Facility: [facility] Address: [address] [place] [address] Result Comment: The [place] [employer] (ADA) provides guidance for cutoff [...] Standards of Medical Care in Diabetes 2016, [place] [employer]. Diabetes Care. 2016.39(Suppl 1). Performed By: #### 2 4323-8 ####MICHAEL LABORATORYCLIA [id number] [place] [address] [place] Potassium [Moles/Vol] 4.2 mmol/L Normal 3.7-5.1 [facility] Comment on above: Order Comment: Speci men Type: BLOOD SPECIMENOrdering Facility: [facility] Address: [address] [place] [address] Performed By: #### 2 4323-8 ####MICHAEL LABORATORYCLIA [id number] [place] [address] [place] Protein [Mass/Vol] 5.2 g/dL Low 6.3-8.0 [facility] Comment on above: Order Comment: Speci men Type: BLOOD SPECIMENOrdering Facility: [facility] Address: [address] [place] [address] Performed By: #### 2 4323-8 ####MICHAEL LABORATORYCLIA [id number] [place] [id number] [place] Sodium [Moles/Vol] 137 mmol/L Normal 136-144 [facility] Comment on above: Order Comment: Speci men Type: BLOOD SPECIMENOrdering Facility: [facility] Address: [address] [place] [address] Performed By: #### 2 4323-8 ####MICAHEL LABORATORYCLIA [id number] [place] [id number] [place] Urea nitrogen [Mass/Vol] 26 mg/dL High 7-21 [facility] Comment on above: Order Comment: Speci men Type: BLOOD SPECIMENOrdering Facility: [facility] Address: [address] [place] [address] Performed By: #### 2 4323-8 ####MICHAEL LABORATORYCLIA [id number] [place] [address] [place] MAGNESIUM BLDon 11-09-2022 Magnesium [Mass/Vol] 2.1 mg/dL 1.7 - 2 .3 mg/dL [facility] Magnesium SerPl-mCncon 11-09 Magnesium [Mass/Vol] 2.1 mg/dL Normal 1.7-2.3 [facility] Comment on above: Order Comment: Speci men Type: BLOOD SPECIMENOrdering Facility: [facility] Address: [id number] [place] [address] Performed By: #### 1 9123-9 ####[facility] LABORATORYCLIA [id number] [place] [id number] [place] CNPNon 11-08-2022 CNPN Normal [facility] CASE MANAGEMon 11-07-2022 CASE MANAGEM Normal [facility] CASE MANAGEM Normal [facility] CBC W Auto Differential pane l (Bld)on 11-07-2022 Basophils (Bld) [#/Vol] 10*3/uL Normal <0.11 [facility] Comment on above: Order Comment: Speci men Type: BLOOD SPECIMENOrdering Facility: [facility] Address: [address] [place] [address] Performed By: #### 5 7021-8 ####[facility] LABCLIA [id number] [place] [address] [place] Basophils/100 WBC (Bld) 0.1 % Normal [facility] Comment on above: Order Comment: Speci men Type: BLOOD SPECIMENOrdering Facility: [facility] Address: [address] [place] [address] Performed By: #### 5 7021-8 ####[facility] LABCLIA [id number] [place] [address] [place] Differential cell count method Nom (Bld) Auto Normal [facility] Comment on above: Order Comment: Speci men Type: BLOOD SPECIMENOrdering Facility: [facility] Address: [address] Performed By: #### 5 7021-8 ####[facility] LABCLIA [id number] [place] [address] [facility] [place] Eosinophils (Bld) [#/Vol] 0.06 10*3/uL Normal <0.46 [facility] Comment on above: Order Comment: Speci men Type: BLOOD SPECIMENOrdering Facility: [facility] Address: [address] Performed By: #### 5 7021-8 ####[facility] LABCLIA [id number] [place] [address] [place] Eosinophils/100 WBC (Bld) 0.4 % Normal [facility] Comment on above: Order Comment: Speci men Type: BLOOD SPECIMENOrdering Facility: [facility] Address: [address] [place], [place] [address] Performed By: #### 5 7021-8 ####[facility] LABCLIA [id number] [place] [address] [place] Erythrocyte distribution width (RBC) [Ratio] 13.3 % Normal 11.5-15.0 [facility] Comment on above: Order Comment: Speci men Type: BLOOD SPECIMENOrdering Facility: [facility] Address: [address] [place], [place] [address] Performed By: #### 5 7021-8 ####[facility] LABCLIA [id number] [address] [place] Hematocrit (Bld) [Volume fraction] 45.7 % Normal 36.0-46.0 [facility] Comment on above: Order Comment: Speci men Type: BLOOD SPECIMENOrdering Facility: [facility] Address: [address] Performed By: #### 5 7021-8 ####[facility] LABCLIA [id number] [place] [address] [place] Hemoglobin (Bld) [Mass/Vol] 15.1 g/dL Normal 11.5-15.5 [facility] Comment on above: Order Comment: Speci men Type: BLOOD SPECIMENOrdering Facility: [facility] Address: [address] [place] [address] Performed By: #### 5 7021-8 ####[facility] LABCLIA [id number] [place] [address] [place] Immature granulocytes (Bld) [#/Vol] 0.15 10*3/uL High <0.10 [facility] Comment on above: Order Comment: Speci men Type: BLOOD SPECIMENOrdering Facility: [facility] Address: [address] [place] [address] Performed By: #### 5 7021-8 ####[facility] LABCLIA [id number] [place] [address] [place] Immature granulocytes/100 WBC (Bld) 1.1 % Normal [facility] Comment on above: Order Comment: Speci men Type: BLOOD SPECIMENOrdering Facility: [facility] Address: [address] [place] [address] Performed By: #### 5 7021-8 ####[facility] LABCLIA [id number] [place] [address] [place] Lymphocytes (Bld) [#/Vol] 0.43 10*3/uL Low 1.00-4.00 [facility] Comment on above: Order Comment: Speci men Type: BLOOD SPECIMENOrdering Facility: [facility] Address: [address] [place] [address] Performed By: #### 5 7021-8 ####[facility] LABCLIA [id number] [place] [address] [place] Lymphocytes/100 WBC (Bld) 3.1 % Normal [facility] Comment on above: Order Comment: Speci men Type: BLOOD SPECIMENOrdering Facility: [facility] Address: [address] [place] [address] Performed By: #### 5 7021-8 ####[facility] LABIA [id number] [address] STATES OF [facility] MCH (RBC) [Entitic mass] 30.5 pg Normal 26.0-34.0 [facility] Comment on above: Order Comment: Speci men Type: BLOOD SPECIMENOrdering Facility: [facility] Address: [address] [place] [place] [address] Performed By: #### 5 7021-8 ####[facility] [id number] [address] [place] MCHC (RBC) [Mass/Vol] 33.0 g/dL Normal 30.5-36.0 [facility] Comment on above: Order Comment: Speci men Type: BLOOD SPECIMENOrdering Facility: [facility] Address: [address] Performed By: #### 5 7021-8 ####[facility] LABIA [id number] [address] [place] MCV (RBC) [Entitic vol] 92.3 fL Normal 80.0-100.0 [facility] Comment on above: Order Comment: Speci men Type: BLOOD SPECIMENOrdering Facility: [facility] Address: [address] Performed By: #### 5 7021-8 ####[facility] LABMA[facility] [id number] [place] [address] [place] Monocytes (Bld) [#/Vol] 0.69 10*3/uL Normal <0.87 [facility] Comment on above: Order Comment: Speci men Type: BLOOD SPECIMENOrdering Facility: [facility] Address: [address] [place], [place] [address] Performed By: #### 5 7021-8 ####[facility] LABCLIA [id number] [place] [address] [place] Monocytes/100 WBC (Bld) 5.0 % Normal [facility] Comment on above: Order Comment: Speci men Type: BLOOD SPECIMENOrdering Facility: [facility] Address: [address] [place], [place] [address] Performed By: #### 5 7021-8 ####[facility] LABCLIA [id number] [place] [address] [place] Neutrophils (Bld) [#/Vol] 12.51 10*3/uL High 1.45-7.50 [facility] Comment on above: Order Comment: Speci men Type: BLOOD SPECIMENOrdering Facility: [facility] Address: [address] [place], [place] [address] Performed By: #### 5 7021-8 ####[facility] LABCLIA [id number] [place] [address] [place] Neutrophils/100 WBC (Bld) 90.3 % Normal [facility] Comment on above: Order Comment: Speci men Type: BLOOD SPECIMENOrdering Facility: [facility] Address: [address] [place], [place] [address] Performed By: #### 5 7021-8 ####[facility] LABCLIA [id number] [place] [address] [place] Nucleated RBC (Bld) [#/Vol] 10*3/uL Normal <0.01 [facility] Comment on above: Order Comment: Speci men Type: BLOOD SPECIMENOrdering Facility: [facility] Address: [address] [place], [place] [address] Performed By: #### 5 7021-8 ####[facility] LABCLIA [id number] [place] [address] [place] Nucleated RBC/100 WBC (Bld) [Ratio] 0.0 /100 WBC Normal [facility] Comment on above: Order Comment: Speci men Type: BLOOD SPECIMENOrdering Facility: [facility] Address: [address] [place], [place] [address] Performed By: #### 5 7021-8 ####[facility] LABCLIA [id number] [place] [address] [place] Platelet mean volume (Bld) [Entitic vol] 10.9 fL Normal 9.0-12.7 [facility] Comment on above: Order Comment: Speci men Type: BLOOD SPECIMENOrdering Facility: [facility] Address: [address] [place], [place] [address] Performed By: #### 5 7021-8 ####[facility] LABCLIA [id number] [place] [address] [place] Platelets (Bld) [#/Vol] 182 10*3/uL Normal 150-400 [facility] Comment on above: Order Comment: Speci men Type: BLOOD SPECIMENOrdering Facility: [facility] Address: [address] [place], [place] [address] Performed By: #### 5 7021-8 ####[facility] LABIA [id number] [place] [address] [place] RBC (Bld) [#/Vol] 4.95 10*6/uL Normal 3.90-5.20 [facility] Comment on above: Order Comment: Speci men Type: BLOOD SPECIMENOrdering Facility: [facility] Address: [address] [place], [place] [address] Performed By: #### 5 7021-8 ####[facility] LABCLIA [id number] [place] [address] [place] WBC (Bld) [#/Vol] 13.86 10*3/uL High 3.70-11.00 [facility] Comment on above: Order Comment: Speci men Type: BLOOD SPECIMENOrdering Facility: [facility] Address: [address] [place] [address] Performed By: #### 5 7021-8 ####[facility] LABCLIA [id number] [place] [address] [place] Basophils (Bld) [#/Vol] 10*3/uL Normal <0.11 [facility] Comment on above: Order Comment: Speci men Type: BLOOD SPECIMENOrdering Facility: [facility] Address: [address] [place] [address] Performed By: #### 5 7021-8 ####[facility] LABCLIA [id number] [place] [address] [place] Basophils/100 WBC (Bld) 0.1 % Normal [facility] Comment on above: Order Comment: Speci men Type: BLOOD SPECIMENOrdering Facility: [facility] Address: [address] [place] [address] Performed By: #### 5 7021-8 ####[facility] LABCLIA [id number] [place] [address] [place] Differential cell count method Nom (Bld) Auto Normal [facility] Comment on above: Order Comment: Speci men Type: BLOOD SPECIMENOrdering Facility: [facility] Address: [address] Performed By: #### 5 7021-8 ####[facility] LABCLIA [id number] [place] [address] [place] Eosinophils (Bld) [#/Vol] 0.19 10*3/uL Normal <0.46 [facility] Comment on above: Order Comment: Speci men Type: BLOOD SPECIMENOrdering Facility: [facility] Address: [address] [place], [place] [address] Performed By: #### 5 7021-8 ####[facility] LABCLIA [id number] [place] [address] [place] Eosinophils/100 WBC (Bld) 1.9 % Normal [facility] Comment on above: Order Comment: Speci men Type: BLOOD SPECIMENOrdering Facility: [facility] Address: [address] [place] [address] Performed By: #### 5 7021-8 ####[facility] LABIA [id number] [place] [address] [place] Erythrocyte distribution width (RBC) [Ratio] 13.3 % Normal 11.5-15.0 [facility] Comment on above: Order Comment: Speci men Type: BLOOD SPECIMENOrdering Facility: [facility] Address: [address] [place] [address] Performed By: #### 5 7021-8 ####[facility] LABIA [id number] [place] [address] [place] Hematocrit (Bld) [Volume fraction] 45.8 % Normal 36.0-46.0 [facility] Comment on above: Order Comment: Speci men Type: BLOOD SPECIMENOrdering Facility: [facility] Address: [address] [place], [place] [address] Performed By: #### 5 7021-8 ####[facility] LABIA [id number] [place] [address] [place] Hemoglobin (Bld) [Mass/Vol] 15.2 g/dL Normal 11.5-15.5 [facility] Comment on above: Order Comment: Speci men Type: BLOOD SPECIMENOrdering Facility: [facility] Address: [address] [place], [place] [address] Performed By: #### 5 7021-8 ####[facility] LABCLIA [id number] [place] [address] [place] Immature granulocytes (Bld) [#/Vol] 0.13 10*3/uL High <0.10 [facility] Comment on above: Order Comment: Speci men Type: BLOOD SPECIMENOrdering Facility: [facility] Address: [address] [place] [address] Performed By: #### 5 7021-8 ####[facility] LABCLIA [id number] [address] STATES [facility] Immature granulocytes/100 WBC (Bld) 1.3 % Normal [facility] Comment on above: Order Comment: Speci men Type: BLOOD SPECIMENOrdering Facility: [facility] Address: [address] Performed By: #### 5 7021-8 ####[facility] LABCLIA [id number] [place] [address] [place] Lymphocytes (Bld) [#/Vol] 0.53 10*3/uL Low 1.00-4.00 [facility] Comment on above: Order Comment: Speci men Type: BLOOD SPECIMENOrdering Facility: [facility] Address: [address] Performed By: #### 5 7021-8 ####[facility] LABCLIA [id number] [address] STATES [facility] Lymphocytes/100 WBC (Bld) 5.3 % Normal [facility] Comment on above: Order Comment: Speci men Type: BLOOD SPECIMENOrdering Facility: [facility] Address: [address] Performed By: #### 5 7021-8 ####[facility] LABCLIA [id number] [place] [address] [place] MCH (RBC) [Entitic mass] 30.3 pg Normal 26.0-34.0 [facility] Comment on above: Order Comment: Speci men Type: BLOOD SPECIMENOrdering Facility: [facility] Address: [address] Performed By: #### 5 7021-8 ####[facility] LABCLIA [id number] [place] [address] [place] MCHC (RBC) [Mass/Vol] 33.2 g/dL Normal 30.5-36.0 [facility] Comment on above: Order Comment: Speci men Type: BLOOD SPECIMENOrdering Facility: [facility] Address: [address] [place] [address] Performed By: #### 5 7021-8 ####[facility] LABIA [id number] [place] [address] [place] MCV (RBC) [Entitic vol] 91.4 fL Normal 80.0-100.0 [facility] Comment on above: Order Comment: Speci men Type: BLOOD SPECIMENOrdering Facility: [facility] Address: [address] [place] [address] Performed By: #### 5 7021-8 ####[facility] LABIA [id number] [address] [place] Monocytes (Bld) [#/Vol] 0.65 10*3/uL Normal <0.87 [facility] Comment on above: Order Comment: Speci men Type: BLOOD SPECIMENOrdering Facility: [facility] Address: [address] [place] [address] Performed By: #### 5 7021-8 ####[facility] LABIA [id number] [address] [place] Monocytes/100 WBC (Bld) 6.4 % Normal [facility] Comment on above: Order Comment: Speci men Type: BLOOD SPECIMENOrdering Facility: [facility] Address: [address] [place], [place] [address] Performed By: #### 5 7021-8 ####[facility] LABIA [id number] [place] [address] [place] Neutrophils (Bld) [#/Vol] 8.58 10*3/uL High 1.45-7.50 [facility] Comment on above: Order Comment: Speci men Type: BLOOD SPECIMENOrdering Facility: [facility] Address: [address] Performed By: #### 5 7021-8 ####[facility] LABCLIA [id number] [place] [address] [place] Neutrophils/100 WBC (Bld) 85.0 % Normal [facility] Comment on above: Order Comment: Speci men Type: BLOOD SPECIMENOrdering Facility: [facility] Address: [address] [place], [place] [address] Performed By: #### 5 7021-8 ####[facility] LABIA [id number] [place] [address] [place] Nucleated RBC (Bld) [#/Vol] 10*3/uL Normal <0.01 [facility] Comment on above: Order Comment: Speci men Type: BLOOD SPECIMENOrdering Facility: [facility] Address: [address] [place], [place] [address] Performed By: #### 5 7021-8 ####[facility] LABIA [id number] [place] [address] [place] Nucleated RBC/100 WBC (Bld) [Ratio] 0.0 /100 WBC Normal [facility] Comment on above: Order Comment: Speci men Type: BLOOD SPECIMENOrdering Facility: [facility] Address: [address] Performed By: #### 5 7021-8 ####[facility] LABIA [id number] [place] [address] [place] Platelet mean volume (Bld) [Entitic vol] 10.8 fL Normal 9.0-12.7 [facility] Comment on above: Order Comment: Speci men Type: BLOOD SPECIMENOrdering Facility: [facility] Address: [address] [place] [address] Performed By: #### 5 7021-8 ####[facility] LABIA [id number] [place] [address] [place] Platelets (Bld) [#/Vol] 172 10*3/uL Normal 150-400 [facility] Comment on above: Order Comment: Speci men Type: BLOOD SPECIMENOrdering Facility: [facility] Address: [address] Performed By: #### 5 7021-8 ####[facility] LABIA [id number] [place] [address] [place] RBC (Bld) [#/Vol] 5.01 10*6/uL Normal 3.90-5.20 [facility] Comment on above: Order Comment: Speci men Type: BLOOD SPECIMENOrdering Facility: [facility] Address: [address] Performed By: #### 5 7021-8 ####[facility] [id number] [place] [address] [place] WBC (Bld) [#/Vol] 10.09 10*3/uL Normal 3.70-11.00 [facility] Comment on above: Order Comment: Speci men Type: BLOOD SPECIMENOrdering Facility: [facility] Address: [address] [place] [address] Performed By: #### 5 7021-8 ####[facility] [id number] [place] [id number] [place] CNDSon 11-07-2022 CNDS Normal [facility] CONSULTon 11-07-2022 CONSULT Normal [facility] Comprehensive metabolic 2000 panelon 11-07-2022 Albumin [Mass/Vol] 3.7 g/dL Low 3.9-4.9 [facility] Comment on above: Order Comment: Speci men Type: BLOOD SPECIMENOrdering Facility: [facility] Address: [address] Performed By: #### 2 4323-8 ####[facility] LABCLIA [id number] [place] [address] [place] ALP [Catalytic activity/Vol] 44 U/L Normal 34-123 [facility] Comment on above: Order Comment: Speci men Type: BLOOD SPECIMENOrdering Facility: [facility] Address: [address] Performed By: #### 2 4323-8 ####[facility] LABCLIA [id number] [address] [place] ALT [Catalytic activity/Vol] 15 U/L Normal 7-38 [facility] Comment on above: Order Comment: Speci men Type: BLOOD SPECIMENOrdering Facility: [facility] Address: [address] [place], [place] [address] Performed By: #### 2 4323-8 ####[facility] LABCLIA [id number] [place] [address] [place] Anion gap [Moles/Vol] 9 mmol/L Normal 9-18 [facility] Comment on above: Order Comment: Speci men Type: BLOOD SPECIMENOrdering Facility: [facility] Address: [address] [place], [place] [address] Performed By: #### 2 4323-8 ####[facility] LABCLIA [id number] [place] [address] [place] AST [Catalytic activity/Vol] 9 U/L Low 13-35 [facility] Comment on above: Order Comment: Speci men Type: BLOOD SPECIMENOrdering Facility: [facility] Address: [address] [place], [place] [address] Performed By: #### 2 4323-8 ####[facility] LABCLIA [id number] [place] [address] [place] Bilirubin [Mass/Vol] 0.7 mg/dL Normal 0.2-1.3 [facility] Comment on above: Order Comment: Speci men Type: BLOOD SPECIMENOrdering Facility: [facility] Address: [address] [place], [place] [address] Performed By: #### 2 4323-8 ####[facility] LABCLIA [id number] [place] [address] [place] Calcium [Mass/Vol] 9.9 mg/dL Normal 8.5-10.2 [facility] Comment on above: Order Comment: Speci men Type: BLOOD SPECIMENOrdering Facility: [facility] Address: [address] [place], [place] [address] Performed By: #### 2 4323-8 ####[facility] LABCLIA [id number] [place] [address] [place] Chloride [Moles/Vol] 99 mmol/L Normal 97-105 [facility] Comment on above: Order Comment: Speci men Type: BLOOD SPECIMENOrdering Facility: [facility] Address: [address] [place], [place] [address] Performed By: #### 2 4323-8 ####[facility] LABCLIA [id number] [place] [address] [place] CO2 [Moles/Vol] 28 mmol/L Normal 22-30 [facility] Comment on above: Order Comment: Speci men Type: BLOOD SPECIMENOrdering Facility: [facility] Address: [address] [place], [place] [address] Performed By: #### 2 4323-8 ####[facility] LABCLIA [id number] [place] [address] [place] Creatinine [Mass/Vol] 0.71 mg/dL Normal 0.58-0.96 [facility] Comment on above: Order Comment: Speci men Type: BLOOD SPECIMENOrdering Facility: [facility] Address: [address] [place] [place] [address] Performed By: #### 2 4323-8 ####[facility] LABCLIA [id number] [place] [address] [place] [facility] ESTIMATED GLOMERULAR FILTRATION RATE 87 mL/min/1.73m??? Normal >=60 [facility] Comment on above: Order Comment: Kurt barraza Type: BLOOD SPECIMENOrdering Facility: [facility] Address: [address] [place] [place] [address] Result Comment: Kim mated Glomerular Filtration Rate [...] actual GFR. Performed By: #### 2 4323-8 ####[facility] LABIA [id number] [place] [address] [place] Glucose [Mass/Vol] 109 mg/dL High 74-99 [facility] Comment on above: Order Comment: Kurt barraza Type: BLOOD SPECIMENOrdering Facility: [facility] Address: [address] [place] [address] Result Comment: The [place] [employer] (ADA) provides guidance for cutoff [...] Standards of Medical Care in Diabetes 2016, [place] [employer]. Diabetes Care. 2016.39(Suppl 1). Performed By: #### 2 4323-8 ####[facility] LABCLIA [id number] [place] [address] [place] Potassium [Moles/Vol] 3.8 mmol/L Normal 3.7-5.1 [facility] Comment on above: Order Comment: Speci men Type: BLOOD SPECIMENOrdering Facility: [facility] Address: [address] [place] [address] Performed By: #### 2 4323-8 ####[facility] LABCLIA [id number] [place] [address] [place] Protein [Mass/Vol] 5.8 g/dL Low 6.3-8.0 [facility] Comment on above: Order Comment: Speci men Type: BLOOD SPECIMENOrdering Facility: [facility] Address: [address] [place] [address] Performed By: #### 2 4323-8 ####[facility] LABCLIA [id number] [place] [address] [place] Sodium [Moles/Vol] 136 mmol/L Normal 136-144 [facility] Comment on above: Order Comment: Speci men Type: BLOOD SPECIMENOrdering Facility: [facility] Address: [address] [place] [address] Performed By: #### 2 4323-8 ####[facility] LABCLIA [id number] [place] [address] [place] Urea nitrogen [Mass/Vol] 30 mg/dL High 7-21 [facility] Comment on above: Order Comment: Speci men Type: BLOOD SPECIMENOrdering Facility: [facility] Address: [address] [place] [address] Performed By: #### 2 4323-8 ####[facility] LABCLIA [id number] [place] [address] [place] Albumin [Mass/Vol] 3.9 g/dL Normal 3.9-4.9 [facility] Comment on above: Order Comment: Speci men Type: BLOOD SPECIMENOrdering Facility: [facility] Address: [address] Performed By: #### 2 4323-8 ####[facility] LABCLIA [id number] [place] [address] [place] ALP [Catalytic activity/Vol] 46 U/L Normal 34-123 [facility] Comment on above: Order Comment: Speci men Type: BLOOD SPECIMENOrdering Facility: [facility] Address: [address] Performed By: #### 2 4323-8 ####[facility] LABCLIA [id number] [place] [address] [place] ALT [Catalytic activity/Vol] 14 U/L Normal 7-38 [facility] Comment on above: Order Comment: Speci men Type: BLOOD SPECIMENOrdering Facility: [facility] Address: [address] Performed By: #### 2 4323-8 ####[facility] LABCLIA [id number] [place] [address] [place] Anion gap [Moles/Vol] 13 mmol/L Normal 9-18 [facility] Comment on above: Order Comment: Speci men Type: BLOOD SPECIMENOrdering Facility: [facility] Address: [address] Performed By: #### 2 4323-8 ####[facility] [facility] LABCLIA [id number] [place] [address] [place] AST [Catalytic activity/Vol] 11 U/L Low 13-35 [facility] Comment on above: Order Comment: Speci men Type: BLOOD SPECIMENOrdering Facility: [facility] Address: [address] Performed By: #### 2 4323-8 ####[facility] LABCLIA [id number] [place] [address] [place] Bilirubin [Mass/Vol] 0.7 mg/dL Normal 0.2-1.3 [facility] Comment on above: Order Comment: Speci men Type: BLOOD SPECIMENOrdering Facility: [facility] Address: [address] [place] [address] Performed By: #### 2 4323-8 ####[facility] LABCLIA [id number] [place] [address] [place] Calcium [Mass/Vol] 10.0 mg/dL Normal 8.5-10.2 [facility] Comment on above: Order Comment: Speci men Type: BLOOD SPECIMENOrdering Facility: [facility] Address: [address] [place] [address] Performed By: #### 2 4323-8 ####[facility] LABCLIA [id number] [place] [address] [place] Chloride [Moles/Vol] 99 mmol/L Normal 97-105 [facility] Comment on above: Order Comment: Speci men Type: BLOOD SPECIMENOrdering Facility: [facility] Address: [address] [place] [address] Performed By: #### 2 4323-8 ####[facility] LABCLIA [id number] [place] [address] [place] CO2 [Moles/Vol] 26 mmol/L Normal 22-30 [facility] Comment on above: Order Comment: Speci men Type: BLOOD SPECIMENOrdering Facility: [facility] Address: [address] [place], [place] [address] Performed By: #### 2 4323-8 ####[facility] LABCLIA [id number] [place] [address] [place] Creatinine [Mass/Vol] 0.66 mg/dL Normal 0.58-0.96 [facility] Comment on above: Order Comment: Speci men Type: BLOOD SPECIMENOrdering Facility: [facility] Address: [address] [address] Performed By: #### 2 4323-8 ####[facility] LABIA [id number] [address] [place] ESTIMATED GLOMERULAR FILTRATION RATE 89 mL/min/1.73m??? Normal >=60 [facility] Comment on above: Order Comment: Kurt barraza Type: BLOOD SPECIMENOrdering Facility: [facility] Address: [address] [place] [address] Result Comment: Kim mated Glomerular Filtration Rate [...] actual GFR. Performed By: #### 2 4323-8 ####[facility] LABIA [id number] [place] [address] [place] Glucose [Mass/Vol] 79 mg/dL Normal 74-99 [facility] Comment on above: Order Comment: Kurt barraza Type: BLOOD SPECIMENOrdering Facility: [facility] Address: [address] [place] [address] Result Comment: The [place] Diabetes [employer] (ADA) provides guidance for cutoff [...] Standards of Medical Care in Diabetes 2016, [place] [employer]. Diabetes Care. 2016.39(Suppl 1). Performed By: #### 2 4323-8 ####[facility] LABCLIA [id number] [place] [address] [place] Potassium [Moles/Vol] 4.0 mmol/L Normal 3.7-5.1 [facility] Comment on above: Order Comment: Speci men Type: BLOOD SPECIMENOrdering Facility: [facility] Address: [address] [address] Performed By: #### 2 4323-8 ####[facility] LABIA [id number] [place] [address] [place] Protein [Mass/Vol] 6.0 g/dL Low 6.3-8.0 [facility] Comment on above: Order Comment: Speci men Type: BLOOD SPECIMENOrdering Facility: [facility] Address: [address] [place] [address] Performed By: #### 2 4323-8 ####[facility] LABIA [id number] [place] [address] [place] Sodium [Moles/Vol] 138 mmol/L Normal 136-144 [facility] Comment on above: Order Comment: Speci men Type: BLOOD SPECIMENOrdering Facility: [facility] Address: [address] [place] [address] Performed By: #### 2 4323-8 ####[facility] LABIA [id number] [place] [address] [place] Urea nitrogen [Mass/Vol] 28 mg/dL High 7-21 [facility] Comment on above: Order Comment: Speci men Type: BLOOD SPECIMENOrdering Facility: [facility] Address: [address] [place], [place] [address] Performed By: #### 2 4323-8 ####[facility] LABIA [id number] [place] [address] [place] PT panel Coag (PPP)on 2022 INR Coag (PPP) [Relative time] 1.0 {INR} Normal 0.9-1.3 [facility] Comment on above: Order Comment: Kurt barraza Type: BLOOD SPECIMENOrdering Facility: [facility] Address: [address] [place] [address] Result Comment: Milana min K Antagonist (VKA) Therapeutic Range: INR 2 to 3 (Target INR of 2.5)Note: For patients treated with VKA drugs, such as warfarin, the [place] [employer] 2012 Guideline recommends [...] al. Chest 2012, 141:7S-47SNishamber RA, et al. [facility] 2017, 70: 252-289 Performed By: #### 3 4528-0, 43926-4 ####[facility] LABIA [id number] [place] [address] [place] PT Coag (PPP) [Time] 10.1 s Normal 9.7-13.0 [facility] Comment on above: Order Comment: Kurt barraza Type: BLOOD SPECIMENOrdering Facility: [facility] Address: [address] [id number] Performed By: #### 3 4528-0, 08155-1 ####[facility] LABIA [id number] [place] [address] [place] TYPE + SCREENon 11-07-2022 ABO A Normal [facility] Comment on above: Order Comment: Kurt barraza Type: BLOOD SPECIMENOrdering Facility: [facility] Address: [address] [place] [phone] Performed By: #### T SCR ####[facility] BLOOD BANKCLIA [id number] [address] HISTORICAL AB SCR STATUS Negative Normal [facility] Comment on above: Order Comment: Speci men Type: BLOOD SPECIMENOrdering Facility: [facility] Address: [address] [place] [address] Performed By: #### T SCR ####[facility] BLOOD BANKCLIA [id number] [address] [place] Rh Nom (Bld) Positive Normal [facility] Comment on above: Order Comment: Speci men Type: BLOOD SPECIMENOrdering Facility: [facility] Address: [address] [place] [address] Performed By: #### T SCR ####CC MAIN BLOOD BANKCLIA [id number] [address] OF [facility] TYPE AND SCREEN EXPIRATION 11/10/2022 23:59 Normal [facility] Comment on above: Order Comment: Speci men Type: BLOOD SPECIMENOrdering Facility: [facility] Address: [address] [place] [address] Performed By: #### T SCR ####[facility] BLOOD BANKCLIA [id number] [place] [address] [place] aPTT PPPon 11-07-2022 aPTT Coag (PPP) [Time] 23.1 s Normal 23.0-32.4 [facility] Comment on above: Order Comment: Speci men Type: BLOOD SPECIMENOrdering Facility: [facility] Address: [address] [place] [address] Performed By: #### 3 4528-0, 38309-7 ####[facility] LABCLIA [id number] [address] [place] CASE MGT INIT ASSESon 04-17- 2023 CASE MGT INIT ASSES Normal [facility] CBC W Auto Differential pane l (Bld)on 11-06-2022 Basophils (Bld) [#/Vol] 10*3/uL Normal <0.11 [facility] Comment on above: Order Comment: Speci men Type: BLOOD SPECIMENOrdering Facility: [facility] Address: [address] [place] [address] Performed By: #### 5 7021-8 ####[facility] LABCLIA [id number] [place] [address] [place] Basophils/100 WBC (Bld) 0.1 % Normal [facility] Comment on above: Order Comment: Speci men Type: BLOOD SPECIMENOrdering Facility: [facility] Address: [address] [place] [address] Performed By: #### 5 7021-8 ####[facility] LABCLIA [id number] [place] [address] [place] Differential cell count method Nom (Bld) Auto Normal [facility] Comment on above: Order Comment: Speci men Type: BLOOD SPECIMENOrdering Facility: [facility] Address: [address] [place] [address] Performed By: #### 5 7021-8 ####[facility] LABCLIA [id number] [place] [address] [place] Eosinophils (Bld) [#/Vol] 10*3/uL Normal <0.46 [facility] Comment on above: Order Comment: Speci men Type: BLOOD SPECIMENOrdering Facility: [facility] Address: [address] [place], [place] [address] Performed By: #### 5 7021-8 ####[facility] LABCLIA [id number] [place] [address] [place] Eosinophils/100 WBC (Bld) 0.1 % Normal [facility] Comment on above: Order Comment: Speci men Type: BLOOD SPECIMENOrdering Facility: [facility] Address: [address] Performed By: #### 5 7021-8 ####[facility] LABIA [id number] [place] [address] [place] Erythrocyte distribution width (RBC) [Ratio] 13.2 % Normal 11.5-15.0 [facility] Comment on above: Order Comment: Speci men Type: BLOOD SPECIMENOrdering Facility: [facility] Address: [address] Performed By: #### 5 7021-8 ####[facility] LABIA [id number] [place] [address] [place] Hematocrit (Bld) [Volume fraction] 43.7 % Normal 36.0-46.0 [facility] Comment on above: Order Comment: Speci men Type: BLOOD SPECIMENOrdering Facility: [facility] Address: [address] [place], [place] [address] Performed By: #### 5 7021-8 ####[facility] LABIA [id number] [place] [address] [place] Hemoglobin (Bld) [Mass/Vol] 14.7 g/dL Normal 11.5-15.5 [facility] Comment on above: Order Comment: Speci men Type: BLOOD SPECIMENOrdering Facility: [facility] Address: [address] Performed By: #### 5 7021-8 ####[facility] LABIA [id number] [place] [address] [place] Immature granulocytes (Bld) [#/Vol] 0.12 10*3/uL High <0.10 [facility] Comment on above: Order Comment: Speci men Type: BLOOD SPECIMENOrdering Facility: [facility] Address: [address] [place], [place] [address] Performed By: #### 5 7021-8 ####[facility] LABCLIA [id number] [place] [address] [place] Immature granulocytes/100 WBC (Bld) 1.3 % Normal [facility] Comment on above: Order Comment: Speci men Type: BLOOD SPECIMENOrdering Facility: [facility] Address: [address] [place] [address] Performed By: #### 5 7021-8 ####[facility] LABCLIA [id number] [place] [address] [place] Lymphocytes (Bld) [#/Vol] 0.43 10*3/uL Low 1.00-4.00 [facility] Comment on above: Order Comment: Speci men Type: BLOOD SPECIMENOrdering Facility: [facility] Address: [address] [place] [address] Performed By: #### 5 7021-8 ####[facility] LABCLIA [id number] [place] [address] [place] Lymphocytes/100 WBC (Bld) 4.5 % Normal [facility] Comment on above: Order Comment: Speci men Type: BLOOD SPECIMENOrdering Facility: [facility] Address: [address] [place] [address] Performed By: #### 5 7021-8 ####[facility] LABCLIA [id number] [place] [address] [place] MCH (RBC) [Entitic mass] 30.0 pg Normal 26.0-34.0 [facility] Comment on above: Order Comment: Speci men Type: BLOOD SPECIMENOrdering Facility: [facility] Address: [address] [place], [place] [address] Performed By: #### 5 7021-8 ####[facility] LABCLIA [id number] [place] [address] [place] MCHC (RBC) [Mass/Vol] 33.6 g/dL Normal 30.5-36.0 [facility] Comment on above: Order Comment: Speci men Type: BLOOD SPECIMENOrdering Facility: [facility] Address: [address] [place], [place] [address] Performed By: #### 5 7021-8 ####[facility] LABCLIA [id number] [place] [address] [place] MCV (RBC) [Entitic vol] 89.2 fL Normal 80.0-100.0 [facility] Comment on above: Order Comment: Speci men Type: BLOOD SPECIMENOrdering Facility: [facility] Address: [address] [place], [place] [address] Performed By: #### 5 7021-8 ####[facility] LABIA [id number] [place] [address] [place] Monocytes (Bld) [#/Vol] 0.59 10*3/uL Normal <0.87 [facility] Comment on above: Order Comment: Speci men Type: BLOOD SPECIMENOrdering Facility: [facility] Address: [address] [place], [place] [address] Performed By: #### 5 7021-8 ####[facility] LABIA [id number] [address] [place] Monocytes/100 WBC (Bld) 6.2 % Normal [facility] Comment on above: Order Comment: Speci men Type: BLOOD SPECIMENOrdering Facility: [facility] Address: [address] [place], [place] [address] Performed By: #### 5 7021-8 ####[facility] LABIA [id number] [place] [address] [place] Neutrophils (Bld) [#/Vol] 8.34 10*3/uL High 1.45-7.50 [facility] Comment on above: Order Comment: Speci men Type: BLOOD SPECIMENOrdering Facility: [facility] Address: [address] [place], [place] [address] Performed By: #### 5 7021-8 ####[facility] LABCLIA [id number] [place] [address] [place] Neutrophils/100 WBC (Bld) 87.8 % Normal [facility] Comment on above: Order Comment: Speci men Type: BLOOD SPECIMENOrdering Facility: [facility] Address: [address] [place], [place] [address] Performed By: #### 5 7021-8 ####[facility] LABCLIA [id number] [place] [address] [place] Nucleated RBC (Bld) [#/Vol] 10*3/uL Normal <0.01 [facility] Comment on above: Order Comment: Speci men Type: BLOOD SPECIMENOrdering Facility: [facility] Address: [address] [place], [place] [address] Performed By: #### 5 7021-8 ####[facility] LABIA [id number] [place] [address] [place] Nucleated RBC/100 WBC (Bld) [Ratio] 0.0 /100 WBC Normal [facility] Comment on above: Order Comment: Speci men Type: BLOOD SPECIMENOrdering Facility: [facility] Address: [address] [place], [place] [address] Performed By: #### 5 7021-8 ####[facility] LABCLIA [id number] [place] [address] [place] Platelet mean volume (Bld) [Entitic vol] 10.9 fL Normal 9.0-12.7 [facility] Comment on above: Order Comment: Speci men Type: BLOOD SPECIMENOrdering Facility: [facility] Address: [address] [place], [place] [address] Performed By: #### 5 7021-8 ####[facility] LABIA [id number] [place] [address] [place] Platelets (Bld) [#/Vol] 171 10*3/uL Normal 150-400 [facility] Comment on above: Order Comment: Speci men Type: BLOOD SPECIMENOrdering Facility: [facility] Address: [address] [place], [place] [address] Performed By: #### 5 7021-8 ####[facility] LABCLIA [id number] [place] [address] [place] RBC (Bld) [#/Vol] 4.90 10*6/uL Normal 3.90-5.20 [facility] Comment on above: Order Comment: Speci men Type: BLOOD SPECIMENOrdering Facility: [facility] Address: [address] [place], [place] [address] Performed By: #### 5 7021-8 ####[facility] LABCLIA [id number] [place] [address] [place] WBC (Bld) [#/Vol] 9.50 10*3/uL Normal 3.70-11.00 [facility] Comment on above: Order Comment: Speci men Type: BLOOD SPECIMENOrdering Facility: [facility] Address: [address] [place], [place] [address] Performed By: #### 5 7021-8 ####[facility] LABCLIA [id number] [place] [address] [place] CONSULTon 11-06-2022 CONSULT Normal [facility] Comprehensive metabolic 2000 panelon 11-06-2022 Albumin [Mass/Vol] 3.9 g/dL Normal 3.9-4.9 [facility] Comment on above: Order Comment: Speci men Type: BLOOD SPECIMENOrdering Facility: [facility] Address: [address] [place], [place] [address] Performed By: #### 2 4323-8 ####[facility] LABCLIA [id number] [place] [address] [place] ALP [Catalytic activity/Vol] 46 U/L Normal 34-123 [facility] Comment on above: Order Comment: Speci men Type: BLOOD SPECIMENOrdering Facility: [facility] Address: [address] [address] Performed By: #### 2 4323-8 ####[facility] LABCLIA [id number] [place] [address] [place] ALT [Catalytic activity/Vol] 16 U/L Normal 7-38 [facility] Comment on above: Order Comment: Speci men Type: BLOOD SPECIMENOrdering Facility: [facility] Address: [address] [place] [address] Performed By: #### 2 4323-8 ####[facility] LABCLIA [id number] [place] [address] [place] Anion gap [Moles/Vol] 15 mmol/L Normal 9-18 [facility] Comment on above: Order Comment: Speci men Type: BLOOD SPECIMENOrdering Facility: [facility] Address: [address] [place] [address] Performed By: #### 2 4323-8 ####[facility] LABCLIA [id number] [place] [address] [place] AST [Catalytic activity/Vol] 14 U/L Normal 13-35 [facility] Comment on above: Order Comment: Speci men Type: BLOOD SPECIMENOrdering Facility: [facility] Address: [address] Performed By: #### 2 4323-8 ####[facility] LABCLIA [id number] [place] [address] [place] Bilirubin [Mass/Vol] 1.0 mg/dL Normal 0.2-1.3 [facility] Comment on above: Order Comment: Speci men Type: BLOOD SPECIMENOrdering Facility: [facility] Address: [address] [place], [place] [address] Performed By: #### 2 4323-8 ####[facility] LABCLIA [id number] [facility] [place] [address] [place] Calcium [Mass/Vol] 9.5 mg/dL Normal 8.5-10.2 [facility] Comment on above: Order Comment: Speci men Type: BLOOD SPECIMENOrdering Facility: [facility] Address: [address] [place], [place] [address] Performed By: #### 2 4323-8 ####[facility] LABCLIA [id number] [place] [address] [place] Chloride [Moles/Vol] 101 mmol/L Normal 97-105 [facility] Comment on above: Order Comment: Speci men Type: BLOOD SPECIMENOrdering Facility: [facility] Address: [address] Performed By: #### 2 4323-8 ####[facility] LABCLIA [id number] [place] [address] [place] CO2 [Moles/Vol] 21 mmol/L Low 22-30 [facility] Comment on above: Order Comment: Speci men Type: BLOOD SPECIMENOrdering Facility: [facility] Address: [address] [place] [id number] Performed By: #### 2 4323-8 ####[facility] LABCLIA [id number] [place] [address] [place] Creatinine [Mass/Vol] 0.58 mg/dL Normal 0.58-0.96 [facility] Comment on above: Order Comment: Speci men Type: BLOOD SPECIMENOrdering Facility: [facility] Address: [address] [place] [address] Performed By: #### 2 4323-8 ####[facility] LABCLIA [id number] [place] [address] [place] ESTIMATED GLOMERULAR FILTRATION RATE 92 mL/min/1.73m??? Normal >=60 [facility] Comment on above: Order Comment: Kurt barraza Type: BLOOD SPECIMENOrdering Facility: [facility] Address: [address] [place] [address] Result Comment: Kim mated Glomerular Filtration Rate [...] actual GFR. Performed By: #### 2 4323-8 ####[facility] [id number] [place] [address] [place] Glucose [Mass/Vol] 89 mg/dL Normal 74-99 [facility] Comment on above: Order Comment: Kurt barraza Type: BLOOD SPECIMENOrdering Facility: [facility] Address: [address] [place] [address] Result Comment: The [place] [employer] (ADA) provides guidance for cutoff [...] Standards of Medical Care in Diabetes 2016, [place] [employer]. Diabetes Care. 2016.39(Suppl 1). Performed By: #### 2 4323-8 ####[facility] [id number] [place] [address] [place] Potassium [Moles/Vol] 4.2 mmol/L Normal 3.7-5.1 [facility] Comment on above: Order Comment: Kurt barraza Type: BLOOD SPECIMENOrdering Facility: [facility] Address: [address] [address] Performed By: #### 2 4323-8 ####[facility] LABIA [id number] [place] [address] [place] Protein [Mass/Vol] 6.0 g/dL Low 6.3-8.0 [facility] Comment on above: Order Comment: Speci men Type: BLOOD SPECIMENOrdering Facility: [facility] Address: [address] [place] [address] Performed By: #### 2 4323-8 ####[facility] LABIA [id number] [place] [address] [place] Sodium [Moles/Vol] 137 mmol/L Normal 136-144 [facility] Comment on above: Order Comment: Speci men Type: BLOOD SPECIMENOrdering Facility: [facility] Address: [address] [place] [address] Performed By: #### 2 4323-8 ####[facility] LABIA [id number] [place] [address] [place] Urea nitrogen [Mass/Vol] 18 mg/dL Normal 7-21 [facility] Comment on above: Order Comment: Speci men Type: BLOOD SPECIMENOrdering Facility: [facility] Address: [address] [place] [address] Performed By: #### 2 4323-8 ####[facility] LABIA [id number] [place] [address] [place] NUTRITIONon 11-06-2022 NUTRITION Normal [facility] THERAPY NTon 11-06-2022 THERAPY NT Normal [facility] THERAPY NT Normal [facility] CBC W Auto Differential pane l (Bld)on 11-05-2022 Basophils (Bld) [#/Vol] 10*3/uL Normal <0.11 [facility] Comment on above: Order Comment: Speci men Type: BLOOD SPECIMENOrdering Facility: [facility] Address: [address] Performed By: #### 5 7021-8 ####[facility] LABCLIA [id number] [address] STATES [facility] Basophils/100 WBC (Bld) 0.1 % Normal [facility] Comment on above: Order Comment: Speci men Type: BLOOD SPECIMENOrdering Facility: [facility] Address: [address] [place], [place] [address] Performed By: #### 5 7021-8 ####[facility] LABCLIA [id number] [address] OF [facility] Differential cell count method Nom (Bld) Auto Normal [facility] Comment on above: Order Comment: Speci men Type: BLOOD SPECIMENOrdering Facility: [facility] Address: [address] [place], [place] [id number] Performed By: #### 5 7021-8 ####[facility] LABCLIA [id number] [place] [address] [place] Eosinophils (Bld) [#/Vol] 10*3/uL Normal <0.46 [facility] Comment on above: Order Comment: Speci men Type: BLOOD SPECIMENOrdering Facility: [facility] Address: [address] [place], [place] [address] Performed By: #### 5 7021-8 ####[facility] LABCLIA [id number] [address] STATES [facility] Eosinophils/100 WBC (Bld) 0.2 % Normal [facility] Comment on above: Order Comment: Speci men Type: BLOOD SPECIMENOrdering Facility: [facility] Address: [address] [place], [place] [address] Performed By: #### 5 7021-8 ####[facility] LABCLIA [id number] [address] [address] [place] Erythrocyte distribution width (RBC) [Ratio] 13.4 % Normal 11.5-15.0 [facility] Comment on above: Order Comment: Speci men Type: BLOOD SPECIMENOrdering Facility: [facility] Address: [address] [place] [address] Performed By: #### 5 7021-8 ####[facility] LABCLIA [id number] [place] [address] [place] Hematocrit (Bld) [Volume fraction] 40.7 % Normal 36.0-46.0 [facility] Comment on above: Order Comment: Speci men Type: BLOOD SPECIMENOrdering Facility: [facility] Address: [address] [place] [address] Performed By: #### 5 7021-8 ####[facility] LABCLIA [id number] [place] [address] [place] Hemoglobin (Bld) [Mass/Vol] 13.7 g/dL Normal 11.5-15.5 [facility] Comment on above: Order Comment: Speci men Type: BLOOD SPECIMENOrdering Facility: [facility] Address: [address] [place], [place] [address] Performed By: #### 5 7021-8 ####[facility] LABCLIA [id number] [place] [address] [place] Immature granulocytes (Bld) [#/Vol] 0.11 10*3/uL High <0.10 [facility] Comment on above: Order Comment: Speci men Type: BLOOD SPECIMENOrdering Facility: [facility] Address: [address] [place], [place] [address] Performed By: #### 5 7021-8 ####[facility] LABCLIA [id number] [place] [address] [place] Immature granulocytes/100 WBC (Bld) 1.0 % Normal [facility] Comment on above: Order Comment: Speci men Type: BLOOD SPECIMENOrdering Facility: [facility] Address: [address] Performed By: #### 5 7021-8 ####[facility] LABCLIA [id number] [place] [address] [place] [facility] Lymphocytes (Bld) [#/Vol] 0.27 10*3/uL Low 1.00-4.00 [facility] Comment on above: Order Comment: Speci men Type: BLOOD SPECIMENOrdering Facility: [facility] Address: [address] [place] [place] [address] Performed By: #### 5 7021-8 ####[facility] LABCLIA [id number] [address] [place] Lymphocytes/100 WBC (Bld) 2.6 % Normal [facility] Comment on above: Order Comment: Speci men Type: BLOOD SPECIMENOrdering Facility: [facility] Address: [address] [place], [place] [address] Performed By: #### 5 7021-8 ####[facility] LABCLIA [id number] [place] [address] [place] MCH (RBC) [Entitic mass] 30.2 pg Normal 26.0-34.0 [facility] Comment on above: Order Comment: Speci men Type: BLOOD SPECIMENOrdering Facility: [facility] Address: [address] Performed By: #### 5 7021-8 ####[facility] LABCLIA [id number] [place] [address] [place] MCHC (RBC) [Mass/Vol] 33.7 g/dL Normal 30.5-36.0 [facility] Comment on above: Order Comment: Speci men Type: BLOOD SPECIMENOrdering Facility: [facility] Address: [address] [place], [place] [address] Performed By: #### 5 7021-8 ####[facility] LABCLIA [id number] [place] [address] [place] MCV (RBC) [Entitic vol] 89.8 fL Normal 80.0-100.0 [facility] Comment on above: Order Comment: Speci men Type: BLOOD SPECIMENOrdering Facility: [facility] Address: [address] [place] [address] Performed By: #### 5 7021-8 ####[facility] LABIA [id number] [place] [address] [place] Monocytes (Bld) [#/Vol] 0.38 10*3/uL Normal <0.87 [facility] Comment on above: Order Comment: Speci men Type: BLOOD SPECIMENOrdering Facility: [facility] Address: [address] [place] [address] Performed By: #### 5 7021-8 ####[facility] LABIA [id number] [place] [address] [place] Monocytes/100 WBC (Bld) 3.6 % Normal [facility] Comment on above: Order Comment: Speci men Type: BLOOD SPECIMENOrdering Facility: [facility] Address: [address] [place] [address] Performed By: #### 5 7021-8 ####[facility] LABIA [id number] [place] [address] [place] Neutrophils (Bld) [#/Vol] 9.78 10*3/uL High 1.45-7.50 [facility] Comment on above: Order Comment: Speci men Type: BLOOD SPECIMENOrdering Facility: [facility] Address: [address] [place], [place] [address] Performed By: #### 5 7021-8 ####[facility] LABIA [id number] [place] [address] [place] Neutrophils/100 WBC (Bld) 92.5 % Normal [facility] Comment on above: Order Comment: Speci men Type: BLOOD SPECIMENOrdering Facility: [facility] Address: [address] Performed By: #### 5 7021-8 ####[facility] LABIA [id number] [place] [address] [place] Nucleated RBC (Bld) [#/Vol] 10*3/uL Normal <0.01 [facility] Comment on above: Order Comment: Speci men Type: BLOOD SPECIMENOrdering Facility: [facility] Address: [address] Performed By: #### 5 7021-8 ####[facility] [id number] [place] [address] [place] Nucleated RBC/100 WBC (Bld) [Ratio] 0.0 /100 WBC Normal [facility] Comment on above: Order Comment: Speci men Type: BLOOD SPECIMENOrdering Facility: [facility] Address: [address] Performed By: #### 5 7021-8 ####[facility] [id number] [place] [address] [place] Platelet mean volume (Bld) [Entitic vol] 11.1 fL Normal 9.0-12.7 [facility] Comment on above: Order Comment: Speci men Type: BLOOD SPECIMENOrdering Facility: [facility] Address: [address] [place] [address] Performed By: #### 5 7021-8 ####[facility] LAB[facility] [id number] [place] [address] [place] Platelets (Bld) [#/Vol] 150 10*3/uL Normal 150-400 [facility] Comment on above: Order Comment: Speci men Type: BLOOD SPECIMENOrdering Facility: [facility] Address: [address] [place] [address] Performed By: #### 5 7021-8 ####[facility] LABCLIA [id number] [place] [address] [place] RBC (Bld) [#/Vol] 4.53 10*6/uL Normal 3.90-5.20 [facility] Comment on above: Order Comment: Speci men Type: BLOOD SPECIMENOrdering Facility: [facility] Address: [address] [place], [place] [address] Performed By: #### 5 7021-8 ####[facility] LABCLIA [id number] [place] [address] [place] WBC (Bld) [#/Vol] 10.57 10*3/uL Normal 3.70-11.00 [facility] Comment on above: Order Comment: Speci men Type: BLOOD SPECIMENOrdering Facility: [facility] Address: [address] [place], [place] [address] Performed By: #### 5 7021-8 ####[facility] LABIA [id number] [place] [address] [place] Comprehensive metabolic 2000 panelon 11-05-2022 Albumin [Mass/Vol] 3.7 g/dL Low 3.9-4.9 [facility] Comment on above: Order Comment: Speci men Type: BLOOD SPECIMENOrdering Facility: [facility] Address: [address] [place] [address] Performed By: #### 2 4323-8 ####[facility] LABCLIA [id number] [place] [address] [place] ALP [Catalytic activity/Vol] 44 U/L Normal 34-123 [facility] Comment on above: Order Comment: Speci men Type: BLOOD SPECIMENOrdering Facility: [facility] Address: [address] [place], [place] [address] Performed By: #### 2 4323-8 ####[facility] LABCLIA [id number] [place] [address] [place] ALT [Catalytic activity/Vol] 17 U/L Normal 7-38 [facility] Comment on above: Order Comment: Speci men Type: BLOOD SPECIMENOrdering Facility: [facility] Address: [address] [place] [address] Performed By: #### 2 4323-8 ####[facility] LABCLIA [id number] [place] [address] [place] Anion gap [Moles/Vol] 15 mmol/L Normal 9-18 [facility] Comment on above: Order Comment: Speci men Type: BLOOD SPECIMENOrdering Facility: [facility] Address: [address] [place] [address] Performed By: #### 2 4323-8 ####[facility] LABCLIA [id number] [place] [address] [place] AST [Catalytic activity/Vol] 14 U/L Normal 13-35 [facility] Comment on above: Order Comment: Speci men Type: BLOOD SPECIMENOrdering Facility: [facility] Address: [address] [place], [place] [address] Performed By: #### 2 4323-8 ####[facility] LABCLIA [id number] [place] [address] [place] Bilirubin [Mass/Vol] 0.8 mg/dL Normal 0.2-1.3 [facility] Comment on above: Order Comment: Speci men Type: BLOOD SPECIMENOrdering Facility: [facility] Address: [address] [place], [place] [address] Performed By: #### 2 4323-8 ####[facility] LABCLIA [id number] [place] [address] [place] Calcium [Mass/Vol] 9.1 mg/dL Normal 8.5-10.2 [facility] Comment on above: Order Comment: Speci men Type: BLOOD SPECIMENOrdering Facility: [facility] Address: [address] Performed By: #### 2 4323-8 ####[facility] LABCLIA [id number] [place] [address] [place] Chloride [Moles/Vol] 100 mmol/L Normal 97-105 [facility] Comment on above: Order Comment: Speci men Type: BLOOD SPECIMENOrdering Facility: [facility] Address: [address] [place] [address] Performed By: #### 2 4323-8 ####[facility] LABCLIA [id number] [place] [address] [place] CO2 [Moles/Vol] 20 mmol/L Low 22-30 [facility] Comment on above: Order Comment: Speci men Type: BLOOD SPECIMENOrdering Facility: [facility] Address: [address] [place] [address] Performed By: #### 2 4323-8 ####[facility] LABIA [id number] [place] [address] [place] Creatinine [Mass/Vol] 0.66 mg/dL Normal 0.58-0.96 [facility] Comment on above: Order Comment: Speci men Type: BLOOD SPECIMENOrdering Facility: [facility] Address: [address] [place] [address] Performed By: #### 2 4323-8 ####[facility] LABCLIA [id number] [place] [address] [place] ESTIMATED GLOMERULAR FILTRATION RATE 89 mL/min/1.73m??? Normal >=60 [facility] Comment on above: Order Comment: Speci men Type: BLOOD SPECIMENOrdering Facility: [facility] Address: [address] [place] [address] Result Comment: Kim mated Glomerular Filtration Rate [...] actual GFR. Performed By: #### 2 4323-8 ####[facility] LABCLIA [id number] [place] [address] [place] Glucose [Mass/Vol] 99 mg/dL Normal 74-99 [facility] Comment on above: Order Comment: Kurt barraza Type: BLOOD SPECIMENOrdering Facility: [facility] Address: [address] [id number] Result Comment: The [place] [employer] (ADA) provides guidance for cutoff [...] Standards of Medical Care in Diabetes 2016, [place] [employer]. Diabetes Care. 2016.39(Suppl 1). Performed By: #### 2 4323-8 ####[facility] LABCLIA [id number] [place] [address] [place] Potassium [Moles/Vol] 4.0 mmol/L Normal 3.7-5.1 [facility] Comment on above: Order Comment: Kurt barraza Type: BLOOD SPECIMENOrdering Facility: [facility] Address: [address] [place] [address] Performed By: #### 2 4323-8 ####[facility] LABCLIA [id number] [address] [address] [place] Protein [Mass/Vol] 6.0 g/dL Low 6.3-8.0 [facility] Comment on above: Order Comment: Speci men Type: BLOOD SPECIMENOrdering Facility: [facility] Address: [address] [place] [address] Performed By: #### 2 4323-8 ####[facility] LABCLIA [id number] [place] [address] [place] Sodium [Moles/Vol] 135 mmol/L Low 136-144 [facility] Comment on above: Order Comment: Speci men Type: BLOOD SPECIMENOrdering Facility: [facility] Address: [address] [place] [address] Performed By: #### 2 4323-8 ####[facility] LABCLIA [id number] [place] [address] [place] Urea nitrogen [Mass/Vol] 21 mg/dL Normal 7-21 [facility] Comment on above: Order Comment: Speci men Type: BLOOD SPECIMENOrdering Facility: [facility] Address: [address] [place] [address] Performed By: #### 2 4323-8 ####[facility] LABIA [id number] [place] [address] [place] CBC W Auto Differential pane l (Bld)on 11-04-2022 Basophils (Bld) [#/Vol] 10*3/uL Normal <0.11 [facility] Comment on above: Order Comment: Speci men Type: BLOOD SPECIMENOrdering Facility: [facility] Address: [address] [place] [address] Performed By: #### 5 7021-8 ####[facility] LABIA [id number] [place] [address] [place] Basophils/100 WBC (Bld) 0.1 % Normal [facility] Comment on above: Order Comment: Speci men Type: BLOOD SPECIMENOrdering Facility: [facility] Address: [address] [place] [address] Performed By: #### 5 7021-8 ####[facility] LABCLIA [id number] [address] [place] Differential cell count method Nom (Bld) Auto Normal [facility] Comment on above: Order Comment: Speci men Type: BLOOD SPECIMENOrdering Facility: [facility] Address: [address] [place], [place] [address] Performed By: #### 5 7021-8 ####[facility] LABCLIA [id number] [place] [address] [place] Eosinophils (Bld) [#/Vol] 10*3/uL Normal <0.46 [facility] Comment on above: Order Comment: Speci men Type: BLOOD SPECIMENOrdering Facility: [facility] Address: [address] [place], [place] [address] Performed By: #### 5 7021-8 ####[facility] LABCLIA [id number] [address] [place] Eosinophils/100 WBC (Bld) 0.0 % Normal [facility] Comment on above: Order Comment: Speci men Type: BLOOD SPECIMENOrdering Facility: [facility] Address: [address] [place] [address] Performed By: #### 5 7021-8 ####[facility] LABIA [id number] [place] [address] [place] Erythrocyte distribution width (RBC) [Ratio] 13.4 % Normal 11.5-15.0 [facility] Comment on above: Order Comment: Speci men Type: BLOOD SPECIMENOrdering Facility: [facility] Address: [address] [place] [address] Performed By: #### 5 7021-8 ####[facility] LABCLIA [id number] [address] [place] Hematocrit (Bld) [Volume fraction] 41.7 % Normal 36.0-46.0 [facility] Comment on above: Order Comment: Speci men Type: BLOOD SPECIMENOrdering Facility: [facility] Address: [address] [place], [place] [address] Performed By: #### 5 7021-8 ####[facility] LABCLIA [id number] [place] [address] [place] Hemoglobin (Bld) [Mass/Vol] 14.0 g/dL Normal 11.5-15.5 [facility] Comment on above: Order Comment: Speci men Type: BLOOD SPECIMENOrdering Facility: [facility] Address: [address] [place] [address] Performed By: #### 5 7021-8 ####[facility] LABCLIA [id number] [place] [address] [place] Immature granulocytes (Bld) [#/Vol] 0.19 10*3/uL High <0.10 [facility] Comment on above: Order Comment: Speci men Type: BLOOD SPECIMENOrdering Facility: [facility] Address: [address] [place], [place] [address] Performed By: #### 5 7021-8 ####[facility] LABIA [id number] [place] [address] [place] Immature granulocytes/100 WBC (Bld) 1.5 % Normal [facility] Comment on above: Order Comment: Speci men Type: BLOOD SPECIMENOrdering Facility: [facility] Address: [address] [place], [place] [address] Performed By: #### 5 7021-8 ####[facility] LABIA [id number] [place] [address] [place] Lymphocytes (Bld) [#/Vol] 0.22 10*3/uL Low 1.00-4.00 [facility] Comment on above: Order Comment: Speci men Type: BLOOD SPECIMENOrdering Facility: [facility] Address: [address] Performed By: #### 5 7021-8 ####[facility] LABIA [id number] [address] STATES OF [facility] Lymphocytes/100 WBC (Bld) 1.8 % Normal [facility] Comment on above: Order Comment: Speci men Type: BLOOD SPECIMENOrdering Facility: [facility] Address: [address] [place], [place] [address] Performed By: #### 5 7021-8 ####[facility] LABIA [id number] [place] [address] [place] MCH (RBC) [Entitic mass] 30.3 pg Normal 26.0-34.0 [facility] Comment on above: Order Comment: Speci men Type: BLOOD SPECIMENOrdering Facility: [facility] Address: [address] [place], [place] [address] Performed By: #### 5 7021-8 ####[facility] LABIA [id number] [place] [address] [place] MCHC (RBC) [Mass/Vol] 33.6 g/dL Normal 30.5-36.0 [facility] Comment on above: Order Comment: Speci men Type: BLOOD SPECIMENOrdering Facility: [facility] Address: [address] [place], [place] [address] Performed By: #### 5 7021-8 ####[facility] LABIA [id number] [address] [place] MCV (RBC) [Entitic vol] 90.3 fL Normal 80.0-100.0 [facility] Comment on above: Order Comment: Speci men Type: BLOOD SPECIMENOrdering Facility: [facility] Address: [address] [place], [place] [address] Performed By: #### 5 7021-8 ####[facility] LABIA [id number] [place] [address] [place] Monocytes (Bld) [#/Vol] 0.62 10*3/uL Normal <0.87 [facility] Comment on above: Order Comment: Speci men Type: BLOOD SPECIMENOrdering Facility: [facility] Address: [address] [place] [address] Performed By: #### 5 7021-8 ####[facility] LABCLIA [id number] [place] [address] [place] Monocytes/100 WBC (Bld) 5.0 % Normal [facility] Comment on above: Order Comment: Speci men Type: BLOOD SPECIMENOrdering Facility: [facility] Address: [address] [place] [address] Performed By: #### 5 7021-8 ####[facility] LABCLIA [id number] [place] [address] [place] Neutrophils (Bld) [#/Vol] 11.35 10*3/uL High 1.45-7.50 [facility] Comment on above: Order Comment: Speci men Type: BLOOD SPECIMENOrdering Facility: [facility] Address: [address] [place], [place] [address] Performed By: #### 5 7021-8 ####[facility] LABCLIA [id number] [place] [address] [place] Neutrophils/100 WBC (Bld) 91.6 % Normal [facility] Comment on above: Order Comment: Speci men Type: BLOOD SPECIMENOrdering Facility: [facility] Address: [address] [place], [place] [address] Performed By: #### 5 7021-8 ####[facility] LABCLIA [id number] [place] [address] [place] Nucleated RBC (Bld) [#/Vol] 10*3/uL Normal <0.01 [facility] Comment on above: Order Comment: Speci men Type: BLOOD SPECIMENOrdering Facility: [facility] Address: [address] Performed By: #### 5 7021-8 ####[facility] LABIA [id number] [place] [address] [place] Nucleated RBC/100 WBC (Bld) [Ratio] 0.0 /100 WBC Normal [facility] Comment on above: Order Comment: Speci men Type: BLOOD SPECIMENOrdering Facility: [facility] Address: [address] Performed By: #### 5 7021-8 ####[facility] LABIA [id number] [place] [address] [place] Platelet mean volume (Bld) [Entitic vol] 11.1 fL Normal 9.0-12.7 [facility] Comment on above: Order Comment: Speci men Type: BLOOD SPECIMENOrdering Facility: [facility] Address: [address] [place], [place] [address] Performed By: #### 5 7021-8 ####[facility] LABIA [id number] [place] [address] [place] Platelets (Bld) [#/Vol] 187 10*3/uL Normal 150-400 [facility] Comment on above: Order Comment: Speci men Type: BLOOD SPECIMENOrdering Facility: [facility] Address: [address] [place] [address] Performed By: #### 5 7021-8 ####[facility] LABIA [id number] [place] [address] [place] RBC (Bld) [#/Vol] 4.62 10*6/uL Normal 3.90-5.20 [facility] Comment on above: Order Comment: Speci men Type: BLOOD SPECIMENOrdering Facility: [facility] Address: [address] [place], [place] [address] Performed By: #### 5 7021-8 ####[facility] LABCLIA [id number] [place] [address] [place] WBC (Bld) [#/Vol] 12.39 10*3/uL High 3.70-11.00 [facility] Comment on above: Order Comment: Speci men Type: BLOOD SPECIMENOrdering Facility: [facility] Address: [address] [address] Performed By: #### 5 7021-8 ####[facility] LABCLIA [id number] [place] [address] [place] BRAIN WO IVCONon 11-05-19 CT BRAIN WO IVCON Normal [facility] metabolic 2000 panelon 11-04-2022 Albumin [Mass/Vol] 3.8 g/dL Low 3.9-4.9 [facility] Comment on above: Order Comment: Speci men Type: BLOOD SPECIMENOrdering Facility: [facility] Address: [address] [place], [place] [address] Performed By: #### 2 4323-8, 24506-4, 2777-1, 3016-3 ####[facility] LABIA [id number] [place] [address] [place] [Catalytic activity/Vol] 47 U/L Normal 34-123 [facility] Comment on above: Order Comment: Speci men Type: BLOOD SPECIMENOrdering Facility: [facility] Address: [address] Performed By: #### 2 4323-8, 55398-9, 2777-1, 3016-3 ####[facility] LABCLIA [id number] [place] [address] [place] [Catalytic activity/Vol] 15 U/L Normal 7-38 [facility] Comment on above: Order Comment: Speci men Type: BLOOD SPECIMENOrdering Facility: [facility] Address: [address] [place] [address] Performed By: #### 2 4323-8, 91926-5, 2777-1, 3016-3 ####[facility] LABCLIA [id number] [place] [address] [place] Anion gap [Moles/Vol] 11 mmol/L Normal 9-18 [facility] Comment on above: Order Comment: Speci men Type: BLOOD SPECIMENOrdering Facility: [facility] Address: [address] [place] [address] Performed By: #### 2 4323-8, 05478-5, 2777-1, 3016-3 ####[facility] LABCLIA [id number] [place] [address] [place] AST [Catalytic activity/Vol] 9 U/L Low 13-35 [facility] Comment on above: Order Comment: Speci men Type: BLOOD SPECIMENOrdering Facility: [facility] Address: [address] [place] [address] Performed By: #### 2 4323-8, 84100-1, 2777-1, 3016-3 ####[facility] LABCLIA [id number] [place] [address] [place] Bilirubin [Mass/Vol] 0.6 mg/dL Normal 0.2-1.3 [facility] Comment on above: Order Comment: Speci men Type: BLOOD SPECIMENOrdering Facility: [facility] Address: [address] [place] [address] Performed By: #### 2 4323-8, 97669-6, 2777-1, 3016-3 ####[facility] LABCLIA [id number] [place] [address] [place] Calcium [Mass/Vol] 9.0 mg/dL Normal 8.5-10.2 [facility] Comment on above: Order Comment: Speci men Type: BLOOD SPECIMENOrdering Facility: [facility] Address: [address] [place], [place] [address] Performed By: #### 2 4323-8, 59899-7, 2777-1, 3016-3 ####[facility] LABCLIA [id number] [place] [address] [place] Chloride [Moles/Vol] 102 mmol/L Normal 97-105 [facility] Comment on above: Order Comment: Speci men Type: BLOOD SPECIMENOrdering Facility: [facility] Address: [address] [place], [place] [address] Performed By: #### 2 4323-8, 98734-5, 2777-1, 3016-3 ####[facility] LABCLIA [id number] [place] [address] [place] CO2 [Moles/Vol] 22 mmol/L Normal 22-30 [facility] Comment on above: Order Comment: Speci men Type: BLOOD SPECIMENOrdering Facility: [facility] Address: [address] [place], [place] [address] Performed By: #### 2 4323-8, 86291-4, 277-1, 3016-3 ####[facility] LABCLIA [id number] [place] [address] [place] Creatinine [Mass/Vol] 0.65 mg/dL Normal 0.58-0.96 [facility] Comment on above: Order Comment: Speci men Type: BLOOD SPECIMENOrdering Facility: [facility] Address: [address] [place], [place] [id number] Performed By: #### 2 4323-8, 72841-8, 2777-1, 3016-3 ####[facility] LABCLIA [id number] [place] [address] [place] ESTIMATED GLOMERULAR FILTRATION RATE 90 mL/min/1.73m??? Normal >=60 [facility] Comment on above: Order Comment: Speci men Type: BLOOD SPECIMENOrdering Facility: [facility] Address: [facility] [place] [address] Result Comment: Kim mated Glomerular Filtration Rate [...] actual GFR. Performed By: #### 2 4323-8, 41794-0, 2776-1, 6-3 ####[facility] LABIA [id number] [place] [id number] [place] Glucose [Mass/Vol] 114 mg/dL High 74-99 [facility] Comment on above: Order Comment: Kurt barraza Type: BLOOD SPECIMENOrdering Facility: [facility] Address: [address] [id number] Result Comment: The [place] [employer] (ADA) provides guidance for cutoff [...] Standards of Medical Care in Diabetes 2016, [place] [employer]. Diabetes Care. 2016.39(Suppl 1). Performed By: #### 2 4323-8, 54783-3, 2776-1, 6-3 ####[facility] LABIA [id number] [place] [id number] [place] Potassium [Moles/Vol] 4.2 mmol/L Normal 3.7-5.1 [facility] Comment on above: Order Comment: Kurt men Type: BLOOD SPECIMENOrdering Facility: [facility] Address: [address] [place] [address] Performed By: #### 2 4323-8, 46827-0, 2777-1, 3016-3 ####[facility] LABCLIA [id number] [place] [id number] [place] Protein [Mass/Vol] 5.8 g/dL Low 6.3-8.0 [facility] Comment on above: Order Comment: Speci men Type: BLOOD SPECIMENOrdering Facility: [facility] Address: [address] [phone] Performed By: #### 2 4323-8, 02262-4, 2777-1, 3016-3 ####[facility] LABIA [id number] [place] [address] [place] Sodium [Moles/Vol] 135 mmol/L Low 136-144 [facility] Comment on above: Order Comment: Speci men Type: BLOOD SPECIMENOrdering Facility: [facility] Address: [address] [place], [place] [phone] Performed By: #### 2 4323-8, 68149-4, 2777-1, 3016-3 ####[facility] LABIA [id number] [place] [address] [place] Urea nitrogen [Mass/Vol] 26 mg/dL High 7-21 [facility] Comment on above: Order Comment: Speci men Type: BLOOD SPECIMENOrdering Facility: [facility] Address: [address] [place] [phone] Performed By: #### 2 4323-8, 57203-4, 2777-1, 3016-3 ####[facility] LABIA [id number] [place] [id number] [place] ED NOTEon 11-04-2022 ED NOTE HNO ID: [id number] Author: Emily Cruz RN Service: Emergency Medicine Author Type: Registered Nurse Type: ED Notes Filed: 11/04/2022 4:59 PM Note Text: Called report to Mishel REED. Normal [facility] ED PROV NOTEon 11-04-2022 ED PROV NOTE Normal [facility] HISTORY PHYSICALon HISTORY PHYSICAL Normal [facility] Magnesium SerPl-mCncon 11-04 Magnesium [Mass/Vol] 2.3 mg/dL Normal 1.7-2.3 [facility] Comment on above: Order Comment: Speci men Type: BLOOD SPECIMENOrdering Facility: [facility] Address: [address] [place], [place] [phone] Performed By: #### 2 4323-8, 23746-4, 2777-1, 3016-3 ####[facility] LABCLIA [id number] [place] [id number] [place] Phosphate SerPl-mCncon 11-04 Phosphate [Mass/Vol] 3.4 mg/dL Normal 2.7-4.8 [facility] Comment on above: Order Comment: Speci men Type: BLOOD SPECIMENOrdering Facility: [facility] Address: [address] [place] [address] Performed By: #### 2 4323-8, 35394-5, 277-1, 3016-3 ####[facility] LABCLIA [id number] [place] [id number] [place] TSH SerPl-aCncon 11-04-2022 TSH Qn 0.940 m[IU]/L Normal 0.270-4.20 0 [facility] Comment on above: Order Comment: Speci men Type: BLOOD SPECIMENOrdering Facility: [facility] Address: [address] [place], [place] [phone] Performed By: #### 2 4323-8, 02625-2, 277-1, 3016-3 ####[facility] LABCLIA [id number] [address] [address] [place] Urinalysis complete panel (U )on 11-04-2022 Bilirubin Ql (U) Negative Normal Negative [facility] Comment on above: Order Comment: Speci men Type: URINE SPECIMENOrdering Facility: [facility] Address: [address] Performed By: #### 2 4356-8 ####[facility] LABCLIA [id number] [place] [address] [place] Clarity (Unsp spec) Clear Normal Clear [facility] Comment on above: Order Comment: Speci men Type: URINE SPECIMENOrdering Facility: [facility] Address: [address] Performed By: #### 2 4356-8 ####[facility] LABCLIA [id number] [place] [address] [place] Color (U) Yellow Normal Yellow [facility] Comment on above: Order Comment: Speci men Type: URINE SPECIMENOrdering Facility: [facility] Address: [address] Performed By: #### 2 4356-8 ####[facility] LABCLIA [id number] [place] [address] [place] Epithelial cells LM.HPF (Urine sed) [#/Area] Few Normal [facility] Comment on above: Order Comment: Speci men Type: URINE SPECIMENOrdering Facility: [facility] Address: [address] Performed By: #### 2 4356-8 ####[facility] LABCLIA [id number] [place] [address] [place] Glucose Test strip (U) [Mass/Vol] Negative Normal Trace, Negative [facility] Comment on above: Order Comment: Speci men Type: URINE SPECIMENOrdering Facility: [facility] Address: [address] Performed By: #### 2 4356-8 ####[facility] LABCLIA [id number] [place] [address] [place] Hemoglobin Ql (U) Negative Normal Negative, Trace [facility] Comment on above: Order Comment: Speci men Type: URINE SPECIMENOrdering Facility: [facility] Address: [address] [place] [address] Performed By: #### 2 4356-8 ####[facility] LABCLIA [id number] [place] [address] [place] Ketones Ql (U) Negative Normal Trace, Negative [facility] Comment on above: Order Comment: Speci men Type: URINE SPECIMENOrdering Facility: [facility] Address: [address] [place] [address] Performed By: #### 2 4356-8 ####[facility] LABCLIA [id number] [place] [address] [place] Leukocyte esterase Test strip Ql (U) 250 Gretta/uL Abnormal Negative, 25 Gretta/uL [facility] Comment on above: Order Comment: Speci men Type: URINE SPECIMENOrdering Facility: [facility] Address: [address] [place] [address] Performed By: #### 2 4356-8 ####[facility] LABCLIA [id number] [place] [address] [place] Nitrite Ql (U) Negative Normal Negative [facility] Comment on above: Order Comment: Speci men Type: URINE SPECIMENOrdering Facility: [facility] Address: [address] [place], [place] [address] Performed By: #### 2 4356-8 ####[facility] LABCLIA [id number] [place] [address] [place] pH (U) 6.5 [pH] Normal 5.0-8.0 [facility] Comment on above: Order Comment: Speci men Type: URINE SPECIMENOrdering Facility: [facility] Address: [address] [place], [place] [phone] Performed By: #### 2 4356-8 ####[facility] LABIA [id number] [place] [address] [place] Protein (U) [Mass/Vol] Trace Normal Trace , Negative [facility] Comment on above: Order Comment: Speci men Type: URINE SPECIMENOrdering Facility: [facility] Address: [address] [place], [place] [address] Performed By: #### 2 4356-8 ####[facility] [id number] [place] [address] [place] RBC LM.HPF (Urine sed) [#/Area] 3-5 /HPF Abnormal 0-3 /HPF [facility] Comment on above: Order Comment: Speci men Type: URINE SPECIMENOrdering Facility: [facility] Address: [address] [place], [place] [address] Performed By: #### 2 4356-8 ####[facility] [id number] [place] [address] [place] Specific gravity (U) [Rel density] 1.031 High 1.005-1.03 0 [facility] Comment on above: Order Comment: Speci men Type: URINE SPECIMENOrdering Facility: [facility] Address: [address] [place], [place] [address] Performed By: #### 2 4356-8 ####[facility] [id number] [place] [address] [place] Urobilinogen Ql (U) Negative Normal Negative [facility] Comment on above: Order Comment: Speci men Type: URINE SPECIMENOrdering Facility: [facility] Address: [address] [place], [place] [address] Performed By: #### 2 4356-8 ####[facility] LABIA [id number] [address] [address] [place] WBC LM.HPF (Urine sed) [#/Area] 11-25 /HPF Abnormal 0-5 /HPF [facility] Comment on above: Order Comment: Speci men Type: URINE SPECIMENOrdering Facility: [facility] Address: [address] [place] [address] Performed By: #### 2 4356-8 ####[facility] LABCLIA [id number] [address] [place] Urinalysis complete pnl Uron 11-04-2022 Urinalysis complete panel (U) Normal [facility] Comment on above: Order Comment: Speci men Type: URINE SPECIMENOrdering Facility: [facility] Address: [address] [place] [address] Performed By: #### 2 4356-8 ####[facility] LABCLIA [id number] [address] [place] XR CHEST 1V FRONTAL PORTon 0 11-04-2022 XR CHEST 1V FRONTAL PORT Normal [facility] CBC W Auto Differential pane l (Bld)on 11-02-2022 Basophils (Bld) [#/Vol] 10*3/uL Normal <0.11 [facility] Comment on above: Order Comment: Speci men Type: BLOOD SPECIMENOrdering Facility: [facility] Address: [address] [place] [address] Performed By: #### 5 7021-8 ####[facility] LABCLIA [id number] [place] [address] Basophils/100 WBC (Bld) 0.1 % Normal [facility] Comment on above: Order Comment: Speci men Type: BLOOD SPECIMENOrdering Facility: [facility] Address: [address] [place] [address] Performed By: #### 5 7021-8 ####[facility] LABCLIA [id number] [place] [address] Differential cell count method Nom (Bld) Auto Normal [facility] Comment on above: Order Comment: Speci men Type: BLOOD SPECIMENOrdering Facility: [facility] Address: [address] [place] [address] Performed By: #### 5 7021-8 ####[facility] LABCLIA [id number] [place] [address] Eosinophils (Bld) [#/Vol] 10*3/uL Normal <0.46 [facility] Comment on above: Order Comment: Speci men Type: BLOOD SPECIMENOrdering Facility: [facility] Address: [address] [address] Performed By: #### 5 7021-8 ####[facility] LABCLIA [id number] [place] [address] Eosinophils/100 WBC (Bld) 0.1 % Normal [facility] Comment on above: Order Comment: Speci men Type: BLOOD SPECIMENOrdering Facility: [facility] Address: [address] [place] [address] Performed By: #### 5 7021-8 ####[facility] LABCLIA [id number] [place] [address] Erythrocyte distribution width (RBC) [Ratio] 13.5 % Normal 11.5-15.0 [facility] Comment on above: Order Comment: Speci men Type: BLOOD SPECIMENOrdering Facility: [facility] Address: [address] [place] [address] Performed By: #### 5 7021-8 ####[facility] LABCLIA [id number] [place] [address] Hematocrit (Bld) [Volume fraction] 41.8 % Normal 36.0-46.0 [facility] Comment on above: Order Comment: Speci men Type: BLOOD SPECIMENOrdering Facility: [facility] Address: [address] [place] [address] Performed By: #### 5 7021-8 ####[facility] LABCLIA [id number] [place] [address] Hemoglobin (Bld) [Mass/Vol] 13.7 g/dL Normal 11.5-15.5 [facility] Comment on above: Order Comment: Speci men Type: BLOOD SPECIMENOrdering Facility: [facility] Address: [address] [place] [address] Performed By: #### 5 7021-8 ####[facility] LABCLIA [id number] [place] [address] Immature granulocytes (Bld) [#/Vol] 0.11 10*3/uL High <0.10 [facility] Comment on above: Order Comment: Speci men Type: BLOOD SPECIMENOrdering Facility: [facility] Address: [address] [place] [address] Performed By: #### 5 7021-8 ####[facility] LABCLIA [id number] [place] [address] Immature granulocytes/100 WBC (Bld) 1.1 % Normal [facility] Comment on above: Order Comment: Speci men Type: BLOOD SPECIMENOrdering Facility: [facility] Address: [address] [place] [address] Performed By: #### 5 7021-8 ####[facility] LABCLIA [id number] [place] [address] Lymphocytes (Bld) [#/Vol] 0.33 10*3/uL Low 1.00-4.00 [facility] Comment on above: Order Comment: Speci men Type: BLOOD SPECIMENOrdering Facility: [facility] Address: [address] [place] [address] Performed By: #### 5 7021-8 ####[facility] LABCLIA [id number] [place] [address] Lymphocytes/100 WBC (Bld) 3.4 % Normal [facility] Comment on above: Order Comment: Speci men Type: BLOOD SPECIMENOrdering Facility: [facility] Address: [address] [address] Performed By: #### 5 7021-8 ####[facility] LABCLIA [id number] [place] [address] MCH (RBC) [Entitic mass] 30.3 pg Normal 26.0-34.0 [facility] Comment on above: Order Comment: Speci men Type: BLOOD SPECIMENOrdering Facility: [facility] Address: [address] [place] [address] Performed By: #### 5 7021-8 ####[facility] LABCLIA [id number] [place] [address] MCHC (RBC) [Mass/Vol] 32.8 g/dL Normal 30.5-36.0 [facility] Comment on above: Order Comment: Speci men Type: BLOOD SPECIMENOrdering Facility: [facility] Address: [address] [place] [address] Performed By: #### 5 7021-8 ####[facility] LABIA [id number] [place] [address] MCV (RBC) [Entitic vol] 92.5 fL Normal 80.0-100.0 [facility] Comment on above: Order Comment: Speci men Type: BLOOD SPECIMENOrdering Facility: [facility] Address: [address] [place] [address] Performed By: #### 5 7021-8 ####[facility] LABCLIA [id number] [place] [address] Monocytes (Bld) [#/Vol] 0.56 10*3/uL Normal <0.87 [facility] Comment on above: Order Comment: Speci men Type: BLOOD SPECIMENOrdering Facility: [facility] Address: [address] [place] [address] Performed By: #### 5 7021-8 ####[facility] LABCLIA [id number] [place] [address] Monocytes/100 WBC (Bld) 5.7 % Normal [facility] Comment on above: Order Comment: Speci men Type: BLOOD SPECIMENOrdering Facility: [facility] Address: [address] [place] [address] Performed By: #### 5 7021-8 ####[facility] LABCLIA [id number] [place] [address] Neutrophils (Bld) [#/Vol] 8.81 10*3/uL High 1.45-7.50 [facility] Comment on above: Order Comment: Speci men Type: BLOOD SPECIMENOrdering Facility: [facility] Address: [address] [place] [address] Performed By: #### 5 7021-8 ####[facility] LABCLIA [id number] [place] [address] Neutrophils/100 WBC (Bld) 89.6 % Normal [facility] Comment on above: Order Comment: Speci men Type: BLOOD SPECIMENOrdering Facility: [facility] Address: [address] [place] [address] Performed By: #### 5 7021-8 ####[facility] LABCLIA [id number] [place] [address] Nucleated RBC (Bld) [#/Vol] 10*3/uL Normal <0.01 [facility] Comment on above: Order Comment: Speci men Type: BLOOD SPECIMENOrdering Facility: [facility] Address: [address] [place] [address] Performed By: #### 5 7021-8 ####[facility] LABCLIA [id number] [place] [address] Nucleated RBC/100 WBC (Bld) [Ratio] 0.0 /100 WBC Normal [facility] Comment on above: Order Comment: Speci men Type: BLOOD SPECIMENOrdering Facility: [facility] Address: [address] [place] [address] Performed By: #### 5 7021-8 ####[facility] LABCLIA [id number] [place] [address] Platelet mean volume (Bld) [Entitic vol] 10.8 fL Normal 9.0-12.7 [facility] Comment on above: Order Comment: Speci men Type: BLOOD SPECIMENOrdering Facility: [facility] Address: [address] [place], [place] [address] Performed By: #### 5 7021-8 ####[facility] LABCLIA [id number] [place] [address] Platelets (Bld) [#/Vol] 179 10*3/uL Normal 150-400 [facility] Comment on above: Order Comment: Speci men Type: BLOOD SPECIMENOrdering Facility: [facility] Address: [address] [place] [address] Performed By: #### 5 7021-8 ####[facility] LABIA [id number] [place] [address] RBC (Bld) [#/Vol] 4.52 10*6/uL Normal 3.90-5.20 [facility] Comment on above: Order Comment: Speci men Type: BLOOD SPECIMENOrdering Facility: [facility] Address: [address] [place] [address] Performed By: #### 5 7021-8 ####[facility] LABIA [id number] [place] [address] WBC (Bld) [#/Vol] 9.83 10*3/uL Normal 3.70-11.00 [facility] Comment on above: Order Comment: Speci men Type: BLOOD SPECIMENOrdering Facility: [facility] Address: [address] [place] [address] Performed By: #### 5 7021-8 ####[facility] LABIA [id number] [place] [address] CNOVSPon 11-02-2022 CNOVSP Normal [facility] CNPNon 11-02-2022 CNPN Normal [facility] Comprehensive metabolic 2000 panelon 11-02-2022 Albumin [Mass/Vol] 4.1 g/dL Normal 3.9-4.9 [facility] Comment on above: Order Comment: Speci men Type: BLOOD SPECIMENOrdering Facility: [facility] Address: [address] [place] [address] Performed By: #### 2 4323-8 ####[facility] LABCLIA [id number] [place] [address] ALP [Catalytic activity/Vol] 47 U/L Normal 34-123 [facility] Comment on above: Order Comment: Speci men Type: BLOOD SPECIMENOrdering Facility: [facility] Address: [address] [place] [address] Performed By: #### 2 4323-8 ####[facility] LABCLIA [id number] [place] [address] ALT [Catalytic activity/Vol] 13 U/L Normal 7-38 [facility] Comment on above: Order Comment: Speci men Type: BLOOD SPECIMENOrdering Facility: [facility] Address: [address] [place] [address] Performed By: #### 2 4323-8 ####[facility] LABCLIA [id number] [place] [address] Anion gap [Moles/Vol] 6 mmol/L Low 9-18 [facility] Comment on above: Order Comment: Speci men Type: BLOOD SPECIMENOrdering Facility: [facility] Address: [address] [place] [address] Performed By: #### 2 4323-8 ####[facility] LABCLIA [id number] [place] [address] AST [Catalytic activity/Vol] 9 U/L Low 13-35 [facility] Comment on above: Order Comment: Speci men Type: BLOOD SPECIMENOrdering Facility: [facility] Address: [address] [address] Performed By: #### 2 4323-8 ####[facility] LABCLIA [id number] [place] [address] Bilirubin [Mass/Vol] 0.6 mg/dL Normal 0.2-1.3 [facility] Comment on above: Order Comment: Speci men Type: BLOOD SPECIMENOrdering Facility: [facility] Address: [address] [address] Performed By: #### 2 4323-8 ####[facility] LABCLIA [id number] [place] [address] Calcium [Mass/Vol] 9.2 mg/dL Normal 8.5-10.2 [facility] Comment on above: Order Comment: Speci men Type: BLOOD SPECIMENOrdering Facility: [facility] Address: [address] [place] [address] Performed By: #### 2 4323-8 ####[facility] LABCLIA [id number] [place] [address] Chloride [Moles/Vol] 101 mmol/L Normal 97-105 [facility] Comment on above: Order Comment: Speci men Type: BLOOD SPECIMENOrdering Facility: [facility] Address: [address] [place] [address] Performed By: #### 2 4323-8 ####[facility] LABCLIA [id number] [place] [address] CO2 [Moles/Vol] 28 mmol/L Normal 22-30 [facility] Comment on above: Order Comment: Speci men Type: BLOOD SPECIMENOrdering Facility: [facility] Address: [address] [place] [address] Performed By: #### 2 4323-8 ####[facility] LABCLIA [id number] [place] [address] Creatinine [Mass/Vol] 0.75 mg/dL Normal 0.58-0.96 [facility] Comment on above: Order Comment: Kurt barraza Type: BLOOD SPECIMENOrdering Facility: [facility] Address: [address] [place] [id number] Performed By: #### 2 4323-8 ####[facility] LABCLIA [id number] [place] [address] ESTIMATED GLOMERULAR FILTRATION RATE 81 mL/min/1.73m??? Normal >=60 [facility] Comment on above: Order Comment: Kurt barraza Type: BLOOD SPECIMENOrdering Facility: [facility] Address: [address] [place] [address] Result Comment: Kim mated Glomerular Filtration Rate [...] actual GFR. Performed By: #### 2 4323-8 ####[facility] LABIA [id number] [place] [address] Glucose [Mass/Vol] 117 mg/dL High 74-99 [facility] Comment on above: Order Comment: Kurt barraza Type: BLOOD SPECIMENOrdering Facility: [facility] Address: [address] [place] [address] Result Comment: The [place] [employer] Association (ADA) provides guidance for cutoff [...] Standards of Medical Care in Diabetes 2016, [place] [employer]. Diabetes Care. 2016.39(Suppl 1). Performed By: #### 2 4323-8 ####[facility] LABCLIA [id number] [place] [address] Potassium [Moles/Vol] 4.1 mmol/L Normal 3.7-5.1 [facility] Comment on above: Order Comment: Speci men Type: BLOOD SPECIMENOrdering Facility: [facility] Address: [address] [address] Performed By: #### 2 4323-8 ####[facility] LABCLIA [id number] [place] [address] Protein [Mass/Vol] 6.2 g/dL Low 6.3-8.0 [facility] Comment on above: Order Comment: Speci men Type: BLOOD SPECIMENOrdering Facility: [facility] Address: [address] [address] Performed By: #### 2 4323-8 ####[facility] LABCLIA [id number] [place] [address] Sodium [Moles/Vol] 135 mmol/L Low 136-144 [facility] Comment on above: Order Comment: Speci men Type: BLOOD SPECIMENOrdering Facility: [facility] Address: [address] [address] Performed By: #### 2 4323-8 ####[facility] LABCLIA [id number] [place] [address] Urea nitrogen [Mass/Vol] 27 mg/dL High 7-21 [facility] Comment on above: Order Comment: Speci men Type: BLOOD SPECIMENOrdering Facility: [facility] Address: [address] [address] Performed By: #### 2 4323-8 ####[facility] LABCLIA [id number] [place] [address] CNPNon 10-27-2022 CNPN Normal [facility] CNOVon 10-24-2022 CNOV Normal [facility] CNPNon 10-24-2022 CNPN Normal [facility] CBC W Auto Differential pane l (Bld)on 10-20-2022 Basophils (Bld) [#/Vol] 10*3/uL Normal <0.11 [facility] Comment on above: Order Comment: Speci men Type: BLOOD SPECIMENOrdering Facility: [facility] Address: [address] [address] Performed By: #### 5 7021-8 ####[facility] LABCLIA [id number] [place] [address] Basophils/100 WBC (Bld) 0.1 % Normal [facility] Comment on above: Order Comment: Speci men Type: BLOOD SPECIMENOrdering Facility: [facility] Address: [address] [place] [address] Performed By: #### 5 7021-8 ####[facility] LABCLIA [id number] [place] [address] Differential cell count method Nom (Bld) Auto Normal [facility] Comment on above: Order Comment: Speci men Type: BLOOD SPECIMENOrdering Facility: [facility] Address: [address] [place] [address] Performed By: #### 5 7021-8 ####[facility] LABCLIA [id number] [place] [address] Eosinophils (Bld) [#/Vol] 10*3/uL Normal <0.46 [facility] Comment on above: Order Comment: Speci men Type: BLOOD SPECIMENOrdering Facility: [facility] Address: [address] [place] [address] Performed By: #### 5 7021-8 ####[facility] LABCLIA [id number] [place] [address] Eosinophils/100 WBC (Bld) 0.0 % Normal [facility] Comment on above: Order Comment: Speci men Type: BLOOD SPECIMENOrdering Facility: [facility] Address: [address] [address] Performed By: #### 5 7021-8 ####[facility] LABCLIA [id number] [place] [address] Erythrocyte distribution width (RBC) [Ratio] 13.6 % Normal 11.5-15.0 [facility] Comment on above: Order Comment: Speci men Type: BLOOD SPECIMENOrdering Facility: [facility] Address: [address] [place] [address] Performed By: #### 5 7021-8 ####[facility] LABCLIA [id number] [place] [address] Hematocrit (Bld) [Volume fraction] 39.9 % Normal 36.0-46.0 [facility] Comment on above: Order Comment: Speci men Type: BLOOD SPECIMENOrdering Facility: [facility] Address: [address] [address] Performed By: #### 5 7021-8 ####[facility] LABIA [id number] [place] [address] Hemoglobin (Bld) [Mass/Vol] 13.1 g/dL Normal 11.5-15.5 [facility] Comment on above: Order Comment: Speci men Type: BLOOD SPECIMENOrdering Facility: [facility] Address: [address] [address] Performed By: #### 5 7021-8 ####[facility] LABIA [id number] [place] [address] Immature granulocytes (Bld) [#/Vol] 0.13 10*3/uL High <0.10 [facility] Comment on above: Order Comment: Speci men Type: BLOOD SPECIMENOrdering Facility: [facility] Address: [address] [place] [address] Performed By: #### 5 7021-8 ####[facility] LABCLIA [id number] [place] [address] Immature granulocytes/100 WBC (Bld) 1.4 % Normal [facility] Comment on above: Order Comment: Speci men Type: BLOOD SPECIMENOrdering Facility: [facility] Address: [address] [place] [address] Performed By: #### 5 7021-8 ####[facility] LABCLIA [id number] [place] [address] Lymphocytes (Bld) [#/Vol] 0.41 10*3/uL Low 1.00-4.00 [facility] Comment on above: Order Comment: Speci men Type: BLOOD SPECIMENOrdering Facility: [facility] Address: [address] [place] [address] Performed By: #### 5 7021-8 ####[facility] LABCLIA [id number] [place] [address] Lymphocytes/100 WBC (Bld) 4.4 % Normal [facility] Comment on above: Order Comment: Speci men Type: BLOOD SPECIMENOrdering Facility: [facility] Address: [address] [place] [address] Performed By: #### 5 7021-8 ####[facility] LABCLIA [id number] [place] [address] MCH (RBC) [Entitic mass] 30.6 pg Normal 26.0-34.0 [facility] Comment on above: Order Comment: Speci men Type: BLOOD SPECIMENOrdering Facility: [facility] Address: [address] [place] [address] Performed By: #### 5 7021-8 ####[facility] LABCLIA [id number] [place] [address] MCHC (RBC) [Mass/Vol] 32.8 g/dL Normal 30.5-36.0 [facility] Comment on above: Order Comment: Speci men Type: BLOOD SPECIMENOrdering Facility: [facility] Address: [address] [place] [address] Performed By: #### 5 7021-8 ####[facility] LABCLIA [id number] [place] [address] MCV (RBC) [Entitic vol] 93.2 fL Normal 80.0-100.0 [facility] Comment on above: Order Comment: Speci men Type: BLOOD SPECIMENOrdering Facility: [facility] Address: [address] [place] [address] Performed By: #### 5 7021-8 ####[facility] LABCLIA [id number] [place] [address] Monocytes (Bld) [#/Vol] 0.75 10*3/uL Normal <0.87 [facility] Comment on above: Order Comment: Speci men Type: BLOOD SPECIMENOrdering Facility: [facility] Address: [address] [address] Performed By: #### 5 7021-8 ####[facility] LABCLIA [id number] [place] [address] Monocytes/100 WBC (Bld) 8.0 % Normal [facility] Comment on above: Order Comment: Speci men Type: BLOOD SPECIMENOrdering Facility: [facility] Address: [address] [place] [address] Performed By: #### 5 7021-8 ####[facility] LABCLIA [id number] [place] [address] Neutrophils (Bld) [#/Vol] 8.02 10*3/uL High 1.45-7.50 [facility] Comment on above: Order Comment: Speci men Type: BLOOD SPECIMENOrdering Facility: [facility] Address: [address] [place] [address] Performed By: #### 5 7021-8 ####[facility] LABCLIA [id number] [place] [address] Neutrophils/100 WBC (Bld) 86.1 % Normal [facility] Comment on above: Order Comment: Speci men Type: BLOOD SPECIMENOrdering Facility: [facility] Address: [address] [place] [address] Performed By: #### 5 7021-8 ####[facility] LABCLIA [id number] [place] [address] Nucleated RBC (Bld) [#/Vol] 10*3/uL Normal <0.01 [facility] Comment on above: Order Comment: Speci men Type: BLOOD SPECIMENOrdering Facility: [facility] Address: [address] [place] [address] Performed By: #### 5 7021-8 ####[facility] LABCLIA [id number] [place] [address] Nucleated RBC/100 WBC (Bld) [Ratio] 0.0 /100 WBC Normal [facility] Comment on above: Order Comment: Speci men Type: BLOOD SPECIMENOrdering Facility: [facility] Address: [address] [place] [address] Performed By: #### 5 7021-8 ####[facility] LABCLIA [id number] [place] [address] Platelet mean volume (Bld) [Entitic vol] 10.6 fL Normal 9.0-12.7 [facility] Comment on above: Order Comment: Speci men Type: BLOOD SPECIMENOrdering Facility: [facility] Address: [address] [place] [address] Performed By: #### 5 7021-8 ####[facility] LABCLIA [id number] [place] [address] Platelets (Bld) [#/Vol] 270 10*3/uL Normal 150-400 [facility] Comment on above: Order Comment: Speci men Type: BLOOD SPECIMENOrdering Facility: [facility] Address: [address] [address] Performed By: #### 5 7021-8 ####[facility] LABIA [id number] [place] [address] RBC (Bld) [#/Vol] 4.28 10*6/uL Normal 3.90-5.20 [facility] Comment on above: Order Comment: Speci men Type: BLOOD SPECIMENOrdering Facility: [facility] Address: [address] [place] [address] Performed By: #### 5 7021-8 ####[facility] LABIA [id number] [place] [address] WBC (Bld) [#/Vol] 9.32 10*3/uL Normal 3.70-11.00 [facility] Comment on above: Order Comment: Speci men Type: BLOOD SPECIMENOrdering Facility: [facility] Address: [address] [place] [address] Performed By: #### 5 7021-8 ####[facility] LABIA [id number] [place] [address] CNOVSPon 10-20-2022 CNOVSP Normal [facility] Comprehensive metabolic 2000 panelon 10-20-2022 Albumin [Mass/Vol] 4.2 g/dL Normal 3.9-4.9 [facility] Comment on above: Order Comment: Speci men Type: BLOOD SPECIMENOrdering Facility: [facility] Address: [address] [place] [address] Performed By: #### 2 4323-8 ####[facility] LABIA [id number] [place] [address] ALP [Catalytic activity/Vol] 52 U/L Normal 34-123 [facility] Comment on above: Order Comment: Speci men Type: BLOOD SPECIMENOrdering Facility: [facility] Address: [address] [place] [address] Performed By: #### 2 4323-8 ####[facility] LABCLIA [id number] [place] [address] ALT [Catalytic activity/Vol] 9 U/L Normal 7-38 [facility] Comment on above: Order Comment: Speci men Type: BLOOD SPECIMENOrdering Facility: [facility] Address: [address] [place] [address] Performed By: #### 2 4323-8 ####[facility] LABCLIA [id number] [place] [address] Anion gap [Moles/Vol] 11 mmol/L Normal 9-18 [facility] Comment on above: Order Comment: Speci men Type: BLOOD SPECIMENOrdering Facility: [facility] Address: [address] [place] [address] Performed By: #### 2 4323-8 ####[facility] LABCLIA [id number] [place] [address] AST [Catalytic activity/Vol] 10 U/L Low 13-35 [facility] Comment on above: Order Comment: Speci men Type: BLOOD SPECIMENOrdering Facility: [facility] Address: [address] [place] [address] Performed By: #### 2 4323-8 ####[facility] LABCLIA [id number] [place] [address] Bilirubin [Mass/Vol] 0.5 mg/dL Normal 0.2-1.3 [facility] Comment on above: Order Comment: Speci men Type: BLOOD SPECIMENOrdering Facility: [facility] Address: [address] [place] [address] Performed By: #### 2 4323-8 ####[facility] LABCLIA [id number] [place] [address] Calcium [Mass/Vol] 9.1 mg/dL Normal 8.5-10.2 [facility] Comment on above: Order Comment: Speci men Type: BLOOD SPECIMENOrdering Facility: [facility] Address: [address] [place] [address] Performed By: #### 2 4323-8 ####[facility] LABCLIA [id number] [place] [address] Chloride [Moles/Vol] 103 mmol/L Normal 97-105 [facility] Comment on above: Order Comment: Speci men Type: BLOOD SPECIMENOrdering Facility: [facility] Address: [address] [place] [address] Performed By: #### 2 4323-8 ####[facility] LABCLIA [id number] [place] [address] CO2 [Moles/Vol] 26 mmol/L Normal 22-30 [facility] Comment on above: Order Comment: Speci men Type: BLOOD SPECIMENOrdering Facility: [facility] Address: [address] [place] [address] Performed By: #### 2 4323-8 ####[facility] LABCLIA [id number] [place] [address] Creatinine [Mass/Vol] 0.74 mg/dL Normal 0.58-0.96 [facility] Comment on above: Order Comment: Speci men Type: BLOOD SPECIMENOrdering Facility: [facility] Address: [address] [place] [address] Performed By: #### 2 4323-8 ####[facility] LABCLIA [id number] [place] [address] ESTIMATED GLOMERULAR FILTRATION RATE 82 mL/min/1.73m??? Normal >=60 [facility] Comment on above: Order Comment: Speci men Type: BLOOD SPECIMENOrdering Facility: [facility] Address: [address] [place] [address] Result Comment: Kim mated Glomerular Filtration Rate [...] actual GFR. Performed By: #### 2 4323-8 ####[facility] LABCLIA [id number] [place] [address] Glucose [Mass/Vol] 108 mg/dL High 74-99 [facility] Comment on above: Order Comment: Speci men Type: BLOOD SPECIMENOrdering Facility: [facility] Address: [address] [place] [id number] Result Comment: The [place] [employer] (ADA) provides guidance for cutoff [...] Standards of Medical Care in Diabetes 2016, [place] [employer]. Diabetes Care. 2016.39(Suppl 1). Performed By: #### 2 4323-8 ####[facility] LABCLIA [id number] [place] [address] Potassium [Moles/Vol] 4.4 mmol/L Normal 3.7-5.1 [facility] Comment on above: Order Comment: Speci men Type: BLOOD SPECIMENOrdering Facility: [facility] Address: [address] [place] [address] Performed By: #### 2 4323-8 ####[facility] LABCLIA [id number] [place] [address] Protein [Mass/Vol] 6.4 g/dL Normal 6.3-8.0 [facility] Comment on above: Order Comment: Speci men Type: BLOOD SPECIMENOrdering Facility: [facility] Address: [address] [address] Performed By: #### 2 4323-8 ####[facility] LABCLIA [id number] [place] [address] Sodium [Moles/Vol] 140 mmol/L Normal 136-144 [facility] Comment on above: Order Comment: Speci men Type: BLOOD SPECIMENOrdering Facility: [facility] Address: [address] [address] Performed By: #### 2 4323-8 ####[facility] LABCLIA [id number] [place] [address] Urea nitrogen [Mass/Vol] 19 mg/dL Normal 7-21 [facility] Comment on above: Order Comment: Speci men Type: BLOOD SPECIMENOrdering Facility: [facility] Address: [address] [address] Performed By: #### 2 4323-8 ####[facility] LABCLIA [id number] [place] [address] CNOVon 10-19-2022 CNOV Normal [facility] CNSWon 10-12-2022 CNSW Normal [facility] CNOVon 10-11-2022 CNOV Normal [facility] CBC W Auto Differential pane l (Bld)on 10-06-2022 Basophils (Bld) [#/Vol] 0.05 10*3/uL Normal <0.11 [facility] Comment on above: Order Comment: Speci men Type: BLOOD SPECIMENOrdering Facility: [facility] Address: [address] [address] Performed By: #### 5 7021-8 ####[facility] LABIA [id number] [place] [address] Basophils/100 WBC (Bld) 0.6 % Normal [facility] Comment on above: Order Comment: Speci men Type: BLOOD SPECIMENOrdering Facility: [facility] Address: [address] [address] Performed By: #### 5 7021-8 ####[facility] LABCLIA [id number] [place] [address] Differential cell count method Nom (Bld) Auto Normal [facility] Comment on above: Order Comment: Speci men Type: BLOOD SPECIMENOrdering Facility: [facility] Address: [address] [place] [address] Performed By: #### 5 7021-8 ####[facility] LABCLIA [id number] [place] [address] Eosinophils (Bld) [#/Vol] 0.09 10*3/uL Normal <0.46 [facility] Comment on above: Order Comment: Speci men Type: BLOOD SPECIMENOrdering Facility: [facility] Address: [address] [place] [address] Performed By: #### 5 7021-8 ####[facility] LABCLIA [id number] [place] [address] Eosinophils/100 WBC (Bld) 1.1 % Normal [facility] Comment on above: Order Comment: Speci men Type: BLOOD SPECIMENOrdering Facility: [facility] Address: [address] [place] [address] Performed By: #### 5 7021-8 ####[facility] LABCLIA [id number] [place] [address] Erythrocyte distribution width (RBC) [Ratio] 14.6 % Normal 11.5-15.0 [facility] Comment on above: Order Comment: Speci men Type: BLOOD SPECIMENOrdering Facility: [facility] Address: [address] [place] [address] Performed By: #### 5 7021-8 ####[facility] LABCLIA [id number] [place] [address] Hematocrit (Bld) [Volume fraction] 37.1 % Normal 36.0-46.0 [facility] Comment on above: Order Comment: Speci men Type: BLOOD SPECIMENOrdering Facility: [facility] Address: [address] [place] [address] Performed By: #### 5 7021-8 ####[facility] LABCLIA [id number] [place] [address] Hemoglobin (Bld) [Mass/Vol] 11.8 g/dL Normal 11.5-15.5 [facility] Comment on above: Order Comment: Speci men Type: BLOOD SPECIMENOrdering Facility: [facility] Address: [address] [place] [address] Performed By: #### 5 7021-8 ####[facility] LABCLIA [id number] [place] [address] Immature granulocytes (Bld) [#/Vol] 0.04 10*3/uL Normal <0.10 [facility] Comment on above: Order Comment: Speci men Type: BLOOD SPECIMENOrdering Facility: [facility] Address: [address] [place] [address] Performed By: #### 5 7021-8 ####[facility] LABIA [id number] [place] [address] Immature granulocytes/100 WBC (Bld) 0.5 % Normal [facility] Comment on above: Order Comment: Speci men Type: BLOOD SPECIMENOrdering Facility: [facility] Address: [address] [address] Performed By: #### 5 7021-8 ####[facility] LABIA [id number] [place] [address] Lymphocytes (Bld) [#/Vol] 0.70 10*3/uL Low 1.00-4.00 [facility] Comment on above: Order Comment: Speci men Type: BLOOD SPECIMENOrdering Facility: [facility] Address: [address] [place] [address] Performed By: #### 5 7021-8 ####[facility] LABCLIA [id number] [place] [address] Lymphocytes/100 WBC (Bld) 8.9 % Normal [facility] Comment on above: Order Comment: Speci men Type: BLOOD SPECIMENOrdering Facility: [facility] Address: [address] [place] [address] Performed By: #### 5 7021-8 ####[facility] LABCLIA [id number] [place] [address] MCH (RBC) [Entitic mass] 30.5 pg Normal 26.0-34.0 [facility] Comment on above: Order Comment: Speci men Type: BLOOD SPECIMENOrdering Facility: [facility] Address: [address] [place] [address] Performed By: #### 5 7021-8 ####[facility] LABIA [id number] [place] [address] MCHC (RBC) [Mass/Vol] 31.8 g/dL Normal 30.5-36.0 [facility] Comment on above: Order Comment: Speci men Type: BLOOD SPECIMENOrdering Facility: [facility] Address: [address] [place] [address] Performed By: #### 5 7021-8 ####[facility] LABCLIA [id number] [place] [address] MCV (RBC) [Entitic vol] 95.9 fL Normal 80.0-100.0 [facility] Comment on above: Order Comment: Speci men Type: BLOOD SPECIMENOrdering Facility: [facility] Address: [address] [place] [address] Performed By: #### 5 7021-8 ####[facility] LABIA [id number] [place] [address] Monocytes (Bld) [#/Vol] 0.59 10*3/uL Normal <0.87 [facility] Comment on above: Order Comment: Speci men Type: BLOOD SPECIMENOrdering Facility: [facility] Address: [address] [address] Performed By: #### 5 7021-8 ####[facility] LABCLIA [id number] [place] [address] Monocytes/100 WBC (Bld) 7.5 % Normal [facility] Comment on above: Order Comment: Speci men Type: BLOOD SPECIMENOrdering Facility: [facility] Address: [address] [address] Performed By: #### 5 7021-8 ####[facility] LABCLIA [id number] [place] [address] Neutrophils (Bld) [#/Vol] 6.37 10*3/uL Normal 1.45-7.50 [facility] Comment on above: Order Comment: Speci men Type: BLOOD SPECIMENOrdering Facility: [facility] Address: [address] [address] Performed By: #### 5 7021-8 ####[facility] LABIA [id number] [place] [address] Neutrophils/100 WBC (Bld) 81.4 % Normal [facility] Comment on above: Order Comment: Speci men Type: BLOOD SPECIMENOrdering Facility: [facility] Address: [address] [place] [address] Performed By: #### 5 7021-8 ####[facility] LABCLIA [id number] [place] [address] Nucleated RBC (Bld) [#/Vol] 10*3/uL Normal <0.01 [facility] Comment on above: Order Comment: Speci men Type: BLOOD SPECIMENOrdering Facility: [facility] Address: [address] [place] [address] Performed By: #### 5 7021-8 ####[facility] LABCLIA [id number] [place] [address] Nucleated RBC/100 WBC (Bld) [Ratio] 0.0 /100 WBC Normal [facility] Comment on above: Order Comment: Speci men Type: BLOOD SPECIMENOrdering Facility: [facility] Address: [address] [place] [address] Performed By: #### 5 7021-8 ####[facility] LABIA [id number] [place] [address] Platelet mean volume (Bld) [Entitic vol] 10.3 fL Normal 9.0-12.7 [facility] Comment on above: Order Comment: Speci men Type: BLOOD SPECIMENOrdering Facility: [facility] Address: [address] [place] [address] Performed By: #### 5 7021-8 ####[facility] LABIA [id number] [place] [address] Platelets (Bld) [#/Vol] 222 10*3/uL Normal 150-400 [facility] Comment on above: Order Comment: Speci men Type: BLOOD SPECIMENOrdering Facility: [facility] Address: [address] [place] [address] Performed By: #### 5 7021-8 ####[facility] LABIA [id number] [place] [address] RBC (Bld) [#/Vol] 3.87 10*6/uL Low 3.90-5.20 [facility] Comment on above: Order Comment: Speci men Type: BLOOD SPECIMENOrdering Facility: [facility] Address: [address] [place] [address] Performed By: #### 5 7021-8 ####[facility] LABIA [id number] [place] [address] WBC (Bld) [#/Vol] 7.84 10*3/uL Normal 3.70-11.00 [facility] Comment on above: Order Comment: Speci men Type: BLOOD SPECIMENOrdering Facility: [facility] Address: [address] [address] Performed By: #### 5 7021-8 ####[facility] LABCLIA [id number] [place] [address] CNOVSPon 10-06-2022 CNOVSP Normal [facility] metabolic 2000 panelon 10-06-2022 Albumin [Mass/Vol] 4.1 g/dL Normal 3.9-4.9 [facility] Comment on above: Order Comment: Speci men Type: BLOOD SPECIMENOrdering Facility: [facility] Address: [address] [address] Performed By: #### 2 4323-8 ####[facility] LABCLIA [id number] [place] [address] ALP [Catalytic activity/Vol] 51 U/L Normal 34-123 [facility] Comment on above: Order Comment: Speci men Type: BLOOD SPECIMENOrdering Facility: [facility] Address: [address] [address] Performed By: #### 2 4323-8 ####[facility] LABCLIA [id number] [place] [address] ALT [Catalytic activity/Vol] 8 U/L Normal 7-38 [facility] Comment on above: Order Comment: Speci men Type: BLOOD SPECIMENOrdering Facility: [facility] Address: [address] [address] Performed By: #### 2 4323-8 ####[facility] LABCLIA [id number] [place] [address] Anion gap [Moles/Vol] 12 mmol/L Normal 9-18 [facility] Comment on above: Order Comment: Speci men Type: BLOOD SPECIMENOrdering Facility: [facility] Address: [address] [address] Performed By: #### 2 4323-8 ####[facility] LABCLIA [id number] [place] [address] AST [Catalytic activity/Vol] 10 U/L Low 13-35 [facility] Comment on above: Order Comment: Speci men Type: BLOOD SPECIMENOrdering Facility: [facility] Address: [address] [place] [address] Performed By: #### 2 4323-8 ####[facility] LABCLIA [id number] [place] [address] Bilirubin [Mass/Vol] 0.4 mg/dL Normal 0.2-1.3 [facility] Comment on above: Order Comment: Speci men Type: BLOOD SPECIMENOrdering Facility: [facility] Address: [address] [place] [address] Performed By: #### 2 4323-8 ####[facility] LABCLIA [id number] [place] [address] Calcium [Mass/Vol] 9.4 mg/dL Normal 8.5-10.2 [facility] Comment on above: Order Comment: Speci men Type: BLOOD SPECIMENOrdering Facility: [facility] Address: [address] [place] [address] Performed By: #### 2 4323-8 ####[facility] LABCLIA [id number] [place] [address] Chloride [Moles/Vol] 105 mmol/L Normal 97-105 [facility] Comment on above: Order Comment: Speci men Type: BLOOD SPECIMENOrdering Facility: [facility] Address: [address] [place] [address] Performed By: #### 2 4323-8 ####[facility] LABCLIA [id number] [place] [address] CO2 [Moles/Vol] 27 mmol/L Normal 22-30 [facility] Comment on above: Order Comment: Speci men Type: BLOOD SPECIMENOrdering Facility: [facility] Address: [address] [address] Performed By: #### 2 4323-8 ####[facility] LABCLIA [id number] [place] [address] Creatinine [Mass/Vol] 0.76 mg/dL Normal 0.58-0.96 [facility] Comment on above: Order Comment: Speci men Type: BLOOD SPECIMENOrdering Facility: [facility] Address: [address] [address] Performed By: #### 2 4323-8 ####[facility] LABCLIA [id number] [place] [address] ESTIMATED GLOMERULAR FILTRATION RATE 80 mL/min/1.73m??? Normal >=60 [facility] Comment on above: Order Comment: Speci men Type: BLOOD SPECIMENOrdering Facility: [facility] Address: [address] [place] [address] Result Comment: Kim mated Glomerular Filtration Rate [...] actual GFR. Performed By: #### 2 4323-8 ####[facility] LABCLIA [id number] [place] [address] Glucose [Mass/Vol] 102 mg/dL High 74-99 [facility] Comment on above: Order Comment: Speci men Type: BLOOD SPECIMENOrdering Facility: [facility] Address: [address] [place] [address] Result Comment: The [place] Diabetes Association (ADA) provides guidance for cutoff [...] Standards of Medical Care in Diabetes 2016, [place] [employer]. Diabetes Care. 2016.39(Suppl 1). Performed By: #### 2 4323-8 ####[facility] LABCLIA [id number] [place] [address] Potassium [Moles/Vol] 3.6 mmol/L Low 3.7-5.1 [facility] Comment on above: Order Comment: Speci men Type: BLOOD SPECIMENOrdering Facility: [facility] Address: [address] [place] [address] Performed By: #### 2 4323-8 ####[facility] LABIA [id number] [place] [address] Protein [Mass/Vol] 6.2 g/dL Low 6.3-8.0 [facility] Comment on above: Order Comment: Speci men Type: BLOOD SPECIMENOrdering Facility: [facility] Address: [address] [place] [address] Performed By: #### 2 4323-8 ####[facility] LABCLIA [id number] [place] [address] Sodium [Moles/Vol] 144 mmol/L Normal 136-144 [facility] Comment on above: Order Comment: Speci men Type: BLOOD SPECIMENOrdering Facility: [facility] Address: [address] [place] [address] Performed By: #### 2 4323-8 ####[facility] LABIA [id number] [place] [address] Urea nitrogen [Mass/Vol] 13 mg/dL Normal 7-21 [facility] Comment on above: Order Comment: Speci men Type: BLOOD SPECIMENOrdering Facility: [facility] Address: [address] [address] Performed By: #### 2 4323-8 ####[facility] LABCLIA [id number] [place] [address] CNSWon 10-05-2022 CNSW Normal [facility] CNOVon 10-04-2022 CNOV Normal [facility] CNPNon 10-04-2022 CNPN Normal [facility] CT BRAIN WO IVCONon 10-04-19 CT [facility] CBC W Auto Differential pane l (Bld)on 09-27-2022 Basophils (Bld) [#/Vol] 0.07 10*3/uL Normal <0.11 [facility] Comment on above: Order Comment: Speci men Type: BLOOD SPECIMENOrdering Facility: [facility] Address: [address] [address] Performed By: #### 5 7021-8 ####[facility] LABCLIA [id number] [place] [address] Basophils/100 WBC (Bld) 0.8 % Normal [facility] Comment on above: Order Comment: Speci men Type: BLOOD SPECIMENOrdering Facility: [facility] Address: [address] [place] [address] Performed By: #### 5 7021-8 ####[facility] LABCLIA [id number] [place] [address] Differential cell count method Nom (Bld) Auto Normal [facility] Comment on above: Order Comment: Speci men Type: BLOOD SPECIMENOrdering Facility: [facility] Address: [address] [address] Performed By: #### 5 7021-8 ####[facility] LABCLIA [id number] [place] [address] Eosinophils (Bld) [#/Vol] 10*3/uL Normal <0.46 [facility] Comment on above: Order Comment: Speci men Type: BLOOD SPECIMENOrdering Facility: [facility] Address: [address] [place] [address] Performed By: #### 5 7021-8 ####[facility] LABCLIA [id number] [place] [address] Eosinophils/100 WBC (Bld) 0.2 % Normal [facility] Comment on above: Order Comment: Speci men Type: BLOOD SPECIMENOrdering Facility: [facility] Address: [address] [place] [address] Performed By: #### 5 7021-8 ####[facility] LABCLIA [id number] [place] [address] Erythrocyte distribution width (RBC) [Ratio] 14.9 % Normal 11.5-15.0 [facility] Comment on above: Order Comment: Speci men Type: BLOOD SPECIMENOrdering Facility: [facility] Address: [address] [place] [address] Performed By: #### 5 7021-8 ####[facility] LABCLIA [id number] [place] [address] Hematocrit (Bld) [Volume fraction] 38.9 % Normal 36.0-46.0 [facility] Comment on above: Order Comment: Speci men Type: BLOOD SPECIMENOrdering Facility: [facility] Address: [address] [place] [address] Performed By: #### 5 7021-8 ####[facility] LABCLIA [id number] [place] [address] Hemoglobin (Bld) [Mass/Vol] 12.6 g/dL Normal 11.5-15.5 [facility] Comment on above: Order Comment: Speci men Type: BLOOD SPECIMENOrdering Facility: [facility] Address: [address] [place] [address] Performed By: #### 5 7021-8 ####[facility] LABCLIA [id number] [place] [address] Immature granulocytes (Bld) [#/Vol] 0.09 10*3/uL Normal <0.10 [facility] Comment on above: Order Comment: Speci men Type: BLOOD SPECIMENOrdering Facility: [facility] Address: [address] [place] [address] Performed By: #### 5 7021-8 ####[facility] LABCLIA [id number] [place] [address] Immature granulocytes/100 WBC (Bld) 1.0 % Normal [facility] Comment on above: Order Comment: Speci men Type: BLOOD SPECIMENOrdering Facility: [facility] Address: [address] [place] [address] Performed By: #### 5 7021-8 ####[facility] LABCLIA [id number] [place] [address] Lymphocytes (Bld) [#/Vol] 1.25 10*3/uL Normal 1.00-4.00 [facility] Comment on above: Order Comment: Speci men Type: BLOOD SPECIMENOrdering Facility: [facility] Address: [address] [place] [address] Performed By: #### 5 7021-8 ####[facility] LABCLIA [id number] [place] [address] Lymphocytes/100 WBC (Bld) 13.8 % Normal [facility] Comment on above: Order Comment: Speci men Type: BLOOD SPECIMENOrdering Facility: [facility] Address: [address] [place] [address] Performed By: #### 5 7021-8 ####[facility] LABCLIA [id number] [place] [address] MCH (RBC) [Entitic mass] 30.8 pg Normal 26.0-34.0 [facility] Comment on above: Order Comment: Speci men Type: BLOOD SPECIMENOrdering Facility: [facility] Address: [address] [address] Performed By: #### 5 7021-8 ####[facility] LABCLIA [id number] [place] [address] MCHC (RBC) [Mass/Vol] 32.4 g/dL Normal 30.5-36.0 [facility] Comment on above: Order Comment: Speci men Type: BLOOD SPECIMENOrdering Facility: [facility] Address: [address] [address] Performed By: #### 5 7021-8 ####[facility] LABIA [id number] [place] [address] MCV (RBC) [Entitic vol] 95.1 fL Normal 80.0-100.0 [facility] Comment on above: Order Comment: Speci men Type: BLOOD SPECIMENOrdering Facility: [facility] Address: [address] [address] Performed By: #### 5 7021-8 ####[facility] LABIA [id number] [place] [address] Monocytes (Bld) [#/Vol] 0.63 10*3/uL Normal <0.87 [facility] Comment on above: Order Comment: Speci men Type: BLOOD SPECIMENOrdering Facility: [facility] Address: [address] [address] Performed By: #### 5 7021-8 ####[facility] LABCLIA [id number] [place] [address] Monocytes/100 WBC (Bld) 6.9 % Normal [facility] Comment on above: Order Comment: Speci men Type: BLOOD SPECIMENOrdering Facility: [facility] Address: [address] [place] [address] Performed By: #### 5 7021-8 ####[facility] LABIA [id number] [place] [address] Neutrophils (Bld) [#/Vol] 7.02 10*3/uL Normal 1.45-7.50 [facility] Comment on above: Order Comment: Speci men Type: BLOOD SPECIMENOrdering Facility: [facility] Address: [address] [place] [address] Performed By: #### 5 7021-8 ####[facility] LABCLIA [id number] [place] [address] Neutrophils/100 WBC (Bld) 77.3 % Normal [facility] Comment on above: Order Comment: Speci men Type: BLOOD SPECIMENOrdering Facility: [facility] Address: [address] [place] [address] Performed By: #### 5 7021-8 ####[facility] LABCLIA [id number] [place] [address] Nucleated RBC (Bld) [#/Vol] 10*3/uL Normal <0.01 [facility] Comment on above: Order Comment: Speci men Type: BLOOD SPECIMENOrdering Facility: [facility] Address: [address] [place] [address] Performed By: #### 5 7021-8 ####[facility] LABCLIA [id number] [place] [address] Nucleated RBC/100 WBC (Bld) [Ratio] 0.0 /100 WBC Normal [facility] Comment on above: Order Comment: Speci men Type: BLOOD SPECIMENOrdering Facility: [facility] Address: [address] [place] [address] Performed By: #### 5 7021-8 ####[facility] LABCLIA [id number] [place] [address] Platelet mean volume (Bld) [Entitic vol] 10.1 fL Normal 9.0-12.7 [facility] Comment on above: Order Comment: Speci men Type: BLOOD SPECIMENOrdering Facility: [facility] Address: [address] [place] [address] Performed By: #### 5 7021-8 ####[facility] LABCLIA [id number] [place] [address] Platelets (Bld) [#/Vol] 214 10*3/uL Normal 150-400 [facility] Comment on above: Order Comment: Speci men Type: BLOOD SPECIMENOrdering Facility: [facility] Address: [address] [place] [address] Performed By: #### 5 7021-8 ####[facility] LABCLIA [id number] [place] [address] RBC (Bld) [#/Vol] 4.09 10*6/uL Normal 3.90-5.20 [facility] Comment on above: Order Comment: Speci men Type: BLOOD SPECIMENOrdering Facility: [facility] Address: [address] [place] [address] Performed By: #### 5 7021-8 ####[facility] LABIA [id number] [place] [address] WBC (Bld) [#/Vol] 9.08 10*3/uL Normal 3.70-11.00 [facility] Comment on above: Order Comment: Speci men Type: BLOOD SPECIMENOrdering Facility: [facility] Address: [address] [place] [address] Performed By: #### 5 7021-8 ####[facility] LABIA [id number] [place] [address] CNOVon 09-27-2022 CNOV Normal [facility] CNOVSPon 09-27-2022 CNOVSP Normal [facility] CNPNon 09-27-2022 CNPN Normal [facility] Comprehensive metabolic 2000 panelon 09-27-2022 Albumin [Mass/Vol] 4.3 g/dL Normal 3.9-4.9 [facility] Comment on above: Order Comment: Speci men Type: BLOOD SPECIMENOrdering Facility: [facility] Address: [address] [address] Performed By: #### 2 4323-8 ####[facility] LABCLIA [id number] [place] [address] ALP [Catalytic activity/Vol] 58 U/L Normal 34-123 [facility] Comment on above: Order Comment: Speci men Type: BLOOD SPECIMENOrdering Facility: [facility] Address: [address] [address] Performed By: #### 2 4323-8 ####[facility] LABCLIA [id number] [place] [address] ALT [Catalytic activity/Vol] 9 U/L Normal 7-38 [facility] Comment on above: Order Comment: Speci men Type: BLOOD SPECIMENOrdering Facility: [facility] Address: [address] [place] [address] Performed By: #### 2 4323-8 ####[facility] LABCLIA [id number] [place] [address] Anion gap [Moles/Vol] 9 mmol/L Normal 9-18 [facility] Comment on above: Order Comment: Speci men Type: BLOOD SPECIMENOrdering Facility: [facility] Address: [address] [place] [address] Performed By: #### 2 4323-8 ####[facility] LABCLIA [id number] [place] [address] AST [Catalytic activity/Vol] 11 U/L Low 13-35 [facility] Comment on above: Order Comment: Speci men Type: BLOOD SPECIMENOrdering Facility: [facility] Address: [address] [place] [address] Performed By: #### 2 4323-8 ####[facility] LABCLIA [id number] [place] [address] Bilirubin [Mass/Vol] 0.4 mg/dL Normal 0.2-1.3 [facility] Comment on above: Order Comment: Speci men Type: BLOOD SPECIMENOrdering Facility: [facility] Address: [address] [address] Performed By: #### 2 4323-8 ####[facility] LABCLIA [id number] [place] [address] Calcium [Mass/Vol] 9.6 mg/dL Normal 8.5-10.2 [facility] Comment on above: Order Comment: Speci men Type: BLOOD SPECIMENOrdering Facility: [facility] Address: [address] [address] Performed By: #### 2 4323-8 ####[facility] LABCLIA [id number] [place] [address] Chloride [Moles/Vol] 103 mmol/L Normal 97-105 [facility] Comment on above: Order Comment: Speci men Type: BLOOD SPECIMENOrdering Facility: [facility] Address: [address] [address] Performed By: #### 2 4323-8 ####[facility] LABCLIA [id number] [place] [address] CO2 [Moles/Vol] 29 mmol/L Normal 22-30 [facility] Comment on above: Order Comment: Speci men Type: BLOOD SPECIMENOrdering Facility: [facility] Address: [address] [place] [address] Performed By: #### 2 4323-8 ####[facility] LABCLIA [id number] [place] [address] Creatinine [Mass/Vol] 0.70 mg/dL Normal 0.58-0.96 [facility] Comment on above: Order Comment: Speci men Type: BLOOD SPECIMENOrdering Facility: [facility] Address: [address] [place] [address] Performed By: #### 2 4323-8 ####[facility] LABCLIA [id number] [place] [address] ESTIMATED GLOMERULAR FILTRATION RATE 88 mL/min/1.73m??? Normal >=60 [facility] Comment on above: Order Comment: Kurt barraza Type: BLOOD SPECIMENOrdering Facility: [facility] Address: [address] [place] [address] Result Comment: Kim mated Glomerular Filtration Rate [...] actual GFR. Performed By: #### 2 4323-8 ####[facility] LABCLIA [id number] [place] [address] Glucose [Mass/Vol] 96 mg/dL Normal 74-99 [facility] Comment on above: Order Comment: Kurt barraza Type: BLOOD SPECIMENOrdering Facility: [facility] Address: [address] [place] [address] Result Comment: The [place] [employer] (ADA) provides guidance for cutoff [...] Standards of Medical Care in Diabetes 2016, [place] [employer]. Diabetes Care. 2016.39(Suppl 1). Performed By: #### 2 4323-8 ####[facility] LABCLIA [id number] [place] [address] Potassium [Moles/Vol] 3.7 mmol/L Normal 3.7-5.1 [facility] Comment on above: Order Comment: Speci men Type: BLOOD SPECIMENOrdering Facility: [facility] Address: [address] [address] Performed By: #### 2 4323-8 ####[facility] LABCLIA [id number] [place] [address] Protein [Mass/Vol] 6.5 g/dL Normal 6.3-8.0 [facility] Comment on above: Order Comment: Speci men Type: BLOOD SPECIMENOrdering Facility: [facility] Address: [address] [address] Performed By: #### 2 4323-8 ####[facility] LABCLIA [id number] [place] [address] Sodium [Moles/Vol] 141 mmol/L Normal 136-144 [facility] Comment on above: Order Comment: Speci men Type: BLOOD SPECIMENOrdering Facility: [facility] Address: [address] [place] [address] Performed By: #### 2 4323-8 ####[facility] LABCLIA [id number] [place] [address] Urea nitrogen [Mass/Vol] 15 mg/dL Normal 7-21 [facility] Comment on above: Order Comment: Speci men Type: BLOOD SPECIMENOrdering Facility: [facility] Address: [address] [place] [address] Performed By: #### 2 4323-8 ####[facility] LABIA [id number] [place] [address] CNPNon 09-26-2022 CNPN Normal [facility] CNOVon 09-20-2022 CNOV Normal [facility] CBC W Auto Differential pane l (Bld)on 09-19-2022 Basophils (Bld) [#/Vol] 10*3/uL Normal <0.11 [facility] Comment on above: Order Comment: Speci men Type: BLOOD SPECIMENOrdering Facility: [facility] Address: [address] [address] Performed By: #### 5 7021-8 ####[facility] LABCLIA [id number] [place] [address] Basophils/100 WBC (Bld) 0.2 % Normal [facility] Comment on above: Order Comment: Speci men Type: BLOOD SPECIMENOrdering Facility: [facility] Address: [address] [place] [address] Performed By: #### 5 7021-8 ####[facility] LABCLIA [id number] [place] [address] Differential cell count method Nom (Bld) Auto Normal [facility] Comment on above: Order Comment: Speci men Type: BLOOD SPECIMENOrdering Facility: [facility] Address: [address] [place] [address] Performed By: #### 5 7021-8 ####[facility] LABCLIA [id number] [place] [address] Eosinophils (Bld) [#/Vol] 10*3/uL Normal <0.46 [facility] Comment on above: Order Comment: Speci men Type: BLOOD SPECIMENOrdering Facility: [facility] Address: [address] [place] [address] Performed By: #### 5 7021-8 ####[facility] LABCLIA [id number] [place] [address] Eosinophils/100 WBC (Bld) 0.0 % Normal [facility] Comment on above: Order Comment: Speci men Type: BLOOD SPECIMENOrdering Facility: [facility] Address: [address] [place] [address] Performed By: #### 5 7021-8 ####[facility] LABCLIA [id number] [place] [address] Erythrocyte distribution width (RBC) [Ratio] 14.6 % Normal 11.5-15.0 [facility] Comment on above: Order Comment: Speci men Type: BLOOD SPECIMENOrdering Facility: [facility] Address: [address] [address] Performed By: #### 5 7021-8 ####[facility] LABCLIA [id number] [place] [address] Hematocrit (Bld) [Volume fraction] 38.1 % Normal 36.0-46.0 [facility] Comment on above: Order Comment: Speci men Type: BLOOD SPECIMENOrdering Facility: [facility] Address: [address] [place] [address] Performed By: #### 5 7021-8 ####[facility] LABCLIA [id number] [place] [address] Hemoglobin (Bld) [Mass/Vol] 12.5 g/dL Normal 11.5-15.5 [facility] Comment on above: Order Comment: Speci men Type: BLOOD SPECIMENOrdering Facility: [facility] Address: [address] [address] Performed By: #### 5 7021-8 ####[facility] LABCLIA [id number] [place] [address] Immature granulocytes (Bld) [#/Vol] 0.11 10*3/uL High <0.10 [facility] Comment on above: Order Comment: Speci men Type: BLOOD SPECIMENOrdering Facility: [facility] Address: [address] [place] [address] Performed By: #### 5 7021-8 ####[facility] LABCLIA [id number] [place] [address] Immature granulocytes/100 WBC (Bld) 1.2 % Normal [facility] Comment on above: Order Comment: Speci men Type: BLOOD SPECIMENOrdering Facility: [facility] Address: [address] [place] [address] Performed By: #### 5 7021-8 ####[facility] LABCLIA [id number] [place] [address] Lymphocytes (Bld) [#/Vol] 0.89 10*3/uL Low 1.00-4.00 [facility] Comment on above: Order Comment: Speci men Type: BLOOD SPECIMENOrdering Facility: [facility] Address: [address] [place] [address] Performed By: #### 5 7021-8 ####[facility] LABCLIA [id number] [place] [address] Lymphocytes/100 WBC (Bld) 9.4 % Normal [facility] Comment on above: Order Comment: Speci men Type: BLOOD SPECIMENOrdering Facility: [facility] Address: [address] [place] [address] Performed By: #### 5 7021-8 ####[facility] LABIA [id number] [place] [address] MCH (RBC) [Entitic mass] 30.7 pg Normal 26.0-34.0 [facility] Comment on above: Order Comment: Speci men Type: BLOOD SPECIMENOrdering Facility: [facility] Address: [address] [place] [address] Performed By: #### 5 7021-8 ####[facility] LABCLIA [id number] [place] [address] MCHC (RBC) [Mass/Vol] 32.8 g/dL Normal 30.5-36.0 [facility] Comment on above: Order Comment: Speci men Type: BLOOD SPECIMENOrdering Facility: [facility] Address: [address] [place] [address] Performed By: #### 5 7021-8 ####[facility] LABIA [id number] [place] [address] MCV (RBC) [Entitic vol] 93.6 fL Normal 80.0-100.0 [facility] Comment on above: Order Comment: Speci men Type: BLOOD SPECIMENOrdering Facility: [facility] Address: [address] [address] Performed By: #### 5 7021-8 ####[facility] LABCLIA [id number] [place] [address] Monocytes (Bld) [#/Vol] 0.50 10*3/uL Normal <0.87 [facility] Comment on above: Order Comment: Speci men Type: BLOOD SPECIMENOrdering Facility: [facility] Address: [address] [address] Performed By: #### 5 7021-8 ####[facility] LABCLIA [id number] [place] [address] Monocytes/100 WBC (Bld) 5.3 % Normal [facility] Comment on above: Order Comment: Speci men Type: BLOOD SPECIMENOrdering Facility: [facility] Address: [address] [place] [address] Performed By: #### 5 7021-8 ####[facility] LABCLIA [id number] [place] [address] Neutrophils (Bld) [#/Vol] 7.90 10*3/uL High 1.45-7.50 [facility] Comment on above: Order Comment: Speci men Type: BLOOD SPECIMENOrdering Facility: [facility] Address: [address] [place] [address] Performed By: #### 5 7021-8 ####[facility] LABCLIA [id number] [place] [address] Neutrophils/100 WBC (Bld) 83.9 % Normal [facility] Comment on above: Order Comment: Speci men Type: BLOOD SPECIMENOrdering Facility: [facility] Address: [address] [place] [address] Performed By: #### 5 7021-8 ####[facility] LABCLIA [id number] [place] [address] Nucleated RBC (Bld) [#/Vol] 10*3/uL Normal <0.01 [facility] Comment on above: Order Comment: Speci men Type: BLOOD SPECIMENOrdering Facility: [facility] Address: [address] [place] [address] Performed By: #### 5 7021-8 ####[facility] LABCLIA [id number] [place] [address] Nucleated RBC/100 WBC (Bld) [Ratio] 0.0 /100 WBC Normal [facility] Comment on above: Order Comment: Speci men Type: BLOOD SPECIMENOrdering Facility: [facility] Address: [address] [place] [address] Performed By: #### 5 7021-8 ####[facility] LABCLIA [id number] [place] [address] Platelet mean volume (Bld) [Entitic vol] 10.4 fL Normal 9.0-12.7 [facility] Comment on above: Order Comment: Speci men Type: BLOOD SPECIMENOrdering Facility: [facility] Address: [address] [place] [address] Performed By: #### 5 7021-8 ####[facility] LABCLIA [id number] [place] [address] Platelets (Bld) [#/Vol] 236 10*3/uL Normal 150-400 [facility] Comment on above: Order Comment: Speci men Type: BLOOD SPECIMENOrdering Facility: [facility] Address: [address] [place] [address] Performed By: #### 5 7021-8 ####[facility] LABIA [id number] [place] [address] RBC (Bld) [#/Vol] 4.07 10*6/uL Normal 3.90-5.20 [facility] Comment on above: Order Comment: Speci men Type: BLOOD SPECIMENOrdering Facility: [facility] Address: [address] [address] Performed By: #### 5 7021-8 ####[facility] LABCLIA [id number] [place] [address] WBC (Bld) [#/Vol] 9.42 10*3/uL Normal 3.70-11.00 [facility] Comment on above: Order Comment: Speci men Type: BLOOD SPECIMENOrdering Facility: [facility] Address: [address] [address] Performed By: #### 5 7021-8 ####[facility] LABIA [id number] [place] [address] CNOVSPon 09-19-2022 CNOVSP Normal [facility] CNPNon 09-19-2022 CNPN Normal [facility] CT BRAIN WO IVCONon 09-19-19 CT BRAIN WO IVCON Normal [facility] Comprehensive metabolic 2000 panelon 09-19-2022 Albumin [Mass/Vol] 4.3 g/dL Normal 3.9-4.9 [facility] Comment on above: Order Comment: Speci men Type: BLOOD SPECIMENOrdering Facility: [facility] Address: [address] [address] Performed By: #### 2 4323-8 ####[facility] LABCLIA [id number] [place] [address] ALP [Catalytic activity/Vol] 60 U/L Normal 34-123 [facility] Comment on above: Order Comment: Speci men Type: BLOOD SPECIMENOrdering Facility: [facility] Address: [address] [address] Performed By: #### 2 4323-8 ####[facility] LABCLIA [id number] [place] [address] ALT [Catalytic activity/Vol] 10 U/L Normal 7-38 [facility] Comment on above: Order Comment: Speci men Type: BLOOD SPECIMENOrdering Facility: [facility] Address: [address] [address] Performed By: #### 2 4323-8 ####[facility] LABCLIA [id number] [place] [address] Anion gap [Moles/Vol] 9 mmol/L Normal 9-18 [facility] Comment on above: Order Comment: Speci men Type: BLOOD SPECIMENOrdering Facility: [facility] Address: [address] [address] Performed By: #### 2 4323-8 ####[facility] LABCLIA [id number] [place] [address] AST [Catalytic activity/Vol] 11 U/L Low 13-35 [facility] Comment on above: Order Comment: Speci men Type: BLOOD SPECIMENOrdering Facility: [facility] Address: [address] [place] [address] Performed By: #### 2 4323-8 ####[facility] LABCLIA [id number] [place] [address] Bilirubin [Mass/Vol] 0.4 mg/dL Normal 0.2-1.3 [facility] Comment on above: Order Comment: Speci men Type: BLOOD SPECIMENOrdering Facility: [facility] Address: [address] [address] Performed By: #### 2 4323-8 ####[facility] LABCLIA [id number] [place] [address] Calcium [Mass/Vol] 9.7 mg/dL Normal 8.5-10.2 [facility] Comment on above: Order Comment: Speci men Type: BLOOD SPECIMENOrdering Facility: [facility] Address: [address] [place] [address] Performed By: #### 2 4323-8 ####[facility] LABCLIA [id number] [place] [address] Chloride [Moles/Vol] 103 mmol/L Normal 97-105 [facility] Comment on above: Order Comment: Speci men Type: BLOOD SPECIMENOrdering Facility: [facility] Address: [address] [place] [address] Performed By: #### 2 4323-8 ####[facility] LABCLIA [id number] [place] [address] CO2 [Moles/Vol] 28 mmol/L Normal 22-30 [facility] Comment on above: Order Comment: Speci men Type: BLOOD SPECIMENOrdering Facility: [facility] Address: [address] [place] [address] Performed By: #### 2 4323-8 ####[facility] LABCLIA [id number] [place] [address] Creatinine [Mass/Vol] 0.74 mg/dL Normal 0.58-0.96 [facility] Comment on above: Order Comment: Speci men Type: BLOOD SPECIMENOrdering Facility: [facility] Address: [address] [place] [address] Performed By: #### 2 4323-8 ####[facility] LABCLIA [id number] [place] [address] ESTIMATED GLOMERULAR FILTRATION RATE 82 mL/min/1.73m??? Normal >=60 [facility] Comment on above: Order Comment: Speci men Type: BLOOD SPECIMENOrdering Facility: [facility] Address: [address] [place] [address] Result Comment: Kim mated Glomerular Filtration Rate [...] actual GFR. Performed By: #### 2 4323-8 ####[facility] LABCLIA [id number] [place] [address] Glucose [Mass/Vol] 178 mg/dL High 74-99 [facility] Comment on above: Order Comment: Speci men Type: BLOOD SPECIMENOrdering Facility: [facility] Address: [address] [place] [address] Result Comment: The [place] [employer] (ADA) provides guidance for cutoff [...] Standards of Medical Care in Diabetes 2016, [place] [employer]. Diabetes Care. 2016.39(Suppl 1). Performed By: #### 2 4323-8 ####[facility] LABCLIA [id number] [place] [address] Potassium [Moles/Vol] 4.2 mmol/L Normal 3.7-5.1 [facility] Comment on above: Order Comment: Speci men Type: BLOOD SPECIMENOrdering Facility: [facility] Address: [address] [place] [address] Performed By: #### 2 4323-8 ####[facility] LABCLIA [id number] [place] [address] Protein [Mass/Vol] 6.4 g/dL Normal 6.3-8.0 [facility] Comment on above: Order Comment: Speci men Type: BLOOD SPECIMENOrdering Facility: [facility] Address: [address] [place] [address] Performed By: #### 2 4323-8 ####[facility] LABCLIA [id number] [place] [address] Sodium [Moles/Vol] 140 mmol/L Normal 136-144 [facility] Comment on above: Order Comment: Speci men Type: BLOOD SPECIMENOrdering Facility: [facility] Address: [address] [address] Performed By: #### 2 4323-8 ####[facility] LABCLIA [id number] [place] [address] Urea nitrogen [Mass/Vol] 20 mg/dL Normal 7- [facility] Comment on above: Order Comment: Speci men Type: BLOOD SPECIMENOrdering Facility: [facility] Address: [address] [address] Performed By: #### 2 4323-8 ####[facility] LABCLIA [id number] [place] [address] CNPNon 09-18-2022 CNPN Normal [facility] CNSWon 09-15-2022 CNSW Normal [facility] CNOVon 09-14-2022 CNOV Normal [facility] US LEG VEIN DVT VIVIENNE VAS LABo n 09-14-2022 US LEG VEIN DVT VIVIENNE VAS LAB Normal [facility] CNNURSEon 09-13-2022 CNNURSE Normal [facility] CNOVon 09-13-2022 CNOV Normal [facility] CNPNon 09-13-2022 CNPN Normal [facility] CNOVSPon 09-12-2022 CNOVSP Normal [facility] CBC W Auto Differential pane l (Bld)on 09-11-2022 Basophils (Bld) [#/Vol] <0.11 k/uL [facility] Basophils/100 WBC (Bld) 0.2 % C [facility] Differential cell count method Nom (Bld) Auto [facility] Eosinophils (Bld) [#/Vol] 0.08 10*3/uL <0.46 k/uL [facility] Eosinophils/100 WBC (Bld) 1.5 % [facility] Erythrocyte distribution width (RBC) [Ratio] 15.5 % High 11.5 - 15.0 % [facility] Hematocrit (Bld) [Volume fraction] 33.9 % Low 36.0 - 46.0 % [facility] Hemoglobin (Bld) [Mass/Vol] 10.9 g/dL Low 11.5 - 15.5 g/dL [facility] Immature granulocytes (Bld) [#/Vol] 0.09 10*3/uL <0.10 k/uL [facility] Immature granulocytes/100 WBC (Bld) 1.7 % [facility] Lymphocytes (Bld) [#/Vol] 0.89 10*3/uL Low 1.00 - 4.00 k/uL [facility] Lymphocytes/100 WBC (Bld) 17.1 % [facility] MCH (RBC) [Entitic mass] 30.6 pg 26.0 - 34.0 pg [facility] MCHC (RBC) [Mass/Vol] 32.2 g/dL 30.5 - 36.0 g/dL [facility] MCV (RBC) [Entitic vol] 95.2 fL 80.0 - 100.0 fL [facility] Monocytes (Bld) [#/Vol] 0.44 10*3/uL <0.87 k/uL [facility] Monocytes/100 WBC (Bld) 8.5 % [facility] Neutrophils (Bld) [#/Vol] 3.69 10*3/uL 1.45 - 7.50 k/uL [facility] Neutrophils/100 WBC (Bld) 71.0 % [facility] Nucleated RBC (Bld) [#/Vol] <0.01 k/uL [facility] Nucleated RBC/100 WBC (Bld) [Ratio] 0.0 /100 WBC [facility] Platelet mean volume (Bld) [Entitic vol] 10.8 fL 9.0 - 12.7 fL [facility] Platelets (Bld) [#/Vol] 183 10*3/uL 150 - 400 k/uL [facility] RBC (Bld) [#/Vol] 3.56 10*6/uL Low 3.90 - 5.20 m/uL [facility] WBC (Bld) [#/Vol] 5.20 10*3/uL 3.70 - 11.00 k/uL [facility] Basophils (Bld) [#/Vol] 10*3/uL Normal <0.11 [facility] Comment on above: Order Comment: Speci men Type: BLOOD SPECIMENOrdering Facility: [facility] Address: [address] [place] [address] Performed By: #### 5 7021-8 ####[facility] LABORATORYCLIA [id number] [address] [id number] [place] Basophils/100 WBC (Bld) 0.2 % Normal [facility] Comment on above: Order Comment: Speci men Type: BLOOD SPECIMENOrdering Facility: [facility] Address: [address] [place] [address] Performed By: #### 5 7021-8 ####[facility] LABORATORYCLIA [id number] [place] [address] [place] Differential cell count method Nom (Bld) Auto Normal [facility] Comment on above: Order Comment: Speci men Type: BLOOD SPECIMENOrdering Facility: [facility] Address: [address] [place] [address] Performed By: #### 5 7021-8 ####[facility] LABORATORYCLIA [id number] [place] [address] [place] Eosinophils (Bld) [#/Vol] 0.08 10*3/uL Normal <0.46 [facility] Comment on above: Order Comment: Speci men Type: BLOOD SPECIMENOrdering Facility: [facility] Address: [address] [place] [address] Performed By: #### 5 7021-8 ####[facility] LABORATORYCLIA [id number] [place] [address] [place] Eosinophils/100 WBC (Bld) 1.5 % Normal [facility] Comment on above: Order Comment: Speci men Type: BLOOD SPECIMENOrdering Facility: [facility] Address: [address] [place] [address] Performed By: #### 5 7021-8 ####[facility] LABORATORYCLIA [id number] [place] [address] [place] Erythrocyte distribution width (RBC) [Ratio] 15.5 % High 11.5-15.0 [facility] Comment on above: Order Comment: Speci men Type: BLOOD SPECIMENOrdering Facility: [facility] Address: [address] [place] [address] Performed By: #### 5 7021-8 ####[facility] LABORATORYCLIA [id number] [place] [address] [place] Hematocrit (Bld) [Volume fraction] 33.9 % Low 36.0-46.0 [facility] Comment on above: Order Comment: Speci men Type: BLOOD SPECIMENOrdering Facility: [facility] Address: [address] [place] [address] Performed By: #### 5 7021-8 ####[facility] LABORATORYCLIA [id number] [place] [address] [place] Hemoglobin (Bld) [Mass/Vol] 10.9 g/dL Low 11.5-15.5 [facility] Comment on above: Order Comment: Speci men Type: BLOOD SPECIMENOrdering Facility: [facility] Address: [address] [place] [address] Performed By: #### 5 7021-8 ####[facility] LABORATORYCLIA [id number] [place] [address] [place] Immature granulocytes (Bld) [#/Vol] 0.09 10*3/uL Normal <0.10 [facility] Comment on above: Order Comment: Speci men Type: BLOOD SPECIMENOrdering Facility: [facility] Address: [address] [place] [address] Performed By: #### 5 7021-8 ####[facility] LABORATORYCLIA [id number] [place] [address] [place] Immature granulocytes/100 WBC (Bld) 1.7 % Normal [facility] Comment on above: Order Comment: Speci men Type: BLOOD SPECIMENOrdering Facility: [facility] Address: [address] [place] [address] Performed By: #### 5 7021-8 ####[facility] LABORATORYCLIA [id number] [place] [address] [place] Lymphocytes (Bld) [#/Vol] 0.89 10*3/uL Low 1.00-4.00 [facility] Comment on above: Order Comment: Speci men Type: BLOOD SPECIMENOrdering Facility: [facility] Address: [address] [place] [address] Performed By: #### 5 7021-8 ####[facility] LABORATORYCLIA [id number] [place] [address] [place] Lymphocytes/100 WBC (Bld) 17.1 % Normal [facility] Comment on above: Order Comment: Speci men Type: BLOOD SPECIMENOrdering Facility: [facility] Address: [address] [place] [address] Performed By: #### 5 7021-8 ####[facility] LABORATORYCLIA [id number] [place] [address] [place] MCH (RBC) [Entitic mass] 30.6 pg Normal 26.0-34.0 [facility] Comment on above: Order Comment: Speci men Type: BLOOD SPECIMENOrdering Facility: [facility] Address: [address] [place] [address] Performed By: #### 5 7021-8 ####[facility] LABORATORYCLIA [id number] [place] [address] [place] MCHC (RBC) [Mass/Vol] 32.2 g/dL Normal 30.5-36.0 [facility] Comment on above: Order Comment: Speci men Type: BLOOD SPECIMENOrdering Facility: [facility] Address: [address] [place] [address] Performed By: #### 5 7021-8 ####[facility] LABORATORYCLIA [id number] [place] [id number] [place] MCV (RBC) [Entitic vol] 95.2 fL Normal 80.0-100.0 [facility] Comment on above: Order Comment: Speci men Type: BLOOD SPECIMENOrdering Facility: [facility] Address: [address] [place] [address] Performed By: #### 5 7021-8 ####[facility] LABORATORYCLIA [id number] [place] [address] [place] Monocytes (Bld) [#/Vol] 0.44 10*3/uL Normal <0.87 [facility] Comment on above: Order Comment: Speci men Type: BLOOD SPECIMENOrdering Facility: [facility] Address: [address] [place] [address] Performed By: #### 5 7021-8 ####[facility] LABORATORYCLIA [id number] [place] [address] [place] Monocytes/100 WBC (Bld) 8.5 % Normal [facility] Comment on above: Order Comment: Speci men Type: BLOOD SPECIMENOrdering Facility: [facility] Address: [address] [place] [address] Performed By: #### 5 7021-8 ####[facility] LABORATORYCLIA [id number] [place] [address] [place] Neutrophils (Bld) [#/Vol] 3.69 10*3/uL Normal 1.45-7.50 [facility] Comment on above: Order Comment: Speci men Type: BLOOD SPECIMENOrdering Facility: [facility] Address: [address] [place] [address] Performed By: #### 5 7021-8 ####[facility] LABORATORYCLIA [id number] [place] [address] [place] Neutrophils/100 WBC (Bld) 71.0 % Normal [facility] Comment on above: Order Comment: Speci men Type: BLOOD SPECIMENOrdering Facility: [facility] Address: [address] [place] [address] Performed By: #### 5 7021-8 ####[facility] LABORATORYCLIA [id number] [place] [address] [place] Nucleated RBC (Bld) [#/Vol] 10*3/uL Normal <0.01 [facility] Comment on above: Order Comment: Speci men Type: BLOOD SPECIMENOrdering Facility: [facility] Address: [address] [place] [address] Performed By: #### 5 7021-8 ####[facility] LABORATORYCLIA [id number] [place] [id number] [place] Nucleated RBC/100 WBC (Bld) [Ratio] 0.0 /100 WBC Normal [facility] Comment on above: Order Comment: Speci men Type: BLOOD SPECIMENOrdering Facility: [facility] Address: [address] [place] [address] Performed By: #### 5 7021-8 ####[facility] LABORATORYCLIA [id number] [place] [address] [place] Platelet mean volume (Bld) [Entitic vol] 10.8 fL Normal 9.0-12.7 [facility] Comment on above: Order Comment: Speci men Type: BLOOD SPECIMENOrdering Facility: [facility] Address: [address] [place] [address] Performed By: #### 5 7021-8 ####[facility] LABORATORYCLIA [id number] [place] [address] [place] Platelets (Bld) [#/Vol] 183 10*3/uL Normal 150-400 [facility] Comment on above: Order Comment: Speci men Type: BLOOD SPECIMENOrdering Facility: [facility] Address: [address] [place] [address] Performed By: #### 5 7021-8 ####[facility] LABORATORYCLIA [id number] [place] [id number] [place] RBC (Bld) [#/Vol] 3.56 10*6/uL Low 3.90-5.20 [facility] Comment on above: Order Comment: Speci men Type: BLOOD SPECIMENOrdering Facility: [facility] Address: [address] [place] [address] Performed By: #### 5 7021-8 ####[facility] LABORATORYCLIA [id number] [place] [id number] [place] WBC (Bld) [#/Vol] 5.20 10*3/uL Normal 3.70-11.00 [facility] Comment on above: Order Comment: Speci men Type: BLOOD SPECIMENOrdering Facility: [facility] Address: [address] [place] [address] Performed By: #### 5 7021-8 ####MICHAEL LABORATORYCLIA [id number] [address] Comprehensive metabolic 2000 panelon 09-11-2022 Albumin [Mass/Vol] 3.8 g/dL Low 3.9 - 4.9 g/dL [facility] ALP [Catalytic activity/Vol] 52 U/L 34 - 123 U/L [facility] ALT [Catalytic activity/Vol] 11 U/L 7 - 38 U/L [facility] Anion gap [Moles/Vol] 13 mmol/L 9 - 18 mmol/L [facility] AST [Catalytic activity/Vol] 13 U/L 13 - 35 U/L [facility] Bilirubin [Mass/Vol] 0.3 mg/dL 0.2 - 1 .3 mg/dL [facility] Calcium [Mass/Vol] 9.4 mg/dL 8.5 - 10. 2 mg/dL [facility] Chloride [Moles/Vol] 105 mmol/L 97 - 10 5 mmol/L [facility] CO2 [Moles/Vol] 26 mmol/L 22 - 30 mmol/L [facility] Creatinine [Mass/Vol] 0.64 mg/dL 0.58 - 0.96 mg/dL [facility] Estimated Glomerular Filtration Rate 90 mL/min/1.73m >=60 mL/min/1.7 3m [facility] Glucose [Mass/Vol] 93 mg/dL 74 - 99 mg/dL [facility] Potassium [Moles/Vol] 4.2 mmol/L 3.7 - 5.1 mmol/L [facility] Protein [Mass/Vol] 5.7 g/dL Low 6.3 - 8.0 g/dL [facility] Sodium [Moles/Vol] 144 mmol/L 136 - 144 mmol/L [facility] Urea nitrogen [Mass/Vol] 20 mg/dL 7 - 21 mg/dL [facility] Albumin [Mass/Vol] 3.8 g/dL Low 3.9-4.9 [facility] Comment on above: Order Comment: Speci men Type: BLOOD SPECIMENOrdering Facility: [facility] Address: [address] [place] [address] Performed By: #### 2 4323-8 ####MICHAEL LABORATORYCLIA [id number] [place] [address] [place] ALP [Catalytic activity/Vol] 52 U/L Normal 34-123 [facility] Comment on above: Order Comment: Speci men Type: BLOOD SPECIMENOrdering Facility: [facility] Address: [address] [place] [address] Performed By: #### 2 4323-8 ####MICHAEL LABORATORYCLIA [id number] [place] [id number] [place] ALT [Catalytic activity/Vol] 11 U/L Normal 7-38 [facility] Comment on above: Order Comment: Speci men Type: BLOOD SPECIMENOrdering Facility: [facility] Address: [address] [place] [address] Performed By: #### 2 4323-8 ####MICHAEL LABORATORYCLIA [id number] [place] [address] [place] Anion gap [Moles/Vol] 13 mmol/L Normal 9-18 [facility] Comment on above: Order Comment: Speci men Type: BLOOD SPECIMENOrdering Facility: [facility] Address: [address] [place] [address] Performed By: #### 2 4323-8 ####MICHAEL LABORATORYCLIA [id number] [place] [id number] [place] AST [Catalytic activity/Vol] 13 U/L Normal 13-35 [facility] Comment on above: Order Comment: Speci men Type: BLOOD SPECIMENOrdering Facility: [facility] Address: [address] [place] [address] Performed By: #### 2 4323-8 ####MICHAEL LABORATORYCLIA [id number] [place] [address] [place] Bilirubin [Mass/Vol] 0.3 mg/dL Normal 0.2-1.3 [facility] Comment on above: Order Comment: Speci men Type: BLOOD SPECIMENOrdering Facility: [facility] Address: [address] [place] [address] Performed By: #### 2 4323-8 ####MICHAEL LABORATORYCLIA [id number] [place] [id number] [place] Calcium [Mass/Vol] 9.4 mg/dL Normal 8.5-10.2 [facility] Comment on above: Order Comment: Speci men Type: BLOOD SPECIMENOrdering Facility: [facility] Address: [address] [place] [address] Performed By: #### 2 4323-8 ####MICHAEL LABORATORYCLIA [id number] [place] [address] [place] Chloride [Moles/Vol] 105 mmol/L Normal 97-105 [facility] Comment on above: Order Comment: Speci men Type: BLOOD SPECIMENOrdering Facility: [facility] Address: [address] [place] [address] Performed By: #### 2 4323-8 ####MICHAEL LABORATORYCLIA [id number] [place] [address] [place] CO2 [Moles/Vol] 26 mmol/L Normal 22-30 [facility] Comment on above: Order Comment: Speci men Type: BLOOD SPECIMENOrdering Facility: [facility] Address: [address] [place] [address] Performed By: #### 2 4323-8 ####MICHAEL LABORATORYCLIA [id number] [place] [id number] [place] Creatinine [Mass/Vol] 0.64 mg/dL Normal 0.58-0.96 [facility] Comment on above: Order Comment: Speci men Type: BLOOD SPECIMENOrdering Facility: [facility] Address: [address] [place] [address] Performed By: #### 2 4323-8 ####MICHAEL LABORATORYCLIA [id number] [place] [address] [place] ESTIMATED GLOMERULAR FILTRATION RATE 90 mL/min/1.73m??? Normal >=60 [facility] Comment on above: Order Comment: Speci men Type: BLOOD SPECIMENOrdering Facility: [facility] Address: [address] [place] [address] Result Comment: Kim mated Glomerular Filtration Rate [...] Performed By: #### 2 4323-8 ####MICHAEL LABORATORYCLIA [id number] [place] [address] [place] Glucose [Mass/Vol] 93 mg/dL Normal 74-99 [facility] Comment on above: Order Comment: Kurt barraza Type: BLOOD SPECIMENOrdering Facility: [facility] Address: [address] [place] [address] Result Comment: The [place] Diabetes [employer] (ADA) provides guidance for cutoff [...] Standards of Medical Care in Diabetes 2016, [place] [employer]. Diabetes Care. 2016.39(Suppl 1). Performed By: #### 2 4323-8 ####MICHAEL LABORATORYCLIA [id number] [place] [id number] [place] Potassium [Moles/Vol] 4.2 mmol/L Normal 3.7-5.1 [facility] Comment on above: Order Comment: Kurt chrisit Type: BLOOD SPECIMENOrdering Facility: [facility] Address: [address] [place] [address] Performed By: #### 2 4323-8 ####MICHAEL LABORATORYCLIA [id number] [place] [address] [place] Protein [Mass/Vol] 5.7 g/dL Low 6.3-8.0 [facility] Comment on above: Order Comment: Speci men Type: BLOOD SPECIMENOrdering Facility: [facility] Address: [address] [place] [address] Performed By: #### 2 4323-8 ####MICHAEL LABORATORYCLIA [id number] [place] [id number] [place] Sodium [Moles/Vol] 144 mmol/L Normal 136-144 [facility] Comment on above: Order Comment: Speci men Type: BLOOD SPECIMENOrdering Facility: [facility] Address: [address] [place] [address] Performed By: #### 2 4323-8 ####MICHAEL LABORATORYCLIA [id number] [place] [address] [place] Urea nitrogen [Mass/Vol] 20 mg/dL Normal 7-21 [facility] Comment on above: Order Comment: Speci men Type: BLOOD SPECIMENOrdering Facility: [facility] Address: [address] [place] [address] Performed By: #### 2 4323-8 ####MICHAEL LABORATORYCLIA [id number] [place] [id number] [place] CBC W Auto Differential pane l (Bld)on 09-07-2022 Basophils (Bld) [#/Vol] 0.03 10*3/uL <0.11 k/uL [facility] Basophils/100 WBC (Bld) 0.5 % [facility] Differential cell count method Nom (Bld) Auto [facility] Eosinophils (Bld) [#/Vol] 0.08 10*3/uL <0.46 k/uL [facility] Eosinophils/100 WBC (Bld) 1.3 % [facility] Erythrocyte distribution width (RBC) [Ratio] 15.4 % High 11.5 - 15.0 % [facility] Hematocrit (Bld) [Volume fraction] 32.7 % Low 36.0 - 46.0 % [facility] Hemoglobin (Bld) [Mass/Vol] 10.4 g/dL Low 11.5 - 15.5 g/dL [facility] Immature granulocytes (Bld) [#/Vol] 0.06 10*3/uL <0.10 k/uL [facility] Immature granulocytes/100 WBC (Bld) 0.9 % [facility] Lymphocytes (Bld) [#/Vol] 0.90 10*3/uL Low 1.00 - 4.00 k/uL [facility] Lymphocytes/100 WBC (Bld) 14.2 % [facility] MCH (RBC) [Entitic mass] 30.5 pg 26.0 - 34.0 pg [facility] MCHC (RBC) [Mass/Vol] 31.8 g/dL 30.5 - 36.0 g/dL [facility] MCV (RBC) [Entitic vol] 95.9 fL 80.0 - 100.0 fL [facility] Monocytes (Bld) [#/Vol] 0.59 10*3/uL <0.87 k/uL [facility] Monocytes/100 WBC (Bld) 9.3 % [facility] Neutrophils (Bld) [#/Vol] 4.67 10*3/uL 1.45 - 7.50 k/uL [facility] Neutrophils/100 WBC (Bld) 73.8 % [facility] Nucleated RBC (Bld) [#/Vol] <0.01 k/uL [facility] Nucleated RBC/100 WBC (Bld) [Ratio] 0.0 /100 WBC [facility] Platelet mean volume (Bld) [Entitic vol] 10.8 fL 9.0 - 12.7 fL [facility] Platelets (Bld) [#/Vol] 177 10*3/uL 150 - 400 k/uL [facility] RBC (Bld) [#/Vol] 3.41 10*6/uL Low 3.90 - 5.20 m/uL [facility] WBC (Bld) [#/Vol] 6.33 10*3/uL 3.70 - 11.00 k/uL [facility] Basophils (Bld) [#/Vol] 0.03 10*3/uL Normal <0.11 [facility] Comment on above: Order Comment: Speci men Type: BLOOD SPECIMENOrdering Facility: [facility] Address: [address] [place] [address] Performed By: #### 5 7021-8 ####MICHAEL LABORATORYCLIA [id number] [place] [address] [place] Basophils/100 WBC (Bld) 0.5 % Normal [facility] Comment on above: Order Comment: Speci men Type: BLOOD SPECIMENOrdering Facility: [facility] Address: [address] [place] [address] Performed By: #### 5 7021-8 ####MICHAEL LABORATORYCLIA [id number] [place] [address] [place] Differential cell count method Nom (Bld) Auto Normal [facility] Comment on above: Order Comment: Speci men Type: BLOOD SPECIMENOrdering Facility: [facility] Address: [address] [place] [address] Performed By: #### 5 7021-8 ####MICHAEL LABORATORYCLIA [id number] [place] [address] [place] Eosinophils (Bld) [#/Vol] 0.08 10*3/uL Normal <0.46 [facility] Comment on above: Order Comment: Speci men Type: BLOOD SPECIMENOrdering Facility: [facility] Address: [address] [place] [address] Performed By: #### 5 7021-8 ####MICHAEL LABORATORYCLIA [id number] [place] [address] [place] Eosinophils/100 WBC (Bld) 1.3 % Normal [facility] Comment on above: Order Comment: Speci men Type: BLOOD SPECIMENOrdering Facility: [facility] Address: [address] [place] [address] Performed By: #### 5 7021-8 ####MICHAEL LABORATORYCLIA [id number] [place] [address] [place] Erythrocyte distribution width (RBC) [Ratio] 15.4 % High 11.5-15.0 [facility] Comment on above: Order Comment: Speci men Type: BLOOD SPECIMENOrdering Facility: [facility] Address: [address] [place] [address] Performed By: #### 5 7021-8 ####MICHAEL LABORATORYCLIA [id number] [place] [address] [place] Hematocrit (Bld) [Volume fraction] 32.7 % Low 36.0-46.0 [facility] Comment on above: Order Comment: Speci men Type: BLOOD SPECIMENOrdering Facility: [facility] Address: [address] [place] [address] Performed By: #### 5 7021-8 ####MICHAEL LABORATORYCLIA [id number] [place] [address] [place] Hemoglobin (Bld) [Mass/Vol] 10.4 g/dL Low 11.5-15.5 [facility] Comment on above: Order Comment: Speci men Type: BLOOD SPECIMENOrdering Facility: [facility] Address: [address] [place] [address] Performed By: #### 5 7021-8 ####MICHAEL LABORATORYCLIA [id number] [place] [address] [place] Immature granulocytes (Bld) [#/Vol] 0.06 10*3/uL Normal <0.10 [facility] Comment on above: Order Comment: Speci men Type: BLOOD SPECIMENOrdering Facility: [facility] Address: [address] [place] [address] Performed By: #### 5 7021-8 ####MICHAEL LABORATORYCLIA [id number] [place] [address] [place] Immature granulocytes/100 WBC (Bld) 0.9 % Normal [facility] Comment on above: Order Comment: Speci men Type: BLOOD SPECIMENOrdering Facility: [facility] Address: [address] [place] [address] Performed By: #### 5 7021-8 ####MICHAEL LABORATORYCLIA [id number] [place] [address] [place] Lymphocytes (Bld) [#/Vol] 0.90 10*3/uL Low 1.00-4.00 [facility] Comment on above: Order Comment: Speci men Type: BLOOD SPECIMENOrdering Facility: [facility] Address: [address] [place] [address] Performed By: #### 5 7021-8 ####MICHAEL LABORATORYCLIA [id number] [place] [address] [place] Lymphocytes/100 WBC (Bld) 14.2 % Normal [facility] Comment on above: Order Comment: Speci men Type: BLOOD SPECIMENOrdering Facility: [facility] Address: [address] [place] [address] Performed By: #### 5 7021-8 ####MICHAEL LABORATORYCLIA [id number] [place] [address] [place] MCH (RBC) [Entitic mass] 30.5 pg Normal 26.0-34.0 [facility] Comment on above: Order Comment: Speci men Type: BLOOD SPECIMENOrdering Facility: [facility] Address: [address] [place] [address] Performed By: #### 5 7021-8 ####MICHAEL LABORATORYCLIA [id number] [place] [address] [place] MCHC (RBC) [Mass/Vol] 31.8 g/dL Normal 30.5-36.0 [facility] Comment on above: Order Comment: Speci men Type: BLOOD SPECIMENOrdering Facility: [facility] Address: [address] [place] [address] Performed By: #### 5 7021-8 ####MICHAEL LABORATORYCLIA [id number] [place] [address] [place] MCV (RBC) [Entitic vol] 95.9 fL Normal 80.0-100.0 [facility] Comment on above: Order Comment: Speci men Type: BLOOD SPECIMENOrdering Facility: [facility] Address: [address] [place] [address] Performed By: #### 5 7021-8 ####MICHAEL LABORATORYCLIA [id number] [place] [address] [place] Monocytes (Bld) [#/Vol] 0.59 10*3/uL Normal <0.87 [facility] Comment on above: Order Comment: Speci men Type: BLOOD SPECIMENOrdering Facility: [facility] Address: [address] [place] [address] Performed By: #### 5 7021-8 ####MICHAEL LABORATORYCLIA [id number] [place] [address] [place] Monocytes/100 WBC (Bld) 9.3 % Normal [facility] Comment on above: Order Comment: Speci men Type: BLOOD SPECIMENOrdering Facility: [facility] Address: [address] [place] [address] Performed By: #### 5 7021-8 ####MICHAEL LABORATORYCLIA [id number] [place] [address] [place] Neutrophils (Bld) [#/Vol] 4.67 10*3/uL Normal 1.45-7.50 [facility] Comment on above: Order Comment: Speci men Type: BLOOD SPECIMENOrdering Facility: [facility] Address: [address] [place] [address] Performed By: #### 5 7021-8 ####MICHAEL LABORATORYCLIA [id number] [place] [address] [place] Neutrophils/100 WBC (Bld) 73.8 % Normal [facility] Comment on above: Order Comment: Speci men Type: BLOOD SPECIMENOrdering Facility: [facility] Address: [address] [place] [address] Performed By: #### 5 7021-8 ####MICHAEL LABORATORYCLIA [id number] [place] [address] [place] Nucleated RBC (Bld) [#/Vol] 10*3/uL Normal <0.01 [facility] Comment on above: Order Comment: Speci men Type: BLOOD SPECIMENOrdering Facility: [facility] Address: [address] [place] [address] Performed By: #### 5 7021-8 ####MICHAEL LABORATORYCLIA [id number] [place] [id number] [place] Nucleated RBC/100 WBC (Bld) [Ratio] 0.0 /100 WBC Normal [facility] Comment on above: Order Comment: Speci men Type: BLOOD SPECIMENOrdering Facility: [facility] Address: [address] [place] [address] Performed By: #### 5 7021-8 ####MICHAEL LABORATORYCLIA [id number] [place] [address] [place] Platelet mean volume (Bld) [Entitic vol] 10.8 fL Normal 9.0-12.7 [facility] Comment on above: Order Comment: Speci men Type: BLOOD SPECIMENOrdering Facility: [facility] Address: [address] [place] [address] Performed By: #### 5 7021-8 ####MICHAEL LABORATORYCLIA [id number] [place] [address] [place] Platelets (Bld) [#/Vol] 177 10*3/uL Normal 150-400 [facility] Comment on above: Order Comment: Speci men Type: BLOOD SPECIMENOrdering Facility: [facility] Address: [address] [place] [address] Performed By: #### 5 7021-8 ####MICHAEL LABORATORYCLIA [id number] [place] [id number] [place] RBC (Bld) [#/Vol] 3.41 10*6/uL Low 3.90-5.20 [facility] Comment on above: Order Comment: Speci men Type: BLOOD SPECIMENOrdering Facility: [facility] Address: [address] [place] [address] Performed By: #### 5 7021-8 ####MICHAEL LABORATORYCLIA [id number] [place] [id number] [place] WBC (Bld) [#/Vol] 6.33 10*3/uL Normal 3.70-11.00 [facility] Comment on above: Order Comment: Speci men Type: BLOOD SPECIMENOrdering Facility: [facility] Address: [address] [place] [address] Performed By: #### 5 7021-8 ####MICHAEL LABORATORYCLIA [id number] [address] OF [facility] Comprehensive metabolic 2000 panelon 09-07-2022 Albumin [Mass/Vol] 3.7 g/dL Low 3.9 - 4.9 g/dL [facility] ALP [Catalytic activity/Vol] 47 U/L 34 - 123 U/L [facility] ALT [Catalytic activity/Vol] 13 U/L 7 - 38 U/L [facility] Anion gap [Moles/Vol] 9 mmol/L 9 - 18 mmol/L [facility] AST [Catalytic activity/Vol] 12 U/L Low 13 - 35 U/L [facility] Bilirubin [Mass/Vol] 0.3 mg/dL 0.2 - 1 .3 mg/dL [facility] Calcium [Mass/Vol] 8.9 mg/dL 8.5 - 10. 2 mg/dL [facility] Chloride [Moles/Vol] 105 mmol/L 97 - 10 5 mmol/L [facility] CO2 [Moles/Vol] 27 mmol/L 22 - 30 mmol/L [facility] Creatinine [Mass/Vol] 0.62 mg/dL 0.58 - 0.96 mg/dL [facility] Estimated Glomerular Filtration Rate 91 mL/min/1.73m >=60 mL/min/1.7 3m [facility] Glucose [Mass/Vol] 82 mg/dL 74 - 99 mg/dL [facility] Potassium [Moles/Vol] 4.2 mmol/L 3.7 - 5.1 mmol/L [facility] Protein [Mass/Vol] 5.6 g/dL Low 6.3 - 8.0 g/dL [facility] Sodium [Moles/Vol] 141 mmol/L 136 - 144 mmol/L [facility] Urea nitrogen [Mass/Vol] 26 mg/dL High 7 - 21 mg/dL [facility] Albumin [Mass/Vol] 3.7 g/dL Low 3.9-4.9 [facility] Comment on above: Order Comment: Speci men Type: BLOOD SPECIMENOrdering Facility: [facility] Address: [address] [place] [address] Performed By: #### 2 4323-8 ####MICHAEL LABORATORYCLIA [id number] [place] [address] [place] ALP [Catalytic activity/Vol] 47 U/L Normal 34-123 [facility] Comment on above: Order Comment: Speci men Type: BLOOD SPECIMENOrdering Facility: [facility] Address: [address] [place] [address] Performed By: #### 2 4323-8 ####MICHAEL LABORATORYCLIA [id number] [place] [address] [place] ALT [Catalytic activity/Vol] 13 U/L Normal 7-38 [facility] Comment on above: Order Comment: Speci men Type: BLOOD SPECIMENOrdering Facility: [facility] Address: [address] [place] [address] Performed By: #### 2 4323-8 ####MICHAEL LABORATORYCLIA [id number] [place] [id number] [place] Anion gap [Moles/Vol] 9 mmol/L Normal 9-18 [facility] Comment on above: Order Comment: Speci men Type: BLOOD SPECIMENOrdering Facility: [facility] Address: [address] [place] [address] Performed By: #### 2 4323-8 ####MICHAEL LABORATORYCLIA [id number] [place] [address] [place] AST [Catalytic activity/Vol] 12 U/L Low 13-35 [facility] Comment on above: Order Comment: Speci men Type: BLOOD SPECIMENOrdering Facility: [facility] Address: [address] [place] [address] Performed By: #### 2 4323-8 ####MICHAEL LABORATORYCLIA [id number] [place] [id number] [place] Bilirubin [Mass/Vol] 0.3 mg/dL Normal 0.2-1.3 [facility] Comment on above: Order Comment: Speci men Type: BLOOD SPECIMENOrdering Facility: [facility] Address: [address] [place] [address] Performed By: #### 2 4323-8 ####MICHAEL LABORATORYCLIA [id number] [place] [address] [place] Calcium [Mass/Vol] 8.9 mg/dL Normal 8.5-10.2 [facility] Comment on above: Order Comment: Speci men Type: BLOOD SPECIMENOrdering Facility: [facility] Address: [address] [place] [address] Performed By: #### 2 4323-8 ####MICHAEL LABORATORYCLIA [id number] [place] [address] [place] Chloride [Moles/Vol] 105 mmol/L Normal 97-105 [facility] Comment on above: Order Comment: Speci men Type: BLOOD SPECIMENOrdering Facility: [facility] Address: [address] [place] [address] Performed By: #### 2 4323-8 ####MICHAEL LABORATORYCLIA [id number] [place] [address] [place] CO2 [Moles/Vol] 27 mmol/L Normal 22-30 [facility] Comment on above: Order Comment: Speci men Type: BLOOD SPECIMENOrdering Facility: [facility] Address: [address] [place] [address] Performed By: #### 2 4323-8 ####MICHAEL LABORATORYCLIA [id number] [place] [id number] [place] Creatinine [Mass/Vol] 0.62 mg/dL Normal 0.58-0.96 [facility] Comment on above: Order Comment: Speci men Type: BLOOD SPECIMENOrdering Facility: [facility] Address: [address] [place] [address] Performed By: #### 2 4323-8 ####MICHAEL LABORATORYCLIA [id number] [place] [address] [place] ESTIMATED GLOMERULAR FILTRATION RATE 91 mL/min/1.73m??? Normal >=60 [facility] Comment on above: Order Comment: Kurt barraza Type: BLOOD SPECIMENOrdering Facility: [facility] Address: [address] [place] [address] Result Comment: Kim mated Glomerular Filtration Rate [...] Performed By: #### 2 4323-8 ####MICHAEL LABORATORYCLIA [id number] [place] [address] [place] Glucose [Mass/Vol] 82 mg/dL Normal 74-99 [facility] Comment on above: Order Comment: Kurt barraza Type: BLOOD SPECIMENOrdering Facility: [facility] Address: [address] [place] [address] Result Comment: The [place] [employer] (ADA) provides guidance for cutoff [...] Standards of Medical Care in Diabetes 2016, [place] [employer]. Diabetes Care. 2016.39(Suppl 1). Performed By: #### 2 4323-8 ####MICHAEL LABORATORYCLIA [id number] [place] [id number] [place] Potassium [Moles/Vol] 4.2 mmol/L Normal 3.7-5.1 [facility] Comment on above: Order Comment: Kurt barraza Type: BLOOD SPECIMENOrdering Facility: [facility] Address: [address] [place], [place] [address] Performed By: #### 2 4323-8 ####MICHAEL LABORATORYCLIA [id number] [place] [id number] [place] Protein [Mass/Vol] 5.6 g/dL Low 6.3-8.0 [facility] Comment on above: Order Comment: Speci men Type: BLOOD SPECIMENOrdering Facility: [facility] Address: [address] [place] [address] Performed By: #### 2 4323-8 ####MICHAEL LABORATORYCLIA [id number] [place] [address] [place] Sodium [Moles/Vol] 141 mmol/L Normal 136-144 [facility] Comment on above: Order Comment: Speci men Type: BLOOD SPECIMENOrdering Facility: [facility] Address: [address] [place] [address] Performed By: #### 2 4323-8 ####MICHAEL LABORATORYCLIA [id number] [place] [address] [place] Urea nitrogen [Mass/Vol] 26 mg/dL High 7-21 [facility] Comment on above: Order Comment: Speci men Type: BLOOD SPECIMENOrdering Facility: [facility] Address: [address] [place] [address] Performed By: #### 2 4323-8 ####MICHAEL LABORATORYCLIA [id number] [place] [address] [place] CBC W Auto Differential pane l (Bld)on 09-04-2022 Basophils (Bld) [#/Vol] <0.11 k/uL [facility] Basophils/100 WBC (Bld) 0.3 % [facility] Differential cell count method Nom (Bld) Auto [facility] Eosinophils (Bld) [#/Vol] 0.05 10*3/uL <0.46 k/uL [facility] Eosinophils/100 WBC (Bld) 0.7 % [facility] Erythrocyte distribution width (RBC) [Ratio] 15.0 % 11.5 - 15.0 % [facility] Hematocrit (Bld) [Volume fraction] 31.6 % Low 36.0 - 46.0 % [facility] Hemoglobin (Bld) [Mass/Vol] 10.4 g/dL Low 11.5 - 15.5 g/dL [facility] Immature granulocytes (Bld) [#/Vol] 0.07 10*3/uL <0.10 k/uL [facility] Immature granulocytes/100 WBC (Bld) 1.0 % [facility] Lymphocytes (Bld) [#/Vol] 0.95 10*3/uL Low 1.00 - 4.00 k/uL [facility] Lymphocytes/100 WBC (Bld) 14.1 % [facility] MCH (RBC) [Entitic mass] 30.8 pg 26.0 - 34.0 pg [facility] MCHC (RBC) [Mass/Vol] 32.9 g/dL 30.5 - 36.0 g/dL [facility] MCV (RBC) [Entitic vol] 93.5 fL 80.0 - 100.0 fL [facility] Monocytes (Bld) [#/Vol] 0.45 10*3/uL <0.87 k/uL [facility] Monocytes/100 WBC (Bld) 6.7 % [facility] Neutrophils (Bld) [#/Vol] 5.19 10*3/uL 1.45 - 7.50 k/uL [facility] Neutrophils/100 WBC (Bld) 77.2 % [facility] Nucleated RBC (Bld) [#/Vol] <0.01 k/uL [facility] Nucleated RBC/100 WBC (Bld) [Ratio] 0.0 /100 WBC [facility] Platelet mean volume (Bld) [Entitic vol] 10.7 fL 9.0 - 12.7 fL [facility] Platelets (Bld) [#/Vol] 174 10*3/uL 150 - 400 k/uL [facility] RBC (Bld) [#/Vol] 3.38 10*6/uL Low 3.90 - 5.20 m/uL [facility] WBC (Bld) [#/Vol] 6.73 10*3/uL 3.70 - 11.00 k/uL [facility] Basophils (Bld) [#/Vol] 10*3/uL Normal <0.11 [facility] Comment on above: Order Comment: Speci men Type: BLOOD SPECIMENOrdering Facility: [facility] Address: [address] [place] [address] Performed By: #### 5 7021-8 ####MICHAEL LABORATORYCLIA [id number] [place] [address] [place] Basophils/100 WBC (Bld) 0.3 % Normal [facility] Comment on above: Order Comment: Speci men Type: BLOOD SPECIMENOrdering Facility: [facility] Address: [address] [place] [address] Performed By: #### 5 7021-8 ####MICHAEL LABORATORYCLIA [id number] [place] [address] [place] Differential cell count method Nom (Bld) Auto Normal [facility] Comment on above: Order Comment: Speci men Type: BLOOD SPECIMENOrdering Facility: [facility] Address: [address] [place] [address] Performed By: #### 5 7021-8 ####MICHAEL LABORATORYCLIA [id number] [place] [address] [place] Eosinophils (Bld) [#/Vol] 0.05 10*3/uL Normal <0.46 [facility] Comment on above: Order Comment: Speci men Type: BLOOD SPECIMENOrdering Facility: [facility] Address: [address] [place] [address] Performed By: #### 5 7021-8 ####MICHAEL LABORATORYCLIA [id number] [place] [address] [place] Eosinophils/100 WBC (Bld) 0.7 % Normal [facility] Comment on above: Order Comment: Speci men Type: BLOOD SPECIMENOrdering Facility: [facility] Address: [address] [place] [address] Performed By: #### 5 7021-8 ####MICHAEL LABORATORYCLIA [id number] [place] [address] [place] Erythrocyte distribution width (RBC) [Ratio] 15.0 % Normal 11.5-15.0 [facility] Comment on above: Order Comment: Speci men Type: BLOOD SPECIMENOrdering Facility: [facility] Address: [address] [place] [address] Performed By: #### 5 7021-8 ####MICHAEL LABORATORYCLIA [id number] [place] [address] [place] Hematocrit (Bld) [Volume fraction] 31.6 % Low 36.0-46.0 [facility] Comment on above: Order Comment: Speci men Type: BLOOD SPECIMENOrdering Facility: [facility] Address: [address] [place] [address] Performed By: #### 5 7021-8 ####MICHAEL LABORATORYCLIA [id number] [place] [address] [place] Hemoglobin (Bld) [Mass/Vol] 10.4 g/dL Low 11.5-15.5 [facility] Comment on above: Order Comment: Speci men Type: BLOOD SPECIMENOrdering Facility: [facility] Address: [address] [place] [address] Performed By: #### 5 7021-8 ####MICHAEL LABORATORYCLIA [id number] [place] [address] [place] Immature granulocytes (Bld) [#/Vol] 0.07 10*3/uL Normal <0.10 [facility] Comment on above: Order Comment: Speci men Type: BLOOD SPECIMENOrdering Facility: [facility] Address: [address] [place] [address] Performed By: #### 5 7021-8 ####MICHAEL LABORATORYCLIA [id number] [place] [address] [place] Immature granulocytes/100 WBC (Bld) 1.0 % Normal [facility] Comment on above: Order Comment: Speci men Type: BLOOD SPECIMENOrdering Facility: [facility] Address: [address] [place] [address] Performed By: #### 5 7021-8 ####MICHAEL LABORATORYCLIA [id number] [place] [address] [place] Lymphocytes (Bld) [#/Vol] 0.95 10*3/uL Low 1.00-4.00 [facility] Comment on above: Order Comment: Speci men Type: BLOOD SPECIMENOrdering Facility: [facility] Address: [address] [place] [address] Performed By: #### 5 7021-8 ####MICHAEL LABORATORYCLIA [id number] [place] [address] [place] Lymphocytes/100 WBC (Bld) 14.1 % Normal [facility] Comment on above: Order Comment: Speci men Type: BLOOD SPECIMENOrdering Facility: [facility] Address: [address] [place] [address] Performed By: #### 5 7021-8 ####MICHAEL LABORATORYCLIA [id number] [place] [address] [place] MCH (RBC) [Entitic mass] 30.8 pg Normal 26.0-34.0 [facility] Comment on above: Order Comment: Speci men Type: BLOOD SPECIMENOrdering Facility: [facility] Address: [address] [place] [address] Performed By: #### 5 7021-8 ####MICHAEL LABORATORYCLIA [id number] [place] [address] [place] MCHC (RBC) [Mass/Vol] 32.9 g/dL Normal 30.5-36.0 [facility] Comment on above: Order Comment: Speci men Type: BLOOD SPECIMENOrdering Facility: [facility] Address: [address] [place] [address] Performed By: #### 5 7021-8 ####MICHAEL LABORATORYCLIA [id number] [place] [address] [place] MCV (RBC) [Entitic vol] 93.5 fL Normal 80.0-100.0 [facility] Comment on above: Order Comment: Speci men Type: BLOOD SPECIMENOrdering Facility: [facility] Address: [address] [place] [address] Performed By: #### 5 7021-8 ####MICHAEL LABORATORYCLIA [id number] [place] [id number] [place] Monocytes (Bld) [#/Vol] 0.45 10*3/uL Normal <0.87 [facility] Comment on above: Order Comment: Speci men Type: BLOOD SPECIMENOrdering Facility: [facility] Address: [address] [place] [address] Performed By: #### 5 7021-8 ####MICHAEL LABORATORYCLIA [id number] [place] [address] [place] Monocytes/100 WBC (Bld) 6.7 % Normal [facility] Comment on above: Order Comment: Speci men Type: BLOOD SPECIMENOrdering Facility: [facility] Address: [address] [place] [address] Performed By: #### 5 7021-8 ####MICHAEL LABORATORYCLIA [id number] [place] [address] [place] Neutrophils (Bld) [#/Vol] 5.19 10*3/uL Normal 1.45-7.50 [facility] Comment on above: Order Comment: Speci men Type: BLOOD SPECIMENOrdering Facility: [facility] Address: [address] [place] [address] Performed By: #### 5 7021-8 ####MICHAEL LABORATORYCLIA [id number] [place] [address] [place] Neutrophils/100 WBC (Bld) 77.2 % Normal [facility] Comment on above: Order Comment: Speci men Type: BLOOD SPECIMENOrdering Facility: [facility] Address: [address] [place] [address] Performed By: #### 5 7021-8 ####MICHAEL LABORATORYCLIA [id number] [place] [address] [place] Nucleated RBC (Bld) [#/Vol] 10*3/uL Normal <0.01 [facility] Comment on above: Order Comment: Speci men Type: BLOOD SPECIMENOrdering Facility: [facility] Address: [address] [place] [address] Performed By: #### 5 7021-8 ####MICHAEL LABORATORYCLIA [id number] [place] [id number] [place] Nucleated RBC/100 WBC (Bld) [Ratio] 0.0 /100 WBC Normal [facility] Comment on above: Order Comment: Speci men Type: BLOOD SPECIMENOrdering Facility: [facility] Address: [address] [place] [address] Performed By: #### 5 7021-8 ####MICHAEL LABORATORYCLIA [id number] [place] [id number] [place] Platelet mean volume (Bld) [Entitic vol] 10.7 fL Normal 9.0-12.7 [facility] Comment on above: Order Comment: Speci men Type: BLOOD SPECIMENOrdering Facility: [facility] Address: [address] [place] [address] Performed By: #### 5 7021-8 ####MICHAEL LABORATORYCLIA [id number] [place] [id number] [place] Platelets (Bld) [#/Vol] 174 10*3/uL Normal 150-400 [facility] Comment on above: Order Comment: Speci men Type: BLOOD SPECIMENOrdering Facility: [facility] Address: [address] [place] [address] Performed By: #### 5 7021-8 ####MICHAEL LABORATORYCLIA [id number] [place] [id number] [place] RBC (Bld) [#/Vol] 3.38 10*6/uL Low 3.90-5.20 [facility] Comment on above: Order Comment: Speci men Type: BLOOD SPECIMENOrdering Facility: [facility] Address: [address] [place] [address] Performed By: #### 5 7021-8 ####MICHAEL LABORATORYCLIA [id number] [place] [id number] [place] WBC (Bld) [#/Vol] 6.73 10*3/uL Normal 3.70-11.00 [facility] Comment on above: Order Comment: Speci men Type: BLOOD SPECIMENOrdering Facility: [facility] Address: [address] [place] [address] Performed By: #### 5 7021-8 ####MICHAEL LABORATORYCLIA [id number] [place] [address] [place] CNPNon 09-04-2022 CNPN Normal [facility] Comprehensive metabolic 2000 panelon 09-04-2022 Albumin [Mass/Vol] 3.8 g/dL Low 3.9 - 4.9 g/dL [facility] ALP [Catalytic activity/Vol] 49 U/L 34 - 123 U/L [facility] ALT [Catalytic activity/Vol] 14 U/L 7 - 38 U/L [facility] Anion gap [Moles/Vol] 11 mmol/L 9 - 18 mmol/L [facility] AST [Catalytic activity/Vol] 11 U/L Low 13 - 35 U/L [facility] Bilirubin [Mass/Vol] 0.3 mg/dL 0.2 - 1 .3 mg/dL [facility] Calcium [Mass/Vol] 9.2 mg/dL 8.5 - 10. 2 mg/dL [facility] Chloride [Moles/Vol] 106 mmol/L High 97 - 10 5 mmol/L [facility] CO2 [Moles/Vol] 26 mmol/L 22 - 30 mmol/L [facility] Creatinine [Mass/Vol] 0.60 mg/dL 0.58 - 0.96 mg/dL [facility] Estimated Glomerular Filtration Rate 91 mL/min/1.73m >=60 mL/min/1.7 3m [facility] Glucose [Mass/Vol] 100 mg/dL High 74 - 99 mg/dL [facility] Potassium [Moles/Vol] 4.7 mmol/L 3.7 - 5.1 mmol/L [facility] Protein [Mass/Vol] 5.7 g/dL Low 6.3 - 8.0 g/dL [facility] Sodium [Moles/Vol] 143 mmol/L 136 - 144 mmol/L [facility] Urea nitrogen [Mass/Vol] 28 mg/dL High 7 - 21 mg/dL [facility] Albumin [Mass/Vol] 3.8 g/dL Low 3.9-4.9 [facility] Comment on above: Order Comment: Speci men Type: BLOOD SPECIMENOrdering Facility: [facility] Address: [address] [place] [address] Performed By: #### 2 4323-8 ####MICHAEL LABORATORYCLIA [id number] [place] [address] [place] ALP [Catalytic activity/Vol] 49 U/L Normal 34-123 [facility] Comment on above: Order Comment: Speci men Type: BLOOD SPECIMENOrdering Facility: [facility] Address: [address] [place] [address] Performed By: #### 2 4323-8 ####MICHAEL LABORATORYCLIA [id number] [place] [address] [place] ALT [Catalytic activity/Vol] 14 U/L Normal 7-38 [facility] Comment on above: Order Comment: Speci men Type: BLOOD SPECIMENOrdering Facility: [facility] Address: [address] [place] [address] Performed By: #### 2 4323-8 ####MICHAEL LABORATORYCLIA [id number] [place] [address] [place] Anion gap [Moles/Vol] 11 mmol/L Normal 9-18 [facility] Comment on above: Order Comment: Speci men Type: BLOOD SPECIMENOrdering Facility: [facility] Address: [address] [place] [address] Performed By: #### 2 4323-8 ####MICHAEL LABORATORYCLIA [id number] [place] [address] [place] AST [Catalytic activity/Vol] 11 U/L Low 13-35 [facility] Comment on above: Order Comment: Speci men Type: BLOOD SPECIMENOrdering Facility: [facility] Address: [address] [place] [address] Performed By: #### 2 4323-8 ####MICHAEL LABORATORYCLIA [id number] [place] [id number] [place] Bilirubin [Mass/Vol] 0.3 mg/dL Normal 0.2-1.3 [facility] Comment on above: Order Comment: Speci men Type: BLOOD SPECIMENOrdering Facility: [facility] Address: [address] [place] [address] Performed By: #### 2 4323-8 ####MICHAEL LABORATORYCLIA [id number] [place] [address] [place] Calcium [Mass/Vol] 9.2 mg/dL Normal 8.5-10.2 [facility] Comment on above: Order Comment: Speci men Type: BLOOD SPECIMENOrdering Facility: [facility] Address: [address] [place] [address] Performed By: #### 2 4323-8 ####MICHAEL LABORATORYCLIA [id number] [place] [address] [place] Chloride [Moles/Vol] 106 mmol/L High 97-105 [facility] Comment on above: Order Comment: Speci men Type: BLOOD SPECIMENOrdering Facility: [facility] Address: [address] [place] [address] Performed By: #### 2 4323-8 ####MICHAEL LABORATORYCLIA [id number] [place] [address] [place] CO2 [Moles/Vol] 26 mmol/L Normal 22-30 [facility] Comment on above: Order Comment: Speci men Type: BLOOD SPECIMENOrdering Facility: [facility] Address: [address] [place] [address] Performed By: #### 2 4323-8 ####MICHAEL LABORATORYCLIA [id number] [place] [id number] [place] Creatinine [Mass/Vol] 0.60 mg/dL Normal 0.58-0.96 [facility] Comment on above: Order Comment: Speci men Type: BLOOD SPECIMENOrdering Facility: [facility] Address: [address] [place] [address] Performed By: #### 2 4323-8 ####MICHAEL LABORATORYCLIA [id number] [place] [address] [place] ESTIMATED GLOMERULAR FILTRATION RATE 91 mL/min/1.73m??? Normal >=60 [facility] Comment on above: Order Comment: Kurt barraza Type: BLOOD SPECIMENOrdering Facility: [facility] Address: [address] [place] [address] Result Comment: Kim mated Glomerular Filtration Rate [...] Performed By: #### 2 4323-8 ####MICHAEL LABORATORYCLIA [id number] [place] [address] [place] Glucose [Mass/Vol] 100 mg/dL High 74-99 [facility] Comment on above: Order Comment: Kurt barraza Type: BLOOD SPECIMENOrdering Facility: [facility] Address: [address] [place] [address] Result Comment: The [place] [employer] (ADA) provides guidance for cutoff [...] Standards of Medical Care in Diabetes 2016, [place] [employer]. Diabetes Care. 2016.39(Suppl 1). Performed By: #### 2 4323-8 ####MICHAEL LABORATORYCLIA [id number] [place] [id number] [place] Potassium [Moles/Vol] 4.7 mmol/L Normal 3.7-5.1 [facility] Comment on above: Order Comment: Kurt barraza Type: BLOOD SPECIMENOrdering Facility: [facility] Address: [address] [place] [address] Performed By: #### 2 4323-8 ####MICHAEL LABORATORYCLIA [id number] [place] [address] [place] Protein [Mass/Vol] 5.7 g/dL Low 6.3-8.0 [facility] Comment on above: Order Comment: Speci men Type: BLOOD SPECIMENOrdering Facility: [facility] Address: [address] [place] [address] Performed By: #### 2 4323-8 ####MICHAEL LABORATORYCLIA [id number] [place] [address] [place] Sodium [Moles/Vol] 143 mmol/L Normal 136-144 [facility] Comment on above: Order Comment: Speci men Type: BLOOD SPECIMENOrdering Facility: [facility] Address: [address] [place] [address] Performed By: #### 2 4323-8 ####MICHAEL LABORATORYCLIA [id number] [place] [address] [place] Urea nitrogen [Mass/Vol] 28 mg/dL High 7-21 [facility] Comment on above: Order Comment: Speci men Type: BLOOD SPECIMENOrdering Facility: [facility] Address: [address] [place] [address] Performed By: #### 2 4323-8 ####MICHAEL LABORATORYCLIA [id number] [place] [address] [place] CBC W Auto Differential pane l (Bld)on 08-31-2022 Basophils (Bld) [#/Vol] 0.03 10*3/uL <0.11 k/uL [facility] Basophils/100 WBC (Bld) 0.4 % [facility] Differential cell count method Nom (Bld) Auto [facility] Eosinophils (Bld) [#/Vol] 0.20 10*3/uL <0.46 k/uL [facility] Eosinophils/100 WBC (Bld) 3.0 % [facility] Erythrocyte distribution width (RBC) [Ratio] 14.9 % 11.5 - 15.0 % [facility] Hematocrit (Bld) [Volume fraction] 31.4 % Low 36.0 - 46.0 % [facility] Hemoglobin (Bld) [Mass/Vol] 10.1 g/dL Low 11.5 - 15.5 g/dL [facility] Immature granulocytes (Bld) [#/Vol] 0.09 10*3/uL <0.10 k/uL [facility] Immature granulocytes/100 WBC (Bld) 1.3 % [facility] Lymphocytes (Bld) [#/Vol] 1.39 10*3/uL 1.00 - 4.00 k/uL [facility] Lymphocytes/100 WBC (Bld) 20.7 % [facility] MCH (RBC) [Entitic mass] 30.1 pg 26.0 - 34.0 pg [facility] MCHC (RBC) [Mass/Vol] 32.2 g/dL 30.5 - 36.0 g/dL [facility] MCV (RBC) [Entitic vol] 93.5 fL 80.0 - 100.0 fL [facility] Monocytes (Bld) [#/Vol] 0.61 10*3/uL <0.87 k/uL [facility] Monocytes/100 WBC (Bld) 9.1 % [facility] Neutrophils (Bld) [#/Vol] 4.41 10*3/uL 1.45 - 7.50 k/uL [facility] Neutrophils/100 WBC (Bld) 65.5 % [facility] Nucleated RBC (Bld) [#/Vol] <0.01 k/uL [facility] Nucleated RBC/100 WBC (Bld) [Ratio] 0.0 /100 WBC [facility] Platelet mean volume (Bld) [Entitic vol] 11.2 fL 9.0 - 12.7 fL [facility] Platelets (Bld) [#/Vol] 166 10*3/uL 150 - 400 k/uL [facility] RBC (Bld) [#/Vol] 3.36 10*6/uL Low 3.90 - 5.20 m/uL [facility] WBC (Bld) [#/Vol] 6.73 10*3/uL 3.70 - 11.00 k/uL [facility] Basophils (Bld) [#/Vol] 0.03 10*3/uL Normal <0.11 [facility] Comment on above: Order Comment: Speci men Type: BLOOD SPECIMENOrdering Facility: [facility] Address: [address] [place] [address] Performed By: #### 5 7021-8 ####MICHAEL LABORATORYCLIA [id number] [place] [address] [place] Basophils/100 WBC (Bld) 0.4 % Normal [facility] Comment on above: Order Comment: Speci men Type: BLOOD SPECIMENOrdering Facility: [facility] Address: [address] [place] [address] Performed By: #### 5 7021-8 ####MICHAEL LABORATORYCLIA [id number] [place] [address] [place] Differential cell count method Nom (Bld) Auto Normal [facility] Comment on above: Order Comment: Speci men Type: BLOOD SPECIMENOrdering Facility: [facility] Address: [address] [place] [address] Performed By: #### 5 7021-8 ####MICHAEL LABORATORYCLIA [id number] [place] [address] [place] Eosinophils (Bld) [#/Vol] 0.20 10*3/uL Normal <0.46 [facility] Comment on above: Order Comment: Speci men Type: BLOOD SPECIMENOrdering Facility: [facility] Address: [address] [place] [address] Performed By: #### 5 7021-8 ####MICHAEL LABORATORYCLIA [id number] [place] [address] [place] Eosinophils/100 WBC (Bld) 3.0 % Normal [facility] Comment on above: Order Comment: Speci men Type: BLOOD SPECIMENOrdering Facility: [facility] Address: [address] [place] [address] Performed By: #### 5 7021-8 ####MICHAEL LABORATORYCLIA [id number] [place] [address] [place] Erythrocyte distribution width (RBC) [Ratio] 14.9 % Normal 11.5-15.0 [facility] Comment on above: Order Comment: Speci men Type: BLOOD SPECIMENOrdering Facility: [facility] Address: [address] [place] [address] Performed By: #### 5 7021-8 ####MICHAEL LABORATORYCLIA [id number] [place] [address] [place] Hematocrit (Bld) [Volume fraction] 31.4 % Low 36.0-46.0 [facility] Comment on above: Order Comment: Speci men Type: BLOOD SPECIMENOrdering Facility: [facility] Address: [address] [place] [address] Performed By: #### 5 7021-8 ####MICHAEL LABORATORYCLIA [id number] [place] [address] [place] Hemoglobin (Bld) [Mass/Vol] 10.1 g/dL Low 11.5-15.5 [facility] Comment on above: Order Comment: Speci men Type: BLOOD SPECIMENOrdering Facility: [facility] Address: [address] [place] [address] Performed By: #### 5 7021-8 ####MICHAEL LABORATORYCLIA [id number] [place] [address] [place] Immature granulocytes (Bld) [#/Vol] 0.09 10*3/uL Normal <0.10 [facility] Comment on above: Order Comment: Speci men Type: BLOOD SPECIMENOrdering Facility: [facility] Address: [address] [place] [address] Performed By: #### 5 7021-8 ####MICHAEL LABORATORYCLIA [id number] [place] [address] [place] Immature granulocytes/100 WBC (Bld) 1.3 % Normal [facility] Comment on above: Order Comment: Speci men Type: BLOOD SPECIMENOrdering Facility: [facility] Address: [address] [place] [address] Performed By: #### 5 7021-8 ####MICHAEL LABORATORYCLIA [id number] [place] [address] [place] Lymphocytes (Bld) [#/Vol] 1.39 10*3/uL Normal 1.00-4.00 [facility] Comment on above: Order Comment: Speci men Type: BLOOD SPECIMENOrdering Facility: [facility] Address: [address] [place] [address] Performed By: #### 5 7021-8 ####MICHAEL LABORATORYCLIA [id number] [place] [address] [place] Lymphocytes/100 WBC (Bld) 20.7 % Normal [facility] Comment on above: Order Comment: Speci men Type: BLOOD SPECIMENOrdering Facility: [facility] Address: [address] [place] [address] Performed By: #### 5 7021-8 ####MICHAEL LABORATORYCLIA [id number] [place] [address] [place] MCH (RBC) [Entitic mass] 30.1 pg Normal 26.0-34.0 [facility] Comment on above: Order Comment: Speci men Type: BLOOD SPECIMENOrdering Facility: [facility] Address: [address] [place] [address] Performed By: #### 5 7021-8 ####MICHAEL LABORATORYCLIA [id number] [place] [address] [place] MCHC (RBC) [Mass/Vol] 32.2 g/dL Normal 30.5-36.0 [facility] Comment on above: Order Comment: Speci men Type: BLOOD SPECIMENOrdering Facility: [facility] Address: [address] [place] [address] Performed By: #### 5 7021-8 ####MICHAEL LABORATORYCLIA [id number] [place] [address] [place] MCV (RBC) [Entitic vol] 93.5 fL Normal 80.0-100.0 [facility] Comment on above: Order Comment: Speci men Type: BLOOD SPECIMENOrdering Facility: [facility] Address: [address] [place] [address] Performed By: #### 5 7021-8 ####MICHAEL LABORATORYCLIA [id number] [place] [id number] [place] Monocytes (Bld) [#/Vol] 0.61 10*3/uL Normal <0.87 [facility] Comment on above: Order Comment: Speci men Type: BLOOD SPECIMENOrdering Facility: [facility] Address: [address] [place] [address] Performed By: #### 5 7021-8 ####MICHAEL LABORATORYCLIA [id number] [place] [id number] [place] Monocytes/100 WBC (Bld) 9.1 % Normal [facility] Comment on above: Order Comment: Speci men Type: BLOOD SPECIMENOrdering Facility: [facility] Address: [address] [place] [address] Performed By: #### 5 7021-8 ####MICHAEL LABORATORYCLIA [id number] [place] [address] [place] Neutrophils (Bld) [#/Vol] 4.41 10*3/uL Normal 1.45-7.50 [facility] Comment on above: Order Comment: Speci men Type: BLOOD SPECIMENOrdering Facility: [facility] Address: [address] [place] [address] Performed By: #### 5 7021-8 ####MICHAEL LABORATORYCLIA [id number] [place] [id number] [place] Neutrophils/100 WBC (Bld) 65.5 % Normal [facility] Comment on above: Order Comment: Speci men Type: BLOOD SPECIMENOrdering Facility: [facility] Address: [address] [place] [address] Performed By: #### 5 7021-8 ####MICHAEL LABORATORYCLIA [id number] [place] [id number] [place] Nucleated RBC (Bld) [#/Vol] 10*3/uL Normal <0.01 [facility] Comment on above: Order Comment: Speci men Type: BLOOD SPECIMENOrdering Facility: [facility] Address: [address] [place] [address] Performed By: #### 5 7021-8 ####MICHAEL LABORATORYCLIA [id number] [place] [address] [place] Nucleated RBC/100 WBC (Bld) [Ratio] 0.0 /100 WBC Normal [facility] Comment on above: Order Comment: Speci men Type: BLOOD SPECIMENOrdering Facility: [facility] Address: [address] [place] [address] Performed By: #### 5 7021-8 ####MICHAEL LABORATORYCLIA [id number] [place] [address] [place] Platelet mean volume (Bld) [Entitic vol] 11.2 fL Normal 9.0-12.7 [facility] Comment on above: Order Comment: Speci men Type: BLOOD SPECIMENOrdering Facility: [facility] Address: [address] [place] [address] Performed By: #### 5 7021-8 ####MICHAEL LABORATORYCLIA [id number] [place] [address] [place] Platelets (Bld) [#/Vol] 166 10*3/uL Normal 150-400 [facility] Comment on above: Order Comment: Speci men Type: BLOOD SPECIMENOrdering Facility: [facility] Address: [address] [place] [address] Performed By: #### 5 7021-8 ####MICHAEL LABORATORYCLIA [id number] [place] [id number] [place] RBC (Bld) [#/Vol] 3.36 10*6/uL Low 3.90-5.20 [facility] Comment on above: Order Comment: Speci men Type: BLOOD SPECIMENOrdering Facility: [facility] Address: [address] [place] [address] Performed By: #### 5 7021-8 ####MICHAEL LABORATORYCLIA [id number] [place] [address] [place] WBC (Bld) [#/Vol] 6.73 10*3/uL Normal 3.70-11.00 [facility] Comment on above: Order Comment: Speci men Type: BLOOD SPECIMENOrdering Facility: [facility] Address: [address] [place] [address] Performed By: #### 5 7021-8 ####[place] LABORATORYCLIA [id number] [place] [address] [place] [facility] Comprehensive metabolic 2000 panelon 08-31-2022 Albumin [Mass/Vol] 3.9 g/dL 3.9 - 4.9 g/dL [facility] ALP [Catalytic activity/Vol] 47 U/L 34 - 123 U/L [facility] ALT [Catalytic activity/Vol] 23 U/L 7 - 38 U/L [facility] Anion gap [Moles/Vol] 11 mmol/L 9 - 18 mmol/L [facility] AST [Catalytic activity/Vol] 13 U/L 13 - 35 U/L [facility] Bilirubin [Mass/Vol] 0.4 mg/dL 0.2 - 1 .3 mg/dL [facility] Calcium [Mass/Vol] 8.9 mg/dL 8.5 - 10. 2 mg/dL [facility] Chloride [Moles/Vol] 101 mmol/L 97 - 10 5 mmol/L [facility] CO2 [Moles/Vol] 27 mmol/L 22 - 30 mmol/L [facility] Creatinine [Mass/Vol] 0.62 mg/dL 0.58 - 0.96 mg/dL [facility] Estimated Glomerular Filtration Rate 91 mL/min/1.73m >=60 mL/min/1.7 3m [facility] Glucose [Mass/Vol] 84 mg/dL 74 - 99 mg/dL [facility] Potassium [Moles/Vol] 3.6 mmol/L Low 3.7 - 5.1 mmol/L [facility] Protein [Mass/Vol] 5.9 g/dL Low 6.3 - 8.0 g/dL [facility] Sodium [Moles/Vol] 139 mmol/L 136 - 144 mmol/L [facility] Urea nitrogen [Mass/Vol] 26 mg/dL High 7 - 21 mg/dL [facility] Albumin [Mass/Vol] 3.9 g/dL Normal 3.9-4.9 [facility] Comment on above: Order Comment: Speci men Type: BLOOD SPECIMENOrdering Facility: [facility] Address: [address] [place] [address] Performed By: #### 2 4323-8 ####MICHAEL LABORATORYCLIA [id number] [place] [address] [place] ALP [Catalytic activity/Vol] 47 U/L Normal 34-123 [facility] Comment on above: Order Comment: Speci men Type: BLOOD SPECIMENOrdering Facility: [facility] Address: [address] [place] [address] Performed By: #### 2 432-8 ####MICHAEL LABORATORYCLIA [id number] [place] [address] [place] ALT [Catalytic activity/Vol] 23 U/L Normal 7-38 [facility] Comment on above: Order Comment: Speci men Type: BLOOD SPECIMENOrdering Facility: [facility] Address: [address] [place] [address] Performed By: #### 2 4323-8 ####MICHAEL LABORATORYCLIA [id number] [place] [address] [place] Anion gap [Moles/Vol] 11 mmol/L Normal 9-18 [facility] Comment on above: Order Comment: Speci men Type: BLOOD SPECIMENOrdering Facility: [facility] Address: [address] [place] [address] Performed By: #### 2 4323-8 ####MICHAEL LABORATORYCLIA [id number] [place] [id number] [place] AST [Catalytic activity/Vol] 13 U/L Normal 13-35 [facility] Comment on above: Order Comment: Speci men Type: BLOOD SPECIMENOrdering Facility: [facility] Address: [address] [place] [address] Performed By: #### 2 4323-8 ####MICHAEL LABORATORYCLIA [id number] [place] [id number] [place] Bilirubin [Mass/Vol] 0.4 mg/dL Normal 0.2-1.3 [facility] Comment on above: Order Comment: Speci men Type: BLOOD SPECIMENOrdering Facility: [facility] Address: [address] [place] [address] Performed By: #### 2 4323-8 ####MICHAEL LABORATORYCLIA [id number] [place] [address] [place] Calcium [Mass/Vol] 8.9 mg/dL Normal 8.5-10.2 [facility] Comment on above: Order Comment: Speci men Type: BLOOD SPECIMENOrdering Facility: [facility] Address: [address] [place] [address] Performed By: #### 2 4323-8 ####MICHAEL LABORATORYCLIA [id number] [place] [address] [place] Chloride [Moles/Vol] 101 mmol/L Normal 97-105 [facility] Comment on above: Order Comment: Speci men Type: BLOOD SPECIMENOrdering Facility: [facility] Address: [address] [place] [address] Performed By: #### 2 4323-8 ####MICHAEL LABORATORYCLIA [id number] [place] [address] [place] CO2 [Moles/Vol] 27 mmol/L Normal 22-30 [facility] Comment on above: Order Comment: Speci men Type: BLOOD SPECIMENOrdering Facility: [facility] Address: [address] [place] [address] Performed By: #### 2 4323-8 ####MICHAEL LABORATORYCLIA [id number] [place] [id number] [place] Creatinine [Mass/Vol] 0.62 mg/dL Normal 0.58-0.96 [facility] Comment on above: Order Comment: Speci men Type: BLOOD SPECIMENOrdering Facility: [facility] Address: [address] [place] [address] Performed By: #### 2 4323-8 ####MICHAEL LABORATORYCLIA [id number] [place] [address] [place] ESTIMATED GLOMERULAR FILTRATION RATE 91 mL/min/1.73m??? Normal >=60 [facility] Comment on above: Order Comment: Kurt barraza Type: BLOOD SPECIMENOrdering Facility: [facility] Address: [address] [place] [address] Result Comment: Kim mated Glomerular Filtration Rate [...] Performed By: #### 2 4323-8 ####MICHAEL LABORATORYCLIA [id number] [place] [address] [place] Glucose [Mass/Vol] 84 mg/dL Normal 74-99 [facility] Comment on above: Order Comment: Kurt barraza Type: BLOOD SPECIMENOrdering Facility: [facility] Address: [address] [place] [address] Result Comment: The [place] [employer] (ADA) provides guidance for cutoff [...] Standards of Medical Care in Diabetes 2016, [place] [employer]. Diabetes Care. 2016.39(Suppl 1). Performed By: #### 2 4323-8 ####MICHAEL LABORATORYCLIA [id number] [place] [id number] [place] Potassium [Moles/Vol] 3.6 mmol/L Low 3.7-5.1 [facility] Comment on above: Order Comment: Speci men Type: BLOOD SPECIMENOrdering Facility: [facility] Address: [address] [place] [address] Performed By: #### 2 4323-8 ####MICHAEL LABORATORYCLIA [id number] [place] [address] [place] Protein [Mass/Vol] 5.9 g/dL Low 6.3-8.0 [facility] Comment on above: Order Comment: Speci men Type: BLOOD SPECIMENOrdering Facility: [facility] Address: [address] [place] [address] Performed By: #### 2 4323-8 ####MICHAEL LABORATORYCLIA [id number] [place] [id number] [place] Sodium [Moles/Vol] 139 mmol/L Normal 136-144 [facility] Comment on above: Order Comment: Speci men Type: BLOOD SPECIMENOrdering Facility: [facility] Address: [address] [place] [address] Performed By: #### 2 4323-8 ####MICHAEL LABORATORYCLIA [id number] [place] [id number] [place] Urea nitrogen [Mass/Vol] 26 mg/dL High 7-21 [facility] Comment on above: Order Comment: Speci men Type: BLOOD SPECIMENOrdering Facility: [facility] Address: [address] [place] [address] Performed By: #### 2 4323-8 ####MICHAEL LABORATORYCLIA [id number] [place] [id number] [place] MAGNESIUM BLDon 08-31-2022 Magnesium [Mass/Vol] 2.2 mg/dL 1.7 - 2 .3 mg/dL [facility] Magnesium SerPl-mCncon 08-31 Magnesium [Mass/Vol] 2.2 mg/dL Normal 1.7-2.3 [facility] Comment on above: Order Comment: Speci men Type: BLOOD SPECIMENOrdering Facility: [facility] Address: [address] [place] [address]83 Performed By: #### 1 9123-9 ####[facility] LABORATORYCLIA [id number] [place] [address] [place] CASE MANAGEMon 08-28-2022 CASE MANAGEM Normal [facility] CASE MANAGEM Normal [facility] CBC panel Auto (Bld)on 08-28 Erythrocyte distribution width (RBC) [Ratio] 14.2 % Normal 11.5-15.0 [facility] Comment on above: Order Comment: Speci men Type: BLOOD SPECIMENOrdering Facility: [facility] Address: [address] [place] [address] Performed By: #### 5 8410-2 ####[facility] LABCLIA [id number] [place] [address] [place] Hematocrit (Bld) [Volume fraction] 30.3 % Low 36.0-46.0 [facility] Comment on above: Order Comment: Speci men Type: BLOOD SPECIMENOrdering Facility: [facility] Address: [address] [place] [address] Performed By: #### 5 8410-2 ####[facility] LABCLIA [id number] [place] [address] [place] Hemoglobin (Bld) [Mass/Vol] 10.1 g/dL Low 11.5-15.5 [facility] Comment on above: Order Comment: Speci men Type: BLOOD SPECIMENOrdering Facility: [facility] Address: [address] Performed By: #### 5 8410-2 ####[facility] LABCLIA [id number] [place] [address] [place] MCH (RBC) [Entitic mass] 30.2 pg Normal 26.0-34.0 [facility] Comment on above: Order Comment: Speci men Type: BLOOD SPECIMENOrdering Facility: [facility] Address: [address] [place], [place] [address] Performed By: #### 5 8410-2 ####[facility] LABIA [id number] [place] [address] [place] MCHC (RBC) [Mass/Vol] 33.3 g/dL Normal 30.5-36.0 [facility] Comment on above: Order Comment: Speci men Type: BLOOD SPECIMENOrdering Facility: [facility] Address: [address] [place] [address] Performed By: #### 5 8410-2 ####[facility] LABIA [id number] [address] [place] MCV (RBC) [Entitic vol] 90.7 fL Normal 80.0-100.0 [facility] Comment on above: Order Comment: Speci men Type: BLOOD SPECIMENOrdering Facility: [facility] Address: [address] [place] [address] Performed By: #### 5 8410-2 ####[facility] LABMA[facility] [id number] [place] [address] [place] Nucleated RBC (Bld) [#/Vol] 10*3/uL Normal <0.01 [facility] Comment on above: Order Comment: Speci men Type: BLOOD SPECIMENOrdering Facility: [facility] Address: [address] [place], [place] [address] Performed By: #### 5 8410-2 ####[facility] LABIA [id number] [place] [address] [place] Platelet mean volume (Bld) [Entitic vol] 10.5 fL Normal 9.0-12.7 [facility] Comment on above: Order Comment: Speci men Type: BLOOD SPECIMENOrdering Facility: [facility] Address: [address] [place], [place] [address] Performed By: #### 5 8410-2 ####[facility] LABIA [id number] [place] [address] [facility] [place] Platelets (Bld) [#/Vol] 162 10*3/uL Normal 150-400 [facility] Comment on above: Order Comment: Speci men Type: BLOOD SPECIMENOrdering Facility: [facility] Address: [address] [place], [place] [address] Performed By: #### 5 8410-2 ####[facility] LABCLIA [id number] [place] [address] [place] RBC (Bld) [#/Vol] 3.34 10*6/uL Low 3.90-5.20 [facility] Comment on above: Order Comment: Speci men Type: BLOOD SPECIMENOrdering Facility: [facility] Address: [address] [place], [place] [address] Performed By: #### 5 8410-2 ####[facility] LABCLIA [id number] [place] [address] [place] WBC (Bld) [#/Vol] 9.86 10*3/uL Normal 3.70-11.00 [facility] Comment on above: Order Comment: Speci men Type: BLOOD SPECIMENOrdering Facility: [facility] Address: [address] [place], [place] [address] Performed By: #### 5 8410-2 ####[facility] LABCLIA [id number] [place] [address] [place] CNDSon 08-28-2022 CNDS Normal [facility] CBC panel Auto (Bld)on 08-27 Erythrocyte distribution width (RBC) [Ratio] 13.8 % Normal 11.5-15.0 [facility] Comment on above: Order Comment: Speci men Type: BLOOD SPECIMENOrdering Facility: [facility] Address: [address] [place], [place] [address] Performed By: #### 5 8410-2 ####[facility] LABCLIA [id number] [place] [address] [place] Hematocrit (Bld) [Volume fraction] 30.5 % Low 36.0-46.0 [facility] Comment on above: Order Comment: Speci men Type: BLOOD SPECIMENOrdering Facility: [facility] Address: [address] [place] [address] Performed By: #### 5 8410-2 ####[facility] LABCLIA [id number] [address] [place] OF [facility] Hemoglobin (Bld) [Mass/Vol] 10.1 g/dL Low 11.5-15.5 [facility] Comment on above: Order Comment: Speci men Type: BLOOD SPECIMENOrdering Facility: [facility] Address: [address] [place] [address] Performed By: #### 5 8410-2 ####[facility] LABCLIA [id number] [address] [place] MCH (RBC) [Entitic mass] 29.9 pg Normal 26.0-34.0 [facility] Comment on above: Order Comment: Speci men Type: BLOOD SPECIMENOrdering Facility: [facility] Address: [address] [place] [address] Performed By: #### 5 8410-2 ####[facility] LABIA [id number] [address] [place] MCHC (RBC) [Mass/Vol] 33.1 g/dL Normal 30.5-36.0 [facility] Comment on above: Order Comment: Speci men Type: BLOOD SPECIMENOrdering Facility: [facility] Address: [address] [place] [address] Performed By: #### 5 8410-2 ####[facility] LABIA [id number] [address] [place] MCV (RBC) [Entitic vol] 90.2 fL Normal 80.0-100.0 [facility] Comment on above: Order Comment: Speci men Type: BLOOD SPECIMENOrdering Facility: [facility] Address: [address] [place] [address] Performed By: #### 5 8410-2 ####[facility] LABIA [id number] [place] [address] [place] Nucleated RBC (Bld) [#/Vol] 10*3/uL Normal <0.01 [facility] Comment on above: Order Comment: Speci men Type: BLOOD SPECIMENOrdering Facility: [facility] Address: [address] Performed By: #### 5 8410-2 ####[facility] LABIA [id number] [place] [address] [place] Platelet mean volume (Bld) [Entitic vol] 10.3 fL Normal 9.0-12.7 [facility] Comment on above: Order Comment: Speci men Type: BLOOD SPECIMENOrdering Facility: [facility] Address: [address] Performed By: #### 5 8410-2 ####[facility] LABIA [id number] [place] [address] [place] Platelets (Bld) [#/Vol] 159 10*3/uL Normal 150-400 [facility] Comment on above: Order Comment: Speci men Type: BLOOD SPECIMENOrdering Facility: [facility] Address: [address] [place] [address] Performed By: #### 5 8410-2 ####[facility] LABIA [id number] [place] [address] [place] RBC (Bld) [#/Vol] 3.38 10*6/uL Low 3.90-5.20 [facility] Comment on above: Order Comment: Speci men Type: BLOOD SPECIMENOrdering Facility: [facility] Address: [address] [place] [address] Performed By: #### 5 8410-2 ####[facility] LABCLIA [id number] [place] [address] [place] WBC (Bld) [#/Vol] 10.40 10*3/uL Normal 3.70-11.00 [facility] Comment on above: Order Comment: Speci men Type: BLOOD SPECIMENOrdering Facility: [facility] Address: [address] [place] [address] Performed By: #### 5 8410-2 ####[facility] LABCLIA [id number] [place] [address] [place] CBC panel Auto (Bld)on 08-26 Erythrocyte distribution width (RBC) [Ratio] 13.7 % Normal 11.5-15.0 [facility] Comment on above: Order Comment: Speci men Type: BLOOD SPECIMENOrdering Facility: [facility] Address: [address] [place] [address] Performed By: #### 5 8410-2 ####[facility] LABIA [id number] [place] [address] [place] Hematocrit (Bld) [Volume fraction] 33.2 % Low 36.0-46.0 [facility] Comment on above: Order Comment: Speci men Type: BLOOD SPECIMENOrdering Facility: [facility] Address: [address] [place], [place] [address] Performed By: #### 5 8410-2 ####[facility] LABCLIA [id number] [place] [address] [place] Hemoglobin (Bld) [Mass/Vol] 10.8 g/dL Low 11.5-15.5 [facility] Comment on above: Order Comment: Speci men Type: BLOOD SPECIMENOrdering Facility: [facility] Address: [address] [place] [address] Performed By: #### 5 8410-2 ####[facility] LABCLIA [id number] [address] MCH (RBC) [Entitic mass] 29.3 pg Normal 26.0-34.0 [facility] Comment on above: Order Comment: Speci men Type: BLOOD SPECIMENOrdering Facility: [facility] Address: [address] [place] [address] Performed By: #### 5 8410-2 ####[facility] LABCLIA [id number] [address] MCHC (RBC) [Mass/Vol] 32.5 g/dL Normal 30.5-36.0 [facility] Comment on above: Order Comment: Speci men Type: BLOOD SPECIMENOrdering Facility: [facility] Address: [address] [place] [address] Performed By: #### 5 8410-2 ####[facility] LABCLIA [id number] [address] OF [facility] MCV (RBC) [Entitic vol] 90.2 fL Normal 80.0-100.0 [facility] Comment on above: Order Comment: Speci men Type: BLOOD SPECIMENOrdering Facility: [facility] Address: [address] [place] [address] Performed By: #### 5 8410-2 ####[facility] LABCLIA [id number] [address] [place] Nucleated RBC (Bld) [#/Vol] 10*3/uL Normal <0.01 [facility] Comment on above: Order Comment: Speci men Type: BLOOD SPECIMENOrdering Facility: [facility] Address: [address] [place] [address] Performed By: #### 5 8410-2 ####[facility] LABCLIA [id number] [address] [place] Platelet mean volume (Bld) [Entitic vol] 11.0 fL Normal 9.0-12.7 [facility] Comment on above: Order Comment: Speci men Type: BLOOD SPECIMENOrdering Facility: [facility] Address: [address] [place] [address] Performed By: #### 5 8410-2 ####[facility] LABCLIA [id number] [place] [address] [place] Platelets (Bld) [#/Vol] 204 10*3/uL Normal 150-400 [facility] Comment on above: Order Comment: Speci men Type: BLOOD SPECIMENOrdering Facility: [facility] Address: [address] [place] [address] Performed By: #### 5 8410-2 ####[facility] LABIA [id number] [place] [address] [place] RBC (Bld) [#/Vol] 3.68 10*6/uL Low 3.90-5.20 [facility] Comment on above: Order Comment: Speci men Type: BLOOD SPECIMENOrdering Facility: [facility] Address: [address] [place] [address] Performed By: #### 5 8410-2 ####[facility] LABIA [id number] [place] [address] [place] WBC (Bld) [#/Vol] 11.95 10*3/uL High 3.70-11.00 [facility] Comment on above: Order Comment: Speci men Type: BLOOD SPECIMENOrdering Facility: [facility] Address: [address] [place] [address] Performed By: #### 5 8410-2 ####[facility] LABIA [id number] [place] [address] [place] BRAIN WO IVCONon 08-26-19 CT BRAIN WO IVCON Normal [facility] PTT, ANTICOAGULANT THERAPYon 08-26-2022 aPTT Coag (PPP) [Time] 21.8 s Low 23.0-32.4 [facility] Comment on above: Order Comment: Speci men Type: BLOOD SPECIMENOrdering Facility: [facility] Address: [address] [place] [address] Performed By: #### P TTAC ####[facility] LABCLIA [id number] [place] [address] [place] CASE MANAGEMon 08-25-2022 CASE MANAGEM Normal [facility] CBC panel Auto (Bld)on 08-25 Erythrocyte distribution width (RBC) [Ratio] 13.6 % Normal 11.5-15.0 [facility] Comment on above: Order Comment: Speci men Type: BLOOD SPECIMENOrdering Facility: [facility] Address: [address] [place] [address] Performed By: #### 5 8410-2 ####[facility] LABCLIA [id number] [address] [place] Hematocrit (Bld) [Volume fraction] 29.9 % Low 36.0-46.0 [facility] Comment on above: Order Comment: Speci men Type: BLOOD SPECIMENOrdering Facility: [facility] Address: [address] [place] [address] Performed By: #### 5 8410-2 ####[facility] LABCLIA [id number] [place] [address] [place] Hemoglobin (Bld) [Mass/Vol] 9.9 g/dL Low 11.5-15.5 [facility] Comment on above: Order Comment: Speci men Type: BLOOD SPECIMENOrdering Facility: [facility] Address: [address] [place] [address] Performed By: #### 5 8410-2 ####[facility] LABCLIA [id number] [place] [address] [place] MCH (RBC) [Entitic mass] 29.6 pg Normal 26.0-34.0 [facility] Comment on above: Order Comment: Speci men Type: BLOOD SPECIMENOrdering Facility: [facility] Address: [address] Performed By: #### 5 8410-2 ####[facility] LABIA [id number] [address] [place] MCHC (RBC) [Mass/Vol] 33.1 g/dL Normal 30.5-36.0 [facility] Comment on above: Order Comment: Speci men Type: BLOOD SPECIMENOrdering Facility: [facility] Address: [address] Performed By: #### 5 8410-2 ####[facility] LABIA [id number] [address] [place] MCV (RBC) [Entitic vol] 89.3 fL Normal 80.0-100.0 [facility] Comment on above: Order Comment: Speci men Type: BLOOD SPECIMENOrdering Facility: [facility] Address: [address] Performed By: #### 5 8410-2 ####[facility] LABIA [id number] [place] [address] [place] Nucleated RBC (Bld) [#/Vol] 10*3/uL Normal <0.01 [facility] Comment on above: Order Comment: Speci men Type: BLOOD SPECIMENOrdering Facility: [facility] Address: [address] Performed By: #### 5 8410-2 ####[facility] LABIA [id number] [address] [place] Platelet mean volume (Bld) [Entitic vol] 10.8 fL Normal 9.0-12.7 [facility] Comment on above: Order Comment: Speci men Type: BLOOD SPECIMENOrdering Facility: [facility] Address: [address] Performed By: #### 5 8410-2 ####[facility] LABIA [id number] [place] [address] [place] Platelets (Bld) [#/Vol] 208 10*3/uL Normal 150-400 [facility] Comment on above: Order Comment: Speci men Type: BLOOD SPECIMENOrdering Facility: [facility] Address: [address] [place], [place] [address] Performed By: #### 5 8410-2 ####[facility] [id number] [place] [address] [place] RBC (Bld) [#/Vol] 3.35 10*6/uL Low 3.90-5.20 [facility] Comment on above: Order Comment: Speci men Type: BLOOD SPECIMENOrdering Facility: [facility] Address: [address] [place], [place] [address] Performed By: #### 5 8410-2 ####[facility] [id number] [place] [address] [place] WBC (Bld) [#/Vol] 11.25 10*3/uL High 3.70-11.00 [facility] Comment on above: Order Comment: Speci men Type: BLOOD SPECIMENOrdering Facility: [facility] Address: [address] [place], [place] [address] Performed By: #### 5 8410-2 ####[facility] [id number] [place] [address] [place] CNNURSEon 08-25-2022 CNNURSE Normal [facility] CONSULT PROGon 08-25-2022 CONSULT PROG Normal [facility] CT BRAIN WO IVCONon 08-25-[address] BRAIN WO IVCON Normal [facility] NUTRITIONon 08-25-2022 NUTRITION Normal [facility] PTT, ANTICOAGULANT THERAPYon 08-25-2022 aPTT Coag (PPP) [Time] 62.4 s High 23.0-32.4 [facility] Comment on above: Order Comment: Speci men Type: BLOOD SPECIMENOrdering Facility: [facility] Address: [address] [place] [address] Performed By: #### P TTAC ####[facility] LABCLIA [id number] [address] OF [facility] aPTT Coag (PPP) [Time] s High 23.0-32.4 [facility] Comment on above: Order Comment: Speci men Type: BLOOD SPECIMENOrdering Facility: [facility] Address: [address] [place] [address] Result Comment: Resu lt rechecked.Sample checked for clot. Performed By: #### P TTAC ####[facility] LABCLIA [id number] [address] [place] THERAPY NTon 08-25-2022 THERAPY NT Normal [facility] THERAPY NT Normal [facility] aPTT PPPon 08-25-2022 aPTT Coag (PPP) [Time] 58.3 s High 23.0-32.4 [facility] Comment on above: Order Comment: Speci men Type: BLOOD SPECIMENOrdering Facility: [facility] Address: [address] [place] [address] Performed By: #### 1 4979-9 ####[facility] LABCLIA [id number] [address] [place] aPTT Coag (PPP) [Time] 119.9 s High 23.0-32.4 [facility] Comment on above: Order Comment: Speci men Type: BLOOD SPECIMENOrdering Facility: [facility] Address: [address] [place] [address] Result Comment: Resu lt rechecked.Sample checked for clot. Performed By: #### 1 4979-9 ####[facility] LABCLIA [id number] [address] [place] CBC panel Auto (Bld)on 08-24 Erythrocyte distribution width (RBC) [Ratio] 13.5 % Normal 11.5-15.0 [facility] Comment on above: Order Comment: Speci men Type: BLOOD SPECIMENOrdering Facility: [facility] Address: [address] [place] [address] Performed By: #### 5 8410-2 ####[facility] LABIA [id number] [address] [place] Hematocrit (Bld) [Volume fraction] 30.1 % Low 36.0-46.0 [facility] Comment on above: Order Comment: Speci men Type: BLOOD SPECIMENOrdering Facility: [facility] Address: [address] [place] [address] Performed By: #### 5 8410-2 ####[facility] LABIA [id number] [address] [place] Hemoglobin (Bld) [Mass/Vol] 9.9 g/dL Low 11.5-15.5 [facility] Comment on above: Order Comment: Speci men Type: BLOOD SPECIMENOrdering Facility: [facility] Address: [address] [place], [place] [address] Performed By: #### 5 8410-2 ####[facility] LABIA [id number] [place] [address] [place] MCH (RBC) [Entitic mass] 29.5 pg Normal 26.0-34.0 [facility] Comment on above: Order Comment: Speci men Type: BLOOD SPECIMENOrdering Facility: [facility] Address: [address] [place], [place] [address] Performed By: #### 5 8410-2 ####[facility] LABIA [id number] [address] [place] MCHC (RBC) [Mass/Vol] 32.9 g/dL Normal 30.5-36.0 [facility] Comment on above: Order Comment: Speci men Type: BLOOD SPECIMENOrdering Facility: [facility] Address: [address] [place], [place] [address] Performed By: #### 5 8410-2 ####[facility] LABIA [id number] [address] [place] MCV (RBC) [Entitic vol] 89.6 fL Normal 80.0-100.0 [facility] Comment on above: Order Comment: Speci men Type: BLOOD SPECIMENOrdering Facility: [facility] Address: [address] [place], [place] [address] Performed By: #### 5 8410-2 ####[facility] LABIA [id number] [place] [address] [place] Nucleated RBC (Bld) [#/Vol] 10*3/uL Normal <0.01 [facility] Comment on above: Order Comment: Speci men Type: BLOOD SPECIMENOrdering Facility: [facility] Address: [address] [place], [place] [address] Performed By: #### 5 8410-2 ####[facility] LABIA [id number] [place] [address] [place] Platelet mean volume (Bld) [Entitic vol] 11.0 fL Normal 9.0-12.7 [facility] Comment on above: Order Comment: Speci men Type: BLOOD SPECIMENOrdering Facility: [facility] Address: [address] [place], [place] [address] Performed By: #### 5 8410-2 ####[facility] LABIA [id number] [place] [address] [place] Platelets (Bld) [#/Vol] 201 10*3/uL Normal 150-400 [facility] Comment on above: Order Comment: Speci men Type: BLOOD SPECIMENOrdering Facility: [facility] Address: [address] [place] [address] Performed By: #### 5 8410-2 ####[facility] LABIA [id number] [place] [address] [place] RBC (Bld) [#/Vol] 3.36 10*6/uL Low 3.90-5.20 [facility] Comment on above: Order Comment: Speci men Type: BLOOD SPECIMENOrdering Facility: [facility] Address: [address] Performed By: #### 5 8410-2 ####[facility] LABIA [id number] [place] [address] [place] WBC (Bld) [#/Vol] 11.63 10*3/uL High 3.70-11.00 [facility] Comment on above: Order Comment: Speci men Type: BLOOD SPECIMENOrdering Facility: [facility] Address: [address] Performed By: #### 5 8410-2 ####[facility] LABIA [id number] [place] [address] [place] CONSULT PROGon 08-24-2022 CONSULT PROG Normal [facility] THERAPY NTon 08-24-2022 THERAPY NT Normal [facility] THERAPY NT Normal [facility] CBC panel Auto (Bld)on 08-23 Erythrocyte distribution width (RBC) [Ratio] 13.4 % Normal 11.5-15.0 [facility] Comment on above: Order Comment: Speci men Type: BLOOD SPECIMENOrdering Facility: [facility] Address: [address] [place] [address] Performed By: #### 5 8410-2 ####[facility] LABCLIA [id number] [place] [address] [place] Hematocrit (Bld) [Volume fraction] 36.5 % Normal 36.0-46.0 [facility] Comment on above: Order Comment: Speci men Type: BLOOD SPECIMENOrdering Facility: [facility] Address: [address] [place] [address] Performed By: #### 5 8410-2 ####[facility] LABCLIA [id number] [place] [address] [place] Hemoglobin (Bld) [Mass/Vol] 12.1 g/dL Normal 11.5-15.5 [facility] Comment on above: Order Comment: Speci men Type: BLOOD SPECIMENOrdering Facility: [facility] Address: [address] [place] [address] Performed By: #### 5 8410-2 ####[facility] LABCLIA [id number] [address] [place] MCH (RBC) [Entitic mass] 29.5 pg Normal 26.0-34.0 [facility] Comment on above: Order Comment: Speci men Type: BLOOD SPECIMENOrdering Facility: [facility] Address: [address] [place], [place] [address] Performed By: #### 5 8410-2 ####[facility] LABIA [id number] [address] [place] MCHC (RBC) [Mass/Vol] 33.2 g/dL Normal 30.5-36.0 [facility] Comment on above: Order Comment: Speci men Type: BLOOD SPECIMENOrdering Facility: [facility] Address: [address] Performed By: #### 5 8410-2 ####[facility] LABIA [id number] [place] [address] [place] MCV (RBC) [Entitic vol] 89.0 fL Normal 80.0-100.0 [facility] Comment on above: Order Comment: Speci men Type: BLOOD SPECIMENOrdering Facility: [facility] Address: [address] [place], [place] [address] Performed By: #### 5 8410-2 ####[facility] LABCLIA [id number] [place] [address] [place] Nucleated RBC (Bld) [#/Vol] 10*3/uL Normal <0.01 [facility] Comment on above: Order Comment: Speci men Type: BLOOD SPECIMENOrdering Facility: [facility] Address: [address] Performed By: #### 5 8410-2 ####[facility] LABIA [id number] [place] [address] [place] Platelet mean volume (Bld) [Entitic vol] 11.1 fL Normal 9.0-12.7 [facility] Comment on above: Order Comment: Speci men Type: BLOOD SPECIMENOrdering Facility: [facility] Address: [address] Performed By: #### 5 8410-2 ####[facility] LABIA [id number] [place] [address] [place] Platelets (Bld) [#/Vol] 208 10*3/uL Normal 150-400 [facility] Comment on above: Order Comment: Speci men Type: BLOOD SPECIMENOrdering Facility: [facility] Address: [address] [place] [address] Performed By: #### 5 8410-2 ####[facility] LABCLIA [id number] [place] [address] [place] RBC (Bld) [#/Vol] 4.10 10*6/uL Normal 3.90-5.20 [facility] Comment on above: Order Comment: Speci men Type: BLOOD SPECIMENOrdering Facility: [facility] Address: [address] Performed By: #### 5 8410-2 ####[facility] LABCLIA [id number] [place] [address] [place] WBC (Bld) [#/Vol] 17.12 10*3/uL High 3.70-11.00 [facility] Comment on above: Order Comment: Speci men Type: BLOOD SPECIMENOrdering Facility: [facility] Address: [address] [place] [address] Performed By: #### 5 8410-2 ####[facility] LABCLIA [id number] [place] [address] [place] PT EDon 08-23-2022 PT ED Normal [facility] THERAPY NTon 08-23-2022 THERAPY NT Normal [facility] NT Normal [facility] CASE MANAGEMon 08-22-2022 CASE MANAGEM Normal [facility] CONSULTon 08-22-2022 CONSULT Normal [facility] CONSULT Normal [facility] THERAPY NTon 08-22-2022 THERAPY NT Normal [facility] NT Normal [facility] Basic metabolic 2000 panelon 08-21-2022 Anion gap [Moles/Vol] 11 mmol/L Normal 9-18 [facility] Comment on above: Order Comment: Speci men Type: BLOOD SPECIMENOrdering Facility: [facility] Address: [address] [place] [address] Performed By: #### 2 4321-2 ####[facility] LABCLIA [id number] [place] [address] [place] Calcium [Mass/Vol] 8.8 mg/dL Normal 8.5-10.2 [facility] Comment on above: Order Comment: Speci men Type: BLOOD SPECIMENOrdering Facility: [facility] Address: [address] [place] [address] Performed By: #### 2 4321-2 ####[facility] LABCLIA [id number] [place] [id number] [place] Chloride [Moles/Vol] 102 mmol/L Normal 97-105 [facility] Comment on above: Order Comment: Speci men Type: BLOOD SPECIMENOrdering Facility: [facility] Address: [address] [place] [address] Performed By: #### 2 4321-2 ####[facility] LABCLIA [id number] [place] [address] [place] CO2 [Moles/Vol] 24 mmol/L Normal 22-30 [facility] Comment on above: Order Comment: Speci men Type: BLOOD SPECIMENOrdering Facility: [facility] Address: [address] [place] [address] Performed By: #### 2 4321-2 ####[facility] LABIA [id number] [address] OF [facility] Creatinine [Mass/Vol] 0.95 mg/dL Normal 0.58-0.96 [facility] Comment on above: Order Comment: Speci men Type: BLOOD SPECIMENOrdering Facility: [facility] Address: [address] [place] [address] Performed By: #### 2 4321-2 ####[facility] LABIA [id number] [address] ESTIMATED GLOMERULAR FILTRATION RATE 61 mL/min/1.73m??? Normal >=60 [facility] Comment on above: Order Comment: Speci men Type: BLOOD SPECIMENOrdering Facility: [facility] Address: [address] [place] [address] Result Comment: Kim mated Glomerular Filtration Rate [...] actual GFR. Performed By: #### 2 4321-2 ####[facility] LABCLIA [id number] [place] [address] [place] Glucose [Mass/Vol] 125 mg/dL High 74-99 [facility] Comment on above: Order Comment: Speci men Type: BLOOD SPECIMENOrdering Facility: [facility] Address: [address] [place] [address] Result Comment: The [place] [employer] (ADA) provides guidance for cutoff [...] Standards of Medical Care in Diabetes 2016, [place] [employer]. Diabetes Care. 2016.39(Suppl 1). Performed By: #### 2 4321-2 ####[facility] LABCLIA [id number] [place] [address] [place] Potassium [Moles/Vol] 3.9 mmol/L Normal 3.7-5.1 [facility] Comment on above: Order Comment: Speci men Type: BLOOD SPECIMENOrdering Facility: [facility] Address: [address] [place] [address] Performed By: #### 2 4321-2 ####[facility] LABCLIA [id number] [place] [address] [place] Sodium [Moles/Vol] 137 mmol/L Normal 136-144 [facility] Comment on above: Order Comment: Speci men Type: BLOOD SPECIMENOrdering Facility: [facility] Address: [address] [place] [address] Performed By: #### 2 4321-2 ####[facility] LABCLIA [id number] [place] [address] [place] [address] [place] Urea nitrogen [Mass/Vol] 20 mg/dL Normal 7-21 [facility] Comment on above: Order Comment: Speci men Type: BLOOD SPECIMENOrdering Facility: [facility] Address: [address] [place] [address] Performed By: #### 2 4321-2 ####[facility] LABCLIA [id number] [address] OF [facility] CASE MANAGEMon 08-21-2022 CASE MANAGEM Normal [facility] CBC panel Auto (Bld)on 08-21 Erythrocyte distribution width (RBC) [Ratio] 13.1 % Normal 11.5-15.0 [facility] Comment on above: Order Comment: Speci men Type: BLOOD SPECIMENOrdering Facility: [facility] Address: [address] [place] [address] Performed By: #### 5 8410-2 ####[facility] LABCLIA [id number] [address] [place] Hematocrit (Bld) [Volume fraction] 33.0 % Low 36.0-46.0 [facility] Comment on above: Order Comment: Speci men Type: BLOOD SPECIMENOrdering Facility: [facility] Address: [address] [place] [address] Performed By: #### 5 8410-2 ####[facility] LABCLIA [id number] [place] [address] [place] Hemoglobin (Bld) [Mass/Vol] 11.0 g/dL Low 11.5-15.5 [facility] Comment on above: Order Comment: Speci men Type: BLOOD SPECIMENOrdering Facility: [facility] Address: [address] [place] [address] Performed By: #### 5 8410-2 ####[facility] LABCLIA [id number] [place] [address] [place] MCH (RBC) [Entitic mass] 29.6 pg Normal 26.0-34.0 [facility] Comment on above: Order Comment: Speci men Type: BLOOD SPECIMENOrdering Facility: [facility] Address: [address] [place], [place] [address] Performed By: #### 5 8410-2 ####[facility] LABIA [id number] [address] [place] MCHC (RBC) [Mass/Vol] 33.3 g/dL Normal 30.5-36.0 [facility] Comment on above: Order Comment: Speci men Type: BLOOD SPECIMENOrdering Facility: [facility] Address: [address] [place] [address] Performed By: #### 5 8410-2 ####[facility] LABIA [id number] [place] [address] [place] MCV (RBC) [Entitic vol] 88.7 fL Normal 80.0-100.0 [facility] Comment on above: Order Comment: Speci men Type: BLOOD SPECIMENOrdering Facility: [facility] Address: [address] [place], [place] [address] Performed By: #### 5 8410-2 ####[facility] LABIA [id number] [place] [address] [place] Nucleated RBC (Bld) [#/Vol] 10*3/uL Normal <0.01 [facility] Comment on above: Order Comment: Speci men Type: BLOOD SPECIMENOrdering Facility: [facility] Address: [address] [place], [place] [address] Performed By: #### 5 8410-2 ####[facility] LABIA [id number] [place] [address] [place] Platelet mean volume (Bld) [Entitic vol] 11.8 fL Normal 9.0-12.7 [facility] Comment on above: Order Comment: Speci men Type: BLOOD SPECIMENOrdering Facility: [facility] Address: [address] Performed By: #### 5 8410-2 ####[facility] LABIA [id number] [place] [address] [place] Platelets (Bld) [#/Vol] 180 10*3/uL Normal 150-400 [facility] Comment on above: Order Comment: Speci men Type: BLOOD SPECIMENOrdering Facility: [facility] Address: [address] [place], [place] [address] Performed By: #### 5 8410-2 ####[facility] [id number] [place] [address] [place] RBC (Bld) [#/Vol] 3.72 10*6/uL Low 3.90-5.20 [facility] Comment on above: Order Comment: Speci men Type: BLOOD SPECIMENOrdering Facility: [facility] Address: [address] [place] [address] Performed By: #### 5 8410-2 ####[facility] [id number] [place] [address] [place] WBC (Bld) [#/Vol] 21.82 10*3/uL High 3.70-11.00 [facility] Comment on above: Order Comment: Speci men Type: BLOOD SPECIMENOrdering Facility: [facility] Address: [address] [place] [address] Performed By: #### 5 8410-2 ####[facility] [id number] [place] [id number] [place] THERAPY NTon 08-21-2022 THERAPY NT Normal [facility] THERAPY NT Normal [facility] NUTRITIONon 08-20-2022 NUTRITION Normal [facility] BRIEF OP NOTon 08-19-2022 BRIEF OP NOT Normal [facility] CONSULTon 08-19-2022 CONSULT Normal [facility] IR FILTER PLACEMENT IVCon IR FILTER PLACEMENT [facility]2022 PT ED Normal [facility] CASE MANAGEMon 08-18-2022 CASE MANAGEM Normal [facility] CBC W Auto Differential pane l (Bld)on 08-18-2022 Basophils (Bld) [#/Vol] 0.00 10*3/uL Normal <0.11 [facility] Comment on above: Order Comment: Speci men Type: BLOOD SPECIMENOrdering Facility: [facility] Address: [address] [place] [address] Performed By: #### 5 7021-8 ####[facility] LABCLIA [id number] [place] [address] [place] Basophils/100 WBC (Bld) 0.0 % [facility] Comment on above: Order Comment: Speci men Type: BLOOD SPECIMENOrdering Facility: [facility] Address: [address] [place] [address] Performed By: #### 5 7021-8 ####[facility] LABCLIA [id number] [place] [address] [place] Differential cell count method Nom (Bld) Manual Normal [facility] Comment on above: Order Comment: Speci men Type: BLOOD SPECIMENOrdering Facility: [facility] Address: [address] [place] [address] Performed By: #### 5 7021-8 ####[facility] LABCLIA [id number] [place] [address] [place] Eosinophils (Bld) [#/Vol] 0.00 10*3/uL Normal <0.46 [facility] Comment on above: Order Comment: Speci men Type: BLOOD SPECIMENOrdering Facility: [facility] Address: [address] [address] Performed By: #### 5 7021-8 ####[facility] LABCLIA [id number] [place] [address] [place] Eosinophils/100 WBC (Bld) 0.0 % Normal [facility] Comment on above: Order Comment: Speci men Type: BLOOD SPECIMENOrdering Facility: [facility] Address: [address] [place] [address] Performed By: #### 5 7021-8 ####[facility] LABCLIA [id number] [place] [address] [place] Erythrocyte distribution width (RBC) [Ratio] 12.3 % Normal 11.5-15.0 [facility] Comment on above: Order Comment: Speci men Type: BLOOD SPECIMENOrdering Facility: [facility] Address: [address] [place] [address] Performed By: #### 5 7021-8 ####[facility] LABIA [id number] [place] [address] [place] Hematocrit (Bld) [Volume fraction] 27.3 % Low 36.0-46.0 [facility] Comment on above: Order Comment: Speci men Type: BLOOD SPECIMENOrdering Facility: [facility] Address: [address] [place], [place] [address] Performed By: #### 5 7021-8 ####[facility] LABCLIA [id number] [place] [address] [place] Hemoglobin (Bld) [Mass/Vol] 9.4 g/dL Low 11.5-15.5 [facility] Comment on above: Order Comment: Speci men Type: BLOOD SPECIMENOrdering Facility: [facility] Address: [address] [place], [place] [address] Performed By: #### 5 7021-8 ####[facility] LABCLIA [id number] [place] [address] [place] Lymphocytes (Bld) [#/Vol] 1.02 10*3/uL Normal 1.00-4.00 [facility] Comment on above: Order Comment: Speci men Type: BLOOD SPECIMENOrdering Facility: [facility] Address: [address] [address] Performed By: #### 5 7021-8 ####[facility] LABCLIA [id number] [address] STATES OF [facility] Lymphocytes/100 WBC (Bld) 10.0 % Normal [facility] Comment on above: Order Comment: Speci men Type: BLOOD SPECIMENOrdering Facility: [facility] Address: [address] Performed By: #### 5 7021-8 ####[facility] LABCLIA [id number] [place] [address] [place] MCH (RBC) [Entitic mass] 29.7 pg Normal 26.0-34.0 [facility] Comment on above: Order Comment: Speci men Type: BLOOD SPECIMENOrdering Facility: [facility] Address: [address] Performed By: #### 5 7021-8 ####[facility] LABCLIA [id number] [address] [place] MCHC (RBC) [Mass/Vol] 34.4 g/dL Normal 30.5-36.0 [facility] Comment on above: Order Comment: Speci men Type: BLOOD SPECIMENOrdering Facility: [facility] Address: [address] [place] [address] Performed By: #### 5 7021-8 ####[facility] LABCLIA [id number] [place] [address] [place] MCV (RBC) [Entitic vol] 86.4 fL Normal 80.0-100.0 [facility] Comment on above: Order Comment: Speci men Type: BLOOD SPECIMENOrdering Facility: [facility] Address: [address] [place], [place] [address] Performed By: #### 5 7021-8 ####[facility] LABCLIA [id number] [place] [address] [place] Monocytes (Bld) [#/Vol] 0.71 10*3/uL Normal <0.87 [facility] Comment on above: Order Comment: Speci men Type: BLOOD SPECIMENOrdering Facility: [facility] Address: [address] [place] [address] Performed By: #### 5 7021-8 ####[facility] LABCLIA [id number] [place] [address] [place] Monocytes/100 WBC (Bld) 7.0 % Normal [facility] Comment on above: Order Comment: Speci men Type: BLOOD SPECIMENOrdering Facility: [facility] Address: [address] [place] [address] Performed By: #### 5 7021-8 ####[facility] LABCLIA [id number] [address] [place] MYELO% 2.0 % Normal [facility] Comment on above: Order Comment: Speci men Type: BLOOD SPECIMENOrdering Facility: [facility] Address: [address] [place] [address] Performed By: #### 5 7021-8 ####[facility] LABCLIA [id number] [place] [address] [place] Neutrophils (Bld) [#/Vol] 8.24 10*3/uL High 1.45-7.50 [facility] Comment on above: Order Comment: Speci men Type: BLOOD SPECIMENOrdering Facility: [facility] Address: [address] [place] [address] Performed By: #### 5 7021-8 ####[facility] LABCLIA [id number] [address] [place] Neutrophils/100 WBC (Bld) 81.0 % Normal [facility] Comment on above: Order Comment: Speci men Type: BLOOD SPECIMENOrdering Facility: [facility] Address: [address] Performed By: #### 5 7021-8 ####[facility] LABCLIA [id number] [address] STATES [facility] Nucleated RBC (Bld) [#/Vol] 10*3/uL Normal <0.01 [facility] Comment on above: Order Comment: Speci men Type: BLOOD SPECIMENOrdering Facility: [facility] Address: [address] Performed By: #### 5 7021-8 ####[facility] LABCLIA [id number] [place] [address] [place] Nucleated RBC/100 WBC (Bld) [Ratio] 0.0 /100 WBC Normal [facility] Comment on above: Order Comment: Speci men Type: BLOOD SPECIMENOrdering Facility: [facility] Address: [address] Performed By: #### 5 7021-8 ####[facility] LABCLIA [id number] [place] [address] [place] Ovalocytes LM Ql (Bld) Few Normal [facility] Comment on above: Order Comment: Speci men Type: BLOOD SPECIMENOrdering Facility: [facility] Address: [address] Performed By: #### 5 7021-8 ####[facility] LABCLIA [id number] [place] [address] [place] Platelet mean volume (Bld) [Entitic vol] 12.1 fL Normal 9.0-12.7 [facility] Comment on above: Order Comment: Speci men Type: BLOOD SPECIMENOrdering Facility: [facility] Address: [address] Performed By: #### 5 7021-8 ####[facility] LABCLIA [id number] [place] [address] [place] Platelets (Bld) [#/Vol] 132 10*3/uL Low 150-400 [facility] Comment on above: Order Comment: Speci men Type: BLOOD SPECIMENOrdering Facility: [facility] Address: [address] [place] [address] Performed By: #### 5 7021-8 ####[facility] LABCLIA [id number] [place] [address] [place] Platelets Estimate (Bld) [#/Vol] Decreased Normal [facility] Comment on above: Order Comment: Speci men Type: BLOOD SPECIMENOrdering Facility: [facility] Address: [address] [place], [place] [address] Performed By: #### 5 7021-8 ####[facility] LABIA [id number] [place] [address] [place] RBC (Bld) [#/Vol] 3.16 10*6/uL Low 3.90-5.20 [facility] Comment on above: Order Comment: Speci men Type: BLOOD SPECIMENOrdering Facility: [facility] Address: [address] [place], [place] [address] Performed By: #### 5 7021-8 ####[facility] LABIA [id number] [place] [address] [place] RED CELL MORPH Reviewed: see result s of individual morphologies Normal [facility] Comment on above: Order Comment: Speci men Type: BLOOD SPECIMENOrdering Facility: [facility] Address: [address] [place], [place] [address] Performed By: #### 5 7021-8 ####[facility] LABCLIA [id number] [place] [address] [place] WBC (Bld) [#/Vol] 10.17 10*3/uL Normal 3.70-11.00 [facility] Comment on above: Order Comment: Speci men Type: BLOOD SPECIMENOrdering Facility: [facility] Address: [address] [address] Performed By: #### 5 7021-8 ####[facility] LABIA [id number] [place] [address] [place] WBC Left Shift Ql (Bld) Present Normal [facility] Comment on above: Order Comment: Speci men Type: BLOOD SPECIMENOrdering Facility: [facility] Address: [address] [address] Performed By: #### 5 7021-8 ####[facility] [id number] [place] [address] [place] Magnesium SerPl-mCncon 08-18 Magnesium [Mass/Vol] 2.1 mg/dL Normal 1.7-2.3 [facility] Comment on above: Order Comment: Speci men Type: BLOOD SPECIMENOrdering Facility: [facility] Address: [address] [address] Performed By: #### 2 4362-6, 85434-6 ####[facility] [id number] [place] [address] [place] Platelets Auto (Bld) [#/Vol] on 08-18-2022 Platelets (Bld) [#/Vol] 161 10*3/uL Normal 150-400 [facility] Comment on above: Order Comment: Speci men Type: BLOOD SPECIMENOrdering Facility: [facility] Address: [address] Performed By: #### 7 77-3 ####[facility] LABIA [id number] [place] [address] [place] Renal function 2000 panelon 08-18-2022 Albumin [Mass/Vol] 3.3 g/dL Low 3.9-4.9 [facility] Comment on above: Order Comment: Speci men Type: BLOOD SPECIMENOrdering Facility: [facility] Address: [address] [place] [address] Performed By: #### 2 4362-6, ####[facility] LABCLIA [id number] [place] [address] [place] Anion gap [Moles/Vol] 9 mmol/L Normal 9-18 [facility] Comment on above: Order Comment: Speci men Type: BLOOD SPECIMENOrdering Facility: [facility] Address: [address] Performed By: #### 2 4362-6, ####[facility] LABCLIA [id number] [place] [address] [place] Calcium [Mass/Vol] 8.6 mg/dL Normal 8.5-10.2 [facility] Comment on above: Order Comment: Speci men Type: BLOOD SPECIMENOrdering Facility: [facility] Address: [address] Performed By: #### 2 436-6, ####[facility] LABCLIA [id number] [place] [address] [place] Chloride [Moles/Vol] 104 mmol/L Normal 97-105 [facility] Comment on above: Order Comment: Speci men Type: BLOOD SPECIMENOrdering Facility: [facility] Address: [address] [place] [address] Performed By: #### 2 4362-6, ####[facility] LABCLIA [id number] [place] [id number] [place] CO2 [Moles/Vol] 25 mmol/L Normal 22-30 [facility] Comment on above: Order Comment: Speci men Type: BLOOD SPECIMENOrdering Facility: [facility] Address: [address] Performed By: #### 2 4362-6, ####[facility] LABIA [id number] [address] [place] Creatinine [Mass/Vol] 0.50 mg/dL Low 0.58-0.96 [facility] Comment on above: Order Comment: Speci men Type: BLOOD SPECIMENOrdering Facility: [facility] Address: [address] [place] [address] Performed By: #### 2 4362-6, ####[facility] LABIA [id number] [place] [address] [place] [facility] ESTIMATED GLOMERULAR FILTRATION RATE 96 mL/min/1.73m??? Normal >=60 [facility] Comment on above: Order Comment: Speci men Type: BLOOD SPECIMENOrdering Facility: [facility] Address: [address] Result Comment: Kim mated Glomerular Filtration [...] actual GFR. Performed By: #### 2 4362-6, ####[facility] LABIA [id number] [place] [address] [place] Glucose [Mass/Vol] 109 mg/dL High 74-99 [facility] Comment on above: Order Comment: Speci men Type: BLOOD SPECIMENOrdering Facility: [facility] Address: [address] [place] [address] Result Comment: The [place] [employer] (ADA) provides guidance for cutoff [...] Standards of Medical Care in Diabetes 2016, [place] [employer]. Diabetes Care. 2016.39(Suppl 1). Performed By: #### 2 436-, ####[facility] LABCLIA [id number] [place] [address] [place] Phosphate [Mass/Vol] 2.4 mg/dL Low 2.7-4.8 [facility] Comment on above: Order Comment: Speci men Type: BLOOD SPECIMENOrdering Facility: [facility] Address: [address] [place] [address] Performed By: #### 2 4361-12, ####[facility] LABCLIA [id number] [place] [address] [place] Potassium [Moles/Vol] 3.6 mmol/L Low 3.7-5.1 [facility] Comment on above: Order Comment: Speci men Type: BLOOD SPECIMENOrdering Facility: [facility] Address: [address] Performed By: #### 2 43608-28, ####[facility] LABCLIA [id number] [place] [address] [place] Sodium [Moles/Vol] 138 mmol/L Normal 136-144 [facility] Comment on above: Order Comment: Speci men Type: BLOOD SPECIMENOrdering Facility: [facility] Address: [address] [place] [address] Performed By: #### 2 43608-28, ####[facility] LABCLIA [id number] [place] [id number] [place] Urea nitrogen [Mass/Vol] 19 mg/dL Normal 7-21 [facility] Comment on above: Order Comment: Speci men Type: BLOOD SPECIMENOrdering Facility: [facility] Address: [address] [place] [address] Performed By: #### 2 4362-6, 43516-6 ####[facility] LABCLIA [id number] [address] [place] THERAPY NTon 08-18-2022 THERAPY NT Normal [facility] THERAPY NT Normal [facility] US LEG VEIN DVT UNL VAS LABo n 08-18-2022 US LEG VEIN DVT UNL VAS LAB Normal [facility] CASE MANAGEMon 08-17-2022 CASE MANAGEM Normal [facility] CBC W Auto Differential pane l (Bld)on 08-17-2022 Differential cell count method Nom (Bld) Manual Normal [facility] Comment on above: Order Comment: Speci men Type: BLOOD SPECIMENOrdering Facility: [facility] Address: [address] [place], [place] [address] Performed By: #### 5 7021-8 ####[facility] LABCLIA [id number] [place] [address] [place] Erythrocyte distribution width (RBC) [Ratio] 12.2 % Normal 11.5-15.0 [facility] Comment on above: Order Comment: Speci men Type: BLOOD SPECIMENOrdering Facility: [facility] Address: [address] [place], [place] [address] Performed By: #### 5 7021-8 ####[facility] LABCLIA [id number] [place] [address] [place] Hematocrit (Bld) [Volume fraction] 27.7 % Low 36.0-46.0 [facility] Comment on above: Order Comment: Speci men Type: BLOOD SPECIMENOrdering Facility: [facility] Address: [address] Performed By: #### 5 7021-8 ####[facility] LABCLIA [id number] [place] [address] [place] Hemoglobin (Bld) [Mass/Vol] 9.4 g/dL Low 11.5-15.5 [facility] Comment on above: Order Comment: Speci men Type: BLOOD SPECIMENOrdering Facility: [facility] Address: [address] [place] [address] Performed By: #### 5 7021-8 ####[facility] LABCLIA [id number] [address] [place] Lymphocytes/100 WBC (Bld) 7.0 % Normal [facility] Comment on above: Order Comment: Speci men Type: BLOOD SPECIMENOrdering Facility: [facility] Address: [address] [place] [address] Performed By: #### 5 7021-8 ####[facility] LABIA [id number] [address] [place] MCH (RBC) [Entitic mass] 29.7 pg Normal 26.0-34.0 [facility] Comment on above: Order Comment: Speci men Type: BLOOD SPECIMENOrdering Facility: [facility] Address: [address] [place] [address] Performed By: #### 5 7021-8 ####[facility] LABIA [id number] [place] [address] [place] MCHC (RBC) [Mass/Vol] 33.9 g/dL Normal 30.5-36.0 [facility] Comment on above: Order Comment: Speci men Type: BLOOD SPECIMENOrdering Facility: [facility] Address: [address] [place], [place] [address] Performed By: #### 5 7021-8 ####[facility] LABIA [id number] [place] [address] [place] MCV (RBC) [Entitic vol] 87.4 fL Normal 80.0-100.0 [facility] Comment on above: Order Comment: Speci men Type: BLOOD SPECIMENOrdering Facility: [facility] Address: [address] Performed By: #### 5 7021-8 ####[facility] LABCLIA [id number] [place] [address] [place] Monocytes/100 WBC (Bld) 5.0 % Normal [facility] Comment on above: Order Comment: Speci men Type: BLOOD SPECIMENOrdering Facility: [facility] Address: [address] Performed By: #### 5 7021-8 ####[facility] LABCLIA [id number] [place] [address] [place] MYELO% 1.0 % Normal [facility] Comment on above: Order Comment: Speci men Type: BLOOD SPECIMENOrdering Facility: [facility] Address: [address] Performed By: #### 5 7021-8 ####[facility] LABCLIA [id number] [place] [address] [place] Neutrophils/100 WBC (Bld) 87.0 % Normal [facility] Comment on above: Order Comment: Speci men Type: BLOOD SPECIMENOrdering Facility: [facility] Address: [address] [place], [place] [address] Performed By: #### 5 7021-8 ####[facility] LABCLIA [id number] [place] [address] [place] Ovalocytes LM Ql (Bld) Few Normal [facility] Comment on above: Order Comment: Speci men Type: BLOOD SPECIMENOrdering Facility: [facility] Address: [address] Performed By: #### 5 7021-8 ####[facility] LABCLIA [id number] [place] [address] [place] Platelet mean volume (Bld) [Entitic vol] 12.0 fL Normal 9.0-12.7 [facility] Comment on above: Order Comment: Speci men Type: BLOOD SPECIMENOrdering Facility: [facility] Address: [address] [place] [address] Performed By: #### 5 7021-8 ####[facility] LABCLIA [id number] [place] [address] [place] Platelets (Bld) [#/Vol] 121 10*3/uL Low 150-400 [facility] Comment on above: Order Comment: Speci men Type: BLOOD SPECIMENOrdering Facility: [facility] Address: [address] [place] [address] Performed By: #### 5 7021-8 ####[facility] LABIA [id number] [place] [address] [place] Platelets Estimate (Bld) [#/Vol] Decreased Normal [facility] Comment on above: Order Comment: Speci men Type: BLOOD SPECIMENOrdering Facility: [facility] Address: [address] [place], [place] [address] Performed By: #### 5 7021-8 ####[facility] LABIA [id number] [place] [address] [place] RBC (Bld) [#/Vol] 3.17 10*6/uL Low 3.90-5.20 [facility] Comment on above: Order Comment: Speci men Type: BLOOD SPECIMENOrdering Facility: [facility] Address: [address] [place], [place] [address] Performed By: #### 5 7021-8 ####[facility] LABIA [id number] [place] [address] [place] RED CELL MORPH Reviewed: see result s of individual morphologies Normal [facility] Comment on above: Order Comment: Speci men Type: BLOOD SPECIMENOrdering Facility: [facility] Address: [address] [place] [place] [address] Performed By: #### 5 7021-8 ####[facility] LABIA [id number] [place] [address] [place] WBC (Bld) [#/Vol] 9.85 10*3/uL Normal 3.70-11.00 [facility] Comment on above: Order Comment: Speci men Type: BLOOD SPECIMENOrdering Facility: [facility] Address: [address] [place] [address] Performed By: #### 5 7021-8 ####[facility] LABIA [id number] [place] [address] [place] WBC Left Shift Ql (Bld) Present Normal [facility] Comment on above: Order Comment: Speci men Type: BLOOD SPECIMENOrdering Facility: [facility] Address: [address] [place] [address] Performed By: #### 5 7021-8 ####[facility] LABIA [id number] [place] [address] [place] Magnesium SerPl-mCncon 08-17 Magnesium [Mass/Vol] 2.3 mg/dL Normal 1.7-2.3 [facility] Comment on above: Order Comment: Speci men Type: BLOOD SPECIMENOrdering Facility: [facility] Address: [address] [place] [address] Performed By: #### 1 9123-9, 54062-7 ####[facility] LABIA [id number] [place] [address] [place] Renal function 2000 panelon 08-17-2022 Albumin [Mass/Vol] 3.3 g/dL Low 3.9-4.9 [facility] Comment on above: Order Comment: Speci men Type: BLOOD SPECIMENOrdering Facility: [facility] Address: [address] [place] [address], [place] [address] Performed By: #### 1 9123-9, 82706-9 ####[facility] LABCLIA [id number] [place] [address] [place] Anion gap [Moles/Vol] 8 mmol/L Low 9-18 [facility] Comment on above: Order Comment: Speci men Type: BLOOD SPECIMENOrdering Facility: [facility] Address: [address] Performed By: #### 1 9123-9, 83902-7 ####[facility] LABCLIA [id number] [place] [address] [place] Calcium [Mass/Vol] 8.7 mg/dL Normal 8.5-10.2 [facility] Comment on above: Order Comment: Speci men Type: BLOOD SPECIMENOrdering Facility: [facility] Address: [address] Performed By: #### 1 9123-9, 27333-5 ####[facility] LABCLIA [id number] [place] [address] [place] Chloride [Moles/Vol] 103 mmol/L Normal 97-105 [facility] Comment on above: Order Comment: Speci men Type: BLOOD SPECIMENOrdering Facility: [facility] Address: [address] [place] [address] Performed By: #### 1 9123-9, 29693-3 ####[facility] LABCLIA [id number] [place] [address] [place] CO2 [Moles/Vol] 27 mmol/L Normal 22-30 [facility] Comment on above: Order Comment: Speci men Type: BLOOD SPECIMENOrdering Facility: [facility] Address: [address] Performed By: #### 1 9123-9, 26691-9 ####[facility] LABCLIA [id number] [place] [address] [place] Creatinine [Mass/Vol] 0.62 mg/dL Normal 0.58-0.96 [facility] Comment on above: Order Comment: Kurt barraza Type: BLOOD SPECIMENOrdering Facility: [facility] Address: [address] [place] [address] Performed By: #### 1 9123-9, 63807-3 ####[facility] LABIA [id number] [address] OF [facility] ESTIMATED GLOMERULAR FILTRATION RATE 91 mL/min/1.73m??? Normal >=60 [facility] Comment on above: Order Comment: Kurt barraza Type: BLOOD SPECIMENOrdering Facility: [facility] Address: [address] [place] [address] Result Comment: Kim mated Glomerular Filtration Rate [...] actual GFR. Performed By: #### 1 9123-9, 79488-2 ####[facility] LABIA [id number] [place] [address] [place] Glucose [Mass/Vol] 133 mg/dL High 74-99 [facility] Comment on above: Order Comment: Kurt barraza Type: BLOOD SPECIMENOrdering Facility: [facility] Address: [address] [place] [address] Result Comment: [employer] [place] [employer] (ADA) provides guidance for cutoff [...] Standards of Medical Care in Diabetes 2016, [place] [employer]. Diabetes Care. 2016.39(Suppl 1). Performed By: #### 1 9123-9, ####[facility] LABCLIA [id number] [place] [address] [place] Phosphate [Mass/Vol] 2.8 mg/dL Normal 2.7-4.8 [facility] Comment on above: Order Comment: Speci men Type: BLOOD SPECIMENOrdering Facility: [facility] Address: [address] [address] Performed By: #### 1 9123-9, ####[facility] LABCLIA [id number] [place] [address] [place] Potassium [Moles/Vol] 3.7 mmol/L Normal 3.7-5.1 [facility] Comment on above: Order Comment: Speci men Type: BLOOD SPECIMENOrdering Facility: [facility] Address: [address] [address] Performed By: #### 1 9123-9, ####[facility] LABCLIA [id number] [place] [address] [place] Sodium [Moles/Vol] 138 mmol/L Normal 136-144 [facility] Comment on above: Order Comment: Speci men Type: BLOOD SPECIMENOrdering Facility: [facility] Address: [address] Performed By: #### 1 9123-9, ####[facility] LABCLIA [id number] [place] [id number] [place] Urea nitrogen [Mass/Vol] 17 mg/dL Normal 7-21 [facility] Comment on above: Order Comment: Speci men Type: BLOOD SPECIMENOrdering Facility: [facility] Address: [address] [place] [address] Performed By: #### 1 9123-9, 13293-4 ####[facility] LABCLIA [id number] [place] [address] [place] THERAPY NTon 08-17-2022 THERAPY NT Normal [facility] THERAPY NT Normal [facility] CBC W Auto Differential pane l (Bld)on 08-16-2022 Basophils (Bld) [#/Vol] 0.00 10*3/uL Normal <0.11 [facility] Comment on above: Order Comment: Speci men Type: BLOOD SPECIMENOrdering Facility: [facility] Address: [address] [place] [address] Performed By: #### 5 7021-8 ####[facility] LABCLIA [id number] [place] [address] [place] Basophils/100 WBC (Bld) 0.0 % Normal [facility] Comment on above: Order Comment: Speci men Type: BLOOD SPECIMENOrdering Facility: [facility] Address: [address] [place] [address] Performed By: #### 5 7021-8 ####[facility] LABCLIA [id number] [place] [address] [place] Differential cell count method Nom (Bld) Manual Normal [facility] Comment on above: Order Comment: Speci men Type: BLOOD SPECIMENOrdering Facility: [facility] Address: [address] [place] [address] Performed By: #### 5 7021-8 ####[facility] LABCLIA [id number] [place] [address] [place] Eosinophils (Bld) [#/Vol] 0.00 10*3/uL Normal <0.46 [facility] Comment on above: Order Comment: Speci men Type: BLOOD SPECIMENOrdering Facility: [facility] Address: [address] Performed By: #### 5 7021-8 ####[facility] LABCLIA [id number] [place] [address] [place] Eosinophils/100 WBC (Bld) 0.0 % Normal [facility] Comment on above: Order Comment: Speci men Type: BLOOD SPECIMENOrdering Facility: [facility] Address: [address] Performed By: #### 5 7021-8 ####[facility] LABCLIA [id number] [place] [address] [place] Erythrocyte distribution width (RBC) [Ratio] 12.4 % Normal 11.5-15.0 [facility] Comment on above: Order Comment: Speci men Type: BLOOD SPECIMENOrdering Facility: [facility] Address: [address] Performed By: #### 5 7021-8 ####[facility] LABCLIA [id number] [place] [address] [place] Hematocrit (Bld) [Volume fraction] 32.3 % Low 36.0-46.0 [facility] Comment on above: Order Comment: Speci men Type: BLOOD SPECIMENOrdering Facility: [facility] Address: [address] Performed By: #### 5 7021-8 ####[facility] LABCLIA [id number] [place] [address] [place] Hemoglobin (Bld) [Mass/Vol] 10.6 g/dL Low 11.5-15.5 [facility] Comment on above: Order Comment: Speci men Type: BLOOD SPECIMENOrdering Facility: [facility] Address: [address] Performed By: #### 5 7021-8 ####[facility] LABCLIA [id number] [place] [address] [place] Lymphocytes (Bld) [#/Vol] 0.83 10*3/uL Low 1.00-4.00 [facility] Comment on above: Order Comment: Speci men Type: BLOOD SPECIMENOrdering Facility: [facility] Address: [address] [place] [address] Performed By: #### 5 7021-8 ####[facility] LABCLIA [id number] [place] [address] [place] Lymphocytes/100 WBC (Bld) 6.0 % Normal [facility] Comment on above: Order Comment: Speci men Type: BLOOD SPECIMENOrdering Facility: [facility] Address: [address] [place] [address] Performed By: #### 5 7021-8 ####[facility] LABCLIA [id number] [place] [address] [place] MCH (RBC) [Entitic mass] 29.4 pg Normal 26.0-34.0 [facility] Comment on above: Order Comment: Speci men Type: BLOOD SPECIMENOrdering Facility: [facility] Address: [address] [place] [address] Performed By: #### 5 7021-8 ####[facility] LABIA [id number] [place] [address] [place] MCHC (RBC) [Mass/Vol] 32.8 g/dL Normal 30.5-36.0 [facility] Comment on above: Order Comment: Speci men Type: BLOOD SPECIMENOrdering Facility: [facility] Address: [address] [place], [place] [address] Performed By: #### 5 7021-8 ####[facility] LABCLIA [id number] [place] [address] [place] MCV (RBC) [Entitic vol] 89.5 fL Normal 80.0-100.0 [facility] Comment on above: Order Comment: Speci men Type: BLOOD SPECIMENOrdering Facility: [facility] Address: [address] Performed By: #### 5 7021-8 ####[facility] LABCLIA [id number] [place] [address] [place] Monocytes (Bld) [#/Vol] 1.10 10*3/uL High <0.87 [facility] Comment on above: Order Comment: Speci men Type: BLOOD SPECIMENOrdering Facility: [facility] Address: [address] Performed By: #### 5 7021-8 ####[facility] LABCLIA [id number] [place] [address] [place] Monocytes/100 WBC (Bld) 8.0 % Normal [facility] Comment on above: Order Comment: Speci men Type: BLOOD SPECIMENOrdering Facility: [facility] Address: [address] Performed By: #### 5 7021-8 ####[facility] LABCLIA [id number] [place] [address] [place] MYELO% 1.0 % Normal [facility] Comment on above: Order Comment: Speci men Type: BLOOD SPECIMENOrdering Facility: [facility] Address: [address] [place] [address] Performed By: #### 5 7021-8 ####[facility] LABCLIA [id number] [place] [address] [place] Neutrophils (Bld) [#/Vol] 11.70 10*3/uL High 1.45-7.50 [facility] Comment on above: Order Comment: Speci men Type: BLOOD SPECIMENOrdering Facility: [facility] Address: [address] Performed By: #### 5 7021-8 ####[facility] LABCLIA [id number] [place] [address] [place] Neutrophils/100 WBC (Bld) 85.0 % Normal [facility] Comment on above: Order Comment: Speci men Type: BLOOD SPECIMENOrdering Facility: [facility] Address: [address] [place] [address] Performed By: #### 5 7021-8 ####[facility] LABCLIA [id number] [place] [address] [place] Nucleated RBC (Bld) [#/Vol] 10*3/uL Normal <0.01 [facility] Comment on above: Order Comment: Speci men Type: BLOOD SPECIMENOrdering Facility: [facility] Address: [address] [place] [address] Performed By: #### 5 7021-8 ####[facility] LABCLIA [id number] [place] [address] [place] Nucleated RBC/100 WBC (Bld) [Ratio] 0.0 /100 WBC Normal [facility] Comment on above: Order Comment: Speci men Type: BLOOD SPECIMENOrdering Facility: [facility] Address: [address] [place], [place] [address] Performed By: #### 5 7021-8 ####[facility] LABCLIA [id number] [place] [address] [place] Ovalocytes LM Ql (Bld) Few Normal Cl [facility] Comment on above: Order Comment: Speci men Type: BLOOD SPECIMENOrdering Facility: [facility] Address: [address] [place], [place] [address] Performed By: #### 5 7021-8 ####[facility] LABIA [id number] [place] [address] [place] Platelet mean volume (Bld) [Entitic vol] 12.3 fL Normal 9.0-12.7 [facility] Comment on above: Order Comment: Speci men Type: BLOOD SPECIMENOrdering Facility: [facility] Address: [address] [place] [address] Performed By: #### 5 7021-8 ####[facility] LABCLIA [id number] [place] [address] [place] Platelets (Bld) [#/Vol] 137 10*3/uL Low 150-400 [facility] Comment on above: Order Comment: Speci men Type: BLOOD SPECIMENOrdering Facility: [facility] Address: [address] Performed By: #### 5 7021-8 ####[facility] LABCLIA [id number] [place] [address] [place] Platelets Estimate (Bld) [#/Vol] Decreased Normal [facility] Comment on above: Order Comment: Speci men Type: BLOOD SPECIMENOrdering Facility: [facility] Address: [address] Performed By: #### 5 7021-8 ####[facility] LABCLIA [id number] [place] [address] [place] Polychromasia LM Ql (Bld) Slight Normal [facility] Comment on above: Order Comment: Speci men Type: BLOOD SPECIMENOrdering Facility: [facility] Address: [address] [place] [address] Performed By: #### 5 7021-8 ####[facility] LABCLIA [id number] [place] [address] [place] RBC (Bld) [#/Vol] 3.61 10*6/uL Low 3.90-5.20 [facility] Comment on above: Order Comment: Speci men Type: BLOOD SPECIMENOrdering Facility: [facility] Address: [address] [place] [address] Performed By: #### 5 7021-8 ####[facility] LABCLIA [id number] [place] [address] [place] RED CELL MORPH Reviewed: see result s of individual morphologies Normal [facility] Comment on above: Order Comment: Speci men Type: BLOOD SPECIMENOrdering Facility: [facility] Address: [address] [place] [address] Performed By: #### 5 7021-8 ####[facility] LABCLIA [id number] [place] [address] [place] WBC (Bld) [#/Vol] 13.77 10*3/uL High 3.70-11.00 [facility] Comment on above: Order Comment: Speci men Type: BLOOD SPECIMENOrdering Facility: [facility] Address: [address] [place] [address] Performed By: #### 5 7021-8 ####[facility] LABCLIA [id number] [place] [address] [place] WBC Left Shift Ql (Bld) Present [facility] Comment on above: Order Comment: Speci men Type: BLOOD SPECIMENOrdering Facility: [facility] Address: [address] [place], [place] [address] Performed By: #### 5 7021-8 ####[facility] LABCLIA [id number] [place] [address] [place] Magnesium SerPl-mCncon 08-16 Magnesium [Mass/Vol] 2.4 mg/dL High 1.7-2.3 [facility] Comment on above: Order Comment: Speci men Type: BLOOD SPECIMENOrdering Facility: [facility] Address: [address] [place], [place] [address] Performed By: #### 1 9123-9, 37593-8 ####[facility] LABCLIA [id number] [place] [address] [place] Renal function 2000 panelon 08-16-2022 Albumin [Mass/Vol] 3.7 g/dL Low 3.9-4.9 [facility] Comment on above: Order Comment: Speci men Type: BLOOD SPECIMENOrdering Facility: [facility] Address: [address] [place] [address] Performed By: #### 1 9123-9, 83015-2 ####[facility] LABCLIA [id number] [place] [address] [place] Anion gap [Moles/Vol] 11 mmol/L Normal 9-18 [facility] Comment on above: Order Comment: Speci men Type: BLOOD SPECIMENOrdering Facility: [facility] Address: [address] [place] [address] Performed By: #### 1 9123-9, 52384-2 ####[facility] LABCLIA [id number] [place] [address] [place] Calcium [Mass/Vol] 9.0 mg/dL Normal 8.5-10.2 [facility] Comment on above: Order Comment: Speci men Type: BLOOD SPECIMENOrdering Facility: [facility] Address: [address] [place], [place] [address] Performed By: #### 1 9123-9, 66622-6 ####[facility] LABCLIA [id number] [place] [address] [place] Chloride [Moles/Vol] 101 mmol/L Normal 97-105 [facility] Comment on above: Order Comment: Speci men Type: BLOOD SPECIMENOrdering Facility: [facility] Address: [address] [place], [place] [address] Performed By: #### 1 9123-9, 61326-6 ####[facility] LABCLIA [id number] [place] [address] [place] CO2 [Moles/Vol] 22 mmol/L Normal 22-30 [facility] Comment on above: Order Comment: Speci men Type: BLOOD SPECIMENOrdering Facility: [facility] Address: [address] [address] Performed By: #### 1 9123-9, 62814-2 ####[facility] LABCLIA [id number] [place] [address] [place] Creatinine [Mass/Vol] 0.62 mg/dL Normal 0.58-0.96 [facility] Comment on above: Order Comment: Speci men Type: BLOOD SPECIMENOrdering Facility: [facility] Address: [address] [place] [address] Performed By: #### 1 9123-9, 53280-2 ####[facility] LABIA [id number] [place] [address] [place] ESTIMATED GLOMERULAR FILTRATION RATE 91 mL/min/1.73m??? Normal >=60 [facility] Comment on above: Order Comment: Speci men Type: BLOOD SPECIMENOrdering Facility: [facility] Address: [address] [place] [address] Result Comment: Kim mated Glomerular Filtration Rate [...] actual GFR. Performed By: #### 1 9123-9, 52115-2 ####[facility] LABIA [id number] [place] [address] [place] Glucose [Mass/Vol] 107 mg/dL High 74-99 [facility] Comment on above: Order Comment: Speci men Type: BLOOD SPECIMENOrdering Facility: [facility] Address: [address] [place] [address] Result Comment: The [place] [employer] (ADA) provides guidance for cutoff [...] Standards of Medical Care in Diabetes 2016, [place] [employer]. Diabetes Care. 2016.39(Suppl 1). Performed By: #### 1 9123-9, 04888-0 ####[facility] LABCLIA [id number] [place] [address] [place] Phosphate [Mass/Vol] 2.5 mg/dL Low 2.7-4.8 [facility] Comment on above: Order Comment: Speci men Type: BLOOD SPECIMENOrdering Facility: [facility] Address: [address] [place] [address] Performed By: #### 1 91239, ####[facility] LABCLIA [id number] [place] [address] [place] Potassium [Moles/Vol] 3.7 mmol/L Normal 3.7-5.1 [facility] Comment on above: Order Comment: Speci men Type: BLOOD SPECIMENOrdering Facility: [facility] Address: [address] Performed By: #### 1 91239, ####[facility] LABCLIA [id number] [place] [address] [place] Sodium [Moles/Vol] 134 mmol/L Low 136-144 [facility] Comment on above: Order Comment: Speci men Type: BLOOD SPECIMENOrdering Facility: [facility] Address: [address] Performed By: #### 1 91239, 03428-4 ####[facility] LABCLIA [id number] [place] [address] [place] Urea nitrogen [Mass/Vol] 17 mg/dL Normal 7-21 [facility] Comment on above: Order Comment: Speci men Type: BLOOD SPECIMENOrdering Facility: [facility] Address: [address] [address] Performed By: #### 1 9123-9, 43793-6 ####[facility] [id number] [place] [address] [place] THERAPY NTon 08-16-2022 THERAPY NT Normal [facility] NT Normal [facility] THERAPY NT Normal [facility] ALLIED HEALTHon 08-15-2022 ALLIED HEALTH Normal [facility] ANES POSTPROC EVALon 023 ANES POSTPROC EVAL Normal [facility] CASE MGT INIT ASSESon 2022 CASE MGT INIT ASSES Normal [facility] MRI BRAIN WO/W IVCONon 08-15 MRI BRAIN WO/W IVCON Normal [facility] THERAPY NTon 08-15-2022 THERAPY NT Normal [facility] NT Normal [facility] ANES PRE-OPon 08-14-2022 ANES PRE-OP Normal [facility] ARTERIAL BLOOD GASESon 08-14 Base deficit (BldA) [Moles/Vol] -1 mmol/L Normal -2-0 [facility] Comment on above: Order Comment: Speci men Type: ARTERIAL BLOOD SPECIMENOrdering Facility: [facility] Address: [address] [id number] Performed By: #### A LLBG ####[facility] LABIA [id number] [place] [address] [place] Calcium.ionized (Bld) [Mass/Vol] 1.05 mmol/L Low 1.08-1.30 [facility] Comment on above: Order Comment: Speci men Type: ARTERIAL BLOOD SPECIMENOrdering Facility: [facility] Address: [address] [address] Performed By: #### A LLBG ####[facility] [id number] [place] [address] [place] Calcium.ionized adjusted to pH 7.4 (BldA) [Moles/Vol] 1.07 mmol/L Low 1.08-1.30 [facility] Comment on above: Order Comment: Speci men Type: ARTERIAL BLOOD SPECIMENOrdering Facility: [facility] Address: [address] [address] Performed By: #### A LLBG ####[facility] [id number] [place] [address] [place] Carboxyhemoglobin (BldA) [Mass fraction] 1.3 % Normal 0.0-2.0 [facility] Comment on above: Order Comment: Speci men Type: ARTERIAL BLOOD SPECIMENOrdering Facility: [facility] Address: [address] [address] Result Comment: Carb oxyhemoglobin Reference Range for Smokers: 2.0-8.0% Performed By: #### A LLBG ####[facility] [id number] [place] [address] [place] CO2 (Bld) [Partial pressure] 33 mm Hg Low 36-46 [facility] Comment on above: Order Comment: Speci men Type: ARTERIAL BLOOD SPECIMENOrdering Facility: [facility] Address: [address] Performed By: #### A LLBG ####[facility] [id number] [place] [address] [place] CO2 [Moles/Vol] 23 mmol/L Normal 22-28 [facility] Comment on above: Order Comment: Speci men Type: ARTERIAL BLOOD SPECIMENOrdering Facility: [facility] Address: [address] Performed By: #### A LLBG ####[facility] LABCLIA [id number] [place] [address] [place] CO2 adjusted to patient's actual temperature (Bld) [Partial pressure] 33 mmHg Low 36-46 [facility] Comment on above: Order Comment: Speci men Type: ARTERIAL BLOOD SPECIMENOrdering Facility: [facility] Address: [address] [place] [address] Performed By: #### A LLBG ####[facility] LABCLIA [id number] [place] [address] [place] Glucose [Mass/Vol] 138 mg/dL High 60-105 [facility] Comment on above: Order Comment: Speci men Type: ARTERIAL BLOOD SPECIMENOrdering Facility: [facility] Address: [address] [place] [address] Performed By: #### A LLBG ####[facility] LABCLIA [id number] [place] [address] [place] HCO3 (Bld) [Moles/Vol] 22 mmol/L Normal 22-26 [facility] Comment on above: Order Comment: Speci men Type: ARTERIAL BLOOD SPECIMENOrdering Facility: [facility] Address: [address] [place], [place] [address] Performed By: #### A LLBG ####[facility] LABCLIA [id number] [place] [address] [place] Hematocrit (Bld) [Volume fraction] 37.6 % Normal 36.0-46.0 [facility] Comment on above: Order Comment: Speci men Type: ARTERIAL BLOOD SPECIMENOrdering Facility: [facility] Address: [address] [place], [place] [address] Performed By: #### A LLBG ####[facility] LABCLIA [id number] [place] [address] [place] Hemoglobin (Bld) [Mass/Vol] 12.2 g/dL Normal 11.5-15.5 [facility] Comment on above: Order Comment: Speci men Type: ARTERIAL BLOOD SPECIMENOrdering Facility: [facility] Address: [address] [place], [place] [address] Performed By: #### A LLBG ####[facility] LABCLIA [id number] [place] [address] [place] Lactate [Moles/Vol] 1.8 mmol/L Normal 0.5-2.2 [facility] Comment on above: Order Comment: Speci men Type: ARTERIAL BLOOD SPECIMENOrdering Facility: [facility] Address: [address] [place], [place] [address] Performed By: #### A LLBG ####[facility] LABCLIA [id number] [address] [place] Methemoglobin (Bld) [Mass fraction] 0.7 % Normal 0.0-1.5 [facility] Comment on above: Order Comment: Speci men Type: ARTERIAL BLOOD SPECIMENOrdering Facility: [facility] Address: [address] [place], [place] [address] Performed By: #### A LLBG ####[facility] LABCLIA [id number] [address] [place] Oxygen (Bld) [Partial pressure] 183 mm Hg High 85-95 [facility] Comment on above: Order Comment: Speci men Type: ARTERIAL BLOOD SPECIMENOrdering Facility: [facility] Address: [address] Performed By: #### A LLBG ####[facility] LABCLIA [id number] [place] [address] [place] Oxygen adjusted to patient's actual temperature (Bld) [Partial pressure] 183 mmHg High 85-95 [facility] Comment on above: Order Comment: Speci men Type: ARTERIAL BLOOD SPECIMENOrdering Facility: [facility] Address: [address] [place] [address] Performed By: #### A LLBG ####[facility] LABCLIA [id number] [place] [address] [place] Oxyhemoglobin (BldA) [Mass fraction] 98 % Normal 95-98 [facility] Comment on above: Order Comment: Speci men Type: ARTERIAL BLOOD SPECIMENOrdering Facility: [facility] Address: [address] [place], [place] [address] Performed By: #### A LLBG ####[facility] LABCLIA [id number] [place] [address] [place] pH (Bld) 7.44 [pH] Normal 7.35-7.45 [facility] Comment on above: Order Comment: Speci men Type: ARTERIAL BLOOD SPECIMENOrdering Facility: [facility] Address: [address] [place], [place] [address] Performed By: #### A LLBG ####[facility] LABIA [id number] [place] [address] [place] pH adjusted to patient's actual temperature (Bld) 7.44 Normal 7.35-7.45 [facility] Comment on above: Order Comment: Speci men Type: ARTERIAL BLOOD SPECIMENOrdering Facility: [facility] Address: [address] [place], [place] [address] Performed By: #### A LLBG ####[facility] LABCLIA [id number] [place] [address] [place] Potassium [Moles/Vol] 3.5 mmol/L Normal 3.5-5.0 [facility] Comment on above: Order Comment: Speci men Type: ARTERIAL BLOOD SPECIMENOrdering Facility: [facility] Address: [address] [place], [place] [address] Performed By: #### A LLBG ####[facility] LABIA [id number] [place] [address] [place] Sodium [Moles/Vol] 139 mmol/L Normal 136-144 [facility] Comment on above: Order Comment: Speci men Type: ARTERIAL BLOOD SPECIMENOrdering Facility: [facility] Address: [address] [place] [address] Performed By: #### A LLBG ####[facility] LABCLIA [id number] [place] [address] [place] ARTERIAL BLOOD GASES WITH IO NIZED MAGNESIUMon 08-14-2022 Base excess Calc (Bld) [Moles/Vol] 0 mmol/L Normal 0-2 [facility] Comment on above: Order Comment: Speci men Type: ARTERIAL BLOOD SPECIMENOrdering Facility: [facility] Address: [address] [place], [place] [address] Performed By: #### A LLMG ####[facility] LABIA [id number] [address] [place] Calcium.ionized (Bld) [Mass/Vol] 1.14 mmol/L Normal 1.08-1.30 [facility] Comment on above: Order Comment: Speci men Type: ARTERIAL BLOOD SPECIMENOrdering Facility: [facility] Address: [address] [place] [address] Performed By: #### A LLMG ####[facility] LABIA [id number] [address] [place] Calcium.ionized adjusted to pH 7.4 (BldA) [Moles/Vol] 1.18 mmol/L Normal 1.08-1.30 [facility] Comment on above: Order Comment: Speci men Type: ARTERIAL BLOOD SPECIMENOrdering Facility: [facility] Address: [address] [place], [place] [address] Performed By: #### A LLMG ####[facility] LABCLIA [id number] [place] [address] [place] Carboxyhemoglobin (BldA) [Mass fraction] 1.3 % Normal 0.0-2.0 [facility] Comment on above: Order Comment: Speci men Type: ARTERIAL BLOOD SPECIMENOrdering Facility: [facility] Address: [address] [address] Result Comment: Carb oxyhemoglobin Reference Range for Smokers: 2.0-8.0% Performed By: #### A LLMG ####[facility] LABCLIA [id number] [place] [address] [place] CO2 (Bld) [Partial pressure] 31 mm Hg Low 36-46 [facility] Comment on above: Order Comment: Speci men Type: ARTERIAL BLOOD SPECIMENOrdering Facility: [facility] Address: [address] [place] [address] Performed By: #### A LLMG ####[facility] LABCLIA [id number] [place] [address] [place] CO2 [Moles/Vol] 23 mmol/L Normal 22-28 [facility] Comment on above: Order Comment: Speci men Type: ARTERIAL BLOOD SPECIMENOrdering Facility: [facility] Address: [address] [place] [address] Performed By: #### A LLMG ####[facility] LABCLIA [id number] [place] [address] [place] CO2 adjusted to patient's actual temperature (Bld) [Partial pressure] 31 mmHg Low 36-46 [facility] Comment on above: Order Comment: Speci men Type: ARTERIAL BLOOD SPECIMENOrdering Facility: [facility] Address: [address] [address] Performed By: #### A LLMG ####[facility] LABCLIA [id number] [place] [address] [place] Glucose [Mass/Vol] 133 mg/dL High 60-105 [facility] Comment on above: Order Comment: Speci men Type: ARTERIAL BLOOD SPECIMENOrdering Facility: [facility] Address: [address] [address] Performed By: #### A LLMG ####[facility] LABCLIA [id number] [place] [address] [place] HCO3 (Bld) [Moles/Vol] 22 mmol/L Normal 22-26 [facility] Comment on above: Order Comment: Speci men Type: ARTERIAL BLOOD SPECIMENOrdering Facility: [facility] Address: [address] [place], [place] [address] Performed By: #### A LLMG ####[facility] LABCLIA [id number] [place] [address] [place] Hematocrit (Bld) [Volume fraction] 41.3 % Normal 36.0-46.0 [facility] Comment on above: Order Comment: Speci men Type: ARTERIAL BLOOD SPECIMENOrdering Facility: [facility] Address: [address] [place], [place] [address] Performed By: #### A LLMG ####[facility] LABIA [id number] [place] [address] [place] Hemoglobin (Bld) [Mass/Vol] 13.4 g/dL Normal 11.5-15.5 [facility] Comment on above: Order Comment: Speci men Type: ARTERIAL BLOOD SPECIMENOrdering Facility: [facility] Address: [address] Performed By: #### A LLMG ####[facility] LABCLIA [id number] [place] [address] [place] Lactate [Moles/Vol] 1.4 mmol/L Normal 0.5-2.2 [facility] Comment on above: Order Comment: Speci men Type: ARTERIAL BLOOD SPECIMENOrdering Facility: [facility] Address: [address] Performed By: #### A LLMG ####[facility] LABCLIA [id number] [address] [id number] [address] [place] Magnesium [Moles/Vol] 0.77 mmol/L High 0.45-0.60 [facility] Comment on above: Order Comment: Speci men Type: ARTERIAL BLOOD SPECIMENOrdering Facility: [facility] Address: [address] [place], [place] [address] Performed By: #### A LLMG ####[facility] LABCLIA [id number] [place] [address] [place] Methemoglobin (Bld) [Mass fraction] 1.0 % Normal 0.0-1.5 [facility] Comment on above: Order Comment: Speci men Type: ARTERIAL BLOOD SPECIMENOrdering Facility: [facility] Address: [address] [place], [place] [address] Performed By: #### A LLMG ####[facility] LABCLIA [id number] [place] [address] [place] Oxygen (Bld) [Partial pressure] 143 mm Hg High 85-95 [facility] Comment on above: Order Comment: Speci men Type: ARTERIAL BLOOD SPECIMENOrdering Facility: [facility] Address: [address] [place], [place] [address] Performed By: #### A LLMG ####[facility] LABCLIA [id number] [place] [address] [place] Oxygen adjusted to patient's actual temperature (Bld) [Partial pressure] 143 mmHg High 85-95 [facility] Comment on above: Order Comment: Speci men Type: ARTERIAL BLOOD SPECIMENOrdering Facility: [facility] Address: [address] [place], [place] [address] Performed By: #### A LLMG ####[facility] LABCLIA [id number] [place] [address] [place] Oxyhemoglobin (BldA) [Mass fraction] 97 % Normal 95-98 [facility] Comment on above: Order Comment: Speci men Type: ARTERIAL BLOOD SPECIMENOrdering Facility: [facility] Address: [address] Performed By: #### A LLMG ####[facility] LABCLIA [id number] [place] [address] [place] pH (Bld) 7.47 [pH] High 7.35-7.45 [facility] Comment on above: Order Comment: Speci men Type: ARTERIAL BLOOD SPECIMENOrdering Facility: [facility] Address: [address] Performed By: #### A LLMG ####[facility] LABIA [id number] [place] [address] [place] pH adjusted to patient's actual temperature (Bld) 7.47 High 7.35-7.45 [facility] Comment on above: Order Comment: Speci men Type: ARTERIAL BLOOD SPECIMENOrdering Facility: [facility] Address: [address] [place], [place] [address] Performed By: #### A LLMG ####[facility] LABIA [id number] [place] [address] [place] Potassium [Moles/Vol] 3.0 mmol/L Low 3.5-5.0 [facility] Comment on above: Order Comment: Speci men Type: ARTERIAL BLOOD SPECIMENOrdering Facility: [facility] Address: [address] [place], [place] [address] Performed By: #### A LLMG ####[facility] LABCLIA [id number] [place] [address] [place] Sodium [Moles/Vol] 140 mmol/L Normal 136-144 [facility] Comment on above: Order Comment: Speci men Type: ARTERIAL BLOOD SPECIMENOrdering Facility: [facility] Address: [address] [place], [place] [address] Performed By: #### A LLMG ####[facility] LABCLIA [id number] [place] [address] [place] Basic metabolic 2000 panelon 08-14-2022 Anion gap [Moles/Vol] 9 mmol/L Normal 9-18 [facility] Comment on above: Order Comment: Speci men Type: BLOOD SPECIMENOrdering Facility: [facility] Address: [address] [place] [address] Performed By: #### 2 4321-2 ####[facility] LABCLIA [id number] [place] [address] [place] Calcium [Mass/Vol] 8.0 mg/dL Low 8.5-10.2 [facility] Comment on above: Order Comment: Speci men Type: BLOOD SPECIMENOrdering Facility: [facility] Address: [address] [place] [address] Performed By: #### 2 4321-2 ####[facility] LABCLIA [id number] [place] [address] [place] Chloride [Moles/Vol] 110 mmol/L High 97-105 [facility] Comment on above: Order Comment: Speci men Type: BLOOD SPECIMENOrdering Facility: [facility] Address: [address] [place], [place] [address] Performed By: #### 2 4321-2 ####[facility] LABCLIA [id number] [place] [address] [place] CO2 [Moles/Vol] 22 mmol/L Normal 22-30 [facility] Comment on above: Order Comment: Speci men Type: BLOOD SPECIMENOrdering Facility: [facility] Address: [address] [place], [place] [address] Performed By: #### 2 4321-2 ####[facility] LABCLIA [id number] [place] [address] [place] Creatinine [Mass/Vol] 0.67 mg/dL Normal 0.58-0.96 [facility] Comment on above: Order Comment: Speci men Type: BLOOD SPECIMENOrdering Facility: [facility] Address: [address] [address] Performed By: #### 2 4321-2 ####[facility] LABIA [id number] [place] [address] [place] ESTIMATED GLOMERULAR FILTRATION RATE 89 mL/min/1.73m??? Normal >=60 [facility] Comment on above: Order Comment: Kurt men Type: BLOOD SPECIMENOrdering Facility: [facility] Address: [address] [address] Result Comment: Kim mated Glomerular Filtration Rate [...] actual GFR. Performed By: #### 2 4321-2 ####[facility] LABCLIA [id number] [place] [address] [place] Glucose [Mass/Vol] 152 mg/dL High 74-99 [facility] Comment on above: Order Comment: Kurt barraza Type: BLOOD SPECIMENOrdering Facility: [facility] Address: [address] [place] [address] Result Comment: The [place] [employer] (ADA) provides guidance for cutoff [...] Standards of Medical Care in Diabetes 2016, [place] [employer]. Diabetes Care. 2016.39(Suppl 1). Performed By: #### 2 4321-2 ####[facility] LABCLIA [id number] [place] [address] [place] Potassium [Moles/Vol] 3.8 mmol/L Normal 3.7-5.1 [facility] Comment on above: Order Comment: Speci men Type: BLOOD SPECIMENOrdering Facility: [facility] Address: [address] [place] [address] Performed By: #### 2 4321-2 ####[facility] LABCLIA [id number] [place] [address] [place] Sodium [Moles/Vol] 141 mmol/L Normal 136-144 [facility] Comment on above: Order Comment: Speci men Type: BLOOD SPECIMENOrdering Facility: [facility] Address: [address] [place] [address] Performed By: #### 2 4321-2 ####[facility] LABCLIA [id number] [place] [address] [place] Urea nitrogen [Mass/Vol] 20 mg/dL Normal 7-21 [facility] Comment on above: Order Comment: Speci men Type: BLOOD SPECIMENOrdering Facility: [facility] Address: [address] [place] [address] Performed By: #### 2 4321-2 ####[facility] LABCLIA [id number] [place] [address] [place] FISH FOR 1P/19Qon 08-14-2022 FISH FOR 1P/19Q FISH for 1p/19q Normal [facility] Comment on above: Order Comment: Speci men Type: TISSUE SPECIMENOrdering Facility: [facility] Address: [address] [place] [address] Result Comment: Tiffany coffey Accession Number: [id number]: [id number]: [id number] Type: FFPETSample Description: BRAIN, RIGHT PARIETAL LESIONReceived Date: 2022-08-17 14:08:38RESULTS:Chromosome 1p: INTACT, EUSOMICChromosome 19q: INTACT, EUSOMICQuantitative FISH results:Number of nuclei scored: 401p36: 2.731q25: 2.481p36/1q25 ratio: 1.10 (Reference Range: Intact > 0.75; Loss < or =0.75)Number of nuclei scored: 2392t80: 2.3161r09: 2.5055f72/19p13 ratio: 0.98 (Reference Range: Intact > 0.75; Loss < or= 0.75)INTERPRETATION:A majority of nuclei showed similar numbers of 1p36 and 1q25 signals.There is no evidence of allelic loss on the short arm of chromosome 1(1p).A majority of nuclei showed similar numbers of 19q13 and 22p35xsxivzw. There is no evidence of allelic loss [...] developed and its performance characteristics determinedby the [facility] [place] ([facility]). It has not been cleared or approved bythe FDA. [facility] is regulated under CLIA as qualified to perform high-complexity testing. This test is used for clinical purposes. It shouldnot be regarded as investigational or for research.Interpretation performed at [facility], [address] [place] [address]. CLIA Number: [id number] reviewed by Abhay Lai MD, PhD Performed By: #### M GMT, IDH12G, 1P19Q, EGFRF ####[facility] LIMSCLIA [id number] [place] [address] [place]#### S ####[facility] LABCLIA [id number] [address] [place] FISH FOR EGFRon 08-14-2022 FISH FOR EGFR FISH for EGFR [facility] Comment on above: Order Comment: Speci men Type: TISSUE SPECIMENOrdering Facility: [facility] Address: [address] [id number] Result Comment: Tiffany coffey Accession Number: [id number]: [id number]: [id number] Type: FFPETSample Description: BRAIN, RIGHT PARIETAL LESIONReceived [...] developed and its performance characteristics determinedby the [facility]ology [facility] LaboratoryMed[facility] [place] ([facility]). It has not been cleared or approved bythe FDA. [facility] is regulated under CLIA as qualified to perform high-complexity testing. This test is used for clinical purposes. It shouldnot be regarded as investigational or for research.Interpretation performed at [facility], [address] [place], [place] [address]. CLIA Number: [id number] reviewed by Abhay Lai MD, PhD Performed By: #### M GMT, IDH12G, 1P19Q, EGFRF ####[facility] [id number] [address] [address] [place]#### S ####[facility] LABCLIA [id number] [address] IDH1 AND IDH2 GENE ANALYSISo n 08-14-2022 IDH1 AND IDH2 GENE ANALYSIS Normal [facility] Comment on above: Order Comment: Speci men Type: TISSUE SPECIMENOrdering Facility: [facility] Address: [address] [place] [address] Result Comment: IDH1 and IDH2 Gene AnalysisLaboratory Accession Number: [id number] #: [id number] #: [id number] Type: FFPET% Tumor: 70Result:IDH1 - No variant detected [Reference sequence: ([id number])].IDH2 - No variant detected [Reference sequence: ([id number])].Interpretation:No cancer-related sequence changes were identified in IDH1 codon 132,IDH2 codon 172 or other mutation hotspots within the IDH1 or TFQ6uvhmh.IDH1 (isocitrate dehydrogenase 1 (NADP+)) is a cytosolic andperoxisomal obligate homodimer that catalyzes the oxidativedecarboxylation of isocitrate to alpha-ketoglutarate, using NADP+ as acofactor. Heterozygous mutations in IDH1 codon 132 in exon 4 convertalpha-ketoglutarate to the oncogenic metabolite (D)-2-hydroxyglutarate(2-HG). The accumulation of 2-HG is believed to induce a block incellular differentiation through epigenetic modification, contributingto tumor initiation and progression. IDH1 is mutated in sbvrbhnibqofb81-01 % of grade II and III diffuse gliomas and secondaryglioblastomas, but only about 5 % of primary glioblastomas. The B999Hvgeonkiv produces a substitution of histidine for arginine at fsqxgekv005, and accounts for 80-90% of IDH1 mutations in glioma. IDH1 mutations serve as pathologic markers of low [...] 2012;103:269-273; Paula, Juan V,et al. PLoS One 2015;10:h2748509; Kasia MS, Suad , Garrett H. Neuro-Oncol [...] R172M(c.515G>T) mutation substitutes methionine for arginine at hexingic786, and represents approximately 23% of IDH2 mutations. [...] 2012;103:269-273; Paula, Juan V,et al. PLoS One 2015;10:[id number]; Kasia MS, Suad BH, Garrett H. Neuro-Oncol 2016;18:16-26.)Methodology:Following extraction of tumor DNA from microdissected FFPE, FNA, andCB specimens and library construction utilizing the custom CancerVoxbone Panel v.1 ([employer], [place], [place]), DNAsequencing of gene mutation hotspot regions was performed on the [employer] ([employer], [place], [place]). Isis Biopolymer software ([employer],[place], [place]) was used to analyze FASTQ files [...] was developed and its performance characteristics determinedby [facility]Med[facility] [place] ([facility]). It has not been cleared or approved bythe FDA. -[facility] is regulated under CLIA as certified to perform high-complexity testing. This test is used for clinical purposes. It shouldnot be regarded as investigational or for research.Testing and interpretation performed at [facility], [address] [place] [address]. CLIA Number: [id number] reviewed by Sydnee Eng, PhD, FAC Performed By: #### M GMT, IDH12G, 1P19Q, EGFRF ####[facility] LIMSCLIA [id number] [address] [place] [id number] [place]#### S ####[facility] LABCLIA [id number] [address] [id number] [place] MGMT PROMOTER METHYLATIONon 08-14-2022 MGMT METHYLATION Normal [facility] Comment on above: Order Comment: Speci men Type: TISSUE SPECIMENOrdering Facility: [facility] Address: [address] [id number] Result Comment: MGMT MethylationLaboratory Accession Number: [id number] #: [id number] #: [id number]% Tumor: 70Result:Hypermethylated (The mean methylation [...] pyrosequencing of the amplicons using the Qiagen Mertado instrument ([employer],[place]). The mean percentage methylation iscalculated and used to determine methylation status.References:1) Maeve Kramer, et al. Clinical Neuropathology practice guide 5-2015:MGMT methylation pyrosequencing in glioblastoma: unresolved issues andopen questions. Clin Neuropathol 2015;34:250-57.2) Maynor VT, et al. The correlation and prognostic significance of MGMTpromoter methylation and MGMT protein in glioblastomas. Ijllirqsddrn6271;65:866-75.3) Damián J, et al. Extent of MGMT promoter methylation correlates withoutcome in glioblastomas given temozolomide and radiotherapy. Br JCancer 2009;101:124-31.4) Halima Kramer, et al. Inactivation of the DNA-repair gene MGMT and theclinical response of gliomas to alkylating agents. N Engl J Zhi8311;343:1350-4.5) Joe G, et al. Temozolomide in Elderly Patients With NewlyDiagnosed Glioblastoma and Poor Performance Status: An ANOCEF Phase IITrail. J. Clin Oncol 2011;29:3050-55.6) Juan Huston, et al. Comparative assessment of 5 methods(Methylation-specific polymerase chain reaction, MethyLight,Pyrosequencing, Methylation-sensative high-resolution meltin, andimmunohistochemistry to analyze E3-zlhkfsohzrsjt-JMZ-methyltransferasein a series of 100 glioblastoma patients. Cancer 2012;118:4201-11.7) Juan Huston, et al. Outcome-based determination of optimalpyrosequencing assay for MGMT methylation detection in glioblastomapatients. J Neurooncol 2014;116:487-96.Disclaimer:This test was developed and its performance characteristics determinedby [facility] LaboratoryMed[facility] [place] ([facility]). It has not been cleared or approved bythe FDA. [facility] is regulated under CLIA as certified to perform high-complexity testing. This test is used for clinical purposes. It shouldnot be regarded as investigational or for research.Testing and interpretation performed at [facility], [address] [place] [address]. CLIA Number: [id number] reviewed by Sandee Navarrete, PhD, [facility] Performed By: #### M GMT, IDH12G, 1P19Q, EGFRF ####[facility] LIMSCLIA [id number] [address] [place]#### S ####[facility] LABCLIA [id number] [address] [place] MRI BRAIN INTRAOP WO/W IVCON on 08-14-2022 MRI BRAIN INTRAOP WO/W IVCON Normal [facility] MRI BRAIN LOCAL WO/W IVCONon 08-14-2022 MRI BRAIN LOCAL WO/W IVCON Normal [facility] NURSING PROGon 08-14-2022 NURSING PROG Normal [facility] OPERATIVE NOon 08-14-2022 OPERATIVE NO Normal [facility] SURGICAL PATHOLOGYon 023 ADDENDUM 1: Normal [facility] Comment on above: Order Comment: Speci men Type: TISSUE SPECIMENOrdering Facility: [facility] Address: [address] [place], [place] [id number] Result Comment: Base d on the FISH and IDH molecular findings, 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, 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, 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, WHO Grade 4.RAP/rw 08/24/2022ddendum electronically signed by Lan Carlton MD on 08/24/2022 at 4:00 PM Performed By: #### M GMT, IDH12G, 1P19Q, EGFRF ####[facility] LIMSCA [id number] [place] [address] [place]#### S ####[facility] LABCLIA [id number] [place] [address] [place] CASE REPORT Normal [facility] Comment on above: Order Comment: Speci men Type: TISSUE SPECIMENOrdering Facility: [facility] Address: [address] [place] [address] Result Comment: Surg ical Pathology Report Case: [id number] Provider: Jackyln Mir MD Collected: 08/14/2022 10:42 AMOrdering Location: Neurosurgery Received: 08/14/2022 10:56 AMPathologist: Lan Carlton MDIntraop: YURIY Francopecimens: A) - BRAIN BIOPSY, RIGHT PARIETAL LESION B) - BRAIN RESECTION, right parietal lesion Performed By: #### M GMT, IDH12G, 1P19Q, EGFRF ####[facility] LIMSCLIA [id number] [address]#### S ####[facility] LABCLIA [id number] [address] [place] [facility] CLINICAL HISTORY Normal [facility] Comment on above: Order Comment: Speci men Type: TISSUE SPECIMENOrdering Facility: [facility] Address: [address] [place] [address] Result Comment: Pre- op diagnosis:Brain mass [G93.89] Performed By: #### M GMT, IDH12G, 1P19Q, EGFRF ####[facility] LIMSCLIA [id number] [address]#### S ####[facility] LABCLIA [id number] [address] DIAGNOSIS COMMENT Normal [facility] Comment on above: Order Comment: Speci men Type: TISSUE SPECIMENOrdering Facility: [facility] Address: [address] [place] [address] Result Comment: The tumor is marked by [...] been determined by the performing laboratory within [facility] Pathology and Laboratory Medicine [place] ([facility], [facility], [facility] or [facility]) in a manner consistent with [...] GMT, IDH12G, 1P19Q, EGFRF ####[facility] LIMSCLIA [id number] [address] [place]#### S ####[facility] LABCLIA [id number] [address] [place] [facility] FINAL DIAGNOSIS Normal [facility] Comment on above: Order Comment: Speci men Type: TISSUE SPECIMENOrdering Facility: [facility] Address: [address] [place] [address] Result Comment: A-B. Right parietal lobe, excision:- Morphologically consistent with high grade glioma.RAP/barron 08/17/2022 Performed By: #### M GMT, IDH12G, 1P19Q, EGFRF ####[facility] LIMSCLIA [id number] [place] [address] [place]#### S ####[facility] LABCLIA [id number] [address] STATES OF [facility] FINAL PERFORMING LAB Normal [facility] Comment on above: Order Comment: Speci men Type: TISSUE SPECIMENOrdering Facility: [facility] Address: [address] [id number] Result Comment: Diag nostic interpretation performed at [facility], [address] [place] [address] CLIA# [id number] Director: Mike Escobedo M.D. Performed By: #### M GMT, IDH12G, 1P19Q, EGFRF ####[facility] LIMSCLIA [id number] [address] [place]#### S ####[facility] LABCLIA [id number] [place] [address] [place] GROSS DESCRIPTION A. BRAIN BIOPSY Normal [facility] Comment on above: Order Comment: Speci men Type: TISSUE SPECIMENOrdering Facility: [facility] Address: [address] [place] [address] Result Comment: Rece ived fresh for frozen section intraoperative consultation, labeled right parietal lesion, brain biopsy is an unoriented, 1.1 x 0.8 x 0.4 cm portion of pink-red soft tissue. Half of the specimen is submitted in cassette FSA1. The remainder of the specimen is submitted in cassette A2.AKA August 14, 2022 11:31 AMGross examination performed at [facility], [address] [place], [place] [address]B. BRAIN RESECTIONReceived fresh, labeled right parietal lesion are multiple portions of ksp-towa-qxs and red, markedly soft tissue, weighing 2.2 g, and aggregating to 3.0 x 2.3 x 0.8 cm. The specimen is entirely submitted in cassettes B1-B3.AKA August 14, 2022 1:23 PMGross examination performed at [facility], [address] [place] [address] Performed By: #### M GMT, IDH12G, 1P19Q, EGFRF ####[facility] LIMSCLIA [id number] [address] [place]#### S ####[facility] LABCLIA [id number] [address] [place] INTRAOPERATIVE DIAGNOSIS A. BRAIN BIOPSY Normal [facility] Comment on above: Order Comment: Speci men Type: TISSUE SPECIMENOrdering Facility: [facility] Address: [address] [address] Result Comment: FSA1 : Right parietal lesion - high-grade glioma (Dr. Moreno).Intraoperative diagnosis performed at [facility], [facility] [place] [address] CLIA# [id number] Performed By: #### M GMT, IDH12G, 1P19Q, EGFRF ####[facility] LIMSCLIA [id number] [address] [place]#### S ####[facility] LABCLIA [id number] [address] [place] HISTORY PHYSICALon HISTORY PHYSICAL Normal [facility] Renal function 2000 panelon 08-13-2022 Albumin [Mass/Vol] 3.9 g/dL Normal 3.9-4.9 [facility] Comment on above: Order Comment: Speci men Type: BLOOD SPECIMENOrdering Facility: [facility] Address: [address] [place] [address] Performed By: #### 2 4362-6 ####[facility] LABCLIA [id number] [place] [address] [place] Anion gap [Moles/Vol] 10 mmol/L Normal 9-18 [facility] Comment on above: Order Comment: Speci men Type: BLOOD SPECIMENOrdering Facility: [facility] Address: [address] [place] [address] Performed By: #### 2 4362-6 ####[facility] LABCLIA [id number] [place] [address] [place] Calcium [Mass/Vol] 9.3 mg/dL Normal 8.5-10.2 [facility] Comment on above: Order Comment: Speci men Type: BLOOD SPECIMENOrdering Facility: [facility] Address: [address] Performed By: #### 2 4362-6 ####[facility] LABCLIA [id number] [place] [address] [place] Chloride [Moles/Vol] 102 mmol/L Normal 97-105 [facility] Comment on above: Order Comment: Speci men Type: BLOOD SPECIMENOrdering Facility: [facility] Address: [address] [address] Performed By: #### 2 4362-6 ####[facility] LABCLIA [id number] [place] [address] [place] CO2 [Moles/Vol] 27 mmol/L Normal 22-30 [facility] Comment on above: Order Comment: Speci men Type: BLOOD SPECIMENOrdering Facility: [facility] Address: [address] Performed By: #### 2 4362-6 ####[facility] LABCLIA [id number] [place] [address] [place] Creatinine [Mass/Vol] 0.78 mg/dL Normal 0.58-0.96 [facility] Comment on above: Order Comment: Speci men Type: BLOOD SPECIMENOrdering Facility: [facility] Address: [address] Performed By: #### 2 4362-6 ####[facility] LABCLIA [id number] [place] [address] [place] ESTIMATED GLOMERULAR FILTRATION RATE 77 mL/min/1.73m??? Normal >=60 [facility] Comment on above: Order Comment: Speci men Type: BLOOD SPECIMENOrdering Facility: [facility] Address: [address] Result Comment: Kim mated Glomerular Filtration [...] actual GFR. Performed By: #### 2 4362-6 ####[facility] LABCLIA [id number] [place] [address] [place] Glucose [Mass/Vol] 132 mg/dL High 74-99 [facility] Comment on above: Order Comment: Kurt barraza Type: BLOOD SPECIMENOrdering Facility: [facility] Address: [address] [address] Result Comment: The [place] [employer] (ADA) provides guidance for cutoff [...] Standards of Medical Care in Diabetes 2016, [place] [employer]. Diabetes Care. 2016.39(Suppl 1). Performed By: #### 2 4362-6 ####[facility] LABCLIA [id number] [place] [address] [place] Phosphate [Mass/Vol] 3.3 mg/dL Normal 2.7-4.8 [facility] Comment on above: Order Comment: Kurt barraza Type: BLOOD SPECIMENOrdering Facility: [facility] Address: [address] [id number] Performed By: #### 2 4362-6 ####[facility] LABCLIA [id number] [place] [address] [place] Potassium [Moles/Vol] 4.5 mmol/L Normal 3.7-5.1 [facility] Comment on above: Order Comment: Speci men Type: BLOOD SPECIMENOrdering Facility: [facility] Address: [address] [place] [address] Performed By: #### 2 4362-6 ####[facility] LABCLIA [id number] [place] [address] [place] Sodium [Moles/Vol] 139 mmol/L Normal 136-144 [facility] Comment on above: Order Comment: Speci men Type: BLOOD SPECIMENOrdering Facility: [facility] Address: [address] [place] [address] Performed By: #### 2 4362-6 ####[facility] LABIA [id number] [place] [address] [place] Urea nitrogen [Mass/Vol] 24 mg/dL High 7-21 [facility] Comment on above: Order Comment: Speci men Type: BLOOD SPECIMENOrdering Facility: [facility] Address: [address] [place] [address] Performed By: #### 2 4362-6 ####[facility] LABIA [id number] [place] [address] [place] SARS-CoV-2 RNA Resp Ql JOAN+p robeon 08-13-2022 SARS-CoV-2 (COVID-19) RNA JOAN+probe Ql (Resp) COVID 19 RESULT: SARS-CoV-2 (Agent of COVID-19) Not Detected by RT-PCR or equivalent method. This test has been authorized by FDA under an Emergency Use Authorization (EUA). Normal [facility] Comment on above: Performed By: #### 9 4500-6 ####[facility] LABCLIA [id number] [place] [address] [place] CASE MANAGEMon 08-10-2022 CASE MANAGEM Normal [facility] CNDSon 08-10-2022 CNDS Normal [facility] CNPNon 08-10-2022 CNPN Normal [facility] TYPE AND SCREEN,30 DAYon ABO A Normal [facility] Comment on above: Order Comment: Speci men Type: BLOOD SPECIMENOrdering Facility: [facility] Address: [address] [place] [address] Performed By: #### T SCR30 ####CC [facility] BLOOD BANKCLIA [id number] [address] [place] HISTORICAL AB SCR STATUS Negative Normal [facility] Comment on above: Order Comment: Speci men Type: BLOOD SPECIMENOrdering Facility: [facility] Address: [address] [place] [address] Performed By: #### T SCR30 ####CC MAIN BLOOD BANKCLIA [id number] [address] [place] Rh Nom (Bld) Positive Normal [facility] Comment on above: Order Comment: Speci men Type: BLOOD SPECIMENOrdering Facility: [facility] Address: [address] [place] [address] Performed By: #### T SCR30 ####CC MAIN BLOOD BANKCLIA [id number] [place] [address] [place] ALLIED HEALTHon 08-09-2022 ALLIED HEALTH Normal [facility] CONSULT PROGon 08-09-2022 CONSULT PROG Normal [facility] MRI BRAIN LOCAL WO/W IVCONon 08-09-2022 MRI BRAIN LOCAL WO/W IVCON Normal [facility] NURSING PROGon 08-09-2022 NURSING PROG Normal [facility] THERAPY NTon 08-09-2022 THERAPY NT Normal [facility] THERAPY NT Normal [facility] ABO AND RH ONLYon 08-08-2022 ABO A Normal [facility] Comment on above: Order Comment: Speci men Type: BLOOD SPECIMENOrdering Facility: [facility] Address: [address] [address] Performed By: #### A BORH ####CC [facility] BLOOD BANKCLIA [id number] [place] [address] [place] Rh Nom (Bld) Positive Normal [facility] Comment on above: Order Comment: Speci men Type: BLOOD SPECIMENOrdering Facility: [facility] Address: [address] [address] Performed By: #### A YAMEL ####CC [facility] BLOOD BANKIA [id number] [place] [address] [place] CASE MGT INIT ASSESon 2022 CASE MGT INIT ASSES Normal [facility] CBC W Auto Differential pane l (Bld)on 08-08-2022 Basophils (Bld) [#/Vol] 0.05 10*3/uL Normal <0.11 [facility] Comment on above: Order Comment: Speci men Type: BLOOD SPECIMENOrdering Facility: [facility] Address: [address] [place], [place] [address] Performed By: #### 5 7021-8 ####[facility] LABCLIA [id number] [address] [place] Basophils/100 WBC (Bld) 0.8 % Normal C [facility] Comment on above: Order Comment: Speci men Type: BLOOD SPECIMENOrdering Facility: [facility] Address: [address] [place], [place] [address] Performed By: #### 5 7021-8 ####[facility] LABCLIA [id number] [place] [address] [place] Differential cell count method Nom (Bld) Auto Normal [facility] Comment on above: Order Comment: Speci men Type: BLOOD SPECIMENOrdering Facility: [facility] Address: [address] [place], [place] [address] Performed By: #### 5 7021-8 ####[facility] LABCLIA [id number] [place] [address] [place] Eosinophils (Bld) [#/Vol] 0.09 10*3/uL Normal <0.46 [facility] Comment on above: Order Comment: Speci men Type: BLOOD SPECIMENOrdering Facility: [facility] Address: [address] [place] [address] Performed By: #### 5 7021-8 ####[facility] LABCLIA [id number] [place] [address] [place] Eosinophils/100 WBC (Bld) 1.4 % Normal [facility] Comment on above: Order Comment: Speci men Type: BLOOD SPECIMENOrdering Facility: [facility] Address: [address] [place] [address] Performed By: #### 5 7021-8 ####[facility] LABCLIA [id number] [address] [place] Erythrocyte distribution width (RBC) [Ratio] 12.6 % Normal 11.5-15.0 [facility] Comment on above: Order Comment: Speci men Type: BLOOD SPECIMENOrdering Facility: [facility] Address: [address] [place], [place] [address] Performed By: #### 5 7021-8 ####[facility] LABCLIA [id number] [place] [address] [place] Hematocrit (Bld) [Volume fraction] 36.4 % Normal 36.0-46.0 [facility] Comment on above: Order Comment: Speci men Type: BLOOD SPECIMENOrdering Facility: [facility] Address: [address] [place], [place] [address] Performed By: #### 5 7021-8 ####[facility] LABCLIA [id number] [place] [address] [place] Hemoglobin (Bld) [Mass/Vol] 12.7 g/dL Normal 11.5-15.5 [facility] Comment on above: Order Comment: Speci men Type: BLOOD SPECIMENOrdering Facility: [facility] Address: [address] [address] Performed By: #### 5 7021-8 ####[facility] LABCLIA [id number] [place] [address] [place] Immature granulocytes (Bld) [#/Vol] 10*3/uL Normal <0.10 [facility] Comment on above: Order Comment: Speci men Type: BLOOD SPECIMENOrdering Facility: [facility] Address: [address] Performed By: #### 5 7021-8 ####[facility] LABCLIA [id number] [place] [address] [place] Immature granulocytes/100 WBC (Bld) 0.2 % Normal [facility] Comment on above: Order Comment: Speci men Type: BLOOD SPECIMENOrdering Facility: [facility] Address: [address] Performed By: #### 5 7021-8 ####[facility] LABCLIA [id number] [place] [address] [place] Lymphocytes (Bld) [#/Vol] 1.69 10*3/uL Normal 1.00-4.00 [facility] Comment on above: Order Comment: Speci men Type: BLOOD SPECIMENOrdering Facility: [facility] Address: [address] Performed By: #### 5 7021-8 ####[facility] LABCLIA [id number] [place] [address] [place] Lymphocytes/100 WBC (Bld) 26.2 % Normal [facility] Comment on above: Order Comment: Speci men Type: BLOOD SPECIMENOrdering Facility: [facility] Address: [address] Performed By: #### 5 7021-8 ####[facility] LABCLIA [id number] [place] [address] [place] MCH (RBC) [Entitic mass] 30.2 pg Normal 26.0-34.0 [facility] Comment on above: Order Comment: Speci men Type: BLOOD SPECIMENOrdering Facility: [facility] Address: [address] [place] [address] Performed By: #### 5 7021-8 ####[facility] LAB[facility] [id number] [address] STATES OF [facility] MCHC (RBC) [Mass/Vol] 34.9 g/dL Normal 30.5-36.0 [facility] Comment on above: Order Comment: Speci men Type: BLOOD SPECIMENOrdering Facility: [facility] Address: [address] [place] [address] Performed By: #### 5 7021-8 ####[facility] [id number] [address] [place] MCV (RBC) [Entitic vol] 86.5 fL Normal 80.0-100.0 [facility] Comment on above: Order Comment: Speci men Type: BLOOD SPECIMENOrdering Facility: [facility] Address: [address] [place], [place] [address] Performed By: #### 5 7021-8 ####[facility] [id number] [place] [address] [place] Monocytes (Bld) [#/Vol] 0.72 10*3/uL Normal <0.87 [facility] Comment on above: Order Comment: Speci men Type: BLOOD SPECIMENOrdering Facility: [facility] Address: [address] [place], [place] [address] Performed By: #### 5 7021-8 ####[facility] LABMA[facility] [id number] [address] OF [facility] Monocytes/100 WBC (Bld) 11.2 % Normal C [facility] Comment on above: Order Comment: Speci men Type: BLOOD SPECIMENOrdering Facility: [facility] Address: [address] Performed By: #### 5 7021-8 ####[facility] LABCLIA [id number] [place] [address] [place] Neutrophils (Bld) [#/Vol] 3.89 10*3/uL Normal 1.45-7.50 [facility] Comment on above: Order Comment: Speci men Type: BLOOD SPECIMENOrdering Facility: [facility] Address: [address] [place], [place] [address] Performed By: #### 5 7021-8 ####[facility] LABCLIA [id number] [place] [address] [place] Neutrophils/100 WBC (Bld) 60.2 % Normal [facility] Comment on above: Order Comment: Speci men Type: BLOOD SPECIMENOrdering Facility: [facility] Address: [address] [place], [place] [address] Performed By: #### 5 7021-8 ####[facility] LABCLIA [id number] [place] [address] [place] Nucleated RBC (Bld) [#/Vol] 10*3/uL Normal <0.01 [facility] Comment on above: Order Comment: Speci men Type: BLOOD SPECIMENOrdering Facility: [facility] Address: [address] Performed By: #### 5 7021-8 ####[facility] LABCLIA [id number] [place] [address] [place] Nucleated RBC/100 WBC (Bld) [Ratio] 0.0 /100 WBC Normal [facility] Comment on above: Order Comment: Speci men Type: BLOOD SPECIMENOrdering Facility: [facility] Address: [address] [place], [place] [address] Performed By: #### 5 7021-8 ####[facility] LABCLIA [id number] [place] [address] [place] Platelet mean volume (Bld) [Entitic vol] 10.5 fL Normal 9.0-12.7 [facility] Comment on above: Order Comment: Speci men Type: BLOOD SPECIMENOrdering Facility: [facility] Address: [address] [place] [address] Performed By: #### 5 7021-8 ####[facility] LABIA [id number] [place] [address] [place] Platelets (Bld) [#/Vol] 223 10*3/uL Normal 150-400 [facility] Comment on above: Order Comment: Speci men Type: BLOOD SPECIMENOrdering Facility: [facility] Address: [address] [place], [place] [address] Performed By: #### 5 7021-8 ####[facility] LABIA [id number] [place] [address] [place] RBC (Bld) [#/Vol] 4.21 10*6/uL Normal 3.90-5.20 [facility] Comment on above: Order Comment: Speci men Type: BLOOD SPECIMENOrdering Facility: [facility] Address: [address] [place] [address] Performed By: #### 5 7021-8 ####[facility] LABIA [id number] [place] [address] [place] WBC (Bld) [#/Vol] 6.45 10*3/uL Normal 3.70-11.00 [facility] Comment on above: Order Comment: Speci men Type: BLOOD SPECIMENOrdering Facility: [facility] Address: [address] [place] [address] Performed By: #### 5 7021-8 ####[facility] LABCLIA [id number] [place] [address] [place] Basophils (Bld) [#/Vol] 0.09 10*3/uL Normal <0.11 [facility] Comment on above: Order Comment: Speci men Type: BLOOD SPECIMENOrdering Facility: [facility] Address: [address] [place] [address] Performed By: #### 5 7021-8 ####[facility] LABCLIA [id number] [place] [address] [place] Basophils/100 WBC (Bld) 1.3 % Normal [facility] Comment on above: Order Comment: Speci men Type: BLOOD SPECIMENOrdering Facility: [facility] Address: [address] [place] [address] Performed By: #### 5 7021-8 ####[facility] LABCLIA [id number] [place] [address] [place] Eosinophils (Bld) [#/Vol] 0.17 10*3/uL Normal <0.46 [facility] Comment on above: Order Comment: Speci men Type: BLOOD SPECIMENOrdering Facility: [facility] Address: [address] [place] [address] Performed By: #### 5 7021-8 ####[facility] LABCLIA [id number] [address] [place] Eosinophils/100 WBC (Bld) 2.4 % Normal [facility] Comment on above: Order Comment: Speci men Type: BLOOD SPECIMENOrdering Facility: [facility] Address: [address] [place] [address] Performed By: #### 5 7021-8 ####[facility] LABCLIA [id number] [place] [address] [place] Erythrocyte distribution width (RBC) [Ratio] 12.5 % Normal 11.5-15.0 [facility] Comment on above: Order Comment: Speci men Type: BLOOD SPECIMENOrdering Facility: [facility] Address: [address] Performed By: #### 5 7021-8 ####[facility] LABIA [id number] [address] [place] Hematocrit (Bld) [Volume fraction] 43.3 % Normal 36.0-46.0 [facility] Comment on above: Order Comment: Speci men Type: BLOOD SPECIMENOrdering Facility: [facility] Address: [address] Performed By: #### 5 7021-8 ####[facility] LABIA [id number] [place] [address] [place] Hemoglobin (Bld) [Mass/Vol] 15.1 g/dL Normal 11.5-15.5 [facility] Comment on above: Order Comment: Speci men Type: BLOOD SPECIMENOrdering Facility: [facility] Address: [address] Performed By: #### 5 7021-8 ####[facility] LABIA [id number] [place] [address] [place] Immature granulocytes (Bld) [#/Vol] 0.09 10*3/uL Normal <0.10 [facility] Comment on above: Order Comment: Speci men Type: BLOOD SPECIMENOrdering Facility: [facility] Address: [address] Performed By: #### 5 7021-8 ####[facility] LABIA [id number] [address] [place] Immature granulocytes/100 WBC (Bld) 1.3 % Normal [facility] Comment on above: Order Comment: Speci men Type: BLOOD SPECIMENOrdering Facility: [facility] Address: [address] Performed By: #### 5 7021-8 ####[facility] LABCLIA [id number] [place] [address] [place] Lymphocytes (Bld) [#/Vol] 1.61 10*3/uL Normal 1.00-4.00 [facility] Comment on above: Order Comment: Speci men Type: BLOOD SPECIMENOrdering Facility: [facility] Address: [address] [place] [address] Performed By: #### 5 7021-8 ####[facility] LABIA [id number] [address] [place] Lymphocytes/100 WBC (Bld) 22.8 % Normal [facility] Comment on above: Order Comment: Speci men Type: BLOOD SPECIMENOrdering Facility: [facility] Address: [address] [place] [address] Performed By: #### 5 7021-8 ####[facility] LABIA [id number] [address] [place] MCH (RBC) [Entitic mass] 29.7 pg Normal 26.0-34.0 [facility] Comment on above: Order Comment: Speci men Type: BLOOD SPECIMENOrdering Facility: [facility] Address: [address] [place] [address] Performed By: #### 5 7021-8 ####[facility] LABIA [id number] [place] [address] [place] MCHC (RBC) [Mass/Vol] 34.9 g/dL Normal 30.5-36.0 [facility] Comment on above: Order Comment: Speci men Type: BLOOD SPECIMENOrdering Facility: [facility] Address: [address] [place] [address] Performed By: #### 5 7021-8 ####[facility] LABIA [id number] [address] [place] MCV (RBC) [Entitic vol] 85.2 fL Normal 80.0-100.0 [facility] Comment on above: Order Comment: Speci men Type: BLOOD SPECIMENOrdering Facility: [facility] Address: [address] Performed By: #### 5 7021-8 ####[facility] LABCLIA [id number] [place] [address] [place] Monocytes (Bld) [#/Vol] 0.68 10*3/uL Normal <0.87 [facility] Comment on above: Order Comment: Speci men Type: BLOOD SPECIMENOrdering Facility: [facility] Address: [address] [place], [place] [address] Performed By: #### 5 7021-8 ####[facility] LABCLIA [id number] [place] [address] [place] Monocytes/100 WBC (Bld) 9.6 % Normal [facility] Comment on above: Order Comment: Speci men Type: BLOOD SPECIMENOrdering Facility: [facility] Address: [address] [place], [place] [address] Performed By: #### 5 7021-8 ####[facility] LABCLIA [id number] [place] [address] [place] Neutrophils (Bld) [#/Vol] 4.43 10*3/uL Normal 1.45-7.50 [facility] Comment on above: Order Comment: Speci men Type: BLOOD SPECIMENOrdering Facility: [facility] Address: [address] Performed By: #### 5 7021-8 ####[facility] LABCLIA [id number] [place] [address] [place] Neutrophils/100 WBC (Bld) 62.6 % Normal [facility] Comment on above: Order Comment: Speci men Type: BLOOD SPECIMENOrdering Facility: [facility] Address: [address] Performed By: #### 5 7021-8 ####[facility] LABIA [id number] [place] [address] [place] Platelet mean volume (Bld) [Entitic vol] Normal [facility] Comment on above: Order Comment: Speci men Type: BLOOD SPECIMENOrdering Facility: [facility] Address: [address] [place] [address] Result Comment: Unab le to report Performed By: #### 5 7021-8 ####[facility] LABIA [id number] [place] [address] [place] Platelets (Bld) [#/Vol] Normal [facility] Comment on above: Order Comment: Speci men Type: BLOOD SPECIMENOrdering Facility: [facility] Address: [address] [place] [address] Result Comment: Plat elets clumped, estimate low. Platelet count confirmed by manual review of peripheral blood smear. Sample checked for clot. Result rechecked. Performed By: #### 5 7021-8 ####[facility] LABIA [id number] [place] [address] [place] RBC (Bld) [#/Vol] 5.08 10*6/uL Normal 3.90-5.20 [facility] Comment on above: Order Comment: Speci men Type: BLOOD SPECIMENOrdering Facility: [facility] Address: [address] [place], [place] [address] Performed By: #### 5 7021-8 ####[facility] [id number] [place] [address] [place] WBC (Bld) [#/Vol] 7.07 10*3/uL Normal 3.70-11.00 [facility] Comment on above: Order Comment: Speci men Type: BLOOD SPECIMENOrdering Facility: [facility] Address: [address] [place], [place] [address] Performed By: #### 5 7021-8 ####[facility] LABCLIA [id number] [place] [address] [place] CONSULTon 08-08-2022 CONSULT Normal [facility] CT BRAIN WO IVCONon 08-08-19 CT BRAIN WO IVCON Normal [facility] Comprehensive metabolic 2000 panelon 08-08-2022 Albumin [Mass/Vol] 4.8 g/dL Normal 3.9-4.9 [facility] Comment on above: Order Comment: Speci men Type: BLOOD SPECIMENOrdering Facility: [facility] Address: [address] Performed By: #### 2 777-1, , ####[facility] LABCLIA [id number] [place] [address] [place] ALP [Catalytic activity/Vol] 57 U/L Normal 34-123 [facility] Comment on above: Order Comment: Speci men Type: BLOOD SPECIMENOrdering Facility: [facility] Address: [address] [place] [address] Performed By: #### 2 777-1, , ####[facility] LABIA [id number] [place] [address] [place] ALT [Catalytic activity/Vol] 10 U/L Normal 7-38 [facility] Comment on above: Order Comment: Speci men Type: BLOOD SPECIMENOrdering Facility: [facility] Address: [address] [place] [id number] Performed By: #### 2 777-1, , ####[facility] LABIA [id number] [place] [address] [place] Anion gap [Moles/Vol] 13 mmol/L Normal 9-18 [facility] Comment on above: Order Comment: Speci men Type: BLOOD SPECIMENOrdering Facility: [facility] Address: [address] Performed By: #### 2 777-1, 47777-4, ####[facility] LABCLIA [id number] [place] [address] [place] AST [Catalytic activity/Vol] 15 U/L Normal 13-35 [facility] Comment on above: Order Comment: Speci men Type: BLOOD SPECIMENOrdering Facility: [facility] Address: [address] [place] [address] Performed By: #### 2 777-1, 41567-0, ####[facility] LABCLIA [id number] [place] [address] [place] Bilirubin [Mass/Vol] 0.4 mg/dL Normal 0.2-1.3 [facility] Comment on above: Order Comment: Speci men Type: BLOOD SPECIMENOrdering Facility: [facility] Address: [address] [place] [address] Performed By: #### 2 777-1, 38367-2, ####[facility] LABIA [id number] [place] [address] [place] Calcium [Mass/Vol] 10.1 mg/dL Normal 8.5-10.2 [facility] Comment on above: Order Comment: Speci men Type: BLOOD SPECIMENOrdering Facility: [facility] Address: [address] [place], [place] [address] Performed By: #### 2 777-1, 62658-7, ####[facility] LABIA [id number] [place] [address] [place] Chloride [Moles/Vol] 102 mmol/L Normal 97-105 [facility] Comment on above: Order Comment: Speci men Type: BLOOD SPECIMENOrdering Facility: [facility] Address: [address] [place], [place] [address] Performed By: #### 2 777-1, 73843-3, ####[facility] LABCLIA [id number] [place] [address] [place] CO2 [Moles/Vol] 26 mmol/L Normal 22-30 [facility] Comment on above: Order Comment: Speci men Type: BLOOD SPECIMENOrdering Facility: [facility] Address: [address] [place] [address] Performed By: #### 2 777-1, 20609-9, ####[facility] LABIA [id number] [place] [address] [place] Creatinine [Mass/Vol] 0.71 mg/dL Normal 0.58-0.96 [facility] Comment on above: Order Comment: Speci men Type: BLOOD SPECIMENOrdering Facility: [facility] Address: [address] [place] [address] Performed By: #### 2 777-1, , ####[facility] LABIA [id number] [place] [address] [place] ESTIMATED GLOMERULAR FILTRATION RATE 87 mL/min/1.73m??? Normal >=60 [facility] Comment on above: Order Comment: Speci men Type: BLOOD SPECIMENOrdering Facility: [facility] Address: [address] [place] [address] Result Comment: Kim mated Glomerular Filtration Rate [...] actual GFR. Performed By: #### 2 777-1, 09240-6, 67507-3 ####[facility] LABCLIA [id number] [place] [address] [place] Glucose [Mass/Vol] 94 mg/dL Normal 74-99 [facility] Comment on above: Order Comment: Speci men Type: BLOOD SPECIMENOrdering Facility: [facility] Address: [address] [place] [address] Result Comment: The [place] [employer] (ADA) provides guidance for cutoff [...] Standards of Medical Care in Diabetes 2016, [place] [employer]. Diabetes Care. 2016.39(Suppl 1). Performed By: #### 2 777-1, 78983-3, ####[facility] LABIA [id number] [place] [address] [place] Potassium [Moles/Vol] 3.4 mmol/L Low 3.7-5.1 [facility] Comment on above: Order Comment: Speci men Type: BLOOD SPECIMENOrdering Facility: [facility] Address: [address] [place], [place] [address] Performed By: #### 2 777-1, 07675-8, ####[facility] LABIA [id number] [address] [address] [place] Protein [Mass/Vol] 7.2 g/dL Normal 6.3-8.0 [facility] Comment on above: Order Comment: Speci men Type: BLOOD SPECIMENOrdering Facility: [facility] Address: [address] [place], [place] [address] Performed By: #### 2 777-1, , ####[facility] LABIA [id number] [place] [address] [place] Sodium [Moles/Vol] 141 mmol/L Normal 136-144 [facility] Comment on above: Order Comment: Speci men Type: BLOOD SPECIMENOrdering Facility: [facility] Address: [address] [place] [address] Performed By: #### 2 777-1, 69565-6, ####[facility] LABIA [id number] [place] [address] [place] Urea nitrogen [Mass/Vol] 23 mg/dL High 7-21 [facility] Comment on above: Order Comment: Speci men Type: BLOOD SPECIMENOrdering Facility: [facility] Address: [address] [place] [address] Performed By: #### 2 777-1, 37763-1, ####[facility] LABIA [id number] [place] [address] [place] ED NOTEon 08-08-2022 ED NOTE Normal [facility] ED NOTE HNO ID: [id number] Author: Maricarmen Thomas RN Service: Emergency Medicine Author Type: Registered Nurse Type: ED Notes Filed: 08/08/2022 2:16 AM Note Text: Con ABO reorder per Blood Bank request Normal [facility] ED PROV NOTEon 08-08-2022 ED PROV NOTE Normal [facility] Magnesium SerPl-mCncon 08-08 Magnesium [Mass/Vol] 1.9 mg/dL Normal 1.7-2.3 [facility] Comment on above: Order Comment: Speci men Type: BLOOD SPECIMENOrdering Facility: [facility] Address: [address] [place] [address] Performed By: #### 1 9123-9 ####[facility] LABIA [id number] [place] [address] [place] Magnesium [Mass/Vol] 2.1 mg/dL Normal 1.7-2.3 [facility] Comment on above: Order Comment: Kurt barraza Type: BLOOD SPECIMENOrdering Facility: [facility] Address: [address] [place], [place] [address] Performed By: #### 2 777-1, 52547-6, 98807-6 ####[facility] LABCLIA [id number] [place] [address] [place] PT panel Coag (PPP)on 2022 INR Coag (PPP) [Relative time] 1.0 {INR} Normal 0.9-1.3 [facility] Comment on above: Order Comment: Kurt barraza Type: BLOOD SPECIMENOrdering Facility: [facility] Address: [address] [place] [address] Result Comment: Milana min K Antagonist (VKA) Therapeutic Range: INR 2 to 3 (Target INR of 2.5)Note: For patients treated with VKA drugs, such as warfarin, the [place] [employer] 2012 Guideline recommends [...] 70: 252-289 Performed By: #### 3 4528-0, 45048-6 ####[facility] LABCLIA [id number] [place] [address] [place] PT Coag (PPP) [Time] 10.8 s Normal 9.7-13.0 [facility] Comment on above: Order Comment: Speci men Type: BLOOD SPECIMENOrdering Facility: [facility] Address: [address] [place] [address] Performed By: #### 3 4528-0, 48411-9 ####[facility] LABCLIA [id number] [place] [address] [place] Phosphate SerPl-mCncon 08-08 Phosphate [Mass/Vol] 3.6 mg/dL Normal 2.7-4.8 [facility] Comment on above: Order Comment: Speci men Type: BLOOD SPECIMENOrdering Facility: [facility] Address: [address] [place] [address] Performed By: #### 2 777-1, 38534-5, 17921-9 ####[facility] LABCLIA [id number] [address] [place] SARS-CoV-2 RNA Resp Ql JOAN+p robeon 08-08-2022 SARS-CoV-2 (COVID-19) RNA JOAN+probe Ql (Resp) COVID 19 RESULT: SARS-CoV-2 (Agent of COVID-19) Not Detected by RT-PCR or equivalent method. This test has been authorized by FDA under an Emergency Use Authorization (EUA). Normal [facility] Comment on above: Performed By: #### 9 4500-6 ####[facility] LABCLIA [id number] [place] [address] [place] STAPH AUREUS PCRon 3 S. aureus and MRSA panel JOAN+probe (Nose) Normal Negative [facility] Comment on above: Order Comment: Speci men Type: SWAB OF INTERNAL NOSEOrdering Facility: [facility] Address: [address] [place] [address] Result Comment: Nega tive for Staphylococcus aureus by PCR.Negative for MRSA by PCR Performed By: #### S APCR ####[facility] LABCLIA [id number] [address] [place] TOX SCREEN ROUT URon -17-2 023 Amphetamines Confirm (U) [Mass/Vol] Negative Normal Negative [facility] Comment on above: Order Comment: Speci men Type: URINE SPECIMENOrdering Facility: [facility] Address: [address] [place] [address] Result Comment: Cuto ff threshold at 1000 ng/mL. Performed By: #### U TOX2 ####[facility] LABCLIA [id number] [place] [address] [place] BARBITURATES, URINE Negative Normal Negative [facility] Comment on above: Order Comment: Speci men Type: URINE SPECIMENOrdering Facility: [facility] Address: [address] [place] [address] Result Comment: Cuto ff threshold at 200 ng/mL. Performed By: #### U TOX2 ####[facility] LABIA [id number] [place] [address] [place] BENZODIAZEPINES, UR Negative Normal Negative [facility] Comment on above: Order Comment: Speci men Type: URINE SPECIMENOrdering Facility: [facility] Address: [address] [place] [address] Result Comment: Cuto ff threshold at 200 ng/mL. Performed By: #### U TOX2 ####[facility] LABIA [id number] [place] [address] [place] CANNABINOIDS,URINE Negative Normal Negative [facility] Comment on above: Order Comment: Speci men Type: URINE SPECIMENOrdering Facility: [facility] Address: [address] [place] [address] Result Comment: Cuto ff threshold at 50 ng/mL. Performed By: #### U TOX2 ####[facility] LABCLIA [id number] [place] [address] [place] Cocaine Ql (U) Negative Normal Negative [facility] Comment on above: Order Comment: Speci men Type: URINE SPECIMENOrdering Facility: [facility] Address: [address] [place] [address] Result Comment: Cuto ff threshold at 300 ng/mL. Performed By: #### U TOX2 ####[facility] LABCLIA [id number] [place] [address] [place] Ethanol (U) [Mass/Vol] <11 Normal <11 Cl [facility] Comment on above: Order Comment: Speci men Type: URINE SPECIMENOrdering Facility: [facility] Address: [address] [place] [address] Performed By: #### U TOX2 ####[facility] LABIA [id number] [address] [place] Opiates Screen Ql (U) Negative Normal Negative [facility] Comment on above: Order Comment: Speci men Type: URINE SPECIMENOrdering Facility: [facility] Address: [address] [place] [address] Result Comment: Cuto ff threshold at 300 ng/mL. Performed By: #### U TOX2 ####[facility] LABIA [id number] [address] [place] oxyCODONE cutoff Screen (U) [Mass/Vol] Negative Normal Negative [facility] Comment on above: Order Comment: Speci men Type: URINE SPECIMENOrdering Facility: [facility] Address: [address] [place] [address] Result Comment: Cuto ff threshold at 100 ng/mL. Performed By: #### U TOX2 ####[facility] LABIA [id number] [address] [place] Phencyclidine Ql (U) Negative Normal Negative [facility] Comment on above: Order Comment: Speci men Type: URINE SPECIMENOrdering Facility: [facility] Address: [address] [place] [address] Result Comment: Cuto ff threshold at 25 ng/mL. Performed By: #### U TOX2 ####[facility] LABCLIA [id number] [place] [address] [place] TYPE + SCREENon 08-08-2022 ABO A Normal [facility] Comment on above: Order Comment: Speci men Type: BLOOD SPECIMENOrdering Facility: [facility] Address: [address] [place] [address] Performed By: #### T SCR ####[facility] BLOOD BANKCLIA [id number] [place] [address] [place] HISTORICAL AB SCR STATUS Negative Normal [facility] Comment on above: Order Comment: Speci men Type: BLOOD SPECIMENOrdering Facility: [facility] Address: [address] [place] [address] Performed By: #### T SCR ####[facility] BLOOD BANKCLIA [id number] [place] [address] [place] Rh Nom (Bld) Positive Normal [facility] Comment on above: Order Comment: Speci men Type: BLOOD SPECIMENOrdering Facility: [facility] Address: [address] [place] [address] Performed By: #### T SCR ####[facility] BLOOD BANKCLIA [id number] [place] [address] [place] TYPE AND SCREEN EXPIRATION 08/11/2022 23:59 Normal [facility] Comment on above: Order Comment: Speci men Type: BLOOD SPECIMENOrdering Facility: [facility] Address: [address] [place] [address] Performed By: #### T SCR ####CC [facility] BLOOD BANKCLIA [id number] [place] [address] [place] US LEG VEIN DVT VIVIENNE VAS LABo n 08-08-2022 US LEG VEIN DVT VIVIENNE VAS LAB Normal [facility] Urinalysis complete panel (U )on 08-08-2022 Bilirubin Ql (U) Negative Normal Negative [facility] Comment on above: Order Comment: Speci men Type: URINE SPECIMENOrdering Facility: [facility] Address: [address] Performed By: #### 2 4356-8 ####[facility] LABCLIA [id number] [place] [address] [place] CALCIUM OXALATE CRYSTALS (UA) Few Abnormal None Seen [facility] Comment on above: Order Comment: Speci men Type: URINE SPECIMENOrdering Facility: [facility] Address: [address] Performed By: #### 2 4356-8 ####[facility] LABCLIA [id number] [place] [address] [place] Clarity (Unsp spec) Clear Normal Clear [facility] Comment on above: Order Comment: Speci men Type: URINE SPECIMENOrdering Facility: [facility] Address: [address] [place], [place] [address] Performed By: #### 2 4356-8 ####[facility] LABCLIA [id number] [place] [address] [place] Color (U) Yellow Normal Yellow [facility] Comment on above: Order Comment: Speci men Type: URINE SPECIMENOrdering Facility: [facility] Address: [address] [place] [address] Performed By: #### 2 4356-8 ####[facility] LABCLIA [id number] [place] [address] [place] Epithelial cells LM.HPF (Urine sed) [#/Area] Few Normal [facility] Comment on above: Order Comment: Speci men Type: URINE SPECIMENOrdering Facility: [facility] Address: [address] [place] [address] Performed By: #### 2 4356-8 ####[facility] LABCLIA [id number] [place] AVENUEDESK [id number] Glucose Test strip (U) [Mass/Vol] Negative Normal Trace, Negative [facility] Comment on above: Order Comment: Speci men Type: URINE SPECIMENOrdering Facility: [facility] Address: [address] Performed By: #### 2 4356-8 ####[facility] LABCLIA [id number] [place] [address] [place] Hemoglobin Ql (U) Negative Normal Negative, Trace [facility] Comment on above: Order Comment: Speci men Type: URINE SPECIMENOrdering Facility: [facility] Address: [address] Performed By: #### 2 4356-8 ####[facility] LABCLIA [id number] [address] [place] Ketones Ql (U) 1+ Abnormal Trace, Negative [facility] Comment on above: Order Comment: Speci men Type: URINE SPECIMENOrdering Facility: [facility] Address: [address] Performed By: #### 2 4356-8 ####[facility] LABCLIA [id number] [address] [place] Leukocyte esterase Test strip Ql (U) 250 Gretta/mL Abnormal Negative, 25 Gretta/mL [facility] Comment on above: Order Comment: Speci men Type: URINE SPECIMENOrdering Facility: [facility] Address: [address] Performed By: #### 2 4356-8 ####[facility] LABCLIA [id number] [address] [place] Nitrite Ql (U) Negative Normal Negative [facility] Comment on above: Order Comment: Speci men Type: URINE SPECIMENOrdering Facility: [facility] Address: [address] Performed By: #### 2 4356-8 ####[facility] LABCLIA [id number] [place] [address] [place] pH (U) 6.0 [pH] Normal 5.0-8.0 [facility] Comment on above: Order Comment: Speci men Type: URINE SPECIMENOrdering Facility: [facility] Address: [address] [place] [address] Performed By: #### 2 4356-8 ####[facility] LABIA [id number] [place] [address] [place] Protein (U) [Mass/Vol] Trace Normal Trace , Negative [facility] Comment on above: Order Comment: Speci men Type: URINE SPECIMENOrdering Facility: [facility] Address: [address] [place] [address] Performed By: #### 2 4356-8 ####[facility] LABIA [id number] [place] [address] [place] [place] RBC LM.HPF (Urine sed) [#/Area] 0-3 /HPF Normal 0-3 /HPF [facility] Comment on above: Order Comment: Speci men Type: URINE SPECIMENOrdering Facility: [facility] Address: [address] [place] [address] Performed By: #### 2 4356-8 ####[facility] LABIA [id number] [place] [address] [place] Specific gravity (U) [Rel density] 1.031 High 1.005-1.03 0 [facility] Comment on above: Order Comment: Speci men Type: URINE SPECIMENOrdering Facility: [facility] Address: [address] [place] [address] Performed By: #### 2 4356-8 ####[facility] LABIA [id number] [place] [address] [place] Urobilinogen Ql (U) Negative Normal Negative [facility] Comment on above: Order Comment: Speci men Type: URINE SPECIMENOrdering Facility: [facility] Address: [address] [place] [address] Performed By: #### 2 4356-8 ####[facility] LABIA [id number] [place] [address] [place] WBC LM.HPF (Urine sed) [#/Area] 6-10 /HPF Abnormal 0-5 /HPF [facility] Comment on above: Order Comment: Speci men Type: URINE SPECIMENOrdering Facility: [facility] Address: [address] [place] [address] Performed By: #### 2 4356-8 ####[facility] [id number] [place] [address] [place] XR CHEST 1V FRONTAL PORTon 0 08-08-2022 XR CHEST 1V FRONTAL PORT Normal [facility] aPTT PPPon 08-08-2022 aPTT Coag (PPP) [Time] 26.1 s Normal 23.0-32.4 [facility] Comment on above: Order Comment: Speci men Type: BLOOD SPECIMENOrdering Facility: [facility] Address: [address] [place] [address] Performed By: #### 3 4528-0, 82981-2 ####[facility] LABIA [id number] [place] [address] [place] CNPNon 08-07-2022 CNPN Normal [facility] CNPNon 08-04-2022 CNPN Normal [facility] CNPNon 08-03-2022 CNPN Normal [facility] CT Abdomen/Pelvis w + w/o Co [...] by Pato Gage on 08/02/[address] [facility] CT Chest w/ + w/o Contraston [...] by Pato Gage on 08/02/[address] [facility] MRI Brain w/o + w/on 023 [...] by Pato Gage on 08/02/2022 1544 Normal [facility] Customer Contact Representative XR Chest 2 Views*on 07-25-19 23 XR [...] by Carl Harp on 07/25/2022 1558 Normal [facility] Customer Contact Representative XR Hip Bilateral w/Pelvison 06-05-2022 XR Hip [...] by Pato Gage on 06/05/[address] [facility] Complete Blood Count with Au to Diffon 09-28-2021 Basophils (Bld) [#/Vol] 0.05 10*3/uL Normal 0.00-0.20 [facility] Comment on above: Performed By: #### C MP, VITD, LIPD, CBCAD #### [facility] [address] [place], [place] [id number] Basophils/100 WBC (Bld) 1.0 % Normal N [facility] Comment on above: Performed By: #### C MP, VITD, LIPD, CBCAD #### [facility] [address] [place], [place] [id number] Eosinophils (Bld) [#/Vol] 0.16 10*3/uL Normal 0.02-0.50 [facility] Comment on above: Performed By: #### C MP, VITD, LIPD, CBCAD #### [facility] [address] [place], [place] [id number] Eosinophils/100 WBC (Bld) 3.3 % Normal [facility] Comment on above: Performed By: #### C MP, VITD, LIPD, CBCAD #### [facility] [address] [place], [place] [id number] Erythrocyte distribution width (RBC) [Ratio] 12.9 % Normal 11.0-15.0 [facility] Comment on above: Performed By: #### C MP, VITD, LIPD, CBCAD #### [facility] [address] [place], [place] [id number] Hematocrit (Bld) [Volume fraction] 39.9 % Normal 35.0-47.0 [facility] Comment on above: Performed By: #### C MP, VITD, LIPD, CBCAD #### [facility] [address] [place], [place] [id number] Hemoglobin (Bld) [Mass/Vol] 13.1 g/dL Normal 11.6-15.5 [facility] Comment on above: Performed By: #### C MP, VITD, LIPD, CBCAD #### [facility] [address] [place], [place] [id number] Lymphocytes (Bld) [#/Vol] 1.1 10*3/uL Normal 0.9-3.9 [facility] Comment on above: Performed By: #### C MP, VITD, LIPD, CBCAD #### [facility] [address] [place], [place] [id number] Lymphocytes/100 WBC (Bld) 22.2 % Normal [facility] Comment on above: Performed By: #### C MP, VITD, LIPD, CBCAD #### [facility] [address] [place], [place] [id number] MCH (RBC) [Entitic mass] 29.4 pg Normal 27.0-33.0 [facility] Comment on above: Performed By: #### C MP, VITD, LIPD, CBCAD #### [facility] [address] [place], [place] [id number] MCHC (RBC) [Mass/Vol] 32.8 g/dL Normal 32.0-36.0 [facility] Comment on above: Performed By: #### C MP, VITD, LIPD, CBCAD #### [facility] [address] [place], [place] [id number] MCV (RBC) [Entitic vol] 90 fL Normal 80-100 N [facility] Comment on above: Performed By: #### C MP, VITD, LIPD, CBCAD #### [facility] [address] [place], [place] [id number] Monocytes (Bld) [#/Vol] 0.5 10*3/uL Normal 0.2-0.9 [facility] Comment on above: Performed By: #### C MP, VITD, LIPD, CBCAD #### [facility] [address] [place], [place] [id number] Monocytes/100 WBC (Bld) 10.6 % [facility] on above: Performed By: #### C MP, VITD, LIPD, CBCAD #### [facility] [address] [place], [place] [id number] Neutrophils (Bld) [#/Vol] 3.0 10*3/uL Normal 1.5-7.8 [facility] Comment on above: Performed By: #### C MP, VITD, LIPD, CBCAD #### [facility] [address] [place], [place] [id number] Neutrophils/100 WBC (Bld) 62.7 % Normal [facility] Comment on above: Performed By: #### C MP, VITD, LIPD, CBCAD #### [facility] [address] [place], [place] [id number] Platelet mean volume (Bld) [Entitic vol] 11.10 fL Normal 7.50-12.50 [facility] Comment on above: Performed By: #### C MP, VITD, LIPD, CBCAD #### [facility] [address] [place], [place] [id number] Platelets (Bld) [#/Vol] 239 10*3/uL Normal 140-400 [facility] Comment on above: Performed By: #### C MP, VITD, LIPD, CBCAD #### [facility] [address] [place], [place] [id number] RBC (Bld) [#/Vol] 4.45 10*6/uL Normal 3.90-5.20 [facility] Comment on above: Performed By: #### C MP, VITD, LIPD, CBCAD #### [facility] [address] [place], [place] [id number] RDW-SD 42.3 fL Normal 37.0-50.0 [facility] Comment on above: Performed By: #### C MP, VITD, LIPD, CBCAD #### [facility] [address] [place], [place] [id number] WBC (Bld) [#/Vol] 4.8 10*3/uL Normal 3.8-11.0 [facility] [place] Customer Contact Representative Comment on above: Performed By: #### C MP, VITD, LIPD, CBCAD #### [facility] [address] [place], [place] [id number] Comprehensive Metabolic Pane noelle 09-28-2021 Albumin [Mass/Vol] 4.6 g/dL Normal 3.6-5.1 [facility] [facility] [place] Customer Contact Representative Comment on above: Performed By: #### C MP, VITD, LIPD, CBCAD #### [facility] [address] [place], [place] [id number] Albumin/Globulin [Mass ratio] 2.6 {ratio} High 1.0-2.5 [facility] Customer Contact Representative Comment on above: Performed By: #### C MP, VITD, LIPD, CBCAD #### [facility] [address] [place], [place] [id number] ALP [Catalytic activity/Vol] 59 U/L Normal 35-119 [facility] Comment on above: Performed By: #### C MP, VITD, LIPD, CBCAD #### [facility] [address] [place], [place] [id number] ALT [Catalytic activity/Vol] 12 U/L Normal 6-33 [facility] Comment on above: Result Comment: 06/22 Female reference range changed. Performed By: #### C MP, VITD, LIPD, CBCAD #### [facility] [address] [place], [place] [id number] Anion gap [Moles/Vol] 17 mmol/L Normal 12-20 [facility] Comment on above: Result Comment: Effe ctive 07/28/2019 reference range changed. Performed By: #### C MP, VITD, LIPD, CBCAD #### [facility] [address] [place], [place] [id number] AST [Catalytic activity/Vol] 14 U/L Normal 9-34 [facility] Comment on above: Performed By: #### C MP, VITD, LIPD, CBCAD #### [facility] [address] [place], [place] [id number] Bilirubin [Mass/Vol] 0.67 mg/dL Normal 0.30-1.20 [facility] Comment on above: Performed By: #### C MP, VITD, LIPD, CBCAD #### [facility] [address] [place], [place] [id number] BUN/CREA 32 Ratio High 6-22 [facility] Comment on above: Performed By: #### C MP, VITD, LIPD, CBCAD #### [facility] [address] [place], [place] [id number] Calcium [Mass/Vol] 9.4 mg/dL Normal 8.6-10.2 [facility] Comment on above: Performed By: #### C MP, VITD, LIPD, CBCAD #### [facility] [address] [place], [place] [id number] Chloride [Moles/Vol] 103 mmol/L Normal 98-107 [facility] Comment on above: Performed By: #### C MP, VITD, LIPD, CBCAD #### [facility] [address] [place], [place] [id number] CO2 [Moles/Vol] 28 mmol/L Normal 20-31 [facility] Comment on above: Performed By: #### C MP, VITD, LIPD, CBCAD #### [facility] [address] [place], [place] [id number] Creatinine [Mass/Vol] 0.7 mg/dL Normal 0.6-1.4 [facility] Comment on above: Performed By: #### C MP, VITD, LIPD, CBCAD #### [facility] [address] [place], [place] [id number] eGFRAA 93 mL/min/1.73m2 Normal >60 [facility] Comment on above: Performed By: #### C MP, VITD, LIPD, CBCAD #### [facility] [address] [place], [place] [id number] eGFRNAA 77 mL/min/1.73m2 Normal >60 [facility] Comment on above: Performed By: #### C MP, VITD, LIPD, CBCAD #### [facility] [address] [place], [place] [id number] Globulin (S) [Mass/Vol] 1.8 g/dL Low 1.9-3.7 [facility] Comment on above: Performed By: #### C MP, VITD, LIPD, CBCAD #### [facility] [address] [place], [place] [id number] Glucose [Mass/Vol] 92 mg/dL Normal 65-99 [facility] Customer Contact Representative Comment on above: Result Comment: For FASTING Glucose --- ADA reference ranges: Normal 65-99 mg/dl Prediabetes 100-125 Diabetes >/= 126 Performed By: #### C MP, VITD, LIPD, CBCAD #### [facility] [address] [place], [place] [id number] Potassium [Moles/Vol] 3.9 mmol/L Normal 3.5-5.5 [facility] Comment on above: Performed By: #### C MP, VITD, LIPD, CBCAD #### [facility] [address] [place], [place] [id number] Protein [Mass/Vol] 6.4 g/dL Normal 6.1-8.1 [facility] Customer Contact Representative Comment on above: Performed By: #### C MP, VITD, LIPD, CBCAD #### [facility] [address] [place], [place] [id number] Sodium [Moles/Vol] 144 mmol/L Normal 135-146 [facility] Customer Contact Representative Comment on above: Performed By: #### C MP, VITD, LIPD, CBCAD #### [facility] [address] [place], [place] [id number] Urea nitrogen [Mass/Vol] 24 mg/dL Normal 7-25 [facility] Comment on above: Performed By: #### C MP, VITD, LIPD, CBCAD #### [facility] [address] [place], [place] [id number] Lipid Panelon 09-28-2021 Cholesterol [Mass/Vol] 221 mg/dL High 125-200 No [facility] Customer Contact Representative Comment on above: Result Comment: Low risk < 200mg/dL Borderline risk 201-239 mg/dl High risk > or equal to 240 Performed By: #### C MP, VITD, LIPD, CBCAD #### [facility] [address] [place], [place] [id number] Cholesterol in HDL [Mass/Vol] 70 mg/dL Normal >40 [facility] Comment on above: Result Comment: High Cardiovascular Risk HDL <40 mg/dL Low Cardiovascular Risk HDL > or equal to 60 mg/dl Performed By: #### C MP, VITD, LIPD, CBCAD #### [facility] [address] [place], [place] [id number] Cholesterol in LDL [Mass/Vol] 135 mg/dL Normal [facility] Comment on above: Result Comment: LDL ATP III CLASSIFICATION LDL less than 100 mg/dl Optimal LDL 100-129 mg/dl Near or above optimal LDL 130-159 Borderline high LDL 160-189 High LDL greater than 189 mg/dl Very High Performed By: #### C MP, VITD, LIPD, CBCAD #### [facility] [address] [place], [place] [id number] Cholesterol in VLDL [Mass/Vol] 16 mg/dL Normal [facility] Comment on above: Performed By: #### C MP, VITD, LIPD, CBCAD #### [facility] [address] [place], [place] [id number] Cholesterol.total/Fiona sterol in HDL [Mass ratio] 3 {ratio} Normal [facility] Comment on above: Performed By: #### C MP, VITD, LIPD, CBCAD #### [facility] [address] [place], [place] [id number] Triglyceride [Mass/Vol] 80 mg/dL Normal 30-150 N [facility] Comment on above: Result Comment: TRIG ATPIII CLASSIFICATIONS TRIG less than 150 mg/dl Normal TRIG 150-199 mg/dl Borderline High TRIG 200-500 mg/dl High TRIG greather than 500 mg/dl Very High Performed By: #### C MP, VITD, LIPD, CBCAD #### [facility] [address] [place], [place] [id number] Vitamin D 25-OHon 09-28-2021 VIT D 25 OH 36 ng/ml Normal >29 [facility] Comment on above: Result Comment: Milana min D Status Deficiency <20 ng/mL Insufficiency 20-29 ng/mL Optimal 30-100 ng/mL Possible Toxicity >=150 ng/mL Performed By: #### C MP, VITD, LIPD, CBCAD #### [facility] [address] [place], [place] [id number] XR Bone Density (DEXA)on XR Bone Density (DEXA) EXAM: Dual Femur Bone Density FINDINGS: Dual Femur bone density obtained with a CeQur whole body system: NupusyGMSLpfbh-HsllyAqn-Mj tched Total(g/cm2)(%)T-Score(%)Z -Score Mean0.05862-6.17177.6 Impression: The mean BMD and corresponding T-score indicated above indicate Low Bone Mass (Osteopenia) and places the patient at a mild to moderate increased risk for fracture. There may be a future risk of developing osteoporosis. EXAM: AP Lumbar Bone Density FINDINGS: AP Spine bone density obtained with a CeQur whole body system: WxwyjfINGCwdad-SmgdiQob-Fa tched Total(g/cm2)(%)T-Score(%)Z -Score L1-L40.19252-2.11550.6 Impression: The mean BMD and corresponding T-score [...] by Carl Harp on 09/20/2021 1234 Normal [facility] Customer Contact Representative Covid-19 PCR (CVDTB)on 03-23 SARS-CoV-2 (COVID-19) RNA JOAN+probe Ql (Unsp spec) Detected Critically abnormal NOT DETECTED [facility] Comment on above: Result Comment: This test is not yet approved or cleared by the [place] FDA. When there are no FDA-approved or cleared tests available, and other criteria are met, FDA can make tests available under an emergency access mechanism called an Emergency Use Authorization (EUA). The EUA for this test is supported by the [employer] Manager of Health and Human Service's (HHS's) declaration [...] longer be used). Performed By: #### C [facility] #### [facility] [address] [place] [address] Dr. Ortega Lee Vital Signs Date Time Vital Sign Value Performing Clinician Facility 07-18-2023 19:02-0500 Diastolic blood pressure 67 mm[Hg] MD Milvia Hinkle Work Phone: [facility] 07-18-2023 19:02-0500 Heart rate 72 /min MD Milvia Hinkle Work Phone: [facility] 07-18-2023 19:02-0500 Respiratory rate 20 /min MD Milvia Hinkle Work Phone: [facility] 07-18-2023 19:02-0500 SaO2% (BldA) [Mass fraction] 95 % MD Milvia Hinkle Work Phone: [facility] 07-18-2023 19:02-0500 Systolic blood pressure 140 mm[Hg] MD Milvia Hinkle Work Phone: [facility] 07-18-2023 13:50-0500 Body height 162.56 cm MD Milvia Hinkle Work Phone: [facility] 07-18-2023 13:50-0500 Body temperature 98.5 [degF] MD Milvia Hinkle Work Phone: [facility] 07-18-2023 13:50-0500 Body weight 70.3 kg MD Milvia Hinkle Work Phone: [facility] 06-15-2023 10:36-0500 Body temperature 98.2 [degF] Adolfo Martins MD, PhD Work Phone: [facility] 06-15-2023 10:36-0500 Diastolic blood pressure 77 mm[Hg] Adolfo Stokes, PhD Work Phone: [facility] 06-15-2023 10:36-0500 Heart rate 74 /min Adolfo Martins MD, PhD Work Phone: [facility] 06-15-2023 10:36-0500 Respiratory rate 18 /min Adolfo Martins MD, PhD Work Phone: [facility] 06-15-2023 10:36-0500 SaO2% (BldA) [Mass fraction] 96 % Adolfo Martins MD, PhD Work Phone: [facility] 06-15-2023 10:36-0500 Systolic blood pressure 156 mm[Hg] Adolfo Martins MD , PhD Work Phone: [facility] 05-04-2023 10:31-0400 Body height 162.6 cm Anshul Riggs MD Work Phone: [facility] 05-04-2023 10:31-0400 Body temperature 97.5 [degF] Anshul Riggs MD Work Phone: [facility] 05-04-2023 10:31-0400 Diastolic blood pressure 74 mm[Hg] Anshul Riggs MD Work Phone: [facility] 05-04-2023 10:31-0400 Heart rate 77 /min Anshul Riggs MD Work Phone: [facility] 05-04-2023 10:31-0400 Respiratory rate 18 /min Anshul Riggs MD Work Phone: [facility] 05-04-2023 10:31-0400 SaO2% (BldA) [Mass fraction] 97 % Anshul Riggs MD Work Phone: [facility] 05-04-2023 10:31-0400 Systolic blood pressure 135 mm[Hg] Anshul Stokes Work Phone: [facility] 04-04-2023 14:51-0400 Body temperature 97.3 [degF] Anshul Riggs MD Work Phone: [facility] 04-04-2023 14:51-0400 Diastolic blood pressure 62 mm[Hg] Anshul Riggs MD Work Phone: [facility] 04-04-2023 14:51-0400 Heart rate 93 /min Anshul Riggs MD Work Phone: [facility] 04-04-2023 14:51-0400 Respiratory rate 16 /min Anshul Riggs MD Work Phone: [facility] 04-04-2023 14:51-0400 SaO2% (BldA) [Mass fraction] 95 % Anshul Riggs MD Work Phone: [facility] 04-04-2023 14:51-0400 Systolic blood pressure 103 mm[Hg] Anshul Stokes Work Phone: [facility] 02-07-2023 14:29-0400 Body height 162.6 cm Anshul Riggs MD Work Phone: [facility] 02-07-2023 14:29-0400 Body temperature 97.39 [degF] Anshul Riggs MD Work Phone: [facility] 02-07-2023 14:29-0400 Diastolic blood pressure 82 mm[Hg] Anshul Riggs MD Work Phone: [facility] 02-07-2023 14:29-0400 Heart rate 112 /min Anshul Riggs MD Work Phone: [facility] 02-07-2023 14:29-0400 Respiratory rate 16 /min Anshul Riggs MD Work Phone: [facility] 02-07-2023 14:29-0400 SaO2% (BldA) [Mass fraction] 98 % Anshul Riggs MD Work Phone: [facility] 02-07-2023 14:29-0400 Systolic blood pressure 97 mm[Hg] Anshul Stokes Work Phone: [facility] 01-09-2023 14:57-0400 Body height 162.6 cm Jessica Camila PA-C Work Phone: [facility] 01-09-2023 14:57-0400 Body temperature 97.81 [degF] Jessica Camila PA-C Work Phone: [facility] 01-09-2023 14:57-0400 Diastolic blood pressure 64 mm[Hg] Jessica Camila PA -C Work Phone: [facility] 01-09-2023 14:57-0400 Heart rate 79 /min Jessica Camila PA-C Work Phone: [facility] 01-09-2023 14:57-0400 Respiratory rate 16 /min Jessica Camila PA-C Work Phone: [facility] 01-09-2023 14:57-0400 SaO2% (BldA) [Mass fraction] 97 % Jessica Camila PA-C Work Phone: [facility] 01-09-2023 14:57-0400 Systolic blood pressure 117 mm[Hg] Jessica Rae Work Phone: [facility] 12-20-2022 14:34-0400 Body height 162.6 cm Anshul Riggs MD Work Phone: [facility] 12-20-2022 14:34-0400 Body temperature 97 [degF] Anshul Riggs MD Work Phone: [facility] 12-20-2022 14:34-0400 Diastolic blood pressure 66 mm[Hg] Anshul Riggs MD Work Phone: [facility] 12-20-2022 14:34-0400 Heart rate 79 /min Anshul Riggs MD Work Phone: [facility] 12-20-2022 14:34-0400 Respiratory rate 18 /min Anshul Riggs MD Work Phone: [facility] 12-20-2022 14:34-0400 SaO2% (BldA) [Mass fraction] 99 % Anshul Riggs MD Work Phone: [facility] 12-20-2022 14:34-0400 Systolic blood pressure 131 mm[Hg] Anshul Stokes Work Phone: [facility] 11-30-2022 15:06-0400 Body height 162.6 cm Anshul Riggs MD Work Phone: [facility] 11-30-2022 15:06-0400 Body temperature 97.39 [degF] Anshul Riggs MD Work Phone: [facility] 11-30-2022 15:06-0400 Body weight 69.13 kg Anshul Riggs MD Work Phone: [facility] 11-30-2022 15:06-0400 Diastolic blood pressure 58 mm[Hg] Anshul Riggs MD Work Phone: [facility] 11-30-2022 15:06-0400 Heart rate 89 /min Anshul Riggs MD Work Phone: [facility] 11-30-2022 15:06-0400 Respiratory rate 16 /min Anshul Riggs MD Work Phone: [facility] 11-30-2022 15:06-0400 SaO2% (BldA) [Mass fraction] 96 % Anshul Riggs MD Work Phone: [facility] 11-30-2022 15:06-0400 Systolic blood pressure 99 mm[Hg] Anshul Stokes Work Phone: [facility] 11-17-2022 14:59-0400 Body height 162.6 cm Anshul Riggs MD Work Phone: [facility] 11-17-2022 14:59-0400 Body temperature 97.3 [degF] Anshul Riggs MD Work Phone: [facility] 11-17-2022 14:59-0400 Body weight 69.85 kg Anshul Riggs MD Work Phone: [facility] 11-17-2022 14:59-0400 Diastolic blood pressure 61 mm[Hg] Anshul Riggs MD Work Phone: [facility] 11-17-2022 14:59-0400 Heart rate 78 /min Anshul Riggs MD Work Phone: [facility] 11-17-2022 14:59-0400 Respiratory rate 16 /min Anshul Riggs MD Work Phone: [facility] 11-17-2022 14:59-0400 SaO2% (BldA) [Mass fraction] 94 % Anshul Riggs MD Work Phone: [facility] 11-17-2022 14:59-0400 Systolic blood pressure 115 mm[Hg] Anshul Stokes Work Phone: [facility] 11-02-2022 08:56-0400 Body height 162.6 cm Anshul Riggs MD Work Phone: [facility] 11-02-2022 08:56-0400 Body temperature 97.59 [degF] Anshul Riggs MD Work Phone: [facility] 11-02-2022 08:56-0400 Body weight 70.76 kg Anshul Riggs MD Work Phone: [facility] 11-02-2022 08:56-0400 Diastolic blood pressure 68 mm[Hg] Anshul Riggs MD Work Phone: [facility] 11-02-2022 08:56-0400 Heart rate 77 /min Anshul Riggs MD Work Phone: [facility] 11-02-2022 08:56-0400 Respiratory rate 16 /min Anshul Riggs MD Work Phone: [facility] 11-02-2022 08:56-0400 SaO2% (BldA) [Mass fraction] 98 % Anshul Riggs MD Work Phone: [facility] 11-02-2022 08:56-0400 Systolic blood pressure 141 mm[Hg] Anshul Stokes Work Phone: [facility] 10-20-2022 10:55-0400 Body height 162.6 cm Jessica Cartagena PA-C Work Phone: [facility] 10-20-2022 10:55-0400 Body temperature 97.5 [degF] Jessica Cartagena PA-C Work Phone: [facility] 10-20-2022 10:55-0400 Body weight 72.76 kg Jessica Deeer PA-C Work Phone: [facility] 10-20-2022 10:55-0400 Diastolic blood pressure 81 mm[Hg] Jessica Camila PA -C Work Phone: [facility] 10-20-2022 10:55-0400 Heart rate 70 /min Jessica Camila PA-C Work Phone: [facility] 10-20-2022 10:55-0400 Respiratory rate 16 /min Jessica Camila PA-C Work Phone: [facility] 10-20-2022 10:55-0400 SaO2% (BldA) [Mass fraction] 95 % Jessica Camila PA-C Work Phone: [facility] 10-20-2022 10:55-0400 Systolic blood pressure 136 mm[Hg] Jessica Camila PA- C Work Phone: [facility] 10-11-2022 10:53-0400 Body temperature 96.8 [degF] Max Stallings MD Work Phone: [facility] 10-11-2022 10:53-0400 Body weight 73.26 kg Max Stallings MD Work Phone: [facility] 10-11-2022 10:53-0400 Diastolic blood pressure 79 mm[Hg] Max Stallings MD Work Phone: [facility] 10-11-2022 10:53-0400 Heart rate 96 /min Max Stallings MD Work Phone: [facility] 10-11-2022 10:53-0400 Respiratory rate 18 /min Max Stallings MD Work Phone: [facility] 10-11-2022 10:53-0400 SaO2% (BldA) [Mass fraction] 97 % Max Stallings MD Work Phone: [facility] 10-11-2022 10:53-0400 Systolic blood pressure 156 mm[Hg] Max Stallings MD Work Phone: [facility] 10-06-2022 08:51-0400 Body height 162.6 cm Jessica Camila PA-C Work Phone: [facility] 10-06-2022 08:51-0400 Body temperature 97.59 [degF] Jessica Camila PA-C Work Phone: [facility] 10-06-2022 08:51-0400 Body weight 73.94 kg Jessica Camila PA-C Work Phone: [facility] 10-06-2022 08:51-0400 Diastolic blood pressure 75 mm[Hg] Jessica Camila PA -C Work Phone: [facility] 10-06-2022 08:51-0400 Heart rate 80 /min Jessica Camila PA-C Work Phone: [facility] 10-06-2022 08:51-0400 Respiratory rate 16 /min Jessica Camila PA-C Work Phone: [facility] 10-06-2022 08:51-0400 SaO2% (BldA) [Mass fraction] 95 % Jessica Camila PA-C Work Phone: [facility] 10-06-2022 08:51-0400 Systolic blood pressure 110 mm[Hg] Jessica Camila PA- C Work Phone: [facility] 10-04-2022 10:45-0400 Body temperature 97.39 [degF] Max Stallings MD Work Phone: [facility] 10-04-2022 10:45-0400 Body weight 73.85 kg Max Stallings MD Work Phone: [facility] 10-04-2022 10:45-0400 Diastolic blood pressure 84 mm[Hg] Max Stallings MD Work Phone: [facility] 10-04-2022 10:45-0400 Heart rate 77 /min Max Stallings MD Work Phone: [facility] 10-04-2022 10:45-0400 Respiratory rate 18 /min Max Stallings MD Work Phone: [facility] 10-04-2022 10:45-0400 SaO2% (BldA) [Mass fraction] 98 % Max Stallings MD Work Phone: [facility] 10-04-2022 10:45-0400 Systolic blood pressure 155 mm[Hg] Max Stallings MD Work Phone: [facility] 09-27-2022 09:29-0500 Body height 162.6 cm Anshul Riggs MD Work Phone: [facility] 09-27-2022 09:29-0500 Body temperature 97.59 [degF] Anshul Riggs MD Work Phone: [facility] 09-27-2022 09:29-0500 Body weight 73.48 kg Anshul Riggs MD Work Phone: [facility] 09-27-2022 09:29-0500 Diastolic blood pressure 64 mm[Hg] Anshul Riggs MD Work Phone: [facility] 09-27-2022 09:29-0500 Heart rate 75 /min Anshul Riggs MD Work Phone: [facility] 09-27-2022 09:29-0500 Respiratory rate 18 /min Anshul Riggs MD Work Phone: [facility] 09-27-2022 09:29-0500 SaO2% (BldA) [Mass fraction] 100 % Anshul Riggs MD Work Phone: [facility] 09-27-2022 09:29-0500 Systolic blood pressure 139 mm[Hg] Anshul Stokes Work Phone: [facility] 09-20-2022 11:02-0500 Body temperature 97.39 [degF] Max Stallings MD Work Phone: [facility] 09-20-2022 11:02-0500 Body weight 72.03 kg Max Stallings MD Work Phone: [facility] 03-01-2023 11:02-0500 Diastolic blood pressure 67 mm[Hg] Max Stallings MD Work Phone: [facility] 09-20-2022 11:02-0500 Heart rate 76 /min Max Stallings MD Work Phone: [facility] 09-20-2022 11:02-0500 Respiratory rate 18 /min Max Stallings MD Work Phone: [facility] 09-20-2022 11:02-0500 SaO2% (BldA) [Mass fraction] 99 % Max Stallings MD Work Phone: [facility] 09-20-2022 11:02-0500 Systolic blood pressure 107 mm[Hg] Max Stallings MD Work Phone: [facility] 09-19-2022 13:16-0500 Body height 162.6 cm Jessica Camila PA-C Work Phone: [facility] 09-19-2022 13:16-0500 Body temperature 97.7 [degF] Jessica Camila PA-C Work Phone: [facility] 09-19-2022 13:16-0500 Body weight 70.13 kg Jessica Camila PA-C Work Phone: [facility] 09-19-2022 13:16-0500 Diastolic blood pressure 73 mm[Hg] Jessica Camila PA -C Work Phone: [facility] 09-19-2022 13:16-0500 Heart rate 87 /min Jessica Camila PA-C Work Phone: [facility] 09-19-2022 13:16-0500 Respiratory rate 16 /min Jessica Camila PA-C Work Phone: [facility] 09-19-2022 13:16-0500 SaO2% (BldA) [Mass fraction] 97 % Jessica Camila PA-C Work Phone: [facility] 09-19-2022 13:16-0500 Systolic blood pressure 126 mm[Hg] Jessica Camila PA- C Work Phone: [facility] 09-14-2022 15:47-0500 Body height 162.6 cm Martina Gutierrez MD Work Phone: [facility] 09-14-2022 15:47-0500 Body weight 70.22 kg Martina Gutierrez MD Work Phone: [facility] 09-14-2022 15:47-0500 Diastolic blood pressure 63 mm[Hg] Martina roca MD Work Phone: [facility] 09-14-2022 15:47-0500 Heart rate 72 /min Martina Gutierrez MD Work Phone: [facility] 09-14-2022 15:47-0500 SaO2% (BldA) [Mass fraction] 99 % Martina Gutierrez MD Work Phone: [facility] 09-14-2022 15:47-0500 Systolic blood pressure 110 mm[Hg] Martina Gutierrez MD Work Phone: [facility] 09-13-2022 09:21-0500 Body temperature 97.59 [degF] Max Stallings MD Work Phone: [facility] 09-13-2022 09:21-0500 Diastolic blood pressure 84 mm[Hg] Max Stallings MD Work Phone: [facility] 09-13-2022 09:21-0500 Heart rate 80 /min Max Stallings MD Work Phone: [facility] 09-13-2022 09:21-0500 Respiratory rate 18 /min Max Stallings MD Work Phone: [facility] 09-13-2022 09:21-0500 SaO2% (BldA) [Mass fraction] 99 % Max Stallings MD Work Phone: [facility] 09-13-2022 09:21-0500 Systolic blood pressure 146 mm[Hg] Max Stallings MD Work Phone: [facility] 09-12-2022 10:46-0500 Body height 162.6 cm Anshul Riggs MD Work Phone: [facility] 09-12-2022 10:46-0500 Body temperature 97 [degF] Anshul Riggs MD Work Phone: [facility] 09-12-2022 10:46-0500 Body weight 72.58 kg Anshul Riggs MD Work Phone: [facility] 09-12-2022 10:46-0500 Diastolic blood pressure 70 mm[Hg] Anshul Riggs MD Work Phone: [facility] 09-12-2022 10:46-0500 Heart rate 83 /min Anshul Riggs MD Work Phone: [facility] 09-12-2022 10:46-0500 Respiratory rate 16 /min Anshul Riggs MD Work Phone: [facility] 09-12-2022 10:46-0500 SaO2% (BldA) [Mass fraction] 97 % Anshul Riggs MD Work Phone: [facility] 09-12-2022 10:46-0500 Systolic blood pressure 132 mm[Hg] Anshul Stokes Work Phone: [facility] 08-14-2022 15:25-0500 SaO2% (BldA) [Mass fraction] 100 % MAX STALLINGS [facility] Comment on above: Order Comment: Specimen Type: ARTERIAL B LOOD SPECIMENOrdering Facility: [facility] Address: [address] [id number] Performed By: #### A LLBG ####[facility] LABCLIA [id number] [place] [address] [place] 08-14-2022 12:47-0500 SaO2% (BldA) [Mass fraction] 99 % MAX STALLINGS [facility] Comment on above: Order Comment: Specimen Type: ARTERIAL B LOOD SPECIMENOrdering Facility: [facility] Address: [address] [id number] Performed By: #### A LLMG ####[facility] LABCLIA [id number] KAVITA ELLIOTT [id number] [address] [place] Encounters Encounter Date Encounter Type Care Provider Facility Start: 07-26-2023 End: 07-26-2023 ambulatory MILVIA HINKLE Facility:[facility] Start: 07-25-2023 End: 07-26-2023 ambulatory MILVIA HINKLE Facility:[facility] Start: 07-18-2023 End: 07-18-2023 Emergency department patient visit Milvia Hinkle Facility:[facility] Start: 07-18-2023 End: 07-18-2023 Emergency department patient visit MD Milvia Hinkle Work Phone: [facility] Work Phone: Start: 07-17-2023 End: 07-17-2023 ambulatory JESSICA CARTAGENA Facility:[facility] Start: 07-10-2023 End: 07-10-2023 ambulatory ANSHUL KARAMLOU Facility:[facility] Start: 07-03-2023 Refill Emily Hooks [facility] Start: 07-02-2023 Refill Emily Hooks [facility] Start: 06-29-2023 Telephone encounter Yaneth Farfan itt [facility] Work Phone: [facility] Comment on above: Medication Assistanc e (Gleostine PAP free drug application initiated) Start: 06-29-2023 End: 06-29-2023 ambulatory ANSHUL KARAMLOU Facility:[facility] Start: 06-25-2023 Social Work Dariela JAQUEZW Psych iatry Start: 06-23-2023 Telephone encounter Adolfo dumont MD, PhD Work Phone: [facility] Comment on above: Home Care Start: 06-22-2023 Telephone encounter Adolfo dumont MD, PhD Work Phone: [facility] Comment on above: Lomustine cycle #1 ( 90 mg/m2) Start: 06-18-2023 Orders Only Adolfo Martins MD, PhD Work Phone: [facility] Comment on above: Glioblastoma (HCC) ( Primary Dx) SPP Oral Oncology/he matology - Treatment Referral (Gleostine); Insurance Authorization (No PA Needed) Start: 06-15-2023 End: 06-15-2023 ambulatory DIPIKA DUFF Facility:[facility] Start: 06-15-2023 End: 06-15-2023 Office outpatient new 60 minutes Adolfo Martins MD, PhD Work Phone: [facility] Comment on above: Glioblastoma (HCC) ( Primary Dx) Start: 06-08-2023 Orders Only Dipika Callaway MD Work Phone: [facility] Comment on above: Glioblastoma (HCC) ( Primary Dx); Cerebral autosomal dominant arteriopathy with subcortical infarcts and leukoencephalopathy; Other specified disorders of central nervous system Start: 06-07-2023 Orders Only Dar Stokes Work Phone: [facility] Comment on above: Glioblastoma (HCC) ( Primary Dx); Benign neoplasm of meninges (HCC) Start: 06-04-2023 Telephone encounter Dipika Duff MD Work Phone: [facility] Comment on above: Urgent 1-2 weeks Start: 05-31-2023 ambulatory Radha Reynolds RN Work Phone: [facility] Start: 05-29-2023 End: 05-29-2023 ambulatory [facility] Facility:[facility] Start: 05-25-2023 ambulatory [facility] Facility :[facility] Start: 05-25-2023 End: 05-25-2023 Subsequent hospital visit by physician Leena [facility] (Istat/3t) Work Phone: [facility] Radiology MRI Comment on above: Glioblastoma multifo rme (HCC) [C71.9] Start: 05-24-2023 End: 05-24-2023 ambulatory MILVIA HINKLE Facility:[facility] Start: 05-24-2023 End: 05-24-2023 ambulatory PATO BELTRE Facility:[facility] Start: 05-22-2023 End: 05-22-2023 ambulatory MILVIA HINKLE Facility:[facility] Start: 05-11-2023 Telephone encounter Milla soto PA-C Work Phone: Radiology Comment on above: Appointment Start: 05-08-2023 End: 05-08-2023 ambulatory ANSHUL RIGGS Facility: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 Start: 05-04-2023 End: 05-04-2023 ambulatory Anshul Riggs MD Work Phone: Hematology/Oncology Comment on above: Glioblastoma multifo rme (HCC) (Primary Dx) Start: 05-04-2023 End: 05-04-2023 Patient encounter procedure Anshul Riggs MD Work Phone: [facility] Start: 04-30-2023 End: 04-30-2023 ambulatory MARTINA GUTIERREZ Facility:[facility] Start: 04-30-2023 End: 04-30-2023 ambulatory Martina Gutierrez MD Work Phone: Vascular Medicine Comment on above: S/P IVC filter (Prim ekta Dx); Recurrent deep vein thrombosis (DVT) (HCC); Glioblastoma (HCC); Hypercoagulable state (HCC) Start: 04-30-2023 End: 04-30-2023 Telemedicine consultation with patient Martina Gutierrez MD Work Phone: [facility] Start: 04-13-2023 End: 04-13-2023 ambulatory MARTINA GUTIERREZ Facility:[facility] Start: 04-09-2023 Telephone encounter Daiana Gatica liative Medicine Comment on above: Initial Consult Start: 04-04-2023 End: 04-04-2023 ambulatory ANSHUL RIGGS Facility:[facility] Start: 04-04-2023 End: 04-04-2023 Patient encounter procedure [...] Refill Request Start: 02-23-2023 ambulatory MILVIA Betancourt ity:[facility] Start: 02-23-2023 End: 02-23-2023 Subsequent hospital visit by physician [facility] (Istat/3t) Work Phone: [facility] Radiology MRI Comment on above: Glioblastoma multifo rme (HCC) [C71.9] Start: 02-07-2023 End: 02-07-2023 ambulatory Anshul Riggs MD Work Phone: Hematology/Oncology Comment on above: Glioblastoma multifo rme (HCC) (Primary Dx) Start: 02-07-2023 End: 02-07-2023 Patient encounter procedure Anshul Riggs MD Work Phone: [facility] Start: 01-18-2023 Refill Yaneth Chicas [facility] Work Phone: [facility] Comment on above: Refill Request Start: 01-09-2023 End: 01-09-2023 Refill Jamaica Haddad [facility] Work Phone: [facility] Comment on above: Refill Request Glioblastoma multifo rme (HCC) (Primary Dx); Anxiety about health; Other depression Start: 12-25-2022 Refill Jamaica Betancourt ick [facility] Work Phone: [facility] Comment on above: Refill Request Start: 12-20-2022 End: 12-20-2022 ambulatory ANSHUL RIGGS Facility:[facility] Start: 12-20-2022 End: 12-20-2022 ambulatory Anshul Riggs MD Work Phone: Hematology/Oncology Comment on above: Glioblastoma multifo rme (HCC) (Primary Dx) Start: 12-20-2022 End: 12-20-2022 Patient encounter procedure Anshul Riggs MD Work Phone: [facility] Start: 12-08-2022 End: 12-08-2022 ambulatory ANSHUL RIGGS Facility:[facility] Start: 11-30-2022 End: 11-30-2022 ambulatory Anshul Riggs MD Work Phone: Hematology/Oncology Comment on above: Glioblastoma multifo rme (HCC) (Primary Dx) Start: 11-30-2022 End: 11-30-2022 Patient encounter procedure Anshul Riggs MD Work Phone: [facility] Start: 11-20-2022 Refill Jamaica Betancourt ick [facility] Work Phone: [facility] Comment on above: Refill Request Start: [...] up call) Care Coordination (C linical update) [facility] the[facility] Start: 11-07-2022 End: 11-17-2022 ambulatory VANDANA BARKER Facility:[facility] Start: 11-07-2022 End: 11-17-2022 Subsequent hospital visit by physician Vandana Barker DO Work Phone: [facility] Start: 11-04-2022 End: 11-07-2022 Evaluation and management of inpatient TERENCE HEARD Facility:[facility] Start: 11-02-2022 Telephone encounter Sherry Winchester RN [...] Start: 10-23-2022 End: 10-23-2022 ambulatory MILVIA HINKLE Facility:[facility] Start: 10-20-2022 End: 10-20-2022 ambulatory Jessica Cartagena PA-C Work Phone: Hematology/Oncology Comment on above: Glioblastoma multifo rme (HCC) (Primary Dx) Start: 10-20-2022 End: 10-20-2022 Patient encounter procedure Jessica Cartagena PA-C Work Phone: [facility] Start: 10-19-2022 End: 10-19-2022 ambulatory Jenn HOLT Facility:[facility] Start: 10-19-2022 End: 10-19-2022 Patient encounter procedure Jenn Holt MD Work Phone: Radiation Oncology Comment on above: Brain tumor (HCC) (P rimary Dx) Start: 10-18-2022 End: 10-18-2022 ambulatory MILVIA HINKLE Facility:[facility] Start: 10-17-2022 End: 10-17-2022 ambulatory MILVIA HINKLE Facility:[facility] Start: 10-16-2022 End: 10-16-2022 Refill Anshul Riggs MD Work Phone: Radiation Oncology Comment on above: Patient Update; Refi ll Request Start: 10-13-2022 End: 10-13-2022 ambulatory MILVIA HINKLE Facility:[facility] Start: 10-12-2022 End: 10-12-2022 ambulatory MILVIA HINKLE Facility:[facility] Start: 10-11-2022 End: 10-11-2022 ambulatory MILVIA HINKLE Facility:[facility] Start: 10-11-2022 End: 10-11-2022 Patient encounter procedure Max Stallings MD Work Phone: Radiation Oncology Comment on above: Brain tumor (HCC) (P rimary Dx) Start: 10-10-2022 End: 10-10-2022 ambulatory MILVIA HINKLE Facility:[facility] Start: 10-09-2022 End: 10-09-2022 Refill [place] Haddad [facility] Work Phone: Hematology/Oncology Comment on above: Refill [...] Start: 10-04-2022 End: 10-04-2022 ambulatory MAX STALLINGS Facility:[facility] Start: 10-04-2022 End: 10-04-2022 Patient encounter procedure Max Stallings MD Work Phone: Radiation Oncology Comment on above: Brain tumor (HCC) (P rimary Dx) Start: 10-03-2022 End: 10-03-2022 ambulatory MILVIA HINKLE Facility:[facility] Start: 10-02-2022 End: 10-02-2022 ambulatory MILVIA HINKLE Facility:[facility] Start: 09-29-2022 End: 09-29-2022 ambulatory MILVIA HINKLE Facility:[facility] Start: 09-28-2022 End: 09-28-2022 ambulatory MILVIA HINKLE Facility:[facility] Start: 09-27-2022 Telephone encounter Anshul ghotra MD Work Phone: Radiation Oncology Comment on above: Medication Question Care Coordination (M edication question) Medication Authoriza tion (Eliquis appeal sent) Start: 09-27-2022 End: 09-27-2022 ambulatory MILVIA HINKLE Facility:[facility] Start: 09-27-2022 End: 09-27-2022 ambulatory ANSHUL RIGGS Facility:[facility] Start: 09-27-2022 End: 09-27-2022 Patient encounter procedure Max Stallings MD Work Phone: Radiation Oncology Comment on above: Brain tumor (HCC) (P rimary Dx) Start: 09-27-2022 End: 09-27-2022 ambulatory Anshul Riggs MD Work Phone: Hematology/Oncology Comment on above: Glioblastoma multifo rme (HCC) (Primary Dx) Start: 09-27-2022 End: 09-27-2022 Patient encounter procedure Anshul Riggs MD Work Phone: [facility] Start: 09-26-2022 Telephone encounter Jessica ocasio PA-C Work Phone: [facility] Comment on above: Insurance Authorizat ion (Eliquis) Start: 09-26-2022 End: 09-26-2022 ambulatory MILVIA HINKLE Facility:[facility] Start: 09-25-2022 End: 09-25-2022 ambulatory MILVIA HINKLE Facility:[facility] Start: 09-22-2022 End: 09-22-2022 ambulatory MILVIA HINKLE Facility:[facility] Start: 09-21-2022 End: 09-21-2022 ambulatory MILVIA HINKLE Facility:[facility] Start: 09-20-2022 End: 09-20-2022 ambulatory MILVIA HINKLE Facility:[facility] Start: 09-20-2022 End: 09-20-2022 Patient encounter procedure Max Stallings MD Work Phone: Radiation Oncology Comment on above: Brain tumor (HCC) Start: 09-19-2022 Telephone encounter Emily Hooks [facility] Comment on above: Medication [...] Start: 09-18-2022 End: 09-18-2022 ambulatory MILVIA HINKLE Facility:[facility] Start: 09-15-2022 End: 09-15-2022 Social Work Marian Spangler [facility] Hematology/Oncology Start: 09-14-2022 End: 09-15-2022 ambulatory MARTINA GUTIERREZ Facility:[facility] Start: 09-14-2022 End: 09-14-2022 Evaluation and management of inpatient MILVIA HINKLE Facility:[facility] Start: 09-14-2022 End: 09-14-2022 Patient encounter procedure Martina Gutierrez MD Work Phone: Vascular Medicine Comment on above: Acute deep vein thro mbosis (DVT) of left femoral vein (HCC) (Primary Dx); Personal history of DVT (deep vein thrombosis); Glioblastoma multiforme (HCC) Start: 09-14-2022 End: 09-14-2022 ambulatory MILVIA HINKLE Facility:[facility] Start: 09-13-2022 Telephone encounter Sherry Winchester RN Work Phone: Hematology/Oncology Comment on above: Care Coordination (O ral chemo) Start: 09-13-2022 End: 09-13-2022 ambulatory MILVIA HINKLE Facility:[facility] Start: 09-13-2022 End: 09-13-2022 Patient encounter procedure [...] Start: 08-29-2022 End: 09-11-2022 ambulatory VANDANA BARKER Facility:[facility] Start: 08-28-2022 End: 09-11-2022 Subsequent hospital visit by physician Vandana Barker DO Work Phone: [facility] Start: 08-25-2022 Patient encounter procedure Kate Gautam MD Work Phone: [facility] Start: 08-25-2022 Radiation Oncology Note Kate Gautam MD Work Phone: Radiation Oncology Comment on above: Simulation Note Treatment Planning Start: 08-25-2022 End: 08-25-2022 ambulatory KATE GAUTAM Facility:[facility] Start: 08-25-2022 End: 08-25-2022 ambulatory KATE GAUTAM Facility:[facility] Start: 08-23-2022 Orders Only Kate Gautam MD Work Phone: Radiation Oncology Comment on above: Brain tumor (HCC) (P rimary Dx) Start: 08-18-2022 End: 08-18-2022 ambulatory TERRA WILLY Facility:[facility] Start: 08-13-2022 End: 08-29-2022 Evaluation and management of inpatient YVONNEANTOINETTE FARIASA Facility:[facility] Start: 08-10-2022 Telephone encounter Umm griffith RN Work Phone: [facility] [place] Comment on above: JACQUE post op Start: 08-10-2022 End: 08-11-2022 ambulatory TERRA AGUILERA Facility:[facility] Start: 08-08-2022 End: 08-08-2022 Evaluation and management of inpatient ROYAL VÁZQUEZ Facility:[facility] Start: 08-08-2022 End: 08-10-2022 Evaluation and management of inpatient JACKLYN MIR Facility:[facility] Start: 08-07-2022 Telephone encounter Sherry Winchester RN Work Phone: Hematology/Oncology Comment on above: Care Coordination (E R visit) Start: 08-04-2022 Telephone encounter Self [facility] Comment on above: Triage (Internal Ref erral) Start: 08-03-2022 Telephone encounter Self [facility] Comment on above: Triage (Internal) Care Coordination (N eurosurgery JACQUE) Start: 01-05-2022 End: 01-05-2022 Departed Referred MD Milvia Hinkle Work Phone: [facility] [place] Start: 04-07-2021 End: 04-08-2021 [facility] Facility:[facility] Procedures Date Procedure Procedure Detail Performing [...] count complete auto&auto difrntl wbc Zulma Mccarthy ACQUISITIONS ANALYST.MINE DEPUTY Work Phone: Start: 11-13-2022 Blood count complete auto&auto difrntl wbc Zulma Mccarthy ACQUISITIONS ANALYST.MINE DEPUTY Work Phone: Start: 11-09-2022 Blood count complete auto&auto difrntl wbc Zulma Mccarthy ACQUISITIONS ANALYST.MINE DEPUTY Work Phone: Start: 11-07-2022 Antibody screen MAX CRUZ Comment on above: Order Comment: Speci men Type: BLOOD SPECIMENOrdering Facility: [facility] Address: [address] [place] [address] Performed By: #### T SCR ####CC MAIN BLOOD BANKCLIA [id number] [address] Start: 09-11-2022 Blood count complete auto&auto difrntl wbc Zulma Mccarthy ACQUISITIONS ANALYST.MINE DEPUTY Work Phone: Start: 09-07-2022 Blood count complete auto&auto difrntl wbc Zulma Mccarthy ACQUISITIONS ANALYST.MINE DEPUTY Work Phone: Start: 09-04-2022 Blood count complete auto&auto difrntl wbc Zulma Mccarthy ACQUISITIONS ANALYST.MINE DEPUTY Work Phone: Start: 08-31-2022 Blood count complete auto&auto difrntl wbc Zulma Mccarthy ACQUISITIONS ANALYST.MINE DEPUTY Work Phone: Start: 08-10-2022 Antibody screen MAX CRUZ Comment on above: Order Comment: Speci men Type: BLOOD SPECIMENOrdering Facility: [facility] Address: [address] [place] [address] Performed By: #### T SCR30 ####CC MAIN BLOOD BANKCLIA [id number] [address] Start: 08-08-2022 Antibody screen MAX CRUZ Comment on above: Order Comment: Speci men Type: BLOOD SPECIMENOrdering Facility: [facility] Address: [address] [id number] Performed By: #### T SCR ####CC MAIN BLOOD BANKCLIA [id number] KAVITA ELLIOTT [address] OF [facility] Plan of Treatment Date Care Activity Detail Author Start: 02-28-2029 Urine microalbumin profile [facility] Start: 06-29-2026 Diabetes Screening Diabetes Screening [facility] Start: 05-29-2026 Diabetes Screening Diabetes Screening [facility] Start: 05-22-2026 Diabetes Screening Diabetes Screening [facility] Start: 05-04-2026 Diabetes Screening Diabetes Screening [facility] Start: 04-04-2026 Diabetes Screening Diabetes Screening [facility] Start: 03-07-2026 DIABETES SCREEN DIABETES SCREEN [facility] Start: 01-09-2026 DIABETES SCREEN DIABETES SCREEN [facility] Start: 12-20-2025 DIABETES SCREEN DIABETES SCREEN [facility] Start: 11-30-2025 DIABETES SCREEN DIABETES SCREEN [facility] Start: 11-17-2025 DIABETES SCREEN DIABETES SCREEN [facility] Start: 11-16-2025 DIABETES SCREEN DIABETES SCREEN [facility] Start: 11-13-2025 DIABETES SCREEN DIABETES SCREEN [facility] Start: 11-07-2025 DIABETES SCREEN DIABETES SCREEN [facility] Start: 11-02-2025 DIABETES SCREEN DIABETES SCREEN [facility] Start: 10-20-2025 DIABETES SCREEN DIABETES SCREEN [facility] Start: 10-06-2025 DIABETES SCREEN DIABETES SCREEN [facility] Start: 09-27-2025 DIABETES SCREEN DIABETES SCREEN [facility] Start: 09-19-2025 DIABETES SCREEN DIABETES SCREEN [facility] Start: 09-11-2025 DIABETES SCREEN DIABETES SCREEN [facility] Start: 09-04-2025 DIABETES SCREEN DIABETES SCREEN [facility] Start: 08-31-2025 DIABETES SCREEN DIABETES SCREEN [facility] Start: 08-21-2025 DIABETES SCREEN DIABETES SCREEN [facility] Start: 08-14-2025 DIABETES SCREEN DIABETES SCREEN [facility] Start: 08-08-2025 DIABETES SCREEN DIABETES SCREEN [facility] Start: 05-29-2024 BP Controlled (<130/80) BP Controlled (<130/80) [facility] Start: 04-04-2024 BP Controlled (<130/80) BP Controlled (<130/80) [facility] Start: 03-07-2024 BP CONTROLLED (<130/80) BP CONTROLLED (<130/80) [facility] Start: 01-10-2024 BP CONTROLLED (<130/80) BP CONTROLLED (<130/80) [facility] Start: 12-01-2023 BP CONTROLLED (<130/80) BP CONTROLLED (<130/80) [facility] Start: 11-18-2023 BP CONTROLLED (<130/80) BP CONTROLLED (<130/80) [facility] Start: 10-07-2023 BP CONTROLLED (<130/80) BP CONTROLLED (<130/80) [facility] Start: 09-21-2023 BP CONTROLLED (<130/80) BP CONTROLLED (<130/80) [facility] Start: 09-19-2023 BP CONTROLLED (<130/80) BP CONTROLLED (<130/80) [facility] Start: 09-14-2023 BP CONTROLLED (<130/80) BP CONTROLLED (<130/80) [facility] Start: 06-15-2023 End: 06-16-2023 Amylase [Enzymatic activity/volume] in Serum or Plasma AMYLASE BLD Lab STAT Glioblastoma (HCC) Expected: 06/15/2023 (Approximate), Expires: 06/16/2023 [place] [facility] Comment on above: Expected: 06/15/2023 (Approximate), Expi res: 06/16/2023 Start: 06-15-2023 End: 06-16-2023 aPTT in Platelet poor plasma by Coagulation assay ACTIVATED PTT Lab STAT Glioblastoma (HCC) Cerebral autosomal dominant arteriopathy with subcortical infarcts and leukoencephalopathy Expected: 06/15/2023 (Approximate), Expires: 06/16/2023 [facility] Work Phone: Comment on above: Expected: 06/15/2023 (Approximate), Expi res: 06/16/2023 Start: 06-15-2023 End: 06-16-2023 CBC W Auto Differential panel - Blood CBC + DIFF Lab STAT Glioblastoma (HCC) Expected: 06/15/2023 (Approximate), Expires: 06/16/2023 [facility] Work Phone: Comment on above: Expected: 06/15/2023 (Approximate), Expi res: 06/16/2023 Start: 06-15-2023 End: 06-16-2023 CLINICAL TRIAL DRAW CLINICAL TRIAL DRAW Lab STAT Glioblastoma (HCC) Expected: 06/15/2023 (Approximate), Expires: 06/16/2023 [facility] Work Phone: Comment on above: Expected: 06/15/2023 (Approximate), Expi res: 06/16/2023 Start: 06-15-2023 End: 06-16-2023 Comprehensive metabolic 2000 panel - Serum or Plasma COMP METABOLIC PANEL Lab STAT Glioblastoma (HCC) Expected: 06/15/2023 (Approximate), Expires: 06/16/2023 [facility] Work Phone: Comment on above: Expected: 06/15/2023 (Approximate), Expi res: 06/16/2023 Start: 06-15-2023 End: 06-16-2023 Lipase [Enzymatic activity/volume] in Serum or Plasma LIPASE BLD Lab STAT Glioblastoma (HCC) Expected: 06/15/2023 (Approximate), Expires: 06/16/2023 [facility] Work Phone: Comment on above: Expected: 06/15/2023 (Approximate), Expi res: 06/16/2023 Start: 06-15-2023 End: 06-16-2023 PT panel - Platelet poor plasma by Coagulation assay PROTHROMBIN TIME/PT Lab STAT Glioblastoma (HCC) Other specified disorders of central nervous system Expected: 06/15/2023 (Approximate), Expires: 06/16/2023 [facility] Work Phone: Comment on above: Expected: 06/15/2023 (Approximate), Expi res: 06/16/2023 Start: 06-15-2023 End: 06-16-2023 URINALYSIS, DIPSTICK ONLY URINALYSIS, DIPSTICK ONLY Lab STAT Glioblastoma (HCC) Expected: 06/15/2023 (Approximate), Expires: 06/16/2023 [facility] Work Phone: Comment on above: Expected: 06/15/2023 (Approximate), Expi res: 06/16/2023 Start: 06-11-2023 End: 09-10-2023 Basic metabolic 2000 panel - Serum or Plasma BASIC METABOLIC PNL Lab Routine Presence of IVC filter Expected: 06/11/2023 (Approximate), Expires: 09/10/2023 [facility] Work Phone: Comment on above: Expected: 06/11/2023 (Approximate), Expi res: 09/10/2023 Start: 06-11-2023 End: 09-10-2023 CBC W Auto Differential panel - Blood CBC + DIFF Lab Routine Presence of IVC filter Expected: 06/11/2023 (Approximate), Expires: 09/10/2023 [facility] Work Phone: Comment on above: Expected: 06/11/2023 (Approximate), Expi res: 09/10/2023 Start: 06-11-2023 End: 09-10-2023 PT panel - Platelet poor plasma by Coagulation assay PROTHROMBIN TIME/PT Lab Routine Presence of IVC filter Expected: 06/11/2023 (Approximate), Expires: 09/10/2023 [facility] Work Phone: Comment on above: Expected: 06/11/2023 (Approximate), Expi res: 09/10/2023 Start: 05-29-2023 End: 07-29-2023 CBC W Auto Differential panel - Blood CBC + DIFF Lab Routine Glioblastoma multiforme (HCC) Expected: 05/29/2023, Expires: 07/29/2023 [facility] Work Phone: Comment on above: Expected: 05/29/2023, Expires: Start: 05-29-2023 End: 07-29-2023 Comprehensive metabolic 2000 panel - Serum or Plasma COMP METABOLIC PANEL Lab Routine Glioblastoma multiforme (HCC) Expected: 05/29/2023, Expires: 07/29/2023 [facility] Work Phone: Comment on above: Expected: 05/29/2023, Expires: Start: 05-04-2023 End: 07-04-2023 CBC W Auto Differential panel - Blood CBC + DIFF Lab Routine Glioblastoma multiforme (HCC) Expected: 05/04/2023 (Approximate), Expires: 07/04/2023 [facility] Work Phone: Comment on above: Expected: 05/04/2023 (Approximate), Expi res: 07/04/2023 Start: 05-04-2023 End: 07-04-2023 Comprehensive metabolic 2000 panel - Serum or Plasma COMP METABOLIC PANEL Lab Routine Glioblastoma multiforme (HCC) Expected: 05/04/2023 (Approximate), Expires: 07/04/2023 [facility] Work Phone: Comment on above: Expected: 05/04/2023 (Approximate), Expi res: 07/04/2023 Start: 05-04-2023 End: 05-03-2024 Mri brain brain stem w/o w/contrast material MRI BRAIN WO/W IVCON Radiology Routine Glioblastoma multiforme (HCC) Expected: 05/04/2023 (Approximate), Expires: 05/03/2024 [facility] Work Phone: Comment on above: Expected: 05/04/2023 (Approximate), Expi res: 05/03/2024 Start: 03-23-2023 Covid-19 Vaccine ( season) Covid-19 Vaccine ( season) [facility] Start: 03-23-2023 Influenza vaccination [facility] Start: 03-07-2023 End: 05-07-2023 CBC W Auto Differential panel - Blood CBC + DIFF Lab Routine Glioblastoma multiforme (HCC) Expected: 03/07/2023 (Approximate), Expires: 05/07/2023 [facility] Work Phone: Comment on above: Expected: 03/07/2023 (Approximate), Expi res: 05/07/2023 Start: 03-07-2023 End: 05-07-2023 Comprehensive metabolic 2000 panel - Serum or Plasma COMP METABOLIC PANEL Lab Routine Glioblastoma multiforme (HCC) Expected: 03/07/2023 (Approximate), Expires: 05/07/2023 [facility] Work Phone: Comment on above: Expected: 03/07/2023 (Approximate), Expi res: 05/07/2023 Start: 02-08-2023 End: 02-08-2024 Mri brain brain stem w/o w/contrast material MRI BRAIN WO/W IVCON Radiology Routine Glioblastoma multiforme (HCC) Expected: 02/08/2023 (Approximate), Expires: 02/08/2024 [facility] Work Phone: Comment on above: Expected: 02/08/2023 (Approximate), Expi res: 02/08/2024 Start: 01-10-2023 End: 03-12-2023 CBC W Auto Differential panel - Blood CBC + DIFF Lab Routine Glioblastoma multiforme (HCC) Expected: 01/10/2023 (Approximate), Expires: 03/12/2023 [facility] Work Phone: Comment on above: Expected: 01/10/2023 (Approximate), Expi res: 03/12/2023 Start: 01-10-2023 End: 03-12-2023 Comprehensive metabolic 2000 panel - Serum or Plasma COMP METABOLIC PANEL Lab Routine Glioblastoma multiforme (HCC) Expected: 01/10/2023 (Approximate), Expires: 03/12/2023 [facility] Work Phone: Comment on above: Expected: 01/10/2023 (Approximate), Expi res: 03/12/2023 Start: 12-21-2022 End: 02-20-2023 CBC W Auto Differential panel - Blood CBC + DIFF Lab Routine Glioblastoma multiforme (HCC) Expected: 12/21/2022 (Approximate), Expires: 02/20/2023 [facility] Work Phone: Comment on above: Expected: 12/21/2022 (Approximate), Expi res: 02/20/2023 Start: 12-21-2022 End: 02-20-2023 Comprehensive metabolic 2000 panel - Serum or Plasma COMP METABOLIC PANEL Lab Routine Glioblastoma multiforme (HCC) Expected: 12/21/2022 (Approximate), Expires: 02/20/2023 [facility] Work Phone: Comment on above: Expected: 12/21/2022 (Approximate), Expi res: 02/20/2023 Start: 12-01-2022 End: 01-31-2023 CBC W Auto Differential panel - Blood CBC + DIFF Lab Routine Glioblastoma multiforme (HCC) Expected: 12/01/2022 (Approximate), Expires: 01/31/2023 [facility] Work Phone: Comment on above: Expected: 12/01/2022 (Approximate), Expi res: 01/31/2023 Start: 12-01-2022 End: 01-31-2023 Comprehensive metabolic 2000 panel - Serum or Plasma COMP METABOLIC PANEL Lab Routine Glioblastoma multiforme (HCC) Expected: 12/01/2022 (Approximate), Expires: 01/31/2023 [facility] Work Phone: Comment on above: Expected: 12/01/2022 (Approximate), Expi res: 01/31/2023 Start: 11-16-2022 End: 01-16-2023 CBC W Auto Differential panel - Blood CBC + DIFF Lab Routine Glioblastoma multiforme (HCC) Expected: 11/16/2022 (Approximate), Expires: 01/16/2023 [facility] Work Phone: Comment on above: Expected: 11/16/2022 (Approximate), Expi res: 01/16/2023 Start: 11-16-2022 End: 01-16-2023 Comprehensive metabolic 2000 panel - Serum or Plasma COMP METABOLIC PANEL Lab Routine Glioblastoma multiforme (HCC) Expected: 11/16/2022 (Approximate), Expires: 01/16/2023 [facility] Work Phone: Comment on above: Expected: 11/16/2022 (Approximate), Expi res: 01/16/2023 Start: 11-16-2022 End: 12-02-2023 Mri brain brain stem w/o w/contrast material MRI BRAIN WO/W IVCON Radiology Routine Glioblastoma multiforme (HCC) Expected: 11/16/2022, Expires: 12/02/2023 [facility] Work Phone: Comment on above: Expected: 11/16/2022, Expires: 4 Start: 11-16-2022 End: 01-16-2023 Thyrotropin [Units/volume] in Serum or Plasma TSH BLD Lab Routine Glioblastoma multiforme (HCC) 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) Expected: 11/16/2022 (Approximate), Expires: 01/16/2023 [facility] Work Phone: Comment on above: Expected: 11/16/2022 (Approximate), Expi res: 01/16/2023 Start: 10-20-2022 End: 12-20-2022 CBC W Auto Differential panel - Blood CBC + DIFF Lab Routine Glioblastoma multiforme (HCC) Expected: 10/20/2022, Expires: 12/20/2022 [facility] Work Phone: Comment on above: Expected: 10/20/2022, Expires: 3 Start: 10-20-2022 End: 12-20-2022 Comprehensive metabolic 2000 panel - Serum or Plasma COMP METABOLIC PANEL Lab Routine Glioblastoma multiforme (HCC) Expected: 10/20/2022, Expires: 12/20/2022 [facility] Work Phone: Comment on above: Expected: 10/20/2022, Expires: 3 Start: 10-06-2022 End: 12-06-2022 CBC W Auto Differential panel - Blood CBC + DIFF Lab Routine Glioblastoma multiforme (HCC) Expected: 10/06/2022, Expires: 12/06/2022 [facility] Work Phone: Comment on above: Expected: 10/06/2022, Expires: 3 Start: 10-06-2022 End: 12-06-2022 Comprehensive metabolic 2000 panel - Serum or Plasma COMP METABOLIC PANEL Lab Routine Glioblastoma multiforme (HCC) Expected: 10/06/2022, Expires: 12/06/2022 [facility] Work Phone: Comment on above: Expected: 10/06/2022, Expires: Start: 10-04-2022 End: 12-04-2022 CBC W Auto Differential panel - Blood CBC + DIFF Lab Routine Glioblastoma multiforme (HCC) Expected: 10/04/2022 (Approximate), Expires: 12/04/2022 [facility] Work Phone: Comment on above: Expected: 10/04/2022 (Approximate), Expi res: 12/04/2022 Start: 10-04-2022 End: 12-04-2022 Comprehensive metabolic 2000 panel - Serum or Plasma COMP METABOLIC PANEL Lab Routine Glioblastoma multiforme (HCC) Expected: 10/04/2022 (Approximate), Expires: 12/04/2022 [facility] Work Phone: Comment on above: Expected: 10/04/2022 (Approximate), Expi res: 12/04/2022 Start: 09-19-2022 End: 11-19-2022 CBC W Auto Differential panel - Blood [facility] Work Phone: Comment on above: Expected: 09/19/2022 (Approximate), Expi res: 11/19/2022 Expected: 09/19/2022 , Expires: 11/19/2022 Start: 09-19-2022 End: 11-19-2022 Comprehensive metabolic 2000 panel - Serum or Plasma [facility] Work Phone: Comment on above: Expected: 09/19/2022 (Approximate), Expi res: 11/19/2022 Expected: 09/19/2022 , Expires: 11/19/2022 Start: 07-23-2022 ADVANCE DIRECTIVE DISCUSSION ADVANCE DIRECTIVE DISCUSSION [facility] Start: 07-23-2022 DEPRESSION ASSESSMENT DEPRESSION ASSESSMENT [facility] Start: 03-23-2022 Influenza vaccination INFLUENZA (#1) [facility] Start: 01-17-2022 COVID-19 VACCINE (5 - Booster for Pfizer series) COVID-19 VACCINE (5 - Booster for Pfizer series) [facility] Start: 01-17-2022 COVID-19 VACCINE (5 - Pfizer risk series) COVID-19 VACCINE (5 - Pfizer risk series) [facility] Start: 05-29-2014 SHINGRIX VACCINE (1 of 2) SHINGRIX VACCINE (1 of 2) [facility] Start: 05-29-2014 SHINGRIX VACCINE (2 of 3) SHINGRIX VACCINE (2 of 3) [facility] Start: 01-08-2008 BONE DENSITY BONE DENSITY [facility] Start: 01-08-2008 Bone Density Screening Bone Density Screening [facility] Start: 01-08-2008 PNEUMOCOCCAL: 65+ (1 - PCV) PNEUMOCOCCAL: 65+ (1 - PCV) [facility] Start: 01-08-2008 Screening for osteoporosis Bone Density Screening [facility] Start: 2003 RSV Vaccine (1 - 1-dose 60+ series) RSV Vaccine (1 - 1-dose 60+ series) [facility] Start: 1993 SHINGRIX VACCINE (1 of 2) SHINGRIX VACCINE (1 of 2) [facility] Start: 01-08-1988 DIABETES SCREEN DIABETES SCREEN [facility] Start: 1962 Urine microalbumin profile DTAP,TDAP,TD (1 - Tdap) [facility] Start: 1961 ANNUAL PCP TEAM CHRONIC DISEASE VISIT ANNUAL PCP TEAM CHRONIC DISEASE VISIT [facility] Start: 1961 BP CONTROLLED (<130/80) BP CONTROLLED (<130/80) [facility] Start: 1943 COVID-19 VACCINE (#1) COVID-19 VACCINE (#1) [facility] End: 06-17-2024 CBC W Auto Differential panel - Blood CBC + DIFF Lab STAT Glioblastoma (HCC) Once per week for 6 Occurrences starting 06/18/2023 until 06/17/2024 [facility] Work Phone: Comment on above: Once per week for 6 Occurrences starting 06/18/2023 until 06/17/2024 End: 06-17-2024 Comprehensive metabolic 2000 panel - Serum or Plasma COMP METABOLIC PANEL Lab STAT Glioblastoma (HCC) Once per week for 6 Occurrences starting 06/18/2023 until 06/17/2024 [facility] Work Phone: Comment on above: Once per week for 6 Occurrences starting 06/18/2023 until 06/17/2024 CT SIM PLANNING RADIATION ONCOLOGY CT SIM PLANNING RADIATION ONCOLOGY Radiology Routine Brain tumor (HCC) Ordered: 08/24/2022 [facility] Work Phone: Comment on above: Ordered: 08/24/2022 End: 06-08-2024 ECG COMPLETE ECG COMPLETE ECG Routine Glioblastoma (HCC) 1 Occurrences starting 06/09/2023 until 06/08/2024 [facility] Work Phone: Comment on above: 1 Occurrences starting 06/09/2023 until 06/08/2024 IR IVC FILTER REMOVAL IR IVC MARY TER REMOVAL Radiology Routine S/P IVC filter Ordered: 05/07/2023 [facility] Work Phone: Comment on above: Ordered: 05/07/2023 End: 12-13-2023 Mri brain brain stem w/o w/contrast material MRI BRAIN WO/W IVCON Radiology Routine Glioblastoma multiforme (HCC) 1 Occurrences starting 11/13/2022 until 12/13/2023 [facility] Work Phone: Comment on above: 1 Occurrences starting 11/13/2022 until 12/13/2023 End: 07-06-2024 Mri brain brain stem w/o w/contrast material MRI BRAIN WO/W IVCON Radiology Routine Glioblastoma (HCC) 1 Occurrences starting 06/07/2023 until 07/06/2024 [facility] Work Phone: Comment on above: 1 Occurrences starting 06/07/2023 until 07/06/2024 End: 07-17-2024 Mri brain brain stem w/o w/contrast material MRI BRAIN WO/W IVCON Radiology Routine Glioblastoma (HCC) 1 Occurrences starting 06/18/2023 until 07/17/2024 [facility] Work Phone: Comment on above: 1 Occurrences starting 06/18/2023 until 07/17/2024 Patient Education Generalized Weakness [facility] Work Phone: Patient referral [facility] Work Phone: End: 07-17-2024 SPIROMETRY BASELINE ONLY SPIROMETRY BASELINE ONLY PFT Routine Glioblastoma (HCC) 1 Occurrences starting 06/18/2023 until 07/17/2024 [facility] Work Phone: Comment on above: 1 Occurrences starting 06/18/2023 until 07/17/2024 End: 09-14-2023 US LEG VEIN DVT [facility] US LEG VEIN DVT [facility] Vascular Lab Routine Personal history of DVT (deep vein thrombosis) 1 Occurrences starting 09/14/2022 until 09/14/2023 [facility] Work Phone: Comment on above: 1 Occurrences starting 09/14/2022 until 09/14/2023 [facility] Immunizations Immunization Date Immunization Notes Care Provider [facility] 04-24-2022 influenza, high-dose , quadrivalent vaccine (FLUZONE HIGH DOSE QUADRIVALENT) Anshul Riggs MD Work Phone: [facility] 04-24-2022 influenza virus vacc ine, unspecified formulation Anshul Riggs MD Work Phone: [facility] 11-22-2021 COVID-19 original vaccine, full dose, monovalent (MODERNA) Anshul Riggs MD Work Phone: [facility] 06-20-2021 COVID-19 original vaccine, age 12+ yr, monovalent (PFIZER-Vertical AcuityNTFAD ? IO - PURPLE TOP) Anshul Riggs MD Work Phone: [facility] 05-03-2021 influenza (aIIV4) vaccine, age 65+ yr, quadrivalent, PF (FLUAD QUADRIVALENT) Anshul Riggs MD Work Phone: [facility] 09-16-2020 COVID-19 original vaccine, age 12+ yr, monovalent (PFIZER-BIONTECH - PURPLE TOP) Anshul Riggs MD Work Phone: [facility] 08-19-2020 COVID-19 original vaccine, age 12+ yr, monovalent (PFIZER-BIONTECH - PURPLE TOP) Anshul Riggs MD Work Phone: [facility] 03-23-2020 influenza, high-dose , quadrivalent vaccine (FLUZONE HIGH DOSE QUADRIVALENT) Anshul Riggs MD Work Phone: [facility] 05-01-2019 influenza, injectabl e, quadrivalent, preservative free Anshul Riggs MD Work Phone: [facility] 04-30-2019 influenza, high dose seasonal, preservative-free Anshul Riggs MD Work Phone: [facility] 02-28-2019 tetanus toxoid, redu shae diphtheria toxoid, and acellular pertussis vaccine, adsorbed Anshul Riggs MD Work Phone: [facility] 04-04-2017 influenza, high dose seasonal, preservative-free Anshul Riggs MD Work Phone: [facility] 05-04-2016 influenza, injectabl e, quadrivalent, preservative free Anshul Riggs MD Work Phone: [facility] 03-18-2015 influenza, injectabl e, quadrivalent, preservative free Anshul iRggs MD Work Phone: [facility] 03-17-2015 influenza, high dose seasonal, preservative-free Anshul Riggs MD Work Phone: [facility] 11-20-2014 pneumococcal conjuga te vaccine, 13 valent Anshul Riggs MD Work Phone: [facility] 04-03-2014 zoster vaccine, live Anshul munoz MD Work Phone: [facility] 03-23-2014 influenza, injectabl e, quadrivalent, preservative free Anshul Riggs MD Work Phone: [facility] 04-24-2013 influenza, high dose seasonal, preservative-free Anshul Riggs MD Work Phone: [facility] 04-24-2013 influenza, seasonal, injectable, preservative free Anshul Riggs MD Work Phone: [facility] 06-15-2011 influenza, seasonal, injectable, preservative free Anshul Riggs MD Work Phone: [facility] 06-15-2011 pneumococcal polysaccharide vaccine, 23 valent Anshul Riggs MD Work Phone: [facility] 08-15-2008 tetanus and diphther ia toxoids, adsorbed, preservative free, for adult use (5 Lf of tetanus toxoid and 2 Lf of diphtheria toxoid) Anshul Riggs MD Work Phone: [facility] Payers Date Payer Category Payer Self-pay [id number] 2020 Unknown [id number] 2007 Medicare MEDICARE MEDICAR E A AND B [id number] 2007-Present [phone] [place] [address] Medicare [id number] 1959 Medicare [id number] 1959 Unknown [id number] 1943 Unknown [id number] Unknown [facility] Health Claims [id number] Unknown [id number] Social History Date Type Detail Facility Tobacco smoking status [facility] Unknown if ever smoked [facility] Work Phone: Start: 1945 Sex Assigned At Female [facility] Tobacco smoking status [facility] Tobacco smoking consumption unknown [facility] Work Phone: Start: 1945 Sex Assigned At Not on file [facility] Start: 08-07-2022 End: 07-18-2023 Tobacco smoking status [place] Never smoked tobacco [facility] Start: 08-07-2022 End: 06-15-2023 Alcohol intake Ex-drinker (finding) [facility] Start: 09-12-2022 End: 01-09-2023 Tobacco use and exposure Smokeless tobacco non-user [facility] Start: 09-12-2022 End: 11-06-2022 Alcohol intake [facility] Start: 09-12-2022 Alcohol Comment 1 glass per day [facility] Start: 11-06-2022 History SDOH Financial 5 [facility] Start: 11-06-2022 History SDOH Food Worry 1 [facility] Start: 11-06-2022 History SDOH Transport Med 2 [facility] Start: 11-06-2022 End: 02-07-2023 Tobacco use panel [facility] How hard is it for you to pay for the very basics like food, housing, medical care, and heating Not hard at all [facility] (I/We) worried whether (my/our) food would run out before (I/we) got money to buy more. Never true [facility] In the past 12 months, was there a time when you were not able to pay the mortgage or rent on time? No [facility] NEGATED: Highlighted rowStart: NINF History of tobacco use Passive smoker [facility] Medical Equipment Procedure Code Equipment Code Equipment Origin al Text Equipment Identifier Dates Plate Low Profil e Titanium 12mm Bone 2 Hole Bar 1.5mm Screw Nonsterile - [id number] Start: 08-14-2022 Screw Bone Unive rsal Neuro 3 4mm 1.5mm Self Drill Axial Stability Latex - [id number] Start: 08-14-2022 System Option 6. 5fr 0-32mm 5fr 70cm Embolic Protection Filter Kit - [id number] Start: 08-18-2022 Clinical Notes 08-01-2022 to 07-25-2023 Telephone Encounter - Yaneth Chicas RPh - 06/29/2023 10:25 AM ESTSDariela solares LSW - 06/25/2023 1:24 PM ESTTelephone Encounter - Abigail Crzu RN - 06/23/2023 9:32 AM ESTPatient Instructions Note Date & Type Note Facility 07-25-2023 Note HNO ID: [id number] Author: Anshul Riggs MD Service: ? Author Type: Physician Type: Progress Notes Filed: 07/25/2023 5:02 PM Note Text: II spoke to her daughters regarding her prognosis and also hospice care. Will see her on Sunday t o further discuss [facility] 07-10-2023 Note [facility] 06-29-2023 Note [facility] 06-29-2023 Miscellaneous Notes Mr. Mae stopped in pharmacy to inquire about assistance for Gleostine. Currently all grants for glioblastoma are closed. [facility] PAP application initiated and signed by Marilin. Mr. Mae stated he will drop off 2021 tax returns. Her next dose is due 08/03/23. Once we have tax returns, we will fax application. Yaneth Chicas RPh documented in this encounter [facility] 06-25-2023 Note [facility] 06-25-2023 History of Present illness Narrative Social Work Problem Referral Note INFORMATION/REFERRAL : Marilin Mae 78 year old female was [facility] by physician - [facility] the following reason(s): home care IMPRESSION/PLAN: SW received referral from Dr. Martins sharing that home care orders were sent to [facility] Home care on behalf of pt. [facility] home care does not service pt's area, and shared that pt has been connected with [facility] in the past. SW printed and faxed pt's needed information and home health orders to [facility] for review. SW provided update to pt's regional social media intern, Marian UREÑA. SW received fax that forms were faxed successfully to [facility]. F/U APPOINTMENT: PRN Assigned SW listed in Care Team tab: Yes, LI Bartlett documented in this encounter [facility] 06-23-2023 Miscellaneous Notes Thank you for the referral of your patient to [facility]. Unfortunately, we have to decline the referral as your patient lives outside our service area. Thank you, Abigail Cruz RN 06/23/2023 9:33 AM documented in this encounter [facility] 06-22-2023 Miscellaneous Notes Labs drawn 05/29/2023 and results reviewed. Per Dr. Martins proceed with cycle #1 160 mg, 90mg/m2 x BSA 1.76 = 158.4mg. Will check labs again at week 3: 07/11/23, week 4: 07/18/23, week 5: 07/25/23 and week 6: 08/01/23 Plan to start next cycle #2 beginning 08/02/2023 if all is well. documented in this encounter [facility] 06-18-2023 Note [facility] 06-18-2023 Note [facility] 06-18-2023 Note [facility] 06-18-2023 Note [facility] 06-18-2023 History of Present illness Narrative [facility] received prescription(s) for Gleostine from Dr. Martins's office. Benefits investigation was conducted, indicating that a prior authorization is not required at this time per patient's plan with [employer]. Prescriptions will now be processed through [facility] for determination of next steps. Sary Ziegler (Private Investigator) Addendum June 18, 2023 5:50 PM : [...] this time. Patient will be referred to [facility] Assistance [facility]. Note will be update once pt is contacted. Lyudmila Brown, PharmD Clinical Pharmacist, Oncology [facility] Pharmacy P: , F: Pool: P [facility] Pool #: [id number] documented in this encounter [facility] 06-15-2023 Note [facility] 06-15-2023 Instructions Adolfo Martins MD, PhD - 06/15/2023 11:30 AM EST Steroids: change dose to 2mg daily x 1 week then 2mg every other day Lung test before starting chemotherapy (PFTs) Lomustine chemotherapy Lasix (water pill) -- 20mg daily Celexa (citalopram) increase to 1 and a half tablets daily (from 1 tab daily) MRI in July documented in this encounter [facility] 06-15-2023 History of Present illness Narrative Images from the original note were not included. [facility] New Patient Consultation Referred by Anshul Riggs [address] [place] [address] Diagnosis: Glioblastoma, WHO Grade 4, IDHwt, MGMT [...] of multifocal lesion by Dr. Mir at [facility]. 09/13-10/24/2022: Concurrent 6 weeks TMZ and [...] normally inhale and , no vocal tremor Uczjwg-vxkxvyr-wsitydowek articulation: Able to repeat the syllables /pa/ [...] Negative Oliva's sign Negative Negative Cerebellar testing: Fpurhh-zi-Wciv: No dysmetria Ocular saccades: Smooth pursuit bilaterally, [...] and IDH2 Gene Analysis Laboratory Accession Number: [id number] Case #: [id number] Block #: B2 Sample Type: FFPET % Tumor: 70 Result: IDH1 - No variant detected [Reference sequence: (NM_[id number])]. IDH2 - No variant detected [Reference sequence: (NM_[id number])]. Interpretation: No cancer-related sequence changes were identified in IDH1 codon 132, IDH2 codon 172 or other mutation hotspots within the IDH1 or IDH2 genes. MGMT METHYLATION MGMT Methylation Laboratory Accession Number: [id number] Case #: [id number] Block #: B2 % Tumor: 70 Result: Hypermethylated (The mean methylation of MGMT promoter region is greater than or equal to 12%) Tissue Analyzed: right parietal lesion FISH FOR 1P/19Q FISH for 1p/19q Laboratory Accession Number: [id number] Case: [id number] Block: B2 Sample Type: FFPET Sample Description: BRAIN, RIGHT PARIETAL LESION Received Date: 2022-08-17 14:08:38 RESULTS: Chromosome 1p: INTACT, EUSOMIC Chromosome 19q: INTACT, EUSOMIC FISH FOR EGFR FISH for EGFR Laboratory Accession Number: [id number] Case: [id number] Block: B2 Sample Type: FFPET Sample Description: [...] DATE OF EXAM: May 25 2023 2:46PM [facility] 0295 - MRI BRAIN WO/W IVCON [...] findings are unchanged since the prior exam. Gun Numberer: DOV Transcribe Date/Time: May 25 2023 4:35P [...] any questions or changes Adolfo Martins MD DPfll [facility] Medical Neuro-Oncology Staff Physician Joslyn Couch [facility], [facility] June 14, 2023 [facility] CC: Patient Care Team: Milvia Hinkle as PCP - General (Family Medicine) Sherry Winchester, RN as Specialty Skidway Man (Hematology/Oncology) Anshul Riggs MD as Physician (Hematology/Oncology) Jessica Cartagena PA-C as Physician Mainframe Systems Engineer (Hematology/Oncology) Marian Spangler LSW as Department Assistant documented in this encounter [facility] 06-15-2023 Nurse Note Additional intake questions: Has the patient had fever, nausea, vomiting, diarrhea, constipation, fatigue for > 1 week? Yes, fatigue and Provider Notified Does the patient have a decreased appetite? No Does patient want to see a In Class Special Education Teacher? No (yes to any of above refer patient to schedulers for dietitian appointment) ) Does patient have any new or increased numbness or tingling of extremities? No Is patient interested in fertility information? No Does patient need any prescription refills? No Does patient have an advanced directive in place? No, Patient referred to Resource Center documented in this encounter [facility] 06-05-2023 Miscellaneous Notes Called pt. Spoke to [...] for clinical trial. documented in this encounter [facility] 05-31-2023 Note [facility] 05-31-2023 Note [facility] 05-31-2023 History of Present illness Narrative [...] her in our Brain Tumor Clinic at [facility] to assess her for treatments including clinical trials. Dr. Riggs, Please kindly inform the patient, and let us know if the patient wishes to see us in our clinic in [place]. We will make arrangements to see her only if the patients agrees. This will need to be most preferably an in person visit. Please let me know if this meets your approval, and I am happy to discuss further. Thank you, Ned Duff MD Staff Neuro-Oncologist Federico Couch [facility], [facility] [phone] [facility] [address] Tumor Board 05/31/2023 [facility] [...] May 31, 2023 17 [facility] [id number] Glioblastoma Glioblastoma Ophelia 05/25/23, 02/23/23, 12/08/22 No Unknown 78 y/o female with dx with GBM with methylated MGMT,EGFR amplified 08/14/2022 s/p R parietal craniotomy for resection of multifocal brain lesion. Post op c/b DVT and subdural hematoma (s/p IVC filter-since removed and now on Eliquis) Completed Temodar and XRT 10/24/2022 and ADJ TMZ x 6 xoxete-hxlqxyhjq-6/2023. MRI 05/25 concerning for progression Radiology diff dx - concern for progression Also treatment options. 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 Post op c/b DVT and subdural hematoma (s/p IVC filter-since removed and now on Eliquis) Completed Temodar and XRT 10/24/2022 and ADJ TMZ x 6 wajuvi-zmyyilizl-5/2023. MRI 05/25 concerning for progression Radiology diff dx - concern for progression Also treatment options. Recommend evaluate patient in clinic for Clinical Trials: GCAR for progressive disease Or even To look at other potential trials i.e., [place] - wait list only, Part 1 closed VS SOC documented in this encounter [facility] 05-31-2023 Note [facility] 05-31-2023 History of Present illness Narrative Clinical Trial Inquiry: Please note this is an abstract note serving only to load and organize information prior to patient's visit to [facility] (new consult) or visit to treating physician (established patient). This includes information gathered from outside records and/or information that has been previously documented in [facility] and will be confirmed with the patient and modified should patient proceed with clinical trials. Requested by: Dt. 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 - on hold [place] - wait list only, Part 1 closed [facility] 1Z22 - wait list only, multiple [facility] patients in queue (>2 months) Potentials: [facility]AR PD -Lomustine SOC vs Troriluzole+Lomustine vs [id number] -KPS needs to be>/= 70 -dex must [...] 05/31/2023 9:03 AM documented in this encounter [facility] 05-29-2023 Note [facility] 05-25-2023 Miscellaneous Notes Radiology Service Progress [...] TIME: 2:17 PM documented in this encounter [facility] 05-25-2023 Nurse Note Radiology Service Progress Note [...] TIME: 2:45 PM documented in this encounter [facility] 05-14-2023 Miscellaneous Notes SPOKE WITH PT AGREED TO DOS 05/24 IVC FILTER REMOVAL @ 1 INTERVENTIONAL RADIOLOGY PATIENT APPOINTMENT REQUEST May 11, 2023 Marilin Mae [id number] Request: Schedule Requestor: Milla Rangel PA-C Ref.Physician: [...] Sedation Bed Reservation: No Location of Procedure: [facility] documented in this encounter [facility] 05-08-2023 Note [facility] 05-08-2023 History of Present illness Narrative [...] a copy of the consent form on [employer]. Due to the need for ongoing mental health services, the following visit was completed virtually to reduce the risk of COVID-19 exposure. Consent related to virtual visits was obtained verbally. Audio and video quality were good, and connectivity was generally continuous. Chief Complaint/Reason: anxiety [facility] Psycho-Oncology Program CONFIDENTIAL INITIAL PSYCHOLOGICAL EVALUATION DATE OF SERVICE: May 08, 2023 SERVICE/CPT CODE: 35599 Initial Psychodiagnostic Evaluation, 9:15a to 10:18a PRESENT: Patient; Collateral Parties: child: Daniella, adult daughter REFERRAL SOURCE: [facility] Physician - Anshul De La O [...] urgent issue arises. Provided information about the [place] National Suicide and Crisis Line. Provided information about support services offered at [facility] and within the community and encouraged participation in services for additional coping and support. Co-manage patient's mental health care with her care team. Will communicate with oncology team members as needed for treatment planning purposes. Thank you for referring this patient. Please do not hesitate to call or page with any questions or concerns. Diya Murry, Ph.D. Clinical Psychologist, [facility] Ext: , Pager: [phone] Discussed the Agreement for Psychological Evaluation & [...] during school age. Marilin Mae lives in [place], [place] with her . Abuse history not discussed. Marital Status: Children: Yes, Daniella and sisters Vianney Grandchildren: Yes, 4 , 5 great kids Spiritual/Restoration affiliation: No baptism affiliation discussed Spiritual concerns noted: No Financial [...] compliance with limited effect. GOALS/OBJECTIVES/INTERVENTIONS: Therapist used HI, Solution focused and Supportive therapy to assist [...] by the patient. documented in this encounter [facility] 05-04-2023 Note [facility] 05-04-2023 History of Present illness Narrative ativanPATIENT NAME: Marilin Mae [facility] NO.: [id number] ATTENDING PHYSICIAN: Anshul Riggs MD DATE OF [...] Range Status 04/04/2023 1.7 % Final Abs Butte Date Value Ref Range Status 04/04/2023 0.16 [...] do not hesitate to contact me at [phone]. Anshul Riggs MD Hematology/Medical Oncology [facility] I spent a total of 30 minutes on the date of the service which included preparing to see the patient, ucka-lo-yzwc patient care, completing clinical documentation, obtaining and/or reviewing separately obtained history, performing a medically appropriate examination, counseling and educating the patient/family/caregiver, and ordering medications, tests, or procedures. CC: Milvia Hinkle MD documented in this encounter [facility] 04-30-2023 Note [facility] 04-30-2023 History of Present illness Narrative Heart, Vascular & Thoracic [place] Department of Cardiovascular Medicine VIRTUAL VIDEO VISIT [...] visit. Either the patient or their legal benefits representative has been informed of the risks [...] 2023 1:58 PM documented in this encounter [facility] 04-09-2023 Miscellaneous Notes Referral to Oncology [facility] - psychiatry and psychology. Left a voicemail with information on how to call back and schedule. Will continue to follow up. Munira Maloney April 09, 2023 documented in this encounter [facility] 04-04-2023 Note [facility] 04-04-2023 History of Present illness Narrative ativanPATIENT NAME: Marilin Mae [facility] NO.: [id number] ATTENDING PHYSICIAN: Anshul Riggs MD DATE OF [...] Range Status 03/07/2023 2.6 % Final Abs Butte Date Value Ref Range Status 03/07/2023 0.26 [...] do not hesitate to contact me at [phone]. Anshul Riggs MD Hematology/Medical Oncology [facility] Ohara spent a total of 30 minutes on the date of the service which included preparing to see the patient, hssd-wg-gfth patient care, completing clinical documentation, obtaining and/or reviewing separately obtained history, performing a medically appropriate examination, counseling and educating the patient/family/caregiver, and ordering medications, tests, or procedures. CC: Milvia Hinkle MD documented in this encounter [facility] 04-02-2023 Miscellaneous Notes Called and spoke with pt's . He will have pt stop her evening dose of ritalin, and will continue morning dose for now. Sherry Winchester RN They can stop that Call received from pt's daughter stating pt can't continue taking the Ritalin BID because it's keeping her awake at night. Please advise Sherry Winchester RN documented in this encounter [facility] 03-27-2023 Miscellaneous Notes Called to inquire if pt feeling less tired with increase of Ritalin. She does note improvement. BOOGIE/MM: pended new RX. Please review and sign if agreeable. Tiffany Coffman RN documented in this encounter [facility] 03-23-2023 Miscellaneous Notes Pt's and daughter notified. They will try this over the weekend and if it helps pt will need a refill with new instructions on Sunday. Sherry Winchester RN She can take the 5 mg BID Pt daughter requesting increase of Ritalin. Mother remains tired on the 5 mgs. BOOGIE/MM: please advise Tiffany Coffman RN documented in this encounter [facility] 03-13-2023 Miscellaneous Notes Telephone Encounter~ Person of [...] March 13, 2023 documented in this encounter [facility] 03-07-2023 Note [facility] 02-23-2023 Miscellaneous Notes Radiology Service Progress [...] TIME: 11:48 AM documented in this encounter [facility] 02-07-2023 Note [facility] 02-07-2023 History of Present illness Narrative ativanPATIENT NAME: Marilin Mae [facility] NO.: [id number] ATTENDING PHYSICIAN: Anshul Riggs MD DATE OF [...] Range Status 01/09/2023 0.9 % Final Abs Butte Date Value Ref Range Status 01/09/2023 0.09 [...] do not hesitate to contact me at [phone]. Anshul Riggs MD Hematology/Medical Oncology [facility] I spent a total of 30 minutes on the date of the service which included preparing to see the patient, vckj-tc-fzhq patient care, completing clinical documentation, obtaining and/or reviewing separately obtained history, performing a medically appropriate examination, counseling and educating the patient/family/caregiver, and ordering medications, tests, or procedures. CC: Milvia Hinkle MD documented in this encounter [facility] 01-18-2023 Miscellaneous Notes The following approved medication requests have been denied. Requested Prescriptions Refused Prescriptions Disp Refills famotidine (PEPCID) 20 mg tablet 60 tablet 0 Sig: Take 1 tablet by mouth twice daily in the morning and before bedtime. Refused By: ALYSSA ESPARZA Reason for Refusal: A Refill not appropriate Alyssa Esparza APRN.[employer] documented in this encounter [facility] 01-09-2023 Note [facility] 01-09-2023 Miscellaneous Notes Sorry, I forgot the total dose as a group. Total dose = 265mg Oskar RameyD, BCOP documented in this encounter [facility] 01-09-2023 History of Present illness Narrative PATIENT NAME: Marilin Mae [facility] NO.: [id number] ATTENDING PHYSICIAN: Anshul Riggs MD DATE OF [...] Range Status 12/20/2022 4.0 % Final Abs [place]te Date Value Ref Range Status 12/20/2022 0.41 [...] Milvia Hinkle MD documented in this encounter [facility] 01-09-2023 Miscellaneous Notes Called to request refill on dexamethasone. Last script was 4mg Q48 Oskar RameyD, BCOP documented in this encounter [facility] 12-25-2022 Miscellaneous Notes Last note says to continue paxil, but I do not see Paxil on her meds list at all. I do see fluoxetine. Did you mean to continue the fluoxetine? If so she will need a refill on this please. Austin Haddad, PharmD, BCOP documented in this encounter [facility] 12-20-2022 Note [facility] 12-20-2022 History of Present illness Narrative ativanPATIENT NAME: Marilin Mae CLINIC NO.: [id number] ATTENDING PHYSICIAN: Anshul Riggs MD DATE OF [...] Range Status 11/30/2022 5.9 % Final Abs [place]te Date Value Ref Range Status 11/30/2022 0.45 [...] do not hesitate to contact me at [phone]. Anshul Riggs MD Hematology/Medical Oncology [facility] Ohara spent a total of 30 minutes on the date of the service which included preparing to see the patient, viiy-zn-ddbo patient care, completing clinical documentation, obtaining and/or reviewing separately obtained history, performing a medically appropriate examination, counseling and educating the patient/family/caregiver, and ordering medications, tests, or procedures. CC: Milvia Hinkle MD documented in this encounter [facility] 12-08-2022 Note [facility] 12-08-2022 Note [facility] 12-08-2022 Note [facility] 12-08-2022 Note [facility] 11-30-2022 Note [facility] 11-30-2022 History of Present illness Narrative ativanPATIENT NAME: Marilin Mae CLINIC NO.: [id number] ATTENDING PHYSICIAN: Anshul Riggs MD DATE OF [...] 09/13/2022-10/24/2022 3. Temodar 150 mg/m2 11/08/2022 HPI: Mrailin Mae is a 77 year old year [...] Range Status 11/17/2022 2.0 % Final Abs [place]te Date Value Ref Range Status 11/17/2022 0.21 [...] do not hesitate to contact me at [phone]. Anshul Riggs MD Hematology/Medical Oncology [facility] Lev spent a total of 30 minutes on the date of the service which included preparing to see the patient, tujt-ue-oyrx patient care, completing clinical documentation, obtaining and/or reviewing separately obtained history, performing a medically appropriate examination, counseling and educating the patient/family/caregiver, and ordering medications, tests, or procedures. CC: Milvia Hinkle MD documented in this encounter [facility] 11-30-2022 Note [facility] 11-17-2022 Note [facility] 11-17-2022 History of Present illness Narrative ativanPATIENT NAME: Marilin Mae [facility] NO.: [id number] ATTENDING PHYSICIAN: Anshul Riggs MD DATE OF [...] UTI and repeat MRI was read at [facility] and it demonstrated New 6 mm [...] Range Status 11/16/2022 5.0 % Final Abs Butte Date Value Ref Range Status 11/16/2022 0.38 [...] do not hesitate to contact me at [phone]. Anshul Riggs MD Hematology/Medical Oncology [facility] Ohara spent a total of 30 minutes on the date of the service which included preparing to see the patient, jhka-uw-ajzh patient care, completing clinical documentation, obtaining and/or reviewing separately obtained history, performing a medically appropriate examination, counseling and educating the patient/family/caregiver, and ordering medications, tests, or procedures. CC: Milvia Hinkle MD documented in this encounter [facility] 11-15-2022 Miscellaneous Notes Called patient left message with date and time of MRI [facility] 1st avaible appt for this specfic scan is December 08 at 1:50 I did take the appointment not sure what else to do? I will call patient once you guys are aware. Can we work on getting this MRI scheduled at [facility] in the Q building during recommended times of -, - per neuro's nurse recommendations. Thanks Sherry Winchester RN Ordered Spoke with Lien at [facility]. She states she's worked there for 10 [...] perfusion and can only be scheduled at [facility] building [facility] from -. I have [...] with Dr Riggs. Please call Suha at [phone] Thanks Sherry Winchester RN documented in this encounter [facility] 11-08-2022 Miscellaneous Notes DISCHARGE CALL BACK Today's date: November 08, 2022 Notified of Pt discharge by: [facility] d/c folder Patient discharged on 11/07/22 from [facility] Primary Cancer Diagnosis: glioblastoma Admitting Diagnosis: weakness, brain tumor, HTN Discharge Summary/SBAR reviewed: Yes Handoff Discussed with Transitional Skidway Man: No, unavailable Psychosocial Risk Factors: None If patient discharged to SNF/Rehab Facility, phone call completed to reinforce discharge instructions and follow up: Yes, spoke with pt's daughter Call Disposition: Patient discharged to long-term facility Sherry Winchester RN documented in this encounter [facility] 11-08-2022 Miscellaneous Notes I had patient's daughter Caridad Shetzer wanting to talk to you about patient being at [facility]. Caridad feels things were mixed up there. She wants to make sure everything is straight here. Can you please call Caridad back at [phone]?? Vianney Garcia documented in this encounter [facility] 11-07-2022 Note HNO ID: [id number] Author: Mya Langley RN Service: ? Author Type: Registered Nurse Type: Nursing Progress Note Filed: 11/07/2022 4:57 PM Note Text: Report called to acute rehab facility [facility] Report given to Nurse Nina Rosen. [facility] 11-07-2022 Note [facility] 11-06-2022 Note [facility] 11-06-2022 Note [facility] 11-04-2022 Note [facility] 11-04-2022 Note [facility] 11-03-2022 Miscellaneous Notes Call placed to pt's and notified him that we will be ordering home health and PT for pt. He likes this idea and will set things up with them when they call. Order and records faxed to [facility]. Sherry Winchester RN Please sign pending home health referral with physical therapy. I'll call and get it set up. Thanks Sherry Winchester RN ----- Message from Anshul Riggs MD sent at 11/02/2022 10:18 AM EDT ----- Regarding: PT Would it be possible to arrange home PT for her? Thanks documented in this encounter [facility] 11-02-2022 Note [facility] 11-02-2022 History of Present illness Narrative ativanPATIENT NAME: Marilin Mae CLINIC NO.: [id number] ATTENDING PHYSICIAN: Anshul Riggs MD DATE OF [...] Range Status 11/02/2022 5.7 % Final Abs [place]te Date Value Ref Range Status 11/02/2022 0.56 [...] do not hesitate to contact me at [phone]. Anshul Riggs MD Hematology/Medical Oncology [facility] Lev spent a total of 30 minutes on the date of the service which included preparing to see the patient, qzbn-tw-zujy patient care, completing clinical documentation, obtaining and/or reviewing separately obtained history, performing a medically appropriate examination, counseling and educating the patient/family/caregiver, and ordering medications, tests, or procedures. CC: Milvia Hinkle MD documented in this encounter [facility] 10-30-2022 Miscellaneous Notes Update office note faxed as requested. Aminah Bryant LPN Daughter calls stating pt was suppose to have a wheelchair and bedside commode ordered. Orders were placed by Dr Stallings, however the [employer] company needs a revised progress note. This has been requested by rad onc nurses. Call placed to [employer] (SORIN Cedeno) and once they receive the updated progress noted, demographics, and insurance info they will call pt and deliver these items to her. Pt's daughter notified of this. Dr Stallings: please update progress note per their request. Thanks Sherry Winchester RN documented in this encounter [facility] 10-25-2022 Miscellaneous Notes I faxed orders to [employer]. To [phone]. Aminah Bryant LPN Marilin was walking back [...] orders and letter to JEREMY Cedeno in [place]. Aminah Bryant LPN documented in this encounter [facility] 10-24-2022 Note [facility] 10-24-2022 Note [facility] 10-24-2022 Note [facility] 10-24-2022 History of Present illness Narrative Discussed with patients spouse who indicates that patient has had significant decline with decreasing steroid down to 2mg BID on Sunday. Agreed to increase to 4mg AM and 2mg PM and if no improvement at that dose, then will increase back to 4mg BID. Refill sent to pharmacy. Max Stallings MD documented in this encounter [facility] 10-24-2022 Miscellaneous Notes Refill pending your approval. Aminah Bryant LPN documented in this encounter [facility] 10-24-2022 History of Present illness Narrative Radiation [...] Max Stallings MD documented in this encounter [facility] 10-20-2022 Note [facility] 10-20-2022 Instructions Jessica Cartagena PA-C - 10/20/2022 11:29 AM EDT Patient instruction for Decadron: Starting 10/23/2022 decrease decadron to 2mg (one tablet) twice a day for 7 days, then on 10/30/2022 take 2 mg (one tablet) for 7days, then see us on 11/03 Restart protonix (pantoprozole) every morning documented in this encounter [facility] 10-20-2022 History of Present illness Narrative PATIENT NAME: Marilin Mae [facility] NO.: [id number] ATTENDING PHYSICIAN: Anshul Riggs MD DATE OF [...] Range Status 10/20/2022 8.0 % Final Abs [place]te Date Value Ref Range Status 10/20/2022 0.75 [...] Milvia Hinkle MD documented in this encounter [facility] 10-19-2022 Note [facility] 10-19-2022 History of Present illness Narrative [...] Jenn Holt MD documented in this encounter [facility] 10-16-2022 Miscellaneous Notes REfill sent. Will see as scheduled and discuss trying to wean again. Jessica Cartagena PA-C Marilin is here for radiation therapy requesting a new prescription for dexamethasone 2mg tablets. Mr. Mae said they called in over the weekend and spoke to the health promotion educator physician . Sunday10/14/22, Marilin was unable to get out of bed due to left lower extremity weakness. She said the health promotion educator physician told her she was going through [...] Aminah Bryant LPN documented in this encounter [facility] 10-16-2022 Miscellaneous Notes Approved for free drug through [employer] (10/13/22-07/22/23): [phone] ID: [id number] Eliquis approved on appeal. Patient's co-pay $379.34. Jyoti Cardona RPh Call placed to [employer] appeals dept for status. The rep was unable to locate the appeal. She took the appeal information over the phone and requested the I re-fax. It is a 7 day turn around. Thanks Faxed today's office note and appeal to [employer] @ [phone] for the 2.5mg and 5mg Eliquis. They stated a standard 7 day turn around time since she currently has medication. Call [phone] for status. documented in this encounter [facility] 10-12-2022 Note [facility] 10-12-2022 Note [facility] 10-11-2022 History of Present illness Narrative [...] Max Stallings MD documented in this encounter [facility] 10-11-2022 Nurse Note Status: Post-menopausal. Krys Gillis RN documented in this encounter [facility] 10-09-2022 Miscellaneous Notes This script is for FREE drug please only sign while IN OFFICE as script is set to print. Thanks Austin Haddad, OskarD, BCOP documented in this encounter [facility] 10-06-2022 Note [facility] 10-06-2022 History of Present illness Narrative PATIENT NAME: Marilin Mae CLINIC NO.: [id number] ATTENDING PHYSICIAN: Anshul Riggs MD DATE OF [...] Range Status 10/06/2022 7.5 % Final Abs [place]te Date Value Ref Range Status 10/06/2022 0.59 [...] Milvia Hinkle MD documented in this encounter [facility] 10-05-2022 Note [facility] 10-05-2022 History of Present illness Narrative [...] appropriate. ADELITA Beaver documented in this encounter [facility] 10-04-2022 Note [facility] 10-04-2022 History of Present illness Narrative [...] Max Stallings MD documented in this encounter [facility] 10-04-2022 Miscellaneous Notes Pt's notified and read back directions without difficulty. Sherry Winchester RN ----- Message from Jessica Cartagena PA-C sent at 10/04/2022 8:04 AM EDT ----- Please call patient and advise that her CT is stable and she can increase her eliquis dose to 5 mg BID as planned documented in this encounter [facility] 10-04-2022 Nurse Note Status: Post-menopausal. Krys Gillis RN documented in this encounter [facility] 10-03-2022 Note [facility] 09-28-2022 Note [facility] 09-27-2022 History of Present illness Narrative [...] Max Stallings MD documented in this encounter [facility] 09-27-2022 Miscellaneous Notes Pt notified that she [...] Sherry Winchester RN documented in this encounter [facility] 09-27-2022 Miscellaneous Notes I think that we [...] Aminah Bryant LPN documented in this encounter [facility] 09-27-2022 Note [facility] 09-27-2022 History of Present illness Narrative PATIENT NAME: Marilin Mae [facility] NO.: [id number] ATTENDING PHYSICIAN: Anshul Riggs MD DATE OF [...] Range Status 09/27/2022 6.9 % Final Abs Butte Date Value Ref Range Status 09/27/2022 0.63 [...] do not hesitate to contact me at [phone]. Anshul Riggs MD Hematology/Medical Oncology [facility] spent a total of 30 minutes on the date of the service which included preparing to see the patient, [id number] patient care, completing clinical documentation, obtaining and/or reviewing separately obtained history, performing a medically appropriate examination, counseling and educating the patient/family/caregiver, and ordering medications, tests, or procedures. CC: Milvia Hinkle MD documented in this encounter [facility] 09-26-2022 Miscellaneous Notes Ambulatory Pharmacy Prior Authorization Note Provider Intervention Required?: No- Pharmacy completed on your behalf. Rx Plan: Drug: Eliquis Cover My Meds Mcmahon: [id number] Determination: Denied PA Denied because: Formulary Prior Authorization/Case #: [id number] Prior Authorization Expiration: Time to PA Submission in CMM: 15 min Time to PA Determination in CMM: 1 day Additional Information: Appeal needs to be filed. Patient was given one month free while we work on the PA appeal. For questions relating to this submission, please contact [facility] at [phone] documented in this encounter [facility] 09-21-2022 Note [facility] 09-20-2022 History of Present illness Narrative [...] Max Stallings MD documented in this encounter [facility] 09-19-2022 Note [facility] 09-19-2022 Note [facility] 09-19-2022 History of Present illness Narrative PATIENT NAME: Marilin Mae CLINIC NO.: [id number] ATTENDING PHYSICIAN: Anshul Riggs MD DATE OF [...] 0.89 (L) 1.00 - 4.00 k/uL Final Butte% Date Value Ref Range Status 09/19/2022 5.3 % Final Abs [place] Date Value Ref Range Status 09/19/2022 0.50 [...] eliquis 2.5 mg BID due to decreased [employer] bleeding a/w it and then repeat CT brain a week later. 5. Return in 1 week for repeat labs Jessica Cartagena PA-C CC: Milvia Hinkle MD documented in this encounter [facility] 09-18-2022 Miscellaneous Notes Pt is asking if she can cut her Ativan in half to see if this is as effective as a whole one. Spoke with pharmacist who states yes, this can be cut in half. Pt/daughter notified and pt will try this tomorrow. Sherry Winchester RN documented in this encounter [facility] 09-18-2022 Miscellaneous Notes ORAL ANTI-CANCER AGENTS FOLLOW-UP [...] Sherry Winchester RN documented in this encounter [facility] 09-15-2022 Note [facility] 09-15-2022 History of Present illness Narrative [...] request regarding gas cards. Patient lives in [facility] and is eligible for up $500 worth of gas cards through the [facility]. SW completed an intake application and faxed it. SW asked Patient to contact the [facility] to discuss how to receive the gas cards. Patient and were appreciative. SW will remain available and will follow up as appropriate. ADELITA Beaver documented in this encounter [facility] 09-14-2022 Note [facility] 09-14-2022 History of Present illness Narrative Images from the original note were not included. [facility] [place] Claudia Mayberry Department of Cardiovascular Medicine SECTION [...] unable to coordinate with other appts in [place] around that time. Martina Gutierrez MD documented in this encounter [facility] 09-14-2022 Note [facility] 09-13-2022 History of Present illness Narrative Radiation Oncology - On Treatment Review (OTR) Note PATIENT NAME: Marilin Mae PATIENT Max Stallings MD documented in this encounter [facility] 09-13-2022 Note [facility] 09-13-2022 Miscellaneous Notes Patient started/will start taking Temodar on 09/13/22. Sherry Winchester RN documented in this encounter [facility] 09-13-2022 Note [facility] 09-13-2022 History of Present illness Narrative [...] process. Yes Pt will be filling through [facility] pharmacy PATIENT EDUCATION: 1.) Verified that patient [...] from the original note were not included. [facility] Department of Pharmacy Oncology Pharmacy Medication Education [...] Haddad RPh Pager: documented in this encounter [facility] 09-13-2022 Miscellaneous Notes Addended by: JAMAICA HADDAD on: 09/13/2022 12:52 PM Modules accepted: Orders documented in this encounter [facility] 09-12-2022 Note [facility] 09-12-2022 History of Present illness Narrative PATIENT NAME: Marilin aMe [facility] NO.: [id number] ATTENDING PHYSICIAN: Anshul Riggs MD DATE OF [...] edema. She was referred to NS at [facility] and underwent right parietal craniotomy on 08/14. Path with GBM and methylated MGMT as well. Post op DVT in the LLE and she had an IVC filter placed 08/13/2022. CT 08/25/2022 with small R Frontal subdural hematoma and follow up CT without progression. She follows vascular team at [facility] She is doing much better, denies [...] 0.89 (L) 1.00 - 4.00 k/uL Final Butte% Date Value Ref Range Status 09/11/2022 8.5 % Final Abs [place]te Date Value Ref Range Status 09/11/2022 0.44 [...] NOAC as that is associated with lower [employer] bleed risk and she may need skilled nursing AC due to her malignancy but if [...] below. Anshul Riggs M.D. Hematology/Medical Oncology [facility] [phone] CC: Milvia Hinkle MD I spent a total of 60 minutes on the date of the service which included preparing to see the patient, sqhe-hc-gwzb patient care, completing clinical documentation, obtaining and/or reviewing separately obtained history, performing a medically appropriate examination, counseling and educating the patient/family/caregiver, and ordering medications, tests, or procedures. documented in this encounter [facility] 09-04-2022 Miscellaneous Notes I notified Mr. Mae [...] called stating Marilin is still inpt at [facility] and is expected to be dc'd 09/11/22 a.m. She said Marilin is extremely claustrophobic and will need to be premedicated. She said the physicians in [place] told her Dr. Stallings could prescribe her something. NKDA- Please advise. We are working on coordinating her radiation therapy new start and consult with Dr. Riggs upon discharge. Aminah Bryant LPN documented in this encounter [facility] 09-04-2022 Miscellaneous Notes I can see 09/11 BOOGIE: You can disregard. Karlene Clark and radiation are working on getting this all rescheduled appropriately. Shaniqua Nieto RN Received call from pt's stating pt is scheduled for her first appt with Dr Riggs tomorrow but she is still in acute rehab at [facility] so they would like to know if appt can be a virtual visit or if appt can be same day as her radiation appt on 09/11 which is when she is due to be discharged from rehab. BOOGIE: Please advise. Shaniqua Nieto RN documented in this encounter [facility] 08-29-2022 Note HNO ID: [id number] Author: Ilsa Ybarra RN Service: ? Author Type: Registered Nurse Type: Nursing Progress Note Filed: 08/29/2022 4:42 AM Note Text: Event(s) / Intervention Note: 2233 - Called report to Carrol PEREIRA, spoke with DEREK Bourgeois. [facility] 08-27-2022 Note [facility] 08-27-2022 Note [facility] 08-26-2022 Note [facility] 08-26-2022 Note [facility] 08-25-2022 Note [facility] 08-25-2022 Note [facility] 08-25-2022 Note [facility] 08-25-2022 Note [facility] 08-25-2022 Note [facility] 08-25-2022 Note [facility] 08-25-2022 Note [facility] 08-25-2022 History of Present illness Narrative MARILIN MAE [id number] 08/25/2022 [facility] Department of Radiation Oncology [facility] RADIATION ONCOLOGY SIMULATION NOTE DATE OF SIMULATION: [...] M.D. 35:45 PM documented in this encounter [facility] 08-25-2022 History of Present illness Narrative MARILIN MAE [id number] 08/25/2022 [facility] Department of Radiation Oncology Treatment Planning Note [...] M.D. 38:29 PM documented in this encounter [facility] 08-25-2022 History of Present illness Narrative MARILIN MAE [id number] 08/25/2022 [facility] Department of Radiation Oncology [facility] [place] RADIATION ONCOLOGY SIMULATION NOTE DATE OF SIMULATION: [...] M.D. 39:00 PM documented in this encounter [facility] 08-24-2022 Note [facility] 08-23-2022 Note [facility] 08-23-2022 Note [facility] 08-22-2022 Note [facility] 08-21-2022 Note [facility] 08-20-2022 Note [facility] 08-19-2022 Note [facility] 08-19-2022 Note HNO ID: [id number] Author: Interface Note Service: ? Author Type: ? Type: Progress Notes Filed: 08/19/2022 4:18 AM Note Text: Epic Scheduled Downtime: 08/19/2022 1:00:00 AM to 08/19/2022 3:56:00 AM [facility] 08-18-2022 Note [facility] 08-18-2022 Note [facility] 08-17-2022 Note [facility] 08-16-2022 Note [facility] 08-15-2022 Note [facility] 08-15-2022 Note [facility] 08-14-2022 Note [facility] 08-14-2022 Note [facility] 08-14-2022 Note [facility] 08-14-2022 Note [facility] 08-14-2022 Note [facility] 08-14-2022 Note [facility] 08-14-2022 Note [facility] 08-10-2022 Miscellaneous Notes Time Frame: 2 week post op-please schedule for Aug 24 or please Orders: none Provider: fede castro for wound check, and any med onc and rad onc please Surgery/GK Date: 08/14/22* Diagnosis: brain tumor documented in this encounter [facility] 08-09-2022 Note [facility] 08-09-2022 Note [facility] 08-08-2022 Note [facility] 08-08-2022 Note [facility] 08-08-2022 Note [facility] 08-07-2022 Miscellaneous Notes Agree Daughter calls stating pt has declined throughout the day today and [facility] Daughter states she's having more problems walking, headache, nausea, dizziness, and involuntary movements of her left arm. They wanted our office to be aware. Sherry Winchester RN documented in this encounter [facility] 08-07-2022 Miscellaneous Notes Thanks Spoke to patient [...] just called stating he spoke with Dr Greard Wong and he's agreed to see the [...] Sherry Winchester RN documented in this encounter [facility] 08-04-2022 Miscellaneous Notes Duplicate entry. Please see triage completed on 08/03/22 by Maryanne Yeung APRN.MINE DEPUTY MD Sherry Sams RN Future Order Information Expires 08/03/23 Associated Diagnoses Brain mass [G93.89] Reason for Exam Priority: Routine Dx: Brain mass [G93.89 (ICD-10-CM)] Order Questions Question Answer [facility] Epic access? Yes [facility] Brain Tumor documented in this encounter [facility] 08-03-2022 Miscellaneous Notes Images from the original note were not included. Time Frame: URGENT/JACQUE Provider: Intra-axial surgeon Referring: Anshul Riggs MD Please instruct patient to hand carry/ upload images prior to appt Dx: Probable high grade neoplasm/GBM ___ Patient: Marilin Mae Address: Marilin Mae [id number] [place] [id number] Per Triage: Marilin Mae is a 77 year old female that requests evaluation of ~ 3 cm enhancing lesions with surrounding edema in the right parietal lobe. The larger with central necrosis - felt to be GBM. Presented with left sided weakness/decreased dexterity and gait impairment. Referred by: Anshul Riggs MD Patient expectations: New Consult Tumor Specifics: [...] and/or hospital have you been seen at? [facility] 6. Epic: Please allow up to 48-72 [...] the patient) Jessica documented in this encounter [facility] 08-01-2022 Note HISTORY: Left side w eakness, [...] signed by Carl Harp on 08/02/2022 0658 [facility] Customer Contact Representative [facility]: Evaluation note Diagnosis Brain mass- [...] sites (HCC) [facility] [place] Diagnosis Glioblastoma multiforme (HCC)- Primary Malignant neoplasm of brain, unspecified site [facility] Diagnosis Glioblastoma multiforme (HCC)- Primary Malignant neoplasm of brain, unspecified site [facility] Diagnosis Glioblastoma multiforme (HCC)- Primary Malignant neoplasm of brain, unspecified site [facility] [place] [facility]* Diagnosis Glioblastoma multiforme (HCC)- Primary Malignant neoplasm of brain, unspecified site [facility] Diagnosis Glioblastoma multiforme (HCC)- Primary Malignant neoplasm of brain, unspecified site Anxiety about health Other depression [facility] Glioblastoma multiforme (HCC)- Primary Malignant neoplasm of brain, unspecified site [facility] Diagnosis Glioblastoma multiforme (HCC) Malignant neoplasm of brain, unspecified site [facility] [place] [facility] Diagnosis Glioblastoma multiforme (HCC)- Primary Malignant [...] disorder without agoraphobia [facility] [place] [facility] Diagnosis Presence of IVC filter- Primary Other postprocedural status S/P IVC filter Other postprocedural status [facility]* Diagnosis Glioblastoma multiforme (HCC) Malignant neoplasm of brain, unspecified site [facility] [place] [facility] Diagnosis Glioblastoma (HCC)- Primary Malignant neoplasm of brain, unspecified site 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 [facility] [place] [facility] Diagnosis Glioblastoma (HCC)- Primary Malignant neoplasm of brain, unspecified site Cerebral autosomal dominant arteriopathy with subcortical infarcts and leukoencephalopathy Unspecified cerebral artery occlusion with cerebral infarction Other specified disorders of central nervous system [facility] [place] [facility]* Diagnosis Glioblastoma (HCC)- Primary Malignant neoplasm of brain, unspecified site [facility] [place] [facility] Diagnosis Glioblastoma (HCC)- Primary Malignant neoplasm of brain, unspecified site [facility] [place] [facility]* Diagnosis Glioblastoma multiforme (HCC)- Primary Malignant neoplasm of brain, unspecified site [facility] Additional Instructions Continue home medications as prescribed Elevate your lower extremities as discussed Return here if any problems persist or worsen including shortness of breath, chest pain or any other [facility] Work Phone: Reason for referral (narrative)* Outpatient Procedure (Routine) - Authorized Specialty Diagnoses / Procedures Referred By Anabela t Referred To Contact [facility] Diagnoses Personal history of DVT (deep vein thrombosis) Procedures US LEG VEIN DVT VIVIENNE VAS LAB DUP-SCAN XTR VEINS COMPLETE BILATERAL STUDY Martina Gutierrez MD [address] [place] [address] [facility] [place] [facility] [place] [address] Referral ID Status Reason Start Date Expiration Date Visits Requested Visits Authorized [id number] Authorized Auto-Generat ed Referral 09/14/2022 09/14/2023 1 1 [facility] Outpatient Procedure (Routine) - Pending Review Specialty Diagnoses / Procedures Referred By Anablea varma Referred To [facility] Diagnoses Glioblastoma (HCC) Procedures ECG COMPLETE ECG ROUTINE ECG W/LEAST 12 LDS W/I&R Dipika Duff MD [address] [place] [address] [facility] [place] [address] [place] [id number] Referral ID Status Reason Start Date Expiration Date Visits Requested Visits Authorized [id number] Pending Review Auto-Generat ed Referral 3 06/07/2024 1 1 [facility] Summary Purpose Family History No Family History [...] Brain mass Procedures CONSULT TO NEUROSURGERY OFFICE/OUTPATIENT [facility] MDM 60-74 MINUTES Anshul Riggs MD [address] [place] [id number] Referral ID Status Reason Start Date Expiration Date Visits Requested Visits Authorized [id number] Authorized PCP Requested Referral 08/03/2022 08/03/2023 1 1 Specialty Diagnoses / Procedures Referred By Contac t Referred To Contact Diagnoses Brain tumor (HCC) Procedures CT SIM PLANNING RADIATION ONCOLOGY THER RAD SIMULAJ-AIDED [place]ELD [place] [address] [place] [id number] Referral ID Status Reason Start Date Expiration Date Visits Requested Visits Authorized [id number] Pending Review PCP Requested Referral 08/24/2022 11/21/2022 1 1 Specialty Diagnoses / Procedures Referred By Contac t Referred To Contact CT IMAGING Diagnoses Glioblastoma multiforme (HCC) Procedures CT BRAIN WO IVCON CT HEAD/BRAIN W/O CONTRAST MATERIAL Jessica Cartagena PA-C [address] [place] [address] Referral ID Status Reason Start Date Expiration Date V isits Requested Visits Authorized [id number] Closed Auto-Generate d Referral 09/19/2022 10/19/2023 1 1 Specialty Diagnoses / Procedures Referred By Contac t Referred To Contact MR IMAGING Diagnoses Glioblastoma multiforme (HCC) Procedures MRI BRAIN WO/W IVCON MRI BRAIN BRAIN STEM W/O W/CONTRAST MATERIAL Anshul Riggs MD [address] [place] [address] Mr Imaging Referral ID Status Reason Start Date Expiration Date Visits Requested Visits Authorized [id number] Pending Review Auto-Generat ed Referral 11/16/2022 12/02/2023 1 1 Specialty Diagnoses / Procedures Referred By Contac t Referred To Contact Diagnoses Glioblastoma multiforme (HCC) Procedures CONSULT TO HOME HEALTH ([facility]) Anshul Riggs MD [address] [place] [id number] Referral ID Status Reason Start Date Expiration Date Visits Requested Visits Authorized [id number] Ref Not Required PCP Requested Referral 11/02/2022 01/31/2023 3 3 Referral ID Status Reason Start Date Expiration Date Visits Requested Visits Authorized [id number] Authorized Auto-Generat ed Referral 11/13/2022 12/13/2023 1 1 Specialty Diagnoses / Procedures Referred By Contac t Referred To Contact MR IMAGING Diagnoses Glioblastoma multiforme (HCC) Procedures MRI BRAIN WO/W IVCON MRI BRAIN BRAIN STEM W/O W/CONTRAST MATERIAL Jessica Cartagena PA-C [address] [place] [address] [place] [address] Mr Imaging Referral ID Status Reason Start Date Expiration Date Visits Requested Visits Authorized [id number] Authorized Auto-Generat ed Referral 02/08/2023 02/08/2024 1 1 Specialty Diagnoses / Procedures Referred By Contac t Referred To Contact MR IMAGING Diagnoses Glioblastoma multiforme (HCC) Procedures MRI BRAIN WO/W IVCON MRI BRAIN BRAIN STEM W/O W/CONTRAST MATERIAL Anshul Riggs MD [address] [place] [address] [place] [address] Referral ID Status Reason Start Date Expiration Date Visits Requested Visits Authorized [id number] Authorized Auto-Generat ed Referral 05/03/2024 1 1 Specialty Diagnoses / Procedures Referred By Contac t Referred To Contact MR IMAGING Diagnoses Glioblastoma multiforme (HCC) Procedures MRI BRAIN WO/W IVCON MRI BRAIN BRAIN STEM W/O W/CONTRAST MATERIAL Jessica Cartagena PA-C [address] [place] [address] [place] [address] [place] [address] Referral ID Status Reason Start Date Expiration Date V isits Requested Visits Authorized [id number] Closed Auto-Generate d Referral 02/08/2023 02/08/2024 1 1 Referral ID Status Reason Start Date Expiration Date V isits Requested Visits Authorized [id number] Closed Auto-Generate d Referral 05/04/2023 05/03/2024 1 1 Specialty Diagnoses / Procedures Referred By Contac t Referred To Contact MR IMAGING Diagnoses Glioblastoma (HCC) Procedures MRI BRAIN WO/W IVCON MRI BRAIN BRAIN STEM W/O W/CONTRAST MATERIAL Nitin Cr DO, PhD [address] [place] [id number] Mr Imaging [place] [address] Referral ID Status Reason Start Date Expiration Date Visits Requested Visits Authorized [id number] Pending Review Auto-Generat ed Referral 3 07/06/2024 1 1 Specialty Diagnoses / Procedures Referred By Contac t Referred To Contact MR IMAGING Diagnoses Glioblastoma (HCC) Procedures MRI BRAIN WO/W IVCON MRI BRAIN BRAIN STEM W/O W/CONTRAST MATERIAL Adolfo Martins MD, PhD [address] [place] [address] Mr Imaging [place] [address] Referral ID Status Reason Start Date Expiration Date Visits Requested Visits Authorized [id number] Pending Review Auto-Generat ed Referral 07/17/2024 1 1 Specialty Diagnoses / Procedures Referred By Contac t Referred To Contact [facility] Diagnoses Glioblastoma (HCC) Procedures SPIROMETRY BASELINE ONLY SPMTRY W/VC EXPIRATORY FRANCIS W/WO MXML VOL VNTJ Adolfo Martins MD, PhD [address] [place] [address] Res[facility] [place] [address] [place] [address] Referral ID Status Reason Start Date Expiration Date Visits Requested Visits Authorized [id number] Pending Review Auto-Generat ed Referral 3 07/17/2024 [...] DATE CREATED AUTHOR AUTHOR'S ORGANIZ ATION 08/03/2022 [facility] Me dical Specialist DATE CREATED AUTHOR AUTHOR'S ORGANIZ ATION 05/27/2023 [facility] DATE CREATED AUTHOR AUTHOR'S ORGANIZ ATION 07/20/2023 [facility] DATE CREATED AUTHOR AUTHOR'S ORGANIZ ATION 07/30/2023 [facility] Care Teams (unrecognized sec tion and content) Team Status: Inactive Member Role Status Dates Milvia Hinkle MD Primary Care Provider Active Anastacio Friedman DO Attending Provider Active Team Status: Active Member Role Status Dates Milvia Hinkle MD Primary Care Provider Active Box Blank Machine Operator Helper Relationship Specialty Start Date End Date Milvia Hinkle [address] [place] [address] PCP - General Family Medicine 08/02/22 Box Blank Machine Operator Helper Relationship Specialty Start Date End Date Milvia Hinkle [address] [place] [address] PCP - General Family Medicine 08/02/22 Box Blank Machine Operator Helper Relationship Specialty Start Date End Date Milvia Hinkle [address] [place] [address] PCP - General Family Medicine 08/02/22 Box Blank Machine Operator Helper Relationship Specialty Start Date End Date Milvia Hinkle [address] [place] [address] PCP - General Family Medicine 08/02/22 Box Blank Machine Operator Helper Relationship Specialty Start Date End Date Milvia Hinkle [address] [place] [address] PCP - General Family Medicine 08/02/22 Box Blank Machine Operator Helper Relationship Specialty Start Date End Date Milvia Hinkle [address] [place] [address] PCP - General Family Medicine 08/02/22 Box Blank Machine Operator Helper Relationship Specialty Start Date End Date Milvia Hinkle [address] [place] [address] PCP - General Family Medicine 08/02/22 Box Blank Machine Operator Helper Relationship Specialty Start Date End Date Milvia Hinkle [address] [place] [address] PCP - General Family Medicine 08/02/22 Box Blank Machine Operator Helper Relationship Specialty Start Date End Date Milvia Hinkle [address] [place] [address] PCP - General Family Medicine 08/02/22 Box Blank Machine Operator Helper Relationship Specialty Start Date End Date Milvia Hinkle [address] [place] [address] PCP - General Family Medicine 08/02/22 Box Blank Machine Operator Helper Relationship Specialty Start Date End Date Milvia Hinkle [address] [place] [address] PCP - General Family Medicine 08/02/22 Box Blank Machine Operator Helper Relationship Specialty Start Date End Date Milvia Hinkle [address] [place] [address] PCP - General Family Medicine 08/02/22 Box Blank Machine Operator Helper Relationship Specialty Start Date End Date Milvia Hinkle [address] [place] [address] PCP - General Family Medicine 08/02/22 Box Blank Machine Operator Helper Relationship Specialty Start Date End Date Milvia Hinkle [address] [place] [address] PCP - General Family Medicine 08/02/22 Box Blank Machine Operator Helper Relationship Specialty Start Date End Date Milvia Hinkle [address] [place] [address] PCP - General Family Medicine 08/02/22 Sherry Winchester, RN [address] [facility] [place] [address] Specialty Skidway Man Hematology/Oncology 09/15/22 Anshul Riggs MD [address] [place] [facility] [place] [address] Physician Hematology/Oncology 09/15/22 Jessica Cartagena, PACassidyC [address] [facility] [place] [address] Physician Mainframe Systems Engineer Hematology/Oncology 09/15/22 Marian Spangler, TOOL MACHINE SETUP OPERATOR Department Assistant 09/15/22 Box Blank Machine Operator Helper Relationship Specialty Start Date End Date Milvia Hinkle [address] [place] [phone] PCP - General Family Medicine 08/02/22 Sherry Winchester, RN [address] [facility] [place] [address] Specialty Skidway Man Hematology/Oncology 09/15/22 Anshul Riggs MD [address] [place] [facility] [address] Physician Hematology/Oncology 09/15/22 Jessica Cartagena, PA-C [address] [facility] [place] [address] Physician Mainframe Systems Engineer Hematology/Oncology 09/15/22 Marian Spangler, TOOL MACHINE SETUP OPERATOR Department Assistant 09/15/22 Box Blank Machine Operator Helper Relationship Specialty Start Date End Date Milvia Hinkle [address] [place] [place] [phone] PCP - General Family Medicine 08/02/22 Sherry Winchester, RN [address] [facility] [address] Specialty Skidway Man Hematology/Oncology 09/15/22 Anshul Riggs MD [address] [place] [address] Physician Hematology/Oncology 09/15/22 Jessica Cartagena, KIMC [address] [facility] [address] Physician Mainframe Systems Engineer Hematology/Oncology 09/15/22 Marian Spangler, TOOL MACHINE SETUP OPERATOR Department Assistant 09/15/22 Box Blank Machine Operator Helper Relationship Specialty Start Date End Date Milvia Hinkle [address] [place] [address] PCP - General Family Medicine 08/02/22 Sherry Winchester, RN [address] [facility] [place] [address] Specialty Skidway Man Hematology/Oncology 09/15/22 Anshul Riggs MD [address] [place] [address] Physician Hematology/Oncology 09/15/22 Jessica Cartagena PA-C [address] [place] [address] Physician Mainframe Systems Engineer Hematology/Oncology 09/15/22 Marian Spangler, TOOL MACHINE SETUP OPERATOR Department Assistant 09/15/22 Box Blank Machine Operator Helper Relationship Specialty Start Date End Date Milvia Hinkle [address] [place] [address] [phone] PCP - General Family Medicine 08/02/22 Box Blank Machine Operator Helper Relationship Specialty Start Date End Date Milvia Hinkle [address] [place] [address] PCP - General Family Medicine 08/02/22 Sherry Winchester, RN [address] [facility] [address] Specialty Skidway Man Hematology/Oncology 09/15/22 Anshul Riggs MD [address] [place] [address] Physician Hematology/Oncology 09/15/22 Jessica Cartagena, STAS [address] [place] [address] Physician Mainframe Systems Engineer Hematology/Oncology 09/15/22 Marian Spangler, TOOL MACHINE SETUP OPERATOR Department Assistant 09/15/22 Box Blank Machine Operator Helper Relationship Specialty Start Date End Date Milvia Hinkle [address] [place] [phone] PCP - General Family Medicine 08/02/22 Box Blank Machine Operator Helper Relationship Specialty Start Date End Date Milvia Hinkle [address] [place] [address] PCP - General Family Medicine 08/02/22 Sherry Winchester RN [address] [facility] [address] Specialty Skidway Man Hematology/Oncology 09/15/22 Anshul Riggs MD [address] [place] [address] Physician Hematology/Oncology 09/15/22 Jessica Cartagena PA-C [address] [facility] [address] Physician Mainframe Systems Engineer Hematology/Oncology 09/15/22 Marian Spangler, TOOL MACHINE SETUP OPERATOR Department Assistant 09/15/22 Box Blank Machine Operator Helper Relationship Specialty Start Date End Date Milvia Hinkle [address] [facility] [place] [address] PCP - General Family Medicine 08/02/22 Sherry Winchester, RN [address] [facility] [address] Specialty Skidway Man Hematology/Oncology 09/15/22 Anshul Riggs MD [address] [place] [address] Physician Hematology/Oncology 09/15/22 Jessica Cartagena, KIMC [address] [facility] [address] Physician Mainframe Systems Engineer Hematology/Oncology 09/15/22 Marian Spangler, TOOL MACHINE SETUP OPERATOR Department Assistant 09/15/22 Box Blank Machine Operator Helper Relationship Specialty Start Date End Date Milvia Hinkle [address] [place] [place] [phone] PCP - General Family Medicine 08/02/22 Sherry Winchester RN [address] [place] [address] Specialty Skidway Man Hematology/Oncology 09/15/22 Anshul Riggs MD [address] [place] [address] Physician Hematology/Oncology 09/15/22 Jessica Cartagena PA-C [address] [facility] [address] Physician Mainframe Systems Engineer Hematology/Oncology 09/15/22 Marian Spangler, TOOL MACHINE SETUP OPERATOR Department Assistant 09/15/22 Box Blank Machine Operator Helper Relationship Specialty Start Date End Date Milvia Hinkle [address] [place] [address] [phone] PCP - General Family Medicine 08/02/22 Sherry Winchester RN [address] [facility] [address] Specialty Skidway Man Hematology/Oncology 09/15/22 Anshul Riggs MD [address] [facility] [place] [address] Physician Hematology/Oncology 09/15/22 Jessica Cartagena PA-C [address] [facility] [place] [address] Physician Mainframe Systems Engineer Hematology/Oncology 09/15/22 Marian Spangler, TOOL MACHINE SETUP OPERATOR Department Assistant 09/15/22 Box Blank Machine Operator Helper Relationship Specialty Start Date End Date Milvia Hinkle [address] [place] [phone] PCP - General Family Medicine 08/02/22 Sherry Winchester, RN [address] [facility] [place] [address] Specialty Skidway Man Hematology/Oncology 09/15/22 Anshul Riggs MD [address] [facility] [place] [address] Physician Hematology/Oncology 09/15/22 Jessica Cartagena PA-C [address] [facility] [place] [address] Physician Mainframe Systems Engineer Hematology/Oncology 09/15/22 Marian Spangler, TOOL MACHINE SETUP OPERATOR Department Assistant 09/15/22 Box Blank Machine Operator Helper Relationship Specialty Start Date End Date Milvia Hinkle [address] [place] [address] [phone] PCP - General Family Medicine 08/02/22 Sherry Winchester, RN [address] [facility] [place] [address] Specialty Skidway Man Hematology/Oncology 09/15/22 Anshul Riggs MD [address] [facility] [place] [address] Physician Hematology/Oncology 09/15/22 Jessica Cartagena PA-C [address] [facility] [place] [address] Physician Mainframe Systems Engineer Hematology/Oncology 09/15/22 Marian Spangler, TOOL MACHINE SETUP OPERATOR Department Assistant 09/15/22 Box Blank Machine Operator Helper Relationship Specialty Start Date End Date Milvia Hinkle [address] [place] [place] [address] PCP - General Family Medicine 08/02/22 Sherry Winchester, RN [address] [facility] [place] [address] Specialty Skidway Man Hematology/Oncology 09/15/22 Anshul Riggs MD [address] [place] [address] Physician Hematology/Oncology 09/15/22 Jessica Cartagena PA-C [address] [facility] [place] [address] Physician Mainframe Systems Engineer Hematology/Oncology 09/15/22 Marian Spangler, [facility] Department Assistant 09/15/22 Box Blank Machine Operator Helper Relationship Specialty Start Date End Date Milvia Hinkle [address] [place] [place] [address] [phone] PCP - General Family Medicine 08/02/22 Sherry Winchester, RN [address] [facility] [place] [address] Specialty Skidway Man Hematology/Oncology 09/15/22 Anshul Riggs MD [address] [place] [address] Physician Hematology/Oncology 09/15/22 Jessica Cartagena PA-C [address] [facility] [place] [address] Physician Mainframe Systems Engineer Hematology/Oncology 09/15/22 Marian Spangler LSW Department Assistant 09/15/22 Box Blank Machine Operator Helper Relationship Specialty Start Date End Date ArinMilvia delgado [address] [place] [place] [address] PCP - General Family Medicine 08/02/22 Sherry Winchester, RN [address] [facility] [address] Specialty Skidway Man Hematology/Oncology 09/15/22 Anshul Riggs MD [address] [facility] [place] [address] Physician Hematology/Oncology 09/15/22 Jessica Cartagena, PA-C [address] [facility] [place] [address] Physician Mainframe Systems Engineer Hematology/Oncology 09/15/22 Marian Spangler TOOL MACHINE SETUP OPERATOR Department Assistant 09/15/22 Box Blank Machine Operator Helper Relationship Specialty Start Date End Date Milvia Hinkle [address] [place] [address] PCP - General Family Medicine 08/02/22 Sherry Winchester, RN [address] [place] [address] Specialty Skidway Man Hematology/Oncology 09/15/22 Anshul Riggs MD [address] [place] [address] Physician Hematology/Oncology 09/15/22 Jessica Cartagena, PA-C [address] [facility] [place] [address] Physician Mainframe Systems Engineer Hematology/Oncology 09/15/22 Marian Spangler LSW Department Assistant 09/15/22 Box Blank Machine Operator Helper Relationship Specialty Start Date End Date Milvia Hinkle [address] [place] [address] PCP - General Family Medicine 08/02/22 Sherry Winchester, RN [address] [facility] [address] Specialty Skidway Man Hematology/Oncology 09/15/22 Anshul Riggs MD [address] [facility] [place] [address] Physician Hematology/Oncology 09/15/22 Jessica Cartagena PA-C [address] [place] [address] Physician Mainframe Systems Engineer Hematology/Oncology 09/15/22 Marian Spangler LSW Department Assistant 09/15/22 Box Blank Machine Operator Helper Relationship Specialty Start Date End Date Milvia Hinkle [address] [place] [address] PCP - General Family Medicine 08/02/22 Sherry Winchester RN [address] [facility] [address] Specialty Skidway Man Hematology/Oncology 09/15/22 Anshul Riggs MD [address] [place] [address] Physician Hematology/Oncology 09/15/22 Jessica Cartagena PA-C [address] [place] [address] Physician Mainframe Systems Engineer Hematology/Oncology 09/15/22 Marian Spangler LSW Department Assistant 09/15/22 Box Blank Machine Operator Helper Relationship Specialty Start Date End Date Milvia Hinkle [address] [place] [address] [phone] PCP - General Family Medicine 08/02/22 Sherry Winchester, RN [address] [place] [address] Specialty Skidway Man Hematology/Oncology 09/15/22 Anshul Riggs MD [address] [place] [address] Physician Hematology/Oncology 09/15/22 Jessica Cartagena PA-C [address] [place] [address] Physician Mainframe Systems Engineer Hematology/Oncology 09/15/22 Marian Spangler, TOOL MACHINE SETUP OPERATOR Department Assistant 09/15/22 Box Blank Machine Operator Helper Relationship Specialty Start Date End Date Milvia Hinkle [address] [place] [address] PCP - General Family Medicine 08/02/22 Sherry Winchester, RN [address] [place] [address] Specialty Skidway Man Hematology/Oncology 09/15/22 Anshul Riggs MD [address] [place] [address] Physician Hematology/Oncology 09/15/22 Jessica Cartagena PA-C [address] [place] [address] Physician Mainframe Systems Engineer Hematology/Oncology 09/15/22 Marian Spangler, TOOL MACHINE SETUP OPERATOR Department Assistant 09/15/22 Box Blank Machine Operator Helper Relationship Specialty Start Date End Date Milvia Hinkle [address] [place] [address] [phone] PCP - General Family Medicine 08/02/22 Sherry Winchester, RN [address] [place] [address] Specialty Skidway Man Hematology/Oncology 09/15/22 Anshul Riggs MD [address] [place] [address] Physician Hematology/Oncology 09/15/22 Jessica Cartagena PA-C [address] [place] [address] Physician Mainframe Systems Engineer Hematology/Oncology 09/15/22 Marian Spangler LSW Department Assistant 09/15/22 Box Blank Machine Operator Helper Relationship Specialty Start Date End Date ArinMilvia delgado Jenn [address] [place] [place] [address] PCP - General Family Medicine 08/02/22 Sherry Winchester, RN [address] [place] [address] Specialty Skidway Man Hematology/Oncology 09/15/22 Anshul Riggs MD [address] [place] [address] Physician Hematology/Oncology 09/15/22 Jessica Cartagena, PA-C [address] [place] [address] Physician Mainframe Systems Engineer Hematology/Oncology 09/15/22 Marian Spangler LSW Department Assistant 09/15/22 Box Blank Machine Operator Helper Relationship Specialty Start Date End Date Milvia Hinkle [address] [place] [address] PCP - General Family Medicine 08/02/22 Sherry Winchester, DEREK [address] [facility] [address] Specialty Skidway Man Hematology/Oncology 09/15/22 Anshul Riggs MD [address] [place] [address] Physician Hematology/Oncology 09/15/22 Jessica Cartagena, PA-C [address] [place] [address] Physician Mainframe Systems Engineer Hematology/Oncology 09/15/22 Marian Spangler LSW Department Assistant 09/15/22 Box Blank Machine Operator Helper Relationship Specialty Start Date End Date Milvia Hinkle [address] [place] [address] PCP - General Family Medicine 08/02/22 Sherry Winchester, RN [address] [place] [address] Specialty Skidway Man Hematology/Oncology 09/15/22 Anshul Riggs MD [address] [place] [address] Physician Hematology/Oncology 09/15/22 Jessica Cartagena, PA-C [address] [place] [address] Physician Mainframe Systems Engineer Hematology/Oncology 09/15/22 Marian Spangler, TOOL MACHINE SETUP OPERATOR Department Assistant 09/15/22 Box Blank Machine Operator Helper Relationship Specialty Start Date End Date Milvia Hinkle [address] [place] [address] PCP - General Family Medicine 08/02/22 Sherry Winchester RN [address] [place] [address] Specialty Skidway Man Hematology/Oncology 09/15/22 Anshul Riggs MD [address] [place] [address] Physician Hematology/Oncology 09/15/22 Jessica Cartagena, PACassidyC [address] [place] [address] Physician Mainframe Systems Engineer Hematology/Oncology 09/15/22 Marian Spangler, TOOL MACHINE SETUP OPERATOR Department Assistant 09/15/22 Box Blank Machine Operator Helper Relationship Specialty Start Date End Date Milvia Hinkle [address] [place] [address] [phone] PCP - General Family Medicine 08/02/22 Sherry Winchester, RN [address] [place] [address] Specialty Skidway Man Hematology/Oncology 09/15/22 Anshul Riggs MD [address] [place] [address] Physician Hematology/Oncology 09/15/22 Jessica Cartagena, PACassidyC [address] [place] [address] Physician Mainframe Systems Engineer Hematology/Oncology 09/15/22 Marian Spangler, TOOL MACHINE SETUP OPERATOR Department Assistant 09/15/22 Box Blank Machine Operator Helper Relationship Specialty Start Date End Date Milvia Hinkle [address] [place] [address] PCP - General Family Medicine 08/02/22 Sherry Winchester RN [address] [place] [address] Specialty Skidway Man Hematology/Oncology 09/15/22 Anshul Riggs MD [address] [place] [address] Physician Hematology/Oncology 09/15/22 Jessica Cartagena, PACassidyC [address] [place] [address] Physician Mainframe Systems Engineer Hematology/Oncology 09/15/22 Marian Spangler, TOOL MACHINE SETUP OPERATOR Department Assistant 09/15/22 Box Blank Machine Operator Helper Relationship Specialty Start Date End Date Milvia Hinkle [address] [place] [address] [phone] PCP - General Family Medicine 08/02/22 Sherry Winchester RN [address] [place] [address] Specialty Skidway Man Hematology/Oncology 09/15/22 Anshul Riggs MD [address] [place] [address] Physician Hematology/Oncology 09/15/22 Jessica Cartagena PA-C [address] [facility] [place] [address] Physician Mainframe Systems Engineer Hematology/Oncology 09/15/22 Marian Spangler, TOOL MACHINE SETUP OPERATOR Department Assistant 09/15/22 Box Blank Machine Operator Helper Relationship Specialty Start Date End Date ArinMilvia delgado Jenn [address] [place] [address] PCP - General Family Medicine 08/02/22 Sherry Winchester, RN [address] [facility] [place] [address] Specialty Skidway Man Hematology/Oncology 09/15/22 Anshul Riggs MD [address] [place] [address] Physician Hematology/Oncology 09/15/22 Jessica Cartagena PA-C [address] [facility] [place] [address] Physician Mainframe Systems Engineer Hematology/Oncology 09/15/22 Marian Spangler, [facility] Department Assistant 09/15/22 Box Blank Machine Operator Helper Relationship Specialty Start Date End Date Milvia Hinkle [address] [place] [phone] PCP - General Family Medicine 08/02/22 Sherry Winchester, RN [address] [facility] [address] [place], [place] [address] Specialty [place]idway Man Hematology/Oncology 09/15/22 Anshul Riggs MD [address] [place] [facility] [address] Physician Hematology/Oncology 09/15/22 Jessica Cartagena PA-C [address] [facility] [place] [address] Physician Mainframe Systems Engineer Hematology/Oncology 09/15/22 Marian Spangler, TOOL MACHINE SETUP OPERATOR Department Assistant 09/15/22 Box Blank Machine Operator Helper Relationship Specialty Start Date End Date ArinMilvia delgado Jenn [address] [place] [id number] PCP - General Family Medicine 08/02/22 Sherry Winchester, RN [address] [facility] [address] Specialty Skidway Man Hematology/Oncology 09/15/22 Anshul Riggs MD [address] [facility] [place] [address] Physician Hematology/Oncology 09/15/22 Jessica Cartagena, PA-C [address] [facility] [place] [address] Physician Mainframe Systems Engineer Hematology/Oncology 09/15/22 Marian Spangler, TOOL MACHINE SETUP OPERATOR Department Assistant 09/15/22 Box Blank Machine Operator Helper Relationship Specialty Start Date End Date Milvia Hinkle [address] [place] [phone] PCP - General Family Medicine 08/02/22 Sherry Winchester, RN [address] [facility] [place] [address] Specialty Skidway Man Hematology/Oncology 09/15/22 Anshul Riggs MD [address] [facility] [place] [address] Physician Hematology/Oncology 09/15/22 Jessica Cartagena, PA-C [address] [facility] [place] [address] Physician Mainframe Systems Engineer Hematology/Oncology 09/15/22 Marian Spangler, TOOL MACHINE SETUP OPERATOR Department Assistant 09/15/22 Box Blank Machine Operator Helper Relationship Specialty Start Date End Date Milvia Hinkle [address] [place] [phone] PCP - General Family Medicine 08/02/22 Sherry Winchester, DEREK [address] [facility] [address] [place], [place] [id number] Specialty Skidway Man Hematology/Oncology 09/15/22 Anshul Riggs MD [address] [facility] [address] Physician Hematology/Oncology 09/15/22 Jessica Cartagena, PA-C [address] [facility] [place] [address] Physician Mainframe Systems Engineer Hematology/Oncology 09/15/22 Marian Spangler, TOOL MACHINE SETUP OPERATOR Department Assistant 09/15/22 Box Blank Machine Operator Helper Relationship Specialty Start Date End Date Milvia Hinkle [address] [facility] [place] [phone] PCP - General Family Medicine 08/02/22 Sherry Winchester RN [address] [facility] [place] [address] Specialty Skidway Man Hematology/Oncology 09/15/22 Anshul Riggs MD [address] [facility] [place] [address] Physician Hematology/Oncology 09/15/22 Jessica Cartagena, PA-C [address] [facility] [place] [address] Physician Mainframe Systems Engineer Hematology/Oncology 09/15/22 Marian Spangler, TOOL MACHINE SETUP OPERATOR Department Assistant 09/15/22 Box Blank Machine Operator Helper Relationship Specialty Start Date End Date Milvia Hinkle [address] [facility] [place] [address] PCP - General Family Medicine 08/02/22 Sherry Winchester RN [address] [facility] [place] [address] Specialty Skidway Man Hematology/Oncology 09/15/22 Anshul Riggs MD [address] [facility] [place] [address] Physician Hematology/Oncology 09/15/22 Jessica Cartagena, KIMC [address] [place] [address] [place] [address] Physician Mainframe Systems Engineer Hematology/Oncology 09/15/22 Marian Spangler, TOOL MACHINE SETUP OPERATOR Department Assistant 09/15/22 Box Blank Machine Operator Helper Relationship Specialty Start Date End Date Milvia Hinkle [address] [place] [address] PCP - General Family Medicine 08/02/22 Sherry Winchester RN [address] [facility] [place] [address] Specialty Skidway Man Hematology/Oncology 09/15/22 Anshul Riggs MD [address] [facility] [place] [address] Physician Hematology/Oncology 09/15/22 Jessica Cartagena PA-C [address] [facility] [address] Physician Mainframe Systems Engineer Hematology/Oncology 09/15/22 Marian Spangler, TOOL MACHINE SETUP OPERATOR Department Assistant 09/15/22 Box Blank Machine Operator Helper Relationship Specialty Start Date End Date Milvia Hinkle [address] [place] [address] PCP - General Family Medicine 08/02/22 Sherry Winchester, RN [address] [facility] [place] [address] Specialty Skidway Man Hematology/Oncology 09/15/22 Anshul Riggs MD [address] [facility] [place] [address] Physician Hematology/Oncology 09/15/22 Jessica Cartagena PA-C [address] [place] [address] [place] [address] Physician Mainframe Systems Engineer Hematology/Oncology 09/15/22 Marian Spangler, LI Department Assistant 09/15/22 Box Blank Machine Operator Helper Relationship Specialty Start Date End Date Milvia Hinkle [address] [place] [phone] PCP - General Family Medicine 08/02/22 Sherry Winchester RN [address] [facility] [place] [address] Specialty Skidway Man Hematology/Oncology 09/15/22 Anshul Riggs MD [address] [place] [address] [place] [address] Physician Hematology/Oncology 09/15/22 Jessica Cartagena PA-C [address] [place] [address] [place] [address] Physician Mainframe Systems Engineer Hematology/Oncology 09/15/22 Marian Spangler, LI Department Assistant 09/15/22 Box Blank Machine Operator Helper Relationship Specialty Start Date End Date Milvia Hinkle [address] [place] [phone] PCP - General Family Medicine 08/02/22 Sherry Winchester RN [address] [facility] [place] [address] Specialty Skidway Man Hematology/Oncology 09/15/22 Anshul Riggs MD [address] [facility] [place] [address] Physician Hematology/Oncology 09/15/22 Jessica Cartagena PA-C [address] [place] [address] [place] [address] Physician Mainframe Systems Engineer Hematology/Oncology 09/15/22 Marian Spangler, TOOL MACHINE SETUP OPERATOR Department Assistant 09/15/22 Box Blank Machine Operator Helper Relationship Specialty Start Date End Date Milvia Hinkle [address] [place] [phone] PCP - General Family Medicine 08/02/22 Sherry Winchester RN [address] [facility] [place] [address] Specialty Skidway Man Hematology/Oncology 09/15/22 Anshul Riggs MD [address] [place] [address] [place] [address] Physician Hematology/Oncology 09/15/22 Jessica Cartagena PA-C [address] [place] [address] [place] [address] Physician Mainframe Systems Engineer Hematology/Oncology 09/15/22 Marian Spangler LSW Department Assistant 09/15/22 Box Blank Machine Operator Helper Relationship Specialty Start Date End Date Milvia Hinkle [address] [facility] [place] [phone] PCP - General Family Medicine 08/02/22 Sherry Winchester RN [address] [facility] [place] [address] Specialty Skidway Man Hematology/Oncology 09/15/22 Anshul Riggs MD [address] [place] [address] Physician Hematology/Oncology 09/15/22 Jessica Catragena PA-C [address] [facility] [place] [address] Physician Mainframe Systems Engineer Hematology/Oncology 09/15/22 Marian Sapngler, TOOL MACHINE SETUP OPERATOR Department Assistant 09/15/22 Box Blank Machine Operator Helper Relationship Specialty Start Date End Date Milvia Hinkle [address] [facility] [place] [address] PCP - General Family Medicine 08/02/22 Sherry Winchester RN [address] [facility] [place] [address] Specialty Skidway Man Hematology/Oncology 09/15/22 Anshul Riggs MD [address] [place] [address] Physician Hematology/Oncology 09/15/22 Jessica Cartagena PA-C [address] [facility] [place] [address] Physician Mainframe Systems Engineer Hematology/Oncology 09/15/22 Marian Spangler, TOOL MACHINE SETUP OPERATOR Department Assistant 09/15/22 Box Blank Machine Operator Helper Relationship Specialty Start Date End Date Milvia Hinkle [address] [address] PCP - General Family Medicine 08/02/22 Sherry Winchester RN [address] [facility] [place] [address] Specialty Skidway Man Hematology/Oncology 09/15/22 Anshul Riggs MD [address] [facility] [address] Physician Hematology/Oncology 09/15/22 Jessica Cartagena PA-C [address] [facility] [place] [address] Physician Mainframe Systems Engineer Hematology/Oncology 09/15/22 Marian Spangler, TOOL MACHINE SETUP OPERATOR Department Assistant 09/15/22 Box Blank Machine Operator Helper Relationship Specialty Start Date End Date Milvia Hinkle [address] [place] [address] PCP - General Family Medicine 08/02/22 Sherry Winchester, RN [address] [facility] [place] [address] Specialty Skidway Man Hematology/Oncology 09/15/22 Anshul Riggs MD [address] [facility] [place] [address] Physician Hematology/Oncology 09/15/22 Jessica Cartagena PA-C [address] [facility] [place] [address] Physician Mainframe Systems Engineer Hematology/Oncology 09/15/22 Marian Spangler, TOOL MACHINE SETUP OPERATOR Department Assistant 09/15/22 Box Blank Machine Operator Helper Relationship Specialty Start Date End Date Milvia Hinkle [address] [place] [place] [address] PCP - General Family Medicine 08/02/22 Sherry Winchester, RN [address] [facility] [place] [address] Specialty Skidway Man Hematology/Oncology 09/15/22 Anshul Riggs MD [address] [place] [address] [place] [address] Physician Hematology/Oncology 09/15/22 Jessica Cartagena PA-C [address] [place] [address] [place] [address] Physician Mainframe Systems Engineer Hematology/Oncology 09/15/22 Marian Spangler, TOOL MACHINE SETUP OPERATOR Department Assistant 09/15/22 Box Blank Machine Operator Helper Relationship Specialty Start Date End Date Milvia Hinkle [address] [facility] [place] [address] PCP - General Family Medicine 08/02/22 Sherry Winchester, RN [address] [place] [address] Specialty Skidway Man Hematology/Oncology 09/15/22 Anshul Riggs MD [address] [place] [address] [place] [address] Physician Hematology/Oncology 09/15/22 Jessica Cartagena PA-C [address] [place] [address] [place] [address] Physician Mainframe Systems Engineer Hematology/Oncology 09/15/22 Marian Spangler, TOOL MACHINE SETUP OPERATOR Department Assistant 09/15/22 Box Blank Machine Operator Helper Relationship Specialty Start Date End Date Milvia Hinkle [address] [facility] [place] [address] PCP - General Family Medicine 08/02/22 Sherry Winchester, RN [address] [facility] [place] [address] Specialty Skidway Man Hematology/Oncology 09/15/22 Anshul Riggs MD [address] [place] [address] [place] [address] Physician Hematology/Oncology 09/15/22 Jessica Cartagena PA-C [address] [facility] [place] [address] Physician Mainframe Systems Engineer Hematology/Oncology 09/15/22 Marian Spangler, TOOL MACHINE SETUP OPERATOR Department Assistant 09/15/22 Box Blank Machine Operator Helper Relationship Specialty Start Date End Date Milvia Hinkle [address] [place] [address] PCP - General Family Medicine 08/02/22 Sherry Winchester, RN [address] [facility] [place] [address] Specialty Skidway Man Hematology/Oncology 09/15/22 Anshul Riggs MD [address] [place] [address] [place] [address] Physician Hematology/Oncology 09/15/22 Jessica Cartagena PA-C [address] [place] [address] [place] [address] Physician Mainframe Systems Engineer Hematology/Oncology 09/15/22 Marian Spangler, TOOL MACHINE SETUP OPERATOR Department Assistant 09/15/22 Box Blank Machine Operator Helper Relationship Specialty Start Date End Date Milvia Hinkle [address] [place] [address] PCP - General Family Medicine 08/02/22 Sherry Winchester, RN [address] [facility] [place] [address] Specialty Skidway Man Hematology/Oncology 09/15/22 Anshul Riggs MD [address] [place] [address] [place] [address] Physician Hematology/Oncology 09/15/22 Jessica Cartagena PA-C [address] [facility] [place] [address] Physician Mainframe Systems Engineer Hematology/Oncology 09/15/22 Marian Spangler, TOOL MACHINE SETUP OPERATOR Department Assistant 09/15/22 Box Blank Machine Operator Helper Relationship Specialty Start Date End Date Milvia Hinkle Jenn [address] [place] [address] PCP - General Family Medicine 08/02/22 Sherry Winchester, RN [address] [facility] [place] [address] Specialty Skidway Man Hematology/Oncology 09/15/22 Anshul Riggs MD [address] [place] [address] Physician Hematology/Oncology 09/15/22 Jessica Cartagena PA-C [address] [facility] [place] [address] Physician Mainframe Systems Engineer Hematology/Oncology 09/15/22 Marian Spangler, TOOL MACHINE SETUP OPERATOR Department Assistant 09/15/22 Box Blank Machine Operator Helper Relationship Specialty Start Date End Date Milvia Hinkle [address] [place] [address] PCP - General Family Medicine 08/02/22 Sherry Winchester, RN [address] [facility] [place] [address] Specialty Skidway Man Hematology/Oncology 09/15/22 Anshul Riggs MD [address] [facility] [place] [address] Physician Hematology/Oncology 09/15/22 Jessica Cartagena PA-C [address] [facility] [place] [address] Physician Mainframe Systems Engineer Hematology/Oncology 09/15/22 Marian Spangler, TOOL MACHINE SETUP OPERATOR Department Assistant 09/15/22 [facility] 06/25/23 Box Blank Machine Operator Helper Relationship Specialty Start Date End Date Milvia Hinkle [address] [facility] [place] [phone] PCP - General Family Medicine 08/02/22 Sherry Winchester, RN [address] [facility] [place] [address] Specialty Skidway Man Hematology/Oncology 09/15/22 Anshul Riggs MD [address] [facility] [place] [address] Physician Hematology/Oncology 09/15/22 Jessica Cartagena PA-C [address] [facility] [place] [address] Physician Mainframe Systems Engineer Hematology/Oncology 09/15/22 Marian Spangler LSW Department Assistant 09/15/22 [facility] Home Care Provider 06/25/23 Box Blank Machine Operator Helper Relationship Specialty Start Date End Date Milvia Hinkle [address] [facility] [place] [phone] PCP - General Family Medicine 08/02/22 Sherry Winchester, RN [address] [facility] [place] [address] Specialty Skidway Man Hematology/Oncology 09/15/22 Anshul Rigsg MD [address] [place] [address] [place] [address] Physician Hematology/Oncology 09/15/22 Jessica Cartagena PA-C [address] [place] [address] [place] [address] Physician Mainframe Systems Engineer Hematology/Oncology 09/15/22 Marian Spangler LSW Department Assistant 09/15/22 [facility] Home Care Provider 06/25/23 Team Status: [...] or prosecute any alcohol or drug abuse patient.[facility] HealthIn the event this information is protected by the Federal Confidentiality of Alcohol and Drug Abuse Patient Records regulations: The Federal rules restrict any use of the information to criminally investigate or prosecute any alcohol or drug abuse patient.[facility] HealthIn the event this information is protected by the Federal Confidentiality of Alcohol and Drug Abuse Patient Records regulations: The Federal rules restrict any use of the information to criminally investigate or prosecute any alcohol or drug abuse patient.[facility] HealthIn the event this information is protected by the Federal Confidentiality of Alcohol and Drug Abuse Patient Records regulations: The Federal rules restrict any use of the information to criminally investigate or prosecute any alcohol or drug abuse patient.[facility] HealthIn the event this information is protected by the Federal Confidentiality of Alcohol and Drug Abuse Patient Records regulations: The Federal rules restrict any use of the information to criminally investigate or prosecute any alcohol or drug abuse patient.[facility] HealthIn the event this information is protected by the Federal Confidentiality of Alcohol and Drug Abuse Patient Records regulations: The Federal rules restrict any use of the information to criminally investigate or prosecute any alcohol or drug abuse patient.[facility] HealthIn the event this information is protected by the Federal Confidentiality of Alcohol and Drug Abuse Patient Records regulations: The Federal rules restrict any use of the information to criminally investigate or prosecute any alcohol or drug abuse patient.[facility] HealthIn the event this information is protected by the Federal Confidentiality of Alcohol and Drug Abuse Patient Records regulations: The Federal rules restrict any use of the information to criminally investigate or prosecute any alcohol or drug abuse patient.[facility] HealthIn the event this information is protected by the Federal Confidentiality of Alcohol and Drug Abuse Patient Records regulations: The Federal rules restrict any use of the information to criminally investigate or prosecute any alcohol or drug abuse patient.[facility] HealthIn the event this information is protected by the Federal Confidentiality of Alcohol and Drug Abuse Patient Records regulations: The Federal rules restrict any use of the information to criminally investigate or prosecute any alcohol or drug abuse patient.[facility] HealthIn the event this information is protected by the Federal Confidentiality of Alcohol and Drug Abuse Patient Records regulations: The Federal rules restrict any use of the information to criminally investigate or prosecute any alcohol or drug abuse patient.[facility] HealthIn the event this information is protected by the Federal Confidentiality of Alcohol and Drug Abuse Patient Records regulations: The Federal rules restrict any use of the information to criminally investigate or prosecute any alcohol or drug abuse patient.[facility] HealthIn the event this information is protected by the Federal Confidentiality of Alcohol and Drug Abuse Patient Records regulations: The Federal rules restrict any use of the information to criminally investigate or prosecute any alcohol or drug abuse patient.[facility] HealthIn the event this information is protected by the Federal Confidentiality of Alcohol and Drug Abuse Patient Records regulations: The Federal rules restrict any use of the information to criminally investigate or prosecute any alcohol or drug abuse patient.[facility] HealthIn the event this information is protected by the Federal Confidentiality of Alcohol and Drug Abuse Patient Records regulations: The Federal rules restrict any use of the information to criminally investigate or prosecute any alcohol or drug abuse patient.[facility] HealthIn the event this information is protected by the Federal Confidentiality of Alcohol and Drug Abuse Patient Records regulations: The Federal rules restrict any use of the information to criminally investigate or prosecute any alcohol or drug abuse patient.[facility] HealthIn the event this information is protected by the Federal Confidentiality of Alcohol and Drug Abuse Patient Records regulations: The Federal rules restrict any use of the information to criminally investigate or prosecute any alcohol or drug abuse patient.[facility] HealthIn the event this information is protected by the Federal Confidentiality of Alcohol and Drug Abuse Patient Records regulations: The Federal rules restrict any use of the information to criminally investigate or prosecute any alcohol or drug abuse patient.[facility] HealthIn the event this information is protected by the Federal Confidentiality of Alcohol and Drug Abuse Patient Records regulations: The Federal rules restrict any use of the information to criminally investigate or prosecute any alcohol or drug abuse patient.[facility] HealthIn the event this information is protected by the Federal Confidentiality of Alcohol and Drug Abuse Patient Records regulations: The Federal rules restrict any use of the information to criminally investigate or prosecute any alcohol or drug abuse patient.[facility] HealthIn the event this information is protected by the Federal Confidentiality of Alcohol and Drug Abuse Patient Records regulations: The Federal rules restrict any use of the information to criminally investigate or prosecute any alcohol or drug abuse patient.[facility] HealthIn the event this information is protected by the Federal Confidentiality of Alcohol and Drug Abuse Patient Records regulations: The Federal rules restrict any use of the information to criminally investigate or prosecute any alcohol or drug abuse patient.[facility] HealthIn the event this information is protected by the Federal Confidentiality of Alcohol and Drug Abuse Patient Records regulations: The Federal rules restrict any use of the information to criminally investigate or prosecute any alcohol or drug abuse patient.[facility] HealthIn the event this information is protected by the Federal Confidentiality of Alcohol and Drug Abuse Patient Records regulations: The Federal rules restrict any use of the information to criminally investigate or prosecute any alcohol or drug abuse patient.[facility] HealthIn the event this information is protected by [...] or prosecute any alcohol or drug abuse patient.[facility] HealthIn the event this information is protected by the Federal Confidentiality of Alcohol and Drug Abuse Patient Records regulations: The Federal rules restrict any use of the information to criminally investigate or prosecute any alcohol or drug abuse patient.[facility] HealthIn the event this information is protected by the Federal Confidentiality of Alcohol and Drug Abuse Patient Records regulations: The Federal rules restrict any use of the information to criminally investigate or prosecute any alcohol or drug abuse patient.[facility] HealthIn the event this information is protected by the Federal Confidentiality of Alcohol and Drug Abuse Patient Records regulations: The Federal rules restrict any use of the information to criminally investigate or prosecute any alcohol or drug abuse patient.[facility] HealthIn the event this information is protected by the Federal Confidentiality of Alcohol and Drug Abuse Patient Records regulations: The Federal rules restrict any use of the information to criminally investigate or prosecute any alcohol or drug abuse patient.[facility] HealthIn the event this information is protected by the Federal Confidentiality of Alcohol and Drug Abuse Patient Records regulations: The Federal rules restrict any use of the information to criminally investigate or prosecute any alcohol or drug abuse patient.[facility] HealthIn the event this information is protected by the Federal Confidentiality of Alcohol and Drug Abuse Patient Records regulations: The Federal rules restrict any use of the information to criminally investigate or prosecute any alcohol or drug abuse patient.[facility] HealthIn the event this information is protected by the Federal Confidentiality of Alcohol and Drug Abuse Patient Records regulations: The Federal rules restrict any use of the information to criminally investigate or prosecute any alcohol or drug abuse patient.[facility] HealthIn the event this information is protected by the Federal Confidentiality of Alcohol and Drug Abuse Patient Records regulations: The Federal rules restrict any use of the information to criminally investigate or prosecute any alcohol or drug abuse patient.[facility] HealthIn the event this information is protected by the Federal Confidentiality of Alcohol and Drug Abuse Patient Records regulations: The Federal rules restrict any use of the information to criminally investigate or prosecute any alcohol or drug abuse patient.[facility] HealthIn the event this information is protected by the Federal Confidentiality of Alcohol and Drug Abuse Patient Records regulations: The Federal rules restrict any use of the information to criminally investigate or prosecute any alcohol or drug abuse patient.[facility] HealthIn the event this information is protected by the Federal Confidentiality of Alcohol and Drug Abuse Patient Records regulations: The Federal rules restrict any use of the information to criminally investigate or prosecute any alcohol or drug abuse patient.[facility] HealthIn the event this information is protected by the Federal Confidentiality of Alcohol and Drug Abuse Patient Records regulations: The Federal rules restrict any use of the information to criminally investigate or prosecute any alcohol or drug abuse patient.[facility] HealthIn the event this information is protected by the Federal Confidentiality of Alcohol and Drug Abuse Patient Records regulations: The Federal rules restrict any use of the information to criminally investigate or prosecute any alcohol or drug abuse patient.[facility] HealthIn the event this information is protected by the Federal Confidentiality of Alcohol and Drug Abuse Patient Records regulations: The Federal rules restrict any use of the information to criminally investigate or prosecute any alcohol or drug abuse patient.[facility] HealthIn the event this information is protected by the Federal Confidentiality of Alcohol and Drug Abuse Patient Records regulations: The Federal rules restrict any use of the information to criminally investigate or prosecute any alcohol or drug abuse patient.[facility] HealthIn the event this information is protected by the Federal Confidentiality of Alcohol and Drug Abuse Patient Records regulations: The Federal rules restrict any use of the information to criminally investigate or prosecute any alcohol or drug abuse patient.[facility] HealthIn the event this information is protected by the Federal Confidentiality of Alcohol and Drug Abuse Patient Records regulations: The Federal rules restrict any use of the information to criminally investigate or prosecute any alcohol or drug abuse patient.[facility] HealthIn the event this information is protected by the Federal Confidentiality of Alcohol and Drug Abuse Patient Records regulations: The Federal rules restrict any use of the information to criminally investigate or prosecute any alcohol or drug abuse patient.[facility] HealthIn the event this information is protected by the Federal Confidentiality of Alcohol and Drug Abuse Patient Records regulations: The Federal rules restrict any use of the information to criminally investigate or prosecute any alcohol or drug abuse patient.[facility] HealthIn the event this information is protected by the Federal Confidentiality of Alcohol and Drug Abuse Patient Records regulations: The Federal rules restrict any use of the information to criminally investigate or prosecute any alcohol or drug abuse patient.[facility] HealthIn the event this information is protected by the Federal Confidentiality of Alcohol and Drug Abuse Patient Records regulations: The Federal rules restrict any use of the information to criminally investigate or prosecute any alcohol or drug abuse patient.[facility] HealthIn the event this information is protected by the Federal Confidentiality of Alcohol and Drug Abuse Patient Records regulations: The Federal rules restrict any use of the information to criminally investigate or prosecute any alcohol or drug abuse patient.[facility] HealthIn the event this information is protected by the Federal Confidentiality of Alcohol and Drug Abuse Patient Records regulations: The Federal rules restrict any use of the information to criminally investigate or prosecute any alcohol or drug abuse patient.[facility] HealthIn the event this information is protected by the Federal Confidentiality of Alcohol and Drug Abuse Patient Records regulations: The Federal rules restrict any use of the information to criminally investigate or prosecute any alcohol or drug abuse patient.[facility] HealthIn the event this information is protected by the Federal Confidentiality of Alcohol and Drug Abuse Patient Records regulations: The Federal rules restrict any use of the information to criminally investigate or prosecute any alcohol or drug abuse patient.[facility] HealthIn the event this information is protected by the Federal Confidentiality of Alcohol and Drug Abuse Patient Records regulations: The Federal rules restrict any use of the information to criminally investigate or prosecute any alcohol or drug abuse patient.[facility] HealthIn the event this information is protected by the Federal Confidentiality of Alcohol and Drug Abuse Patient Records regulations: The Federal rules restrict any use of the information to criminally investigate or prosecute any alcohol or drug abuse patient.[facility] HealthIn the event this information is protected by the Federal Confidentiality of Alcohol and Drug Abuse Patient Records regulations: The Federal rules restrict any use of the information to criminally investigate or prosecute any alcohol or drug abuse patient.[facility] HealthIn the event this information is protected by the Federal Confidentiality of Alcohol and Drug Abuse Patient Records regulations: The Federal rules restrict any use of the information to criminally investigate or prosecute any alcohol or drug abuse patient.[facility] HealthIn the event this information is protected by the Federal Confidentiality of Alcohol and Drug Abuse Patient Records regulations: The Federal rules restrict any use of the information to criminally investigate or prosecute any alcohol or drug abuse patient.[facility] HealthIn the event this information is protected by the Federal Confidentiality of Alcohol and Drug Abuse Patient Records regulations: The Federal rules restrict any use of the information to criminally investigate or prosecute any alcohol or drug abuse patient.[facility] HealthIn the event this information is protected by the Federal Confidentiality of Alcohol and Drug Abuse Patient Records regulations: The Federal rules restrict any use of the information to criminally investigate or prosecute any alcohol or drug abuse patient.[facility] HealthIn the event this information is protected by the Federal Confidentiality of Alcohol and Drug Abuse Patient Records regulations: The Federal rules restrict any use of the information to criminally investigate or prosecute any alcohol or drug abuse patient.[facility] HealthIn the event this information is protected by the Federal Confidentiality of Alcohol and Drug Abuse Patient Records regulations: The Federal rules restrict any use of the information to criminally investigate or prosecute any alcohol or drug abuse patient.[facility] HealthIn the event this information is protected by the Federal Confidentiality of Alcohol and Drug Abuse Patient Records regulations: The Federal rules restrict any use of the information to criminally investigate or prosecute any alcohol or drug abuse patient.[facility] HealthIn the event this information is protected by the Federal Confidentiality of Alcohol and Drug Abuse Patient Records regulations: The Federal rules restrict any use of the information to criminally investigate or prosecute any alcohol or drug abuse patient.[facility] HealthIn the event this information is protected by the Federal Confidentiality of Alcohol and Drug Abuse Patient Records regulations: The Federal rules restrict any use of the information to criminally investigate or prosecute any alcohol or drug abuse patient.[facility] HealthIn the event this information is protected by the Federal Confidentiality of Alcohol and Drug Abuse Patient Records regulations: The Federal rules restrict any use of the information to criminally investigate or prosecute any alcohol or drug abuse patient.[facility] HealthIn the event this information is protected by the Federal Confidentiality of Alcohol and Drug Abuse Patient Records regulations: The Federal rules restrict any use of the information to criminally investigate or prosecute any alcohol or drug abuse patient.[facility] HealthIn the event this information is protected by the Federal Confidentiality of Alcohol and Drug Abuse Patient Records regulations: The Federal rules restrict any use of the information to criminally investigate or prosecute any alcohol or drug abuse patient.[facility] HealthIn the event this information is protected by the Federal Confidentiality of Alcohol and Drug Abuse Patient Records regulations: The Federal rules restrict any use of the information to criminally investigate or prosecute any alcohol or drug abuse patient.[facility] HealthIn the event this information is protected by the Federal Confidentiality of Alcohol and Drug Abuse Patient Records regulations: The Federal rules restrict any use of the information to criminally investigate or prosecute any alcohol or drug abuse patient.[facility] HealthIn the event this information is protected by the Federal Confidentiality of Alcohol and Drug Abuse Patient Records regulations: The Federal rules restrict any use of the information to criminally investigate or prosecute any alcohol or drug abuse patient.[facility] HealthIn the event this information is protected by the Federal Confidentiality of Alcohol and Drug Abuse Patient Records regulations: The Federal rules restrict any use of the information to criminally investigate or prosecute any alcohol or drug abuse patient.[facility] HealthIn the event this information is protected by the Federal Confidentiality of Alcohol and Drug Abuse Patient Records regulations: The Federal rules restrict any use of the information to criminally investigate or prosecute any alcohol or drug abuse patient.[facility] HealthIn the event this information is protected by the Federal Confidentiality of Alcohol and Drug Abuse Patient Records regulations: The Federal rules restrict any use of the information to criminally investigate or prosecute any alcohol or drug abuse patient.[facility] HealthIn the event this information is protected by the Federal Confidentiality of Alcohol and Drug Abuse Patient Records regulations: The Federal rules restrict any use of the information to criminally investigate or prosecute any alcohol or drug abuse patient.[facility] HealthIn the event this information is protected by the Federal Confidentiality of Alcohol and Drug Abuse Patient Records regulations: The Federal rules restrict any use of the information to criminally investigate or prosecute any alcohol or drug abuse patient.[facility] HealthIn the event this information is protected by [...] or prosecute any alcohol or drug abuse patient.[facility] HealthIn the event this information is protected by the Federal Confidentiality of Alcohol and Drug Abuse Patient Records regulations: The Federal rules restrict any use of the information to criminally investigate or prosecute any alcohol or drug abuse patient.[facility] HealthIn the event this information is protected by the Federal Confidentiality of Alcohol and Drug Abuse Patient Records regulations: The Federal rules restrict any use of the information to criminally investigate or prosecute any alcohol or drug abuse patient.[facility] HealthIn the event this information is protected by the Federal Confidentiality of Alcohol and Drug Abuse Patient Records regulations: The Federal rules restrict any use of the information to criminally investigate or prosecute any alcohol or drug abuse patient.[facility] HealthIn the event this information is protected by the Federal Confidentiality of Alcohol and Drug Abuse Patient Records regulations: The Federal rules restrict any use of the information to criminally investigate or prosecute any alcohol or drug abuse patient.[facility] HealthIn the event this information is protected by the Federal Confidentiality of Alcohol and Drug Abuse Patient Records regulations: The Federal rules restrict any use of the information to criminally investigate or prosecute any alcohol or drug abuse patient.[facility] HealthIn the event this information is protected by the Federal Confidentiality of Alcohol and Drug Abuse Patient Records regulations: The Federal rules restrict any use of the information to criminally investigate or prosecute any alcohol or drug abuse patient.[facility] HealthIn the event this information is protected by the Federal Confidentiality of Alcohol and Drug Abuse Patient Records regulations: The Federal rules restrict any use of the information to criminally investigate or prosecute any alcohol or drug abuse patient.[facility] HealthIn the event this information is protected by the Federal Confidentiality of Alcohol and Drug Abuse Patient Records regulations: The Federal rules restrict any use of the information to criminally investigate or prosecute any alcohol or drug abuse patient.[facility] HealthIn the event this information is protected by the Federal Confidentiality of Alcohol and Drug Abuse Patient Records regulations: The Federal rules restrict any use of the information to criminally investigate or prosecute any alcohol or drug abuse patient.[facility] HealthIn the event this information is protected by the Federal Confidentiality of Alcohol and Drug Abuse Patient Records regulations: The Federal rules restrict any use of the information to criminally investigate or prosecute any alcohol or drug abuse patient.[facility] HealthIn the event this information is protected by the Federal Confidentiality of Alcohol and Drug Abuse Patient Records regulations: The Federal rules restrict any use of the information to criminally investigate or prosecute any alcohol or drug abuse patient.[facility] HealthIn the event this information is protected by the Federal Confidentiality of Alcohol and Drug Abuse Patient Records regulations: The Federal rules restrict any use of the information to criminally investigate or prosecute any alcohol or drug abuse patient.[facility] HealthIn the event this information is protected by the Federal Confidentiality of Alcohol and Drug Abuse Patient Records regulations: The Federal rules restrict any use of the information to criminally investigate or prosecute any alcohol or drug abuse patient.[facility] Reason for Visit (unrecogniz ed section and [...] FRONT/PARIET BONE FLAP CRANIOTOMY FRONTAL [facility] [address] [place] [address] Referral ID Status Reason Start Date Expiration Date Visits Re quested Visits Authorized [id number] 1 Reason Comments Insurance Authorization Eliquis [...] Reason Comments glioblastoma Follow up Reason Comments [place] [facility] - Other Reason Onset Date Comments Refill [...] Procedures VIDEO PSYC/PSYL Anshul Brown MD [address] [place] [address] Diya Murry, PhD [address] [place] [address] Referral ID Status Reason Start Date Expiration Date V isits Requested Visits Authorized [id number] Pending Review 05/08/2023 08/06/2023 1 1 Specialty Diagnoses / Procedures Referred By Contac t Referred To Contact [facility] IMAGING Diagnoses Glioblastoma multiforme (HCC) Procedures MRI BRAIN WO/W IVCON MRI BRAIN BRAIN STEM W/O W/CONTRAST MATERIAL Jessica Cartagena PA-C [address] [place] [address] [place] [address] [place] [id number] Referral ID Status Reason Start Date Expiration Date V isits Requested Visits Authorized [id number] Closed Auto-Generate d Referral 02/08/2023 02/08/2024 1 1 Specialty Diagnoses / Procedures Referred By Contac t Referred To Contact MR IMAGING Diagnoses Glioblastoma multiforme (HCC) Procedures MRI BRAIN WO/W IVCON MRI BRAIN BRAIN STEM W/O W/CONTRAST MATERIAL Anshul Riggs MD [address] [place] [id number] [place] [id number] Referral ID Status Reason Start Date Expiration Date V isits Requested Visits Authorized [id number] Closed Auto-Generate d Referral 05/04/2023 05/03/2024 1 [...] BE BASED ON THE PRIMARY CLINICAL RECORDS. [employer] provides no warranty or guarantee of the accuracy or completeness of information in this document.
[2023-07-31 05:58] LABS: PROCALCITONIN <0.05 ng/mL (0.00-0.50)
--- NOTE | 2023-07-31 09:05 | CM.NOTE ---
Rounds made with Dr. Butterfield, no discharge today.
[2023-07-31] MEDS: FAMOTIDINE 20 MG TABLET PO (09:33)
[2023-07-31] MEDS: APIXABAN 5 MG TABLET PO ×2 (09:33→19:38)
[2023-07-31] MEDS: BENZONATATE 100 MG CAPSULE 200 MG PO ×2 (09:33→17:32)
[2023-07-31] MEDS: LEVOFLOXACIN IN DEXTROSE 5 % 750 MG/150 ML IV.SOLN 100 MG IV (09:35)
--- NOTE | 2023-07-31 10:01 | P.HP_ITS ---
H&P: HPI History of Present Illness Chief complaint: COUGH RSV Narrative: Patient presented to the emergency room with increasing cough and shortness of breath. Found to have acute RSV bronchiolitis. With her symptoms she was admitted overnight. Chest x-ray suggest right lower lobe pneumonia as well. Review of Systems ROS Status of ROS 10 or more systems reviewed and unremark able except as noted in history and below [facility] History (Updated 07/31/23 @ 06:18 by Sasha Loo) Cancer ?C80.1 - Malignant (primary) neoplasm, unspecified (ICD-10) FHx: total knee replacement ?Z82.69 - Family history of other diseases of the musculoskeletal system and connective tissue (ICD-10) Varicose veins of both lower extremities ?I83.93 - Asymptomatic varicose veins of bilateral lower extremities (ICD-10) Memory loss ?R41.3 - Other amnesia (ICD-10) High cholesterol ?E78.00 - Pure hypercholesterolemia, unspecified (ICD-10) HTN (hypertension) ?I10 - Essential (primary) hypertension (ICD-10) Cataract ?H26.9 - Unspecified cataract (ICD-10) DVT (deep venous thrombosis) ?I82.409 - Acute embolism and thrombosis of unspecified deep veins of unspecified lower extremity (ICD-10) Brain tumor ?D49.6 - Neoplasm of unspecified behavior of brain (ICD-10) Surgical History (Updated 07/31/23 @ 06:17 by Sasha Loo) History of hysterectomy ?Z90.710 - Acquired absence of both cervix and uterus (ICD-10) Family History (Updated 07/31/23 @ 06:18 by Sasha Loo) Mother Family history of myocardial infarction Social History (Updated 07/31/23 @ 06:19 by Sasha Loo) Smoking status: Never smoker Second hand tobacco smoke exposure: No Non-prescribed substance use: denies use Previous occupational history: retired Known occupational exposures/hazards: No Highest level of school completed/degree received: 10th grade Do you want help with school or training: No Are you now , , , , never or living with a partner: In a typical week, how many times do you talk on the telephone with family, frie nds, or neighbors: 3 or more times per week How often do you get together with friends or relatives: 3 or more times per week How often do you attend muslim or sabianism services: never Do you belong to any clubs or organizations such as muslim groups unions, fraternal or athletic groups, or school groups: no Total score: 2 Score interpretation: A score of greater than or equal to 2 indicates the lowest level of social isolation. Little interest or pleasure in doing things: several days Feeling down, depressed, or hopeless: several days Feel stressed/tense/nervous/anxious/difficulty sleeping: decline to answer Life stressors: unknown source of stress Due to disability, difficulty making decisions: No Do you think of yourself as: straight/heterosexual Gender Identity: female Meds Home Medications and Allergies Home Medications Medication Instructions Recorded Confirmed Type apixaban 5 mg tablet (Eliquis) 5 mg PO BID 07/28/23 07/31/23 History citalopram 20 mg tablet 20 mg PO DAILY 07/28/23 07/31/23 History dexamethasone 2 mg tablet 2 mg PO DAILY 07/28/23 07/31/23 History famotidine 20 mg tablet 20 mg PO DAILY 07/28/23 07/31/23 History furosemide 20 mg tablet 20 mg PO BID 07/28/23 07/31/23 History hydrochlorothiazide 25 mg tablet 25 mg PO DAILY 07/28/23 07/31/23 History lisinopril 10 mg tablet 10 mg PO DAILY 07/28/23 07/31/23 History lomustine 40 mg capsule (Gleostine) 160 mg PO .COMPLEX 07/28/23 07/31/23 History potassium chloride 20 mEq 20 meq PO BID 07/28/23 07/31/23 History tablet,extended release(part/cryst) Allergies Allergy/AdvReac Type Severity Reaction Status Date / Time No Known Drug Allergies Allergy Verified 07/28/23 14:01 Exam Constitutional Vital Signs, click to edit/add: Last Vital Signs Temp 98.6 F 07/31/23 05:36 Pulse 84 07/31/23 08:20 Resp 24 07/31/23 05:36 BP 124/63 07/31/23 05:36 Pulse Ox 97 07/31/23 07:44 O2 Del Method Nasal Cannula 07/31/23 07:44 O2 Flow Rate 2 07/31/23 07:44 Documenting provider has reviewed patient's vital signs: yes Common normals: apparent distress (Mild respiratory distress) Chest Common normals: inspection of chest normal Respiratory Common normals: normal respiratory effort and no retractions Auscultation: rhonchi and egophony (Right lower lobe egophony) Cardio Common normals: regular rate and regular rhythm Extremity Common normals: normal to inspection Neuro Common normals: CN's II-XII intact bilaterally and moves all extremities Results Labs Labs: Short CBC 07/31/23 Range/Units 03:32 WBC 5.2 (4.0-11.0) 10^3/uL Hgb 10.3 L (12.0-16.0) g/dL Hct 32.0 L (36.0-48.0) % Plt Count 75 L (150-450) 10^3/uL BMP 07/31/23 03:32 Sodium 145 Potassium 3.6 Chloride 107 Carbon Dioxide 28.2 BUN 35.0 H Creatinine 0.94 Glucose 125 H Calcium 9.7 Assessment and Plan Assessment and Plan (1) Acute bronchospasm: (2) Respiratory syncytial virus (RSV) bronchiolitis: Plan Sinus tachycardia, respiratory distress secondary to right lower lobe pneumonia complicated by acute RSV bronchiolitis. This is community-acquired pneumonia on top of the RSV bronchiolitis. Could added antibiotics this morning. Continue with other treatment plan. Bumped up steroids due to lack of improvement on lung exam. No significant hypoxia present but with degree of findings will observe patient overnight. Possible discharge in a.m. Iron deficiency anemia-monitor daily Thrombocytopenia-monitor daily Blood clot lower extremity-continue with Eliquis Depression symptoms-continue escitalopram Hypertension-continue with home medications Without significant hypoxia maintain patient is observational status would not be surprising for patient to have an O2 requirement later today with progression of the RSV bronchiolitis with a community-acquired pneumonia. Will change patient to inpatient status if that happens.
[2023-07-31] MEDS: ACETAMINOPHEN 500 MG TABLET 1000 MG PO ×2 (10:03→19:37)
--- NOTE | 2023-07-31 10:53 | SWNOTE1 ---
SW met with pt to discuss dc needs. Pt is unsure where she is at in [place] and mentioned a restaurant. SW re-directed and let her know she was at [facility]. Pt was oriented to self and spoke about living with her Anastacio. Pt also let SW know her daughter, Caridad lives next door and just sold her house yesterday and is living with them for the time being. SW and pt attempted to call pt's , but his cell phone was not working. SW to check charts for another number. SW to check back with pt once family is here to discuss any dc needs.
--- NOTE | 2023-07-31 11:54 | SWNOTE1 ---
SW spoke with pt's daughter, Caridad, in room. Caridad did sell her house and is living with her mother and caring for her. There is also another daughter who takes turns caring for patient as well. Between family, pt has 24/7 caregiving. Family assists patient with walking inside the home. Pt has chiar lift, wheelchair, walker, and oxygen at home. She also has nebulizer. Pt's daughter stated they also have access for pt to have catheter at home if she is not able to get to restroom. SW offered home health, but pt's daughter stated they have had in past and do not feel it would be beneficial at this time. Pt's daughter denies any needs at discharge at this time. SW to follow as needed.
[2023-07-31] MEDS: METHYLPREDNISOLONE SOD SUCC PF 40 MG/ML VIAL 60 MG IVP ×2 (13:56→19:37)
--- NOTE | 2023-07-31 14:45 | CM.NOTE ---
Outpatient Observation Notice discussed with pt and . Both verbalize understanding and signs paper. Original given to patient and copy placed on pt's chart.
[2023-08-01] VITALS (11 sets, daily range): BP systolic 122–124; BP diastolic 69–73; PULSE 54–110; RESP 18–20; TEMP 36.6; O2SAT 93–99
[2023-08-01 00:11] LABS: A. calcoaceticus-baumannii Cpx NOT DETECTED (NOT DETECTE); Bacteroides fragilis NOT DETECTED (NOT DETECTE); Candida albicans NOT DETECTED (NOT DETECTE); Candida auris NOT DETECTED (NOT DETECTE); Candida glabrata NOT DETECTED (NOT DETECTE); Candida krusei NOT DETECTED (NOT DETECTE); Candida parapsilosis NOT DETECTED (NOT DETECTE); Candida tropicalis NOT DETECTED (NOT DETECTE); Cryptococcus neoformans/gattii NOT DETECTED (NOT DETECTE); Enterobacter cloacae complex NOT DETECTED (NOT DETECTE); Enterobacterales NOT DETECTED (NOT DETECTE); Enterococcus faecalis NOT DETECTED (NOT DETECTE); Enterococcus faecium NOT DETECTED (NOT DETECTE); Haemophilus influenzae NOT DETECTED (NOT DETECTE); Klebsiella aerogenes NOT DETECTED (NOT DETECTE); Klebsiella pneumoniae group NOT DETECTED (NOT DETECTE); Listeria monocytogenes NOT DETECTED (NOT DETECTE); Neisseria meningitidis NOT DETECTED (NOT DETECTE); Proteus spp. NOT DETECTED (NOT DETECTE); Pseudomonas aeruginosa NOT DETECTED (NOT DETECTE); Salmonella spp. NOT DETECTED (NOT DETECTE); Serratia marcescens NOT DETECTED (NOT DETECTE); Staphylococcus epidermidis NOT DETECTED (NOT DETECTE); Staphylococcus lugdunensis NOT DETECTED (NOT DETECTE); Stenotrophomonas maltophilia NOT DETECTED (NOT DETECTE); Streptococcus agalactiae NOT DETECTED (NOT DETECTE); Streptococcus pneumoniae NOT DETECTED (NOT DETECTE); Streptococcus pyogenes NOT DETECTED (NOT DETECTE); Streptococcus spp. NOT DETECTED (NOT DETECTE)
[2023-08-01] MEDS: METHYLPREDNISOLONE SOD SUCC PF 40 MG/ML VIAL 60 MG IVP ×2 (01:54→09:27)
--- NOTE | 2023-08-01 02:08 | PC.NURSE ---
0002 notified Dayanna DAVID about patient's skin tear to left [place]. [employer] cleansed covered with Vaseline gauze, telfa and secured with kerlix.
[2023-08-01] MEDS: IPRATROPIUM/ALBUTEROL SULFATE 3 ML AMPUL.NEB IH ×2 (03:54→07:46)
--- NOTE | 2023-08-01 03:54 | RESP.RT ---
decreased down to 1L
[2023-08-01 04:06] LABS: Staphylococcus spp. DETECTED (NOT DETECTE)
[2023-08-01 05:29] LABS: Hematocrit 29.6 % (36.0-48.0); Hemoglobin 9.4 g/dL (12.0-16.0); Immature Granulocytes Abs Auto 0.04 10^3/uL (0.00-0.03); Immature Granulocytes Pct Auto 1.2 % (0.0-0.5); Lymphocytes Absolute Auto 0.2 10^3/uL (1.2-3.8); Lymphocytes Percent Auto 6.5 % (20.5-60.0); Mean Corpuscular HGB Conc 31.8 g/dL (29.9-35.2); Mean Corpuscular Hemoglobin 30.2 pg (26.7-34.0); Mean Corpuscular Volume 95.2 fL (81.0-99.0); Mean Platelet Volume 11.4 fL (9.5-13.5); Monocytes Absolute Auto 0.2 10^3/uL (0.3-0.8); Monocytes Percent Auto 6.2 % (1.7-12.0); Neutrophils Absolute Auto 2.9 10^3/uL (1.4-6.5); Neutrophils Percent Auto 86.1 % (43.0-75.0); Platelet Count 141 10^3/uL (150-450); Red Blood Count 3.11 10^6/uL (4.20-5.40); Red Cell Distribution Width 13.9 % (11.0-15.0); White Blood Count 3.4 10^3/uL (4.0-11.0)
[2023-08-01 05:49] LABS: Alanine Aminotransferase 18 U/L (14-59); Albumin Globulin Ratio 0.7; Albumin Level 2.5 g/dL (3.4-5.0); Alkaline Phosphatase 61 U/L (46-116); Aspartate Amino Transferase 9 U/L (15-37); Bilirubin Total 0.4 mg/dL (0.2-1.0); Carbon Dioxide 27.3 mmol/L (21.0-32.0); Chloride 106 mmol/L (98-107); Estimated GFR (African America >60 (>=60); Estimated GFR (Non-African Ame 53 (>=60); Globulin 3.5 g/dL; Glucose 172 mg/dL (74-106); Potassium 3.3 mmol/L (3.5-5.1); Sodium 142 mmol/L (136-145)
--- NOTE | 2023-08-01 08:03 | PM.PN ---
Exam Constitutional Vital Signs, click to edit/add: Last Vital Signs Temp 97.8 F 08/01/23 05:30 Pulse 83 08/01/23 07:48 Resp 20 08/01/23 05:30 BP 124/69 08/01/23 05:30 Pulse Ox 93 L 08/01/23 07:48 O2 Del Method Nasal Cannula 08/01/23 07:48 O2 Flow Rate 1 08/01/23 07:48 Common normals: no apparent distress, oriented x3 and alert General appearance: cooperative Orientation/consciousness: Yes awake HENMT Common normals: normocephalic, head/scalp atraumatic and hearing grossly normal bilaterally Eye Common normals: PERRL, EOMs intact bilaterally, conjunctivae normal and no scleral icterus General eye: normal appearance of both eyes Chest Common normals: inspection of chest normal Chest: symmetrical chest wall rise Respiratory Common normals: normal respiratory effort and no use of accessory muscles Effort & inspection: able to speak in complete sentences Auscultation: rhonchi (Scattered throughout, greatest on Right), wheezes (Upper airway) and diminished lung sounds (LLL) Cardio Common normals: regular rate, regular rhythm, S1 normal heart sound, S2 normal heart sound, no murmurs and peripheral pulses 2+ throughout GI Common normals: Normal to inspection, nondistended, normoactive bowel sounds present, soft to palpation, non-tender and no hepatosplenomegaly Bladder/kidney exam: bladder normal to palpation Extremity Common normals: normal to inspection and no calf tenderness General: no clubbing and no cyanosis Neuro Common normals: CN's II-XII intact bilaterally, moves all extremities, no focal motor deficits and no sensory deficits noted Psych Common normals: mental status grossly normal Progress Note: Objective Labs Labs: Short CBC 08/01/23 Range/Units 04:31 WBC 3.4 L (4.0-11.0) 10^3/uL Hgb 9.4 L (12.0-16.0) g/dL Hct 29.6 L (36.0-48.0) % Plt Count 141 L (150-450) 10^3/uL BMP 08/01/23 04:31 Sodium 142 Potassium 3.3 L Chloride 106 Carbon Dioxide 27.3 BUN 41.0 H Creatinine 1.00 Glucose 172 H Calcium 10.0 Liver Function 08/01/23 Range/Units 04:31 Total Bilirubin 0.4 (0.2-1.0) mg/dL AST 9 L (15-37) U/L ALT 18 (14-59) U/L Alkaline Phosphatase 61 (46-116) U/L Albumin 2.5 L (3.4-5.0) g/dL Progress Note: A&P Assessment and Plan (1) Acute bronchospasm: (2) Respiratory syncytial virus (RSV) bronchiolitis:
--- NOTE | 2023-08-01 08:07 | CM.NOTE ---
Rounds made with Dr. Butterfield, pt continues on oxygen. No discharge today.
[2023-08-01] MEDS: FAMOTIDINE 20 MG TABLET PO (08:51)
[2023-08-01] MEDS: APIXABAN 5 MG TABLET PO (08:51)
[2023-08-01] MEDS: GUAIFENESIN 600 MG TAB.ER.12H PO (08:55)
[2023-08-01] MEDS: POTASSIUM CHLORIDE 10 MEQ ER TABLET 40 MEQ PO (09:28)
--- NOTE | 2023-08-01 10:07 | P.DS_ITS ---
<Statement entered by Travis Butterfield MD - 08/01/23 18:39> This documentation has been reviewed and approved. Agree with input and diagnoses provided by nurse practitioner. Added diagnosis of hypokalemia DS: Providers Provider Date of admission: 07/31/23 05:28 Primary care physician: DENYS HINKLE Consults: 07/31/23 10:01 Occupational Therapy Eval and Treat Routine Reason for consultation: eval and treat Has provider been notified: No Physical Therapy Eval and Treat Routine Reason for consultation: eval an treat Has provider been notified: No DS: Diagnosis Discharge Diagnosis (1) Pneumonia: Qualifiers: Pneumonia type: due to unspecified organism Laterality: right Lung location: lower lobe of lung Qualified Code(s): J18.9 - Pneumonia, unspecified organism (2) Respiratory syncytial virus (RSV) bronchiolitis: (3) Sinus tachycardia: (4) Iron deficiency anemia: (5) Thrombocytopenia: (6) HTN (hypertension): (7) Brain tumor: (8) DVT (deep venous thrombosis): (9) Depression: DS: Summary Hospital Course Hospital Course: The patient was admitted with acute right lower lobe community-acquired pneumonia on top of RSV bronchiolitis, with associated sinus tachycardia and respiratory distress. She was treated with IV Levaquin, high-dose IV steroids, nebulized breathing treatments, and cough suppressants as needed. She initially required a little O2 supplementation at 2 L but this has been weaned off and her O2 sats are stable on room air and she is without respiratory distress at the time of discharge. In addition her sinus tachycardia has been resolved for more than 24 hours. Her BP was soft on admission and her diuretics and antihypertensives were held on admission. Her BP is stable but well controlled without meds at the time of discharge. We have ordered her to resume her home meds in a staggered fashion to avoid hypotension after discharge. As the patient appears to be at or near her baseline and she has plenty of support at home she is being discharged home in stable condition. Her reports that she already has oxygen and nebulized breathing treatments at home if needed. She developed mild hypokalemia on the day of discharge which was repleted with p.o. KCl and she will continue KCl supplementation at home per her usual regimen. She has been prescribed renally dosed p.o. Levaquin and a prednisone taper. She should follow-up with her PCP in 3 to 5 days. Time Spent with Patient Time attestation: Total time spent providing and/or coordinating discharge services: Exam Constitutional Vital Signs, click to edit/add: Last Vital Signs Temp 97.8 F 08/01/23 05:30 Pulse 110 H 08/01/23 10:00 Resp 18 08/01/23 08:04 BP 122/73 08/01/23 08:04 Pulse Ox 93 L 08/01/23 08:04 O2 Del Method Room Air 08/01/23 08:04 O2 Flow Rate 1 08/01/23 07:48 Common normals: no apparent distress, oriented x3 and alert General appearance: cooperative Orientation/consciousness: Yes awake HENMT Common normals: normocephalic, head/scalp atraumatic and hearing grossly normal bilaterally Eye Common normals: PERRL, EOMs intact bilaterally, conjunctivae normal and no scleral icterus General eye: normal appearance of both eyes Chest Common normals: inspection of chest normal Chest: symmetrical chest wall rise Respiratory Common normals: normal respiratory effort and no use of accessory muscles Effort & inspection: able to speak in complete sentences; non tachypneic Auscultation: rhonchi (Scattered throughout, greatest on R. Partially clears with cough) and diminished lung sounds (LLL) Cardio Common normals: regular rate, regular rhythm, S1 normal heart sound, S2 normal heart sound, no murmurs and peripheral pulses 2+ throughout GI Common normals: Normal to inspection, nondistended, normoactive bowel sounds present, soft to palpation, non-tender and no hepatosplenomegaly Palpation: soft and no hepatosplenomegaly Bladder/kidney exam: bladder normal to palpation Extremity Common normals: normal to inspection and no calf tenderness General: edema (trace bilat insteps); no clubbing and no cyanosis Neuro Common normals: CN's II-XII intact bilaterally, moves all extremities, no focal motor deficits and no sensory deficits noted Psych Common normals: mental status grossly normal DS: Data Data Completed and Pending Labs on day of discharge: Labs from last 24 hours 08/01/23 07/31/23 04:31 06:00 WBC 3.4 L RBC 3.11 L Hgb 9.4 L Hct 29.6 L MCV 95.2 MCH 30.2 MCHC 31.8 RDW 13.9 Plt Count 141 L MPV 11.4 Neut % (Auto) 86.1 H Lymph % (Auto) 6.5 L Troup % (Auto) 6.2 Eos % (Auto) 0.0 L Baso % (Auto) 0.0 L Neut # (Auto) 2.9 Lymph # (Auto) 0.2 L Troup # (Auto) 0.2 L Eos # (Auto) 0.0 Baso # (Auto) 0.0 Abs Immat Gran (auto) 0.04 H Imm/Tot Granulo (auto) 1.2 H Sodium 142 Potassium 3.3 L Chloride 106 Carbon Dioxide 27.3 Anion Gap 12.0 BUN 41.0 H Creatinine 1.00 Est GFR ( Amer) >60 Est GFR (Non-Af Amer) 53 L BUN/Creatinine Ratio 41.0 Glucose 172 H Calcium 10.0 Total Bilirubin 0.4 AST 9 L ALT 18 Alkaline Phosphatase 61 Total Protein 6.0 L Albumin 2.5 L Globulin 3.5 Albumin/Globulin Ratio 0.7 Laci H. influenza (PCR) Not detected A.calcoaceticus-baumannii cmplx PCR Not detected Bacteroides fragilis Not detected Farheen albicans (PCR) Not detected Farheen auris (PCR) Not detected C. glabrata (PCR) Not detected C. krusei (PCR) Not detected C. parapsilosis (PCR) Not detected C. tropicalis (PCR) Not detected C. neoform/gattii (PCR) Not detected Enterobacterales (PCR) Not detected E. cloacae complex PCR Not detected Enterococc faecalis PCR Not detected Enterococc faecium PCR Not detected E. coli (PCR) Not detected Klebsiella aerogenes (PCR) Not detected Klebsiella oxytoca PCR Not detected K. pneumoniae group (PCR) Not detected List. monocytogenes PCR Not detected N. meningitidis (PCR) Not detected Proteus spp. (copies/mL) Not detected Salmonella spp. (PCR) Not detected Serratia marcescens PCR Not detected Staphylococcus sp PCR Detected A* Staph aureus (PCR) Not detected mecA/C & MREJ Resist Gene Not applicable mecA/C-Methicil Resis Gene Not applicable mcr-1 Colistin Res Gene PCR Not applicable Staph epidermidis (PCR) Not detected Staph lugdunensis (TEM-PCR) Not detected S. maltophilia (PCR) Not detected Streptococcus sp PCR Not detected Strep agalactiae (PCR) Not detected Strep pneumoniae (PCR) Not detected S. pyogenes (PCR) Not detected P. aeruginosa (PCR) Not detected Trcay/B-Vanco Res Genes Not applicable blaIMP Car res Gene PCR Not applicable KPC (blaKPC) Detect PCR Not applicable NDM (blaNDM) Detect PCR Not applicable OXA-48 Carbapenem Resis Gene (PCR) Not applicable blaVIM Car Res Gene PCR Not applicable CTX-M ESBL (PCR) Not applicable Imaging Chest x-ray: Attestation: I have reviewed the pertinent imaging results. Radiologist's impression: IMPRESSION: 1. Trace amount of infiltrates versus atelectasis within medial right lung base/infrahilar region. 2. Prominent pericardial fat pad versus lingular infiltrates; unchanged. Discharge Plan Discharge Disposition: Home, Self-Care Discharge Medications: New levofloxacin 750 mg tablet 750 mg PO Q48H 5 Days Qty: 3 0RF Rx Instructions: Take every other day. First dose on 08/02/23. prednisone 10 mg tablet See Rx Instructions .ROUTE .COMPLEX 12 Days Qty: 42 0RF Rx Instructions: 6 tabs daily x 2 days, then 5 tabs daily x 2 days, then 4 tabs daily x 2 days, then 3 tabs daily x 2 days, then 2 tabs daily x 2 days, then 1 tab daily x 2 days, then stop guaifenesin 600 mg tablet extended release 12hr 600 mg PO BID Qty: 14 0RF Rx Instructions: OTC medication. Take twice daily x 7 days, then as needed. Continued Eliquis 5 mg tablet 5 mg PO BID citalopram 20 mg tablet 20 mg PO DAILY furosemide 20 mg tablet 20 mg PO BID Gleostine 40 mg capsule 160 mg PO .COMPLEX Rx Instructions: 160 mg orally Q6wks; dexamethasone 2 mg tablet 2 mg PO DAILY famotidine 20 mg tablet 20 mg PO DAILY potassium chloride 20 mEq tablet,ER particles/crystals 20 meq PO BID Held hydrochlorothiazide 25 mg tablet 25 mg PO DAILY Hold Instructions: Resume on 08/03/23. lisinopril 10 mg tablet 10 mg PO DAILY Hold Instructions: Resume on 08/06/23. Activity: increase activity as tolerated Diet: advance to your usual diet Activity Restrictions/Additional Instructions: - Use home nebulizer treatments every 4 hrs as needed - PCP could consider follow up chest x-ray in 1 mo to confirm resolution Forms: Portal Instructions Follow Up Appointments: - PCP in 3-5 days
--- NOTE | 2023-08-01 10:28 | SWNOTE1 ---
SW spoke with pt's in room and pt is being discharged today. No needs at time of discharge, per . did state they will have a nurse from [facility] coming out to see her.
--- NOTE | 2023-08-01 10:53 | REH.PTDLY ---
Physical Therapy Daily Note PT Daily Note/Assess Start: 08/01/23 10:46 Freq: Status: Active Protocol: Document 08/01/23 10:10 ALEX (Rec: 08/01/23 10:53 ALEX [id number]) Physical Therapy Daily Note/Assessment Time In 09:45 Time Out 10:06 Subjective Pt in bed upon arrival, agreeable to PT. Therapeutic Exercise Minutes (minutes) 8 Therapeutic Exercise Units 0 Therapeutic Exercise Treatment AA-AROM with R LE exs in supine 10x with tactile and verbal cues given. PROM to L LE 5-10x. Therapeutic Activity Minutes (minutes) 10 Therapeutic Activity Units 1 Bed Mobility Ability Maximum Assist,2 Person Assist Chair Transfer Ability Maximum Assist,2 Person Assist Therapeutic Activity Comments Cues for pt to move R LE towards EOB for supine to sit transfer, requires assistance. Pt transfers supine to sit Max A x2. Attempted standing 2x prior to transferring to chair, cues for pt to keep R LE back. Max A x2 for stand pivot transfer from bedside into chair. Pt reports feeling comfortable once upright in chair with call light at hand and aide in room. Total Therapy Minutes 18 Total Physical Therapy Units 1 Daily Note Summary Pt requires Max A x2 with transfers, pt seems to be at baseline with transfers as pt is non-ambulatory. JOANN Ochoa enters room during rx and states pt is to be DC back to home with family today.
[2023-08-01 15:59] LABS: Source BLOOD
--- NOTE | 2023-08-03 13:58 | CM.NOTE ---
Attempted to do Discharge Follow up phone call x2 without success.
--- NOTE | 2023-08-06 15:22 | CM.DCFOLLOWU ---
Fast busy signal attempted twice 08/06
== END 2023-08-01 11:30 | disposition home or self-care (01) ==
LOC: ER 04:39 → MS 05:28
PROVIDERS: Registered Nurse; Admitting Provider Family Medicine; Emergency Provider Internal Medicine; PCP Family Medicine; Visit Provider Nurse Practitioner
DX: J18.9 Pneumonia, unspecified organism (principal); J21.0 Acute bronchiolitis due to respiratory syncytial virus; R00.0 Tachycardia, unspecified; R06.03 Acute respiratory distress; D50.9 Iron deficiency anemia, unspecified; D69.6 Thrombocytopenia, unspecified; F32.A Depression, unspecified; E87.6 Hypokalemia; E78.00 Pure hypercholesterolemia, unspecified; I10 Essential (primary) hypertension; Z86.718 Personal history of other venous thrombosis and embolism; C71.9 Malignant neoplasm of brain, unspecified; Z90.710 Acquired absence of both cervix and uterus; R06.02 Shortness of breath; Z79.01 Long term (current) use of anticoagulants; Z79.899 Other long term (current) drug therapy
CPT/HCPCS: 36415; 71045; 80048; 80053; 83880; 84145; 84484; 85025; 87040; 87070; 87150; 87186; 93005; 94640; 94667; 94668; 94761; 96365; 96366; 96375; 96376; 97163; 97165; 97530; 97535; 99285; G0378; J2920; J2930